=== PATIENT | male | born 1950 | race Caucasian/White ===

== ENCOUNTER → 2017-09-01 12:08 | Outpatient (CLI) | payer MEDICARE, SELFPAY ==
--- NOTE | 2017-09-01 12:11 | RAD_ITS ---
STUDY: X-RAY CHEST REASON FOR EXAM: Male, 66 years old. Pneumonia TECHNIQUE: PA and lateral views of the chest. COMPARISON: 05/23/2017. CT chest 07/01/2017 FINDINGS: There is a stable right subclavian approach multilead permanent pacemaker. Stable hyperinflation. There is no demonstrated pleural abnormality. Normal size heart. Normal mediastinum and paige. Normal visualized pulmonary arteries. There is atherosclerotic calcification of the aortic arch with tortuosity. There are diffuse degenerative changes of the visualized thoracic spine. Normal visualized ribs, clavicles, and shoulders. There is no demonstrated abnormality of the visualized soft tissue structures of the upper abdomen. RAD/Chest PA and Lateral IMPRESSION: No acute cardiopulmonary disease. No significant interval change. Electronically Signed: Janet Martins MD at 3:00 EST , Service support ,
== END ==
PROVIDERS: Family Provider Family Medicine; PCP Family Medicine; Visit Provider Family Medicine
DX: J18.9 Pneumonia, unspecified organism (principal)
CPT/HCPCS: 71046

== ENCOUNTER 2017-09-10 10:25 | Emergency (ER) | payer MEDICARE, SELFPAY ==
[2017-09-10 10:27] VITALS: BP 105/60; PULSE 77; RESP 16; TEMP 37.4; O2SAT 97; BMI 26.4
--- NOTE | 2017-09-10 10:47 | ED.DCSUM_ITS ---
- ER Visit Summary Date of Service: 09/10/17 Chief Complaint: Cough History of Present Illness: The patient is a 66 M who has had a cough for about a month. He states it is a mildly, occasionally productive cough. He has been seen by his PCP and urgent care for this. He has been on multiple medications. He has been on Tessalon, doxycycline, Levaquin, prednisone and promethazine. His cough still persists. He had a chest x-ray 1 week ago that was read as unremarkable. He denies a fever. He does have a history of COPD. He takes budesonide at home. He has had albuterol previously but he states it does not help. Physical Examination: Vital signs reviewed. HEENT exam unremarkable. Heart is regular rate and rhythm without murmurs. Lungs are clear to auscultation. Abdomen is soft and nontender. Extremities reveal no edema. Skin exam normal. Neurologic exam normal. Test Results: I reviewed the patient's chest x-ray from September 01 and it was unremarkable. Emergency Department Course and Treatment: Patient's lung sounds still are unremarkable. I do not feel he requires another chest x-ray. He has not had a fever. Treatment Plan: At this point I do not feel he requires any more antibiotics. I reviewed pulmonary function testing from 1 year ago. Showed very mild asthma. I will give him Mucinex D as well as a cough syrup. He can continue the Tessalon at home. He will call us on a neurologist today for follow-up. Disposition: Discharge Impression: Cough This note was generated with [employer] dictation software. It may contain incorrect words, spelling, and punctuation that were not noted in review of the chart prior to signing ED Disposition - Plan for ED Patient: Chief Complaint: Cough Referrals: Paresh Carranza MD [Primary Care Provider] -
--- NOTE | 2017-09-10 10:48 | ED.DEP ---
ED Disposition - Plan for ED Patient: Disposition: Home or Assisted Living Chief Complaint: Cough Instructions: ED Upper Resp Infec No Abx Tx Prescriptions: Guaifenesin/Pseudoephedrne HCl [Mucinex D ER 1,200-120 mg Tab] 1 ea PO BID #14 tab.er.12h Dextromethorphan HBr [Tussin Cough] 30 mg PO TID #1 syrup Referrals: Paresh Carranza MD [Primary Care Provider] -
[2017-09-10 11:10] VITALS: PULSE 78; RESP 16; O2SAT 97
== END 2017-09-10 11:10 | disposition home or self-care (01) ==
LOC: ED 10:53
PROVIDERS: Emergency Provider Emergency Medicine; Family Provider Family Medicine; PCP Family Medicine
DX: R05 Cough (principal); J44.9 Chronic obstructive pulmonary disease, unspecified; I25.10 Atherosclerotic heart disease of native coronary artery without angina pectoris; Z95.0 Presence of cardiac pacemaker
CPT/HCPCS: 99282

== ENCOUNTER → 2017-09-15 09:21 | Outpatient (CLI) | payer MEDICARE, SELFPAY ==
[2017-09-15 12:20] LABS: Absolute Lymphocyte Count 1.11 X10^3/ul (0.83-4.51); Absolute Neutrophil Count 2.2 X10^3/uL (2.0-7.7); Basophil# 0.01 X10^3/uL; Basophil% 0.3 % (0-1); Eosinophil# 0.01 X10^3/uL; Eosinophils% 0.3 % (0-5); Hematocrit 45.9 % (40-54); Lymphocyte # 1.11 X10^3/ul (4.0); Lymphocyte % 29.7 % (19-41); Mean Corp Hgb Conc 34.9 g/gl (32-36); Mean Corpuscular Hgb 32.7 pg (27.0-32.0); Mean Corpuscular Volume 93.7 fL (80-94); Mean Platelet Vol. 9.8 fl (6.2-12.0); Monocyte# 0.38 X10^3/uL; Monocyte% 10.2 % (0-10); Neutrophil # 2.22 X10^3/uL (2.7-7.7); Neutrophil % 59.2 % (47-70); Platelet Count 199 K/mm3 (150-450); RBC Distribution Width CV 14.2 % (11.6-14.6); RBC Distribution Width SD 47.1 fl (35.1-43.9); White Blood Count 3.7 K/mm3 (4.4-11.0)
[2017-09-15 12:23] LABS: POSITIVE COUNT NO; POSITIVE DIFFERENTIAL NO; POSITIVE MORPHOLOGY NO
[2017-09-15 12:28] LABS: ALB/GLOB Ratio 1.1 RATIO (0.9-2.4); AST(SGOT) 23 U/L (15-37); Alanine Aminotransfer ALT/SGPT 34 U/L (16-61); Albumin, Serum 3.7 g/dL (3.2-5.0); Alkaline Phosphatase 80 U/L (45-117); Anion Gap 7 (5-15); BUN 23 mg/dL (7-18); BUN/Creat Ratio 18.7 RATIO (10-20); Bilirubin, Direct 0.13 mg/dL (0.00-0.30); Calcium,Total 8.8 mg/dL (8.5-10.1); Chloride 102 mmol/L (98-107); Cholesterol 119 mg/dL (200); Creatinine, Serum 1.23 mg/dL (0.70-1.30); EST Glomerular Filtration Rate 62 mL/min (>60); Est Glom Filt Rate - Afr Amer 76 mL/min (>60); Globulin 3.4 g/dL (2.2-4.2); Glucose 86 mg/dL (74-106); High Density Lipoprotein 40 mg/dL; Potassium 3.8 mmol/L (3.5-5.1); Protein, Total 7.1 g/dL (6.4-8.2); Sodium Level 138 mmol/L (136-145); Triglycerides 90 mg/dL; Very Low Density Lipoprotein 18 mg/dL (5-40)
== END ==
PROVIDERS: Family Provider Family Medicine; PCP Family Medicine; Visit Provider Nurse Practitioner Family
DX: E78.5 Hyperlipidemia, unspecified (principal); Z79.899 Other long term (current) drug therapy
CPT/HCPCS: 80053; 80061; 82248; 85025

== ENCOUNTER → 2017-12-20 09:09 | Outpatient (CLI) | payer MEDICARE, SELFPAY ==
[2017-12-20 10:06] LABS: Absolute Lymphocyte Count 0.93 X10^3/ul (0.83-4.51); Absolute Neutrophil Count 3.1 X10^3/uL (2.0-7.7); Basophil# 0.02 X10^3/uL; Basophil% 0.4 % (0-1); Hematocrit 41.2 % (40-54); Hemoglobin 13.9 g/dl (13.0-16.5); Lymphocyte # 0.93 X10^3/ul (4.0); Lymphocyte % 18.9 % (19-41); Mean Corp Hgb Conc 33.7 g/gl (32-36); Mean Corpuscular Hgb 32.3 pg (27.0-32.0); Mean Corpuscular Volume 95.6 fL (80-94); Monocyte# 0.75 X10^3/uL; Monocyte% 15.2 % (0-10); Neutrophil # 3.12 X10^3/uL (2.7-7.7); Neutrophil % 63.5 % (47-70); POSITIVE COUNT NO; POSITIVE DIFFERENTIAL NO; POSITIVE MORPHOLOGY NO; Platelet Count 176 K/mm3 (150-450); RBC Distribution Width CV 15.1 % (11.6-14.6); RBC Distribution Width SD 52.1 fl (35.1-43.9); Red Blood Count 4.31 M/mm3 (4.6-6.2); White Blood Count 4.9 K/mm3 (4.4-11.0)
[2017-12-20 10:35] LABS: ALB/GLOB Ratio 1.4 RATIO (0.9-2.4); AST(SGOT) 24 U/L (15-37); Alanine Aminotransfer ALT/SGPT 25 U/L (16-61); Albumin, Serum 3.7 g/dL (3.2-5.0); Alkaline Phosphatase 72 U/L (45-117); Anion Gap 5 (5-15); BUN 16 mg/dL (7-18); BUN/Creat Ratio 14.3 RATIO (10-20); Calcium,Total 8.8 mg/dL (8.5-10.1); Chloride 106 mmol/L (98-107); Creatinine, Serum 1.12 mg/dL (0.70-1.30); EST Glomerular Filtration Rate 70 mL/min (>60); Est Glom Filt Rate - Afr Amer 84 mL/min (>60); Globulin 2.7 g/dL (2.2-4.2); Glucose 89 mg/dL (74-106); Potassium 4.3 mmol/L (3.5-5.1); Protein, Total 6.4 g/dL (6.4-8.2); Sodium Level 141 mmol/L (136-145)
== END ==
PROVIDERS: Family Provider Family Medicine; PCP Family Medicine; Visit Provider Internal Medicine Rheumatology
DX: M06.4 Inflammatory polyarthropathy (principal); M21.40 Flat foot [pes planus] (acquired), unspecified foot; M47.892 Other spondylosis, cervical region; M47.894 Other spondylosis, thoracic region; M47.897 Other spondylosis, lumbosacral region; I10 Essential (primary) hypertension; I25.10 Atherosclerotic heart disease of native coronary artery without angina pectoris; E87.5 Hyperkalemia; I48.91 Unspecified atrial fibrillation; G47.33 Obstructive sleep apnea (adult) (pediatric)
CPT/HCPCS: 36415; 80053; 85025

== ENCOUNTER → 2018-03-17 07:03 | Outpatient (CLI) | payer MEDICARE, SELFPAY ==
[2018-03-17 10:40] LABS: Absolute Lymphocyte Count 1.26 X10^3/ul (0.83-4.51); Absolute Neutrophil Count 2.5 X10^3/uL (2.0-7.7); Basophil# 0.02 X10^3/uL; Basophil% 0.5 % (0-1); Eosinophil# 0.07 X10^3/uL; Eosinophils% 1.6 % (0-5); Hematocrit 41.7 % (40-54); Hemoglobin 13.8 g/dl (13.0-16.5); Lymphocyte # 1.26 X10^3/ul (4.0); Lymphocyte % 29.2 % (19-41); Mean Corp Hgb Conc 33.1 g/gl (32-36); Mean Corpuscular Hgb 32.4 pg (27.0-32.0); Mean Corpuscular Volume 97.9 fL (80-94); Mean Platelet Vol. 9.7 fl (6.2-12.0); Monocyte# 0.42 X10^3/uL; Monocyte% 9.7 % (0-10); Neutrophil # 2.54 X10^3/uL (2.7-7.7); Platelet Count 193 K/mm3 (150-450); RBC Distribution Width CV 14.2 % (11.6-14.6); RBC Distribution Width SD 50.7 fl (35.1-43.9); Red Blood Count 4.26 M/mm3 (4.6-6.2); White Blood Count 4.3 K/mm3 (4.4-11.0)
[2018-03-17 10:47] LABS: POSITIVE COUNT NO; POSITIVE DIFFERENTIAL NO; POSITIVE MORPHOLOGY NO
[2018-03-17 10:48] LABS: ALB/GLOB Ratio 1.4 RATIO (0.9-2.4); AST(SGOT) 21 U/L (15-37); Alanine Aminotransfer ALT/SGPT 27 U/L (16-61); Albumin, Serum 3.8 g/dL (3.2-5.0); Alkaline Phosphatase 66 U/L (45-117); Anion Gap 5 (5-15); BUN 20 mg/dL (7-18); BUN/Creat Ratio 17.9 RATIO (10-20); Bilirubin, Direct 0.19 mg/dL (0.00-0.30); Calcium,Total 9.1 mg/dL (8.5-10.1); Chloride 106 mmol/L (98-107); Cholesterol 95 mg/dL (200); Creatinine, Serum 1.12 mg/dL (0.70-1.30); EST Glomerular Filtration Rate 69 mL/min (>60); Est Glom Filt Rate - Afr Amer 84 mL/min (>60); Globulin 2.7 g/dL (2.2-4.2); Glucose 85 mg/dL (74-106); High Density Lipoprotein 51 mg/dL; Potassium 4.4 mmol/L (3.5-5.1); Protein, Total 6.5 g/dL (6.4-8.2); Sodium Level 142 mmol/L (136-145); Triglycerides 51 mg/dL; Very Low Density Lipoprotein 10 mg/dL (5-40)
== END ==
PROVIDERS: Nurse Practitioner Family; Family Provider Family Medicine; PCP Family Medicine; Visit Provider Internal Medicine Rheumatology
DX: M06.4 Inflammatory polyarthropathy (principal); M21.40 Flat foot [pes planus] (acquired), unspecified foot; M47.892 Other spondylosis, cervical region; M47.894 Other spondylosis, thoracic region; M47.897 Other spondylosis, lumbosacral region; I10 Essential (primary) hypertension; I25.10 Atherosclerotic heart disease of native coronary artery without angina pectoris; E78.5 Hyperlipidemia, unspecified; I48.91 Unspecified atrial fibrillation; G47.33 Obstructive sleep apnea (adult) (pediatric)
CPT/HCPCS: 36415; 80053; 80061; 82248; 85025

== ENCOUNTER → 2018-05-07 12:42 | Outpatient (CLI) | payer MEDICARE, SELFPAY ==
--- NOTE | 2018-05-07 13:02 | EKG12_ITS ---
Test Reason : PRE OP Blood Pressure : / mmHG Vent. Rate : 060 BPM Atrial Rate : 060 BPM P-R Int : 192 ms QRS Dur : 098 ms QT Int : 386 ms P-R-T Axes : 000 046 062 degrees QTc Int : 386 ms Electronic atrial pacemaker Confirmed by ALAN AMBROSIO, HOME ([id number]), material expeditor SEJAL NULL ([id number] on 05/11/2018 2:09:11 PM Referred By: POLINA LARA Confirmed By:HOME PHILLIPS MD
[2018-05-07 13:21] LABS: Hematocrit 40.3 % (40-54)
== END ==
PROVIDERS: Family Provider Family Medicine; PCP Family Medicine
DX: I10 Essential (primary) hypertension (principal); M06.9 Rheumatoid arthritis, unspecified; Z95.0 Presence of cardiac pacemaker; J45.909 Unspecified asthma, uncomplicated
CPT/HCPCS: 36415; 85014; 85018; 93005

== ENCOUNTER → 2018-06-15 09:09 | Outpatient (CLI) | payer MEDICARE, SELFPAY ==
[2018-06-15 10:32] LABS: Absolute Lymphocyte Count 1.32 X10^3/ul (0.83-4.51); Absolute Neutrophil Count 5.4 X10^3/uL (2.0-7.7); Basophil# 0.03 X10^3/uL; Basophil% 0.4 % (0-1); Eosinophil# 0.06 X10^3/uL; Eosinophils% 0.8 % (0-5); Hematocrit 44.1 % (40-54); Hemoglobin 14.8 g/dl (13.0-16.5); Lymphocyte # 1.32 X10^3/ul (4.0); Mean Corp Hgb Conc 33.6 g/gl (32-36); Mean Corpuscular Volume 98.2 fL (80-94); Mean Platelet Vol. 9.5 fl (6.2-12.0); Monocyte# 0.98 X10^3/uL; Monocyte% 12.6 % (0-10); Neutrophil # 5.35 X10^3/uL (2.7-7.7); Neutrophil % 69.1 % (47-70); Platelet Count 214 K/mm3 (150-450); RBC Distribution Width CV 14.9 % (11.6-14.6); RBC Distribution Width SD 52.1 fl (35.1-43.9); Red Blood Count 4.49 M/mm3 (4.6-6.2); White Blood Count 7.8 K/mm3 (4.4-11.0)
[2018-06-15 10:40] LABS: POSITIVE COUNT NO; POSITIVE DIFFERENTIAL NO; POSITIVE MORPHOLOGY NO
[2018-06-15 10:56] LABS: ALB/GLOB Ratio 1.3 RATIO (0.9-2.4); AST(SGOT) 17 U/L (15-37); Alanine Aminotransfer ALT/SGPT 26 U/L (16-61); Albumin, Serum 3.7 g/dL (3.2-5.0); Alkaline Phosphatase 72 U/L (45-117); Anion Gap 8 (5-15); BUN 26 mg/dL (7-18); BUN/Creat Ratio 22.6 RATIO (10-20); Calcium,Total 9.2 mg/dL (8.5-10.1); Chloride 103 mmol/L (98-107); Creatinine, Serum 1.15 mg/dL (0.70-1.30); EST Glomerular Filtration Rate 67 mL/min (>60); Est Glom Filt Rate - Afr Amer 81 mL/min (>60); Globulin 2.9 g/dL (2.2-4.2); Glucose 88 mg/dL (74-106); Potassium 4.3 mmol/L (3.5-5.1); Protein, Total 6.6 g/dL (6.4-8.2); Sodium Level 141 mmol/L (136-145)
== END ==
PROVIDERS: Family Provider Family Medicine; PCP Family Medicine; Referring Provider Internal Medicine Rheumatology; Visit Provider Internal Medicine Rheumatology
DX: M06.4 Inflammatory polyarthropathy (principal); M21.40 Flat foot [pes planus] (acquired), unspecified foot; M47.892 Other spondylosis, cervical region; M47.894 Other spondylosis, thoracic region; M47.897 Other spondylosis, lumbosacral region; I10 Essential (primary) hypertension; I25.10 Atherosclerotic heart disease of native coronary artery without angina pectoris; E78.5 Hyperlipidemia, unspecified; I48.91 Unspecified atrial fibrillation; G47.33 Obstructive sleep apnea (adult) (pediatric)
CPT/HCPCS: 36415; 80053; 85025

== ENCOUNTER → 2018-09-17 10:56 | Outpatient (CLI) | payer MEDICARE, SELFPAY ==
[2018-08-20 14:24] VITALS: BMI 24.7
[2018-09-17 12:25] LABS: Absolute Lymphocyte Count 1.17 X10^3/ul (0.83-4.51); Absolute Neutrophil Count 2.8 X10^3/uL (2.0-7.7); Basophil# 0.01 X10^3/uL; Basophil% 0.2 % (0-1); Eosinophil# 0.02 X10^3/uL; Eosinophils% 0.4 % (0-5); Hematocrit 45.7 % (40-54); Hemoglobin 15.2 g/dl (13.0-16.5); Lymphocyte # 1.17 X10^3/ul (4.0); Lymphocyte % 25.5 % (19-41); Mean Corp Hgb Conc 33.3 g/gl (32-36); Mean Corpuscular Hgb 32.5 pg (27.0-32.0); Mean Corpuscular Volume 97.9 fL (80-94); Mean Platelet Vol. 9.6 fl (6.2-12.0); Monocyte# 0.61 X10^3/uL; Monocyte% 13.3 % (0-10); Neutrophil # 2.76 X10^3/uL (2.7-7.7); Neutrophil % 60.4 % (47-70); POSITIVE COUNT NO; POSITIVE DIFFERENTIAL NO; POSITIVE MORPHOLOGY NO; Platelet Count 199 K/mm3 (150-450); RBC Distribution Width CV 14.1 % (11.6-14.6); RBC Distribution Width SD 49.3 fl (35.1-43.9); Red Blood Count 4.67 M/mm3 (4.6-6.2); White Blood Count 4.6 K/mm3 (4.4-11.0)
[2018-09-17 12:50] LABS: ALB/GLOB Ratio 1.2 RATIO (0.9-2.4); AST(SGOT) 20 U/L (15-37); Alanine Aminotransfer ALT/SGPT 24 U/L (16-61); Albumin, Serum 3.6 g/dL (3.2-5.0); Alkaline Phosphatase 82 U/L (45-117); BUN 21 mg/dL (7-18); BUN/Creat Ratio 18.1 RATIO (10-20); Cholesterol 106 mg/dL (200); Creatinine, Serum 1.16 mg/dL (0.70-1.30); EST Glomerular Filtration Rate 67 mL/min (>60); Est Glom Filt Rate - Afr Amer 81 mL/min (>60); Globulin 3.1 g/dL (2.2-4.2); Glucose 84 mg/dL (74-106); Protein, Total 6.7 g/dL (6.4-8.2); Sodium Level 142 mmol/L (136-145); Triglycerides 75 mg/dL
[2018-09-17 12:51] LABS: Anion Gap 8 (5-15); Chloride 106 mmol/L (98-107); High Density Lipoprotein 43 mg/dL; Potassium 4.2 mmol/L (3.5-5.1); Very Low Density Lipoprotein 15 mg/dL (5-40)
== END ==
PROVIDERS: Nurse Practitioner Family; Family Provider Family Medicine; PCP Family Medicine; Referring Provider Internal Medicine Rheumatology; Visit Provider Internal Medicine Rheumatology
DX: M06.4 Inflammatory polyarthropathy (principal); M21.40 Flat foot [pes planus] (acquired), unspecified foot; M47.892 Other spondylosis, cervical region; M47.894 Other spondylosis, thoracic region; M47.897 Other spondylosis, lumbosacral region; I10 Essential (primary) hypertension; I25.10 Atherosclerotic heart disease of native coronary artery without angina pectoris; E78.5 Hyperlipidemia, unspecified; I48.91 Unspecified atrial fibrillation; G47.33 Obstructive sleep apnea (adult) (pediatric)
CPT/HCPCS: 80053; 80061; 82248; 85025

== ENCOUNTER 2018-09-26 13:40 | Emergency (ER) | payer MEDICARE, SELFPAY ==
[2018-08-20 14:24] VITALS: BMI 24.7
[2018-09-26 13:41] VITALS: BP 137/82; PULSE 60; RESP 16; TEMP 36.8; O2SAT 97; BMI 25.6
--- NOTE | 2018-09-26 13:58 | CT_ITS ---
STUDY: CT BRAIN WITHOUT CONTRAST REASON FOR EXAM: Male, 68 years old. Fell yesterday hitting head, patient takes Xarelto, positive loss of consciousness, bruising around both eyes RADIATION DOSAGE (If Supplied By Facility): CTDIvol = ( 44.99 ) mGy, DLP = ( 748.30 ) mGycm TECHNIQUE: Transaxial CT imaging of the brain was performed without administration of intravenous contrast material. Individualized dose optimization techniques were used for this CT. COMPARISON: 09/12/2015 FINDINGS: Right more than left periorbital soft tissue swelling extends into the frontal scalp. Normal calvarium. Normal size ventricles and extra-axial spaces for the patient's age. Normal white matter tracts of the cerebral hemispheres. Normal basal ganglia and thalami. Normal brainstem. Normal cerebellum. There is no intracranial hemorrhage. There are no findings of an acute ischemic infarction. Mild amount of mucosal thickening of the right maxillary sinus. No air-fluid levels. Atherosclerosis of the bilateral carotid siphons noted. CT/Brain/Head without Contrast IMPRESSION: 1. No acute intracranial hemorrhage or mass effect. 2. Frontal scalp and periorbital (right more than left) soft tissue swelling. No underlying fracture seen. Electronically Signed: Mick Watkins MD at 14:21 EST , Service support ,
--- NOTE | 2018-09-26 14:40 | ED.DCSUM_ITS ---
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 Patient was in his normal state of health. He does have history of atrial fibrillation and is status post pacemaker placement. He is fully anticoagulated on Xarelto. He states yesterday morning, he got up to let his dogs out. He states that he was going back through his garage and the dog ran after skunk. He lost his balance and fell forward. He struck his right forehead against the cement ground. He is unsure if he lost consciousness. He states that he had a large hematoma on his forehead, and overnight it has moved to around his eyes. He denies visual change. He denies any nausea or vomiting. He denies any weakness, numbness, tingling. Physical Examination: Vital signs reviewed General: Well-nourished, well-developed Head: Normocephalic, ecchymosis over the right forehead Eyes: Pupils equal and reactive, extraocular muscles intact, periorbital ecchymosis without evidence of entrapment. No hyphema. Neck, supple, no lymphadenopathy Heart: Regular rate and rhythm Respiratory: No distress, clear bilaterally Abdomen: Soft, nontender, nondistended, no peritoneal signs Back: Nontender Extremities: Nontender, no edema, no cords Skin: Normal color no rash Neuro: Alert and oriented, no focal or lateralizing deficits Test Results: [] Emergency Department Course and Treatment: The patient presents to the emergency department greater than 24 hours after mechanical fall. He does have periorbital ecchymosis, but no evidence of midface trauma, nasal septal hematoma, or hemotympanum. Patient underwent CT of his head. There is the periorbital ecchymosis, but no acute intracranial abnormalities. The patient did fall greater than 24 hours ago now has a normal head CT. I do feel he is safe for outpatient therapy. He will continue Tylenol and ice. He was counseled on concerning symptoms and reasons to return. He will be discharged home. Treatment Plan: [] Disposition: Discharge Impression: 1. Facial contusion status post fall This note was generated with [employer] software. It may contain incorrect words, spelling, and punctuation that were not noted in review of the chart prior to signing ED Disposition - Plan for ED Patient: Instructions: ED Contusion Face Referrals: Paresh Carranza MD [Primary Care Provider] -
[2018-09-26 14:47] VITALS: BP 137/76; PULSE 60; RESP 15; O2SAT 99
== END 2018-09-26 14:47 | disposition home or self-care (01) ==
LOC: ED 14:43
PROVIDERS: Emergency Provider Emergency Medicine; Family Provider Family Medicine; PCP Family Medicine
DX: S00.83XA Contusion of other part of head, initial encounter (principal); W01.0XXA Fall on same level from slipping, tripping and stumbling without subsequent striking against object, initial encounter; Y93.89 Activity, other specified; Y92.59 Other trade areas as the place of occurrence of the external cause; Y99.9 Unspecified external cause status; I48.91 Unspecified atrial fibrillation; Z95.0 Presence of cardiac pacemaker; Z79.01 Long term (current) use of anticoagulants; I25.10 Atherosclerotic heart disease of native coronary artery without angina pectoris; Z86.73 Personal history of transient ischemic attack (TIA), and cerebral infarction without residual deficits
CPT/HCPCS: 70450; 99282

== ENCOUNTER → 2018-12-08 09:45 | Outpatient (CLI) | payer MEDICARE, SELFPAY ==
[2018-06-24 08:31] VITALS: BMI 24.5
[2018-11-16 14:12] VITALS: BMI 25.2
--- NOTE | 2018-12-09 10:59 | PFT ---
INTRODUCTION: The patient is a 68-year-old male that presents for pulmonary function studies secondary to a diagnosis of shortness of breath. Respiratory therapy reports good patient effort. Bronchodilators were used during testing. INTERPRETATION: Forced expiration spirometry demonstrates no evidence of a large airways obstructive ventilatory defect. There was no significant response to aerosolized bronchodilators. Spirograms are of good quality and do not plateau indicating slow emptying of the lungs. Body plethysmography was performed and reveals lung volumes to be within normal limits. Diffusing capacity by single breath CO is also within normal limits. IMPRESSION: Essentially normal pulmonary function studies.
== END ==
PROVIDERS: Family Provider Family Medicine; PCP Family Medicine; Referring Provider Nurse Practitioner Acute Care; Visit Provider Nurse Practitioner Acute Care
DX: J45.909 Unspecified asthma, uncomplicated (principal)
CPT/HCPCS: 94060; 94726; 94729

== ENCOUNTER → 2018-12-15 09:02 | Outpatient (CLI) | payer MEDICARE, SELFPAY ==
[2018-11-16 14:12] VITALS: BMI 25.2
[2018-12-15 10:14] LABS: Absolute Lymphocyte Count 1.21 X10^3/ul (0.83-4.51); Absolute Neutrophil Count 3.4 X10^3/uL (2.0-7.7); Basophil# 0.03 X10^3/uL; Basophil% 0.6 % (0-1); Eosinophil# 0.04 X10^3/uL; Eosinophils% 0.8 % (0-5); Hematocrit 43.4 % (40-54); Hemoglobin 14.6 g/dl (13.0-16.5); Lymphocyte # 1.21 X10^3/ul (4.0); Lymphocyte % 23.8 % (19-41); Mean Corp Hgb Conc 33.6 g/gl (32-36); Mean Corpuscular Hgb 32.1 pg (27.0-32.0); Mean Corpuscular Volume 95.4 fL (80-94); Mean Platelet Vol. 9.4 fl (6.2-12.0); Monocyte# 0.42 X10^3/uL; Monocyte% 8.3 % (0-10); Neutrophil # 3.38 X10^3/uL (2.7-7.7); Neutrophil % 66.3 % (47-70); Platelet Count 212 K/mm3 (150-450); RBC Distribution Width CV 14.4 % (11.6-14.6); RBC Distribution Width SD 48.7 fl (35.1-43.9); Red Blood Count 4.55 M/mm3 (4.6-6.2); White Blood Count 5.1 K/mm3 (4.4-11.0)
[2018-12-15 10:24] LABS: POSITIVE COUNT NO; POSITIVE DIFFERENTIAL NO; POSITIVE MORPHOLOGY NO
[2018-12-15 10:40] LABS: ALB/GLOB Ratio 1.5 RATIO (0.9-2.4); AST(SGOT) 22 U/L (15-37); Alanine Aminotransfer ALT/SGPT 25 U/L (16-61); Albumin, Serum 3.7 g/dL (3.2-5.0); Alkaline Phosphatase 68 U/L (45-117); Anion Gap 3 (5-15); BUN 16 mg/dL (7-18); BUN/Creat Ratio 13.4 RATIO (10-20); Calcium,Total 8.8 mg/dL (8.5-10.1); Chloride 105 mmol/L (98-107); Creatinine, Serum 1.19 mg/dL (0.70-1.30); EST Glomerular Filtration Rate 65 mL/min (>60); Est Glom Filt Rate - Afr Amer 78 mL/min (>60); Globulin 2.5 g/dL (2.2-4.2); Glucose 96 mg/dL (74-106); Potassium 4.5 mmol/L (3.5-5.1); Protein, Total 6.2 g/dL (6.4-8.2); Sodium Level 139 mmol/L (136-145)
== END ==
PROVIDERS: Family Provider Family Medicine; PCP Family Medicine; Referring Provider Internal Medicine Rheumatology; Visit Provider Internal Medicine Rheumatology
DX: M06.4 Inflammatory polyarthropathy (principal); M21.40 Flat foot [pes planus] (acquired), unspecified foot; M47.892 Other spondylosis, cervical region; M47.894 Other spondylosis, thoracic region; M47.897 Other spondylosis, lumbosacral region; I10 Essential (primary) hypertension; I25.10 Atherosclerotic heart disease of native coronary artery without angina pectoris; E78.5 Hyperlipidemia, unspecified; I48.91 Unspecified atrial fibrillation; G47.33 Obstructive sleep apnea (adult) (pediatric)
CPT/HCPCS: 36415; 80053; 85025

== ENCOUNTER → 2018-12-24 07:47 | Outpatient (CLI) | payer MEDICARE, SELFPAY ==
[2018-11-16 14:12] VITALS: BMI 25.2
[2018-12-15 09:50] VITALS: BMI 25.7
--- NOTE | 2018-12-24 07:48 | ECHOD_ITS ---
Reason For Study: CAD/ASHD Procedure This was a 2D Doppler, Color Flow transthoracic echocardiogram. 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 Exam performed in department. Left Ventricle Normal size and thickness. The estimated ejection fraction is 75 %. Stage 1 diastolic dysfunction. No regional wall motion abnormalities noted. Right Ventricle Normal size and thickness. ICD or pacer leads identified within the right ventricle. Normal systolic function. Atria Normal left atrium. Normal right atrium. Normal atrial septum. Mitral Valve The mitral valve is structurally normal. No prolapse or stenosis seen. Tricuspid Valve Normal tricuspid valve. Trivial tricuspid valve insufficiency. Right ventricular systolic pressure estimated to be 25 mmHg. Aortic Valve Trisinus/trileaflet aortic valve. Mild diffuse aortic valve thickening. There is no aortic stenosis. Pulmonic Valve Normal pulmonic valve. Great Vessels Normal aortic root. Normal arch. Normal inferior vena cava. Inferior vena cava collapse with sniff. Pericardium/Pleural No pericardial effusion. MMode/2D Measurements & Calculations LVIDd: 4.2 cm IVSd: 1.1 cm Ao root diam: 3.7 cm LVIDs: 2.3 cm LVPWd: 1.0 cm RVDd: 3.8 cm FS: 45.5 % LAV(MOD-bp): 45.8 ml LA A4 area: 18.1 cm2 RA A4 area: 13.8 cm2 LAV(MOD-bp) Indexed: 24.0 ml/m2 LAV(MOD-sp2): 42.4 ml LAV(MOD-sp4): 49.9 ml Time Measurements MV dec time: 0.22 sec Doppler Measurements & Calculations MV E max luis: 71.7 cm/sec Lat Peak E' Luis: 10.1 cm/sec Med Peak E' Luis: 9.8 cm/sec MV A max luis: 85.7 cm/sec E/E' lat: 7.1 E/E' med: 7.3 MV E/A: 0.84 MV V2 max: 106.9 cm/sec MV P1/2t max luis: 86.7 cm/sec Ao V2 max: 113.9 cm/sec MV max P.6 mmHg MV P1/2t: 98.6 msec Ao max P.2 mmHg MV V2 mean: 53.2 cm/sec MV dec slope: 257.3 cm/sec2 Ao V2 mean: 72.9 cm/sec MV mean P.4 mmHg MVA(P1/2t): 2.2 cm2 Ao mean P.4 mmHg MV V2 VTI: 34.4 cm Ao V2 VTI: 24.1 cm LV V1 max: 102.6 cm/sec PA V2 max: 98.2 cm/sec TR max luis: 220.6 cm/sec LV V1 max P.2 mmHg TR max P.5 mmHg LV V1 mean P.7 mmHg LV V1 mean: 57.9 cm/sec LV V1 VTI: 23.3 cm Interpretation Summary The estimated ejection fraction is 75 %. Stage 1 diastolic dysfunction. Trivial tricuspid valve insufficiency. Right ventricular systolic pressure estimated to be 25 mmHg. Compared to echo report dated 07/15/2013, no appreciable changes noted. Ordering Physician: Syd Hollingsworth Referring Physician: Syd Hollingsworth Performed By: José Miguel Boggs RCS
== END ==
PROVIDERS: Family Provider Family Medicine; PCP Family Medicine; Referring Provider Internal Medicine Cardiovascular Disease; Visit Provider Internal Medicine Cardiovascular Disease
DX: I25.10 Atherosclerotic heart disease of native coronary artery without angina pectoris (principal); I25.2 Old myocardial infarction; Z95.5 Presence of coronary angioplasty implant and graft; I48.0 Paroxysmal atrial fibrillation; I49.5 Sick sinus syndrome
CPT/HCPCS: 93306

== ENCOUNTER → 2018-12-29 09:50 | Outpatient (CLI) | payer MEDICARE, SELFPAY ==
[2018-11-16 14:12] VITALS: BMI 25.2
[2018-12-15 09:50] VITALS: BMI 25.7
--- NOTE | 2018-12-29 09:52 | STE_ITS ---
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 Stress Echo Wall motion Data Resting WM Intermediate WM Stress WM Resting Wall Motion Wall Motion Stress No regional wall motion No regional wall motion abnormalities noted. abnormalities noted. EKG Data The baseline ECG displays normal sinus rhythm. The patient exercised according to the regular John protocol for a total duration of 9:45. The maximum heart rate attained was 136 beats per minute. This was 89% of maximum predicted heart rate. The patient exercised into stage 4 of the John protocol. During stress, there were no ST or T wave changes noted to suggest ischemia. No clinical angina was noted. No arrhythmias noted. Interpretation Summary The estimated ejection fraction is 65 %. Normal, adequate, treadmill echocardiogram. Negative for ischemia by EKG and echocardiographic criteria. No anginal symptoms noted. No arrhythmias noted. Appropriate blood pressure response to exercise. Average exercise capacity for age. Test terminated due to target heart rate achieved and leg discomfort. No complications. Final LVEF is 75%. Ordering Physician: Syd Hollingsworth MD Referring Physician: Syd Hollingsworth Performed By: Adrienne Anderson RDCS
== END ==
PROVIDERS: Family Provider Family Medicine; PCP Family Medicine; Referring Provider Internal Medicine Cardiovascular Disease; Visit Provider Internal Medicine Cardiovascular Disease
DX: I25.10 Atherosclerotic heart disease of native coronary artery without angina pectoris (principal); I49.5 Sick sinus syndrome; I48.0 Paroxysmal atrial fibrillation; Z95.0 Presence of cardiac pacemaker; I25.2 Old myocardial infarction; Z95.5 Presence of coronary angioplasty implant and graft
CPT/HCPCS: 93017; 93350; 98960; G0463

== ENCOUNTER → 2019-03-20 09:03 | Outpatient (CLI) | payer MEDICARE, OTHER, SELFPAY ==
[2018-12-15 09:50] VITALS: BMI 25.7
[2019-03-20 10:20] LABS: Absolute Lymphocyte Count 1.23 X10^3/uL (0.83-4.51); Absolute Neutrophil Count 4.7 X10^3/uL (2.0-7.7); Basophil# 0.03 X10^3/uL; Basophil% 0.4 % (0-1); Eosinophil# 0.06 X10^3/uL; Eosinophils% 0.9 % (0-5); Hematocrit 45.1 % (40-54); Lymphocyte # 1.23 X10^3/ul (4.0); Lymphocyte % 17.8 % (19-41); Mean Corp Hgb Conc 33.3 g/dL (32-36); Mean Corpuscular Hgb 32.5 pg (27.0-32.0); Mean Corpuscular Volume 97.6 fL (80-94); Mean Platelet Vol. 9.3 fl (6.2-12.0); Monocyte# 0.87 X10^3/uL; Monocyte% 12.6 % (0-10); NRBC Flagged by Analyzer 0 % (0-5); Platelet Count 211 K/mm3 (150-450); RBC Distribution Width CV 14.6 % (11.6-14.6); RBC Distribution Width SD 51.9 fl (35.1-43.9); Red Blood Count 4.62 M/mm3 (4.6-6.2); White Blood Count 6.9 K/mm3 (4.4-11.0)
[2019-03-20 10:43] LABS: ALB/GLOB Ratio 1.3 RATIO (0.9-2.4); AST(SGOT) 22 U/L (15-37); Alanine Aminotransfer ALT/SGPT 23 U/L (16-61); Albumin, Serum 3.8 g/dL (3.2-5.0); Alkaline Phosphatase 77 U/L (45-117); Anion Gap 5 (5-15); BUN 22 mg/dL (7-18); BUN/Creat Ratio 18.2 RATIO (10-20); Bilirubin, Direct 0.23 mg/dL (0.00-0.30); Chloride 106 mmol/L (98-107); Cholesterol 117 mg/dL (200); Creatinine, Serum 1.21 mg/dL (0.70-1.30); EST Glomerular Filtration Rate 63 mL/min (>60); Est Glom Filt Rate - Afr Amer 77 mL/min (>60); Glucose 81 mg/dL (74-106); High Density Lipoprotein 58 mg/dL; Potassium 4.5 mmol/L (3.5-5.1); Protein, Total 6.8 g/dL (6.4-8.2); Sodium Level 142 mmol/L (136-145); Triglycerides 46 mg/dL; Very Low Density Lipoprotein 9 mg/dL (5-40)
== END ==
PROVIDERS: Nurse Practitioner Family; Family Provider Family Medicine; PCP Family Medicine; Referring Provider Internal Medicine Rheumatology; Visit Provider Internal Medicine Rheumatology
DX: I10 Essential (primary) hypertension (principal); I25.10 Atherosclerotic heart disease of native coronary artery without angina pectoris; Z95.5 Presence of coronary angioplasty implant and graft
CPT/HCPCS: 36415; 80053; 80061; 82248; 85025

== ENCOUNTER → 2019-06-15 09:43 | Outpatient (CLI) | payer MEDICARE, OTHER, SELFPAY ==
[2019-06-15 08:02] VITALS: BMI 26.6
[2019-06-15 10:17] LABS: Absolute Lymphocyte Count 1.39 X10^3/uL (0.83-4.51); Absolute Neutrophil Count 5.8 X10^3/uL (2.0-7.7); Basophil# 0.04 X10^3/uL; Basophil% 0.5 % (0-1); Eosinophil# 0.02 X10^3/uL; Eosinophils% 0.3 % (0-5); Hematocrit 46.5 % (40-54); Hemoglobin 15.4 g/dL (13.0-16.5); Lymphocyte # 1.39 X10^3/ul (4.0); Lymphocyte % 17.9 % (19-41); Mean Corp Hgb Conc 33.1 g/dL (32-36); Mean Corpuscular Hgb 32.8 pg (27.0-32.0); Mean Corpuscular Volume 99.1 fL (80-94); Mean Platelet Vol. 9.6 fl (6.2-12.0); Monocyte# 0.49 X10^3/uL; Monocyte% 6.3 % (0-10); NRBC Flagged by Analyzer 0 % (0-5); Neutrophil # 5.81 X10^3/uL (2.7-7.7); Neutrophil % 74.7 % (47-70); Platelet Count 233 K/mm3 (150-450); RBC Distribution Width CV 15.3 % (11.6-14.6); RBC Distribution Width SD 56.4 fl (35.1-43.9); Red Blood Count 4.69 M/mm3 (4.6-6.2); White Blood Count 7.8 K/mm3 (4.4-11.0)
[2019-06-15 10:43] LABS: ALB/GLOB Ratio 1.2 RATIO (0.9-2.4); AST(SGOT) 21 U/L (15-37); Alanine Aminotransfer ALT/SGPT 28 U/L (16-61); Albumin, Serum 3.9 g/dL (3.2-5.0); Alkaline Phosphatase 72 U/L (45-117); Anion Gap 6 (5-15); BUN 21 mg/dL (7-18); BUN/Creat Ratio 16.5 RATIO (10-20); Calcium,Total 9.2 mg/dL (8.5-10.1); Chloride 104 mmol/L (98-107); Creatinine, Serum 1.27 mg/dL (0.70-1.30); EST Glomerular Filtration Rate 60 mL/min (>60); Est Glom Filt Rate - Afr Amer 72 mL/min (>60); Globulin 3.2 g/dL (2.2-4.2); Glucose 95 mg/dL (74-106); Potassium 4.2 mmol/L (3.5-5.1); Protein, Total 7.1 g/dL (6.4-8.2); Sodium Level 140 mmol/L (136-145)
== END ==
PROVIDERS: Family Provider Family Medicine; PCP Family Medicine; Referring Provider Internal Medicine Rheumatology; Visit Provider Internal Medicine Rheumatology
DX: M06.4 Inflammatory polyarthropathy (principal); M21.40 Flat foot [pes planus] (acquired), unspecified foot; M47.892 Other spondylosis, cervical region; M47.894 Other spondylosis, thoracic region; M47.897 Other spondylosis, lumbosacral region; I10 Essential (primary) hypertension; I25.10 Atherosclerotic heart disease of native coronary artery without angina pectoris; E78.5 Hyperlipidemia, unspecified; I48.91 Unspecified atrial fibrillation; G47.33 Obstructive sleep apnea (adult) (pediatric)
CPT/HCPCS: 36415; 80053; 85025

== ENCOUNTER → 2019-06-30 10:31 | Outpatient (CLI) | payer MEDICARE, OTHER, SELFPAY ==
[2019-06-29 09:25] VITALS: BMI 26.6
--- NOTE | 2019-06-30 10:37 | RAD_ITS ---
STUDY: X-RAY - THORACIC SPINE REASON FOR EXAM: Male, 68 years old. TECHNIQUE: view(s) of the thoracic spine were obtained. COMPARISON: None. FINDINGS: Normal kyphosis of the thoracic spine. There is no substantial scoliosis. Normal thoracic vertebrae and endplates. Normal disc space heights. Moderate hypertrophic changes seen anterior aspect of the mid dorsal vertebral bodies. The soft tissue structures are unremarkable. RAD/Thoracic Spine 3 Views IMPRESSION: Normal x-ray examination of the thoracic spine. Electronically Signed: Dwight Ambrose, at 14:57 EST Tel , Service support ,
--- NOTE | 2019-06-30 10:40 | RAD_ITS ---
STUDY: X-RAY - CERVICAL SPINE REASON FOR EXAM: Male, 68 years old. TECHNIQUE: 4 view(s) of the cervical spine were obtained. COMPARISON: None FINDINGS: The vertebral bodies are of normal height. There is narrowing of the intervertebral discs between C3-4, C5-6 and C6-7, the disc is maintained at the level of C4-5. The facet joints and spinous processes are intact except of mild arthropathy of the facet joint at C2-3. The prevertebral space and air column are unremarkable. Calcification of ligamentum of Nuchii is present. Impression Mild narrowing of the disc space with the C3-4, C5-6 and C6-7 Electronically Signed: Dwight Ambrose, at 13:18 EST Tel , Service support , RAD/Cerv Spine 2 or 3 Views
--- NOTE | 2019-06-30 10:40 | RAD_ITS ---
STUDY: X-RAY - LUMBAR SPINE REASON FOR EXAM: Male, 68 years old. TECHNIQUE: 3 view(s) of the lumbar spine were obtained. COMPARISON: None FINDINGS: Normal lumbar lordosis. There is no substantial scoliosis. There is a normal alignment of the vertebrae. Normal vertebral bodies and endplates. Normal disc space heights. There is evidence of fluid spinal fusion with interpedicular screws between L4-L5 with disc spacer in between. There is a right. Minutes bone grafting seen. Laminectomy is present at the level of L4. The soft tissue structures are unremarkable. RAD/Lumbar Spine 2 or 3 Views IMPRESSION: Normal x-ray examination of the lumbar spine except for hardware transfixing the spine between L4-5 with interpedicular screws and disc spacer associated with laminectomy at L4.. Electronically Signed: Dwight Ambrose, at 14:55 EST Tel , Service support ,
== END ==
PROVIDERS: Family Provider Family Medicine; PCP Family Medicine; Referring Provider Anesthesiology Pain Medicine; Visit Provider Anesthesiology Pain Medicine
DX: M54.2 Cervicalgia (principal); M54.9 Dorsalgia, unspecified
CPT/HCPCS: 72040; 72072; 72100

== ENCOUNTER 2019-07-29 14:04 | Inpatient (IN) | payer MEDICARE, OTHER, SELFPAY ==
[2019-06-29 09:25] VITALS: BMI 26.6
[2019-07-29] VITALS (7 sets, daily range): BP systolic 112–152; BP diastolic 68–87; PULSE 83–91; RESP 16–20; TEMP 37.1–37.6; O2SAT 95–99; BMI 26.4; BMI 25.5; BMI 25.6
--- NOTE | 2019-07-29 14:55 | RAD_ITS ---
STUDY: X-RAY CHEST REASON FOR EXAM: Male, 68 years old. Chest pain/pressure with nausea and vomiting. TECHNIQUE: Single frontal view of the chest. COMPARISON: September 01, 2017 FINDINGS: Stable mild hyperexpansion. There is no demonstrated pleural abnormality. Mild cardiomegaly with dual lead cardiac pacer unchanged. Normal mediastinum and paige. Normal visualized pulmonary arteries. Normal visualized aortic arch and descending thoracic aorta. Normal visualized thoracic spine. Normal visualized ribs, clavicles, and shoulders. There is no demonstrated abnormality of the visualized soft tissue structures of the upper abdomen. RAD/Chest 1 View (Portable) IMPRESSION: Stable chest with no acute superimposed finding. Electronically Signed: Polo Manzanares MD at 15:25 EST , Service support ,
--- NOTE | 2019-07-29 14:55 | EKG12_ITS ---
Test Reason : CP Blood Pressure : / mmHG Vent. Rate : 081 BPM Atrial Rate : 081 BPM P-R Int : 184 ms QRS Dur : 100 ms QT Int : 350 ms P-R-T Axes : 055 -05 055 degrees QTc Int : 406 ms Normal sinus rhythm Incomplete right bundle branch block Borderline ECG Confirmed by POLINA HERNANDEZ ([id number]), purchasing expeditor SEJAL NULL ([id number]) on 08/03/2019 3:03:37 PM Referred By: Jefferson Adair Confirmed By:POLINA HERNANDEZ
[2019-07-29] MEDS: Aspirin 81 MG TAB.CHEW 324 MG PO (15:09)
--- NOTE | 2019-07-29 15:09 | ED.DCSUM_ITS ---
History of Present Illness Chief Complaint: Chest Pain Informant: Patient Onset: Weeks - 1 week Context: Gradual Onset Timing: Waxes and wanes Current Severity: Mild Maximum Severity: Moderate Narrative: Patient presents with a one-week history of chest pressure. He states he has taken nitroglycerin 3 separate days in the past week. 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 Patient states that he feels like he has intermittent episodes of heart racing. He has a history of paroxysmal A. fib and is currently on Cardizem. He states his dose of Cardizem was increased about a month ago secondary to these frequent palpitations, but he is continued to have symptoms. He also complains of having some abdominal pressure with nausea and vomiting today. He states his abdomen feels bloated and he believes he is gained about 10 pounds in the last 2 months. He does report dyspnea with exertion. He believes his last stress test was in January of this year. He does have one prior cardiac stent that was placed in 2012. - Past Medical History (1) Asthma Status: Chronic (2) Atherosclerosis of coronary artery of [place] heart without angina pectoris Status: Chronic Comment: PCI-MELL-LAD (3) History of coronary artery stent placement Status: Chronic Comment: PCI-MELL-LAD (4) Hypertension Status: Chronic (5) BRANDON (obstructive sleep apnea) Status: Chronic Comment: CPAP 10 cm of water (6) Old myocardial infarction Status: Chronic (7) Paroxysmal atrial fibrillation Status: Chronic (8) Presence of cardiac pacemaker Status: Chronic (9) Rheumatoid arthritis Status: Chronic (10) Sick sinus syndrome Status: Chronic Past Medical History - Allergies and Home Meds Allergies/Adverse Reactions: Allergies Sulfa (Sulfonamide Antibiotics) Allergy (Mild, Verified 07/29/19 14:07) Rash clopidogrel [From Plavix] Adverse Reaction (Severe, Verified 07/29/19 14:07) Other - genetic nonresponder, needs brillinta metoprolol [From Lopressor] Adverse Reaction (Mild, Verified 07/29/19 14:07) - bronchospasm nystatin Adverse Reaction (Unknown, Verified 07/29/19 14:07) Unknown MEDICAL TAPE Adverse Reaction (Uncoded 07/29/19 14:07) Itching Primary Care Physician: Paresh Carranza MD [Primary Care Provider] - Doctors: Dr. Hollingsworth Prior records reviewed: Yes Surgical History: herniorrhaphy Lives: Spouse/ Significant Other Smoking Status: Never smoker Review of Systems General: Reports: Sweats. Denies: Chills Eyes: Denies: Visual changes - bilaterally ENT: Denies: Bilateral ear pain Cardiovascular: Reports: Chest pain, Palpitations Respiratory: Reports: Dyspnea. Denies: Cough Gastrointestinal: Reports: Abdominal pain, Nausea, Vomiting. Denies: Diarrhea Genitourinary: Denies: Dysuria Musculoskeletal: Denies: Back pain, Extremity Pain Skin: Denies: Rash Neurological: Denies: Headache Hematologic: Denies: Easy bruising, Easy bleeding Allergy: Denies: Uticaria Physical Exam Vital Signs/Narrative: Vital Signs Temp Pulse Resp BP Pulse Ox 07/29/19 14:05 98.8 F 83 16 136/81 H 97 Inital Vital Signs reviewed: Yes General: Well nourished, Well developed Head: Normocephalic ENT: Moist mucous membranes Neck: Supple Cardiovascular: Regular rate, Regular rhythm Respiratory: No distress, CTA bilaterally Abdomen: Soft, Nontender Extremities: Nontender Skin: Normal color, No rash Neurological: Alert, Oriented x3 Psychological: Normal affect Diagnostic/Tx/Re-eval Impressions Chest X-Ray 07/29/19 14:55 IMPRESSION: Stable chest with no acute superimposed finding. Electronically Signed: Polo Manzanares MD at 15:25 EST , Service support , 07/29/19 14:55 Chest 1 View (Portable) [RAD] Stat Laboratory Results 07/29/19 07/29/19 14:05 14:05 WBC 10.1 RBC 4.87 Hgb 16.2 Hct 47.7 MCV 97.9 H MCH 33.3 H MCHC 34.0 RDW Std Deviation 51.4 H RDW Coeff of Jessica 14.4 Plt Count 241 MPV 9.2 Immature Gran % (Auto) 0.400 Neut % (Auto) 88.3 H Lymph % (Auto) 4.2 L [place] % (Auto) 6.1 Eos % (Auto) 0.7 Baso % (Auto) 0.3 Absolute Neuts (auto) 8.9 H Absolute Lymphs (auto) 0.42 L Nucleated RBC % 0 Platelet Estimate ADEQUATE RBC Morphology NORM C+C Sodium 141 Potassium 4.2 Chloride 106 Carbon Dioxide 30.0 Anion Gap 5 BUN 30 H Creatinine 1.23 Estim Creat Clear Calc 57.48 Est GFR (MDRD) Af Amer 75 Est GFR (MDRD) Non-Af 62 BUN/Creatinine Ratio 24.4 H Glucose 133 H Calcium 9.3 Troponin I < 0.015 - EKG Initial EKG Interpretation: Sinus Rhythm - Sinus 81 with incomplete right bundle branch block. No acute ischemia. - Medical Decision Making Aspirin per chest pain protocol. On repeat evaluation he is resting comfortably. He was advised that I work and chest x-ray at this time is unremarkable. 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 Abdomen exam remains rather benign with no focal area of tenderness. Repeated abdominal exams will be needed. I will speak with hospitalist. ED Disposition - Plan for ED Patient: Disposition: Acute Care Hospital [facility] Diagnosis: Chest pain Referrals: Paresh Carranza MD [Primary Care Provider] -
[2019-07-29 15:16] LABS: Absolute Lymphocyte Count 0.42 X10^3/uL (0.83-4.51); Absolute Neutrophil Count 8.9 X10^3/uL (2.0-7.7); Basophil# 0.03 X10^3/uL; Basophil% 0.3 % (0-1); Differential Indicated SCAN CRITERIA MET; Eosinophil# 0.07 X10^3/uL; Eosinophils% 0.7 % (0-5); Hematocrit 47.7 % (40-54); Hemoglobin 16.2 g/dL (13.0-16.5); Lymphocyte # 0.42 X10^3/ul (4.0); Lymphocyte % 4.2 % (19-41); Mean Corpuscular Hgb 33.3 pg (27.0-32.0); Mean Corpuscular Volume 97.9 fL (80-94); Mean Platelet Vol. 9.2 fl (6.2-12.0); Monocyte# 0.61 X10^3/uL; Monocyte% 6.1 % (0-10); NRBC Flagged by Analyzer 0 % (0-5); Neutrophil # 8.89 X10^3/uL (2.7-7.7); Neutrophil % 88.3 % (47-70); POSITIVE DIFFERENTIAL YES; Platelet Count 241 K/mm3 (150-450); RBC Distribution Width CV 14.4 % (11.6-14.6); RBC Distribution Width SD 51.4 fl (35.1-43.9); Red Blood Count 4.87 M/mm3 (4.6-6.2); White Blood Count 10.1 K/mm3 (4.4-11.0)
[2019-07-29 15:19] LABS: BUN 30 mg/dL (7-18); Creatinine, Serum 1.23 mg/dL (0.70-1.30); EST Glomerular Filtration Rate 62 mL/min (>60); Estimated Creatinine Clearance 57.48 ml/min; Glucose 133 mg/dL (74-106)
[2019-07-29 15:20] LABS: Anion Gap 5 (5-15); BUN/Creat Ratio 24.4 RATIO (10-20); Calcium,Total 9.3 mg/dL (8.5-10.1); Chloride 106 mmol/L (98-107); Est Glom Filt Rate - Afr Amer 75 mL/min (>60); Potassium 4.2 mmol/L (3.5-5.1); Sodium Level 141 mmol/L (136-145)
[2019-07-29 15:47] LABS: Platelet Estimate ADEQUATE (ADEQ); Red Cell Morphology NORM C+C NORMAL (NORM C&C)
--- NOTE | 2019-07-29 17:48 | PCM.HP.STD ---
History of Present Illness Date of Admission: 07/29/19 Chief Complaint: Chest pain with pressure The patient is a 68 year old M with a PMH as below who presents with 1 week of worsening chest pain. He states that it started about 2 months ago and it is fairly constant in nature though does change in intensity. He has had to take nitroglycerin on 3 separate days this past week, and he says it did help with the pain a little bit. 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 Also associated with this, for about the last 2 months he is also been having abdominal pain with bloating that is intermittent as well as a 10 pound weight gain. He had some nausea and vomiting today though he has not noticed any changes in his bowel habits. He also has noticed some dyspnea on exertion and does not think that he would be able to do an exercise stress test like he was able to in January. He also reports nighttime urinary incontinence with 2 episodes in the last 2 months, he denies any dysuria or frequency. And he also has night sweats which started over the last couple of weeks. In the ER lab work was unremarkable with a normal troponin and normal white count, vital signs are stable with no fever, chest x-ray was unremarkable. 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) Medical History: Medical History (Last Reviewed 07/22/19 @ 09:42 by Tashia Cedeno) Sick sinus syndrome (Chronic) I49.5 Paroxysmal atrial fibrillation (Chronic) I48.0 Old myocardial infarction (Chronic) I25.2 Atherosclerosis of coronary artery of [place] heart without angina pectoris (Chronic) I25.10 PCI-MELL-LAD Hypertension (Chronic) I10 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) M50.221 Arthritis M19.90 Asthma J45.909 Axillary mass R22.30 BPH (benign prostatic hyperplasia) N40.0 CVA (cerebral vascular accident) I63.9 Carotid artery stenosis I65.29 DDD (degenerative disc disease) HLD (hyperlipidemia) E78.5 Obstructive sleep apnea G47.33 Shortness of breath R06.02 Sinus bradycardia R00.1 TIA (transient ischemic attack) G45.9 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 Allergies Sulfa (Sulfonamide Antibiotics) Allergy (Mild, Verified 07/29/19 14:07) Rash clopidogrel [From Plavix] Adverse Reaction (Severe, Verified 07/29/19 14:07) Other - genetic nonresponder, needs brillinta metoprolol [From Lopressor] Adverse Reaction (Mild, Verified 07/29/19 14:07) - bronchospasm nystatin Adverse Reaction (Unknown, Verified 07/29/19 14:07) Unknown MEDICAL TAPE Adverse Reaction (Uncoded 07/29/19 14:07) Itching Home Medications: Ambulatory Orders Medication Instructions Recorded duloxetine 20 mg capsule,delayed 20 mg PO DAILY cap 06/24/18 release nitroglycerin 0.4 mg sublingual 0.4 mg SUBLINGUAL Q5M PRN #25 tab 02/11/19 tablet diltiazem HCl 180 mg 180 mg PO DAILY #90 cap 06/10/19 capsule,extended release 24 hr methotrexate sodium 2.5 mg tablet 15 mg PO SA tab 06/10/19 rosuvastatin 20 mg tablet 20 mg PO DAILY #90 tab 06/10/19 ramipril 5 mg capsule 5 mg PO DAILY #90 cap 07/09/19 rivaroxaban 20 mg tablet 20 mg PO DAILY #30 tab 07/26/19 Aspirin E.C. [Ecotrin] 81 mg PO DAILY@1800 07/29/19 Folic Acid 2 mg PO DAILY 07/29/19 Surgical History: Surgical History (Last Reviewed 07/22/19 @ 09:42 by Tashia Cedeno) Presence of cardiac pacemaker (Chronic) Onset Date: ~12/08/12 Z95.0 History of coronary artery stent placement (Chronic) Onset Date: ~07/23/13 Z95.5 PCI-MELL-LAD H/O eye surgery Z98.890 for droopy eyelid 05/2018 History of herniorrhaphy Z98.890, Z87.19 History of left heart catheterization Onset Date: ~08/22/16 Z98.890 History of spinal surgery Z98.890 2014 Surgical History: herniorrhaphy Lives: Spouse/ Significant Other Smoking Status: Never smoker Alcohol: None Drugs: None - *Family History Maternal Family History: Family History (Last Reviewed 07/22/19 @ 09:42 by Tashia Cedeno) Brother CVA (cerebral vascular accident) Carotid artery stenosis Father CVA (cerebral vascular accident) Carotid artery stenosis Mother Stomach cancer Review of Systems Constitutional: Reports: Night Sweats, Weight Change - 10 pound weight gain. Denies: Chills, Fever HEENT: Denies: Head Aches, Sinus Congestion, Sinus Drainage Cardiovascular: Reports: Chest Pain, Chest Pressure. Denies: Palpitations Respiratory: Reports: Shortness of breath upon exertion. Denies: Cough, Shortness of breath at rest, Sputum production Gastrointestinal: Denies: Abdominal Pain, Nausea, Vomiting Genitourinary: Reports: Nocturia. Denies: Dysuria, Frequency Musculoskeletal: Denies: Joint Pain, Joint Tenderness Skin: Denies: Rash, Wounds Neurological: Denies: Numbness, Tingling, Focal weakness Psychiatric: Denies: Anxiety, Depression Hematologic/ Lymphatic: Denies: Easy Bruising, Easy Bleeding VTE Information - Inpt Only VTE Present on Admission: No Patient Problems: Active and Suspected Problems (Last Reviewed 07/22/19 @ 09:42 by Tashia Cedeno) Chest pain (Acute) - Physical Exam Vitals/I&O's: Vital Signs Temp Pulse Resp BP Pulse Ox 99.3 F H 88 16 152/87 H 97 07/29/19 17:11 07/29/19 17:11 07/29/19 17:11 07/29/19 17:11 07/29/19 17:11 Oxygen Delivery Method Room Air Weight: 173 lb 1.006 oz Body Mass Index (BMI) 25.5 General: Alert, Oriented x3, Cooperative, No apparent distress HEENT: Atraumatic, PERRLA, EOMI, Normocephalic Oral: Moist Mucosa Neck: Supple, No JVD Lungs: Clear to auscultation, Normal air movement, No rhonchi, No wheeze, No rales Cardiovascular: Regular rate, Regular Rhythm, Normal S1, Normal S2, No murmurs Abdomen: Soft, Non-Distended, No Hepato-splenomegaly, Tender - Dull achy tenderness in bilateral lower abdomen Extremities: No edema, Capillary Refill Less than 3 Seconds Skin: No rashes, No breakdown Neurological: Neuro grossly intact, Sensory exam intact to light touch and pain Psych/Mental Status: Normal Affect, Appropriate Laboratory Results 07/29/19 14:05: WBC 10.1, RBC 4.87, Hgb 16.2, Hct 47.7, MCV 97.9 H, MCH 33.3 H, MCHC 34.0, RDW Std Deviation 51.4 H, RDW Coeff of Jessica 14.4, Plt Count 241, MPV 9.2, Immature Gran % (Auto) 0.400, Neut % (Auto) 88.3 H, Lymph % (Auto) 4.2 L, [place] % (Auto) 6.1, Eos % (Auto) 0.7, Baso % (Auto) 0.3, Absolute Neuts (auto) 8.9 H, Absolute Lymphs (auto) 0.42 L, Nucleated RBC % 0, Platelet Estimate ADEQUATE, RBC Morphology NORM C+C 07/29/19 14:05: Sodium 141, Potassium 4.2, Chloride 106, Carbon Dioxide 30.0, Anion Gap 5, BUN 30 H, Creatinine 1.23, Estim Creat Clear Calc 57.48, Est GFR (MDRD) Af Amer 75, Est GFR (MDRD) Non-Af 62, BUN/Creatinine Ratio 24.4 H, Glucose 133 H, Calcium 9.3, Troponin I < 0.015 Current Medications Aspirin (Ecotrin) 81 mg PO DAILY@1800 [facility] Diltiazem HCl (Cardizem Cd) 180 mg PO DAILY [facility] Duloxetine HCl (Cymbalta) 20 mg PO DAILY [facility] Folic Acid (Folic Acid) 2 mg PO DAILY [facility] Methotrexate (Methotrexate) 15 mg PO SA [facility] Nitroglycerin (Nitrostat) 0.4 mg SUBLINGUAL Q5M PRN PRN Reason: CARDIAC/CHEST PAIN Non-Formulary Medication (Rosuvastatin Calcium) 20 mg PO DAILY [facility] Ramipril (Altace) 5 mg PO DAILY [facility] Rivaroxaban (Xarelto) 20 mg PO DAILY [facility] Sodium Chloride () 10 - 40 ml IV UD PRN PRN Reason: SALINE FLUSH Assessment/Plan All Active Problems (Last Reviewed 07/22/19 @ 09:42 by Tashia Cedeno) Chest pain (Acute) Candidiasis of mouth (Acute) Segmental and somatic dysfunction of cervical region (Acute) Segmental and somatic dysfunction of thoracic region (Acute) Segmental and somatic dysfunction of lumbar region (Acute) 1. Chest pain/CAD status post stent/WPW syndrome/sick sinus syndrome/HTN/HLD/A. fib -Has a pacemaker in place and is on Xarelto -We will consult cardiology, continue with aspirin -Will obtain serial troponin, stress echo in December was unremarkable -2D echo in December with an EF of 75% and stage I diastolic dysfunction -We will continue with ramipril, Crestor, and Cardizem 2. Depression -Stable -Continue with Cymbalta 3. Night sweats/nocturia/abdominal bloating -Unsure at the moment as to these constellation of symptoms -We will start with a KUB to evaluate his abdomen and his eyes his cardiac evaluation is negative may need to further investigate these with a CT scan of his abdomen and pelvis DVT: Xarelto Code Visit OBSV E&M: 80043 Initial observation care L3
--- NOTE | 2019-07-29 18:00 | RAD_ITS ---
STUDY: X-RAY - ABDOMEN/PELVIS REASON FOR EXAM: Male, 68 years old. Abdominal bloating. Chest pain. TECHNIQUE: AP supine and upright views of the abdomen and pelvis. COMPARISON: None. FINDINGS: Normal visualized lung bases. Pacer leads are seen in the heart. There are air-fluid levels within the colon without marked distention. No small bowel dilatation is noted. There is no demonstrated free abdominal air. The visualized liver, spleen and kidneys are grossly normal in size and morphology. Normal soft tissue structures. There is posterior fusion of L4-5. RAD/Abd Inc Decub and/or Erect IMPRESSION: Nonspecific bowel gas pattern without obvious obstruction. Electronically Signed: Filippo Johns DO at 20:44 EST Tel [phone], Service support ,
[2019-07-29] MEDS: DULoxetine Hcl 20 MG Capsule PO (18:37)
[2019-07-29] MEDS: Rivaroxaban 20 MG Tablet PO (18:37)
[2019-07-29] MEDS: Acetaminophen 325 MG Tablet 650 MG PO (21:36)
[2019-07-29] MEDS: Atorvastatin Calcium 40 MG Tablet PO (21:36)
[2019-07-30] VITALS (9 sets, daily range): BP systolic 104–138; BP diastolic 64–83; PULSE 60–89; RESP 15–16; TEMP 36.4–37.1; O2SAT 95–98
--- NOTE | 2019-07-30 05:46 | EKG12_ITS ---
Test Reason : CP ADMISSION Blood Pressure : / mmHG Vent. Rate : 087 BPM Atrial Rate : 087 BPM P-R Int : 186 ms QRS Dur : 104 ms QT Int : 324 ms P-R-T Axes : 043 002 042 degrees QTc Int : 389 ms Normal sinus rhythm Normal ECG When compared with ECG of 29-JUL-2019 14:07, MANUAL COMPARISON REQUIRED, DATA IS UNCONFIRMED Confirmed by POLINA HERNANDEZ ([id number]), photograph editor SEJAL NULL ([id number]) on 08/03/2019 3:12:14 PM Referred By: Jefferson Adair Confirmed By:POLINA HERNANDEZ
[2019-07-30 06:05] LABS: Absolute Lymphocyte Count 0.44 X10^3/uL (0.83-4.51); Absolute Neutrophil Count 6.1 X10^3/uL (2.0-7.7); Basophil# 0.02 X10^3/uL; Basophil% 0.3 % (0-1); Eosinophil# 0.03 X10^3/uL; Eosinophils% 0.4 % (0-5); Hematocrit 45.7 % (40-54); Hemoglobin 15.5 g/dL (13.0-16.5); Lymphocyte # 0.44 X10^3/ul (4.0); Mean Corp Hgb Conc 33.9 g/dL (32-36); Mean Corpuscular Hgb 32.6 pg (27.0-32.0); Monocyte# 0.75 X10^3/uL; Monocyte% 10.1 % (0-10); NRBC Flagged by Analyzer 0 % (0-5); Neutrophil # 6.13 X10^3/uL (2.7-7.7); Neutrophil % 82.9 % (47-70); POSITIVE DIFFERENTIAL YES; Platelet Count 199 K/mm3 (150-450); RBC Distribution Width CV 14.6 % (11.6-14.6); RBC Distribution Width SD 50.9 fl (35.1-43.9); Red Blood Count 4.76 M/mm3 (4.6-6.2); White Blood Count 7.4 K/mm3 (4.4-11.0)
[2019-07-30 06:37] LABS: Anion Gap 5 (5-15); BUN 28 mg/dL (7-18); BUN/Creat Ratio 25.2 RATIO (10-20); Calcium,Total 8.6 mg/dL (8.5-10.1); Chloride 104 mmol/L (98-107); Creatinine, Serum 1.11 mg/dL (0.70-1.30); EST Glomerular Filtration Rate 70 mL/min (>60); Est Glom Filt Rate - Afr Amer 85 mL/min (>60); Estimated Creatinine Clearance 63.69 ml/min; Glucose 109 mg/dL (74-106); Magnesium 1.8 mg/dL (1.6-2.6); Phosphorus 3.7 mg/dL (2.5-4.9); Potassium 3.9 mmol/L (3.5-5.1); Sodium Level 137 mmol/L (136-145); Thyroid Stim Hormone (TSH) 1.39 uIU/mL (0.358-3.74)
[2019-07-30 07:08] LABS: Differential Indicated SCAN CRITERIA MET
[2019-07-30] MEDS: Folic Acid 1 MG Tablet 2 MG PO (09:51)
[2019-07-30] MEDS: DULoxetine Hcl 20 MG Capsule PO (09:51)
[2019-07-30] MEDS: Ramipril 5 MG Capsule PO (09:51)
[2019-07-30] MEDS: dilTIAZem CD 180 MG Capsule PO (09:51)
--- NOTE | 2019-07-30 12:41 | CON.PCM_ITS ---
<Amisha Thompson M - Last Filed: 07/30/19 12:41> Problem List (1) Chest pain Status: Acute (2) Presence of cardiac pacemaker Status: Chronic (3) Paroxysmal atrial fibrillation Status: Chronic (4) Atherosclerosis of coronary artery of [place] heart without angina pectoris Status: Chronic Comment: PCI-MELL-LAD Reason for Consult Date of Consultation: 07/30/19 History of Present Illness: This is a 68-year-old gentleman that presented to the emergency room on July 29, 2019 with worsening chest discomfort and palpitations. Patient states that over the last 10 days he has noted that he has been more short of breath and has had more chest discomfort. He also has noted an increase in palpitations. He states that on Friday he did need to take 3 nitroglycerin pills to help with his chest discomfort. This was while he was a passenger in a car. He also states that during this time he noted his heart rate being irregular where he noted his heart rate is approximately 1 40-1 50. He is also concerned with some bloating that he has had. He states that his weight has gone up at home. It is difficult to get a timeframe on this. He does not have any lightheadedness or dizziness. He does not have any swelling in his ankles. He does not have any orthopnea. He does have a history of coronary artery disease with stenting to his LAD at [facility] in 2013. He also has a history of hypertension, hyperlipidemia, paroxysmal atrial fibrillation, Igvii-Xgjuowtgk-Fcsby, sick sinus syndrome requiring a pacemaker placement. Patient had previously been on flecainide for his atrial fibrillation however this was discontinued after he had a genomic evaluation from a outside physician and this medication was noted to be one that he did not tolerate. He was last seen in our office in June 2019. He had a stress echocardiogram in December 2018 which demonstrated an ejection fraction of 65%. Normal adequate treadmill echocardiogram. Negative for ischemia by EKG and echocardiographic criteria. Echocardiogram in December 2018 demonstrated an ejection fraction of 75% with stage I diastolic dysfunction. Past Medical History Allergies/Adverse Reactions: Allergies Sulfa (Sulfonamide Antibiotics) Allergy (Mild, Verified 07/29/19 14:07) Rash clopidogrel [From Plavix] Adverse Reaction (Severe, Verified 07/29/19 14:07) Other - genetic nonresponder, needs brillinta metoprolol [From Lopressor] Adverse Reaction (Mild, Verified 07/29/19 14:07) - bronchospasm nystatin Adverse Reaction (Unknown, Verified 07/29/19 14:07) Unknown MEDICAL TAPE Adverse Reaction (Uncoded 07/29/19 14:07) Itching Home Medications: Ambulatory Orders Medication Instructions Recorded duloxetine 20 mg capsule,delayed 20 mg PO DAILY cap 06/24/18 release nitroglycerin 0.4 mg sublingual 0.4 mg SUBLINGUAL Q5M PRN #25 tab 02/11/19 tablet diltiazem HCl 180 mg 180 mg PO DAILY #90 cap 06/10/19 capsule,extended release 24 hr methotrexate sodium 2.5 mg tablet 15 mg PO SA tab 06/10/19 rosuvastatin 20 mg tablet 20 mg PO DAILY #90 tab 06/10/19 ramipril 5 mg capsule 5 mg PO DAILY #90 cap 07/09/19 rivaroxaban 20 mg tablet 20 mg PO DAILY #30 tab 07/26/19 Aspirin E.C. [Ecotrin] 81 mg PO DAILY@1800 07/29/19 Folic Acid 2 mg PO DAILY 07/29/19 Past Medical History (Chronic Problems): Chronic Problems (Last Reviewed 07/22/19 @ 09:42 by Tashia Cedeno) Rheumatoid arthritis (Chronic) BRANDON (obstructive sleep apnea) (Chronic) CPAP 10 cm of water Asthma (Chronic) Presence of cardiac pacemaker (Chronic ~12/08/12) Sick sinus syndrome (Chronic) Paroxysmal atrial fibrillation (Chronic) Old myocardial infarction (Chronic) History of coronary artery stent placement (Chronic ~07/23/13) PCI-MELL-LAD Atherosclerosis of coronary artery of [place] heart without angina pectoris (Chronic) PCI-MELL-LAD Hypertension (Chronic) 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 Denies: Fever, Fatigue HEENT: Denies: Vision Change, Blurred Vision Cardiovascular: Reports: Chest Discomfort, Chest Discomfort at Rest, Shortness of Breath, Palpitations. Denies: Shortness of Breath at Rest, Shortness of Breath with Exertion, Orthopnea, Peripheral Edema Respiratory: Denies: Cough Gastrointestinal: Reports: Nausea, - - bloating. Denies: Indigestion Genitourinary: Denies: Dysuria, Hematuria Muscoloskeletal: Denies: Myalgias Skin: Denies: Rash Neurological: Denies: Dizziness, Vertigo Objective: Vital Signs Temp Pulse Resp BP Pulse Ox 97.6 F L 82 16 138/83 H 95 07/30/19 09:47 07/30/19 09:47 07/30/19 09:47 07/30/19 09:47 07/30/19 09:47 Oxygen Delivery Method Room Air Weight: 173 lb 1.006 oz Body Mass Index (BMI) 25.5 Intake and Output for Last 24 Hours 07/28/19 07/29/19 07/30/19 23:59 23:59 23:59 Intake Total 240 / 240 360 / 360 Balance 240 / 240 360 / 360 General: Healthy Appearing, Awake, Alert, Oriented x 3, Cooperative HEENT: Atraumatic, Normocephalic, PERRL, EOMI Oral: Moist Mucosa Neck: Supple, Good ROM, No Lymph Node Enlargement Lungs: Clear to auscultation Cardiovascular: Regular Rhythm, Normal S1, Normal S2, No Murmurs, No Rubs, No Gallops Vascular: No Carotid Bruits, Normal Posterior Tibial Pulses Abdomen: Bowel Sounds Present, Soft, Non Tender, No Organomegaly Extremities: No Cyanosis, No Clubbing, No edema Neurological: No Focal Motor or Sensory Deficit, CN II-XII Intact Psych/Mental Status: Appropriate, Normal Affect 07/29/19 14:05: WBC 10.1, RBC 4.87, Hgb 16.2, Hct 47.7, MCV 97.9 H, MCH 33.3 H, MCHC 34.0, Plt Count 241, MPV 9.2, Immature Gran % (Auto) 0.400, Neut % (Auto) 88.3 H, Lymph % (Auto) 4.2 L, [place] % (Auto) 6.1, Eos % (Auto) 0.7, Baso % (Auto) 0.3, Absolute Neuts (auto) 8.9 H, Nucleated RBC % 0 07/29/19 14:05: Sodium 141, Potassium 4.2, Chloride 106, Carbon Dioxide 30.0, Anion Gap 5, BUN 30 H, Creatinine 1.23, Est GFR (MDRD) Af Amer 75, Est GFR (MDRD) Non-Af 62, BUN/Creatinine Ratio 24.4 H, Glucose 133 H, Calcium 9.3, Troponin I < 0.015 07/29/19 18:19: Troponin I < 0.015 07/29/19 21:03: Troponin I < 0.015 07/30/19 05:48: WBC 7.4, RBC 4.76, Hgb 15.5, Hct 45.7, MCV 96.0 H, MCH 32.6 H, MCHC 33.9, Plt Count 199, MPV 9.0, Immature Gran % (Auto) 0.300, Neut % (Auto) 82.9 H, Lymph % (Auto) 6.0 L, [place] % (Auto) 10.1 H, Eos % (Auto) 0.4, Baso % (Auto) 0.3, Absolute Neuts (auto) 6.1, Nucleated RBC % 0 07/30/19 05:48: Sodium 137, Potassium 3.9, Chloride 104, Carbon Dioxide 28.0, Anion Gap 5, BUN 28 H, Creatinine 1.11, Est GFR (MDRD) Af Amer 85, Est GFR (MDRD) Non-Af 70, BUN/Creatinine Ratio 25.2 H, Glucose 109 H, Calcium 8.6, Phosphorus 3.7, Magnesium 1.8 Rhythm: EKG: ECHO: Stress Test: Cardiac Cath: PCI: CT Surgery: Holter monitor: EPS: PPM: CXR: Stable chest with no acute superimposed finding. Chest CT Scan: Assessment/Plan 1. Chest discomfort with known coronary artery disease: Patient's troponins were negative x3, however he does have known coronary artery disease and had a recent stress echocardiogram in December 2018 which was negative for ischemia. With his chest discomfort would like to proceed with a diagnostic heart catheterization. In order to do this during his hospital stay as he is on Xarelto will need to hold his Xarelto for a few days and proceed with a heart catheterization likely on Friday. He will continue with his aspirin, and statin. 2. Paroxysmal atrial fibrillation: Patient's pacemaker was interrogated today. He did have episodes of atrial fibrillation that does correlate with the dates of his symptoms. Would like to start him on amiodarone. Hopefully this will help with his paroxysms of atrial fibrillation. As we are proceeding with a diagnostic heart catheterization his Xarelto will need to be placed on hold. Patient will continue with his current dose of Cardizem. Will adjust if need be. 3. Hypertension: Patient's blood pressure is controlled. He will continue with his PHU inhibitor and calcium channel elza. 4. Hyperlipidemia: Patient will continue with his current statin. This is managed on an outpatient basis. His case was discussed with Dr. Hollingsworth, he agrees with plan of care. <Syd Hollingsworth - Last Filed: 07/30/19 14:05> Problem List (1) Chest pain Status: Acute (2) BRANDON (obstructive sleep apnea) Status: Chronic Comment: CPAP 10 cm of water (3) Sick sinus syndrome Status: Chronic (4) Paroxysmal atrial fibrillation Status: Chronic (5) Old myocardial infarction Status: Chronic (6) History of coronary artery stent placement Status: Chronic Comment: PCI-MELL-LAD (7) Atherosclerosis of coronary artery of [place] heart without angina pectoris Status: Chronic Comment: PCI-MELL-LAD Reason for Consult History of Present Illness: The patient is a 68 year old M, patient of [employer], seen and examined in consultation in collaboration with Amisha Thompson. Patient apparently is had several episodes of severe substernal chest pressure, similar to his previous anginal symptoms prior to his angioplasty, which coincide apparently with rapid atrial fibrillation as discovered by interrogation of his pacemaker. Nonetheless his last catheterization was in 2017. Thankfully his troponins have been negative. He remains in normal sinus rhythm at this time. [] Past Medical History - *Family History Maternal Family History: Family History (Last Reviewed 07/22/19 @ 09:42 by Tashia Cedeno) Brother CVA (cerebral vascular accident) Carotid artery stenosis Father CVA (cerebral vascular accident) Carotid artery stenosis Mother Stomach cancer Subjectve: Patient sitting in bed, no acute distress. Objective: Vital Signs Temp Pulse Resp BP Pulse Ox 97.6 F L 82 16 138/83 H 95 07/30/19 09:47 07/30/19 09:47 07/30/19 09:47 07/30/19 09:47 07/30/19 09:47 Oxygen Delivery Method Room Air Weight: 173 lb 1.006 oz Body Mass Index (BMI) 25.5 Intake and Output for Last 24 Hours 07/28/19 07/29/19 07/30/19 23:59 23:59 23:59 Intake Total 240 / 240 360 / 360 Balance 240 / 240 360 / 360 07/29/19 14:05: WBC 10.1, RBC 4.87, Hgb 16.2, Hct 47.7, MCV 97.9 H, MCH 33.3 H, MCHC 34.0, Plt Count 241, MPV 9.2, Immature Gran % (Auto) 0.400, Neut % (Auto) 88.3 H, Lymph % (Auto) 4.2 L, [place] % (Auto) 6.1, Eos % (Auto) 0.7, Baso % (Auto) 0.3, Absolute Neuts (auto) 8.9 H, Nucleated RBC % 0 07/29/19 14:05: Sodium 141, Potassium 4.2, Chloride 106, Carbon Dioxide 30.0, Anion Gap 5, BUN 30 H, Creatinine 1.23, Est GFR (MDRD) Af Amer 75, Est GFR (MDRD) Non-Af 62, BUN/Creatinine Ratio 24.4 H, Glucose 133 H, Calcium 9.3, Troponin I < 0.015 07/29/19 18:19: Troponin I < 0.015 07/29/19 21:03: Troponin I < 0.015 07/30/19 05:48: WBC 7.4, RBC 4.76, Hgb 15.5, Hct 45.7, MCV 96.0 H, MCH 32.6 H, MCHC 33.9, Plt Count 199, MPV 9.0, Immature Gran % (Auto) 0.300, Neut % (Auto) 82.9 H, Lymph % (Auto) 6.0 L, [place] % (Auto) 10.1 H, Eos % (Auto) 0.4, Baso % (Auto) 0.3, Absolute Neuts (auto) 6.1, Nucleated RBC % 0 07/30/19 05:48: Sodium 137, Potassium 3.9, Chloride 104, Carbon Dioxide 28.0, Anion Gap 5, BUN 28 H, Creatinine 1.11, Est GFR (MDRD) Af Amer 85, Est GFR (MDRD) Non-Af 70, BUN/Creatinine Ratio 25.2 H, Glucose 109 H, Calcium 8.6, Phosphorus 3.7, Magnesium 1.8 Rhythm: EKG: ECHO: Stress Test: Cardiac Cath: PCI: CT Surgery: Holter monitor: EPS: PPM: CXR: Chest CT Scan: Assessment/Plan Patient seen and examined in conjunction with Amisha Thompson. Interrogation of his pacemaker discovered that his symptoms coincided with rapid atrial fibri llation which self terminated. 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 He will be loaded with Brilinta 180 mg p.o. x1 now followed by 90 mg p.o. twice daily as he is unable to take Plavix therapy. If he has no significant coronary [place] disease that require intervention we will discontinue his Brilinta, and switch him back to Xarelto. In addition I recommended we start him on amiodarone 400 mg p.o. twice daily for 3 days, followed by 2 mg daily, in conjunction with his Cardizem. Unfortunately is unable to take beta-blockers due to his history of bronchospasm . We will restart his Xarelto after his catheterization in his groin is stable. I talked to the patient in the past about possible atrial fibrillation ablation therapy, but he wishes to hold off on this for this time. Should the patient have breakthrough atrial fibrillation despite amiodarone treatment, he may require atrial fibrillation ablation consultation. Thank you very much for the opportunity to participate in the cardiac care of your patient. Consultation time took place between 12 PM and 12:30 PM. Code Visit Inpatient E&M: 98835 In Hosp L2
[2019-07-30] MEDS: TICAGRELOR 90 MG TABLET 180 MG PO (13:41)
--- NOTE | 2019-07-30 16:09 | PN_ITS ---
Patient Problems: Active and Suspected Problems (Last Reviewed 07/22/19 @ 09:42 by Tashia Cedeno) Chest pain (Acute) Subjective: Seen and examined today, I talked with cardiology about his care, cardiology interrogated his pacemaker and found the patient was going in and out of atrial fibrillation. Cardiology recommended the patient be placed on amiodarone and undergo heart catheterization on 08/02/2019. Patient's cardiac enzymes have remained normal. Patient has no complaints of any chest pain or shortness of breath at this time. - Physical Exam Vitals/I&O's: Vital Signs Temp Pulse Resp BP Pulse Ox 98.1 F 60 16 115/69 95 07/30/19 15:45 07/30/19 15:45 07/30/19 15:45 07/30/19 15:45 07/30/19 15:45 Oxygen Delivery Method Room Air Weight: 78.5 kg Body Mass Index (BMI) 25.5 Intake and Output for Last 24 Hours 07/28/19 07/29/19 07/30/19 23:59 23:59 23:59 Intake Total 240 / 240 360 / 360 Balance 240 / 240 360 / 360 General: Alert, Oriented x3, Cooperative, No apparent distress, Well developed, Well nourished HEENT: Atraumatic, PERRLA, EOMI, Normocephalic Oral: Moist Mucosa Neck: Supple, Trachea Midline, Thyroid Normal Size and Texture Lungs: Clear to auscultation, Normal air movement, No rhonchi, No wheeze, No rales Cardiovascular: Regular rate, Regular Rhythm, Normal S1, Normal S2, No murmurs, PMI Normal, No rub noted Abdomen: Bowel Sounds Present, Soft, Non Tender, Non-Distended Extremities: No clubbing, No cyanosis, No edema, Capillary Refill Less than 3 Seconds Skin: No rashes, No breakdown Musculoskeletal: No Tenderness to Palpation of Joints or Extremities, No Muscle Wasting Neurological: Cranial nerves II-XII grossly intact, Neuro grossly intact, Sensory exam intact to light touch and pain, Coordination normal Psych/Mental Status: Normal Affect, Appropriate, Alert and oriented to time, place, person, mood and affect Laboratory Results 07/29/19 18:19: Troponin I < 0.015 07/29/19 21:03: Troponin I < 0.015 07/30/19 05:48: WBC 7.4, RBC 4.76, Hgb 15.5, Hct 45.7, MCV 96.0 H, MCH 32.6 H, MCHC 33.9, RDW Std Deviation 50.9 H, RDW Coeff of Jessica 14.6, Plt Count 199, MPV 9.0, Immature Gran % (Auto) 0.300, Neut % (Auto) 82.9 H, Lymph % (Auto) 6.0 L, Ogle % (Auto) 10.1 H, Eos % (Auto) 0.4, Baso % (Auto) 0.3, Absolute Neuts (auto) 6.1, Absolute Lymphs (auto) 0.44 L, Nucleated RBC % 0 07/30/19 05:48: Sodium 137, Potassium 3.9, Chloride 104, Carbon Dioxide 28.0, Anion Gap 5, BUN 28 H, Creatinine 1.11, Estim Creat Clear Calc 63.69, Est GFR (MDRD) Af Amer 85, Est GFR (MDRD) Non-Af 70, BUN/Creatinine Ratio 25.2 H, Glucose 109 H, Calcium 8.6, Phosphorus 3.7, Magnesium 1.8, TSH 1.39 Current Medications Acetaminophen (Tylenol) 650 mg PO Q6H PRN PRN PRN Reason: Pain Score 1-10/10 Last Admin: 07/29/19 21:36 Dose: 650 mg Documented by: Amiodarone HCl (Cordarone) 400 mg PO BID [facility] Stop: 08/02/19 10:00 Aspirin (Ecotrin) 81 mg PO DAILY@1800 [facility] Last Admin: 07/29/19 18:26 Dose: Not Given Documented by: Atorvastatin Calcium (Lipitor) 40 mg PO QHS [facility] Last Admin: 07/29/19 21:36 Dose: 40 mg Documented by: Diltiazem HCl (Cardizem Cd) 180 mg PO DAILY [facility] Last Admin: 07/30/19 09:51 Dose: 180 mg Documented by: Duloxetine HCl (Cymbalta) 20 mg PO DAILY [facility] Last Admin: 07/30/19 09:51 Dose: 20 mg Documented by: [facility] ([facility]) [facility] Last Admin: 07/30/19 09:51 Dose: 2 mg Documented by: Methotrexate (Methotrexate) 15 mg PO [facility] Nitroglycerin (Nitrostat) 0.4 mg SUBLINGUAL Q5M PRN PRN Reason: CARDIAC/CHEST PAIN Nutritional Formula (Lactose Free) (Ensure Enlive) 120 ml PO 4X/DAY [facility] Last Admin: 07/30/19 13:41 Dose: 120 ml Documented by: Ramipril (Altace) 5 mg PO DAILY [facility] Last Admin: 07/30/19 09:51 Dose: 5 mg Documented by: Sodium Chloride () 10 - 40 ml IV UD PRN PRN Reason: SALINE FLUSH Ticagrelor (Brilinta) 90 mg PO BID [facility] Medical Necessity - Tobacco Use Smoking Status: Never smoker Assessment/Plan All Active Problems (Last Reviewed 07/22/19 @ 09:42 by Tashia Cedeno) Chest pain (Acute) Candidiasis of mouth (Acute) Segmental and somatic dysfunction of cervical region (Acute) Segmental and somatic dysfunction of thoracic region (Acute) Segmental and somatic dysfunction of lumbar region (Acute) #1 chest pain-etiology unclear, could be secondary to episodes of atrial fibrillation-cardiology is participating in the patient's care at this time, the plan is for the patient have a cardiac catheterization on 08/02/2019. #2 paroxysmal atrial fibrillation-patient was placed on amiodarone, he will be monitored #3 coronary artery disease #4 essential hypertension #5 rheumatoid arthritis #6 obstructive sleep apnea #7 abdominal discomfort with nausea and vomiting-this has resolved at this time, we will continue to monitor this Code Visit Inpatient E&M: 58335 Init Hosp L3
[2019-07-30] MEDS: Aspirin E.C. 81 MG Tablet PO (17:34)
[2019-07-30] MEDS: Atorvastatin Calcium 40 MG Tablet PO (23:26)
[2019-07-30] MEDS: Amiodarone 200 MG Tablet 400 MG PO (23:27)
[2019-07-31] VITALS (13 sets, daily range): BP systolic 112–136; BP diastolic 59–77; PULSE 60–67; RESP 14–18; TEMP 36.8–37.1; O2SAT 95–97
[2019-07-31] MEDS: TICAGRELOR 90 MG TABLET PO ×3 (05:55→21:36)
[2019-07-31] MEDS: dilTIAZem CD 180 MG Capsule PO (09:57)
[2019-07-31] MEDS: DULoxetine Hcl 20 MG Capsule PO (09:58)
[2019-07-31] MEDS: Ramipril 5 MG Capsule PO (09:58)
[2019-07-31] MEDS: Amiodarone 200 MG Tablet 400 MG PO ×2 (09:58→21:35)
[2019-07-31] MEDS: Folic Acid 1 MG Tablet 2 MG PO (09:58)
--- NOTE | 2019-07-31 10:42 | PCM.PN.CARD ---
Subjectve: No interim change, telemetry showed normal sinus rhythm with episodes of atrial fibrillation with rapid ventricular response. Objective: Vital Signs Temp Pulse Resp BP Pulse Ox 98.6 F 67 14 120/72 95 07/31/19 09:52 07/31/19 09:52 07/31/19 09:52 07/31/19 09:52 07/31/19 09:52 Oxygen Delivery Method Room Air Weight: 173 lb 1.006 oz Body Mass Index (BMI) 25.5 Intake and Output for Last 24 Hours 07/29/19 07/30/19 07/31/19 23:59 23:59 23:59 Intake Total 240 / 240 600 / 800 300 / 300 Balance 240 / 240 600 / 800 300 / 300 General: Awake, Alert, Oriented x 3 HEENT: PERRL, EOMI, Sclera Non Icteric Neck: Supple, Good ROM, No Lymph Node Enlargement Lungs: Clear to auscultation Cardiovascular: Regular Rhythm, Normal S1, Normal S2, No Murmurs, No Rubs, No Gallops Vascular: No Carotid Bruits, Normal Femoral Pulses, Normal Radial Pulses, Normal Dorsalis Pedal Pulse, Normal Posterior Tibial Pulses Abdomen: Bowel Sounds Present, Soft, Non Tender, No HSM, No Organomegaly Extremities: No Cyanosis, No Clubbing, No edema Neurological: No Focal Motor or Sensory Deficit Rhythm: EKG: ECHO: Stress Test: Cardiac Cath: PCI: CT Surgery: Holter monitor: EPS: PPM: CXR: Chest CT Scan: Medical Necessity - Tobacco Use Smoking Status: Never smoker Assessment/Plan 1. Atrial fibrillation: Interrogation of his pacemaker The day of admissiondiscovered that his symptoms coincided with rapid atrial fibrillation which self terminated. 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 Given the patient's normal stress test in December 2018, substernal chest pressure now despite max medical therapy, and the potential need for jail amiodarone therapy, I recommended the patient undergo a left heart catheterization once his Xarelto has worn off over the next 3 days. He will be loaded with Brilinta 180 mg p.o. x1 now followed by 90 mg p.o. twice daily as he is unable to take Plavix therapy.Plan for heart catheterization this upcoming Friday.Patient did have some breakthrough atrial fibrillation last evening. If he has no significant coronary Occlusive disease that require intervention we will discontinue his Brilinta, and switch him back to Xarelto. In addition I recommended we start him on amiodarone 400 mg p.o. twice daily for 3 days, followed by 200 mg daily, in conjunction with his Cardizem. Unfortunately is unable to take beta-blockers due to his history of bronchospasm. We will restart his Xarelto after his catheterization in his groin is stable. I talked to the patient in the past about possible atrial fibrillation ablation therapy, but he wishes to hold off on this for this time. Should the patient have breakthrough atrial fibrillation despite amiodarone treatment, he may require atrial fibrillation ablation consultation. Thank you very much for the opportunity to participate in the cardiac care of your patient. Cardiac catheterization planned for Friday. Code Visit Inpatient E&M: 92266 Subs Hosp L2
--- NOTE | 2019-07-31 15:28 | CM.UR ---
Heart Cath Planned for Friday. Spoke with patient explaining that he has traditional medicare primary and should transfer be necessary he could go to any Medicare accepting hospital. States he would prefer [facility]. Satish Salas RN, CCM.
--- NOTE | 2019-07-31 15:29 | CM.UR ---
RN CM Assessment Introduced role of RN CM to patient. Patient is alert and able to participate in RN CM Assessment. Care providers, pharmacy, and demographics verified. No family at bedside. Presentation: chest pain x 1 week. Took nitro on 3 separate occasions over the week. hx of cad. Admit Dx: Chest pain Re-Admit: no Barriers/Issues: None PCP: Tere Specialists: Dr. Hollingsworth Preferred Pharmacy: [facility] Insurance: [facility]/MMO supplement. Rx Benefit: Yes LNOK: , [place] LW/HPOA: Not done. Has the forms at home just never got around to doing them. Instructed on options to do while here or contact social work after dc to complete. Verb understanding. Living Arrangements: With in 1 story home. ADL?s: independent. Transportation: self DME: CPAP, grab bars, w/c DME co: [employer] HHC: None SNF: None Goal: Home, denies needs. DC PLAN: Home, no needs anticipated. Satish Salas RN, CCM.
--- NOTE | 2019-07-31 16:37 | PCM.PROGNOTE ---
Patient Problems: Active and Suspected Problems (Last Reviewed 07/22/19 @ 09:42 by Tashia Cedeno) Chest pain (Acute) Subjective: Patient was seen and examined today, he has no complaints of any chest pain or shortness of breath, patient remains in normal sinus rhythm. The plan is for the patient to undergo heart catheterization on 08/02/2019. - Physical Exam Vitals/I&O's: Vital Signs Temp Pulse Resp BP Pulse Ox 98.3 F 60 16 112/59 L 96 07/31/19 15:50 07/31/19 15:50 07/31/19 15:50 07/31/19 15:50 07/31/19 15:50 Oxygen Delivery Method Room Air Weight: 78.5 kg Body Mass Index (BMI) 25.5 Intake and Output for Last 24 Hours 07/29/19 07/30/19 07/31/19 23:59 23:59 23:59 Intake Total 240 / 240 600 / 800 300 / 300 Balance 240 / 240 600 / 800 300 / 300 General: Alert, Oriented x3, Cooperative, No apparent distress, Well developed HEENT: Atraumatic, PERRLA, EOMI, Normocephalic Oral: Moist Mucosa Neck: Supple, Trachea Midline, Thyroid Normal Size and Texture Lungs: Clear to auscultation, Normal air movement, No rhonchi, No wheeze, No rales Cardiovascular: Regular rate, Regular Rhythm, Normal S1, Normal S2, No murmurs, PMI Normal, No rub noted Abdomen: Bowel Sounds Present, Soft, Non Tender, Non-Distended Extremities: No clubbing, No cyanosis, Capillary Refill Less than 3 Seconds Skin: No rashes, No breakdown Musculoskeletal: No Tenderness to Palpation of Joints or Extremities Neurological: Cranial nerves II-XII grossly intact, Neuro grossly intact, Sensory exam intact to light touch and pain Psych/Mental Status: Normal Affect, Appropriate, Alert and oriented to time, place, person, mood and affect Current Medications Acetaminophen (Tylenol) 650 mg PO Q6H PRN PRN PRN Reason: Pain Score 1-1010 Last Admin: 07/29/19 21:36 Dose: 650 mg Documented by: Amiodarone HCl (Cordarone) 400 mg PO BID [facility] Stop: 08/02/19 10:00 Last Admin: 07/31/19 09:58 Dose: 400 mg Documented by: Aspirin (Ecotrin) 81 mg PO DAILY@1800 [facility] Last Admin: 07/30/19 17:34 Dose: 81 mg Documented by: Atorvastatin Calcium (Lipitor) 40 mg PO QHS [facility] Last Admin: 07/30/19 23:26 Dose: 40 mg Documented by: Diltiazem HCl (Cardizem Cd) 180 mg PO DAILY [facility] Last Admin: 07/31/19 09:57 Dose: 180 mg Documented by: Duloxetine HCl (Cymbalta) 20 mg PO DAILY [facility] Last Admin: 07/31/19 09:58 Dose: 20 mg Documented by: Folic Acid (Folic Acid) 2 mg PO DAILYCM [facility] Last Admin: 07/31/19 09:58 Dose: 2 mg Documented by: Methotrexate (Methotrexate) 15 mg PO SA [facility] Last Admin: 07/31/19 09:56 Dose: Not Given Documented by: Nitroglycerin (Nitrostat) 0.4 mg SUBLINGUAL Q5M PRN PRN Reason: CARDIAC/CHEST PAIN Nutritional Formula (Lactose Free) (Ensure Enlive) 120 ml PO 4X/DAY [facility] Last Admin: 07/31/19 15:00 Dose: 120 ml Documented by: Ramipril (Altace) 5 mg PO DAILY [facility] Last Admin: 07/31/19 09:58 Dose: 5 mg Documented by: Sodium Chloride () 10 - 40 ml IV UD PRN PRN Reason: SALINE FLUSH Ticagrelor (Brilinta) 90 mg PO BID [facility] Last Admin: 07/31/19 09:58 Dose: 90 mg Documented by: Medical Necessity - Tobacco Use Smoking Status: Never smoker Assessment/Plan All Active Problems (Last Reviewed 07/22/19 @ 09:42 by Tashia Cedeno) Chest pain (Acute) Candidiasis of mouth (Acute) Segmental and somatic dysfunction of cervical region (Acute) Segmental and somatic dysfunction of thoracic region (Acute) Segmental and somatic dysfunction of lumbar region (Acute) #1 chest pain-etiology unclear, could be secondary to episodes of atrial fibrillation-cardiology is participating in the patient's care at this time, the plan is for the patient have a cardiac catheterization on 08/02/2019. Patient continues to be chest pain-free. #2 paroxysmal atrial fibrillation-patient was placed on amiodarone orally, he will be monitored #3 coronary artery disease #4 essential hypertension #5 rheumatoid arthritis #6 obstructive sleep apnea #7 abdominal discomfort with nausea and vomiting-this has resolved at this time, we will continue to monitor this Code Visit Inpatient E&M: 26160 Subs Hosp L2
[2019-07-31] MEDS: Aspirin E.C. 81 MG Tablet PO (17:44)
[2019-07-31] MEDS: Atorvastatin Calcium 40 MG Tablet PO (21:35)
[2019-08-01] VITALS (14 sets, daily range): BP systolic 89–131; BP diastolic 45–77; PULSE 60–75; RESP 14–18; TEMP 36.7–37.1; O2SAT 95–98
[2019-08-01] MEDS: Folic Acid 1 MG Tablet 2 MG PO (08:08)
[2019-08-01] MEDS: TICAGRELOR 90 MG TABLET PO ×2 (08:09→21:29)
[2019-08-01] MEDS: DULoxetine Hcl 20 MG Capsule PO (08:09)
[2019-08-01] MEDS: Amiodarone 200 MG Tablet 400 MG PO ×2 (08:09→21:29)
[2019-08-01] MEDS: Ramipril 5 MG Capsule PO (08:09)
[2019-08-01] MEDS: dilTIAZem CD 180 MG Capsule PO (08:09)
--- NOTE | 2019-08-01 08:58 | EKG12_ITS ---
Test Reason : AM EKG Blood Pressure : / mmHG Vent. Rate : 083 BPM Atrial Rate : 083 BPM P-R Int : 192 ms QRS Dur : 094 ms QT Int : 362 ms P-R-T Axes : 055 015 053 degrees QTc Int : 425 ms Normal sinus rhythm Normal ECG When compared with ECG of 29-JUL-2019 18:55, MANUAL COMPARISON REQUIRED, DATA IS UNCONFIRMED Confirmed by POLINA HERNANDEZ ([id number]), graphic editor SEJAL NULL ([id number] on 08/03/2019 3:12:58 PM Referred By: Jefferson Adair Confirmed By:POLINA HERNANDEZ
--- NOTE | 2019-08-01 09:07 | EKG12_ITS ---
Test Reason : ROUTINE Blood Pressure : / mmHG Vent. Rate : 073 BPM Atrial Rate : 073 BPM P-R Int : 190 ms QRS Dur : 100 ms QT Int : 376 ms P-R-T Axes : 056 -01 040 degrees QTc Int : 414 ms Normal sinus rhythm Normal ECG Confirmed by BLAINE AMBROSIO, AURORA ([id number]), social media editor SEJAL NULL ([id number] on 08/06/2019 3:36:27 PM Referred By: Jefferson Adair Confirmed By:AURORA VALLADARES MD
--- NOTE | 2019-08-01 10:44 | PCM.PN.CARD ---
Subjectve: Patient seen and examined this morning. Telemetry showed normal sinus rhythm with occasional sinus arrhythmia. EKG this morning shows normal sinus rhythm with QT corrected around 401 ms. No further atrial fibrillation noted. Objective: Vital Signs Temp Pulse Resp BP Pulse Ox 98.8 F 67 14 114/73 95 08/01/19 08:00 08/01/19 08:00 08/01/19 08:00 08/01/19 08:00 08/01/19 08:00 Oxygen Delivery Method Room Air Weight: 173 lb 1.006 oz Body Mass Index (BMI) 25.5 Intake and Output for Last 24 Hours 07/30/19 07/31/19 08/01/19 23:59 23:59 23:59 Intake Total 600 / 800 300 / 300 480 / 480 Balance 600 / 800 300 / 300 480 / 480 General: Awake, Alert, Oriented x 3 HEENT: PERRL, EOMI, Sclera Non Icteric Neck: Supple, Good ROM, No Lymph Node Enlargement Lungs: Clear to auscultation Cardiovascular: Regular Rhythm, Normal S1, Normal S2, No Murmurs, No Rubs, No Gallops Vascular: No Carotid Bruits, Normal Femoral Pulses, Normal Radial Pulses, Normal Dorsalis Pedal Pulse, Normal Posterior Tibial Pulses Abdomen: Bowel Sounds Present, Soft, Non Tender, No HSM, No Organomegaly Extremities: No Cyanosis, No Clubbing, No edema Neurological: No Focal Motor or Sensory Deficit Rhythm: EKG: ECHO: Stress Test: Cardiac Cath: PCI: CT Surgery: Holter monitor: EPS: PPM: CXR: Chest CT Scan: Medical Necessity - Tobacco Use Smoking Status: Never smoker Assessment/Plan 1. Atrial fibrillation: Interrogation of his pacemaker on the day of admission discovered that his symptoms coincided with rapid atrial fibrillation which self terminated. 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 Given the patient's normal stress test in December 2018, substernal chest pressure now despite max medical therapy, and the potential need for buttermaker continuous churn amiodarone therapy, I recommended the patient undergo a left heart catheterization once his Xarelto has worn off over the next 3 days. He will be loaded with Brilinta 180 mg p.o. x1 now followed by 90 mg p.o. twice daily as he is unable to take Plavix therapy. Plan for heart catheterization this upcoming Friday.patient's had no additional atrial fibrillation in the last 24 hours as he has been taking amiodarone. QT corrected interval is acceptable at this time to continue amiodarone loading. If he has no significant coronary occlusive disease that require intervention we will discontinue his Brilinta, and switch him back to Xarelto. In addition I recommended we start him on amiodarone 400 mg p.o. twice daily for 3 days, followed by 200 mg daily, in conjunction with his Cardizem. Unfortunately is unable to take beta-blockers due to his history of bronchospasm. For this I am concerned about sotalol as well. We will restart his Xarelto after his catheterization in his groin is stable. I talked to the patient in the past about possible atrial fibrillation ablation therapy, but he wishes to hold off on this for this time. Should the patient have breakthrough atrial fibrillation despite amiodarone treatment, he may require atrial fibrillation ablation consultation. Thank you very much for the opportunity to participate in the cardiac care of your patient. Cardiac catheterization planned for Friday morning. Code Visit Inpatient E&M: 63014 Subs Hosp L2
--- NOTE | 2019-08-01 16:16 | PN_ITS ---
Patient Problems: Active and Suspected Problems (Last Reviewed 07/22/19 @ 09:42 by Tashia Cedeno) Chest pain (Acute) Subjective: Patient was seen and examined today, he has no complaints of any shortness of breath or chest pain. There have been no more episodes of atrial fibrillation. - Physical Exam Vitals/I&O's: Vital Signs Temp Pulse Resp BP Pulse Ox 98.8 F 66 14 112/45 L 98 08/01/19 14:00 08/01/19 14:00 08/01/19 14:00 08/01/19 14:00 08/01/19 14:00 Oxygen Delivery Method Room Air Weight: 78.5 kg Body Mass Index (BMI) 25.5 Intake and Output for Last 24 Hours 07/30/19 07/31/19 08/01/19 23:59 23:59 23:59 Intake Total 600 / 800 300 / 300 480 / 480 Balance 600 / 800 300 / 300 480 / 480 General: Alert, Oriented x3, Cooperative, No apparent distress, Well developed HEENT: Atraumatic, PERRLA, EOMI, Normocephalic Oral: Moist Mucosa Neck: Supple, Trachea Midline, Thyroid Normal Size and Texture Lungs: Clear to auscultation, Normal air movement, No rhonchi, No wheeze, No rales Cardiovascular: Regular rate, Regular Rhythm, Normal S1, Normal S2, No murmurs, PMI Normal, No rub noted, No Gallop Abdomen: Bowel Sounds Present, Soft, Non Tender, Non-Distended, No hernias noted Extremities: No clubbing, No cyanosis, No edema, Capillary Refill Less than 3 Seconds Skin: No rashes, No breakdown Musculoskeletal: No Tenderness to Palpation of Joints or Extremities Neurological: Cranial nerves II-XII grossly intact, Neuro grossly intact, Sensory exam intact to light touch and pain Psych/Mental Status: Normal Affect, Appropriate, Alert and oriented to time, place, person, mood and affect Current Medications Acetaminophen (Tylenol) 650 mg PO Q6H PRN PRN PRN Reason: Pain Score 1-10/10 Last Admin: 07/29/19 21:36 Dose: 650 mg Documented by: Amiodarone HCl (Cordarone) 400 mg PO BID [facility] Stop: 08/02/19 10:00 Last Admin: 08/01/19 08:09 Dose: 400 mg Documented by: Aspirin (Ecotrin) 81 mg PO DAILY@1800 [facility] Last Admin: 07/31/19 17:44 Dose: 81 mg Documented by: Atorvastatin Calcium (Lipitor) 40 mg PO QHS [facility] Last Admin: 07/31/19 21:35 Dose: 40 mg Documented by: Diltiazem HCl (Cardizem Cd) 180 mg PO DAILY [facility] Last Admin: 08/01/19 08:09 Dose: 180 mg Documented by: Diphenhydramine HCl (Benadryl) 50 mg PO X1 [facility] Stop: 08/02/19 05:01 Duloxetine HCl (Cymbalta) 20 mg PO DAILY [facility] Last Admin: 08/01/19 08:09 Dose: 20 mg Documented by: Folic Acid (Folic Acid) 2 mg PO DAILYCM [facility] Last Admin: 08/01/19 08:08 Dose: 2 mg Documented by: Sodium Chloride () 1,000 mls @ 0 mls/hr IV .Q0M [facility] Methotrexate (Methotrexate) 15 mg PO SA [facility] Last Admin: 07/31/19 09:56 Dose: Not Given Documented by: Nitroglycerin (Nitrostat) 0.4 mg SUBLINGUAL Q5M PRN PRN Reason: CARDIAC/CHEST PAIN Nutritional Formula (Lactose Free) (Ensure Enlive) 120 ml PO 4X/DAY [facility] Last Admin: 08/01/19 14:08 Dose: Not Given Documented by: Ramipril (Altace) 5 mg PO DAILY [facility] Last Admin: 08/01/19 08:09 Dose: 5 mg Documented by: Sodium Chloride () 10 - 40 ml IV UD PRN PRN Reason: SALINE FLUSH Ticagrelor (Brilinta) 90 mg PO BID [facility] Last Admin: 08/01/19 08:09 Dose: 90 mg Documented by: Medical Necessity - Tobacco Use Smoking Status: Never smoker Assessment/Plan All Active Problems (Last Reviewed 07/22/19 @ 09:42 by Tashia Cedeno) Chest pain (Acute) Candidiasis of mouth (Acute) Segmental and somatic dysfunction of cervical region (Acute) Segmental and somatic dysfunction of thoracic region (Acute) Segmental and somatic dysfunction of lumbar region (Acute) #1 chest pain-etiology unclear, could be secondary to episodes of atrial fibrillation-cardiology is participating in the patient's care at this time, the plan is for the patient have a cardiac catheterization on 08/02/2019. Patient continues to be chest pain-free. #2 paroxysmal atrial fibrillation-patient is on amiodarone, there have not been any recent episodes of atrial fibrillation #3 coronary artery disease #4 essential hypertension #5 rheumatoid arthritis #6 obstructive sleep apnea #7 abdominal discomfort with nausea and vomiting-this has resolved at this time, etiology unclear Code Visit Inpatient E&M: 04532 Subs Hosp L2
[2019-08-01] MEDS: Aspirin E.C. 81 MG Tablet PO (17:46)
[2019-08-01] MEDS: Atorvastatin Calcium 40 MG Tablet PO (21:29)
--- NOTE | 2019-08-01 22:08 | EKG12_ITS ---
Test Reason : CP Blood Pressure : / mmHG Vent. Rate : 075 BPM Atrial Rate : 075 BPM P-R Int : 184 ms QRS Dur : 098 ms QT Int : 400 ms P-R-T Axes : 049 011 051 degrees QTc Int : 446 ms Sinus rhythm with Premature supraventricular complexes Otherwise normal ECG Confirmed by BLAINE AMBROSIO, AURORA ([id number]), science editor CORBY MCNAIR ([id number]) on 08/05/2019 11:46:17 AM Referred By: Jefferson Adair Confirmed By:AURORA VALLADARES MD
[2019-08-01] MEDS: Nitroglycerin (INPATIENT USE) 0.4 MG TAB.SUBL SUBLINGUAL (22:10)
[2019-08-01] MEDS: Acetaminophen 325 MG Tablet 650 MG PO (22:26)
[2019-08-02] VITALS (14 sets, daily range): BP systolic 108–128; BP diastolic 64–72; PULSE 60–66; RESP 14–18; TEMP 36.8–37.3; O2SAT 94–98
--- NOTE | 2019-08-02 05:55 | EKG12_ITS ---
Test Reason : AM EKG Blood Pressure : / mmHG Vent. Rate : 065 BPM Atrial Rate : 065 BPM P-R Int : 224 ms QRS Dur : 096 ms QT Int : 392 ms P-R-T Axes : 030 015 042 degrees QTc Int : 407 ms Atrial-paced rhythm with prolonged AV conduction Abnormal ECG Confirmed by BLAINE AMBROSIO, AURORA ([id number]), script editor CORBY MCNAIR ([id number]) on 08/05/2019 11:27:27 AM Referred By: Jefferson Adair Confirmed By:AURORA VALLADARES MD
[2019-08-02] MEDS: Amiodarone 200 MG Tablet 400 MG PO (06:04)
[2019-08-02] MEDS: dilTIAZem CD 180 MG Capsule PO (06:04)
[2019-08-02] MEDS: TICAGRELOR 90 MG TABLET PO (06:04)
[2019-08-02] MEDS: Aspirin E.C. 81 MG Tablet PO (06:04)
[2019-08-02] MEDS: Ramipril 5 MG Capsule PO (06:04)
[2019-08-02] MEDS: DiphenhydrAMINE 25 MG Capsule 50 MG PO (06:55)
[2019-08-02] MEDS: 0.9% Normal Saline 1,000 ML 15 ML IV (06:55)
--- NOTE | 2019-08-02 08:11 | CL.D_ITS ---
Patient Name: BRIGETTE HOLGUIN Study Date: 08/02/2019 Performing: Syd Hollingsworth MD Ht: 68.89 inches 175 cm : 1950 Wt: 174.17 lbs 79 kg Age: 68 Gender: male BSA: 1.95 PROCEDURE(S) PERFORMED OR19-HNI/COR/LV CLINICAL PROFILE AND INDICATIONS Indications: ACS > 24 hrs, New Onset Angina <= 2 months, Stable Known CAD, Cardiac Arrythmia Heart Failure: None Stress/Imaging Date: 12/29/2018Stress Echocardiogram: Negative Angina Classification Anginal Classification w/in 2 Weeks: CCS IV CAD Presentations: Unstable angina. Comorbidities/Risk Factors: Hypertension Dyslipidemia Prior PCI CONCLUSIONS Perserved Left Ventricular systolic function with normal EDP LVEF: by LV gram 65 % Non obstructive coronary arteries RECOMMENDATIONS Management as per referring Pump House Engineer d/c brilinta, continue amiodarone 200mg po daily, EKG in 1 week. Restart xeralto in 3 days. F/u with Dr Hollingsworth DESCRIPTION OF PROCEDURE The patient arrived to the procedure lab. The risks and benefits of the procedure as well as a full d escription of our services here and current unavailability of surgical backup were fully explained to the patient and/or their significant other prior to the catheterization. The Timeout was completed, verifying the correct patient and procedure. The patient's procedural site was prepped and draped in the usual fashion. Local anesthetic was given subcutaneously to right groin region with Lidocaine 2%. Using a modified Seldinger technique, arterial access was obtained via the right femoral artery, a 4 Fr sheath was inserted Left Coronary Artery selective angiography was performed in multiple views us ing a 4 Fr. JL5 catheter. Right Coronary Artery selective angiography was then performed in multiple views using a 4 Fr. 3DRC catheter. Left Ventriculography was performed in GOLDBERG projection using a 4 Fr . Pigtail catheter. LV to AO pullback pressures were then recorded.The arterial sheath was pulled and manual compression applied until hemostasis is achieved. CORONARY ANGIOGRAPHY DOMINANCE: Right Dominant LEFT HEART ASSESSMENT Left Ventricular Ejection Fraction: by LV Gram 65 % Normal LV wall motion Normal Left Ventricular systolic function LEFT MAIN: Angiographically normal LEFT ANTERIOR DESCENDING ARTERY: PROX LAD: Mild luminal irregularities less than 30% MID LAD: Previously placed stent is patent CIRCUMFLEX ARTERY: PROX CIRC: Mild luminal irregularities less than 30% RIGHT CORONARY ARTERY: Non-obstructive RT PLV: Mild luminal irregularities less than 30% RT PDA: Proximal - Non-obstructive COMPLICATIONS No Complications PROCEDURE MEDICATIONS Oxygen: 2 L/min via nasal cannula SUMMARY OF HEMODYNAMIC DATA Time AIR REST ECG 07:19:39 AO 124/67 (89) SA 07:48:26 LV 129/-26, 6 07:54:58 LV 130/-27, 6 07:55:05 LVp 131/-29, 5 07:55:11 AOp 137/59 (88) 07:55:16 Signed By Syd Hollingsworth MD On 08/02/2019 8:10:24 AM Syd Hollingsworth MD
[2019-08-02] MEDS: Folic Acid 1 MG Tablet 2 MG PO (09:31)
[2019-08-02] MEDS: DULoxetine Hcl 20 MG Capsule PO (09:31)
--- NOTE | 2019-08-02 11:08 | DCINST_ITS ---
- Discharge Diagnoses Current Active Problems: Current Active and Chronic Problems (Last Reviewed 07/22/19 @ 09:42 by Tashia Cedeno) Chest pain (Acute) You will use the following diet at home:: No restrictions Discharge Activity: Return to Normal Activity Allergies/Adverse Reactions: Allergies Sulfa (Sulfonamide Antibiotics) Allergy (Mild, Verified 07/29/19 14:07) Rash clopidogrel [From Plavix] Adverse Reaction (Severe, Verified 07/29/19 14:07) Other - genetic nonresponder, needs brillinta metoprolol [From Lopressor] Adverse Reaction (Mild, Verified 07/29/19 14:07) - bronchospasm nystatin Adverse Reaction (Unknown, Verified 07/29/19 14:07) Unknown MEDICAL TAPE Adverse Reaction (Uncoded 07/29/19 14:07) Itching Medications to take at Discharge duloxetine 20 mg capsule,delayed release 20 mg PO DAILY cap 06/24/18 nitroglycerin 0.4 mg sublingual tablet 0.4 mg SUBLINGUAL Q5M PRN #25 tab 02/11/19 diltiazem HCl 180 mg capsule,extended release 24 hr 180 mg PO DAILY #90 cap 06/10/19 methotrexate sodium 2.5 mg tablet 15 mg PO SA tab 06/10/19 rosuvastatin 20 mg tablet 20 mg PO DAILY #90 tab 06/10/19 ramipril 5 mg capsule 5 mg PO DAILY #90 cap 07/09/19 rivaroxaban 20 mg tablet 20 mg PO DAILY #30 tab 07/26/19 Aspirin E.C. [Ecotrin] 81 mg PO DAILY@1800 07/29/19 Folic Acid 2 mg PO DAILY 07/29/19 Amiodarone HCl [Cordarone] 200 mg PO DAILY #90 tab 08/02/19 The following prescriptions were given: Amiodarone HCl [Cordarone] 200 mg PO DAILY #90 tab Prescription Printed Primary Care Physician: Paresh Carranza MD [Primary Care Provider] - Please follow up with your Primary Care Physician in: in 5-7 dayas Test Results: Test results from this visit will be discussed in further detail at your follow- up appointment, if applicable. Please Follow Up With: Syd Hollingsworth MD When: in 2-3 weeks Proposed Discharge Date: 08/02/19
--- NOTE | 2019-08-02 11:11 | PCM.DC.SUM ---
Discharge Date and Diagnosis - Problem List Patient Problems: Active and Suspected Problems (Last Reviewed 07/22/19 @ 09:42 by Tashia Cedeno) Chest pain (Acute) Date of Admission: 07/29/19 Date of Discharge: 08/02/19 - Primary Discharge Diagnosis Active and Suspected Problems (Last Reviewed 07/22/19 @ 09:42 by Tashia Cedeno) Chest pain (Acute) - Secondary Discharge Diagnosis Chronic Problems (Last Reviewed 07/22/19 @ 09:42 by Tashia Cedeno) Rheumatoid arthritis (Chronic) BRANDON (obstructive sleep apnea) (Chronic) CPAP 10 cm of water Asthma (Chronic) Carotid artery stenosis (Chronic) HLD (hyperlipidemia) (Chronic) Sinus bradycardia (Chronic) Shortness of breath (Chronic) Ywlpr-Klfplruoa-Tkbfd (WPW) syndrome (Chronic) Presence of cardiac pacemaker (Chronic 12/08/12) Sick sinus syndrome (Chronic) Paroxysmal atrial fibrillation (Chronic) Old myocardial infarction (Chronic) History of left heart catheterization (Chronic 08/02/19) 08/22/2016; 08/02/2019 per JOSSELIN @ [facility] Asthma (Chronic) Obstructive sleep apnea (Chronic) CVA (cerebral vascular accident) (Chronic) TIA (transient ischemic attack) (Chronic) History of coronary artery stent placement (Chronic 07/23/13) PCI-MELL-LAD Atherosclerosis of coronary artery of [place] heart without angina pectoris (Chronic) PCI-MELL-LAD Hypertension (Chronic) 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 Electronically Signed: Polo Manzanares MD at 15:25 EST , Service support , Abdomen X-Ray 07/29/19 18:00 IMPRESSION: Nonspecific bowel gas pattern without obvious obstruction. Electronically Signed: Filippo Johns DO at 20:44 EST Tel [phone], Service support , Summary of Care Provided: The patient is a 68 year old M admitted with chest pressure. Patient was also found to have runs of paroxysmal A. fib with rapid ventricular rate 1. Chest pain admitted to monitored bed did rule out TX with serial cardiac enzymes cardiology consulted patient underwent left heart catheterization on 08/02/2019. Patient left heart cath did demonstrate a widely patent LAD stent and nonobstructive disease with normal LV function. 2. Paroxysmal A. fib; interrogation of patient pacemaker revealed episodes of rapid A. fib which apparently self terminated. Seen in consultation again by cardiology recommendation was to start patient on amiodarone prescription written as recommended by cardiology. Patient is also in Xarelto patient to resume Xarelto on 08/05/2019 3. Coronary artery disease with previous LAD stent left heart cath report as stated above 4. Hypertension ~ blood pressure controlled, home medications continued with dose adjustment as needed 5. Rheumatoid arthritis 6. Obstructive sleep apnea Patient Problems: Active and Suspected Problems (Last Reviewed 07/22/19 @ 09:42 by Tashia Cedeno) Chest pain (Acute) - Physical Exam Vitals/I&O's: Vital Signs Temp Pulse Resp BP Pulse Ox 98.3 F 61 14 109/66 95 08/02/19 09:20 08/02/19 11:02 08/02/19 10:20 08/02/19 10:20 08/02/19 10:20 Oxygen Flow Rate (L/min) 2 Oxygen Delivery Method Room Air Weight: 78.5 kg Body Mass Index (BMI) 25.5 Intake and Output for Last 24 Hours 07/31/19 08/01/19 08/02/19 23:59 23:59 23:59 Intake Total 300 / 300 720 / 720 50 / 50 Balance 300 / 300 720 / 720 50 / 50 General: Alert HEENT: Atraumatic Neck: Supple Cardiovascular: Regular rate Neurological: Neuro grossly intact Psych/Mental Status: Normal Affect Current Medications Acetaminophen (Tylenol) 650 mg PO Q6H PRN PRN PRN Reason: Pain Score 1-10/10 Last Admin: 08/01/19 22:26 Dose: 650 mg Documented by: Aspirin (Ecotrin) 81 mg PO DAILY@1800 [facility] Last Admin: 08/02/19 06:04 Dose: 81 mg Documented by: Atorvastatin Calcium (Lipitor) 40 mg PO QHS [facility] Last Admin: 08/01/19 21:29 Dose: 40 mg Documented by: Diltiazem HCl (Cardizem Cd) 180 mg PO DAILY [facility] Last Admin: 08/02/19 06:04 Dose: 180 mg Documented by: Duloxetine HCl (Cymbalta) 20 mg PO DAILY [facility] Last Admin: 08/02/19 09:31 Dose: 20 mg Documented by: [facility] Admin: 08/02/19 09:31 Dose: 2 mg Documented by: Heparin Sodium (Beef Lung) (Heparin 500 Unit/5 Ml (100/Ml)) 500 unit IV UD PRN PRN Reason: HEPARIN FLUSH Sodium Chloride () 1,000 mls @ 0 mls/hr IV .Q0M [facility] Last Admin: 08/02/19 06:55 Dose: 15 mls/hr Documented by: Methotrexate (Methotrexate) 15 [address] [facility] Last Admin: 07/31/19 09:56 Dose: Not Given Documented by: Nitroglycerin (Nitrostat) 0.4 mg SUBLINGUAL Q5M PRN PRN Reason: CARDIAC/CHEST PAIN Last Admin: 08/01/19 22:10 Dose: 1 tab Documented by: Nutritional Formula (Lactose Free) (Ensure Enlive) 120 ml PO 4X/DAY [facility] Last Admin: 08/02/19 09:31 Dose: Not Given Documented by: Ramipril (Altace) 5 mg PO DAILY [facility] Last Admin: 08/02/19 06:04 Dose: 5 mg Documented by: Sodium Chloride () 10 - 40 ml IV UD PRN PRN Reason: SALINE FLUSH Discharge Diet: No Restrictions Discharge Activity: Return to Normal Activity Home Medications: Medications to take at Discharge duloxetine 20 mg capsule,delayed release 20 mg PO DAILY cap 06/24/18 nitroglycerin 0.4 mg sublingual tablet 0.4 mg SUBLINGUAL Q5M PRN #25 tab 02/11/19 diltiazem HCl 180 mg capsule,extended release 24 hr 180 mg PO DAILY #90 cap 06/10/19 methotrexate sodium 2.5 mg tablet 15 mg PO SA tab 06/10/19 rosuvastatin 20 mg tablet 20 mg PO DAILY #90 tab 06/10/19 ramipril 5 mg capsule 5 mg PO DAILY #90 cap 07/09/19 rivaroxaban 20 mg tablet 20 mg PO DAILY #30 tab 07/26/19 Aspirin E.C. [Ecotrin] 81 mg PO DAILY@1800 07/29/19 Folic Acid 2 mg PO DAILY 07/29/19 Amiodarone HCl [Cordarone] 200 mg PO DAILY #90 tab 08/02/19 Following Prescrptions Were Given to Patient: Amiodarone HCl [Cordarone] 200 mg PO DAILY #90 tab Prescription Printed Primary Care Physician: Paresh Carranza MD [Primary Care Provider] - Please follow up with your Primary Care Physician in: in 5-7 dayas Please Follow Up With: Syd Hollingsworth MD When: in 2-3 weeks Disposition: Home Minutes spent on discharge:: 35 Medical Necessity - Tobacco Use Smoking Status: Never smoker Meaningful Use Info Meaningful Use Diagnoses (Choose all that apply): None applicable Code Visit Inpatient E&M: 79600 Disch Hosp
--- NOTE | 2019-08-02 11:55 | PHA.DC.MC ---
Pharmacy Service has performed discharge medication reconciliation and counseling for this patient. 1. AMIODARONE 400MG PO BID X 3 DAYS, THEN 200MG PO DAILY THEREAFTER The patient's discharge medication list was reviewed for discrepancies and discrepancies were resolved. Home Medications duloxetine 20 mg capsule,delayed release 20 mg PO DAILY cap 06/24/18 nitroglycerin 0.4 mg sublingual tablet 0.4 mg SUBLINGUAL Q5M PRN #25 tab 02/11/19 diltiazem HCl 180 mg capsule,extended release 24 hr 180 mg PO DAILY #90 cap 06/10/19 methotrexate sodium 2.5 mg tablet 15 mg PO SA tab 06/10/19 rosuvastatin 20 mg tablet 20 mg PO DAILY #90 tab 06/10/19 ramipril 5 mg capsule 5 mg PO DAILY #90 cap 07/09/19 rivaroxaban 20 mg tablet 20 mg PO DAILY #30 tab 07/26/19 Aspirin E.C. [Ecotrin] 81 mg PO DAILY@1800 07/29/19 Folic Acid 2 mg PO DAILY 07/29/19 Amiodarone HCl [Cordarone] 200 mg PO DAILY #90 tab 08/02/19 The patient was counseled on the following discharge medications and changes in medications for homegoing were reviewed. The Reason for Use, instructions for use, and potential side effects were reviewed for all new medications. The patient's questions regarding all of their medications were answered. The patient was able to verbally demonstrate an understanding of their discharge medications.
--- NOTE | 2019-08-06 16:22 | CASEMGMT ---
RODRIGUEZ TAVAREZ Discharge Follow-Up Phone Call. Cherise: Michel Strata: 3 Discharge Date: 08/02/19 Adm Dx: CP Call to pt to inquire about how he has been doing since being discharged from the hospital. Pt stated he is doing well and has been resting. He states he was able to picker / packer the Amiodarone and denies having any questions about it or his other medications. He is aware of the upcoming appts with Dr Carranza and Dr Hollingsworth. He denies having any concerns/needs. RODRIGUEZ TAVAREZ thanked pt for choosing [facility]. Jorden KENT RN, CM
== END 2019-08-02 13:14 | disposition home or self-care (01) | DRG 287 ==
LOC: ED 16:12 → PCU 19:40
PROVIDERS: Emergency Medicine; Admitting Provider Family Medicine; Emergency Provider Emergency Medicine; Family Provider Family Medicine; PCP Family Medicine; Referring Provider Family Medicine; Visit Provider Internal Medicine
DX: R07.9 Chest pain, unspecified (principal); I48.0 Paroxysmal atrial fibrillation; E78.5 Hyperlipidemia, unspecified; I49.5 Sick sinus syndrome; I25.10 Atherosclerotic heart disease of native coronary artery without angina pectoris; I10 Essential (primary) hypertension; M06.9 Rheumatoid arthritis, unspecified; Z95.0 Presence of cardiac pacemaker; Z95.5 Presence of coronary angioplasty implant and graft; G47.33 Obstructive sleep apnea (adult) (pediatric); J45.909 Unspecified asthma, uncomplicated; I25.2 Old myocardial infarction; Z79.01 Long term (current) use of anticoagulants; I45.6 Pre-excitation syndrome; I65.29 Occlusion and stenosis of unspecified carotid artery
CPT/HCPCS: 36415; 71045; 74019; 80048; 83735; 84100; 84443; 84484; 85025; 93005; 93458; 97802; 99285; J7030; C1769; C1894; Q9967

== ENCOUNTER → 2019-09-01 09:24 | Outpatient (CLI) | payer MEDICARE, OTHER, SELFPAY ==
[2019-08-26 10:33] VITALS: BMI 25.7
[2019-09-01 10:22] LABS: Absolute Lymphocyte Count 1.76 X10^3/uL (0.83-4.51); Absolute Neutrophil Count 5.8 X10^3/uL (2.0-7.7); Basophil# 0.02 X10^3/uL; Basophil% 0.2 % (0-1); Eosinophil# 0.04 X10^3/uL; Eosinophils% 0.5 % (0-5); Hematocrit 43.6 % (40-54); Hemoglobin 14.3 g/dL (13.0-16.5); Lymphocyte # 1.76 X10^3/ul (4.0); Lymphocyte % 21.4 % (19-41); Mean Corp Hgb Conc 32.8 g/dL (32-36); Mean Corpuscular Volume 97.5 fL (80-94); Mean Platelet Vol. 9.2 fl (6.2-12.0); Monocyte# 0.57 X10^3/uL; Monocyte% 6.9 % (0-10); NRBC Flagged by Analyzer 0 % (0-5); Neutrophil # 5.79 X10^3/uL (2.7-7.7); Neutrophil % 70.6 % (47-70); Platelet Count 218 K/mm3 (150-450); RBC Distribution Width CV 14.6 % (11.6-14.6); RBC Distribution Width SD 51.2 fl (35.1-43.9); Red Blood Count 4.47 M/mm3 (4.6-6.2); White Blood Count 8.2 K/mm3 (4.4-11.0)
[2019-09-01 10:59] LABS: ALB/GLOB Ratio 1.3 RATIO (0.9-2.4); AST(SGOT) 18 U/L (15-37); Alanine Aminotransfer ALT/SGPT 34 U/L (16-61); Albumin, Serum 3.6 g/dL (3.2-5.0); Alkaline Phosphatase 60 U/L (45-117); Anion Gap 3 (5-15); BUN 24 mg/dL (7-18); BUN/Creat Ratio 17.5 RATIO (10-20); Bilirubin, Direct 0.25 mg/dL (0.00-0.30); Calcium,Total 9.4 mg/dL (8.5-10.1); Chloride 105 mmol/L (98-107); Cholesterol 113 mg/dL (200); Creatinine, Serum 1.37 mg/dL (0.70-1.30); EST Glomerular Filtration Rate 55 mL/min (>60); Est Glom Filt Rate - Afr Amer 66 mL/min (>60); Globulin 2.8 g/dL (2.2-4.2); Glucose 95 mg/dL (74-106); High Density Lipoprotein 61 mg/dL; Protein, Total 6.4 g/dL (6.4-8.2); Sodium Level 139 mmol/L (136-145); Triglycerides 50 mg/dL; Very Low Density Lipoprotein 10 mg/dL (5-40)
== END ==
LOC: LAB 09:27
PROVIDERS: Internal Medicine Cardiovascular Disease; PCP Family Medicine; Referring Provider Internal Medicine Rheumatology; Visit Provider Internal Medicine Rheumatology
DX: M06.4 Inflammatory polyarthropathy (principal); M21.40 Flat foot [pes planus] (acquired), unspecified foot; M47.892 Other spondylosis, cervical region; M47.894 Other spondylosis, thoracic region; M47.897 Other spondylosis, lumbosacral region; I10 Essential (primary) hypertension; I25.10 Atherosclerotic heart disease of native coronary artery without angina pectoris; E78.5 Hyperlipidemia, unspecified; I48.91 Unspecified atrial fibrillation; G47.33 Obstructive sleep apnea (adult) (pediatric); Z95.5 Presence of coronary angioplasty implant and graft; E78.00 Pure hypercholesterolemia, unspecified
CPT/HCPCS: 36415; 80053; 80061; 82248; 85025

== ENCOUNTER → 2019-12-03 09:36 | Outpatient (CLI) | payer MEDICARE, OTHER, SELFPAY ==
[2019-10-11 10:00] VITALS: BMI 25.7
[2019-12-03 10:40] LABS: Absolute Lymphocyte Count 1.24 X10^3/uL (0.83-4.51); Absolute Neutrophil Count 3.7 X10^3/uL (2.0-7.7); Basophil# 0.04 X10^3/uL; Basophil% 0.7 % (0-1); Eosinophil# 0.04 X10^3/uL; Eosinophils% 0.7 % (0-5); Hematocrit 42.4 % (40-54); Hemoglobin 13.8 g/dL (13.0-16.5); Lymphocyte # 1.24 X10^3/ul (4.0); Lymphocyte % 22.1 % (19-41); Mean Corp Hgb Conc 32.5 g/dL (32-36); Mean Corpuscular Hgb 32.2 pg (27.0-32.0); Mean Corpuscular Volume 99.1 fL (80-94); Mean Platelet Vol. 9.3 fl (6.2-12.0); Monocyte# 0.56 X10^3/uL; NRBC Flagged by Analyzer 0 % (0-5); Neutrophil # 3.71 X10^3/uL (2.7-7.7); Neutrophil % 66.1 % (47-70); Platelet Count 277 K/mm3 (150-450); RBC Distribution Width CV 14.5 % (11.6-14.6); Red Blood Count 4.28 M/mm3 (4.6-6.2); White Blood Count 5.6 K/mm3 (4.4-11.0)
[2019-12-03 11:10] LABS: ALB/GLOB Ratio 1.3 RATIO (0.9-2.4); AST(SGOT) 23 U/L (15-37); Alanine Aminotransfer ALT/SGPT 34 U/L (16-61); Albumin, Serum 3.8 g/dL (3.2-5.0); Alkaline Phosphatase 68 U/L (45-117); Anion Gap 4 (5-15); BUN 17 mg/dL (7-18); BUN/Creat Ratio 12.9 RATIO (10-20); Calcium,Total 9.3 mg/dL (8.5-10.1); Chloride 106 mmol/L (98-107); Creatinine, Serum 1.32 mg/dL (0.70-1.30); EST Glomerular Filtration Rate 57 mL/min (>60); Est Glom Filt Rate - Afr Amer 69 mL/min (>60); Globulin 2.9 g/dL (2.2-4.2); Glucose 92 mg/dL (74-106); Potassium 3.8 mmol/L (3.5-5.1); Protein, Total 6.7 g/dL (6.4-8.2); Sodium Level 140 mmol/L (136-145)
== END ==
PROVIDERS: PCP Family Medicine; Referring Provider Internal Medicine Rheumatology; Visit Provider Internal Medicine Rheumatology
DX: M06.4 Inflammatory polyarthropathy (principal); M21.40 Flat foot [pes planus] (acquired), unspecified foot; M47.892 Other spondylosis, cervical region; M47.894 Other spondylosis, thoracic region; M47.897 Other spondylosis, lumbosacral region; I10 Essential (primary) hypertension; I25.10 Atherosclerotic heart disease of native coronary artery without angina pectoris; E78.5 Hyperlipidemia, unspecified; I48.91 Unspecified atrial fibrillation; G47.33 Obstructive sleep apnea (adult) (pediatric)
CPT/HCPCS: 36415; 80053; 85025

== ENCOUNTER 2019-12-11 11:42 | Emergency (ER) | payer OTHER, SELFPAY ==
[2019-10-11 10:00] VITALS: BMI 25.7
[2019-12-11 11:43] VITALS: BP 163/76; PULSE 61; RESP 16; TEMP 36.6; O2SAT 98; BMI 24.3
--- NOTE | 2019-12-11 11:54 | CT_ITS ---
STUDY: CT CERVICAL SPINE WITHOUT CONTRAST REASON FOR EXAM: Male, 69 years old. FALL AND ON BLOOD THINNERS RADIATION DOSAGE (If Supplied By Facility): CTDIvol = ( 22.16 ) mGy, DLP = ( 471.74 ) mGycm TECHNIQUE: High resolution transaxial imaging was performed without contrast material. Sagittal and coronal images were reconstructed. Individualized dose optimization techniques were used for this CT. COMPARISON: February 14, 2016 FINDINGS: Normal craniovertebral junction. Normal anterior atlantoaxial articulation. Normal odontoid process. Normal cervical lordosis. Normal vertebral bodies and posterior osseous elements. C2-3: Spurring at the endplates. Narrowed disc height. Normal central canal and intervertebral neuroforamina. C3-4: Spurring at the endplates. Narrowed disc height. Normal central canal. Uncovertebral spurring slightly narrowing the intervertebral neuroforamina. C4-5: Mild spurring at the endplates. Normal disc height with slight posterior annular bulge. Normal central canal. Uncovertebral spurring slightly protruding into the intervertebral neuroforamina. C5-6: Mild spurring at the endplates. Narrowed disc height. Normal central canal. Uncovertebral spurring slightly narrowing the intervertebral neuroforamina. C6-7: Mild spurring at the endplates. Narrowed disc height. Normal central canal. Uncovertebral spurring narrowing the intervertebral neuroforamina. C7-T1: Normal endplates. Normal disc height and morphology. Normal central canal and intervertebral neuroforamina. Normal visualized soft tissue structures. CT/Spine Cervical without Contras IMPRESSION: Degenerative changes. No acute bony injury of the cervical spine. Electronically Signed: Jeremiah Chapman DO at 12:52 EDT Tel [phone], Service support ,
--- NOTE | 2019-12-11 11:54 | CT_ITS ---
STUDY: CT BRAIN WITHOUT CONTRAST REASON FOR EXAM: Male, 69 years old. FALL AND ON BLOOD THINNERS RADIATION DOSAGE (If Supplied By Facility): CTDIvol = ( 44.99 ) mGy, DLP = ( 796.11 ) mGycm TECHNIQUE: Transaxial CT imaging of the brain was performed without administration of intravenous contrast material. Individualized dose optimization techniques were used for this CT. COMPARISON: September 26, 2018 FINDINGS: Normal soft tissue structures. Normal calvarium. Normal size ventricles and extra-axial spaces for the patient''s age. Normal white matter tracts of the cerebral hemispheres. Normal basal ganglia and thalami. Normal brainstem. Normal cerebellum. There is no intracranial hemorrhage. There are no findings of an acute ischemic infarction. Normal visualized paranasal sinuses. CT/Brain/Head without Contrast IMPRESSION: Normal unenhanced CT scan of the brain. Electronically Signed: Jeremiah Chapman DO at 12:41 EDT Tel [phone], Service support ,
--- NOTE | 2019-12-11 12:00 | RAD_ITS ---
STUDY: X-RAY - PELVIS REASON FOR EXAM: Male, 69 years old. SLIPPED AND FELL PAIN ENTIRE PELVIS AND BACK TECHNIQUE: One view of the pelvis was obtained. COMPARISON: None. FINDINGS: There is a non-specific bowel gas pattern. Normal visualized soft tissue structures. Lower lumbar postsurgical changes with surgical fusion. Normal bilateral iliac wings, sacroiliac joints and visualized sacrum. Normal visualized bilateral superior and inferior pubic rami. Normal pubic symphysis. Normal ischial tuberosities. Normal visualized right femoral head. Normal right acetabulum. Normal right hip joint. Normal visualized left femoral head. Normal left acetabulum. Normal left hip joint. RAD/Pelvis 1 or 2 Views IMPRESSION: No acute bony injury of the pelvis. Electronically Signed: Jeremiah Chapman DO at 13:00 EDT Tel [phone], Service support ,
--- NOTE | 2019-12-11 12:00 | RAD_ITS ---
STUDY: X-RAY CHEST REASON FOR EXAM: Male, 69 years old. SLIPPED AND FELL ;PAIN ENTIRE PELVIS AND BACK TECHNIQUE: Frontal view COMPARISON: July 29, 2019 FINDINGS: Stable right-sided pacemaker. The lungs are clear and expanded. There is no demonstrated pleural abnormality. Normal size heart. Normal mediastinum and paige. Normal visualized pulmonary arteries. Normal visualized aortic arch and descending thoracic aorta. Mild degenerative changes of the thoracic spine. Normal visualized ribs, clavicles, and shoulders. There is no demonstrated abnormality of the visualized soft tissue structures of the upper abdomen. RAD/Chest 1 View (Portable) IMPRESSION: Normal x-ray examination of the chest. Electronically Signed: Jeremiah Chapman DO at 12:57 EDT Tel [phone], Service support ,
--- NOTE | 2019-12-11 12:09 | ED.VIS.GEN ---
History of Present Illness Chief Complaint: Fall Narrative: 69-year-old male who is on oral anticoagulants for atrial fibrillation presents with a head injury. He was standing on a three-foot platform by a grain brain when he slipped on ice and fell backwards striking his head and thoracic spine. He did not lose consciousness. He recalls all details the event. Able to get back up on his own. No extremity pain. Abrasion to left elbow but no pain. Onset sudden. Severity mild. Capacity - Capacity Assessment Tool Can the patient make a choice & communicate that choice?: Yes Past Medical History - Allergies and Home Meds Allergies/Adverse Reactions: Allergies Sulfa (Sulfonamide Antibiotics) Allergy (Mild, Verified 12/11/19 11:44) Rash clopidogrel [From Plavix] Adverse Reaction (Severe, Verified 12/11/19 11:44) Other - genetic nonresponder, needs brillinta metoprolol [From Lopressor] Adverse Reaction (Mild, Verified 12/11/19 11:44) - bronchospasm nystatin Adverse Reaction (Unknown, Verified 12/11/19 11:44) Unknown MEDICAL TAPE Adverse Reaction (Uncoded 12/11/19 11:44) Itching Primary Care Physician: Paresh Carranza MD [Primary Care Provider] - Surgical History: herniorrhaphy Smoking Status: Never smoker Review of Systems General: Denies: Chills, Fever, Sweats Eyes: Denies: Visual changes - bilaterally, Diplopia ENT: Denies: Rhinorrhea, Sore throat Cardiovascular: Denies: Chest pain, Palpitations Respiratory: Denies: Dyspnea, Cough, Dyspnea on exertion Gastrointestinal: Denies: Abdominal pain, Nausea, Vomiting, Diarrhea, Melena, Hematochezia Genitourinary: Denies: Dysuria, Hematuria, Frequency Musculoskeletal: Reports: Neck pain, Back pain. Denies: Extremity Pain Skin: Reports: Abrasions, Wounds. Denies: Rash Neurological: Reports: Headache. Denies: Weakness, Numbness Psych: Denies: Depression Hematologic: Denies: Easy bleeding Physical Exam Vital Signs/Narrative: Vital Signs Temp Pulse Resp BP Pulse Ox 12/11/19 11:43 97.9 F 61 16 163/76 H 98 General: Well nourished, Well developed, Acute Distress Head: Normocephalic, Trauma - left posterior parietal scalp, not full thickness. no active bleeding. Eyes: Perrl, EOMI ENT: Moist mucous membranes, No rhinorrhea Neck: Supple, Nontender Cardiovascular: Regular rate, Regular rhythm, No murmurs Respiratory: No distress, CTA bilaterally, Chest nontender Abdomen: Soft, Nontender, Nondistended, Normal bowel sounds Back: Nontender, Normal Inspection Extremities: Nontender, No edema Skin: Normal color, - - abrasions left elbow, no active bleeding. Neurological: Alert, Oriented x3, Cranial nerves II-XII grossly intact, Normal Strength, Normal Sensation Psychological: Normal affect, Normal Mood Diagnostic/Tx/Re-eval - Medical Decision Making The fall was mechanical. Neurologic exam is normal. GCS is 15. CT brain and cervical spine both negative. He has a wedge compression deformity of a thoracic vertebra but it does not appear acute. He has no midline tenderness there. Chest and pelvis x-ray both negative. He does have a superficial scalp laceration but it is fairly small. We discussed sutures however it is not actively bleeding and is fairly small and superficial in size. I feel it is safe to let this heal by secondary intention. He has normal neurologic exam. Family will be with him at home. Concussion precautions explained. Return precautions explained at length. He will return if he develops headache, any abnormal neurologic symptoms, or confusion. ED Disposition - Plan for ED Patient: Disposition: Home or Assisted Living Diagnosis: Concussion without loss of consciousness, initial encounter, Contusion of back wall of thorax, Cervical sprain, Abrasions of multiple sites Instructions: ED Sprain Strain Neck, ED Concussion Referrals: Paresh Carranza MD [Primary Care Provider] -
--- NOTE | 2019-12-11 12:14 | CT_ITS ---
STUDY: CT THORACIC SPINE WITHOUT CONTRAST REASON FOR EXAM: Male, 69 years old. FALL RADIATION DOSAGE (If Supplied By Facility): CTDIvol = ( 26.72 ) mGy, DLP = ( 1070.26 ) mGycm TECHNIQUE: The patient was scanned in a multi detector CT scanner. High resolution imaging was performed. Images were obtained from C7 to L1. Sagittal and coronal images were reconstructed. Individualized dose optimization techniques were used for this CT. COMPARISON: None. FINDINGS: Normal visualized cervical spine. Normal kyphosis of the thoracic spine. There is no substantial scoliosis. Minimal nonacute wedge compression of T8. Mild degenerative spurring at the mid thoracic endplates. Normal disc spaces heights. The soft tissue structures are unremarkable. CT/Spine Thoracic without Contras IMPRESSION: Mild degenerative changes of the thoracic spine. Minimal wedge compression of T8. Electronically Signed: Jeremiah Chapman DO at 13:30 EDT Tel [phone], Service support ,
[2019-12-11] MEDS: Diphth,Pertuss(Acell),Tet Vac 0.5 ML Vial IM (12:17)
[2019-12-11 13:34] VITALS: BP 204/85; PULSE 60; RESP 16; O2SAT 100
[2019-12-11 14:04] VITALS: BP 203/89; PULSE 60; RESP 18; O2SAT 99
--- OUTSIDE RECORDS SUMMARY | 2020-05-16 08:00 | XMS RPT_ITS | CCD ---
:1950 External Reference #:[id number] [facility] Care Team Providers Name Role Phone Shelton GRAD[employer] 7 AND 8 VISITING TEACHER, S Unavailable Dossi DC, B Unavailable DeFinis, Y Unavailable Unavailable Roof DRAPERY CUTTER, H Unavailable Mary RN, A Unavailable Unavailable RODRIGUEZ Mcgee, M Unavailable Unavailable Champion PEST CONTROL SUPERVISOR, Sierra Unavailable Unavailable Champion PEST CONTROL SUPERVISOR, Sierra Unavailable Unavailable Nadja Lee Unavailable Unavailable Judie AMBROSIO, D Unavailable Nadja Dupont Unavailable Unavailable Nadja Dupont Unavailable Unavailable Dossi DC, B Unavailable MD Darrick, J Unavailable Daniel Unavailable Unavailable Bobby Unavailable Unavailable Unknown, Referring Provider Unavailable Unavailable Iceman Unavailable Unavailable CYNDI ROSENBAUM, L Attending Unavailable SELF Referring Unavailable HANNA BURCHETANE, L Attending Unavailable SELF Referring Unavailable HANNA BURCHETANE, L Attending Unavailable SHARP Referring Unavailable Allergies Reported Allergen Reaction(s) Severity Date of Location Onset clopidogrel Genetic Critical, 09-09-2016 - [facility] non-responder, Critical Chiropractic needs brilinta (55707) metoprolol brochospasm Severe, Severe 09-09-2016 - [facility] [place] (446 91) metoprolol brochospasm Critical, 09-09-2016 - [facility] [place] (446 91) sulfaSALAzine rash Moderate, 08-25-2012 - [facility] Moderate [facility] [place] (446 91) Sulfonamides Critical, 08-25-2012 - [facility] (Antibiotic) [facility] [place] (446 91) Medications Medication Name Sig Date Prescriber Location albuterol ALBUTEROL SULFATE 06-03-2017 Yaahalina Champion [facility] (2.5 MG/3ML) 0.083% PEST CONTROL SUPERVISOR [facility] [place] (12688) NEBU 1 ampule inhaled every 4 hours PRN shortness of breath asthma J45.909 ALBUTEROL SULFATE [id number] Kathie Shelton CNP aspirin ASPIRIN 81 MG TABS 09-02-2012 [facility] tablet by mouth Chiropra [facility]tic (58506) daily ASPIRIN [id number] Paresh Braswell MD ASPIRIN 81 MG TABS One tablet by mouth 09-02-2012 [facility]rop[facility] (65026) daily ASPIRIN [id number] Paresh Braswell MD ASPIRIN EC 81 MG TBEC One tablet by 09-02-2012 [facility] Chiropract[facility] (63724) mouth daily ASPIRIN [id number] Sarah Mixon RN atorvastatin LIPITOR 20 MG TABS 1/2 tablet 07-08-2013 [facility] by mouth daily (4 4691) ATORVASTATIN CALCIUM [id number] Paresh Braswell MD LIPITOR 20 MG TABS One tablet by mouth 09-02-2012 [facility] (71538) daily ATORVASTATIN CALCIUM [id number] Paresh Braswell MD Budesonide BUDESONIDE 0.5 MG/2ML 06-03-2017 Yaa Champion [facility] SUSP 1 INH twice daily PEST CONTROL SUPERVISOR (4469 1) asthma J45.909 BUDESONIDE [id number] Kathie Shelton CNP PULMICORT FLEXHALER 180 12-31-2016 - 06-03-2017 [facility] MCG/ACT AEPB INH 2 puffs (76135) twice daily BUDESONIDE [id number] Anu Dupont PULMICORT FLEXHALER 180 12-31-2016 Yaa Champion [facility] [facility] MCG/ACT AEPB INH 2 puffs PEST CONTROL SUPERVISOR (86992) twice daily BUDESONIDE [id number] Kathie Shelton CNP PULMICORT FLEXHALER 180 12-31-2016 Yaa Champion [facility] MCG/ACT AEPB INH 2 puffs PEST CONTROL SUPERVISOR (55681) twice daily BUDESONIDE [id number] Kathie Shelton [facility] PULMICORT FLEXHALER 180 12-31-2016 Yaa Champion [facility] MCG/ACT AEPB INH 2 puffs PEST CONTROL SUPERVISOR (14933) twice daily BUDESONIDE [id number] Kathie Shelton [facility] PULMICORT FLEXHALER 180 12-31-2016 Yaadontrell Champion [facility] MCG/ACT AEPB INH 2 puffs PEST CONTROL SUPERVISOR (76326) twice daily BUDESONIDE [id number] Kathie Shelton [facility] PULMICORT FLEXHALER 180 12-31-2016 Yaadontrell Araizaach [facility] MCG/ACT AEPB INH 2 puffs PEST CONTROL SUPERVISOR (11916) twice daily BUDESONIDE [id number] Kathie Shelton [facility] PULMICORT FLEXHALER 180 12-31-2016 Yaadontrell Araizaach [facility] MCG/ACT AEPB INH 2 puffs PEST CONTROL SUPERVISOR (66893) twice daily BUDESONIDE [id number] Kathie Shelton [facility] PULMICORT FLEXHALER 180 12-31-2016 Yaadontrell Champion [facility] MCG/ACT AEPB INH 2 puffs PEST CONTROL SUPERVISOR (36423) twice daily BUDESONIDE [id number] Kathie Shelton [facility] PULMICORT FLEXHALER 180 12-31-2016 Yaadontrell Champion [facility] MCG/ACT AEPB INH 2 puffs PEST CONTROL SUPERVISOR (78424) twice daily BUDESONIDE [id number] Kathie Shelton [facility] PULMICORT FLEXHALER 180 12-31-2016 Yaadontrell Araizaach [facility] MCG/ACT AEPB INH 2 puffs PEST CONTROL SUPERVISOR (07003) twice daily BUDESONIDE [id number] Kathie Shelton [facility] PULMICORT FLEXHALER 180 12-31-2016 Yaadontrell Araizaach [facility] MCG/ACT AEPB INH 2 puffs PEST CONTROL SUPERVISOR (80960) twice daily BUDESONIDE [id number] Kathie Shelton [facility] PULMICORT FLEXHALER 180 12-31-2016 Yaa Champion [facility] MCG/ACT AEPB INH 2 puffs PEST CONTROL SUPERVISOR (51118) twice daily BUDESONIDE [id number] Kathie Garvin Shelton GRADES 7 AND 8 VISITING TEACHER PULMICORT FLEXHALER 180 12-31-2016 Yaa Champion [facility] MCG/ACT AEPB INH 2 puffs PEST CONTROL SUPERVISOR (35590) twice daily BUDESONIDE [id number] Kathie S Nikita GRADES 7 AND 8 VISITING TEACHER PULMICORT FLEXHALER 180 2016 - 12-03-2016 [facility] MCG/ACT AEPB 2 puffs INH (68790) BID BUDESONIDE [id number] Bladimir Wilson DO PULMICORT FLEXHALER 180 2016 - 12-03-2016 [facility] MCG/ACT AEPB 2 puffs INH (15369) BID BUDESONIDE [id number] Bladimirnona Wilson DO PULMICORT FLEXHALER 180 2016 Bladimirnona Wilson DO [facility] MCG/ACT AEPB 2 puffs INH (11275) BID BUDESONIDE [id number] Bladimirnona Wilson DO PULMICORT FLEXHALER 180 2016 - 12-03-2016 [facility] MCG/ACT AEPB 2 puffs INH (89201) BID BUDESONIDE [id number] Bladimirnona Wilson DO PULMICORT FLEXHALER 180 2016 Bladimirnona Wilson DO [facility] MCG/ACT AEPB 2 puffs INH (64706) BID BUDESONIDE [id number] Bladimirnona Wilson DO PULMICORT FLEXHALER 180 2016 - 12-03-2016 [facility] MCG/ACT AEPB 2 puffs INH (11809) BID BUDESONIDE [id number] Bladimirnona Wilson DO PULMICORT FLEXHALER 180 2016 Bladimirnona Wilson DO [facility] MCG/ACT AEPB 2 puffs INH (98537) BID BUDESONIDE [id number] Baldimirnona Wilson DO PULMICORT FLEXHALER 180 2016 Bladimirnona Wilson DO [facility] MCG/ACT AEPB 2 puffs INH (83418) BID BUDESONIDE [id number] Bladimirnona Wilson DO PULMICORT FLEXHALER 180 2016 - 12-03-2016 [facility] MCG/ACT AEPB 2 puffs INH (06997) BID BUDESONIDE [id number] Bladimirnona Wilson DO PULMICORT FLEXHALER 180 2016 Bladimirnona Wilson DO [facility] MCG/ACT AEPB 2 puffs INH (12190) BID BUDESONIDE [id number] Bladimirnona Wilson DO PULMICORT FLEXHALER 180 2016 - 12-03-2016 [facility] MCG/ACT AEPB 2 puffs INH (96790) BID BUDESONIDE [id number] Bladimrinona Wilson DO PULMICORT FLEXHALER 180 2016 Bladimirnona Wilson DO [facility] MCG/ACT AEPB 2 puffs INH (53937) BID BUDESONIDE [id number] Bladimirnona Wilson DO PULMICORT FLEXHALER 180 2016 - 12-03-2016 [facility] MCG/ACT AEPB 2 puffs INH (58946) BID BUDESONIDE [id number] Bladimirnona Wilson DO PULMICORT FLEXHALER 180 2016 Bladimirnona Wilson DO [facility] MCG/ACT AEPB 2 puffs INH (07836) BID BUDESONIDE [id number] Bladimirnona Wilson DO PULMICORT FLEXHALER 180 2016 - 12-03-2016 [facility] MCG/ACT AEPB 2 puffs INH (60206) BID BUDESONIDE [id number] Bladimirnona Wilson DO PULMICORT FLEXHALER 180 2016 - 12-03-2016 [facility] MCG/ACT AEPB 2 puffs INH (33926) BID BUDESONIDE [id number] Bladimirnona Wilson DO PULMICORT FLEXHALER 180 2016 Bladimirnona Wilson DO [facility] MCG/ACT AEPB 2 puffs INH (94426) BID BUDESONIDE [id number] Bladimirnona Wilson DO PULMICORT FLEXHALER 180 2016 Bladimirnona Wilson DO [facility] MCG/ACT AEPB 2 puffs INH (78034) BID BUDESONIDE [id number] Bladimirnona Wilson DO PULMICORT FLEXHALER 180 2016 - 12-03-2016 [facility] MCG/ACT AEPB 2 puffs INH (45360) BID BUDESONIDE [id number] Bladimirnona Wilson DO PULMICORT FLEXHALER 180 2016 Bladimirnona Wilson DO [facility] [place] MCG/ACT AEPB 2 puffs INH (33534) BID BUDESONIDE [id number] Bladimirnona Wilson DO PULMICORT FLEXHALER 180 2016 - 12-03-2016 [facility] [place] MCG/ACT AEPB 2 puffs INH (37579) BID BUDESONIDE [id number] Bladimirnona Wilson DO PULMICORT FLEXHALER 180 2016 Bladimirnona Wilson DO [facility] MCG/ACT AEPB 2 puffs INH (66168) BID BUDESONIDE [id number] Bladimirnona Wilson DO PULMICORT FLEXHALER 180 2016 - 12-03-2016 [facility] [place] MCG/ACT AEPB 2 puffs INH (15448) BID BUDESONIDE [id number] Bladimirnona Wilson DO PULMICORT FLEXHALER 180 2016 - 12-03-2016 [facility] [place] MCG/ACT AEPB 2 puffs INH (01988) BID BUDESONIDE [id number] Bladimirnona Wilson DO PULMICORT FLEXHALER 180 2016 Bladimirnona Wilson DO [facility] MCG/ACT AEPB 2 puffs INH (12445) BID BUDESONIDE [id number] Bladimirnona Wilson DO PULMICORT FLEXHALER 180 2016 - 12-03-2016 [facility] MCG/ACT AEPB 2 puffs INH (33797) BID BUDESONIDE [id number] Bladimirnona Wilson DO PULMICORT FLEXHALER 180 2016 Bladimirnona Wilson DO [facility] MCG/ACT AEPB 2 puffs INH (98375) BID BUDESONIDE [id number] Bladimirnona Wilson DO PULMICORT FLEXHALER 180 2016 - 12-03-2016 [facility] MCG/ACT AEPB 2 puffs INH (09573) BID BUDESONIDE [id number] Bladimirnona Wilson DO PULMICORT FLEXHALER 180 2016 Bladimirnona Wilson DO [facility] MCG/ACT AEPB 2 puffs INH (95163) BID BUDESONIDE [id number] Bladimirnona Wilson DO PULMICORT FLEXHALER 180 2016 - 12-03-2016 [facility] MCG/ACT AEPB 2 puffs INH (06041) BID BUDESONIDE [id number] Bladimirnona Wilson DO PULMICORT FLEXHALER 180 2016 Bladimirnona Wilson DO [facility] MCG/ACT AEPB 2 puffs INH (46248) BID BUDESONIDE [id number] Bladimirnona Wilson DO PULMICORT FLEXHALER 180 2016 - 12-03-2016 [facility] MCG/ACT AEPB 2 puffs INH (10167) BID BUDESONIDE [id number] Bladimirnona Wilson DO PULMICORT FLEXHALER 180 2016 Bladimirnona Wilson DO [facility] MCG/ACT AEPB 2 puffs INH (56059) BID BUDESONIDE [id number] Bladimir Wilson DO PULMICORT FLEXHALER 180 2016 - 12-03-2016 [facility] MCG/ACT AEPB 2 puffs INH (84518) BID BUDESONIDE [id number] Bladimir Wilson DO PULMICORT FLEXHALER 180 2016 Bladimir Wilson DO [facility] MCG/ACT AEPB 2 puffs INH (33154) BID BUDESONIDE [id number] Bladimir Wilson DO cephalexin KEFLEX 500 MG CAPS One 12-23-2012 - 12-30-2012 [facility] tablet by mouth three (10105 ) times daily CEPHALEXIN [id number] Olga Price MD KEFLEX 500 MG CAPS One tablet 12-23-2012 - 12-30-2012 [facility] by mouth three times daily (4469 1) CEPHALEXIN [id number] Olga Price MD clopidogrel PLAVIX 75 MG TABS 07-30-2013 - [facility] One tablet by mouth 07-24-2016 (77967) daily x 30 days CLOPIDOGREL BISULFATE [id number] Paresh Braswell MD coenzyme q10 COQ-10 100 MG CAPS 08-25-2012 - [facility] tablet by mouth 05-10-2013 Chiropra ctic daily (41875) COENZYME Q10 [id number] Mirna Valles RN dilTIAZem CARDIZEM CD 120 MG 09-10-2016 Amisha Zavaleta [facility] [id number]-JBU One [place] [facility] [place] (44 691) tablet by mouth daily DILTIAZEM HCL COATED BEADS [id number] MD SHABANA FarrellZEM CD 120 MG 09-10-2016 Amisha Rand RN Pulmona ry Medicine of [id number] One tablet by [place] (90022) mouth daily DILTIAZEM HCL COATED BEADS 52516727791 MD SHABANA FarrellZEM CD 120 MG 09-10-2016 Amisha Rand RN Pulmon[facility] Medicine of [id number]-[id number] One tablet by [place] (92919) mouth daily DILTIAZEM HCL COATED BEADS 02894813828 MD ADRIENNE Farrell CD 120 MG 09-10-2016 Amisha Rand RN Pulmon[facility] of [id number]-GZS One tablet by [place] (27789) mouth daily DILTIAZEM HCL COATED BEADS 15749862485 MD ADRIENNE Farrell CD 120 MG 09-10-2016 Amisha Rand RN [facility] of EL80B-MFT One tablet by [place] (26901) mouth daily DILTIAZEM HCL COATED BEADS 84518309094 MD ADRIENNE Farrell CD 120 MG 09-10-2016 Amisha Rand RN Pul[facility] of RL73X-ZIY One tablet by [place] (96713) mouth daily DILTIAZEM HCL COATED BEADS 82311861381 MD ADRIENNE Farrell CD 120 MG 09-10-2016 Amisha Rand RN [facility] of EC96D-ASZ One tablet by [place] (46076) mouth daily DILTIAZEM HCL COATED BEADS 85784261542 MD ADRIENNE Farrell CD 120 MG 09-10-2016 Amisha Rand RN [facility] of HO12O-HKN One tablet by [place] (08085) mouth daily DILTIAZEM HCL COATED BEADS [id number] MD ADRIENNE Farrell CD 120 MG 09-10-2016 Amisha Rand RN [facility] of [id number]-VTM One tablet by [place] (04855) mouth daily DILTIAZEM HCL COATED BEADS 32454561815 MD KODY FarrellM CD 120 MG 09-10-2016 Amisha Rand RN [facility] of II46L-VMW One tablet by [place] (39553) mouth daily DILTIAZEM HCL COATED BEADS 12832265863 MD ADRIENNE Farrell CD 120 MG 09-10-2016 Amisha Rand RN [facility] of [id number]-ZKK One tablet by [place] (03223) mouth daily DILTIAZEM HCL COATED BEADS 36691154369 MD SHABANA FarrellZEM CD 120 MG 09-10-2016 Amisha Rand RN Pul[facility] of LM74I-FXJ One tablet by [place] (94107) mouth daily DILTIAZEM HCL [place]ATED BE[place] 57409954917 MD SHABANA FarrellZEM CD 120 MG 09-10-2016 Amisha Rand RN Pul[facility] of [id number]-VTB One tablet by [place] (48896) mouth daily DILTIAZEM HCL [place]ATED [place] 71563423569 MD SHABANA FarrellZEM CD 120 MG 09-10-2016 Amisha Rand RN [facility] of [id number]-[id number] One tablet by [place] (71962) mouth daily DILTIAZEM HCL COATED BEADS 47526658962 MD KODY FarrellM CD 120 MG 09-10-2016 Amisha Rand RN Pulmona [facility] Medicine of GA99N-EVW One tablet by [place] (93704) mouth daily DILTIAZEM HCL COATED BEADS 65311481273 MD SHABANA FarrellZEM CD 120 MG 09-10-2016 Amisha Rand RN Pulmona ry Medicine of YE19M-CNB One tablet by [place] (56179) mouth daily DILTIAZEM HCL COATED BEADS 60710161480 MD SHABANA FarrellZEM CD 120 MG 09-10-2016 Amisha Rand RN Pulmona ry Medicine of [id number]-TSY One tablet by [place] (75436) mouth daily DILTIAZEM HCL [place]ATED BEADS 21859924595 MD SHABANA FarrellZEM CD 120 MG 09-10-2016 Amisha Rand RN Pulmona ry Medicine of [id number]-YDA One tablet by [place] (74091) mouth daily DILTIAZEM HCL COATED BEADS 28169853386 Syd Hollingsworth MD fluticasone FLOVENT HFA 220 MCG/ACT 01-30-201209-25-2016 [facility] AERO INH 2 puffs twice (4469 1) daily FLUTICASONE PROPIONATE HFA [id number] Bladimir Wilson DO [place] HFA 220 MCG/ACT AERO 09-02-2012 [facility] as directed (76293) FLUTICASONE PROPIONATE HFA [id number] Sarah Mixon RN FLOVENT HFA 220 MCG/ACT AERO 09-02-2012 [facility] as directed (44923) FLUTICASONE PROPIONATE HFA [id number] Sarah Mixon RN [place] HFA 220 MCG/ACT AERO 09-02-2012 [facility] INH 2 puffs twice daily (32534) FLUTICASONE PROPIONATE HFA [id number] Yaa Champion LPN [place] [facility]FA 220 MCG/ACT AERO 09-02-09-25-2016 [facility] Chiropractic INH 2 puffs twice daily (91503) FLUTICASONE PROPIONATE HFA [id number] Bladimir Wilson DO [place] HFA 220 MCG/ACT AERO 09-02-2012 [facility] directed (64630) FLUTICASONE PROPIONATE HFA [id number] Sarah Mixon RN [place] [facility]FA 220 MCG/ACT AERO 09-02-2012 [facility] INH 2 puffs twice daily (31363) FLUTICASONE PROPIONATE HFA [id number] Yaa Champion LPN [place] [facility] 220 MCG/ACT AERO 09-02-201209-25-2016 [facility] INH 2 puffs twice daily (71361) FLUTICASONE PROPIONATE HFA [id number] Bladimir Wilson DO [place] [facility]FA 220 MCG/ACT AERO 09-02-2012 [facility] as directed (51021) FLUTICASONE PROPIONATE HFA [id number] Sarah Mixon RN [place] [facility]FA 220 MCG/ACT AERO 09-02-2012 [facility] INH 2 puffs twice daily (50865) FLUTICASONE PROPIONATE HFA [id number] Yaa Champion LPN [place] [facility] 220 MCG/ACT AERO 09-02-201209-25-2016 [facility] INH 2 puffs twice daily (31997) FLUTICASONE PROPIONATE HFA [id number] Bladimir Wilson DO [place] [facility]FA 220 MCG/ACT AERO 09-02-2012 [facility] as directed (68819) FLUTICASONE PROPIONATE HFA [id number] Sarah Mixon RN [place] [facility]FA 220 MCG/ACT AERO 09-02-2012 [facility] INH 2 puffs twice daily (80630) FLUTICASONE PROPIONATE HFA [id number] Yaa Champion LPN [place] [facility]FA 220 MCG/ACT AERO 09-02-201209-25-2016 [facility] INH 2 puffs twice daily (95078) FLUTICASONE PROPIONATE HFA [id number] Bladimir Wilson DO [facility]FA 220 MCG/ACT AERO 09-02-2012 [facility] as directed (02449) FLUTICASONE PROPIONATE HFA [id number] Sarah Mixon RN [place]FA 220 MCG/ACT AERO 09-02-09-25-2016 [facility] INH 2 puffs twice daily (43455) FLUTICASONE PROPIONATE HFA [id number] Bladimir Wilson DO [place] [facility]FA 220 MCG/ACT AERO 09-02-2012 [facility] INH 2 puffs twice daily (80962) FLUTICASONE PROPIONATE HFA [id number] Yaa Mauroin Champion PEST CONTROL SUPERVISOR [facility] 220 MCG/ACT AERO 09-02-2012 [facility] as directed (55964) FLUTICASONE PROPIONATE HFA [id number] Sarah Mixon RN [place] [facility]FA 220 MCG/ACT AERO 09-02-2012 - 2016 [facility] INH 2 puffs twice daily (16830) FLUTICASONE PROPIONATE HFA [id number] Bladimir M Steve DO [place] [facility] 220 MCG/ACT AERO 09-02-2012 [facility] INH 2 puffs twice daily (65145) FLUTICASONE PROPIONATE HFA [id number] Yaa Esquivel Champion PEST CONTROL SUPERVISOR [place] [facility] 220 MCG/ACT AERO 09-02-2012 [facility] as directed (33142) FLUTICASONE PROPIONATE HFA [id number] Sarah Mixon RN [place] [facility]FA 220 MCG/ACT AERO 09-02-2012 - 2016 [facility] INH 2 puffs twice daily (69570) FLUTICASONE PROPIONATE HFA [id number] Bladimir M Steve DO [place] [facility] 220 MCG/ACT AERO 09-02-2012 [facility] INH 2 puffs twice daily (37794) FLUTICASONE PROPIONATE HFA [id number] Yaa Esquivel Champion PEST CONTROL SUPERVISOR [facility] [facility] 220 MCG/ACT AERO 09-02-2012 [facility] as directed (68576) FLUTICASONE PROPIONATE HFA [id number] Sarah Mixon RN [place] [facility]FA 220 MCG/ACT AERO 09-02-2012 [facility] INH 2 puffs twice daily (88623) FLUTICASONE PROPIONATE HFA [id number] Yaa Mauroin Champion PEST CONTROL SUPERVISOR [facility] [facility] 220 MCG/ACT AERO 09-02-2012 - 2016 [facility] INH 2 puffs twice daily (76452) FLUTICASONE PROPIONATE HFA [id number] Bladimir Wilson DO [place] [facility]FA 220 MCG/ACT AERO 09-02-09-25-2016 [facility] INH 2 puffs twice daily (51559) FLUTICASONE PROPIONATE HFA [id number] Bladimir Wilson DO [place] [facility]FA 220 MCG/ACT AERO 09-02-2012 [facility] INH 2 puffs twice daily (52030) FLUTICASONE PROPIONATE HFA [id number] Yaa Champion PEST CONTROL SUPERVISOR [place] [facility] 220 MCG/ACT AERO 09-02-2012 [facility] as directed (94690) FLUTICASONE PROPIONATE HFA [id number] Sarah Mixon RN [place] HFA 220 MCG/ACT AERO 09-02-2012 [facility] as directed (98516) FLUTICASONE PROPIONATE HFA [id number] Sarah Mixon RN [place] [facility]FA 220 MCG/ACT AERO 09-02-2012 [facility] INH 2 puffs twice daily (90150) FLUTICASONE PROPIONATE HFA [id number] Yaa Champion PEST CONTROL SUPERVISOR [place] [facility] 220 MCG/ACT AERO 09-02-201209-25-2016 [facility] INH 2 puffs twice daily (96371) FLUTICASONE PROPIONATE HFA [id number] Bladimir M Steve DO [place] HFA 220 MCG/ACT AERO 09-02-2012 [facility] as directed (41463) FLUTICASONE PROPIONATE HFA [id number] Sarah Mixon RN [place] [facility]FA 220 MCG/ACT AERO 09-02-2012 [facility] INH 2 puffs twice daily (66962) FLUTICASONE PROPIONATE HFA [id number] Yaa Champion LPN [place] [facility]FA 220 MCG/ACT AERO 09-02-2012 - 2016 [facility] INH 2 puffs twice daily (49855) FLUTICASONE PROPIONATE HFA [id number] Bladimir Wilson DO [place] HFA 220 MCG/ACT AERO 09-02-2012 - 2016 [facility] INH 2 puffs twice daily (31603) FLUTICASONE PROPIONATE HFA [id number] Bladimir Wilson DO [place]OV[place] HFA 220 MCG/ACT AERO 09-02-2012 [facility]uffs twice daily (91685) FLUTICASONE PROPIONATE HFA [id number] Yaa Champion LPN [place] HFA 220 MCG/ACT AERO 09-02-2012 [facility] directed (16749) FLUTICASONE PROPIONATE HFA [id number] Sarah Mixon RN [place] HFA 220 MCG/ACT AERO 09-02-2012 [facility] puffs twice daily (33992) FLUTICASONE PROPIONATE HFA [id number] Yaa Champion LPN [place] [facility]FA 220 MCG/ACT AERO 09-02-2012 - 2016 [facility] INH 2 puffs twice daily (52923) FLUTICASONE PROPIONATE HFA [id number] Bladimir Wilson DO [place] HFA 220 MCG/ACT AERO 09-02-2012 [facility] as directed (00444) FLUTICASONE PROPIONATE HFA [id number] Sarah Mixon RN [place] HFA 220 MCG/ACT AERO 09-02-2012 [facility] as directed (77738) FLUTICASONE PROPIONATE HFA [id number] Sarah Mixon RN [place]OV[place] HFA 220 MCG/ACT AERO 09-02-2012 [facility] INH 2 puffs twice daily (03888) FLUTICASONE PROPIONATE HFA [id number] Yaa Champion LPN [place] HFA 220 MCG/ACT AERO 09-02-2012 - 2016 [facility] INH 2 puffs twice daily (38701) FLUTICASONE PROPIONATE HFA [id number] Bladimir Wilson DO [place]OV[place] HFA 220 MCG/ACT AERO 09-02-2012 - 2016 [facility] INH 2 puffs twice daily (29227) FLUTICASONE PROPIONATE HFA [id number] Bladimir Wilson DO [place] HFA 220 MCG/ACT AERO 09-02-2012 [facility] INH 2 puffs twice daily (30044) FLUTICASONE PROPIONATE HFA [id number] Yaa Champion LPN [place] HFA 220 MCG/ACT AERO 09-02-2012 [facility] as directed (16387) FLUTICASONE PROPIONATE HFA [id number] Sarah Mixon RN [place] HFA 220 MCG/ACT AERO 09-02-2012 [facility] INH 2 puffs twice daily (57448) FLUTICASONE PROPIONATE HFA [id number] Yaa Champion LPN [place] HFA 220 MCG/ACT AERO 09-02-2012 [facility] as directed (32945) FLUTICASONE PROPIONATE HFA [id number] Sarah Mixon RN [place] HFA 220 MCG/ACT AERO 09-02-201209-25-2016 [facility] INH 2 puffs twice daily (07811) FLUTICASONE PROPIONATE HFA [id number] Bladimir Wilson DO FLOVENT HFA 220 MCG/ACT AERO 09-02-2012 [facility] INH 2 puffs twice daily (93618) FLUTICASONE PROPIONATE HFA [id number] Yaa Sierra Chamipon [employer]PER[employer] FLOVENT HFA 220 MCG/ACT AERO 09-02-2012 - --2016 [facility] INH 2 puffs twice daily (79290) FLUTICASONE PROPIONATE HFA [id number] Bladimir Wilson DO FLOVENT HFA 220 MCG/ACT AERO 09-02-2012 [facility] as directed (83300) FLUTICASONE PROPIONATE HFA [id number] Sarah Mixon, RN hydroxychloroquine PLAQUENIL 200 MG TABS 12-03-2016 [facility] tablet by mouth [facility] twice daily [place] HYDROXYCHLOROQUINE (94181) SULFATE [id number] Yaa Esquivel Champion [employer] SUPERVISOR levoFLOXacin LEVAQUIN 750 MG TABS 12-28-2012 - Olga Naylor Signs Pulmo nary one by mouth daily 01-04-2013 [facility] [place] [facility] LEVOFLOXACIN (30197) [id number] Olga Naylor Signs methotrexate METHOTREXATE 2.5 MG 06-03-2017 Pulmonar y TABS 5 tablets once a [facility] ne of week [place] METHOTREXATE SODIUM (19291) [id number] Anu Dupont Metoprolol METOPROLOL TARTRATE 25 07-30-2012 - Paresh Villagran [place] [facility] TABS One tablet by 07-24-2016 [facility] (62571) mouth twice daily METOPROLOL TARTRATE [id number] Paresh Braswell MD METOPROLOL TARTRATE 25 MG TABS 09-02-2012 - 10-26-2012 [facility] (31702) 1/2 tablet by mouth daily METOPROLOL TARTRATE [id number] Paresh Braswell MD MULTIPLE VITAMIN MULTIVITAMINS TABS One 08-25-2012 [facility] tablet by mouth daily (72788 ) MULTIPLE VITAMIN 31895951071 Mirna Valles RN MULTIVITAMINS TABS One tablet 08-25-201205-10-2013 [facility] by mouth daily (37244 ) MULTIPLE VITAMIN 11448763050 Paresh Braswell MD MULTIVITAMINS TABS One tablet 08-25-201205-10-2013 [facility] by mouth daily (46761 ) MULTIPLE VITAMIN 39067220179 Paresh Braswell MD MULTIVITAMINS TABS One tablet 08-25-2012 [facility] by mouth daily (89929 ) MULTIPLE VITAMIN 63377410660 Mirna Valles RN MULTIVITAMINS TABS One tablet 08-25-201205-10-2013 [facility] by mouth daily (01475 ) MULTIPLE VITAMIN 16878209798 Paresh Braswell MD MULTIVITAMINS TABS One tablet 08-25-2012 [facility] by mouth daily (56773 ) MULTIPLE VITAMIN 46827824702 Mirna Valles RN MULTIVITAMINS TABS One tablet 08-25-201205-10-2013 [facility] by mouth daily (81327 ) MULTIPLE VITAMIN 95380319077 Paresh Braswell MD MULTIVITAMINS TABS One tablet 08-25-2012 [facility] by mouth daily (66958 ) MULTIPLE VITAMIN 56659629505 Mirna Valles RN MULTIVITAMINS TABS One tablet 08-25-2012 [facility] by mouth daily (33830 ) MULTIPLE VITAMIN 88432395902 Mirna Valles RN MULTIVITAMINS TABS One tablet 08-25-201205-10-2013 [facility] by mouth daily (71117 ) MULTIPLE VITAMIN 15658655337 Paresh Braswell MD MULTIVITAMINS TABS One tablet 08-25-2012 [facility] by mouth daily (57226 ) MULTIPLE VITAMIN 29210420819 Mirna Valles RN MULTIVITAMINS TABS One tablet 08-25-2012 - 05-10-2013 [facility] by mouth daily (20324 ) MULTIPLE VITAMIN 06282071727 Paresh Braswell MD MULTIVITAMINS TABS One tablet 08-25-2012 [facility] by mouth daily (52486 ) MULTIPLE VITAMIN 28416436604 Mrina Valles RN MULTIVITAMINS TABS One tablet 08-25-201205-10-2013 [facility] by mouth daily (27705 ) MULTIPLE VITAMIN 35715233107 Paresh Braswell MD MULTIVITAMINS TABS One tablet 08-25-2012 [facility] by mouth daily (95723 ) MULTIPLE VITAMIN 40967403913 Mirna Valles RN MULTIVITAMINS TABS One tablet 08-25-201205-10-2013 [facility] by mouth daily (70115 ) MULTIPLE VITAMIN 70389733229 aPresh Braswell MD MULTIVITAMINS TABS One tablet 08-25-201205-10-2013 [facility] by mouth daily (02897 ) MULTIPLE VITAMIN 72561885752 Paresh Braswell MD MULTIVITAMINS TABS One tablet 08-25-2012 [facility] by mouth daily (50707 ) MULTIPLE VITAMIN 73067494889 Mirna Valles RN MULTIVITAMINS TABS One tablet 08-25-201205-10-2013 [facility] by mouth daily (62687 ) MULTIPLE VITAMIN 13993555282 Paresh Braswell MD MULTIVITAMINS TABS One tablet 08-25-2012 [facility] by mouth daily (36361 ) MULTIPLE VITAMIN 53209328362 Mirna Valles RN MULTIVITAMINS TABS One tablet 08-25-201205-10-2013 [facility] by mouth daily (20366 ) MULTIPLE VITAMIN 80436311189 Paresh Braswell MD MULTIVITAMINS TABS One tablet 08-25-2012 [facility] by mouth daily (57868 ) MULTIPLE VITAMIN 43187558567 Mirna Valles RN MULTIVITAMINS TABS One tablet 08-25-201205-10-2013 [facility] by mouth daily (94400 ) MULTIPLE VITAMIN 65222479898 Paresh Braswell MD MULTIVITAMINS TABS One tablet 08-25-2012 [facility] by mouth daily (76812 ) MULTIPLE VITAMIN 30528642402 Mirna Valles RN MULTIVITAMINS TABS One tablet 08-25-2012 [facility] by mouth daily (21866 ) MULTIPLE VITAMIN 40148699928 Mirna Valles RN MULTIVITAMINS TABS One tablet 08-25-201205-10-2013 [facility] by mouth daily (80915 ) MULTIPLE VITAMIN 26095304223 Paresh Braswell MD MULTIVITAMINS TABS One tablet 08-25-201205-10-2013 [facility] by mouth daily (81424 ) MULTIPLE VITAMIN 89095954568 Paresh Braswell MD MULTIVITAMINS TABS One tablet 08-25-2012 [facility] by mouth daily (62463 ) MULTIPLE VITAMIN 35996869722 Mirna Valles RN MULTIVITAMINS TABS One tablet 08-25-201205-10-2013 [facility] by mouth daily (31487 ) MULTIPLE VITAMIN 80771666823 Paresh Braswell MD MULTIVITAMINS TABS One tablet 08-25-2012 [facility] by mouth daily (48711 ) MULTIPLE VITAMIN 92888675318 Mirna Valles RN MULTIVITAMINS TABS One tablet 08-25-2012 - 05-10-2013 [facility] by mouth daily (85696 ) MULTIPLE VITAMIN 42567624006 Paresh Braswell MD MULTIVITAMINS TABS One tablet 08-25-2012 [facility] by mouth daily (17261 ) MULTIPLE VITAMIN 52999735755 Mirna Valles RN MULTIVITAMINS TABS One tablet 08-25-2012 - 05-10-2013 [facility] by mouth daily (53400 ) MULTIPLE VITAMIN 70815570431 Paresh Braswell MD MULTIVITAMINS TABS One tablet 08-25-2012 [facility] by mouth daily (33777 ) MULTIPLE VITAMIN 34458491369 Mirna Valles RN MULTIVITAMINS TABS One tablet 08-25-2012 [facility] by mouth daily (09155 ) MULTIPLE VITAMIN 73345399044 Mirna Valles RN MULTIVITAMINS TABS One tablet 08-25-2012 - 05-10-2013 [facility] by mouth daily (06571 ) MULTIPLE VITAMIN 59188151524 Paresh Braswell MD MULTIVITAMINS TABS One tablet 08-25-2012 [facility] by mouth daily (40492 ) MULTIPLE VITAMIN 86455282259 Mirna Valles RN MULTIVITAMINS TABS One tablet 08-25-201205-10-2013 [facility] by mouth daily (27327 ) MULTIPLE VITAMIN 90641733978 Paresh Braswell MD MULTIVITAMINS TABS One tablet 08-25-201205-10-2013 [facility] by mouth daily (03900 ) MULTIPLE VITAMIN 43497043769 Paresh Braswell MD MULTIVITAMINS TABS One tablet 08-25-2012 [facility] by mouth daily (52435 ) MULTIPLE VITAMIN 48456261979 Mirna Valles RN MULTIVITAMINS TABS One tablet 08-25-2012 [facility] by mouth daily (00542 ) MULTIPLE VITAMIN 77887633681 Mirna Valles RN MULTIVITAMINS TABS One tablet 08-25-2012 - 05-10-2013 [facility] by mouth daily (85983 ) MULTIPLE VITAMIN 47279633181 Paresh Braswell MD MULTIVITAMINS TABS One tablet 08-25-2012 [facility] by mouth daily (60077 ) MULTIPLE VITAMIN 57453796764 Mirna Valles RN MULTIVITAMINS TABS One tablet 08-25-2012 - 05-10-2013 [facility] by mouth daily (52049 ) MULTIPLE VITAMIN 04337087368 Paresh Braswell MD MULTIPLE VITAMIN MULTIVITAMINS TABS One 08-25-2012 - [facility] tablet by mouth daily 05-10-2013 [facility] (87212) MULTIPLE VITAMIN 60630618011 Paresh Braswell MD MULTIVITAMINS TABS One tablet 08-25-2012 [facility] by mouth daily (82583 ) MULTIPLE VITAMIN 27581933815 Mirna Valles RN MULTIVITAMINS TABS One tablet 08-25-2012 - 05-10-2013 [facility] by mouth daily (50007 ) MULTIPLE VITAMIN 01493678087 Paresh Braswell MD MULTIVITAMINS TABS One tablet 08-25-2012 [facility] by mouth daily (28860 ) MULTIPLE VITAMIN 95510623494 Mirna Valles RN MULTIVITAMINS TABS One tablet 08-25-2012 [facility] by mouth daily (63638 ) MULTIPLE VITAMIN 25584702850 Mirna Valles RN MULTIVITAMINS TABS One tablet 08-25-2012 - 05-10-2013 [facility] by mouth daily (53831 ) MULTIPLE VITAMIN 02372608114 Paresh Braswell MD MULTIVITAMINS TABS One tablet 08-25-2012 [facility] by mouth daily (72701 ) MULTIPLE VITAMIN 72198058235 Mirna Valles RN MULTIVITAMINS TABS One tablet 08-25-201205-10-2013 [facility] by mouth daily (90021 ) MULTIPLE VITAMIN 97932264654 Paresh Braswell MD MULTIVITAMINS TABS One tablet 08-25-2012 [facility] by mouth daily (89484 ) MULTIPLE VITAMIN 84145360246 Mirna Valles RN MULTIVITAMINS TABS One tablet 08-25-201205-10-2013 [facility] by mouth daily (52994 ) MULTIPLE VITAMIN 04743721019 Paresh Braswell MD MULTIVITAMINS TABS One tablet 08-25-201205-10-2013 [facility] by mouth daily (12658 ) MULTIPLE VITAMIN 04572438576 Paresh Braswell MD MULTIVITAMINS TABS One tablet 08-25-2012 [facility] by mouth daily (96274 ) MULTIPLE VITAMIN 08482860313 Mirna Valles RN MULTIVITAMINS TABS One tablet 08-25-201205-10-2013 [facility] by mouth daily (05977 ) MULTIPLE VITAMIN 22987750595 Paresh Braswell MD MULTIVITAMINS TABS One tablet 08-25-2012 [facility] by mouth daily (16943 ) MULTIPLE VITAMIN 64832202716 Mirna Valles RN MULTIVITAMINS TABS One tablet 08-25-2012 [facility] by mouth daily (56748 ) MULTIPLE VITAMIN 43552613833 Mirna Valles RN MULTIVITAMINS TABS One tablet 08-25-201205-10-2013 [facility] by mouth daily (23889 ) MULTIPLE VITAMIN 29182221578 Paresh Braswell MD MULTIVITAMINS TABS One tablet 08-25-2012 [facility] by mouth daily (68706 ) MULTIPLE VITAMIN 41822275013 Mirna Valles RN MULTIVITAMINS TABS One tablet 08-25-2012 - 05-10-2013 [facility] by mouth daily (96970 ) MULTIPLE VITAMIN 99232680847 Paresh Braswell MD MULTIVITAMINS TABS One tablet 08-25-2012 [facility] by mouth daily (12380 ) MULTIPLE VITAMIN 83520862022 Mirna Valles RN MULTIVITAMINS TABS One tablet 08-25-2012 - 05-10-2013 [facility] by mouth daily (28404 ) MULTIPLE VITAMIN 01845385941 Paresh Braswell MD MULTIVITAMINS TABS One tablet 08-25-2012 [facility] by mouth daily (23673 ) MULTIPLE VITAMIN 82074190376 Mirna Valles RN MULTIVITAMINS TABS One tablet 08-25-201205-10-2013 [facility] by mouth daily (36615 ) MULTIPLE VITAMIN 63533826695 Paresh Braswell MD MULTIVITAMINS TABS One tablet 08-25-201205-10-2013 [facility] by mouth daily (92426 ) MULTIPLE VITAMIN 15885397173 Paresh Braswell MD MULTIVITAMINS TABS One tablet 08-25-2012 [facility] by mouth daily (20191 ) MULTIPLE VITAMIN 74859974416 Mirna Valles RN MULTIVITAMINS TABS One tablet 08-25-2012 [facility] by mouth daily (40722 ) MULTIPLE VITAMIN 64054766517 Mirna Valles RN MULTIVITAMINS TABS One tablet 08-25-201205-10-2013 [facility] by mouth daily (34795 ) MULTIPLE VITAMIN 85980711960 Paresh Braswell MD MULTIVITAMINS TABS One tablet 08-25-2012 [facility] by mouth daily (15107 ) MULTIPLE VITAMIN 97357527261 Mirna Valles RN MULTIVITAMINS TABS One tablet 08-25-2012 - 05-10-2013 [facility] by mouth daily (64344 ) MULTIPLE VITAMIN 51049206424 Paresh Braswell MD MULTIVITAMINS TABS One tablet 08-25-2012 [facility] by mouth daily (31570 ) MULTIPLE VITAMIN 83471909190 Mirna Valles RN MULTIVITAMINS TABS One tablet 08-25-2012 - 05-10-2013 [facility] by mouth daily (35971 ) MULTIPLE VITAMIN 62960761480 Paresh Braswell MD MULTIVITAMINS TABS One tablet 08-25-2012 [facility] by mouth daily (13282 ) MULTIPLE VITAMIN 06473894975 Mirna Valles RN MULTIVITAMINS TABS One tablet 08-25-2012 - 05-10-2013 [facility] by mouth daily (59094 ) MULTIPLE VITAMIN 62128661989 Paresh Braswell MD MULTIVITAMINS TABS One tablet 08-25-2012 [facility] by mouth daily (44031 ) MULTIPLE VITAMIN 80202946135 Mirna Valles RN MULTIVITAMINS TABS One tablet 08-25-2012 - 05-10-2013 [facility] by mouth daily (68038 ) MULTIPLE VITAMIN 77244529448 Paresh Braswell MD nitroglycerin NITROGLYCERIN 0.4 MG 09-09-2016 [facility] SUBL one tablet under RN of Sy ryder (24967) tongue every 5 minutes X 3 as needed chest pain NITROGLYCERIN [id number] Syd Hollingsworth MD ramipril ALTACE 5 MG CAPS One 09-02-2012 Ania Hart [facility] tablet by mouth daily RN of Sy ry[place] (69013) RAMIPRIL 05027173540 Jamari Mclean CAN FEEDER-C ALTACE 5 MG CAPS One tablet 09-02-2012 Ania Merlos N [facility] of by mouth daily [place] (25095) RAMIPRIL 63419904012 Jamari Mclaen CAN FEEDER-C rivaroxaban XARELTO 20 MG TABS 11-24-2012 [place] [facility] One tablet by mouth (33437) daily with supper - on hold RIVAROXABAN 14271170157 Paresh Braswell MD rosuvastatin CRESTOR 20 MG TABS 10-14-2013 [facility] One tablet by mouth RODRIGUEZ [place] (23399) daily ROSUVASTATIN CALCIUM 32370987980 Jamari Mclean CAN FEEDER-C simvastatin SIMVASTATIN 20 MG 08-25-2012 [facility] TABS One tablet by of [place] (81029) mouth daily SIMVASTATIN 79619104163 Mirna Valles RN ticagrelor BRILINTA 90 MG TABS 05-03-2014 - [facility] One tablet by mouth 07-24-2016 [facility] twice daily (75931) TICAGRELOR 07427328769 Ania Aguillon RN traMADol TRAMADOL HCL 50 MG 03-24-2017 [place] [facility] TABS One tablet by (25957) mouth daily TRAMADOL HCL 65890152091 Syd Hollingsworth MD Problems Active Problems Category Problem Name Status Date Location Acute cerebrovascular Cerebrovascular Active 08-25-2012 - [facility] disease accident of [place] (684 53) Asthma Asthma Active 2016 - [facility] [place] (446 91) Cardiac dysrhythmias Sinus bradycardia [facility] (4 3221) Conduction disorders Cardiac pacemaker in Active 12-11-2012 - [facility] (8 9852) 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-25-2012 - [place] [facility] atherosclerosis and infarction (47321) other heart disease Delirium dementia and Postconcussion syndrome Active Rehab amnestic and other Services- [facility] cognitive disorders Eduin t (28263) Disorders of lipid Hyperlipidemia Active 08-25-2012 - [facility] metabolism of [place] (448 91) Essential hypertension Hypertensive disorder Active 3 - [facility] [place] (449 91) Intracranial injury [facility]2800 [facility] Joint disorders and Dislocations, sprains Active Rehab dislocations; and strains involving [facility] trauma-related head with neck [place] ( 85927) Occlusion or stenosis Carotid artery stenosis Active 08-25-19 13 - [facility] of precerebral arteries of [place] (64281) Residual codes; Obstructive sleep apnea Active 2016 - [facility] unclassified syndrome [facility] (4 0962) Superficial injury; Superficial foreign Active 12-25-2012 - P [facility] contusion body (splinter) of of [place] (51478) trunk, without major open wound and without mention of infection Unclassified Drug therapy finding Active 09-09-2016 - [facility] of [place] (226 91) Unclassified Placement of stent in Active 09-09-2016 - [facility] coronary artery of [place] ( 67572) Unclassified Other cervical disc Active 07-15-2016 - Pulmonar y Medicine displacement at C4-C5 of [place] (91775) level Unclassified Long-term drug therapy Active 07-08-2013 - [facility] (4 3931) Unclassified Body mass index (BMI) Active 05-10-2013 - [facility] 27.0-27.9, adult [facility] (42060) Past or Other Problems Category Problem Name Status Date Location Complication of device; Infection and Completed 12-15-2012 - [facility] implant or graft inflammatory of [place] (43646) reaction due to cardiac device, implant, and graft Nonspecific chest pain Chest pain Completed 09-02-2012 - [facility] - 09-09-2016 [facility] (4 9048) - Other aftercare Long-term (current) Completed 07-08-2013 - Pulmo nary Medicine use of other of [place] (537 91) medications Other bone disease and Segmental and Completed 07-15-2016 - [facility] musculoskeletal somatic dysfunction [facility] (62260) deformities Other lower respiratory Dyspnea Completed 10-26-2012 - [facility] disease of [place] (446 91) Other nutritional; Body mass index Completed 05-10-2013 - [facility] endocrine; and (BMI) 26.0-26.9, of [place] (70797) metabolic disorders adult Other skin disorders Mass of axilla Completed 06-18-2017 - [facility] (718 58) NEGATED: Highlighted Disease Completed Reha b row has not [facility] occurred!Residual Mat (26518) codes; unclassified Results Result Name Value Range Unit Interpretation Flag Date Location hip, unilateral w/pelvis when performed 2-3 views on 2019-12-16 HIP, UNILATERAL Normal 12-16-2019 [facility] W/PELVIS WHEN Patient Name: BRIGETTE HOLGUIN [facility] ([id number]) PERFORMED 2-3 VIEWS STUDY: LeftHIP, UNILATERAL W/PELVIS WHEN PERFORMED 2-3 VIEWS; 2019 1:28 pm INDICATION: PAIN IN LEFT HIP. COMPARISON: None. ACCESSION NUMBER(S): [id number] ORDERING CLINICIAN: TONY SHARP FINDINGS: Bony structures: An exostosis projects laterally from the ce ntral aspect of the left iliac bone. Status post lower lumbar lami nectomies with hardware fusion. Otherwise the bony structures are inta ct. Joint spaces: The hip joint spaces maintained. There is mini mal osteophytic lipping at the hip inferiorly. Similar mild osteoarthritis is noted at the right hip. The sacroiliac joints and pubic symphysis are maintained Soft tissues: Unremarkable without significant edema or radi odense foreign body Other: None significant IMPRESSION: Minimal osteoarthritis. Electronically signed by: PARESH FLETCHER MD No panel information on 2019-12-16 Interpreted by: PARESH OLIVEROS Normal 0 12-16-2019 Rehab QFADGD25/14/20 13:32MRN: [facility] [id number] [place]: [place] ([id number]) BRIGETTE STUDY:LeftHIP, UNILATERAL W/PELVIS WHEN PERFORMED 2-3 VIEWS; 12/16/2019 1:28pm INDICATION:PAIN IN LEFT HIP. COMPARISON:None. ORDERING CLINICIAN:TONY SHARP FINDINGS:Bony structures: An exostosis projects laterally from the centralaspect of the left iliac bone. Status post lower lumbar laminectomieswith hardware fusion. Otherwise the bony structures are intact. Joint spaces: The hip joint spaces maintained. There is minimalosteophytic lipping at the hip inferiorly.Similar mild osteoarthritis is noted at the right hip.The sacroiliac joints and pubic symphysis are maintained Soft tissues: Unremarkable without significant edema or radiodenseforeign body Other: None significant IMPRESSION:Minimal osteoarthritis.Electronically signed by: PARESH FLETCHER 12/16/19 13:32 Comment: Ordering Provider: TONY PHILLIPS [id number] progress on 2018-10 Protein mass conc HNO ID: [id number] Normal [facility] Author: Kathrin Mohan [place] ([id number]) Service: ? Author Type: Spiral Tube Winder Helper Type: Progress Notes Filed: 10/29/2018 1:01 PM Note Text: [facility] RABBET OPERATOR QUICKNOTE Provider Action/FYI Brigette left a message on my voice mail stating his PCP is Dr. Carranza. Patient identified by name and . yes Kathrin Mohan MA progress on 2018-10 Protein mass conc HNO ID: [id number] Normal [facility] Author: Kathrin [place] ([id number]) Service: ? Author Type: Spiral Tube Winder Helper Type: Progress Notes Filed: 10/26/2018 9:36 AM Note Text: [facility] RABBET OPERATOR CULLENNOTE Provider Action/FYI: Certified letter has been mailed to the patient. Patient identified by name and . yes Kathrin Mohan MA Protein mass conc HNO ID: [id number] Normal [facility] Author: Kathrin William ([id number]) Service: ? Author Type: Spiral Tube Winder Helper Type: Progress Notes Filed: 10/26/2018 9:36 AM Note Text: [facility] RABBET OPERATOR CULLENNOTE Provider Action/FYI: Sending a certified letter to the patient to verify his PCP. Patient identified by name and . yes Kathrin Mohan MA Protein mass conc HNO ID: [id number] Normal [facility] Author: Kathrin William ([id number]) Service: ? Author Type: Spiral Tube Winder Helper Type: Progress Notes Filed: 10/26/2018 9:36 AM Note Text: [facility] RABBET OPERATOR QUICKNOTE Provider Action/FYI: unable to contact patient by phone. Is phone is out service. Patient identified by name and . yes Kathrin Mohan MA progress on 2018-10 Protein mass conc HNO ID: [id number] Normal [facility] Author: Kathrin Mohan [place] ([id number]) Service: ? Author Type: Spiral Tube Winder Helper Type: Progress Notes Filed: 10/26/2018 9:36 AM Note Text: [facility] ASSISTANT QUICKNOTE Provider Action/FYI: need to verify PCP Patient identified by name and . yes Kathrin Mohan MA cnptoutreach on 201 04-06-22 CNPTOUTREACH Patient Outreach (FAMPWS) Normal 0 10-23-2018 [place] [facility] BRIGETTE HOLGUIN ([id number]) [facility] Date Time Provider Department ([id number]) 10/23/18 KATHRIN MOHAN) FAMPWS During your visit today, we recorded the following informati on about you: Kathrin Mohan MA 10/26/2018 9:36 AM Signed [facility] ASSISTANT JESSE Provider Action/FYI: need to verify PCP Patient identified by name and . yes JOHN Pena MA 10/26/2018 9:[address] [facility] RABBET OPERATOR JESSE Provider Action/FYI: unable to contact patient by phone. Is phone is out service. Patient identified by name and . yes JOHN Pena MA 10/26/2018 9:[address] [facility] RABBET OPERATOR CULLENNOTE Provider Action/FYI: Sending a certified letter to the patient to verify his PCP. Patient identified by name and . yes JOHN Pena MA 10/26/2018 9:[address] [facility] RABBET OPERATOR MARCIA Provider Action/MELISSA: Certified letter has been mailed to the patient. Patient identified by name and . yes JOHN Pena MA 10/29/2018 1:[address] [facility] RABBET OPERATOR MARCIA Provider Clark/MELISSA Brigette left a message on my voice mail stating his PCP is Dr. Carranza. Patient identified by name and . yes Kathrin Mohan MA Allergies As of Date: 10/23/2018 Noted Allergy Reaction SULFA (SULFONAMIDE ANTIBIOTICS) 06/19/2007 4 - Hives 12 - Shortness of Breath TAPE (ADHESIVE TAPE (ROSINS)) 09/06/2013 2 - Rash Comments: Patient has rash when using surgery tape and EKG e lectrodes Date Reviewed: 08/25/2017 Reviewed by: Kathrin ([facility]) KIRK Denson.GRADES 7 AND 8 VISITING TEACHER - Fully Ass essed Reason for Visit: PHMA/Care Gap Outreach [[id number]] Prescriptions as of 10/23/2018 Sig: METHOTREXATE ORAL Take by mouth. PLAQUENIL ORAL Take by mouth. BUDESONIDE ORAL Take by mouth. CPAP Use as directed. DILTIAZEM SR 120 MG 24 HR CAP Take 1 capsule by mouth once * HYDROXYCHLOROQUINE 200 MG TAB* Take 1 tablet by mouth twice * ROSUVASTATIN 20 MG TABLET Take 1 tablet by mouth daily * COMPOUNDED PRESCRIPTION CPAP RIVAROXABAN 20 MG TABLET Take 1 tablet by mouth daily * RAMIPRIL 5 MG CAPSULE Take 1 capsule by mouth once * ASPIRIN 81 MG TABLET Take 1 tablet by mouth once d* Problem List As Of Date 10/23/2018 Noted Resolved ASHD (arteriosclerotic heart disease) [I25.10] INVALID FOR* ABNORMAL LIVER FUNCTION STUDY [R94.5] INVALID FOR* Inflamed seborrheic keratosis [L82.0] INVALID FOR*03/01/2015 SKIN TAG PAPILLOMAS///SKIN HYPERTRO/ATROPH NOS *INVALID FOR* 03/01/2015 Other seborrheic keratosis [L82.1] INVALID FOR*03/01/2015 SOLAR LENTIGENES///DYSCHROMIA OTHER [L81.9] INVALID FOR*02/02 Other chronic dermatitis due to solar radiation*INVALID FOR* 03/01/2015 Benign neoplasm of skin of trunk, except scrotu*INVALID FOR* 03/01/2015 POSTINFLAMMATORY HYPER/HYPOPIG///DYSCHROMIA UNS*INVALID FOR* 03/01/2015 UNCERTAIN BEHAV NEOPL SKIN//IRRITATED NEVUS LYNN*INVALID FOR* 03/01/2015 Open wound(s) (multiple) of unspecified site(s)*INVALID FOR* 03/01/2015 Abdominal Pain, Generalized [R10.84] 07/06/2009 More... 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 Author: Renita Castelan LPN [place] ([id number]) Service: (none) Author Type: (none) Type: Progress Notes Filed: 01/09/2018 8:59 AM Note Text: Attempted to contact pt. Got recording stating that phone nu mber has been disconnected or is no longer in service. Letter mailed to pt asking pt to contact office to schedule routine f/u appt and to complete fasting labs prior to appt. Renita Castelan LPN progress on 2018-01 Protein mass conc HNO ID: [id number] Normal [facility] Author: Kerry Arthur) Rigo William ([id number]) Service: (none) Author Type: Nurse Practitioner Type: Progress Notes Filed: 01/09/2018 8:59 AM Note Text: Please facilitate apt. Kerry Sierra, MSN INHALATION THERAPY AIDES TEACHER.GRADES 7 AND 8 VISITING TEACHER progress on 2017-12 Protein mass conc HNO ID: [id number] Normal [facility] Author: Kathrin Fox) Kimberlee [place] ([id number]) Service: (none) Author Type: Spiral Tube Winder Helper Type: Progress Notes Filed: 01/09/2018 8:59 AM Note Text: PHMA TEAMLET DOCUMENTATION Provider Action/FYI: Patient needs appointment, labs need ordered CMP lipids CBC PSR Action/FYI: please schedule apointment Thnaks Teamlet has identified patient by name and date of . Team:Dr. Laurent Dimas III, MD, ANASTACIO Rhodes, Kathrin maguire MA, Hannah Montalvo LPN, Jemima Mac CMA, Sona Bender PSR , ? Last Office Visit:Visit date not found ? Next Office Visit: Visit date not found ? Last BP/Labs: Blood Pressure: Last 3 Encounter BP Readings: Date: BP: 08/25/2017 106/68 11/04/2016 130/82 10/31/2016 104/66 Lipids: Cholesterol, Total (mg/dL) Date Value 09/27/2015 166 09/14/2012 120 HDL Cholesterol (mg/dL) Date Value 09/27/2015 47 07/24/2013 41 LDL Cholesterol (mg/dL) Date Value 09/27/2015 108 09/14/2012 46 LDL Calculated (mg/dL) Date Value 07/24/2013 34 07/23/2013 47 Triglyceride (mg/dL) Date Value 09/27/2015 57 07/24/2013 60 HGB A1C: Lab Results Component Value Date HBA1C 5.7 12/25/2011 TSH: TSH (uU/mL) Date Value 09/06/2013 2.380 12/25/2011 1.310 ) Care Gap: Asthma - Plan: ? Confirm PCP / Status ? Type of appointment needed: Follow-up Provider Judie ? Consultation Appointments: No patient outreach needed at t his time ? Labs, HM and Immunization: Labs: CBC (Diff or PLT) CMP Lipids Kathrin Mohan MA cnptoutreach on 201 03-08-29 CNPTOUTREACH Patient Outreach (FAMPWS) Normal 0 12-30-2017 [place] [facility] BRIGETTE HOLGUIN ([id number]) 1950 [facility] Time Provider Department ([id number]) 12/30/17 KATHRIN MOHAN) FAMPWS During your visit today, we recorded the following informati on about you: Kathrin Mohan MA 01/09/2018 8:59 AM Signed PHMA TEAMLET DOCUMENTATION Provider Action/FYI: Patient needs appointment, labs need ordered CMP lipids CBC PSR Action/FYI: please schedule apointment Thherminia Teamlet has identified patient by name and date of . Team:Dr. Laurent Dimas III, MD, ANASTACIO Rhodes, Kathrin maguire MA, Hannah Montalvo LPN, Jemima Mac CMA, Sona Bender PSR , ? Last Office Visit:Visit date not found ? Next Office Visit: Visit date not found ? Last BP/Labs: Blood Pressure: Last 3 Encounter BP Readings: Date: BP: 08/25/2017 106/68 11/04/2016 130/82 10/31/2016 104/66 Lipids: Cholesterol, Total (mg/dL) Date Value 09/27/2015 166 09/14/2012 120 HDL Cholesterol (mg/dL) Date Value 09/27/2015 47 07/24/2013 41 LDL Cholesterol (mg/dL) Date Value 09/27/2015 108 09/14/2012 46 LDL Calculated (mg/dL) Date Value 07/24/2013 34 07/23/2013 47 Triglyceride (mg/dL) Date Value 09/27/2015 57 07/24/2013 60 HGB A1C: Lab Results Component Value Date HBA1C 5.7 12/25/2011 TSH: TSH (uU/mL) Date Value 09/06/2013 2.380 12/25/2011 1.310 ) Care Gap: Asthma - Plan: ? Confirm PCP / Status ? Type of appointment needed: Follow-up Provider Cebul ? Consultation Appointments: No patient outreach needed at t his time ? Labs, HM and Immunization: Labs: CBC (Diff or PLT) CMP Lipids JOHN Pena, MSN INHALATION THERAPY AIDES TEACHER.GRADES 7 AND 8 VISITING TEACHER 01/09/2018 8:59 AM Signed Please facilitate apt. Kerry Sierra, MSN INHALATION THERAPY AIDES TEACHER.FABIAN Castelan LPN 01/09/2018 8:59 AM Signed Attempted to contact pt. Got recording stating that phone nu mber has been disconnected or is no longer in service. Letter mailed to pt asking pt to contact office to schedule routine f/u a ppt and to complete fasting labs prior to appt. Renita Csatelan LPN Allergies As of Date: 12/30/2017 Noted Allergy Reaction SULFA (SULFONAMIDE ANTIBIOTICS) 06/19/2007 4 - Hives 12 - Shortness of Breath TAPE (ADHESIVE TAPE (ROSINS)) 09/06/2013 2 - Rash Comments: Patient has rash when using surgery tape and EKG e lectrodes Date Reviewed: 08/25/2017 Reviewed by: Kathrin (Fabina) CHELSIE DensonN.GRADES 7 AND 8 VISITING TEACHER - Fully Ass essed Reason for Visit: PHMA/Care Gap Outreach [[id number]] Primary Visit Diagnosis:Asthma with chronic obstructive pulm onary disease (COPD) ([facility]) [J44.9] Other Visit Diagnoses:Hyperlipidemia LDL goal <100 [E78.5] Benign hypertension [I10] Order(s):COMP METABOLIC PANEL [SQCMP] Order #: [id number] MADELYN LIPID PANEL BASIC [SQLIPB] Order #: [id number] FUTURE CBC + DIFF [SQCBCDIF] Order #: [id number] FUTURE Prescriptions as of 12/30/2017 Sig: METHOTREXATE ORAL Take by mouth. PLAQUENIL ORAL Take by mouth. BUDESONIDE ORAL Take by mouth. CPAP Use as directed. DILTIAZEM SR 120 MG 24 HR CAP Take 1 capsule by mouth once * HYDROXYCHLOROQUINE 200 MG TAB* Take 1 tablet by mouth twice * ROSUVASTATIN 20 MG TABLET Take 1 tablet by mouth daily * COMPOUNDED PRESCRIPTION CPAP RIVAROXABAN 20 MG TABLET Take 1 tablet by mouth daily * RAMIPRIL 5 MG CAPSULE Take 1 capsule by mouth once * ASPIRIN 81 MG TABLET Take 1 tablet by mouth once d* Problem List As Of Date 12/30/2017 Noted Resolved ASHD (arteriosclerotic heart disease) [I25.10] INVALID FOR* ABNORMAL LIVER FUNCTION STUDY [R94.5] INVALID FOR* Inflamed seborrheic keratosis [L82.0] INVALID FOR*03/01/2015 SKIN TAG PAPILLOMAS///SKIN HYPERTRO/ATROPH NOS *INVALID FOR* 03/01/2015 Other seborrheic keratosis [L82.1] INVALID FOR*03/01/2015 SOLAR LENTIGENES///DYSCHROMIA OTHER [L81.9] INVALID FOR*02/02 Other chronic dermatitis due to solar radiation*INVALID FOR* 03/01/2015 Benign neoplasm of skin of trunk, except scrotu*INVALID FOR* 03/01/2015 POSTINFLAMMATORY HYPER/HYPOPIG///DYSCHROMIA UNS*INVALID FOR* 03/01/2015 UNCERTAIN BEHAV NEOPL SKIN//IRRITATED NEVUS LYNN*INVALID FOR* 03/01/2015 Open wound(s) (multiple) of unspecified site(s)*INVALID FOR* 03/01/2015 Abdominal Pain, Generalized [R10.84] 07/06/2009 More... BPH (benign prostatic hyperplasia) [N40.0] INVALID FOR* Epididymitis [N45.1] INVALID FOR*03/01/2015 Testalgia [N50.819] INVALID FOR*03/01/2015 Epididymal cyst [N50.3] INVALID FOR*03/01/2015 Hemiplegia, nondominant side S/P CVA (cerebrova*INVALID FOR* 03/01/2015 Cervical spondylosis [M47.812] INVALID FOR* Chronic anticoagulation [Z79.01] INVALID FOR* Asthma with chronic obstructive pulmonary disea*INVALID FOR* Spinal stenosis of lumbar region without neurog*INVALID FOR* 2015 Presence of cardiac pacemaker [Z95.0] INVALID FOR* Unspecified sleep apnea [G47.30] INVALID FOR* Paroxysmal atrial fibrillation (HCC) [I48.0] INVALID FOR* Hyperlipidemia LDL goal <100 [E78.5] INVALID FOR* Benign hypertension [I10] INVALID FOR* Letter Text [facility] [address] [place], [place] [address] Brigette Holguin [address] [facility] [address] Clinic #: [id number] 01/09/2018 Dear Brigette, Our attempts to contact you by phone have been unsuccessful. After reviewing your chart I have determined that you are due for a routine follow up appointment to discuss medications. You are also d ue to have fasting lab work completed. The lab work has been ordered an d you can complete this prior to your appointment. Please contact us a t [phone] to schedule your appointment and to update your contact info rmation. Sincerely, Dr Efrain Dimas III Encounter Status:Closed by RENITA CASTELAN LPN on 01/09/18 office visit: spine visit- neck & low ba ck pain on 2017-07-02 Documentation of Done Invalid 07-02-2017 - [facility] current medications Interpretation Code 07-02-2017 Chiropractic (procedure) ([id number]) office visit: left axilla mass on 2017-06-18 Alcoholism no Invalid 06-18-2017 - [facility] Hernandez rgical counseling Interpretation Code 7 Associates (procedure) (08502) Documentation of Done Invalid 06-18-2017 [facility] Surgical current medications Interpretation Code 06-18-2017 Associates (procedure) (05539) Fall risk No Invalid 06-18-2017 [facility] Dominique gical assessment Interpretation Code 7 [facility] ([id number]) Tobacco smoking Never smoker Invalid 06-18-2017 [facility] Surgical status NHIS Interpretation Code 06-18-20 17 [facility] ([id number]) Tobacco smoking Never Invalid 06-18-2017 - [facility] status VAIS Interpretation Code 06-18-20 17 [facility] ([id number]) Tobacco use CPHS Never smoker Invalid 06-18-2017 - [facility] Surgical Interpretation Code 06-18-2017 [facility] ([id number]) lab report: serum creatinine and gfr on 2017-06-18 Creatinine 1.13 0.70-1.30 mg/dL Invalid 06-18-2017 - [facility] Hernandez rgical Interpretation Code 06-18-2017 [facility] ([id number]) eGFR 69 >60 mL/min Invalid 06-18-2017 - [facility] Dominique gical (non-black) Interpretation Code 06-18-20 17 [facility] (60990) eGFR 83 >60 mL/min Invalid 06-18-2017 - [facility] Dominique gical (non-black) Interpretation Code 06-18-20 17 [facility] ([id number]) office visit: janell & asthma on 2017-06-03 Alcoholism no Invalid 06-03-2017 - [facility] Interpretation Code 7 [facility] of (procedure) [place] (72314) Documentation of Done Invalid 06-03-2017 - Pulmonary current medications Interpretation Code 06-03-2017 [facility] of (procedure) [place] ([id number]) Tobacco smoking Never Invalid 06-03-2017 - P ulmonary status VAIS Interpretation Code 06-03-20 17 [facility] [place] ([id number]) Tobacco use [facility] Never smoker Invalid 06-03-2017 - Pulmonary Interpretation Code 06-03-2017 [facility] [place] ([id number]) office visit: spine visit- neck & low ba ck pain on 2017-05-21 Documentation of Done Invalid 05-21-2017 - [facility] current medications Interpretation Code 05-21-2017 Chiropractic (procedure) (34814) Protein mass conc Done Invalid 05-21-2017 - [facility] Interpretation Code 05-21-2017 Chiropractic (66758) office visit: spine visit- neck & low ba ck pain on 2017-05-12 Documentation of Done Invalid 05-12-2017 - [facility] current medications Interpretation Code 05-12-2017 [facility]ractic (procedure) (25612) Protein mass conc Done Invalid 05-12-2017 - [facility] Interpretation Code 05-12-2017 [facility] (20629) office visit: spine visit- neck & low ba ck pain on 2017-05-07 Documentation of Done Invalid 05-07-2017 - [facility] current medications Interpretation Code 05-07-2017 Chiropractic (procedure) (05291) office visit: spine visit- upper & mid b ack pain on 2017-04-23 Documentation of Done Invalid 04-23-2017 - [facility] current medications Interpretation Code 04-23-2017 Chiropractic (procedure) (01353) Protein mass conc Done 04-23-2017 - [facility] 04-23-2017 [facility] (32810) office visit: spine visit- mid & low lynn k pain on 2017-04-15 Protein mass conc Done 04-15-2016 - 04-15-2017 [facility] (89274) office visit: spine visit- mid & low lynn k pain on 2017-04-08 Documentation of Done Invalid 04-08-2017 - [facility] current medications Interpretation Code 04-08-2017 Chiropractic (procedure) (22119) Protein mass conc Done 04-08-2017 - [facility] 04-08-2017 [facility] (31275) lab report: liver profile on 2017-03-26 Alanine 28 12-78 U/L Invalid 03-26-2017 - [facility] aminotransferase Interpretation 03-26-20 17 Group ([id number]) (ALT) Code Albumin 4.1 3.4-5.0 g/dL Invalid 03-26-2017 - [place] [facility] Interpretation 03-26-2017 Grou [facility] (23676) Code Alkaline phosphatase 70 45-117 U/L Invalid 7 - [facility] (ALP) Interpretation 03-26-2017 Grou p (16220) Code ALP enzyme act/vol 70 45-117 U/L Invalid 03-26-2017 - [facility] (Bld) Interpretation 03-26-2017 Chir opractic Code (26225) Aspartate 17 15-37 U/L Invalid 03-26-2017 - [facility] aminotransferase Interpretation 03-26-20 17 Group ([id number]) (AST) Code Bilirubin (direct) 0.25 0.00-0.30 mg/dL Invalid 03-26-2017 - [facility] Interpretation 03-26-2017 Grou p (15543) Code Bilirubin (total) 1.10 0.20-1.00 mg/dL High 03-26-2017 - [facility] 03-26-2017 Group (44 [id number]) Globulin 3.0 2.3-3.5 g/dL Invalid 03-26-2017 - [facility] Interpretation 03-26-2017 Grou p (03278) Code Globulin mass conc 3.0 2.3-3.5 g/dL 03-26-2017 - [facility] (S) 03-26-2017 [facility] (42556) Protein 7.1 6.4-8.2 g/dL Invalid 03-26-2017 - [place] [facility] Interpretation 03-26-2017 Grou p (44625) Code lab report: lipid profile on 2017-03-26 Cholesterol 107 200 mg/dL Invalid 03-26-2017 - [place] [facility] Interpretation Code 03-26-2017 Group ([id number]) HDL Cholesterol 56 mg/dL Invalid 03-26-2017 - [place] [facility] Interpretation Code 03-26-2017 Group ([id number]) LDL Cholesterol 40 0-130 mg/dL Invalid 03-26-2017 - [place] Interpretation Code 03-26-2017 Group (06304) Lipoprotein.pre-be 11 5-40 mg/dL Invalid 03-26-2017 - [facility] ta mass conc Interpretation Code 017 Chi[facility]ractic (28008) Triglyceride 54 mg/dL Invalid 03-26-2017 - [facility] Interpretation Code 03-26-2017 Group ([id number]) very low density 11 5-40 mg/dL Invalid 03-26-2017 - [place] [facility] lipoproteins Interpretation Code 017 Group ([id number]) office visit on 02-08-21 Documentation of Done Invalid Interpretation 03-24-2017 - [place] [facility] current medications Code 03-24-2017 Group ([id number]) (procedure) Fall risk assessment No Invalid Interpretat ion 03-24-2017 - [facility] Code 03-24-2017 Group (44 [id number]) Protein mass conc Done 03-24-2017 - [place] [facility] 03-24-2017 Group (44 841) chart maintenance o n 2017-03-24 Left ventricular 65 % Invalid Interpretation 03-24-2017 - [place] [facility] Ejection fraction Code 03-24-2017 G [facility] ([id number]) office visit: spine visit- mid & low lynn k pain on 2017-01-14 Documentation of Done Invalid 01-14-2017 - [facility] current medications Interpretation Code 01-14-2017 [facility]ic (procedure) (02661) Protein mass conc Done 01-14-2017 - [facility] 01-14-2017 [facility] (12297) office visit: spine visit- mid & low lynn k pain on 2017-01-08 Documentation of Done Invalid 01-08-2017 - [facility] current medications Interpretation Code 01-08-2017 Chiropractic (procedure) (26970) office visit: spine visit- mid & low lynn k pain on 2017-01-01 Documentation of Done Invalid 01-01-2017 - [facility] current medications Interpretation Code 01-01-2017 Chiropractic (procedure) (96383) office visit: spine visit- low back pain on 2016-12-25 Documentation of Done Invalid 12-25-2016 - [facility] current medications Interpretation Code 12-25-2016 Chiropractic (procedure) (24739) office visit: spine visit- low back pain on 2016-12-19 Documentation of Done Invalid 12-19-2016 - [facility] current medications Interpretation Code 12-19-2016 Chiropractic (procedure) (13339) office visit: janell & asthma on 2016-12-03 Alcoholism no Invalid 12-03-2016 - [facility] Interpretation Code 7 [facility] of (procedure) [place] (06653) Documentation of Done Invalid 12-03-2016 - [facility] current medications Interpretation Code 12-03-2016 [facility] of (procedure) [place] (57848) Protein mass conc no Invalid 12-03-2016 - [facility] Interpretation Code 12-03-2016 [facility] (82599) Tobacco smoking Never Invalid 12-03-2016 - [facility] status VAIS smoker Interpretation Code 12-04-19 17 Chi[facility]ic (54559) Tobacco smoking Never Invalid 12-03-2016 - P ulmonary status NHIS Interpretation Code 12-04-19 17 [facility] [place] (4 4691) Tobacco use CPHS Never Invalid 12-03-2016 - [facility]monary smoker Interpretation Code 12-03-2016 [facility] [place] (4 [id number]) replaced document: midmark ecg observati ons on 2016-09-24 EKG QRS axis 8 deg Invalid 09-24-2016 - [facility] Interpretation 09-24-2016 Chir opractic Code (32347) electrocardiogram Sinus Invalid 09-24-2016 - Pulmonary interpretation Rhythm Interpretation 09-24-2016 Medicine of -First Code [place] (4 [id number]) degree A-V block Yari = 244BORDERL INE RHYTHM GE use only - for 374 ms Invalid 09-24-2016 - Pulmonary LinkLogic import when Interpretation Medicine of terms are not Code [place] (97193) otherwise specified Interpretation Sinus Invalid 09-24-2016 - [facility] Rhythm Interpretation 09-24-2016 Chir opractic -First Code (58086) degree A-V block Yari = 244BORDERL INE RHYTHM P [place] 50 deg Invalid 09-24-2016 - [facility] Interpretation 09-24-2016 Chir opractic Code (84928) P wave axis, 50 deg Invalid 09-24-2016 - Pulm onary electrocardiogram Interpretation 017 Medicine of Code [place] (4 [id number]) [place] Interval 244 ms Invalid 09-24-2016 - [facility] Interpretation 09-24-2016 Chir opractic Code (52806) [place] interval, 244 ms Invalid 09-24-2016 - Pulm onary electrocardiogram Interpretation 017 Medicine of Code [place] (4 4691) Pulse (Heart Rate) 60 BPM /min Invalid 09-24-2016 - Pulmonary Interpretation 09-24-2016 Medi cine of Code [place] (4 [id number]) QRS axis, 8 deg Invalid 09-24-2016 - Pulmona ry electrocardiogram Interpretation 017 Medicine of Code [place] (4 [id number]) QRS Duration 96 ms Invalid 09-24-2016 - [facility] Interpretation 09-24-2016 Chir opractic Code (18709) QRS duration, 96 ms Invalid 09-24-2016 - Pul monary electrocardiogram Interpretation 017 Medicine of Code [place] (4 [id number]) QT Interval new path Invalid 09-24-2016 - [facility] ms Interpretation 09-24-2016 Chir opractic Code (36571) QT interval, new path Invalid 09-24-2016 - Pulm onary electrocardiogram ms Interpretation 017 Medicine of Code [place] (4 [id number]) QTc Anand 374 ms Invalid 09-24-2016 - [facility] Interpretation 09-24-2016 Chir opractic Code (44163) T [place] 31 deg Invalid 09-24-2016 - [facility] Interpretation 09-24-2016 Chir opractic Code (56259) T wave axis, 31 deg Invalid 09-24-2016 - Pulm onary electrocardiogram Interpretation 017 Medicine of Code [place] (4 [id number]) clinical lists update: preload on 2016-09-09 Left ventricular 65 % Invalid Interpretation 09-09-2016 - Pulmonary Ejection fraction Code 09-09-2016 M edicine of [place] (4 [id number]) clinical lists update: preload on 2014-11-08 Cholesterol 106 mg/dL Invalid Interpretation 11-08 - Pulmonary Code 11-08-2014 [facility] [place] (4 [id number]) HDL Cholesterol 54 mg/dL Invalid Interpretation 0 11-08-2014 - Pulmonary Code 11-08-2014 [facility] [place] (4 [id number]) LDL Cholesterol 36 mg/dL Invalid Interpretation 0 11-08-2014 - Pulmonary Code 11-08-2014 [facility] [place] (4 [id number]) Triglyceride 79 mg/dL Invalid Interpretation 040 - Pulmonary Code 11-08-2014 [facility] [place] (4 [id number]) replaced document: midmark ecg observati ons on 2013-07-30 Pulse (Heart 379 ms Invalid Interpretation 07-05 - Pulmonary Medicine Rate) Code 07-30-2013 of [place] (71076) lab report: pt on 2 INR Coag RelTime 1.5 {INR} Normal 07-05-2013 - [facility] (PPP) 07-05-2013 [facility] (68489) INR in blood by 1.5 {INR} Normal 07-05-2013 - P ulmonary Medicine coagulation 07-05-[address] (01370) prothrombin time, 17.0 SECONDS 11.9-14 High 3 - Pulmonary Medicine actual/normal, .4 07-05-2013 of [place] (29237) ratio PTP 17.0 SECONDS 11.9-14 High 07-05-2013 - [facility] .4 07-05-2013 [facility] (25611) lab report: liver o n 2013-07-05 Alanine 31 12-78 U/L Normal 07-05-2013 - Pulmona ry Medicine aminotransferase (ALT) 013 of [place] (72049) Albumin 3.8 3.4-5.0 g/dL Normal 07-05-2013 - Pulmona ry Medicine 07-05-2013 of [place] (34923) Alkaline phosphatase 76 50-136 U/L Normal 3 - Pulmonary Medicine (ALP) 07-05-2013 of [place] (52502) ALP enzyme act/vol 76 50-136 U/L Normal 07-05-2013 - [facility] (Bld) 07-05-2013 [facility] (22303) Aspartate 23 15-37 U/L Normal 07-05-2013 - Pulmona ry Medicine aminotransferase (AST) 013 of [place] (07391) Bilirubin (direct) 0.20 0.00-0.30 mg/dL Normal 07-05-2013 - Pulmonary Medicine 07-05-2013 of [place] (83047) Bilirubin (total) 0.70 0.00-1.00 mg/dL Normal 07-05-2013 - Pulmonary Medicine 07-05-2013 of [place] (37786) lab report: lipid o n 2013-07-05 Lipoprotein.pre-beta mass 11 5-40 mg/dL Normal - [facility] conc 07-05-2013 [facility] (43812) very low density 11 5-40 mg/dL Normal 07-05-2013 - Pulmonary Medicine lipoproteins 07-05-2013 of [place] (96360) lab report: cbc on 2013-07-05 Erythrocytes (RBC) 4.96 4.6-6.2 10*6/uL Normal 07-05-2013 - Pulmonary Medicine 07-05-2013 of [place] (91851) Hematocrit (HCT) 43.4 40-54 % Normal 07-05-2013 - Pulmonary Medicine 07-05-2013 of [place] (81119) Hematocrit Volume 43.4 40-54 % Normal 07-05-2013 - [facility] Fraction (Bld) 07-05-2013 Chir opractic (16710) Hemoglobin (HGB) 15.0 13.0-16.5 g/dL Normal 07-05-2013 - Pulmonary Medicine 07-05-2013 of [place] (44158) Platelets 230 150-450 10*3/mm3 Normal 07-05-2013 - Pulmona ry Medicine 07-05-2013 of [place] (86886) Platelets #/vol 230 150-450 10*3/mm3 Normal 07-05-2013 - [facility] (Bld) 07-05-2013 [facility] (97386) RBC #/vol (Bld) 4.96 4.6-6.2 10*6/uL Normal 07-05-2013 - [facility] 07-05-2013 [facility] (05234) WBC #/vol (Bld) 4.6 4.4-11.0 10*9/L Normal 07-05-2013 - [facility] 07-05-2013 [facility] (92515) WBC (Leukocytes) 4.6 4.4-11.0 10*9/L Normal 07-05-2013 - Pulmonary Medicine 07-05-2013 of [place] (53450) lab report: bmp on 2013-07-05 Calcium 8.6 8.5-10.1 mg/dL Normal 07-05-2013 - Pulmona ry Medicine of 07-05-2013 [place] ( 21021) Chloride 109 98-107 mmol/L High 07-05-2013 - Pulmona ry Medicine of 07-05-2013 [place] ( 47985) Creatinine 1.1 0.8-1.3 mg/dL Normal 07-05-2013 - [facility] Medicine of 07-05-2013 [place] ( 70085) Glucose 91 70-110 mg/dL Normal 07-05-2013 - Pulmona ry Medicine of 07-05-2013 [place] ( 56171) Glucose mass conc 91 70-110 mg/dL Normal 07-05-2013 - [facility] 07-05-2013 [facility] (93097) Potassium 4.1 3.5-5.1 mmol/L Normal 07-05-2013 - Pulmona ry Medicine of 07-05-2013 [place] ( 30295) Sodium 144 136-145 mmol/L Normal 07-05-2013 - Pulmona ry Medicine of 07-05-2013 [place] ( 95782) Urea nitrogen 18 7-18 mg/dL Normal 07-05-2013 - Pul monary Medicine of 07-05-2013 [place] ( 28202) clinical lists update: preload on 2013-01-11 MCH 31.6 pg Invalid Interpretation 013 - Pulmonary Medicine Code 01-11-2013 of [place] (08304) MCH Entitic 31.6 pg 01-11-2013 - [facility] mass (RBC) 01-11-2013 Chiropra [facility]tic (42185) MCHC 35.0 g/dL Invalid Interpretation 013 - Pulmonary Medicine Code 01-11-2013 of [place] (50650) MCHC mass conc 35.0 g/dL 01-11-2013 - [facility] (RBC) 01-11-2013 [facility] (46057) MCV 90.4 fL Invalid Interpretation 013 - Pulmonary Medicine Code 01-11-2013 of [place] (95369) MCV Entitic 90.4 fL 01-11-2013 - [facility] volume (RBC) 01-11-2013 Chirop ractic (06844) lab report: cub on 2012-12-21 Bacteria No growth in Invalid 12-21-2012 - Pulm onary culture 5 days. Interpretation Code 12-21-2012 [facility] [place] (4 [id number]) lab report: crp on 2012-12-15 C reactive protein < 2.90 0.0-3.0 mg/L Normal 12-15-2012 - Pulmonary Medicine (CRP) 12-15-2012 of [place] (26394) clinical lists update: preload on 2012-08-07 Anion gap 10 mmol/L Invalid Interpretation 013 - Pulmonary Medicine Code 08-07-2012 of [place] (28383) Anion gap 4 10 Invalid Interpretation 08-07 - [facility] molar conc Code 08-07-2012 Chiropra ctic (64228) Anion gap 10 mmol/L 08-07-2012 - [facility] molar conc 08-07-2012 Chiropra ctic ([id number]) BUN/Creatinin 16.9 mg/mg Invalid Interpretation - Pulmonary Medicine e Ratio Code 08-07-2012 [facility] [place] ([id number]) CO2 26.0 mmol/L Invalid Interpretation 013 - [facility] Code 08-07-2012 [facility] [place] ([id number]) CO2 ppres 26.0 mmol/L Invalid Interpretation 013 - [facility] (BldV) Code 08-07-2012 Chiroprac tic ([id number]) office visit: left axilla mass on 2007-05-04 Colonoscopy Normal Invalid 05-04-2007 - [facility] S urgical (procedure) Interpretation Code 05-04-20 07 Associates ([id number]) Vital Signs Vital Sign Description Value / Unit Date Location The following section is limited to 5 en tries per type and includes entries from the following time range: [id number] - [id number] 5. BMI (Body Mass Index) 23.63 kg/m2 06-18-2017 - 06-18-2017 [facility] ([id number]) BMI (Body Mass Index) 23.48 kg/m2 06-03-2017 - 06-03-2017 [facility] [place] ([id number]) BMI (Body Mass Index) 24.22 kg/m2 03-24-2017 - 03-24-2017 [facility] ([id number]) BMI (Body Mass Index) 25.54 kg/m2 12-03-2016 - 12-03-2016 [facility] [place] ([id number]) Body Temperature 97.9 [degF] 06-18-2017 - 06-18-2017 [facility] ([id number]) Body Temperature 97.5 [degF] 06-03-2017 - 06-03-2017 [facility] [place] ([id number]) Body Temperature 97.6 [degF] 12-03-2016 - 12-03-2016 [facility] [place] ([id number]) Body Temperature 96.8 [degF] 2016 - 2016 [facility] [place] ([id number]) BP Diastolic 72 mm[Hg] 06-18-2017 - 06-18-2017 [facility] ([id number]) BP Diastolic 62 mm[Hg] 06-03-2017 - 06-03-2017 [facility] [place] ([id number]) BP Diastolic 60 mm[Hg] 03-24-2017 - 03-24-2017 [facility] ([id number]) BP Diastolic 62 mm[Hg] 12-03-2016 - 12-03-2016 [facility] [place] ([id number]) BP Systolic 111 mm[Hg] 06-18-2017 - 06-18-2017 [facility] ([id number]) BP Systolic 97 mm[Hg] 06-03-2017 - 06-03-2017 [facility] [place] ([id number]) BP Systolic 100 mm[Hg] 03-24-2017 - 03-24-2017 [facility] ([id number]) BP Systolic 100 mm[Hg] 12-03-2016 - 12-03-2016 [facility] [place] ([id number]) BSA (Body Surface Area) 1.94 m2 2016 - 2016 [facility] [place] ([id number]) Heart rate 60 /min 09-24-2016 - 09-24-2016 [facility] ([id number]) Heart rate 379 ms 07-30-2013 - 07-30-2013 [facility] int Chiropractic ([id number]) Height 175.26 cm 06-18-2017 - 06-18-2017 [facility] ([id number]) Height 175.26 cm 06-03-2017 - 06-03-2017 [facility] [place] ([id number]) Height 175.26 cm 03-24-2017 - 03-24-2017 [facility] ([id number]) Height 175.26 cm 12-03-2016 - 12-03-2016 [facility] [place] ([id number]) Height 175.26 cm 2016 - 2016 [facility] [place] ([id number]) Pulse (Heart Rate) 59 /min 06-18-2017 - 06-18-2017 [facility] S [facility] ([id number]) Pulse (Heart Rate) 67 /min 06-03-2017 - 06-03-2017 [facility] [place] ([id number]) Pulse (Heart Rate) 60 /min 03-24-2017 - 03-24-2017 [facility] ([id number]) Pulse Oximetry 97 % 12-03-2016 - 12-03-2016 [facility] [place] ([id number]) Pulse Oximetry 97 % 09-10-2016 - 09-10-2016 [facility] [place] ([id number]) Respiratory Rate 18 /min 06-18-2017 - 06-18-2017 [facility] ([id number]) Respiratory Rate 18 /min 06-03-2017 - 06-03-2017 [facility] [place] ([id number]) Respiratory Rate 18 /min 03-24-2017 - 03-24-2017 [facility] ([id number]) Respiratory Rate 18 /min 12-03-2016 - 12-03-2016 [facility] [place] ([id number]) Weight 72.58 kg 06-18-2017 - 06-18-2017 [facility] ([id number]) Weight 72.57 kg 06-18-2017 - 06-18-2017 [facility] ([id number]) Weight 72.12 kg 06-03-2017 - 06-03-2017 [facility] [place] ([id number]) Weight 74.39 kg 03-24-2017 - 03-24-2017 [facility] ([id number]) Weight 78.47 kg 12-03-2016 - 12-03-2016 [facility] [place] ([id number]) Encounters Date Type Reason Provider Location 04-03-2020 Patient encounter HARINDER [facility]agran [facility]ility[facility] 03-01-2020 Patient encounter HARINDER Villagran acility:[facility] procedure [facility] 02-02-2020 Patient encounter HARINDER Villagran acility:[facility] procedure [facility] 01-25-2020 Patient encounter [facility] procedure Services-Samari warner [place] ([id number]) 01-20-2020 Patient encounter [facility] Re[facility] procedure Services-Samari warner [place] ([id number]) 01-17-2020 Patient encounter [facility] procedure Services-Samari warner [place] ([id number]) 01-14-2020 Patient encounter [facility] procedure Services-Samari warner [place] ([id number]) 01-12-2020 Patient encounter [facility] Re[facility] procedure Services-Samari warner [place] ([id number]) 01-10-2020 Patient encounter [facility] procedure Services-Samari warner [place] ([id number]) 01-07-2020 Patient encounter [facility] procedure Services-Samari warner [place] ([id number] 5) 01-06-2020 Patient encounter [facility] procedure Services-Samari warner [place] ([id number] 5) 01-03-2020 [facility] encounter [facility] ([id number]) 12-31-2019 Patient encounter [facility]-Hod[facility] ([id number]) 12-30-2019 Patient encounter [facility] ([id number]) Procedures Procedure Name Date Provider Location Chiropractic manipulative 07-02-2017 - [facility] 07-03-2017 Chiropract ic ([id number]) Chiropractic manipulative 05-21-2017 - [facility] tx [facility] 3-4 regions 05-22-2017 Chiropract ic ([id number]) Chiropractic manipulative 05-12-2017 - [facility] tx spinal 3-4 regions 05-12-2017 Chiropract ic ([id number]) Chiropractic manipulative 05-07-2017 - [facility] B [facility] tx spinal 3-4 regions 05-07-2017 Chiropract ic ([id number]) Chiropractic manipulative 04-23-2017 - [facility] tx spinal 3-4 regions 04-23-2017 Chiropract ic ([id number]) Chiropractic manipulation 04-23-2017 - [facility] 04-23-2017 [facility] ([id number]) Chiropractic manipulative 04-15-2017 - [facility] tx spinal 3-4 regions 04-15-2017 Chiropract ic ([id number]) Chiropractic manipulation 04-15-2017 - [facility] 04-15-2017 [facility] ([id number]) Chiropractic manipulative 04-08-2017 - Marian B [facility]oss[facility] tx spinal 3-4 regions 04-08-2017 Chiropract ic ([id number]) Chiropractic manipulation 04-08-2017 - [facility] 04-08-2017 [facility] ([id number]) *Hepatic Function Panel 03-24-2017 - [facility] 03-27-2017 [facility] ([id number]) DJN 03-24-2017 - Syd Hollingsworth MD [facility] 03-24-2017 [facility] ([id number]) Follow Up Appt 6 months 03-24-2017 - [facility] 03-24-2017 [facility] ([id number]) Lipid 1996 panel - Serum or 03-24-2017 - Syd Hollingsworth MD [facility] Plasma 03-27-2017 [facility]ic ([id number]) *Hepatic Function Panel 03-24-2017 - Syd Hollingsworth [facility] 03-27-2017 ([id number]) DJN 03-24-2017 - Syd Hollingsworth MD [place] [facility] 03-24-2017 ([id number]) Follow Up Appt 6 months 03-24-2017 - Syd Hollingsworth [facility] 03-24-2017 ([id number]) Lipid panel [AGGREGATE] 03-24-2017 - Syd Hollingsworth [facility] 03-27-2017 ([id number]) Follow Up Appt 6 months 03-17-2017 - [facility] ([id number]) Pacer Clinic 03-17-2017 - Paresh Braswell MD [facility] 03-18-2017 [facility] ([id number]) Program eval implantable in 03-17-2017 - Paresh Braswell MD [facility] persn dual ld pacer 03-17-2017 [facility]ractic ([id number]) Follow Up Appt 6 months 03-17-2017 - Paresh Braswell [facility] 03-18-2017 ([id number]) Pacer Clinic 03-17-2017 - Pa[facility] Braswell [facility] [place] [facility] 03-18-2017 ([id number]) Pm device progr eval, dual 03-17-2017 - [facility] 03-17-2017 ([id number]) Chiropractic manipulative 01-14-2017 - Marian Bob [facility] tx spinal 3-4 regions 01-14-2017 Chiropract ic ([id number]) Chiropractic manipulation 01-14-2017 - [facility] 01-14-2017 [facility] ([id number]) Chiropractic manipulative 01-08-2017 - Marian B [facility]ossi [facility] tx spinal 3-4 regions 01-08-2017 Chiropract ic ([id number]) Chiropractic manipulation 01-08-2017 - [facility] 01-08-2017 [facility] ([id number]) Chiropractic manipulative 01-01-2017 - Marian B [facility]ossi [facility] tx spinal 3-4 regions 01-02-2017 Chiropract ic ([id number]) Chiropractic manipulation 01-01-2017 - [facility] 01-02-2017 [facility] ([id number]) Chiropractic manipulative 12-25-2016 - Marian B [facility]ossi [facility] tx spinal 3-4 regions 12-25-2016 Chiropract ic ([id number]) Chiropractic manipulation 12-25-2016 - [facility] 12-25-2016 [facility] ([id number]) Chiropractic manipulative 12-19-2016 - Marian B [facility]ossi [facility] tx spinal 3-4 regions 12-19-2016 Chiropract ic ([id number]) Chiropractic manipulation 12-19-2016 - [facility] 12-19-2016 [facility] ([id number]) Chiropractic manipulative 11-21-2016 - Marian B [facility]ossi [facility] tx spinal 3-4 regions 11-21-2016 Chiropract ic ([id number]) Chiropractic manipulation 11-21-2016 - Marian B Dossi DC [facility]mo [facility] 11-21-2016 [place] ([id number]) Chiropractic manipulative 11-05-2016 - Marian B [facility]ossi [facility] tx spinal 3-4 regions 11-05-2016 Chiropract ic ([id number]) Chiropractic manipulation 11-05-2016 - Marian B Dossi DC [facility] 11-05-2016 [place] ([id number]) Chiropractic manipulative 10-23-2016 - Marian B [facility]ossi [facility] tx spinal 3-4 regions 10-23-2016 Chiropract ic ([id number]) Chiropractic manipulation 10-23-2016 - Marian B Dossi DC Pulmo [facility] of 10-23-2016 [place] ([id number]) Follow Up Appt 3 months 10-16-2016 - [facility] 03-18-2017 BETSY Thompson [facility] ([id number]) Pacer Clinic 10-16-2016 - Amisha Saez [facility] 03-18-2017 BETSY Thompson [facility] ([id number]) Program eval implantable in 10-16-2016 - Amisha Saez [facility] persn dual ld pacer 10-17-2016 BETSY Thompson [facility] ([id number]) Follow Up Appt 3 months 10-16-2016 - [facility] 03-18-2017 [facility] ([id number]) Pacer Clinic 10-16-2016 - [facility] 03-18-2017 BETSY Thompson ([id number]) Pm device progr eval, dual 10-16-2016 - Amisha Saez [facility] of 10-17-2016 BETSY Thompson [place] ([id number]) Chiropractic manipulative 10-14-2016 - Marian Gray [facility] tx spinal 3-4 regions 10-14-2016 Chiropract ic ([id number]) Chiropractic manipulation 10-14-2016 - Marian Gray Dossi DC Pulmo [facility] of 10-14-2016 [place] ([id number]) Chiropractic manipulative 10-08-2016 - Marian B [facility]ossi [facility] tx spinal 3-4 regions 10-08-2016 Chiropract ic ([id number]) Chiropractic manipulation 10-08-2016 - Marian B Dossi DC Pulmo [facility] of 10-08-2016 [place] ([id number]) Chiropractic manipulative 2016 - Marian B [facility]oss[facility] tx spinal 3-4 regions 2016 Chiropract ic ([id number]) Pulmonary Function Test - 2016 - Bladimir Wilson [facility] complete 11-28-2016 [facility] ([id number] 691) Pulmonary stress 2016 - Bladimir Wilson DO [facility] test/simple 11-28-2016 [facility] ([id number] 691) Chiropractic manipulation 2016 - Marian B Dossi DC Pulmo nary Medicine of 2016 [place] ([id number]) Pulmonary Function Test - 2016 - Bladimir Wilson DO Pulmo nary Medicine of complete 11-28-2016 [place] ([id number]) Pulmonary stress 2016 - Bladimir Wilson DO Pulmonary Medi cine of test/simple 11-28-2016 [place] ([id number]) Ecg routine ecg w/least 12 09-24-2016 - Syd [facility]worth [facility] lds w/i&r 03-18-2017 Chi[facility]ractic ([id number]) Electrocardiogram, complete 09-24-2016 - Syd Hollingsworth MD [facility] 03-18-2017 ([id number]) Chiropractic manipulative 09-18-2016 - Marian B [facility]oss[facility] tx spinal 3-4 regions 09-18-2016 Chiropract ic ([id number]) Chiropractic manipulation 09-18-2016 - Marian B Dossi DC Pulmo nary Medicine of 09-18-2016 [place] ([id number]) Chiropractic manipulative 09-11-2016 - [facility] B [facility] tx spinal 3-4 regions 09-11-2016 Chiropract ic ([id number]) Chiropractic manipulation 09-11-2016 - Marian B Dossi DC Pulmo nary [facility] of 09-11-2016 [place] ([id number]) DJN 09-10-2016 - Syd Hollingsworth MD [facility] 09-10-2016 [facility] ([id number]) Follow Up Appt 6 months 09-10-2016 - [facility]worth [facility] 09-10-2016 [facility] ([id number]) Follow Up BP Check 09-10-2016 - Syd Hollingsworth [facility] 09-10-2016 [facility] (44 [id number]) DJN 09-10-2016 - Syd Hollingsworth MD Pulmonary Me dicine of 09-10-2016 [place] ([id number]) Follow Up Appt 6 months 09-10-2016 - Syd Hollingsworth MD [facility] of 09-10-2016 [place] ([id number]) Follow Up BP Check 09-10-2016 - Syd Hollingsworth MD Pulmonary [facility] of 09-10-2016 [place] ([id number]) Placement of stent in 09-09-2016 [facility] coronary artery [facility] (44 691) Placement of stent in 09-09-2016 [facility] coronary artery [facility] (44 691) Chiropractic manipulative 09-05-2016 - [facility] B [facility] tx spinal 3-4 regions 09-05-2016 Chiropract ic ([id number]) Chiropractic manipulation 09-05-2016 - Marian B Dossi DC Pulmo nary Medicine of 09-05-2016 [place] ([id number]) Chiropractic manipulative 08-14-2016 - Marian B [facility]oss[facility] tx spinal 3-4 regions 08-14-2016 Chiropract ic ([id number]) Chiropractic manipulation 08-14-2016 - Marian B Dossi DC Pulmo nary Medicine of 08-14-2016 [place] ([id number]) Chiropractic manipulative 08-07-2016 - Marian B [facility]oss[facility] tx spinal 3-4 regions 08-07-2016 Chiropract ic ([id number]) Chiropractic manipulation 08-07-2016 - Marian B Dossi DC Pulmo nary Medicine of 08-07-2016 [place] ([id number]) Chiropractic manipulative 07-23-2016 - Marian B [facility]ossi [facility] tx spinal 3-4 regions 07-23-2016 Chiropract ic ([id number]) Chiropractic manipulation 07-23-2016 - Marian B Dossi DC Pulmo nary Medicine of 07-23-2016 [place] ([id number]) Chiropractic manipulative 07-18-2016 - Marian B [facility]ossi [facility] tx spinal 3-4 regions 07-18-2016 Chiropract ic ([id number]) Chiropractic manipulation 07-18-2016 - Marian B Dossi DC Pulmo nary Medicine of 07-18-2016 [place] ([id number]) Chiropractic manipulative 07-15-2016 - Marian Gray [facility]i [facility] tx spinal 3-4 regions 07-16-2016 Chiropract ic ([id number]) Chiropractic manipulation 07-15-2016 - Marian Gray Dossi DC Pulmo nary Medicine of 07-16-2016 [place] ([id number]) *Hepatic Function Panel 01-02-2014 - Paresh Braswell [facility] 09-10-2016 [facility] ([id number]) Lipid 1996 panel - Serum or 01-02-2014 - Paresh Braswell MD [facility] Plasma 09-10-2016 [facility]ic ([id number]) *Hepatic Function Panel 01-02-2014 - Paresh Braswell MD Pul onary Medicine of 09-10-2016 [place] ([id number]) Lipid panel [AGGREGATE] 01-02-2014 - Paresh Braswell MD Pul onary Medicine of 09-10-2016 [place] ([id number]) Follow Up Appt 3 months 12-15-2013 - Amisha Saez [facility] 09-10-2016 BETSY Thompson [facility] (44 691) Pacer Clinic 12-15-2013 - Amisha Saez [facility] 09-10-2016 BETSY Thompson [facility] ([id number]) Program eval implantable in 12-15-2013 - Amisha Saez [facility] persn dual ld pacer 12-15-2013 [facility] ([id number]) Follow Up Appt 3 months 12-15-2013 - Amisha Saez Pulmonar y Medicine of 09-10-2016 BETSY Thompson [place] ([id number]) Pacer Clinic 12-15-2013 - Amisha Saez Pulmonary Medici ne of 09-10-2016 [facility] ([id number]) Pm device progr eval, dual 12-15-2013 - Amisha Saez [facility] of 12-15-2013 BETSY Thompson [place] ([id number]) Device Interrogation 10-14-2013 - Paresh Braswell [facility] 10-14-2013 [facility] ([id number]) Follow Up Appt 3 months 10-14-2013 - Paresh Braswell [facility] 01-12-2014 [facility] ([id number]) Follow Up Appt 6 months 10-14-2013 - Paresh Braswell [facility] 10-14-2013 [facility] (44 [id number]) Pacer Clinic 10-14-2013 - Paresh Braswell MD [facility] 01-12-2014 [facility] (44 [id number]) PFM 10-14-2013 - Paresh Braswell MD [facility] 10-14-2013 [facility] (44 691) Program eval implantable in 10-14-2013 - Paresh Braswell MD [facility] persn dual ld pacer 10-14-2013 [facility] ([id number]) Device Interrogation 10-14-2013 - Paresh Braswell MD Pulmona Medicine of 10-14-2013 [place] ([id number]) Follow Up Appt 3 months 10-14-2013 - Paresh Braswell MD Pulm onary Medicine of 01-12-2014 [place] ([id number]) Follow Up Appt 6 months 10-14-2013 - Paresh Braswell MD Pulm onary Medicine of 10-14-2013 [place] ([id number]) Pacer Clinic 10-14-2013 - Paresh Braswell MD Pulmonary Me dicine of 01-12-2014 [place] ([id number]) PFM 10-14-2013 - Paresh Braswell MD Pulmonary Me dicine of 10-14-2013 [place] ([id number]) Pm device progr eval, dual 10-14-2013 - Paresh Braswell MD P ulmonary Medicine of 10-14-2013 [place] ([id number]) Cardiac Rehab 07-30-2013 - Paresh Braswell MD [facility] 01-12-2014 [facility] ([id number]) Cardiovascular stress test 07-30-2013 - Paresh Braswell [facility] using treadmill 10-14-2013 [facility] (44 691) Ecg routine ecg w/least 12 07-30-2013 - Paresh Braswell [facility] lds w/i&r 07-30-2013 [facility] ([id number]) Follow Up Appt 3 months 07-30-2013 - Paresh Braswell [facility] 07-30-2013 [facility] (44 [id number]) PFM 07-30-2013 - Paresh Braswell MD [facility] 07-30-2013 [facility] ([id number]) Cardiac Rehab 07-30-2013 - Paresh Braswell MD Pulmonary Me dicine of 01-12-2014 [place] ([id number]) Cardiovascular stress test 07-30-2013 - Paresh Braswell MD P ulmonary Medicine of using treadmill 10-14-2013 [place] ([id number]) Electrocardiogram, complete 07-30-2013 - Paresh Braswell MD Pulmonary Medicine of 07-30-2013 [place] ([id number]) Follow Up Appt 3 months 07-30-2013 - Paresh Braswell MD Pulm onary Medicine of 07-30-2013 [place] ([id number]) PFM 07-30-2013 - Paresh Braswell MD Pulmonary Me dicine of 07-30-2013 [place] ([id number]) Ecg routine ecg w/least 12 07-08-2013 - Paresh Braswell [facility] lds w/i&r 07-08-2013 [facility] ([id number]) Echocardiography 07-08-2013 - Paresh Braswell MD [facility] 01-12-2014 [facility] (44 691) Left Heart Cath 07-08-2013 - Paresh Braswell MD [facility] 01-12-2014 [facility] ([id number]) Echocardiography 07-08-2013 - Paresh Braswell MD Pulmonary M edicine of 01-12-2014 [place] ([id number]) Electrocardiogram, complete 07-08-2013 - Paresh Braswell MD Pulmonary Medicine of 07-08-2013 [place] ([id number]) Left Heart Cath 07-08-2013 - Paresh Braswell MD Pulmonary Me dicine of 01-12-2014 [place] ([id number]) Lipid 1996 panel - Serum or 06-29-2013 - Paresh Braswell MD [facility] Plasma 07-07-2013 [facility] ([id number] 691) Lipid panel [AGGREGATE] 06-29-2013 - Paresh Braswell MD Pulm onary Medicine of 07-07-2013 [place] ([id number]) *BMP 06-28-2013 - Paresh Braswell MD [facility] 07-07-2013 [facility] ([id number]) *Hepatic Function Panel 06-28-2013 - [facility] ([id number] 691) CBC W Auto Differential 06-28-2013 - Paresh Braswell MD [facility] panel - Blood 07-07-2013 [facility] (44 [id number]) Chest x-ray 06-28-2013 - Paresh Braswell MD [facility] 01-12-2014 [facility] (44 691) Ecg routine ecg w/least 12 06-28-2013 - Paresh Braswell MD [facility] lds w/i&r 01-12-2014 [facility] (44 691) INR in Platelet poor plasma 06-28-2013 - Paresh Braswell MD [facility] by Coagulation assay 07-07-2013 Chiropracti c ([id number]) Left & Right Heart Cath 06-28-2013 - Paresh Braswell MD [facility] 01-12-2014 [facility]ract[facility] ([id number]) *BMP 06-28-2013 - Paresh Braswell MD Pulmonary Me dicine of 07-07-2013 [place] ([id number]) *Hepatic Function Panel 06-28-2013 - Paresh Braswell MD Pulm onary Medicine of 07-07-2013 [place] ([id number]) CBC W Auto Differential 06-28-2013 - Paresh Braswell MD Pulm onary Medicine of panel - Blood 07-07-2013 [place] ([id number]) Chest x-ray 06-28-2013 - Paresh Braswell MD Pulmonary Me dicine of 01-12-2014 [place] ([id number]) Coagulation factor 06-28-2013 - Paresh Braswell MD Pulmonary Medicine of induced.INR assay in 07-07-2013 [place] ([id number]) platelet poor plasma Electrocardiogram, complete 06-28-2013 - Paresh Braswell MD Pulmonary Medicine of 01-12-2014 [place] ([id number]) Left & Right Heart Cath 06-28-2013 - Paresh Braswell MD Pulm onary Medicine of 01-12-2014 [place] ([id number]) Follow Up Appt 3 months 06-17-2013 - Paresh Braswell [facility] 06-28-2013 [facility] ([id number]) Interrogation eval remote 06-17-2013 - Paresh Braswell MD [facility] </90 d 1/2/cutter brake lining lead pm 06-17-2013 [facility]iro[facility]ac tic ([id number]) Pacer Clinic 06-17-2013 - Paresh Braswell MD [facility] 06-28-2013 [facility] ([id number]) Follow Up Appt 3 months 06-17-2013 - Paresh Braswell MD Pulm onary Medicine of 06-28-2013 [place] ([id number]) Pacer Clinic 06-17-2013 - Paresh Braswell MD Pulmonary Me dicine of 06-28-2013 [place] ([id number]) Pm device interrogate 06-17-2013 - Paresh Braswell MD [facility]mon [facility] of remote 06-17-2013 [place] ([id number]) Follow Up Appt 3 months 05-10-2013 - Paresh Braswell MD [facility] 01-12-2014 [facility] (44 691) PFM 05-10-2013 - Paresh Braswell MD [facility] 06-28-2013 [facility] (44 [id number]) Pulmonary Fuction Test - 05-10-2013 - Paresh Braswell MD [facility] complete 06-11-2013 [facility] ([id number]) Follow Up Appt 3 months 05-10-2013 - Paresh Braswell MD Pulm onary Medicine of 01-12-2014 [place] ([id number]) PFM 05-10-2013 - Paresh Braswell MD Pulmonary Me dicine of 06-28-2013 [place] ([id number]) Pulmonary Fuction Test - 05-10-2013 - [facility] 06-11-2013 [place] ([id number]) Follow Up Appt 3 months 03-12-2013 - [facility] 06-[facility] ([id number]) Pacer Clinic 03-12-2013 - Paresh Braswell MD [facility] 06-28-2013 [facility] (44 [id number]) Program eval implantable in 03-12-2013 - Paresh Braswell MD [facility] persn dual ld pacer 03-12-2013 [facility] ([id number]) Follow Up Appt 3 months 03-12-2013 - Paresh Braswell MD [facility] 06-28-2013 [place] ([id number]) Pacer Clinic 03-12-2013 - Paresh Braswell MD Pulmonary Me dicine of 06-28-2013 [place] ([id number]) Pm device progr eval, dual 03-12-2013 - Paresh Braswell MD P [facility] Medicine of 03-12-2013 [place] ([id number]) Follow Up Appt 3 months 02-03-2013 - Paresh Braswell MD [facility] 02-03-2013 [facility] (44 [id number]) PFM 02-03-2013 - Paresh Braswell MD [facility] 02-03-2013 [facility] ([id number]) Follow Up Appt 3 months 02-03-2013 - Paresh Braswell MD [facility] of 02-03-2013 [place] ([id number]) PFM 02-03-2013 - Paresh Braswell MD Pulmonary Me dicine of 02-03-2013 [place] ([id number]) Bacteria identified in 12-25-2012 - Olga Priec MD [facility] oi Urine by Culture 06-28-2013 [facility]ract[facility] ([id number]) Urine culture, bacteria 12-25-2012 - Olga Price MD [facility] Medicine of 06-28-2013 [place] ([id number]) Follow Up Appt 6 weeks 12-23-2012 - Paresh Braswell [facility] 12-23-2012 [facility] ([id number] [id number]) Follow Up Appt Other 12-23-2012 - Paresh Braswell MD [facility] 12-23-2012 [facility] (44 691) MMM 12-23-2012 - Paresh Braswell MD [facility] 12-23-2012 [facility] (44 691) PFM 12-23-2012 - Paresh Braswell MD [facility] 12-23-2012 [facility] ([id number]) Follow Up Appt 6 weeks 12-23-2012 - Paresh Braswell MD Pulmo nary Medicine of 12-23-2012 [place] ([id number]) Follow Up Appt Other 12-23-2012 - Paresh Braswell MD Pulmona ry Medicine of 12-23-2012 [place] ([id number]) MMM 12-23-2012 - Paresh Braswell MD Pulmonary Me dicine of 12-23-2012 [place] ([id number]) PFM 12-23-2012 - Paresh Braswell MD Pulmonary Me dicine of 12-23-2012 [place] ([id number]) *BMP 12-15-2012 - Amisha Saez [facility] 12-15-2012 BET[facility] Thompson [facility] ([id number] 691) *CBC with Differential 12-15-2012 - Paresh Braswell [facility] 12-15-2012 Amisha Saez [facility] ([id number] 691) [facility] Bacteria identified in 12-15-2012 - Amisha Saez [facility] Blood by Culture 06-28-2013 [facility] ([id number]) Blood Culture 12-15-2012 - Amisha Saez [facility] 06-28-2013 [facility] ([phone]) C reactive protein 12-15-2012 - Amisha Saez [facility] [Mass/volume] in Serum or 12-15-2012 [facility] ([id number]) Plasma by High sensitivity method *BMP 12-15-2012 - Amisha Saez [facility] 12-15-2012 [facility] [place] ([id number]) *CBC with Differential 12-15-2012 - [facility] 12-15-2012 [facility] ([phone]) BETSY [facility] MD, PA-C Bacteria culture 12-15-2012 - Amisha Saez [facility] of 06-28-2013 [facility] Thompson [place] ([id number]) Blood Culture 12-15-2012 - Amisha Saez [facility] 06-28-2013 [facility] [place] ([id number]) C reactive protein (hsCRP) 12-15-2012 - Amisha Saez [facility] 12-15-2012 [facility] [place] ([id number]) Follow Up Appt 3 months 12-11-2012 - [facility] 06-28-2013 [facility] ([phone]) Pacer Clinic 12-11-2012 - Paresh Braswell [facility] 06-28-2013 [facility] ([phone]) Program eval implantable in 12-11-2012 - Paresh Braswell [facility] persn dual ld pacer 12-11-2012 [facility] ([id number]) Follow Up Appt 3 months 12-11-2012 - Paresh Braswell MD [facility] 06-28-2013 [place] ([id number]) Pacer Clinic 12-11-2012 - Paresh Braswell MD [facility] of 06-28-2013 [place] ([id number]) Pm device progr eval, dual 12-11-2012 - [facility] 12-11-2012 [place] ([id number]) *BMP 11-24-2012 - Paresh Braswell MD [facility] 12-15-2012 [facility] ([phone]) *BMP 11-24-2012 - Paresh Braswell MD [facility] of 12-15-2012 [place] ([id number]) Follow Up Appt 2 months 10-26-2012 - [facility] ([phone]) Nuclear stress test 10-26-2012 - Paresh Braswell [facility] int -adenosine 06-28-2013 [facility] ([phone]) PFM 10-26-2012 - Paresh Braswell MD [facility] 10-26-2012 [facility] ([phone]) Xtrnl mobile cv telemetry 10-26-2012 - Pa[facility] w/i&report 30 days 06-28-2013 [facility] ([id number]) Follow Up Appt 2 months 10-26-2012 - Paresh Braswell MD [facility] 06-28-2013 [place] ([id number]) Nuclear stress test 10-26-2012 - Paresh Braswell MD Pulmonar y Medicine of -adenosine 06-28-2013 [place] ([id number]) PFM 10-26-2012 - Paresh Braswell MD [facility] 10-26-2012 [place] ([id number]) Remote 30 day ecg 10-26-2012 - Paresh Braswell MD [facility] of rev/report 06-28-2013 [place] ([id number]) Ecg routine ecg w/least 12 10-08-2012 - [facility] lds w/i&r 10-08-2012 [facility] ([phone]) Electrocardiogram, complete 10-08-2012 - Paresh Braswell MD [facility]monary [facility] of 10-08-2012 [place] ([id number]) 24 hour holter monitor 09-17-2012 - [facility] 06-28-2013 [facility] ([phone]) 24 hour holter monitor 09-17-2012 - [facility] 06-28-2013 [place] ([id number]) Ecg routine ecg w/least 12 09-02-2012 - [facility] lds w/i&r 09-02-2012 [facility] ([phone]) Follow Up Appt 6 weeks 09-02-2012 - [facility] 09-02-2012 [facility] ([phone]) PF 09-02-2012 - Paresh Braswell MD [facility] 09-17-2012 [facility] ([phone]) Electrocardiogram, complete 09-02-2012 - Paresh Braswell MD [facility]monary [facility] of 09-02-2012 [place] ([id number]) Follow Up Appt 6 weeks 09-02-2012 - [facility] 09-02-2012 [place] ([id number]) PFM 09-02-2012 - Paresh Braswell MD [facility] of 09-17-2012 [place] ([id number]) Plan of Treatment Plan Description Date Location Appointment Appointment 12-02-2017 - [facility] 12-02-2017 [place] ([id number]) *Hepatic Function Panel *Hepatic Function Panel 09-29-2017 - [facility] 04-04-2017 [facility] ([phone]) *Lipid Profile CC PCP *Lipid Profile CC PCP 09-29-2017 - [facility] 04-04-2017 [facility] ([phone]) *Hepatic Function Panel *Hepatic Function Panel 09-29-2017 - [place] [facility] 04-04-2017 ([id number]) *Lipid Profile CC PCP *Lipid Profile CC PCP 09-29-2017 - [facility] 04-04-2017 ([id number]) Appointment no information 09-23-2017 - [place] [facility] 09-23-2017 ([id number]) Appointment Appointment 09-15-2017 - [place] [facility] 09-15-2017 ([id number]) Appointment Appointment 06-18-2017 - [facility] 06-18-2017 [facility] ([phone]) CT Chest with Contrast CT Chest with Contrast 06-18-2017 - [facility] Surgical 06-18-2017 [facility] ([phone]) DMB DMB 06-03-2017 - [facility] 06-03-2017 [place] ([id number]) Follow Up Appt 6 months Follow Up Appt 6 months 06-03-2017 - [facility] of 06-03-2017 [place] ([id number]) Appointment Appointment 06-03-2017 - [facility] 06-03-2017 [place] ([id number]) Appointment Appointment 06-03-2017 - [facility] 06-03-2017 [facility] ([phone]) Appointment Appointment 05-21-2017 - [facility] 05-21-2017 [facility] ([phone]) Appointment Appointment 05-12-2017 - [facility] 05-12-2017 [facility] ([phone]) Appointment Appointment 05-07-2017 - [facility] 05-07-2017 [facility] ([phone]) Appointment Appointment 04-23-2017 - [facility] 04-23-2017 [facility] ([phone]) Appointment Appointment 04-15-2017 - [facility] 04-15-2017 [facility] ([phone]) Appointment Appointment 04-08-2017 - [place] [facility] 04-08-2017 ([id number]) *Hepatic Function Panel *Hepatic Function Panel 03-24-2017 - [facility] 03-27-2017 [facility] ([phone]) DJN JOSSELIN 03-24-2017 - [facility] 03-24-2017 [facility] ([phone]) Follow Up Appt 6 months Follow Up Appt 6 months 03-24-2017 - [facility] 03-24-2017 [facility] ([phone]) *Lipid Profile CC PCP *Lipid Profile CC PCP 03-24-2017 - [facility] 03-27-2017 [facility] ([phone]) Appointment Appointment 03-24-2017 - [place] [facility] 03-24-2017 ([id number]) *Hepatic Function Panel *Hepatic Function Panel 03-24-2017 - [place] [facility] 03-27-2017 ([id number]) DJN CHRISTIANON 03-24-2017 - [place] [facility] 03-24-2017 ([id number]) Follow Up Appt 6 months Follow Up Appt 6 months 03-24-2017 - [place] [facility] 03-24-2017 ([id number]) *Lipid Profile CC PCP *Lipid Profile CC PCP 03-24-2017 - [facility] 03-27-2017 ([id number]) Follow Up Appt 6 months Follow Up Appt 6 months 03-17-2017 - [facility] 03-18-2017 [facility] ([phone]) Pacer Clinic Pacer Clinic 03-17-2017 - [facility] 03-18-2017 [facility] ([phone]) Appointment Appointment 03-17-2017 - [facility] 03-17-2017 [place] ([id number]) Appointment Appointment 03-17-2017 - [facility] 03-17-2017 [facility] ([phone]) Follow Up Appt 6 months Follow Up Appt 6 months 03-17-2017 - [place] [facility] 03-18-2017 ([id number]) Pacer Clinic Pacer Clinic 03-17-2017 - [place] [facility] 03-18-2017 ([id number]) Appointment Appointment 01-14-2017 - [facility] 01-14-2017 [facility] ([phone]) Appointment Appointment 01-08-2017 - [facility] 01-08-2017 [facility] ([phone]) Appointment Appointment 01-08-2017 - [facility] 01-08-2017 [facility] ([phone]) Appointment Appointment 01-01-2017 - [facility] 01-01-2017 [facility] ([phone]) Appointment Appointment 12-25-2016 - [facility] 12-25-2016 [facility] ([phone]) Appointment Appointment 12-19-2016 - [facility] 12-19-2016 [facility] ([phone]) DMIsaac GILLESPIE 12-03-2016 - [facility] 12-03-2016 [facility] ([phone]) Follow Up Appt 6 months Follow Up Appt 6 months 12-03-2016 - [facility] 12-03-2016 [facility] ([phone]) Appointment Appointment 12-03-2016 - [facility] 12-03-2016 [place] ([id number]) DMIsaac GILLESPIE 12-03-2016 - [facility] 12-03-2016 [place] ([id number]) Follow Up Appt 6 months Follow Up Appt 6 months 12-03-2016 - [facility] of 12-03-2016 [place] ([id number]) Follow Up Appt 3 months Follow Up Appt 3 months 10-16-2016 - [facility] 03-18-2017 [facility] ([phone]) Pacer Clinic Pacer Clinic 10-16-2016 - [facility] 03-18-2017 [facility] ([phone]) Follow Up Appt 3 months Follow Up Appt 3 months 10-16-2016 - [facility] of 03-18-2017 [place] ([id number]) Pacer Clinic Pacer Clinic 10-16-2016 - [facility] 03-18-2017 [place] ([id number]) Follow up Appt 1x/week Follow up Appt 1x/week 10-08-2016 - [facility] 10-08-2016 [facility] ([phone]) Follow up Appt 1x/week Follow up Appt 1x/week 10-08-2016 - [facility] of 10-08-2016 [place] ([id number]) VERNA GILLESPIE 2016 - [facility] 2016 [facility] ([phone]) Follow up Appt 1x/week Follow up Appt 1x/week 2016 - [facility] ([phone]) Follow Up Appt 2 months Follow Up Appt 2 months 2016 - [facility] 2016 [facility] ([phone]) Pulmonary Function Test - Pulmonary Function Test 2016 - [facility] complete - complete 11-28-2016 [facility] ([phone]) Pulmonary stress testing; Pulmonary stress 2016 - [facility] simple (eg, 6-minute testing; simple (eg, 11-28-2016 [facility] ([id number]) walk) 6-minute walk) DMB DMB 2016 - [facility] of 2016 [place] ([id number]) Follow up Appt 1x/week Follow up Appt 1x/week 2016 - [facility] of 2016 [place] ([id number]) Follow Up Appt 2 months Follow Up Appt 2 months 2016 - [facility] of 2016 [place] ([id number]) Pulmonary Function Test - Pulmonary Function Test 2016 - [facility]monary [facility] of complete - complete 11-28-2016 [place] ([id number]) Pulmonary stress testing; Pulmonary stress 2016 - Pulmo nary Medicine of simple (eg, 6-minute testing; simple (eg, 11-28-2016 [place] ([id number]) walk) 6-minute walk) EKG (In office) EKG (In office) 09-24-2016 - [facility] 03-18-2017 [facility] ([phone]) EKG (In office) EKG (In office) 09-24-2016 - [facility] of 03-18-2017 [place] ([id number]) Follow up Appt 1x/week Follow up Appt 1x/week 09-18-2016 - [facility] 09-18-2016 [facility] ([phone]) Follow up Appt 1x/week Follow up Appt 1x/week 09-18-2016 - [facility] 09-18-2016 [place] ([id number]) Follow up Appt 2x/week Follow up Appt 2x/week 09-11-2016 - [facility] 09-11-2016 [facility] ([phone]) Follow up Appt 2x/week Follow up Appt 2x/week 09-11-2016 - [facility] 09-11-2016 [place] ([id number]) JOSSELIN SCHWAB 09-10-2016 - [facility] 09-10-2016 [facility] ([phone]) Follow Up Appt 6 months Follow Up Appt 6 months 09-10-2016 - [facility] 09-10-2016 [facility] ([phone]) Follow Up BP Check Follow Up BP Check 09-10-2016 - [facility] 09-10-[facility] ([phone]) DJN DJN 09-10-2016 - [facility] 09-10-2016 [place] ([id number]) Follow Up Appt 6 months Follow Up Appt 6 months 09-10-2016 - [facility] of 09-10-2016 [place] ([id number]) Follow Up BP Check Follow Up BP Check 09-10-2016 - [facility] of 09-10-2016 [place] ([id number]) Follow up Appt 2x/week Follow up Appt 2x/week 09-05-2016 - [facility] 09-05-2016 [facility] ([phone]) Follow up Appt 2x/week Follow up Appt 2x/week 09-05-2016 - [facility] 09-05-2016 [place] ([id number]) Follow up Appt 2x/week Follow up Appt 2x/week 08-14-2016 - [facility] 08-14-2016 [facility] ([phone]) Follow up Appt 2x/week Follow up Appt 2x/week 08-14-2016 - [facility] of 08-14-2016 [place] ([id number]) Follow up Appt 2x/week Follow up Appt 2x/week 08-07-2016 - [facility] 08-07-2016 [facility] ([phone]) Follow up Appt 2x/week Follow up Appt 2x/week 08-07-2016 - [facility] of 08-07-2016 [place] ([id number]) Follow up Appt 2x/week Follow up Appt 2x/week 07-23-2016 - [facility] 07-23-2016 [facility] ([phone]) Follow up Appt 2x/week Follow up Appt 2x/week 07-23-2016 - [facility] of 07-23-2016 [place] ([id number]) Follow up Appt 2x/week Follow up Appt 2x/week 07-18-2016 - [facility] 07-18-2016 [facility] ([phone]) Follow up Appt 2x/week Follow up Appt 2x/week 07-18-2016 - [facility] of 07-18-2016 [place] ([id number]) Follow up Appt 2x/week Follow up Appt 2x/week 07-15-2016 - [facility] 07-16-2016 [facility] ([phone]) Follow up Appt 2x/week Follow up Appt 2x/week 07-15-2016 - [facility] 07-16-2016 [place] ([id number]) *Hepatic Function Panel *Hepatic Function Panel 01-02-2014 - [facility] 09-10-2016 [facility] ([phone]) *Lipid Profile CC PCP *Lipid Profile CC PCP 01-02-2014 - [facility] 09-10-2016 [facility] ([phone]) *Hepatic Function Panel *Hepatic Function Panel 01-02-2014 - [facility]monary [facility] of 09-10-2016 [place] ([id number]) *Lipid Profile CC PCP *Lipid Profile CC PCP 01-02-2014 - [facility]m onary [facility] of 09-10-2016 [place] ([id number]) Follow Up Appt 3 months Follow Up Appt 3 months 12-15-2013 - [facility] 09-10-2016 [facility] ([phone]) Pacer Clinic Pacer Clinic 12-15-2013 - [facility] 09-10-2016 [facility] ([phone]) Follow Up Appt 3 months Follow Up Appt 3 months 12-15-2013 - [facility] of 09-10-2016 [place] ([id number]) Pacer Clinic Pacer Clinic 12-15-2013 - [facility] 09-10-2016 [place] ([id number]) Device Interrogation Device Interrogation 10-14-2013 - [facility] 10-14-2013 [facility] ([phone]) Follow Up Appt 3 months Follow Up Appt 3 months 10-14-2013 - [facility] 01-12-2014 [facility] ([phone]) Follow Up Appt 6 months Follow Up Appt 6 months 10-14-2013 - [facility] 10-14-2013 [facility] ([phone]) Pacer Clinic Pacer Clinic 10-14-2013 - [facility] 01-12-2014 [facility] ([phone]) PFM PFM 10-14-2013 - [facility] 10-14-2013 [facility] ([phone]) Device Interrogation Device Interrogation 10-14-2013 - [facility] 10-14-2013 [place] ([id number]) Follow Up Appt 3 months Follow Up Appt 3 months 10-14-2013 - Pulmonary [facility] of 01-12-2014 [place] ([id number]) Follow Up Appt 6 months Follow Up Appt 6 months 10-14-2013 - [facility] of 10-14-2013 [place] ([id number]) Pacer Clinic Pacer Clinic 10-14-2013 - [facility] of 01-12-2014 [place] ([id number]) PFM PFM 10-14-2013 - [facility] 10-14-2013 [place] ([id number]) Cardiac Rehab Cardiac Rehab 07-30-2013 - [facility] 01-12-2014 [facility] ([phone]) Treadmill stress test (no Treadmill stress test 07-30-2013 - [facility] imaging) (no imaging) 07-30-2013 [facility] ([phone]) EKG (In office) EKG (In office) 07-30-2013 - [facility] 07-30-2013 [facility] ([phone]) Follow Up Appt 3 months Follow Up Appt 3 months 07-30-2013 - [facility] 07-30-2013 [facility] ([phone]) PFM PFM 07-30-2013 - [facility] 07-30-2013 [facility] ([phone]) Cardiac Rehab Cardiac Rehab 07-30-2013 - [facility] of 01-12-2014 [place] ([id number]) Treadmill stress test (no Treadmill stress test 07-30-2013 - Pulmonary Medicine of imaging) (no imaging) 07-30-2013 [place] ([id number]) EKG (In office) EKG (In office) 07-30-2013 - [facility] of 07-30-2013 [place] ([id number]) Follow Up Appt 3 months Follow Up Appt 3 months 07-30-2013 - Pulmonary Medicine of 07-30-2013 [place] ([id number]) PFM PFM 07-30-2013 - [facility] of 07-30-2013 [place] ([id number]) EKG (In office) EKG (In office) 07-08-2013 - [facility] 07-08-2013 [facility] ([phone]) Echocardiogram (complete) Echocardiogram 07-08-2013 - [facility] (complete) 07-08-2013 [facility] ([phone]) Left Heart Cath Left Heart Cath 07-08-2013 - [facility] 07-08-2013 [facility] ([phone]) Echocardiogram (complete) Echocardiogram 07-08-2013 - [facility] (complete) 07-08-2013 [place] ([id number]) EKG (In office) EKG (In office) 07-08-2013 - [facility] of 07-08-2013 [place] ([id number]) Left Heart Cath Left Heart Cath 07-08-2013 - [facility] of 07-08-2013 [place] ([id number]) *Lipid Profile CC PCP *Lipid Profile CC PCP 06-29-2013 - [facility] 07-07-2013 [facility] ([phone]) *Lipid Profile CC PCP *Lipid Profile CC PCP 06-29-2013 - [facility]m [facility] of 07-07-2013 [place] ([id number]) *BMP *BMP 06-28-2013 - [facility] 07-07-2013 [facility] ([phone]) *Hepatic Function Panel *Hepatic Function Panel 06-28-2013 - [facility] 07-07-2013 [facility] ([phone]) *CBC without Diff *CBC without Diff 06-28-2013 - [facility] 07-07-2013 [facility] ([phone]) X-Ray, Chest, PA & X-Ray, Chest, PA & 06-28-2013 - [facility] L[facility] Lateral 01-12-2014 [facility] ([phone]) EKG (In office) EKG (In office) 06-28-2013 - [facility] 01-12-2014 [facility] ([phone]) *PT/INR *PT/INR 06-28-2013 - [facility] 07-07-2013 [facility] ([phone]) Left & Right Heart Cath Left & Right Heart Cath 06-28-2013 - [facility] 06-28-2013 [facility] ([phone]) *BMP *BMP 06-28-2013 - [facility] 07-07-2013 [place] ([id number]) *Hepatic Function Panel *Hepatic Function Panel 06-28-2013 - [facility] of 07-07-2013 [place] ([id number]) *CBC without Diff *CBC without Diff 06-28-2013 - Pulmonary Me [facility]icine of 07-07-2013 [place] ([id number]) X-Ray, Chest, PA & X-Ray, Chest, PA & 06-28-2013 - Pulmonary Medicine of Lateral Lateral 01-12-2014 [place] ([id number]) *PT/INR *PT/INR 06-28-2013 - [facility] of 07-07-2013 [place] ([id number]) EKG (In office) EKG (In office) 06-28-2013 - [facility] of 01-12-2014 [place] ([id number]) Left & Right Heart Cath Left & Right Heart Cath 06-28-2013 - [facility]monary [facility] of 06-28-2013 [place] ([id number]) Follow Up Appt 3 months Follow Up Appt 3 months 06-17-2013 - [facility] 06-28-2013 [facility] ([phone]) Pacer Clinic Pacer Clinic 06-17-2013 - [facility] 06-28-2013 [facility] ([phone]) Follow Up Appt 3 months Follow Up Appt 3 months 06-17-2013 - [facility]monary [facility] of 06-28-2013 [place] ([id number]) Pacer Clinic Pacer Clinic 06-17-2013 - [facility] of 06-28-2013 [place] ([id number]) Follow Up Appt 3 months Follow Up Appt 3 months 05-10-2013 - [facility] 01-12-2014 [facility] ([phone]) PFM PFM 05-10-2013 - [facility] 06-28-2013 [facility] ([phone]) Pulmonary Fuction Test - Pulmonary Fuction Test - 05-10-2013 - [facility] complete complete 06-11-2013 [facility] ([phone]) Follow Up Appt 3 months Follow Up Appt 3 months 05-10-2013 - Pulmonary Medicine of 01-12-2014 [place] ([id number]) PFM PFM 05-10-2013 - [facility] of 06-28-2013 [place] ([id number]) Pulmonary Fuction Test - Pulmonary Fuction Test - 05-10-2013 - Pulmonary Medicine of complete complete 06-11-2013 [place] ([id number]) Follow Up Appt 3 months Follow Up Appt 3 months 03-12-2013 - [facility] 06-28-2013 [facility] ([phone]) [facility] 03-12-2013 - [facility] 06-28-2013 [facility] ([phone]) Follow Up Appt 3 months Follow Up Appt 3 months 03-12-2013 - Pulmonary Medicine of 06-28-2013 [place] ([id number]) [facility] 03-12-2013 - Pulmonary Medici ne of 06-28-2013 [place] ([id number]) Follow Up Appt 3 months Follow Up Appt 3 months 02-03-2013 - [facility] 02-03-2013 [facility] ([phone]) PFM PFM 02-03-2013 - [facility] 02-03-2013 [facility] ([phone]) Follow Up Appt 3 months Follow Up Appt 3 months 02-03-2013 - Pulmonary [facility] of 02-03-2013 [place] ([id number]) PFM PFM 02-03-2013 - [facility] of 02-03-2013 [place] ([id number]) *C&S, Routine Bacteria *C&S, Routine Bacteria 12-25-2012 - [facility] 06-28-2013 [facility] ([phone]) *C&S, Routine Bacteria *C&S, Routine Bacteria 12-25-2012 - [facility] 06-28-2013 [place] ([id number]) Follow Up Appt 6 weeks Follow Up Appt 6 weeks 12-23-2012 - [facility] 12-23-2012 [facility] ([phone]) Follow Up Appt Other Follow Up Appt Other 12-23-2012 - [facility] 12-23-2012 [facility] ([phone]) MMM MMM 12-23-2012 - [facility] 12-23-2012 [facility] ([phone]) PFM PFM 12-23-2012 - [facility] 12-23-2012 [facility] ([phone]) Follow Up Appt 6 weeks Follow Up Appt 6 weeks 12-23-2012 - [facility] 12-23-2012 [place] ([id number]) Follow Up Appt Other Follow Up Appt Other 12-23-2012 - [facility] 12-23-2012 [place] ([id number]) MMM MMM 12-23-2012 - [facility] of 12-23-2012 [place] ([id number]) PFM PFM 12-23-2012 - [facility] of 12-23-2012 [place] ([id number]) *BMP *BMP 12-15-2012 - [facility] 12-15-2012 [facility] ([phone]) *CBC with Differential *CBC with Differential 12-15-2012 - [facility] 12-15-2012 [facility] ([phone]) *CUB - Culture, Blood *CUB - Culture, Blood 12-15-2012 - [facility] 12-21-2012 [facility] ([phone]) Blood Culture Blood Culture 12-15-2012 - [facility] 06-28-2013 [facility] ([phone]) *CRP - C-Reative Protein *CRP - C-Reative Protein 12-15-2012 - [facility] 12-15-2012 [facility] ([phone]) *BMP *BMP 12-15-2012 - [facility] of 12-15-2012 [place] ([id number]) *CBC with Differential *CBC with Differential 12-15-2012 - [facility] 12-15-2012 [facility] ([phone]) *CUB - Culture, Blood *CUB - Culture, Blood 12-15-2012 - Pulm on[facility] of 12-21-2012 [place] ([id number]) Blood Culture Blood Culture 12-15-2012 - [facility] of 06-28-2013 [place] ([id number]) *CRP - C-Reative Protein *CRP - C-Reative Protein 12-15-2012 - [facility] of 12-15-2012 [place] ([id number]) Follow Up Appt 3 months Follow Up Appt 3 months 12-11-2012 - [facility] 06-28-2013 [facility] ([phone]) Pacer Clinic Pacer Clinic 12-11-2012 - [facility] 06-28-2013 [facility] ([phone]) Follow Up Appt 3 months Follow Up Appt 3 months 12-11-2012 - [facility]monary [facility] of 06-28-2013 [place] ([id number]) Pacer Clinic Pacer Clinic 12-11-2012 - [facility] of 06-28-2013 [place] ([id number]) *BMP *BMP 11-24-2012 - [facility] 12-15-2012 [facility] ([phone]) *BMP *BMP 11-24-2012 - [facility] of 12-15-2012 [place] ([id number]) Follow Up Appt 2 months Follow Up Appt 2 months 10-26-2012 - [facility] 06-28-2013 [facility] ([phone]) Nuclear stress test Nuclear stress test 10-26-2012 - [facility] int -adenosine -adenosine 10-26-2012 [facility] ([phone]) PFM PFM 10-26-2012 - [facility] 10-26-2012 [facility] ([phone]) 30 Day Holter Monitor 30 Day Holter Monitor 10-26-2012 - [facility] 10-26-2012 [facility] ([phone]) Follow Up Appt 2 months Follow Up Appt 2 months 10-26-2012 - Pulmonary Medicine of 06-28-2013 [place] ([id number]) Nuclear stress test Nuclear stress test 10-26-2012 - Pulmonar y Medicine of -adenosine -adenosine 10-26-2012 [place] ([id number]) PFM PFM 10-26-2012 - [facility] of 10-26-2012 [place] ([id number]) 30 Day Holter Monitor 30 Day Holter Monitor 10-26-2012 - Pulm onary Medicine of 10-26-2012 [place] ([id number]) EKG (In office) EKG (In office) 10-08-2012 - [facility] 10-08-2012 [facility] ([phone]) EKG (In office) EKG (In office) 10-08-2012 - [facility] of 10-08-2012 [place] ([id number]) 24 hour holter monitor 24 hour holter monitor 09-17-2012 - [facility] 06-28-2013 [facility] ([phone]) 24 hour holter monitor 24 hour holter monitor 09-17-2012 - [facility] of 06-28-2013 [place] ([id number]) EKG (In office) EKG (In office) 09-02-2012 - [facility] 09-02-2012 [facility] ([phone]) Follow Up Appt 6 weeks Follow Up Appt 6 weeks 09-02-2012 - [facility] 09-02-2012 [facility] ([phone]) PFM PFM 09-02-2012 - [facility] 09-17-2012 [facility] ([phone]) EKG (In office) EKG (In office) 09-02-2012 - [facility] of 09-02-2012 [place] ([id number]) Follow Up Appt 6 weeks Follow Up Appt 6 weeks 09-02-2012 - [facility] of 09-02-2012 [place] ([id number]) PFM PFM 09-02-2012 - [facility] of 09-17-2012 [place] ([id number]) Patient education HEART%20HEALTHY%20DIET [facility] ([id number]) NEGATED: Highlighted row Planned Goals not [facility] Re hab has been ruled out! documented Services-Sharath Rivero ([id number] ) The following information is from the original human readable content Name Dates Details Planned Observations Planned Goals not documented Payers Payer Name Policy Number Location [facility] [employer] [id number] [facility] ([id number]) [id number] [facility] ([id number]) [id number] [facility] ([id number]) [id number] [facility] ([id number]) The following information is from the original human readable contentNo Payer Records FoundNo Payer Records FoundNo Payer Records Found Social History Type Social History Description Date Locat ion Assertion Tobacco smoking consumption unknown [facility] ([facility] ([id number] ) The following information is from the original human readable contentNo Social History Records FoundNo Social History Records FoundNo Social History Records FoundNo Social History Records FoundNo Social History Records Found Functional Status Status Assessment Result Location NEGATED: Highlighted Functional status health Rehab rowFunctional performance issues are not documented Services -Fransisca Rivero ([id number]) Mental Status Status Assessment Result Location NEGATED: Highlighted Cognitive status health Rehab Servic es-[facility] rowCognitive function issues are not documented Mat ([id number] [phone]) [Interpretation] Summary Purpose Family History No Family History Records FoundNo Family History Records FoundNo Family History Records Found Advance Directives No Advanced Directives Records FoundNo Advanced Directives Records FoundNo Advanced Directives Records Found Additional Source Comments FOR RECORDS PERTAINING TO PATIENTS WHO ARE OR HAVE BEEN ENROLLED IN A CHEMICAL DEPENDENCY/SUBSTANCE ABUSE PROGRAM, SOME INFORMATION MAY BE OMITTED. This clinical summary was aggregated from multiple sources. Caution should be exercised in using it in the provision of clinical care. This summary normalizes information from multiple sources, and as a consequence, information in this document may materially changethe coding, format and clinical context of patient data. In addition, data may be omittedin some cases. CLINICAL DECISIONS SHOULD BE BASED ON THE PRIMARY CLINICAL RECORDS. [facility] provides no warranty or guarantee of the accuracy or completeness of information in this document. UNRECOGNIZED CONTENT PROVIDED BELOW FOR UNRECOGNIZED SECTION No Status Records FoundNo Status Records FoundNo Status Records Found UNRECOGNIZED CONTENT PROVIDED BELOW FOR UNRECOGNIZED SECTION INFORMATION SOURCE DATE CREATED AUTHOR AUTHOR'S ORGANIZATIO N 11/02/2018 [facility] DATE CREATED AUTHOR AUTHOR'S ORGANIZATIO N 04/27/2020 [facility] DATE CREATED AUTHOR AUTHOR'S ORGANIZATIO N 05/15/2020 [facility]
--- OUTSIDE RECORDS SUMMARY | 2020-05-16 08:02 | XMS RPT_ITS | CCD ---
:1950 External Reference #:[id number] Author Organization [facility] Care Team Providers Name Role Phone Shelton DECORATIVE ENGRAVER APPRENTICE, S Unavailable Dossi DC, B Unavailable DeFinis, Y Unavailable Unavailable Roof SILK TOP HAT BODY MAKER, H Unavailable Mary RN, A Unavailable Unavailable RODRIGUEZ Mcgee, M Unavailable Unavailable Champion AUTOMATED CUTTING MACHINE OPERATOR, Sierra Unavailable Unavailable Champion AUTOMATED CUTTING MACHINE OPERATOR, Sierra Unavailable Unavailable Nadja Lee Unavailable Unavailable [...] - [facility] non-responder, Critical Chiropractic needs brilinta (37712) metoprolol brochospasm Severe, Severe 09-09-2016 - [facility] [place] (446 91) metoprolol brochospasm Critical, 09-09-2016 - [facility] Critical [facility] [place] (446 91) sulfaSALAzine rash Moderate, 08-25-2012 - Pulmonary Medi cine Moderate of [place] (446 91) Sulfonamides Critical, 08-25-2012 - [facility] (Antibiotic) [facility] [place] (446 91) Medications Medication Name Sig Date Prescriber Location albuterol ALBUTEROL SULFATE 06-03-2017 Yaahalina Champion [facility] (2.5 MG/3ML) 0.083% AUTOMATED CUTTING MACHINE OPERATOR of [place] (87525) NEBU 1 ampule inhaled every 4 hours PRN shortness of breath asthma J45.909 ALBUTEROL SULFATE [id number] Kathie Shelton CNP aspirin ASPIRIN 81 MG TABS 09-02-2012 [facility] tablet by mouth Chiropra ctic (70890) daily ASPIRIN [id number] Paresh Braswell MD ASPIRIN 81 MG TABS One tablet by mouth 09-02-2012 [facility] Chiropractic (77450) daily ASPIRIN [id number] Paresh Braswell MD ASPIRIN EC 81 MG TBEC One tablet by 09-02-2012 [facility] Chiropractic (53072) mouth daily ASPIRIN [id number] Sarah Mixon RN atorvastatin LIPITOR 20 MG TABS 1/2 tablet 07-08-2013 [facility] by mouth daily (4 4691) ATORVASTATIN CALCIUM [id number] Paresh Braswell MD LIPITOR 20 MG TABS One tablet by mouth 09-02-2012 [facility]rop[facility]ic (99434) daily ATORVASTATIN CALCIUM [id number] Paresh Braswell MD Budesonide BUDESONIDE 0.5 MG/2ML 06-03-2017 Yaa Champion [facility] SUSP 1 INH twice daily AUTOMATED CUTTING MACHINE OPERATOR (4469 1) asthma J45.909 BUDESONIDE [id number] Kathie Shelton CNP PULMICORT FLEXHALER 180 12-31-2016 - 06-03-2017 [facility] MCG/ACT AEPB INH 2 puffs (17849) twice daily BUDESONIDE [id number] Anu Dupont PULMICORT FLEXHALER 180 12-31-2016 Yaa Champion [facility] MCG/ACT AEPB INH 2 puffs AUTOMATED CUTTING MACHINE OPERATOR (03022) twice daily BUDESONIDE [id number] Kathie Shelton CNP PULMICORT FLEXHALER 180 12-31-2016 Yaa Champion [facility] MCG/ACT AEPB INH 2 puffs AUTOMATED CUTTING MACHINE OPERATOR (40963) twice daily BUDESONIDE [id number] Kathie Shelton [facility] PULMICORT FLEXHALER 180 12-31-2016 Yaa Champion [facility] MCG/ACT AEPB INH 2 puffs AUTOMATED CUTTING MACHINE OPERATOR (71938) twice daily BUDESONIDE [id number] Kathie Shelton [facility] PULMICORT FLEXHALER 180 12-31-2016 Yaadontrell Champion [facility] MCG/ACT AEPB INH 2 puffs AUTOMATED CUTTING MACHINE OPERATOR (63301) twice daily BUDESONIDE [id number] Kathie Shelton [facility] PULMICORT FLEXHALER 180 12-31-2016 Yaadontrell Araizaach [facility] MCG/ACT AEPB INH 2 puffs AUTOMATED CUTTING MACHINE OPERATOR (80852) twice daily BUDESONIDE [id number] Kathie Shelton [facility] PULMICORT FLEXHALER 180 12-31-2016 Yaadontrell Araizaach [facility] MCG/ACT AEPB INH 2 puffs AUTOMATED CUTTING MACHINE OPERATOR (63857) twice daily BUDESONIDE [id number] Kathie Shelton [facility] PULMICORT FLEXHALER 180 12-31-2016 Yaadontrell Champion [facility] MCG/ACT AEPB INH 2 puffs AUTOMATED CUTTING MACHINE OPERATOR (79760) twice daily BUDESONIDE [id number] Kathie Shelton [facility] PULMICORT FLEXHALER 180 12-31-2016 Yaadontrell Champion [facility] MCG/ACT AEPB INH 2 puffs AUTOMATED CUTTING MACHINE OPERATOR (11713) twice daily BUDESONIDE [id number] Kathie Shelton [facility] PULMICORT FLEXHALER 180 12-31-2016 Yaadontrell Araizaach [facility] MCG/ACT AEPB INH 2 puffs AUTOMATED CUTTING MACHINE OPERATOR (03324) twice daily BUDESONIDE [id number] Kathie Shelton [facility] PULMICORT FLEXHALER 180 12-31-2016 Yaadontrell Araizaach [facility] MCG/ACT AEPB INH 2 puffs AUTOMATED CUTTING MACHINE OPERATOR (14060) twice daily BUDESONIDE [id number] Kathie Shelton [facility] PULMICORT FLEXHALER 180 12-31-2016 Yaa Champion [facility] [facility] MCG/ACT AEPB INH 2 puffs AUTOMATED CUTTING MACHINE OPERATOR (06544) twice daily BUDESONIDE [id number] Kathie Garvin Shelton DECORATIVE ENGRAVER APPRENTICE PULMICORT FLEXHALER 180 12-31-2016 Yaa Champion [facility] [facility] MCG/ACT AEPB INH 2 puffs AUTOMATED CUTTING MACHINE OPERATOR (26367) twice daily BUDESONIDE [id number] Kathie S Nikita DECORATIVE ENGRAVER APPRENTICE PULMICORT FLEXHALER 180 2016 - 12-03-2016 [facility] MCG/ACT AEPB 2 puffs INH (84005) BID BUDESONIDE [id number] Bladimir Wilson DO PULMICORT FLEXHALER 180 2016 - 12-03-2016 [facility] MCG/ACT AEPB 2 puffs INH (92164) BID BUDESONIDE [id number] Bladimirnona Wilson DO PULMICORT FLEXHALER 180 2016 Bladimirnona Wilson DO [facility] MCG/ACT AEPB 2 puffs INH (12227) BID BUDESONIDE [id number] Bladimirnona Wilson DO PULMICORT FLEXHALER 180 2016 - 12-03-2016 [facility] MCG/ACT AEPB 2 puffs INH (28232) BID BUDESONIDE [id number] Bladimirnona Wilson DO PULMICORT FLEXHALER 180 2016 Bladimirnona Wilson DO [facility] MCG/ACT AEPB 2 puffs INH (52370) BID BUDESONIDE [id number] Bladimirnona Wilson DO PULMICORT FLEXHALER 180 2016 - 12-03-2016 [facility] MCG/ACT AEPB 2 puffs INH (34785) BID BUDESONIDE [id number] Bladimirnona Wilson DO PULMICORT FLEXHALER 180 2016 Bladimirnona Wilson DO [facility] MCG/ACT AEPB 2 puffs INH (71179) BID BUDESONIDE [id number] Bladimirnona Wilson DO PULMICORT FLEXHALER 180 2016 Bladimirnona Wilson DO [facility] MCG/ACT AEPB 2 puffs INH (43305) BID BUDESONIDE [id number] Bladimirnona Wilson DO PULMICORT FLEXHALER 180 2016 - 12-03-2016 [facility] MCG/ACT AEPB 2 puffs INH (19456) BID BUDESONIDE [id number] Bladimirnona Wilson DO PULMICORT FLEXHALER 180 2016 Bladimirnona Wilson DO [facility] MCG/ACT AEPB 2 puffs INH (25539) BID BUDESONIDE [id number] Bladimirnona Wilson DO PULMICORT FLEXHALER 180 2016 - 12-03-2016 [facility] MCG/ACT AEPB 2 puffs INH (42570) BID BUDESONIDE [id number] Bladimirnona Wilson DO PULMICORT FLEXHALER 180 2016 Bladimirnona Wilson DO [facility] MCG/ACT AEPB 2 puffs INH (06404) BID BUDESONIDE [id number] Bladimirnona Wilson DO PULMICORT FLEXHALER 180 2016 - 12-03-2016 [facility] MCG/ACT AEPB 2 puffs INH (76393) BID BUDESONIDE [id number] Bladimirnona Wilson DO PULMICORT FLEXHALER 180 2016 Bladimirnona Wilson DO [facility] MCG/ACT AEPB 2 puffs INH (46166) BID BUDESONIDE [id number] Bladimirnona Wilson DO PULMICORT FLEXHALER 180 2016 - 12-03-2016 [facility] MCG/ACT AEPB 2 puffs INH (11479) BID BUDESONIDE [id number] Bladimirnona Wilson DO PULMICORT FLEXHALER 180 2016 - 12-03-2016 [facility] MCG/ACT AEPB 2 puffs INH (21684) BID BUDESONIDE [id number] Bladimirnona Wilson DO PULMICORT FLEXHALER 180 2016 Bladimirnona Wilson DO [facility] MCG/ACT AEPB 2 puffs INH (41213) BID BUDESONIDE [id number] Bladimirnona Wilson DO PULMICORT FLEXHALER 180 2016 Bladimirnona Wilson DO [facility] MCG/ACT AEPB 2 puffs INH (92989) BID BUDESONIDE [id number] Bladimirnona Wilson DO PULMICORT FLEXHALER 180 2016 - 12-03-2016 [place] [facility] MCG/ACT AEPB 2 puffs INH (73828) BID BUDESONIDE [id number] Bladimirnona Wilson DO PULMICORT FLEXHALER 180 2016 Bladimirnona Wilson DO [facility] MCG/ACT AEPB 2 puffs INH (06045) BID BUDESONIDE [id number] Bladimirnona Wilson DO PULMICORT FLEXHALER 180 2016 - 12-03-2016 [facility] MCG/ACT AEPB 2 puffs INH (53167) BID BUDESONIDE [id number] Bladimirnona Wilson DO PULMICORT FLEXHALER 180 2016 Bladimirnona Wilson DO [facility] MCG/ACT AEPB 2 puffs INH (89325) BID BUDESONIDE [id number] Bladimirnona Wilson DO PULMICORT FLEXHALER 180 2016 - 12-03-2016 [facility] MCG/ACT AEPB 2 puffs INH (26816) BID BUDESONIDE [id number] Bladimirnona Wilson DO PULMICORT FLEXHALER 180 2016 - 12-03-2016 [facility] MCG/ACT AEPB 2 puffs INH (14897) BID BUDESONIDE [id number] Bladimirnona Wilson DO PULMICORT FLEXHALER 180 2016 Bladimirnona Wilson DO [facility] MCG/ACT AEPB 2 puffs INH (87331) BID BUDESONIDE [id number] Bladimirnona Wilson DO PULMICORT FLEXHALER 180 2016 - 12-03-2016 [facility] MCG/ACT AEPB 2 puffs INH (37230) BID BUDESONIDE [id number] Bladimirnona Wilson DO PULMICORT FLEXHALER 180 2016 Bladimirnona Wilson DO [facility] MCG/ACT AEPB 2 puffs INH (59023) BID BUDESONIDE [id number] Bladimirnona Wilson DO PULMICORT FLEXHALER 180 2016 - 12-03-2016 [facility] MCG/ACT AEPB 2 puffs INH (87084) BID BUDESONIDE [id number] Bladimirnona Wilson DO PULMICORT FLEXHALER 180 2016 Bladimirnona Wilson DO [facility] MCG/ACT AEPB 2 puffs INH (37975) BID BUDESONIDE [id number] Bladimirnona Wilson DO PULMICORT FLEXHALER 180 2016 - 12-03-2016 [facility] MCG/ACT AEPB 2 puffs INH (37235) BID BUDESONIDE [id number] Bladimirnona Wilson DO PULMICORT FLEXHALER 180 2016 Bladimirnona Wilson DO [facility] MCG/ACT AEPB 2 puffs INH (35725) BID BUDESONIDE [id number] Bladimirnona Wilson DO PULMICORT FLEXHALER 180 2016 - 12-03-2016 [facility] MCG/ACT AEPB 2 puffs INH (34672) BID BUDESONIDE [id number] Bladimirnona Wilson DO PULMICORT FLEXHALER 180 2016 Bladimirnona Wilson DO [facility] MCG/ACT AEPB 2 puffs INH (68599) BID BUDESONIDE [id number] Bladimir Wilson DO PULMICORT FLEXHALER 180 2016 - 12-03-2016 [facility] MCG/ACT AEPB 2 puffs INH (04411) BID BUDESONIDE [id number] Bladimir Wilson DO PULMICORT FLEXHALER 180 2016 Bladimir Wilson DO [facility] MCG/ACT AEPB 2 puffs INH (60533) BID BUDESONIDE [id number] Bladimir Wilson DO cephalexin KEFLEX 500 MG CAPS One 12-23-2012 - 12-30-2012 [facility] tablet by mouth three (21876 ) times daily CEPHALEXIN [id number] Olga Price MD KEFLEX 500 MG CAPS One tablet 12-23-2012 - 12-30-2012 [facility] by mouth three times daily (4469 1) CEPHALEXIN [id number] Olga Price MD clopidogrel PLAVIX 75 MG TABS 07-30-2013 - [facility] One tablet by mouth 07-24-2016 (59848) daily x 30 days CLOPIDOGREL BISULFATE [id number] Paresh Braswell MD coenzyme q10 COQ-10 100 MG CAPS 08-25-2012 - [facility] tablet by mouth 05-10-2013 Chiropra ctic daily (05174) COENZYME Q10 [id number] Mirna Valles RN dilTIAZem CARDIZEM CD 120 MG 09-10-2016 Amisha Zavaleta Pulmonary Medicine [id number] One [place] FRIAS [facility] [place] (44 691) tablet by mouth daily DILTIAZEM HCL COATED BEADS [id number] MD SHABANA FarrellZEM CD 120 MG 09-10-2016 Amisha Rand RN Pulmona ry Medicine of [id number]-GUE One tablet by [place] (49227) mouth daily DILTIAZEM HCL COATED BEADS [id number] MD SHABANA FarrellZEM CD 120 MG 09-10-2016 Amisha Rand RN Pulmona ry Medicine of PT87T-MNV One tablet by [place] (51862) mouth daily DILTIAZEM HCL COATED BEADS [id number] MD ADRIENNE Farrell CD 120 MG 09-10-2016 Amisha Rand RN Pulmona ry Medicine of RC64T-ZVL One tablet by [place] (34280) mouth daily DILTIAZEM HCL COATED BEADS [id number] MD ADRIENNE Farrell CD 120 MG 09-10-2016 Amisha Rand RN Pulmona ry Medicine of HK19P-FFC One tablet by [place] (28692) mouth daily DILTIAZEM HCL COATED BEADS 98307254687 MD ADRIENNE Farrell CD 120 MG 09-10-2016 Amisha Rand RN Pulmona ry Medicine of LH70I-PBF One tablet by [place] (57252) mouth daily DILTIAZEM HCL COATED BEADS 54889546170 MD ADRIENNE Farrell CD 120 MG 09-10-2016 Amisha Rand RN Pulmona ry Medicine of [id number]-RDZ One tablet by [place] (37704) mouth daily DILTIAZEM HCL COATED BEADS [id number] MD ADRIENNE Farrell CD 120 MG 09-10-2016 Amisha Rand RN Pulmona ry Medicine of [id number]-QEZ One tablet by [place] (39086) mouth daily DILTIAZEM HCL [place]ATED BEADS [id number] MD ADRIENNE Farrell CD 120 MG 09-10-2016 Amisha Rand RN Pulmona ry Medicine of UQ40J-WZO One tablet by [place] (06771) mouth daily DILTIAZEM HCL [place]ATED BE[place] [id number] MD KODY FarrellM CD 120 MG 09-10-2016 Amisha Rand RN Pulmona ry Medicine of [id number]-PHL One tablet by [place] (79452) mouth daily DILTIAZEM HCL [place]ATED BE[place] [id number] MD ADRIENNE Farrell CD 120 MG 09-10-2016 Amisha Rand RN Pulmona ry Medicine of QC62G-SLJ One tablet by [place] (75148) mouth daily DILTIAZEM HCL [place]ATED BE[place] [id number] MD SHABANA FarrellZEM CD 120 MG 09-10-2016 Amisha Rand RN Pulmona ry Medicine of EE39P-EBM One tablet by [place] (10092) mouth daily DILTIAZEM HCL [place]ATED [place] [id number] MD SHABANA FarrellZEM CD 120 MG 09-10-2016 Amisha Rand RN Pulmona ry Medicine of YO07J-SJR One tablet by [place] (24487) mouth daily DILTIAZEM HCL [place]ATED [place] 77605109937 MD SHABANA FarrellZEM CD 120 MG 09-10-2016 Amisha Rand RN Pulmona ry Medicine of SS47R-FIE One tablet by [place] (97292) mouth daily DILTIAZEM HCL [place]ATED [place] [id number] MD KODY FarrellM CD 120 MG 09-10-2016 Amisha Rand RN Pulmona ry Medicine of GF93A-OBD One tablet by [place] (01570) mouth daily DILTIAZEM HCL [place]ATED [place] [id number] MD SHABANA FarrellZEM CD 120 MG 09-10-2016 Amisha Rand RN Pulmona ry Medicine of EV08Q-QKS One tablet by [place] (94713) mouth daily DILTIAZEM HCL [place]ATED [place] 42598878520 MD SHABANA FarrellZEM CD 120 MG 09-10-2016 Amisha Rand RN Pulmona ry Medicine of UP25I-JSM One tablet by [place] (10555) mouth daily DILTIAZEM HCL [place]ATED [place] 57340445137 MD SHABANA FarrellZEM CD 120 MG 09-10-2016 Amisha Rand RN Pulmona ry Medicine of LH18I-ZTG One tablet by [place] (79707) mouth daily DILTIAZEM HCL [place]ATED [place] [id number] Syd Hollingsworth MD fluticasone [place] [facility] 220 MCG/ACT 01-30-201209-25-2016 [facility] AERO INH 2 puffs twice (4469 1) daily FLUTICASONE PROPIONATE HFA [id number] Bladimir Wilson DO [place] [facility] 220 MCG/ACT AERO 09-02-2012 [facility] as directed (34288) FLUTICASONE PROPIONATE HFA [id number] Sarah Mixon RN [place] [facility] 220 MCG/ACT AERO 09-02-2012 [facility] as directed (59172) FLUTICASONE PROPIONATE HFA [id number] Sarah Mixon RN [place] [facility] 220 MCG/ACT AERO 09-02-2012 [facility] INH 2 puffs twice daily (95826) FLUTICASONE PROPIONATE HFA [id number] Yaa Champion LPN [place] [facility] 220 MCG/ACT AERO 09-02-09-25-2016 [facility]ropractic INH 2 puffs twice daily (89256) FLUTICASONE PROPIONATE HFA [id number] Bladimir Wilson DO [place] [facility] 220 MCG/ACT AERO 09-02-2012 [facility] as directed (36159) FLUTICASONE PROPIONATE HFA [id number] Sarah Mixon RN [place] [facility] 220 MCG/ACT AERO 09-02-2012 [facility] INH 2 puffs twice daily (55239) FLUTICASONE PROPIONATE HFA [id number] Yaa Champion LPN [place] [facility] 220 MCG/ACT AERO 09-02-201209-25-2016 [facility] INH 2 puffs twice daily (15613) FLUTICASONE PROPIONATE HFA [id number] Bladimir Wilson DO [place] [facility] 220 MCG/ACT AERO 09-02-2012 [facility] as directed (93505) FLUTICASONE PROPIONATE HFA [id number] Saarh Mixon RN [place] [facility] 220 MCG/ACT AERO 09-02-2012 [facility] INH 2 puffs twice daily (93632) FLUTICASONE PROPIONATE HFA [id number] Yaa Champion LPN [place] [facility] 220 MCG/ACT AERO 09-02-201209-25-2016 [facility] INH 2 puffs twice daily (18913) FLUTICASONE PROPIONATE HFA [id number] Bladimir Wilson DO [place] [facility] 220 MCG/ACT AERO 09-02-2012 [facility] as directed (93966) FLUTICASONE PROPIONATE HFA [id number] Sarah Mixon RN [place] [facility] 220 MCG/ACT AERO 09-02-2012 [facility] INH 2 puffs twice daily (07910) FLUTICASONE PROPIONATE HFA [id number] Yaa Champion LPN [place] [facility] 220 MCG/ACT AERO 09-02-201209-25-2016 [facility] INH 2 puffs twice daily (32475) FLUTICASONE PROPIONATE HFA [id number] Bladimir Wilson DO [place] [facility] 220 MCG/ACT AERO 09-02-2012 [facility] as directed (27298) FLUTICASONE PROPIONATE HFA [id number] Sarah Mixon RN [place] [facility] 220 MCG/ACT AERO 09-02-09-25-2016 [facility] INH 2 puffs twice daily (20381) FLUTICASONE PROPIONATE HFA [id number] Bladimir Wilson DO [place] [facility] 220 MCG/ACT AERO 09-02-2012 [facility] INH 2 puffs twice daily (57040) FLUTICASONE PROPIONATE HFA [id number] Yaa Mauroin Champion AUTOMATED CUTTING MACHINE OPERATOR [place] [facility] 220 MCG/ACT AERO 09-02-2012 [facility] as directed (85529) FLUTICASONE PROPIONATE HFA [id number] Sarah Mixon RN [place] [facility] 220 MCG/ACT AERO 09-02-2012 - 2016 [facility] INH 2 puffs twice daily (44152) FLUTICASONE PROPIONATE HFA [id number] Bladimir M Steve DO [place] [facility] 220 MCG/ACT AERO 09-02-2012 [facility] INH 2 puffs twice daily (75679) FLUTICASONE PROPIONATE HFA [id number] Yaa Esquivel Champion AUTOMATED CUTTING MACHINE OPERATOR [place] [facility] 220 MCG/ACT AERO 09-02-2012 [facility] as directed (50019) FLUTICASONE PROPIONATE HFA [id number] Sarah Mixon RN [place] [facility] 220 MCG/ACT AERO 09-02-2012 - 2016 [facility] INH 2 puffs twice daily (63468) FLUTICASONE PROPIONATE HFA [id number] Bladimir M Steve DO [place] [facility] 220 MCG/ACT AERO 09-02-2012 [facility] INH 2 puffs twice daily (77995) FLUTICASONE PROPIONATE HFA [id number] Yaa Esquivel Champion AUTOMATED CUTTING MACHINE OPERATOR [place] [facility] 220 MCG/ACT AERO 09-02-2012 [facility] as directed (99071) FLUTICASONE PROPIONATE HFA [id number] Sarah Mixon RN [place] [facility] 220 MCG/ACT AERO 09-02-2012 [facility] INH 2 puffs twice daily (94215) FLUTICASONE PROPIONATE HFA [id number] Yaa Mauroin Champion AUTOMATED CUTTING MACHINE OPERATOR [place] [facility] 220 MCG/ACT AERO 09-02-2012 - 2016 [facility] INH 2 puffs twice daily (47546) FLUTICASONE PROPIONATE HFA [id number] Bladimir Wilson DO [place] [facility] 220 MCG/ACT AERO 09-02-09-25-2016 [facility] INH 2 puffs twice daily (77299) FLUTICASONE PROPIONATE HFA [id number] Bladimir Wilson DO [place] [facility] 220 MCG/ACT AERO 09-02-2012 [facility] INH 2 puffs twice daily (19874) FLUTICASONE PROPIONATE HFA [id number] Yaa Champion AUTOMATED CUTTING MACHINE OPERATOR [place] [facility] 220 MCG/ACT AERO 09-02-2012 [facility] as directed (06514) FLUTICASONE PROPIONATE HFA [id number] Sarah Mixon RN [place] [facility] 220 MCG/ACT AERO 09-02-2012 [facility] as directed (31191) FLUTICASONE PROPIONATE HFA [id number] Sarah Mixon RN [place] [facility] 220 MCG/ACT AERO 09-02-2012 [facility] INH 2 puffs twice daily (30930) FLUTICASONE PROPIONATE HFA [id number] Yaa Champion AUTOMATED CUTTING MACHINE OPERATOR [place] [facility] 220 MCG/ACT AERO 09-02-201209-25-2016 [facility] INH 2 puffs twice daily (03293) FLUTICASONE PROPIONATE HFA [id number] Bladimir M Steve DO [place] [facility] 220 MCG/ACT AERO 09-02-2012 [facility] as directed (17056) FLUTICASONE PROPIONATE HFA [id number] Sarah Mixon RN [place] [facility] 220 MCG/ACT AERO 09-02-2012 [facility] INH 2 puffs twice daily (36065) FLUTICASONE PROPIONATE HFA [id number] Yaa Champion LPN [place] [facility] 220 MCG/ACT AERO 09-02-2012 - 2016 [facility] INH 2 puffs twice daily (78596) FLUTICASONE PROPIONATE HFA [id number] Bladimir Wilson DO [place] [facility] 220 MCG/ACT AERO 09-02-2012 - 2016 [facility] INH 2 puffs twice daily (21650) FLUTICASONE PROPIONATE HFA [id number] Bladimir Wilson DO [place] [facility] 220 MCG/ACT AERO 09-02-2012 [facility] twice daily (31296) FLUTICASONE PROPIONATE HFA [id number] Yaa Champion LPN [place] [facility] 220 MCG/ACT AERO 09-02-2012 [facility] directed (41492) FLUTICASONE PROPIONATE HFA [id number] Sarah Mixon RN [place] [facility] 220 MCG/ACT AERO 09-02-2012 [facility] 2 puffs twice daily (71797) FLUTICASONE PROPIONATE HFA [id number] Yaa Champion LPN [place] [facility] 220 MCG/ACT AERO 09-02-2012 - 2016 [facility] INH 2 puffs twice daily (20472) FLUTICASONE PROPIONATE HFA [id number] Bladimir Wilson DO [place] [facility] 220 MCG/ACT AERO 09-02-2012 [facility] as directed (82042) FLUTICASONE PROPIONATE HFA [id number] Sarah Mixon RN [place] [facility] 220 MCG/ACT AERO 09-02-2012 [facility] as directed (34111) FLUTICASONE PROPIONATE HFA [id number] Sarah Mixon RN [place] [facility] 220 MCG/ACT AERO 09-02-2012 [facility] INH 2 puffs twice daily (87775) FLUTICASONE PROPIONATE HFA [id number] Yaa Champion LPN [place] [facility] 220 MCG/ACT AERO 09-02-2012 - 2016 [facility] INH 2 puffs twice daily (19462) FLUTICASONE PROPIONATE HFA [id number] Bladimir Wilson DO [place] [facility] 220 MCG/ACT AERO 09-02-2012 - 2016 [facility] INH 2 puffs twice daily (76072) FLUTICASONE PROPIONATE HFA [id number] Bladimir Wilson DO [place] [facility] 220 MCG/ACT AERO 09-02-2012 [facility] INH 2 puffs twice daily (69747) FLUTICASONE PROPIONATE HFA [id number] Yaa Champion LPN [place] [facility] 220 MCG/ACT AERO 09-02-2012 [facility] as directed (45314) FLUTICASONE PROPIONATE HFA [id number] Sarah Mixon RN [place] [facility] 220 MCG/ACT AERO 09-02-2012 [facility] INH 2 puffs twice daily (56051) FLUTICASONE PROPIONATE HFA [id number] Yaa Champion LPN [place] [facility] 220 MCG/ACT AERO 09-02-2012 [facility] as directed (13228) FLUTICASONE PROPIONATE HFA [id number] Sarah Mixon RN [place] [facility]FA 220 MCG/ACT AERO 09-02-201209-25-2016 [facility] INH 2 puffs twice daily (98104) FLUTICASONE PROPIONATE HFA [id number] Bladimir Wilson DO [place] [facility]FA 220 MCG/ACT AERO 09-02-2012 [facility] INH 2 puffs twice daily (22386) FLUTICASONE PROPIONATE HFA [id number] Yaa Sierra Champion AUTOMATED CUTTING MACHINE OPERATOR [place] [facility] 220 MCG/ACT AERO 09-02-2012 - --2016 [facility] INH 2 puffs twice daily (91910) FLUTICASONE PROPIONATE HFA [id number] Bladimir Wilson DO [place] [facility] 220 MCG/ACT AERO 09-02-2012 [facility] as directed (33461) FLUTICASONE PROPIONATE HFA [id number] Sarah Mixon, RN hydroxychloroquine PLAQUENIL 200 MG TABS 12-03-2016 [facility] tablet by mouth Medicine of twice daily [place] HYDROXYCHLOROQUINE (90908) SULFATE [id number] Yaa Esquivel Champion [employer]PERATOR levoFLOXacin LEVAQUIN 750 MG TABS 12-28-2012 - Olga Naylor Signs Pulmo nary one by mouth daily 01-04-2013 [facility] [place] LEVOFLOXACIN ([id number]) [id number] Olga Naylor Signs methotrexate METHOTREXATE 2.5 MG 06-03-2017 Pulmonar y TABS 5 tablets once a [facility] ne of week [place] METHOTREXATE SODIUM (56347) [id number] Anu Dupont Metoprolol METOPROLOL TARTRATE 25 07-30-2012 - Paresh Villagran [place] [facility] TABS One tablet by 07-24-2016 [facility] ([id number]) mouth twice daily METOPROLOL TARTRATE [id number] Paresh Braswell MD METOPROLOL TARTRATE 25 MG TABS 09-02-2012 - 10-26-2012 [facility] ([id number]) 1/2 tablet by mouth daily METOPROLOL TARTRATE [id number] Paresh Braswell MD MULTIPLE VITAMIN MULTIVITAMINS TABS One 08-25-2012 [facility] tablet by mouth daily (86793 ) MULTIPLE VITAMIN [id number] Mirna Valles RN MULTIVITAMINS TABS One tablet 08-25-201205-10-2013 [facility] by mouth daily (23764 ) MULTIPLE VITAMIN 92654573275 Paresh Braswell MD MULTIVITAMINS TABS One tablet 08-25-201205-10-2013 [facility] by mouth daily (04570 ) MULTIPLE VITAMIN 57799235145 Paresh Braswell MD MULTIVITAMINS TABS One tablet 08-25-2012 [facility] by mouth daily (00317 ) MULTIPLE VITAMIN 93799094871 Mirna Valles RN MULTIVITAMINS TABS One tablet 08-25-201205-10-2013 [facility] by mouth daily (35046 ) MULTIPLE VITAMIN 68024258980 Paresh Braswell MD MULTIVITAMINS TABS One tablet 08-25-2012 [facility] by mouth daily (88043 ) MULTIPLE VITAMIN 03547924758 Mirna Valles RN MULTIVITAMINS TABS One tablet 08-25-201205-10-2013 [facility] by mouth daily (06973 ) MULTIPLE VITAMIN 28766254256 Paresh Braswell MD MULTIVITAMINS TABS One tablet 08-25-2012 [facility] by mouth daily (10433 ) MULTIPLE VITAMIN 90996712746 Mirna Valles RN MULTIVITAMINS TABS One tablet 08-25-2012 [facility] by mouth daily (83690 ) MULTIPLE VITAMIN 53264393844 Mirna Valles RN MULTIVITAMINS TABS One tablet 08-25-201205-10-2013 [facility] by mouth daily (18422 ) MULTIPLE VITAMIN 36816063963 Paresh Braswell MD MULTIVITAMINS TABS One tablet 08-25-2012 [facility] by mouth daily (41381 ) MULTIPLE VITAMIN 15657743388 Mirna Valles RN MULTIVITAMINS TABS One tablet 08-25-2012 - 05-10-2013 [facility] by mouth daily (04789 ) MULTIPLE VITAMIN 16153553572 Paresh Braswell MD MULTIVITAMINS TABS One tablet 08-25-2012 [facility] by mouth daily (70086 ) MULTIPLE VITAMIN 45652300173 Mirna Valles RN MULTIVITAMINS TABS One tablet 08-25-201205-10-2013 [facility] by mouth daily (92789 ) MULTIPLE VITAMIN 25734044822 Paresh Braswell MD MULTIVITAMINS TABS One tablet 08-25-2012 [facility] by mouth daily (52113 ) MULTIPLE VITAMIN 43397003863 Mirna Valles RN MULTIVITAMINS TABS One tablet 08-25-201205-10-2013 [facility] by mouth daily (45754 ) MULTIPLE VITAMIN 89161983214 Paresh Braswell MD MULTIVITAMINS TABS One tablet 08-25-201205-10-2013 [facility] by mouth daily (36882 ) MULTIPLE VITAMIN 16728785675 Paresh Braswell MD MULTIVITAMINS TABS One tablet 08-25-2012 [facility] by mouth daily (77208 ) MULTIPLE VITAMIN 36527219492 Mirna Valles RN MULTIVITAMINS TABS One tablet 08-25-201205-10-2013 [facility] by mouth daily (01434 ) MULTIPLE VITAMIN 71803516270 Paresh Braswell MD MULTIVITAMINS TABS One tablet 08-25-2012 [facility] by mouth daily (30742 ) MULTIPLE VITAMIN 46506330085 Mirna Valles RN MULTIVITAMINS TABS One tablet 08-25-201205-10-2013 [facility] by mouth daily (43536 ) MULTIPLE VITAMIN 75597898359 Paresh Braswell MD MULTIVITAMINS TABS One tablet 08-25-2012 [facility] by mouth daily (39380 ) MULTIPLE VITAMIN 93321351017 Mirna Valles RN MULTIVITAMINS TABS One tablet 08-25-201205-10-2013 [facility] by mouth daily (16746 ) MULTIPLE VITAMIN 13536217319 Paresh Braswell MD MULTIVITAMINS TABS One tablet 08-25-2012 [facility] by mouth daily (16045 ) MULTIPLE VITAMIN 82266937176 Mirna Valles RN MULTIVITAMINS TABS One tablet 08-25-2012 [facility] by mouth daily (44089 ) MULTIPLE VITAMIN 88417143252 Mirna Valles RN MULTIVITAMINS TABS One tablet 08-25-201205-10-2013 [facility] by mouth daily (11982 ) MULTIPLE VITAMIN 54502720287 Paresh Braswell MD MULTIVITAMINS TABS One tablet 08-25-201205-10-2013 [facility] by mouth daily (75400 ) MULTIPLE VITAMIN 79633784314 Paresh Braswell MD MULTIVITAMINS TABS One tablet 08-25-2012 [facility] by mouth daily (83859 ) MULTIPLE VITAMIN 41662351778 Mirna Valles RN MULTIVITAMINS TABS One tablet 08-25-201205-10-2013 [facility] by mouth daily (94895 ) MULTIPLE VITAMIN 67966590819 Paresh Braswell MD MULTIVITAMINS TABS One tablet 08-25-2012 [facility] mouth daily (79632 ) MULTIPLE VITAMIN 69119274935 Mirna Valles RN MULTIVITAMINS TABS One tablet 08-25-2012 - 05-10-2013 [facility] by mouth daily (60588 ) MULTIPLE VITAMIN 55099140971 Paresh Braswell MD MULTIVITAMINS TABS One tablet 08-25-2012 [facility] mouth daily (19305 ) MULTIPLE VITAMIN 70960400821 Mirna Valles RN MULTIVITAMINS TABS One tablet 08-25-2012 - 05-10-2013 [facility] by mouth daily (04617 ) MULTIPLE VITAMIN 57397905996 Paresh Braswell MD MULTIVITAMINS TABS One tablet 08-25-2012 [facility] by mouth daily (52674 ) MULTIPLE VITAMIN 18473872387 Mirna Valles RN MULTIVITAMINS TABS One tablet 08-25-2012 [facility] by mouth daily (37534 ) MULTIPLE VITAMIN 69912911857 Mirna Valles RN MULTIVITAMINS TABS One tablet 08-25-2012 - 05-10-2013 [facility] by mouth daily (44924 ) MULTIPLE VITAMIN 19030922707 Paresh Braswell MD MULTIVITAMINS TABS One tablet 08-25-2012 [facility] mouth daily (33681 ) MULTIPLE VITAMIN 34458150407 Mirna Valles RN MULTIVITAMINS TABS One tablet 08-25-201205-10-2013 [facility] by mouth daily (25248 ) MULTIPLE VITAMIN 29754289790 Paresh Braswell MD MULTIVITAMINS TABS One tablet 08-25-201205-10-2013 [facility] by mouth daily (03016 ) MULTIPLE VITAMIN 29216214883 Paresh Braswell MD MULTIVITAMINS TABS One tablet 08-25-2012 [facility] by mouth daily (15505 ) MULTIPLE VITAMIN 60548341270 Mirna Valles RN MULTIVITAMINS TABS One tablet 08-25-2012 [facility] by mouth daily (68626 ) MULTIPLE VITAMIN 38965281255 Mirna Valles RN MULTIVITAMINS TABS One tablet 08-25-2012 - 05-10-2013 [facility] by mouth daily (26998 ) MULTIPLE VITAMIN 94467666458 Paresh Braswell MD MULTIVITAMINS TABS One tablet 08-25-2012 [facility] by mouth daily (06257 ) MULTIPLE VITAMIN 98526163664 Mirna Valles RN MULTIVITAMINS TABS One tablet 08-25-2012 - 05-10-2013 [facility] by mouth daily (13071 ) MULTIPLE VITAMIN 19141854413 Paresh Braswell MD MULTIPLE VITAMIN MULTIVITAMINS TABS One 08-25-2012 - [facility] by mouth daily 05-10-2013 [facility] (73529) MULTIPLE VITAMIN 01377729531 Paresh Braswell MD MULTIVITAMINS TABS One tablet 08-25-2012 [facility] by mouth daily (69343 ) MULTIPLE VITAMIN 00819497016 Mirna Valles RN MULTIVITAMINS TABS One tablet 08-25-2012 - 05-10-2013 [facility] by mouth daily (26792 ) MULTIPLE VITAMIN 45624520958 Paresh Braswell MD MULTIVITAMINS TABS One tablet 08-25-2012 [facility] by mouth daily (02133 ) MULTIPLE VITAMIN 19229950877 Mirna Valles RN MULTIVITAMINS TABS One tablet 08-25-2012 [facility] by mouth daily (95796 ) MULTIPLE VITAMIN 30188084863 Mirna Valles RN MULTIVITAMINS TABS One tablet 08-25-2012 - 05-10-2013 [facility] by mouth daily (89704 ) MULTIPLE VITAMIN 60155386216 Paresh Braswell MD MULTIVITAMINS TABS One tablet 08-25-2012 [facility] by mouth daily (63231 ) MULTIPLE VITAMIN 07726480871 Mirna Valles RN MULTIVITAMINS TABS One tablet 08-25-201205-10-2013 [facility] by mouth daily (41754 ) MULTIPLE VITAMIN 18655053929 Paresh Braswell MD MULTIVITAMINS TABS One tablet 08-25-2012 [facility] by mouth daily (18048 ) MULTIPLE VITAMIN 18407264152 Mirna Valles RN MULTIVITAMINS TABS One tablet 08-25-201205-10-2013 [facility] by mouth daily (88518 ) MULTIPLE VITAMIN 44090888731 Paresh Braswell MD MULTIVITAMINS TABS One tablet 08-25-201205-10-2013 [facility] by mouth daily (40375 ) MULTIPLE VITAMIN 74701693595 Paresh Braswell MD MULTIVITAMINS TABS One tablet 08-25-2012 [facility] by mouth daily (43341 ) MULTIPLE VITAMIN 30094178672 Mirna Valles RN MULTIVITAMINS TABS One tablet 08-25-201205-10-2013 [facility] by mouth daily (26923 ) MULTIPLE VITAMIN 21101823095 Paresh Braswell MD MULTIVITAMINS TABS One tablet 08-25-2012 [facility] by mouth daily (52307 ) MULTIPLE VITAMIN 53710392411 Mirna Valles RN MULTIVITAMINS TABS One tablet 08-25-2012 [facility] by mouth daily (14369 ) MULTIPLE VITAMIN 42487035156 Mirna Valles RN MULTIVITAMINS TABS One tablet 08-25-201205-10-2013 [facility] by mouth daily (70505 ) MULTIPLE VITAMIN 27479756930 Paresh Braswell MD MULTIVITAMINS TABS One tablet 08-25-2012 [facility] by mouth daily (65315 ) MULTIPLE VITAMIN 39658085027 Mirna Valles RN MULTIVITAMINS TABS One tablet 08-25-2012 - 05-10-2013 [facility] by mouth daily (56812 ) MULTIPLE VITAMIN 31708358341 Paresh Braswell MD MULTIVITAMINS TABS One tablet 08-25-2012 [facility] by mouth daily (38922 ) MULTIPLE VITAMIN 21556970328 Mirna Valles RN MULTIVITAMINS TABS One tablet 08-25-2012 - 05-10-2013 [facility] by mouth daily (04590 ) MULTIPLE VITAMIN 54566909007 Paresh Braswell MD MULTIVITAMINS TABS One tablet 08-25-2012 [facility] by mouth daily (25065 ) MULTIPLE VITAMIN 80995679395 Mirna Valles RN MULTIVITAMINS TABS One tablet 08-25-201205-10-2013 [facility] by mouth daily (98874 ) MULTIPLE VITAMIN 60755930529 Paresh Braswell MD MULTIVITAMINS TABS One tablet 08-25-201205-10-2013 [facility] by mouth daily (57341 ) MULTIPLE VITAMIN 37686048509 Paresh Braswell MD MULTIVITAMINS TABS One tablet 08-25-2012 [facility] by mouth daily (08469 ) MULTIPLE VITAMIN 93720491416 Mirna Valles RN MULTIVITAMINS TABS One tablet 08-25-2012 [facility] by mouth daily (97603 ) MULTIPLE VITAMIN 88602716953 Mirna Valles RN MULTIVITAMINS TABS One tablet 08-25-201205-10-2013 [facility] by mouth daily (70263 ) MULTIPLE VITAMIN 39901704711 Paresh Braswell MD MULTIVITAMINS TABS One tablet 08-25-2012 [facility] by mouth daily (28862 ) MULTIPLE VITAMIN 70651894049 Mirna Valles RN MULTIVITAMINS TABS One tablet 08-25-2012 - 05-10-2013 [facility] by mouth daily (62218 ) MULTIPLE VITAMIN 55228655276 Paresh Braswell MD MULTIVITAMINS TABS One tablet 08-25-2012 [facility] by mouth daily (92847 ) MULTIPLE VITAMIN 57718496157 Mirna Valles RN MULTIVITAMINS TABS One tablet 08-25-2012 - 05-10-2013 [facility] by mouth daily (22638 ) MULTIPLE VITAMIN 55885038451 Paresh Braswell MD MULTIVITAMINS TABS One tablet 08-25-2012 [facility] by mouth daily (26335 ) MULTIPLE VITAMIN 19419498546 Mirna Valles RN MULTIVITAMINS TABS One tablet 08-25-2012 - 05-10-2013 [facility] by mouth daily (61245 ) MULTIPLE VITAMIN 25280304529 Paresh Braswell MD MULTIVITAMINS TABS One tablet 08-25-2012 [facility] by mouth daily (03357 ) MULTIPLE VITAMIN 29837975290 Mirna Valles RN MULTIVITAMINS TABS One tablet 08-25-2012 - 05-10-2013 [facility] by mouth daily (62492 ) MULTIPLE VITAMIN 72924571844 Paresh Braswell MD nitroglycerin NITROGLYCERIN 0.4 MG 09-09-2016 [facility] SUBL one tablet under RN of Sy ryder (87423) tongue every 5 minutes X 3 as needed chest pain NITROGLYCERIN [id number] Syd Hollingsworth MD ramipril ALTACE 5 MG CAPS One 09-02-2012 Ania Hart ulmonary Medicine tablet by mouth daily RN of Sy ryder (15358) RAMIPRIL [id number] Jamari Mclean [employer] ALTACE 5 MG CAPS One tablet 09-02-2012 Ania Merlos N [facility]monary [facility] of by mouth daily [place] (67171) RAMIPRIL 27772507566 Jamari Mclean [employer] rivaroxaban XARELTO 20 MG TABS 11-24-2012 [facility] One tablet by mouth (46834) daily with supper - on hold RIVAROXABAN 74058956122 Paresh Braswell MD rosuvastatin CRESTOR 20 MG TABS 10-14-2013 Sarah Sae[facility] One tablet by mouth RODRIGUEZ [place] of [place] (37242) daily ROSUVASTATIN CALCIUM 44875029617 Jamari Mclean [employer] simvastatin SIMVASTATIN 20 MG 08-25-2012 [facility] TABS One tablet by of [place] (11847) mouth daily SIMVASTATIN 72409039594 Mirna Valles RN ticagrelor BRILINTA 90 MG TABS 05-03-2014 - [facility] One tablet by mouth 07-24-2016 [facility] twice daily (61597) TICAGRELOR 28825352782 Ania Aguillon RN traMADol TRAMADOL HCL 50 MG 03-24-2017 [facility] TABS One tablet by (68610) mouth daily TRAMADOL HCL 05498606996 Syd Hollingsworth MD Problems Active Problems Category Problem Name Status Date Location Acute cerebrovascular Cerebrovascular Active 08-25-2012 - [facility] disease accident of [place] (145 34) Asthma Asthma Active 2016 - [facility]e [facility] [place] (446 91) Cardiac dysrhythmias Sinus brady[facility] (4 2836) Conduction disorders Cardiac pacemaker in Active 12-11-2012 - [facility] (5 4849) 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-25-2012 - [place] [facility] atherosclerosis and infarction (97421) other heart disease Delirium dementia and Postconcussion syndrome Active Rehab amnestic and other Services- Jew cognitive disorders Eduin t (71216) Disorders of lipid Hyperlipidemia Active 08-25-2012 - Pulmona ry Medicine metabolism of [place] (449 91) Essential hypertension Hypertensive disorder Active 3 - [facility] [place] (447 91) Intracranial injury [facility]80 [facility] Joint disorders and Dislocations, sprains Active Rehab dislocations; and strains involving [facility] trauma-related head with neck [place] ( 74615) Occlusion or stenosis Carotid artery stenosis Active 08-25-19 13 - Pulmonary Medicine of precerebral arteries of [place] (56172) Residual codes; Obstructive sleep apnea Active 2016 - [facility] unclassified syndrome [facility] (4 1372) Superficial injury; Superficial foreign Active 12-25-2012 - P ulmonary Medicine contusion body (splinter) of of [place] (83267) trunk, without major open wound and without mention of infection Unclassified Drug therapy finding Active 09-09-2016 - [facility] [place] (959 91) Unclassified Placement of stent in Active 09-09-2016 - [facility] coronary artery of [place] ( 23421) Unclassified Other cervical disc Active 07-15-2016 - Pulmonar y Medicine displacement at C4-C5 of [place] (78032) level Unclassified Long-term drug therapy Active 07-08-2013 - [facility] (4 8050) Unclassified Body mass index (BMI) Active 05-10-2013 - [facility] 27.0-27.9, adult [facility]ropracti c (71551) Past or Other Problems Category Problem Name Status Date Location Complication of device; Infection and Completed 12-15-2012 - Pul [facility] implant or graft inflammatory of [place] (85815) reaction due to cardiac device, implant, and graft Nonspecific chest pain Chest pain Completed 09-02-2012 - [facility] - 09-09-2016 [facility] (4 2055) - Other aftercare Long-term (current) Completed 07-08-2013 - Pulmo nary Medicine use of other of [place] (083 91) medications Other bone disease and Segmental and Completed 07-15-2016 - [facility] musculoskeletal somatic dysfunction [facility] (35159) deformities Other lower respiratory Dyspnea Completed 10-26-2012 - Pulm onary Medicine disease of [place] (446 91) Other nutritional; Body mass index Completed 05-10-2013 - [facility] endocrine; and (BMI) 26.0-26.9, of [place] (72720) metabolic disorders adult Other skin disorders Mass of axilla Completed 06-18-2017 - [facility] (178 28) NEGATED: Highlighted Disease Completed Reha b row has not [facility] occurred!Residual Mat (08927) codes; unclassified Results Result Name Value Range Unit Interpretation Flag Date Location hip, unilateral w/pelvis when performed 2-3 views on 2019-12-16 HIP, UNILATERAL Normal 12-16-2019 [facility] W/PELVIS WHEN Patient Name: BRIGETTE HOLGUIN [facility] ([id number]) PERFORMED 2-3 VIEWS STUDY: LeftHIP, UNILATERAL W/PELVIS WHEN PERFORMED 2-3 VIEWS; 2019 1:28 pm INDICATION: PAIN IN LEFT HIP. COMPARISON: None. ACCESSION NUMBER(S): [id number] ORDERING CLINICIAN: TONY SHARP FINDINGS: Bony structures: [...] by: PARESH OLIVEROS Normal 0 12-16-2019 Rehab NEPSIZ65/14/20 13:32MRN: Services-Jew [id number] Name: [place] ([id number]) BRIGETTE STUDY:LeftHIP, UNILATERAL W/PELVIS WHEN PERFORMED 2-3 [...] 12/16/19 13:32 Comment: Ordering Provider: TONY PHILLIPS [id number] progress on 2018-10 Protein mass conc HNO ID: [id number] Normal [facility] Author: Kathrin Mohan [place] ([id number]) Service: ? Author Type: Engine Pilot Type: Progress Notes Filed: 10/29/2018 1:01 PM Note Text: [facility] AUTOMATION TENDER QUICKNOTE Provider Action/FYI Brigette left a message on my voice mail stating his PCP is Dr. Carranza. Patient identified by name and . yes Kathrin Mohan MA progress on 2018-10 Protein mass conc HNO ID: [id number] Normal [facility] Author: Kathrin William ([id number]) Service: ? Author Type: Engine Pilot Type: Progress Notes Filed: 10/26/2018 9:36 AM Note Text: [facility] AUTOMATION TENDER CULLENNOTE Provider Action/FYI: Certified letter has been mailed to the patient. Patient identified by name and . yes Kathrin Mohan MA Protein mass conc HNO ID: [id number] Normal [facility] Author: Kathrin William ([id number]) Service: ? Author Type: Engine Pilot Type: Progress Notes Filed: 10/26/2018 9:36 AM Note Text: [facility] AUTOMATION TENDER CULLENNOTE Provider Action/FYI: Sending a certified letter to the patient to verify his PCP. Patient identified by name and . yes Kathrin Mohan MA Protein mass conc HNO ID: [id number] Normal [facility] Author: Kathrin William ([id number]) Service: ? Author Type: Engine Pilot Type: Progress Notes Filed: 10/26/2018 9:36 AM Note Text: [facility] AUTOMATION TENDER QUICKNOTE Provider Action/FYI: unable to contact patient by phone. Is phone is out service. Patient identified by name and . yes Kathrin Mohan MA progress on 2018-10 Protein mass conc HNO ID: [id number] Normal [facility] Author: Kathrin Mohan [place] ([id number]) Service: ? Author Type: Engine Pilot Type: Progress Notes Filed: 10/26/2018 9:36 AM Note Text: [facility] ASSISTANT QUICKNOTE Provider Action/FYI: need to verify PCP Patient identified by name and . yes Kathrin Mohan MA cnptoutreach on 201 04-06-22 CNPTOUTREACH Patient Outreach (FAMPWS) Normal 0 10-23-2018 [place] [facility] BRIGETTE HOLGUIN ([id number]) 1950 [facility] Date Time Provider Department (63310) 10/23/18 KATHRIN MOHAN) FAMPWS During your visit today, we recorded the following informati on about you: Kathrin Mohan MA 10/26/2018 9:[address] [facility] ASSISTANT JESSE Provider Action/FYI: need to verify PCP Patient identified by name and . yes JOHN Pena MA 10/26/2018 9:36 AM Signed [facility] AUTOMATION TENDER JESSE Provider Action/FYI: unable to contact patient by phone. Is phone is out service. Patient identified by name and . yes JOHN Pena MA 10/26/2018 9:36 AM Signed [facility] AUTOMATION TENDER CULLENNOTE Provider Action/FYI: Sending a certified letter to the patient to verify his PCP. Patient identified by name and . yes JOHN Pena MA 10/26/2018 9:36 AM Signed [facility] AUTOMATION TENDER MARCIA Provider Action/MELISSA: Certified letter has been mailed to the patient. Patient identified by name and . yes JOHN Pena MA 10/29/2018 1:01 PM Signed [facility] AUTOMATION TENDER MARCIA Provider Clark/MELISSA Brigette left a message [...] lectrodes Date Reviewed: 08/25/2017 Reviewed by: Kathrin ([facility]) KIRK Denson.DECORATIVE ENGRAVER APPRENTICE - Fully Ass essed Reason for Visit: PHMA/Care Gap Outreach [[id number]] Prescriptions as of 10/23/2018 Sig: METHOTREXATE ORAL [...] on 2018-01 Protein mass conc HNO ID: [id number] Normal [facility] Author: Renita Castelan LPN [place] ([id number]) Service: (none) Author Type: (none) Type: Progress [...] on 2018-01 Protein mass conc HNO ID: [id number] Normal [facility] Author: Kerry Arthur) Rigo William ([id number]) Service: (none) Author Type: Nurse Practitioner Type: Progress Notes Filed: 01/09/2018 8:59 AM Note Text: Please facilitate apt. Kerry Sierra, MSN GRISTMILL OPERATOR.DECORATIVE ENGRAVER APPRENTICE progress on 2017-12 Protein mass conc HNO ID: [id number] Normal [facility] Author: Kathrin Fox) Kimberlee [place] ([id number]) Service: (none) Author Type: Engine Pilot Type: Progress Notes Filed: 01/09/2018 8:59 AM [...] CNPTOUTREACH Patient Outreach (FAMPWS) Normal 0 12-30-2017 [place] [facility] BRIGETTE HOLGUIN ([id number]) 1950 [facility] Time Provider Department (20543) 12/30/17 KATHRIN MOHAN) FAMPWS During your visit [...] or PLT) CMP Lipids JOHN Pena, MSN GRISTMILL OPERATOR.DECORATIVE ENGRAVER APPRENTICE 01/09/2018 8:59 AM Signed Please facilitate apt. Kerry Sierra, MSN GRISTMILL OPERATOR.FABIAN Castelan LPN 01/09/2018 8:59 AM Signed Attempted to contact pt. Got recording stating that phone nu mber has been disconnected or is no longer in service. Letter mailed to pt asking pt to contact office to schedule routine f/u a ppt and to complete fasting labs prior to appt. Renita Castelan LPN Allergies As of Date: 12/30/2017 Noted Allergy Reaction SULFA (SULFONAMIDE ANTIBIOTICS) 06/19/2007 4 - Hives 12 - Shortness of Breath TAPE (ADHESIVE TAPE (ROSINS)) 09/06/2013 2 - Rash Comments: Patient has rash when using surgery tape and EKG e lectrodes Date Reviewed: 08/25/2017 Reviewed by: Kathrin (Fabian) CHELSIE DensonN.DECORATIVE ENGRAVER APPRENTICE - Fully Ass essed Reason for Visit: PHMA/Care Gap Outreach [3605] Primary Visit Diagnosis:Asthma with chronic obstructive pulm onary disease (COPD) ([facility]) [J44.9] Other Visit Diagnoses:Hyperlipidemia LDL goal <100 [E78.5] Benign hypertension [I10] Order(s):COMP METABOLIC PANEL [SQCMP] Order #: [id number] MADELYN LIPID PANEL BASIC [SQLIPB] Order #: [id number] FUTURE CBC + DIFF [SQCBCDIF] Order #: [id number] FUTURE Prescriptions as of 12/30/2017 Sig: METHOTREXATE [...] Benign hypertension [I10] INVALID FOR* Letter Text [facility] [address] [place], [place] [address] Brigette Holguin [address] [facility] [address] Clinic #: [id number] 01/09/2018 Dear Brigette, Our attempts to contact [...] your appointment. Please contact us a t [phone] to schedule your appointment and to update your contact info rmation. Sincerely, Dr Efrain Dimas III Encounter Status:Closed by RENITA CASTELAN LPN on 01/09/18 office visit: spine visit- neck & low ba ck pain on 2017-07-02 Documentation of Done Invalid 07-02-2017 - [facility] current medications Interpretation Code 07-02-2017 Chiropractic (procedure) (16409) office visit: left axilla mass on 2017-06-18 Alcoholism no Invalid 06-18-2017 - [facility] Hernandez rgical counseling Interpretation Code 7 [facility] (procedure) (21193) Documentation of Done Invalid 06-18-2017 [facility] Surgical current medications Interpretation Code 06-18-2017 Associates (procedure) (54531) Fall risk No Invalid 06-18-2017 [facility] Dominique gical assessment Interpretation Code 7 [facility] (39382) Tobacco smoking Never smoker Invalid 06-18-2017 [facility] Surgical status NHIS Interpretation Code 06-18-20 17 [facility] (81436) Tobacco smoking Never Invalid 06-18-2017 - [facility] status WVIS Interpretation Code 06-18-20 17 [facility] (48744) Tobacco use CPHS Never smoker Invalid 06-18-2017 - [facility] Surgical Interpretation Code 06-18-2017 Associates ([id number]) lab report: serum creatinine and gfr on 2017-06-18 Creatinine 1.13 0.70-1.30 mg/dL Invalid 06-18-2017 - [facility] Hernandez rgical Interpretation Code 06-18-2017 [facility] ([id number]) eGFR 69 >60 mL/min Invalid 06-18-2017 - [facility] Dominique gical (non-black) Interpretation Code 06-18-20 17 [facility] ([id number]) eGFR 83 >60 mL/min Invalid 06-18-2017 - [facility] Dominique gical (non-black) Interpretation Code 06-18-20 17 [facility] ([id number]) office visit: janell & asthma on 2017-06-03 Alcoholism no Invalid 06-03-2017 - [facility] Interpretation Code 7 Medicine of (procedure) [place] ([id number]) Documentation of Done Invalid 06-03-2017 - Pulmonary current medications Interpretation Code 06-03-2017 Medicine of (procedure) [place] ([id number]) Tobacco smoking Never Invalid 06-03-2017 - P ulmonary status WVIS Interpretation Code 06-03-20 17 [facility] [place] ([id number]) Tobacco use [facility] Never smoker Invalid 06-03-2017 - Pulmonary Interpretation Code 06-03-2017 [facility] [place] ([id number]) office visit: spine visit- neck & low ba ck pain on 2017-05-21 Documentation of Done Invalid 05-21-2017 - [facility] current medications Interpretation Code 05-21-2017 Chiropractic (procedure) ([id number]) Protein mass conc Done Invalid 05-21-2017 - [facility] Interpretation Code 05-21-2017 Chiropractic ([id number]) office visit: spine visit- neck & low ba ck pain on 2017-05-12 Documentation of Done Invalid 05-12-2017 - [facility] current medications Interpretation Code 05-12-2017 Chiropractic (procedure) ([id number]) Protein mass conc Done Invalid 05-12-2017 - [facility] Interpretation Code 05-12-2017 Chiropractic ([id number]) office visit: spine visit- neck & low ba ck pain on 2017-05-07 Documentation of Done Invalid 05-07-2017 - [facility] current medications Interpretation Code 05-07-2017 Chiropractic (procedure) ([id number]) office visit: spine visit- upper & mid b ack pain on 2017-04-23 Documentation of Done Invalid 04-23-2017 - [facility] current medications Interpretation Code 04-23-2017 Chiropractic (procedure) ([id number]) Protein mass conc Done 04-23-2017 - [facility] 04-23-2017 [facility] ([id number]) office visit: spine visit- mid & low lynn k pain on 2017-04-15 Protein mass conc Done 04-15-2016 - 04-15-2017 [facility] (40570) office visit: spine visit- mid & low lynn k pain on 2017-04-08 Documentation of Done Invalid 04-08-2017 - [facility] current medications Interpretation Code 04-08-2017 Chiropractic (procedure) ([id number]) Protein mass conc Done 04-08-2017 - [facility] 04-08-2017 [facility] ([id number]) lab report: liver profile on 2017-03-26 Alanine 28 12-78 U/L Invalid 03-26-2017 - [facility] aminotransferase Interpretation 03-26-20 17 Group ([id number]) (ALT) Code Albumin 4.1 3.4-5.0 g/dL Invalid 03-26-2017 - [facility] Interpretation 03-26-2017 Grou p ([id number]) Code Alkaline phosphatase 70 45-117 U/L Invalid 7 - [facility] (ALP) Interpretation 03-26-2017 Grou p ([id number]) Code ALP enzyme act/vol 70 45-117 U/L Invalid 03-26-2017 - [facility] (Bld) Interpretation 03-26-2017 Chir opractic Code ([id number]) Aspartate 17 15-37 U/L Invalid 03-26-2017 - [facility] aminotransferase Interpretation 03-26-20 17 Group ([id number]) (AST) Code Bilirubin (direct) 0.25 0.00-0.30 mg/dL Invalid 03-26-2017 - [facility] Interpretation 03-26-2017 Grou p ([id number]) Code Bilirubin (total) 1.10 0.20-1.00 mg/dL High 03-26-2017 - [facility] 03-26-2017 Group ([id number] 691) Globulin 3.0 2.3-3.5 g/dL Invalid 03-26-2017 - [facility] Interpretation 03-26-2017 Grou p ([id number]) Code Globulin mass conc 3.0 2.3-3.5 g/dL 03-26-2017 - [facility] (S) 03-26-2017 [facility] ([id number]) Protein 7.1 6.4-8.2 g/dL Invalid 03-26-2017 - [facility] Interpretation 03-26-2017 Grou p ([id number]) Code lab report: lipid profile on 2017-03-26 Cholesterol 107 200 mg/dL Invalid 03-26-2017 - [facility] Interpretation Code 03-26-2017 Group ([id number]) HDL Cholesterol 56 mg/dL Invalid 03-26-2017 - [facility] Interpretation Code 03-26-2017 Group ([id number]) LDL Cholesterol 40 0-130 mg/dL Invalid 03-26-2017 - [facility] Interpretation Code 03-26-2017 Group ([id number]) Lipoprotein.pre-be 11 5-40 mg/dL Invalid 03-26-2017 - [facility] ta mass conc Interpretation Code 017 Chiropractic (56724) Triglyceride 54 mg/dL Invalid 03-26-2017 - [facility] Interpretation Code 03-26-2017 Group ([id number]) very low density 11 5-40 mg/dL Invalid 03-26-2017 - [facility] lipoproteins Interpretation Code 017 Group ([id number]) office visit on 02-08-21 Documentation of Done Invalid Interpretation 03-24-2017 - [facility] current medications Code 03-24-2017 Group ([id number]) (procedure) Fall risk assessment No Invalid Interpretat ion 03-24-2017 - [facility] Code 03-24-2017 Group (44 491) Protein mass conc Done 03-24-2017 - [facility] 03-24-2017 Group (44 991) chart maintenance o n 2017-03-24 Left ventricular 65 % Invalid Interpretation 03-24-2017 - [facility] Ejection fraction Code 03-24-2017 G routanner ([id number]) office visit: spine visit- mid & low lynn k pain on 2017-01-14 Documentation of Done Invalid 01-14-2017 - [facility] current medications Interpretation Code 01-14-2017 [facility]ractic (procedure) ([id number]) Protein mass conc Done 01-14-2017 - [facility] 01-14-2017 [facility] ([id number]) office visit: spine visit- mid & low lynn k pain on 2017-01-08 Documentation of Done Invalid 01-08-2017 - [facility] current medications Interpretation Code 01-08-2017 Chiropractic (procedure) ([id number]) office visit: spine visit- mid & low lynn k pain on 2017-01-01 Documentation of Done Invalid 01-01-2017 - [facility] current medications Interpretation Code 01-01-2017 Chiropractic (procedure) ([id number]) office visit: spine visit- low back pain on 2016-12-25 Documentation of Done Invalid 12-25-2016 - [facility] current medications Interpretation Code 12-25-2016 Chiropractic (procedure) (40533) office visit: spine visit- low back pain on 2016-12-19 Documentation of Done Invalid 12-19-2016 - [facility] current medications Interpretation Code 12-19-2016 Chiropractic (procedure) (88502) office visit: janell & asthma on 2016-12-03 Alcoholism no Invalid 12-03-2016 - [facility] Interpretation Code 7 Medicine of (procedure) [facility] ([id number]) Documentation of Done Invalid 12-03-2016 - Pulmonary current medications Interpretation Code 12-03-2016 Medicine of (procedure) [place] ([id number]) Protein mass conc no Invalid 12-03-2016 - [facility] Interpretation Code 12-03-2016 [facility]ic (69681) Tobacco smoking Never Invalid 12-03-2016 - [facility] status WVIS smoker Interpretation Code 12-04-19 17 [facility]ic (27657) Tobacco smoking Never Invalid 12-03-2016 - P ulmonary status NHIS Interpretation Code 12-04-19 17 [facility] [place] (4 [id number]) Tobacco use CPHS Never Invalid 12-03-2016 - Pulmonary smoker Interpretation Code 12-03-2016 [facility] [place] (4 [id number]) replaced document: midmark ecg observati ons on 2016-09-24 EKG QRS axis 8 deg Invalid 09-24-2016 - [facility] Interpretation 09-24-2016 Chir opractic Code (59275) electrocardiogram Sinus Invalid 09-24-2016 - Pulmonary interpretation Rhythm Interpretation 09-24-2016 Medicine of -First Code [facility] (4 [id number]) degree A-V block Yari = 244BORDERL INE RHYTHM GE use only - for 374 ms Invalid 09-24-2016 - Pulmonary LinkLogic import when Interpretation Medicine of terms are not Code [place] (76119) otherwise specified Interpretation Sinus Invalid 09-24-2016 - [facility] Rhythm Interpretation 09-24-2016 Chir opractic -First Code (94942) degree A-V block Yari = 244BORDERL INE RHYTHM P Fields 50 deg Invalid 09-24-2016 - [facility] Interpretation 09-24-2016 Chir opractic Code (48360) P wave axis, 50 deg Invalid 09-24-2016 - Pulm onary electrocardiogram Interpretation 017 Medicine of Code [place] (4 4691) OR Interval 244 ms Invalid 09-24-2016 - [facility] Interpretation 09-24-2016 Chir opractic Code ([id number]) OR interval, 244 ms Invalid 09-24-2016 - Pulm [...] [facility] Interpretation 09-24-2016 Chir opractic Code (63411) QRS duration, 96 ms Invalid 09-24-2016 - Pul monary electrocardiogram Interpretation 017 Medicine of Code [place] (4 [id number]) QT Interval new path Invalid 09-24-2016 - [facility] ms Interpretation 09-24-2016 Chir opractic Code ([id number]) QT interval, new path Invalid 09-24-2016 - Pulm onary electrocardiogram ms Interpretation 017 Medicine of Code [place] (4 [id number]) QTc Anand 374 ms Invalid 09-24-2016 - [facility] Interpretation 09-24-2016 Chir opractic Code (88496) T Fields 31 deg Invalid 09-24-2016 - [facility] Interpretation 09-24-2016 Chir opractic Code ([id number]) T wave axis, 31 deg Invalid 09-24-2016 - Pulm onary electrocardiogram Interpretation 017 Medicine of Code [place] (4 [id number]) clinical lists update: preload on 2016-09-09 Left ventricular 65 % Invalid Interpretation 09-09-2016 - Pulmonary Ejection fraction Code 09-09-2016 M edicine of [place] (4 [id number]) clinical lists update: preload on 2014-11-08 Cholesterol 106 mg/dL Invalid Interpretation 11-08 - Pulmonary Code 11-08-2014 [facility] [place] (4 4691) HDL Cholesterol 54 mg/dL Invalid Interpretation 0 11-08-2014 - Pulmonary Code 11-08-2014 [facility] (4 4691) LDL Cholesterol 36 mg/dL Invalid Interpretation 0 11-08-2014 - Pulmonary Code 11-08-2014 [facility] [place] (4 4691) Triglyceride 79 mg/dL Invalid Interpretation 040 - Pulmonary Code 11-08-2014 [facility] [place] (4 [id number]) replaced document: midmark ecg observati ons on 2013-07-30 Pulse (Heart 379 ms Invalid Interpretation 07-05 - Pulmonary Medicine Rate) Code 07-30-2013 of [place] [facility] ([id number]) lab report: pt on 2 INR Coag RelTime 1.5 {INR} Normal 07-05-2013 - [facility] (PPP) 07-05-2013 [facility] (72814) INR in blood by 1.5 {INR} Normal 07-05-2013 - P ulmonary Medicine coagulation 07-05-[address] (37108) prothrombin time, 17.0 SECONDS 11.9-14 High 3 - Pulmonary Medicine actual/normal, .4 07-05-2013 of [place] (42244) ratio PTP 17.0 SECONDS 11.9-14 High 07-05-2013 - [facility] .4 07-05-2013 [facility] (04315) lab report: liver o n 2013-07-05 Alanine 31 12-78 U/L Normal 07-05-2013 - Pulmona ry Medicine aminotransferase (ALT) 013 of [place] (17819) Albumin 3.8 3.4-5.0 g/dL Normal 07-05-2013 - Pulmona ry Medicine 07-05-2013 of [place] (97262) Alkaline phosphatase 76 50-136 U/L Normal 3 - Pulmonary Medicine (ALP) 07-05-2013 of [place] ([id number]) ALP enzyme act/vol 76 50-136 U/L Normal 07-05-2013 - [facility] (Bld) 07-05-2013 [facility] (01828) Aspartate 23 15-37 U/L Normal 07-05-2013 - Pulmona ry Medicine aminotransferase (AST) 013 of [place] (33546) Bilirubin (direct) 0.20 0.00-0.30 mg/dL Normal 07-05-2013 - Pulmonary Medicine 07-05-2013 of [place] (56470) Bilirubin (total) 0.70 0.00-1.00 mg/dL Normal 07-05-2013 - Pulmonary Medicine 07-05-2013 of [place] ([id number]) lab report: lipid o n 2013-07-05 Lipoprotein.pre-beta mass 11 5-40 mg/dL Normal - [facility] conc 07-05-2013 [facility] (46564) very low density 11 5-40 mg/dL Normal 07-05-2013 - Pulmonary Medicine lipoproteins 07-05-2013 of [place] (45075) lab report: cbc on 2013-07-05 Erythrocytes (RBC) 4.96 4.6-6.2 10*6/uL Normal 07-05-2013 - Pulmonary Medicine 07-05-2013 of [place] (51756) Hematocrit (HCT) 43.4 40-54 % Normal 07-05-2013 - Pulmonary Medicine 07-05-2013 of [place] (74392) Hematocrit Volume 43.4 40-54 % Normal 07-05-2013 - [facility] Fraction (Bld) 07-05-2013 Chir opractic (75498) Hemoglobin (HGB) 15.0 13.0-16.5 g/dL Normal 07-05-2013 - Pulmonary Medicine 07-05-2013 of [place] (85550) Platelets 230 150-450 10*3/mm3 Normal 07-05-2013 - Pulmona ry Medicine 07-05-2013 of [place] ([id number]) Platelets #/vol 230 150-450 10*3/mm3 Normal 07-05-2013 - [facility] (Bld) 07-05-2013 [facility] ([id number]) RBC #/vol (Bld) 4.96 4.6-6.2 10*6/uL Normal 07-05-2013 - [facility] 07-05-2013 [facility] (30826) WBC #/vol (Bld) 4.6 4.4-11.0 10*9/L Normal 07-05-2013 - [facility] 07-05-2013 [facility] (47760) WBC (Leukocytes) 4.6 4.4-11.0 10*9/L Normal 07-05-2013 - Pulmonary Medicine 07-05-2013 of [place] [facility] ([id number]) lab report: bmp on 2013-07-05 Calcium 8.6 8.5-10.1 mg/dL Normal 07-05-2013 - Pulmona ry Medicine of 07-05-2013 [facility] ( 42099) Chloride 109 98-107 mmol/L High 07-05-2013 - Pulmona ry Medicine of 07-05-2013 [place] ( 06572) Creatinine 1.1 0.8-1.3 mg/dL Normal 07-05-2013 - [facility] Medicine of 07-05-2013 [place] ( 55496) Glucose 91 70-110 mg/dL Normal 07-05-2013 - Pulmona ry Medicine of 07-05-2013 [place] ( 03080) Glucose mass conc 91 70-110 mg/dL Normal 07-05-2013 - [facility] 07-05-2013 [facility] (56411) Potassium 4.1 3.5-5.1 mmol/L Normal 07-05-2013 - Pulmona ry Medicine of 07-05-2013 [place] ( 98168) Sodium 144 136-145 mmol/L Normal 07-05-2013 - Pulmona ry Medicine of 07-05-2013 [place] ( 94606) Urea nitrogen 18 7-18 mg/dL Normal 07-05-2013 - Pul monary Medicine of 07-05-2013 [facility] ( 95526) clinical lists update: preload on 2013-01-11 MCH 31.6 pg Invalid Interpretation 013 - Pulmonary Medicine Code 01-11-2013 of [place] ([id number]) MCH Entitic 31.6 pg 01-11-2013 - [facility] mass (RBC) 01-11-2013 Chiropra ctic (34662) MCHC 35.0 g/dL Invalid Interpretation 013 - Pulmonary Medicine Code 01-11-2013 of [place] (30474) MCHC mass conc 35.0 g/dL 01-11-2013 - [facility] (RBC) 01-11-2013 [facility]ac [facility] (26803) MCV 90.4 fL Invalid Interpretation 013 - Pulmonary Medicine Code 01-11-2013 of [place] (91291) MCV Entitic 90.4 fL 01-11-2013 - [facility] volume (RBC) 01-11-2013 Chirop ractic (92531) lab report: cub on 2012-12-21 Bacteria No growth in Invalid 12-21-2012 - Pulm onary culture 5 days. Interpretation Code 12-21-2012 [facility] [place] (4 4691) lab report: crp on 2012-12-15 C reactive protein < 2.90 0.0-3.0 mg/L Normal 12-15-2012 - Pulmonary Medicine (CRP) 12-15-2012 of [place] ([id number]) clinical lists update: preload on 2012-08-07 Anion gap 10 mmol/L Invalid Interpretation 013 - Pulmonary Medicine Code 08-07-2012 of [place] (77700) Anion gap 4 10 Invalid Interpretation 08-07 - [facility] molar conc Code 08-07-2012 Chiropra ctic (85618) Anion gap 10 mmol/L 08-07-2012 - [facility] molar conc 08-07-2012 Chiropra ctic (66312) BUN/Creatinin 16.9 mg/mg Invalid Interpretation - Pulmonary Medicine e Ratio Code 08-07-2012 of [place] ([id number]) CO2 26.0 mmol/L Invalid Interpretation 013 - Pulmonary Medicine Code 08-07-2012 of [place] ([id number]) CO2 ppres 26.0 mmol/L Invalid Interpretation 013 - [facility] (BldV) Code 08-07-2012 [facility] ([id number]) office visit: left axilla mass on 2007-05-04 Colonoscopy Normal Invalid 05-04-2007 - [facility] S urgical (procedure) Interpretation Code 05-04-20 07 [facility] ([id number]) Vital Signs Vital Sign Description Value / Unit Date Location The following section is limited to 5 en tries per type and includes entries from the following time range: [id number] - [id number] 5. BMI (Body Mass Index) 23.63 kg/m2 06-18-2017 - 06-18-2017 [facility] ([id number]) BMI (Body Mass Index) 23.48 kg/m2 06-03-2017 - 06-03-2017 [facility] (70863) BMI (Body Mass Index) 24.22 kg/m2 03-24-2017 - 03-24-2017 [facility] ([id number]) BMI (Body Mass Index) 25.54 kg/m2 12-03-2016 - 12-03-2016 Pu lmonary [facility] [place] (69622) Body Temperature 97.9 [degF] 06-18-2017 - 06-18-2017 [facility] Dominique gical [facility] ([id number]) Body Temperature 97.5 [degF] 06-03-2017 - 06-03-2017 Pulmona ry [facility] [place] (53317) Body Temperature 97.6 [degF] 12-03-2016 - 12-03-2016 Pulmona ry [facility] [place] (10595) Body Temperature 96.8 [degF] 2016 - 2016 Pulmona ry [facility] [place] (68048) BP Diastolic 72 mm[Hg] 06-18-2017 - 06-18-2017 [facility] Surg ical [facility] (33338) BP Diastolic 62 mm[Hg] 06-03-2017 - 06-03-2017 Pulmonar y [facility] [place] (18501) BP Diastolic 60 mm[Hg] 03-24-2017 - 03-24-2017 [facility] ([id number]) BP Diastolic 62 mm[Hg] 12-03-2016 - 12-03-2016 Pulmonar y [facility] [place] (56112) BP Systolic 111 mm[Hg] 06-18-2017 - 06-18-2017 [facility] Surg ical [facility] ([id number]) BP Systolic 97 mm[Hg] 06-03-2017 - 06-03-2017 Pulmonar y [facility] [place] ([id number]) BP Systolic 100 mm[Hg] 03-24-2017 - 03-24-2017 [facility] ([id number]) BP Systolic 100 mm[Hg] 12-03-2016 - 12-03-2016 Pulmonar y [facility] [place] (90324) BSA (Body Surface Area) 1.94 m2 2016 - 2016 [facility]monary [facility] [place] (15673) Heart rate 60 /min 09-24-2016 - 09-24-2016 [facility] (44426) Heart rate 379 ms 07-30-2013 - 07-30-2013 [facility] int Chiropractic (43142) Height 175.26 cm 06-18-2017 - 06-18-2017 [facility] Surg ical [facility] ([id number]) Height 175.26 cm 06-03-2017 - 06-03-2017 Pulmonar y [facility] [place] (64429) Height 175.26 cm 03-24-2017 - 03-24-2017 [facility] (17287) Height 175.26 cm 12-03-2016 - 12-03-2016 Pulmonar y [facility] [place] ([id number]) Height 175.26 cm 2016 - 2016 Pulmonar y [facility] [place] (93045) Pulse (Heart Rate) 59 /min 06-18-2017 - 06-18-2017 [facility] S urgical [facility] (49354) Pulse (Heart Rate) 67 /min 06-03-2017 - 06-03-2017 Pulmo nary [facility] [place] (02323) Pulse (Heart Rate) 60 /min 03-24-2017 - 03-24-2017 [facility] (16831) Pulse Oximetry 97 % 12-03-2016 - 12-03-2016 Pulmonar y [facility] [place] (45881) Pulse Oximetry 97 % 09-10-2016 - 09-10-2016 Pulmonar y [facility] [place] (62678) Respiratory Rate 18 /min 06-18-2017 - 06-18-2017 [facility] Dominique gical [facility] (35881) Respiratory Rate 18 /min 06-03-2017 - 06-03-2017 Pulmona ry [facility] [place] (91127) Respiratory Rate 18 /min 03-24-2017 - 03-24-2017 [facility] (51745) Respiratory Rate 18 /min 12-03-2016 - 12-03-2016 Pulmona ry [facility] [place] ([id number]) Weight 72.58 kg 06-18-2017 - 06-18-2017 [facility] Surg ical [facility] (02389) Weight 72.57 kg 06-18-2017 - 06-18-2017 [facility] Surg ical [facility] (45141) Weight 72.12 kg 06-03-2017 - 06-03-2017 Pulmonar y [facility] [place] (46866) Weight 74.39 kg 03-24-2017 - 03-24-2017 [facility] ([id number]) Weight 78.47 kg 12-03-2016 - 12-03-2016 Pulmonar y [facility] [place] (25319) Encounters Date Type Reason Provider Location 04-03-2020 Patient encounter HARINDER Villagran [facility]ility[facility] 03-01-2020 Patient encounter HARINDER Villagran acility[facility] 02-02-2020 Patient encounter HARINDER Villagran acility:[facility] procedure [facility] 01-25-2020 Patient encounter [facility] procedure [facility]-Samari warner [facility] ([id number]) 01-20-2020 Patient encounter [facility] procedure Services-Samari warner [facility] ([id number] 5) 01-17-2020 Patient encounter [facility] procedure Services-Samari warner [facility] ([id number] 5) 01-14-2020 Patient encounter [facility] procedure Services-Samari warner [facility] ([id number] 5) 01-12-2020 Patient encounter [facility] procedure Services-Samari warner [facility] ([id number] 5) 01-10-2020 Patient encounter [facility] procedure [facility]-Samari warner [facility] ([id number] 5) 01-07-2020 Patient encounter [facility]-Samari warner [facility] ([id number] 5) 01-06-2020 Patient encounter [facility]-Samari warner [facility] ([id number] 5) 01-03-2020 Patient encounter [facility] ([phone] 5) 12-31-2019 Patient encounter [facility] ([phone] 5) 12-30-2019 Patient encounter [facility] ([phone] 5) Procedures Procedure Name Date Provider Location Chiropractic manipulative 07-02-2017 - [facility] B [facility]oss[facility]-4 [facility] 07-03-2017 Chiropract ic ([id number]) Chiropractic manipulative 05-21-2017 - Marian B Dossi [facility] tx spinal 3-4 regions 05-22-2017 Chiropract ic ([id number]) Chiropractic manipulative 05-12-2017 - Marian B [facility]ossi [facility] tx spinal 3-4 regions 05-12-2017 Chiropract ic ([id number]) Chiropractic manipulative 05-07-2017 - Marian B [facility]ossi [facility] tx spinal 3-4 regions 05-07-2017 Chiropract ic ([id number]) Chiropractic manipulative 04-23-2017 - Marian B [facility]ossi [facility] tx spinal 3-4 regions 04-23-2017 Chiropract ic ([id number]) Chiropractic manipulation 04-23-2017 - [facility] B [facility]ossi [facility] 04-23-2017 Chi[facility]ractic (44 691) Chiropractic manipulative 04-15-2017 - Marian B [facility]ossi [facility] tx spinal 3-4 regions 04-15-2017 Chiropract ic ([id number]) Chiropractic manipulation 04-15-2017 - [facility] B [facility]ossi [facility] 04-15-2017 Chi[facility]ractic (44 691) Chiropractic manipulative 04-08-2017 - Marian B [facility]ossi [facility] tx spinal 3-4 regions 04-08-2017 Chiropract ic (47875) Chiropractic manipulation 04-08-2017 - Marian B Dossi [...] Hollingsworth MD [facility] 03-27-2017 ([id number]) DJN 03-24-2017 - Syd Hollingsworth MD [facility] 03-24-2017 ([id number]) Follow Up Appt 6 months 03-24-2017 - Syd Hollingsworth [facility] 03-24-2017 ([id number]) Lipid panel [AGGREGATE] 03-24-2017 - Syd Hollingsworth [facility] 03-27-2017 ([id number]) Follow Up Appt 6 months 03-17-2017 - [facility] (44 691) Pacer Clinic 03-17-2017 - Paresh Braswell MD [facility] 03-18-2017 Chiropractic (44 691) Program eval implantable in 03-17-2017 - Paresh Braswell MD [facility] persn dual ld pacer 03-17-2017 Chiropractic ([id number]) Follow Up Appt 6 months 03-17-2017 - Paresh Braswell [facility] 03-18-2017 ([id number]) Pacer Clinic 03-17-2017 - Paresh Braswell MD [facility] 03-18-2017 ([id number]) Pm device progr eval, dual 03-17-2017 - [facility] 03-17-2017 ([id number]) Chiropractic manipulative 01-14-2017 - Marian Bob [facility] tx spinal 3-4 regions 01-14-2017 Chiropract ic ([id number]) Chiropractic manipulation 01-14-2017 - Marian B [facility]ossi [facility] 01-14-2017 Chi[facility]ractic (44 691) Chiropractic manipulative 01-08-2017 - Marian B [facility]ossi [facility] tx spinal 3-4 regions 01-08-2017 Chiropract ic ([id number]) Chiropractic manipulation 01-08-2017 - [facility] B [facility]ossi [facility] 01-08-2017 Chi[facility]ractic (44 691) Chiropractic manipulative 01-01-2017 - Marian B [facility]ossi [facility] tx spinal 3-4 regions 01-02-2017 Chiropract ic ([id number]) Chiropractic manipulation 01-01-2017 - [facility] B [facility]ossi [facility] 01-02-2017 [facility]ractic (44 691) Chiropractic manipulative 12-25-2016 - Marian B [facility]ossi [facility] tx spinal 3-4 regions 12-25-2016 Chiropract ic ([id number]) Chiropractic manipulation 12-25-2016 - [facility] B [facility]ossi [facility] 12-25-2016 [facility]ractic (44 691) Chiropractic manipulative 12-19-2016 - Marian B [facility]ossi [facility] tx spinal 3-4 regions 12-19-2016 Chiropract ic ([id number]) Chiropractic manipulation 12-19-2016 - Marian B [facility]ossi [facility] 12-19-2016 Chi[facility]ractic (44 691) Chiropractic manipulative 11-21-2016 - Marian B [facility]ossi [facility] tx spinal 3-4 regions 11-21-2016 Chiropract ic ([id number]) Chiropractic manipulation 11-21-2016 - Marian B Dossi DC Pulmo nary Medicine of 11-21-2016 [facility] ([id number]) Chiropractic manipulative 11-05-2016 - Marian B [facility]ossi [facility] tx spinal 3-4 regions 11-05-2016 Chiropract ic ([id number]) Chiropractic manipulation 11-05-2016 - Marian B Dossi DC Pulmo [facility] Medicine of 11-05-2016 [facility] ([id number]) Chiropractic manipulative 10-23-2016 - Marian B [facility]ossi [facility] tx spinal 3-4 regions 10-23-2016 Chiropract ic ([id number]) Chiropractic manipulation 10-23-2016 - Marian B Dossi DC Pulmo [facility] of 10-23-2016 [facility] ([id number]) Follow Up Appt 3 months 10-16-2016 [facility] BETSY Thompson Chiropractic (44 691) Pacer Clinic 10-16-2016 - Amisha Saez [facility] 03-18-2017 BETSY Thompson [facility]ractic (44 461) Program eval implantable in 10-16-2016 - Amisha Saez [facility] persn dual ld pacer 10-17-2016 BETSY Thompson Chiropractic ([id number]) Follow Up Appt 3 months 10-16-2016 - [facility] 03-18-2017 BETSY Thompson ([id number]) Pacer Clinic 10-16-2016 - [facility] 03-18-2017 BETSY Thompson ([id number]) Pm device progr eval, dual 10-16-2016 - [facility] 10[facility]SY Thompson [place] ([id number]) Chiropractic manipulative 10-14-2016 - Marian Gray [facility] tx spinal 3-4 regions 10-14-2016 [facility] ([id number]) Chiropractic manipulation 10-14-2016 - Mairan Gray Dossi DC Pulmo [facility] of 10-14-2016 [place] ([id number]) Chiropractic manipulative 10-08-2016 - Marian B [facility]ossi [facility] tx spinal 3-4 regions 10-08-2016 [facility]ract ic ([id number]) Chiropractic manipulation 10-08-2016 - Marian B Dossi DC Pulmo [facility] of 10-08-2016 [place] ([id number]) Chiropractic manipulative 2016 - Marian B Dossi [facility] tx spinal 3-4 regions 2016 [facility]ract ic ([id number]) Pulmonary Function Test - 2016 - Bladimir Wilson DO [facility] complete 11-28-2016 [facility] ([id number]) Pulmonary stress 2016 - Bladimir Wilson DO [facility] test/simple 11-28-2016 [facility] ([id number]) Chiropractic manipulation 2016 - Marian B Dossi DC Pulmo nary Medicine of 2016 [place] ([id number]) Pulmonary Function Test - 2016 - Bladimir Wilson DO Pulmo nary Medicine of complete 11-28-2016 [place] ([id number]) Pulmonary stress 2016 - Bladimir Wilson DO Pulmonary Medi cine of test/simple 11-28-2016 [place] ([id number]) Ecg routine ecg w/least 12 09-24-2016 - Syd Hollingsworth [facility] lds w/i&r 03-18-2017 [facility]ractic ([id number] [phone]) Electrocardiogram, complete 09-24-2016 - Syd Hollingsworth MD [facility] 03-18-2017 ([id number]) Chiropractic manipulative 09-18-2016 - Marian B Dossi DC [facility] tx spinal 3-4 regions 09-18-2016 Chiropract ic ([id number]) Chiropractic manipulation 09-18-2016 - Marian B Dossi DC Pulmo nary Medicine of 09-18-2016 [place] ([id number]) Chiropractic manipulative 09-11-2016 - Marian B Dossi [facility] tx spinal 3-4 regions 09-11-2016 Chi[facility]ract ic ([id number]) Chiropractic manipulation 09-11-2016 - Marian B Dossi DC Pulmo nary Medicine of 09-11-2016 [place] ([id number]) DJN 09-10-2016 - Syd Hollingsworth MD [facility] 09-10-2016 [facility] ([id number] [phone]) Follow Up Appt 6 months 09-10-2016 - Syd Hollingsworth [facility] 09-10-2016 [facility] ([id number] [phone]) Follow Up BP Check 09-10-2016 - Syd Hollingsworth [facility] 09-10-2016 [facility] ([id number] [phone]) DJN 09-10-2016 - Syd Hollingsworth MD Pulmonary Me dicine of 09-10-2016 [place] ([id number]) Follow Up Appt 6 months 09-10-2016 - [facility] 09-10-2016 [place] ([id number]) Follow Up BP Check 09-10-2016 - Syd Hollingsworth MD Pulmonary Medicine of 09-10-2016 [place] ([id number]) Placement of stent in 09-09-2016 [facility] coronary artery [facility] ([id number] [phone]) Placement of stent in 09-09-2016 [facility] coronary artery [facility] ([id number] [phone]) Chiropractic manipulative 09-05-2016 - Marian B Dossi DC [facility] tx spinal 3-4 regions 09-05-2016 Chiropract ic ([id number]) Chiropractic manipulation 09-05-2016 - Marian B Dossi DC Pulmo nary Medicine of 09-05-2016 [place] ([id number]) Chiropractic manipulative 08-14-2016 - Marian B [facility]ossi [facility] tx spinal 3-4 regions 08-14-2016 Chiropract ic ([id number]) Chiropractic manipulation 08-14-2016 - Marian B Dossi DC Pulmo nary Medicine of 08-14-2016 [place] ([id number]) Chiropractic manipulative 08-07-2016 - Marian B Dossi [facility] tx spinal 3-4 regions 08-07-2016 Chiropract ic ([id number]) Chiropractic manipulation 08-07-2016 - Marian B Dossi DC Pulmo nary Medicine of 08-07-2016 [place] ([id number]) Chiropractic manipulative 07-23-2016 - Marian B Dossi DC [facility] tx spinal 3-4 regions 07-23-2016 Chiropract ic ([id number]) Chiropractic manipulation 07-23-2016 - Marian B Dossi DC Pulmo nary Medicine of 07-23-2016 [place] ([id number]) Chiropractic manipulative 07-18-2016 - Marian B Dossi DC [facility] tx spinal 3-4 regions 07-18-2016 Chiropract ic ([id number]) Chiropractic manipulation 07-18-2016 - Marian B Dossi DC Pulmo nary Medicine of 07-18-2016 [place] ([id number]) Chiropractic manipulative 07-15-2016 - Marian Gray Dossi DC [facility] tx spinal 3-4 regions 07-16-2016 Chiropract ic ([id number]) Chiropractic manipulation 07-15-2016 - Marian Gray Dossi DC Pulmo nary Medicine of 07-16-2016 [place] ([id number]) *Hepatic Function Panel 01-02-2014 - Paresh Braswell MD [facility] 09-10-2016 [facility] ([id number]) Lipid 1996 panel - Serum or 01-02-2014 - Paresh Braswell MD [facility] Plasma 09-10-2016 [facility] ([id number]) *Hepatic Function Panel 01-02-2014 - Paresh Braswell MD Pul onary Medicine of 09-10-2016 [place] ([id number]) Lipid panel [AGGREGATE] 01-02-2014 - Paresh Braswell MD Pul onary Medicine of 09-10-2016 [place] ([id number]) Follow Up Appt 3 months 12-15-2013 - Amisha Saez [facility] 09-10-2016 BETSY Thompson [facility] ([id number] [phone]) Pacer Clinic 12-15-2013 - Amisha Saez [facility] 09-10-2016 BETSY Thompson [facility] ([id number] [phone]) Program eval implantable in 12-15-2013 - [facility]isha Sae[facility] persn dual ld pacer 12-15-2013 BETSY Thompson [facility] ([id number]) Follow Up Appt 3 months 12-15-2013 - Amisha Saez Pulmonar y Medicine of 09-10-2016 BETSY Thompson [place] ([id number]) Pacer Clinic 12-15-2013 - Amisha Saez Pulmonary Medici ne of 09-10-2016 BETSY Thompson ([id number]) Pm device progr eval, dual 12-15-2013 - Amisha Saez Pulmo [facility] Medicine of 12-15-2013 BETSY Thompson [place] ([id number]) Device Interrogation 10-14-2013 - Paresh Braswell MD [...] implantable in 10-14-2013 - [facility] persn dual ld pacer 10-14-2013 [facility] ([id number]) Device Interrogation 10-14-2013 - Paresh Braswell MD Pulmona Medicine of 10-14-2013 [place] ([id number]) Follow Up Appt 3 months 10-14-2013 - Paresh Braswell MD Pulm onary Medicine of 01-12-2014 [place] ([id number]) Follow Up Appt 6 months 10-14-2013 - Paresh Braswell MD Pulm onary Medicine of 10-14-2013 [place] ([id number]) Pacer Clinic 10-14-2013 - Paresh Braswell MD Pulmonary Me dicine of 01-12-2014 [place] ([id number]) PFM 10-14-2013 - Paresh Braswell MD Pulmonary Me dicine of 10-14-2013 [place] ([id number]) Pm device progr eval, dual 10-14-2013 - Paresh Braswell MD P ulmonary Medicine of 10-14-2013 [place] ([id number]) Cardiac Rehab 07-30-2013 - Paresh Braswell MD [...] MD Pulmonary Me dicine of 01-12-2014 [place] ([id number]) Cardiovascular stress test 07-30-2013 - Paresh Braswell MD P ulmonary Medicine of using treadmill 10-14-2013 [place] ([id number]) Electrocardiogram, complete 07-30-2013 - Paresh Braswell MD Pulmonary Medicine of 07-30-2013 [place] ([id number]) Follow Up Appt 3 months 07-30-2013 - Paresh Braswell MD Pulm onary Medicine of 07-30-2013 [place] ([id number]) PFM 07-30-2013 - Paresh Braswell MD Pulmonary Me dicine of 07-30-2013 [place] ([id number]) Ecg routine ecg w/least 12 07-08-2013 - Paresh Braswell [facility] lds w/i&r 07-08-2013 [facility] ([id number] [phone]) Echocardiography 07-08-2013 - Paresh Braswell MD [facility] 01-12-2014 [facility] ([id number]) Left Heart Cath 07-08-2013 - Paresh Braswell MD [facility] 01-12-2014 [facility] ([id number]) Echocardiography 07-08-2013 - Paresh Braswell MD Pulmonary M edicine of 01-12-2014 [place] ([id number]) Electrocardiogram, complete 07-08-2013 - Paresh Braswell MD Pulmonary Medicine of 07-08-2013 [place] ([id number]) Left Heart Cath 07-08-2013 - Paresh Braswell MD Pulmonary Me dicine of 01-12-2014 [place] ([id number]) Lipid 1996 panel - Serum or 06-29-2013 - Paresh Braswell MD [facility] Plasma 07-07-2013 [facility] ([id number]) Lipid panel [AGGREGATE] 06-29-2013 - Paresh Braswell MD Pulm onary Medicine of 07-07-2013 [place] ([id number]) *BMP 06-28-2013 - Paresh Braswell MD [facility] 07-07-2013 [facility] ([id number] [phone]) *Hepatic Function Panel 06-28-2013 - [facility] 07-[facility] ([id number] [phone]) CBC W Auto Differential 06-28-2013 - Paresh Braswell MD [facility] panel - Blood 07-07-2013 [facility] ([phone]) Chest x-ray 06-28-2013 - Paresh Braswell MD [facility] 01-12-2014 [facility] ([id number] [phone]) Ecg routine ecg w/least 12 06-28-2013 - Paresh Braswell MD [facility] lds w/i&r 01-12-2014 [facility] ([id number]) INR in Platelet poor plasma 06-28-2013 - Paresh Braswell MD [facility] by Coagulation assay 07-07-2013 Chiropracti c ([id number]) Left & Right Heart Cath 06-28-2013 - Paresh Braswell MD [facility] 01-12-2014 [facility] ([id number]) *BMP 06-28-2013 - Paresh Braswell MD Pulmonary Me dicine of 07-07-2013 [place] ([id number]) *Hepatic Function Panel 06-28-2013 - Paresh Braswell MD Pulm onary Medicine of 07-07-2013 [place] ([id number]) CBC W Auto Differential 06-28-2013 - Paresh Braswell MD Pulm onary Medicine of panel - Blood 07-07-2013 [place] ([id number]) Chest x-ray 06-28-2013 - Paresh Braswell MD Pulmonary Me dicine of 01-12-2014 [place] ([id number]) Coagulation factor 06-28-2013 - Paresh Braswell MD Pulmonary Medicine of induced.INR assay in 07-07-2013 [place] ([id number]) platelet poor plasma Electrocardiogram, complete 06-28-2013 - Paresh Braswell MD Pulmonary Medicine of 01-12-2014 [place] ([id number]) Left & Right Heart Cath 06-28-2013 - Paresh Braswell MD Pulm onary Medicine of 01-12-2014 [place] ([id number]) Follow Up Appt 3 months 06-17-2013 - Paresh Braswell MD [facility] 06-28-2013 [facility] ([id number]) Interrogation eval remote 06-17-2013 - Paresh Braswell MD [facility] </90 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 06-17-2013 [facility]prac tic ([id number]) Pacer Clinic 06-17-2013 - Paresh Braswell MD [facility] 06-28-2013 [facility] ([id number] [phone]) Follow Up Appt 3 months 06-17-2013 - Paresh Braswell MD Pulm onary Medicine of 06-28-2013 [place] ([id number]) Pacer Clinic 06-17-2013 - Paresh Braswell MD Pulmonary Me dicine of 06-28-2013 [place] ([id number]) Pm device interrogate 06-17-2013 - Paresh Braswell MD [facility] remote 06-17-2013 [place] ([id number]) Follow Up Appt 3 months 05-10-2013 - Paresh Braswell MD [facility] 01-12-2014 [facility] ([phone]) PFM 05-10-2013 - Paresh Braswell MD [facility] 06-28-2013 [facility] ([phone]) Pulmonary Fuction Test - 05-10-2013 - Paresh Braswell MD [facility] complete 06-11-2013 [facility] ([id number] [phone]) Follow Up Appt 3 months 05-10-2013 - Paresh Braswell MD Pulm onary Medicine of 01-12-2014 [place] ([id number]) PFM 05-10-2013 - Paresh Braswell MD Pulmonary Me dicine of 06-28-2013 [place] ([id number]) Pulmonary Fuction Test - 05-10-2013 - [facility] 06-11-2013 [place] ([id number]) Follow Up Appt 3 months 03-12-2013 - [facility] 06-28-2013 [facility] ([id number] [phone]) Pacer Clinic 03-12-2013 - Paresh Braswell MD [facility] 06-28-2013 [facility] ([id number] [phone]) Program eval implantable in 03-12-2013 - Paresh Braswell MD [facility] persn dual ld pacer 03-12-2013 [facility] ([id number]) Follow Up Appt 3 months 03-12-2013 - Pa[facility]well [facility] 06-28-2013 [place] ([id number]) Pacer Clinic 03-12-2013 - Paresh Braswell MD Pulmonary Me dicine of 06-28-2013 [place] ([id number]) Pm device progr eval, dual 03-12-2013 - Paresh Braswell MD P [facility] Medicine of 03-12-2013 [place] ([id number]) Follow Up Appt 3 months 02-03-2013 - Paresh Braswell MD [facility] 02-03-2013 [facility] ([id number] [phone]) PFM 02-03-2013 - Paresh Braswell MD [facility] 02-03-2013 [facility] ([id number] [phone]) Follow Up Appt 3 months 02-03-2013 - [facility] 02-03-2013 [place] ([id number]) PFM 02-03-2013 - Paresh Braswell MD Pulmonary Me dicine of 02-03-2013 [place] ([id number]) Bacteria identified in 12-25-2012 - Olga Price MD [facility] oi Urine by Culture 06-28-2013 [facility]ic ([id number]) Urine culture, bacteria 12-25-2012 - Olga Price MD [facility] Medicine of 06-28-2013 [place] ([id number]) Follow Up Appt 6 weeks 12-23-2012 - [...] Braswell MD Pulmo nary Medicine of 12-23-2012 [place] ([id number]) Follow Up Appt Other 12-23-2012 - Paresh Braswell MD Pulmona ry Medicine of 12-23-2012 [place] ([id number]) MMM 12-23-2012 - Paresh Braswell MD Pulmonary Me dicine of 12-23-2012 [place] ([id number]) PFM 12-23-2012 - Paresh Braswell MD Pulmonary Me dicine of 12-23-2012 [place] ([id number]) *BMP 12-15-2012 - Amisha Saez [facility] 12-15-2012 BETSY Thompson [facility] ([id number]) *CBC with Differential 12-15-2012 - Paresh Braswell [facility] 12-15-2012 [facility] ([id number] [phone]) BETSY Thompson Bacteria identified in 12-15-2012 - Amisha Saez [facility] Blood by Culture 06-28-2013 BETSY Thompson [facility] ([id number]) Blood Culture 12-15-2012 - Amisha Saez [facility] 06-28-2013 BETSY Thompson [facility] ([id number]) C reactive protein 12-15-2012 - Amisha Saez [facility] [Mass/volume] in Serum or 12-15-2012 BETSY Thompson [facility]rop ract[facility] ([id number]) Plasma by High sensitivity method *BMP 12-15-2012 - Amisha Saez Pulmonary Medici ne of 12-15-2012 BETSY Thompson [place] ([id number]) *CBC with Differential 12-15-2012 - Paresh Braswell MD [facility] 12-15-2012 [facility] ([id number] [phone]) BETSY Thompson MD, PA-C Bacteria culture 12-15-2012 - Amisha Saez Pulmonary Medic ine of 06-28-2013 BETSY Thompson [place] ([id number]) Blood Culture 12-15-2012 - Amisha Saez Pulmonary Medici ne of 06-28-2013 BETSY Thompson [place] ([id number]) C reactive protein (hsCRP) 12-15-2012 - [facility] 12-15-2012 BETSY Thompson [place] ([id number]) Follow Up Appt 3 months 12-11-2012 - Paresh Braswell MD [facility] 06-28-2013 [facility] ([id number] [phone]) Pacer Clinic 12-11-2012 - Paresh Braswell MD [facility] 06-28-2013 [facility] ([id number] [phone]) Program eval implantable in 12-11-2012 - Paresh Braswell MD [facility] persn dual ld pacer 12-11-2012 [facility] ([id number]) Follow Up Appt 3 months 12-11-2012 - Pa[facility] 06-28-2013 [place] ([id number]) Pacer Clinic 12-11-2012 - Paresh Braswell MD Pulmonary Me dicine of 06-28-2013 [place] ([id number]) Pm device progr eval, dual 12-11-2012 - [facility] 12-11-2012 [place] ([id number]) *BMP 11-24-2012 - Paresh Braswell MD [facility] 12-15-2012 [facility] ([id number] [phone]) *BMP 11-24-2012 - Paresh Braswell MD Pulmonary Me dicine of 12-15-2012 [place] ([id number]) Follow Up Appt 2 months 10-26-2012 - Paresh Braswell [facility] 06-28-2013 [facility] ([id number] [phone]) Nuclear stress test 10-26-2012 - Paresh Braswell MD [facility] int -adenosine 06-28-2013 [facility] ([id number] [phone]) PFM 10-26-2012 - Paresh Braswell MD [facility] 10-26-2012 [facility] ([id number]) Xtrnl mobile cv telemetry 10-26-2012 - Paresh Braswell MD [facility] w/i&report 30 days 06-28-2013 [facility] ([id number]) Follow Up Appt 2 months 10-26-2012 - [facility] 06-28-2013 [place] ([id number]) Nuclear stress test 10-26-2012 - Paresh Braswell MD Pulmonar y Medicine of -adenosine 06-28-2013 [place] ([id number]) PFM 10-26-2012 - Paresh Braswell MD Pulmonary Me dicine of 10-26-2012 [place] ([id number]) Remote 30 day ecg 10-26-2012 - Paresh Braswell MD Pulmonary Medicine of rev/report 06-28-2013 [place] ([id number]) Ecg routine ecg w/least 12 10-08-2012 - Paresh Braswell MD [facility] lds w/i&r 10-08-2012 [facility] ([phone]) Electrocardiogram, complete 10-08-2012 - Paresh Braswell MD Pulmonary Medicine of 10-08-2012 [place] ([id number]) 24 hour holter monitor 09-17-2012 - Paresh Braswell MD [facility] 06-28-2013 [facility] ([id number]) 24 hour holter monitor 09-17-2012 - [facility] 06-28-2013 [place] ([id number]) Ecg routine ecg w/least 12 09-02-2012 - Paresh Braswell MD [facility] lds w/i&r 09-02-2012 [facility] ([id number] [phone]) Follow Up Appt 6 weeks 09-02-2012 - Paresh Braswell MD [facility] 09-02-2012 [facility] (44 [phone]) PF 09-02-2012 - Paresh Braswell MD [facility] 09-17-2012 [facility] (44 [phone]) Electrocardiogram, complete 09-02-2012 - Paresh Braswell MD Pulmonary Medicine of 09-02-2012 [place] ([id number]) Follow Up Appt 6 weeks 09-02-2012 - [facility] 09-02-2012 [place] ([id number]) PFM 09-02-2012 - Paresh Braswell MD Pulmonary Me dicine of 09-17-2012 [place] ([id number]) Plan of Treatment Plan Description Date Location Appointment Appointment 12-02-2017 - Pulmonary Medici ne of 12-02-2017 [place] ([id number]) *Hepatic Function Panel *Hepatic Function Panel 09-29-2017 - [facility] 04-04-2017 [facility] ([id number] [phone]) *Lipid Profile CC PCP *Lipid Profile CC PCP 09-29-2017 - [facility] 04-04-2017 [facility] ([id number] [phone]) *Hepatic Function Panel *Hepatic Function Panel 09-29-2017 - [facility] 04-04-2017 ([id number]) *Lipid Profile CC PCP *Lipid Profile CC PCP 09-29-2017 - [facility] 04-04-2017 ([id number]) Appointment no information 09-23-2017 - [place] [facility] 09-23-2017 ([id number]) Appointment Appointment 09-15-2017 - [place] [facility] 09-15-2017 ([id number]) Appointment Appointment 06-18-2017 - [facility] 06-18-2017 [facility] ([id number]) CT Chest with Contrast CT Chest with Contrast 06-18-2017 - [facility] Surgical 06-18-2017 [facility] ([id number]) DMB DMB 06-03-2017 - Pulmonary Medici ne of 06-03-2017 [place] ([id number]) Follow Up Appt 6 months Follow Up Appt 6 months 06-03-2017 - Pulmonary Medicine of 06-03-2017 [place] ([id number]) Appointment Appointment 06-03-2017 - Pulmonary Medici ne of 06-03-2017 [place] ([id number]) Appointment Appointment 06-03-2017 - [facility] 06-03-2017 [facility] ([id number] [phone]) Appointment Appointment 05-21-2017 - [facility] 05-21-2017 [facility] ([id number] [phone]) Appointment Appointment 05-12-2017 - [facility] 05-12-2017 [facility] ([id number] [phone]) Appointment Appointment 05-07-2017 - [facility] 05-07-2017 [facility] ([id number] [phone]) Appointment Appointment 04-23-2017 - [facility] 04-23-2017 [facility] ([id number] [phone]) Appointment Appointment 04-15-2017 - [facility] 04-15-2017 [facility] ([phone]) Appointment Appointment 04-08-2017 - [facility] 04-08-2017 ([id number]) *Hepatic Function Panel *Hepatic Function Panel 03-24-2017 [...] 03-24-2017 - [place] [facility] 03-24-2017 ([id number]) *Hepatic Function Panel *Hepatic Function Panel 03-24-2017 - [facility] 03-27-2017 ([id number]) DJN CHRISTIANON 03-24-2017 - [place] [facility] 03-24-2017 ([id number]) Follow Up Appt 6 months Follow Up Appt 6 months 03-24-2017 - [place] [facility] 03-24-2017 ([id number]) *Lipid Profile CC PCP *Lipid Profile CC PCP 03-24-2017 - [facility] 03-27-2017 ([id number]) Follow Up Appt 6 months Follow Up Appt 6 months 03-17-2017 - [facility] 03-18-2017 [facility] ([phone]) Pacer Clinic Pacer Clinic 03-17-2017 - [facility] 03-18-2017 [facility] ([phone]) Appointment Appointment 03-17-2017 - Pulmonary Medici ne of 03-17-2017 [place] ([id number]) Appointment Appointment 03-17-2017 - [facility] 03-17-2017 [facility] ([phone]) Follow Up Appt 6 months Follow Up Appt 6 months 03-17-2017 - [facility] 03-18-2017 ([id number]) Pacer Clinic Pacer Clinic 03-17-2017 - [place] [facility] 03-18-2017 ([id number]) Appointment Appointment 01-14-2017 - [facility] 01-14-2017 [facility] [...] 12-03-2016 - Pulmonary Medici ne of 12-03-2016 [place] ([id number]) DMIsaac GILLESPIE 12-03-2016 - Pulmonary Medici ne of 12-03-2016 [place] ([id number]) Follow Up Appt 6 months Follow Up Appt 6 months 12-03-2016 - Pulmonary Medicine of 12-03-2016 [place] ([id number]) Follow Up Appt 3 months Follow Up Appt 3 months 10-16-2016 - [facility] 03-18-2017 [facility] ([phone]) Pacer Clinic Pacer Clinic 10-16-2016 - [facility] 03-18-2017 [facility] ([phone]) Follow Up Appt 3 months Follow Up Appt 3 months 10-16-2016 - Pulmonary Medicine of 03-18-2017 [place] ([id number]) Pacer Clinic Pacer Clinic 10-16-2016 - Pulmonary Medici ne of 03-18-2017 [place] ([id number]) Follow up Appt 1x/week Follow up Appt 1x/week 10-08-2016 - [facility] 10-08-2016 [facility] ([phone]) Follow up Appt 1x/week Follow up Appt 1x/week 10-08-2016 - Pu lmonary Medicine of 10-08-2016 [place] ([id number]) VERNA GILLESPIE 2016 - [facility] 2016 [facility]ic [...] 6-minute testing; simple (eg, 11-28-2016 Chirop ractic ([id number]) walk) 6-minute walk) DMB DMB 2016 - Pulmonary Medici ne of 2016 [place] ([id number]) Follow up Appt 1x/week Follow up Appt 1x/week 2016 - Pu lmonary Medicine of 2016 [place] ([id number]) Follow Up Appt 2 months Follow Up Appt 2 months 2016 - Pulmonary Medicine of 2016 [place] ([id number]) Pulmonary Function Test - Pulmonary Function Test 2016 - Pulmonary Medicine of complete - complete 11-28-2016 [place] ([id number]) Pulmonary stress testing; Pulmonary stress 2016 - Pulmo nary Medicine of simple (eg, 6-minute testing; simple (eg, 11-28-2016 [place] (16275) walk) 6-minute walk) EKG (In office) EKG (In office) 09-24-2016 - [facility] 03-18-2017 [facility] ([id number] [phone]) EKG (In office) EKG (In office) 09-24-2016 - Pulmonary Medici ne of 03-18-2017 [place] ([id number]) Follow up Appt 1x/week Follow up Appt 1x/week 09-18-2016 - [facility] 09-18-2016 [facility] ([id number] [phone]) Follow up Appt 1x/week Follow up Appt 1x/week 09-18-2016 - Pu lmonary Medicine of 09-18-2016 [place] ([id number]) Follow up Appt 2x/week Follow up Appt 2x/week 09-11-2016 - [facility] 09-11-2016 [facility] ([phone]) Follow up Appt 2x/week Follow up Appt 2x/week 09-11-2016 - Pu lmonary Medicine of 09-11-2016 [place] ([id number]) JOSSELIN SCHWAB 09-10-2016 - [facility] 09-10-2016 [facility] ([phone]) Follow Up Appt 6 months Follow Up Appt 6 months 09-10-2016 - [facility] 09-10-2016 [facility] ([phone]) Follow Up BP Check Follow Up BP Check 09-10-2016 - [facility] 09-10-2016 [facility] (44 [phone]) DJN DJN 09-10-2016 - Pulmonary Medici ne of 09-10-2016 [place] ([id number]) Follow Up Appt 6 months Follow Up Appt 6 months 09-10-2016 - Pulmonary Medicine of 09-10-2016 [place] ([id number]) Follow Up BP Check Follow Up BP Check 09-10-2016 - Pulmonary Medicine of 09-10-2016 [place] ([id number]) Follow up Appt 2x/week Follow up Appt 2x/week 09-05-2016 - [facility] 09-05-2016 [facility] ([phone]) Follow up Appt 2x/week Follow up Appt 2x/week 09-05-2016 - Pu lmonary Medicine of 09-05-2016 [place] ([id number]) Follow up Appt 2x/week Follow up Appt 2x/week 08-14-2016 - [facility] 08-14-2016 [facility] ([phone]) Follow up Appt 2x/week Follow up Appt 2x/week 08-14-2016 - Pu lmonary Medicine of 08-14-2016 [place] ([id number]) Follow up Appt 2x/week Follow up Appt 2x/week 08-07-2016 - [facility] 08-07-2016 [facility] ([phone]) Follow up Appt 2x/week Follow up Appt 2x/week 08-07-2016 - Pu lmonary Medicine of 08-07-2016 [place] ([id number]) Follow up Appt 2x/week Follow up Appt 2x/week 07-23-2016 - [facility] 07-23-2016 [facility] ([phone]) Follow up Appt 2x/week Follow up Appt 2x/week 07-23-2016 - Pu lmonary Medicine of 07-23-2016 [place] ([id number]) Follow up Appt 2x/week Follow up Appt 2x/week 07-18-2016 - [facility] 07-18-2016 [facility] ([phone]) Follow up Appt 2x/week Follow up Appt 2x/week 07-18-2016 - Pu lmonary Medicine of 07-18-2016 [place] ([id number]) Follow up Appt 2x/week Follow up Appt 2x/week 07-15-2016 - [facility] 07-16-2016 [facility] ([phone]) Follow up Appt 2x/week Follow up Appt 2x/week 07-15-2016 - Pu lmonary Medicine of 07-16-2016 [place] ([id number]) *Hepatic Function Panel *Hepatic Function Panel 01-02-2014 - [facility] 09-10-2016 [facility] ([phone]) *Lipid Profile CC PCP *Lipid Profile CC PCP 01-02-2014 - [facility] 09-10-2016 [facility] ([phone]) *Hepatic Function Panel *Hepatic Function Panel 01-02-2014 - Pulmonary Medicine of 09-10-2016 [place] ([id number]) *Lipid Profile CC PCP *Lipid Profile CC PCP 01-02-2014 - Pulm onary Medicine of 09-10-2016 [place] ([id number]) Follow Up Appt 3 months Follow Up Appt 3 months 12-15-2013 - [facility] 09-10-2016 [facility] ([phone]) Pacer Clinic Pacer Clinic 12-15-2013 - [facility] 09-10-2016 [facility] ([phone]) Follow Up Appt 3 months Follow Up Appt 3 months 12-15-2013 - Pulmonary Medicine of 09-10-2016 [place] ([id number]) Pacer Clinic Pacer Clinic 12-15-2013 - Pulmonary Medici ne of 09-10-2016 [place] ([id number]) Device Interrogation Device Interrogation 10-14-2013 - Health [...] 10-14-2013 - [facility] 10-14-2013 [place] ([id number]) Follow Up Appt 3 months Follow Up Appt 3 months 10-14-2013 - [facility] 01-12-2014 [facility] ([id number]) Follow Up Appt 6 months Follow Up Appt 6 months 10-14-2013 - [facility] 10-14-2013 [facility] ([id number]) Pacer Clinic Pacer Clinic 10-14-2013 - [facility] 01-12-2014 [place] ([id number]) PFM PFM 10-14-2013 - [facility] 10-14-2013 [facility] ([id number]) Cardiac Rehab Cardiac Rehab 07-30-2013 - [facility] [...] - [facility] 01-12-2014 [place] ([id number]) Treadmill stress test (no Treadmill stress test 07-30-2013 - [facility] of imaging) (no imaging) 07-30-2013 [facility] ([id number]) EKG (In office) EKG (In office) 07-30-2013 - [facility] 07-30-2013 [place] ([id number]) Follow Up Appt 3 months Follow Up Appt 3 months 07-30-2013 - [facility] 07-30-2013 [place] ([id number]) PFM PFM 07-30-2013 - [facility] 07-30-2013 [facility] ([id number]) EKG (In office) EKG (In office) 07-08-2013 - [facility] 07-08-2013 [facility] ([id number] [phone]) Echocardiogram (complete) Echocardiogram 07-08-2013 - [facility] (complete) 07-08-2013 [facility] ([phone]) Left Heart Cath Left Heart Cath 07-08-2013 - [facility] 07-08-2013 [facility] ([phone]) Echocardiogram (complete) Echocardiogram 07-08-2013 - [facility] (complete) 07-08-2013 [facility] ([id number]) EKG (In office) EKG (In office) 07-08-2013 - [facility] 07-08-2013 [place] ([id number]) Left Heart Cath Left Heart Cath 07-08-2013 - [facility] 07-08-2013 [facility] ([id number]) *Lipid Profile CC PCP *Lipid Profile CC PCP 06-29-2013 - [facility] 07-07-[facility] ([phone]) *Lipid Profile CC PCP *Lipid Profile CC PCP 06-29-2013 - [facility]m [facility] of 07-07-2013 [facility] ([id number]) *BMP *BMP 06-28-2013 - [facility] 07-07-2013 [facility] [...] 06-28-2013 - [facility] 07-07-2013 [facility] ([id number]) *Hepatic Function Panel *Hepatic Function Panel 06-28-2013 - [facility] 07-07-2013 [place] ([id number]) *CBC without Diff *CBC without Diff 06-28-2013 - [facility] Me d[facility] of 07-07-2013 [place] ([id number]) X-Ray, Chest, PA & X-Ray, Chest, PA & 06-28-2013 - [facility] Lateral Lateral 01-12-2014 [facility] ([id number]) *PT/INR *PT/INR 06-28-2013 - [facility] 07-07-2013 [place] ([id number]) EKG (In office) EKG (In office) 06-28-2013 - [facility] 01-12-2014 [facility] ([id number]) Left & Right Heart Cath Left & Right Heart Cath 06-28-2013 - [facility] 06-28-2013 [facility] ([id number]) Follow Up Appt 3 months Follow Up Appt 3 months 06-17-2013 - [facility] 06-28-2013 [facility] ([phone]) Pacer Clinic Pacer Clinic 06-17-2013 - [facility] 06-28-2013 [facility] ([phone]) Follow Up Appt 3 months Follow Up Appt 3 months 06-17-2013 - [facility] 06-28-2013 [facility] ([id number]) Pacer Clinic Pacer Clinic 06-17-2013 - [facility] 06-28-2013 [place] ([id number]) Follow Up Appt 3 months Follow Up Appt 3 months 05-10-2013 - [facility] 01-12-2014 [facility] ([phone]) PFM PFM 05-10-2013 - [facility] 06-28-2013 [facility] ([phone]) Pulmonary Fuction Test - Pulmonary Fuction Test - 05-10-2013 - [facility] complete complete 06-11-2013 [facility] ([phone]) Follow Up Appt 3 months Follow Up Appt 3 months 05-10-2013 - [facility] 01-12-2014 [facility] ([id number]) PFM PFM 05-10-2013 - [facility] 06-28-2013 [place] ([id number]) Pulmonary Fuction Test - Pulmonary Fuction Test - 05-10-2013 - [facility] complete complete 06-11-2013 [place] ([id number]) Follow Up Appt 3 months Follow Up Appt 3 months 03-12-2013 - [facility] 06-28-2013 [facility] ([phone]) [facility] 03-12-2013 - [facility] 06-28-2013 [facility] ([phone]) Follow Up Appt 3 months Follow Up Appt 3 months 03-12-2013 - [facility] 06-28-2013 [place] ([id number]) [facility] 03-12-2013 - [facility] 06-28-2013 [place] ([id number]) Follow Up Appt 3 months Follow Up Appt 3 months 02-03-2013 - [facility] 02-03-2013 [facility] ([phone]) PFM PFM 02-03-2013 - [facility] 02-03-2013 [facility] ([phone]) Follow Up Appt 3 months Follow Up Appt 3 months 02-03-2013 - [facility] 02-03-2013 [facility] ([id number]) PFM PFM 02-03-2013 - [facility] of 02-03-2013 [facility] ([id number]) *C&S, Routine Bacteria *C&S, Routine Bacteria 12-25-2012 - [facility] 06-28-2013 [facility] ([phone]) *C&S, Routine Bacteria *C&S, Routine Bacteria 12-25-2012 - [facility] 06-28-2013 [facility] ([id number]) Follow Up Appt 6 weeks Follow Up [...] - Pu l[facility] of 12-23-2012 [place] ([id number]) Follow Up Appt Other Follow Up Appt Other 12-23-2012 - [facility] 12-23-2012 [facility] ([id number]) MMM MMM 12-23-2012 - [facility] of 12-23-2012 [place] ([id number]) PFM PFM 12-23-2012 - [facility] of 12-23-2012 [facility] ([id number]) *BMP *BMP 12-15-2012 - [facility] 12-15-2012 [facility] [...] 12-15-2012 - [facility] 12-15-2012 [facility] ([id number]) *CBC with Differential *CBC with Differential 12-15-2012 - [facility] 12-15-2012 [facility] ([phone]) *CUB - Culture, Blood *CUB - Culture, Blood 12-15-2012 - [facility] of 12-21-2012 [place] ([id number]) Blood Culture Blood Culture 12-15-2012 - [facility] of 06-28-2013 [facility] ([id number]) *CRP - C-Reative Protein *CRP - C-Reative Protein 12-15-2012 - [facility] 12-15-2012 [facility] ([id number]) Follow Up Appt 3 months Follow Up Appt 3 months 12-11-2012 - [facility] 06-28-2013 [facility] ([phone]) Pacer Clinic Pacer Clinic 12-11-2012 - [facility] 06-28-2013 [facility] ([phone]) Follow Up Appt 3 months Follow Up Appt 3 months 12-11-2012 - [facility] 06-28-2013 [place] ([id number]) Pacer Clinic Pacer Clinic 12-11-2012 - [facility] of 06-28-2013 [facility] ([id number]) *BMP *BMP 11-24-2012 - [facility] 12-15-2012 [facility] ([phone]) *BMP *BMP 11-24-2012 - [facility] 12-15-2012 [facility] ([id number]) Follow Up Appt 2 months Follow Up [...] months 10-26-2012 - [facility] 06-28-2013 [facility] ([id number]) Nuclear stress test Nuclear stress test 10-26-2012 - Pulmonar y Medicine of -adenosine -adenosine 10-26-2012 [place] ([id number]) PFM PFM 10-26-2012 - [facility] of 10-26-2012 [facility] ([id number]) 30 Day Holter Monitor 30 Day Holter Monitor 10-26-2012 - [facility] of 10-26-2012 [place] ([id number]) EKG (In office) EKG (In office) 10-08-2012 - [facility] 10-08-2012 [facility] ([phone]) EKG (In office) EKG (In office) 10-08-2012 - [facility] 10-08-2012 [place] ([id number]) 24 hour holter monitor 24 hour holter monitor 09-17-2012 - [facility] 06-28-2013 [facility] ([phone]) 24 hour holter monitor 24 hour holter monitor 09-17-2012 - [facility] of 06-28-2013 [place] ([id number]) EKG (In office) EKG (In office) 09-02-2012 - [facility] 09-02-2012 [facility] ([phone]) Follow Up Appt 6 weeks Follow Up Appt 6 weeks 09-02-2012 - [facility] 09-02-2012 [facility] ([phone]) PFM PFM 09-02-2012 - [facility] 09-17-2012 [facility] ([id number] [phone]) EKG (In office) EKG (In office) 09-02-2012 - [facility] of 09-02-2012 [place] ([id number]) Follow Up Appt 6 weeks Follow Up Appt 6 weeks 09-02-2012 - [facility] of 09-02-2012 [place] ([id number]) PFM PFM 09-02-2012 - [facility] of 09-17-2012 [place] ([id number]) Patient education HEART%20HEALTHY%20DIET [facility] ([id number]) NEGATED: Highlighted row Planned Goals not [facility] Re hab has been ruled out! documented Services-Sharath [facility] ([id number] ) The following information is from the original human readable content Name Dates Details Planned Observations Planned Goals not documented Payers Payer Name Policy Number Location [facility] [employer] [id number] [facility] ([id number]) [id number] [facility] ([id number]) [id number] [facility] ([id number]) [id number] [facility] ([id number]) The following information is from the original human readable contentNo Payer Records FoundNo Payer Records FoundNo Payer Records Found Social History Type Social History Description Date Locat ion Assertion Tobacco smoking consumption unknown [facility] (veronica) [facility] ([id number] ) The following information is from the original human readable contentNo Social History Records FoundNo Social History Records FoundNo Social History Records FoundNo Social History Records FoundNo Social History Records Found Functional Status Status Assessment Result Location NEGATED: Highlighted Functional status health Rehab rowFunctional performance issues are not documented Services -Fransisca [facility] ([id number]) Mental Status Status Assessment Result Location NEGATED: Highlighted Cognitive status health Rehab Servic es-[facility] rowCognitive function issues are not documented [facility] ([phone]) [Interpretation] Summary Purpose Family History No Family [...] BE BASED ON THE PRIMARY CLINICAL RECORDS. [facility] provides no warranty or guarantee of the accuracy or completeness of information in this document. UNRECOGNIZED CONTENT PROVIDED BELOW FOR UNRECOGNIZED SECTION No Status Records FoundNo Status Records FoundNo Status Records Found UNRECOGNIZED CONTENT PROVIDED BELOW FOR UNRECOGNIZED SECTION INFORMATION SOURCE DATE CREATED AUTHOR AUTHOR'S ORGANIZATIO N 11/02/2018 [facility] DATE CREATED AUTHOR AUTHOR'S ORGANIZATIO N 04/27/2020 [facility] DATE CREATED AUTHOR AUTHOR'S ORGANIZATIO N 05/15/2020 [facility] froilan
== END 2019-12-11 14:05 | disposition home or self-care (01) ==
PROVIDERS: Emergency Provider Emergency Medicine; PCP Family Medicine
DX: S06.0X0A Concussion without loss of consciousness, initial encounter (principal); S13.4XXA Sprain of ligaments of cervical spine, initial encounter; S20.229A Contusion of unspecified back wall of thorax, initial encounter; S50.312A Abrasion of left elbow, initial encounter; W00.0XXA Fall on same level due to ice and snow, initial encounter; I48.91 Unspecified atrial fibrillation; Z79.01 Long term (current) use of anticoagulants; Z88.1 Allergy status to other antibiotic agents; Z88.2 Allergy status to sulfonamides; Z88.8 Allergy status to other drugs, medicaments and biological substances
CPT/HCPCS: 70450; 71045; 72125; 72128; 72170; 90715; 99284

== ENCOUNTER → 2020-02-18 08:50 | Outpatient (CLI) | payer MEDICARE, OTHER, SELFPAY ==
[2020-01-06 11:36] VITALS: BMI 24.3
[2020-02-18 09:44] LABS: Absolute Lymphocyte Count 1.37 X10^3/uL (0.83-4.51); Absolute Neutrophil Count 3.6 X10^3/uL (2.0-7.7); Basophil# 0.04 X10^3/uL; Basophil% 0.7 % (0-1); Eosinophil# 0.03 X10^3/uL; Eosinophils% 0.5 % (0-5); Hematocrit 44.2 % (40-54); Hemoglobin 14.6 g/dL (13.0-16.5); Lymphocyte # 1.37 X10^3/ul (4.0); Lymphocyte % 24.7 % (19-41); Mean Corpuscular Hgb 32.2 pg (27.0-32.0); Mean Corpuscular Volume 97.4 fL (80-94); Mean Platelet Vol. 9.4 fl (6.2-12.0); Monocyte# 0.55 X10^3/uL; Monocyte% 9.9 % (0-10); NRBC Flagged by Analyzer 0 % (0-5); Neutrophil # 3.55 X10^3/uL (2.7-7.7); Platelet Count 226 K/mm3 (150-450); RBC Distribution Width CV 14.6 % (11.6-14.6); RBC Distribution Width SD 51.9 fl (35.1-43.9); Red Blood Count 4.54 M/mm3 (4.6-6.2); White Blood Count 5.6 K/mm3 (4.4-11.0)
[2020-02-18 10:18] LABS: ALB/GLOB Ratio 1.3 RATIO (0.9-2.4); AST(SGOT) 24 U/L (15-37); Alanine Aminotransfer ALT/SGPT 31 U/L (16-61); Alkaline Phosphatase 77 U/L (45-117); Anion Gap 6 (5-15); BUN 25 mg/dL (7-18); BUN/Creat Ratio 16.1 RATIO (10-20); Calcium,Total 9.2 mg/dL (8.5-10.1); Chloride 107 mmol/L (98-107); Creatinine, Serum 1.55 mg/dL (0.70-1.30); EST Glomerular Filtration Rate 47 mL/min (>60); Est Glom Filt Rate - Afr Amer 57 mL/min (>60); Glucose 102 mg/dL (74-106); Potassium 3.9 mmol/L (3.5-5.1); Sodium Level 140 mmol/L (136-145)
[2020-02-18 10:20] LABS: AST(SGOT) 25 U/L (15-37); Alanine Aminotransfer ALT/SGPT 32 U/L (16-61); Alkaline Phosphatase 75 U/L (45-117); Bilirubin, Direct 0.21 mg/dL (0.00-0.30); Cholesterol 118 mg/dL (200); High Density Lipoprotein 64 mg/dL; Triglycerides 74 mg/dL; Very Low Density Lipoprotein 15 mg/dL (5-40)
== END ==
PROVIDERS: Internal Medicine Cardiovascular Disease; PCP Family Medicine; Visit Provider Internal Medicine Rheumatology
DX: M06.4 Inflammatory polyarthropathy (principal); M21.40 Flat foot [pes planus] (acquired), unspecified foot; M47.892 Other spondylosis, cervical region; M47.894 Other spondylosis, thoracic region; M47.897 Other spondylosis, lumbosacral region; I10 Essential (primary) hypertension; I25.10 Atherosclerotic heart disease of native coronary artery without angina pectoris; E78.5 Hyperlipidemia, unspecified; I48.91 Unspecified atrial fibrillation; G47.33 Obstructive sleep apnea (adult) (pediatric)
CPT/HCPCS: 36415; 80053; 80061; 80076; 85025

== ENCOUNTER → 2020-03-29 10:47 | Outpatient (CLI) | payer MEDICARE, OTHER, SELFPAY ==
[2020-02-21 10:04] VITALS: BMI 25.7
[2020-03-29 12:30] LABS: Absolute Lymphocyte Count 1.03 X10^3/uL (0.83-4.51); Basophil# 0.04 X10^3/uL; Basophil% 0.7 % (0-1); Eosinophil# 0.04 X10^3/uL; Eosinophils% 0.7 % (0-5); Hematocrit 45.5 % (40-54); Hemoglobin 14.7 g/dL (13.0-16.5); Lymphocyte # 1.03 X10^3/ul (4.0); Lymphocyte % 17.8 % (19-41); Mean Corp Hgb Conc 32.3 g/dL (32-36); Mean Corpuscular Hgb 31.4 pg (27.0-32.0); Mean Corpuscular Volume 97.2 fL (80-94); Mean Platelet Vol. 9.5 fl (6.2-12.0); Monocyte# 0.64 X10^3/uL; NRBC Flagged by Analyzer 0 % (0-5); Neutrophil # 4.04 X10^3/uL (2.7-7.7); Neutrophil % 69.6 % (47-70); Platelet Count 265 K/mm3 (150-450); RBC Distribution Width CV 14.6 % (11.6-14.6); RBC Distribution Width SD 51.8 fl (35.1-43.9); Red Blood Count 4.68 M/mm3 (4.6-6.2); White Blood Count 5.8 K/mm3 (4.4-11.0)
[2020-03-29 12:45] LABS: ALB/GLOB Ratio 1.2 RATIO (0.9-2.4); AST(SGOT) 25 U/L (15-37); Alanine Aminotransfer ALT/SGPT 33 U/L (16-61); Albumin, Serum 3.8 g/dL (3.2-5.0); Alkaline Phosphatase 70 U/L (45-117); Anion Gap 4 (5-15); BUN 25 mg/dL (7-18); BUN/Creat Ratio 17.6 RATIO (10-20); Chloride 107 mmol/L (98-107); Creatinine, Serum 1.42 mg/dL (0.70-1.30); EST Glomerular Filtration Rate 53 mL/min (>60); Est Glom Filt Rate - Afr Amer 64 mL/min (>60); Globulin 3.2 g/dL (2.2-4.2); Glucose 86 mg/dL (74-106); Potassium 4.3 mmol/L (3.5-5.1); Sodium Level 139 mmol/L (136-145)
== END ==
PROVIDERS: PCP Family Medicine; Referring Provider Family Medicine; Visit Provider Internal Medicine Rheumatology
DX: M06.4 Inflammatory polyarthropathy (principal); Z79.899 Other long term (current) drug therapy; M21.40 Flat foot [pes planus] (acquired), unspecified foot; I10 Essential (primary) hypertension; E78.5 Hyperlipidemia, unspecified; I48.91 Unspecified atrial fibrillation; G47.33 Obstructive sleep apnea (adult) (pediatric)
CPT/HCPCS: 36415; 80053; 85025

== ENCOUNTER → 2020-06-15 08:37 | Outpatient (CLI) | payer MEDICARE, OTHER, SELFPAY ==
[2020-02-21 10:04] VITALS: BMI 25.7
[2020-06-15 10:14] LABS: Absolute Lymphocyte Count 1.25 X10^3/uL (0.83-4.51); Basophil# 0.05 X10^3/uL; Eosinophil# 0.03 X10^3/uL; Eosinophils% 0.6 % (0-5); Hematocrit 44.4 % (40-54); Hemoglobin 14.3 g/dL (13.0-16.5); Lymphocyte # 1.25 X10^3/ul (4.0); Lymphocyte % 24.8 % (19-41); Mean Corp Hgb Conc 32.2 g/dL (32-36); Mean Corpuscular Hgb 31.3 pg (27.0-32.0); Mean Corpuscular Volume 97.2 fL (80-94); Mean Platelet Vol. 9.2 fl (6.2-12.0); Monocyte# 0.65 X10^3/uL; Monocyte% 12.9 % (0-10); NRBC Flagged by Analyzer 0 % (0-5); Neutrophil # 3.04 X10^3/uL (2.7-7.7); Neutrophil % 60.3 % (47-70); Platelet Count 247 K/mm3 (150-450); RBC Distribution Width CV 14.4 % (11.6-14.6); RBC Distribution Width SD 51.6 fl (35.1-43.9); Red Blood Count 4.57 M/mm3 (4.6-6.2)
[2020-06-15 11:05] LABS: AST(SGOT) 18 U/L (15-37); Alanine Aminotransfer ALT/SGPT 30 U/L (16-61); Albumin, Serum 3.6 g/dL (3.2-5.0); Alkaline Phosphatase 74 U/L (45-117); Bilirubin, Direct 0.16 mg/dL (0.00-0.30); Cholesterol 121 mg/dL (200); Globulin 2.9 g/dL (2.2-4.2); High Density Lipoprotein 61 mg/dL; Protein, Total 6.5 g/dL (6.4-8.2); Triglycerides 51 mg/dL; Very Low Density Lipoprotein 10 mg/dL (5-40)
== END ==
PROVIDERS: Internal Medicine Cardiovascular Disease; PCP Family Medicine; Referring Provider Internal Medicine Rheumatology; Visit Provider Internal Medicine Rheumatology
DX: M06.4 Inflammatory polyarthropathy (principal); Z79.899 Other long term (current) drug therapy; M21.40 Flat foot [pes planus] (acquired), unspecified foot; M47.892 Other spondylosis, cervical region; M47.894 Other spondylosis, thoracic region; M47.897 Other spondylosis, lumbosacral region; I10 Essential (primary) hypertension; I25.10 Atherosclerotic heart disease of native coronary artery without angina pectoris; E78.5 Hyperlipidemia, unspecified; I48.91 Unspecified atrial fibrillation; G47.33 Obstructive sleep apnea (adult) (pediatric)
CPT/HCPCS: 36415; 80061; 80076; 85025

== ENCOUNTER → 2020-08-01 19:49 | Outpatient (CLI) | payer MEDICARE, OTHER, SELFPAY ==
[2020-07-19 11:12] VITALS: BMI 25.1
== END ==
PROVIDERS: PCP Family Medicine; Referring Provider Internal Medicine Critical Care Medicine; Visit Provider Internal Medicine Critical Care Medicine
DX: G47.33 Obstructive sleep apnea (adult) (pediatric) (principal)
CPT/HCPCS: 95811

== ENCOUNTER → 2020-08-12 10:04 | Outpatient (CLI) | payer MEDICARE, OTHER, SELFPAY ==
[2020-08-09 08:44] VITALS: BMI 26.2
[2020-08-12 11:10] LABS: Absolute Lymphocyte Count 0.97 X10^3/uL (0.83-4.51); Absolute Neutrophil Count 3.2 X10^3/uL (2.0-7.7); Basophil# 0.03 X10^3/uL; Basophil% 0.6 % (0-1); Eosinophil# 0.02 X10^3/uL; Eosinophils% 0.4 % (0-5); Hematocrit 42.8 % (40-54); Hemoglobin 14.2 g/dL (13.0-16.5); Lymphocyte # 0.97 X10^3/ul (4.0); Mean Corp Hgb Conc 33.2 g/dL (32-36); Mean Corpuscular Hgb 32.1 pg (27.0-32.0); Mean Corpuscular Volume 96.6 fL (80-94); Mean Platelet Vol. 9.4 fl (6.2-12.0); Monocyte# 0.59 X10^3/uL; Monocyte% 12.2 % (0-10); NRBC Flagged by Analyzer 0 % (0-5); Neutrophil # 3.22 X10^3/uL (2.7-7.7); Neutrophil % 66.6 % (47-70); Platelet Count 237 K/mm3 (150-450); RBC Distribution Width CV 13.9 % (11.6-14.6); RBC Distribution Width SD 49.1 fl (35.1-43.9); Red Blood Count 4.43 M/mm3 (4.6-6.2); White Blood Count 4.8 K/mm3 (4.4-11.0)
[2020-08-12 11:33] LABS: ALB/GLOB Ratio 1.4 RATIO (0.9-2.4); AST(SGOT) 26 U/L (15-37); Alanine Aminotransfer ALT/SGPT 39 U/L (16-61); Albumin, Serum 3.8 g/dL (3.2-5.0); Alkaline Phosphatase 80 U/L (45-117); Anion Gap 3 (5-15); BUN 22 mg/dL (7-18); BUN/Creat Ratio 14.3 RATIO (10-20); Calcium,Total 9.1 mg/dL (8.5-10.1); Chloride 108 mmol/L (98-107); Creatinine, Serum 1.54 mg/dL (0.70-1.30); EST Glomerular Filtration Rate 48 mL/min (>60); Est Glom Filt Rate - Afr Amer 58 mL/min (>60); Globulin 2.8 g/dL (2.2-4.2); Glucose 86 mg/dL (74-106); Potassium 4.4 mmol/L (3.5-5.1); Protein, Total 6.6 g/dL (6.4-8.2); Sodium Level 141 mmol/L (136-145)
== END ==
PROVIDERS: PCP Internal Medicine; Referring Provider Internal Medicine Rheumatology; Visit Provider Internal Medicine Rheumatology
DX: M06.4 Inflammatory polyarthropathy (principal); Z79.899 Other long term (current) drug therapy; M21.40 Flat foot [pes planus] (acquired), unspecified foot; M47.892 Other spondylosis, cervical region; M47.894 Other spondylosis, thoracic region; M47.897 Other spondylosis, lumbosacral region; I10 Essential (primary) hypertension; I25.10 Atherosclerotic heart disease of native coronary artery without angina pectoris; E78.5 Hyperlipidemia, unspecified; I48.91 Unspecified atrial fibrillation; G47.33 Obstructive sleep apnea (adult) (pediatric)
CPT/HCPCS: 36415; 80053; 85025

== ENCOUNTER → 2020-10-31 09:33 | Outpatient (CLI) | payer MEDICARE, OTHER, SELFPAY ==
[2020-10-12 11:07] VITALS: BMI 26.7
[2020-10-31 10:37] LABS: Absolute Lymphocyte Count 0.95 X10^3/uL (0.83-4.51); Absolute Neutrophil Count 4.5 X10^3/uL (2.0-7.7); Basophil# 0.04 X10^3/uL; Basophil% 0.6 % (0-1); Eosinophil# 0.02 X10^3/uL; Eosinophils% 0.3 % (0-5); Hematocrit 43.3 % (40-54); Lymphocyte # 0.95 X10^3/ul (4.0); Lymphocyte % 15.2 % (19-41); Mean Corp Hgb Conc 32.3 g/dL (32-36); Mean Corpuscular Hgb 31.3 pg (27.0-32.0); Mean Corpuscular Volume 96.7 fL (80-94); Mean Platelet Vol. 9.1 fl (6.2-12.0); Monocyte# 0.73 X10^3/uL; Monocyte% 11.7 % (0-10); NRBC Flagged by Analyzer 0 % (0-5); Platelet Count 241 K/mm3 (150-450); RBC Distribution Width CV 13.5 % (11.6-14.6); RBC Distribution Width SD 48.4 fl (35.1-43.9); Red Blood Count 4.48 M/mm3 (4.6-6.2); White Blood Count 6.3 K/mm3 (4.4-11.0)
[2020-10-31 11:08] LABS: ALB/GLOB Ratio 1.3 RATIO (0.9-2.4); AST(SGOT) 26 U/L (15-37); Alanine Aminotransfer ALT/SGPT 34 U/L (16-61); Albumin, Serum 3.6 g/dL (3.2-5.0); Alkaline Phosphatase 81 U/L (45-117); Anion Gap 3 (5-15); BUN 16 mg/dL (7-18); BUN/Creat Ratio 10.9 RATIO (10-20); Calcium,Total 8.8 mg/dL (8.5-10.1); Chloride 104 mmol/L (98-107); Creatinine, Serum 1.47 mg/dL (0.70-1.30); EST Glomerular Filtration Rate 50 mL/min (>60); Est Glom Filt Rate - Afr Amer 61 mL/min (>60); Globulin 2.8 g/dL (2.2-4.2); Glucose 90 mg/dL (74-106); Potassium 4.3 mmol/L (3.5-5.1); Protein, Total 6.4 g/dL (6.4-8.2); Sodium Level 140 mmol/L (136-145)
--- NOTE | 2020-10-31 14:05 | PFTCOMP ---
COMPLETE PULMONARY FUNCTION TEST INTERPRETATION Brief HPI: Patient is a 70 year old male, currently under the care of Dr. Wilson, who presents to [facility] for complete pulmonary function tests secondary to diagnosis of dyspnea. Respiratory therapist reports good effort and reproducible results. Interpretation: Forced expiration spirometry shows mild large airways obstructive ventilatory defect with an FEV1 of 105% predicted. There is a significant bronchodilator response in FVC and FEV1 by strict ATS criteria. Spirograms are of good quality and plateau slowly, indicating slowly emptying areas of the lungs. The respiratory flow volume loop shows decreased expiratory flow rates at all lung volumes consistent with airway obstruction. Lung volumes by body plethysmography show a normal total lung capacity at 7.28 L, 116% predicted. All other lung volumes are within normal limits. Diffusion capacity by carbon monoxide is normal at 97% predicted. The airway resistance is normal. Compared to previous pulmonary function tests from 12/08/2018, is been a significant reduction in FVC and FEV1 by 27% and 26% respectively. Impression: Fully reversible mild large airways obstructive ventilatory defect with some worsening compared to 2019.
== END ==
PROVIDERS: Internal Medicine Rheumatology; PCP Internal Medicine; Referring Provider Nurse Practitioner Acute Care; Visit Provider Nurse Practitioner Acute Care
DX: M06.4 Inflammatory polyarthropathy (principal); Z79.899 Other long term (current) drug therapy; M21.40 Flat foot [pes planus] (acquired), unspecified foot; M47.892 Other spondylosis, cervical region; M47.894 Other spondylosis, thoracic region; M47.897 Other spondylosis, lumbosacral region; I10 Essential (primary) hypertension; I25.10 Atherosclerotic heart disease of native coronary artery without angina pectoris; E78.5 Hyperlipidemia, unspecified; I48.91 Unspecified atrial fibrillation; G47.33 Obstructive sleep apnea (adult) (pediatric)
CPT/HCPCS: 36415; 80053; 85025; 94060; 94726; 94729

== ENCOUNTER → 2020-11-14 12:24 | Outpatient (CLI) | payer MEDICARE, OTHER, SELFPAY ==
[2020-10-12 11:07] VITALS: BMI 26.7
[2020-11-14 12:48] VITALS: PULSE 60; PULSE 66; PULSE 79; PULSE 80; PULSE 81; PULSE 82; O2SAT 94; O2SAT 95; O2SAT 96; O2SAT 98
--- NOTE | 2020-11-14 14:30 | PCM.PSN.6M ---
PSN 6 Minute Walk Test - 6 Minute Walk Test 6 Minute Walk Test: 6 Minute Walk Test PSN:6-Minute Walk Test Start: 11/14/20 12:47 Freq: Status: Active Protocol: RESP.6MINW Document 11/14/20 12:48 JENNY (Rec: 11/14/20 12:51 JENNY [id number]) 6 Minute Walk Test Date Performed 11/14/20 Time Performed 12:30 Height 5 ft 9 in Weight: 79.379 kg Weight in Pounds 175.[address]: Kathie Shelton INSURANCE CLAIMS REPRESENTATIVE Assistive device used: None Pre-test Oxygen Delivery Method Room Air Pulse Ox (%) 96 Pulse Rate (60-100 beats/min) 60 Dyspnea Koko Scale (0-10) 0 Exertion Koko Scale (6-20) 6 1st minute Oxygen Delivery Method Room Air Pulse Ox (%) 95 Pulse Rate (60-100 beats/min) 80 2nd minute Oxygen Delivery Method Room Air Pulse Ox (%) 94 Pulse Rate (60-100 beats/min) 82 3rd minute Oxygen Delivery Method Room Air Pulse Ox (%) 94 Pulse Rate (60-100 beats/min) 81 4th minute Oxygen Delivery Method Room Air Pulse Ox (%) 95 Pulse Rate (60-100 beats/min) 79 5th minute Oxygen Delivery Method Room Air Pulse Ox (%) 94 Pulse Rate (60-100 beats/min) 82 6th minute Oxygen Delivery Method Room Air Pulse Ox (%) 94 Pulse Rate (60-100 beats/min) 80 Dyspnea Koko Scale (0-10) 0 Exertion Koko Scale (6-20) 12 Post-test Oxygen Delivery Method Room Air Pulse Ox (%) 98 Pulse Rate (60-100 beats/min) 66 Full Laps Walked 19 Partial Lap, Number of Tiles Walked 30 Total Distance Walked (ft) 1151 - Interpretation Interpretation: The patient was able to ambulate 1151 feet over the course of 6 minutes on room air with no assistive devices or breaks. The patient experienced no significant desaturation or tachycardia. These findings are consistent with a normal walking oximetry. - Recommendations Recommendations: No supplemental oxygen is indicated at this time.
== END ==
PROVIDERS: PCP Internal Medicine; Visit Provider Nurse Practitioner Acute Care
DX: R06.02 Shortness of breath (principal)
CPT/HCPCS: 94618

== ENCOUNTER 2020-11-21 17:16 | Emergency (ER) | payer MEDICARE, OTHER, SELFPAY ==
[2020-10-12 11:07] VITALS: BMI 26.7
[2020-11-21 17:17] VITALS: BP 153/84; PULSE 60; RESP 16; TEMP 35.5; O2SAT 96; BMI 25.8
--- NOTE | 2020-11-21 17:39 | ED.DCSUM_ITS ---
- ER Visit Summary Date of Service: 11/21/20 Chief Complaint: Acute right shoulder pain History of Present Illness: The patient is a 70 M history of stroke, CAD, COPD, pacemaker, cardiac stent, A. fib on Xarelto. Patient said he was taking out trash 1-3 on a dumpster and had a sudden pop in his right shoulder. This occurred around 4 PM. He has had pain since that time. Decreased range of motion to his shoulder. No fall or other injury. No prior shoulder problems. No prior shoulder surgery. He is right-hand dominant. Physical Examination: Male no acute distress vital signs stable afebrile. HEENT exam unremarkable. Lungs clear to auscultation. Heart regular rhythm no m urmur. Chest wall nontender. Abdomen soft nontender. Extremities moves all 4. Calves nontender without edema or cords. Mild pain of palpation to his right shoulder. No gross bony deformity. No dislocation. He has limited AB and adduction. He has trouble lifting his arm over his head but if I do it passively can hold it over his head I do not think he has a complete tear of his rotator cuff he may have a partial tear versus a shoulder strain versus other etiology. His right elbow and wrist are nontender neurovascular intact with normal range of motion. He has a strong radial pulse. 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 And normal sensation his right hand. Back nontender. Neurologic exam unremarkable. Test Results: Shoulder x-ray views read by myself and the radiologist shows no acute abnormality. No fracture. No dislocation. I did go over the films with the patient. Yossi exam no change. Again the patient is unable to lift his arm over his head but if I passively lift his arm over his head he can hold it up. I did explain to him that I have a concern that he may have partially torn something in his shoulder like a partial rotator cuff tear versus a shoulder strain or other etiology.. Emergency Department Course and Treatment: Patient did not waiting for pain. I am obtain an x-ray of his right shoulder. I suspect a soft tissue injury. Treatment Plan: Tylenol for pain. Ice. Patient cannot really do anti- inflammatories due to being on blood thinners. Sling. Do range of motion. Follow-up with local orthopedic physician. Disposition: Discharge Impression: Acute right shoulder strain Rule out rotator cuff injury versus other soft tissue injuries. This note was generated with [employer] dictation software. It may contain incorrect words, spelling, and punctuation that were not noted in review of the chart prior to signing ED Disposition - Plan for ED Patient: Referrals: Reshma Arreola MD [Primary Care Provider] -
--- NOTE | 2020-11-21 17:58 | RAD_ITS ---
STUDY: X-RAY - RIGHT SHOULDER REASON FOR EXAM: Male, 70 years old. sudden pain -- r TECHNIQUE: 4 view(s) of the shoulder. COMPARISON: None. FINDINGS: Normal glenohumeral articulation. There is degenerative arthrosis of the acromioclavicular joint without inferior osseous spur formation. Normal acromion. Normal humeral head and visualized proximal humerus. The soft tissue structures are unremarkable. There is no demonstrated fracture. Normal visualized pulmonary apex. RAD/Shoulder min 2 Views IMPRESSION: No definite acute or significant abnormality seen. Electronically Signed: Zohaib Giraldo MD at 18:08 EDT , Service support ,
--- NOTE | 2020-11-21 18:29 | DCINST.ED_ITS ---
ED Disposition - Plan for ED Patient: Disposition: Home or Assisted Living Instructions: ED Shoulder Sprain Referrals: Reshma Arreola MD [Primary Care Provider] - As Needed Justin Philip MD [STAFF PHYSICIAN] - As soon as possible Additional Instructions: Your x-ray of your shoulder was normal. There is no obvious broken bone or dislocation. You either have a shoulder strain which should be a muscle injury versus a partial tear of a tendon, ligament or cartilage. Those do not show up on your x-ray. Tylenol for pain. Ice to the shoulder. Sling except when sleeping or bathing. Try to do range of motion 5-6 times a day to prevent stiffness. Call and follow-up with Dr. Justin Philip of [facility] for further evaluation of your shoulder.
[2020-11-21 18:53] VITALS: BP 192/82; PULSE 66; RESP 16; TEMP 36.7; O2SAT 98
--- NOTE | 2020-11-21 18:58 | ED.RN ---
Dr Mendez aware of BP elevation and agreeable for patient to go home and take his meds and recheck it. Naomi states he usually takes it in the evening and has not taken it yet
== END 2020-11-21 19:01 | disposition home or self-care (01) ==
PROVIDERS: Emergency Provider Emergency Medicine; PCP Internal Medicine
DX: S46.911A Strain of unspecified muscle, fascia and tendon at shoulder and upper arm level, right arm, initial encounter (principal); X50.9XXA Other and unspecified overexertion or strenuous movements or postures, initial encounter; Y93.9 Activity, unspecified; Y92.89 Other specified places as the place of occurrence of the external cause; Y99.9 Unspecified external cause status; I25.10 Atherosclerotic heart disease of native coronary artery without angina pectoris; J44.9 Chronic obstructive pulmonary disease, unspecified; I48.91 Unspecified atrial fibrillation; Z79.01 Long term (current) use of anticoagulants; Z95.0 Presence of cardiac pacemaker; Z95.5 Presence of coronary angioplasty implant and graft
CPT/HCPCS: 73030; 99283

== ENCOUNTER → 2020-12-08 10:36 | Outpatient (CLI) | payer MEDICARE, OTHER, SELFPAY ==
[2020-12-07 15:22] VITALS: BMI 25.8
[2020-12-08 11:45] LABS: Creatinine, Serum 1.51 mg/dL (0.70-1.30); EST Glomerular Filtration Rate 49 mL/min (>60); Est Glom Filt Rate - Afr Amer 59 mL/min (>60)
== END ==
PROVIDERS: PCP Internal Medicine; Referring Provider Specialist; Visit Provider Specialist
DX: S46.011A Strain of muscle(s) and tendon(s) of the rotator cuff of right shoulder, initial encounter (principal)
CPT/HCPCS: 36415; 82565

== ENCOUNTER → 2020-12-14 07:59 | Outpatient (CLI) | payer MEDICARE, OTHER, SELFPAY ==
[2020-12-13 06:04] VITALS: BMI 25.8
[2020-12-14 09:22] LABS: AST(SGOT) 27 U/L (15-37); Alanine Aminotransfer ALT/SGPT 36 U/L (16-61); Albumin, Serum 3.7 g/dL (3.2-5.0); Alkaline Phosphatase 90 U/L (45-117); Bilirubin, Direct 0.19 mg/dL (0.00-0.30); Cholesterol 119 mg/dL (200); Globulin 3.2 g/dL (2.2-4.2); High Density Lipoprotein 77 mg/dL; Protein, Total 6.9 g/dL (6.4-8.2); Triglycerides 40 mg/dL; Very Low Density Lipoprotein 8 mg/dL (5-40)
== END ==
PROVIDERS: PCP Internal Medicine; Referring Provider Internal Medicine Cardiovascular Disease; Visit Provider Internal Medicine Cardiovascular Disease
DX: I25.10 Atherosclerotic heart disease of native coronary artery without angina pectoris (principal); E78.5 Hyperlipidemia, unspecified
CPT/HCPCS: 36415; 80061; 80076

== ENCOUNTER → 2020-12-19 12:10 | Outpatient (CLI) | payer MEDICARE, OTHER, SELFPAY ==
[2020-12-19 11:02] VITALS: BMI 25.8
[2020-12-19 15:46] LABS: PSA,Total- Diagnostic 5.12 ng/mL (0.0-4.0)
== END ==
PROVIDERS: PCP Internal Medicine; Referring Provider Internal Medicine; Visit Provider Internal Medicine
DX: R33.9 Retention of urine, unspecified (principal)
CPT/HCPCS: 36415; 84153

== ENCOUNTER → 2020-12-20 10:19 | Outpatient (CLI) | payer MEDICARE, OTHER, SELFPAY ==
[2020-12-07 15:22] VITALS: BMI 25.8
[2020-12-19 11:02] VITALS: BMI 25.8
--- NOTE | 2020-12-20 10:23 | RAD_ITS ---
STUDY: RIGHT GLENOHUMERAL JOINT INJECTION REASON FOR EXAM: Male, 70 years old. Injection of contrast for CT to follow RADIATION DOSAGE (If Supplied By Facility): CTDIvol = ( ) mGy, DLP = ( ) mGycm. Individualized dose optimization techniques were used for this CT.? FLUOROSCOPY TIME (if supplied): ( 38 ) seconds, 1 overhead film obtained TECHNIQUE: Fluoroscopically guided COMPARISON: None. FINDINGS: After informed consent was obtained, patient was placed on the fluoroscopic table in the supine position, and an appropriate site for injection of the right glenohumeral joint was determined using fluoroscopy. The area was prepped and draped in a sterile manner, and 2% LIDOCAINE was used as local anesthetic. Using sterile technique including and washing and wearing of gloves, a 22-gauge spinal needle was advanced into the right glenoid humeral joint. ISOVUE 370 contrast confirms placement within the joint. 10 ml of ISOVUE 370 contrast was then instilled into the glenohumeral joint. Patient tolerated the procedure well and no immediate complications and was sent to CT for additional imaging RAD/Arthrogram Shoulder IMPRESSION: Right glenohumeral joint injection Electronically Signed: Veto Murguia MD at 13:03 EDT , Service support ,
--- NOTE | 2020-12-20 10:27 | CT_ITS ---
STUDY: RIGHT UPPER EXTREMITY CT SCAN WITH CONTRAST (ARTHROGRAM) REASON FOR EXAM: Male, 70 years old. STRAIN OF MUSCLE RADIATION DOSAGE (If Supplied By Facility): CTDIvol = ( 24.58 ) mGy, DLP = ( 557.48 ) mGycm. Individualized dose optimization techniques were used for this CT.? TECHNIQUE: Axial multidetector CT scan of the right upper cavity. Coronal and sagittal reformatted images. Arthrogram technique with intra-articular contrast ministration of 10 cc dilute ISOVUE-300. Please see dedicated arthrographic technique. COMPARISON: Shoulder x-ray dated 11/21/2020. FINDINGS: Adequate intra-articular contrast administration with capsular distention. Full-thickness retracted supraspinatus/infraspinatus tendon tear (coronal image 44 series 601). Tendons retracted to the level of the glenoid. Region of tear measures approximately 4.5 cm x 5 cm. Subscapularis tendon intact. Teres minor tendon intact. No significant muscle atrophy. Biceps labral anchor intact. Fraying of the glenoid labrum with anterior labral tear (axial image 27 series 3). Capsular ligaments intact. Normal rotator cuff interval. Intracapsular long biceps intact. Intra-articular contrast injection extending through the rotator cuff tear into the subacromial subdeltoid bursa. Mild glenohumeral joint arthrosis. Superior humeral head migration secondary to rotator cuff tear. Mild/moderate acromioclavicular joint arthrosis. No acute fracture, dislocation or cortical destruction. Degenerative changes at the cervical and thoracic spine. Right lung clear. Cardiomegaly. Cardiac stenting. Cardiac device. Ribs intact. CT/Extremity Upper WITH Contrast IMPRESSION: Full-thickness retracted supraspinatus/infraspinatus tendon tear Labral degeneration/Efrain with anterior labral tear Mild glenohumeral and AC joint arthrosis with anterior impingement/superior humeral head migration Additional degenerative changes, as above Electronically Signed: Kwaku Thurman DO at 12:23 EDT Tel , Service support ,
--- NOTE | 2020-12-20 12:14 | US_ITS ---
INDICATION: Urinary retention -- Please do a post void residual with study EXAMINATION: US Kidney(s) complete (eg, kidneys and bladder) TECHNIQUE: Taylor scale and color doppler images were obtained of the kidneys. COMPARISON: None. FINDINGS: RIGHT KIDNEY: Normal location of the right kidney, which is normal in size. The right kidney measures 9.6 cm. There is a normal cortex of the right kidney. The renal cortex measures 1.6 cm. There is no right renal mass or cyst. There are no right renal calculi. There is no right hydronephrosis. LEFT KIDNEY: Normal location of the left kidney, which is normal in size. The left kidney measures 10.1 cm. There is a normal cortex of the left kidney. The renal cortex measures 1.5 cm. There is no left renal mass or cyst. There are no left renal calculi. There is no left hydronephrosis. URINARY BLADDER: No acute abnormality. The post void residual is 30 cc. PROSTATE: The prostate gland is enlarged measuring 30.2 cc in volume. US/Kidney and Bladder IMPRESSION: Mild prostatomegaly with 30 cc of postvoid residual volume. Findings are most consistent with bladder outlet obstruction. Electronically Signed: Washington Barron MD at 17:28 EDT Tel , Service support ,
== END ==
PROVIDERS: PCP Internal Medicine; Referring Provider Specialist; Visit Provider Specialist
DX: S46.011A Strain of muscle(s) and tendon(s) of the rotator cuff of right shoulder, initial encounter (principal); R33.9 Retention of urine, unspecified
CPT/HCPCS: 23350; 73040; 73201; 76770; A9575; Q9967

== ENCOUNTER 2020-12-22 21:00 | Inpatient (IN) | payer MEDICARE, OTHER, SELFPAY ==
[2020-12-19 11:02] VITALS: BMI 25.8
[2020-12-22 21:01] VITALS: BP 160/67; PULSE 60; RESP 16; TEMP 36.3; O2SAT 99; BMI 25.8
[2020-12-22 21:04] VITALS: BMI 25.8
[2020-12-22 21:05] VITALS: BP 160/67; PULSE 60; RESP 18; O2SAT 100
--- NOTE | 2020-12-22 21:05 | ED.RN ---
CALLED FOR EKG PER RN REQUEST, PULLED OLD EKGS FOR
--- NOTE | 2020-12-22 21:22 | EKG12_ITS ---
Test Reason : DYSRHYTHMIA Blood Pressure : / mmHG Vent. Rate : 060 BPM Atrial Rate : 060 BPM P-R Int : 262 ms QRS Dur : 122 ms QT Int : 448 ms P-R-T Axes : 101 009 039 degrees QTc Int : 448 ms Atrial-paced rhythm with prolonged AV conduction Non-specific intra-ventricular conduction delay Abnormal ECG Confirmed by NANCY AMBROSIO, ISIDORO ([id number]), editorial project manager SARA SCHUSTER ([id number]) on 12/26/2020 10:18:04 A M Referred By: AVA Confirmed By:MARTHA CRUZ MD
--- NOTE | 2020-12-22 21:22 | CT_ITS ---
We are attempting to reach an attending provider to discuss findings. An addendum with communication details will be sent when the communication is complete. STUDY: CT BRAIN WITHOUT CONTRAST REASON FOR EXAM: Male, 70 years old. Neuro deficit, acute, stroke suspected RADIATION DOSAGE (If Supplied By Facility): CTDIvol = ( ) mGy, DLP = ( ) mGycm TECHNIQUE: Transaxial CT imaging of the brain was performed without administration of intravenous contrast material. Individualized dose optimization techniques were used for this CT. COMPARISON: No relevant priors. FINDINGS: Normal soft tissue structures. Normal calvarium. There is mild cerebral atrophy with widening of the extra-axial spaces and ventricular dilatation. Normal white matter tracts of the cerebral hemispheres. Normal basal ganglia and thalami. Normal brainstem. Normal cerebellum. There is no intracranial hemorrhage. There are no findings of an acute ischemic infarction. Atherosclerotic calcification of the cavernous carotid arteries. Normal visualized paranasal sinuses. CT/STROKE Brain/Head without Cont IMPRESSION: 1. No acute findings. 2. Chronic involutional changes of the brain. Electronically Signed: Nikki Rosas MD at 21:46 EDT Tel , Service support ,
--- NOTE | 2020-12-22 21:24 | ED.VIS.STROK ---
HPI History of Present Illness Chief Complaint: Neuro S/Sx Onset/Context/Timing Onset: Today Context: Sudden Onset Timing: Intermittent (several episodes) and Lasts (10-30 min) Quality and Location: Positive for Left Face Parasthesia, Left Arm Parasthesia and Slurred Speech Current Severity: Gone Maximum Severity: Moderate Worsened by: nothing Relieved by: nothing in particular Associated Symptoms Associated Symptoms: Positive for Nausea; Negative for Headache, Vomiting and Chest Pain Narrative Narrative: Patient with a history of a stroke from which he eventually fully recovered having intermittent symptoms of left lower facial and left arm tingling/numbness today along with slurred speech that resolved along with the numbness. Symptoms are gone now. He has felt nauseated with it but denies any headache, palpitations or near syncope, or chest discomfort. He is on Xarelto and aspirin for history of heart disease and atrial fibrillation which he is compliant with. Denies any bleeding from anywhere recently. [facility] Medical History Arthritis Asthma Atherosclerosis of coronary artery of 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 Paroxysmal atrial fibrillation Shortness of breath Sick sinus syndrome Sinus bradycardia TIA (transient ischemic attack) Urinary retention Fdsdw-Qkbuejouz-Uwsga (WPW) syndrome Home Medications nitroglycerin 0.4 mg sublingual tablet 0.4 mg SUBLINGUAL Q5M PRN #25 tab 02/11/19 [Rx Last Taken 07/27/19] aspirin 81 mg PO DAILY@1800 07/29/19 [History Last Taken 07/28/19] diltiazem HCl 180 mg capsule,extended release 24 hr 180 mg PO DAILY #90 cap 06/19/20 [Rx Last Taken Unknown] rosuvastatin 20 mg tablet 20 mg PO DAILY #90 tab 08/14/20 [Rx Last Taken Unknown] losartan 25 mg tablet See Rx Instructions .ROUTE .COMPLEX #90 tab 08/30/20 [Rx Last Taken Unknown] ropinirole 1 mg tablet 1 mg PO QHS #90 tab 09/04/20 [Rx Last Taken Unknown] rivaroxaban 20 mg tablet 20 mg PO DAILY #30 tab 09/05/20 [Rx Last Taken Unknown] amiodarone 200 mg tablet 200 mg PO DAILY #90 tab 09/19/20 [Rx Last Taken Unknown] duloxetine 60 mg capsule,delayed release 60 mg PO DAILY cap 10/05/20 [History Last Taken Unknown] hydroxychloroquine 200 mg tablet 200 mg PO BID tab 10/05/20 [History Last Taken Unknown] lidocaine HCl 4 % (40 mg/mL) mucosal solution 1 ml MUCOUS MEMBRANE ONCE PRN ml 10/05/20 [History Last Taken Unknown] fluticasone furoate 200 mcg-vilanterol 25 mcg/dose inhalation powder 1 inh INHALATION QDAY #60 ea 10/12/20 [Rx Last Taken Unknown] tamsulosin 0.4 mg capsule 0.4 mg PO QHS #30 cap 12/19/20 [Rx Last Taken Unknown] Allergy/AdvReac Type Severity Reaction Status Date / Time Sulfa (Sulfonamide Allergy Mild Rash Verified 12/22/20 21:12 Antibiotics) clopidogrel [From Plavix] AdvReac Severe Other - Verified 12/22/20 21:12 genetic nonresponder, needs brillinta oxybutynin AdvReac Severe short of Verified 12/22/20 21:12 breath, very dry mouth metoprolol [From Lopressor] AdvReac Mild - Verified 12/22/20 21:12 bronchospasm nystatin AdvReac Unknown Unknown Verified 12/22/20 21:12 MEDICAL TAPE AdvReac Itching Uncoded 12/22/20 21:12 Family History Brother CVA (cerebral vascular accident) Carotid artery stenosis Father CVA (cerebral vascular accident) Carotid artery stenosis Mother Stomach cancer Surgical History H/O eye surgery History of coronary artery stent placement (07/23/13) History of herniorrhaphy History of left heart catheterization (08/02/19) History of spinal surgery Presence of cardiac pacemaker (12/08/12) Social History Smoking Status: Never smoker alcohol intake: never substance use type: does not use what type of physical activity do you participate in: walking ROS ROS ED Constitutional Constitutional ED: Denies chills or fever(s) Eyes Eyes: Denies change in vision or diplopia ENT ENT ED: Denies rhinorrhea or sore throat Cardiovascular Cardiovascular: Denies chest pain or palpitations Respiratory/Chest Respiratory/Chest: Denies cough or dyspnea Gastrointestinal Gastrointestinal: Denies abdominal pain, diarrhea, nausea or vomiting Genitourinary Genitourinary ED: Denies dysuria or hematuria Musculoskeletal Musculoskeletal: Denies back pain or neck pain Integumentary Denies abscess or rash Neurologic Neurologic: Reports as per HPI, abnormal speech and paresthesias; Denies headache(s) or weakness Psychiatric Psychiatric: Denies anxiety or suicidal thoughts EXAM Physical Exam Const Vital Signs: 12/22/20 21:01 12/22/20 21:05 12/22/20 21:25 Temperature 97.3 F L Temperature Source Temporal Pulse Rate 60 60 Respiratory Rate 16 18 Blood Pressure 160/67 H 160/67 H Blood Pressure Mean 98 98 Pulse Ox 99 100 Oxygen Delivery Method Room Air Room Air Room Air 12/22/20 21:47 12/22/20 22:26 Temperature Temperature Source Pulse Rate 61 60 Respiratory Rate 18 14 Blood Pressure 155/75 H 136/75 H Blood Pressure Mean 101 95 Pulse Ox 98 99 Oxygen Delivery Method Room Air Room Air Positive well nourished and well developed General Appearance ED: well developed and NAD HEENT Reports moist mucous membranes normocephalic and atraumatic Eyes PERRL and EOMs intact bilaterally Neck full ROM and supple Resp normal respiratory effort and clear to auscultation bilaterally Cardio regular rate, regular rhythm and no murmurs GI non-tender and non-distended Auscultation: normoactive bowel sounds Palpation: soft Back/Spine no CVA tenderness General Back: other FROM Extremity normal to inspection General Extremety ED: Negative for edema, pulses abnormal or tenderness General Extremity: Negative for edema or pulses abnormal Neuro oriented x3, CN's II-XII intact bilaterally and no sensory deficits noted Sensorium / Orientation: awake and alert Motor Exam: strength 5/5 throughout Skin no rashes or lesions noted and no wounds STROKE Vital Signs/Narrative: Vital Signs Temp Pulse Resp BP Pulse Ox 12/22/20 22:26 60 14 136/75 H 99 12/22/20 21:47 61 18 155/75 H 98 12/22/20 21:05 60 18 160/67 H 100 12/22/20 21:01 97.3 F L 60 16 160/67 H 99 Inital Vital Signs reviewed: Yes NIHSS Initial: 1a Level of Consciousness: 0 1b LOC Questions (Score 2 if aphasic/stupor): 0 1c LOC Commands (Only score 1st attempt): 0 2 Best Gaze (If aphasic, use reflexive mvmts.): 0 3 Visual: 0 4 Facial Palsy: 0 5 Motor Arm Right (UN = amputation/fusion): 0 5 Motor Arm Left: 0 6 Motor Leg Right: 0 6 Motor Leg Left: 0 7 Limb ataxia (Only + if out of proportion): 0 8 Sensory (Aphasia/stupor=0 or 1, coma=2): 0 9 Best Language: 0 10 Dysarthria (mute, coma=2, intubated=UN): 0 11 Extinction and Inattention (only scored if +): 0 Total Score: 0 MDM MDM MDM Narrative Medical decision making narrative: As below, stroke work-up is negative. Patient is on Xarelto, explaining his elevated coag studies. I do not think CT angiography is needed since patient is asymptomatic currently and having symptoms of TIA. Admission warranted, discussed with hospitalist for PCU admission for further monitoring and evaluation/testing. Lab Data Attestation: I reviewed the patient's lab results. Labs: Laboratory Results - last 24 hr 12/22/20 12/22/20 12/22/20 21:05 21:05 21:05 WBC 6.5 RBC 4.27 L Hgb 13.5 Hct 41.5 MCV 97.2 H MCH 31.6 MCHC 32.5 RDW Std Deviation 51.2 H RDW Coeff of Jessica 14.3 Plt Count 223 MPV 9.0 Immature Gran % (Auto) 0.300 Neut % (Auto) 73.1 H Lymph % (Auto) 14.6 L [place] % (Auto) 11.3 H Eos % (Auto) 0.2 Baso % (Auto) 0.5 Absolute Neuts (auto) 4.7 Absolute Lymphs (auto) 0.94 Nucleated RBC % 0 PT 23.4 H INR 2.2 APTT 37.6 H Sodium 141 Potassium 4.4 Chloride 106 Carbon Dioxide 32.0 Anion Gap 3 L BUN 24 H Creatinine 1.72 H Estim Creat Clear Calc 39.96 Est GFR (MDRD) Af Amer 51 L Est GFR (MDRD) Non-Af 42 L BUN/Creatinine Ratio 14.0 Glucose 123 H Calcium 9.1 Troponin I < 0.015 Radiography Diagnostic Testing: Radiology Impression Brain CT 12/22/20 21:22 IMPRESSION: 1. No acute findings. 2. Chronic involutional changes of the brain. Electronically Signed: Nikki Rosas MD at 21:46 EDT Tel , Service support , ADDENDUM: 12/22/202157 IMPRESSION: 1. No acute findings. 2. Chronic involutional changes of the brain. N.B. : The above information has been verbally conveyed by Nikki Rosas MD to Dr Lindsey MD, on 12/22/2020 21:51:23 (ET). Electronically Signed: Nikki Rosas MD at 21:46 EDT Tel , Service support , Chest X-Ray 12/22/20 21:30 IMPRESSION: Normal x-ray examination of the chest. Electronically Signed: Nikki Rosas MD at 21:48 EDT Tel , Service support , EKG Initial EKG: Attestation: I personally reviewed and interpreted this EKG as follows: Interpretation: No Acute Injury Pattern and Paced Prior EKG tracings: available for review Prior: Unchanged Stroke Documentation Questions Stroke Team Activated: No (NIH is 0, asymptomatic, so large vessel occlusion unlikely) IV Alteplase (t-PA) Administered: No (Taking Xarelto, and timing) Discharge Plan Triage Chief Complaint: Neuro S/Sx ED Provider: Mehran Portillo Dx/Rx/DC Orders Clinical Impression: TIA (transient ischemic attack) Prescriptions: No Action duloxetine 60 mg capsule,delayed release(DR/EC) 60 mg PO DAILY RF: 0 hydroxychloroquine 200 mg tablet 200 mg PO BID RF: 0 lidocaine HCl 4 % (40 mg/mL) solution 1 ml mucous membrane ONCE PRN (Reason: pain) RF: 0 Breo Ellipta 200-25 mcg/dose blister with device 1 inh INHALATION QDAY Qty: 60 RF: 6 tamsulosin 0.4 mg capsule 0.4 mg PO QHS Qty: 30 RF: 1 aspirin 81 MG tablet 81 mg PO DAILY@1800 RF: 0 nitroglycerin 0.4 mg tablet, sublingual 0.4 mg SUBLINGUAL Q5M PRN (Reason: Chest Pain) Qty: 25 RF: 3 diltiazem HCl 180 mg capsule,extended release 24hr 180 mg PO DAILY Qty: 90 RF: 3 rosuvastatin 20 mg tablet 20 mg PO DAILY Qty: 90 RF: 3 losartan 25 mg tablet See Rx Instructions .ROUTE .COMPLEX Qty: 90 RF: 3 ropinirole 1 mg tablet 1 mg PO QHS Qty: 90 RF: 3 rivaroxaban 20 mg tablet 20 mg PO DAILY Qty: 30 RF: 11 amiodarone 200 mg tablet 200 mg PO DAILY Qty: 90 RF: 3 Primary Care Provider: Reshma Arreola Referrals: Reshma Arreola MD [Primary Care Provider] - Disposition Disposition: Acute Care Hospital [facility]
--- NOTE | 2020-12-22 21:30 | RAD_ITS ---
STUDY: X-RAY CHEST REASON FOR EXAM: Male, 70 years old. Neuro deficit, acute, stroke suspected TECHNIQUE: Single frontal view of the chest. COMPARISON: 12/11/2019. FINDINGS: The lungs are clear and expanded. There is no demonstrated pleural abnormality. Normal size heart. Pacemaker on the right. Wires are intact. Normal mediastinum and paige. Normal visualized pulmonary arteries. Normal visualized aortic arch and descending thoracic aorta. Normal visualized thoracic spine. Normal visualized ribs, clavicles, and shoulders. There is no demonstrated abnormality of the visualized soft tissue structures of the upper abdomen. RAD/Chest 1 View IMPRESSION: Normal x-ray examination of the chest. Electronically Signed: Nikki Rosas MD at 21:48 EDT Tel , Service support ,
[2020-12-22 21:38] LABS: Absolute Lymphocyte Count 0.94 X10^3/uL (0.83-4.51); Absolute Neutrophil Count 4.7 X10^3/uL (2.0-7.7); Basophil# 0.03 X10^3/uL; Basophil% 0.5 % (0-1); Eosinophil# 0.01 X10^3/uL; Eosinophils% 0.2 % (0-5); Hematocrit 41.5 % (40-54); Hemoglobin 13.5 g/dL (13.0-16.5); Lymphocyte # 0.94 X10^3/ul (0.83-4.51); Lymphocyte % 14.6 % (19-41); Mean Corp Hgb Conc 32.5 g/dL (32-36); Mean Corpuscular Hgb 31.6 pg (27.0-32.0); Mean Corpuscular Volume 97.2 fL (80-94); Monocyte# 0.73 X10^3/uL; Monocyte% 11.3 % (0-10); NRBC Flagged by Analyzer 0 % (0-5); Neutrophil # 4.72 X10^3/uL (2.7-7.7); Neutrophil % 73.1 % (47-70); Platelet Count 223 K/mm3 (150-450); RBC Distribution Width CV 14.3 % (11.6-14.6); RBC Distribution Width SD 51.2 fl (35.1-43.9); Red Blood Count 4.27 M/mm3 (4.6-6.2); White Blood Count 6.5 K/mm3 (4.4-11.0)
[2020-12-22 21:43] LABS: International Normalized Ratio 2.2; Prothrombin Time (Protime)PT. 23.4 SECONDS (11.7-14.9)
[2020-12-22 21:44] LABS: Partial Thromboplast Time 37.6 Seconds (24.1-36.2)
[2020-12-22 21:47] VITALS: BP 155/75; PULSE 61; RESP 18; O2SAT 98
[2020-12-22 21:52] LABS: Anion Gap 3 (5-15); BUN 24 mg/dL (7-18); Calcium,Total 9.1 mg/dL (8.5-10.1); Chloride 106 mmol/L (98-107); Creatinine, Serum 1.72 mg/dL (0.70-1.30); EST Glomerular Filtration Rate 42 mL/min (>60); Est Glom Filt Rate - Afr Amer 51 mL/min (>60); Estimated Creatinine Clearance 39.96 ml/min; Glucose 123 mg/dL (74-106); Potassium 4.4 mmol/L (3.5-5.1); Sodium Level 141 mmol/L (136-145)
[2020-12-22 22:26] VITALS: BP 136/75; PULSE 60; RESP 14; O2SAT 99
--- NOTE | 2020-12-22 23:05 | HP.PCM.HOS_ITS ---
HPI - General General Date of Admission: 12/22/20 Chief Complaint: L sided paresthesias, altered speech HPI Narrative The patient is a 70 y/o M w/ PMHx: RA, Anxiety and Depression, Asthma, PAF on Xarelto, HTN, HLD, BRANDON, CAD noted to be a plavix non-responder, Hx CVA w/ carotid stenosis, Hx sick sinus syndrome s/p pacemaker placement, BPH who presents to the [facility] ED on 12/22/20 with history of 2-3 days of initial sparing events however on day of presentation, more recurrent episodes of left facial paresthesias as well as left upper extremity paresthesias and altered speech with associated nausea without emesis, each lasting ~ 10 to 30 minutes with sudden resolution with total ~4 on day of presentation with first starting at ~ 8 am and last prior to ED presentation. In the ED NH stroke scale 0. Patient in the emergency room upon evaluation notes he feels as though he is returned to his baseline. Patient currently believes that his pacer is not MRI compatible. Work-up in the ED included T 97.3, heart rate 60, BP 160/67, respiratory rate 16, 99% on room air, CBC with WBC 6.5, hemoglobin 13.5, platelet 223 without marked shift, PT 23.4, INR 2.2, PTT 37.6, BMP BUN/creatinine 24/1.72, troponin less than 0.015, chest x-ray with no acute cardiopulmonary findings, EKG paced, CT of the brain with no acute intracranial findings with chronic involutional changes. 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COMPLEX #90 tab 08/30/20 [Rx Last Taken Unknown] ropinirole 1 mg tablet 1 mg PO QHS #90 tab 09/04/20 [Rx Last Taken Unknown] rivaroxaban 20 mg tablet 20 mg PO DAILY #30 tab 09/05/20 [Rx Last Taken Unknown] amiodarone 200 mg tablet 200 mg PO DAILY #90 tab 09/19/20 [Rx Last Taken Unknown] duloxetine 60 mg capsule,delayed release 60 mg PO DAILY cap 10/05/20 [History Last Taken Unknown] hydroxychloroquine 200 mg tablet 200 mg PO BID tab 10/05/20 [History Last Taken Unknown] lidocaine HCl 4 % (40 mg/mL) mucosal solution 1 ml MUCOUS MEMBRANE ONCE PRN ml 10/05/20 [History Last Taken Unknown] fluticasone furoate 200 mcg-vilanterol 25 mcg/dose inhalation powder 1 inh INHALATION QDAY #60 ea 10/12/20 [Rx Last Taken Unknown] tamsulosin 0.4 mg capsule 0.4 mg PO QHS #30 cap 12/19/20 [Rx Last Taken Unknown] Allergy/AdvReac Type Severity Reaction Status Date / Time Sulfa (Sulfonamide Allergy Mild Rash Verified 12/22/20 21:12 Antibiotics) clopidogrel [From Plavix] AdvReac Severe Other - Verified 12/22/20 21:12 genetic nonresponder, needs brillinta oxybutynin AdvReac Severe short of Verified 12/22/20 21:12 breath, very dry mouth metoprolol [From Lopressor] AdvReac Mild - Verified 12/22/20 21:12 bronchospasm nystatin AdvReac Unknown Unknown Verified 12/22/20 21:12 MEDICAL TAPE AdvReac Itching Uncoded 12/22/20 21:12 Family History Brother CVA (cerebral vascular accident) Carotid artery stenosis Father CVA (cerebral vascular accident) Carotid artery stenosis Mother Stomach cancer Surgical History H/O eye surgery History of coronary artery stent placement (07/23/13) History of herniorrhaphy History of left heart catheterization (08/02/19) History of spinal surgery Presence of cardiac pacemaker (12/08/12) Social History (Updated 12/22/20 @ 23:[address] Ashlie Crouch MD) household members: spouse Smoking Status: Never smoker alcohol intake: never substance use type: does not use what type of physical activity do you participate in: walking ROS ROS Narrative Admission Review of Systems: CONSTITUTIONAL: No weight loss, fever, chills, weakness or fatigue. HEENT: Eyes: No visual loss, blurred vision, double vision or yellow sclerae. Ears, Nose, Throat: No hearing loss, sneezing, congestion, runny nose or sore throat. SKIN: No rash or itching, lesions, wounds. CARDIOVASCULAR: No chest pain, chest pressure or chest discomfort, palpitations, edema, orthopnea, syncopal events. RESPIRATORY: No shortness of breath, cough or sputum, wheezing, hemoptysis. GASTROINTESTINAL: No anorexia, nausea, vomiting or diarrhea, abdominal pain, melena, BRBPR. GENITOURINARY: No dysuria, frequency, urgency or retention. NEUROLOGICAL: + Paresthesias, altered speech. No headache, dizziness, syncope, paralysis, ataxia, focal weakness, change in bowel or bladder control, seizure. MUSCULOSKELETAL: + muscle, back pain, joint pain or stiffness. HEMATOLOGIC: + anemia, bleeding or bruising. LYMPHATICS: No enlarged nodes. No history of splenectomy. PSYCHIATRIC: + history of depression or anxiety. ENDOCRINOLOGIC: No reports of sweating, cold or heat intolerance. No polyuria or polydipsia. ALLERGIES: + history of asthma, hives, eczema or rhinitis. Vital Signs Vital Signs Vital Signs: 12/22/20 21:01 12/22/20 21:05 12/22/20 21:25 Temperature 97.3 F L Temperature Source Temporal Pulse Rate 60 60 Respiratory Rate 16 18 Blood Pressure 160/67 H 160/67 H Blood Pressure Mean 98 98 Pulse Ox 99 100 Oxygen Delivery Method Room Air Room Air Room Air 12/22/20 21:47 12/22/20 22:26 Temperature Temperature Source Pulse Rate 61 60 Respiratory Rate 18 14 Blood Pressure 155/75 H 136/75 H Blood Pressure Mean 101 95 Pulse Ox 98 99 Oxygen Delivery Method Room Air Room Air Physical Exam Narrative Physical Examination: General: awake, alert, oriented x 3 and cooperative, seated upright in the ED bed in no apparent distress. Skin: normal color, normal turgor, no icterus, no cyanosis except notable various staged ecchymoses to the extremities. HEENT: AT/NC, EOMI, PERRLA, MMM, no obvious carotid bruits or JVD noted. Lungs: CTA bilaterally, moderate effort, mild decrease BL bases, no rales, ronchi or wheezing. Heart: Regular rate and rhythm/paced; no gallop, rub audible. Abdomen: soft, NTTP, ND, normal BS, no HSM. Extremities: no cyanosis, clubbing, or edema. Neurological: patient awake, alert, oriented as noted, cognitive function intact; pupils equally reactive to light and accommodation, cranial nerves II- XII grossly normal, moving all 4 extremities, no focal deficits, strength preserved, sensation equal bilaterally, speech appropriate, fin joanie-nose/grbn-tu-jjqk appropriate, negative Babinski. Psychiatric: affect appears normal, no acute evidence of depressive or anxiety feelings. Lab / Micro Data Result Diagrams: 12/22/20 21:05 12/22/20 21:05 Labs: Laboratory Results - last 24 hr 12/22/20 12/22/20 12/22/20 21:05 21:05 21:05 WBC 6.5 RBC 4.27 L Hgb 13.5 Hct 41.5 MCV 97.2 H MCH 31.6 MCHC 32.5 RDW Std Deviation 51.2 H RDW Coeff of Jessica 14.3 Plt Count 223 MPV 9.0 Immature Gran % (Auto) 0.300 Neut % (Auto) 73.1 H Lymph % (Auto) 14.6 L [place] % (Auto) 11.3 H Eos % (Auto) 0.2 Baso % (Auto) 0.5 Absolute Neuts (auto) 4.7 Absolute Lymphs (auto) 0.94 Nucleated RBC % 0 PT 23.4 H INR 2.2 APTT 37.6 H Sodium 141 Potassium 4.4 Chloride 106 Carbon Dioxide 32.0 Anion Gap 3 L BUN 24 H Creatinine 1.72 H Estim Creat Clear Calc 39.96 Est GFR (MDRD) Af Amer 51 L Est GFR (MDRD) Non-Af 42 L BUN/Creatinine Ratio 14.0 Glucose 123 H Calcium 9.1 Troponin I < 0.[address] 12/22/20 21:22 IMPRESSION: 1. No acute findings. 2. Chronic involutional changes of the brain. Electronically Signed: Nikki Rosas MD at 21:46 EDT Tel , Service support , ADDENDUM: 12/22/202157 IMPRESSION: 1. No acute findings. 2. Chronic involutional changes of the brain. N.B. : The above information has been verbally conveyed by Nikki Rosas MD to Dr Lindsey MD, on 12/22/2020 21:51:23 (ET). Electronically Signed: Nikki Rosas MD at 21:46 EDT Tel , Service support , Chest X-Ray 12/22/20 21:30 IMPRESSION: Normal x-ray examination of the chest. Electronically Signed: Nikki Rosas MD at 21:48 EDT Tel , Service support , Assessment & Plan Assessment/Plan (1) TIA (transient ischemic attack): PLAN: The patient is a 70 y/o M w/ PMHx: RA, Anxiety and Depression, Asthma, PAF on Xarelto, HTN, HLD, BRANDON, CAD noted to be a plavix non-responder, Hx CVA w/ carotid stenosis, Hx sick sinus syndrome s/p pacemaker placement, BPH who presents to the [facility] ED on 12/22/20 with history of 2-3 days of initial sparing events however on day of presentation, more recurrent episodes of left facial paresthesias as well as left upper extremity paresthesias and altered sp eech with associated nausea without emesis, each lasting ~ 10 to 30 minutes with sudden resolution. 1. Left facial, left upper extremity paresthesias with altered speech, status post resolution concerning for TIA/CVA w/ Hx prior CVA w/ carotid disease: Will admit to PCU, patient s/p pacemaker status and he does believe that it is not MRI compatible but may further investigate however at this time likely will need to consider plan for repeat CT head in potentially 24 hours pending further evaluation, obtain carotid US, ECHO, PT/OT/Speech/Nutrition evaluation per protocol. Will consult Neurology for evaluation once further work-up obtained. Will allow permissive HTN, maintain on asa/xarelto, statin w/ AM FLP, fall precautions. Mag, TSH, HgbA1c, FLP pending. 2. Hyperglycemia: Admission glucose 123, mildly elevated, given #1 planning hemoglobin A1c. 3. Hypertension: We will maintain permissive hypertension pending further evaluation as noted #1, will have as needed agents per stroke protocol. 4. Hyperlipidemia: Continue home statin regimen. AM FLP. 5. CAD: Will continue asa, xarelto, not a plavix responder, statin, holding ARB, diltizem given #1, add back once appropriate. 6. PAF: We will continue patient's amiodarone, temporarily hold diltiazem although if necessary may consider resumption but status post pacemaker status additionally, continue home Xarelto. 12/24/2018 echocardiogram with EF 75%, stage I diastolic dysfunction, trivial TVI, RVSP 25 mmHg. 7. Chronic Kidney Disease Stage III: Admission BUN/Cr 24/1.72, baseline renal function 1.3-1.5, repeat BMP in AM. 8. Chronic asthma: Hold home inhaler, ATC duoneb in interim, PRN albuterol, HOB, IS. 9. History of Sick Sinus Syndrome: s/p pacemaker placement. 10. BPH w/ bladder outlet obstruction: We will continue patient home Flomax regimen. Noted 12/20/2020 bladder ultrasound with evidence of mild prostamegaly with findings consistent with bladder outlet obstruction, monitor for urinary retention. 11. Anxiety and depression: We will continue patient home duloxetine regimen. 12. Restless leg syndrome: We will continue patient home Requip regimen. 13. Rheumatoid arthritis: We will continue patient on Plaquenil regimen. 14. BRANDON: CPAP q HS if amenable. 15. DVT prophylaxis: SCDs, continue home xarelto regimen. 16. CODE status: Patient HCPOA and living will both are not set up. Discussed importance especially with his advanced age consideration of setting these items up with his spouse. Recommended if he is interested to discuss this with case management/social work for information. Discussed CODE status at length including difference between FULL code, DNR-CCA and DNR-CC status. Following discussions about the differences in these status, requested Full Code. Advanced Care Planning Face to Face Time: 16 minutes. Visit Charges OBSV E&M: 34447 Initial observation care L3 Procedures Hospitalists Procedures: 81161 Advncd Care Plan 30 Min
[2020-12-22 23:30] VITALS: BP 165/90; PULSE 60; RESP 14; TEMP 36.3; O2SAT 99
[2020-12-22 23:49] LABS: Magnesium 2.2 mg/dL (1.6-2.6)
[2020-12-23] VITALS (19 sets, daily range): BP systolic 141–183; BP diastolic 70–86; PULSE 58–74; RESP 16–18; TEMP 36.3–37; O2SAT 95–99; BMI 24.7
--- NOTE | 2020-12-23 00:30 | ECHOD_ITS ---
Reason For Study: TIA/CVA Procedure This was a 2D Doppler, Color Flow transthoracic echocardiogram. Exam performed portable in patient room. Left Ventricle Normal LV size. The estimated ejection fraction is 70 %. No evidence for diastolic dysfunction. No regional wall motion abnormalities noted. Right Ventricle Normal RV size. There is a pacemaker lead in the right ventricle. Normal systolic function. Atria Normal left atrium. Normal right atrium. No doppler evidence for ASD. Mitral Valve There is no mitral valve stenosis. No mitral valve insufficiency. Tricuspid Valve There is no tricuspid stenosis. Unable to estimate RV systolic pressure due to inadequate jet, pulmonary artery pressure probably normal. Aortic Valve Aortic sclerosis, no stenosis. There is no aortic stenosis. No aortic valve insufficiency. Pulmonic Valve There is no pulmonic valvular stenosis. Trivial pulmonic valve insufficiency. Great Vessels Normal aortic root. Pericardium/Pleural No pericardial effusion. Medication Negative bubble on previous echo. MMode/2D Measurements & Calculations LVIDd: 3.9 cm IVSd: 1.3 cm Ao root diam: 3.7 cm LVIDs: 2.0 cm LVPWd: 1.2 cm RVDd: 3.5 cm FS: 50.4 % LAV(MOD-bp): 45.0 ml LA A4 area: 16.5 cm2 LA dimension(2D): 3.2 cm LAV(MOD-bp) Indexed: 24.3 ml/m2 LAV(MOD-sp2): 50.0 ml LAV(MOD-sp4): 40.1 ml RA A4 area: 16.8 cm2 Doppler Measurements & Calculations MV E max luis: 82.9 cm/sec Lat Peak E' Luis: 12.5 cm/sec Med Peak E' Luis: 7.8 cm/sec MV A max luis: 96.7 cm/sec E/E' lat: 6.6 E/E' med: 10.7 MV E/A: 0.86 Ao V2 max: 171.5 cm/sec LV V1 max: 126.7 cm/sec PA V2 max: 112.5 cm/sec Ao max P.8 mmHg LV V1 max P.4 mmHg ECHO/Echo Complete Interpretation Summary The estimated ejection fraction is 70 %. No evidence for diastolic dysfunction. Ordering Physician: Ashlie Crouch Referring Physician: Reshma Arreola Performed By: Unique Butt RDCS
[2020-12-23] MEDS: 0.9% Normal Saline 1,000 ML 100 ML IV (01:08)
[2020-12-23 06:40] LABS: Absolute Lymphocyte Count 1.21 X10^3/uL (0.83-4.51); Absolute Neutrophil Count 5.7 X10^3/uL (2.0-7.7); Basophil# 0.04 X10^3/uL; Basophil% 0.5 % (0-1); Eosinophil# 0.02 X10^3/uL; Eosinophils% 0.3 % (0-5); Hemoglobin 13.3 g/dL (13.0-16.5); Lymphocyte # 1.21 X10^3/ul (0.83-4.51); Lymphocyte % 15.5 % (19-41); Mean Corp Hgb Conc 32.4 g/dL (32-36); Mean Corpuscular Hgb 31.1 pg (27.0-32.0); Mean Platelet Vol. 9.5 fl (6.2-12.0); Monocyte# 0.78 X10^3/uL; NRBC Flagged by Analyzer 0 % (0-5); Neutrophil # 5.73 X10^3/uL (2.7-7.7); Neutrophil % 73.4 % (47-70); Platelet Count 212 K/mm3 (150-450); RBC Distribution Width CV 14.1 % (11.6-14.6); RBC Distribution Width SD 50.2 fl (35.1-43.9); Red Blood Count 4.27 M/mm3 (4.6-6.2); White Blood Count 7.8 K/mm3 (4.4-11.0)
[2020-12-23] MEDS: Ipratropium/Albuterol Sulfate 3 ML AMPUL.NEB INHALATION ×3 (06:56→18:53)
[2020-12-23 07:20] LABS: ALB/GLOB Ratio 1.3 RATIO (0.9-2.4); AST(SGOT) 29 U/L (15-37); Alanine Aminotransfer ALT/SGPT 41 U/L (16-61); Albumin, Serum 3.4 g/dL (3.2-5.0); Alkaline Phosphatase 79 U/L (45-117); Anion Gap 8 (5-15); BUN 19 mg/dL (7-18); BUN/Creat Ratio 14.3 RATIO (10-20); Calcium,Total 8.5 mg/dL (8.5-10.1); Chloride 108 mmol/L (98-107); Cholesterol 110 mg/dL (200); Creatinine, Serum 1.33 mg/dL (0.70-1.30); EST Glomerular Filtration Rate 57 mL/min (>60); Est Glom Filt Rate - Afr Amer 68 mL/min (>60); Estimated Creatinine Clearance 51.68 ml/min; Globulin 2.7 g/dL (2.2-4.2); Glucose 91 mg/dL (74-106); High Density Lipoprotein 72 mg/dL; Potassium 4.1 mmol/L (3.5-5.1); Protein, Total 6.1 g/dL (6.4-8.2); Sodium Level 141 mmol/L (136-145); Thyroid Stim Hormone (TSH) 2.89 uIU/mL (0.358-3.74); Triglycerides 54 mg/dL; Very Low Density Lipoprotein 11 mg/dL (5-40)
[2020-12-23 08:24] LABS: Hemoglobin A1c 5.5 % (3.8-5.6)
[2020-12-23] MEDS: DULoxetine Hcl 60 MG Capsule PO (09:23)
[2020-12-23] MEDS: Hydroxychloroquine 200 MG Tablet PO ×2 (09:23→21:40)
[2020-12-23] MEDS: Rivaroxaban 20 MG Tablet PO (09:24)
[2020-12-23] MEDS: Amiodarone 200 MG Tablet PO (09:24)
[2020-12-23] MEDS: Aspirin E.C. 81 MG Tablet PO (09:28)
--- NOTE | 2020-12-23 13:19 | TELEMED_ITS ---
[facility] Telemed has confirmed receipt of a request for visit. This document confirms receipt of the order initiating the consult. To find the results of the consultation, please view the patient's reports for the scanned Telemed Consult.
--- NOTE | 2020-12-23 13:47 | PN.HOSP_ITS ---
Documented by User: Yaa Ramirez NP, [employer] BASIS CONSULTANT-C 12/23/20 14:00 Subjective Subjective Patient seen and examined. Paresthesias have resolved. Denies neuro symptoms, focal deficits. Awaiting neurology consult. Objective Data Objective Data Vital Signs: Vital Signs Temp Pulse Resp BP Pulse Ox 97.9 F 66 16 141/77 H 96 12/23/20 12:00 12/23/20 13:00 12/23/20 12:50 12/23/20 12:00 12/23/20 12:00 Oxygen Delivery Method Room Air Weight: 167 lb 8.821 oz Body Mass Index (BMI) 24.7 Intake & Output: Intake and Output for Last 24 Hours 12/21/20 12/22/20 12/23/20 23:59 23:59 23:59 Intake Total 500 / 500 1360 / 1360 Balance 500 / 500 1360 / 1360 Lab / Micro Data Result Diagrams: 12/23/20 05:34 12/23/20 05:34 Labs: Laboratory Results - last 24 hr 12/22/20 12/22/20 12/22/20 21:05 21:05 21:05 WBC 6.5 RBC 4.27 L Hgb 13.5 Hct 41.5 MCV 97.2 H MCH 31.6 MCHC 32.5 RDW Std Deviation 51.2 H RDW Coeff of Jessica 14.3 Plt Count 223 MPV 9.0 Immature Gran % (Auto) 0.300 Neut % (Auto) 73.1 H Lymph % (Auto) 14.6 L [place] % (Auto) 11.3 H Eos % (Auto) 0.2 Baso % (Auto) 0.5 Absolute Neuts (auto) 4.7 Absolute Lymphs (auto) 0.94 Nucleated RBC % 0 PT 23.4 H INR 2.2 APTT 37.6 H Sodium 141 Potassium 4.4 Chloride 106 Carbon Dioxide 32.0 Anion Gap 3 L BUN 24 H Creatinine 1.72 H Estim Creat Clear Calc 39.96 Est GFR (MDRD) Af Amer 51 L Est GFR (MDRD) Non-Af 42 L BUN/Creatinine Ratio 14.0 Glucose 123 H Hemoglobin A1c Calcium 9.1 Magnesium Total Bilirubin AST ALT Alkaline Phosphatase Troponin I < 0.015 Total Protein Albumin Globulin Albumin/Globulin Ratio Triglycerides Cholesterol LDL Cholesterol VLDL Cholesterol HDL Cholesterol TSH 12/22/20 12/23/20 12/23/20 21:05 05:34 05:34 WBC 7.8 RBC 4.27 L Hgb 13.3 Hct 41.0 MCV 96.0 H MCH 31.1 MCHC 32.4 RDW Std Deviation 50.2 H RDW Coeff of Jessica 14.1 Plt Count 212 MPV 9.5 Immature Gran % (Auto) 0.300 Neut % (Auto) 73.4 H Lymph % (Auto) 15.5 L [place] % (Auto) 10.0 Eos % (Auto) 0.3 Baso % (Auto) 0.5 Absolute Neuts (auto) 5.7 Absolute Lymphs (auto) 1.21 Nucleated RBC % 0 PT INR APTT Sodium 141 Potassium 4.1 Chloride 108 H Carbon Dioxide 25.0 Anion Gap 8 BUN 19 H Creatinine 1.33 H Estim Creat Clear Calc 51.68 Est GFR (MDRD) Af Amer 68 Est GFR (MDRD) Non-Af 57 L BUN/Creatinine Ratio 14.3 Glucose 91 Hemoglobin A1c Calcium 8.5 Magnesium 2.2 Total Bilirubin 0.50 AST 29 ALT 41 Alkaline Phosphatase 79 Troponin I Total Protein 6.1 L Albumin 3.4 Globulin 2.7 Albumin/Globulin Ratio 1.3 Triglycerides 54 Cholesterol 110 LDL Cholesterol 27 VLDL Cholesterol 11 HDL Cholesterol 72 TSH 2.89 12/23/20 05:34 WBC RBC Hgb Hct MCV MCH MCHC RDW Std Deviation RDW Coeff of Jessica Plt Count MPV Immature Gran % (Auto) Neut % (Auto) Lymph % (Auto) [place] % (Auto) Eos % (Auto) Baso % (Auto) Absolute Neuts (auto) Absolute Lymphs (auto) Nucleated RBC % PT INR APTT Sodium Potassium Chloride Carbon Dioxide Anion Gap BUN Creatinine Estim Creat Clear Calc Est GFR (MDRD) Af Amer Est GFR (MDRD) Non-Af BUN/Creatinine Ratio Glucose Hemoglobin A1c 5.5 Calcium Magnesium Total Bilirubin AST ALT Alkaline Phosphatase Troponin I Total Protein Albumin Globulin Albumin/Globulin Ratio Triglycerides Cholesterol LDL Cholesterol VLDL Cholesterol HDL Cholesterol TSH Radiography Diagnostic Testing: Radiology Impression Brain CT 12/22/20 21:22 IMPRESSION: 1. No acute findings. 2. Chronic involutional changes of the brain. Electronically Signed: Nikki Rosas MD at 21:46 EDT Tel , Service support , ADDENDUM: 12/22/208 IMPRESSION: 1. No acute findings. 2. Chronic involutional changes of the brain. N.B. : The above information has been verbally conveyed by Nikki Rosas MD to Dr Lindsey MD, on 12/22/2020 21:51:23 (ET). Electronically Signed: Nikki Rosas MD at 21:46 EDT Tel , Service support , Chest X-Ray 12/22/20 21:30 IMPRESSION: Normal x-ray examination of the chest. Electronically Signed: Nikki Rosas MD at 21:48 EDT Tel , Service support , Echocardiogram 12/23/20 00:30 Interpretation Summary The estimated ejection fraction is 70 %. No evidence for diastolic dysfunction. __ Ordering Physician: Ashlie Crouch Referring Physician: Reshma Arreola Performed By: Unique Butt RDCS Physical Exam Const alert, oriented x3 and no apparent distress Orientation / Consciousness: awake, oriented to person, oriented to place and oriented to time HEENT normocephalic and moist oral mucous membranes Eyes PERRL, EOMs intact bilaterally and conjunctivae normal Neck no lymphadenopathy Resp normal respiratory effort and clear to auscultation bilaterally Cardio regular rate, regular rhythm and no murmurs Peripheral Pulses: pulses 2+ throughout GI normal to inspection, nondistended, normoactive bowel sounds, non-tender and non-distended Extremity normal to inspection Skin no rashes or lesions noted Lesions: no lesions Rashes: no rashes Trauma: no lacerations or abrasions Neuro CN's II-XII intact bilaterally, no focal motor deficits, no sensory deficits noted and deep tendon reflexes 2+ bilaterally Psych mental status grossly normal and affect normal Assessment & Plan Assessment/Plan (1) TIA (transient ischemic attack): PLAN: 1. TIA, history of CVA-initial brain CT without acute findings. On aspirin, statin, Xarelto at baseline. Echocardiogram demonstrates an EF of 70%. Symptoms have resolved. SOC neurology consult placed. 2. Paroxysmal atrial fibrillation-on amiodarone, Cardizem, Xarelto. 3. Hypertension-stable, continue home medication regimen 4. Hyperlipidemia-continue statin 5. CAD-on aspirin, statin, Xarelto. 6. Chronic kidney disease stage IIIa-at baseline. 7. Chronic asthma-no exacerbation. 8. History of sick sinus syndrome status post pacemaker placement 9. BPH with history of bladder outlet obstruction-on Flomax. 10. Anxiety/depression-duloxetine. 11. Restless leg syndrome-on Requip. 12. Rheumatoid arthritis-on Plaquenil. 13. BRANDON-continue home Pap regimen. DVT prophylaxis-Xarelto This patient was seen by ANABEL Sterling under the supervision of Dr. Hawkins. Documented by User: Dr. Rajat Hawkins MD 12/23/20 15:17 Subjective Subjective Patient had left upper extremity numbness which is resolved. No focal weakness. He further said he had a stroke about 7 years ago and left upper extremity weakness which resolved after 3 years. History of A. fib on triple anticoagulants. Patient has pacemaker. Objective Data Lab / Micro Data Result Diagrams: 12/23/20 05:34 12/23/20 05:34 Physical Exam Narrative General: Alert, Oriented x3, Cooperative HEENT: Atraumatic, PERRLA, EOMI, Normocephalic Oral: No Gingival or Mucosal Lesions/ Ulcerations Neck: Supple, No JVD, Negative Carotid Bruits Lungs: Air entry diminished in bilateral lung bases. No crepitation/rhonchi Cardiovascular: Paced rhythm on registered nurse cardiac telemetry. Normal S1, Normal S2, No murmurs Abdomen: Bowel Sounds Present, Soft, Non Tender, Non-Distended : No renal angle tenderness. No suprapubic tenderness. Extremities: No edema, Capillary Refill Less than 3 Seconds Skin: No rashes, No breakdown Musculoskeletal: No Tenderness to Palpation of Joints or Extremities Neurological: NIH stroke scale 0. Cranial nerves II-XII grossly intact, Deep Tendon Reflexes 2+/4 and Symmetrical, Neuro grossly intact Psych/Mental Status: Normal Affect, Appropriate. Assessment & Plan Assessment/Plan (1) TIA (transient ischemic attack): PLAN: This patient was seen in conjunction with Yaa MEDINA. I have independently interviewed and examined the patient and reviewed pertinent history, examination findings, laboratory and plan of management. I have reviewed the note and agree with the documented findings with the few additional points. In brief, patient is admitted for upper extremity numbness that has resolved. History consistent with TIA. Patient has chronic A. fib and sick sinus syndrome status post pacemaker. Not candidate for MRI. Echo EF 70%. No Doppler evidence of ASD. Patient already on baby aspirin, Xarelto and high intensity statin, atorvastatin. SOC consult ordered. Patient has multiple other comorbidities as listed above. I have discussed my assessment with Yaa MEDINA and orders have been reviewed. Visit Charges OBSV E&M: 40636 Initial observation care L2
--- NOTE | 2020-12-23 15:26 | CT_ITS ---
STUDY: CTA HEAD AND NECK WITH CONTRAST REASON FOR EXAM: Male, 70 years old. TIA RADIATION DOSAGE (If Supplied By Facility): CTDIvol = ( 30.86 ) mGy, DLP = ( 1522.45 ) mGycm TECHNIQUE: CT angiography was performed with a multi-detector CT scanner. Data acquisition was obtained from the skull base through the vertex following intravenous administration of IV 100mL Isovue-370. MIP images were reconstructed from the axial data set. Post-processing of the angiographic images was performed, with multiplanar reformation and 3D reconstruction. Individualized dose optimization techniques were used for this CT. COMPARISON: MRA neck 08/08/2012. FINDINGS: Normal bilateral petrous carotid arteries. Mild atherosclerotic calcification of the cavernous carotid arteries without stenosis. Normal anterior cerebral arteries. There is non-visualization of the anterior communicating artery (ACOM). Normal M1 and M2 segments of the middle cerebral arteries, with normal M1 bifurcations. There is non-visualization of the right posterior communicating artery (PCOM). There is non-visualization of the left posterior communicating artery (PCOM). Normal bilateral vertebral arteries. Normal basilar artery with a normal basilar bifurcation. The visualized bilateral superior cerebellar (SCA) arteries are normal. Normal bilateral P1, P2 and visualized P3 segments of the posterior cerebral arteries. There is no demonstrated aneurysm of the [place]. AORTIC ARCH: Normal visualized aortic arch. Normal origins of the brachiocephalic, left common carotid, and left subclavian arteries. RIGHT CAROTID ARTERIES: Normal right common carotid artery (CCA). Atherosclerotic calcification of the carotid bulb without stenosis. Atherosclerotic calcification of the right internal carotid (ICA) artery without stenosis. Normal visualized cervical portion of the right internal carotid artery. Normal origin of the right external carotid artery (ECA). LEFT CAROTID ARTERIES: Normal left common carotid artery (CCA). Atherosclerotic calcification of the carotid bulb without stenosis. Atherosclerotic calcification of the left internal carotid (ICA) artery with mild stenosis of approximately 50%. This is new compared to 2013. Normal visualized cervical portion of the left internal carotid artery. Normal origin of the left external carotid artery (ECA). VERTEBRAL ARTERIES: Atherosclerotic calcification at the origin of the right vertebral artery. Vertebral arteries are otherwise unremarkable. CT/CTA Head AND Neck W/ Contrast IMPRESSION: Normal CTA Head with contrast. Mild stenosis of the proximal left ICA. Atherosclerotic calcification as noted above. Electronically Signed: Nikki Rosas MD at 17:45 EDT Tel , Service support ,
--- NOTE | 2020-12-23 17:25 | CASEMGMT ---
Addendum entered by Enrique Lynn 12/23/20 17:28: Below conversation was @ [id number]. Original Note: RN CORBY NOTE: Per Yaa Ramirez NP, pt to be transferred to tertiary facility and inquiring what hospital pt/ would prefer. Pt has MCR and can transfer to tertiary hosp of their choice. RN CM to room. Pt is out of room for testing. in room. Introduced self and role of RODRIGUEZ TAVAREZ. states she and her were discussing transfer to [facility] prior to him going for testing and states okay to look into pt going to [facility]. CAROL Mon, made aware. Jorden FRAGOSON RODRIGUEZ CM
[2020-12-23] MEDS: Atorvastatin Calcium 40 MG Tablet PO (21:40)
[2020-12-23] MEDS: Tamsulosin HCl 0.4 MG Capsule PO (21:40)
[2020-12-23] MEDS: Pramipexole Di-HCl 0.5 MG Tablet PO (21:40)
[2020-12-24] VITALS (12 sets, daily range): BP systolic 119–161; BP diastolic 55–82; PULSE 67–74; RESP 16–18; TEMP 36.5–36.9; O2SAT 97–100
[2020-12-24] MEDS: Ipratropium/Albuterol Sulfate 3 ML AMPUL.NEB INHALATION ×3 (06:52→19:11)
[2020-12-24] MEDS: DULoxetine Hcl 60 MG Capsule PO (08:31)
[2020-12-24] MEDS: Amiodarone 200 MG Tablet PO (08:31)
[2020-12-24] MEDS: Hydroxychloroquine 200 MG Tablet PO ×2 (08:32→21:35)
[2020-12-24] MEDS: Rivaroxaban 20 MG Tablet PO (08:32)
--- NOTE | 2020-12-24 11:50 | PN.HOSP_ITS ---
Documented by User: Yaa Ramirez NP, [employer] L[employer] GRINDER-C 12/24/20 11:59 Subjective Subjective Patient seen and examined. No acute events overnight. Denies further left- sided paresthesias, speech changes. Awaiting bed at [facility] for continuous EEG monitoring. Objective Data Objective Data Vital Signs: Vital Signs Temp Pulse Resp BP Pulse Ox 98.0 F 72 16 161/82 H 97 12/24/20 08:00 12/24/20 08:00 12/24/20 08:00 12/24/20 08:00 12/24/20 08:00 Oxygen Delivery Method Room Air Weight: 172 lb 6.424 oz Body Mass Index (BMI) 24.7 Intake & Output: Intake and Output for Last 24 Hours 12/22/20 12/23/20 12/24/20 23:59 23:59 23:59 Intake Total 500 / 500 2079 / 2079 222 / 222 Balance 500 / 500 2079 / 2079 222 / 222 Lab / Micro Data Result Diagrams: 12/23/20 05:34 12/23/20 05:34 Radiography Diagnostic Testing: Radiology Impression Echocardiogram 12/23/20 00:30 Interpretation Summary The estimated ejection fraction is 70 %. No evidence for diastolic dysfunction. Ordering Physician: Ashlie Crouch Referring Physician: Reshma Arreola Performed By: Unique Butt, RDYULIA Head/Neck CTA 12/23/20 15:26 IMPRESSION: Normal CTA Head with contrast. Mild stenosis of the proximal left ICA. Atherosclerotic calcification as noted above. Electronically Signed: Nikki Rosas MD at 17:45 EDT Tel , Service support , Physical Exam Const alert, oriented x3 and no apparent distress Orientation / Consciousness: awake, oriented to person, oriented to place and oriented to time HEENT normocephalic and moist oral mucous membranes Eyes PERRL, EOMs intact bilaterally and conjunctivae normal Neck no lymphadenopathy Resp normal respiratory effort and clear to auscultation bilaterally Cardio regular rate, regular rhythm and no murmurs Peripheral Pulses: pulses 2+ throughout GI normal to inspection, nondistended, normoactive bowel sounds, non-tender and non-distended Extremity normal to inspection Skin no rashes or lesions noted Lesions: no lesions Rashes: no rashes Trauma: no lacerations or abrasions Neuro CN's II-XII intact bilaterally, no focal motor deficits, no sensory deficits noted and deep tendon reflexes 2+ bilaterally Psych mental status grossly normal and affect normal Assessment & Plan Assessment/Plan (1) Complex partial seizure: (2) TIA (transient ischemic attack): PLAN: 1. TIA versus complex seizures-[facility] [place] neurology recommending transfer to tertiary facility for 24-hour continuous EEG monitoring. Awaiting bed at [facility], patient to transfer on 12/25/2020 when EEG lab opens. 2. History of CVA-initial brain CT without acute findings. On aspirin, statin, Xarelto at baseline. Echocardiogram demonstrates an EF of 70%. Symptoms have resolved. Acute CVA ruled out. CTA of head and neck with mild stenosis of the proximal left ICA, no significant stenosis. 3. Paroxysmal atrial fibrillation-on amiodarone, Cardizem, Xarelto. 4. Hypertension-stable, continue home medication regimen 5. Hyperlipidemia-continue statin 6. CAD-on aspirin, statin, Xarelto. 7. Chronic kidney disease stage IIIa-at baseline. 8. Chronic asthma-no exacerbation. 9. History of sick sinus syndrome status post pacemaker placement 10. BPH with history of bladder outlet obstruction-on Flomax. 11. Anxiety/depression-duloxetine. 12. Restless leg syndrome-on Requip. 13. Rheumatoid arthritis-on Plaquenil. 14. BRANDON-continue home Pap regimen. DVT prophylaxis-Xarelto Discharge planning: Awaiting bed at [facility] for continuous EEG monitoring/neuro eval. This patient was seen by ANABEL Sterling under the supervision of Dr. Hawkins. Documented by User: Dr. Rajat Hawkins MD 12/24/20 12:16 Subjective Subjective Seen and examined. SOC neurologist recommended CT angiogram of head and neck and 24-hour EEG monitoring which patient is aware of. No new symptoms. Left upper extremity paresthesia resolved. Objective Data Lab / Micro Data Result Diagrams: 12/23/20 05:34 12/23/20 05:34 Physical Exam Narrative General: Alert, Oriented x3, Cooperative HEENT: Atraumatic, PERRLA, EOMI, Normocephalic Oral: No Gingival or Mucosal Lesions/ Ulcerations Neck: Supple, No JVD, Negative Carotid Bruits Lungs: Air entry diminished in bilateral lung bases. No crepitation/rhonchi Cardiovascular: Paced rhythm on hatchery laborer. Normal S1, Normal S2, No murmurs Abdomen: Bowel Sounds Present, Soft, Non Tender, Non-Distended : No renal angle tenderness. No suprapubic tenderness. Extremities: No edema, Capillary Refill Less than 3 Seconds Skin: No rashes, No breakdown Musculoskeletal: No Tenderness to Palpation of Joints or Extremities Neurological: NIH stroke scale 0. Cranial nerves II-XII grossly intact, Deep Tendon Reflexes 2+/4 and Symmetrical, Neuro grossly intact Psych/Mental Status: Normal Affect, Appropriate. Assessment & Plan Assessment/Plan (1) Complex partial seizure: (2) TIA (transient ischemic attack): PLAN: ? This patient was seen in conjunction with EYEGLASS LENS GRINDERYaa.? I have independently interviewed and examined the patient and reviewed pertinent history, examination findings, laboratory and plan of management.? I have? reviewed the note and agree with the documented findings with the few? additiona l points. In brief, patient is admitted for upper extremity numbness that has resolved.? History consistent with TIA.? Patient has chronic A. fib and sick sinus syndrome status post pacemaker.? Not candidate for MRI.? Echo EF 70%.? No Doppler evidence of ASD.? Patient already on baby aspirin, Xarelto and high intensity statin, atorvastatin.? Patient had CT angiogram of head and neck which did not show hemodynamically significant stenosis or aneurysm. SOC neurologist recommended 24-hour video EEG monitoring. Currently, echocardiogram was not apparent. Patient does not have symptoms. He denies prior history of epilepsy, tumor but he had fall on the back and had big hematoma with laceration on the back of head but no skull fracture as per patient. Patient has multiple other comorbidities as listed above. I have discussed my assessment with EYEGLASS LENS GRINDERYaa and orders have been reviewed. Visit Charges Inpatient E&M: 36798 Subs Hosp L2
[2020-12-24] MEDS: Aspirin E.C. 81 MG Tablet PO (17:03)
[2020-12-24] MEDS: Pramipexole Di-HCl 0.5 MG Tablet PO (21:34)
[2020-12-24] MEDS: Atorvastatin Calcium 40 MG Tablet PO (21:35)
[2020-12-24] MEDS: Tamsulosin HCl 0.4 MG Capsule PO (21:35)
[2020-12-25 02:40] VITALS: BP 138/62; PULSE 63; RESP 15; TEMP 36.4; O2SAT 97
[2020-12-25 02:59] VITALS: PULSE 63
[2020-12-25 07:00] VITALS: PULSE 64
[2020-12-25] MEDS: Ipratropium/Albuterol Sulfate 3 ML AMPUL.NEB INHALATION (07:17)
[2020-12-25 07:20] VITALS: PULSE 80; RESP 18; O2SAT 98
[2020-12-25] MEDS: DULoxetine Hcl 60 MG Capsule PO (08:38)
[2020-12-25] MEDS: Amiodarone 200 MG Tablet PO (08:38)
[2020-12-25] MEDS: Rivaroxaban 20 MG Tablet PO (08:38)
[2020-12-25] MEDS: Hydroxychloroquine 200 MG Tablet PO (08:38)
[2020-12-25 08:40] VITALS: BP 128/69; PULSE 65; RESP 15; TEMP 36.6; O2SAT 97
--- NOTE | 2020-12-25 09:07 | NURSING ---
this RN called report to EMU, spoke with RODRIGUEZ Deluna. Transport to be here within the half hour. Patient has updated that he is leaving soon.
[2020-12-25] MEDS: Acetaminophen 325 MG Tablet 650 MG PO (09:13)
--- NOTE | 2020-12-25 09:58 | DS.PCM_ITS ---
Documented by User: Yaa Ramirez NP, MANUFACTURING TECHNOLOGY ANALYST-C 12/25/20 10:01 Providers Date of Admission: 12/23/20 Date of Discharge: 12/25/20 Primary Care Physician: Dr. Reshma Arreola MD Reason For Visit: TIA/CVA Diagnosis Discharge Diagnosis (1) Complex partial seizure: Status: Acute Code(s): G40.209 - Localization-related (focal) (partial) symptomatic epilepsy and epileptic syndromes with complex partial seizures, not intractable, without status epilepticus (2) TIA (transient ischemic attack): Status: Acute Code(s): G45.9 - Transient cerebral ischemic attack, unspecified Medications at Discharge Home Medications nitroglycerin 0.4 mg sublingual tablet 0.4 mg SUBLINGUAL Q5M PRN #25 tab 02/11/19 aspirin 81 mg PO DAILY@1800 07/29/19 diltiazem HCl 180 mg capsule,extended release 24 hr 180 mg PO DAILY #90 cap 06/19/20 rosuvastatin 20 mg tablet 20 mg PO DAILY #90 tab 08/14/20 losartan 25 mg tablet See Rx Instructions .ROUTE .COMPLEX #90 tab 08/30/20 ropinirole 1 mg tablet 1 mg PO QHS #90 tab 09/04/20 rivaroxaban 20 mg tablet 20 mg PO DAILY #30 tab 09/05/20 amiodarone 200 mg tablet 200 mg PO DAILY #90 tab 09/19/20 duloxetine 60 mg capsule,delayed release 60 mg PO DAILY cap 10/05/20 hydroxychloroquine 200 mg tablet 200 mg PO BID tab 10/05/20 lidocaine HCl 4 % (40 mg/mL) mucosal solution 1 ml MUCOUS MEMBRANE ONCE PRN ml 10/05/20 fluticasone furoate 200 mcg-vilanterol 25 mcg/dose inhalation powder 1 inh INHALATION QDAY #60 ea 10/12/20 tamsulosin 0.4 mg capsule 0.4 mg PO QHS #30 cap 12/19/20 Hospital Course Operations None Procedures 2-D Echocardiogram Summary of Care Provided Minutes Spent on Discharge: 35 Hospital Course: Patient is a 70-year-old male admitted 12/22/2020 due to left- sided paresthesias and altered speech. 1. TIA versus complex seizures-[facility] [place] [facility] neurology recommending transfer to tertiary facility for 24-hour continuous EEG monitoring. [facility] at discharge for continuous EEG monitoring. 2. History of CVA-initial brain CT without acute findings. On aspirin, statin, Xarelto at baseline. Echocardiogram demonstrates an EF of 70%. Symptoms have resolved. Acute CVA ruled out. CTA of head and neck with mild stenosis of the proximal left ICA, no significant stenosis. 3. Paroxysmal atrial fibrillation-on amiodarone, Cardizem, Xarelto. 4. Hypertension-stable, continue home medication regimen 5. Hyperlipidemia-continue statin 6. CAD-on aspirin, statin, Xarelto. 7. Chronic kidney disease stage IIIa-at baseline. 8. Chronic asthma-no exacerbation. 9. History of sick sinus syndrome status post pacemaker placement 10. BPH with history of bladder outlet obstruction-on Flomax. 11. Anxiety/depression-duloxetine. 12. Restless leg syndrome-on Requip. 13. Rheumatoid arthritis-on Plaquenil. 14. BRANDON-continue home Pap regimen. Physical Exam Const alert, oriented x3 and no apparent distress Orientation / Consciousness: awake, oriented to person, oriented to place and oriented to time HEENT normocephalic and moist oral mucous membranes Eyes PERRL, EOMs intact bilaterally and conjunctivae normal Neck no lymphadenopathy Resp normal respiratory effort and clear to auscultation bilaterally Cardio regular rate, regular rhythm and no murmurs Peripheral Pulses: pulses 2+ throughout GI normal to inspection, nondistended, normoactive bowel sounds, non-tender and non-distended Extremity normal to inspection Skin no rashes or lesions noted Lesions: no lesions Rashes: no rashes Trauma: no lacerations or abrasions Neuro CN's II-XII intact bilaterally, no focal motor deficits, no sensory deficits noted and deep tendon reflexes 2+ bilaterally Psych mental status grossly normal and affect normal Patient seen and examined prior to discharge. Physical assessment as noted above. Patient is stable for discharge with follow up recommendations as noted above. This patient was seen by ANABEL Sterling under the supervision of Dr. Bernadine newell. ABG / Lab / Microbiology Data Result Diagrams: 12/23/20 05:34 12/23/20 05:34 Meaningful Use Info Meaningful Use Diagnoses (Choose all that apply): None applicable Discharge Plan Admission Admit Date/Time: 12/23/20 16:55 Attending Provider: Rajat Hawkins Primary Care Provider: Reshma Arreola Instructions Additional Instructions / Restrictions: Patient Problems: Altered Health Status related to Hospitalization Patient Goals: *Optimal Level of Health *Keep Appointments *Medication Compliance *Remain Safe Discharge Orders/Prescriptions Prescriptions: No Action duloxetine 60 mg capsule,delayed release(DR/EC) 60 mg PO DAILY RF: 0 hydroxychloroquine 200 mg tablet 200 mg PO BID RF: 0 lidocaine HCl 4 % (40 mg/mL) solution 1 ml mucous membrane ONCE PRN (Reason: pain) RF: 0 Breo Ellipta 200-25 mcg/dose blister with device 1 inh INHALATION QDAY Qty: 60 RF: 6 tamsulosin 0.4 mg capsule 0.4 mg PO QHS Qty: 30 RF: 1 aspirin 81 MG tablet 81 mg PO DAILY@1800 RF: 0 nitroglycerin 0.4 mg tablet, sublingual 0.4 mg SUBLINGUAL Q5M PRN (Reason: Chest Pain) Qty: 25 RF: 3 diltiazem HCl 180 mg capsule,extended release 24hr 180 mg PO DAILY Qty: 90 RF: 3 rosuvastatin 20 mg tablet 20 mg PO DAILY Qty: 90 RF: 3 losartan 25 mg tablet See Rx Instructions .ROUTE .COMPLEX Qty: 90 RF: 3 ropinirole 1 mg tablet 1 mg PO QHS Qty: 90 RF: 3 rivaroxaban 20 mg tablet 20 mg PO DAILY Qty: 30 RF: 11 amiodarone 200 mg tablet 200 mg PO DAILY Qty: 90 RF: 3 Referrals / Follow Up: Reshma Arreola MD [Primary Care Provider] - Disposition Discharge Orders: Discharge Patient (Routine); Ordered 12/25/20 Ordered By: Yaa Ramirez MANUFACTURING TECHNOLOGY ANALYST Documented by User: Dr. Rajat Hawkins MD 12/25/20 14:36 Providers Date of Admission: 12/23/20 Reason For Visit: TIA/CVA Medications at Discharge Home Medications nitroglycerin 0.4 mg sublingual tablet 0.4 mg SUBLINGUAL Q5M PRN #25 tab 02/11/19 aspirin 81 mg PO DAILY@1800 07/29/19 diltiazem HCl 180 mg capsule,extended release 24 hr 180 mg PO DAILY #90 cap 06/19/20 rosuvastatin 20 mg tablet 20 mg PO DAILY #90 tab 08/14/20 losartan 25 mg tablet See Rx Instructions .ROUTE .COMPLEX #90 tab 08/30/20 ropinirole 1 mg tablet 1 mg PO QHS #90 tab 09/04/20 rivaroxaban 20 mg tablet 20 mg PO DAILY #30 tab 09/05/20 amiodarone 200 mg tablet 200 mg PO DAILY #90 tab 09/19/20 duloxetine 60 mg capsule,delayed release 60 mg PO DAILY cap 10/05/20 hydroxychloroquine 200 mg tablet 200 mg PO BID tab 10/05/20 lidocaine HCl 4 % (40 mg/mL) mucosal solution 1 ml MUCOUS MEMBRANE ONCE PRN ml 10/05/20 fluticasone furoate 200 mcg-vilanterol 25 mcg/dose inhalation powder 1 inh INHALATION QDAY #60 ea 10/12/20 tamsulosin 0.4 mg capsule 0.4 mg PO QHS #30 cap 12/19/20 Hospital Course Summary of Care Provided Hospital Course: ?? This patient was seen in conjunction with Yaa MEDINA.? I have independently interviewed and examined the patient and reviewed pertinent history, examination findings, laboratory and plan of management.? I have? reviewed the note and agree with the documented findings with the few? additional points. In brief, patient is admitted for upper extremity numbness that has resolved.? History consistent with TIA.? Patient has chronic A. fib and sick sinus syndrome status post pacemaker.? Not candidate for MRI.? Echo EF 70%.? No Doppler evidence of ASD.? Patient already on baby aspirin, Xarelto and high intensity statin, atorvastatin.? Patient had CT angiogram of head and neck which did not show hemodynamically significant stenosis or aneurysm.? [facility] neurologist recommended 24-hour video EEG monitoring.? 2D echo shows EF 70% with no Doppler evidence of ASD. Patient does not have symptoms.? He denies prior history of epilepsy, tumor but he had fall on the back and had big hematoma with laceration on the back of head but no skull fracture as per patient. Patient has multiple other comorbidities as listed above. I have discussed my assessment with Yaa MEDINA and orders have been reviewed. Physical Exam Narrative Seen and examined. Patient is in the process of being transferred to [facility]. General: Alert, Oriented x3, Cooperative HEENT: Atraumatic, PERRLA, EOMI, Normocephalic Oral: No Gingival or Mucosal Lesions/ Ulcerations Neck: Supple, No JVD, Negative Carotid Bruits Lungs: Air entry diminished in bilateral lung bases. No crepitation/rhonchi Cardiovascular: Paced rhythm on night monitor. Normal S1, Normal S2, No murmurs Abdomen: Bowel Sounds Present, Soft, Non Tender, Non-Distended : No renal angle tenderness. No suprapubic tenderness. Extremities: No edema, Capillary Refill Less than 3 Seconds Skin: No rashes, No breakdown Musculoskeletal: No Tenderness to Palpation of Joints or Extremities Neurological: NIH stroke scale 0. Cranial nerves II-XII grossly intact, Deep Tendon Reflexes 2+/4 and Symmetrical, Neuro grossly intact Psych/Mental Status: Normal Affect, Appropriate. ABG / Lab / Microbiology Data Result Diagrams: 12/23/20 05:34 12/23/20 05:34 Discharge Plan Admission Admit Date/Time: 12/23/20 16:55 Attending Provider: Rajat Hawkins Primary Care Provider: Reshma Arreola Instructions Additional Instructions / Restrictions: Patient Problems: Altered Health Status related to Hospitalization Patient Goals: *Optimal Level of Health *Keep Appointments *Medication Compliance *Remain Safe Discharge Orders/Prescriptions Prescriptions: No Action duloxetine 60 mg capsule,delayed release(DR/EC) 60 mg PO DAILY RF: 0 hydroxychloroquine 200 mg tablet 200 mg PO BID RF: 0 lidocaine HCl 4 % (40 mg/mL) solution 1 ml mucous membrane ONCE PRN (Reason: pain) RF: 0 Breo Ellipta 200-25 mcg/dose blister with device 1 inh INHALATION QDAY Qty: 60 RF: 6 tamsulosin 0.4 mg capsule 0.4 mg PO QHS Qty: 30 RF: 1 aspirin 81 MG tablet 81 mg PO DAILY@1800 RF: 0 nitroglycerin 0.4 mg tablet, sublingual 0.4 mg SUBLINGUAL Q5M PRN (Reason: Chest Pain) Qty: 25 RF: 3 diltiazem HCl 180 mg capsule,extended release 24hr 180 mg PO DAILY Qty: 90 RF: 3 rosuvastatin 20 mg tablet 20 mg PO DAILY Qty: 90 RF: 3 losartan 25 mg tablet See Rx Instructions .ROUTE .COMPLEX Qty: 90 RF: 3 ropinirole 1 mg tablet 1 mg PO QHS Qty: 90 RF: 3 rivaroxaban 20 mg tablet 20 mg PO DAILY Qty: 30 RF: 11 amiodarone 200 mg tablet 200 mg PO DAILY Qty: 90 RF: 3 Referrals / Follow Up: Reshma Arreola MD [Primary Care Provider] - Disposition Discharge Orders: Discharge Patient (Routine); Ordered 12/25/20 Ordered By: Yaa Ramirez NP Visit Charges Inpatient E&M: 93397 Disch Hosp
--- NOTE | 2020-12-25 11:00 | CASEMGMT ---
SW did not complete PHQ 9 as per chart they are thinking it is a complicated Seizure. Patient is being transferred to a tertiary care facility for a 24 hour EEG. Nikki ELLER
== END 2020-12-25 09:29 | disposition short-term general hospital (02) | DRG 69 ==
LOC: ED 23:16 → PCU 12-23 00:07
PROVIDERS: Admitting Provider Family Medicine; Emergency Provider Emergency Medicine; PCP Internal Medicine; Visit Provider Internal Medicine
DX: G45.9 Transient cerebral ischemic attack, unspecified (principal); G40.209 Localization-related (focal) (partial) symptomatic epilepsy and epileptic syndromes with complex partial seizures, not intractable, without status epilepticus; R47.81 Slurred speech; M19.90 Unspecified osteoarthritis, unspecified site; N40.1 Benign prostatic hyperplasia with lower urinary tract symptoms; R33.8 Other retention of urine; E78.5 Hyperlipidemia, unspecified; Z86.73 Personal history of transient ischemic attack (TIA), and cerebral infarction without residual deficits; I25.10 Atherosclerotic heart disease of native coronary artery without angina pectoris; I49.5 Sick sinus syndrome; I48.0 Paroxysmal atrial fibrillation; I12.9 Hypertensive chronic kidney disease with stage 1 through stage 4 chronic kidney disease, or unspecified chronic kidney disease; N18.31 Chronic kidney disease, stage 3a; J45.909 Unspecified asthma, uncomplicated; F32.9 Major depressive disorder, single episode, unspecified; F41.9 Anxiety disorder, unspecified; G47.33 Obstructive sleep apnea (adult) (pediatric); G25.81 Restless legs syndrome; M06.9 Rheumatoid arthritis, unspecified; Z95.0 Presence of cardiac pacemaker; I25.2 Old myocardial infarction; Z79.01 Long term (current) use of anticoagulants; Z79.899 Other long term (current) drug therapy; Z80.0 Family history of malignant neoplasm of digestive organs; Z82.3 Family history of stroke; Z88.2 Allergy status to sulfonamides; Z95.5 Presence of coronary angioplasty implant and graft
CPT/HCPCS: 23350; 36415; 70450; 70496; 70498; 71045; 73040; 73201; 76770; 80048; 80053; 80061; 83036; 83735; 84443; 84484; 85025; 85610; 85730; 92610; 93005; 93306; 94640; 97802; 99251; 99284; J7030; J7040; Q9967; A4216; G0463

== ENCOUNTER → 2021-01-26 15:45 | Outpatient (CLI) | payer MEDICARE, OTHER, SELFPAY ==
[2021-01-15 10:20] VITALS: BMI 25.5
[2021-01-26 17:30] LABS: Albumin, Serum 3.7 g/dL (3.2-5.0)
[2021-01-26 17:38] LABS: Vitamin B12 344 pg/mL (211-911)
== END ==
PROVIDERS: PCP Internal Medicine; Visit Provider Specialist
DX: Z01.812 Encounter for preprocedural laboratory examination (principal); E53.8 Deficiency of other specified B group vitamins
CPT/HCPCS: 36415; 82040; 82607

== ENCOUNTER 2021-02-03 10:56 | Emergency (ER) | payer MEDICARE, OTHER, SELFPAY ==
[2021-01-15 10:20] VITALS: BMI 25.5
[2021-02-03 10:57] VITALS: BP 115/61; PULSE 60; RESP 16; TEMP 35.7; O2SAT 99; BMI 25.1
--- NOTE | 2021-02-03 11:23 | EDS_ITS ---
HPI History of Present Illness Chief Complaint: Upper Extremity Injury Detail of Chief Complaint: Bruising status post recent right shoulder prosthesis on . Informant: patient and spouse/S.O. Onset/Context/Timing Onset: Yesterday Current Severity: Mild Maximum Severity: Mild Narrative Narrative: 7-year-old male history of A. fib, OR, cardiac stent, CVA and hypertension on Xarelto. On had a right shoulder replacement by Dr. Curtis Israel at [facility]. He has developed bruising on his right bicep and upper arm and chest since his surgery. He denies any falls or trauma. He denies any other symptoms. Prior similar symptoms: No Recent Illness/Hospitalization: No PFSH [facility] Medical History Arthritis Asthma Atherosclerosis of coronary artery of [place] heart without angina pectoris Axillary mass B12 deficiency BPH (benign prostatic hyperplasia) Candidiasis of mouth Carotid artery stenosis Chronic kidney disease (CKD) COPD (chronic obstructive pulmonary disease) CPAP (continuous positive airway pressure) dependence CVA (cerebral vascular accident) DDD (degenerative disc disease) Essential (primary) hypertension HLD (hyperlipidemia) Non-smoker Old myocardial infarction BRANDON (obstructive sleep apnea) 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 Rheumatoid arthritis Segmental and somatic dysfunction of cervical region Segmental and somatic dysfunction of lumbar region Segmental and somatic dysfunction of pelvic region Segmental and somatic dysfunction of thoracic region Sick sinus syndrome Sinus bradycardia Stroke/cerebrovascular accident TIA (transient ischemic attack) Urinary retention Gfrwy-Nqcgljaxn-Qyflq (WPW) syndrome Home Medications nitroglycerin 0.4 mg sublingual tablet 0.4 mg SUBLINGUAL Q5M PRN #25 tab 02/11/19 [Rx Last Taken 07/27/19] aspirin 81 mg PO DAILY@1800 07/29/19 [History Last Taken 12/22/20 19:30] diltiazem HCl 180 mg capsule,extended release 24 hr 180 mg PO DAILY #90 cap 06/19/20 [Rx Last Taken 12/22/20 08:00] rosuvastatin 20 mg tablet 20 mg PO DAILY #90 tab 08/14/20 [Rx Last Taken 12/22/20 08:00] losartan 25 mg tablet See Rx Instructions .ROUTE .COMPLEX #90 tab 08/30/20 [Rx Last Taken 12/22/20 08:00] ropinirole 1 mg tablet 1 mg PO QHS #90 tab 09/04/20 [Rx Last Taken 12/22/20 19:30] rivaroxaban 20 mg tablet 20 mg PO DAILY #30 tab 09/05/20 [Rx Last Taken 12/22/20 19:30] amiodarone 200 mg tablet 200 mg PO DAILY #90 tab 09/19/20 [Rx Last Taken 12/22/20 08:00] duloxetine 60 mg capsule,delayed release 60 mg PO DAILY cap 10/05/20 [History Last Taken 12/22/20 08:00] hydroxychloroquine 200 mg tablet 200 mg PO BID tab 10/05/20 [History Last Taken 12/22/20 19:30] lidocaine HCl 4 % (40 mg/mL) mucosal solution 1 ml MUCOUS MEMBRANE ONCE PRN ml 10/05/20 [History Last Taken Unknown] fluticasone furoate 200 mcg-vilanterol 25 mcg/dose inhalation powder 1 inh INHALATION QDAY #60 ea 10/12/20 [Rx Last Taken 12/22/20 08:00] cyanocobalamin (vitamin B-12) 1,000 mcg tablet ea PO 01/02/21 [History Last Taken Unknown] Allergy/AdvReac Type Severity Reaction Status Date / Time Sulfa (Sulfonamide Allergy Mild Rash Verified 02/03/21 10:57 Antibiotics) clopidogrel [From Plavix] AdvReac Severe Other - Verified 02/03/21 10:57 genetic nonresponder, needs brillinta oxybutynin AdvReac Severe short of Verified 02/03/21 10:57 breath, very dry mouth metoprolol [From Lopressor] AdvReac Mild - Verified 02/03/21 10:57 bronchospasm nystatin AdvReac Unknown Unknown Verified 02/03/21 10:57 MEDICAL TAPE AdvReac Itching Uncoded 02/03/21 10:57 Family History Brother CVA (cerebral vascular accident) Carotid artery stenosis Father CVA (cerebral vascular accident) Carotid artery stenosis Mother Stomach cancer Surgical History H/O eye surgery History of coronary artery stent placement (07/23/13) History of herniorrhaphy History of left heart catheterization (08/02/19) History of spinal surgery Presence of cardiac pacemaker (12/08/12) Social History household members: spouse Smoking Status: Never smoker alcohol intake: never substance use type: does not use what type of physical activity do you participate in: walking ROS ROS ED ROS Narrative Patient denies recent illness. Review of Systems ROS Unobtainable: Denies due to encephalopathy Constitutional Constitutional ED: Denies frequent falls Eyes Eyes: Denies change in vision ENT ENT ED: Denies ear pain Cardiovascular Cardiovascular: Denies chest pain Respiratory/Chest Respiratory/Chest: Denies dyspnea Gastrointestinal Gastrointestinal: Denies abdominal pain Genitourinary Genitourinary ED: Denies dysuria Musculoskeletal Musculoskeletal: Denies myalgias Integumentary Denies rash Neurologic Neurologic: Denies headache(s) Psychiatric Psychiatric: Denies depression Endocrine Endocrinology: Denies polyuria Hematologic/Lymphatic Hematologic/Lymphatic: Denies easy bruising Allergic/Immunologic Allergic/Immunologic ED: Denies urticaria EXAM Physical Exam Narrative Exam Narrative: Well-appearing older male vital signs stable afebrile. No distress. Bruising and hematoma along the medial aspect of his right bicep and tricep done of his elbow. Recent surgery in the right shoulder bandage. No signs of infection. Limited range of motion as expected. Also bruising along his right chest wall with mild swelling. Lungs are clear. Heart regular rhythm. Abdomen soft. Const Vital Signs: 02/03/21 10:57 Temperature 96.2 F L Temperature Source Temporal Pulse Rate 60 Respiratory Rate 16 Blood Pressure 115/61 Blood Pressure Mean 79 Pulse Ox 99 Oxygen Delivery Method Room Air Positive well nourished and well developed General Appearance ED: well developed HEENT Reports moist mucous membranes normocephalic; Negative for atraumatic, trauma or tenderness Eyes PERRL and EOMs intact bilaterally Neck full ROM and supple Chest Wall Chest Narrative: Right chest wall bruising mild swelling. Resp normal respiratory effort and clear to auscultation bilaterally Cardio regular rate and no murmurs GI non-tender, non-distended and no masses GI Narrative: Mild bruising epigastric region. Auscultation: normoactive bowel sounds Palpation: soft Back/Spine no CVA tenderness Extremity normal to inspection Extremity Narrative: Status post right shoulder surgery. There is bruising on the shoulder medial bicep tricep region down to the elbow. Right hand is neurovascular intact with strong radial pulse. Spout Worker strength and sensation. He has limited but range of motion to the right shoulder. He also has bruising along the right chest wall and epigastric region. Psych mental status grossly normal Skin Skin Narrative: Bruising and hematoma. Lesions: no lesions Rashes: no rashes MDM MDM MDM Narrative Medical decision making narrative: Status post right shoulder prosthesis. On Xarelto. Has bruising hematoma along the right upper arm chest wall and epigastric region. More than I expect for this surgery if he was not on blood thinners given that he is on Xarelto this is probably normal. I will check a CBC. Lab Data Attestation: I reviewed the patient's lab results. Labs: I reviewed the patient's lab results. His BMP was unremarkable CBC showed hemoglobin 10.3 and previously was 13.3 several months ago. I do think that the drop from the bleeding in the soft tissue of his right upper arm chest and upper abdomen. PT/INR was unremarkable 1 I did not expect that to be significantly changed because him he is on Xarelto not Coumadin. I spoke to Dr. Rajeev Israel the patient's orthopedic physician. They will follow him up next week. On repeat exam the patient's bruising is no worse from his initial presentation. Radiography Chest X-Ray - ED: 1 View, Read by ED Physician, Normal, Lungs, Mediastinum, Bony Structures and No Acute Disease Discharge Plan Triage Chief Complaint: Upper Extremity Injury ED Provider: Anthony Mendez Dx/Rx/DC Orders Clinical Impression: Hematoma Instructions: ED Hematoma Prescriptions: No Action duloxetine 60 mg capsule,delayed release(DR/EC) 60 mg PO DAILY RF: 0 hydroxychloroquine 200 mg tablet 200 mg PO BID RF: 0 lidocaine HCl 4 % (40 mg/mL) solution 1 ml mucous membrane ONCE PRN (Reason: pain) RF: 0 Breo Ellipta 200-25 mcg/dose blister with device 1 inh INHALATION QDAY Qty: 60 RF: 6 cyanocobalamin (vitamin B-12) 1,000 mcg tablet PO RF: 0 aspirin 81 MG tablet 81 mg PO DAILY@1800 RF: 0 nitroglycerin 0.4 mg tablet, sublingual 0.4 mg SUBLINGUAL Q5M PRN (Reason: Chest Pain) Qty: 25 RF: 3 diltiazem HCl 180 mg capsule,extended release 24hr 180 mg PO DAILY Qty: 90 RF: 3 rosuvastatin 20 mg tablet 20 mg PO DAILY Qty: 90 RF: 3 losartan 25 mg tablet See Rx Instructions .ROUTE .COMPLEX Qty: 90 RF: 3 ropinirole 1 mg tablet 1 mg PO QHS Qty: 90 RF: 3 rivaroxaban 20 mg tablet 20 mg PO DAILY Qty: 30 RF: 11 amiodarone 200 mg tablet 200 mg PO DAILY Qty: 90 RF: 3 Primary Care Provider: Reshma Arreola Referrals: Reshma Arreola MD [Primary Care Provider] - Curtis Israel MD [STAFF PHYSICIAN] - As soon as possible Activity Restrictions/Additional Instructions: Call and follow-up with your orthopedic surgeon Dr. Shantanu Israel as soon as possible I spoke to him today and he thought the earliest he could see in the office to be Friday. Rest and relax this . Ice to your arm in your chest wall to help decrease the bleeding. Hold your aspirin the next 2 days. You can continue your Xarelto at this time. Return to the emergency department if bruising is a lot worse. It will take weeks to resolve. Disposition Disposition: Home, Self Care
[2021-02-03 11:36] LABS: Hematocrit 32.2 % (40-54); Hemoglobin 10.3 g/dL (13.0-16.5); Mean Corpuscular Hgb 30.9 pg (27.0-32.0); Mean Corpuscular Volume 96.7 fL (80-94); Mean Platelet Vol. 9.6 fl (6.2-12.0); Platelet Count 190 K/mm3 (150-450); RBC Distribution Width CV 14.6 % (11.6-14.6); RBC Distribution Width SD 51.9 fl (35.1-43.9); Red Blood Count 3.33 M/mm3 (4.6-6.2); White Blood Count 5.4 K/mm3 (4.4-11.0)
[2021-02-03 11:44] LABS: International Normalized Ratio 1.5; Prothrombin Time (Protime)PT. 17.3 SECONDS (11.7-14.9)
[2021-02-03 12:07] LABS: Anion Gap 4 (5-15); BUN 22 mg/dL (7-18); BUN/Creat Ratio 18.2 RATIO (10-20); Calcium,Total 8.4 mg/dL (8.5-10.1); Chloride 105 mmol/L (98-107); Creatinine, Serum 1.21 mg/dL (0.70-1.30); EST Glomerular Filtration Rate 63 mL/min (>60); Est Glom Filt Rate - Afr Amer 76 mL/min (>60); Estimated Creatinine Clearance 56.81 ml/min; Glucose 89 mg/dL (74-106); Potassium 4.3 mmol/L (3.5-5.1); Sodium Level 140 mmol/L (136-145)
[2021-02-03 13:13] VITALS: BP 139/76; PULSE 60; RESP 15
== END 2021-02-03 13:14 | disposition home or self-care (01) ==
PROVIDERS: Emergency Provider Emergency Medicine; PCP Internal Medicine
DX: S40.012A Contusion of left shoulder, initial encounter (principal); S20.211A Contusion of right front wall of thorax, initial encounter; Y83.8 Other surgical procedures as the cause of abnormal reaction of the patient, or of later complication, without mention of misadventure at the time of the procedure; I25.10 Atherosclerotic heart disease of native coronary artery without angina pectoris; J44.9 Chronic obstructive pulmonary disease, unspecified; N18.9 Chronic kidney disease, unspecified; I12.9 Hypertensive chronic kidney disease with stage 1 through stage 4 chronic kidney disease, or unspecified chronic kidney disease; E78.5 Hyperlipidemia, unspecified; G47.33 Obstructive sleep apnea (adult) (pediatric); M06.9 Rheumatoid arthritis, unspecified; I25.2 Old myocardial infarction; Z86.73 Personal history of transient ischemic attack (TIA), and cerebral infarction without residual deficits; I48.91 Unspecified atrial fibrillation; N40.1 Benign prostatic hyperplasia with lower urinary tract symptoms; R33.8 Other retention of urine; Z79.01 Long term (current) use of anticoagulants; Z79.82 Long term (current) use of aspirin; Z95.5 Presence of coronary angioplasty implant and graft; Z79.899 Other long term (current) drug therapy; Z96.611 Presence of right artificial shoulder joint
CPT/HCPCS: 36415; 80048; 85027; 85610; 99282

== ENCOUNTER → 2021-03-21 07:02 | Outpatient (CLI) | payer MEDICARE, OTHER, SELFPAY ==
[2021-03-21 07:31] LABS: Absolute Lymphocyte Count 0.98 X10^3/uL (0.83-4.51); Absolute Neutrophil Count 3.2 X10^3/uL (2.0-7.7); Basophil# 0.03 X10^3/uL; Basophil% 0.6 % (0-1); Eosinophil# 0.03 X10^3/uL; Eosinophils% 0.6 % (0-5); Hemoglobin 12.3 g/dL (13.0-16.5); Lymphocyte # 0.98 X10^3/ul (0.83-4.51); Lymphocyte % 20.1 % (19-41); Mean Corp Hgb Conc 32.4 g/dL (32-36); Mean Corpuscular Hgb 30.5 pg (27.0-32.0); Mean Corpuscular Volume 94.3 fL (80-94); Mean Platelet Vol. 9.2 fl (6.2-12.0); Monocyte# 0.61 X10^3/uL; Monocyte% 12.5 % (0-10); NRBC Flagged by Analyzer 0 % (0-5); Neutrophil # 3.21 X10^3/uL (2.7-7.7); Neutrophil % 65.8 % (47-70); Platelet Count 236 K/mm3 (150-450); RBC Distribution Width CV 14.1 % (11.6-14.6); RBC Distribution Width SD 49.2 fl (35.1-43.9); Red Blood Count 4.03 M/mm3 (4.6-6.2); White Blood Count 4.9 K/mm3 (4.4-11.0)
[2021-03-21 08:37] LABS: ALB/GLOB Ratio 1.3 RATIO (0.9-2.4); AST(SGOT) 22 U/L (15-37); Alanine Aminotransfer ALT/SGPT 32 U/L (16-61); Albumin, Serum 3.6 g/dL (3.2-5.0); Alkaline Phosphatase 90 U/L (45-117); Anion Gap 5 (5-15); BUN 20 mg/dL (7-18); Calcium,Total 9.1 mg/dL (8.5-10.1); Chloride 107 mmol/L (98-107); Creatinine, Serum 1.33 mg/dL (0.70-1.30); EST Glomerular Filtration Rate 56 mL/min (>60); Est Glom Filt Rate - Afr Amer 68 mL/min (>60); Globulin 2.8 g/dL (2.2-4.2); Glucose 97 mg/dL (74-106); Potassium 3.9 mmol/L (3.5-5.1); Protein, Total 6.4 g/dL (6.4-8.2); Sodium Level 141 mmol/L (136-145)
== END ==
PROVIDERS: PCP Internal Medicine; Referring Provider Internal Medicine Rheumatology; Visit Provider Internal Medicine Rheumatology
DX: M06.4 Inflammatory polyarthropathy (principal); Z79.899 Other long term (current) drug therapy; M21.40 Flat foot [pes planus] (acquired), unspecified foot; M47.892 Other spondylosis, cervical region; M47.894 Other spondylosis, thoracic region; M47.897 Other spondylosis, lumbosacral region; I10 Essential (primary) hypertension; I25.10 Atherosclerotic heart disease of native coronary artery without angina pectoris; E78.5 Hyperlipidemia, unspecified; I48.91 Unspecified atrial fibrillation; G47.33 Obstructive sleep apnea (adult) (pediatric)
CPT/HCPCS: 36415; 80053; 85025

== ENCOUNTER → 2021-05-23 07:32 | Outpatient (CLI) | payer MEDICARE, OTHER, SELFPAY ==
[2021-05-23 08:10] LABS: AST(SGOT) 15 U/L (15-37); Alanine Aminotransfer ALT/SGPT 27 U/L (16-61); Albumin, Serum 3.1 g/dL (3.2-5.0); Alkaline Phosphatase 93 U/L (45-117); Bilirubin, Direct 0.19 mg/dL (0.00-0.30); Cholesterol 113 mg/dL (200); Globulin 3.4 g/dL (2.2-4.2); High Density Lipoprotein 76 mg/dL; Protein, Total 6.5 g/dL (6.4-8.2); Triglycerides 44 mg/dL; Very Low Density Lipoprotein 9 mg/dL (5-40)
== END ==
PROVIDERS: PCP Internal Medicine; Referring Provider Internal Medicine Cardiovascular Disease; Visit Provider Internal Medicine Cardiovascular Disease
DX: E78.00 Pure hypercholesterolemia, unspecified (principal)
CPT/HCPCS: 36415; 80061; 80076

== ENCOUNTER → 2021-06-29 15:19 | Outpatient (CLI) | payer MEDICARE, OTHER, SELFPAY ==
[2021-06-29 15:50] LABS: Absolute Lymphocyte Count 0.99 X10^3/uL (0.83-4.51); Absolute Neutrophil Count 6.2 X10^3/uL (2.0-7.7); Basophil# 0.06 X10^3/uL; Basophil% 0.7 % (0-1); Eosinophil# 0.02 X10^3/uL; Eosinophils% 0.2 % (0-5); Hematocrit 34.4 % (40-54); Lymphocyte # 0.99 X10^3/ul (0.83-4.51); Lymphocyte % 12.3 % (19-41); Mean Corpuscular Hgb 27.8 pg (27.0-32.0); Mean Corpuscular Volume 86.9 fL (80-94); Mean Platelet Vol. 9.6 fl (6.2-12.0); Monocyte# 0.72 X10^3/uL; NRBC Flagged by Analyzer 0 % (0-5); Neutrophil # 6.22 X10^3/uL (2.7-7.7); Neutrophil % 77.6 % (47-70); Platelet Count 231 K/mm3 (150-450); RBC Distribution Width CV 15.9 % (11.6-14.6); RBC Distribution Width SD 50.1 fl (35.1-43.9); Red Blood Count 3.96 M/mm3 (4.6-6.2)
[2021-06-29 16:19] LABS: ALB/GLOB Ratio 1.1 RATIO (0.9-2.4); AST(SGOT) 23 U/L (15-37); Alanine Aminotransfer ALT/SGPT 34 U/L (16-61); Albumin, Serum 3.4 g/dL (3.2-5.0); Alkaline Phosphatase 101 U/L (45-117); Anion Gap 4 (5-15); BUN 30 mg/dL (7-18); BUN/Creat Ratio 16.2 RATIO (10-20); Chloride 108 mmol/L (98-107); Creatinine, Serum 1.85 mg/dL (0.70-1.30); EST Glomerular Filtration Rate 39 mL/min (>60); Est Glom Filt Rate - Afr Amer 47 mL/min (>60); Glucose 105 mg/dL (74-106); Potassium 4.4 mmol/L (3.5-5.1); Protein, Total 6.4 g/dL (6.4-8.2); Sodium Level 140 mmol/L (136-145)
[2021-06-29 17:21] LABS: Vitamin B12 294 pg/mL (211-911)
== END ==
PROVIDERS: PCP Internal Medicine; Visit Provider Internal Medicine
DX: E53.8 Deficiency of other specified B group vitamins (principal); I25.10 Atherosclerotic heart disease of native coronary artery without angina pectoris; G47.33 Obstructive sleep apnea (adult) (pediatric); N18.9 Chronic kidney disease, unspecified; I48.0 Paroxysmal atrial fibrillation
CPT/HCPCS: 36415; 80053; 82607; 85025

== ENCOUNTER → 2021-07-11 08:03 | Outpatient (CLI) | payer MEDICARE, OTHER, SELFPAY ==
[2021-07-11 13:02] LABS: Anion Gap 7 (5-15); BUN 18 mg/dL (7-18); BUN/Creat Ratio 13.1 RATIO (10-20); Calcium,Total 9.3 mg/dL (8.5-10.1); Chloride 107 mmol/L (98-107); Creatinine, Serum 1.37 mg/dL (0.70-1.30); EST Glomerular Filtration Rate 55 mL/min (>60); Est Glom Filt Rate - Afr Amer 66 mL/min (>60); Glucose 78 mg/dL (74-106); Potassium 3.9 mmol/L (3.5-5.1); Sodium Level 143 mmol/L (136-145)
== END ==
PROVIDERS: PCP Internal Medicine; Visit Provider Internal Medicine
DX: N18.9 Chronic kidney disease, unspecified (principal)
CPT/HCPCS: 36415; 80048

== ENCOUNTER 2021-08-15 15:25 | Outpatient (CLI) | payer MEDICARE, SELFPAY ==
--- NOTE | 2021-08-15 15:56 | VDLE_ITS ---
Reason For Study: Swelling RIGHT LEFT CFV is compressible, spontaneous, phasic, GSV is normal. competent and demonstrates normal CFV is compressible, spontaneous, phasic, augmentation. competent, and demonstrates normal Procedure augmentation. This is a venous duplex using B-mode, color FV is compressible, spontaneous, phasic, flow and spectral Doppler. competent and demonstrates normal Exam performed in department. augmentation. A preliminary report was called and/or faxed POP V is compressible, spontaneous, phasic, to [place]. competent and demonstrates normal augmentation. T/P Trunk is compressible. PTV is compressible. LT PerV is compressible. VL/Venous Duplex US, Unilateral Interpretation Summary There is no evidence of left lower extremity deep vein thrombosis. Left great s aphenous vein appears patent and compressible segmentally. Normal flow patterns right common femoral vein Ordering Physician: Reshma Arreola Referring Physician: Reshma Arreola Performed By: Juli Gale RVT
== END 2021-08-15 23:59 | disposition short-term general hospital (02) ==
LOC: CVS 15:26
PROVIDERS: PCP Internal Medicine; Referring Provider Internal Medicine; Visit Provider Internal Medicine
DX: M79.89 Other specified soft tissue disorders (principal)
CPT/HCPCS: 93971

== ENCOUNTER 2021-10-11 14:56 | Outpatient (CLI) | payer MEDICARE, SELFPAY ==
--- NOTE | 2021-10-11 15:05 | RAD_ITS ---
STUDY: X-RAY CHEST REASON FOR EXAM: Male, 71 years old. snf current use of amiodarone. SOB for about a month. occasional sharp pain. has a pacemaker Amiodarone and dyspnea TECHNIQUE: XR Chest 2 Views COMPARISON: 12.22.20 FINDINGS: There is a right -sided pacemaker battery pack. Total right shoulder arthroplasty. Normal size heart. Normal mediastinum and paige. Normal visualized pulmonary arteries. There is atherosclerotic calcification of the aortic arch with tortuosity. There are diffuse degenerative changes of the visualized thoracic spine. There is degenerative osteoarthritis of the bilateral shoulders. There is no demonstrated abnormality of the visualized soft tissue structures of the upper abdomen. RAD/Chest PA and Lateral IMPRESSION: There are no acute findings. Electronically Signed: Diogenes De Jesus MD at 16:00 EST ,
[2021-10-11 15:53] LABS: Absolute Lymphocyte Count 1.21 X10^3/uL (0.83-4.51); Absolute Neutrophil Count 6.8 X10^3/uL (2.0-7.7); Basophil# 0.06 X10^3/uL; Basophil% 0.7 % (0-1); Eosinophil# 0.04 X10^3/uL; Eosinophils% 0.4 % (0-5); Hematocrit 38.2 % (40-54); Hemoglobin 12.4 g/dL (13.0-16.5); Lymphocyte # 1.21 X10^3/ul (0.83-4.51); Lymphocyte % 13.4 % (19-41); Mean Corp Hgb Conc 32.5 g/dL (32-36); Mean Corpuscular Hgb 28.3 pg (27.0-32.0); Mean Corpuscular Volume 87.2 fL (80-94); Mean Platelet Vol. 9.4 fl (6.2-12.0); Monocyte# 0.93 X10^3/uL; Monocyte% 10.3 % (0-10); NRBC Flagged by Analyzer 0 % (0-5); Neutrophil # 6.77 X10^3/uL (2.7-7.7); Neutrophil % 74.6 % (47-70); Platelet Count 310 K/mm3 (150-450); RBC Distribution Width CV 16.9 % (11.6-14.6); RBC Distribution Width SD 53.8 fl (35.1-43.9); Red Blood Count 4.38 M/mm3 (4.6-6.2); White Blood Count 9.1 K/mm3 (4.4-11.0)
[2021-10-11 16:42] LABS: BNP,B-Type NATRIURETIC PEPTIDE 17.9 pg/mL (0-100)
[2021-10-11 16:53] LABS: Anion Gap 3 (5-15); BUN 27 mg/dL (7-18); BUN/Creat Ratio 18.2 RATIO (10-20); Calcium,Total 9.1 mg/dL (8.5-10.1); Chloride 106 mmol/L (98-107); Creatinine, Serum 1.48 mg/dL (0.70-1.30); EST Glomerular Filtration Rate 50 mL/min (>60); Est Glom Filt Rate - Afr Amer 60 mL/min (>60); Glucose 103 mg/dL (74-106); Potassium 4.4 mmol/L (3.5-5.1); Sodium Level 139 mmol/L (136-145); Thyroid Stim Hormone (TSH) 4.35 uIU/mL (0.358-3.74)
== END 2021-10-11 23:59 | disposition home or self-care (01) ==
PROVIDERS: PCP Internal Medicine; Referring Provider Nurse Practitioner Gerontology; Visit Provider Nurse Practitioner Gerontology
DX: R06.00 Dyspnea, unspecified (principal); Z79.899 Other long term (current) drug therapy
CPT/HCPCS: 36415; 71046; 80048; 83880; 84439; 84443; 85025

== ENCOUNTER 2021-10-29 06:53 | Outpatient (CLI) | payer MEDICARE, SELFPAY ==
--- NOTE | 2021-10-30 10:56 | STRESSREP_ITS ---
Stress Test Report Pharmacologic myocardial perfusion stress test. 79-year-old male with a history of chest pain and dyspnea. Stress protocol: Resting EKG demonstrates sinus rhythm with a rate of 62 bpm premature atrial complexes are noted. Resting blood pressure is 142/78 mmHg. 0.4 mg of regadenoson was infused per usual protocol followed by rapid intravenous saline flush injection continuous EKG monitoring was performed. The maximum heart rate attained was 71 bpm which was 47% of max impact at heart rate the maximum workload was 1 metabolic equivalent. At rest there were no ST or T wave changes noted to suggest abnormal flow reserve and at peak infusion nonspecific ST changes were noted with did not meet the criteria for ischemia. No clinical a ngina was noted. The peak blood pressure was 142/78 mmHg. Myocardial perfusion protocol. 10.9 mCi of technetium 99m sestamibi was injected at rest. 0.4 mg of regadenoson was infused per usual protocol. At peak infusion 33.6 mCi of technetium 99m sestamibi was injected stress images were obtained stress and rest images were reconstructed and compared in the short axis vertical long horizontal long axis. Gated images were also obtained for Perfusion SPECT analysis: Review of the stress images demonstrate normal uptake of tracer noted in all areas of the myocardium. The resting images similarly demonstrate normal uptake of tracer noted in all areas of the myocardium. No previous infarct is noted. Gated SPECT analysis: The gated ejection fraction is 67%. Conclusion: Normal pharmacologic myocardial perfusion stress test. Preserved ejection fraction.
== END 2021-10-29 23:59 | disposition home or self-care (01) ==
LOC: CVS 06:55
PROVIDERS: PCP Internal Medicine; Referring Provider Nurse Practitioner Gerontology; Visit Provider Nurse Practitioner Gerontology
DX: R07.9 Chest pain, unspecified (principal)
CPT/HCPCS: 78452; 93017; A9500; A4216; J2785

== ENCOUNTER 2021-11-08 10:40 | Outpatient (CLI) | payer MEDICARE, SELFPAY ==
--- NOTE | 2021-11-08 10:42 | ECHOD_ITS ---
Reason For Study: DYSPNEA Procedure This was a 2D Doppler, Color Flow transthoracic echocardiogram. Exam performed in department. Left Ventricle Normal LV size. Mild concentric left ventricular hypertrophy. Left ventricular systolic function is normal. The estimated ejection fraction is 55 %. Stage 1 diastolic dysfunction. No regional wall motion abnormalities noted. Right Ventricle Normal RV size. ICD or pacer leads identified within the right ventricle. Normal systolic function. Pulmonic Valve Normal pulmonic valve. Great Vessels Mild to moderately dilated aortic root. The pulmonary artery is normal size. Normal inferior vena cava. Pericardium/Pleural No pericardial effusion. MMode/2D Measurements & Calculations LVIDd: 4.1 cm IVSd: 1.3 cm Ao root diam: 3.9 cm LVIDs: 2.3 cm LVPWd: 1.3 cm RVDd: 4.1 cm FS: 44.4 % LAV(MOD-bp): 40.1 ml LVAd ap4: 34.5 cm2 LVAd ap2: 36.1 cm2 LAV(MOD-bp) Indexed: 20.8 ml/m2 LVLd ap4: 9.0 cm LVLd ap2: 9.4 cm LAV(MOD-sp2): 41.1 ml EDV(MOD-sp4): 108.4 ml EDV(MOD-sp2): 117.0 ml LAV(MOD-sp4): 37.7 ml EDV(sp4-el): 112.4 ml EDV(sp2-el): 118.2 ml LVAs ap4: 19.3 cm2 LVAs ap2: 19.0 cm2 LVLs ap4: 7.7 cm LVLs ap2: 7.5 cm ESV(MOD-sp4): 43.2 ml ESV(MOD-sp2): 43.0 ml ESV(sp4-el): 41.5 ml ESV(sp2-el): 40.9 ml EF(MOD-sp4): 60.2 % EF(MOD-sp2): 63.2 % EF(sp4-el): 63.1 % SV(MOD-sp4): 65.2 ml SV(MOD-sp2): 74.0 ml SV(sp4-el): 71.0 ml LA A4 area: 15.8 cm2 LA dimension(2D): 3.3 cm RA A4 area: 21.0 cm2 Doppler Measurements & Calculations MV E max luis: 65.8 cm/sec Lat Peak E' Luis: 8.0 cm/sec Med Peak E' Luis: 10.0 cm/sec MV A max luis: 81.6 cm/sec E/E' lat: 8.3 E/E' med: 6.6 MV E/A: 0.81 Ao V2 max: 137.5 cm/sec LV V1 max: 91.9 cm/sec Ao max P.6 mmHg LV V1 max P.4 mmHg ECHO/Echo Complete Interpretation Summary Normal LV size. Left ventricular systolic function is normal. The estimated ejection fraction is 55 %. Mild to moderately dilated aortic root. Mild concentric left ventricular hypertrophy. Stage 1 diastolic dysfunction. Ordering Physician: Kerry Hilliard Referring Physician: Reshma Arreola M.D. Performed By: Yuliana Parekh RCS
== END 2021-11-08 23:59 | disposition home or self-care (01) ==
LOC: CVS 10:42
PROVIDERS: PCP Internal Medicine; Referring Provider Nurse Practitioner Gerontology; Visit Provider Nurse Practitioner Gerontology
DX: R07.9 Chest pain, unspecified (principal)
CPT/HCPCS: 93306

== ENCOUNTER → 2021-11-22 | Outpatient (CLI) | payer MEDICARE, SELFPAY ==
[2021-11-22 10:26] LABS: AST(SGOT) 22 U/L (15-37); Alanine Aminotransfer ALT/SGPT 29 U/L (16-61); Albumin, Serum 3.6 g/dL (3.2-5.0); Alkaline Phosphatase 87 U/L (45-117); Bilirubin, Direct 0.18 mg/dL (0.00-0.30); Cholesterol 117 mg/dL (200); Globulin 3.2 g/dL (2.2-4.2); High Density Lipoprotein 59 mg/dL; Protein, Total 6.8 g/dL (6.4-8.2); Triglycerides 53 mg/dL; Very Low Density Lipoprotein 11 mg/dL (5-40)
[2021-11-22 10:32] LABS: T4 Free Direct 1.19 ng/dL (0.76-1.46); Thyroid Stim Hormone (TSH) 3.69 uIU/mL (0.358-3.74)
== END | disposition home or self-care (01) ==
LOC: LAB 08:40
PROVIDERS: Nurse Practitioner Gerontology; PCP Internal Medicine; Referring Provider Internal Medicine Cardiovascular Disease; Visit Provider Internal Medicine Cardiovascular Disease
DX: E78.00 Pure hypercholesterolemia, unspecified (principal); E78.5 Hyperlipidemia, unspecified; R06.00 Dyspnea, unspecified; Z79.899 Other long term (current) drug therapy
CPT/HCPCS: 36415; 80061; 80076; 84439; 84443

== ENCOUNTER 2021-11-27 20:22 | Emergency (ER) | payer MEDICARE, SELFPAY ==
[2021-11-27 20:23] VITALS: BP 166/89; PULSE 63; RESP 15; TEMP 35.7; O2SAT 95; BMI 24.3
--- NOTE | 2021-11-27 20:50 | EDS_ITS ---
HPI History of Present Illness Chief Complaint: Edema Informant: patient Onset/Context/Timing Onset: Days Context: Gradual Onset Timing: Continuous Current Severity: Mild Maximum Severity: Mild Narrative Narrative: 1-year-old male history of A. fib and cardiac disease on Xarelto. States that he was doing a lot of clean up around pine trees over the weekend. Last 48 hours he developed swelling to his forehead. Also slightly on the back of his neck. No prior history. He denies any trauma. No headache. No trouble breathing or swallowing. Prior similar symptoms: No Recent Illness/Hospitalization: No PFSH PFSH Medical History Arthritis Asthma Atherosclerosis of coronary artery of [place] heart without angina pectoris Axillary mass B12 deficiency BPH (benign prostatic hyperplasia) Candidiasis of mouth Carotid artery stenosis Chronic kidney disease (CKD) Complex partial seizure COPD (chronic obstructive pulmonary disease) CPAP (continuous positive airway pressure) dependence DDD (degenerative disc disease) Essential (primary) hypertension History of CVA (cerebrovascular accident) (08/2012) HLD (hyperlipidemia) Knee pain with internal derangement determined by x-ray Non-smoker Old myocardial infarction BRANDON (obstructive sleep apnea) 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 Rheumatoid arthritis Segmental and somatic dysfunction of cervical region Segmental and somatic dysfunction of lumbar region Segmental and somatic dysfunction of pelvic region Segmental and somatic dysfunction of thoracic region Sick sinus syndrome Sinus bradycardia Stroke/cerebrovascular accident TIA (transient ischemic attack) Urinary retention Hbwlg-Isawywueh-Wcrrb (WPW) syndrome Home Medications nitroglycerin 0.4 mg sublingual tablet 0.4 mg SUBLINGUAL Q5M PRN #25 tab 02/11/19 [Rx Last Taken 07/27/19] aspirin 81 mg PO DAILY@1800 07/29/19 [History Last Taken 12/22/20 19:30] diltiazem HCl 180 mg capsule,extended release 24 hr 180 mg PO DAILY #90 cap 05/30/21 [Rx Last Taken Unknown] fluticasone furoate 200 mcg-vilanterol 25 mcg/dose inhalation powder 1 inh INHALATION QDAY #60 ea 07/04/21 [Rx Last Taken Unknown] ropinirole 1 mg tablet 1 mg PO QHS #90 tab 08/17/21 [Rx Last Taken Unknown] rosuvastatin 20 mg tablet 20 mg PO DAILY #90 tab 08/17/21 [Rx Last Taken Unknown] losartan 25 mg tablet 25 mg PO DAILY tab 10/11/21 [History Last Taken Unknown] rivaroxaban 20 mg tablet 20 mg PO DAILY tab 10/11/21 [History Last Taken Unknown] amiodarone 200 mg tablet 100 mg PO DAILY #90 tab 10/12/21 [Rx Last Taken Unknown] prednisone 40 mg PO DAILY 5 Days #10 tab 11/27/21 [Rx Last Taken Unknown] Allergy/AdvReac Type Severity Reaction Status Date / Time Sulfa (Sulfonamide Allergy Mild Rash Verified 11/27/21 20:26 Antibiotics) clopidogrel [From Plavix] AdvReac Severe Other - Verified 11/27/21 20:26 genetic nonresponder, needs brillinta oxybutynin AdvReac Severe short of Verified 11/27/21 20:26 breath, very dry mouth metoprolol [From Lopressor] AdvReac Mild - Verified 11/27/21 20:26 bronchospasm nystatin AdvReac Unknown Unknown Verified 11/27/21 20:26 MEDICAL TAPE AdvReac Itching Uncoded 09/19/21 09:47 Family History Brother CVA (cerebral vascular accident) Carotid artery stenosis Father CVA (cerebral vascular accident) Carotid artery stenosis Mother Stomach cancer Surgical History H/O eye surgery History of coronary artery stent placement (07/23/13) History of herniorrhaphy History of left heart catheterization (08/02/19) History of permanent cardiac pacemaker placement (12/08/12) History of shoulder surgery (01/2021) History of spinal surgery Social History household members: spouse Smoking Status: Never smoker alcohol intake: never substance use type: does not use what type of physical activity do you participate in: walking ROS ROS ED ROS Narrative Forehead swelling. Rash on the back of his neck. Review of Systems ROS Unobtainable: Denies due to encephalopathy Constitutional Constitutional ED: Denies chills or fever(s) Eyes Eyes: Denies change in vision ENT ENT ED: Denies ear pain, rhinorrhea or sore throat Cardiovascular Cardiovascular: Denies chest pain or palpitations Respiratory/Chest Respiratory/Chest: Denies cough or dyspnea Gastrointestinal Gastrointestinal: Denies abdominal pain, diarrhea, nausea or vomiting Genitourinary Genitourinary ED: Denies dysuria Musculoskeletal Musculoskeletal: Denies myalgias Integumentary Reports rash; Denies abscess or Abrasions Neurologic Neurologic: Denies headache(s) Psychiatric Psychiatric: Denies depression Endocrine Endocrinology: Denies polyuria Allergic/Immunologic Allergic/Immunologic ED: Denies urticaria EXAM Physical Exam Narrative Exam Narrative: 71-year-old male no acute distress vital signs stable afebrile. H EENT exam he has swelling to his forehead and around his eyes consistent with a contact dermatitis. There is no trauma no bruising. Is nontender. There is no cellulitis. There are reactive light extremities are intact. There is no discharge or drainage. He also has a rash and sunburn on the posterior neck. Lungs are clear. Heart irregularly irregular history of A. fib. Rate about 60. Abdomen soft nontender. Moving all 4 extremities. Neurologically is awake alert with no focal motor deficits Const Vital Signs: 11/27/21 20:23 Temperature 96.3 F L Temperature Source Temporal Pulse Rate 63 Respiratory Rate 15 Blood Pressure 166/89 H Blood Pressure Mean 114 Pulse Ox 95 Oxygen Delivery Method Room Air Positive well nourished and well developed; Negative for obese, cachectic, contractures or unkempt General Appearance ED: well developed and NAD; Negative for unkempt, cachectic, contractures, cyanotic, diaphoretic or pallor Nutritional Appearance: Negative for cachectic or obese HEENT Reports moist mucous membranes HEENT Narrative: Forehead swelling. Rash on posterior neck and first-degree sunburn. Negative for trauma or tenderness Eyes PERRL and EOMs intact bilaterally General Eye ED: Negative for pale conjunctiva or scleral icterus Neck no lymphadenopathy, supple and no JVD General: Negative for tenderness Chest Wall inspection of chest normal and palpation of chest normal Resp normal respiratory effort and clear to auscultation bilaterally Auscultation: Negative for rales, rhonchi or wheezes Cardio regular rate, regular rhythm, S1 normal heart sound, S2 normal heart sound and no murmurs GI normal to inspection, nondistended, normoactive bowel sounds, non-tender, non- distended and no masses Inspection: Negative for abdominal distention Auscultation: normoactive bowel sounds Palpation: soft; Negative for tender, guarding or rebound tenderness present Back/Spine no CVA tenderness General Back: Negative for CVA tenderness Cervical Spine: Negative for cervical spine tenderness Thoracic Spine / Upper Back: Negative for thoracic spinal tenderness Extremity normal to inspection General Extremety ED: Negative for edema or tenderness General Extremity: Negative for edema Neuro oriented x3 Sensorium / Orientation: alert Motor Exam: strength 5/5 throughout Psych mental status grossly normal Appearance: Negative for unkempt Mood & Affect: Negative for depressed Skin No no rashes or lesions noted and no wounds Skin Narrative: Rash in the posterior neck. Consistent with a contact dermatitis. General Skin Exam: Negative for jaundice or pallor Rashes: rashes noted MDM MDM MDM Narrative Medical decision making narrative: Patient has forehead swelling and a rash in his posterior neck consistent with a local allergic reaction most likely a contact dermatitis. Started on prednisone here. Placed on prednisone 40 mg a day for the next 5 days. Follow-up with his doctor if not improving. He is on Xarelto but has had no head trauma. No headache. There is no bruising. I do not think it is related. Discharge Plan Triage Chief Complaint: Edema ED Provider: Anthony Mendez Dx/Rx/DC Orders Clinical Impression: Contact dermatitis, Chronic anticoagulation, History of atrial fibrillation Instructions: ED Contact Dermatitis Prescriptions: New prednisone 20 mg tablet 40 mg PO DAILY 5 Days Qty: 10 RF: 0 No Action diltiazem HCl 180 mg capsule,extended release 24hr 180 mg PO DAILY Qty: 90 RF: 3 losartan 25 mg tablet 25 mg PO DAILY RF: 0 Xarelto 20 mg tablet 20 mg PO DAILY RF: 0 amiodarone 200 mg tablet 100 mg PO DAILY Qty: 90 RF: 3 aspirin 81 MG tablet 81 mg PO DAILY@1800 RF: 0 nitroglycerin 0.4 mg tablet, sublingual 0.4 mg SUBLINGUAL Q5M PRN (Reason: Chest Pain) Qty: 25 RF: 3 Breo Ellipta 200-25 mcg/dose blister with device 1 inh INHALATION QDAY Qty: 60 RF: 6 rosuvastatin 20 mg tablet 20 mg PO DAILY Qty: 90 RF: 3 ropinirole 1 mg tablet 1 mg PO QHS Qty: 90 RF: 3 Primary Care Provider: Reshma Arreola Referrals: Reshma Arreola MD [Primary Care Provider] - 1 Week Activity Restrictions/Additional Instructions: The rash and forehead swelling is most likely secondary to a local allergic reaction to something you came in contact with possibly the pine. Ice to your forehead do not be surprised if that swelling comes down by your eyes and cheeks more. Prednisone daily start tomorrow for the next 5 days. Follow-up with your doctor if not improving or return if worse. Disposition Disposition: Home, Self Care
[2021-11-27] MEDS: predniSONE 20 MG Tablet 60 MG PO (21:01)
[2021-11-27 21:02] VITALS: PULSE 78; RESP 17; O2SAT 99
--- NOTE | 2021-11-30 15:37 | CASEMGMT ---
RODRIGUEZ TAVAREZ ED visit f/u call: ED visit: 11/27/21 Complaint: edema Call to pt. He states the swelling is improving. He has been taking the Prednisone as prescribed and feels it is working. He is also using cool compresses as needed. He states does not feel f/u w/PCP will be necessary, stating, I think it's on it's way to heal. He is aware to make an appt if it does not continue to improve or if it worsens. He denies having any questions or needs. Jorden FRIAS CM
== END 2021-11-27 21:04 | disposition home or self-care (01) ==
PROVIDERS: Emergency Provider Emergency Medicine; PCP Internal Medicine; Visit Provider Emergency Medicine
DX: L25.9 Unspecified contact dermatitis, unspecified cause (principal); J44.9 Chronic obstructive pulmonary disease, unspecified; I48.91 Unspecified atrial fibrillation; I12.9 Hypertensive chronic kidney disease with stage 1 through stage 4 chronic kidney disease, or unspecified chronic kidney disease; N18.9 Chronic kidney disease, unspecified; E78.5 Hyperlipidemia, unspecified; I25.10 Atherosclerotic heart disease of native coronary artery without angina pectoris; Z79.01 Long term (current) use of anticoagulants; R60.9 Edema, unspecified; Z95.5 Presence of coronary angioplasty implant and graft; Z86.73 Personal history of transient ischemic attack (TIA), and cerebral infarction without residual deficits
CPT/HCPCS: 99283

== ENCOUNTER → 2022-01-02 | Outpatient (CLI) | payer MEDICARE, SELFPAY ==
[2022-01-02 12:50] LABS: Vitamin B12 > 2000 pg/mL (211-911)
== END | disposition home or self-care (01) ==
LOC: BIMLAB 11:10
PROVIDERS: PCP Internal Medicine; Visit Provider Internal Medicine
DX: E53.8 Deficiency of other specified B group vitamins (principal)
CPT/HCPCS: 36415; 82607

== ENCOUNTER → 2022-01-09 | Outpatient (CLI) | payer MEDICARE, SELFPAY | END | disposition home or self-care (01) | PROVIDERS: PCP Internal Medicine; Referring Provider Internal Medicine; Visit Provider Internal Medicine | DX: U07.1 COVID-19 (principal); J06.9 Acute upper respiratory infection, unspecified; R06.00 Dyspnea, unspecified | CPT/HCPCS: 87635; U0003; U0005 ==

== ENCOUNTER → 2022-01-31 | Outpatient (CLI) | payer MEDICARE, SELFPAY ==
[2022-01-31 13:10] LABS: Anion Gap 4 (5-15); BUN 19 mg/dL (7-18); BUN/Creat Ratio 14.3 RATIO (10-20); Calcium,Total 9.8 mg/dL (8.5-10.1); Chloride 106 mmol/L (98-107); Creatinine, Serum 1.33 mg/dL (0.70-1.30); EST Glomerular Filtration Rate 56 mL/min (>60); Est Glom Filt Rate - Afr Amer 68 mL/min (>60); Glucose 86 mg/dL (74-106); Potassium 4.8 mmol/L (3.5-5.1); Sodium Level 138 mmol/L (136-145)
== END | disposition home or self-care (01) ==
LOC: MFPLAB 10:35
PROVIDERS: PCP Internal Medicine; Visit Provider Family Medicine
DX: N19 Unspecified kidney failure (principal)
CPT/HCPCS: 36415; 80048

== ENCOUNTER → 2022-05-20 | Outpatient (CLI) | payer MEDICARE, SELFPAY ==
[2022-05-20 18:36] LABS: Vitamin B12 191 pg/mL (211-911)
== END | disposition home or self-care (01) ==
LOC: MFPLAB 16:10
PROVIDERS: PCP Family Medicine; Referring Provider Family Medicine; Visit Provider Family Medicine
DX: E53.8 Deficiency of other specified B group vitamins (principal)
CPT/HCPCS: 36415; 82607

== ENCOUNTER → 2022-09-09 | Outpatient (CLI) | payer MEDICARE, OTHER, SELFPAY ==
[2022-09-09 18:46] LABS: AST(SGOT) 23 U/L (15-37); Alanine Aminotransfer ALT/SGPT 21 U/L (16-61); Alkaline Phosphatase 76 U/L (45-117); Anion Gap 5 (5-15); BUN 28 mg/dL (7-18); BUN/Creat Ratio 20.4 RATIO (10-20); Bilirubin, Direct 0.11 mg/dL (0.00-0.30); Calcium,Total 9.2 mg/dL (8.5-10.1); Chloride 111 mmol/L (98-107); Creatinine, Serum 1.37 mg/dL (0.70-1.30); EST Glomerular Filtration Rate 54 mL/min (>60); Est Glom Filt Rate - Afr Amer 66 mL/min (>60); Globulin 2.9 g/dL (2.2-4.2); Glucose 88 mg/dL (74-106); Magnesium 2.3 mg/dL (1.6-2.6); Protein, Total 6.9 g/dL (6.4-8.2); Sodium Level 144 mmol/L (136-145); T4 Free Direct 1.07 ng/dL (0.76-1.46); Thyroid Stim Hormone (TSH) 6.62 uIU/mL (0.358-3.74)
== END | disposition home or self-care (01) ==
PROVIDERS: PCP Family Medicine; Referring Provider Nurse Practitioner Family; Visit Provider Nurse Practitioner Family
DX: Z79.899 Other long term (current) drug therapy (principal); I49.5 Sick sinus syndrome; Z95.5 Presence of coronary angioplasty implant and graft; Z95.0 Presence of cardiac pacemaker; I10 Essential (primary) hypertension
CPT/HCPCS: 36415; 80048; 80076; 83735; 84439; 84443

== ENCOUNTER → 2022-10-03 | Outpatient (CLI) | payer MEDICARE, OTHER, SELFPAY ==
[2022-10-03 18:13] LABS: Thyroid Stim Hormone (TSH) 3.13 uIU/mL (0.358-3.74)
== END | disposition home or self-care (01) ==
LOC: MFPLAB 14:28
PROVIDERS: PCP Family Medicine; Referring Provider Family Medicine; Visit Provider Nurse Practitioner Family
DX: E03.9 Hypothyroidism, unspecified (principal); Z79.899 Other long term (current) drug therapy
CPT/HCPCS: 36415; 84443

== ENCOUNTER → 2022-11-18 | Outpatient (CLI) | payer MEDICARE, OTHER, SELFPAY ==
[2022-11-18 18:20] LABS: Anion Gap 3 (5-15); BUN 24 mg/dL (7-18); Chloride 107 mmol/L (98-107); EST Glomerular Filtration Rate 49 mL/min (>60); Est Glom Filt Rate - Afr Amer 59 mL/min (>60); Free T3 1.9 pg/mL (2.18-3.98); Glucose 101 mg/dL (74-106); Potassium 5.2 mmol/L (3.5-5.1); Sodium Level 137 mmol/L (136-145); T4 Free Direct 0.97 ng/dL (0.76-1.46); Thyroid Stim Hormone (TSH) 8.31 uIU/mL (0.358-3.74)
== END | disposition home or self-care (01) ==
LOC: MFPLAB 16:08
PROVIDERS: PCP Family Medicine; Visit Provider Family Medicine
DX: E03.9 Hypothyroidism, unspecified (principal); N28.9 Disorder of kidney and ureter, unspecified
CPT/HCPCS: 36415; 80048; 84439; 84443; 84481

== ENCOUNTER → 2022-12-26 | Outpatient (CLI) | payer MEDICARE, OTHER, SELFPAY ==
--- NOTE | 2022-12-26 13:35 | RAD_ITS ---
EXAM: XR LUMBOSACRAL SPINE, 2 OR 3 VIEWS CLINICAL INDICATION: Spondylosis without myelopathy or radiculopathy, lumbar region TECHNIQUE: Frontal and lateral views of the lumbar spine and sacrum. COMPARISON: June 30, 2019. FINDINGS: VERTEBRAE: The usual lordotic curvature is mildly straightened. There is no significant spondylolisthesis. Minimal disc space narrowing at adjacent levels. Preserved vertebral body height. No fracture. No significant facet arthropathy. DISC SPACES: Postoperative change with stabilization hardware posteriorly at L4-L5. Surgical small clips over the disc space, the disc space is mildly hyperdense and suspected to be at least partially fused. VASCULATURE: Mild peripheral calcification of the aorta, no aneurysm. GASTROINTESTINAL TRACT: Unremarkable as visualized. Included bowel gas pattern is non-obstructive. RAD/Lumbar Spine 2 or 3 Views IMPRESSION: 1. Degenerative and postoperative spine changes. 2. Increased sclerotic density and presumably at least partial fusion at the L4-5 disc space compared to 2019. 3. Otherwise stable exam. Electronically Signed: Radha Pedraza MD at 9:26 EDT ,
== END | disposition home or self-care (01) ==
LOC: RAD 13:31
PROVIDERS: PCP Family Medicine; Referring Provider Anesthesiology Pain Medicine; Visit Provider Anesthesiology Pain Medicine
DX: M47.816 Spondylosis without myelopathy or radiculopathy, lumbar region (principal)
CPT/HCPCS: 72100

== ENCOUNTER → 2023-03-05 | Outpatient (CLI) | payer MEDICARE, OTHER, SELFPAY ==
--- NOTE | 2023-03-05 08:22 | CT_ITS ---
STUDY: CT RIGHT SHOULDER REASON FOR EXAM: Male, 72 years old. Right shoulder arthroplasty. Evaluate for soft tissue calcification or bone spurs. RADIATION DOSAGE (If Supplied By Facility): CTDIvol = ( 24.58 ) mGy, DLP = ( 649.67 ) mGycm TECHNIQUE: The patient was scanned in a multi detector CT scanner. High resolution transaxial imaging was performed without the administration of intravenous contrast material. Sagittal and coronal images were reconstructed. Individualized dose optimization techniques were used for this CT. COMPARISON: Right shoulder x-rays dated November 2020. FINDINGS: Osteopenia. Right total shoulder arthroplasty in anatomic alignment. No complications are identified. Mild arthrosis of the AC joint. Normal coracoid process. Normal visualized lateral clavicle. Normal acromioclavicular articulation. There is a Type II morphology (curved), with a neutral orientation. Normal visualized muscles and soft tissue structures. Incidentally noted is pacemaker. CT/Extremity Upper without Contra IMPRESSION: Uncomplicated right total shoulder arthroplasty with no complications. No soft tissue calcifications or acute abnormality. Electronically Signed: Polo Manzanares MD at 12:50 EDT ,
== END | disposition home or self-care (01) ==
LOC: CT 08:20
PROVIDERS: PCP Family Medicine; Referring Provider Specialist; Visit Provider Specialist
DX: M25.511 Pain in right shoulder (principal); Z96.611 Presence of right artificial shoulder joint
CPT/HCPCS: 73200

== ENCOUNTER → 2023-03-12 | Outpatient (CLI) | payer MEDICARE, OTHER, SELFPAY ==
[2023-03-12 18:04] LABS: Absolute Lymphocyte Count 1.57 X10^3/uL (0.83-4.51); Absolute Neutrophil Count 3.4 X10^3/uL (2.0-7.7); Basophil# 0.05 X10^3/uL; Basophil% 0.9 % (0-1); Eosinophil# 0.07 X10^3/uL; Eosinophils% 1.2 % (0-5); Hematocrit 42.6 % (40-54); Hemoglobin 14.1 g/dL (13.0-16.5); Lymphocyte # 1.57 X10^3/ul (0.83-4.51); Lymphocyte % 27.7 % (19-41); Mean Corp Hgb Conc 33.1 g/dL (32-36); Mean Corpuscular Hgb 30.9 pg (27.0-32.0); Mean Corpuscular Volume 93.4 fL (80-94); Mean Platelet Vol. 9.9 fl (6.2-12.0); Monocyte# 0.57 X10^3/uL; Monocyte% 10.1 % (0-10); NRBC Flagged by Analyzer 0 % (0-5); Neutrophil % 59.9 % (47-70); Platelet Count 215 K/mm3 (150-450); RBC Distribution Width SD 51.8 fl (35.1-43.9); Red Blood Count 4.56 M/mm3 (4.6-6.2); White Blood Count 5.7 K/mm3 (4.4-11.0)
[2023-03-12 18:38] LABS: Erythrocyte Sedimentation Rate 5 mm/hr (0-20)
[2023-03-12 18:43] LABS: CRP < 2.90 mg/L (0.0-3.0)
== END | disposition home or self-care (01) ==
LOC: MFPLAB 16:05
PROVIDERS: PCP Family Medicine; Visit Provider Specialist
DX: Z96.611 Presence of right artificial shoulder joint (principal)
CPT/HCPCS: 36415; 85025; 85652; 86140

== ENCOUNTER → 2023-03-31 | Outpatient (CLI) | payer MEDICARE, OTHER, SELFPAY ==
--- NOTE | 2023-03-31 16:40 | RAD_ITS ---
INDICATION: Evaluate PPM leads EXAMINATION/TECHNIQUE: X-RAY - XR Chest 2 Views COMPARISON: 10/11/2021. FINDINGS: LINES/DEVICES: A right-sided pacemaker is seen in place. LUNGS: No consolidation, edema or effusion. No pneumothorax. MEDIASTINUM AND CARDIOVASCULAR STRUCTURES: Cardiac silhouette not enlarged. Central airways and mediastinal contour are unremarkable. BONES AND SOFT TISSUES: Right-sided shoulder prosthesis with degenerative disease of the spine. RAD/Chest PA and Lateral IMPRESSION: No radiographic evidence of acute cardiopulmonary disease. Electronically Signed: Akilah Lovett, at 17:41 EDT ,
== END | disposition home or self-care (01) ==
LOC: RAD 16:36
PROVIDERS: PCP Family Medicine; Referring Provider Nurse Practitioner Family; Visit Provider Nurse Practitioner Family
DX: I49.5 Sick sinus syndrome (principal); Z95.0 Presence of cardiac pacemaker
CPT/HCPCS: 71046

== ENCOUNTER → 2023-05-19 | Outpatient (CLI) | payer MEDICARE, OTHER, SELFPAY ==
[2023-05-19 18:12] LABS: Free T3 2.4 pg/mL (2.18-3.98); T4 Free Direct 0.98 ng/dL (0.76-1.46)
== END | disposition home or self-care (01) ==
LOC: MFPLAB 16:28
PROVIDERS: PCP Family Medicine; Visit Provider Family Medicine
DX: E03.9 Hypothyroidism, unspecified (principal)
CPT/HCPCS: 36415; 84439; 84443; 84481

== ENCOUNTER 2023-06-23 13:18 | Day surgery (SDC) | payer MEDICARE, OTHER, SELFPAY ==
--- NOTE | 2023-06-12 09:40 | EKG12_ITS ---
Test Reason : PRE OP Blood Pressure : / mmHG Vent. Rate : 060 BPM Atrial Rate : 060 BPM P-R Int : 226 ms QRS Dur : 088 ms QT Int : 392 ms P-R-T Axes : 059 055 064 degrees QTc Int : 392 ms Atrial-paced rhythm with prolonged AV conduction Abnormal ECG Confirmed by NANCY AMBROSIO, ISIDORO ([id number]), tape editor SARA SCHUSTER ([id number]) on 06/16/2023 10:41:05 AM Referred By: Thierry Pepe Confirmed By:MARTHA CRUZ MD
[2023-06-12 10:47] LABS: Hematocrit 44.5 % (40-54); Hemoglobin 14.7 g/dL (13.0-16.5); Mean Corpuscular Hgb 31.7 pg (27.0-32.0); Mean Corpuscular Volume 95.9 fL (80-94); Mean Platelet Vol. 9.5 fl (6.2-12.0); Platelet Count 216 K/mm3 (150-450); RBC Distribution Width CV 13.5 % (11.6-14.6); RBC Distribution Width SD 47.9 fl (35.1-43.9); Red Blood Count 4.64 M/mm3 (4.6-6.2); White Blood Count 5.8 K/mm3 (4.4-11.0)
[2023-06-12 11:12] LABS: Anion Gap 4 (5-15); BUN 20 mg/dL (7-18); BUN/Creat Ratio 15.9 RATIO (10-20); Calcium,Total 9.2 mg/dL (8.5-10.1); Chloride 107 mmol/L (98-107); Creatinine, Serum 1.26 mg/dL (0.70-1.30); EST Glomerular Filtration Rate 60 mL/min (>60); Est Glom Filt Rate - Afr Amer 72 mL/min (>60); Glucose 96 mg/dL (74-106); Sodium Level 141 mmol/L (136-145)
[2023-06-23 13:31] VITALS: BP 143/82; PULSE 77; RESP 17; TEMP 36.3; O2SAT 100; BMI 22.8
[2023-06-23] MEDS: Lactated Ringers 1,000 ML 15 ML IV (13:37)
--- NOTE | 2023-06-23 15:08 | PCM.DC.SUM ---
Providers Primary Care Physician: Dr. Paresh Carranza MD Reason For Visit: Septoplasty,Resect/inferior turbina Medications at Discharge Home Medications nitroglycerin 0.4 mg sublingual tablet 0.4 mg sublingual Q5M PRN Chest Pain #25 tabs 02/11/19 meloxicam 15 mg tablet 15 mg PO DAILY 09/09/22 losartan 25 mg tablet 25 mg PO DAILY #90 tabs 05/05/23 Weight / BMI Weight Weight: 70 kg Body Mass Index (BMI) 22.8 ABG / Lab / Microbiology Data 06/12/23 09:50 06/12/23 09:50 D/C Instructions Discharge Diet: No restrictions Discharge Activity: Return to Normal Activity Additional Activity Instructions: No noseblowing Additional Dressing/Incision Instructions: Start saline nasal spray tomorrow....3 sprays each nostril three times per day Please Follow Up With: Thierry Pepe MD When: 8 days Meaningful Use Info Meaningful Use Diagnoses (Choose all that apply): None applicable Discharge Plan Admission Attending Provider: Thierry Pepe Primary Care Provider: Paresh Carranza Discharge Orders/Prescriptions Prescriptions: No Action meloxicam 15 mg tablet 15 mg PO DAILY nitroglycerin 0.4 mg tablet, sublingual 0.4 mg SUBLINGUAL Q5M PRN (Reason: Chest Pain) Qty: 25 3RF Patient Comments: CHEST PAIN losartan 25 mg tablet 25 mg PO DAILY Qty: 90 3RF Referrals / Follow Up: Paresh Carranza MD [Primary Care Provider] - Disposition Disposition (needs filled in before D/C Order can be placed): Home, Self Care
--- NOTE | 2023-06-23 15:10 | PCM.OPRPT ---
Report of Operation Date of Procedure: 06/23/23 Pre-Operative Diagnosis: nasal airway obstruction deviated nasal septum inferior turbinate hypertrophy bilaterally Post-Operative Diagnosis: same Surgery/Procedure Performed:: Septoplasty bilateral submucous resection inferior turbinates Surgeon: Thierry Pepe Type of Anesthesia: General Anesthesiologist: Kwaku Locke Estimated Blood Loss (mL): minimal Description of Procedure: The patient was taken to the operating room on 06/23/23. He was placed in supine position on the operating table. He was given sufficient general endotracheal anesthesia. The table was elevated 30 degrees. The nose was draped sterilely. 1% lidocaine with epinephrine was injected into the septum nasal floor anterior aspect of the inferior turbinates bilaterally. Nasal hair was trimmed with the scissors and removed. A right hemitransfixion incision was made with a 15 blade. The mucoperichondrium was elevated off of the left-hand side of the septum with a [place] elevator. An anterior and posterior tunnel were created in this fashion. The bony cartilaginous junction was with a [place] elevator. A posterior tunnel was created on the right side by elevating the mucoperichondrium with a [place]. The deviated portions of bony septum were removed using open Hilario-Kiran forceps. Next I established a plane on the right-hand side of the quadrangular cartilage as it was completely deviated into the right nasal cavity. The cartilage was from the maxillary crest. The maxillary crest was removed with a hammer and chisel. With the crest removed the quadrangular cartilage was able to be placed in the midline position without difficulty. There was bleeding from the posterior septum that was cauterized with suction cautery. The remaining quadrangular cartilage was scored with a 15 blade. Afrin was used for hemostasis as well as Cristian powder. Next, an incision was placed at the anterior aspect of the right inferior turbinate at the mucocutaneous junction. A submucous plane established with a caudal elevator. Submucous resection was carried out using a microdebrider where bone and tissue were removed. Afrin pledgets were used for hemostasis. The incision was then closed with 4-0 chromic. Then, an incision was placed at the anterior aspect of the left inferior turbinate at the mucocutaneous junction. A submucous plane established using a caudal elevator. Submucous resection was carried out using a microdebrider where bone and tissue were removed. The incision was then closed with 4-0 chromic. Afrin and Cristian were used for hemostasis. The hemitransfixion incision was closed with 4-0 chromic. Ware nasal splints were applied to each side of the septum and sewn through and through with 3-0 silk. The patient was then awoken and brought to the recovery room in stable condition. Blood loss minimal, replacement none. Sponge, needle count, sponge count, were correct at the end of this procedure.
--- NOTE | 2023-06-23 15:15 | ETH_PTH ---
PATIENT: BRIGETTE HOLGUIN LOC: [facility] [place] U#:[id number] AGE/SX: 72/M ROOM: RE06/23/[address]: Dr. Thierry Pepe MD : [id number] BED: DIS: 06/23/2023 SPEC #: [id number] RECD: 06/24/23 08:29 STATUS: EMELY BUCK #: [id number] LEYDI: 06/23/23 15:[address]: Thierry Pepe DEPT: SURGICAL PATHOLOGY RECD BY: Cristina Ortega ENTERED: 06/24/23 08:31 SP TYPE: ETH TISS OTHR DR: Dr. Paresh Carranza MD Tissues: Ethmoid sinus, NOS Procedures: Decalcification bone/plaque Surgery Specimen Level III HEADER OPERATION: Septoplasty, submucosa resection/inferior turbinates PRE-OP DIAGNOSIS: Nasal congestion, deviated nasal septum, hypertrophy of nasal turbinates TISSUE SUBMITTED: Septal cartilage and turbinates MICROSCOPIC DIAGNOSIS Nasal septum bone and cartilage, septoplasty: Focal reparative and reactive change (clinically deviated septum). AM:herb 07/02/2023 MICROSCOPIC DESCRIPTION Slides are reviewed. GROSS DESCRIPTION Received in fixative is one container labeled with the patient's name and designated Septal cartilage and turbinates. The specimen consists of multiple irregular fragments of bone and cartilage that in aggregate measure 3.0 x 3.0 x 0.2 cm. Taping Foreman portions are submitted in one cassette after decalcification. / AM:herb 06/24/2023 TC:5 CPT: 28625, 81459
[2023-06-23] MEDS: Oxymetazoline 0.05% 1 SPRAY SPRAY.BTL 15 SPRAY (15:40)
[2023-06-23] MEDS: Lidocaine 1% /Epi 1:100 (20ml) 20 ML Vial (16:14)
[2023-06-23] MEDS: Mupirocin Ointment 22gm Tube 1 APPLIC (16:15)
[2023-06-23 16:41] VITALS: BP 143/72; BP 143/82; PULSE 77; RESP 14; TEMP 36.1; O2SAT 97
[2023-06-23 16:45] VITALS: BP 141/76; BP 143/82; PULSE 78; RESP 16; O2SAT 95
[2023-06-23 17:00] VITALS: BP 143/82; BP 156/78; PULSE 75; RESP 16; O2SAT 98
[2023-06-23 17:17] VITALS: BP 143/82; BP 159/77; PULSE 75; RESP 16; TEMP 36.3; O2SAT 97
[2023-06-23 17:56] VITALS: BP 143/82
== END 2023-06-23 18:07 | disposition home or self-care (01) ==
LOC: SDC 13:18 → AC 13:20
PROVIDERS: Anesthesiology; PCP Family Medicine; Referring Provider Otolaryngology; Visit Provider Otolaryngology
PROC: (CPT 30520; principal; 2023-06-23 15:00)
DX: J34.2 Deviated nasal septum (principal); J34.89 Other specified disorders of nose and nasal sinuses; J34.3 Hypertrophy of nasal turbinates; R09.81 Nasal congestion; I10 Essential (primary) hypertension; I25.10 Atherosclerotic heart disease of native coronary artery without angina pectoris; G47.33 Obstructive sleep apnea (adult) (pediatric); Z79.899 Other long term (current) drug therapy; Z95.0 Presence of cardiac pacemaker; Z86.73 Personal history of transient ischemic attack (TIA), and cerebral infarction without residual deficits
CPT/HCPCS: 30520; 30140; 00160; 36415; 80048; 84443; 85027; 88304; 88305; 88311; 93005; J7120; J2405

== ENCOUNTER → 2023-09-15 | Outpatient (CLI) | payer MEDICARE, OTHER, SELFPAY ==
--- NOTE | 2023-09-15 10:52 | RAD_ITS ---
EXAM: XR CHEST, 2 VIEWS CLINICAL INDICATION: Dyspnea on exertion, cough TECHNIQUE: Frontal and lateral views of the chest. COMPARISON: 03/31/2023 FINDINGS: LUNGS AND PLEURAL SPACES: No significant abnormality. No consolidation or edema. No pneumothorax. No effusion. HEART: No significant abnormality. Cardiac silhouette not enlarged. MEDIASTINUM: Central airways and mediastinal contour are unremarkable. BONES/JOINTS: Right shoulder arthroplasty. No acute fracture. SOFT TISSUES: No significant abnormality. TUBES, LINES AND DEVICES: Right side cardiac pacer. RAD/Chest PA and Lateral IMPRESSION: No acute findings in the chest. Postoperative changes. Electronically Signed: Gilberto Rodriguez DO at 17:10 EST ,
[2023-09-15 11:08] LABS: Absolute Lymphocyte Count 1.48 X10^3/uL (0.83-4.51); Absolute Neutrophil Count 3.5 X10^3/uL (2.0-7.7); Basophil# 0.05 X10^3/uL; Basophil% 0.9 % (0-1); Eosinophil# 0.06 X10^3/uL; Hematocrit 41.5 % (40-54); Hemoglobin 13.5 g/dL (13.0-16.5); Lymphocyte # 1.48 X10^3/ul (0.83-4.51); Lymphocyte % 25.4 % (19-41); Mean Corp Hgb Conc 32.5 g/dL (32-36); Mean Corpuscular Hgb 29.8 pg (27.0-32.0); Mean Corpuscular Volume 91.6 fL (80-94); Mean Platelet Vol. 9.8 fl (6.2-12.0); Monocyte# 0.69 X10^3/uL; Monocyte% 11.9 % (0-10); NRBC Flagged by Analyzer 0 % (0-5); Neutrophil # 3.53 X10^3/uL (2.7-7.7); Neutrophil % 60.6 % (47-70); Platelet Count 245 K/mm3 (150-450); RBC Distribution Width CV 13.5 % (11.6-14.6); RBC Distribution Width SD 45.5 fl (35.1-43.9); Red Blood Count 4.53 M/mm3 (4.6-6.2); White Blood Count 5.8 K/mm3 (4.4-11.0)
[2023-09-15 11:40] LABS: BNP,B-Type NATRIURETIC PEPTIDE 27.3 pg/mL (0-100)
[2023-09-15 12:40] LABS: ALB/GLOB Ratio 1.3 RATIO (0.9-2.4); AST(SGOT) 15 U/L (15-37); Alanine Aminotransfer ALT/SGPT 23 U/L (16-61); Albumin, Serum 3.7 g/dL (3.2-5.0); Alkaline Phosphatase 84 U/L (45-117); Anion Gap 4 (5-15); BUN 35 mg/dL (7-18); BUN/Creat Ratio 26.7 RATIO (10-20); Calcium,Total 9.1 mg/dL (8.5-10.1); Chloride 112 mmol/L (98-107); Creatinine, Serum 1.31 mg/dL (0.70-1.30); EST Glomerular Filtration Rate 57 mL/min (>60); Est Glom Filt Rate - Afr Amer 69 mL/min (>60); Globulin 2.9 g/dL (2.2-4.2); Glucose 91 mg/dL (74-106); Potassium 4.3 mmol/L (3.5-5.1); Protein, Total 6.6 g/dL (6.4-8.2); Sodium Level 144 mmol/L (136-145)
== END | disposition home or self-care (01) ==
LOC: LAB 10:40
PROVIDERS: PCP Family Medicine; Referring Provider Nurse Practitioner Gerontology; Visit Provider Nurse Practitioner Gerontology
DX: I25.10 Atherosclerotic heart disease of native coronary artery without angina pectoris (principal); I48.0 Paroxysmal atrial fibrillation; R63.5 Abnormal weight gain; R05.8 Other specified cough; N18.9 Chronic kidney disease, unspecified; Z79.899 Other long term (current) drug therapy; Z79.01 Long term (current) use of anticoagulants; R06.09 Other forms of dyspnea
CPT/HCPCS: 36415; 71046; 80053; 83880; 85025

== ENCOUNTER → 2023-11-20 | Outpatient (CLI) | payer MEDICARE, OTHER, SELFPAY ==
[2023-11-20 10:00] LABS: ALB/GLOB Ratio 1.3 RATIO (0.9-2.4); AST(SGOT) 18 U/L (15-37); Alanine Aminotransfer ALT/SGPT 17 U/L (16-61); Albumin, Serum 3.7 g/dL (3.2-5.0); Alkaline Phosphatase 84 U/L (45-117); Anion Gap 3 (5-15); BUN 28 mg/dL (7-18); BUN/Creat Ratio 21.9 RATIO (10-20); Calcium,Total 9.1 mg/dL (8.5-10.1); Chloride 110 mmol/L (98-107); Cholesterol 180 mg/dL (200); Creatinine, Serum 1.28 mg/dL (0.70-1.30); EST Glomerular Filtration Rate 59 mL/min (>60); Est Glom Filt Rate - Afr Amer 71 mL/min (>60); Free T3 2.5 pg/mL (2.18-3.98); Globulin 2.8 g/dL (2.2-4.2); Glucose 95 mg/dL (74-106); High Density Lipoprotein 53 mg/dL; Potassium 4.4 mmol/L (3.5-5.1); Protein, Total 6.5 g/dL (6.4-8.2); Sodium Level 140 mmol/L (136-145); T4 Free Direct 1.07 ng/dL (0.76-1.46); Thyroid Stim Hormone (TSH) 4.42 uIU/mL (0.358-3.74); Triglycerides 84 mg/dL; Very Low Density Lipoprotein 17 mg/dL (5-40)
== END | disposition home or self-care (01) ==
LOC: LAB 07:48
PROVIDERS: PCP Family Medicine; Referring Provider Family Medicine; Visit Provider Family Medicine
DX: E03.9 Hypothyroidism, unspecified (principal); E78.5 Hyperlipidemia, unspecified
CPT/HCPCS: 36415; 80053; 80061; 84439; 84443; 84481

== ENCOUNTER → 2024-03-23 | Outpatient (CLI) | payer MEDICARE, OTHER, SELFPAY ==
--- NOTE | 2024-03-23 10:40 | RAD_ITS ---
INDICATION: Radiculopathy, cervical region EXAMINATION/TECHNIQUE: X-RAY - XR Spine Cervical 2 or 3 Views COMPARISON: 06/30/2019. FINDINGS: VERTEBRAE: Preserved vertebral body height. No fracture. No spondylolisthesis. Preservation of the normal cervical lordosis. Moderate multilevel facet appendectomy. DISCS: Moderate multilevel degenerative disc disease and spondylosis. NECK SOFT TISSUES: No prevertebral soft tissue widening. LUNG APICES: Clear. RAD/Cerv Spine 2 or 3 Views IMPRESSION: No evidence of acute fracture or spondylolisthesis. Moderate multilevel degenerative disc disease and spondylosis. Electronically Signed: Washington Barron MD at 23:53 EDT ,
== END | disposition home or self-care (01) ==
LOC: RAD 10:39
PROVIDERS: PCP Family Medicine; Referring Provider Anesthesiology Pain Medicine; Visit Provider Anesthesiology Pain Medicine
DX: M54.12 Radiculopathy, cervical region (principal)
CPT/HCPCS: 72040

== ENCOUNTER → 2024-04-09 | Outpatient (CLI) | payer MEDICARE, OTHER, SELFPAY ==
--- NOTE | 2024-04-09 16:38 | CT_ITS ---
EXAM: CT CERVICAL SPINE WITHOUT INTRAVENOUS CONTRAST CLINICAL INDICATION: Cervical spondylosis with myelopathy. TECHNIQUE: Helically acquired images were obtained of the cervical spine without intravenous contrast. 2D reformatted images were reviewed. This CT exam was performed using one or more of the following dose reduction techniques: automated exposure control, adjustment of the mA and/or kV according to patient size, and/or use of iterative reconstruction technique. RADIATION DOSE: CTDIvol = 15.27 mGy, DLP = 326.66 mGy-cm COMPARISON: CT cervical spine without contrast 12/21/2019. FINDINGS: VERTEBRAE: Minimal degenerative anterolisthesis of C7 on T1 is unchanged. Moderate left T1-T2 degenerative facet arthropathy is a new finding. Moderate left C2-C3 degenerative facet arthropathy is unchanged. No significant facet arthropathy of the remaining facet joints. No recent or remote fractures. No discrete lytic or blastic abnormality. DISCS/SPINAL CANAL/NEURAL FORAMINA: Diffuse degenerative disc space height narrowing at C2-C3, C3-C4, C4-C5, C5-C6 and C6-C7 disc space levels. Normal C7-T1 and T1-T2 disc space heights. Normal central canal and intervertebral neuroforamina throughout the cervical spine. SOFT TISSUES: Unremarkable. No prevertebral soft tissue swelling. LYMPH NODES: Unremarkable. No cervical adenopathy. LUNG APICES: Unremarkable as visualized. Clear. CT/Spine Cervical without Contras IMPRESSION: 1. No acute fracture of the cervical spine, craniocervical junction and cervicothoracic junction. 2. Minimal degenerative anterolisthesis of C7 on T1 is unchanged. 3. Moderate left C2-C3 degenerative facet arthropathy is unchanged. 4. Moderate left T1-T2 degenerative facet arthropathy is a new finding. 5. No suspicious cervical extruded disc fragment although limited by the absence of intrathecal contrast. 6. No CT evidence of suspicious cervical spinal stenosis. Electronically Signed: Mariano Fragoso MD at 14:51 EDT ,
== END | disposition home or self-care (01) ==
LOC: CT 16:37
PROVIDERS: PCP Family Medicine; Referring Provider Anesthesiology Pain Medicine; Visit Provider Anesthesiology Pain Medicine
DX: M47.12 Other spondylosis with myelopathy, cervical region (principal)
CPT/HCPCS: 72125

== ENCOUNTER → 2024-04-16 | Outpatient (CLI) | payer MEDICARE, OTHER, SELFPAY ==
[2024-04-16 13:16] LABS: Free T3 1.9 pg/mL (2.18-3.98); T4 Free Direct 1.08 ng/dL (0.76-1.46)
== END | disposition home or self-care (01) ==
LOC: MFPLAB 09:56
PROVIDERS: PCP Family Medicine; Visit Provider Family Medicine
DX: E03.9 Hypothyroidism, unspecified (principal)
CPT/HCPCS: 36415; 84439; 84443; 84481

== ENCOUNTER → 2024-05-03 | Outpatient (CLI) | payer MEDICARE, OTHER, SELFPAY ==
[2024-05-03 13:01] LABS: PSA,Total - Annual Screen 2.69 ng/mL (0.00-4.00)
== END | disposition home or self-care (01) ==
LOC: MFPLAB 10:38
PROVIDERS: PCP Family Medicine; Visit Provider Registered Nurse
DX: Z12.5 Encounter for screening for malignant neoplasm of prostate (principal)
CPT/HCPCS: 36415; 84153; G0103

== ENCOUNTER → 2024-10-21 | Outpatient (CLI) | payer MEDICARE, OTHER, SELFPAY ==
--- NOTE | 2024-10-21 09:30 | BD_ITS ---
PROCEDURE: DEXA BONE DENSITY STUDY 10/21/2024 REASON FOR EXAM: M, age 74 y/o . Postmenopausal. TECHNIQUE: DXA scan of the lumbar spine both hips. REFERENCE LINKS: ISCD Adult Positions COMPARISON: None FINDINGS: Lumbar Spine (L1-L4): g/cm2 (0.921)/T-score (-1.5)/Z-score (-0.5) findings are suggestive of osteopenia with a low fracture risk. Left Femur Total: g/cm2 (0.896)/T-score (-0.9)/Z-score (-0.1) Left Femoral Neck: g/cm2 (0.657)/T-score (-2.0)/Z-score (-0.7) Right Femur Total: g/cm2 (0.857)/T-score (-1.2)/Z-score (-0.4) Right Femoral Neck: g/cm2 (0.653)/T-score (-2.0)/Z-score (-0.7) BD/Dexa Bone Density Study IMPRESSION: The patient is considered osteopenic as outlined below according to World Bert Organization (WHO) criteria with a moderate fracture risk. Reading Location: [place] [id number]
== END | disposition home or self-care (01) ==
LOC: OPBD 09:20
PROVIDERS: PCP Family Medicine; Referring Provider Family Medicine; Visit Provider Family Medicine
DX: Z78.0 Asymptomatic menopausal state (principal); I10 Essential (primary) hypertension
CPT/HCPCS: 77080

== ENCOUNTER → 2024-11-08 | Outpatient (CLI) | payer MEDICARE, OTHER, SELFPAY ==
[2024-11-08 12:43] LABS: Absolute Lymphocyte Count 1.69 X10^3/uL (0.83-4.51); Absolute Neutrophil Count 4.3 X10^3/uL (2.0-7.7); Basophil# 0.04 X10^3/uL; Basophil% 0.6 % (0-1); Eosinophil# 0.02 X10^3/uL; Eosinophils% 0.3 % (0-5); Hematocrit 39.5 % (40-54); Hemoglobin 13.3 g/dL (13.0-16.5); Lymphocyte # 1.69 X10^3/ul (0.83-4.51); Lymphocyte % 25.1 % (19-41); Mean Corp Hgb Conc 33.7 g/dL (32-36); Mean Corpuscular Hgb 31.1 pg (27.0-32.0); Mean Corpuscular Volume 92.5 fL (80-94); Mean Platelet Vol. 9.8 fl (6.2-12.0); Monocyte# 0.65 X10^3/uL; Monocyte% 9.6 % (0-10); NRBC Flagged by Analyzer 0 % (0-5); Neutrophil # 4.32 X10^3/uL (2.7-7.7); Neutrophil % 64.1 % (47-70); Platelet Count 229 K/mm3 (150-450); RBC Distribution Width SD 47.5 fl (35.1-43.9); Red Blood Count 4.27 M/mm3 (4.6-6.2); White Blood Count 6.7 K/mm3 (4.4-11.0)
[2024-11-08 13:21] LABS: ALB/GLOB Ratio 1.7 RATIO (0.9-2.4); AST(SGOT) 21 U/L (<=37); Alanine Aminotransfer ALT/SGPT 16 U/L (<=46); Albumin, Serum 4.2 g/dL (3.4-4.8); Alkaline Phosphatase 78 U/L (40-129); Anion Gap 12 (5-15); BUN 24 mg/dL (4-19); BUN/Creat Ratio 16.9 RATIO (10-20); Calcium,Total 9.9 mg/dL (7.6-11.0); Carbon Dioxide 23.9 mmol/L (21.0-32.0); Chloride 107 mmol/L (98-108); Creatinine, Serum 1.42 mg/dL (0.70-1.20); EST Glomerular Filtration Rate 52 (>60); Globulin 2.4 g/dL (2.2-4.2); Glucose 95 mg/dL (70-99); Potassium 4.4 mmol/L (3.3-5.1); Pro- Brain NATRIURETIC PEPTIDE 487 pg/mL (<=900); Protein, Total 6.6 g/dL (5.9-8.4); Sodium Level 143 mmol/L (133-145); Total Bilirubin 0.62 mg/dL (0.00-1.30)
== END | disposition home or self-care (01) ==
LOC: LAB 11:25
PROVIDERS: PCP Family Medicine; Referring Provider Nurse Practitioner Family; Visit Provider Nurse Practitioner Family
DX: R06.02 Shortness of breath (principal); I48.0 Paroxysmal atrial fibrillation; R06.09 Other forms of dyspnea; Z95.5 Presence of coronary angioplasty implant and graft; Z95.0 Presence of cardiac pacemaker; I10 Essential (primary) hypertension; E78.2 Mixed hyperlipidemia
CPT/HCPCS: 36415; 80053; 83880; 84439; 84443; 85025

== ENCOUNTER → 2024-11-16 | Outpatient (CLI) | payer MEDICARE, OTHER, SELFPAY ==
--- NOTE | 2024-11-16 06:02 | ECHOD_ITS ---
Reason For Study Reason For Study: SOB Procedure This was a 2D Doppler, Color Flow transthoracic echocardiogram. Exam performed in department. Left Ventricle Normal LV size. The left ventricular ejection fraction is 65 %. Stage 1 diastolic dysfunction. No regional wall motion abnormalities noted. Right Ventricle Normal RV size. ICD or pacer leads identified within the right ventricle. Normal systolic function. Atria Normal left atrium. Normal right atrium. ICD or pacer leads identified within the right atrium. Mitral Valve Normal mitral valve. Tricuspid Valve Normal tricuspid valve. Mild (1+) tricuspid valve insufficiency. Pulmonary artery systolic pressure is 25 mmHg. Aortic Valve Trisinus/trileaflet aortic valve. Mild focal aortic valve thickening. Pulmonic Valve Normal pulmonic valve. Great Vessels Normal aortic root. The pulmonary artery is normal size. Inferior vena cava collapse with respiration. Pericardium/Pleural No pericardial effusion. MMode/2D Measurements & Calculations LVIDd: 4.3 cm IVSd: 0.85 cm Ao root diam: 3.8 cm LVIDs: 2.1 cm LVPWd: 1.1 cm RVDd: 3.3 cm FS: 50.5 % LAV(MOD-bp): 39.1 ml LVAd ap4: 25.2 cm2 LVAd ap2: 25.6 cm2 LAV(MOD-bp) Indexed: 20.0 ml/m2 LVLd ap4: 8.4 cm LVLd ap2: 8.3 cm LAV(MOD-sp2): 32.2 ml EDV(MOD-sp4): 62.3 ml EDV(MOD-sp2): 65.7 ml LAV(MOD-sp4): 46.6 ml EDV(sp4-el): 64.5 ml EDV(sp2-el): 66.8 ml LVAs ap4: 13.4 cm2 LVAs ap2: 13.6 cm2 LVLs ap4: 7.3 cm LVLs ap2: 7.2 cm ESV(MOD-sp4): 21.5 ml ESV(MOD-sp2): 22.0 ml ESV(sp4-el): 20.9 ml ESV(sp2-el): 21.8 ml EF(MOD-sp4): 65.4 % EF(MOD-sp2): 66.5 % EF(sp4-el): 67.6 % SV(MOD-sp4): 40.7 ml SV(MOD-sp2): 43.7 ml SV(sp4-el): 43.6 ml SI(MOD-sp4): 20.8 ml/m2 SI(MOD-sp2): 22.3 ml/m2 LA A4 area: 17.6 cm2 LA dimension(2D): 3.5 cm RA A4 area: 14.2 cm2 TAPSE: 1.9 cm Time Measurements MV dec time: 0.21 sec Doppler Measurements & Calculations MV E max luis: 74.8 cm/sec Lat Peak E' Luis: 9.3 cm/sec Med Peak E' Luis: 9.7 cm/sec MV A max luis: 82.9 cm/sec E/E' lat: 8.0 E/E' med: 7.7 MV E/A: 0.90 Ao V2 max: 130.9 cm/sec LV V1 max: 94.6 cm/sec MV dec slope: 358.0 cm/sec2 Ao max P.9 mmHg LV V1 max P.6 mmHg Ao V2 mean: 90.0 cm/sec LV V1 mean P.8 mmHg Ao mean P.7 mmHg LV V1 mean: 62.3 cm/sec Ao V2 VTI: 33.4 cm LV V1 VTI: 23.3 cm AV (velocity ratio): 0.70 PA V2 max: 98.7 cm/sec TR max luis: 234.3 cm/sec TR max P.0 mmHg ECHO/Echo Complete Interpretation Summary Normal LV size. The left ventricular ejection fraction is 65 %. Stage 1 diastolic dysfunction. Mild (1+) tricuspid valve insufficiency. Ordering Physician: Magnus Grande Referring Physician: Paresh Carranza Performed By: Unique Butt RDCS
--- NOTE | 2024-11-16 12:25 | STRESSREP ---
Stress Test Report Pharmacologic myocardial perfusion stress test. 74-year-old man with a history of coronary artery disease status post pacemaker implantation and chest pain Resting EKG demonstrates atrial fibrillation with ventricular paced rhythm with a rate of 73 bpm. Resting blood pressure is 130/82 mmHg. 0.4 mg of regadenoson was infused per usual protocol followed by rapid intravenous saline flush injection. Continuous EKG monitoring was performed. The maximum heart rate was 84 bpm which was 57% of max impacted heart rate the maximum workload was 1 metabolic equivalent. At rest there were no ST or T wave changes noted to suggest ischemia and at peak infusion nonspecific ST changes were noted which did not meet the criteria for ischemia. No clinical angina is noted. The final blood pressure was 118/78 mmHg. Myocardial perfusion protocol. 11.8 mCi of technetium 99m sestamibi was injected at rest. 0.4 mg of regadenoson was infused per usual protocol. At peak infusion 34.6 mCi of technetium 99m sestamibi was injected stress images were obtained stress and rest images were reconstructed and compared in the short axis vertical long and horizontal long axis. Gated images were also obtained. Perfusion SPECT analysis: Review of the stress images demonstrate normal uptake of tracer noted in all areas of the myocardium. The resting images similar demonstrated normal uptake of tracer noted in all areas of the myocardium. No areas of reversibility are noted to suggest ischemia and no previous infarct is noted. Gated SPECT analysis: The gated ejection fraction is 76%. Conclusion: Normal pharmacologic myocardial perfusion stress test. Preserved ejection fraction.
== END | disposition home or self-care (01) ==
PROVIDERS: PCP Family Medicine; Referring Provider Nurse Practitioner Family; Visit Provider Nurse Practitioner Family
DX: R06.09 Other forms of dyspnea (principal); I48.0 Paroxysmal atrial fibrillation; R06.02 Shortness of breath; Z95.5 Presence of coronary angioplasty implant and graft; Z95.0 Presence of cardiac pacemaker; I10 Essential (primary) hypertension; E78.2 Mixed hyperlipidemia
CPT/HCPCS: 78452; 93017; 93306; A9500; A4216; J2785

== ENCOUNTER 2025-02-02 10:00 | Outpatient (RCR) | payer MEDICARE, OTHER, SELFPAY ==
--- NOTE | 2025-02-01 12:19 | HP.PTEVAL_ITS ---
Patient's Visit Information Visit Information Visit Information: BRIGETTE HOLGUIN is a 74 year old M referred to Physical Therapy by Dr. Deangelo Rojas DO with a diagnosis of IT band syndrome, grt troch bursitis, L radic. Date of Evaluation: 02/01/25 Physical Therapist: RAHEL Torres Visit Plan Frequency: 2x /Week Duration: 2 Months Plan: 2X/ week for 8 weeks for rolling of R QUAD and stretching of R Quad and R hip flexor, R hip strength, Core stability, gait training with HEP HEP: Polo melo stretch (just getting into position with leg off side of table, QS) Subjective Subjective: They thought it was his hip and went to Dr Israel and they put an intra articular injection in his groin and then they found out it was not his hi p but it was his back. So basically after the injection he could not walk. They said it would take time and a month later he was still not walking. Dr Mcleod did an injection in the side of the leg because his IT band was tightening up. The tightening is better. He still has pain from the groin to the knee on the R leg. He has been using Ultram topical and that helps some. He has pain with sitting, walking and the bed is worse. He has L4/L5 fusion and L3 narrowing. He has had no falls. He uses a walker at home. He has steps at home and goes up one step at a time with a railing to get up the steps. He does not sleep through the night due to pain and urination. Pain R hip pain: Pain Intensity (Out of 10): 5 back pain: Pain Intensity (Out of 10): 5 R thigh pain: Pain Intensity (Out of 10): 9 Objective Objective: Gait: walks with decrease stance time on the R LE using a rolling walker and decrease stride length. LE MMT: R hip flex 14.2 and L 16.6 R knee ext 9.2 and L 19.2 R knee flex 7.4 and L 10.4 Pt is able to heel and toe raise holding on but very weak Pt is able to do standing hip flexion but increase pain on the R when standing on the L Pt has increase pain with stretching of his Quad and hip flexor on the R. He was unable to get his R leg even with the table on the side of the table with the polo stretch. Worked into the polo stretch position for several minutes and was able to get into the position with very little knee bend. Foam rolled manual to R Quad and that helped a lot too. Balance/Special Test Scores Lower Extremity Functional Score: 26 Goals Goal 1:: I HEP Goal Time Frame: 6-8 Weeks Goal 2:: Be able to stretch his R quad without pin Goal Time Frame: 6-8 Weeks Goal 3:: Increase R hip and core strength (at the time of the eval: LE MMT: R hip flex 14.2 and L 16.6 R knee ext 9.2 and L 19.2 R knee flex 7.4 and L 10.4) Goal Time Frame: 6-8 Weeks Goal 4:: Be able to walk with least restrictive device with normal gait pattern with CGA Goal Time Frame: 6-8 Weeks Rehabilitation Potential Rehabilitation Potential: Good Anticipated Interventions Patient/Client Instruction: Educate patient on: Condition and Plan of Care For the Purpose of:: To decrease pain, To increase ROM, To improve nutrient delivery to tissue, To improve muscle performance and motor function, To improve ability to perform ADL's, To increase tolerance to activity/condition/position, To improve performance and independence with ADL's, To decrease level of supervision to perform tasks, To improve ability of physical actions for home/community/work/leisure, To improve gait and locomotor functions, To improve health of tissue, To decrease soft tissue restriction, To increase flexibility/ROM, To improve endurance, To improve balance and To improve safety with gait Therapeutic Exercise to Include: Strength training, Endurance training, Balance training, Body mechanics, Postural training, Flexibilty training, Gait and locomotor training, Neuromotor development, Passive ROM, Active ROM and Dynamic Lumbar Stabilization For the Purpose of:: To decrease pain, To decrease swelling/inflammation, To increase ROM, To improve nutrient delivery to tissue, To improve muscle performance and motor function, To improve ability to perform ADL's, To increase tolerance to activity/condition/position, To improve performance and independence with ADL's, To decrease level of supervision to perform tasks, To improve ability of physical actions for home/community/work/leisure, To improve gait and locomotor functions, To improve health of tissue, To decrease soft tissue restriction, To increase flexibility/ROM, To improve endurance, To improve balance and To improve safety with gait Functional Training to Include: Gait training For the Purpose of:: To improve gait and locomotor functions and To improve safety with gait Manual Therapy Techniques to Include: Passive ROM, Soft tissue mobilization and Other Comment: foam rolling For the Purpose of:: To decrease pain, To increase ROM, To improve nutrient delivery to tissue, To improve muscle performance and motor function, To improve ability to perform ADL's, To increase tolerance to activity/condition/position, To improve performance and independence with ADL's, To decrease level of supervision to perform tasks, To improve ability of physical actions for home/community/work/leisure, To improve gait and locomotor functions, To improve health of tissue, To decrease soft tissue restriction, To increase flexibility/ROM and To improve safety with gait Text: Thank you for the opportunity to evaluate your patient. For Medicare and Medicare HMO plans, please review the plan of care and approve it. It will need to be FAXED BACK to us at [phone] for Medicare purposes. For Medicare only, by signing this I certify the plan of care. Please let me know if there are questions or concerns regarding this plan of care. Physician Signature: Date:
--- NOTE | 2025-02-07 15:44 | HP.PT.NRP ---
Patient Information Patient Information: BRIGETTE HOLGUIN was seen in my office for initial evaluation on 02/01/25. The following Plan of Care was established for this patient: POC Established Initial Frequency: 2x /Week Initial Duration: 2 Months Anticipated Interventions Patient/Client Instruction: Educate patient on: Condition and Plan of Care For the Purpose of:: To decrease pain, To increase ROM, To improve nutrient delivery to tissue, To improve muscle performance and motor function, To improve ability to perform ADL's, To increase tolerance to activity/condition/position, To improve performance and independence with ADL's, To decrease level of supervision to perform tasks, To improve ability of physical actions for home/community/work/leisure, To improve gait and locomotor functions, To improve health of tissue, To decrease soft tissue restriction, To increase flexibility/ROM, To improve endurance, To improve balance and To improve safety with gait Therapeutic Exercise to Include: Strength training, Endurance training, Balance training, Body mechanics, Postural training, Flexibilty training, Gait and locomotor training, Neuromotor development, Passive ROM, Active ROM and Dynamic Lumbar Stabilization For the Purpose of:: To decrease pain, To decrease swelling/inflammation, To increase ROM, To improve nutrient delivery to tissue, To improve muscle performance and motor function, To improve ability to perform ADL's, To increase tolerance to activity/condition/position, To improve performance and independence with ADL's, To decrease level of supervision to perform tasks, To improve ability of physical actions for home/community/work/leisure, To improve gait and locomotor functions, To improve health of tissue, To decrease soft tissue restriction, To increase flexibility/ROM, To improve endurance, To improve balance and To improve safety with gait Functional Training to Include: Gait training For the Purpose of:: To improve gait and locomotor functions and To improve safety with gait Manual Therapy Techniques to Include: Passive ROM, Soft tissue mobilization and Other Comment: foam rolling For the Purpose of:: To decrease pain, To increase ROM, To improve nutrient delivery to tissue, To improve muscle performance and motor function, To improve ability to perform ADL's, To increase tolerance to activity/condition/position, To improve performance and independence with ADL's, To decrease level of supervision to perform tasks, To improve ability of physical actions for home/community/work/leisure, To improve gait and locomotor functions, To improve health of tissue, To decrease soft tissue restriction, To increase flexibility/ROM and To improve safety with gait Last Seen Last Seen: This patient was last seen in our office 02/02/25. Pertinent comments regarding their Physical therapy will appear below: Pt cx remaining appts with no reason given At this point I will be discontinuing this patient from physical therapy. I would be happy to see this patient again in the future if found appropriate by the physician. Thank you! Rosa Maria Davies, RAHEL Balance/Gait/Functional tests Balance/Special Test Scores Lower Extremity Functional Score: 26
== END 2025-02-02 19:00 | disposition home or self-care (01) ==
LOC: PT 10:00
PROVIDERS: PCP Family Medicine; Referring Provider Orthopaedic Surgery; Visit Provider Orthopaedic Surgery
DX: M76.30 Iliotibial band syndrome, unspecified leg (principal); M70.61 Trochanteric bursitis, right hip; M54.16 Radiculopathy, lumbar region
CPT/HCPCS: 97110; 97162

== ENCOUNTER → 2025-04-15 | Outpatient (CLI) | payer MEDICARE, OTHER, SELFPAY ==
--- NOTE | 2025-04-15 14:11 | MRI_ITS ---
PROCEDURE: LOWER EXT JOINT ONLY (ROUTINE) 04/15/2025 REASON FOR EXAM: PAIN TECHNIQUE: Procedure Code: MRILEJ Modality: MR Procedure: LOWER EXT JOINT ONLY (ROUTINE) T1, T2, PD, multiplanar and multisequence images were obtained of the right hip without IV contrast administration. COMPARISON: COMPARISON : December 31, 2024 x-ray FINDINGS: Bone marrow and osseous structures: There is a 1.7 by 1.2 cm subcortical focus of marrow edema in the superior right femoral head consistent with a developing osteochondral defect, with adjacent marrow edema, with no visible free fragment. Hardware is noted in the lumbar spine. Articular cartilage: There is severe joint space narrowing. 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 Labrum: There is degeneration throughout the labrum with a 0.8 x 0.6 cm paralabral cyst at the anterior superior labrum, axial PD image 04/02. Hip joint: There is no intra-articular body. The ligamentum teres is unremarkable. There is a large joint effusion. Hip abductors: The gluteus medius and minimus tendons are intact without tendinosis or tear. Iliopsoas tendon: There is moderate distal iliopsoas tendinopathy with increased T2 signal and attenuation. No iliopsoas bursitis. The hamstring origins appear intact. MRI/Lower Ext Joint Only (Routine) IMPRESSION: There is a 1.7 by 1.2 cm subcortical focus of marrow edema in the superior righ t femoral head consistent with a developing osteochondral defect, with adjacent marrow edema, with no visible free fragment . There is severe joint space narrowing. 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 There is degeneration throughout the labrum with a 0.8 x 0.6 cm paralabral cyst at the anterior superior labrum, axial PD image 04/02. There is a large joint effusion. There is moderate distal iliopsoas tendinopathy with increased T2 signal and at tenuation. Reading [facility]
[2025-04-15 14:40] VITALS: BP 104/72; PULSE 115; RESP 16; O2SAT 98
[2025-04-15 14:50] VITALS: BP 100/65; PULSE 115; RESP 16; O2SAT 97
[2025-04-15 15:00] VITALS: BP 118/74; PULSE 115; RESP 16; O2SAT 97
[2025-04-15 15:10] VITALS: BP 113/70; PULSE 115; RESP 16; O2SAT 97
== END | disposition home or self-care (01) ==
LOC: MRI 14:06
PROVIDERS: PCP Family Medicine; Referring Provider Orthopaedic Surgery; Visit Provider Orthopaedic Surgery
DX: M16.11 Unilateral primary osteoarthritis, right hip (principal)
CPT/HCPCS: 73721

== ENCOUNTER → 2025-05-10 | Outpatient (CLI) | payer MEDICARE, OTHER, SELFPAY ==
[2025-05-10 10:29] LABS: Hematocrit 39.9 % (40-54); Hemoglobin 13.5 g/dL (13.0-16.5); Immature Granulocytes Count 0.030 X10^3/uL (0.0-0.0); Mean Corp Hgb Conc 33.8 g/dL (32-36); Mean Corpuscular Volume 95.0 fL (80-94); Mean Platelet Vol. 9.1 fl (6.2-12.0); NRBC Flagged by Analyzer 0 % (0-5); Platelet Count 268 K/mm3 (150-450); RBC Distribution Width CV 13.8 % (11.6-14.6); RBC Distribution Width SD 48.4 fl (35.1-43.9); Red Blood Count 4.20 M/mm3 (4.6-6.2); White Blood Count 7.1 K/mm3 (4.4-11.0)
[2025-05-10 11:58] LABS: AST(SGOT) 23 U/L (<=37); Alanine Aminotransfer ALT/SGPT 17 U/L (<=46); Albumin, Serum 4.2 g/dL (3.4-4.8); Alkaline Phosphatase 70 U/L (40-129); Anion Gap 12 (5-15); BUN 19 mg/dL (4-19); BUN/Creat Ratio 14.8 RATIO (10-20); Bilirubin, Direct 0.24 mg/dL (0.00-0.30); Calcium,Total 10.1 mg/dL (7.6-11.0); Carbon Dioxide 23.4 mmol/L (21.0-32.0); Chloride 106 mmol/L (98-108); Cholesterol 179 mg/dL (<=200); Globulin 2.4 g/dL (2.2-4.2); Glucose 99 mg/dL (70-99); Low Density Lipoprotein Calc. 105 mg/dL; Potassium 4.5 mmol/L (3.3-5.1); Triglycerides 86 mg/dL; Very Low Density Lipoprotein 17 mg/dL (5-40); cholesterol:hdl ratio screen 3.15
== END | disposition home or self-care (01) ==
LOC: LAB 09:56
PROVIDERS: PCP Family Medicine; Referring Provider Nurse Practitioner Family; Visit Provider Nurse Practitioner Family
DX: I25.10 Atherosclerotic heart disease of native coronary artery without angina pectoris (principal); I49.5 Sick sinus syndrome; Z95.5 Presence of coronary angioplasty implant and graft; Z95.0 Presence of cardiac pacemaker; E03.9 Hypothyroidism, unspecified
CPT/HCPCS: 36415; 80048; 80061; 80076; 84443; 85025

== ENCOUNTER → 2025-05-19 | Outpatient (CLI) | payer MEDICARE, OTHER, SELFPAY ==
[2025-05-19 17:59] LABS: Hematocrit 37.4 % (40-54); Hemoglobin 12.5 g/dL (13.0-16.5); Immature Granulocytes Count 0.020 X10^3/uL (0.0-0.0); Mean Corp Hgb Conc 33.4 g/dL (32-36); Mean Corpuscular Volume 94.7 fL (80-94); Mean Platelet Vol. 9.6 fl (6.2-12.0); NRBC Flagged by Analyzer 0 % (0-5); Platelet Count 269 K/mm3 (150-450); RBC Distribution Width CV 13.3 % (11.6-14.6); RBC Distribution Width SD 47.2 fl (35.1-43.9); Red Blood Count 3.95 M/mm3 (4.6-6.2); White Blood Count 6.7 K/mm3 (4.4-11.0)
== END | disposition home or self-care (01) ==
LOC: MTLAB 15:50
PROVIDERS: PCP Family Medicine; Referring Provider Internal Medicine Pulmonary Disease; Visit Provider Internal Medicine Pulmonary Disease
DX: J45.40 Moderate persistent asthma, uncomplicated (principal)
CPT/HCPCS: 36415; 85025

== ENCOUNTER → 2025-05-24 | Outpatient (CLI) | payer MEDICARE, OTHER, SELFPAY ==
--- NOTE | 2025-05-24 15:58 | CT_ITS ---
PROCEDURE: EXTREMITY LOWER WITHOUT CONTRA 05/24/2025 REASON FOR EXAM: TEMPLATING FOR RIGHT GERMAN TECHNIQUE: Procedure Code: CTELWO Modality: CT Procedure: EXTREMITY LOWER WITHOUT CONTRA Coronal and Sagittal reconstruction series were provided. CONTRAST: None One or more dose reduction techniques were used (e.g., Automated exposure control, adjustment of the mA and/or kV according to patient size, use of iterative reconstruction technique). RADIATION DOSE SUMMARY: DLP: 919 mGycm COMPARISON: None FINDINGS: There is moderate osteoarthritis of the right hip with joint space narrowing, cortical irregularity with subcortical cyst formation, and marginal osteophytes. No acute fracture or dislocation is seen. Hardware is noted in the lumbar spine. The pelvic bones appear intact. Adjacent soft tissues are unremarkable. There is no visible soft tissue mass or adenopathy. Vascular calcifications are noted. Mineralization is normal. CT/Extremity Lower without Contra IMPRESSION: There is moderate osteoarthritis of the right hip with joint space narrowing, c ortical irregularity with subcortical cyst formation, and marginal osteophytes. Reading Location: [place]
--- OUTSIDE RECORDS SUMMARY | 2025-05-24 16:18 | XMS RPT_ITS | CCD ---
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 Name Role Phone Yaa Rosales Unavailable Unavailable Unknown, Referring Provider Unavailable Unav ailable Fartun Mendoza Unavailable Unavailable Philomena, Gladys Unavailable Unavailable Taylor, Odalys Unavailable Unavailable HANNA BURPEE, HARINDER Zavaleta Attending Unavailab le SHARP, ARGENIS Referring Unavailable HANNA BURPEE, HARINDER Zavaleta Attending Unavailab le SELF, SELF Referring Unavailable HANNA BURPEE, HARINDER Zavaleta Attending Unavailab le SELF, SELF Referring Unavailable HANNA BURPEE, HARINDER Zavaleta Attending Unavailab le UNKNOWN, DOC Referring Unavailable HANNA BURPEE, HARINDER Zavaleta Attending Unavailab le UNKNOWN, DOC Referring Unavailable HANNA BURPEE, HARINDER Zavaleta Attending Unavailab le SELF, SELF Referring Unavailable HANNA BURPEE, HARINDER Zavaleta Referring Unavailab le JOHN JENNINGS Attending Unavailable Dr. Reshma Arreola Primary Care Provider Dr. Reshma Arreola Attending Provider Dr. Reshma Arreola Referring Provider Dr. Jairon Dimas Attending Provider [phone] Dr. Chevy Rooney Attending Provider Nikita SHOE STAINER, SHOE STAINER-C Kathie Attending Provider Nikita SHOE STAINER, SHOE STAINER-C Kathie Referring Provider Babak MEDINA, SHOE STAINER-C Kerry Attending Provider Babak MEDINA, SHOE STAINER-C Kerry Referring Provider Babak MEDINA, SHOE STAINER-C Kerry Other Provider Argenis Mcgee Attending Provider Unavailable Dr. Reshma Arreola Primary Care Provider Dr. Rehsma Arreola Attending Provider [phone] Dr. Reshma Arreola Referring Provider [phone] Nevin, Dr. Reece Attending Provider 1(330) Nevin, Dr. Reece Referring Provider [phone] Dr. Reshma Arreola Primary Care Provider Dr. Reshma Arreola Attending Provider [phone] Dr. Reshma Arreola Referring Provider [phone]) Elba, Dr. Justice Primary Care Provider Elba, Dr. Justice Referring Provider 1(330) Dr. Reshma Arreola Attending Provider [phone] Dr. Paresh Carranza Primary Care Provider Nevin, Dr. Reece Attending Provider [phone] Nevin, Dr. Reece Referring Provider [phone]) Dr. Reshma Arreola Referring Provider [phone] Roof SHOE STAINER, SHOE STAINER-C Jairo Serrato Attending Provider Dr. Paresh Carranza Referring Provider Argenis Mcgee Attending Provider Unavailable Dr. Paresh Carranza Primary Care Provider Roof SHOE STAINER, SHOE STAINER-C Jairo Serrato Attending Provider Dr. Paresh Carranza Primary Care Provider Dr. Paresh Carranza Referring Provider Argenis Mcgee Attending Provider Unavailable Roof SHOE STAINER, SHOE STAINER-C Jairo Serrato Attending Provider Dr. Paresh Carranza Primary Care Provider Dr. Chevy Rooney Attending Provider [phone] Chevy Rooney Referring Provider [phone] Paresh Carranza Referring Provider Roof SHOE STAINER, SHOE STAINER-C Jairo Serrato Attending Provider Paresh Carranza MD Primary Care Provider Dr. Paresh Carranza Primary Care Provider Dr. Paresh Carranza Primary Care Provider Dr. Paresh Carranza Referring Provider Roof SHOE STAINER, SHOE STAINER-C Jairo H Attending Provider Dr. Joao Dominguez Attending Provider Dr. Thierry Pepe Referring Provider PARESH CARRANZA Primary Care Unavailable VITVIKTORIYA COTE Attending Unavailable VITVIKTORIYA COTE Admitting Unavailable VIKTORIYA MARCIAL Attending Unavailable PARESH ACRRANZA Primary Care Unavailable PARESH CARRANZA Primary Care Unavailable LONNIE MERCER Attending Unavailable Dr. Paresh Carranza Primary Care Provider Dr. Chevy Rooney Attending Provider Dr. Chevy Rooney Referring Provider Dr. Paresh Carranza Referring Provider Argenis Mcgee Attending Provider Unavailable Unavailable Primary Care Provider Unavailabl GLADYS Montgomery Referring Unavailabl e PROVIDER, UNKNOWN Attending Unavailable PROVIDER, UNKNOWN Admitting Unavailable Dr. Paresh Carranza Primary Care Provider Dr. Chevy Rooney Attending Provider Dr. Paresh Carranza Referring Provider Argenis Mcgee Attending Provider Unavailable Dr. Paresh Carranza MD Primary Care Provider Dr. Paresh Carranza MD Attending Provider Dr. Paresh Carranza MD Referring Provider Argenis Mcgee Attending Provider Unavailable Roof SHOE STAINER-C, Jairo H Attending Provider Roof SHOE STAINER-C, Jairo H Referring Provider Dr. Chevy Rooney MD Attending Provider Dr. Sj Rooney MDril Referring Provider Bob VALENCIA, Dr. Bright Attending Provider Bob VALENCIA, Dr. Bright Referring Provider Tere AMBROSIO, Dr. Yoder Primary Care Provider Tere AMBROSIO, Dr. Yoder Referring Provider Nevin AMBROSIO, Dr. Reece Attending Provider Roof SHOE STAINER-C, Jairo Serrato Attending Provider Tere AMBROSIO, Dr. Yoder Primary Care Physician Bob VALENCIA, Dr. Bright Attending Physician Nevin AMBROSIO, Dr. Reece Attending Physician Roof SHOE STAINER-C, Jairo Serrato Attending Physician Tere AMBROSIO, Dr. Yoder Primary Care Physician Tere AMBROSIO, Dr. Yoder Referring Provider Bob VALENCIA, Dr. Bright Attending Physician Tere AMBROSIO, Dr. Yoder Primary Care Physician Tere AMBROSIO, Dr. Yoder Referring Provider Roof SHOE STAINER-C, Jairo Serrato Attending Physician Roof SHOE STAINER-C, Jairo Serrato Referring Provider Paresh Carranza Attending Unavailable Tere, Paresh Primary Care Unavailable Paresh Carranza Referring Unavailable Roof SHOE STAINER, Jairo Serrato Attending Unavailable CarranzaParesh Primary Care Unavailable CarranzaParesh Referring Unavailable CarranzaParesh Primary Care Unavailable NevinChevy Referring Unavailable NevinChevy quiroz Attending Unavailable Roof SHOE STAINER, Jairo Serrato Attending Unavailable Roof SHOE STAINER, Jairo Serrato Referring Unavailable CarranzaParesh Primary Care Unavailable Roof SHOE STAINER, Jairo Serrato Referring Unavailable Roof SHOE STAINER, Jairo Serrato Attending Unavailable CarranzaParesh fritz Primary Care Unavailable Paresh Carranza Primary Care Unavailable Deangelo Rojas Admitting Unavailable Deangelo Rojas Attending Unavailable Roof SHOE STAINER, Jairo Serrato Referring Unavailable Roof SHOE STAINER, Jairo Serrato Attending Unavailable Carranza, Paresh Primary Care Unavailable Paresh Carranza Primary Care Unavailable BorDeangelo landry Referring Unavailable BorDeangelo landry Attending Unavailable Roof SHOE STAINER, Jairo Serrato Attending Unavailable Carranza, Paresh Referring Unavailable Carranza, Paresh Primary Care Unavailable Carranza, Paresh Primary Care Unavailable Borruso, Deangelo Referring Unavailable Borruso, Deangelo Attending Unavailable Carranza, Paresh Primary Care Unavailable Sibilia, Jairon V Referring Unavailable Sibilia, Jairon V Attending Unavailable Carranza, Paresh Primary Care Unavailable Carranza, Paresh Referring Unavailable Borruso, Deangelo Attending Unavailable Carranza, Paresh Primary Care Unavailable Carranza, Paresh Referring Unavailable Borruso, Deangelo Attending Unavailable Carranza, Paresh Primary Care Unavailable Nevin, Chevy Attending Unavailable Carranza, Paresh Primary Care Unavailable Nevin, [place] Attending Unavailable Carranza, Paresh Primary Care Unavailable Nevin, Chevy Attending Unavailable Carranza, Paresh Primary Care Unavailable Carranza, Paresh Referring Unavailable Borruso, Deangelo Attending Unavailable Nevin, [place] Attending Unavailable Carranza, Paresh Primary Care Unavailable Roof SHOE STAINER, Jairo Serrato Attending Unavailable Carranza, Paresh Primary Care Unavailable Carranza, Paresh Referring Unavailable EverardoArgenis mukherjee Attending Unavailable Carranza, Paresh Primary Care Unavailable Carranza, Paresh Referring Unavailable Carranza, Paresh Primary Care Unavailable Borruso, Deangelo Referring Unavailable Borruso, Deangelo Attending Unavailable Carranza, Paresh Primary Care Unavailable Borruso, Deangelo Referring Unavailable Borruso, Deangelo Attending Unavailable Allergies Allergy Classification Reported Allergen(s) Allergy Type Date of Onset Reaction(s) Facility (20 sources) clopidogrel; Translations: [CLOPIDOGREL] Drug Allergy 1 [facility] (20 sources) Metoprolol; Translations: [METOPROLOL] Drug Allergy 1 [facility] (20 sources) Nystatin; Translations: [NYSTATIN] Drug Allergy 9 Other: See Comments [facility] (20 sources) oxybutynin; Translations: [OXYBUTYNIN] Drug Allergy 1 Shortness of Breath [facility] (20 sources) Sulfonamides (Antibiotic); Translations: [SULFA (SULFONAMIDE ANTIBIOTICS)] Allergy to substance 7 Hives, Shortness of Breath [facility] (6 sources) MEDICAL TAPE Propensity to adverse reactions 2 Itching [facility] Work Phone: (20 sources) Adhesive Tape; Translations: [adhesive tape] Propensity to adverse reactions 2 [facility] Comment on above: MEDICAL TAPE (3 sources) Adhesive Tape; Translations: [ADHESIVE TAPE (ROSINS)] Propensity to adverse reactions to substance 4 [facility] (3 sources) sulfaSALAzine; Translations: [SULFASALAZINE] Drug Allergy 3 [facility] (1 source) clopidogrel Drug Allergy 5 [facility] Repository (1 source) Metoprolol Drug Allergy 5 [facility] Rep[facility] (1 source) Nystatin Drug Allergy 5 [facility] Rep[facility] (1 source) oxybutynin Drug Allergy 5 [facility] Repository Medications Current Medications Medication Drug Class(es) Dates Sig (Normalized) Sig (Original) [id number] 200 actuat albuterol 0.09 mg/actuat metered dose inhaler (20 sources) beta2-Adrenergic Agonist Start: 02-19-2024 Start: 07-19-2020 End: 12-19-2020 Albuterol Sulfate 90 mcg/act uation HFA aerosol inhaler Discontinued 2 NMA INHALATION Q4H as needed for shortness of breath or wheezing 8.5 6 July 19, 2020 1:00am December 19, 2020 11:10am administer with spacer Start: 07-19-2020 End: 12-19-2020 take 1 puff(s) by inhalation every four hours Albuterol Sulfate Discontinued 2 PUFF INHALATION Q4H 8.5 July 19, 2020 1:00am December 19, 2020 11:10am administer with spacer Start: 11-28-2017 End: 06-24-2018 take 2.5 mg by inhalation every four hours as needed Albuterol Sulfate 2.5 mg /3 mL (0.083 %) solution for nebulization Discontinued 2.5 mg INHALATION Q4H as needed for asthma J45.909 November 28, 2017 12:00am June 24, 2018 9:18am Lqekubzvdq-Yjovsdxs-Xyuxstzx ol (20 sources) Corticosteroid, beta2-Adrenergic Agonist Start: 01-05-2025 Start: 01-05-2025 Budesonide-Gly copyr-Formoterol 160-9-4.8 mcg/actuation HFA aerosol inhaler Active NMA INHALATION January 05, 2025 12:00am lunges Complies with drug therapy Start: 01-05-2025 Budesonide-Gly copyr-Formoterol 160-9-4.8 mcg/actuation HFA aerosol inhaler Active NMA INHALATION January 05, 2025 12:00am lunges Start: 01-05-2025 Budesonide-Gly copyr-Formoterol 160-9-4.8 mcg/actuation HFA aerosol inhaler Active NMA INHALATION January 05, 2025 12:00am Start: 04-06-2024 End: 05-05-2024 Xeoipyopmu-Wtxnjydi-Ifdafiqb ol (Breztri Aerosphere) 160-9-4.8 mcg/actuation HFA aerosol inhaler Discontinued NMA INHALATION April 06, 2024 12:00am May 05, 2024 2:11pm COPD Start: 04-06-2024 End: 05-05-2024 Duatvykkgd-Mqegdvgs-Crlfhucm ol (Breztri Aerosphere) 160-9-4.8 mcg/actuation HFA aerosol inhaler Discontinued NMA INHALATION April 06, 2024 12:00am May 05, 2024 2:11pm 24 hr dilTIAZem hydrochloride 240 mg extended release oral capsule (20 sources) Calcium Channel Elza Start: 01-07-2025 take 1 capsule by mouth once daily, then take 1 capsule by mouth every twenty-four hours Start: 01-06-2025 End: 01-07-2025 take 1 tablet by mouth once daily in the morning Diltiazem Hcl 180 mg tablet extended release 24 hr Discontinued 180 mg PO EVERY MORNING January 06, 2025 10:08am January 07, 2025 9:25am Start: 01-05-2025 End: 01-06-2025 take 1 tablet by mouth once daily in the morning Diltiazem Hcl 240 mg tablet extended release 24 hr Discontinued 240 mg PO EVERY MORNING 30 January 05, 2025 12:00am January 06, 2025 10:09am Start: 11-08-2024 End: 01-05-2025 take 1 capsule by mouth once daily in the morning Diltiazem Hcl 180 mg capsule,extended release 24 hr Discontinued 180 mg PO EVERY MORNING 90 December 07, 2024 10:19am January 05, 2025 9:58am Start: 05-05-2024 End: 11-08-2024 take 1 capsule by mouth once daily Diltiazem Hcl 120 mg capsule,extended release 24hr Discontinued 120 mg PO DAILY 90 July 07, 2024 4:28pm November 08, 2024 11:03am Start: 10-28-2023 End: 11-13-2023 take 1 capsule by mouth once daily Diltiazem Hcl 120 mg capsule,extended release 24hr Discontinued 120 mg PO DAILY 60 October 28, 2023 12:00am November 13, 2023 11:38am Start: 05-23-2017 End: 06-10-2019 take 1 capsule by mouth once daily Diltiazem Hcl 120 mg capsule,extended release 24hr Discontinued 120 mg PO DAILY 90 September 22, 2018 2:55pm June 10, 2019 11:02am Start: 10-31-2016 End: 01-02-2022 take 1 capsule by mouth once daily Diltiazem Hcl 180 mg capsule,extended release 24hr Discontinued 180 mg PO DAILY 90 June 19, 2020 4:59pm May 30, 2021 6:29pm Comment on above: Take 180 mg by mouth once daily. Dr. Hollingsworth levothyroxine sodium 0.025 mg oral tablet (20 sources) l-Thyroxine Start: 05-05-2024 End: 07-07-2024 take 1 tablet by mouth once daily Start: 09-12-2022 take 75 ug by mouth once daily Levothyroxine Active 75 MCG PO DAILY September 12, 2022 1:00am take 1 capsule by mo [facility] once daily before breakfast levothyroxine 75 mcg cap Take 75 mcg by mouth daily before breakfast. 0 Active Comment on above: Take 75 mcg by mouth daily before breakfast. rivaroxaban 20 mg oral tablet (20 sources) Factor Xa Inhibitor Start: 05-05-2024 take 1 tablet by mouth once daily at dinner Start: 07-22-2013 End: 02-07-2023 take 1 tablet by mouth once daily at dinner Rivaroxaban (Xarelto) 20 mg tablet Discontinued 20 mg PO DAILY 90 September 10, 2022 5:04pm February 07, 2023 10:16am must administer with evening meal Comment on above: Take 1 tablet by meenu th daily with dinner. 60 actuat tiotropium 0.0025 mg/actuat inhalation spray (8 sources) Anticholinergic Start: 01-05-2025 Completed/Discontinued Medications Medication Drug Class(es) Dates Sig (Normalized) Sig (Original) 24 hr alfuzosin hydrochloride 10 mg extended release oral tablet (20 sources) alpha-Adrenergic Elza Start: 05-29-2021 End: 09-03-2021 take 1 tablet by mouth once daily Alfuzosin 10 mg tablet extended release 24 hr Discontinued 10 mg PO DAILY May 29, 2021 12:00am September 03, 2021 10:02am amiodarone hydrochloride 200 mg oral tablet (20 sources) Antiarrhythmic Start: 11-13-2023 End: 05-05-2024 Amiodarone 200 mg tablet Discontinued 100 mg PO DAILY 45 January 14, 2024 12:00am May 05, 2024 3:00pm Start: 11-13-2023 End: 11-13-2023 take 100 mg by mouth once daily Amiodarone Active 100 MG PO DAILY 45 November 13, 2023 1:10pm Start: 10-12-2021 End: 03-31-2023 Amiodarone 200 mg tablet Discontinued 100 mg PO DAILY 90 August 19, 2022 12:24pm March 31, 2023 3:58pm Start: 10-12-2021 End: 03-31-2023 take 100 mg by mouth once daily Amiodarone Discontinue d 100 MG PO DAILY August 19, 2022 12:24pm March 31, 2023 3:58pm Start: 10-08-2019 End: 10-12-2021 take 1 tablet by mouth once daily Amiodarone 200 mg tablet Discontinued 200 mg PO DAILY 90 August 17, 2021 2:32pm October 12, 2021 5:55pm Start: 08-02-2019 End: 10-08-2019 take 2 tablets by mouth twice daily, then take 1 tablet by mouth once daily Amiodarone 200 MG tablet Discontinued 200 mg PO DAILY 90 August 02, 2019 1:00am October 08, 2019 12:31pm 400 milligrams p.o. twice daily for 3 days then 200 mg daily Start: 08-02-2019 End: 10-08-2019 take 400 mg by mouth twice daily, then take 200 mg by mouth once daily Amiodarone Discontinued 200 MG PO DAILY August 02, 2019 1:00am October 08, 2019 12:31pm 400 milligrams p.o. twice daily for 3 days then 200 mg daily take 2 tablets by mo uth once daily amiodarone (PACERONE) 100 mg tablet Take 200 mg by mouth once daily. 0 Active Comment on above: Take 200 mg by mouth once daily. aspirin 81 mg delayed release oral tablet (20 sources) Platelet Aggregation Inhibitor, Nonsteroidal Anti-inflammatory Drug Start: 07-29-2019 End: 03-31-2023 take 1 tablet by mouth once daily Aspirin 81 MG tablet Discontinued 81 mg PO DAILY@1800 July 29, 2019 1:00am March 31, 2023 3:59pm Start: 08-24-2012 take 1 tablet by meenu th once daily at mealtime Aspirin 81 mg Tab Take 1 tablet by mouth once daily. Take with food. 30 tablet 08/24/2012 Active Comment on above: Take 1 tablet by meenu th once daily. Take with food. azithromycin 250 mg oral tablet (20 sources) Macrolide Antimicrobial Start: 01-10-20 End: 06-03-20 Azithromycin (Zithromax) 250 mg tablet Discontinued 0 PO .COMPLEX 6 0 January 09, 2022 12:00am June 03, 2022 3:55pm For 250 mg dose pack: take 500 mg today (day 1), then 250 mg for 4 days (days 2-5) PO budesonide 3 mg delayed release oral capsule (20 sources) Corticosteroid Start: 12-20-19 End: 12-20-19 take 1 mg by mouth once daily Budesonide 3 mg capsule,delayed,exte nd.release Discontinued 1 mg PO DAILY December 19, 2020 12:00am December 19, 2020 11:10am Start: 12-19-2020 End: 12-19-2020 take 1 mg by mouth once daily Budesonide Discontinued 1 MG PO DAILY December 19, 2020 12:00am December 19, 2020 11:10am Start: 07-19-2020 End: 10-12-2020 take 0.5 mg by inhalation twice daily Budesonide 0.5 mg/2 mL suspension for nebulization Discontinued 0.5 mg INHALATION TWICE A DAY 60 6 July 31, 2020 1:28pm October 12, 2020 12:38pm Start: 10-12-2019 End: 07-19-2020 take 1 mg by inhalation once daily Budesonide 1 mg/2 mL suspension for nebulization Discontinued 1 mg INHALATION DAILY 60 June 21, 2020 2:24pm July 19, 2020 12:31pm Chronic obstructive pulmonary disease, unspecified Start: 10-12-2019 End: 06-21-2020 take 1 mL by inhalation once daily Budesonide 1 mg/2 mL suspension for nebulization Discontinued 2 mL INHALATION DAILY 60 October 12, 2019 12:00am June 21, 2020 2:24pm Chronic obstructive pulmonary disease, unspecified Start: 05-07-2019 End: 05-17-2019 take 180 ug by inhalation twice daily Budesonide (Pulmicort Flexhaler) 180 mcg/actuation aerosol powdr breath activated Discontinued 2 INH INHALATION TWICE A DAY May 07, 2019 9:36am May 17, 2019 1:42pm Start: 05-07-2019 End: 05-17-2019 take 180 ug by inhalation twice daily Budesonide (Pulmicort Flexhaler) 180 mcg/actuation aerosol powdr breath activated Discontinued 2 NMA INHALATION TWICE A DAY 1 May 07, 2019 12:00am May 17, 2019 1:42pm Start: 05-07-2019 End: 05-17-2019 take 180 ug by inhalation twice daily Budesonide (Pulmicort Flexhaler) 180 mcg/actuation aerosol powdr breath activated Discontinued 2 NMA INHALATION TWICE A DAY May 07, 2019 12:00am May 17, 2019 1:42pm Start: 05-07-2019 End: 05-17-2019 take 180 ug by inhalation twice daily Budesonide (Pulmicort Flexhaler) 180 mcg/actuation aerosol powdr breath activated Discontinued 2 INH INHALATION TWICE A DAY May 06, 2019 11:00pm May 17, 2019 12:42pm Start: 05-07-2019 End: 05-17-2019 take 180 ug by inhalation twice daily Budesonide (Pulmicort Flexhaler) 180 mcg/actuation aerosol powdr breath activated Discontinued 2 INH INHALATION TWICE A DAY May 07, 2019 12:00am May 17, 2019 1:42pm Start: 11-28-2017 End: 05-07-2019 take 0.5 mg by inhalation every twelve hours Budesonide 0.5 mg/2 mL suspension for nebulization Discontinued 0.5 mg INHALATION Q12H 60 6 May 05, 2019 11:41am May 07, 2019 9:36am asthma J45.909 Start: 05-23-2017 End: 11-28-2017 take 1 puff(s) by inhalation once daily Budesonide Discontinued 2 PUFF INHALATION DAILY May 23, 2017 10:27am November 28, 2017 7:33am Start: 05-23-2017 End: 11-28-2017 Budesonide 1 PUFF inhaler Discontinued 2 NMA INHALATION DAILY May 23, 2017 12:00am November 28, 2017 7:33am Start: 05-23-2017 End: 11-28-2017 take 1 puff(s) by inhalation once daily Budesonide Discontinued 2 PUFF INHALATION DAILY May 22, 2017 11:00pm November 28, 2017 6:33am Start: 05-23-2017 End: 11-28-2017 take 1 puff(s) by inhalation once daily Budesonide Discontinued 2 PUFF INHALATION DAILY May 23, 2017 12:00am November 28, 2017 7:33am BUDESONIDE ORAL Take by mouth. 0 Active Comment on above: Take by mouth. cholecalciferol 0.025 mg oral capsule (12 sources) Vitamin D Start: 2024 End: 2024 take 1 capsule by mouth once daily Cholecalciferol (Vitamin D3) 25 mcg (1,000 unit) capsule Discontinued 25 ug PO daily November 08, 2024 12:00am January 05, 2025 9:36am clindamycin 300 mg oral capsule (20 sources) Lincosamide Antibacterial Start: 2016 End: 2017 take 1 capsule by mouth every six hours Clindamycin Hcl 300 MG capsule Discontinued 300 mg PO EVERY 6 HOURS 40 0 May 23, 2017 12:00am September 23, 2017 2:59pm COMPOUNDED PRESCRIPTION (1 source) Start: 2015 COMPOUNDED PRESCRIPTION CPAP 0 2015 Active Comment on above: CPAP CPAP (1 source) Start: 2017 CPAP Use as directed. 1 Device 0 08/25/2017 Active Comment on above: Use as directed. dextromethorphan hydrobromide 3 mg/ml oral solution (20 sources) Uncompetitive X-zppaer-B-aspartate Receptor Antagonist, Sigma-1 Agonist Start: 2017 End: 2017 take 30 mg by mouth three times daily Dextromethorphan Hbr 15 MG/5 ML syrup Discontinued 30 mg PO THREE TIMES A DAY 1 September 10, 2017 1:00am September 23, 2017 2:59pm doxycycline hyclate 100 mg oral tablet (20 sources) Tetracycline-class Drug Start: 2021 End: 2021 Doxycycline Hyclate 100 mg tablet Discontinued 100 mg PO TWICE A DAY August 15, 2021 1:00am September 03, 2021 10:02am Starting with an empty stomach, take 2 or 3 crackers, take the medication with small glass of water. Do not eat or drink for 20 minutes afterwards. DULoxetine 60 mg delayed release oral capsule (20 sources) Serotonin and Norepinephrine Reuptake Inhibitor Start: 2020 End: 2021 take 1 capsule by mouth once daily Duloxetine 60 mg capsule,delayed release(DR/EC) Discontinued 60 mg PO DAILY October 05, 2020 1:00am August 15, 2021 3:37pm Start: 08-26-2019 End: 10-05-2020 take 1 capsule by mouth once daily Duloxetine (Cymbalta) 30 mg capsule,delayed release(DR/EC) Discontinued 30 mg PO DAILY August 26, 2019 1:00am October 05, 2020 3:11pm Start: 06-24-2018 End: 08-26-2019 take 1 capsule by mouth once daily Duloxetine (Cymbalta) 20 mg capsule,delayed release(DR/EC) Discontinued 20 mg PO DAILY June 24, 2018 1:00am August 26, 2019 11:41am Comment on above: Take 60 mg by mouth once daily. fluconazole 100 mg oral tablet (20 sources) Azole Antifungal Start: 04-06-20 End: 06-10-20 take 1 tablet by mouth once daily Fluconazole (Diflucan) 100 mg tablet Discontinued 100 mg PO DAILY 02 07April 06, 2019 12:00am June 10, 2019 11:00am 30 actuat fluticasone furoate 0.1 mg/actuat dry powder inhaler (20 sources) Corticosteroid Start: 08-09-19 End: 10-12-19 take 100 ug by inhalation once daily Fluticasone Furoate (Arnuity Ellipta) 100 mcg/actuation blister with device Discontinued 1 NMA INHALATION DAILY 90 August 30, 2019 11:27am October 12, 2019 9:54am Start: 05-17-2019 End: 06-15-2019 take 200 ug by inhalation once daily Fluticasone Furoate (Arnuity Ellipta) 200 mcg/actuation blister with device Discontinued 1 INH INHALATION daily May 17, 2019 1:42pm June 15, 2019 9:12am administer at approximately the same time(s) each day Start: 05-17-2019 End: 06-15-2019 take 200 ug by inhalation once daily Fluticasone Furoate (Arnuity Ellipta) 200 mcg/actuation blister with device Discontinued 1 NMA INHALATION daily 30 May 17, 2019 12:00am June 15, 2019 9:12am administer at approximately the same time(s) each day Start: 05-17-2019 End: 06-15-2019 take 200 ug by inhalation once daily Fluticasone Furoate (Arnuity Ellipta) 200 mcg/actuation blister with device Discontinued 1 NMA INHALATION daily May 17, 2019 12:00am June 15, 2019 9:12am administer at approximately the same time(s) each day Start: 05-17-2019 End: 06-15-2019 take 200 ug by inhalation once daily Fluticasone Furoate (Arnuity Ellipta) 200 mcg/actuation blister with device Discontinued 1 INH INHALATION daily May 16, 2019 11:00pm June 15, 2019 8:12am administer at approximately the same time(s) each day Start: 05-17-2019 End: 06-15-2019 take 200 ug by inhalation once daily Fluticasone Furoate (Arnuity Ellipta) 200 mcg/actuation blister with device Discontinued 1 INH INHALATION daily May 17, 2019 12:00am June 15, 2019 9:12am administer at approximately the same time(s) each day Fluticasone Furoate-Vilanterol (20 sources) Corticosteroid, beta2-Adrenergic Agonist Start: 07-04-2021 End: 06-03-2022 Fluticasone Furoate-Vilanterol (Breo Ellipta) 200-25 mcg/dose blister with device Discontinued 1 NMA INHALATION daily 60 6 July 04, 2021 1:58pm June 03, 2022 3:55pm after inhalation, rinse mouth with water and spit out; do not swallow Start: 07-04-2021 End: 06-03-2022 Fluticasone Furoate-Vilanter ol (Breo Ellipta) 200-25 mcg/dose blister with device Discontinued 1 NMA INHALATION daily 60 July 04, 2021 1:58pm June 03, 2022 3:55pm after inhalation, rinse mouth with water and spit out; do not swallow Start: 07-04-2021 End: 06-03-2022 Fluticasone Furoate-Vilanter ol (Breo Ellipta) 200-25 mcg/dose blister with device Discontinued 1 INH INHALATION daily July 04, 2021 1:58pm June 03, 2022 3:55pm after inhalation, rinse mouth with water and spit out; do not swallow Start: 07-04-2021 End: 06-03-2022 Fluticasone Furoate-Vilanter ol (Breo Ellipta) 200-25 mcg/dose blister with device Discontinued 1 INH INHALATION daily July 04, 2021 12:58pm June 03, 2022 2:55pm after inhalation, rinse mouth with water and spit out; do not swallow Start: 07-04-2021 Fluticasone Fu roate-Vilanterol (Breo Ellipta) 200-25 mcg/dose blister with device Active 1 INH INHALATION daily July 04, 2021 1:58pm after inhalation, rinse mouth with water and spit out; do not swallow Start: 06-27-2021 End: 07-04-2021 Fluticasone Furoate-Vilanter ol (Breo Ellipta) 200-25 mcg/dose blister with device Discontinued 1 NMA INHALATION daily 60 June 27, 2021 1:07pm July 04, 2021 1:58pm after inhalation, rinse mouth with water and spit out; do not swallow Start: 06-27-2021 End: 07-04-2021 Fluticasone Furoate-Vilanter ol (Breo Ellipta) 200-25 mcg/dose blister with device Discontinued 1 NMA INHALATION daily June 27, 2021 1:07pm July 04, 2021 1:58pm after inhalation, rinse mouth with water and spit out; do not swallow Start: 06-27-2021 End: 07-04-2021 Fluticasone Furoate-Vilanter ol (Breo Ellipta) 200-25 mcg/dose blister with device Discontinued 1 INH INHALATION daily 60 June 27, 2021 12:07pm July 04, 2021 12:58pm after inhalation, rinse mouth with water and spit out; do not swallow Start: 06-27-2021 End: 07-04-2021 Fluticasone Furoate-Vilanter ol (Breo Ellipta) 200-25 mcg/dose blister with device Discontinued 1 INH INHALATION daily 60 June 27, 2021 1:07pm July 04, 2021 1:58pm after inhalation, rinse mouth with water and spit out; do not swallow Start: 10-12-2020 End: 06-27-2021 Fluticasone Furoate-Vilanter ol (Breo Ellipta) 200-25 mcg/dose blister with device Discontinued 1 INH INHALATION daily October 12, 2020 12:40pm June 27, 2021 1:07pm after inhalation, rinse mouth with water and spit out; do not swallow Start: 10-12-2020 End: 06-27-2021 Fluticasone Furoate-Vilanter ol (Breo Ellipta) 200-25 mcg/dose blister with device Discontinued 1 NMA INHALATION daily 60 October 12, 2020 1:00am June 27, 2021 1:07pm after inhalation, rinse mouth with water and spit out; do not swallow Start: 10-12-2020 End: 06-27-2021 Fluticasone Furoate-Vilanter ol (Breo Ellipta) 200-25 mcg/dose blister with device Discontinued 1 NMA INHALATION daily 60 October 12, 2020 1:00am June 27, 2021 1:07pm after inhalation, rinse mouth with water and spit out; do not swallow Start: 10-12-2020 End: 06-27-2021 Fluticasone Furoate-Vilanter ol (Breo Ellipta) 200-25 mcg/dose blister with device Discontinued 1 INH INHALATION daily 60 October 12, 2020 12:00am June 27, 2021 12:07pm after inhalation, rinse mouth with water and spit out; do not swallow Start: 10-12-2020 End: 06-27-2021 Fluticasone Furoate-Vilanter ol (Breo Ellipta) 200-25 mcg/dose blister with device Discontinued 1 INH INHALATION daily 60 October 12, 2020 1:00am June 27, 2021 1:07pm after inhalation, rinse mouth with water and spit out; do not swallow fluticasone-remigio nterol (BREO ELLIPTA) 200-25 mcg/dose inhaler Inhale 1 Inhalation as instructed once daily. 0 Active Comment on above: Inhale 1 Inhalation as instructed once daily. folic acid 1 mg oral tablet (20 sources) Start: 07-29-2019 End: 10-05-2020 take 2 tablets by mouth once daily Folic Acid 1 MG tablet Discontinued 2 mg PO DAILY July 29, 2019 1:00am October 05, 2020 3:11pm supplement Start: 07-29-2019 End: 10-05-2020 take 2 mg by mouth once daily Folic Acid Discontinued 2 MG PO DAILY July 29, 2019 1:00am October 05, 2020 3:11pm furosemide 40 mg oral tablet (20 sources) Loop Diuretic Start: 02-13-2021 End: 02-18-2021 take 1 tablet by mouth once daily Furosemide (Lasix) 40 mg tablet Discontinued 40 mg PO DAILY 5 5 0 February 13, 2021 12:00am February 17, 2021 12:00am February 18, 2021 12:01am guaiFENesin 20 mg/ml oral solution (20 sources) Start: 01-09-2022 End: 06-03-2022 take 200 mg by mouth every four hours as needed for cough Guaifenesin 100 mg/5 mL liquid Discontinued 200 mg PO Q4H as needed for cough 200 1 January 09, 2022 12:00am June 03, 2022 3:55pm 12 hr guaiFENesin 1200 mg / pseudoephedrine hydrochloride 120 mg extended release oral tablet (20 sources) alpha-Adrenergi c Agonist Start: 09-10-2017 End: 04-24-2018 Pseudoephedrine-Gu aifenesin 1 EACH tablet extended release 12 hr Discontinued 1 NMA PO TWICE A DAY 14 0 September 10, 2017 1:00am April 24, 2018 2:06pm Start: 09-10-2017 End: 04-24-2018 Pseudoephedrine-Guaifenesin Discontinued 1 EACH PO TWICE A DAY September 10, 2017 1:00am April 24, 2018 2:06pm hydroCHLOROthiazide 12.5 mg / losartan potassium 50 mg oral tablet (20 sources) Thiazide Diuretic, Angiotensin 2 Receptor Elza Start: 08-26-2019 End: 08-30-2019 Losartan-Hydrochlorothiazide 50-12.5 mg tablet Discontinued 1 {tbl} PO DAILY 03 07August 26, 2019 1:00am August 30, 2019 5:14pm Start: 08-26-2019 End: 08-30-2019 take 1 tablet by mouth once daily Losartan-Hydrochlorothiazide Discontinue d 1 TABLET PO DAILY August 26, 2019 1:00am August 30, 2019 5:14pm hydroxychloroquine sulfate 200 mg oral tablet (20 sources) Antimalarial, Antirheumatic Agent Start: 10-05-2020 End: 08-15-2021 take 1 tablet by mouth twice daily Hydroxychloroquine 200 mg tablet Discontinued 200 mg PO TWICE A DAY October 05, 2020 1:00am August 15, 2021 3:37pm Start: 04-20-2018 End: 04-24-2018 take 1 tablet by mouth twice daily Hydroxychloroquine (Plaquenil) 200 mg tablet Discontinued 200 mg PO TWICE A DAY April 20, 2018 12:00am April 24, 2018 2:07pm Start: 10-31-2016 End: 09-23-2017 take 1 tablet by mouth twice daily at mealtime Hydroxychloroquine 200 MG tablet Discontinued 200 mg PO TWICE DAILY WITH MEALS May 23, 2017 12:00am September 23, 2017 3:00pm Comment on above: Take 1 tablet by [facility] twice daily. Dr. Steen lidocaine hydrochloride 40 mg/ml mucous membrane topical solution (20 sources) Antiarrhythmic, Amide Local Anesthetic Start: 10-05-2020 End: 09-03-2021 Lidocaine Hcl 4 % (40 mg/mL) solution Discontinued 1 mL MUCOUS MEM ONCE as needed for pain October 05, 2020 1:00am September 03, 2021 10:02am Start: 10-05-2020 End: 09-03-2021 Lidocaine Hcl Discontinued 1 ML MUCOUS MEM ONCE October 05, 2020 1:00am September 03, 2021 10:02am lisinopril 10 mg oral tablet (20 sources) Angiotensin Converting Enzyme Inhibitor Start: 08-30-2019 End: 08-30-2019 take 1 tablet by mouth once daily Lisinopril 10 mg tablet Discontinued 10 mg PO DAILY 30 August 30, 2019 1:00am August 30, 2019 5:16pm losartan potassium 25 mg oral tablet (20 sources) Angiotensin 2 Receptor Elza Start: 06-17-2022 End: 07-07-2024 take 1 tablet by mouth once daily Losartan 25 mg tablet Discontinued 25 mg PO DAILY 90 3 April 21, 2024 3:16pm July 07, 2024 4:29pm Start: 08-30-2019 End: 06-03-2022 Losartan 25 mg tablet Discon tinued 0 .ROUTE .COMPLEX 90 3 August 17, 2021 2:32pm October 11, 2021 3:24pm TAKE 1 TABLET DAILY Comment on above: Take 25 mg by mouth once daily. magnesium gluconate 250 mg oral tablet (4 sources) Start: 11-08-2024 End: 01-05-2025 take 1 tablet by mouth once Magnesium Gluconate 12.5 mg magne- sium (250 mg) tablet Discontinued 1000 mg PO ONCE November 08, 2024 12:00am January 05, 2025 9:36am Magnesium Gluconate 12.5 mg magne- sium (250 mg) tablet (8 sources) Start: 11-08-2024 End: 01-05-2025 take 1 tablet by mouth once Magnesium Gluconate 12.5 mg magne- sium (250 mg) tablet Discontinued 1000 mg PO ONCE November 08, 2024 12:00am January 05, 2025 9:36am Start: 11-08-2024 take 1 tablet by mouth once Ma gnesium Gluconate 12.5 mg magne- sium (250 mg) tablet Active 1000 mg PO ONCE November 08, 2024 12:00am meloxicam 15 mg oral tablet (20 sources) Nonsteroidal Anti-inflammatory Drug Start: 09-09-2022 End: 11-08-2024 take 1 tablet by mouth once daily Meloxicam 15 mg tablet Discontinued 15 mg PO DAILY September 09, 2022 1:00am November 08, 2024 10:39am Comment on above: Take 15 mg by mouth once daily. methotrexate 2.5 mg oral tablet (20 sources) Folate Analog Metabolic Inhibitor Start: 06-10-2019 End: 02-21-2020 Methotrexate Sodium 2.5 mg tablet Discontinued 15 mg PO June 10, 2019 11:01am February 21, 2020 2:23pm Start: 06-10-2019 End: 02-21-2020 Methotrexate Sodium Disconti nued 15 MG PO June 10, 2019 11:01am February 21, 2020 2:23pm Start: 05-23-2017 End: 06-10-2019 Methotrexate Sodium 2.5 MG t ablet Discontinued 12.5 mg PO May 23, 2017 12:00am June 10, 2019 11:02am Start: 05-23-2017 End: 06-10-2019 Methotrexate Sodium Disconti nued 12.5 MG PO May 23, 2017 12:00am June 10, 2019 11:02am METHOTREXATE ORA L Take by mouth. 0 Active Comment on above: Take by mouth. methylPREDNISolone 4 mg oral tablet (20 sources) Corticosteroid Start: End: take 1 tablet by mouth once Methylprednisolone (Medrol (Tony)) 4 mg tablets,dose pack Discontinued 0 PO per package directions 21 September 03, 2021 1:00am September 19, 2021 10:46am PO PER PKG DIR Nebulizer (20 sources) Start: End: Nebulizer Discontinued 1 U INHALATION NEEDED as needed for Sob &/Or Wheezing December 11, 2019 11:45am October 05, 2020 3:10pm As directed Start: 12-11-2019 End: 10-05-2020 Nebulizer Discontinued 1 UNI T INHALATION NEEDED December 11, 2019 10:45am October 05, 2020 2:10pm As directed Start: 12-11-2019 End: 10-05-2020 Nebulizer Discontinued 1 UNI T INHALATION NEEDED December 11, 2019 11:45am October 05, 2020 3:10pm As directed Start: 10-12-2019 End: 12-11-2019 Nebulizer Discontinued 1 Mar ch 2019 9:54am December 11, 2019 11:45am As directed Start: 10-12-2019 End: 12-11-2019 Nebulizer Discontinued 1 0 M arch 2019 12:00am December 11, 2019 11:45am As directed Start: 10-12-2019 End: 12-11-2019 Nebulizer Discontinued 1 Mar ch 2019 11:00pm December 11, 2019 10:45am As directed Start: 10-12-2019 End: 12-11-2019 Nebulizer Discontinued Oct 2019 12:00am December 11, 2019 11:45am As directed nitroglycerin 0.4 mg sublingual tablet (20 sources) Nitrate Vasodilator Start: 08-22-2016 End: 10-27-2024 Nitroglycerin 0.4 mg tablet, sublingual Discontinued 0.4 mg SL Q5M as needed for Chest Pain 26 10February 11, 2019 10:00am October 27, 2024 4:20pm Start: 08-22-2016 End: 02-11-2019 Nitroglycerin Active 0.4 MG SL Q5M February 11, 2019 10:00am nystatin [id number] unt/ml oral suspension (20 sources) Polyene Antifungal Start: 03-26-2019 End: 06-10-2019 Nystatin 100,000 unit/mL suspension Discontinued 5 mL MUCOUS MEM THREE TIMES A DAY 250 1 March 26, 2019 12:00am June 10, 2019 11:01am swish and swallow 5 cc three times per day for 10 days Start: 03-26-2019 End: 06-10-2019 Nystatin Discontinued 5 ML M UCOUS MEM THREE TIMES A DAY March 26, 2019 12:00am June 10, 2019 11:01am swish and swallow 5 cc three times per day for 10 days predniSONE 20 mg oral tablet (20 sources) Start: 11-27-2021 End: 01-02-2022 take 2 tablets by mouth once daily Prednisone 20 mg tablet Discontinued 40 mg PO DAILY 10 November 27, 2021 12:00am January 02, 2022 10:03am Start: 11-27-2021 End: 01-02-2022 take 40 mg by mouth once daily Prednisone Discontinued 40 MG PO DAILY 10 November 27, 2021 12:00am January 02, 2022 10:03am Start: 05-29-2021 End: 08-15-2021 take 1 tablet by mouth once daily as needed Prednisone 10 mg tablet Discontinued 10 mg PO DAILY as needed May 29, 2021 12:00am August 15, 2021 3:38pm Start: 05-23-2017 End: 11-28-2017 take 3 tablets by mouth once daily at mealtime Prednisone 20 MG tablet Discontinued 60 mg PO DAILY May 23, 2017 12:00am November 28, 2017 7:33am With food Start: 05-23-2017 End: 11-28-2017 take 60 mg by mouth once daily at mealtime Prednisone Discontinued 60 MG PO DAILY May 23, 2017 12:00am November 28, 2017 7:33am With food ramipril 5 mg oral capsule (20 sources) Angiotensin Converting Enzyme Inhibitor Start: 07-22-2013 End: 08-26-2019 take 1 capsule by mouth once daily Ramipril 5 mg capsule Discontinued 5 mg PO DAILY 90 July 09, 2019 12:27pm August 26, 2019 11:52am rOPINIRole 1 mg oral tablet (20 sources) Nonergot Dopamine Agonist Start: 09-04-2020 End: 06-03-2022 take 1 tablet by mouth at bedtime Ropinirole 1 mg tablet Discontinued 1 mg PO AT BEDTIME 90 August 17, 2021 4:22pm June 03, 2022 3:55pm administer 1-3 hours before bedtime Start: 08-09-2020 End: 09-04-2020 Ropinirole 0.5 mg tablet Dis continued 0.5 mg PO DAILY 60 August 09, 2020 1:00am September 04, 2020 4:55pm 1 tab 1-2 hours before bed, on 4th night december increase to 2 tabs Comment on above: Take 1 mg by mouth d aily at bedtime. rosuvastatin calcium 5 mg oral tablet (20 sources) HMG-CoA Reductase Inhibitor Start: 5 End: 5 take 1 tablet by mouth once daily Rosuvastatin (Crestor) 5 mg tablet Discontinued 5 mg PO daily November 08, 2024 12:00am December 31, 2024 9:34am Start: 02-14-2016 End: 06-03-2022 take 1 tablet by mouth once daily Rosuvastatin 20 mg tablet Discontinued 20 mg PO DAILY 90 August 17, 2021 2:32pm June 03, 2022 3:55pm Comment on above: Take 1 tablet by meenu th daily at bedtime. tamsulosin hydrochloride 0.4 mg oral capsule (20 sources) alpha-Adrenergic Elza Start: End: take 1 capsule by mouth at bedtime Tamsulosin 0.4 mg capsule Discontinued 0.4 mg PO AT BEDTIME 30 December 19, 2020 12:00am January 15, 2021 9:57am Comment on above: Take 0.4 mg by mouth once daily. traMADol hydrochloride 50 mg oral tablet (20 sources) Opioid Agonist Start: 8 End: 8 take 1 tablet by mouth once daily Tramadol 50 mg tablet Discontinued 50 mg PO .q day April 20, 2018 12:00am April 24, 2018 2:06pm Start: 09-22-2017 End: 09-23-2017 take 1 tablet by mouth once daily Tramadol 50 mg tablet Discontinued 50 mg PO .QD September 22, 2017 1:00am September 23, 2017 3:00pm vitamin b12 1 mg/ml injectable solution (20 sources) Vitamin B12 Start: 12-07-2021 End: 12-07-2021 inject 100 ug by intramuscular injection once cyanocobalamin (vitamin B-12) 1,000 mcg/mL injection solution Discontinued 100 MCG IM ONCE December 07, 2021 10:14am December 07, 2021 10:32am Start: 11-08-2021 End: 11-08-2021 inject 100 ug by intramuscular injection once cyanocobalamin (vitamin B-12) 1,000 mcg/mL injection solution Discontinued 100 MCG IM ONCE November 08, 2021 10:12am November 08, 2021 10:25am Start: 10-08-2021 End: 10-08-2021 inject 100 ug by intramuscular injection once cyanocobalamin (vitamin B-12) 1,000 mcg/mL injection solution Discontinued 100 MCG IM ONCE October 08, 2021 11:06am October 08, 2021 11:19am Start: 09-10-2021 End: 09-10-2021 inject 100 ug by intramuscular injection once cyanocobalamin (vitamin B-12) 1,000 mcg/mL injection solution Discontinued 100 MCG IM ONCE September 10, 2021 11:03am September 10, 2021 11:21am Start: 08-10-2021 End: 08-10-2021 inject 100 ug by intramuscular injection once cyanocobalamin (vitamin B-12) 1,000 mcg/mL injection solution Discontinued 100 MCG IM ONCE August 10, 2021 11:00am August 10, 2021 11:55am Start: 07-05-2021 End: 07-05-2021 inject 100 ug by intramuscular injection every month cyanocobalamin (vitamin B-12) 1,000 mcg/mL injection solution Discontinued 100 MCG IM EVERY MONTH 0.1 July 05, 2021 10:58am July 05, 2021 12:39pm Start: 01-02-2021 End: 07-05-2021 Cyanocobalamin (Vitamin B-12 ) 1,000 mcg tablet Discontinued NMA PO January 02, 2021 12:00am July 05, 2021 12:07pm Start: 12-27-2020 End: 07-05-2021 Cyanocobalamin (Vitamin B-12 ) Discontinued EACH PO January 02, 2021 12:00am July 05, 2021 12:07pm Start: 12-27-2020 End: 01-02-2022 inject 1 mL by intramuscular injection every month cyanocobalamin 1,000 mcg/mL Inject 1 mL intramuscularly once every month. 1 mL 11 12/27/2020 Active Comment on above: Take 1 tablet by meenu once daily. Inject 1 mL intramus cularly once every month. vitamin k2 0.1 mg oral capsule (12 sources) Start: 11-08-2024 End: 01-05-2025 Vitamin K2 100 mcg capsule Discontinued 100 ug PO daily November 08, 2024 12:00am January 05, 2025 9:36am Problems Active Problems Problem Classification Problem Date Documented Da te Episodic/Chronic Administrative/social admission (2 sources) Patient encounter status; Translations: [Encounter for pre-employment examination] 05-10-2025 Episodic Allergic reactions (20 sources) Contact dermatitis; Translations: [Unspecified contact dermatitis, unspecified cause] 12-05-2021 Episodic Asthma (20 sources) Asthma; Translations: [Unspecified asthma, uncomplicated] Onset: 03-01-2015 Chronic Cardiac dysrhythmias (20 sources) Sick sinus syndrome; Translations: [Sick sinus syndrome] Onset: 2015 Chronic Chronic kidney disease (20 sources) Chronic kidney disease; Translations: [Chronic kidney disease, unspecified] Chronic Chronic obstructive pulmonary disease and bronchiectasis (1 source) Asthma-chronic obstructive pulmonary disease overlap syndrome; Translations: [Chronic obstructive pulmonary disease, unspecified] Onset: 03-01-2015 03-01-2015 Chronic Complication of device; implant or graft (3 sources) Disorder of cardiac pacemaker electrode; Translations: [Breakdown (mechanical) of cardiac electrode, initial encounter] Onset: 06-19-2023 04-23-2023 Episodic Conduction disorders (20 sources) Msfrq-[id number]-[id number] e pattern; 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 Chronic Comment on above: 06/2023 Coronary atherosclerosis and other heart disease (20 sources) Old myocardial infarction; Translations: [Old myocardial infarction] Onset: 06-09-2007 01-08-2021 Chronic Coronary atherosclerosis and other heart disease (15 sources) Presence of coronary angioplasty implant and graft; Translations: [Percutaneous transluminal coronary angioplasty status] Onset: 07-23-2013 Episodic Delirium dementia and amnestic and other cognitive disorders (4 sources) Postconcussion syndrome; Translations: [Postconcussion syndrome] Chronic Disorders of lipid metabolism (20 sources) Hyperlipidemia; Translations: [Hyperlipidemia, unspecified] Onset: 2015 Chronic Epilepsy; convulsions (20 sources) Complex partial epileptic seizure; Translations: [Localization-relate d (focal) (partial) symptomatic epilepsy and epileptic syndromes with complex partial seizures, not intractable, without status epilepticus] 05-28-2021 Chronic Essential hypertension (20 sources) Essential hypertension; Translations: [Essential (primary) hypertension] Onset: 2015 Chronic Genitourinary symptoms and ill-defined conditions (20 sources) Retention of urine; Translations: [Retention of urine, unspecified] 12-19-2020 Episodic Hyperplasia of prostate (2 sources) Benign prostatic hyperplasia; Translations: [Benign prostatic hyperplasia without lower urinary tract symptoms] Onset: 10-02-2011 10-02-2011 Chronic Intracranial injury (20 sources) Concussion injury of brain; Translations: [Concussion with less than 1 hour loss of consciousness] 12-12-2019 Episodic Joint disorders and dislocations; trauma-related (4 sources) Dislocations, sprains and strains involving head with neck; Translations: [Sprain of joints and ligaments of unspecified parts of neck, subsequent encounter] Episodic Mycoses (20 sources) Candidiasis of mouth; Translations: [Candidal stomatitis] 01-08-2021 Episodic Nonspecific chest pain (20 sources) Chest pain; Translations: [Chest pain, unspecified] Episodic Nutritional deficiencies (20 sources) Cobalamin deficiency; Translations: [Deficiency of other specified B group vitamins] Episodic Occlusion or stenosis of precerebral arteries (20 sources) Carotid artery stenosis; Translations: [Occlusion and stenosis of unspecified carotid artery] 05-28-2021 Chronic Comment on above: Mild stenosis of the proximal left ICA. 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] Onset: 08-23-2013 08-15-2021 Episodic Other aftercare (20 sources) Drug therapy finding; Translations: [Other longterm (current) drug therapy] 06-03-2022 Episodic Other aftercare (13 sources) Other longterm (current) drug therapy; Translations: [Long-term (current) use of other medications] Episodic Other aftercare (10 sources) Long-term current use of amiodarone; Translations: [Other longterm (current) drug therapy] 06-03-2022 Episodic Other bone disease and musculoskeletal deformities (20 sources) Segmental and somatic dysfunction; Translations: [Segmental and somatic dysfunction of cervical region] 01-08-2021 Episodic Other circulatory disease (20 sources) H/O: atrial fibrillation; Translations: [Personal history of other diseases of the circulatory system] 12-05-2021 Episodic Other connective tissue disease (20 sources) Pain in lower limb; Translations: [Pain in leg, unspecified] 08-15-2021 Episodic Other connective tissue disease (20 sources) Swelling of lower limb; Translations: [Other specified soft tissue disorders] 08-15-2021 Episodic Other connective tissue disease (6 sources) Pain in leg, unspecified; Translations: [Pain in limb] Episodic Other connective tissue disease (6 sources) Other specified soft tissue disorders; Translations: [Swelling of limb] Episodic Other connective tissue disease (20 sources) Trochanteric bursitis; Translations: [Trochanteric bursitis, right hip] 12-31-2024 Episodic Other connective tissue disease (16 sources) Iliotibial band friction syndrome; Translations: [Iliotibial band syndrome, unspecified leg] 12-31-2024 Episodic Other hereditary and degenerative nervous system conditions (20 sources) Restless legs; Translations: [Restless legs syndrome] 10-12-2020 Chronic Other injuries and conditions due to external causes (20 sources) Hematoma; Translations: [Other injury of unspecified body region, initial encounter] 05-28-2021 Episodic Other injuries and conditions due to external causes (20 sources) Abrasion and/or friction burn of multiple sites; Translations: [Unspecified multiple injuries, initial encounter] 12-12-2019 Episodic Other lower respiratory disease (20 sources) Dyspnea on exertion; Translations: [Dyspnea, unspecified] 10-11-2021 Episodic Other lower respiratory disease (20 sources) Dyspnea; Translations: [Shortness of breath] 01-08-2021 Episodic Other lower respiratory disease (6 sources) Dyspnea, unspecified; Translations: [Other respiratory abnormalities] Onset: 11-25-2023 Episodic Other lower respiratory disease (15 sources) Productive cough ; Translations: [Productive cough] 09-12-2023 Episodic Other non-traumatic joint disorders (20 sources) Anterior knee pain; Translations: [Pain in left knee] 09-03-2021 Episodic Other non-traumatic joint disorders (3 sources) Pain in left knee; Translations: [Pain in joint, lower leg] Episodic Other nutritional; endocrine; and metabolic disorders (2 sources) Weight gain; Translations: [Abnormal weight gain] 09-12-2023 Episodic Other nutritional; endocrine; and metabolic disorders (13 sources) Weight increased; Translations: [Abnormal weight gain] 09-12-2023 Episodic Other screening for suspected conditions (not mental disorders or infectious disease) (20 sources) Thallium stress test abnormal; Translations: [Abnormal result of other cardiovascular function study] Onset: 06-10-2007 07-29-2019 Episodic Other upper respiratory infections (20 sources) Acute upper respiratory infection; Translations: [Acute upper respiratory infection, unspecified] Episodic Residual codes; unclassified (20 sources) Obstructive sleep apnea syndrome; Translations: [Obstructive sleep apnea (adult) (pediatric)] 01-08-2021 Chronic Comment on above: Noncompliant since F ebruary 2021 Residual codes; unclassified (2 sources) Sleep apnea; Translations: [Sleep apnea, unspecified] Onset: 03-01-2015 03-01-2015 Chronic Rheumatoid arthritis and related disease (20 sources) Rheumatoid arthritis; Translations: [Rheumatoid arthritis, unspecified] 01-08-2021 Chronic Spondylosis; intervertebral disc disorders; other back problems (20 sources) Displacement of cervical intervertebral disc; Translations: [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] Onset: 08-23-2013 01-08-2021 Chronic Sprains and strains (20 sources) Neck sprain; Translations: [Sprain of joints and ligaments of unspecified parts of neck, initial encounter] 12-12-2019 Episodic Superficial injury; contusion (20 sources) Contusion of hip; Translations: [Contusion of chest] 12-12-2019 Episodic Thyroid disorders (20 sources) Hypothyroidism; Translations: [Hypothyroidism, unspecified] Onset: 05-10-2025 09-12-2022 Chronic Transient cerebral ischemia (20 sources) Transient cerebral ischemia; Translations: [Transient cerebral ischemic attack, unspecified] 01-08-2021 Chronic Unclassified (6 sources) M76.30 - Iliotibial band syndrome, unspecified leg,M70.61 - Trochanteric bursitis, right hip,M54.16 - Radiculopathy, lumbar region Unclassified (2 sources) Iliotibial band syndrome Unclassified (2 sources) Greater trochanteric bursitis of right hip Past or Other Problems Problem Classification Problem Date Documented Date Episodic/Chronic Cardiac dysrhythmias (20 sources) Sinus bradycardia; Translations: [Bradycardia, unspecified] Onset: 06-19-2023 Episodic Other aftercare (10 sources) 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; Translations: [Long-term (current) use of anticoagulants] Onset: 08-23-2013 Episodic Other circulatory disease (20 sources) History of cerebrovascular accident; Translations: [Personal history of transient ischemic attack (TIA), and cerebral infarction without residual deficits] Onset: 08-04-2012 05-28-2021 Episodic Other connective tissue disease (1 source) Arthrodesis status; Translations: [Arthrodesis status] Onset: 12-31-2024 Episodic Other connective tissue disease (1 source) Iliotibial band syndrome, unspecified leg; Translations: [Iliotibial band syndrome, unspecified leg] Onset: 12-31-2024 Episodic Other connective tissue disease (1 source) Trochanteric bursitis, right hip; Translations: [Trochanteric bursitis, right hip] Onset: 12-31-2024 Episodic Other lower respiratory disease (2 sources) Other forms of dyspnea; Translations: [Other respiratory abnormalities] Onset: 11-19-2024 Episodic Other lower respiratory disease (1 source) Shortness of breath; Translations: [Shortness of breath] Onset: 11-12-2024 Episodic Other nervous system disorders (2 sources) Slurred speech; Translations: [Slurred speech] Onset: 12-25-2020 12-25-2020 Episodic Other non-traumatic joint disorders (1 source) Pain in right hip; Translations: [Pain in right hip] Onset: 12-31-2024 Episodic Residual codes; unclassified (20 sources) History of cardiac catheterization; Translations: [Other specified postprocedural states] Onset: 08-02-2019 01-08-2021 Episodic Comment on above: 08/22/2016; 08/02/20 19 Residual codes; unclassified (1 source) Asymptomatic menopausal state; Translations: [Asymptomatic menopausal state] Onset: 10-29-2024 Episodic Spondylosis; intervertebral disc disorders; other back problems (20 sources) Chronic back pain ; Translations: [Dorsalgia, unspecified] Onset: 12-31-2024 Episodic NEGATED: Highlighted row has not occurred!Residual codes; unclassified (20 sources) Disease Episodic Results Test Name Value Interpretation Reference Range Facility CBC W/Diff, Automatedon 10-1 Absolute Lymph 1.69 X10 3/uL Normal 0.83-4.51 [facility] Comment on above: Performed By: #### L 500.4050, L100.0100, L501.9520, L506.0400, L503.7505 #### [facility] [address] [place], [address] Absolute Neut 4.3 X10 3/uL Normal 2.0-7.7 [facility] Comment on above: Performed By: #### L 500.4050, L100.0100, L501.9520, L506.0400, L503.7505 #### [facility] [address] [place], [address] Basophils/100 WBC (Bld) 0.6 % Normal 0-1 [facility] Comment on above: Performed By: #### L 500.4050, L100.0100, L501.9520, L506.0400, L503.7505 #### [facility] [address] [place], [address] Eosinophils/100 WBC (Bld) 0.1 % Normal 0-5 [facility] Comment on above: Performed By: #### L 500.4050, L100.0100, L501.9520, L506.0400, L503.7505 #### [facility] [address] [place], [address] Erythrocyte distribution width (RBC) [Ratio] 13.3 % Normal 11.6-14.6 [facility] Comment on above: Performed By: #### L 500.4050, L100.0100, L501.9520, L506.0400, L503.7505 #### [facility] [address] [place], [address] Hematocrit (Bld) [Volume fraction] 37.4 % Low 40-54 [facility] Comment on above: Performed By: #### L 500.4050, L100.0100, L501.9520, L506.0400, L503.7505 #### [facility] [address] [place], [address] Hemoglobin (Bld) [Mass/Vol] 12.5 g/dL Low 13.0-16.5 [facility] Comment on above: Performed By: #### L 500.4050, L100.0100, L501.9520, L506.0400, L503.7505 #### [facility] [address] [place], [address] IG% 0.300 Normal 0.0-0.9 [facility] Comment on above: Result Comment: IG% - Immature Granulocytes (promyelocytes, myelocytes and metamyelocytes) > 1% indicates that a LEFT SHIFT is Present. Performed By: #### L 500.4050, L100.0100, L501.9520, L506.0400, L503.7505 #### [facility] [address] [place], [address] Lymphocytes/100 WBC (Bld) 25.2 % Normal 19-41 [facility] Comment on above: Performed By: #### L 500.4050, L100.0100, L501.9520, L506.0400, L503.7505 #### [facility] [address] [place], [address] MCH (RBC) [Entitic mass] 31.6 pg Normal 27.0-32.0 [facility] Comment on above: Performed By: #### L 500.4050, L100.0100, L501.9520, L506.0400, L503.7505 #### [facility] [address] [place], [address] MCHC (RBC) [Mass/Vol] 33.4 g/dL Normal 32-36 [facility] Comment on above: Performed By: #### L 500.4050, L100.0100, L501.9520, L506.0400, L503.7505 #### [facility] [address] [place], [address] MCV (RBC) [Entitic vol] 94.7 fL High 80-94 [facility] Comment on above: Performed By: #### L 500.4050, L100.0100, L501.9520, L506.0400, L503.7505 #### [facility] [address] [place], [address] Monocytes/100 WBC (Bld) 10.1 % High 0-10 [facility] Comment on above: Performed By: #### L 500.4050, L100.0100, L501.9520, L506.0400, L503.7505 #### [facility] [address] [place], [address] Neutrophils/100 WBC (Bld) 63.7 % Normal 47-70 [facility] Comment on above: Performed By: #### L 500.4050, L100.0100, L501.9520, L506.0400, L503.7505 #### [facility] [address] [place], [address] Nucleated RBC (Bld) [#/Vol] 0 10*3/uL Normal 0-5 [facility] Comment on above: Performed By: #### L 500.4050, L100.0100, L501.9520, L506.0400, L503.7505 #### [facility] [address] [place], [address] Platelet mean volume (Bld) [Entitic vol] 9.6 fL Normal 6.2-12.0 [facility] Comment on above: Performed By: #### L 500.4050, L100.0100, L501.9520, L506.0400, L503.7505 #### [facility] [address] [place], [address] Platelets (Bld) [#/Vol] 269 10*3/uL Normal 150-450 [facility] Comment on above: Performed By: #### L 500.4050, L100.0100, L501.9520, L506.0400, L503.7505 #### [facility] [address] [place], [address] RBC (Bld) [#/Vol] 3.95 10*6/uL Low 4.6-6.2 [facility] Comment on above: Performed By: #### L 500.4050, L100.0100, L501.9520, L506.0400, L503.7505 #### [facility] [address] [place], [address] RDW SD 47.2 fl High 35.1-43.9 [facility] Comment on above: Performed By: #### L 500.4050, L100.0100, L501.9520, L506.0400, L503.7505 #### [facility] [address] [place], [address] WBC (Bld) [#/Vol] 6.7 10*3/uL Normal 4.4-11.0 [facility] Comment on above: Performed By: #### L 500.4050, L100.0100, L501.9520, L506.0400, L503.7505 #### [facility] [address] [place], [place], [id number] Absolute lymphocyte countOrd ered By: Jairo Grande on 05-10-2025 Lymphocytes Auto (Unsp spec) [#/Vol] 1.49 10*3/uL 0.83-4.51 [facility] Absolute neutrophil countOrd ered By: Jairo Grande on 05-10-2025 Neutrophils (Bld) [#/Vol] 4.8 10*3/uL 2.0-7.7 [facility] Anion gap in Serum or Plasma Ordered By: Jairo Grande on 05-10-2025 Anion gap [Moles/Vol] 12 mmol/L 5-15 [facility] Automated lymphocyte count a s percentage of total leukocytesOrdered By: Jairo Grande on 05-10-2025 Lymphocytes/100 WBC Auto (Unsp spec) 20.9 % - [facility] BUN/creatinine ratioOrdered By: Jairo Grande on 05-10-2025 Urea nitrogen/Creatinine [Mass ratio] 14.8 mg/mg - [facility] Basic Metabolic Profile (BMP )on 05-10-2025 BUN/CRE 14.8 RATIO Normal 05-23 [facility] Comment on above: Performed By: #### L 100.0100, L500.2500, L500.4100, L500.3400, L501.9520 #### [facility] [address] [place], [address] Calcium [Mass/Vol] 10.1 mg/dL Normal 7.6-11.0 [facility] Comment on above: Performed By: #### L 100.0100, L500.2500, L500.4100, L500.3400, L501.9520 #### [facility] [address] [place], [address] Chloride [Moles/Vol] 106 mmol/L Normal 98-108 [facility] Comment on above: Performed By: #### L 100.0100, L500.2500, L500.4100, L500.3400, L501.9520 #### [facility] [address] [place], [address] CO2 [Moles/Vol] 23.4 mmol/L Normal 21.0-32.0 [facility] Comment on above: Performed By: #### L 100.0100, L500.2500, L500.4100, L500.3400, L501.9520 #### [facility] [address] [place], [address] Creatinine [Mass/Vol] 1.28 mg/dL High 0.70-1.20 [facility] Comment on above: Performed By: #### L 100.0100, L500.2500, L500.4100, L500.3400, L501.9520 #### [facility] [address] [place], [address] GAP 12 Normal 5-15 [facility] Comment on above: Performed By: #### L 100.0100, L500.2500, L500.4100, L500.3400, L501.9520 #### [facility] [address] [place], [address] GFR/1.73 sq M.predicted among non-blacks MDRD (S/P/Bld) [Vol rate/Area] 59 mL/min/{1.73_m2} Low >60 [facility] Comment on above: Result Comment: mL/m in/1.73m2 CKD-EPI Creatinine Equation (2020) Performed By: #### L 100.0100, L500.2500, L500.4100, L500.3400, L501.9520 #### [facility] [address] [place], [address] Glucose [Mass/Vol] 99 mg/dL Normal 70-99 [facility] Comment on above: Performed By: #### L 100.0100, L500.2500, L500.4100, L500.3400, L501.9520 #### [facility] [address] [place], [address] Potassium [Moles/Vol] 4.5 mmol/L Normal 3.3-5.1 [facility] Comment on above: Performed By: #### L 100.0100, L500.2500, L500.4100, L500.3400, L501.9520 #### [facility] [address] [place], [address] Sodium [Moles/Vol] 142 mmol/L Normal 133-145 [facility] Comment on above: Performed By: #### L 100.0100, L500.2500, L500.4100, L500.3400, L501.9520 #### [facility] [address] [place], [address] Urea nitrogen [Mass/Vol] 19 mg/dL Normal 4-19 [facility] Comment on above: Performed By: #### L 100.0100, L500.2500, L500.4100, L500.3400, L501.9520 #### [facility] [address] [place], [address] Basophil percentageOrdered B y: Jairo Christiane on 05-10-2025 Basophils/100 WBC (Bld) 0.6 % 0-1 [facility] Bilirubin directOrdered By: Jairo Christiane on 05-10-2025 Bilirubin.direct [Mass/Vol] 0.24 mg/dL 0.00-0.30 [facility] Bilirubin, totalOrdered By: Jairo Christiane on 05-10-2025 Bilirubin [Mass/Vol] 0.56 mg/dL 0.00-1.30 [facility] CBC W/Diff, Automatedon Absolute Lymph 1.49 X10 3/uL Normal 0.83-4.51 [facility] Comment on above: Performed By: #### L 100.0100, L500.2500, L500.4100, L500.3400, L501.9520 #### [facility] [address] [place], [address] Absolute Neut 4.8 X10 3/uL Normal 2.0-7.7 [facility] Comment on above: Performed By: #### L 100.0100, L500.2500, L500.4100, L500.3400, L501.9520 #### [facility] [address] [place], [address] Basophils/100 WBC (Bld) 0.6 % Normal 0-1 [facility] Comment on above: Performed By: #### L 100.0100, L500.2500, L500.4100, L500.3400, L501.9520 #### [facility] [address] [place], [address] Eosinophils/100 WBC (Bld) 0.1 % Normal 0-5 [facility] Comment on above: Performed By: #### L 100.0100, L500.2500, L500.4100, L500.3400, L501.9520 #### [facility] [address] [place], [address] Erythrocyte distribution width (RBC) [Ratio] 13.8 % Normal 11.6-14.6 [facility] Comment on above: Performed By: #### L 100.0100, L500.2500, L500.4100, L500.3400, L501.9520 #### [facility] [address] [place], [address] Hematocrit (Bld) [Volume fraction] 39.9 % Low 40-54 [facility] Comment on above: Performed By: #### L 100.0100, L500.2500, L500.4100, L500.3400, L501.9520 #### [facility] [address] [place], [address] Hemoglobin (Bld) [Mass/Vol] 13.5 g/dL Normal 13.0-16.5 [facility] Comment on above: Performed By: #### L 100.0100, L500.2500, L500.4100, L500.3400, L501.9520 #### [facility] [address] [place], [address] IG% 0.400 Normal 0.0-0.9 [facility] Comment on above: Result Comment: IG% - Immature Granulocytes (promyelocytes, myelocytes and metamyelocytes) > 1% indicates that a LEFT SHIFT is Present. Performed By: #### L 100.0100, L500.2500, L500.4100, L500.3400, L501.9520 #### [facility] [address] [place], [address] Lymphocytes/100 WBC (Bld) 20.9 % Normal 19-41 [facility] Comment on above: Performed By: #### L 100.0100, L500.2500, L500.4100, L500.3400, L501.9520 #### [facility] [address] [place], [address] MCH (RBC) [Entitic mass] 32.1 pg High 27.0-32.0 [facility] Comment on above: Performed By: #### L 100.0100, L500.2500, L500.4100, L500.3400, L501.9520 #### [facility] [address] [place], [address] MCHC (RBC) [Mass/Vol] 33.8 g/dL Normal 32-36 [facility] Comment on above: Performed By: #### L 100.0100, L500.2500, L500.4100, L500.3400, L501.9520 #### [facility] [address] [place], [address] MCV (RBC) [Entitic vol] 95.0 fL High 80-94 [facility] Comment on above: Performed By: #### L 100.0100, L500.2500, L500.4100, L500.3400, L501.9520 #### [facility] [address] [place], [address] Monocytes/100 WBC (Bld) 10.6 % High 0-10 [facility] Comment on above: Performed By: #### L 100.0100, L500.2500, L500.4100, L500.3400, L501.9520 #### [facility] [address] [place], [address] Neutrophils/100 WBC (Bld) 67.4 % Normal 47-70 [facility] Comment on above: Performed By: #### L 100.0100, L500.2500, L500.4100, L500.3400, L501.9520 #### [facility] [address] [place], [address] Nucleated RBC (Bld) [#/Vol] 0 10*3/uL Normal 0-5 [facility] Comment on above: Performed By: #### L 100.0100, L500.2500, L500.4100, L500.3400, L501.9520 #### [facility] [address] [place], [address] Platelet mean volume (Bld) [Entitic vol] 9.1 fL Normal 6.2-12.0 [facility] Comment on above: Performed By: #### L 100.0100, L500.2500, L500.4100, L500.3400, L501.9520 #### [facility] [address] [place], [address] Platelets (Bld) [#/Vol] 268 10*3/uL Normal 150-450 [facility] Comment on above: Performed By: #### L 100.0100, L500.2500, L500.4100, L500.3400, L501.9520 #### [facility] [address] [place], [address] RBC (Bld) [#/Vol] 4.20 10*6/uL Low 4.6-6.2 [facility] Comment on above: Performed By: #### L 100.0100, L500.2500, L500.4100, L500.3400, L501.9520 #### [facility] [address] [place], [address] RDW SD 48.4 fl High 35.1-43.9 [facility] Comment on above: Performed By: #### L 100.0100, L500.2500, L500.4100, L500.3400, L501.9520 #### [facility] [address] [place], [address] WBC (Bld) [#/Vol] 7.1 10*3/uL Normal 4.4-11.0 [facility] Comment on above: Performed By: #### L 100.0100, L500.2500, L500.4100, L500.3400, L501.9520 #### [facility] [address] [place], [address] Calculated very low density lipoprotein (VLDL) cholesterol measurementOrdered By: Jairo Grande on 05-10-2025 Calculated very low density lipoprotein (VLDL) cholesterol measurement 17 mg/dL 5-40 [facility] Carbon dioxide, total [Moles /volume] in Central venous bloodOrdered By: Jairo Grande on 05-10-2025 CO2 [Moles/Vol] 23.4 mmol/L 21.0-32.0 [facility] Cardiology Visit Reporton Cardiology Visit Report [facility] [address] [place] [address] OFFICE VISIT Date of Service: 05/10/25 MR#: [id number] Acct: [id number] Name: BRIGETTE HOLGUIN Rep #: [id number] : 1950 Provider: ANABEL palmer Age/Sex: 74/M Location: [facility] Status: Signed HPI HPI History of Present Illness Details: Mr. Holguin is a 74-year-old white male, who presents today for outpatient cardiovascular followup. As you know, he has a history of hypertension, hypercholesterolemia, paroxysmal atrial fibrillation, coronary artery disease status post angioplasty and drug-eluting stenting to the LAD at [facility] on 07/23/13. At that time he received a 3.0X 20 Promus element stent. The patient had a known tiny 1.5-2 mm in diameter diagonal #1 branch was is diffusely diseased since catheterization in 2006. He has never had a balloon angioplasty of that vessel. He returned on 08/21/16 with recurrent chest pain and then underwent a stress test which suggested possible anterior ischemia. We repeated his catheterization which demonstrated nonobstructive disease of his RCA and left circumflex, widely patent stent of his LAD but loss of that tiny little diagonal branch. No intervention was attempted. Patient was subsequently sent home on medical management. He had been placed on a beta-elza. 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 He does knowledge improvement in symptoms since last office visit. He is following with the [place] for underlying pulmonary evaluation. He denies chest, arm, jaw, or neck discomfort. He denies palpitations. He denies bilateral lower extremity edema. He denies claudication. He states shortness of breath with activity and at rest that he attributes to asthma/emphysema. He denies orthopnea or PND. He denies chronic cough. He denies significant, sudden weight gain. He denies lightheadedness, dizziness, near-syncope, or syncope. He denies blood in urine, blood in stool, or epistaxis. He denies fever or chills. He denies myalgia. He states fatigue. His exercise level has remained stable via work which requires walking. Intake Vital Signs 01/05/25 09:23 05/10/25 07:43 05/10/25 08:33 Height 5 ft 9 in 5 ft 9 in 5 ft 9 in Weight: 164 lb BMI 24.2 BP 123/83 H Blood Pressure Location Lt brachial Position Sitting Respiration 18 Pulse 75 Pulse Source Monitor Pulse Oximetry (%) 98 Intake Visit Reasons: 4 M MEENU/JAZLYN @ 8:30 Barrel Cutter Required: No Is patient in pain?: No Allergies Sulfa (Sulfonamide Antibiotics) Allergy (Mild, Verified 04/20/25 15:36) Rash clopidogrel (From Plavix) Adverse Reaction (Severe, Verified 04/20/25 15:36) Other - genetic nonresponder, needs brillinta oxybutynin Adverse Reaction (Severe, Verified 04/20/25 15:36) short of breath, very dry mouth metoprolol (From Lopressor) Adverse Reaction (Mild, Verified 04/20/25 15:36) - bronchospasm nystatin Adverse Reaction (Unknown, Verified 04/20/25 15:36) Unknown adhesive tape Adverse Reaction (Verified 04/20/25 15:36) Itching Medications ???Medication ???Instructions ???Recorded ???Confirmed ???Type albuterol sulfate 90 mcg/actuation 2 puff inhalation Q4H PRN 05/10/25 Rx aerosol inhaler (Ventolin HFA) shortness of breath or wheezing #18 grams rivaroxaban 20 mg tablet (Xarelto) 20 mg PO DAILY #90 tabs 05/05/24 05/10/25 Rx levothyroxine 25 mcg tablet 25 mcg PO QDAY Filling as 07/07/24 05/10/25 Rx courtesy, pt needs to get from Primary #90 tabs losartan 25 mg tablet 25 mg PO DAILY #90 tabs 07/07/24 1 Rx nitroglycerin 0.4 mg sublingual 0.4 mg sublingual Q5M PRN Chest 05/10/25 Rx tablet Pain #25 tabs budesonide 160 mcg-glycopyr 9 inh inhalation lunges 01/05/2502/25 History mcg-formot 4.8 mcg/actuation HFA inhaler tiotropium bromide 2.5 inhalation Breathing problems 11/2605/10/25 History mcg/actuation mist for inhalation (Spiriva Respimat) diltiazem HCl 240 mg 240 mg PO QDAY #90 caps 01/07/25 1 Rx capsule,extended release 24 hr (Cartia XT) Ejection fraction %: 65 Have you fallen in the past year?: No PFSH Medical History Wears glasses Thyroid disease Blood disorder History of echocardiogram History of stress test Hypertension Cardiology follow-up encounter Knee pain with internal derangement determined by x-ray History of CVA (cerebrovascular accident) (08/2012) Chronic kidney disease (CKD) Essential (primary) hypertension B12 deficiency Complex partial seizure Non-smoker TIA (transient isch (more content not included)... Normal [facility] Chloride assayOrdered By: Charlotte Grande on 05-10-2025 Chloride [Moles/Vol] 106 mmol/L 98-108 [facility] Eosinophil percentageOrdered By: Jairo Grande on 05-10-2025 Eosinophils/100 WBC (Bld) 0.1 % 0-5 [facility] Erythrocyte distribution wid th ratioOrdered By: Jairo Grande on 05-10-2025 Erythrocyte distribution width (RBC) [Ratio] 13.8 % 11.6-14.6 [facility] Erythrocyte distribution wid th standard deviationOrdered By: Jairo Grande on 05-10-2025 Erythrocyte distribution width (RBC) [Ratio] 48.4 fl High 35.1-43.9 [facility] Glomerular filtration rate ( GFR) estimation/1.73 sq m using serum, plasma, or whole bOrdered By: Jairo Grande on 05-10-2025 GFR/1.73 sq M.predicted among non-blacks MDRD (S/P/Bld) [Vol rate/Area] 59 mL/min/{1.73_m2} Low >60 [facility] Comment on above: mL/min/1.73m2 CKD-EP I Creatinine Equation (2020) Hematocrit Auto (Bld) [Volum e fraction]Ordered By: Jairo Grande on 05-10-2025 Hematocrit (Bld) [Volume fraction] 39.9 % Low 40-54 [facility] Hemoglobin measurementOrdere d By: Jairo Grande on 05-10-2025 Hemoglobin (Bld) [Mass/Vol] 13.5 g/dL 13.0-16.5 [facility] Immature granulocytes/100 WB C Auto (Bld)Ordered By: Jairo Grande on 05-10-2025 Immature granulocytes/100 WBC (Bld) 0.400 % 0.0-0.9 [facility] Comment on above: IG% - Immature Granu locytes (promyelocytes, myelocytes and metamyelocytes) > 1% indicates that a LEFT SHIFT is Present. LDL calc ser/plasOrdered By: Jairo Grande on 05-10-2025 Cholesterol in LDL [Mass/Vol] 105 mg/dL [facility] Comment on above: Xxcawfaqes=312-426 m g/dL & Higher Join=719 mg/dL or greaterFriedwald Equation for LDL-C Laboratory - Chemistry and C hemistry - challengeOrdered By: Jairo Grande on 05-10-2025 AST [Catalytic activity/Vol] 23 U/L <38 [facility] Lipid Profileon 05-10-2025 CHOL:HDL 3.15 Normal [facility] Comment on above: Performed By: #### L 100.0100, L500.2500, L500.4100, L500.3400, L501.9520 #### [facility] [address] [place], [place], [id number] Cholesterol [Mass/Vol] 179 mg/dL Normal <=200 [facility] Comment on above: Result Comment: Chol esterol level, Desirable <200 mg/dL Borderline high cholesterol 200-239 mg/dL High cholesterol >=240 mg/dL Recommendations of the NCEP Adult Treatment Panel for the following risk-cutoff thresholds for the [place] population. Performed By: #### L 100.0100, L500.2500, L500.4100, L500.3400, L501.9520 #### [facility] [address] [place], [address] Cholesterol in HDL [Mass/Vol] 57 mg/dL Normal [facility] Comment on above: Result Comment: Ivy onal Cholesterol Education Program (NCEP) guidelines: <40 mg/dL: Low HDL-cholesterol (major risk factor for CHD) >= 60 mg/dL: High HDL-cholesterol (negative risk factor for CHD) HDL-cholesterol is affected by a number of factors, e.g. smoking, exercise, hormones, sex and age. Performed By: #### L 100.0100, L500.2500, L500.4100, L500.3400, L501.9520 #### [facility] [address] [place], [address] Cholesterol in LDL [Mass/Vol] 105 mg/dL Normal [facility] Comment on above: Result Comment: Bord sptrvp=930-137 mg/dL Higher Cvvv=516 mg/dL or greater Friedwald Equation for LDL-C Performed By: #### L 100.0100, L500.2500, L500.4100, L500.3400, L501.9520 #### [facility] [address] [place], [address] Cholesterol in VLDL [Mass/Vol] 17 mg/dL Normal 5-40 [facility] Comment on above: Performed By: #### L 100.0100, L500.2500, L500.4100, L500.3400, L501.9520 #### [facility] [address] [place], [address] Triglyceride [Mass/Vol] 86 mg/dL Normal [facility] Comment on above: Result Comment: The drugs N-Acetylcysteine and Metamizole may falsely depress this assay. Normal range: <150 mg/dL Borderline High: 150-199 mg/dL High: 200-499 mg/dL Very High: >500 mg/dL Performed By: #### L 100.0100, L500.2500, L500.4100, L500.3400, L501.9520 #### [facility] [address] [place], [address] Liver Profileon 05-10-2025 Albumin [Mass/Vol] 4.2 g/dL Normal 3.4-4.8 [facility] Comment on above: Performed By: #### L 100.0100, L500.2500, L500.4100, L500.3400, L501.9520 #### [facility] [address] [place], [address] ALK PHOS 70 U/L Normal 40-129 [facility] Comment on above: Performed By: #### L 100.0100, L500.2500, L500.4100, L500.3400, L501.9520 #### [facility] [address] [place], [address] ALT [Catalytic activity/Vol] 17 U/L Normal <=46 [facility] Comment on above: Performed By: #### L 100.0100, L500.2500, L500.4100, L500.3400, L501.9520 #### [facility] [address] [place], [address] AST [Catalytic activity/Vol] 23 U/L Normal <=37 [facility] Comment on above: Performed By: #### L 100.0100, L500.2500, L500.4100, L500.3400, L501.9520 #### [facility] [address] [place], [address] Bilirubin [Mass/Vol] 0.56 mg/dL Normal 0.00-1.30 [facility] Comment on above: Performed By: #### L 100.0100, L500.2500, L500.4100, L500.3400, L501.9520 #### [facility] [address] [place], [address] Bilirubin.direct [Mass/Vol] 0.24 mg/dL Normal 0.00-0.30 [facility] Comment on above: Performed By: #### L 100.0100, L500.2500, L500.4100, L500.3400, L501.9520 #### [facility] [address] [place], [address] Globulin (S) [Mass/Vol] 2.4 g/dL Normal 2.2-4.2 [facility] Comment on above: Performed By: #### L 100.0100, L500.2500, L500.4100, L500.3400, L501.9520 #### [facility] [address] [place], [address] T PROT 6.5 g/dL Normal 5.9-8.4 [facility] Comment on above: Performed By: #### L 100.0100, L500.2500, L500.4100, L500.3400, L501.9520 #### [facility] [address] [place], [address] MCV (mean corpuscular volume ) determinationOrdered By: Jairo Grande on 05-10-2025 MCV (RBC) [Entitic vol] 95.0 fL High 80-94 [facility] Mean corpuscular hemoglobin (MCH) determinationOrdered By: Jairo Grande on 05-10-2025 MCH (RBC) [Entitic mass] 32.1 pg High 27.0-32.0 [facility] Mean corpuscular hemoglobin concentration (MCHC) determinationOrdered By: Jairo Grande on 05-10-2025 MCHC (RBC) [Mass/Vol] 33.8 g/dL 32-36 [facility] Mean platelet volume determi nationOrdered By: Jairo Grande on 05-10-2025 Platelet mean volume (Bld) [Entitic vol] 9.1 fL 6.2-12.0 [facility] Monocyte percentageOrdered B y: Jairo Christiane on 05-10-2025 Monocytes/100 WBC (Bld) 10.6 % High 0-10 [facility] Neutrophil percentageOrdered By: Jairo Grande on 05-10-2025 Neutrophils/100 WBC (Bld) 67.4 % 47-70 [facility] Nucleated red blood cell per centageOrdered By: Jairo Grande on 05-10-2025 Nucleated RBC/100 WBC (Bld) [Ratio] 0 % 0-5 [facility] Pacemaker Checkon 05-10-2025 Pacemaker Check [facility] [address] [place] [address]. [address] [place] [address] Pacemaker Check Date of Service: 05/10/25 160 MR#: [id number] Acct: [id number] Name: BRIGETTE HOLGUIN Rep #: [id number] : 1950 From: Argenis Mcgee Age/Sex: 74/M [place] [facility] [place] Status: Signed Billing Codes PM Device Codes: 70821 PM Dev Prog Eval, Dual Assessment and Plan Assessment and Plan (1) History of permanent cardiac pacemaker placement: Status: Acute Comment: 06/2023 (2) Sick sinus syndrome: Status: Chronic (3) Lfono-Detpvxkdi-Zvfwq (WPW) syndrome: Status: Chronic Plan Details Goals Barriers: Goals Decrease pain Decrease inflammation Improve ROM Barriers cervical disc herniation previous lumbar surgery 05/10/25 1608 Date Argenis Pulido Signature: Date (if applicable) CC: Normal [facility] Platelet countOrdered By: Charlotte Grande on 05-10-2025 Platelets (Bld) [#/Vol] 268 10*3/uL 150-450 [facility] Potassium measurement (mass/ volume)Ordered By: Jairo Grande on 05-10-2025 Potassium (Unsp spec) [Mass/Vol] 4.5 mmol/L 3.3-5.1 [facility] RBC Auto (Bld) [#/Vol]Ordere d By: Jairo Grande on 05-10-2025 RBC (Bld) [#/Vol] 4.20 10*6/uL Low 4.6-6.2 [facility] Screening total cholesterol/ high density lipoprotein (HDL) cholesterol ratioOrdered By: Jairo Grande on 05-10-2025 Cholesterol.total/Chol esterol in HDL [Mass ratio] 3.15 {ratio} [facility] Serum creatinine measurement (mass/volume)Ordered By: Jairo Grande on 05-10-2025 Creatinine [Mass/Vol] 1.28 mg/dL High 0.70-1.20 [facility] Serum globulin measurementOr dered By: Jairo Grande on 05-10-2025 Globulin (S) [Mass/Vol] 2.4 g/dL 2.2-4.2 [facility] Serum glucose measurement (m ass/volume)Ordered By: Jairo Grande on 05-10-2025 Glucose [Mass/Vol] 99 mg/dL 70-99 [facility] Serum or plasma alanine chavez otransferase (ALT) measurementOrdered By: Jairo Grande on 05-10-2025 ALT [Catalytic activity/Vol] 17 U/L <47 [facility] Serum or plasma albumin gm urement (mass/volume)Ordered By: Jairo Grande on 05-10-2025 Albumin [Mass/Vol] 4.2 g/dL 3.4-4.8 [facility] Serum or plasma alkaline lynn sphatase measurementOrdered By: Jairo Grande on 05-10-2025 ALP [Catalytic activity/Vol] 70 U/L 40-129 [facility] Serum or plasma calcium gm urement (mass/volume)Ordered By: Jairo Grande on 05-10-2025 Calcium [Mass/Vol] 10.1 mg/dL 7.6-11.0 [facility] Serum or plasma cholesterol in HDL measurement (mass/volume)Ordered By: Jairo Grande on 05-10-2025 Cholesterol in HDL [Mass/Vol] 57 mg/dL >40 [facility] Comment on above: National Cholesterol Education Program (NCEP) guidelines:<40 mg/dL: Low HDL-cholesterol (major risk factor for CHD)>= 60 mg/dL: High HDL-cholesterol (negative risk factor for CHD)HDL-cholesterol is affected by a number of factors, e.g. smoking, exercise, hormones, sex and age. Serum or plasma cholesterol measurement (mass/volume)Ordered By: Jairo Grande on 05-10-2025 Cholesterol [Mass/Vol] 179 mg/dL <201 [facility] Comment on above: Cholesterol level, D esirable <200 mg/dLBorderline high cholesterol 200-239 mg/dLHigh cholesterol >=240 mg/dLRecommendations of the NCEP Adult Treatment Panel for the following risk-cutoff thresholds for the [place] population. Serum or plasma urea nitroge n measurement (mass/volume)Ordered By: Jairo Grande on 05-10-2025 Urea nitrogen [Mass/Vol] 19 mg/dL 4-19 [facility] Sodium levelOrdered By: Jairo Grande on 05-10-2025 Sodium [Moles/Vol] 142 mmol/L 133-145 [facility] TSH DL <= 0.005 mIU/L QnOrde red By: Jairo Grande on 05-10-2025 TSH Qn 1.760 uIU/mL 0.300-4.200 [facility] Thyroid Stim Hormone (TSH)on 05-10-2025 TSH 1.760 uIU/mL Normal 0.300-4.200 [facility] Comment on above: Performed By: #### L 100.0100, L500.2500, L500.4100, L500.3400, L501.9520 #### [facility] [address] [place], [address] Total proteinOrdered By: Suman Grande on 05-10-2025 Protein [Mass/Vol] 6.5 g/dL 5.9-8.4 [facility] Triglycerides measurementOrd ered By: Jairo Grande on 05-10-2025 Triglyceride [Mass/Vol] 86 mg/dL <199 [facility] Comment on above: The drugs N-Acetylcy steine and Metamizole may falsely depress this assay. Normal range: <150 mg/dLBorderline High: 150-199 mg/dLHigh: 200-499 mg/dLVery High: >500 mg/dL White blood cell (WBC) count Ordered By: Jairo Grande on 05-10-2025 WBC (Bld) [#/Vol] 7.1 10*3/uL 4.4-11.0 [facility] Orthopedic Visit Reporton Orthopedic Visit Report [facility] [address] [place] [address] [address] [place] [address] OFFICE VISIT Date of Service: 04/20/25 MR#: [id number] Acct: [id number] Name: BRIGETTE HOLGUIN Rep #: [id number] : 1950 Provider: Dr. Deangelo gifford, DO Age/Sex: 74/M Location: [facility] [place] Status: Signed Intake Vital Signs 01/05/25 09:23 Height 5 ft 9 in Intake Visit Reasons: right hip Allergies Sulfa (Sulfonamide Antibiotics) Allergy (Mild, Verified 04/20/25 15:36) Rash clopidogrel (From Plavix) Adverse Reaction (Severe, Verified 04/20/25 15:36) Other - genetic nonresponder, needs brillinta oxybutynin Adverse Reaction (Severe, Verified 04/20/25 15:36) short of breath, very dry mouth metoprolol (From Lopressor) Adverse Reaction (Mild, Verified 04/20/25 15:36) - bronchospasm nystatin Adverse Reaction (Unknown, Verified 04/20/25 15:36) Unknown adhesive tape Adverse Reaction (Verified 04/20/25 15:36) Itching Medications ???Medication ???Instructions ???Recorded ???Confirmed ???Type albuterol sulfate 90 mcg/actuation 2 puff inhalation Q4H PRN 04/20/25 Rx aerosol inhaler (Ventolin HFA) shortness of breath or wheezing #18 grams rivaroxaban 20 mg tablet (Xarelto) 20 mg PO DAILY #90 tabs 05/05/24 04/20/25 Rx levothyroxine 25 mcg tablet 25 mcg PO QDAY Filling as 07/07/24 04/20/25 Rx courtesy, pt needs to get from Primary #90 tabs losartan 25 mg tablet 25 mg PO DAILY #90 tabs 07/07/24 0 04/20/25 Rx nitroglycerin 0.4 mg sublingual 0.4 mg sublingual Q5M PRN Chest 04/20/25 Rx tablet Pain #25 tabs budesonide 160 mcg-glycopyr 9 inh inhalation lunges 01/05/25 History mcg-formot 4.8 mcg/actuation HFA inhaler tiotropium bromide 2.5 inhalation Breathing problems 11/2604/20/25 History mcg/actuation mist for inhalation (Spiriva Respimat) diltiazem HCl 240 mg 240 mg PO QDAY #90 caps 01/07/25 0 04/20/25 Rx capsule,extended release 24 hr (Cartia XT) Have you fallen in the past year?: No PFSH Medical History Wears glasses Thyroid disease Blood disorder History of echocardiogram History of stress test Hypertension Cardiology follow-up encounter Knee pain with internal derangement determined by x-ray History of CVA (cerebrovascular accident) (08/2012) Chronic kidney disease (CKD) Essential (primary) hypertension B12 deficiency Complex partial seizure Non-smoker TIA (transient ischemic attack) Urinary retention Segmental and somatic dysfunction of pelvic region Candidiasis of mouth Rheumatoid arthritis BRANDON (obstructive sleep apnea) Carotid artery stenosis HLD (hyperlipidemia) Sinus bradycardia Pzrst-Asgqxpvqj-Mmjju (WPW) syndrome Sick sinus syndrome Old myocardial infarction BPH (benign prostatic hyperplasia) Atherosclerosis of coronary artery of upper [place] heart without angina pectoris Segmental and somatic dysfunction of cervical region Segmental and somatic dysfunction of thoracic region Segmental and somatic dysfunction of lumbar region 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 Surgical History History of shoulder surgery (01/2021) History of permanent cardiac pacemaker placement (12/08/12) History of spinal surgery History of herniorrhaphy History of left heart catheterization (08/02/19) History of coronary artery stent placement (07/23/13) Family History Brother CVA (cerebral vascular accident) Carotid artery stenosis Father CVA (cerebral vascular accident) Carotid artery stenosis Mother Stomach cancer Social History household members: spouse Smoking Status: Never smoker alcohol intake: never substance use type: does not use what type of physical activity do you participate in: walking HPI right hip Details: This documentation accurately reflects the service provided and the decisions made by me, Dr. Deangelo Rojas, DO 04/20/25 1153. Part of today???s visit was documented by Meche HAMLIN, acting as scribe. BRIGETTE HOLGUIN is a 74 year old M here today for MRI review of the right hip. Patient denies any changes to his symptoms. 04/11/2025 visit:74 year old M here today for follow-up on right hip pain. His states that Dr. Landeros states that he thinks the hip is getting worse and needs re-evaluated. His last injection for the hip was 03/30/2025. he does still get relief from the injections but only gets about 3 weeks of relief. He does use a cane to ambulate. Dr. Landeros did prescribe him [place] but he doesn't like to take it unless he is having severe pain. He does use Voltaren gel for the hip. He has done PT and does exercises (more content not included)... Normal [facility] Magnetic resonance imaging r eportOrdered By: Washington Holley on 04-18-2025 Study report [facility] [address] [place] [address] Lower Ext Joint Only (Routine) MR#: [id number] Acct: [id number] Name: BRIGETTE HOLGUIN Rep #: [id number] : 1950 M 74 From: Anna Marie Holley MD PCP: Dr. Paresh Carranza MD Status: MISAEL STEPHENSON Study:Lower Ext Joint Only (Routine) Date of Exam: 04/15/25 Exam# [id number] Ordering Dr: Deangelo Rojas DO PROCEDURE: LOWER EXT JOINT ONLY (ROUTINE) 04/15/2025 REASON FOR EXAM: PAIN TECHNIQUE: Procedure Code: MRILEJ Modality: MR Procedure: LOWER EXT JOINT ONLY (ROUTINE) T1, T2, PD, multiplanar and multisequence images were obtained of the right hip without IV contrast administration. COMPARISON: COMPARISON : December 31, 2024 x-ray FINDINGS: Bone marrow and osseous structures: There is a 1.7 by 1.2 cm subcortical focus of marrow edema in the superior right femoral head consistent with a developing osteochondral defect, with adjacent marrow edema, with no visible free fragment. Hardware is noted in the lumbar spine. Articular cartilage: There is severe joint space narrowing. 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 Labrum: There is degeneration throughout the labrum with a 0.8 x 0.6 cm paralabral cyst at the anterior superior labrum, axial PD image 8/30. Hip joint: There is no intra-articular body. The ligamentum teres is unremarkable. There is a large joint effusion. Hip abductors: The gluteus medius and minimus tendons are intact without tendinosis or tear. Iliopsoas tendon: There is moderate distal iliopsoas tendinopathy with increasedT2 signal and attenuation. No iliopsoas bursitis. The hamstring origins appear intact. MRI/Lower Ext Joint Only (Routine) IMPRESSION: There is a 1.7 by 1.2 cm subcortical focus of marrow edema in the superior rightfemoral head consistent with a developing osteochondral defect, with adjacent marrow edema, with no visible free fragment. There is severe joint space narrowing. 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 There is degeneration throughout the labrum with a 0.8 x 0.6 cm paralabral cyst at the anterior superior labrum, axial PD image 8/30. There is a large joint effusion. There is moderate distal iliopsoas tendinopathy with increased T2 signal and attenuation. Reading Location: [facility] CC: Dr. Deangelo Rojas DO; Dr. Paresh Carranza MD ~ Project Assistant: Signed [facility] Lower Ext Joint Only (Routin e)on 04-15-2025 Lower Ext Joint Only (Routine) [facility] [address] [place] [address] [id number] Lower Ext Joint Only (Routine) MR#: [id number] Acct: [id number] Name: BRIGETTE HOLGUIN Rep #: [id number] : 1950 M 74 From: Washington Holley MD PCP: Dr. Paresh Carranza MD Status: REG CLI Study: Lower Ext Joint Only (Routine) Date of Exam: 0 04/15/25 Exam# [id number] Ordering Dr: Deangelo Rojas DO PROCEDURE: LOWER EXT JOINT ONLY (ROUTINE) 04/15/2025 REASON FOR EXAM: PAIN TECHNIQUE: Procedure Code: MRILEJ Modality: MR Procedure: LOWER EXT JOINT ONLY (ROUTINE) T1, T2, PD, multiplanar and multisequence images were obtained of the right hip without IV contrast administration. COMPARISON: COMPARISON : December 31, 2024 x-ray FINDINGS: Bone marrow and osseous structures: There is a 1.7 by 1.2 cm subcortical focus of marrow edema in the superior right femoral head consistent with a developing osteochondral defect, with adjacent marrow edema, with no visible free fragment. Hardware is noted in the lumbar spine. Articular cartilage: There is severe joint space narrowing. 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 Labrum: There is degeneration throughout the labrum with a 0.8 x 0.6 cm paralabral cyst at the anterior superior labrum, axial PD image 8/30. Hip joint: There is no intra-articular body. The ligamentum teres is unremarkable. There is a large joint effusion. Hip abductors: The gluteus medius and minimus tendons are intact without tendinosis or tear. Iliopsoas tendon: There is moderate distal iliopsoas tendinopathy with increased T2 signal and attenuation. No iliopsoas bursitis. The hamstring origins appear intact. MRI/Lower Ext Joint Only (Routine) IMPRESSION: There is a 1.7 by 1.2 cm subcortical focus of marrow edema in the superior right femoral head consistent with a developing osteochondral defect, with adjacent marrow edema, with no visible free fragment. There is severe joint space narrowing. 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 There is degeneration throughout the labrum with a 0.8 x 0.6 cm paralabral cyst at the anterior superior labrum, axial PD image 8/30. There is a large joint effusion. There is moderate distal iliopsoas tendinopathy with increased T2 signal and attenuation. Reading Location: [facility] CC: Dr. Deangelo Rojas DO; Dr. Paresh Carranza MD Project Assistant: Signed Normal [facility] Orthopedic Visit Reporton Orthopedic Visit Report [facility] [address] [place] [address] OFFICE VISIT Date of Service: 04/11/25 MR#: [id number] Acct: [id number] Name: BRIGETTE HOLGUIN Rep #: [id number] : 1950 Provider: Dr. Deangelo gifford DO Age/Sex: 74/M Location: [facility] [place] Status: Signed Intake Vital Signs 01/05/25 09:23 Height 5 ft 9 in Weight: 171 lb BMI 25.2 BP 152/71 H Blood Pressure Location Lt brachial Position Sitting Respiration 14 Pulse 59 L Pulse Source NIBP Intake Visit Reasons: RIGHT HIP Allergies Sulfa (Sulfonamide Antibiotics) Allergy (Mild, Verified 04/11/25 15:56) Rash clopidogrel (From Plavix) Adverse Reaction (Severe, Verified 04/11/25 15:56) Other - genetic nonresponder, needs brillinta oxybutynin Adverse Reaction (Severe, Verified 04/11/25 15:56) short of breath, very dry mouth metoprolol (From Lopressor) Adverse Reaction (Mild, Verified 04/11/25 15:56) - bronchospasm nystatin Adverse Reaction (Unknown, Verified 04/11/25 15:56) Unknown adhesive tape Adverse Reaction (Verified 04/11/25 15:56) Itching Medications ???Medication ???Instructions ???Recorded ???Confirmed ???Type albuterol sulfate 90 mcg/actuation 2 puff inhalation Q4H PRN 04/11/25 Rx aerosol inhaler (Ventolin HFA) shortness of breath or wheezing #18 grams rivaroxaban 20 mg tablet (Xarelto) 20 mg PO DAILY #90 tabs 05/05/24 04/11/25 Rx levothyroxine 25 mcg tablet 25 mcg PO QDAY Filling as 07/07/24 04/11/25 Rx courtesy, pt needs to get from Primary #90 tabs losartan 25 mg tablet 25 mg PO DAILY #90 tabs 07/07/24 0 04/11/25 Rx nitroglycerin 0.4 mg sublingual 0.4 mg sublingual Q5M PRN Chest 04/11/25 Rx tablet Pain #25 tabs budesonide 160 mcg-glycopyr 9 inh inhalation lunges 01/05/2503/28 History mcg-formot 4.8 mcg/actuation HFA inhaler tiotropium bromide 2.5 inhalation Breathing problems 11/2604/11/25 History mcg/actuation mist for inhalation (Spiriva Respimat) diltiazem HCl 240 mg 240 mg PO QDAY #90 caps 01/07/25 0 04/11/25 Rx capsule,extended release 24 hr (Cartia XT) Have you fallen in the past year?: No PFSH Medical History Wears glasses Thyroid disease Blood disorder History of echocardiogram History of stress test Hypertension Cardiology follow-up encounter Knee pain with internal derangement determined by x-ray History of CVA (cerebrovascular accident) (08/2012) Chronic kidney disease (CKD) Essential (primary) hypertension B12 deficiency Complex partial seizure Non-smoker TIA (transient ischemic attack) Urinary retention Segmental and somatic dysfunction of pelvic region Candidiasis of mouth Rheumatoid arthritis BRANDON (obstructive sleep apnea) Carotid artery stenosis HLD (hyperlipidemia) Sinus bradycardia Fzsjp-Chusqilhi-Atoef (WPW) syndrome Sick sinus syndrome Old myocardial infarction BPH (benign prostatic hyperplasia) Atherosclerosis of coronary artery of upper [place] heart without angina pectoris Segmental and somatic dysfunction of cervical region Segmental and somatic dysfunction of thoracic region Segmental and somatic dysfunction of lumbar region 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 Surgical History History of shoulder surgery (01/2021) History of permanent cardiac pacemaker placement (12/08/12) History of spinal surgery History of herniorrhaphy History of left heart catheterization (08/02/19) History of coronary artery stent placement (07/23/13) Family History Brother CVA (cerebral vascular accident) Carotid artery stenosis Father CVA (cerebral vascular accident) Carotid artery stenosis Mother Stomach cancer Social History household members: spouse Smoking Status: Never smoker alcohol intake: never substance use type: does not use what type of physical activity do you participate in: walking HPI RIGHT HIP Details: This documentation accurately reflects the service provided and the decisions made by me, Dr. Deangelo Rojas, DO 04/11/25 0940. Part of today???s visit was documented by Meche HAMLIN, acting as scribe. BRIGETTE HOLGUIN is a 74 year old M here today for follow-up on right hip pain. His states that Dr. Landeros states that he thinks the hip is getting worse and needs re-evaluated. His last injection for the hip was about a month ago. he does still get relief from the injections but only gets about 3 weeks of relief. He does use a cane to ambulate. Dr. Landeros did prescribe him [place] but he doesn't like to take it unless he is having severe pain. He does use (more content not included)... Normal [facility] Inital Evaluation (1) - PTon 02-01-2025 Inital Evaluation (1) - PT [facility] Physical Therapy [facility] [address] [place] [address]. [address] [place] [address] / REHABILITATION SERVICES INITIAL EVALUATION MR#: [id number] Acct: [id number] Name: BRIGETTE HOLGUIN Rep #: [id number] : 1950 74 From: Rosa Maria MCGINNIS Referring Dr.: Dr. Deangelo Rojas DO Status: R EG RCR Insurance: MEDICARE PART A B [facility] Patient's Visit Information Visit Information Visit Information: BRIGETTE HOLGUIN is a 74 year old M referred to Physical Therapy by Dr. Deangelo Rojas DO with a diagnosis of IT band syndrome, grt troch bursitis, L radic. Date of Evaluation: 02/01/25 Physical Therapist: RAHEL Torres Visit Plan Frequency: 2x /Week Duration: 2 Months Plan: 2X/ week for 8 weeks for rolling of R QUAD and stretching of R Quad and R hip flexor, R hip strength, Core stability, gait training with HEP HEP: Brittney meol stretch (just getting into position with leg off side of table, QS) Subjective Subjective: They thought it was his hip and went to Dr Israel and they put an intra articular injection in his groin and then they found out it was not his hip but it was his back. So basically after the injection he could not walk. They said it would take time and a month later he was still not walking. Dr Mcleod did an injection in the side of the leg because his IT band was tightening up. The tightening is better. He still has pain from the groin to the knee on the R leg. He has been using Ultram topical and that helps some. He has pain with sitting, walking and the bed is worse. He has L4/L5 fusion and L3 narrowing. He has had no falls. He uses a walker at home. He has steps at home and goes up one step at a time with a railing to get up the steps. He does not sleep through the night due to pain and urination. Pain R hip pain: Pain Intensity (Out of 10): 5 back pain: Pain Intensity (Out of 10): 5 R thigh pain: Pain Intensity (Out of 10): 9 Objective Objective: Gait: walks with decrease stance time on the R LE using a rolling walker and decrease stride length. LE MMT: R hip flex 14.2 and L 16.6 R knee ext 9.2 and L 19.2 R knee flex 7.4 and L 10.4 Pt is able to heel and toe raise holding on but very weak Pt is able to do standing hip flexion but increase pain on the R when standing on the L Pt has increase pain with stretching of his Quad and hip flexor on the R. He was unable to get his R leg even with the table on the side of the table with the brittney stretch. Worked into the brittney stretch position for several minutes and was able to get into the position with very little knee bend. Foam rolled manual to R Quad and that helped a lot too. Balance/Special Test Scores Lower Extremity Functional Score: 26 Goals Goal 1:: I HEP Goal Time Frame: 6-8 Weeks Goal 2:: Be able to stretch his R quad without pin Goal Time Frame: 6-8 Weeks Goal 3:: Increase R hip and core strength (at the time of the eval: LE MMT: R hip flex 14.2 and L 16.6 R knee ext 9.2 and L 19.2 R knee flex 7.4 and L 10.4) Goal Time Frame: 6-8 Weeks Goal 4:: Be able to walk with least restrictive device with normal gait pattern with CGA Goal Time Frame: 6-8 Weeks Rehabilitation Potential Rehabilitation Potential: Good Anticipated Interventions Patient/Client Instruction: Educate patient on: Condition and Plan of Care For the Purpose of:: To decrease pain, To increase ROM, To improve nutrient delivery to tissue, To improve muscle performance and motor function, To improve ability to perform ADL's, To increase tolerance to activity/condition/positi on, To improve performance and independence with ADL's, To decrease level of supervision to perform tasks, To improve ability of physical actions for home/community/work/leisu re, To improve gait and locomotor functions, To improve health of tissue, To decrease soft tissue restriction, To increase flexibility/ROM, To improve endurance, To improve balance and To improve safety with gait Therapeutic Exercise to Include: Strength training, Endurance training, Balance training, Body mechanics, Postural training, Flexibilty training, Gait and locomotor training, Neuromotor development, Passive ROM, Active ROM and Dynamic Lumbar Stabilization For the Purpose of:: To decrease pain, To decrease swelling/inflammation, To increase ROM, To improve nutrient delivery to tissue, To improve muscle performance and motor function, To improve ability to perform ADL's, To increase tolerance to activity/condition/positi on, To improve performance and independence with ADL's, To decrease level of supervision to perform tasks, To improve ability of physical actions for home/community/work/leisu re, To improve gait and locomotor functions, To improve health of tissue, To decrease soft tissue restriction, To increase flexibility/ROM, To improve (more content not included)... Normal [facility] Cardiology Visit Reporton Cardiology Visit Report [facility] [address] [place], [place] [address] OFFICE VISIT Date of Service: 01/05/25 MR#: [id number] Acct: [id number] Name: BRIGETTE HOLGUIN Rep #: [id number] : 1950 Provider: ANABEL palmer Age/Sex: 74/M Location: [facility] Status: Signed HPI HPI History of Present Illness Details: Mr. Holguin is a 74-year-old white male, who presents today for outpatient cardiovascular followup. As you know, he has a history of hypertension, hypercholesterolemia, paroxysmal atrial fibrillation, coronary artery disease status post angioplasty and drug-eluting stenting to the LAD at [facility] on 07/23/13. At that time he received a 3.0X 20 Promus element stent. The patient had a known tiny 1.5-2 mm in diameter diagonal #1 branch was is diffusely diseased since catheterization in 2006. He has never had a balloon angioplasty of that vessel. He returned on 08/21/16 with recurrent chest pain and then underwent a stress test which suggested possible anterior ischemia. We repeated his catheterization which demonstrated nonobstructive disease of his RCA and left circumflex, widely patent stent of his LAD but loss of that tiny little diagonal branch. No intervention was attempted. Patient was subsequently sent home on medical management. He had been placed on a beta-elza. 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 He does knowledge improvement in symptoms since last office visit. [facility]. He denies chest, arm, jaw, or neck discomfort. He denies palpitations. He denies bilateral lower extremity edema. He denies claudication. He states shortness of breath with activity and at rest that he attributes to asthma/emphysema. He denies orthopnea or PND. He denies chronic cough. He denies significant, sudden weight gain. He denies lightheadedness, dizziness, near-syncope, or syncope. He denies blood in urine, blood in stool, or epistaxis. He denies fever or chills. He denies myalgia. He states fatigue. His exercise level has remained stable via work which requires walking. 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 Required: No Accompanied by: Is patient in pain?: No Allergies Sulfa (Sulfonamide Antibiotics) Allergy (Mild, Verified 01/05/25 09:35) Rash clopidogrel (From Plavix) Adverse Reaction (Severe, Verified 01/05/25 09:35) Other - genetic nonresponder, needs brillinta oxybutynin Adverse Reaction (Severe, Verified 01/05/25 09:35) short of breath, very dry mouth metoprolol (From Lopressor) Adverse Reaction (Mild, Verified 01/05/25 09:35) - bronchospasm nystatin Adverse Reaction (Unknown, Verified 01/05/25 09:35) Unknown adhesive tape Adverse Reaction (Verified 01/05/25 09:35) Itching Medications ???Medication ???Instructions ???Recorded ???Confirmed ???Type albuterol sulfate 90 mcg/actuation 2 puff inhalation Q4H PRN 01/05/25 Rx aerosol inhaler (Ventolin HFA) shortness of breath or wheezing #18 grams rivaroxaban 20 mg tablet (Xarelto) 20 mg PO DAILY #90 tabs 05/05/24 01/05/25 Rx levothyroxine 25 mcg tablet 25 mcg PO QDAY Filling as 07/07/24 01/05/25 Rx courtesy, pt needs to get from Primary #90 tabs losartan 25 mg tablet 25 mg PO DAILY #90 tabs 07/07/24 0 01/05/25 Rx nitroglycerin 0.4 mg sublingual 0.4 mg sublingual Q5M PRN Chest 01/05/25 Rx tablet Pain #25 tabs budesonide 160 mcg-glycopyr 9 inh inhalation lunges 01/05/2511/26 History mcg-formot 4.8 mcg/actuation HFA inhaler diltiazem HCl 240 mg 240 mg PO QAM #30 tabs 01/05/25 Rx tablet,extended release 24 hr tiotropium bromide 2.5 inhalation Breathing problems 11/2601/05/25 History mcg/actuation mist for inhalation (Spiriva Respimat) Ejection fraction %: 65 Have you fallen in the past year?: No PFSH Medical History Wears glasses Thyroid disease Blood disorder History of echocardiogram History of stress test Hypertension Cardiology follow-up encounter Knee pain with internal derangement determined by x-ray History of CVA (cerebrovascular accident) (08/2012) Chronic kidney disease (CKD) Essential (primary) hypertension B12 deficiency Complex partial seizure Non-smoker TIA (transient ischemic attack) Urinary retention Segment (more content not included)... Normal [facility] HIP, UNI W/ Pelvis 2-3 Views on 12-31-2024 HIP, UNI W/ Pelvis 2-3 Views [facility] [address] [place], [place] [id number] HIP, UNI W/ Pelvis 2-3 Views MR#: [id number] Acct: [id number] Name: BRIGETTE HOLGUIN Rep #: [id number] : 1950 M 74 From: Jairon Salinas MD PCP: Dr. Paresh Carranza MD Status: DEP AMB Study: HIP, UNI W/ Pelvis 2-3 Views Date of Exam: Exam# [id number] Ordering Dr: Deangelo Rojas DO PROCEDURE: HIP, UNI W/ PELVIS 2-3 VIEWS 12/31/2024 REASON FOR EXAM: CHRONIC PAIN, TECHNIQUE: AP pelvis and two views right hip, 3 total images COMPARISON: None available FINDINGS: Tlrd-np-cphhntje lateral joint space narrowing right hip with some acetabular sclerotic change. No significant osteophyte formation identified. No fracture or dislocation. Symmetric appearing SI joints and pubic symphysis appear within limits. Lower lumbar hardware and degenerative changes. Possible exostosis left ilium. RAD/HIP, UNI W/ Pelvis 2-3 Views IMPRESSION: Zbhf-wo-wimijqyo appearing osteoarthrosis right hip. Reading Location: [id number] CC: Dr. Deangelo Rojas DO; Dr. Paresh Carranza MD Project Assistant: Signed Normal [facility] Lumbar Spine 2 or 3 Viewson 12-31-2024 Lumbar Spine 2 or 3 Views [facility] [address] [place], [place] [id number] Lumbar Spine 2 or 3 Views MR#: [id number] Acct: [id number] Name: BRIGETTE HOLGUIN Rep #: [id number] : 1950 M 74 From: Jairon Salinas MD PCP: Dr. Paresh Carranza MD Status: DEP AMB Study: Lumbar Spine 2 or 3 Views Date of Exam: Exam# [id number] Ordering Dr: Deangelo Rojas DO PROCEDURE: LUMBAR SPINE 2 OR 3 VIEWS 12/31/2024 REASON FOR EXAM: HX OF LUMBAR FUSION, RIGHT HIP PAIN TECHNIQUE: 2 view(s) of the lumbar spine COMPARISON: 12/26/2022 FINDINGS: Status post L4-5 intervertebral disc spacer with bilateral posterior fusion and laminectomy appears intact and unchanged. No fracture or change in alignment identified. Areas of spondylosis/discogenic change again noted not significantly changed. Aortoiliac atherosclerotic calcification. Mild rightward curvature. RAD/Lumbar Spine 2 or 3 Views IMPRESSION: No significant appearing interval change as above. Reading Location: [id number] CC: Dr. Deangelo Rojas DO; Dr. Paresh Carranza MD Project Assistant: Signed Normal [facility] Orthopedic Visit Reporton Orthopedic Visit Report [facility] [address] [place] [address] OFFICE VISIT Date of Service: 12/31/24 MR#: [id number] Acct: [id number] Name: BRIGETTE HOLGUIN Rep #: [id number] : 1950 Provider: Dr. Deangelo gifford DO Age/Sex: 74/M Location: [facility] Status: Signed Intake Vital Signs 11/08/24 10:42 12/31/24 09:32 Height 5 ft 9 in 5 ft 9 in Weight: 174 lb 6 oz BMI 25.7 Intake Visit Reasons: RIGHT HIP Accompanied by: Self Is patient in pain?: Yes Pain scale (1-10): 5 Allergies Sulfa (Sulfonamide Antibiotics) Allergy (Mild, Verified 12/31/24 09:33) Rash clopidogrel (From Plavix) Adverse Reaction (Severe, Verified 12/31/24 09:33) Other - genetic nonresponder, needs brillinta oxybutynin Adverse Reaction (Severe, Verified 12/31/24 09:33) short of breath, very dry mouth metoprolol (From Lopressor) Adverse Reaction (Mild, Verified 12/31/24 09:33) - bronchospasm nystatin Adverse Reaction (Unknown, Verified 12/31/24 09:33) Unknown adhesive tape Adverse Reaction (Verified 12/31/24 09:33) Itching Medications ???Medication ???Instructions ???Recorded ???Confirmed ???Type albuterol sulfate 90 mcg/actuation 2 puff inhalation Q4H PRN 12/31/24 Rx aerosol inhaler (Ventolin HFA) shortness of breath or wheezing #18 grams rivaroxaban 20 mg tablet (Xarelto) 20 mg PO DAILY #90 tabs 05/05/24 12/31/24 Rx levothyroxine 25 mcg tablet 25 mcg PO QDAY Filling as 07/07/24 12/31/24 Rx courtesy, pt needs to get from Primary #90 tabs losartan 25 mg tablet 25 mg PO DAILY #90 tabs 07/07/24 0 12/31/24 Rx nitroglycerin 0.4 mg sublingual 0.4 mg sublingual Q5M PRN Chest 12/31/24 Rx tablet Pain #25 tabs cholecalciferol (vitamin D3) 25 25 mcg PO QDAY 11/08/24 12/31/24 H istory mcg (1,000 unit) capsule magnesium gluconate 12.5 mg 1,000 mg PO ONCE 11/08/24 12/31/24 History magnesium (250 mg) tablet vitamin K2 100 mcg capsule 100 mcg PO QDAY 11/08/24 12/31/24 History diltiazem HCl 180 mg capsule,24 180 mg PO QAM #90 caps 12/07/24 Rx hr,extended release Have you fallen in the past year?: No PFSH Medical History Wears glasses Thyroid disease Blood disorder History of echocardiogram History of stress test Hypertension Cardiology follow-up encounter Knee pain with internal derangement determined by x-ray History of CVA (cerebrovascular accident) (08/2012) Chronic kidney disease (CKD) Essential (primary) hypertension B12 deficiency Complex partial seizure Non-smoker TIA (transient ischemic attack) Urinary retention Segmental and somatic dysfunction of pelvic region Candidiasis of mouth Rheumatoid arthritis BRANDON (obstructive sleep apnea) Carotid artery stenosis HLD (hyperlipidemia) Sinus bradycardia Afppr-Nlkwqxaua-Ptlbg (WPW) syndrome Sick sinus syndrome Old myocardial infarction BPH (benign prostatic hyperplasia) Atherosclerosis of coronary artery of upper [place] heart without angina pectoris Segmental and somatic dysfunction of cervical region Segmental and somatic dysfunction of thoracic region Segmental and somatic dysfunction of lumbar region 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 Surgical History History of shoulder surgery (01/2021) History of permanent cardiac pacemaker placement (12/08/12) History of spinal surgery History of herniorrhaphy History of left heart catheterization (08/02/19) History of coronary artery stent placement (07/23/13) Family History Brother CVA (cerebral vascular accident) Carotid artery stenosis Father CVA (cerebral vascular accident) Carotid artery stenosis Mother Stomach cancer Social History household members: spouse Smoking Status: Never smoker alcohol intake: never substance use type: does not use what type of physical activity do you participate in: walking HPI RIGHT HIP Details: This documentation accurately reflects the service provided and the decisions made by me, Dr. Deangelo Rojas, DO 12/31/24 0744. Part of today???s visit was documented by Meche HAMLIN, acting as scribe. 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 He states that he has pain on the lateral side, posterior, and grin. His pain does radiated down the leg but stops (more content not included)... Normal [facility] Cardiovascular stress test r eportOrdered By: Chevy Rooney on 11-16-2024 Study report [facility] Cardiovascular [address] [address] MR#: [id number] Acct: [id number] Name: BRIGETTE HOLGUIN Rep #: [id number] : 1950 74 From: Chevy Rooney MD Primary Care: Dr. Paresh Carranza MD Status : REG CLI Referring Dr: Jairo Grande NP Sex: M C Stress Test Report Pharmacologic myocardial perfusion stress test. 74-year-old man with a history of coronary artery disease status post pacemaker implantation and chest pain Resting EKG demonstrates atrial fibrillation with ventricular paced rhythm with a rate of 73 bpm. Resting blood pressure is 130/82 mmHg. 0.4 mg of regadenosonwas infused per usual protocol followed by rapid intravenous saline flush injection. Continuous EKG monitoring was performed. The maximum heart rate was84 bpm which was 57% of max impacted heart rate the maximum workload was 1 metabolic equivalent. At rest there were no ST or T wave changes noted to suggest ischemia and at peak infusion nonspecific ST changes were noted which did not meet the criteria for ischemia. No clinical angina is noted. The final blood pressure was 118/78 mmHg. Myocardial perfusion protocol. 11.8 mCi of technetium 99m sestamibi was injected at rest. 0.4 mg of regadenoson was infused per usual protocol. At peak infusion 34.6 mCi of technetium 99m sestamibi was injected stress images were obtained stress and rest images were reconstructed and compared in the short axis vertical long and horizontal long axis. Gated images were also obtained. Perfusion SPECT analysis: Review of the stress images demonstrate normal uptake of tracer noted in all areas of the myocardium. The resting images similar demonstrated normal uptake of tracer noted in all areas of the myocardium. No areas of reversibility are noted to suggest ischemia and no previous infarct is noted. Gated SPECT analysis: The gated ejection fraction is 76%. Conclusion: Normal pharmacologic myocardial perfusion stress test. Preserved ejection fraction. 11/16/24 1226 Date _ Chevy Rooney MD CC: SHOE STAINERJose D Grande; Dr. Paresh Carranza MD ~ Date Dictated: 04/1224 Date Transcribed: 11/16/241224 Project Assistant: CO Signed [facility] Work Phone: Echo Completeon 11-16-2024 Echo Complete [facility] [place] [address] Echo Complete 11/16/24 0741 MR#: [id number] Acct: [id number] Name: BRIGETTE HOLGUIN Rep #: [id number] : 1950 74 From: Chevy Rooney MD Attending Dr: Jairo Grande, SHOE STAINER-C Status: REG CLI Ordering Dr: Jairo Grande SHOE STAINER SHOE STAINER-C Date: 11/16/24 Location: [facility] Sex: M C Admitted: Reason For Study Reason For Study: SOB Procedure This was a 2D Doppler, Color Flow transthoracic echocardiogram. Exam performed in department. Left Ventricle Normal LV size. The left ventricular ejection fraction is 65 %. Stage 1 diastolic dysfunction. No regional wall motion abnormalities noted. Right Ventricle Normal RV size. ICD or pacer leads identified within the right ventricle. Normal systolic function. Atria Normal left atrium. Normal right atrium. ICD or pacer leads identified within the right atrium. Mitral Valve Normal mitral valve. Tricuspid Valve Normal tricuspid valve. Mild (1+) tricuspid valve insufficiency. Pulmonary artery systolic pressure is 25 mmHg. Aortic Valve Trisinus/trileaflet aortic valve. Mild focal aortic valve thickening. Pulmonic Valve Normal pulmonic valve. Great Vessels Normal aortic root. The pulmonary artery is normal size. Inferior vena cava collapse with respiration. Pericardium/Pleural No pericardial effusion. MMode/2D Measurements Calculations LVIDd: 4.3 cm IVSd: 0.85 cm Ao root diam: 3.8 cm LVIDs: 2.1 cm LVPWd: 1.1 cm RVDd: 3.3 cm FS: 50.5 % LAV(MOD-bp): 39.1 ml LVAd ap4: 25.2 cm2 LVAd ap2: 25.6 cm2 LAV(MOD-bp) Indexed: 20.0 ml/m2 LVLd ap4: 8.4 cm LVLd ap2: 8.3 cm LAV(MOD-sp2): 32.2 ml EDV(MOD-sp4): 62.3 ml EDV(MOD-sp2): 65.7 ml LAV(MOD-sp4): 46.6 ml EDV(sp4-el): 64.5 ml EDV(sp2-el): 66.8 ml LVAs ap4: 13.4 cm2 LVAs ap2: 13.6 cm2 LVLs ap4: 7.3 cm LVLs ap2: 7.2 cm ESV(MOD-sp4): 21.5 ml ESV(MOD-sp2): 22.0 ml ESV(sp4-el): 20.9 ml ESV(sp2-el): 21.8 ml EF(MOD-sp4): 65.4 % EF(MOD-sp2): 66.5 % EF(sp4-el): 67.6 % SV(MOD-sp4): 40.7 ml SV(MOD-sp2): 43.7 ml SV(sp4-el): 43.6 ml SI(MOD-sp4): 20.8 ml/m2 SI(MOD-sp2): 22.3 ml/m2 LA A4 area: 17.6 cm2 LA dimension(2D): 3.5 cm RA A4 area: 14.2 cm2 TAPSE: 1.9 cm Time Measurements MV dec time: 0.21 sec Doppler Measurements Calculations MV E max elizabeth: 74.8 cm/sec Lat Peak E' Elizabeth: 9.3 cm/sec Med Peak E' Elizabeth: 9.7 cm/sec MV A max elizabeth: 82.9 cm/sec E/E' lat: 8.0 E/E' med: 7.7 MV E/A: 0.90 Ao V2 max: 130.9 cm/sec LV V1 max: 94.6 cm/sec MV dec slope: 358.0 cm/sec2 Ao max P.9 mmHg LV V1 max P.6 mmHg Ao V2 mean: 90.0 cm/sec LV V1 mean P.8 mmHg Ao mean P.7 mmHg LV V1 mean: 62.3 cm/sec Ao V2 VTI: 33.4 cm LV V1 VTI: 23.3 cm AV (velocity ratio): 0.70 PA V2 max: 98.7 cm/sec TR max elizabeth: 234.3 cm/sec TR max P.0 mmHg ECHO/Echo Complete Interpretation Summary Normal LV size. The left ventricular ejection fraction is 65 %. Stage 1 diastolic dysfunction. Mild (1+) tricuspid valve insufficiency. ___ Ordering Physician: Jairo Grande Referring Physician: Paresh Carranza Performed By: Unique Butt, LUIS A 11/16/24921 Date Chevy Rooney MD CC: CAROL-C Jairo Grande; Dr. Paresh Carranza MD Date Dictated: 11/16/24740 Date Transcribed: 11/16/24921 Project Assistant: Signed Normal [facility] Echocardiogram study reportO rdered By: Chevy Rooney on 11-16-2024 Study report [facility] [address] [place] [address] Echo Complete 11/16/24740 MR#: [id number] Acct: [id number] Name: BRIGETTE HOLGUIN Rep #:[id number] : 1950 74 From: Chevy Dunn Attending Dr: ANABEL Murray tus: REG CLI Ordering Dr: Jairo Grande NP Date: 11/16/24 Location: [facility] Sex: M C Admitted: Reason For Study Reason For Study: SOB Procedure This was a 2D Doppler, Color Flow transthoracic echocardiogram. Exam performed in department. Left Ventricle Normal LV size. The left ventricular ejection fraction is 65 %. Stage 1 diastolic dysfunction. No regional wall motion abnormalities noted. Right Ventricle Normal RV size. ICD or pacer leads identified within the right ventricle. Normalsystolic function. Atria Normal left atrium. Normal right atrium. ICD or pacer leads identified within the right atrium. Mitral Valve Normal mitral valve. Tricuspid Valve Normal tricuspid valve. Mild (1+) tricuspid valve insufficiency. Pulmonary artery systolic pressure is 25 mmHg. Aortic Valve Trisinus/trileaflet aortic valve. Mild focal aortic valve thickening. Pulmonic Valve Normal pulmonic valve. Great Vessels Normal aortic root. The pulmonary artery is normal size. Inferior vena cava collapse with respiration. Pericardium/Pleural No pericardial effusion. MMode/2D Measurements & Calculations LVIDd: 4.3 cm IVSd: 0.85 cm Ao root diam: 3.8 cm LVIDs: 2.1 cm LVPWd: 1.1 cm RVDd: 3.3 cm FS: 50.5 % LAV(MOD-bp): 39.1 ml LVAd ap4: 25.2 cm2 LVAd ap2: 25.6 cm2 LAV(MOD-bp) Indexed: 20.0 ml/m2 LVLd ap4: 8.4 cm LVLd ap2: 8.3 cm LAV(MOD-sp2): 32.2 ml EDV(MOD-sp4): 62.3 ml EDV(MOD-sp2): 65.7 ml LAV(MOD-sp4): 46.6 ml EDV(sp4-el): 64.5 ml EDV(sp2-el): 66.8 ml LVAs ap4: 13.4 cm2 LVAs ap2: 13.6 cm2 LVLs ap4: 7.3 cm LVLs ap2: 7.2 cm ESV(MOD-sp4): 21.5 ml ESV(MOD-sp2): 22.0 ml ESV(sp4-el): 20.9 ml ESV(sp2-el): 21.8 ml EF(MOD-sp4): 65.4 % EF(MOD-sp2): 66.5 % EF(sp4-el): 67.6 % SV(MOD-sp4): 40.7 ml SV(MOD-sp2): 43.7 ml SV(sp4-el): 43.6 ml SI(MOD-sp4): 20.8 ml/m2 SI(MOD-sp2): 22.3 ml/m2 LA A4 area: 17.6 cm2 LA dimension(2D): 3.5 cm RA A4 area: 14.2 cm2 TAPSE: 1.9 cm Time Measurements MV dec time: 0.21 sec Doppler Measurements & Calculations MV E max elizabeth: 74.8 cm/sec Lat Peak E' Elizabeth: 9.3 cm/sec Med Peak E' Elizabeth: 9.7 cm/sec MV A max elizabeth: 82.9 cm/sec E/E' lat: 8.0 E/E' med: 7.7 MV E/A: 0.90 Ao V2 max: 130.9 cm/sec LV V1 max: 94.6 cm/sec MV dec slope: 358.0 cm/sec2 Ao max P.9 mmHg LV V1 max P.6 mmHg Ao V2 mean: 90.0 cm/sec LV V1 mean P.8 mmHg Ao mean P.7 mmHg LV V1 mean: 62.3 cm/sec Ao V2 VTI: 33.4 cm LV V1 VTI: 23.3 cm AV (velocity ratio): 0.70 PA V2 max: 98.7 cm/sec TR max elizabeth: 234.3 cm/sec TR max P.0 mmHg ECHO/Echo Complete Interpretation Summary Normal LV size. The left ventricular ejection fraction is 65 %. Stage 1 diastolic dysfunction. Mild (1+) tricuspid valve insufficiency. ___ Ordering Physician: Jairo Grande Referring Physician: Paresh Carranza Performed By: Unique Butt, RDYULIA 11/16/24921 Date _ Chevy Rooney MD CC: SHOE STAINER-C Jairo Grande; Dr. Paresh Carranza MD ~ Date Dictated: 11/16/24740 Date Transcribed: 11/16/24921 Project Assistant: Signed [facility] Work Phone: Stress Reporton 11-16-2024 Stress Report [facility] [place] [address] MR#: [id number] Acct: [id number] Name: BRIGETTE HOLGUIN Rep #: [id number] : 1950 74 From: Chevy Rooney MD Primary Care: Dr. Paresh Carranza MD Status: REG CLI Referring Dr: Jairo Grande NP Sex: M C Stress Test Report Pharmacologic myocardial perfusion stress test. 74-year-old man with a history of coronary artery disease status post pacemaker implantation and chest pain Resting EKG demonstrates atrial fibrillation with ventricular paced rhythm with a rate of 73 bpm. Resting blood pressure is 130/82 mmHg. 0.4 mg of regadenoson was infused per usual protocol followed by rapid intravenous saline flush injection. Continuous EKG monitoring was performed. The maximum heart rate was 84 bpm which was 57% of max impacted heart rate the maximum workload was 1 metabolic equivalent. At rest there were no ST or T wave changes noted to suggest ischemia and at peak infusion nonspecific ST changes were noted which did not meet the criteria for ischemia. No clinical angina is noted. The final blood pressure was 118/78 mmHg. Myocardial perfusion protocol. 11.8 mCi of technetium 99m sestamibi was injected at rest. 0.4 mg of regadenoson was infused per usual protocol. At peak infusion 34.6 mCi of technetium 99m sestamibi was injected stress images were obtained stress and rest images were reconstructed and compared in the short axis vertical long and horizontal long axis. Gated images were also obtained. Perfusion SPECT analysis: Review of the stress images demonstrate normal uptake of tracer noted in all areas of the myocardium. The resting images similar demonstrated normal uptake of tracer noted in all areas of the myocardium. No areas of reversibility are noted to suggest ischemia and no previous infarct is noted. Gated SPECT analysis: The gated ejection fraction is 76%. Conclusion: Normal pharmacologic myocardial perfusion stress test. Preserved ejection fraction. 11/16/246 Date Chevy Rooney MD CC: ANABEL Grande; Dr. Paresh Carranza MD Date Dictated: 11/16/241224 Date Transcribed: 11/16/241224 Project Assistant: CO Signed Normal [facility] Absolute lymphocyte countOrd ered By: Jairo Grande on 11-08-2024 Lymphocytes Auto (Unsp spec) [#/Vol] 1.69 10*3/uL 0.83-4.51 [facility] Absolute neutrophil countOrd ered By: Jairo Grande on 11-08-2024 Neutrophils (Bld) [#/Vol] 4.3 10*3/uL 2.0-7.7 [facility] Anion gap in Serum or Plasma Ordered By: Jairo Grande on 11-08-2024 Anion gap [Moles/Vol] 12 mmol/L 5-15 [facility] Automated lymphocyte count a s percentage of total leukocytesOrdered By: Jairo Grande on 11-08-2024 Lymphocytes/100 WBC Auto (Unsp spec) 25.1 % 19-41 [facility] BUN/creatinine ratioOrdered By: Jairo Grande on 11-08-2024 Urea nitrogen/Creatinine [Mass ratio] 16.9 mg/mg 10-20 [facility] Basophil percentageOrdered B y: Jairo Grande on 11-08-2024 Basophils/100 WBC (Bld) 0.6 % 0-1 [facility] Bilirubin, totalOrdered By: Jairo Grande on 11-08-2024 Bilirubin [Mass/Vol] 0.62 mg/dL 0.00-1.30 [facility] CBC W/Diff, Automatedon Absolute Lymph 1.69 X10 3/uL Normal 0.83-4.51 [facility] Comment on above: Performed By: #### L 500.4050, L100.0100, L501.9520, L506.0400, L503.7505 #### [facility] [address] [place], [address] Absolute Neut 4.3 X10 3/uL Normal 2.0-7.7 [facility] Comment on above: Performed By: #### L 500.4050, L100.0100, L501.9520, L506.0400, L503.7505 #### [facility] [address] [place], [address] Basophils/100 WBC (Bld) 0.6 % Normal 0-1 [facility] Comment on above: Performed By: #### L 500.4050, L100.0100, L501.9520, L506.0400, L503.7505 #### [facility] [address] [place], [address] Eosinophils/100 WBC (Bld) 0.3 % Normal 0-5 [facility] Comment on above: Performed By: #### L 500.4050, L100.0100, L501.9520, L506.0400, L503.7505 #### [facility] [address] [place], [address] Erythrocyte distribution width (RBC) [Ratio] 14.0 % Normal 11.6-14.6 [facility] Comment on above: Performed By: #### L 500.4050, L100.0100, L501.9520, L506.0400, L503.7505 #### [facility] [address] [place], [address] Hematocrit (Bld) [Volume fraction] 39.5 % Low 40-54 [facility] Comment on above: Performed By: #### L 500.4050, L100.0100, L501.9520, L506.0400, L503.7505 #### [facility] [address] [place], [address] Hemoglobin (Bld) [Mass/Vol] 13.3 g/dL Normal 13.0-16.5 [facility] Comment on above: Performed By: #### L 500.4050, L100.0100, L501.9520, L506.0400, L503.7505 #### [facility] [address] [place], [address] IG% 0.300 Normal 0.0-0.9 [facility] Comment on above: Result Comment: IG% - Immature Granulocytes (promyelocytes, myelocytes and metamyelocytes) > 1% indicates that a LEFT SHIFT is Present. Performed By: #### L 500.4050, L100.0100, L501.9520, L506.0400, L503.7505 #### [facility] [address] [place], [address] Lymphocytes/100 WBC (Bld) 25.1 % Normal 19-41 [facility] Comment on above: Performed By: #### L 500.4050, L100.0100, L501.9520, L506.0400, L503.7505 #### [facility] [address] [place], [address] MCH (RBC) [Entitic mass] 31.1 pg Normal 27.0-32.0 [facility] Comment on above: Performed By: #### L 500.4050, L100.0100, L501.9520, L506.0400, L503.7505 #### [facility] [address] [place], [address] MCHC (RBC) [Mass/Vol] 33.7 g/dL Normal 32-36 [facility] Comment on above: Performed By: #### L 500.4050, L100.0100, L501.9520, L506.0400, L503.7505 #### [facility] [address] [place], [address] MCV (RBC) [Entitic vol] 92.5 fL Normal 80-94 [facility] Comment on above: Performed By: #### L 500.4050, L100.0100, L501.9520, L506.0400, L503.7505 #### [facility] [address] [place], [address] Monocytes/100 WBC (Bld) 9.6 % Normal 0-10 [facility] Comment on above: Performed By: #### L 500.4050, L100.0100, L501.9520, L506.0400, L503.7505 #### [facility] [address] [place], [address] Neutrophils/100 WBC (Bld) 64.1 % Normal 47-70 [facility] Comment on above: Performed By: #### L 500.4050, L100.0100, L501.9520, L506.0400, L503.7505 #### [facility] [address] [place], [address] Nucleated RBC (Bld) [#/Vol] 0 10*3/uL Normal 0-5 [facility] Comment on above: Performed By: #### L 500.4050, L100.0100, L501.9520, L506.0400, L503.7505 #### [facility] [address] [place], [address] Platelet mean volume (Bld) [Entitic vol] 9.8 fL Normal 6.2-12.0 [facility] Comment on above: Performed By: #### L 500.4050, L100.0100, L501.9520, L506.0400, L503.7505 #### [facility] [address] [place], [address] Platelets (Bld) [#/Vol] 229 10*3/uL Normal 150-450 [facility] Comment on above: Performed By: #### L 500.4050, L100.0100, L501.9520, L506.0400, L503.7505 #### [facility] [address] [place], [address] RBC (Bld) [#/Vol] 4.27 10*6/uL Low 4.6-6.2 [facility] Comment on above: Performed By: #### L 500.4050, L100.0100, L501.9520, L506.0400, L503.7505 #### [facility] [address] [place], [address] RDW SD 47.5 fl High 35.1-43.9 [facility] Comment on above: Performed By: #### L 500.4050, L100.0100, L501.9520, L506.0400, L503.7505 #### [facility] [address] [place], [address] WBC (Bld) [#/Vol] 6.7 10*3/uL Normal 4.4-11.0 [facility] Comment on above: Performed By: #### L 500.4050, L100.0100, L501.9520, L506.0400, L503.7505 #### [facility] [address] [place], [address] Carbon dioxide, total [Moles /volume] in Central venous bloodOrdered By: Jairo Grande on 11-08-2024 CO2 [Moles/Vol] 23.9 mmol/L 21.0-32.0 [facility] Cardiology Visit Reporton Cardiology Visit Report [facility] [address] [place] [address] OFFICE VISIT Date of Service: 11/08/24 MR#: [id number] Acct: [id number] Name: BRIGETTE HOLGUIN Rep #: [id number] : 1950 Provider: ANABEL palmer Age/Sex: 74/M Location: [facility] Status: Signed HPI HPI History of Present Illness Details: Mr. Holguin is a 73-year-old white male, who presents today for outpatient cardiovascular followup. As you know, he has a history of hypertension, hypercholesterolemia, paroxysmal atrial fibrillation, coronary artery disease status post angioplasty and drug-eluting stenting to the LAD at [facility] on 07/23/13. At that time he received a 3.0X 20 Promus element stent. The patient had a known tiny 1.5-2 mm in diameter diagonal #1 branch was is diffusely diseased since catheterization in 2006. He has never had a balloon angioplasty of that vessel. He returned on 08/21/16 with recurrent chest pain and then underwent a stress test which suggested possible anterior ischemia. We repeated his catheterization which demonstrated nonobstructive disease of his RCA and left circumflex, widely patent stent of his LAD but loss of that tiny little diagonal branch. No intervention was attempted. Patient was subsequently sent home on medical management. He had been placed on a beta-elza. 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 He denies chest, arm, jaw, or neck discomfort. He denies palpitations. He denies bilateral lower extremity edema. He denies claudication. He states shortness of breath with activity and at rest that he attributes to asthma/emphysema. He denies orthopnea or PND. He denies chronic cough. He denies significant, sudden weight gain. He denies lightheadedness, dizziness, near-syncope, or syncope. He denies blood in urine, blood in stool, or epistaxis. He denies fever or chills. He denies myalgia. He states fatigue. His exercise level has remained stable via work which requires walking. Intake Vital Signs 05/05/24 14:04 11/08/24 10:40 11/08/24 10:42 Height 5 ft 9 in 5 ft 9 in 5 ft 9 in Weight: 171 lb 176 lb BMI 25.2 25.9 BP 166/81 H 125/82 H Blood Pressure Location Lt brachial Lt brachial Position Sitting Sitting Respiration 16 18 Pulse 60 70 Pulse Source NIBP Monitor Pulse Oximetry (%) 99 Intake Visit Reasons: 6 M FU/ See Jazlyn @ 11 Barrel Cutter Required: No Is patient in pain?: No Allergies Sulfa (Sulfonamide Antibiotics) Allergy (Mild, Verified 04/06/24 12:37) Rash clopidogrel (From Plavix) Adverse Reaction (Severe, Verified 04/06/24 12:37) Other - genetic nonresponder, needs brillinta oxybutynin Adverse Reaction (Severe, Verified 04/06/24 12:37) short of breath, very dry mouth metoprolol (From Lopressor) Adverse Reaction (Mild, Verified 04/06/24 12:37) - bronchospasm nystatin Adverse Reaction (Unknown, Verified 04/06/24 12:37) Unknown adhesive tape Adverse Reaction (Verified 04/06/24 12:37) Itching Medications ???Medication ???Instructions ???Recorded ???Confirmed ???Type albuterol sulfate 90 mcg/actuation 2 puff inhalation Q4H PRN 11/08/24 Rx aerosol inhaler (Ventolin HFA) shortness of breath or wheezing #18 grams rivaroxaban 20 mg tablet (Xarelto) 20 mg PO DAILY #90 tabs 05/05/24 11/08/24 Rx levothyroxine 25 mcg tablet 25 mcg PO QDAY Filling as 07/07/24 11/08/24 Rx courtesy, pt needs to get from Primary #90 tabs losartan 25 mg tablet 25 mg PO DAILY #90 tabs 07/07/24 0 11/08/24 Rx nitroglycerin 0.4 mg sublingual 0.4 mg sublingual Q5M PRN Chest 11/08/24 Rx tablet Pain #25 tabs cholecalciferol (vitamin D3) 25 25 mcg PO QDAY 11/08/24 11/08/24 H istory mcg (1,000 unit) capsule diltiazem HCl 180 mg capsule,24 180 mg PO QAM #30 caps 11/08/24 Rx hr,extended release magnesium gluconate 12.5 mg 1,000 mg PO ONCE 11/08/24 11/08/24 History magnesium (250 mg) tablet rosuvastatin 5 mg tablet (Crestor) 5 mg PO QDAY 11/08/24 11/08/24 H istory vitamin K2 100 mcg capsule 100 mcg PO QDAY 11/08/24 11/08/24 History Have you fallen in the past year?: No Nurse's Note: patient does not know dosages of vit k2 and vit d3 [facility] Medical History Wears glasses Thyroid disease Blood disorder History of echocardiogram History of stress test Hypertension Cardiology follow-up encounter Knee pain with internal derangement determined by x-ray History of CVA (cerebrovascular accident) (08/2012) Chronic kidney disease (CKD) Essential (primary) hypertension B12 deficiency Complex partial seizure Non-s (more content not included)... Normal [facility] Chloride assayOrdered By: Charlotte Grande on 11-08-2024 Chloride [Moles/Vol] 107 mmol/L 98-108 [facility] Comprehensive Metabolic Prof ilon 11-08-2024 Albumin [Mass/Vol] 4.2 g/dL Normal 3.4-4.8 [facility] Comment on above: Performed By: #### L 500.4050, L100.0100, L501.9520, L506.0400, L503.7505 #### [facility] [address] [place], [address] Albumin/Globulin [Mass ratio] 1.7 {ratio} Normal 0.9-2.4 [facility] Comment on above: Performed By: #### L 500.4050, L100.0100, L501.9520, L506.0400, L503.7505 #### [facility] [address] [place], [address] ALK PHOS 78 U/L Normal 40-129 [facility] Comment on above: Performed By: #### L 500.4050, L100.0100, L501.9520, L506.0400, L503.7505 #### [facility] [address] [place], [address] ALT [Catalytic activity/Vol] 16 U/L Normal <=46 [facility] Comment on above: Performed By: #### L 500.4050, L100.0100, L501.9520, L506.0400, L503.7505 #### [facility] [address] [place], [address] AST [Catalytic activity/Vol] 21 U/L Normal <=37 [facility] Comment on above: Performed By: #### L 500.4050, L100.0100, L501.9520, L506.0400, L503.7505 #### [facility] [address] [place], [address] Bilirubin [Mass/Vol] 0.62 mg/dL Normal 0.00-1.30 [facility] Comment on above: Performed By: #### L 500.4050, L100.0100, L501.9520, L506.0400, L503.7505 #### [facility] [address] [place], [address] BUN/CRE 16.9 RATIO Normal 10-20 [facility] Comment on above: Performed By: #### L 500.4050, L100.0100, L501.9520, L506.0400, L503.7505 #### [facility] [address] [place], [address] Calcium [Mass/Vol] 9.9 mg/dL Normal 7.6-11.0 [facility] Comment on above: Performed By: #### L 500.4050, L100.0100, L501.9520, L506.0400, L503.7505 #### [facility] [address] [place], [address] Chloride [Moles/Vol] 107 mmol/L Normal 98-108 [facility] Comment on above: Performed By: #### L 500.4050, L100.0100, L501.9520, L506.0400, L503.7505 #### [facility] [address] [place], [address] CO2 [Moles/Vol] 23.9 mmol/L Normal 21.0-32.0 [facility] Comment on above: Performed By: #### L 500.4050, L100.0100, L501.9520, L506.0400, L503.7505 #### [facility] [address] [place], [address] Creatinine [Mass/Vol] 1.42 mg/dL High 0.70-1.20 [facility] Comment on above: Performed By: #### L 500.4050, L100.0100, L501.9520, L506.0400, L503.7505 #### [facility] [address] [place], [address] GAP 12 Normal 5-15 [facility] Comment on above: Performed By: #### L 500.4050, L100.0100, L501.9520, L506.0400, L503.7505 #### [facility] [address] [place], [address] GFR/1.73 sq M.predicted among non-blacks MDRD (S/P/Bld) [Vol rate/Area] 52 mL/min/{1.73_m2} Low >60 [facility] Comment on above: Result Comment: mL/m in/1.73m2 CKD-EPI Creatinine Equation (2020) Performed By: #### L 500.4050, L100.0100, L501.9520, L506.0400, L503.7505 #### [facility] [address] [place], [address] Globulin (S) [Mass/Vol] 2.4 g/dL Normal 2.2-4.2 [facility] Comment on above: Performed By: #### L 500.4050, L100.0100, L501.9520, L506.0400, L503.7505 #### [facility] [address] [place], [address] Glucose [Mass/Vol] 95 mg/dL Normal 70-99 [facility] Comment on above: Performed By: #### L 500.4050, L100.0100, L501.9520, L506.0400, L503.7505 #### [facility] [address] [place], [address] Potassium [Moles/Vol] 4.4 mmol/L Normal 3.3-5.1 [facility] Comment on above: Performed By: #### L 500.4050, L100.0100, L501.9520, L506.0400, L503.7505 #### [facility] [address] [place], [address] Sodium [Moles/Vol] 143 mmol/L Normal 133-145 [facility] Comment on above: Performed By: #### L 500.4050, L100.0100, L501.9520, L506.0400, L503.7505 #### [facility] [address] [place], [address] T PROT 6.6 g/dL Normal 5.9-8.4 [facility] Comment on above: Performed By: #### L 500.4050, L100.0100, L501.9520, L506.0400, L503.7505 #### [facility] [address] [place], [address] Urea nitrogen [Mass/Vol] 24 mg/dL High 4-19 [facility] Comment on above: Performed By: #### L 500.4050, L100.0100, L501.9520, L506.0400, L503.7505 #### [facility] [address] [place], [place], [id number] Eosinophil percentageOrdered By: Jairo Grande on 11-08-2024 Eosinophils/100 WBC (Bld) 0.3 % 0-5 [facility] Erythrocyte distribution wid th (RBC) [Ratio]Ordered By: Jairo Grande on 11-08-2024 Erythrocyte distribution width (RBC) [Entitic vol] 47.5 fL High 35.1-43.9 [facility] Erythrocyte distribution wid th ratioOrdered By: Jairo Grande on 11-08-2024 Erythrocyte distribution width (RBC) [Ratio] 14.0 % 11.6-14.6 [facility] Erythrocyte distribution wid th standard deviationOrdered By: Jairo Grande on 11-08-2024 Erythrocyte distribution width (RBC) [Ratio] 47.5 fl High 35.1-43.9 [facility] GFR/1.73 sq M.predicted brigitte g non-blacks MDRD (S/P/Bld) [Vol rate/Area]Ordered By: Jairo Grande on 11-08-2024 Estimated GFR (MDRD) Non-Af Amer 52 Low >60 [facility] Comment on above: mL/min/1.73m2 CKD-EP I Creatinine Equation (2020) Glomerular filtration rate ( GFR) estimation/1.73 sq m using serum, plasma, or whole bOrdered By: Jairo Grande on 11-08-2024 GFR/1.73 sq M.predicted among non-blacks MDRD (S/P/Bld) [Vol rate/Area] 52 mL/min/{1.73_m2} Low >60 [facility] Comment on above: mL/min/1.73m2 CKD-EP I Creatinine Equation (2020) Hematocrit Auto (Bld) [Volum e fraction]Ordered By: Jairo Grande on 11-08-2024 Hematocrit (Bld) [Volume fraction] 39.5 % Low 40-54 [facility] Hemoglobin measurementOrdere d By: Jairo Grande on 11-08-2024 Hemoglobin (Bld) [Mass/Vol] 13.3 g/dL 13.0-16.5 [facility] Immature granulocytes/100 WB C Auto (Bld)Ordered By: Jairo Grande on 11-08-2024 Immature granulocytes/100 WBC (Bld) 0.300 % 0.0-0.9 [facility] Comment on above: IG% - Immature Granu locytes (promyelocytes, myelocytes and metamyelocytes) > 1% indicates that a LEFT SHIFT is Present. L503.7505on 11-08-2024 Natriuretic peptide B (Bld) [Mass/Vol] 487 pg/mL Normal <=900 [facility] Comment on above: Result Comment: Hear t Failure Unlikely: < 300 pg/mL Heart Failure Likely < 50 Years: > 450 pg/mL 50-75 Years: > 900 pg/mL >75 Years: > 1800 pg/mL Performed By: #### L 500.4050, L100.0100, L501.9520, L506.0400, L503.7505 #### [facility] [address], [place], [address] Laboratory - Chemistry and C hemistry - challengeOrdered By: Jairo Grande on 11-08-2024 AST [Catalytic activity/Vol] 21 U/L <38 [facility] Lymphocytes Auto (Unsp spec) [#/Vol]Ordered By: Jairo Grande on 11-08-2024 Lymphocytes (Bld) [#/Vol] 1.69 10*3/uL 0.83-4.51 [facility] Lymphocytes/100 WBC Auto (Un sp spec)Ordered By: Jairo Grande on 11-08-2024 Lymphocytes/100 WBC (Bld) 25.1 % 19-41 [facility] MCV (mean corpuscular volume ) determinationOrdered By: Jairo Grande on 11-08-2024 MCV (RBC) [Entitic vol] 92.5 fL 80-94 [facility] Mean corpuscular hemoglobin (MCH) determinationOrdered By: Jairo Grande on 11-08-2024 MCH (RBC) [Entitic mass] 31.1 pg 27.0-32.0 [facility] Mean corpuscular hemoglobin concentration (MCHC) determinationOrdered By: Jairo Grande on 11-08-2024 MCHC (RBC) [Mass/Vol] 33.7 g/dL 32-36 [facility] Mean platelet volume determi nationOrdered By: aJiro Grande on 11-08-2024 Platelet mean volume (Bld) [Entitic vol] 9.8 fL 6.2-12.0 [facility] Monocyte percentageOrdered B y: Jairo Grande on 11-08-2024 Monocytes/100 WBC (Bld) 9.6 % 0-10 [facility] Natriuretic peptide.B prohor man N-Terminal [Mass/Vol]Ordered By: Jairo Grande on 11-08-2024 Natriuretic peptide B (Bld) [Mass/Vol] 487 pg/mL <900 [facility] Comment on above: Heart Failure Unlike ly: < 300 pg/mLHeart Failure Likely< 50 Years: > 450 pg/mL50-75 Years: > 900 pg/mL>75 Years: > 1800 pg/mL Natriuretic peptide.B prohor man N-Terminal [Mass/volume] in Serum or PlasmaOrdered By: Jairo Grande on 11-08-2024 Natriuretic peptide.B prohormone N-Terminal [Mass/Vol] 487 pg/mL <900 [facility] Comment on above: Heart Failure Unlike ly: < 300 pg/mLHeart Failure Likely< 50 Years: > 450 pg/mL50-75 Years: > 900 pg/mL>75 Years: > 1800 pg/mL Neutrophil percentageOrdered By: Jairo Grande on 11-08-2024 Neutrophils/100 WBC (Bld) 64.1 % 47-70 [facility] Nucleated red blood cell per centageOrdered By: Jairo Grande on 11-08-2024 Nucleated RBC/100 WBC (Bld) [Ratio] 0 % 0-5 [facility] Pacemaker Checkon 11-08-2024 Pacemaker Check [facility] [address] [place] [address] Pacemaker Check Date of Service: 11/08/24 1538 MR#: [id number] Acct: [id number] Name: BRIGETTE HOLGUIN Rep #: [id number] : 1950 From: Argenis Mcgee Age/Sex: 74/M Location: [facility] Status: Signed Billing Codes PM Device Codes: 38288 PM Dev Prog Eval, Dual Assessment and Plan Assessment and Plan (1) Sick sinus syndrome: Status: Chronic (2) Skrco-Jpculceqa-Jbiur (WPW) syndrome: Status: Chronic (3) Sinus bradycardia: Status: Chronic (4) History of permanent cardiac pacemaker placement: Status: Acute Comment: 06/2023 Plan Details Goals Barriers: Goals Decrease pain Decrease inflammation Improve ROM Barriers cervical disc herniation previous lumbar surgery 11/08/24 1539 Date Argenis Pulido Signature: Date (if applicable) CC: Normal [facility] Platelet countOrdered By: Charlotte Grande on 11-08-2024 Platelets (Bld) [#/Vol] 229 10*3/uL 150-450 [facility] Potassium (Unsp spec) [Mass/ Vol]Ordered By: Jairo Grande on 11-08-2024 Potassium [Moles/Vol] 4.4 mmol/L 3.3-5.1 [facility] Potassium measurement (mass/ volume)Ordered By: Jairo Grande on 11-08-2024 Potassium (Unsp spec) [Mass/Vol] 4.4 mmol/L 3.3-5.1 [facility] RBC Auto (Bld) [#/Vol]Ordere d By: Jairo Grande on 11-08-2024 RBC (Bld) [#/Vol] 4.27 10*6/uL Low 4.6-6.2 [facility] Serum creatinine measurement (mass/volume)Ordered By: Jairo Grande on 11-08-2024 Creatinine [Mass/Vol] 1.42 mg/dL High 0.70-1.20 [facility] Serum globulin measurementOr dered By: Jairo Grande on 11-08-2024 Globulin (S) [Mass/Vol] 2.4 g/dL 2.2-4.2 [facility] Serum glucose measurement (m ass/volume)Ordered By: Jairo Grande on 11-08-2024 Glucose [Mass/Vol] 95 mg/dL 70-99 [facility] Serum or plasma alanine chavez otransferase (ALT) measurementOrdered By: Jairo Grande on 11-08-2024 ALT [Catalytic activity/Vol] 16 U/L <47 [facility] Serum or plasma albumin mg urement (mass/volume)Ordered By: Jairo Grande on 11-08-2024 Albumin [Mass/Vol] 4.2 g/dL 3.4-4.8 [facility] Serum or plasma albumin/glob ulin mass ratioOrdered By: Jairo Grande on 11-08-2024 Albumin/Globulin [Mass ratio] 1.7 {ratio} 0.9-2.4 [facility] Serum or plasma alkaline lynn sphatase measurementOrdered By: Jairo Grande on 11-08-2024 ALP [Catalytic activity/Vol] 78 U/L 40-129 [facility] Serum or plasma calcium gm urement (mass/volume)Ordered By: Jairo Grande on 11-08-2024 Calcium [Mass/Vol] 9.9 mg/dL 7.6-11.0 [facility] Serum or plasma urea nitroge n measurement (mass/volume)Ordered By: Jairo Grande on 11-08-2024 Urea nitrogen [Mass/Vol] 24 mg/dL High 4-19 [facility] Sodium levelOrdered By: Jairo Grande on 11-08-2024 Sodium [Moles/Vol] 143 mmol/L 133-145 [facility] T4 Free Directon 11-08-2024 T4 FREE DIRECT 1.50 ng/dL High 0.76-1.46 [facility] Comment on above: Performed By: #### L 500.4050, L100.0100, L501.9520, L506.0400, L503.7505 #### [facility] [address] [place], [address] T4 freeOrdered By: Jairo Grande on 11-08-2024 Free T4 [Mass/Vol] 1.50 ng/dL High 0.76-1.46 [facility] TSH DL <= 0.005 mIU/L QnOrde red By: Jairo Grande on 11-08-2024 Thyroid Stimulating Hormone (TSH) 2.540 uIU/mL 0.300-4.200 [facility] TSH Qn 2.540 uIU/mL 0.300-4.200 [facility] Thyroid Stim Hormone (TSH)on 11-08-2024 TSH 2.540 uIU/mL Normal 0.300-4.200 [facility] Comment on above: Performed By: #### L 500.4050, L100.0100, L501.9520, L506.0400, L503.7505 #### [facility] [address] [place], [address] Total proteinOrdered By: Suman Grande on 11-08-2024 Protein [Mass/Vol] 6.6 g/dL 5.9-8.4 [facility] White blood cell (WBC) count Ordered By: Jairo Grande on 11-08-2024 WBC (Bld) [#/Vol] 6.7 10*3/uL 4.4-11.0 [facility] Bone density reportOrdered B y: José Mcfadden on 10-21-2024 Study report Skeletal system DXA [facility] [address] [place], [place] [address] Dexa Bone Density Study MR#: [id number] Acct: [id number] Name: BRIGETTE HOLGUIN Rep #: [id number] : 1950 M 74 From: Cheo Mcfadden MD PCP: Dr. Paresh Carranza MD Status: REG C Study:Dexa Bone Density Study Date of Exam: 10/21/24 Exam# [id number] Ordering Dr: Paresh Carranza MD PROCEDURE: DEXA BONE DENSITY STUDY 10/21/2024 REASON FOR EXAM: M, age 74 y/o . Postmenopausal. TECHNIQUE: DXA scan of the lumbar spine both hips. REFERENCE LINKS: ISCD Adult Positions COMPARISON: None FINDINGS: Lumbar Spine (L1-L4): g/cm2 (0.921)/T-score (-1.5)/Z-score (-0.5) findings are suggestive of osteopenia with a low fracture risk. Left Femur Total: g/cm2 (0.896)/T-score (-0.9)/Z-score (-0.1) Left Femoral Neck: g/cm2 (0.657)/T-score (-2.0)/Z-score (-0.7) Right Femur Total: g/cm2 (0.857)/T-score (-1.2)/Z-score (-0.4) Right Femoral Neck: g/cm2 (0.653)/T-score (-2.0)/Z-score (-0.7) BD/Dexa Bone Density Study IMPRESSION: The patient is considered osteopenic as outlined below according to World Bert Organization (WHO) criteria with a moderate fracture risk. Reading Location: [place] [address] CC: Dr. Paresh Carranza MD ~ Project Assistant: Signed [facility] Dexa Bone Density Studyon Dexa Bone Density Study [facility] [address] [place] [address] [id number] Dexa Bone Density Study MR#: [id number] Acct: [id number] Name: BRIGETTE HOLGUIN Rep #: [id number] : 1950 M 74 From: José benites MD PCP: Dr. Paresh Carranza MD Status: [facility] Study: Dexa Bone Density Study Date of Exam: 10/21/24 Exam# [id number] Ordering Dr: Paresh Carranza MD PROCEDURE: DEXA BONE DENSITY STUDY 10/21/2024 REASON FOR EXAM: M, age 74 y/o . Postmenopausal. TECHNIQUE: DXA scan of the lumbar spine both hips. REFERENCE LINKS: ISCD Adult Positions COMPARISON: None FINDINGS: Lumbar Spine (L1-L4): g/cm2 (0.921)/T-score (-1.5)/Z-score (-0.5) findings are suggestive of osteopenia with a low fracture risk. Left Femur Total: g/cm2 (0.896)/T-score (-0.9)/Z-score (-0.1) Left Femoral Neck: g/cm2 (0.657)/T-score (-2.0)/Z-score (-0.7) Right Femur Total: g/cm2 (0.857)/T-score (-1.2)/Z-score (-0.4) Right Femoral Neck: g/cm2 (0.653)/T-score (-2.0)/Z-score (-0.7) BD/Dexa Bone Density Study IMPRESSION: The patient is considered osteopenic as outlined below according to World Bert Organization (WHO) criteria with a moderate fracture risk. Reading Location: [facility] CC: Dr. Paresh Carranza MD Project Assistant: Signed Normal [facility] XR CHEST PA+LAT 2 VIEWSon XR CHEST PA+LAT 2 VIEWS EXAMINATION: XR CHEST PA+LAT 2 VIEWSPRO/11/25/2023 11:29 AM CLINICAL HISTORY: Dyspnea ASSOCIATED DIAGNOSIS: Dyspnea, unspecified type ORDERING PROVIDER: [employer] NOTE: COMPARISON: None FINDINGS: Cardiac device: Right chest implanted dual-chamber permanent cardiac pacemaker with its leads terminating overlying the regions of the right atrial appendage and right ventricle. Cardiomediastinal silhouette: Normal heart size and coronary artery endovascular stent. Trachea: Midline. Lungs and pleura: No pulmonary consolidation, pleural effusion or pneumothorax. Osseous structures: Partial visualization of a reverse right shoulder arthroplasty and osteophytic endplate spurring and bridging of multiple thoracic vertebra. IMPRESSION: 1. No acute cardiopulmonary findings. 2. Dual-chamber permanent cardiac pacemaker. 3. Coronary artery endovascular stent. MACRO: None Normal [employer] XR Chest PA and Lateralon EXAMINATION: XR CHES T PA+LAT 2 VIEWSPRO/FY 11/25/2023 11:29 AM CLINICAL HISTORY: Dyspnea ASSOCIATED DIAGNOSIS: Dyspnea, unspecified type ORDERING PROVIDER: GLADYS HAN TECHNNAYE NOTE: COMPARISON: None FINDINGS: Cardiac device: Right chest implanted dual-chamber permanent cardiac pacemaker with its leads terminating overlying the regions of the right atrial appendage and right ventricle. Cardiomediastinal silhouette: Normal heart size and coronary artery endovascular stent. Trachea: Midline. Lungs and pleura: No pulmonary consolidation, pleural effusion or pneumothorax. Osseous structures: Partial visualization of a reverse right shoulder arthroplasty and osteophytic endplate spurring and bridging of multiple thoracic vertebra. IMPRESSION: 1. No acute cardiopulmonary findings. 2. Dual-chamber permanent cardiac pacemaker. 3. Coronary artery endovascular stent. MACRO: None RADIOLOGY Rashad Alvarez, DO - 11/25/2023 EXAMINATION: XR CHEST PA+LAT 2 VIEWS/11/25/2023 11:29 AM CLINICAL HISTORY: Dyspnea ASSOCIATED DIAGNOSIS: Dyspnea, unspecified type ORDERING PROVIDER: [employer] NOTE: COMPARISON: None FINDINGS: Cardiac device: Right chest implanted dual-chamber permanent cardiac pacemaker with its leads terminating overlying the regions of the right atrial appendage and right ventricle. Cardiomediastinal silhouette: Normal heart size and coronary artery endovascular stent. Trachea: Midline. Lungs and pleura: No pulmonary consolidation, pleural effusion or pneumothorax. Osseous structures: Partial visualization of a reverse right shoulder arthroplasty and osteophytic endplate spurring and bridging of multiple thoracic vertebra. IMPRESSION: 1. No acute cardiopulmonary findings. 2. Dual-chamber permanent cardiac pacemaker. 3. Coronary artery endovascular stent. MACRO: None [facility] Radiology Study observation (narrative) [facility] XR Chest PA and LateralOrder ed By: Rashad Alvarez on 11-25-2023 [facility] Work Phone: Basophil percentageOrdered B y: Paresh Carranza on 11-20-2023 Bilirubin [Mass/Vol] 0.90 mg/dL 0.20-1.00 [facility] Comment on above: For patients on eltr ombopag therapy, use of Dimension [place] TBIL is not recommended. Chloride [Moles/Vol] 110 mmol/L 98-107 [facility] Cholesterol [Mass/Vol] 180 mg/dL <200 [facility] Comment on above: <200 mg/dL Desirable 200-240 mg/dL Borderline >240 mg/dL High Risk Glucose [Mass/Vol] 95 mg/dL 74-106 [facility] Potassium [Moles/Vol] 4.4 mmol/L 3.5-5.1 [facility] Protein [Mass/Vol] 6.5 g/dL 6.4-8.2 [facility] Sodium [Moles/Vol] 140 mmol/L 136-145 [facility] Triglyceride [Mass/Vol] 84 mg/dL <199 [facility] Comment on above: The drugs N-Acetylcy steine and Metamizole may falsely depress this assay.Serum Triglycerides Reference Interval Normal <150 mg/dL Borderline high 150 - 199 mg/dL High 200 - 499 mg/dL Very High > or = 500 mg/dL Laboratory - Chemistry and C hemistry - challengeOrdered By: Paresh Carranza on 11-20-2023 Albumin/Globulin [Mass ratio] 1.3 {ratio} 0.9-2.4 [facility] ALP [Catalytic activity/Vol] 84 U/L 45-117 [facility] ALT [Catalytic activity/Vol] 17 U/L 16-61 [facility] Cholesterol in HDL [Mass/Vol] 53 mg/dL >40 [facility] Comment on above: The drugs N-Acetylcy steine and Metamizole may falsely depress this assay. Reference Range HDL <40 mg/dL Low HDL Cholesterol HDL >or= 60 mg/dL High HDL Cholesterol Cholesterol in LDL [Mass/Vol] 110 mg/dL 0-130 [facility] CO2 [Moles/Vol] 27.0 mmol/L 21.0-32.0 [facility] Globulin (S) [Mass/Vol] 2.8 g/dL 2.2-4.2 [facility] Urea nitrogen/Creatinine [Mass ratio] 21.9 mg/mg 10-20 [facility] No Panel InformationOrdered By: Paresh Carranza on 11-20-2023 Estimated GFR (MDRD) Amer 71 mL/min >60 [facility] Comment on above: GFR Calc Estimated GFR (MDRD) Non-Af Amer 59 mL/min >60 [facility] Comment on above: Non- GFR Calc Free Triiodothyronine (T3) pg/dL 2.5 pg/mL 2.18-3.98 [facility] VLDL Cholesterol 17 mg/dL 5-40 [facility] Serum or plasma calcium gm urement (mass/volume)Ordered By: Paresh Carranza on 11-20-2023 Calcium [Mass/Vol] 9.1 mg/dL 8.5-10.1 [facility] Serum or plasma creatinine m easurement (mass/volume)Ordered By: Paresh Carranza on 11-20-2023 Creatinine [Mass/Vol] 1.28 mg/dL 0.70-1.30 [facility] Comment on above: The validity of the calculated GFR & GFRAA in patients over 70 years has not been determined. Clinical correlation is essential. Serum or plasma thyroid stim ulating hormone (TSH) measurement (units/volume)Ordered By: Paresh Carranza on 11-20-2023 TSH Qn 4.42 uIU/mL 0.358-3.74 [facility] Serum or plasma urea nitroge n measurement (mass/volume)Ordered By: Paresh Carranza on 11-20-2023 Urea nitrogen [Mass/Vol] 28 mg/dL 7-18 [facility] Thin prep Papanicolaou smear with manual screeningOrdered By: Paresh Carranza on 11-20-2023 Thin prep Papanicolaou smear with manual screening 3.7 g/dL 3.2-5.0 [facility] Thin prep Papanicolaou smear with manual screening 18 U/L 15-37 [facility] Thin prep Papanicolaou smear with manual screening 3 5-15 [facility] Thin prep Papanicolaou smear with manual screening 1.07 ng/dL 0.76-1.46 [facility] Absolute lymphocyte countOrd ered By: Kerry Hilliard on 09-15-2023 Lymphocytes Auto (Unsp spec) [#/Vol] 1.48 10*3/uL 0.83-4.51 [facility] Automated lymphocyte count a s percentage of total leukocytesOrdered By: Kerry Hilliard on 09-15-2023 Lymphocytes/100 WBC Auto (Unsp spec) 25.4 % 19-41 [facility] Basophil percentageOrdered B y: Kerry Hilliard on 09-15-2023 Basophils/100 WBC (Bld) 0.9 % 0-1 [facility] Bilirubin [Mass/Vol] 0.60 mg/dL 0.20-1.00 [facility] Comment on above: For patients on eltr ombopag therapy, use of Dimension [place] TBIL is not recommended. Chloride [Moles/Vol] 112 mmol/L 98-107 [facility] Eosinophils/100 WBC (Bld) 1.0 % 0-5 [facility] Glucose [Mass/Vol] 91 mg/dL 74-106 [facility] Hemoglobin (Bld) [Mass/Vol] 13.5 g/dL 13.0-16.5 [facility] Monocytes/100 WBC (Bld) 11.9 % 0-10 [facility] Neutrophils (Bld) [#/Vol] 3.5 10*3/uL 2.0-7.7 [facility] Neutrophils/100 WBC (Bld) 60.6 % 47-70 [facility] Potassium [Moles/Vol] 4.3 mmol/L 3.5-5.1 [facility] Protein [Mass/Vol] 6.6 g/dL 6.4-8.2 [facility] Sodium [Moles/Vol] 144 mmol/L 136-145 [facility] WBC (Bld) [#/Vol] 5.8 10*3/uL 4.4-11.0 [facility] Determination of erythrocyte mean corpuscular volume (MCV)Ordered By: Kerry Hilliard on 09-15-2023 MCV (RBC) [Entitic vol] 91.6 fL 80-94 [facility] Erythrocyte distribution wid th ratioOrdered By: Kerry Hilliard on 09-15-2023 Erythrocyte distribution width (RBC) [Ratio] 13.5 % 11.6-14.6 [facility] Erythrocyte distribution wid th standard deviationOrdered By: Kerry Hilliard on 09-15-2023 Erythrocyte distribution width (RBC) [Entitic vol] 45.5 fL 35.1-43.9 [facility] Hematocrit Auto (Bld) [Volum e fraction]Ordered By: Kerry Hilliard on 09-15-2023 Hematocrit (Bld) [Volume fraction] 41.5 % 40-54 [facility] Immature granulocytes/100 WB C Auto (Bld)Ordered By: Kerry Hilliard on 09-15-2023 Immature granulocytes/100 WBC (Bld) 0.200 % 0.0-0.9 [facility] Comment on above: IG% - Immature Granu locytes (promyelocytes, myelocytes and metamyelocytes) > 1% indicates that a LEFT SHIFT is Present. Laboratory - Chemistry and C hemistry - challengeOrdered By: Kerry Hilliard on 09-15-2023 Albumin/Globulin [Mass ratio] 1.3 {ratio} 0.9-2.4 [facility] ALP [Catalytic activity/Vol] 84 U/L 45-117 [facility] ALT [Catalytic activity/Vol] 23 U/L 16-61 [facility] CO2 [Moles/Vol] 28.0 mmol/L 21.0-32.0 [facility] Globulin (S) [Mass/Vol] 2.9 g/dL 2.2-4.2 [facility] Natriuretic peptide B (Bld) [Mass/Vol] 27.3 pg/mL 0-100 [facility] Urea nitrogen/Creatinine [Mass ratio] 26.7 mg/mg 10-20 [facility] Laboratory - Hematology and Cell countsOrdered By: Kerry Hilliard on 09-15-2023 MCH (RBC) [Entitic mass] 29.8 pg 27.0-32.0 [facility] MCHC (RBC) [Mass/Vol] 32.5 g/dL 32-36 [facility] Nucleated RBC/100 WBC (Bld) [Ratio] 0 % 0-5 [facility] Platelet mean volume (Bld) [Entitic vol] 9.8 fL 6.2-12.0 [facility] Platelets (Bld) [#/Vol] 245 10*3/uL 150-450 [facility] No Panel InformationOrdered By: Kerry Hilliard on 09-15-2023 Estimated GFR (MDRD) Amer 69 mL/min >60 [facility] Comment on above: GFR Calc Estimated GFR (MDRD) Non-Af Amer 57 mL/min >60 [facility] Comment on above: Non- GFR Calc RBC Auto (Bld) [#/Vol]Ordere d By: Kerry Hilliard on 09-15-2023 RBC (Bld) [#/Vol] 4.53 10*6/uL 4.6-6.2 [facility] Serum or plasma calcium gm urement (mass/volume)Ordered By: Kerry Hilliard on 09-15-2023 Calcium [Mass/Vol] 9.1 mg/dL 8.5-10.1 [facility] Serum or plasma creatinine m easurement (mass/volume)Ordered By: Kerry Hilliard on 09-15-2023 Creatinine [Mass/Vol] 1.31 mg/dL 0.70-1.30 [facility] Comment on above: The validity of the calculated GFR & GFRAA in patients over 70 years has not been determined. Clinical correlation is essential. Serum or plasma urea nitroge n measurement (mass/volume)Ordered By: Kerry Hilliard on 09-15-2023 Urea nitrogen [Mass/Vol] 35 mg/dL 7-18 [facility] Thin prep Papanicolaou smear with manual screeningOrdered By: Kerry Hilliard on 09-15-2023 Thin prep Papanicolaou smear with manual screening 3.7 g/dL 3.2-5.0 [facility] Thin prep Papanicolaou smear with manual screening 15 U/L 15-37 [facility] Thin prep Papanicolaou smear with manual screening 4 5-15 [facility] ANES POSTPROC EVALon 023 ANES POSTPROC EVAL HNO ID: [id number] Author: Alan Patel MD Service: Anesthesiology Author Type: Anesthesiologist Type: Anesthesia Postprocedure Evaluation Filed: 06/20/2023 10:18 AM Note Text: POST ANESTHESIA EVALUATION NOTE : 1950 Procedure Summary Date: 06/19/23 Room / Location: [facility] 01 / [place] [facility] Anesthesia Start: 0836 Anesthesia Stop: 1341 Procedure: REMOVAL ELECTRODE(S) IMPLANTABLE DEFIBRILLATOR TRANSVENOUS EXTRACTION (Right) Diagnosis: Pacemaker lead malfunction, initial encounter (Pacemaker lead malfunction, initial encounter [T82.110A]) Surgeons: Viktoriya Marcial MD Responsible Provider: Alan Patel MD Anesthesia Type: general ASA Status: 3 Anesthesia Type: general Airway Type: ETT Last Vitals Vitals Value Taken Time BP 111/60 06/20/23 1000 Temp 36.9 ?C (98.4 ?F) 06/20/23 0400 Pulse 60 06/20/23 1015 Resp 14 06/20/23 1014 SpO2 97 % 06/20/23 1015 Vitals shown include unvalidated device data. Post Anesthesia Patient Status Patient Evaluation: bedside. Anticipated Disposition: ICU planned admission. Neurological Status: sleepy but arousable. Pulmonary Status: breathing comfortably on supplemental oxygen Airway Control: returned to baseline unsupported. Cardiovascular Status: stable. Pain Management: clinically adequate - multimodal analgesia pain management approach Postoperative Hydration: acceptable. Intraoperative Events: no significant anesthesia events Post Operative Nausea/Vomiting Status: no significant post operative nausea or vomiting Recommendation: continue current plan of care. Anesthesia Observations No Documentation SIGNATURE: Alan Patel MD PATIENT NAME: Brigette Holguin DATE: June 20, 2023 TIME: 10:16 AM CSN: [id number] Normal [facility] Basic metabolic 2000 panelon 06-20-2023 Anion gap [Moles/Vol] 8 mmol/L Low 9-18 [facility] Comment on above: Order Comment: Speci men Type: BLOOD SPECIMEN Ordering Facility: [facility] Address: [address] [place] [address] Performed By: #### 2 4321-2 #### [facility] CLIA [id number] [address] [place] Calcium [Mass/Vol] 9.1 mg/dL Normal 8.5-10.2 [facility] Comment on above: Order Comment: Speci men Type: BLOOD SPECIMEN Ordering Facility: [facility] Address: [address] [place] [address] Performed By: #### 2 4321-2 #### [facility] CLIA [id number] 1 [place] [address] [place] Chloride [Moles/Vol] 103 mmol/L Normal 97-105 [facility] Comment on above: Order Comment: Speci men Type: BLOOD SPECIMEN Ordering Facility: [facility] Address: [address] [place] [address] Performed By: #### 2 4321-2 #### [facility] CLIA [id number] 1 [place] [address] [place] CO2 [Moles/Vol] 27 mmol/L Normal 22-30 [facility] Comment on above: Order Comment: Speci men Type: BLOOD SPECIMEN Ordering Facility: [facility] Address: [address] [place] [address] Performed By: #### 2 4321-2 #### [facility] CLIA [id number] [address] [place] [address] [place] Creatinine [Mass/Vol] 1.43 mg/dL High 0.73-1.22 [facility] Comment on above: Order Comment: Carie lowe Type: BLOOD SPECIMEN Ordering Facility: [facility] Address: [place] [address] Performed By: #### 2 4321-2 #### [facility] CLIA [id number] [address] OF [facility] Creatinine and Glomerular filtration rate.predicted panel (S/P/Bld) 52 mL/min/1.73m??? Low >=60 [facility] Comment on above: Order Comment: Carie lowe Type: BLOOD SPECIMEN Ordering Facility: [facility] Address: [address] [place] [address] Result Comment: Danay mated Glomerular Filtration Rate (eGFR) is calculated using the 2020 CKD-EPI creatinine equation. This equation utilizes serum creatinine, sex, and age as parameters. The creatinine assay has traceable calibration to isotope dilution-mass spectrometry. Refer to KDIGO guidelines for clinical interpretation. In patients with unstable renal function, e.g. those with acute kidney injury, the eGFR may not accurately reflect actual GFR. Performed By: #### 2 4321-2 #### [facility] CLIA [id number] [address] [place] [address] [place] Glucose [Mass/Vol] 102 mg/dL High 74-99 [facility] Comment on above: Order Comment: Carie chrissy Type: BLOOD SPECIMEN Ordering Facility: [facility] Address: [address] [place] [address] Result Comment: The [place] [employer] (ADA) provides guidance for cutoff values for fasting glucose and random glucose. The ADA defines fasting as no caloric intake for at least 8 hours. Fasting plasma glucose results between 100 to 125 mg/dL indicate increased risk for diabetes (prediabetes). Fasting plasma glucose results greater than or equal to 126 mg/dL meet the criteria for diagnosis of diabetes. In the absence of unequivocal hyperglycemia, results should be confirmed by repeat testing. In a patient with classic symptoms of hyperglycemia or hyperglycemic crisis, random plasma glucose results greater than or equal to 200 mg/dL meet the criteria for diagnosis of diabetes. Reference: Standards of Medical Care in Diabetes 2016, [place] [employer]. Diabetes Care. 2016.39(Suppl 1). Performed By: #### 2 4321-2 #### [facility] CLIA [id number] [address] [place] Potassium [Moles/Vol] 4.3 mmol/L Normal 3.7-5.1 [facility] Comment on above: Order Comment: Speci men Type: BLOOD SPECIMEN Ordering Facility: [facility] Address: [address] [place] [address] Performed By: #### 2 4321-2 #### [facility] CLIA [id number] [address] [place] Sodium [Moles/Vol] 138 mmol/L Normal 136-144 [facility] Comment on above: Order Comment: Speci men Type: BLOOD SPECIMEN Ordering Facility: [facility] Address: [address] [place] [address] Performed By: #### 2 4321-2 #### [facility] CLIA [id number] [address] STATES OF [facility] Urea nitrogen [Mass/Vol] 23 mg/dL Normal 9-24 [facility] Comment on above: Order Comment: Speci men Type: BLOOD SPECIMEN Ordering Facility: [facility] Address: [address] [place] [address] Performed By: #### 2 4321-2 #### [facility] CLIA [id number] [address] OF [facility] CBC panel Auto (Bld)on 06-20 Erythrocyte distribution width (RBC) [Ratio] 13.3 % Normal 11.5-15.0 [facility] Comment on above: Order Comment: Speci men Type: BLOOD SPECIMEN Ordering Facility: [facility] Address: [address] [place] [address] Performed By: #### 5 8410-2 #### [facility] CLIA [id number] [address] [place] Hematocrit (Bld) [Volume fraction] 38.7 % Low 39.0-51.0 [facility] Comment on above: Order Comment: Speci men Type: BLOOD SPECIMEN Ordering Facility: [facility] Address: [address] [place] [address] Performed By: #### 5 8410-2 #### [facility] CLIA [id number] [address] Hemoglobin (Bld) [Mass/Vol] 12.8 g/dL Low 13.0-17.0 [facility] Comment on above: Order Comment: Speci men Type: BLOOD SPECIMEN Ordering Facility: [facility] Address: [address] [place] [address] Performed By: #### 5 8410-2 #### [facility] CLIA [id number] [address] MCH (RBC) [Entitic mass] 30.7 pg Normal 26.0-34.0 [facility] Comment on above: Order Comment: Speci men Type: BLOOD SPECIMEN Ordering Facility: [facility] Address: [address] [place] [address] Performed By: #### 5 8410-2 #### [facility] CLIA [id number] [address] MCHC (RBC) [Mass/Vol] 33.1 g/dL Normal 30.5-36.0 [facility] Comment on above: Order Comment: Speci men Type: BLOOD SPECIMEN Ordering Facility: [facility] Address: [address] [place] [address] Performed By: #### 5 8410-2 #### [facility] CLIA [id number] [address] STATES [facility] MCV (RBC) [Entitic vol] 92.8 fL Normal 80.0-100.0 [facility] Comment on above: Order Comment: Speci men Type: BLOOD SPECIMEN Ordering Facility: [facility] Address: [address] [place] [address] Performed By: #### 5 8410-2 #### [facility] CLIA [id number] [address] Nucleated RBC (Bld) [#/Vol] 10*3/uL Normal <0.01 [facility] Comment on above: Order Comment: Speci men Type: BLOOD SPECIMEN Ordering Facility: [facility] Address: [address] [place] [address] Performed By: #### 5 8410-2 #### [facility] CLIA [id number] [address] [place] [address] [place] Platelet mean volume (Bld) [Entitic vol] 9.5 fL Normal 9.0-12.7 [facility] Comment on above: Order Comment: Speci men Type: BLOOD SPECIMEN Ordering Facility: [facility] Address: [address] [place] [address] Performed By: #### 5 8410-2 #### [facility] CLIA [id number] [address] [place] Platelets (Bld) [#/Vol] 161 10*3/uL Normal 150-400 [facility] Comment on above: Order Comment: Speci men Type: BLOOD SPECIMEN Ordering Facility: [facility] Address: [address] [place] [address] Performed By: #### 5 8410-2 #### [facility] CLIA [id number] [address] [place] [address] [place] RBC (Bld) [#/Vol] 4.17 10*6/uL Low 4.20-6.00 [facility] Comment on above: Order Comment: Speci men Type: BLOOD SPECIMEN Ordering Facility: [facility] Address: [address] [place] [address] Performed By: #### 5 8410-2 #### [facility] CLIA [id number] 1 [place] [address] [place] WBC (Bld) [#/Vol] 14.01 10*3/uL High 3.70-11.00 [facility] Comment on above: Order Comment: Speci men Type: BLOOD SPECIMEN Ordering Facility: [facility] Address: [address] [place] [address] Performed By: #### 5 8410-2 #### [id number] [address] OF [facility] CNDSon 06-20-2023 CNDS HNO ID: [id number] Author: Jazmine Zepeda APRN.CNP Service: Electrophysiology Author Type: Nurse Practitioner Type: Discharge Summary Filed: 06/20/2023 10:44 AM Note Text: ----- Attestation signed by Viktoriya Marcial MD at 06/20/2023 1:23 PM ----- DISCHARGE SUMMARY PATIENT NAME: Brigette Holguin Code Status: Prior Highest Readmission Risk Score: 10 The 30 day readmissions risk score is derived from an internally validated risk model which evaluates patient level characteristics, utilization history, medication orders and lab results up until the day of discharge. Patients with a score of 40 or above are considered highest risk for readmission. Specific patient level drivers will be listed at the bottom of the summary. Admission Information Admission Information ADMIT DATE: 06/19/2023 DISCHARGE DATE: 06/20/2023 MY DOCTORS AND MEDICAL TEAM: My Main Hospital Doctor: Viktoriya Marcial Primary Care Provider: Paresh Carranza MD My Medical Team Members: Treatment Team: Attending Provider: Viktoriya Marcial MD MY CONDITION AT DISCHARGE: Stable REASON I WAS IN THE HOSPITAL: Extraction of right ventricular lead with reimplantation, with [employer] generator replacement of dual-chamber pacemaker, continued use of chronic right atrial lead, procedure performed by Dr. Marcial 06/19/2023. SUMMARY OF WHAT HAPPENED WHILE I WAS IN THE HOSPITAL: The patient underwent extraction of right ventricular lead with reimplantation, with [employer] generator replacement of dual-chamber pacemaker, continued use of chronic right atrial lead, procedure performed by Dr. Marcial 06/19/2023. There were no intraprocedural complications. The patient recovered in the cardiovascular intensive care unit where he was monitored overnight and discharged home. OTHER PROBLEMS/DIAGNOSIS: Principal Problem: Pacemaker lead malfunction - The patient underwent extraction of right ventricular lead with reimplantation, with [employer] generator replacement of dual-chamber pacemaker, continued use of chronic right atrial lead, procedure performed by Dr. Marcial 06/19/2023. There were no intraprocedural complications. The patient did well overnight, offers no complaints. Telemetry demonstrates sinus rhythm with intermittent atrial paced rhythm, rates 60s-90s. Device check today shows normal function of pacemaker. Chest x-ray demonstrates pacemaker leads and device in appropriate position, no evidence of pneumothorax. He will need a wound check in 1 week, he follows in [place] with Dr. Rooney, and will need a device check in about 6 weeks. Future follow-ups to be made with Dr. Rooney. We reviewed postprocedure instructions, medications and follow-up, patient verbalizes understanding. He is okay to be discharged home, as discussed with Dr. Marcial. Active Problems: Presence of cardiac pacemaker Bradycardia Resolved Problems: * No resolved hospital problems. * OPERATIONS PERFORMED WHILE IN THE HOSPITAL: Extraction of right ventricular lead with reimplantation, with [employer] generator replacement of dual-chamber pacemaker, continued use of chronic right atrial lead, procedure performed by Dr. Marcial 06/19/2023. IMPORTANT TEST/PROCEDURES: Chest x-ray -shows pacemaker leads and device in appropriate position, no evidence of pneumothorax. Device check -shows normal function of pacemaker. Discharge Disposition Discharge Disposition: Home With Self Care Activity When You Leave the Hospital Lifting is restricted to:no more than 8 lbs for 6 [address] arm May drive At least 24 hours after discharge from hospital No baths or showers for one week Do not get right upper chest pacemaker site wet for 1 week, avoid submerging groins, no tub baths for 1 week. No exercise for: six weeks, no lifting over head Right arm No lifting greater than 5-10 pounds for 5-7 days With left arm due to groin access site Diet Instructions Resume your pre-hospital diet For Pain When You Leave the Hospital Apply a covered cold pack to the area every two hours for two days 20 minutes at a time Use acetaminophen (Tylenol) as recommended on the bottle Wound/Surgical Site Care Any bruising and bumps should disappear within 3-4 days Avoid lotions or powders Check your wound every day Right upper chest pacemaker site, right and left groins If the bruising expands or the bump enlarges please call your doctor Some bruising, soreness or a small bump under the skin at the inserion site is normal Call Your Doctor If There is an unusual odor from the wound area There is severe pain at the operative site You have lightheadedness, fainting, or confusion You have persistent or heavy bl (more content not included)... Normal [facility] No Panel Informationon 06-20 BLANK _ [facility] Implant Date 06/19/2023 [facility] PACEMAKER CLINIC CHECKon AMS Fallback Rate (bpm) 70 {beats}/min [facility] AV Delay Adaptive Paced Minimum (ms) 200 ms [facility] AV Delay Adaptive Rate Maximum (bpm) 130 {beats}/min [facility] AV Delay Adaptive Rate Minimum (bpm) 90 {beats}/min [facility] AV Delay Adaptive Sensed Minimum (ms) 180 ms [facility] AV Delay Adaptive Status DISABLED [facility] Battery Voltage (volts) 3.02 V [facility] Leon RA Pacing Amplitude (volts) 2.0 V [facility] Leon RA Pacing Polarity BI [facility] Leon RA Pacing Pulse Width (ms) 0.5 ms [facility] Leon RA Sensing Blanking Period (ms) 150 ms [facility] Leon RA Sensing Polarity BI [facility] Leon RA Sensing Refractory Period (ms) 190 ms [facility] Leon RV Pacing Amplitude (volts) 3.25 V [facility] Leon RV Pacing Polarity BI [facility] Leon RV Pacing Pulse Width (ms) 0.5 ms [facility] Leon RV Sensing Amplitude (mvolts) 2.0 mV [facility] Leon RV Sensing Blanking Period (ms) 44 ms [facility] Leon RV Sensing Polarity BI [facility] Leon RV Sensing Refractory Period (ms) 250 ms [facility] Hysteresis Rate (bpm) Off [facility] Implant Date 01/04/2013 [facility] Lead1 Mfg SJM [facility] Lead2 Mfg SJM [facility] Location RV [facility] Location RA [facility] Lower Rate (bpm) 60 {beats}/min [facility] Max Sensor Rate (bmp) 130 {beats}/min [facility] Model 2272 Assurity MRI [facility] Model 8TC/52 [facility] Model 2087TC Tendril STS O ptim IS [facility] Pacing Mode DDDR [facility] PM-Device Mfg STJ [facility] PM-Percent Pacing (A) 6.1 % [facility] PM-Percent Pacing (V) 0.01 % [facility] PM-PMT Intervention Atrial Pace [facility] PM-PVC Intervention Atrial Pace [facility] PM-Rate Modulation Acceleration Reaction Fast [facility] PM-Rate Modulation Deceleration Medium [facility] PM-Rate Modulation [place] Auto (+0) [facility] PM-Rate Modulation Threshold Auto (+0.0) [facility] Rhythm NSR at 62 BPM. [facility] Serial Number [id number] [facility] Serial Number [id number] [facility] Serial Number [id number] [facility] Thresh RA Capture Amplitude (volts) 0.5 V [facility] Thresh RA Capture Duration (ms) 0.5 ms [facility] Thresh RA Sensing Amplitude (mvolts) 3.4 mV [facility] Thresh RV Capture Amplitude (volts) 0.5 V [facility] Thresh RV Capture Duration (ms) 0.5 ms [facility] Thresh RV Sensing Amplitude (mvolts) 12.0 mV [facility] Tracking Rate (bpm) 130 {beats}/min [facility] XR CHEST 2V FRONTAL/LATon XR CHEST 2V FRONTAL/LAT * * *Final Report* * * DATE OF EXAM: Jun 20 2023 9:20AM AKX [id number] - XR CHEST 2V FRONTAL/LAT / PROCEDURE REASON: Other * * * * Physician Interpretation * * * * EXAMINATION: CHEST RADIOGRAPH (2 VIEW FRONTAL and LATERAL) CLINICAL HISTORY: Other, Rhythm device implantation MQ: [id number]_6 EXAM DATE/TIME: 06/20/2023 9:20 AM COMPARISON: RESULT: Lines, tubes, and devices: Right-sided cardiac pacing device with leads in stable position. Lungs and pleura: No pneumothorax. Trace bilateral pleural effusions. Cardiomediastinal silhouette: Normal cardiomediastinal silhouette. Bones and soft tissues: Right-sided shoulder prosthesis. IMPRESSION: Trace bilateral pleural effusions. No pneumothorax. Project Assistant: YOVANA Transcribe Date/Time: Jun 20 2023 10:02A Dictated by : BRITTNEY WALDEN MD This examination was interpreted and the report reviewed and electronically signed by: BRITTNEY WALDEN MD on Jun 20 2023 10:03AM EST [id number] [facility] ALLIED HEALTHon 06-19-2023 ALLIED HEALTH HNO ID: [id number] Author: Lucrecia Viramontes RT(R) Service: Radiology Author Type: Technologist Type: Allied Health Filed: 06/19/2023 2:41 PM Note Text: Radiology Service Progress Note PATIENT NAME: Brigette Holguin DATE OF SERVICE: June 19, 2023 TIME: 2:40 PM PATIENT IDENTITY VERIFICATION COMPLETED USING TWO (2) IDENTIFIERS: Name and Date of confirmed by patient verbally and Name and Date of confirmed by identification band. FALL SCREENING: Has the patient had 2 falls in the last year or 1 fall with injury or currently using an Ambulatory Assistive Device (Walker, Cane, Wheelchair, Crutches, etc.)? Inpatient: Screened on floor PATIENT GENDER DATA: Male PATIENT RELEVANT IMPLANT DATA REVIEWED: Not Applicable RADIOLOGY DEPARTMENT: General X-ray: Exam(s) Completed: Chest X-Ray PERIPHERAL IV DATA: Not applicable SIGNED BY: RT Stewart(R) June 19, 2023 2:40 PM [facility] ANES PRE-OPon 06-19-2023 ANES PRE-OP HNO ID: [id number] Author: Nic Chu MD Service: Anesthesiology Author Type: Physician Type: Anesthesia Preprocedure Evaluation Filed: 06/19/2023 8:41 AM Note Text: ANESTHESIOLOGY DAY OF SURGERY NOTE : 1950 Procedure Information Anesthesia Start Date/Time: 06/19/23 0836 Procedure: REMOVAL ELECTRODE(S) IMPLANTABLE DEFIBRILLATOR TRANSVENOUS EXTRACTION (Right) - SJM, right sided, RV extraction/replacement, PPG replacement. Lois caldwell hANDp on 06/16 by Lonnie BRADLEY PACU/CVICU Location: [place] [address] / [facility] Surgeons: Viktoriya Marcial MD Estimated body mass index is 23.18 kg/m? as calculated from the following: Height as of 06/16/23: 175.3 cm (5' 9"). Weight as of 06/16/23: 71.2 kg (157 lb). Most recent hematocrit and potassium results: Hematocrit 41.4 06/19/2023 Potassium 4.3 06/19/2023 Relevant Problems ANESTHESIA (+) Unspecified sleep apnea CARDIO (+) ASHD (arteriosclerotic heart disease) (+) Benign hypertension (+) Paroxysmal atrial fibrillation (HCC) (+) Presence of cardiac pacemaker PULMONARY (+) Asthma with chronic obstructive pulmonary disease (COPD) (+) Unspecified sleep apnea I - PHYSICAL EVALUATION AIRWAY Patient intubated: No. Tracheostomy tube not present Mallampati: II. TM distance: >3 FB. Neck ROM: full ROM without neurological symptoms. Mouth opening: adequate. Short neck: no. Thick neck: no DENTAL Dental findings: teeth intact. II - ANESTHESIA PLAN ASA Score: 3 Anesthetic Plan: general Airway type: ETT NPO Status: adequate Beta Elza Monitoring Plan Monitoring plan: standard ASA and invasive hemodynamic monitoring. Monitoring method: arterial Line Post Procedure Analgesic Plan Postoperative analgesic plan: multimodal analgesia. Informed Consent Anesthetic risks, benefits, alternatives, personnel and consent discussed: yes. Patient / Responsible Democrat agrees to proceed: yes Patient / Surrogate agrees to blood products: Yes Significant changes in the patient condition since the History and Physical, not otherwise documented in primary service progress note: no. Potential Anesthesia issues that may suggest increased risk of complications or contraindication to planned procedure: none. Vitals Value Taken Time BP 133/76 06/19/23720 Pulse 60 06/19/23720 Resp 17 06/19/23720 Temp 36.8 ?C (98.2 ?F) 06/19/23720 SpO2 99 % 06/19/23720 No current facility-administered medications on file as of 06/19/2023. No current outpatient medications on file as of 06/19/2023. I have interviewed and examined the patient. I have reviewed the medical record and/or the pre-anesthesia evaluation, pertinent labs, and test results. This contains updated information obtained within 48 hours of Surgery/Procedure. SIGNATURE: Nic Chu MD PATIENT NAME: Brigette Holguin DATE: June 19, 2023 TIME: 8:41 AM CSN: [id number] Normal [facility] Basic metabolic 2000 panelon 06-19-2023 Anion gap [Moles/Vol] 9 mmol/L Normal 9-18 [facility] Comment on above: Order Comment: Speci men Type: BLOOD SPECIMEN Ordering Facility: [facility] Address: [address] [place] [address] Performed By: #### 2 4321-2 #### [facility] CLIA [id number] 1 [place] [address] [place] Calcium [Mass/Vol] 9.0 mg/dL Normal 8.5-10.2 [facility] Comment on above: Order Comment: Speci men Type: BLOOD SPECIMEN Ordering Facility: [facility] Address: [address] [place] [address] Performed By: #### 2 4321-2 #### [facility] CLIA [id number] 1 [place] [address] [place] Chloride [Moles/Vol] 105 mmol/L Normal 97-105 [facility] Comment on above: Order Comment: Speci men Type: BLOOD SPECIMEN Ordering Facility: [facility] Address: [address] [place] [address] Performed By: #### 2 4321-2 #### [facility] CLIA [id number] 1 [place] [address] [place] CO2 [Moles/Vol] 27 mmol/L Normal 22-30 [facility] Comment on above: Order Comment: Speci men Type: BLOOD SPECIMEN Ordering Facility: [facility] Address: [address] [place] [address] Performed By: #### 2 4321-2 #### [facility] CLIA [id number] 1 [place] [address] [place] Creatinine [Mass/Vol] 1.24 mg/dL High 0.73-1.22 [facility] Comment on above: Order Comment: Carie lowe Type: BLOOD SPECIMEN Ordering Facility: [facility] Address: [place] [address] Performed By: #### 2 4321-2 #### [facility] CLIA [id number] [address] OF [facility] Creatinine and Glomerular filtration rate.predicted panel (S/P/Bld) 62 mL/min/1.73m??? Normal >=60 [facility] Comment on above: Order Comment: Carie lowe Type: BLOOD SPECIMEN Ordering Facility: [facility] Address: [address] [place] [address] Result Comment: Danay mated Glomerular Filtration Rate (eGFR) is calculated using the 2020 CKD-EPI creatinine equation. This equation utilizes serum creatinine, sex, and age as parameters. The creatinine assay has traceable calibration to isotope dilution-mass spectrometry. Refer to KDIGO guidelines for clinical interpretation. In patients with unstable renal function, e.g. those with acute kidney injury, the eGFR may not accurately reflect actual GFR. Performed By: #### 2 4321-2 #### [facility] CLIA [id number] [address] [place] [address] [place] Glucose [Mass/Vol] 94 mg/dL Normal 74-99 [facility] Comment on above: Order Comment: Carie lowe Type: BLOOD SPECIMEN Ordering Facility: [facility] Address: [address] [place] [address] Result Comment: The [place] Diabetes Association (ADA) provides guidance for cutoff values for fasting glucose and random glucose. The ADA defines fasting as no caloric intake for at least 8 hours. Fasting plasma glucose results between 100 to 125 mg/dL indicate increased risk for diabetes (prediabetes). Fasting plasma glucose results greater than or equal to 126 mg/dL meet the criteria for diagnosis of diabetes. In the absence of unequivocal hyperglycemia, results should be confirmed by repeat testing. In a patient with classic symptoms of hyperglycemia or hyperglycemic crisis, random plasma glucose results greater than or equal to 200 mg/dL meet the criteria for diagnosis of diabetes. Reference: Standards of Medical Care in Diabetes 2016, [place] [employer]. Diabetes Care. 2016.39(Suppl 1). Performed By: #### 2 4321-2 #### [facility] CLIA [id number] [address] [place] Potassium [Moles/Vol] 4.3 mmol/L Normal 3.7-5.1 [facility] Comment on above: Order Comment: Speci men Type: BLOOD SPECIMEN Ordering Facility: [facility] Address: [address] [place] [address] Performed By: #### 2 4321-2 #### [facility] CLIA [id number] [address] [place] Sodium [Moles/Vol] 141 mmol/L Normal 136-144 [facility] Comment on above: Order Comment: Speci men Type: BLOOD SPECIMEN Ordering Facility: [facility] Address: [address] [place] [address] Performed By: #### 2 4321-2 #### [facility] CLIA [id number] [address] [place] Urea nitrogen [Mass/Vol] 22 mg/dL Normal 9-24 [facility] Comment on above: Order Comment: Speci men Type: BLOOD SPECIMEN Ordering Facility: [facility] Address: [address] [place] [address] Performed By: #### 2 4321-2 #### [facility] CLIA [id number] [address] [place] CBC panel Auto (Bld)on 06-19 Erythrocyte distribution width (RBC) [Ratio] 13.2 % Normal 11.5-15.0 [facility] Comment on above: Order Comment: Speci men Type: BLOOD SPECIMEN Ordering Facility: [facility] Address: [address] [place] [address] Performed By: #### 5 8410-2 #### [facility] CLIA [id number] [address] [place] Hematocrit (Bld) [Volume fraction] 41.4 % Normal 39.0-51.0 [facility] Comment on above: Order Comment: Speci men Type: BLOOD SPECIMEN Ordering Facility: [facility] Address: [address] [place] [address] Performed By: #### 5 8410-2 #### [facility] CLIA [id number] [address] OF [facility] Hemoglobin (Bld) [Mass/Vol] 14.0 g/dL Normal 13.0-17.0 [facility] Comment on above: Order Comment: Speci men Type: BLOOD SPECIMEN Ordering Facility: [facility] Address: [address] [place] [address] Performed By: #### 5 8410-2 #### [facility] [facility] CLIA [id number] [address] MCH (RBC) [Entitic mass] 31.7 pg Normal 26.0-34.0 [facility] Comment on above: Order Comment: Speci men Type: BLOOD SPECIMEN Ordering Facility: [facility] Address: [address] [place] [address] Performed By: #### 5 8410-2 #### [facility] CLIA [id number] [address] MCHC (RBC) [Mass/Vol] 33.8 g/dL Normal 30.5-36.0 [facility] Comment on above: Order Comment: Speci men Type: BLOOD SPECIMEN Ordering Facility: [facility] Address: [address] [place] [address] Performed By: #### 5 8410-2 #### [facility] CLIA [id number] [address] [facility] MCV (RBC) [Entitic vol] 93.9 fL Normal 80.0-100.0 [facility] Comment on above: Order Comment: Speci men Type: BLOOD SPECIMEN Ordering Facility: [facility] Address: [address] [place] [address] Performed By: #### 5 8410-2 #### [facility] CLIA [id number] [address] [place] [address] [place] Nucleated RBC (Bld) [#/Vol] 10*3/uL Normal <0.01 [facility] Comment on above: Order Comment: Speci men Type: BLOOD SPECIMEN Ordering Facility: [facility] Address: [address] [place] [address] Performed By: #### 5 8410-2 #### [facility] CLIA [id number] 1 [place] [address] [place] Platelet mean volume (Bld) [Entitic vol] 9.4 fL Normal 9.0-12.7 [facility] Comment on above: Order Comment: Speci men Type: BLOOD SPECIMEN Ordering Facility: [facility] Address: [address] [place] [address] Performed By: #### 5 8410-2 #### [facility] CLIA [id number] [address] [place] Platelets (Bld) [#/Vol] 200 10*3/uL Normal 150-400 [facility] Comment on above: Order Comment: Speci men Type: BLOOD SPECIMEN Ordering Facility: [facility] Address: [address] [place] [address] Performed By: #### 5 8410-2 #### [facility] CLIA [id number] [address] [place] RBC (Bld) [#/Vol] 4.41 10*6/uL Normal 4.20-6.00 [facility] Comment on above: Order Comment: Speci men Type: BLOOD SPECIMEN Ordering Facility: [facility] Address: [address] [place] [address] Performed By: #### 5 8410-2 #### [facility] CLIA [id number] 1 [place] [address] [place] WBC (Bld) [#/Vol] 5.17 10*3/uL Normal 3.70-11.00 [facility] Comment on above: Order Comment: Speci men Type: BLOOD SPECIMEN Ordering Facility: [facility] Address: [address] [place] [address] Performed By: #### 5 8410-2 #### [facility] CLIA [id number] [address] [place] BLOOD TYPEon 023 ABO A Normal [facility] Comment on above: Order Comment: Speci men Type: BLOOD SPECIMEN Ordering Facility: [facility] Address: [address] [place] [address] Performed By: #### C ONABO #### [facility] CLIA [id number] [address] Rh Nom (Bld) Negative Normal [facility] Comment on above: Order Comment: Speci men Type: BLOOD SPECIMEN Ordering Facility: [facility] Address: [address] [place] [address] Performed By: #### C ONABO #### [facility] CLIA [id number] [address] HISTORY PHYSICALon HISTORY PHYSICAL HNO ID: [id number] Author: Viktoriya Marcial MD Service: Electrophysiology Author Type: Physician Type: HANDP Filed: 06/19/2023 8:30 AM Note Text: UPDATED HISTORY AND PHYSICAL EXAMINATION SERVICE DATE: 06/19/2023 SERVICE TIME: 8:30 AM PHYSICAL EXAM MUST BE COMPLETED ON ADMISSION The History and Physical (completed in the past 30 days) has been reviewed and the patient has been examined. The contents accurately reflect the patient's condition with the following additions or revisions since the HANDP was completed. Examination indicates no changes. No acute distress, alert and oriented x3, comfortable, easy work of breathing, face symmetric, moving all extremities, skin warm and dry. Provisional Diagnosis/Treatment Plan: Procedure(s) (LRB): REMOVAL ELECTRODE(S) IMPLANTABLE DEFIBRILLATOR TRANSVENOUS EXTRACTION (Right) This HANDP can be found in the Electronic Medical Record. SIGNATURE: Viktoriya Marcial MD PATIENT NAME: Brigette Holguin DATE: June 19, 2023 TIME: 8:30 AM Normal [facility] TYPE + SCREENon 06-19-2023 ABO A Normal [facility] Comment on above: Order Comment: Speci men Type: BLOOD SPECIMENOrdering Facility: [facility] Address: [address] [place] [address] Performed By: #### T SCR ####[facility] [id number] [place] [address] [facility] HISTORICAL AB SCR STATUS Negative Normal [facility] Comment on above: Order Comment: Speci men Type: BLOOD SPECIMENOrdering Facility: [facility] Address: [address] [place] [address] Performed By: #### T SCR ####[facility] [id number] [place] [id number] [facility] Rh Nom (Bld) Negative Normal [facility] Comment on above: Order Comment: Speci men Type: BLOOD SPECIMENOrdering Facility: [facility] Address: [address] [place] [address] Performed By: #### T SCR ####[facility] [id number] [address] TYPE AND SCREEN EXPIRATION 06/22/2023 23:59 Normal [facility] Comment on above: Order Comment: Speci men Type: BLOOD SPECIMENOrdering Facility: [facility] Address: [address] [place] [address] Performed By: #### T SCR ####[facility] [id number] [place] [id number] [facility] XR CHEST 1V FRONTALon 2022 XR CHEST 1V FRONTAL * * *Final Report* * * DATE OF EXAM: Jun 19 2023 2:42PM AKX [id number] - XR CHEST 1V FRONTAL / PROCEDURE REASON: Pneumothorax * * * * Physician Interpretation * * * * EXAMINATION: CHEST RADIOGRAPH (SINGLE VIEW AP OR PA) CLINICAL HISTORY: Pneumothorax, Pneumothorax MQ: XC1_5 Comparison: 03/23/2014 RESULT: Lines, tubes, and devices: Right-sided cardiac pacing device with one lead in right atrium and one lead in right ventricle stable position Overlying window shade ring coverer leads. Right shoulder replacement. Lungs and pleura: Clear. No infiltrates or effusions. Cardiomediastinal silhouette: Normal cardiomediastinal silhouette. Other: No significant additional findings. IMPRESSION: No acute radiographic abnormality. Project Assistant: PSCB Transcribe Date/Time: Jun 19 2023 2:59P Dictated by : BRITTNEY WALDEN MD This examination was interpreted and the report reviewed and electronically signed by: BRITTNEY WALDEN MD on Jun 19 2023 3:01PM EST [id number] Normal [facility] CNOVon 06-16-2023 CNOV Office Visit (AGCARD POB) ----- BRIGETTE HOLGUIN ([id number]) 1950 M Date Time Provider Department 06/16/23 11:00 AM LONNIE MERCERARDPOB During your visit today, we recorded the following information about you: Temperature Blood pressure Weight Height 67 degrees 148/74 71.2 kg 1.753 m Shahida Lugo MA 06/16/2023 10:43 AM Signed No cardiac complaints today. JOHN Escobar Drew, KIRK.HUMAN SERVICES ASSISTANT 06/16/2023 12:20 PM Signed [facility] Cardiology Electrophysiology PRIMARY CARE PHYSICIAN: Paresh Carranza [address] [place] [address] CHIEF COMPLAINT: History and physical update prior to PPM RV lead extraction with replacement on 06/19/[address] Marcial. HISTORY OF PRESENT ILLNESS (copied from Dr. Marcial's office note on 04/23/2023): 72-year-old male with history of essential hypertension, coronary disease, status post remote PCI, paroxysmal atrial fibrillation, on rate control strategy, not anticoagulated due to severe bruising, sinus node dysfunction, status post dual-chamber pacemaker implantation at [facility] in 2012. Device now is approaching MADDY. In addition, I right ventricular lead impedance has been trending up and now exceeds 1400 ohms, and capture threshold has been rising. The most recent interrogation showed RV threshold of 7 V at 1.5 ms. Intermittent electrical noise was noted as well. The patient is paced in the atrium 75% of the time and in the ventricle 45% time. The patient was referred for consideration of lead extraction/replacement and PPG replacement. Mr. Holguin presents for nurse visit accompanied by his spouse. He reports feeling well, denies palpitation, chest discomfort, dizziness, or syncope. His device is located in the right side of the chest (apparently after initial implant in 2012 he developed pocket infection that required device relocation to the right). Echocardiogram in 2021 showed preserved systolic function. Coronary angiography 2018 demonstrated nonobstructive CAD. Not on anticoagulation. Interval History: Brigette is a pleasant 72-year-old gentleman who presents today accompanied by his for history and physical update prior to permanent pacemaker RV lead extraction with replacement with Dr. Marcial on 06/19/2023. Overall patient reports he has been feeling well. He denies any angina, shortness of breath, worsening activity tolerance, or constitutional symptoms. Patient originally had permanent pacemaker system implanted in 2012. He developed a pocket infection requiring explantation and relocation to the right upper chest. Right ventricular lead impedances have been increasing exceeding 1400 ohms. Lengthy discussion was had regarding what to expect pre-/intra-/post procedure. Topics included procedure overview, general anesthesia, CTS backup, overnight stay in [facility], risk/benefits, and follow-up. Benefit being replacement of right ventricular lead. Low potential risk of bleeding, stroke, or . Patient was instructed to eat and drink well day before procedure with nothing after midnight except for medications with small sips of water. Medications, allergies, and medical history reviewed with patient. Patient and spouse verbalized that I had answered all their questions and they have nothing further at this time. Brigette verbalized a desire to move forward with procedure. PAST MEDICAL HISTORY Diagnosis Date ASHD (arteriosclerotic heart disease) 06/09/2007 Asthma with chronic obstructive pulmonary disease (COPD) 03/01/2015 Atrial fibrillation (HCC) 09/22/2012 Benign hypertension 2015 CAD (coronary artery disease) Diverticulosis of colon (without mention of hemorrhage) Hemiplegia, nondominant side S/P CVA (cerebrovascular accident) 08/07/2012 HTN (hypertension) Hypercholesterolemia Hyperlipidemia LDL goal <100 2015 Presence of cardiac pacemaker 03/01/2015 Spinal stenosis of lumbar region without neurogenic claudication 03/01/2015 Stroke (HCC) 08/07/2012 right posterior frontal lobe, left hand weakness Unspecified sleep apnea 03/01/2015 PAST SURGICAL HISTORY Procedure Laterality Date COLONOSCOPY FLX DX W/COLLJ SPEC WHEN PFRMD 09/15/2009 Colonoscopy PACEMAKER IMPLANT 12/03/2012 [facility] PACEMAKER IMPLANT 01/04/2013 re-implanted due to infection PAST SURGICAL HISTORY OF hernia PAST SURGICAL HISTORY OF 2006 Heart catherization Social History Tobacco Use Smoking status: Former Smokeless tobacco: Never Tobacco comments: 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 Normal [facility] Basophil percentageOrdered B y: Thierry Pepe on 06-12-2023 Chloride [Moles/Vol] 107 mmol/L 98-107 [facility] Glucose [Mass/Vol] 96 mg/dL 74-106 [facility] Potassium [Moles/Vol] 4.0 mmol/L 3.5-5.1 [facility] Sodium [Moles/Vol] 141 mmol/L 136-145 [facility] WBC (Bld) [#/Vol] 5.8 10*3/uL 4.4-11.0 [facility] Blood erythrocytes count (nu mber/volume)Ordered By: Thierry Pepe on 06-12-2023 RBC (Bld) [#/Vol] 4.64 10*6/uL 4.6-6.2 [facility] Blood hemoglobin measurement (mass/volume)Ordered By: Thierry Pepe on 06-12-2023 Hemoglobin (Bld) [Mass/Vol] 14.7 g/dL 13.0-16.5 [facility] Blood platelet mean volumeOr dered By: Thierry Pepe on 06-12-2023 Platelet mean volume (Bld) [Entitic vol] 9.5 fL 6.2-12.0 [facility] Determination of erythrocyte mean corpuscular volume (MCV)Ordered By: Thierry Pepe on 06-12-2023 MCV (RBC) [Entitic vol] 95.9 fL 80-94 [facility] Hematocrit Auto (Bld) [Volum e fraction]Ordered By: Thierry Pepe on 06-12-2023 Hematocrit (Bld) [Volume fraction] 44.5 % 40-54 [facility] Laboratory - Chemistry and C hemistry - challengeOrdered By: Thierry Pepe on 06-12-2023 CO2 [Moles/Vol] 30.0 mmol/L 21.0-32.0 [facility] Urea nitrogen/Creatinine [Mass ratio] 15.9 mg/mg 10-20 [facility] Laboratory - Hematology and Cell countsOrdered By: Thierry Pepe on 06-12-2023 Erythrocyte distribution width (RBC) [Entitic vol] 47.9 fL 35.1-43.9 [facility] Erythrocyte distribution width (RBC) [Ratio] 13.5 % 11.6-14.6 [facility] MCH (RBC) [Entitic mass] 31.7 pg 27.0-32.0 [facility] MCHC Auto (RBC) [Mass/Vol]Or dered By: Thierry Pepe on 06-12-2023 MCHC (RBC) [Mass/Vol] 33.0 g/dL 32-36 [facility] No Panel InformationOrdered By: Thierry Pepe on 06-12-2023 Estimated GFR (MDRD) Amer 72 mL/min >60 [facility] Comment on above: GFR Calc Estimated GFR (MDRD) Non-Af Amer 60 mL/min >60 [facility] Comment on above: Non- GFR Calc No Panel InformationOrdered By: Kamaljit Ingram on 06-12-2023 Thyroid Stimulating Hormone (TSH) 3.00 uIU/mL 0.358-3.74 [facility] Platelets bldOrdered By: Jose Roberto Pepe on 06-12-2023 Platelets (Bld) [#/Vol] 216 10*3/uL 150-450 [facility] Serum or plasma calcium gm urement (mass/volume)Ordered By: Thierry Pepe on 06-12-2023 Calcium [Mass/Vol] 9.2 mg/dL 8.5-10.1 [facility] Serum or plasma creatinine m easurement (mass/volume)Ordered By: Thierry Pepe on 06-12-2023 Creatinine [Mass/Vol] 1.26 mg/dL 0.70-1.30 [facility] Comment on above: The validity of the calculated GFR & GFRAA in patients over 70 years has not been determined. Clinical correlation is essential. Serum or plasma urea nitroge n measurement (mass/volume)Ordered By: Thierry Pepe on 06-12-2023 Urea nitrogen [Mass/Vol] 20 mg/dL 7-18 [facility] Thin prep Papanicolaou smear with manual screeningOrdered By: Thierry Pepe on 06-12-2023 Thin prep Papanicolaou smear with manual screening 4 5-15 [facility] Laboratory - Chemistry and C hemistry - challengeOrdered By: Paresh Carranza on 05-19-2023 Free T4 [Mass/Vol] 0.98 ng/dL 0.76-1.46 [facility] No Panel InformationOrdered By: Paresh Carranza on 05-19-2023 Free Triiodothyronine (T3) pg/dL 2.4 pg/mL 2.18-3.98 [facility] Thyroid Stimulating Hormone (TSH) 3.00 uIU/mL 0.358-3.74 [facility] BRIGETTE HOLGUIN ([id number]) 1950 M Date Time Provider Department 05/05/23 VIKTORIYA MARCIALGCARDVALERIE During your visit today, we recorded the following information about you: Jr Smith 05/05/2023 10:44 AM Signed Patient is scheduled for an RV extraction/replacement on 06/[address] Marcial. The hospital will call the day before between 2-5pm with your arrival time. You should not eat or drink after midnight the day before the procedure. 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 You should continue to take medications as prescribed the morning of the procedure with just a sip of water unless otherwise instructed. HANDP update on 06/16 at 11am with Lonnie Kenny [address] [place] [address] Spoke with Brigette Holguin on May 05, 2023. Informed of instructions as stated above. Patient verbalized understanding. Basia Molina RN 05/05/2023 11:31 AM Signed Pt's name has been added to [facility] procedure board. Basia Ochoa RN Allergies As of Date: 05/05/2023 Noted Allergy Reaction OXYBUTYNIN 10/05/2020 12 - Shortness of Breath SULFASALAZINE 08/25/2012 2 - Rash METOPROLOL 12/25/2020 2 - Rash NYSTATIN 04/12/2019 14 - Other: See Comments PLAVIX (CLOPIDOGREL) 12/25/2020 2 - Rash SULFA (SULFONAMIDE ANTIBIOTICS) 06/19/2007 4 - Hives 12 - Shortness of Breath TAPE (ADHESIVE TAPE (ROSINS)) 09/06/2013 2 - Rash Comments: Patient has rash when using surgery tape and EKG electrodes Date Reviewed: 04/23/2023 Reviewed by: Adriane Cuellar LPN - Fully Assessed Reason for Visit: Preparations For Procedures [899] Prescriptions as of 05/05/2023 - losartan (COZAAR) 25 mg tablet Take 25 mg by mouth once daily. - meloxicam (MOBIC) 15 mg tablet Take 15 mg by mouth once daily. - levothyroxine 75 mcg cap Take 75 mcg by mouth daily before breakfast. - cyanocobalamin (VITAMIN B-12) 1,000 mcg tab Take 1 tablet by mouth once daily. - cyanocobalamin 1,000 mcg/mL Inject 1 mL intramuscularly once every month. - amiodarone (PACERONE) 100 mg tablet Take 200 mg by mouth once daily. - DULoxetine (CYMBALTA) 60 mg capsule Take 60 mg by mouth once daily. - rOPINIRole (REQUIP) 1 mg tablet Take 1 mg by mouth daily at bedtime. - tamsulosin (FLOMAX) 0.4 mg Take 0.4 mg by mouth once daily. - fluticasone-vilanterol (BREO ELLIPTA) 200-25 mcg/dose inhaler Inhale 1 Inhalation as instructed once daily. - METHOTREXATE ORAL Take by mouth. - BUDESONIDE ORAL Take by mouth. - CPAP Use as directed. - dilTIAZem CD (CARDIZEM CD) 180 mg 24 hr capsule Take 180 mg by mouth once daily. Dr. Hollingsworth - hydroxychloroquine (PLAQUENIL) 200 mg tablet Take 1 tablet by mouth twice daily. Dr. Steen - rosuvastatin (CRESTOR) 20 mg tablet Take 1 tablet by mouth daily at bedtime. - COMPOUNDED PRESCRIPTION CPAP - rivaroxaban (XARELTO) 20 mg tablet Take 1 tablet by mouth daily with dinner. - Aspirin 81 mg Tab Take 1 tablet by mouth once daily. Take with food. Meds Comments as of 09/06/2013: Problem List As Of Date 05/05/2023 Noted Resolved ASHD (arteriosclerotic heart disease) [I25.10] 06/09/2007 ABNORMAL LIVER FUNCTION STUDY [R94.5] 06/10/2007 Inflamed seborrheic keratosis [L82.0] 01/02/2009 03/01/2015 SKIN TAG PAPILLOMAS///SKIN HYPERTRO/ATROPH NOS *01/02/2009 03/01/2015 Other seborrheic keratosis [L82.1] 01/02/2009 03/01/2015 SOLAR LENTIGENES///DYSCHROMIA OTHER [L81.9] 01/02/2009 03/01/2015 Other chronic dermatitis due to solar radiation*01/02/2009 03/01/2015 Benign neoplasm of skin of trunk, except scrotu*01/02/2009 03/01/2015 POSTINFLAMMATORY HYPER/HYPOPIG///DYSCHROMI A UNS*02/03/2009 03/01/2015 UNCERTAIN BEHAV NEOPL SKIN//IRRITATED NEVUS MATTHEW*02/03/2009 03/01/2015 Open wound(s) (multiple) of unspecified site(s)*02/03/2009 03/01/2015 Abdominal Pain, Generalized [R10.84] 07/06/2009 BPH (benign prostatic hyperplasia) [N40.0] 10/02/2011 Epididymitis [N45.1] 10/02/2011 03/01/2015 Testalgia [N50.819] 11/19/2011 03/01/2015 Epididymal cyst [N50.3] 11/19/2011 03/01/2015 Hemiplegia, nondominant side S/P CVA (cerebrova*09/22/2012 03/01/2015 Cervical spondylosis [M47.812] 08/23/2013 Chronic anticoagulation [Z79.01] 08/23/2013 Asthma with chronic obstructive pulmonary disea*03/01/2015 Spinal stenosis of lumbar region without neurog*03/01/2015 2015 Presence of cardiac pacemaker [Z95.0] 03/01/2015 Unspecified sleep apnea [G47.30] 03/01/2015 Paroxysmal atrial fibrillation (HCC) [I48.0] 2015 Hyperlipidemia LDL goal <100 [E78.5] 2015 Benign hypertension [I10] 2015 Slurred speech [R47.81] 12/25/2020 Encounter Status:Closed by JR SMITH [facility]05/23 [facility] Office Visit (BREONNA PADILLA) ----- BRIGETTE HOLGUIN ([id number]) 1950 [place] Date Time Provider Department 04/23/23 11:00 AM VIKTORIYA MARCIALHAGCARDPOB During your visit today, we recorded the following information about you: Pulse Blood pressure Weight Height 60/minute 124/70 70.3 kg 1.753 m Adriane Cuellar LPN 04/23/2023 10:54 AM Signed Patient denies any cardiac complaints or symptoms. LINDA Arevalo Sergey Aleksandrovich, MD 04/23/2023 11:57 AM Signed [facility] SECTION OF CARDIAC PACING and ELECTROPHYSIOLOGY OUTPATIENT VISIT DATE April 23, 2023 OUTPATIENT VISIT TYPE NEW PRIMARY CARE PHYSICIAN: Paresh Carranza [address] [facility] [address] [place] [address] HISTORY OF PRESENT ILLNESS: 72-year-old male with history of essential hypertension, coronary disease, status post remote PCI, paroxysmal atrial fibrillation, on rate control strategy, not anticoagulated due to severe bruising, sinus node dysfunction, status post dual-chamber pacemaker implantation at [facility] in 2012. Device now is approaching MADDY. In addition, I right ventricular lead impedance has been trending up and now exceeds 1400 ohms, and capture threshold has been rising. The most recent interrogation showed RV threshold of 7 V at 1.5 ms. Intermittent electrical noise was noted as well. The patient is paced in the atrium 75% of the time and in the ventricle 45% time. The patient was referred for consideration of lead extraction/replacement and PPG replacement. Mr. Holguin presents for nurse visit accompanied by his spouse. He reports feeling well, denies palpitation, chest discomfort, dizziness, or syncope. His device is located in the right side of the chest (apparently after initial implant in 2012 he developed pocket infection that required device relocation to the right). Echocardiogram in 2021 showed preserved systolic function. Coronary angiography 2019 demonstrated nonobstructive CAD. Not on anticoagulation. PAST MEDICAL HISTORY Diagnosis Date ASHD (arteriosclerotic heart disease) 06/09/2007 Asthma with chronic obstructive pulmonary disease (COPD) ([facility]) 03/01/2015 Atrial fibrillation ([facility]) 09/22/2012 Benign hypertension 2015 CAD (coronary artery disease) Diverticulosis of colon (without mention of hemorrhage) Hemiplegia, nondominant side S/P CVA (cerebrovascular accident) 08/07/2012 HTN (hypertension) Hypercholesterolemia Hyperlipidemia LDL goal <100 2015 Presence of cardiac pacemaker 03/01/2015 Spinal stenosis of lumbar region without neurogenic claudication 03/01/2015 Stroke ([facility]) 08/07/2012 right posterior frontal lobe, left hand weakness Unspecified sleep apnea 03/01/2015 MEDICATIONS: losartan (COZAAR) 25 mg tablet Take 25 mg by mouth once daily. meloxicam (MOBIC) 15 mg tablet Take 15 mg by mouth once daily. levothyroxine 75 mcg cap Take 75 mcg by mouth daily before breakfast. cyanocobalamin (VITAMIN B-12) 1,000 mcg tab Take 1 tablet by mouth once daily. cyanocobalamin 1,000 mcg/mL Inject 1 mL intramuscularly once every month. amiodarone (PACERONE) 100 mg tablet Take 200 mg by mouth once daily. DULoxetine (CYMBALTA) 60 mg capsule Take 60 mg by mouth once daily. rOPINIRole (REQUIP) 1 mg tablet Take 1 mg by mouth daily at bedtime. tamsulosin (FLOMAX) 0.4 mg Take 0.4 mg by mouth once daily. fluticasone-vilanterol (BREO ELLIPTA) 200-25 mcg/dose inhaler Inhale 1 Inhalation as instructed once daily. METHOTREXATE ORAL Take by mouth. BUDESONIDE ORAL Take by mouth. CPAP Use as directed. dilTIAZem CD (CARDIZEM CD) 180 mg 24 hr capsule Take 180 mg by mouth once daily. Dr. Hollingsworth hydroxychloroquine (PLAQUENIL) 200 mg tablet Take 1 tablet by mouth twice daily. Dr. Steen rosuvastatin (CRESTOR) 20 mg tablet Take 1 tablet by mouth daily at bedtime. COMPOUNDED PRESCRIPTION CPAP rivaroxaban (XARELTO) 20 mg tablet Take 1 tablet by mouth daily with dinner. Aspirin 81 mg Tab Take 1 tablet by mouth once daily. Take with food. REVIEW OF SYSTEMS: Review of Systems Constitutional: Negative for fatigue and fever. HENT: Negative for hearing loss. Eyes: Negative for pain. Respiratory: Negative for cough and shortness of breath. Cardiovascular: Negative for chest pain, palpitations and leg swelling. Gastrointestinal: Negative for abdominal pain and blood in stool. Endocrine: Negative for cold intolerance. Genitourinary: Negative for hematuria. Musculoskeletal: Negative for back pain. Skin: Negative for pallor. Neurological: Negative for dizziness and syncope. Psychiatric/Behavioral: The patient is not nervous/anxious. PHYSICAL EXAMINATION: BP 124/70 (BP Site: Left Arm, BP Position: Sitting, BP Cuff Size: Regular Adult) Pulse 60 Ht 5' 9" (1.753 m) Wt 155 lb (70.3 k (more content not included)... Normal [facility] Absolute lymphocyte countOrd ered By: Uma Israel on 03-12-2023 Lymphocytes Auto (Unsp spec) [#/Vol] 1.57 10*3/uL 0.83-4.51 [facility] Basophil percentageOrdered B y: Uma Israel on 03-12-2023 Basophils/100 WBC (Bld) 0.9 % 0-1 [facility] Eosinophils/100 WBC (Bld) 1.2 % 0-5 [facility] Neutrophils (Bld) [#/Vol] 3.4 10*3/uL 2.0-7.7 [facility] Neutrophils/100 WBC (Bld) 59.9 % 47-70 [facility] WBC (Bld) [#/Vol] 5.7 10*3/uL 4.4-11.0 [facility] Blood erythrocytes count (nu mber/volume)Ordered By: Uma Israel on 03-12-2023 RBC (Bld) [#/Vol] 4.56 10*6/uL 4.6-6.2 [facility] Blood hemoglobin measurement (mass/volume)Ordered By: Uma Israel on 03-12-2023 Hemoglobin (Bld) [Mass/Vol] 14.1 g/dL 13.0-16.5 [facility] Blood lymphocytes/100 leukoc ytesOrdered By: Uma Israel on 03-12-2023 Lymphocytes/100 WBC (Bld) 27.7 % 19-41 [facility] Blood monocytes/100 leukocyt esOrdered By: Uma Israel on 03-12-2023 Monocytes/100 WBC (Bld) 10.1 % 0-10 [facility] Blood platelet mean volumeOr dered By: Uma Israel on 03-12-2023 Platelet mean volume (Bld) [Entitic vol] 9.9 fL 6.2-12.0 [facility] Determination of erythrocyte mean corpuscular volume (MCV)Ordered By: Uma Israel on 03-12-2023 MCV (RBC) [Entitic vol] 93.4 fL 80-94 [facility] Erythrocyte sedimentation ra teOrdered By: Uma Israel on 03-12-2023 ESR (Bld) [Velocity] 5 mm/h 0-20 [facility] Hematocrit Auto (Bld) [Volum e fraction]Ordered By: Uma Israel on 03-12-2023 Hematocrit (Bld) [Volume fraction] 42.6 % 40-54 [facility] Laboratory - Hematology and Cell countsOrdered By: Uma Israel on 03-12-2023 Erythrocyte distribution width (RBC) [Entitic vol] 51.8 fL 35.1-43.9 [facility] Erythrocyte distribution width (RBC) [Ratio] 15.0 % 11.6-14.6 [facility] Immature granulocytes/100 WBC (Bld) 0.200 % 0.0-0.9 [facility] Comment on above: IG% - Immature Granu locytes (promyelocytes, myelocytes and metamyelocytes) > 1% indicates that a LEFT SHIFT is Present. MCH (RBC) [Entitic mass] 30.9 pg 27.0-32.0 [facility] Nucleated RBC/100 WBC (Bld) [Ratio] 0 % 0-5 [facility] MCHC Auto (RBC) [Mass/Vol]Or dered By: Uma Israel on 03-12-2023 MCHC (RBC) [Mass/Vol] 33.1 g/dL 32-36 [facility] Platelets bldOrdered By: Alfonso Israel on 03-12-2023 Platelets (Bld) [#/Vol] 215 10*3/uL 150-450 [facility] Serum or plasma C reactive p rotein measurement (mass/volume)Ordered By: Uma Israel on 03-12-2023 CRP [Mass/Vol] mg/L 0.0-3.0 [facility] Comment on above: C-Reactive Protein ( CRP) provides useful information for thediagnosis, therapy and monitoring of inflammatory processesand associated diseases. For the evaluation of Relative Riskfor Cardiovascular Disease, a High Sensitivity CRP (HSCRP)should be ordered. Basophil percentageOrdered B y: Dr. Carranza on 11-18-2022 Chloride [Moles/Vol] 107 mmol/L 98-107 [facility] Glucose [Mass/Vol] 101 mg/dL 74-106 [facility] Comment on above: Fasting Glucose resu lt from 100 to 125 mg/dL suggests IMPAIRED HOMEOSTASIS per A.D.A. criteria. Potassium [Moles/Vol] 5.2 mmol/L 3.5-5.1 [facility] Sodium [Moles/Vol] 137 mmol/L 136-145 [facility] Laboratory - Chemistry and C hemistry - challengeOrdered By: Dr. Carranza on 11-18-2022 CO2 [Moles/Vol] 27.0 mmol/L 21.0-32.0 [facility] Free T4 [Mass/Vol] 0.97 ng/dL 0.76-1.46 [facility] Urea nitrogen/Creatinine [Mass ratio] 16.0 mg/mg 10-20 [facility] No Panel InformationOrdered By: Dr. Carranza on 11-18-2022 Estimated GFR (MDRD) Amer 59 mL/min >60 [facility] Comment on above: GFR Calc Estimated GFR (MDRD) Non-Af Amer 49 mL/min >60 [facility] Comment on above: Non- GFR Calc Free Triiodothyronine (T3) pg/dL 1.9 pg/mL 2.18-3.98 [facility] Thyroid Stimulating Hormone (TSH) 8.31 uIU/mL 0.358-3.74 [facility] Serum or plasma calcium gm urement (mass/volume)Ordered By: Dr. Carranza on 11-18-2022 Calcium [Mass/Vol] 9.0 mg/dL 8.5-10.1 [facility] Serum or plasma creatinine m easurement (mass/volume)Ordered By: Dr. Carranza on 11-18-2022 Creatinine [Mass/Vol] 1.50 mg/dL 0.70-1.30 [facility] Comment on above: The validity of the calculated GFR & GFRAA in patients over 70 years has not been determined. Clinical correlation is essential. Serum or plasma urea nitroge n measurement (mass/volume)Ordered By: Dr. Carranza on 11-18-2022 Urea nitrogen [Mass/Vol] 24 mg/dL 7-18 [facility] Thin prep Papanicolaou smear with manual screeningOrdered By: Dr. Carranza on 11-18-2022 Thin prep Papanicolaou smear with manual screening 3 5-15 [facility] No Panel InformationOrdered By: Jairo Grande on 10-03-2022 Thyroid Stimulating Hormone (TSH) 3.13 uIU/mL 0.358-3.74 [facility] Basophil percentageOrdered B y: Jairo Grande on 09-09-2022 Bilirubin [Mass/Vol] 0.40 mg/dL 0.20-1.00 [facility] Comment on above: For patients on eltr ombopag therapy, use of Dimension [place] TBIL is not recommended. Chloride [Moles/Vol] 111 mmol/L 98-107 [facility] Glucose [Mass/Vol] 88 mg/dL 74-106 [facility] Potassium [Moles/Vol] 5.0 mmol/L 3.5-5.1 [facility] Protein [Mass/Vol] 6.9 g/dL 6.4-8.2 [facility] Sodium [Moles/Vol] 144 mmol/L 136-145 [facility] Direct bilirubinOrdered By: Jairo Grande on 09-09-2022 Bilirubin.direct [Mass/Vol] 0.11 mg/dL 0.00-0.30 [facility] Laboratory - Chemistry and C hemistry - challengeOrdered By: Jairo Grande on 09-09-2022 ALP [Catalytic activity/Vol] 76 U/L 45-117 [facility] ALT [Catalytic activity/Vol] 21 U/L 16-61 [facility] CO2 [Moles/Vol] 28.0 mmol/L 21.0-32.0 [facility] Free T4 [Mass/Vol] 1.07 ng/dL 0.76-1.46 [facility] Globulin (S) [Mass/Vol] 2.9 g/dL 2.2-4.2 [facility] Magnesium [Mass/Vol] 2.3 mg/dL 1.6-2.6 [facility] Urea nitrogen/Creatinine [Mass ratio] 20.4 mg/mg 10-20 [facility] No Panel InformationOrdered By: Jairo Grande on 09-09-2022 Estimated GFR (MDRD) Amer 66 mL/min >60 [facility] Comment on above: GFR Calc Estimated GFR (MDRD) Non-Af Amer 54 mL/min >60 [facility] Comment on above: Non- GFR Calc Thyroid Stimulating Hormone (TSH) 6.62 uIU/mL 0.358-3.74 [facility] Serum or plasma albumin gm urement (mass/volume)Ordered By: Jairo Grande on 09-09-2022 Albumin [Mass/Vol] 4.0 g/dL 3.2-5.0 [facility] Serum or plasma calcium gm urement (mass/volume)Ordered By: Jairo Grande on 09-09-2022 Calcium [Mass/Vol] 9.2 mg/dL 8.5-10.1 [facility] Serum or plasma creatinine m easurement (mass/volume)Ordered By: Jairo Grande on 09-09-2022 Creatinine [Mass/Vol] 1.37 mg/dL 0.70-1.30 [facility] Comment on above: The validity of the calculated GFR & GFRAA in patients over 70 years has not been determined. Clinical correlation is essential. Serum or plasma urea nitroge n measurement (mass/volume)Ordered By: Jairo Grande on 09-09-2022 Urea nitrogen [Mass/Vol] 28 mg/dL 7-18 [facility] Thin prep Papanicolaou smear with manual screeningOrdered By: Jairo Grande on 09-09-2022 Thin prep Papanicolaou smear with manual screening 23 U/L 15-37 [facility] Thin prep Papanicolaou smear with manual screening 5 5-15 [facility] Laboratory - Chemistry and C hemistry - challengeon 05-20-2022 Cobalamin (Vitamin B12) [Mass/Vol] 191 pg/mL 211-911 [facility] Work Phone: Basophil percentageon 2021 Chloride [Moles/Vol] 106 mmol/L 98-107 [facility] Work Phone: Glucose [Mass/Vol] 86 mg/dL 74-106 [facility] Work Phone: Potassium [Moles/Vol] 4.8 mmol/L 3.5-5.1 [facility] Work Phone: Sodium [Moles/Vol] 138 mmol/L 136-145 [facility] Work Phone: Laboratory - Chemistry and C hemistry - challengeon 01-31-2022 CO2 [Moles/Vol] 28.0 mmol/L 21.0-32.0 [facility] Work Phone: Urea nitrogen/Creatinine [Mass ratio] 14.3 mg/mg 10-20 [facility] Work Phone: No Panel Informationon 01-31 Estimated GFR (MDRD) Amer 68 mL/min >60 [facility] Work Phone: Comment on above: GFR Calc Estimated GFR (MDRD) Non-Af Amer 56 mL/min >60 [facility] Work Phone: Comment on above: Non- GFR Calc Serum or plasma calcium gm urement (mass/volume)on 01-31-2022 Calcium [Mass/Vol] 9.8 mg/dL 8.5-10.1 [facility] Work Phone: Serum or plasma creatinine m easurement (mass/volume)on 01-31-2022 Creatinine [Mass/Vol] 1.33 mg/dL 0.70-1.30 [facility] Work Phone: Comment on above: The validity of the calculated GFR & GFRAA in patients over 70 years has not been determined. Clinical correlation is essential. Serum or plasma urea nitroge n measurement (mass/volume)on 01-31-2022 Urea nitrogen [Mass/Vol] 19 mg/dL 7-18 [facility] Work Phone: Thin prep Papanicolaou smear with manual screeningon 01-31-2022 Thin prep Papanicolaou smear with manual screening 4 5-15 [facility] Work Phone: Laboratory - Microbiology an d Antimicrobial susceptibilityon 01-09-2022 SARS-CoV-2 (COVID-19) RNA ALESHA+probe Ql (Unsp spec) Detected Not Detect [facility] Work Phone: Comment on above: Normal Reference Ran ge: Not DetectedMethod:(RT-PCR) real-time reverse transcriptase PCRLuminex JEROD Instrument*The Food and Drug Administration (FDA) has issued an Emergency Use Authorization (EAU) for the JEROD SARS-CoV-2 Assay for the rapid detection of the virus that causes COVID-19. This test has been validated, but the FDAs independent review of this validation is pending.*Negative results do not preclude infection and should not be used as the sole basis for treatment or patient management. Optimum specimen types and timing for peak viral levels during infections caused by SARS-CoV-2 have not been determined. Collection of multiple specimens from the same patient may be necessary to detect the virus. The possibility of a false negative result should be considered if the patient has clinical presentation or has had recent exposure. No Panel Informationon 01-02 Vitamin B12 Level > 2000 pg/mL 211-911 [facility] Work Phone: Basophil percentageon 2021 Bilirubin [Mass/Vol] 0.60 mg/dL 0.20-1.00 [facility] Work Phone: [phone] Comment on above: For patients on eltr ombopag therapy, use of Dimension [place] TBIL is not recommended. Cholesterol [Mass/Vol] 117 mg/dL <200 [facility] Work Phone: Comment on above: <200 mg/dL Desirable 200-240 mg/dL Borderline >240 mg/dL High Risk Protein [Mass/Vol] 6.8 g/dL 6.4-8.2 [facility] Work Phone: [phone] Triglyceride [Mass/Vol] 53 mg/dL <199 [facility] Work Phone: [phone] Comment on above: The drugs N-Acetylcy steine and Metamizole may falsely depress this assay.Serum Triglycerides Reference Interval Normal <150 mg/dL Borderline high 150 - 199 mg/dL High 200 - 499 mg/dL Very High > or = 500 mg/dL Direct bilirubinon 2 Bilirubin.direct [Mass/Vol] 0.18 mg/dL 0.00-0.30 [facility] Work Phone: [phone] Laboratory - Chemistry and C hemistry - challengeon 11-22-2021 Free T4 [Mass/Vol] 1.19 ng/dL 0.76-1.46 [facility] Work Phone: [phone] ALP [Catalytic activity/Vol] 87 U/L 45-117 [facility] Work Phone: ALT [Catalytic activity/Vol] 29 U/L 16-61 [facility] Work Phone: [phone] Globulin (S) [Mass/Vol] 3.2 g/dL 2.2-4.2 [facility] Work Phone: No Panel Informationon 11-22 Thyroid Stimulating Hormone (TSH) 3.69 uIU/mL 0.358-3.74 [facility] Work Phone: [phone] Serum or plasma albumin gm urement (mass/volume)on 11-22-2021 Albumin [Mass/Vol] 3.6 g/dL 3.2-5.0 [facility] Work Phone: Serum or plasma cholesterol in HDL measurement (mass/volume)on 11-22-2021 Cholesterol in HDL [Mass/Vol] 59 mg/dL >40 [facility] Work Phone: Comment on above: The drugs N-Acetylcy steine and Metamizole may falsely depress this assay. Reference Range HDL <40 mg/dL Low HDL Cholesterol HDL >or= 60 mg/dL High HDL Cholesterol Serum or plasma cholesterol in VLDL measurement (mass/volume)on 11-22-2021 Cholesterol in VLDL [Mass/Vol] 11 mg/dL 5-40 [facility] Work Phone: Serum or plasma low density lipoprotein (LDL) cholesterol measurement (mass/volume)on 11-22-2021 Cholesterol in LDL [Mass/Vol] 47 mg/dL 0-130 [facility] Work Phone: Thin prep Papanicolaou smear with manual screeningon 11-22-2021 Thin prep Papanicolaou smear with manual screening 22 U/L 15-37 [facility] Work Phone: Absolute lymphocyte counton 10-11-2021 Lymphocytes Auto (Unsp spec) [#/Vol] 1.21 10*3/uL 0.83-4.51 [facility] Work Phone: Basophil percentageon 2021 Basophils/100 WBC (Bld) 0.7 % 0-1 [facility] Work Phone: Chloride [Moles/Vol] 106 mmol/L 98-107 [facility] Work [facility]: Eosinophils/100 WBC (Bld) 0.4 % 0-5 [facility] Work Phone: Glucose [Mass/Vol] 103 mg/dL 74-106 [facility] Work Phone: Comment on above: Fasting Glucose resu lt from 100 to 125 mg/dL suggests IMPAIRED HOMEOSTASIS per A.D.A. criteria. Neutrophils (Bld) [#/Vol] 6.8 10*3/uL 2.0-7.7 [facility] Work Phone: Neutrophils/100 WBC (Bld) 74.6 % 47-70 [facility] Work Phone: Potassium [Moles/Vol] 4.4 mmol/L 3.5-5.1 [facility] Work Phone: Sodium [Moles/Vol] 139 mmol/L 136-145 [facility] Work Phone: WBC (Bld) [#/Vol] 9.1 10*3/uL 4.4-11.0 [facility] Work Phone: Blood erythrocytes count (nu mber/volume)on 10-11-2021 RBC (Bld) [#/Vol] 4.38 10*6/uL 4.6-6.2 [facility] Work Phone: Blood hemoglobin measurement (mass/volume)on 10-11-2021 Hemoglobin (Bld) [Mass/Vol] 12.4 g/dL 13.0-16.5 [facility] Work Phone: Blood lymphocytes/100 leukoc yteson 10-11-2021 Lymphocytes/100 WBC (Bld) 13.4 % 19-41 [facility] Work Phone: Blood monocytes/100 leukocyt eson 10-11-2021 Monocytes/100 WBC (Bld) 10.3 % 0-10 [facility] Work Phone: Blood platelet mean volumeon 10-11-2021 Platelet mean volume (Bld) [Entitic vol] 9.4 fL 6.2-12.0 [facility] Work Phone: [phone] Determination of erythrocyte mean corpuscular volume (MCV)on 10-11-2021 MCV (RBC) [Entitic vol] 87.2 fL 80-94 [facility] Work Phone: [phone] Hematocrit Auto (Bld) [Volum e fraction]on 10-11-2021 Hematocrit (Bld) [Volume fraction] 38.2 % 40-54 [facility] Work Phone: [phone] Laboratory - Chemistry and C hemistry - challengeon 10-11-2021 CO2 [Moles/Vol] 30.0 mmol/L 21.0-32.0 [facility] Work Phone: [phone] Free T4 [Mass/Vol] 1.20 ng/dL 0.76-1.46 [facility] Work Phone: [phone] Natriuretic peptide B (Bld) [Mass/Vol] 17.9 pg/mL 0-100 [facility] Work Phone: [phone] Urea nitrogen/Creatinine [Mass ratio] 18.2 mg/mg 10-20 [facility] Work Phone: [phone] Laboratory - Hematology and Cell countson 10-11-2021 Erythrocyte distribution width (RBC) [Entitic vol] 53.8 fL 35.1-43.9 [facility] Work Phone: [phone] Erythrocyte distribution width (RBC) [Ratio] 16.9 % 11.6-14.6 [facility] Work Phone: [phone] Immature granulocytes/100 WBC (Bld) 0.600 % 0.0-0.9 [facility] Work Phone: [phone] Comment on above: IG% - Immature Granu locytes (promyelocytes, myelocytes and metamyelocytes) > 1% indicates that a LEFT SHIFT is Present. MCH (RBC) [Entitic mass] 28.3 pg 27.0-32.0 [facility] Work Phone: Nucleated RBC/100 WBC (Bld) [Ratio] 0 % 0-5 [facility] Work Phone: MCHC Auto (RBC) [Mass/Vol]on 10-11-2021 MCHC (RBC) [Mass/Vol] 32.5 g/dL 32-36 [facility] Work Phone: No Panel Informationon 10-11 Estimated GFR (MDRD) Amer 60 mL/min >60 [facility] Work Phone: Comment on above: GFR Calc Estimated GFR (MDRD) Non-Af Amer 50 mL/min >60 [facility] Work Phone: Comment on above: Non- GFR Calc Thyroid Stimulating Hormone (TSH) 4.35 uIU/mL 0.358-3.74 [facility] Work Phone: Platelets bldon 10-11-2021 Platelets (Bld) [#/Vol] 310 10*3/uL 150-450 [facility] Work Phone: Serum or plasma calcium gm urement (mass/volume)on 10-11-2021 Calcium [Mass/Vol] 9.1 mg/dL 8.5-10.1 [facility] Work Phone: Serum or plasma creatinine m easurement (mass/volume)on 10-11-2021 Creatinine [Mass/Vol] 1.48 mg/dL 0.70-1.30 [facility] Work Phone: Comment on above: The validity of the calculated GFR & GFRAA in patients over 70 years has not been determined. Clinical correlation is essential. Serum or plasma urea nitroge n measurement (mass/volume)on 10-11-2021 Urea nitrogen [Mass/Vol] 27 mg/dL 7-18 [facility] Work Phone: Thin prep Papanicolaou smear with manual screeningon 10-11-2021 Thin prep Papanicolaou smear with manual screening 3 5-15 [facility] Work Phone: .Auto Diffon 03-30-2021 Basophil, Absolute 0.10 10 3/mcL Normal 0.00-0.19 [facility] ([place]) Comment on above: Performed By: #### C BC, ADIFF, ANEU, BMP #### [address] [address] #### GFR #### [address] [address] Basophils/100 WBC (Bld) 0.6 % Normal 0.0-2.5 [facility] ([place]) Comment on above: Performed By: #### C BC, ADIFF, ANEU, BMP #### [address] [address] #### GFR #### [address] [address] Eosinophil, Absolute 0.00 10 3/mcL Normal 0.00-0.40 [facility] ([place]) Comment on above: Performed By: #### C BC, ADIFF, ANEU, BMP #### [place] [address] #### GFR #### [address] [address] Eosinophils/100 WBC (Bld) 0.0 % Normal 0.0-7.0 [facility] ([place]) Comment on above: Performed By: #### C BC, ADIFF, ANEU, BMP #### [address] [address] #### GFR #### [address] [address] Lymphocyte, Absolute 0.20 10 3/mcL Low 0.77-3.85 A [facility] ([place]) Comment on above: Performed By: #### C BC, ADIFF, ANEU, BMP #### [address] [address] #### GFR #### [address] [address] Lymphocytes/100 WBC (Bld) 1.9 % Low 10.0-50.0 [facility] ([place]) Comment on above: Performed By: #### C BC, ADIFF, ANEU, BMP #### [address] [address] #### GFR #### [address] [address] Monocyte, Absolute 0.60 10 3/mcL Normal 0.15-1.00 [facility] ([place]) Comment on above: Performed By: #### C BC, ADIFF, ANEU, BMP #### [address] [address] #### GFR #### [address] [address] Monocytes/100 WBC (Bld) 4.8 % Normal 1.7-13.0 [facility] ([place]) Comment on above: Performed By: #### C BC, ADIFF, ANEU, BMP #### [place] [address] #### GFR #### [address] [address] Neutrophils/100 WBC (Bld) 92.7 % High 37.0-80.0 [facility] ([place]) Comment on above: Performed By: #### C BC, ADIFF, ANEU, BMP #### [place] [address] #### GFR #### [address] [address] .GFRon 03-30-2021 GFR 60 ml/min/1.73sqm Normal [facility] ([place]) Comment on above: Result Comment: GFR Population mean for , Non- Americans Ages 20-29 = 116 mL/min/1.73 sq.m. Ages 30-39 = 107 mL/min/1.73 sq.m. Ages 40-49 = 99 mL/min/1.73 sq.m. Ages 50-59 = 93 mL/min/1.73 sq.m. Ages 60-69 = 85 mL/min/1.73 sq.m. Ages 70+ = 75 mL/min/1.73 sq.m. Chronic Kidney Disease: Less than 60 mL/min/1.73 square meters End Stage Renal Disease: Less than 15 mL/min/1.73 square meters Performed By: #### C BC, ADIFF, ANEU, BMP #### [address] [address] #### GFR #### [address] [address] GFR Non- 49 ml/min/1.73sqm Normal [facility] ([place]) Comment on above: Result Comment: GFR Population mean for , Non- Americans Ages 20-29 = 116 mL/min/1.73 sq.m. Ages 30-39 = 107 mL/min/1.73 sq.m. Ages 40-49 = 99 mL/min/1.73 sq.m. Ages 50-59 = 93 mL/min/1.73 sq.m. Ages 60-69 = 85 mL/min/1.73 sq.m. Ages 70+ = 75 mL/min/1.73 sq.m. Chronic Kidney Disease: Less than 60 mL/min/1.73 square meters End Stage Renal Disease: Less than 15 mL/min/1.73 square meters Performed By: #### C MICHELLE CHRISTIAN ANEU, BMP #### [place] [address] #### GFR #### [address] [address] .NEUABSon 03-30-2021 Neutrophil, Absolute 11.50 10 3/mcL High 2.85-6.16 [facility] ([place]) Comment on above: Performed By: #### C MICHELLE CHRISTIAN ANEU BMP #### [address] [address] #### GFR #### [address] [address] BMPon 03-30-2021 BUN/Creatinine Ratio 12 ratio Normal 02-27 [facility] ([place]) Comment on above: Performed By: #### C MICHELLE CHRISTIAN ANEU, BMP #### [address] [address] #### GFR #### [address] [address] Calcium [Mass/Vol] 8.7 mg/dL Normal 8.4-10.2 [facility] ([place]) Comment on above: Performed By: #### C BC, ADIFF, ANEU, BMP #### [address] [address] #### GFR #### [address] [address] Chloride [Moles/Vol] 101 mmol/L Normal 98-107 [facility] ([place]) Comment on above: Performed By: #### C BC, ADIFF, ANEU, BMP #### [address] [address] #### GFR #### [address] [address] CO2 [Moles/Vol] 31 mmol/L Normal 23-31 [facility] ([place]) Comment on above: Performed By: #### C BC, ADIFF, ANEU, BMP #### [place] [address] #### GFR #### [place] [address] Creatinine [Mass/Vol] 1.42 mg/dL High 0.70-1.30 [facility] ([place]) Comment on above: Performed By: #### C BC, ADIFF, ANEU, BMP #### [address] [address] #### GFR #### [address] [address] Electrolyte Balance 7.0 mEq/L Normal [facility] ([place]) Comment on above: Performed By: #### C BC, ADIFF, ANEU, BMP #### [address] [address] #### GFR #### [place] [id number] Glucose [Mass/Vol] 126 mg/dL High 83-110 [facility] ([place]) Comment on above: Performed By: #### C BC, ADIFF, ANEU, BMP #### [place] [address] #### GFR #### [address] [address] Potassium [Moles/Vol] 4.6 mmol/L Normal 3.5-5.1 [facility] ([place]) Comment on above: Performed By: #### C BC, ADJARRELL, ANEU, BMP #### [address] [address] #### GFR #### [address] [address] Sodium [Moles/Vol] 139 mmol/L Normal 136-145 [facility] ([place]) Comment on above: Performed By: #### C ANAHI, MICHELLE, ANEU, BMP #### [address] [address] #### GFR #### [address] [address] Urea nitrogen [Mass/Vol] 17 mg/dL Normal 7-18 [facility] ([place]) Comment on above: Performed By: #### C BC, MICHELLE, ANEU, BMP #### [address] [address] #### GFR #### [address] [address] CBCon 03-30-2021 Erythrocyte distribution width (RBC) [Ratio] 14.7 % High 11.5-14.5 [facility] [facility] ([place] Comment on above: Performed By: #### C BCMICHELLE, ANEU, BMP ####[place] [address]#### GFR ####[address] [address] Hematocrit (Bld) [Volume fraction] 34.8 % Low 42.0-52.0 [facility] ([place]) Comment on above: Performed By: #### C BC, ADIFF, ANEU, BMP ####[address] [address]#### GFR ####[address] [address] Hgb 11.6 G/dL Low 14.0-18.0 [facility] ([place]) Comment on above: Performed By: #### C BC, ADIFF, ANEU, BMP ####[facility] [place] [address]#### GFR ####[address] [address] MCH (RBC) [Entitic mass] 31.1 pg Normal 27.0-31.2 [facility] ([place]) Comment on above: Performed By: #### C BC, ADIFF, ANEU, BMP ####[facility] [place] [address]#### GFR ####[place] [address] MCHC 33.3 G/dL Normal 31.8-35.4 [facility] ([place]) Comment on above: Performed By: #### C BC, ADIFF, ANEU, BMP ####[place] [address]#### GFR ####[address] [address] MCV (RBC) [Entitic vol] 93.3 fL Normal 80.0-94.0 [facility] ([place] Comment on above: Performed By: #### C BC, ADIFF, ANEU, BMP ####[place] [address]#### GFR ####[place] [address] Platelet 259 10 3/mcL Normal 130-400 [facility] ([place]) Comment on above: Performed By: #### C BC, ADIFF, ANEU, BMP ####[facility] [place] [address]#### GFR ####[address] [address] Platelet mean volume (Bld) [Entitic vol] 7.8 fL Normal 7.4-10.4 [facility] ([place] Comment on above: Performed By: #### C BC, ADIFF, ANEU, BMP ####[place] [address]#### GFR ####[place] [address] RBC 3.72 10 6/mcL Low 4.04-6.13 [facility] ([place]) Comment on above: Performed By: #### C BC, ADIFF, ANEU, BMP ####[place] [address]#### GFR ####[place] [address] WBC 12.50 10 3/mcL High 4.60-10.80 [facility] ([place]) Comment on above: Performed By: #### C BC, ADIFF, ANEU, BMP ####[place] [address]#### GFR ####[place] [address] .Auto Diffon 03-29-2021 Basophil, Absolute 0.00 10 3/mcL Normal 0.00-0.19 [facility] ([place]) Comment on above: Performed By: #### C BC, ADIFF, ANEU ####[place] [address]#### BMP, GFR ####[place] [address] Basophils/100 WBC (Bld) 0.3 % Normal 0.0-2.5 [facility] ([place]) Comment on above: Performed By: #### C BC, ADIFF, ANEU ####[place] [address]#### BMP, GFR ####[place] [address] Eosinophil, Absolute 0.00 10 3/mcL Normal 0.00-0.40 [facility] ([place]) Comment on above: Performed By: #### C BC, ADIFF, ANEU ####[place] [address]#### BMP, GFR ####[place] [address] [place] [address] Eosinophils/100 WBC (Bld) 0.2 % Normal 0.0-7.0 [facility] ([place]) Comment on above: Performed By: #### C BC, ADIFF, ANEU ####[place] Mzblofnr655 [place] [address]#### BMP, GFR ####[address] [address] Lymphocyte, Absolute 1.00 10 3/mcL Normal 0.77-3.85 [facility] ([place]) Comment on above: Performed By: #### C BC, ADIFF, ANEU ####[place] [address] [place] [address]#### BMP, GFR ####[address] [address] Lymphocytes/100 WBC (Bld) 9.4 % Low 10.0-50.0 [facility] ([place]) Comment on above: Performed By: #### C ANAHI ADIFF, ANEU ####[place] Dgxolqcp708[place] [address]#### BMP, GFR ####[address] [address] Monocyte, Absolute 1.20 10 3/mcL High 0.15-1.00 [facility] ([place] Comment on above: Performed By: #### C ANAHI ADIFF, ANEU ####[place] Rvamypgk143 [place] [address]#### BMP, GFR ####[address] [address] Monocytes/100 WBC (Bld) 12.0 % Normal 1.7-13.0 [facility] ([place]) Comment on above: Performed By: #### C BC, ADIFF, ANEU ####[place] Ddpknuso705 [place] [address]#### BMP, GFR ####[address] [address] Neutrophils/100 WBC (Bld) 78.1 % Normal 37.0-80.0 [facility] ([place]) Comment on above: Performed By: #### C BC, ADIFF, ANEU ####[place] [address] [place], [place] [address]#### BMP, GFR ####[place] [address] [place] [address] .GFRon 03-29-2021 GFR 58 ml/min/1.73sqm Normal [facility] ([place]) Comment on above: Result Comment: GFR Population mean for , Non- Americans Ages 20-29 = 116 mL/min/1.73 sq.m. Ages 30-39 = 107 mL/min/1.73 sq.m. Ages 40-49 = 99 mL/min/1.73 sq.m. Ages 50-59 = 93 mL/min/1.73 sq.m. Ages 60-69 = 85 mL/min/1.73 sq.m. Ages 70+ = 75 mL/min/1.73 sq.m. Chronic Kidney Disease: Less than 60 mL/min/1.73 square meters End Stage Renal Disease: Less than 15 mL/min/1.73 square meters Performed By: #### C BC, ADIFF, ANEU ####[place] [place], [place] [address]#### BMP, GFR ####[address] [address] GFR Non- 48 ml/min/1.73sqm Normal [facility] ([place]) Comment on above: Result Comment: GFR Population mean for , Non- Americans Ages 20-29 = 116 mL/min/1.73 sq.m. Ages 30-39 = 107 mL/min/1.73 sq.m. Ages 40-49 = 99 mL/min/1.73 sq.m. Ages 50-59 = 93 mL/min/1.73 sq.m. Ages 60-69 = 85 mL/min/1.73 sq.m. Ages 70+ = 75 mL/min/1.73 sq.m. Chronic Kidney Disease: Less than 60 mL/min/1.73 square meters End Stage Renal Disease: Less than 15 mL/min/1.73 square meters Performed By: #### C BC, ADIFF, ANEU ####[place] [place] [id number]#### BMP, GFR ####[facility] [place] [address] .NEUABSon 03-29-2021 Neutrophil, Absolute 8.10 10 3/mcL High 2.85-6.16 A [facility] ([place]) Comment on above: Performed By: #### C MICHELLE CHRISTIAN, ANEU ####[place] [place] [address]#### BMP, GFR ####[address] [address] BMPon 03-29-2021 BUN/Creatinine Ratio 14 ratio Normal 7-27 [facility] ([place] Comment on above: Performed By: #### C MICHELLE CHRISTIAN, ANEU ####[place] [address]#### BMP, GFR ####[place] [address] Calcium [Mass/Vol] 8.9 mg/dL Normal 8.4-10.2 [facility] ([place]) Comment on above: Performed By: #### C MICHELLE CHRISTIAN, ANEU ####[place] [address]#### BMP, GFR ####[address] [address] Chloride [Moles/Vol] 104 mmol/L Normal 98-107 [facility] ([place] Comment on above: Performed By: #### C MICHELLE CHRISTIAN, ANEU ####[place] [place] [address]#### BMP, GFR ####[address] [address] CO2 [Moles/Vol] 30 mmol/L Normal 23-31 [facility] ([place]) Comment on above: Performed By: #### C VADIM CHRISTIANIFF, ANEU ####[place] Wxexqncg712 [place] [id number]#### BMP, GFR ####[address] [address] Creatinine [Mass/Vol] 1.45 mg/dL High 0.70-1.30 [facility] ([place]) Comment on above: Performed By: #### C BC, ADIFF, ANEU ####[place] Iaxdhire840 [place] [id number]#### BMP, GFR ####[address] [address] Electrolyte Balance 6.0 mEq/L Normal [facility] ([place]) Comment on above: Performed By: #### C BC, ADIFF, ANEU ####[place] [address]#### BMP, GFR ####[place] [address] Glucose [Mass/Vol] 98 mg/dL Normal 83-110 [facility] ([place] Comment on above: Performed By: #### C BC, ADIFF, ANEU ####[place] [address]#### BMP, GFR ####[address] [address] Potassium [Moles/Vol] 4.3 mmol/L Normal 3.5-5.1 [facility] ([place] Comment on above: Performed By: #### C BC, ADIFF, ANEU ####[place] [address]#### BMP, GFR ####[place] [address] Sodium [Moles/Vol] 140 mmol/L Normal 136-145 [facility] ([place] Comment on above: Performed By: #### C BC, ADIFF, ANEU ####[place] Grltqcvx479 [place] [address]#### BMP, GFR ####[address] [address] Urea nitrogen [Mass/Vol] 20 mg/dL High 7-18 [facility] ([place]) Comment on above: Performed By: #### C BC, ADIFF, ANEU ####[place] [place] [address]#### BMP, GFR ####[place] [address] CBCon 03-29-2021 Erythrocyte distribution width (RBC) [Ratio] 14.7 % High 11.5-14.5 [facility] ([place] Comment on above: Performed By: #### C BC, ADIFF, ANEU ####[place] [address]#### BMP, GFR ####[place] [address] Hematocrit (Bld) [Volume fraction] 35.7 % Low 42.0-52.0 [facility] ([place] Comment on above: Performed By: #### C BC, ADIFF, ANEU ####[place] [address]#### BMP, GFR ####[place] [address] Hgb 12.1 G/dL Low 14.0-18.0 [facility] ([place]) Comment on above: Performed By: #### C BC, ADIFF, ANEU ####[place] [address]#### BMP, GFR ####[place] [address] MCH (RBC) [Entitic mass] 31.3 pg High 27.0-31.2 [facility] ([place]) Comment on above: Performed By: #### C BC, ADIFF, ANEU ####[place] [address]#### BMP, GFR ####[place] [address] MCHC 33.7 G/dL Normal 31.8-35.4 [facility] ([place] Comment on above: Performed By: #### C BC, ADIFF, ANEU ####[place] [address]#### BMP, GFR ####[place] [address] MCV (RBC) [Entitic vol] 92.7 fL Normal 80.0-94.0 [facility] ([place] Comment on above: Performed By: #### MICHELLE TATE, ANEU ####[place] Vpmeroqf148[place] [address]#### BMP, GFR ####[place] [address] Platelet 248 10 3/mcL Normal 130-400 [facility] ([place]) Comment on above: Performed By: #### C MICHELLE CHRISTIAN, ANEU ####[place] Mrneoygi140[place] [address]#### BMP, GFR ####[place] [address] Platelet mean volume (Bld) [Entitic vol] 7.4 fL Normal 7.4-10.4 [facility] ([place] Comment on above: Performed By: #### MICHELLE TATE, ANEU ####[place] [address]#### BMP, GFR ####[place] [address] RBC 3.85 10 6/mcL Low 4.04-6.13 [facility] ([place]) Comment on above: Performed By: #### MICHELLE TATE, ANEU ####[place] [address]#### BMP, GFR ####[place] [address] WBC 10.30 10 3/mcL Normal 4.60-10.80 [facility] ([place]) Comment on above: Performed By: #### C MICHELLE CHRISTIAN, ANEU ####[place] Noizuzgl560[place] [address]#### BMP, GFR ####[place] [address] XR SHOULDER MINIMUM 2 VIEWS RIGHTon 03-29-2021 XR SHOULDER MINIMUM 2 VIEWS RIGHT ORIGINAL EXAMINATION: TWO XRAY VIEWS OF THE RIGHT SHOULDER 03/29/2021 5:59 pm COMPARISON: 01/30/2021. HISTORY: ORDERING SYSTEM PROVIDED HISTORY: Reason for Exam: TSA FINDINGS: Arthroplasty hardware is in place and appears unchanged in relation to the prior exam. There is 2 cm of acromioclavicular separation which is new. Distal clavicle is not well evaluated however appears irregular on the scapular Y-view which could represent fracture. IMPRESSION: Arthroplasty hardware is in place, however no definite interval change is identified. Acromioclavicular separation measuring 2 cm is new. Distal clavicle appears mildly irregular, possibly representing fracture, however this is partially obscured from view on this exam. Correlation with patient history is suggested as it is unclear based on these images and patient's given history. Interpreted by: Rudolph Delarosa Preliminary Report By: Rudolph Delarosa Electronically signed By Rudolph Delarosa Dictated Date: 03/29/2021 6:04:14 PM Prelim Date: 03/29/2021 6:10:54 PM Sign Date: 03/29/2021 6:10:54 PM Ordering Provider: UMA Kang [facility] ([place]) .Auto Diffon 01-31-2021 Basophil, Absolute 0.00 10 3/mcL Normal 0.00-0.19 [facility] ([place]) Comment on above: Performed By: #### C BC ADIFF ANEU, BMP #### [place] [address] #### GFR #### [address] [address] Basophils/100 WBC (Bld) 0.1 % Normal 0.0-2.5 [facility] ([place]) Comment on above: Performed By: #### C BC, ADIFF, ANEU, BMP #### [address] [address] #### GFR #### [address] [address] Eosinophil, Absolute 0.00 10 3/mcL Normal 0.00-0.40 [facility] ([place]) Comment on above: Performed By: #### C BC, ADIFF, ANEU, BMP #### [place] [address] #### GFR #### [address] [address] Eosinophils/100 WBC (Bld) 0.0 % Normal 0.0-7.0 [facility] ([place]) Comment on above: Performed By: #### C BC, ADIFF, ANEU, BMP #### [address] [address] #### GFR #### [address] [address] Lymphocyte, Absolute 0.20 10 3/mcL Low 0.77-3.85 A [facility] ([place]) Comment on above: Performed By: #### C BC, ADIFF, ANEU, BMP #### [place] [address] #### GFR #### [address] [address] Lymphocytes/100 WBC (Bld) 1.4 % Low 10.0-50.0 [facility] ([place]) Comment on above: Performed By: #### C BC, ADIFF, ANEU, BMP #### [place] [address] #### GFR #### [address] [address] Monocyte, Absolute 0.90 10 3/mcL Normal 0.15-1.00 [facility] ([place] Comment on above: Performed By: #### C BC, ADIFF, ANEU, BMP #### [place] [address] #### GFR #### [address] [address] Monocytes/100 WBC (Bld) 6.5 % Normal 1.7-13.0 [facility] ([place]) Comment on above: Performed By: #### C BC, ADIFF, ANEU, BMP #### [place] [address] #### GFR #### [address] [address] Neutrophils/100 WBC (Bld) 92.0 % High 37.0-80.0 [facility] ([place]) Comment on above: Performed By: #### C MICHELLE CHRISTIAN, ANEU, BMP #### [place] [address] [place], [place] [address] #### GFR #### [facility] [address] [place] [address] .GFRon 01-31-2021 GFR 59 ml/min/1.73sqm Normal [facility] ([place]) Comment on above: Result Comment: GFR Population mean for , Non- Americans Ages 20-29 = 116 mL/min/1.73 sq.m. Ages 30-39 = 107 mL/min/1.73 sq.m. Ages 40-49 = 99 mL/min/1.73 sq.m. Ages 50-59 = 93 mL/min/1.73 sq.m. Ages 60-69 = 85 mL/min/1.73 sq.m. Ages 70+ = 75 mL/min/1.73 sq.m. Chronic Kidney Disease: Less than 60 mL/min/1.73 square meters End Stage Renal Disease: Less than 15 mL/min/1.73 square meters Performed By: #### C MICHELLE CHRISTIAN, ANEU, BMP ####[place] [address] [place], [place] [address]#### GFR ####[facility] [place] [address] GFR Non- 49 ml/min/1.73sqm Normal [facility] ([place]) Comment on above: Result Comment: GFR Population mean for , Non- Americans Ages 20-29 = 116 mL/min/1.73 sq.m. Ages 30-39 = 107 mL/min/1.73 sq.m. Ages 40-49 = 99 mL/min/1.73 sq.m. Ages 50-59 = 93 mL/min/1.73 sq.m. Ages 60-69 = 85 mL/min/1.73 sq.m. Ages 70+ = 75 mL/min/1.73 sq.m. Chronic Kidney Disease: Less than 60 mL/min/1.73 square meters End Stage Renal Disease: Less than 15 mL/min/1.73 square meters Performed By: #### C BC, ADIFF, ANEU, BMP ####[place] [address] [place] [address]#### GFR ####[address] [address] .NEUABSon 01-31-2021 Neutrophil, Absolute 12.90 10 3/mcL High 2.85-6.16 [facility] ([place] Comment on above: Performed By: #### C BC, ADIFF, ANEU, BMP ####[place] [place] [address]#### GFR ####[place] [address] BMPon 01-31-2021 BUN/Creatinine Ratio 15 ratio Normal 7-27 [facility] ([place] Comment on above: Performed By: #### C BC, ADIFF, ANEU, BMP ####[place] [address] [place] [address]#### GFR ####[place] [address] Calcium [Mass/Vol] 8.5 mg/dL Normal 8.4-10.2 [facility] ([place] Comment on above: Performed By: #### C BC, ADIFF, ANEU, BMP ####[place] [place] [address]#### GFR ####[place] [address] Chloride [Moles/Vol] 106 mmol/L Normal 98-107 [facility] ([place] Comment on above: Performed By: #### C BC, ADIFF, ANEU, BMP ####[place] [address]jepb[address] [place] [address]#### GFR ####[address] [address] CO2 [Moles/Vol] 26 mmol/L Normal 23-31 [facility] ([place] Comment on above: Performed By: #### C BC, ADIFF, ANEU, BMP ####[place] Itjcxrwn937 [place] [address]#### GFR ####[address] [address] Creatinine [Mass/Vol] 1.43 mg/dL High 0.70-1.30 [facility] ([place] Comment on above: Performed By: #### C BCMICHELLE, ANEU, BMP ####[place] Hvfjvxpc[address] [place] [address]#### GFR ####[address] [address] Electrolyte Balance 9.0 mEq/L Normal [facility] ([place] Comment on above: Performed By: #### C BCMICHELLE, ANEU, BMP ####[place] Cfspgflq733 [place] [address]#### GFR ####[address] [address] Glucose [Mass/Vol] 125 mg/dL High 83-110 [facility] ([place] Comment on above: Performed By: #### C BCMICHELLE, ANEU, BMP ####[place] Blgbaloy[address] [place] [address]#### GFR ####[address] [address] Potassium [Moles/Vol] 4.7 mmol/L Normal 3.5-5.1 [facility] ([place] Comment on above: Performed By: #### C MICHELLE CHRISTIAN ANEU, BMP ####[place] Jsirefwv[address] [place] [address]#### GFR ####[address] [address] Sodium [Moles/Vol] 141 mmol/L Normal 136-145 [facility] ([place] Comment on above: Performed By: #### C BC ADJARRELL, ANEU, BMP ####[place] Kdhtkrgw[address] [place] [address]#### GFR ####[address] [address] Urea nitrogen [Mass/Vol] 21 mg/dL High 7-18 [facility] ([place]) Comment on above: Performed By: #### C BC, ADIFF, ANEU, BMP ####[address] [address]#### GFR ####[address] [address] CBCon 01-31-2021 Erythrocyte distribution width (RBC) [Ratio] 15.2 % High 11.5-14.5 [facility] ([place] Comment on above: Performed By: #### C BC, ADIFF, ANEU, BMP #### [place] [address] #### GFR #### [place] [address] Hematocrit (Bld) [Volume fraction] 34.8 % Low 42.0-52.0 [facility] ([place] Comment on above: Performed By: #### C BC, ADIFF, ANEU, BMP #### [place] [address] #### GFR #### [place] [address] Hgb 11.8 G/dL Low 14.0-18.0 [facility] ([place] Comment on above: Performed By: #### C BC, ADIFF, ANEU, BMP #### [place] [address] #### GFR #### [place] [address] MCH (RBC) [Entitic mass] 32.0 pg High 27.0-31.2 [facility] ([place] Comment on above: Performed By: #### C BC, ADIFF, ANEU, BMP #### [place] [address] #### GFR #### [place] [address] MCHC 34.0 G/dL Normal 31.8-35.4 [facility] ([place]) Comment on above: Performed By: #### C BC, ADIFF, ANEU, BMP #### [place] [address] #### GFR #### [place] [address] MCV (RBC) [Entitic vol] 94.0 fL Normal 80.0-94.0 [facility] ([place]) Comment on above: Performed By: #### C BCMICHELLE ANEU, BMP #### [place] [address] #### GFR #### [place] [address] Platelet 228 10 3/mcL Normal 130-400 [facility] ([place]) Comment on above: Performed By: #### C MICHELLE CHRISTIAN ANEU, BMP #### [place] [address] #### GFR #### [place] [address] Platelet mean volume (Bld) [Entitic vol] 8.0 fL Normal 7.4-10.4 [facility] ([place]) Comment on above: Performed By: #### C MICHELLE CHRISTIAN ANEU, BMP #### [place] [address] #### GFR #### [place] [address] RBC 3.70 10 6/mcL Low 4.04-6.13 [facility] ([place] Comment on above: Performed By: #### C MICHELLE CHRISTIAN ANEU, BMP #### [place] [address] #### GFR #### [place] [address] WBC 14.00 10 3/mcL High 4.60-10.80 [facility] ([place]) Comment on above: Performed By: #### C BC ADJARRELL, ANEU, BMP #### [place] [address] #### GFR #### [place] [address] XR SHOULDER MINIMUM 2 VIEWS RIGHTon 01-30-2021 XR SHOULDER MINIMUM 2 VIEWS RIGHT ORIGINAL XR SHOULDER MINIMUM 2 VIEWS RIGHT CLINICAL STATEMENT: Status Post Arthroplasty. COMPARISON: None FINDINGS: The patient is status post RIGHT shoulder replacement with anatomic alignment demonstrated. Postoperative soft tissue edema is noted. Moderate narrowing the chronic joint seen. 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 IMPRESSION: RIGHT shoulder replacement with anatomic alignment. Interpreted By: Jairon Lei MD Preliminary Report By: Jairon Lei MD Electronically Signed By: Jairon Lei MD Dictated Date: 01/30/2021 12:31:00 PM Prelim Date: 01/30/2021 12:31:00 PM Sign Date: 01/30/2021 12:32:31 PM Ordering Provider:Uma Kang [facility] ([place]) .Auto Diffon 01-15-2021 Basophil, Absolute 0.00 10 3/mcL Normal 0.00-0.19 [facility] ([place] Comment on above: Performed By: #### C BC, ADIFF, ANEU, BMP #### [place] [address] #### GFR #### [address] [address] Basophils/100 WBC (Bld) 0.5 % Normal 0.0-2.5 [facility] ([place] Comment on above: Performed By: #### C BC, ADIFF, ANEU, BMP #### [address] [address] #### GFR #### [address] [address] Eosinophil, Absolute 0.00 10 3/mcL Normal 0.00-0.40 [facility] ([place] Comment on above: Performed By: #### C BC, ADIFF, ANEU, BMP #### [place] [address] #### GFR #### [address] [address] Eosinophils/100 WBC (Bld) 0.0 % Normal 0.0-7.0 [facility] ([place]) Comment on above: Performed By: #### C BC, ADIFF, ANEU, BMP #### [address] [address] #### GFR #### [address] [address] Lymphocyte, Absolute 0.70 10 3/mcL Low 0.77-3.85 A [facility] ([place] Comment on above: Performed By: #### C BC, ADIFF, ANEU, BMP #### [address] [address] #### GFR #### [address] [address] Lymphocytes/100 WBC (Bld) 10.4 % Normal 10.0-50.0 [facility] ([place]) Comment on above: Performed By: #### C BC, ADIFF, ANEU, BMP #### [address] [address] #### GFR #### [address] [address] Monocyte, Absolute 0.60 10 3/mcL Normal 0.15-1.00 [facility] ([place]) Comment on above: Performed By: #### C BC, ADIFF, ANEU, BMP #### [address] [address] #### GFR #### [address] [address] Monocytes/100 WBC (Bld) 9.3 % Normal 1.7-13.0 [facility] ([place]) Comment on above: Performed By: #### C BC, ADIFF, ANEU, BMP #### [address] [address] #### GFR #### [address] [address] Neutrophils/100 WBC (Bld) 79.8 % Normal 37.0-80.0 [facility] ([place]) Comment on above: Performed By: #### C BC, ADIFF, ANEU, BMP #### [address] [address] #### GFR #### [address] [address] .GFRon 01-15-2021 GFR Non- 47 ml/min/1.73sqm Normal [facility] ([place]) Comment on above: Result Comment: GFR Population mean for , Non- Americans Ages 20-29 = 116 mL/min/1.73 sq.m. Ages 30-39 = 107 mL/min/1.73 sq.m. Ages 40-49 = 99 mL/min/1.73 sq.m. Ages 50-59 = 93 mL/min/1.73 sq.m. Ages 60-69 = 85 mL/min/1.73 sq.m. Ages 70+ = 75 mL/min/1.73 sq.m. Chronic Kidney Disease: Less than 60 mL/min/1.73 square meters End Stage Renal Disease: Less than 15 mL/min/1.73 square meters Performed By: #### C BC, ADIFF, ANEU, BMP #### [address] [address] #### GFR #### [address] [address] GFR 57 ml/min/1.73sqm Normal [facility] ([place] Comment on above: Result Comment: GFR Population mean for , Non- Americans Ages 20-29 = 116 mL/min/1.73 sq.m. Ages 30-39 = 107 mL/min/1.73 sq.m. Ages 40-49 = 99 mL/min/1.73 sq.m. Ages 50-59 = 93 mL/min/1.73 sq.m. Ages 60-69 = 85 mL/min/1.73 sq.m. Ages 70+ = 75 mL/min/1.73 sq.m. Chronic Kidney Disease: Less than 60 mL/min/1.73 square meters End Stage Renal Disease: Less than 15 mL/min/1.73 square meters Performed By: #### C BC, ADIFF, ANEU, BMP #### [address] [address] #### GFR #### [address] [address] .NEUABSon 01-15-2021 Neutrophil, Absolute 5.10 10 3/mcL Normal 2.85-6.16 A [facility] ([place] Comment on above: Performed By: #### C BC, ADIFF, ANEU, BMP #### [address] [address] #### GFR #### [address] [address] BMPon 01-15-2021 BUN/Creatinine Ratio 20 ratio Normal 7-27 [facility] ([place] Comment on above: Performed By: #### C BC, ADIFF, ANEU, BMP #### [address] [address] #### GFR #### [address] [address] Calcium [Mass/Vol] 9.0 mg/dL Normal 8.4-10.2 [facility] ([place] Comment on above: Performed By: #### C BC, ADIFF, ANEU, BMP #### [place] [address] #### GFR #### [address] [address] Chloride [Moles/Vol] 105 mmol/L Normal 98-107 [facility] ([place] Comment on above: Performed By: #### C BC, ADIFF, ANEU, BMP #### [address] [address] #### GFR #### [address] [address] CO2 [Moles/Vol] 29 mmol/L Normal 23-31 [facility] ([place] Comment on above: Performed By: #### C BC, ADIFF, ANEU, BMP #### [place] [address] #### GFR #### [address] [address] Creatinine [Mass/Vol] 1.48 mg/dL High 0.70-1.30 [facility] ([place] Comment on above: Performed By: #### C BC, ADIFF, ANEU, BMP #### [address] [address] #### GFR #### [address] [address] Electrolyte Balance 8.0 mEq/L Normal [facility] ([place] Comment on above: Performed By: #### C MICHELLE CHRISTIAN ANEU, BMP #### [address] [address] #### GFR #### [address] [address] Glucose [Mass/Vol] 81 mg/dL Low 83-110 [facility] ([place] Comment on above: Performed By: #### C MICHELLE CHRISTIAN ANEU, BMP #### [address] [address] #### GFR #### [address] [address] Potassium [Moles/Vol] 4.3 mmol/L Normal 3.5-5.1 [facility] ([place]) Comment on above: Performed By: #### C MICHELLE CHRISTIAN ANEU, BMP #### [address] [address] #### GFR #### [address] [address] Sodium [Moles/Vol] 142 mmol/L Normal 136-145 [facility] ([place]) Comment on above: Performed By: #### C MICHELLE CHRISTIAN ANEU, BMP #### [address] [address] #### GFR #### [address] [address] Urea nitrogen [Mass/Vol] 29 mg/dL High 7-18 [facility] ([place]) Comment on above: Performed By: #### C MICHELLE CHRISTIAN ANEU, BMP #### [address] [address] #### GFR #### [address] [address] CBCon 01-15-2021 Erythrocyte distribution width (RBC) [Ratio] 15.3 % High 11.5-14.5 [facility] ([place]) Comment on above: Order Comment: Pre-A dmission Testing Performed By: #### C BC, ADIFF, ANEU, BMP #### [address] [address] #### GFR #### [address] [address] Hematocrit (Bld) [Volume fraction] 38.0 % Low 42.0-52.0 [facility] ([place]) Comment on above: Order Comment: Pre-A dmission Testing Performed By: #### C BC, ADIFF, ANEU, BMP #### [place] [address] #### GFR #### [place] [address] Hgb 13.0 G/dL Low 14.0-18.0 [facility] ([place]) Comment on above: Order Comment: Pre-A dmission Testing Performed By: #### C BC, ADIFF, ANEU, BMP #### [place] [address] #### GFR #### [address] [address] MCH (RBC) [Entitic mass] 32.7 pg High 27.0-31.2 [facility] ([place]) Comment on above: Order Comment: Pre-A dmission Testing Performed By: #### C BC, ADIFF, ANEU, BMP #### [place] [address] #### GFR #### [place] [address] MCHC 34.3 G/dL Normal 31.8-35.4 [facility] ([place]) Comment on above: Order Comment: Pre-A dmission Testing Performed By: #### C BC, ADIFF, ANEU, BMP #### [place] [address] #### GFR #### [facility] [address] [place], [place] [address] MCV (RBC) [Entitic vol] 95.3 fL High 80.0-94.0 [facility] ([place]) Comment on above: Order Comment: Pre-A dmission Testing Performed By: #### C BC, ADIFF, ANEU, BMP #### [place] [address] #### GFR #### [place] [address] Platelet 229 10 3/mcL Normal 130-400 [facility] ([place]) Comment on above: Order Comment: Pre-A dmission Testing Performed By: #### C BC, ADIFF, ANEU, BMP #### [place] [address] #### GFR #### [place] [address] Platelet mean volume (Bld) [Entitic vol] 7.9 fL Normal 7.4-10.4 [facility] ([place] Comment on above: Order Comment: Pre-A dmission Testing Performed By: #### C BC, ADIFF, ANEU, BMP #### [place] [address] #### GFR #### [place] [address] RBC 3.98 10 6/mcL Low 4.04-6.13 [facility] ([place] Comment on above: Order Comment: Pre-A dmission Testing Performed By: #### C BC, ADIFF, ANEU, BMP #### [place] [address] #### GFR #### [place] [address] WBC 6.40 10 3/mcL Normal 4.60-10.80 [facility] ([place]) Comment on above: Order Comment: Pre-A dmission Testing Performed By: #### C BC, ADIFF, ANEU, BMP #### [place] [address] #### GFR #### [place] [address] XR CHEST 2 VIEWSon XR CHEST 2 VIEWS ORIGINAL XR CHEST 2 VIEWS CLINICAL STATEMENT: Pre-admission testing. COMPARISON: None FINDINGS: The heart is not enlarged. RIGHT chest pacemaker has 2 leads, overlying the RIGHT atrium and RIGHT ventricle. Coronary artery stent is visible. Lungs are mildly hyperinflated. There is no vascular congestion or focal infiltrate. IMPRESSION: No acute process. Interpreted By: Katerine Barroso MD Preliminary Report By: Katerine Barroso MD Electronically Signed By: Katerine Barroso MD Dictated Date: 01/15/2021 12:59:40 PM Prelim Date: 01/15/2021 12:59:40 PM Sign Date: 01/15/2021 1:00:26 PM Ordering Provider:Uma Israel Normal [facility] ([place]) CT-CTA Head AND Neck W/ Cont rast IMPORTon 12-23-2020 CT-CTA Head AND Neck W/ Contrast IMPORT Images were obtained outside of [facility] [id number] Normal [facility] OT-Chest 1 View IMPORTon OT-Chest 1 View IMPORT Images were obtai lay outside of [facility] [id number] Normal [facility] SR-STROKE Brain/Head without Cont IMPORTon 12-22-2020 SR-STROKE Brain/Head without Cont IMPORT Images were obtained outside of [facility] [id number] Normal [facility] US-Kidney and Bladder IMPORT on 12-20-2020 US-Kidney and Bladder IMPORT Images were obtained outside of [facility] [id number] Normal [facility] US EXTREMITY NON-VASCULAR RI [facility] 11-27-2020 US EXTREMITY NON-VASCULAR RIGHT ORIGINAL US EXTREMITY NON-VASCULAR RIGHT , attention RIGHT shoulder/rotator cuff CLINICAL STATEMENT: UNSPECIFIED SPRAN RIGHT SHOULDER JOINT , shoulder injury with severely limited range of motion COMPARISON: None FINDINGS: The long biceps tendon is moderately thickened with mildly heterogeneous and increased intrasubstance echogenicity. This is consistent with tendinopathy but no partial or full-thickness tear is seen. There is a small amount of fluid surrounding the tendon. The tendon is medially subluxed from the bicipital groove and is perched on the lesser tuberosity. There is poor visualization of the subscapularis tendon which suggests a high-grade full-thickness tear with retraction. There is moderate fluid in the expected location of the tendon. There is a complete tear of the distal supraspinatus tendon which is retracted by at least 4 cm from the greater tuberosity. No high-grade tear of the infraspinatus tendon is seen. There is [id number] fluid in the subacromial and subdeltoid bursa. Moderate AC joint arthrosis. IMPRESSION: There is a complete retracted tear of the supraspinatus tendon. Suspect high-grade/full-thickness tear of the subscapularis tendon with retraction also. Long biceps tendinopathy with medial subluxation of the tendon as described. Interpreted By: Alexis Mercer MD Preliminary Report By: Alexis Mercer MD Electronically Signed By: Alexis Mercer MD Dictated Date: 11/27/2020 11:51:27 AM Prelim Date: 11/27/2020 11:51:27 AM Sign Date: 11/27/2020 11:54:04 AM Ordering Provider:Justin Kang [facility] ([place]) Therapy Communicationon 03-1 Erythrocyte distribution width (RBC) [Ratio] Message BRIGETTE DOLLNCHARD was (D/C)- last seen: 06/01/20. Patient was placed on hold from PT until he finished his vision therapy-no return to therapy and therefore discharged d/t greater than 30 day lapse in PT services. Signatures Electronically signed by : Fartun Mendoza, PT; Oct 17 2020 10:06AM EST (Author) Normal [facility] HIP, UNILATERAL W/PELVIS WHE N PERFORMED 2-3 VIEWSon 12-16-2019 HIP, UNILATERAL W/PELVIS WHEN PERFORMED 2-3 VIEWS Patient Name: CHELSIE BRIGETTE STUDY: LeftHIP, UNILATERAL W/PELVIS WHEN PERFORMED 2-3 VIEWS; 12/16/2019 1:28 pm INDICATION: PAIN IN LEFT HIP. COMPARISON: None. ACCESSION NUMBER(S): [id number] ORDERING CLINICIAN: ARGENIS SHARP FINDINGS: Bony structures: An exostosis projects laterally from the central aspect of the left iliac bone. Status post lower lumbar laminectomies with hardware fusion. Otherwise the bony structures are intact. Joint spaces: The hip joint spaces maintained. There is minimal osteophytic lipping at the hip inferiorly. Similar mild osteoarthritis is noted at the right hip. The sacroiliac joints and pubic symphysis are maintained Soft tissues: Unremarkable without significant edema or radiodense foreign body Other: None significant IMPRESSION: Minimal osteoarthritis. Electronically signed by: PARESH FLETCHER MD Normal [facility] Other 12-16-2019 Interpreted by: PARESH FLETCHER12/16/19 13:32MRN: [id number] Name: BRIGETTE HOLGUIN STUDY:LeftHIP, UNILATERAL W/PELVIS WHEN PERFORMED 2-3 VIEWS; 12/16/2019 1:28pm INDICATION:PAIN IN LEFT HIP. COMPARISON:None. ORDERING CLINICIAN:ARGENIS SHARP FINDINGS:Bony structures: An exostosis projects laterally [...] or radiodenseforeign body Other: None significant IMPRESSION:Minimal osteoarthritis.Electronic ally signed by: PARESH FLETCHER 12/16/19 13:32 [facility] Work Phone: Comment on above: Ordering Provider: Virgie SHARP [id number] ECG B/O W INTERP (MED OFFICE ) [facility] Vital Signs Date Time Vital Sign Value Performing Clinician Faci lity 05-10-2025 08:33-0400 Body height 175.[address] Paresh Carranza MD Work Phone: [facility] 05-10-2025 08:33-0400 Body mass index (BMI) [Ratio] 24.2 kg/m2 Dr. Paresh Carranza MD Work Phone: [facility] 05-10-2025 08:33-0400 Body weight 74.[address] Paresh Carranza MD Work Phone: [facility] 05-10-2025 08:33-0400 Diastolic blood pressure 83 mm[Hg] Dr. Paresh Carranza MD Work Phone: 1(114)164-411570 [place] [address] 05-10-2025 08:33-0400 Heart rate 75 /min Dr. Paresh Carranza MD Work Phone: 0(936)991-769040 [place] [address] 05-10-2025 08:33-0400 Respiratory rate 18 /min Dr. Paresh Carranza MD Work Phone: 8(575)156-069940 [place] [address] 05-10-2025 08:33-0400 SaO2% (BldA) [Mass fraction] 98 % Dr. Paresh Carranza MD Work Phone: 8(660)833-350040 [place] [address] 05-10-2025 08:33-0400 Systolic blood pressure 123 mm[Hg] Dr. Paresh Carranza MD Work Phone: 4(759)256-719540 [place] [address] 04-15-2025 15:10-0400 Diastolic blood pressure 70 mm[Hg] Dr. Paresh Carranza MD Work Phone: 5(666)235-303840 [place] [address] 04-15-2025 15:10-0400 Heart rate 115 /min Dr. Paresh Carranza MD Work Phone: 6(981)716-950640 [place] [address] 04-15-2025 15:10-0400 Respiratory rate 16 /min Dr. Paresh Carranza MD Work Phone: 8(678)449-713440 [place] [address] 04-15-2025 15:10-0400 SaO2% (BldA) [Mass fraction] 97 % Dr. Paresh Carranza MD Work Phone: 5(435)072-602640 [place] [address] 04-15-2025 15:10-0400 Systolic blood pressure 113 mm[Hg] Dr. Paresh Carranza MD Work Phone: 7(522)366-667440 [place] [address] 01-05-2025 09:23-0400 Body height 175.[address] Paresh Carranza MD Work Phone: 7(941)002-299940 [place] [address] 01-05-2025 09:23-0400 Body mass index (BMI) [Ratio] 25.2 kg/m2 Dr. Paresh Carranza MD Work Phone: 4(391)809-940440 [place] [address] 01-05-2025 09:23-0400 Body weight 77.[address] Paresh Carranza MD Work Phone: [facility] 01-05-2025 09:23-0400 Diastolic blood pressure 71 mm[Hg] Dr. Paresh Carranza MD Work Phone: 6(531)663-096640 [place] [address] 01-05-2025 09:23-0400 Heart rate 59 /min Dr. Paresh Carranza MD Work Phone: 6(345)315-617140 [place] [address] 01-05-2025 09:23-0400 Respiratory rate 14 /min Dr. Paresh Carranza MD Work Phone: 4(115)048-785640 [place] [address] 01-05-2025 09:23-0400 Systolic blood pressure 152 mm[Hg] Dr. Paresh Carranza MD Work Phone: 0(432)451-823440 [place] [address] 12-31-2024 09:32-0400 Body height 175.[address] Paresh Carranza MD Work Phone: 6(585)655-613240 [place] [address] 12-31-2024 09:32-0400 Body mass index (BMI) [Ratio] 25.7 kg/m2 Dr. Paresh Carranza MD Work Phone: 6(202)746-412240 [place] [address] 12-31-2024 09:32-0400 Body weight 79.[address] Paresh Carranza MD Work Phone: 7(759)508-073940 [place] [address] 11-08-2024 10:42-0400 Body height 175.[address] Paresh Carranza MD Work Phone: 4(127)124-080340 [place] [address] 11-08-2024 10:40-0400 Body mass index (BMI) [Ratio] 25.9 kg/m2 Dr. Paresh Carranza MD Work Phone: 6(800)755-528770 [place] [address] 11-08-2024 10:40-0400 Body weight 79.[address] Paresh Carranza MD Work Phone: 5(791)170-525740 [place] [address] 11-08-2024 10:40-0400 Diastolic blood pressure 82 mm[Hg] Dr. Paresh Carranza MD Work Phone: 7(683)923-771440 [place] [address] 11-08-2024 10:40-0400 Heart rate 70 /min Dr. Paresh Carranza MD Work Phone: [facility] 11-08-2024 10:40-0400 Respiratory rate 18 /min Dr. Paresh Carranza MD Work Phone: [facility] 11-08-2024 10:40-0400 SaO2% (BldA) [Mass fraction] 99 % Dr. Paresh Carranza MD Work Phone: [facility] 11-08-2024 10:40-0400 Systolic blood pressure 125 mm[Hg] Dr. Paresh Carranza MD Work Phone: [facility] 10-28-2023 15:47-0400 Body height 175.[address] Paresh Carranza Work Phone: 4(193)197-297770 [place] [address] 10-28-2023 15:47-0400 Body mass index (BMI) [Ratio] 25.5 kg/m2 Dr. Paresh Carranza Work Phone: [facility] 10-28-2023 15:47-0400 Body weight 78.[address] Paresh Carranza Work Phone: [facility] 10-28-2023 15:47-0400 Diastolic blood pressure 83 mm[Hg] Dr. Paresh Carranza Work Phone: [facility] 10-28-2023 15:47-0400 Heart rate 60 /min Dr. Paresh Carranza Work Phone: [facility] 10-28-2023 15:47-0400 Respiratory rate 16 /min Dr. Paresh Carranza Work Phone: [facility] 10-28-2023 15:47-0400 Systolic blood pressure 153 mm[Hg] Dr. Paresh Carranza Work Phone: [facility] 06-23-2023 17:17-0500 Body temperature 97.3 [degF] Dr. Paresh Carranza Work Phone: [facility] 06-23-2023 17:17-0500 Diastolic blood pressure 77 mm[Hg] Dr. Paresh Carranza Work Phone: [facility] 06-23-2023 17:17-0500 Heart rate 75 /min Dr. Paresh Carranza Work Phone: [facility] 06-23-2023 17:17-0500 Respiratory rate 16 /min Dr. Paresh Carranza Work Phone: [facility] 06-23-2023 17:17-0500 SaO2% (BldA) [Mass fraction] 97 % Dr. Paresh Carranza Work Phone: [facility] 06-23-2023 17:17-0500 Systolic blood pressure 159 mm[Hg] Dr. Paresh Carranza Work Phone: [facility] 06-23-2023 13:31-0500 Body height 175.[address] Paresh Carranza Work Phone: [facility] 06-23-2023 13:31-0500 Body mass index (BMI) [Ratio] 22.8 kg/m2 Dr. Paresh Carranza Work Phone: [facility] 06-23-2023 13:31-0500 Body weight [address] Paresh Carranza Work Phone: [facility] 04-23-2023 10:51-0400 Body height 175.3 cm Viktoriya Marcial MD Work Phone: [facility] 04-23-2023 10:51-0400 Body weight 70.31 kg Viktoriya Marcial MD Work Phone: [facility] 04-23-2023 10:51-0400 Diastolic blood pressure 70 mm[Hg] Viktoriya Marcial MD Work Phone: [facility] 04-23-2023 10:51-0400 Heart rate 60 /min Viktoriya Marcial MD Work Phone: [facility] 04-23-2023 10:51-0400 SaO2% (BldA) [Mass fraction] 96 % Viktoriya Marcial MD Work Phone: [facility] 04-23-2023 10:51-0400 Systolic blood pressure 124 mm[Hg] Viktoryia Marcial MD Work Phone: [facility] 03-31-2023 15:59-0400 Body weight 70.[address] Paresh Carranza Work Phone: [facility] 03-31-2023 15:59-0400 Diastolic blood pressure 83 mm[Hg] Dr. Paresh Carranza Work Phone: [facility] 03-31-2023 15:59-0400 Heart rate 59 /min Dr. Paresh Carranza Work Phone: [facility] 03-31-2023 15:59-0400 Respiratory rate 16 /min Dr. Paresh Carranza Work Phone: [facility] 03-31-2023 15:59-0400 Systolic blood pressure 142 mm[Hg] Dr. Paresh Carranza Work Phone: [facility] 03-31-2023 15:57-0400 Body height 175.[address] Paresh Carranza Work Phone: [facility] 09-09-2022 16:04-0500 Body height 175.[address] Paresh Carranza Work Phone: [facility] 09-09-2022 15:44-0500 Body mass index (BMI) [Ratio] 24.3 kg/m2 Dr. Paresh Carranza Work Phone: [facility] 09-09-2022 15:44-0500 Body weight 74.[address] Paresh Carranza Work Phone: [facility] 09-09-2022 15:44-0500 Diastolic blood pressure 85 mm[Hg] Dr. Paresh Carranza Work Phone: [facility] 09-09-2022 15:44-0500 Heart rate 60 /min Dr. Paresh Carranza Work Phone: [facility] 09-09-2022 15:44-0500 Respiratory rate 18 /min Dr. Paresh Carranza Work Phone: [facility] 09-09-2022 15:44-0500 SaO2% (BldA) [Mass fraction] 99 % Dr. Paresh Carranza Work Phone: [facility] 09-09-2022 15:44-0500 Systolic blood pressure 154 mm[Hg] Dr. Paresh Carranza Work Phone: [facility] 06-03-2022 15:41-0400 Body mass index (BMI) [Ratio] 23.6 kg/m2 Dr. Paresh Carranza Work Phone: [facility] 06-03-2022 15:41-0400 Body weight 72.[address] Paresh Carranza Work Phone: [facility] 06-03-2022 15:41-0400 Diastolic blood pressure 78 mm[Hg] Dr. Paresh Carranza Work Phone: [facility] 06-03-2022 15:41-0400 Heart rate 60 /min Dr. Paresh Carranza Work Phone: [facility] 06-03-2022 15:41-0400 Respiratory rate 14 /min Dr. Paresh Carranza Work Phone: [facility] 06-03-2022 15:41-0400 Systolic blood pressure 159 mm[Hg] Dr. Paresh Carranza Work Phone: [facility] 01-09-2022 08:34-0400 Body height 175.[address] Reshma Arreola Work Phone: [facility] Work Phone: 01-09-2022 08:34-0400 Body mass index (BMI) [Ratio] 23.7 kg/m2 Dr. Reshma Arreola Work Phone: [facility] Work Phone: 01-09-2022 08:34-0400 Body temperature 98.7 [degF] Dr. Reshma Arreola Work Phone: [facility] Work Phone: 01-09-2022 08:34-0400 Body weight 72.[address] Reshma Arreola Work Phone: [facility] Work Phone: 01-09-2022 08:34-0400 Diastolic blood pressure 80 mm[Hg] Dr. Reshma Arreola Work Phone: [facility] Work Phone: 01-09-2022 08:34-0400 Heart rate 60 /min Dr. Reshma Arreola Work Phone: [facility] Work Phone: 01-09-2022 08:34-0400 Respiratory rate 16 /min Dr. Reshma Arreola Work Phone: [facility] Work Phone: 01-09-2022 08:34-0400 SaO2% (BldA) [Mass fraction] 99 % Dr. Reshma Arreola Work Phone: [facility] Work Phone: 01-09-2022 08:34-0400 Systolic blood pressure 138 mm[Hg] Dr. Reshma Arreola Work Phone: [facility] Work Phone: 01-02-2022 10:05-0400 Body mass index (BMI) [Ratio] 24.7 kg/m2 Dr. Reshma Arreola Work Phone: [facility] Work Phone: 01-02-2022 10:05-0400 Body temperature 97.8 [degF] Dr. Reshma Arreola Work Phone: [facility] Work Phone: 01-02-2022 10:05-0400 Body weight 76.[address] Reshma Arreola Work Phone: [facility] Work Phone: 01-02-2022 10:05-0400 Diastolic blood pressure 82 mm[Hg] Dr. Reshma Arreola Work Phone: [facility] Work Phone: 01-02-2022 10:05-0400 Heart rate 61 /min Dr. Reshma Arreola Work Phone: [facility] Work Phone: 01-02-2022 10:05-0400 Respiratory rate 14 /min Dr. Reshma Arreola Work Phone: [facility] Work Phone: 01-02-2022 10:05-0400 SaO2% (BldA) [Mass fraction] 99 % Dr. Reshma Arreola Work Phone: [facility] Work Phone: 01-02-2022 10:05-0400 Systolic blood pressure 138 mm[Hg] Dr. Reshma Arreola Work Phone: [facility] Work Phone: 01-02-2022 10:05-0400 Body height 175.[address] Reshma Arreola Work Phone: [facility] Work Phone: 01-02-2022 10:05-0400 Body mass index (BMI) [Ratio] 24.7 kg/m2 Dr. Reshma Arreola Work Phone: [facility] Work Phone: 01-02-2022 10:05-0400 Body temperature 97.8 [degF] Dr. Reshma Arreola Work Phone: [facility] Work Phone: 01-02-2022 10:05-0400 Body weight 76.[address] Reshma Arreola Work Phone: [facility] Work Phone: 01-02-2022 10:05-0400 Diastolic blood pressure 82 mm[Hg] Dr. Reshma Arreola Work Phone: [facility] Work Phone: 01-02-2022 10:05-0400 Heart rate 61 /min Dr. Reshma Arreola Work Phone: [facility] Work Phone: 01-02-2022 10:05-0400 Respiratory rate 14 /min Dr. Reshma Arreola Work Phone: [facility] Work Phone: 01-02-2022 10:05-0400 SaO2% (BldA) [Mass fraction] 99 % Dr. Reshma Arreola Work Phone: [facility] Work Phone: 01-02-2022 10:05-0400 Systolic blood pressure 138 mm[Hg] Dr. Reshma Arreola Work Phone: [facility] Work Phone: 11-27-2021 21:02-0400 Heart rate 78 /min Dr. Reshma Arreola Work Phone: [facility] Work Phone: 11-27-2021 21:02-0400 Respiratory rate 17 /min Dr. Reshma Arreola Work Phone: [facility] Work Phone: 11-27-2021 21:02-0400 SaO2% (BldA) [Mass fraction] 99 % Dr. Reshma Arreola Work Phone: [facility] Work Phone: 11-27-2021 20:23-0400 Body height 175.[address] Reshma Arreola Work Phone: [facility] Work Phone: 11-27-2021 20:23-0400 Body mass index (BMI) [Ratio] 24.3 kg/m2 Dr. Reshma Arreola Work Phone: [facility] Work Phone: 11-27-2021 20:23-0400 Body temperature 96.3 [degF] Dr. Reshma Arreola Work Phone: [facility] Work Phone: 11-27-2021 20:23-0400 Body weight 74.[address] Reshma Arreola Work Phone: [facility] Work Phone: 11-27-2021 20:23-0400 Diastolic blood pressure 89 mm[Hg] Dr. Reshma Arreola Work Phone: [facility] Work Phone: 11-27-2021 20:23-0400 Systolic blood pressure 166 mm[Hg] Dr. Reshma Arreola Work Phone: [facility] Work Phone: 10-11-2021 13:57-0500 Body mass index (BMI) [Ratio] 25.2 kg/m2 Dr. Reshma Arreola Work Phone: [facility] Work Phone: 10-11-2021 13:57-0500 Body weight 77.[address] Reshma Arreola Work Phone: [facility] Work Phone: 10-11-2021 13:57-0500 Diastolic blood pressure 76 mm[Hg] Dr. Reshma Arreola Work Phone: [facility] Work Phone: 10-11-2021 13:57-0500 Heart rate 80 /min Dr. Reshma Arreola Work Phone: [facility] Work Phone: 10-11-2021 13:57-0500 Respiratory rate 18 /min Dr. Reshma Arreola Work Phone: [facility] Work Phone: 10-11-2021 13:57-0500 SaO2% (BldA) [Mass fraction] 100 % Dr. Rsehma Arreoal Work Phone: [facility] Work Phone: 10-11-2021 13:57-0500 Systolic blood pressure 138 mm[Hg] Dr. Reshma Arreola Work Phone: [facility] Work Phone: 10-11-2021 12:57-0500 Body height 175.[address] Reshma Arreola Work Phone: [facility] Work Phone: 10-11-2021 12:57-0500 Body mass index (BMI) [Ratio] 25.2 kg/m2 Dr. Reshma Arreola Work Phone: [facility] Work Phone: 10-11-2021 12:57-0500 Body weight 77.[address] Reshma Arreola Work Phone: [facility] Work Phone: 10-11-2021 12:57-0500 Diastolic blood pressure 76 mm[Hg] Dr. Reshma Arreola Work Phone: [facility] Work Phone: 10-11-2021 12:57-0500 Heart rate 80 /min Dr. Reshma Arreola Work Phone: [facility] Work Phone: 10-11-2021 12:57-0500 Respiratory rate 18 /min Dr. Reshma Arreola Work Phone: [facility] Work Phone: 10-11-2021 12:57-0500 SaO2% (BldA) [Mass fraction] 100 % Dr. Reshma Arreola Work Phone: [facility] Work Phone: 10-11-2021 12:57-0500 Systolic blood pressure 138 mm[Hg] Dr. Reshma Arreola Work Phone: [facility] Work Phone: 09-19-2021 08:42-0500 Body mass index (BMI) [Ratio] 25.1 kg/m2 Dr. Reshma Arreola Work Phone: [facility] Work Phone: 09-19-2021 08:42-0500 Body temperature 98.6 [degF] Dr. Reshma Arreola Work Phone: [facility] Work Phone: 09-19-2021 08:42-0500 Body weight 77.[address] Reshma Arreola Work Phone: [facility] Work Phone: 09-19-2021 08:42-0500 Diastolic blood pressure 73 mm[Hg] Dr. Reshma Arreola Work Phone: [facility] Work Phone: 09-19-2021 08:42-0500 Heart rate 61 /min Dr. Reshma Arreola Work Phone: [facility] Work Phone: 09-19-2021 08:42-0500 Respiratory rate 16 /min Dr. Reshma Arreola Work Phone: [facility] Work Phone: 09-19-2021 08:42-0500 SaO2% (BldA) [Mass fraction] 99 % Dr. Reshma Arreola Work Phone: [facility] Work Phone: 09-19-2021 08:42-0500 Systolic blood pressure 124 mm[Hg] Dr. Reshma Arreola Work Phone: [facility] Work Phone: 09-03-2021 07:58-0500 Body mass index (BMI) [Ratio] 25.4 kg/m2 Dr. Reshma Arreola Work Phone: [facility] Work Phone: 09-03-2021 07:58-0500 Body temperature 97.4 [degF] Dr. Reshma Arreola Work Phone: [facility] Work Phone: 09-03-2021 07:58-0500 Body weight 78.[address] Reshma Arreola Work Phone: [facility] Work Phone: 09-03-2021 07:58-0500 Diastolic blood pressure 70 mm[Hg] Dr. Reshma Arreola Work Phone: [facility] Work Phone: 09-03-2021 07:58-0500 Heart rate 71 /min Dr. Reshma Arreola Work Phone: [facility] Work Phone: 09-03-2021 07:58-0500 Respiratory rate 16 /min Dr. Reshma Arreola Work Phone: [facility] Work Phone: 09-03-2021 07:58-0500 SaO2% (BldA) [Mass fraction] 99 % Dr. Reshma Arreola Work Phone: [facility] Work Phone: 09-03-2021 07:58-0500 Systolic blood pressure 124 mm[Hg] Dr. Reshma Arreola Work Phone: [facility] Work Phone: 08-15-2021 13:39-0500 Body temperature 96.7 [degF] Dr. Reshma Arreola Work Phone: [facility] Work Phone: 08-15-2021 13:39-0500 Body weight 81.[address] Reshma Arreola Work Phone: [facility] Work Phone: 08-15-2021 13:39-0500 Diastolic blood pressure 78 mm[Hg] Dr. Reshma Arreola Work Phone: [facility] Work Phone: 08-15-2021 13:39-0500 Heart rate 69 /min Dr. Reshma rAreola Work Phone: [facility] Work Phone: 08-15-2021 13:39-0500 Respiratory rate 16 /min Dr. Reshma Arreola Work Phone: [facility] Work Phone: 08-15-2021 13:39-0500 SaO2% (BldA) [Mass fraction] 99 % Dr. Reshma Arreola Work Phone: [facility] Work Phone: 08-15-2021 13:39-0500 Systolic blood pressure 150 mm[Hg] Dr. Reshma Arreola Work Phone: [facility] Work Phone: Encounters Encounter Date Encounter Type Care Provider Facility Start: 07-08-2025 ambulatory [facility] Facility:[facility] Start: 07-05-2025 ambulatory [facility] Facility:[facility] Start: 05-24-2025 ambulatory [facility] Facility:[facility] Start: 05-19-2025 ambulatory [facility] Facility:[facility] Start: 05-10-[address] Paresh Carranza MD Work Phone: [facility] Start: 05-10-2025 Patient encounter procedure Jairo Grande SHOE STAINER-C -Laboratory Work Phone: Start: 05-10-2025 ambulatory Jairo Grande SHOE STAINER Facility :[facility] Start: 05-10-2025 End: 05-10-2025 Patient encounter procedure Jairo Grande SHOE STAINER-C -[facility] Work Phone: Start: 05-10-2025 End: 05-10-2025 Patient encounter status Jairo Grande SHOE STAINER-C [facility] Start: 05-10-2025 End: 05-10-[address] Paresh Carranza MD Work Phone: -[facility] Start: 04-20-2025 End: 04-20-[address] Deangelo Rojas DO -[facility] Work Phone: Start: 04-20-2025 End: 04-20-[address] Paresh Carranza MD Work Phone: [facility] Start: 04-15-2025 End: 04-15-[address] Paresh Carranza MD Work Phone: -[facility] Start: 04-15-2025 End: 04-15-[address] Deangelo Rojas DO [facility] Work Phone: Start: 04-15-2025 End: 04-15-2025 ambulatory Paresh Carranza Facility:[facility] Start: 04-11-2025 End: 04-11-[address] Deangelo Rojas DO [facility] Work Phone: Start: 04-11-2025 End: 04-11-[address] Paresh Carranza MD Work Phone: [facility] Start: 02-02-2025 End: 02-02-[address] Paresh Carranza MD Work Phone: -Physical Therapy Start: 02-02-2025 End: 02-02-[address] Deangelo Rojas DO -Physical Therapy Work Phone: Start: 01-05-2025 End: 01-05-2025 Patient encounter procedure Jairo Grande NP-[facility] Work Phone: Start: 01-05-2025 End: 01-05-[address] Paresh Carranza MD Work Phone: [facility] Work Phone: Start: 12-31-2024 End: 12-31-[address] Chevy Rooney MD -[facility] Start: 12-31-2024 End: 12-31-[address] Paresh Carranza MD Work Phone: [facility] Work Phone: Start: 11-16-2024 ambulatory Paresh Carranza Facility:[facility] Start: 11-16-2024 Non-patient / Non-visit Dr. Chevy Rooney MD -[facility] Start: 11-16-2024 End: 11-16-[address] Paresh Carranza MD Work Phone: [facility] Work Phone: Start: 11-16-2024 End: 11-16-2024 Patient encounter procedure Jairo Grande SHOE STAINER-C -Cardiovascular Services Work Phone: Start: 11-16-2024 End: 11-16-2024 ambulatory Jairo Grande SHOE STAINER Facility:[facility] Start: 11-08-2024 End: 11-08-2024 Patient encounter procedure Jairo Grande SHOE STAINER-C -Laboratory Work Phone: Start: 11-08-2024 End: 11-08-2024 ambulatory Paresh Carranza Facility:[facility] Start: 11-08-2024 End: 11-08-[address] Paresh Carranza MD Work Phone: [facility] Work Phone: Start: 11-08-2024 End: 11-08-2024 Patient encounter procedure Argenis Mcgee [facility] Work Phone: Start: 11-08-2024 End: 11-08-2024 ambulatory Jairo Grande SHOE STAINER Facility:[facility] Start: 10-21-2024 End: 10-21-[address] Paresh Carranza MD Work Phone: [facility] Work Phone: Start: 10-21-2024 End: 10-21-[address] Paresh Carranza MD -[facility]patient [facility] Work Phone: Start: 10-21-2024 End: 10-21-2024 ambulatory Paresh Carranza Facility:[facility] Start: 11-25-2023 End: 11-25-2023 Transcribe Orders Gladys Han Work Phone: [facility] Comment on above: Dyspnea, unspecified type Start: 11-20-2023 End: 11-20-[address] Paresh Carranza Work Phone: [facility] Work Phone: Start: 11-20-2023 End: 11-20-[address] [facility] Start: 10-28-2023 End: 10-28-[address] Paresh Carranza Work Phone: [facility] Work Phone: Start: 09-15-2023 End: 09-15-[address] Paresh Carranza Work Phone: [facility] Work Phone: Start: 09-15-2023 End: 09-15-[address] [facility] Start: 08-07-2023 End: 08-07-[address] Paresh Carranza Work Phone: [facility] Work Phone: Start: 07-09-2023 End: 07-09-[address] Paresh Carranza Work Phone: [facility] Work Phone: Start: 06-23-2023 End: 06-23-2023 Admission to same day surgery center Dr. Paresh Carranza Work Phone: [facility]-Surgical Day Care Start: 06-23-2023 End: 06-23-[address] Paresh Carranza Work Phone: [facility] Work Phone: Start: 06-20-2023 Follow-up encounter Viktoriya Marcial MD Work Phone: [facility] Start: 06-20-2023 Patient encounter procedure Viktoriya Marcial MD Work Phone: [place] [facility] Start: 06-19-2023 End: 06-20-2023 Evaluation and management of inpatient PARESH CARRANZA Facility:[facility] Start: 06-16-2023 End: 06-16-2023 ambulatory PARESH CARRANZA Facility:[facility] Start: 06-12-2023 End: 06-12-2023 Non-patient / Non-visit Dr. Paresh Carranza Work Phone: [facility] Work Phone: Start: 05-19-2023 End: 05-19-[address] Paresh Carranza Work Phone: [facility] Work Phone: Start: 05-19-2023 End: 05-19-[address] Paresh Carranza Work Phone: [facility] Start: 04-23-2023 End: 04-23-2023 ambulatory VIKTORIYA MARCIAL Facility:[facility] Start: 04-23-2023 End: 04-23-2023 Patient encounter procedure Viktoriya Marcial MD Work Phone: [facility] [place] Comment on above: Pacemaker lead malfu nction, initial encounter (Primary Dx); Presence of cardiac pacemaker; Sinus node dysfunction (HCC); Paroxysmal atrial fibrillation (HCC) Start: 03-31-2023 End: 03-31-[address] Paresh Carranza Work Phone: [facility] Work Phone: Start: 03-31-2023 End: 03-31-[address] Paresh Carranza Work Phone: [facility]-Radiology, [facility] Work Phone: Start: 03-31-2023 End: 03-31-[address] Paresh Carranza Work Phone: [facility] Work Phone: Start: 03-12-2023 End: 03-12-[address] Paresh Carranza Work Phone: [facility] Work Phone: Start: 03-12-2023 End: 03-12-[address] Paresh Carranza Work Phone: [facility] Start: 03-05-2023 End: 03-05-[address] Paresh Carranza Work Phone: [facility] Work Phone: Start: 03-05-2023 End: 03-05-[address] Paresh Carranza Work Phone: [facility]-Cat Scan, [facility] Work Phone: Start: 12-26-2022 End: 12-26-[address] Paresh Carranza Work Phone: [facility] Work Phone: Start: 12-26-2022 End: 12-26-[address] Paresh Carranza Work Phone: [facility]-Radiology, [facility] Work Phone: Start: 12-16-2022 End: 12-16-[address] Paresh Carranza Work Phone: [facility] Work Phone: Start: 11-18-2022 End: 11-18-[address] Paresh Carranza Work Phone: [facility] Work Phone: Start: 11-18-2022 End: 11-18-[address] Paresh Carranza Work Phone: [facility] Start: 10-03-2022 End: 10-03-[address] Paresh Carranza Work Phone: [facility] Work Phone: Start: 10-03-2022 End: 10-03-[address] Paresh Carranza Work Phone: [facility] Start: 09-09-2022 End: 09-09-[address] Paresh Carranza Work Phone: [facility] Work Phone: Start: 09-09-2022 End: 09-09-[address] Paresh Carranza Work Phone: [facility] Start: 09-09-2022 End: 09-09-[address] Paresh Carranza Work Phone: [facility] Start: 06-03-2022 End: 06-03-[address] Paresh Carranza Work Phone: [facility] Start: 05-20-2022 End: 05-20-2022 ambulatory [facility] Work Phone: Start: 05-20-2022 End: 05-20-2022 Patient encounter procedure [facility] Start: 01-31-2022 End: 01-31-[address] Reshma Arreola Work Phone: [facility] Start: 01-09-2022 End: 01-09-[address] Reshma Arreola Work Phone: [facility], Specimen Start: 01-09-2022 End: 01-09-[address] Reshma Arreola Work Phone: [facility] Internal Medicine Start: 01-02-2022 End: 01-02-[address] Reshma Arreola Work Phone: [facility], [place] Start: 01-02-2022 End: 01-02-[address] Reshma Arreola Work Phone: [facility] Internal Medicine Start: 12-07-2021 End: 12-07-[address] Reshma Arreola Work Phone: [facility] Internal Medicine Start: 11-27-2021 End: 11-27-2021 Emergency department patient visit Dr. Reshma Arreola Work Phone: [facility]-Emergency Department Start: 11-22-2021 End: 11-22-[address] Reshma Arreola Work Phone: [facility] Start: 11-22-2021 End: 11-22-[address] [facility] Start: 11-08-2021 Non-patient / Non-visit Dr. Reshma Arreola Work Phone: [facility] Start: 11-08-2021 End: 11-08-[address] Reshma Arreola Work Phone: [facility]-Cardiovascul ar Services Start: 10-30-2021 Non-patient / Non-visit Dr. Reshma Arreola Work Phone: [facility] Start: 10-29-2021 End: 10-29-[address] Reshma Arreola Work Phone: [facility]-Cardiovascul ar Services Start: 10-11-2021 End: 10-11-[address] Reshma Arreola Work Phone: [facility], [facility] Start: 10-11-2021 End: 10-11-[address] Reshma Arreola Work Phone: [facility] Start: 10-08-2021 End: 10-08-[address] Reshma Arreola Work Phone: [facility] Internal Medicine Start: 09-19-2021 End: 09-19-[address] Reshma [facility]ola [facility] Start: 09-10-2021 End: 09-10-[address] Resham Arreola Work Phone: [facility] Internal Medicine Start: 09-03-2021 End: 09-03-[address] Reshma Arreola Work Phone: [facility] Radiology Start: 09-03-2021 End: 09-03-[address] Reshma Arreola Work Phone: [facility] Internal Medicine Start: 08-15-2021 Non-patient / Non-visit Dr. Reshma Arreola Work Phone: [facility] Start: 08-15-2021 End: 08-15-[address] Reshma Arreola Work Phone: [facility]-Cardiovascul ar Services Start: 08-10-2021 End: 08-10-[address] Reshma Arreola Work Phone: [facility] Internal Medicine Start: 08-31-2020 Patient encounter procedure HARINDER ROSENBAUM Facility:[facility] Start: 08-16-2020 Patient encounter procedure HARINDER ROSENBAUM Facility:[facility] Start: 06-16-2020 Patient encounter procedure HARINDER ROSENBAUM Facility:[facility] Start: 05-22-2020 Patient encounter procedure [facility] Work Phone: Start: 05-19-2020 Patient encounter procedure [facility] Work Phone: Start: 05-17-2020 Patient encounter procedure Gladys [facility] Work Phone: Start: 05-16-2020 Patient encounter procedure HARINDER Zavaleta HANNA ILSA Facility:[facility] Start: 05-15-2020 Patient encounter procedure [facility]ys [facility] Work Phone: Start: 05-12-2020 Patient encounter procedure Gladys [facility] Work Phone: Start: 05-10-2020 Patient encounter procedure Gladys [facility] Work Phone: Start: 05-08-2020 Patient encounter procedure Gladys [facility] Work Phone: Start: 05-04-2020 Patient encounter procedure Gladys [facility] Work Phone: Start: 04-03-2020 Patient encounter procedure HARINDER Zavaleta HANNAALICE CHOWDHURYREBECCA Facility:[facility] Start: 03-01-2020 Patient encounter procedure HARINDER Zavaleta HANNAALICE CHOWDHURYREBECCA Facility:[facility] Start: 02-29-2020 Patient encounter procedure [facility]ys [facility] Work Phone: Start: 02-25-2020 Patient encounter procedure Gladys [facility] Work Phone: Start: 02-23-2020 Patient encounter procedure Gladys [facility] Work Phone: Start: 02-17-2020 Patient encounter procedure Gladys [facility] Work Phone: Start: 02-15-2020 Patient encounter procedure Gladys [facility] Work Phone: Start: 02-10-2020 Patient encounter procedure Gladys [facility] Work Phone: Start: 02-08-2020 Patient encounter procedure Gladys [facility] Work Phone: Start: 02-03-2020 Patient encounter procedure Gladys [facility] Work Phone: Start: 02-02-2020 Patient encounter procedure HARINDER ROSENBAUM Facility:[facility] Start: 02-01-2020 Patient encounter procedure Gladys [facility] Work Phone: Start: 01-25-2020 Patient encounter procedure Fartun [facility] Work Phone: Start: 01-20-2020 Patient encounter procedure Fartun [facility] Work Phone: Start: 01-17-2020 Patient encounter procedure F[facility]un [facility] Work Phone: Start: 01-14-2020 Patient encounter procedure [facility]un [facility] Work Phone: Start: 01-12-2020 Patient encounter procedure F[facility]un [facility] Work Phone: Start: 01-10-2020 Patient encounter procedure F[facility]un [facility] Work Phone: Start: 01-07-2020 Patient encounter procedure F[facility]un [facility] Work Phone: Start: 01-06-2020 Patient encounter procedure [facility]un [facility] Work Phone: Start: 01-03-2020 Patient encounter procedure F[facility]un [facility] Work Phone: Start: 12-31-2019 Patient encounter procedure [facility]aa [facility] Work Phone: Start: 12-30-2019 Patient encounter procedure [facility] Work Phone: Procedures Date Procedure Procedure Detail Performing Clinician Start: 04-15-2025 MRI of joint of lowe r extremity Dr. Paresh Carranza MD Work Phone: Start: 12-31-2024 Plain x-ray of pelvi s and lower extremity Dr. Paresh Carranza MD Work Phone: Start: 12-31-2024 X-ray of lumbar spin e, two or three views Dr. Paresh Carranza MD Work Phone: Start: 11-16-2024 Cardiovascular stres s test using pharmacologic stress agent Dr. Paresh Carranza MD Work Phone: Start: 10-21-2024 Dual energy X-ray absorptiometry Dr. Paresh Carranza MD Work Phone: Start: 11-25-2023 Radiologic exam ches t 2 views Gladys Nabilkriss Han Work Phone: Start: 09-15-2023 Plain chest X-ray Dr. Tanner Carranza Work Phone: Start: 06-23-[address] Tanner Carranza Work Phone: Start: 06-20-2023 PACEMAKER CLINIC CHECK Viktoriya Marcial MD Work Phone: Start: 06-19-2023 Antibody screen PARESH FRITZ Comment on above: Order Comment: Speci men Type: BLOOD SPECIMENOrdering Facility: [facility] Address: [address] [place] [address] Performed By: #### T SCR ####[facility] BLOOD BANKCLIA [id number] [place] [address] [place] Start: 04-23-2023 Ecg routine ecg w/le ast 12 lds w/i&r Viktoriya Marcial MD Work Phone: Start: 03-31-2023 Plain chest X-ray Dr. Tanner Carranza Work Phone: Start: 03-05-2023 CT of upper limb wit hout contrast Dr. Paresh Carranza Work Phone: Start: 12-26-2022 X-ray of lumbar spin e, two or three views Dr. Paresh Carranza Work Phone: Start: 10-29-2021 Cardiovascular stres s test using pharmacologic stress agent Dr. Reshma Arreola Work Phone: Start: 10-11-2021 Plain chest X-ray Dr. Waqar Arreola Work Phone: Start: 09-03-2021 Radiologic examinati on of knee Dr. Reshma Arreola Work Phone: Start: 12-26-2020 Lipid 1996 panel - S boris or Plasma Viktoriya Marcial MD Work Phone: Start: 07-23-2013 History of placement of stent for coronary artery disease History of coronary artery stent placement Argenis Mcgee Comment on above: PCI-MELL-LAD w/ 3.0X 20 Promus element stent 07/23/13 Start: 09-15-2009 Colonoscopy Viktoriya cote MD Work Phone: Plan of Treatment Date Care Activity Detail Author Start: 12-10-2029 Tetanus vaccination Tetanus (T d or Tdap) [facility] Start: 12-10-2029 Urine microalbumin profile DTaP,Tdap,Td Vaccine (2 - Td or Tdap) [facility] Start: 06-20-2026 Diabetes Screening Diabetes Screenin g [facility] Start: 12-26-2025 Lipid 1996 panel - Serum or Plasma Lipid Screening [facility] Start: 12-26-2025 Lipid panel Cholesterol [facility] Start: 05-10-2025 Hepatic function panel [facility] Start: 05-10-2025 Thyroid stimulating hormone measurement [facility] Start: 12-31-2024 Patient referral [facility] Work Phone: Start: 12-31-2024 Plain x-ray of pelvi s and lower extremity HIP, UNI W/ Pelvis 2-3 Views [facility] Start: 12-31-2024 X-ray of lumbar spin e, two or three views Lumbar Spine 2 or 3 Views [facility] Start: 12-31-2024 XR Lumbar spine 2 or 3 Views [facility] Start: 12-31-2024 XR Pelvis and Hip Views [facility] Start: 04-23-2024 BP Controlled (<130/80) BP Controlled (<130/80) [facility] Start: 12-27-2023 Diabetes Screening Diabetes Screenin g [facility] Start: 06-23-2023 Patient discharge [facility] Start: 06-23-2023 Ambulation without limitation [facility] Start: 06-23-2023 Elevation of head of bed [facility] Start: 06-23-2023 Medical regimen orde rs management [facility] Start: 06-23-2023 Procedure discontinued [facility] Start: 06-23-2023 Taking patient vital signs [facility] Start: 06-23-2023 Vital signs measurements [facility] Start: 06-23-2023 Anesthesia nose & accessory sinuses nos ANESTH NOSE/SINUS SURGERY [facility] Start: 06-23-2023 Septoplasty/submucou s resecj w/wo cartilage grf REPAIR OF NASAL SEPTUM [facility] Start: 06-23-2023 Submucous rescj inferior turbinate prtl/compl RESECT INFERIOR TURBINATE [facility] Start: 06-23-2023 Medication education [facility] Start: 04-04-2023 Influenza vaccination Influenza Vacc ine (#1) [facility] Start: 04-01-2023 Patient referral [facility] Work Phone: Start: 08-04-2022 Advance Directive Discussion Advance Directive Discussion [facility] Start: 08-04-2022 Depression Assessment Depression Ass essment [facility] Start: 12-26-2021 Hepatitis B surface antibody level LDL Cholesterol [facility] Start: 09-15-2019 Colonoscopy Colonoscopy [facility] Start: 09-15-2019 Colorectal Cancer Screening Colorectal Cancer Screening [facility] Start: 2016 Pneumococcal vaccination Pneumococcal Vaccine(s) (65+ yrs) (2 of 2 - PPSV23 or PCV20) [facility] Start: 11-20-2015 Pneumococcal Vaccine : 65+ (2 - PPSV23 or PCV20) Pneumococcal Vaccine: 65+ (2 - PPSV23 or PCV20) [facility] Start: 2015 Pneumococcal vaccination Pneumococcal Vaccine(s) (65+ yrs) (1 of 1 - PCV) [facility] Start: 2010 Hepatitis B (HBV) Vaccine (optional start 60+ years) Hepatitis B (HBV) Vaccine (optional start 60+ years) [facility] Start: 2010 RSV Vaccine (1 - 1-dose 60+ series) RSV Vaccine (1 - 1-dose 60+ series) [facility] Start: 2010 RSV vaccine (optiona l 60+ years) RSV vaccine (optional 60+ years) [facility] Start: 2000 Shingles (RZV) Vacci ne (1 of 2) Shingles (RZV) Vaccine (1 of 2) [facility] Start: 2000 Shingrix Vaccine (1 of 2) Shingrix Vaccine (1 of 2) [facility] Start: 1995 Cologuard (FIT-DNA) Cologuard (FIT-D NA) [facility] Start: [address] COLONOGRAPHY [facility] Start: 1995 Fecal Occult Blood Fecal Occult Bloo d [facility] Start: 1995 Screening for malignant neoplasm of colon [facility] Start: 1995 SIGMOIDOSCOPY SIGMOIDOSCOPY [facility] Start: 1985 Lipid panel [facility]olesterol [facility] Start: 1980 Zoledronic acid therapy Alpha-1 Antitrypsin Deficiency Screening [facility] Start: 1969 Hepatitis A (HAV) Vaccine (optional start 19+ years) Hepatitis A (HAV) Vaccine (optional start 19+ years) [facility] Start: 1969 Shingrix Vaccine (1 of 2) Shingrix Vaccine (1 of 2) [facility] Start: 1969 Tetanus vaccination Tetanus (T d or Tdap) Booster [facility] Start: 1969 Urine microalbumin profile DTaP,Tdap,Td Vaccine (1 - Tdap) [facility] Start: 1968 Annual PCP Team Chronic Disease Visit Annual PCP Team Chronic Disease Visit [facility] Start: 1968 BP Controlled (<130/80) BP Controlled (<130/80) [facility] Start: 1968 Hepatitis C screening Hepatitis C An tibody [facility] Start: 1968 Spirometry Spirometry [facility] Start: 1968 Tetanus + diphtheria + acellular pertussis vaccine (product) Tdap Booster [facility] Start: 1955 Covid-19 Vaccine (#1) Covid-19 Vacci ne (#1) [facility] Start: 03-25-1951 Covid-19 Vaccine (#1) Covid-19 Vacci ne (#1) [facility] Start: 1950 Abdominal Aortic Aneurysm Screening Abdominal Aortic Aneurysm Screening [facility] Start: 1950 Screening for malignant neoplasm of colon Colonoscopy [facility] Basic metabolic 2008 panel with ionized calcium - Serum or Plasma [facility] CBC W Auto Differential panel - Blood [facility] Work Phone: CBC W Auto Differential panel - Blood [facility] Lipid 1996 panel - Serum or Plasma [facility] MR Lower Extremity Joint [facility] NM Heart Views W stress and W radionuclide IV [facility] Patient Education ED Contact Dermatitis [facility] Work Phone: Patient referral [facility] Work Phone: Thyroid stimulating hormone measurement [facility] Work Phone: [facility] Vitamin D, 25-hydrox y measurement [facility] Work Phone: [facility] Work Phone: [place] EP LAB NEGATED: Highlighted row has been ruled out! Planned Goals not documented [facility] Work Phone: Immunizations Immunization Date Immunization Notes Care Provider Sherron jewell 12-11-2019 tetanus toxoid, redu oliver diphtheria toxoid, and acellular pertussis vaccine, adsorbed Dr. Reshma Arreola Work Phone: [facility] 08-30-2016 influenza virus vaccine, unspecified formulation Viktoriya Marcial MD Work Phone: [facility] 2015 pneumococcal conjuga te vaccine, 13 valent Viktoriya Marcial MD Work Phone: [facility] Payers Date Payer Category Payer Self-pay [id number] 2020 Unknown [id number] 2020 Unknown MMO MMO MEDICARE SUPPLEMENT [id number] 2020-Present [phone] [address] [place] [address] Indemnity [id number] 2020 Unknown [id number] 2016 Unknown [id number] 2015 Medicare [id number] 2015 Medicare MEDICARE MEDICAR E A AND B [id number] 2015-Present [phone] [address] [address] [place] [address] Medicare [id number] 1950 Unknown [id number] 2.16.840.1.076736.3.579.2.594 1950 Unknown [id number] 2.16.840.1.207195.3.579.2.594 1950 Unknown [id number] 2.16.840.1.873402.3.579.2.594 1950 Unknown [id number] 2.16.840.1.031858.3.579.2.594 1950 Unknown [id number] 2.16.840.1.234559.3.579.2.594 1950 Unknown [id number] 2.16.840.1.088114.3.579.2.594 1950 Unknown [id number] 2.16.840.1.999247.3.579.2.594 Unknown [id number] Unknown [id number] 2.16.840.1.416061.3.579.2.462 Unknown [id number] 2.16.840.1.785811.3.579.2.462 Unknown [id number] 2..840.1.357510.3.579.2.462 Unknown [id number] 2.840.1.749633.3.579.2.462 Unknown [id number] 2.840.1.308235.3.579.2.462 Unknown [id number] 2.840.1.226970.3.579.2.462 Unknown [id number] 2.16.840.1.389870.3.579.2.462 Unknown [id number] 2.16.840.1.996339.3.579.2.462 Unknown [id number] 2.16.840.1.542093.3.579.2.462 Unknown [id number] 2.840.1.656632.3.579.2.462 Unknown [id number] 2.16.840.1.839211.3.579.2.462 Unknown [id number] 2.16.840.1.783175.3.579.2.462 Unknown [id number] 2.16.840.1.244981.3.579.2.462 Unknown [id number] 2.16.840.1.288961.3.579.2.462 Unknown [id number] 2.840.1.339344.3.579.2.462 Unknown [id number] 2.16.840.1.391832.3.579.2.462 Unknown [id number] 2.16.840.1.147688.3.579.2.462 Unknown [id number] 2.16.840.1.678130.3.579.2.462 Unknown [id number] 2.16.840.1.656142.3.579.2.462 Unknown [id number] 2.16.840.1.917380.3.579.2.462 Unknown [id number] 2.16.840.1.600585.3.579.2.462 Unknown [id number] 2.16.840.1.278319.3.579.2.462 Unknown [id number] 2.16.840.1.437557.3.579.2.462 Social History Date Type Detail Facility Assertion Tobacco smoking consumption unknown (finding) [facility] Work Phone: Start: 11-08-2021 End: 10-28-2023 Tobacco smoking status [facility] Unknown if ever smoked [facility] Start: 12-12-2020 None [facility] Start: 07-29-2019 Spouse/ Signif icant Other [facility] Start: 12-24-2020 Non-smoker [facility] Start: 1950 Sex Assigned At Male [facility] Start: 05-01-2011 End: 06-16-2023 Tobacco smoking status NHIS Ex-smoker [facility] History of tobacco use Current smoker [facility] Start: 05-01-2011 End: 06-16-2023 Tobacco use and exposure Smokeless tobacco non-user [facility] Start: 04-23-2023 End: 06-20-2023 Alcohol intake Current drinker of alcohol (finding) [facility] Start: 04-23-2023 End: 06-20-2023 History of Social function [facility] Start: 04-23-2023 End: 06-20-2023 Tobacco use panel [facility] National Score (1-100), lower number is lower risk 69 [facility] Start: 09-13-2008 End: 06-16-2023 Tobacco Comment 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, quit early 1969 [facility] Start: 1950 Sex Assigned At Not on file C [facility] Start: 10-28-2023 Tobacco smoking stat us PRIS Never smoked tobacco (finding) [facility] Start: 10-29-2024 End: 11-19-2024 Sex Male (finding) [facility] Medical Equipment Procedure Code Equipment Code Equipment Origin al Text Equipment Identifier Dates Septoplasty, nose Plant polysacc haride haemostatic agent, bioabsorbable ([id number] FDA Start: 06-23-2023 Goals Date Patient Goal Desired Activity /State Functional Status Date Assessment Result Facility NEGATED: Highlighted row Functional performance Functional status health issues are not documented Disease [facility] Work Phone: Mental Status Date Assessment Result Facility 06-23-2023 Cognitive function Voice/Name [facility] Work Phone: 06-23-2023 Cognitive function Patient Orien tation Person;Place;Time [facility] Work Phone: 11-27-2021 Cognitive function Level Of Cons ciousness Awake;Alert;Appropriate ;Follows Commands [facility] Work Phone: NEGATED: Highlighted row Cognitive function [Interpretation] Cognitive status health issues are not documented Disease [facility] Work Phone: Clinical Notes 12-08-2012 to 04-20-2025 Note Date & Type Note Facility 04-20-2025 Progress note [facility] 04-20-2025 Progress note Note Date/Time April 20, 2025 3:55pm [facility] [address] [place] [id number] OFFICE VISIT Date of Service: 04/20/25 MR#: [id number] Acct: [id number] Name: BRIGETTE HOLGUIN Rep #: [id number] : 1950 Provider: Dr. Grzegorz Rojas, DO Age/Sex: 74/M Location: [facility] Status: Signed Intake Vital Signs 01/05/25 09:23 Height 5 ft 9 in Intake Visit Reasons: right hip Allergies Sulfa (Sulfonamide Antibiotics) Allergy (Mild, Verified 04/20/25 15:36) Rash clopidogrel (From Plavix) Adverse Reaction (Severe, Verified 04/20/25 15:36) Other - genetic nonresponder, needs brillinta oxybutynin Adverse Reaction (Severe, Verified 04/20/25 15:36) short of breath, very dry mouth metoprolol (From Lopressor) Adverse Reaction (Mild, Verified 04/20/25 15:36) - bronchospasm nystatin Adverse Reaction (Unknown, Verified 04/20/25 15:36) Unknown adhesive tape Adverse Reaction (Verified 04/20/25 15:36) Itching Medications ?Medication ?Instructions ?Recorded ?Confirmed ?Type albuterol sulfate 90 mcg/actuation 2 puff inhalation Q 4H PRN 02/19/24 04/20/25 Rx aerosol inhaler (Ventolin HFA) shortness of breath or wheezing #18 grams rivaroxaban 20 mg tablet (Xarelto) 20 mg PO DAILY #90 tabs 05/05/24 04/20/25 Rx levothyroxine 25 mcg tablet 25 mcg PO QDAY Filling as 07/07/24 04/20/25 Rx courtesy, pt needs to get from Primary #90 tabs losartan 25 mg tablet 25 mg PO DAILY #90 tabs 12/0 11/2504/20/25 Rx nitroglycerin 0.4 mg sublingual 0.4 mg sublingual Q5M PRN Chest 10/27/24 04/20/25 Rx tablet Pain #25 tabs budesonide 160 mcg-glycopyr 9 inh inhalation lunges 04/20/25 History mcg-formot 4.8 mcg/actuation HFA inhaler tiotropium bromide 2.5 inhalation Breathing problem s 01/05/25 04/20/25 History mcg/actuation mist for inhalation (Spiriva Respimat) diltiazem HCl 240 mg 240 mg PO QDAY #90 caps 01/2604/20/25 Rx capsule,extended release 24 hr (Cartia XT) Have you fallen in the past year?: No PFSH Medical History Wears glasses Thyroid disease Blood disorder History of echocardiogram History of stress test Hypertension Cardiology follow-up encounter Knee pain with internal derangement determined by x-ray History of CVA (cerebrovascular accident) (08/2012) Chronic kidney disease (CKD) Essential (primary) hypertension B12 deficiency Complex partial seizure Non-smoker TIA (transient ischemic attack) Urinary retention Segmental and somatic dysfunction of pelvic region Candidiasis of mouth Rheumatoid arthritis BRANDON (obstructive sleep apnea) Carotid artery stenosis HLD (hyperlipidemia) Sinus bradycardia Esjck-Wqdfjwrps-Yeqpz (WPW) syndrome Sick sinus syndrome Old myocardial infarction BPH (benign prostatic hyperplasia) Atherosclerosis of coronary artery of upper [place] heart without angina pectoris Segmental and somatic dysfunction of cervical region Segmental and somatic dysfunction of thoracic region Segmental and somatic dysfunction of lumbar region 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 Surgical History History of shoulder surgery (01/2021) History of permanent cardiac pacemaker placement (12/08/12) History of spinal surgery History of herniorrhaphy History of left heart catheterization (08/02/19) History of coronary artery stent placement (07/23/13) Family History Brother CVA (cerebral vascular accident) Carotid artery stenosis Father CVA (cerebral vascular accident) Carotid artery stenosis Mother Stomach cancer Social History household members: spouse Smoking Status: Never smoker alcohol intake: never substance use type: does not use what type of physical activity do you participate in: walking HPI right hip Details: This documentation accurately reflects the service provided and the decisions made by me, Dr. Deangelo Rojas, DO 04/20/25 1153. Part of today?s visit was documented by Meche HAMLIN, acting as scribe. BRIGETTE HOLGUIN is a 74 year old M here today for MRI review of the right hip. Patient denies any changes to his symptoms. 04/11/2025 visit:74 year old M here today for follow-up on right hip pain. His states that Dr. Landeros states that he thinks the hip is getting worse and needs re-evaluated. His last injection for the hip was 03/30/2025. he does stillget relief from the injections but only gets about 3 weeks of relief. He does use a cane to ambulate. Dr. Landeros did prescribe him [place] but he doesn't like to take it unless he is having severe pain. He does use Voltaren gel for the hip. He has done PT and does exercises at home for the hip. The worst of his pain is in the groin that extends down the medial thigh and stops at the knee. Plan:Patient is here today for continued right hip pain. I spoke with patient that his recent xrays did not seem significant enough to warrant the amount of pain that he is having. However clinically his pain does seem to be originatingfrom the hip. I would like to get an MRI of the hip to rule out AVN or something else we might be missing. Patient does have a pacemaker so we will have to chevk with the housing project manager and the MRI department to see if his is MRI compatible or not. If it is not compatible we can get a CT of the hip however would get MAKOplasty protocol at the same time with anticipation of possible future replacement, as he did get significant relief from intra-articular steroid injection although short-lived does favor positive prognosis for hip replacement. Follow up after MRI 12/31/2024 visit:74 year old M with a medical history significant for but not limited to chronic low back pain, hypothyroidism, atrial fibrillation on anticoagulation Xarelto 20 mg daily, history of CVA, history of cardiac stenting, history of cardiac pacemaker placement, chronic kidney disease, obstructive sleep apnea, WPW here today for right hip pain that he has been having for 3 months. He states that he has pain on the lateral side, posterior, and groin. His pain does radiated down the leg but stops at the knee. He does have low backpain and had a fusion of L4-[address] Philip at [facility] who is now retiredover 10 years ago. He did have an intra-articular injection in the right hip by anterior approach by Dr. Israel at [facility] 11/25/24 which helped with his hip/groin pain but not radiating pain and numbness. Since the injection he has intermittent groin pain but it is much better. If he applies pressure to his greater sciatic notch it helps relieve the pain. he does have numbness/tingling in the right leg which also stops at the knee. He denies previous injury or surgery to the hip. He denies physical therapy. He does take Tylenol for the pain as he is unable to take NSAIDs secondary to his Xarelto. Plan:Patient is here today for right "hip" pain. I obtained and reviewed xrays today of his right hip and lumbar spine. I spoke with patient that his hip xraysdo show some mild joint space narrowing of the hip as well as degenerative changes below his previous lumbar fusion . Clinically he has right trochantericbursitis which can be recurrent secondary to stiffness of the lumbar spine. In addition he has lumbar radiculitis on the right side . I spoke with patient thatthe pain in the anterior thigh is likely coming from his lumbar spine. His groin pain is doing better after his injection with Dr. Israel . I discussed trochanteric bursal injection as well as physical therapy for the ITband, trochanteric bursitis, and lumbar radiculitis. Patient wishes to proceed with the injection and referral to physical therapy today. Physical therapy referral has been placed and injection was given today without complication. Ortho Exam General General: Yes no acute distress and Yes well groomed Neurologic: Yes alert and Yes oriented x3 Psychologic: Yes reasonable and appropriate Right Hip Skin: No Ecchymosis, No soft tissue swelling and No Erythema internal rotation @90 degree flexion: 5 degrees external rotation @90 degree extension: 70 degrees HIP: IR with immediate groin pain ER w/o groin pain pain with resisted hip flexion There is no bulges in his groin area there is no erythema there is no indurationor signs of infection or DVT Supplemental Info 04/15/2025 MRI right hip:There is a 1.7 by 1.2 cm subcortical focus of marrow edema in the superior right femoral head consistent with a developing osteochondral defect, with adjacent marrow edema, with no visible free fragment. There is severe joint space narrowing. 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 There isdegeneration throughout the labrum with a 0.8 x 0.6 cm paralabral cyst at the anterior superior labrum, axial PD image 04/02. There is a large joint effusion. There is moderate distal iliopsoas tendinopathy with increased T2 signal and attenuation. 12/31/2024 x-ray right hip: There is mild joint space narrowing 12/31/2024 x-ray lumbar spine: There is pedicle screw within the L4-L5 vertebral bodies there is facet arthrosis L5-S1 Coding Level of Care Code Off vis,est,level 4 Diagnoses Primary osteoarthritis of right hip M16.11 Osteoarthritis type: primary Assessment and Plan Assessment and Plan (1) Degenerative joint disease of right hip: Status: Acute Qualifiers: Osteoarthritis type: primary Qualified Code(s): M16.11 - Unilateral primary osteoarthritis, right hip Plan Patient is here today for MRI review of the right hip. I spoke with patient thathis MRI does show severe arthritis of the right hip. I spoke with patient that his treatment would be a total hip arthroplasty. Risks, benefits and alternatives of surgery reviewed including but not limited to bleeding, infection, nerve, foot drop, artery and/or tissue damage, fracture, VTE, leg length discrepancy, dislocation, need for hip precautions, continued pain and expected post-operative course. I do recommend doing PT after surgery. He shouldalso avoid bending over the hip or bending to excelsior picker anything heavy. I would need medical clearance from his PCP and clearance to stop his Xarelto 4 days prior to surgery secondary to his chronic kidney disease and inability to use a tourniquet during hip surgery. I would also like to get a cardiac clearance. I would recommend him being an admit secondary to his advanced age blood thinner usage and cardiac comorbidities. He does have 2 steps to get into his house. I advised patient that we do have to wait 3 months from his last hip injection which was 03/30/25 but he can continue to get injections for his lumbar spine. Patient does wish to proceed with surgery tentative surgery date July 05, 2025 admission. Follow up at 2 weeks post-op or sooner if pain, swelling, numbness or associatedsymptoms, or concerns develop. All questions answered. Patient in agreement of plan. Plan Details Goals & Barriers: Goals Decrease pain Decrease inflammation Improve ROM Barriers cervical disc herniation previous lumbar surgery Clinical Quality Measures Falls Risk Screening/Assistive Devices Have you fallen in the past year?: No 04/20/25 1555 <Electronically signed by Deangelo singh DO> Date _ Deangelo Morgan Signature: Date (if applicable) CC: Dr. Paresh Carranza MD ~ [facility] Work Phone: 1(806) 190-539109-08-2025 Evaluation note* Diagnosis Onset Date Resolution Status Admit Date Degenerative joint disease of right hip acute April 11, 2 025 3:46pm Greater trochanteric bursitis of right hip acute April 11, 2025 3:46pm Lumbar radiculopathy acute Apr 3:46pm Right lumbar radiculitis acute April 11, 2025 3:46pm Degenerative joint disease of right hip acute April 20, 2025 3:32pm History of permanent cardiac pacemaker 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, 2012 acute [facility] 2024 8:20am Pre-employment health screening examination acute May 8:20am Atherosclerosis of coronary artery of upper [place] heart without angina pectoris chronic May 10, 2025 8:20am History of coronary artery stent placement July 23, 2013 chronic May 10, 2025 8:20am Sick sinus syndrome chronic Octob er 2024 8:20am [facility] Work Phone: 1(351) 591-949709-08-2025 Evaluation note* Diagnosis Onset Date Resolution Status Admit Date Degenerative joint disease of right hip acute April 11, 2 025 3:46pm Greater trochanteric bursitis of right hip acute April 11, 2025 3:46pm Lumbar radiculopathy acute Apr 3:46pm Right lumbar radiculitis acute April 11, 2025 3:46pm Degenerative joint disease of right hip acute April 20, 2025 3:32pm History of permanent cardiac pacemaker 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, 2012 acute May 10 8:20am Sick sinus syndrome chronic Octob er 2024 8:20am Nrpdy-Lmwnelvsx-Meikb (WPW) syndrome chronic May 10 8:20am History of permanent cardiac pacemaker 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, 2012 acute May 10 8:20am Preoperative cardiovascular examination acute Octob er 2024 8:20am Essential (primary) hypertension chronic May 10 8:20am History of coronary artery stent placement July 23, 2013 chronic May 10, 2025 8:20am HLD (hyperlipidemia) chronic [facility] steffen 2024 8:20am Paroxysmal atrial fibrillation chronic May 10 8:20am Sick sinus syndrome chronic Octob er 2024 8:20am [facility] Work Phone: 1(277) 351-901707-07-2025 Discharge summary Author Rosa Maria Davies [facility] Note Date/Time February 07, 2025 3:44p m [facility] Physical Therapy [facility] [address] [place] [address] / REHABILITATION SERVICES DISCHARGE SUMMARY MR#: [id number] Acct: [id number] Name: BRIGETTE HOLGUIN Rep #: [id number] : 1950 74 From: Rosa Maria Guevara Referring Dr.: Dr. Deangelo Rojas, DO Status: REG RCR Insurance: MEDICARE PART A B [facility] Patient Information Patient Information: BRIGETTE HOLGUIN was seen in my office for initial evaluation on 02/01/25. The following Plan of Care was established for this patient: POC Established Initial Frequency: 2x /Week Initial Duration: 2 Months Anticipated Interventions Patient/Client Instruction: Educate patient on: Condition and Plan of Care For the Purpose of:: To decrease pain, To increase ROM, To improve nutrient delivery to tissue, To improve muscle performance and motor function, To improveability to perform ADL's, To increase tolerance to activity/condition/position, To improve performance and independence with ADL's, To decrease level of supervision to perform tasks, To improve ability of physical actions for home/community/work/leisure, To improve gait and locomotor functions, To improvehealth of tissue, To decrease soft tissue restriction, To increase flexibility/ROM, To improve endurance, To improve balance and To improve safety with gait Therapeutic Exercise to Include: Strength training, Endurance training, Balance training, Body mechanics, Postural training, Flexibilty training, Gait and locomotor training, Neuromotor development, Passive ROM, Active ROM and Dynamic Lumbar Stabilization For the Purpose of:: To decrease pain, To decrease swelling/inflammation, To increase ROM, To improve nutrient delivery to tissue, To improve muscle performance and motor function, To improve ability to perform ADL's, To increasetolerance to activity/condition/position, To improve performance and independence with ADL's, To decrease level of supervision to perform tasks, To improve ability of physical actions for home/community/work/leisure, To improve gait and locomotor functions, To improve health of tissue, To decrease soft tissue restriction, To increase flexibility/ROM, To improve endurance, To improve balance and To improve safety with gait Functional Training to Include: Gait training For the Purpose of:: To improve gait and locomotor functions and To improve safety with gait Manual Therapy Techniques to Include: Passive ROM, Soft tissue mobilization and Other Comment: foam rolling For the Purpose of:: To decrease pain, To increase ROM, To improve nutrient delivery to tissue, To improve muscle performance and motor function, To improveability to perform ADL's, To increase tolerance to activity/condition/position, To improve performance and independence with ADL's, To decrease level of supervision to perform tasks, To improve ability of physical actions for home/community/work/leisure, To improve gait and locomotor functions, To improvehealth of tissue, To decrease soft tissue restriction, To increase flexibility/ROM and To improve safety with gait Last Seen Last Seen: This patient was last seen in our office 02/02/25. Pertinent comments regardingtheir Physical therapy will appear below: Pt cx remaining appts with no reason given At this point I will be discontinuing this patient from physical therapy. I would be happy to see this patient again in the future if found appropriate by the physician. Thank you! RAHEL Torres Balance/Gait/Functional tests Balance/Special Test Scores Lower Extremity Functional Score: 26 <Electronically signed by Rosa Maria Davies MPT> 02/07/25 1544 CC: Dr. Deangelo Rojas DO; Dr. Paresh Carranza MD ~ Signed [facility] Work Phone: 1(679) 311-694207-07-2025 Discharge summary [facility] Physical Therapy [facility] [address] [place] [address]. [address] [place] [address] / REHABILITATION SERVICES DISCHARGE SUMMARY MR#: [id number] Acct: [id number] Name: BRIGETTE HOLGUIN Rep #: [id number] : 1950 74 From: Rosa Maria Guevara Referring Dr.: Dr. Deangelo Rojas, DO Status: REG RCR Insurance: MEDICARE PART A B [facility] Patient Information Patient Information: BRIGETTE HOLGUIN was seen in my office for initial evaluation on 02/01/25. The following Plan of Care was established for this patient: POC Established Initial Frequency: 2x /Week Initial Duration: 2 Months Anticipated Interventions Patient/Client Instruction: Educate patient on: Condition and Plan of Care For the Purpose of:: To decrease pain, To increase ROM, To improve nutrient delivery to tissue, To improve muscle performance and motor function, To improveability to perform ADL's, To increase tolerance to activity/condition/position, To improve performance and independence with ADL's, To decreaselevel of supervision to perform tasks, To improve ability of physical actions for home/community/work/leisure, To improve gait and locomotor functions, To improvehealth of tissue, To decrease soft tissue restriction, To increase flexibility/ROM, To improve endurance, To improve balance and To improv e safety with gait Therapeutic Exercise to Include: Strength training, Endurance training, Balance training, Body mechanics, Postural training, Flexibilty training, Gait and locomotor training, Neuromotor development, Passive ROM, Active ROM and Dynamic Lumbar Stabilization For the Purpose of:: To decrease pain, To decrease swelling/inflammation, To increase ROM, To improve nutrient delivery to tissue, To improve muscle performance and motor function, To improve abilityto perform ADL's, To increasetolerance to activity/condition/position, To improve performance and in dependence with ADL's, To decrease level of supervision to perform tasks, To improve ability of physical actions for home/community/work/leisure, To improve gait and locomotor functions, To improve health of tissue, To decrease soft tissue restriction, To increase flexibility/ROM, To improve endurance, To improve balance and To improve safety with gait Functional Training to Include: Gait training For the Purpose of:: To improve gait and locomotor functions and To improve safety with gait Manual Therapy Techniques to Include: Passive ROM, Soft tissue mobilization and Other Comment: foam rolling For the Purpose of:: To decrease pain, To increase ROM, To improve nutrient delivery to tissue, To improve muscle performance and motor function, To improveability to perform ADL's, To increase tolerance to activity/condition/position, To improve performance and independence with ADL's, To decreaselevel of supervision to perform tasks, To improve ability of physical actions for home/community/work/leisure, To improve gait and locomotor functions, To improvehealth of tissue, To decrease soft tissue restriction, To increase flexibility/ROM and To improve safety with gait Last Seen Last Seen: This patient was last seen in our office 02/02/25. Pertinent comments regardingtheir Physical therapy will appear below: Pt cx remaining appts with no reason given At this point I will be discontinuing this patient from physical therapy. I would be happy to see this patient again in the future if found appropriate by the physician. Thank you! Rosa Maria Davies, RAHEL Balance/Gait/Functional tests Balance/Special Test Scores Lower Extremity Functional Score: 26 02/07/25 1544 CC: Dr. Deangelo Rojas, DO; Dr. Paresh Carranza MD ~ Signed [facility]06-04-2025 [facility] [address] [place] [address] OFFICE VISIT Date of Service: 01/05/25 MR#: [id number] Acct: [id number] Name: BRIGETTE HOLGUIN Rep #: [id number] : 1950 Provider: ANABEL Grande Age/Sex: 74/M Location: [facility] Status: Signed HPI HPI History of Present Illness Details: Mr. Holguin is a 74-year-old white male, who presents today for outpatient cardiovascular followup. As you know, he has a history of hypertension, hypercholesterolemia, paroxysmal atrial fibrillation, coronary artery disease status post angioplasty and drug-eluting stenting to the LAD at [facility] on 07/23/13. At that time he received a 3.0X 20 Promus element stent. The patient had a known tiny 1.5-2 mm in diameter diagonal #1 branch wasis diffusely diseased since catheterization in 2006. He has never had a balloonangioplasty of that vessel. He returned on 08/21/16 with recurrent chest pain and then underwent a stress test which suggested possible anterior ischemia. Werepeated his catheterization which demonstrated nonobstructive disease of his RCA and left circumflex,widely patent stent of his LAD but loss of that tiny little diagonal branch. No intervention was attempted. Patient was subsequently sent home on medical management. He had been placed on a beta-block er. 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 He did develop an infection of the pacemaker and ithad to be explanted and placed on the right side. He does knowledge improvement in symptoms since last office visit. [facility]. He denies chest, arm, jaw, or neck discomfort. He denies palpitations. He denies bilateral lower extremity edema. He denies claudication. He states shortness of breathwith activity and at rest that he attributes to asthma/emphysema. He denies orthopnea or PND. He denies chronic cough. He denies significant, sudden weight gain. He denies lightheadedness, dizziness,near-syncope, or syncope. He denies blood in urine, blood in stool, or epistaxis. He denies fever or chills. He denies myalgia. He states fatigue. His exercise level has remainedstable via work which requires walking. 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 Required: No Accompanied by: Is patient in pain?: No Allergies Sulfa (Sulfonamide Antibiotics) Allergy (Mild, Verified 01/05/25 09:35) Rash clopidogrel (From Plavix) Adverse Reaction (Severe, Verified 01/05/25 09:35) Other - genetic nonresponder, needs brillinta oxybutynin Adverse Reaction (Severe, Verified 01/05/25 09:35) short of breath, very dry mouth metoprolol (From Lopressor) Adverse Reaction (Mild, Verified 01/05/25 09:35) - bronchospasm nystatin Adverse Reaction (Unknown, Verified 01/05/25 09:35) Unknown adhesive tape Adverse Reaction (Verified 01/05/25 09:35) Itching Medications ?Medication ?Instructions ?Recorded ?Confirmed ?Type albuterol sulfate 90 mcg/actuation 2 puff inhalation Q 4H PRN 02/19/24 01/05/25 Rx aerosol inhaler (Ventolin HFA) shortness of breath or wheezing #18 grams rivaroxaban 20 mg tablet (Xarelto) 20 mg PO DAILY #90 tabs 05/05/24 01/05/25 Rx levothyroxine 25 mcg tablet 25 mcg PO QDAY Filling as 07/07/24 01/05/25 Rx courtesy, pt needs to get from Primary #90 tabs losartan 25 mg tablet 25 mg PO DAILY #90 tabs 12/0 11/2501/05/25 Rx nitroglycerin 0.4 mg sublingual 0.4 mg sublingual Q5M PRN Chest 10/27/24 01/05/25 Rx tablet Pain #25 tabs budesonide 160 mcg-glycopyr 9 inh inhalation lunges 01/05/25 History mcg-formot 4.8 mcg/actuation HFA inhaler diltiazem HCl 240 mg 240 mg PO QAM #30 tabs 01/0501/05/25 Rx tablet,extended release 24 hr tiotropium bromide 2.5 inhalation Breathing problem s 01/05/25 01/05/25 History mcg/actuation mist for inhalation (Spiriva Respimat) Ejection fraction %: 65 Have you fallen in the past year?: No PFSH Medical History Wears glasses Thyroid disease Blood disorder History of echocardiogram History of stress test Hypertension Cardiology follow-up encounter Knee pain with internal derangement determined by x-ray History of CVA (cerebrovascular accident) (08/2012) Chronic kidney disease (CKD) Essential (primary) hypertension B12 deficiency Complex partial seizure Non-smoker TIA (transient ischemic attack) Urinary retention Segmental and somatic dysfunction of pelvic region Candidiasis of mouth Rheumatoid arthritis BRANDON (obstructive sleep apnea) Carotid artery stenosis HLD (hyperlipidemia) Sinus bradycardia Tzzjf-Fvwqcuffg-Ekbnu (WPW) syndrome Sick sinus syndrome Old myocardial infarction BPH (benign prostatic hyperplasia) Atherosclerosis of coronary artery of upper [place] heart without angina pectoris Segmental and somatic dysfunction of cervical region Segmental and somatic dysfunction of thoracic region Segmental and somatic dysfunction of lumbar region 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 Surgical History History of shoulder surgery (01/2021) History of permanent cardiac pacemaker placement (12/08/12) History of spinal surgery History of herniorrhaphy History of left heart catheterization (08/02/19) History of coronary artery stent placement (07/23/13) Family History Brother CVA (cerebral vascular accident) Carotid artery stenosis Father CVA (cerebral vascular accident) Carotid artery stenosis Mother Stomach cancer Social History household members: spouse Smoking Status: Never smoker alcohol intake: never substance use type: does not use what type of physical activity do you participate in: walking ROS Const Const: Negative for fatigue or weakness Eyes Eyes: Negative for change in vision ENT ENT: Negative for dizziness or balance problems Cardio Chest Pain: No Palpitations: No Edema: None Resp Respiratory: Positive for SOB with activity (Occasionally); Negative for SOB at rest or SOB orthopneaundefinedSOB lying down GI GI: Negative nausea or heartburn Musc Musc: Negative for balance problems Neuro Neuro: Negative for dizziness, lightheadedness, near syncope, syncope or weakness Endo Endo: Negative for fatigue Cardiology Exam Const Appearance: cooperative, healthy appearing, comfortable and no acute distress Nutritional Appearance: well nourished and overweight Orientation: alert, awake and oriented x3 Head Head: normal to inspection Ears: hearing grossly normal bilaterally Nose: external nose normal Face and Sinus: face symmetric Mouth: moist mucous membranes Eyes General: appearance normal, both eyes and all related structures Eyelids: eyelids normal EOM: EOM intact bilaterally Neck Neck: normal visual inspection and no JVD Carotids: normal carotid upstroke Chest Chest inspection: normal inspection of the chest, symmetric chest movement, Pacemaker/ICD Yes rightpectoral incision and normal respiratory effort; Negative cough Auscultation: Bilateral: Clear to Auscultation Cardio Rate: regular rate Rhythm: regular rhythm Heart sounds: S1 normal and S2 normal; Negative rub, gallop or murmur GI GI: normal to inspection Neuro General: patient alert, patient awake, patient oriented x3 and CN's II-XI intactbilaterally Skin Skin: no rashes or lesions noted Extremities Pulses: Normal: Right Posterior Tibial Pulse, Left Posterior Tibial Pulse, RightRadial Pulse and Left Radial Pulse Lower Extremity Edema: None: Bilateral Psych Psychological: normal affect Supplemental Info Supplemental Information Echocardiogram from 11/16/2024: Interpretation Summary Normal LV size. The left ventricular ejection fraction is 65 %. Stage 1 diastolic dysfunction. Mild (1+) tricuspid valve insufficiency. Echocardiogram 11/08/21 Interpretation Summary Normal LV size. Left ventricular systolic function is normal. The estimated ejection fraction is 55 %. Mild to moderately dilated aortic root. Mild concentric left ventricular hypertrophy. Stage 1 diastolic dysfunction. Stress test from 11/16/2024: Conclusion: Normal pharmacologic myocardial perfusion stress test. Preserved ejection fraction. Cardiac catheterization 08/02/2019: CONCLUSIONS Preserved Left Ventricular systolic function with normal EDP LVEF: by LV gram 65 % Non obstructive coronary arteries CORONARY ANGIOGRAPHY DOMINANCE: Right Dominant LEFT HEART ASSESSMENT Left Ventricular Ejection Fraction: by LV Gram 65 % Normal LV wall motion Normal Left Ventricular systolic function LEFT MAIN: Angiographically normal LEFT ANTERIOR DESCENDING ARTERY: PROX LAD: Mild luminal irregularities less than 30% MID LAD: Previously placed stent is patent CIRCUMFLEX ARTERY: PROX CIRC: Mild luminal irregularities less than 30% RIGHT CORONARY ARTERY: Non-obstructive RT PLV: Mild luminal irregularities less than 30% RT PDA: Proximal - Non-obstructive Assessment and Plan Assessment and Plan (1) History of coronary artery stent placement: Status: Chronic Comment: PCI-MELL-LAD w/ 3.0X 20 Promus element stent 07/23/13 Plan: Echocardiogram in November 2024 showed LV function of 65%. Stress test in November 2024 was a normal pharmacologic myocardial perfusion stress test. Patient's device appears to be functioning appropriately. We will continue to monitor this with routine/scheduled follow-ups. (2) History of permanent cardiac pacemaker placement: Status: Acute Comment: 06/2023 Plan: Device evaluation from 11/08/2024 showed atrial paced 62%, ventricular paced 4.5%,battery life 7.3 to8.2 years, 11% atrial burden, and 24 ventricular high rate episodes. There is noted to be atrial flutter with longest episode 21 hours and13 minutes, MVT at 181 bpm for 13 beats, atrial flutter with RVR at 181 bpm and 184 bpm. Patient's device appears to be functioning appropriately. We will continue to monitor this with routine/scheduled follow-ups. (3) Paroxysmal atrial fibrillation: Status: Chronic Plan: His [id number] score is 6/7. He was asked to continue with Xarelto for CVA protection. Will increase diltiazem to assist with heart rate control and bloodpressure control. His amiodarone has been discontinued previously on account ofthyroid related issues. He since has started thyroid medication.Future options may include returning to amiodarone, bearing in mind previous thyroid intolerance. (4) Essential (primary) hypertension: Status: Chronic Plan: This is elevated today in office. Will increase diltiazem for better blood pressure control. This will also assist with tachycardia. (5) HLD (hyperlipidemia): Status: Chronic Qualifiers: Hyperlipidemia type: mixed hyperlipidemia Qualified Code(s): E78.2 - Mixed hyperlipidemia Plan: He will continue risk factor and lifestyle modification. Medications: New diltiazem HCl ER 240 mg PO QAM 30 tabs 11RF Discontinued diltiazem HCl ER Discontinued Reason: Order Changed 180 mg PO QAM 90 caps 3RF Plan Details Additional Comments: Thank you for allowing us to participate in the patients plan of care, if you have any questions please do not hesitate to call. Plan was reviewed with patient/family member along with red flag symptoms. Understanding was acknowledged. Questions were answered to apparent satisfaction. This note was generated using a voice recognition system and there may be incorrect words, spellingor punctuation that were not noted when reviewing the office note prior to saving. Portions of this documentation were copied and pasted from previous office visitnotes to provide a cohesive continuity of the history. The note has been reviewed, edited, and updated, as necessary. 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) Coding Level of Care Code Off vis,est,level 4 Diagnoses History of coronary artery stent placement Z95.5 History of permanent cardiac pacemaker placement Z95.0 Paroxysmal atrial fibrillation I48.0 Essential (primary) hypertension I10 Mixed hyperlipidemia E78.2 Hyperlipidemia type: mixed hyperlipidemia Coding Level of Care Code Off vis,est,level 4 Diagnoses History of coronary artery stent placement Z95.5 History of permanent cardiac pacemaker placement Z95.0 Paroxysmal atrial fibrillation I48.0 Essential (primary) hypertension I10 Mixed hyperlipidemia E78.2 Hyperlipidemia type: mixed hyperlipidemia Clinical Quality Measures Falls Risk Screening/Assistive Devices Have you fallen in the past year?: No Cardiac Ejection fraction %: 65 01/05/25 1003 P SHOE STAINER-C> Date _ Jairo H Roof SHOE STAINER SHOE STAINER-C Cosigner Signature: Date (if applicable) CC: Dr. Paresh Carranza MD ~ [facility]05-30-2025 Evaluation note* Diagnosis Onset Date Resolution Status Admit Date Degenerative joint disease of right hip acute December 31, 2024 9:24am Greater trochanteric bursitis of right hip acute December 31, 2024 9:24am IT band syndrome acute December 9:24am Right lumbar radiculitis acute December 31, 2024 9:24am History of permanent cardiac pacemaker 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, 2012 acute January 05, 2025 9:18am Essential (primary) hypertension chronic January 05, 2025 9:18am History of coronary artery stent placement July 23, 2013 chronic January 05 9:18am HLD (hyperlipidemia) chronic January 05, 2025 9:18am Paroxysmal atrial fibrillation chronic January 05, 2025 9:18am [facility] Work Phone: [phone]) [phone] Evaluation note* Diagnosis Onset Date Resolution Status Admit Date Degenerative joint disease of right hip acute December 31, 025 9:24am Greater trochanteric bursitis of right hip acute December 31, 2024 9:24am IT band syndrome acute December 9:24am Right lumbar radiculitis acute December 31, 2024 9:24am History of permanent cardiac pacemaker 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, 2012 acute January 05, 2025 9 :18am Essential (primary) hypertension chronic January 05, 2025 9 :18am History of coronary artery stent placement July 23, 2013 chronic January 05, 2025 9:18am HLD (hyperlipidemia) chronic January 05, 2025 9:18am Paroxysmal atrial fibrillation chronic January 05, 2025 9 :18am Degenerative joint disease of right hip acute April 112024 3:46pm Greater trochanteric bursitis of right hip acute April 11, 2025 3:46pm Lumbar radiculopathy acute Apr 3:46pm Right lumbar radiculitis acute April 11, 2025 3:46pm Degenerative joint disease of right hip acute April 042024 3:32pm [facility] [employer] Work Phone: 1(534) 365-826211-20-2023 Discharge summary Author Thierry Pepe [facility] June 23, 2023 3:09pm Note Date/Time June 23, 2023 3:09pm [facility] Medical Records Department [address] [place] [address] Discharge Summary 06/23/23 1508 MR#: [id number] Acct: [id number] Name: BRIGETTE HOLGUIN Rep #:[id number] : 1950 72 From: Thierry Pepe MD PCP: Dr. Paresh Carranza MD Status:REG S [place] Location: [place] [address] Providers Primary Care Physician: Dr. Paresh Carranza MD Reason For Visit: Septoplasty,Resect/inferior turbina Medications at Discharge Home Medications nitroglycerin 0.4 mg sublingual tablet 0.4 mg sublingual Q5M PRN Chest Pain #25 tabs 02/11/19 meloxicam 15 mg tablet 15 mg PO DAILY 09/09/22 losartan 25 mg tablet 25 mg PO DAILY #90 tabs 05/05/23 Weight / BMI Weight Weight: 70 kg Body Mass Index (BMI) 22.8 ABG / Lab / Microbiology Data 06/12/23 09:50 06/12/23 09:50 D/C Instructions Discharge Diet: No restrictions Discharge Activity: Return to Normal Activity Additional Activity Instructions: No noseblowing Additional Dressing/Incision Instructions: Start saline nasal spray tomorrow....3 sprays each nostril three times per day Please Follow Up With: Thierry Pepe MD When: 8 days Meaningful Use Info Meaningful Use Diagnoses (Choose all that apply): None applicable Discharge Plan Admission Attending Provider: Thierry Pepe Primary Care Provider: Paresh Carranza Discharge Orders/Prescriptions Prescriptions: No Action meloxicam 15 mg tablet 15 mg PO DAILY nitroglycerin 0.4 mg tablet, sublingual 0.4 mg SUBLINGUAL Q5M PRN (Reason: Chest Pain) Qty: 25 3RF Patient Comments: CHEST PAIN losartan 25 mg tablet 25 mg PO DAILY Qty: 90 3RF Referrals / Follow Up: Paresh Carranza MD [Primary Care Provider] - Disposition Disposition (needs filled in before D/C Order can be placed): Home, Self Care 06/23/23 1509 <Electronically signed by Thierry Pepe MD> Cosigner Signature (if applicable): CC: Dr. Thierry Pepe MD; Dr. Paresh Carranza MD~ Signed [facility] Work Phone: 1(207) 265-161111-20-2023 Procedure [facility] 06-20-2023 NoteHNO ID: [id number] Author: Maribel Pretty RN Service: Care Management Author Type: Registered Nurse Type: Care Mgt Progress Note Filed: 06/20/2023 5:25 PM Note Text: CARE MANAGEMENT UTILIZATION REVIEW COMMITTEE PROVIDER LIABLE (Admission Status Discrepancy Review) Admission Date: 06/19/2023 Patient's Initial Order is: Inpatient Date Received: June 20, 2023 Date Reviewed: June 20, 2023 Under the authority of the Utilization Management Plan, the Physician Advisor, Dr. Godfrey Morton, has reviewed the medical record of the above patient. The following recommendation has been made by the Physician Advisor, based upon the current available medical information as of the date of this determination. The patient is appropriate for: Observation Rationale for this decision: Lack of medical necessity for inpatient admission and less than 2 midnight stay SIGNATURE: Maribel Pretty RN PATIENT NAME: Brigette Holguin DATE: June 20, 2023 TIME: 5:25 PM Disclaimer: The information in this determination is to be used for utilization management purposes only. The information and recommendation is made pursuant to Medicare Hospital Conditions of Participation (442 CFR Part 482) and is neither a judgment nor an assessment with regard to the appropriateness or quality of the clinical care. Nothing in this document may be used to limit clinical services provided to the above named patient. This form should be used as one part of the process utilized to ensure compliance with [facility] policy regarding Inpatient Admission and Observation Services. The definitions of Inpatient and Observation used in making the determination above are those provided in Medicare Benefit Policy Manual Chapter 1, Section 1 and 10, Chapter 6, Section 20, and the Medicare Claims Processing Manual Chapter 1, Section 50.3 and Chapter 4, Section 290. This recommendation should be considered as only one factor in determining the patient's final level of service along with other pertinent documentation such as the treating physician's order as documented evidence of concurrence.[facility]11-17-2023 Note HNO ID: [id number] Author: Iva Perez, RODRIGUEZ Service: Electrophysiology Author Type: Registered Nurse Type: Progress Notes Filed: 06/20/2023 2:57 PM Note Text: Stable PM function. Teaching completed. To have follow up in [place] device clinic. Jaswant Lallie [facility]11-16-2023 NoteHNO ID: [id number] Author: Emilio ([employer])Mariza Service: Pharmacy Author Type: Ramp Boss Type: Plan of Care Filed: 06/19/2023 3:20 PM Note Text: PHARMACY MEDICATION REVIEW Patient Name: Brigette Holguin : 1950 The following medications were updated within the PERSONNEL PSYCHOLOGIST medication list: Medications ADDED to PERSONNEL PSYCHOLOGIST medication list Medications CHANGED on PERSONNEL PSYCHOLOGIST medication list Medications REMOVED from PERSONNEL PSYCHOLOGIST medication list meloxicam (MOBIC) 15 mg tablet Course of therapy completed Additional comments: Verified medication information with e-scripts/dispense report and chart review. Confirmed medications with patient. Patient stated no longer taking Mobic - removed from med list. Patient stated getting cyanocobalamin injection month - left on med list. Patient stated no longer on levothyroxine, never started doxycycline hyclate or Percet - did not add to med list. Required follow up actions for nursing: None The below information represents the best possible medication history: Yes Medication history completed by: Ramp Boss: Mariza Jhaveri ([employer]) Source of history: Patient: Reliability of source: Appears reliable, clearly identified: Medication name, Medication dose, Medication route, and Medication frequency, Pharmacy records: e-scripts/dispense report, and [facility] records Medication nonadherence identified: No barriers noted Reconciliation completed: No, pharmacist not yet reviewed Patient interested in Bedside Delivery Services or using CC OP Pharmacy at discharge? Unable to assess Preferred outpatient pharmacy: [facility] [address] [place] [id number] [address] [facility] - [phone] Allergies: Oxybutynin Shortness of Breath Sulfasalazine Rash Metoprolol Rash Nystatin Other: See Comments Plavix [Clopidogrel] Rash Sulfa (Sulfonamide * Hives, Shortness of Breath Tape [Adhesive Tape* Rash Comment:Patient has rash when using surgery tape and EKG electrodes Prior to Admission Medications Prescriptions Last Dose Informant Patient Reported? Taking? cyanocobalamin 1,000 mcg/mL No Yes Sig: Inject 1 mL intramuscularly once every month. losartan (COZAAR) 25 mg tablet 06/18/2023 Yes Yes Sig: Take 25 mg by mouth once daily. Facility-Administered Medications: None Mariza Jhvaeri (Housekeeping/Laundry Supervisor)[id number] 06/19/2023[facility]11-16-2023 NoteHNO ID: [id number] Author: Nic Chu MD Service: Anesthesiology Author Type: Physician Type: Anesthesia Procedure Notes Filed: 07/14/2023 8:07 AM Note Text: ANESTHESIOLOGY PROCEDURE NOTE A-Line General Information Procedure Start Time/Medication Administration: 06/19/2023 8:55 AM Indications: continuous blood pressure monitoring and blood sampling needed Staffing Anesthesiologist: Nic Chu MD Performed by: anesthesiologist Preparation Sterility Preparation: hand hygiene performed prior to procedure Site Prep: chlorhexidine Procedure Details Catheter Type: arterial line Catheter Size: 20 G Catheter Length: 1.88 in Micropuncture Kit Used: No Guidewire Used: No Laterality: left Site: radial artery Ultrasound Guided: No Line Secured: Tegaderm and tape Events Events: patient tolerated procedure well with no complications SIGNATURE: Ange Crouch APRN.GROCERY STORE ASSOCIATE PATIENT NAME: Brgiette Holguin DATE: June 19, 2023 TIME: 9:16 AM CSN: [id number] NoteHNO ID: [id number] Author: Ange Crouch APRN.CRNA Service: Anesthesiology Author Type: Nurse Agent Licensing Clerk Type: Anesthesia Procedure Notes Filed: 06/19/2023 9:16 AM Note Text: ANESTHESIOLOGY PROCEDURE NOTE Airway General Information Procedure Start Time/Medication Administration: 06/19/2023 8:54 AM Staffing GROCERY STORE ASSOCIATE: Ange Crouch APRN.GROCERY STORE ASSOCIATE Performed by: GROCERY STORE ASSOCIATE Indications and Patient Condition Indications for airway management: anesthesia Preoxygenated: yes anesthesia circuit Patient position: sniffing Method: asleep Final Airway Details Final airway type: endotracheal airway Final Endotracheal Airway: ETT Cuffed: yes Successful intubation technique: direct laryngoscopy Devices used: intubating stylet Endotracheal tube insertion site: oral Blade: Rolando Blade size: #4 ETT size (mm): 7.5 Measured from: lips Measurement (cm): 21 Placement verified by: capnometry Cormack-Lehane Classification: grade IIa - partial view of glottis Number of attempts at approach: 1 Airway not difficult SIGNATURE: Ange Crouch APRN.CRNA PATIENT NAME: Brigette Holguin DATE: June 19, 2023 TIME: 9:15 AM CSN: [id number]23 NoteHNO ID: [id number] Author: Lonnie Mercer APRN.HUMAN SERVICES ASSISTANT Service: ? Author Type: Nurse Practitioner Type: Progress Notes Filed: 06/16/2023 12:20 PM Note Text: [facility] Cardiology Electrophysiology PRIMARY CARE PHYSICIAN: Paresh Carranza [address] [place] [address] CHIEF COMPLAINT: History and physical update prior to PPM RV lead extraction with replacement on 06/19/[address] Marcial. HISTORY OF PRESENT ILLNESS (copied from Dr. Marcial's office note on 04/23/2023): 72-year-old male with history of essential hypertension, coronary disease, status post remote PCI, paroxysmal atrial fibrillation, on rate control strategy, not anticoagulated due to severe bruising, sinus node dysfunction, status post dual-chamber pacemaker implantation at [facility] in 2012. Device now is approaching MADDY. In addition, I right ventricular lead impedance has been trending up and now exceeds 1400 ohms, and capture threshold has been rising. The most recent interrogation showed RV threshold of 7 V at 1.5 ms. Intermittent electrical noise was noted as well. The patient is paced in the atrium 75% of the time and in the ventricle 45% time. The patient was referred for consideration of lead extraction/replacement and PPG replacement. Mr. Holguin presents for nurse visit accompanied by his spouse. He reports feeling well, denies palpitation, chest discomfort, dizziness, or syncope. His device is located in the right side of the chest (apparently after initial implant in 2012 he developed pocket infection that required device relocation to the right). Echocardiogram in 2021 showed preserved systolic function. Coronary angiography 2019 demonstrated nonobstructive CAD. Not on anticoagulation. Interval History: Brigette is a pleasant 72-year-old gentleman who presents today accompanied by his for history and physical update prior to permanent pacemaker RV lead extraction with replacement with Dr. Marcial on 06/19/2023. Overall patient reports he has been feeling well. He denies any angina, shortness of breath, worsening activity tolerance, or constitutional symptoms. Patient originally had permanent pacemaker system implanted in 2012. He developed a pocket infection requiring explantation and relocation to the right upper chest. Right ventricular lead impedances have been increasing exceeding 1400 ohms. Lengthy discussion was had regarding what to expect pre-/intra-/post procedure. Topics included procedure overview, general anesthesia, CTS backup, overnight stay in [place], risk/benefits, and follow-up. Benefit being replacement of right ventricular lead. Low potential risk of bleeding, stroke, or . Patient was instructed to eat and drink well day before procedure with nothing after midnight except for medications with small sips of water. Medications, allergies, and medical history reviewed with patient. Patient and spouse verbalized that I had answered all their questions and they have nothing further at this time. Brigette verbalized a desire to move forward with procedure. PAST MEDICAL HISTORY Diagnosis Date ASHD (arteriosclerotic heart disease) 06/09/2007 Asthma with chronic obstructive pulmonary disease (COPD) 03/01/2015 Atrial fibrillation (HCC) 09/22/2012 Benign hypertension 2015 CAD (coronary artery disease) Diverticulosis of colon (without mention of hemorrhage) Hemiplegia, nondominant side S/P CVA (cerebrovascular accident) 08/07/2012 HTN (hypertension) Hypercholesterolemia Hyperlipidemia LDL goal <100 2015 Presence of cardiac pacemaker 03/01/2015 Spinal stenosis of lumbar region without neurogenic claudication 03/01/2015 Stroke (HCC) 08/07/2012 right posterior frontal lobe, left hand weakness Unspecified sleep apnea 03/01/2015 PAST SURGICAL HISTORY Procedure Laterality Date COLONOSCOPY FLX DX W/COLLJ SPEC WHEN PFRMD 09/15/2009 Colonoscopy PACEMAKER IMPLANT 12/03/2012 [facility] PACEMAKER IMPLANT 01/04/2013 re-implanted due to infection PAST SURGICAL HISTORY OF hernia PAST SURGICAL HISTORY OF 2006 Heart catherization Social History Tobacco Use Smoking status: Former Smokeless tobacco: Never Tobacco comments: 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, quit early 1969 Substance Use Topics Alcohol use: Yes Comment: occasional Drug use: No Family History Problem Relation Age of Onset Cancer Mother stomach Hypertension Father Hypertension Sister Heart Father coroted arteries Heart Brother coroted arteries ALLERGIES Allergen Reactions Oxybutynin Shortness of Breath Sulfasalazine Rash Metoprolol Rash Nystatin Other: See Comments Plavix [Clopidogrel] Rash Sulfa (Sulfonamide * Hives, Shortness of Breath Tape [Adhesive Tape* Rash Patient has rash when using surgery tape and EKG electrodes MEDICATIONS: losartan ( (more content not included)...[facility]09-20-2023 NoteHNO ID: [id number] Author: Viktoriya Marcial MD Service: ? Author Type: Physician Type: Progress Notes Filed: 04/23/2023 11:57 AM Note Text: [facility] [place] SECTION OF CARDIAC PACING and ELECTROPHYSIOLOGY OUTPATIENT VISIT DATE April 23, 2023 OUTPATIENT VISIT TYPE NEW PRIMARY CARE PHYSICIAN: Paresh Carranza [address] [id number] HISTORY OF PRESENT ILLNESS: 72-year-old male with history of essential hypertension, coronary disease, status post remote PCI, paroxysmal atrial fibrillation, on rate control strategy, not anticoagulated due to severe bruising, sinus node dysfunction, status post dual-chamber pacemaker implantation at [facility] in 2012. Device now is approaching MADDY. In addition, I right ventricular lead impedance has been trending up and now exceeds 1400 ohms, and capture threshold has been rising. The most recent interrogation showed RV threshold of 7 V at 1.5 ms. Intermittent electrical noise was noted as well. The patient is paced in the atrium 75% of the time and in the ventricle 45% time. The patient was referred for consideration of lead extraction/replacement and PPG replacement. Mr. Holguin presents for nurse visit accompanied by his spouse. He reports feeling well, denies palpitation, chest discomfort, dizziness, or syncope. His device is located in the right side of the chest (apparently after initial implant in 2012 he developed pocket infection that required device relocation to the right). Echocardiogram in 2021 showed preserved systolic function. Coronary angiography 2019 demonstrated nonobstructive CAD. Not on anticoagulation. PAST MEDICAL HISTORY Diagnosis Date ASHD (arteriosclerotic heart disease) 06/09/2007 Asthma with chronic obstructive pulmonary disease (COPD) ([facility]) 03/01/2015 Atrial fibrillation ([facility]) 09/22/2012 Benign hypertension 2015 CAD (coronary artery disease) Diverticulosis of colon (without mention of hemorrhage) Hemiplegia, nondominant side S/P CVA (cerebrovascular accident) 08/07/2012 HTN (hypertension) Hypercholesterolemia Hyperlipidemia LDL goal <100 2015 Presence of cardiac pacemaker 03/01/2015 Spinal stenosis of lumbar region without neurogenic claudication 03/01/2015 Stroke ([facility]) 08/07/2012 right posterior frontal lobe, left hand weakness Unspecified sleep apnea 03/01/2015 MEDICATIONS: losartan (COZAAR) 25 mg tablet Take 25 mg by mouth once daily. meloxicam (MOBIC) 15 mg tablet Take 15 mg by mouth once daily. levothyroxine 75 mcg cap Take 75 mcg by mouth daily before breakfast. cyanocobalamin (VITAMIN B-12) 1,000 mcg tab Take 1 tablet by mouth once daily. cyanocobalamin 1,000 mcg/mL Inject 1 mL intramuscularly once every month. amiodarone (PACERONE) 100 mg tablet Take 200 mg by mouth once daily. DULoxetine (CYMBALTA) 60 mg capsule Take 60 mg by mouth once daily. rOPINIRole (REQUIP) 1 mg tablet Take 1 mg by mouth daily at bedtime. tamsulosin (FLOMAX) 0.4 mg Take 0.4 mg by mouth once daily. fluticasone-vilanterol (BREO ELLIPTA) 200-25 mcg/dose inhaler Inhale 1 Inhalation as instructed once daily. METHOTREXATE ORAL Take by mouth. BUDESONIDE ORAL Take by mouth. CPAP Use as directed. dilTIAZem CD (CARDIZEM CD) 180 mg 24 hr capsule Take 180 mg by mouth once daily. Dr. Hollingsworth hydroxychloroquine (PLAQUENIL) 200 mg tablet Take 1 tablet by mouth twice daily. Dr. Steen rosuvastatin (CRESTOR) 20 mg tablet Take 1 tablet by mouth daily at bedtime. COMPOUNDED PRESCRIPTION CPAP rivaroxaban (XARELTO) 20 mg tablet Take 1 tablet by mouth daily with dinner. Aspirin 81 mg Tab Take 1 tablet by mouth once daily. Take with food. REVIEW OF SYSTEMS: Review of Systems Constitutional: Negative for fatigue and fever. HENT: Negative for hearing loss. Eyes: Negative for pain. Respiratory: Negative for cough and shortness of breath. Cardiovascular: Negative for chest pain, palpitations and leg swelling. Gastrointestinal: Negative for abdominal pain and blood in stool. Endocrine: Negative for cold intolerance. Genitourinary: Negative for hematuria. Musculoskeletal: Negative for back pain. Skin: Negative for pallor. Neurological: Negative for dizziness and syncope. Psychiatric/Behavioral: The patient is not nervous/anxious. PHYSICAL EXAMINATION: BP 124/70 (BP Site: Left Arm, BP Position: Sitting, BP Cuff Size: Regular Adult) Pulse 60 Ht 5' 9" (1.753 m) Wt 155 lb (70.3 kg) SpO2 96% BMI 22.89 kg/m? BP w/Orthostatic Vitals Date and Time Orthostatic BP Orthostatic Pulse BP Pulse BP Position BP Site BP Cuff Size 04/23/23 1051 -- -- 124/70 60 Sitting Left Arm Regular Adult Physical Exam Constitutional: General: He is not in acute distress. Appearance: He is well-developed. HENT: Head: Normocephalic and atraumatic. Eyes: General: No scleral icte (more content not included)...[facility]09-20-[facility]23 History of Present illness Narrative* Viktoriya Marcial MD - 04/23/2023 11:50 AM EDT Images from the original note were not included. Heart [facility] V[facility] [place] SECTION OF CARDIAC PACING and ELECTROPHYSIOLOGY OUTPATIENT VISIT DATE April 23, 2023 OUTPATIENT VISIT TYPE NEW PRIMARY CARE PHYSICIAN: Paresh Carranza [address] [facility] [address] [place] [address] HISTORY OF PRESENT ILLNESS: 72-year-old male with history of essential hypertension, coronary disease, status post remote PCI, paroxysmal atrial fibrillation, on rate control strategy, not anticoagulated due to severe bruising,sinus node dysfunction, status post dual-chamber pacemaker implantation at [facility] in 2012. Device now is approaching MADDY. In addition, I right ventricular lead impedance has been trending up and now exceeds 1400 ohms, and capture threshold has been rising. The most recent interrogation showed RV threshold of 7 V at 1.5 ms. Intermittent electrical noise was noted as well. The patient is paced in the atrium 75% of the time and in the ventricle 45% time. The patient was referred for consideration of lead extraction/replacement and PPG replacement. Mr. Holguin presents for nurse visit accompanied by his spouse. He reports feeling well, denies palpitation, chest discomfort, dizziness, or syncope. His device is located in the right side of the chest (apparently after initial implant in 2012 he developed pocket infection that required device relocation to the right). Echocardiogram in 2021 showed preserved systolic function. Coronary angiography 2018 demonstrated nonobstructive CAD. Not on anticoagulation. PAST MEDICAL HISTORY Diagnosis Date ASHD (arteriosclerotic heart disease) 06/09/2007 Asthma with chronic obstructive pulmonary disease (COPD) ([facility]) 03/01/2015 Atrial fibrillation ([facility]) 09/22/2012 Benign hypertension 2015 CAD (coronary artery disease) Diverticulosis of colon (without mention of hemorrhage) Hemiplegia, nondominant side S/P CVA (cerebrovascular accident) 08/07/2012 HTN (hypertension) Hypercholesterolemia Hyperlipidemia LDL goal <100 2015 Presence of cardiac pacemaker 03/01/2015 Spinal stenosis of lumbar region without neurogenic claudication 03/01/2015 Stroke ([facility]) 08/07/2012 right posterior frontal lobe, left hand weakness Unspecified sleep apnea 03/01/2015 MEDICATIONS: losartan (COZAAR) 25 mg tablet Take 25 mg by mouth once daily. meloxicam (MOBIC) 15 mg tablet Take 15 mg by mouth once daily. levothyroxine 75 mcg cap Take 75 mcg by mouth daily before breakfast. cyanocobalamin (VITAMIN B-12) 1,000 mcg tab Take 1 tablet by mouth once daily. cyanocobalamin 1,000 mcg/mL Inject 1 mL intramuscularly once every month. amiodarone (PACERONE) 100 mg tablet Take 200 mg by mouth once daily. DULoxetine (CYMBALTA) 60 mg capsule Take 60 mg by mouth once daily. rOPINIRole (REQUIP) 1 mg tablet Take 1 mg by mouth daily at bedtime. tamsulosin (FLOMAX) 0.4 mg Take 0.4 mg by mouth once daily. fluticasone-vilanterol (BREO ELLIPTA) 200-25 mcg/dose inhaler Inhale 1 Inhalation as instructed once daily. METHOTREXATE ORAL Take by mouth. BUDESONIDE ORAL Take by mouth. CPAP Use as directed. dilTIAZem CD (CARDIZEM CD) 180 mg 24 hr capsule Take 180 mg by mouth once daily. Dr. Hollingsworth hydroxychloroquine (PLAQUENIL) 200 mg tablet Take 1 tablet by mouth twice daily. Dr. Steen rosuvastatin (CRESTOR) 20 mg tablet Take 1 tablet by mouth daily at bedtime. COMPOUNDED PRESCRIPTION CPAP rivaroxaban (XARELTO) 20 mg tablet Take 1 tablet by mouth daily with dinner. Aspirin 81 mg Tab Take 1 tablet by mouth once daily. Take with food. REVIEW OF SYSTEMS: Review of Systems Constitutional: Negative for fatigue and fever. HENT: Negative for hearing loss. Eyes: Negative for pain. Respiratory: Negative for cough and shortness of breath. Cardiovascular: Negative for chest pain, palpitations and leg swelling. Gastrointestinal: Negative for abdominal pain and blood in stool. Endocrine: Negative for cold intolerance. Genitourinary: Negative for hematuria. Musculoskeletal: Negative for back pain. Skin: Negative for pallor. Neurological: Negative for dizziness and syncope. Psychiatric/Behavioral: The patient is not nervous/anxious. PHYSICAL EXAMINATION: BP 124/70 (BP Site: Left Arm, BP Position: Sitting, BP Cuff Size: Regular Adult) Pulse 60 Ht 5'9" (1.753 m) Wt 155 lb (70.3 kg) SpO2 96% BMI 22.89 kg/m BP w/Orthostatic Vitals Date and Time Orthostatic BP Orthostatic Pulse BP Pulse BP Position BP Site BP Cuff Size 04/23/23 1051 -- -- 124/70 60 Sitting Left Arm Regular Adult Physical Exam Constitutional: General: He is not in acute distress. Appearance: He is well-developed. HENT: Head: Normocephalic and atraumatic. Eyes: General: No scleral icterus. Conjunctiva/sclera: Conjunctivae normal. Pupils: Pupils are equal, round, and reactive to light. Cardiovascular: Rate and Rhythm: Normal rate and regular rhythm. Comments: Right chest device site without erythema or tenderness. Pulmonary: Effort: No respiratory distress. Breath sounds: No stridor. No wheezing or rales. Abdominal: Tenderness: There is no abdominal tenderness. Skin: General: Skin is warm and dry. Findings: No rash. Neurological: Mental Status: He is alert and oriented to person, place, and time. I have personally reviewed the Electrocardiogram Assessment PLAN AND RECOMMENDATIONS: 72-year-old male with coronary disease, hypertension, sinus node dysfunction, paroxysmal atrial fibrillation, dual-chamber pacemaker with evidence of right ventricular lead fracture. We discussed lead management options, namely lead extraction and replacement versus capping the existing lead and implanting a new lead. We discussed risks, benefits, alternatives, and taken expected over the lead extraction procedure in detail. The patient expressed understanding and indicated that he had all his questions answered. We will contact him shortly for scheduling. ASSESSMENT/PLAN: 1. Pacemaker lead malfunction, initial encounter - ICD9: 996.01, ICD10: T82.110A (primary diagnosis) Plan for lead extraction and replacement as above - SURGICAL REQUEST - ELECTIVE (03/2020) 2. Presence of cardiac pacemaker - ICD9: V45.01, ICD10: Z95.0 Approaching MRI, plan for PV replacement - ECG B/O W INTERP (MED OFFICE) 3. Sinus node dysfunction (HCC) - ICD9: 427.81, ICD10: I49.5 Addressed with a dual-chamber pacemaker implantation 4. Paroxysmal atrial fibrillation (HCC) - ICD9: 427.31, ICD10: I48.0 Asymptomatic, on rate control strategy. The patient is not anticoagulated due to frequent bruising.Watchman device implantation can be considered - can be discussed in the future Viktoriya Marcial MD CONTACT INFORMATION: Viktoriya Marcial MD documented in this encounter[facility] Nurse Note* Adriane Cuellar LPN - 04/23/2023 10:49 AM EDT Patient denies any cardiac complaints or symptoms. Adriane Cuellar LPN documented in this encounterMer[facility]08-30-2021 NotePatient Outreach (NETNAV) BRIGETTE HOLGUIN Wil ([id number]) 1950 M Date Time Provider Department 04/02/21 ALENA ARORA During your visit today, we recorded the following information about you: Alena Arora Population Health Navigator 04/02/2021 11:14 AM Sign when Signing Visit POPULATION HEALTH NAVIGATION OUTREACH Action/ I spoke with patient and he still sees Dr Arreola in [place] No care everywhere Contact made with patient or family member? YES Pt identified by name and : YES Outreach Outcome/Action Spoke to patient or caregiver: PCP confirmed / updated Reason for Outreach Attribution: Provider Off-boarding Payer: Payor: MEDICARE / Plan: MEDICARE A AND B / Product Type: Medicare / Care Gap Reviewed:: Reminder: Reminder note to check Health Maintenance for items below Health Maintenance items due: ABDOMINAL AORTIC ANEURYSM SCREENING Never done COVID-19 VACCINE(1) Never done SPIROMETRY Never done BP CONTROLLED (<130/80) Never done DTAP,TDAP,TD(1 - Tdap) Never done SHINGRIX VACCINE(1 of 2) Never done ADVANCE DIRECTIVE DISCUSSION Never done PNEUMOVAX AGE 65 AND OVER WITH 5YR LOOKBACK(1) Never done DEPRESSION SCREENING due on 08/30/2017 ANNUAL PCP TEAM CHRONIC DISEASE VISIT due on 10/31/2017 COLORECTAL CANCER SCREENING due on 09/15/2019 Advanced Directives Completed: Have you ever planned for future healthcare decisions with a power of personal injury attorney, living will, or advance directives? No. Please bring a copy to your next appointment or email to Referrals: N/A Message Sent to Practice: NO Navigation Signature: Alena Arora Population Health Navigator April 02, 2021 11:13 AM Allergies As of Date: 04/02/2021 Noted Allergy Reaction METOPROLOL 12/25/2020 2 - Rash PLAVIX (CLOPIDOGREL) 12/25/2020 2 - Rash SULFA (SULFONAMIDE ANTIBIOTICS) 06/19/2007 4 - Hives 12 - Shortness of Breath TAPE (ADHESIVE TAPE (ROSINS)) 09/06/2013 2 - Rash Comments: Patient has rash when using surgery tape and EKG electrodes Date Reviewed: 12/25/2020 Reviewed by: Bianka Howell RN - Fully Assessed Reason for Visit: Population Health Navigation Outreach [[id number]] Cmt: Offboarding Prescriptions as of 04/02/2021 - cyanocobalamin (VITAMIN B-12) 1,000 mcg tab Take 1 tablet by mouth once daily. - cyanocobalamin 1,000 mcg/mL Inject 1 mL intramuscularly once every month. - amiodarone (PACERONE) 100 mg tablet Take 200 mg by mouth once daily. - DULoxetine (CYMBALTA) 60 mg capsule Take 60 mg by mouth once daily. - rOPINIRole (REQUIP) 1 mg tablet Take 1 mg by mouth daily at bedtime. - tamsulosin (FLOMAX) 0.4 mg Take 0.4 mg by mouth once daily. - fluticasone-vilanterol (BREO ELLIPTA) 200-25 mcg/dose inhaler Inhale 1 Inhalation as instructed once daily. - METHOTREXATE ORAL Take by mouth. - BUDESONIDE ORAL Take by mouth. - CPAP Use as directed. - dilTIAZem CD (CARDIZEM CD) 180 mg 24 hr capsule Take 180 mg by mouth once daily. Dr. Hollingsworth - hydroxychloroquine (PLAQUENIL) 200 mg tablet Take 1 tablet by mouth twice daily. Dr. Steen - rosuvastatin (CRESTOR) 20 mg tablet Take 1 tablet by mouth daily at bedtime. - COMPOUNDED PRESCRIPTION CPAP - rivaroxaban (XARELTO) 20 mg tablet Take 1 tablet by mouth daily with dinner. - Aspirin 81 mg Tab Take 1 tablet by mouth once daily. Take with food. Meds Comments as of 09/06/2013: Problem List As Of Date 04/02/2021 Noted Resolved ASHD (arteriosclerotic heart disease) [I25.10] 06/09/2007 ABNORMAL LIVER FUNCTION STUDY [R94.5] 06/10/2007 Inflamed seborrheic keratosis [L82.0] 01/02/2009 03/01/2015 SKIN TAG PAPILLOMAS///SKIN HYPERTRO/ATROPH NOS *01/02/2009 03/01/2015 Other seborrheic keratosis [L82.1] 01/02/2009 03/01/2015 SOLAR LENTIGENES///DYSCHROMIA OTHER [L81.9] 01/02/2009 03/01/2015 Other chronic dermatitis due to solar radiation*01/02/2009 03/01/2015 Benign neoplasm of skin of trunk, except scrotu*01/02/2009 03/01/2015 POSTINFLAMMATORY HYPER/HYPOPIG///DYSCHROMIA UNS*02/03/2009 03/01/2015 UNCERTAIN BEHAV NEOPL SKIN//IRRITATED NEVUS MATTHEW*02/03/2009 03/01/2015 Open wound(s) (multiple) of unspecified site(s)*02/03/2009 03/01/2015 Abdominal Pain, Generalized [R10.84] 07/06/2009 BPH (benign prostatic hyperplasia) [N40.0] 10/02/2011 Epididymitis [N45.1] 10/02/2011 03/01/2015 Testalgia [N50.819] 11/19/2011 03/01/2015 Epididymal cyst [N50.3] 11/19/2011 03/01/2015 Hemiplegia, nondominant side S/P CVA (cerebrova*09/22/2012 03/01/2015 Cervical spondylosis [M47.812] 08/23/2013 Chronic anticoagulation [Z79.01] 08/23/2013 Asthma with chronic obstructive pulmonary disea*03/01/2015 Spinal stenosis of lumbar region without neurog*03/01/2015 2015 Presence of cardiac pacemaker [Z95.0] 03/01/2015 Unspecified sleep apnea [G47.30] 03/01/2015 Paroxysmal atrial fibrillation (HCC) [ (more content not included)...[facility]08-30-2021 NoteHNO ID: [id number] Author: Alena Arora Population Health Navigator Service: ? Author Type: ? Type: Progress Notes Filed: 04/02/2021 2:59 PM Note Text: POPULATION HEALTH NAVIGATION OUTREACH Action/FYI I spoke with patient and he still sees Dr Arreola in [place] No care everywhere Contact made with patient or family member? YES Pt identified by name and : YES Outreach Outcome/Action Spoke to patient or caregiver: PCP confirmed / updated Reason for Outreach Attribution: Provider Off-boarding Payer: Payor: MEDICARE / Plan: MEDICARE A AND B / Product Type: Medicare / Care Gap Reviewed:: Reminder: Reminder note to check Health Maintenance for items below Health Maintenance items due: ABDOMINAL AORTIC ANEURYSM SCREENING Never done COVID-19 VACCINE(1) Never done SPIROMETRY Never done BP CONTROLLED (<130/80) Never done DTAP,TDAP,TD(1 - Tdap) Never done SHINGRIX VACCINE(1 of 2) Never done ADVANCE DIRECTIVE DISCUSSION Never done PNEUMOVAX AGE 65 AND OVER WITH 5YR LOOKBACK(1) Never done DEPRESSION SCREENING due on 08/30/2017 ANNUAL PCP TEAM CHRONIC DISEASE VISIT due on 10/31/2017 COLORECTAL CANCER SCREENING due on 09/15/2019 Advanced Directives Completed: Have you ever planned for future healthcare decisions with a power of personal injury attorney, living will, or advance directives? No. Please bring a copy to your next appointment or email to Referrals: N/A Message Sent to Practice: NO Navigation Signature: Alena Arora Population Health Navigator April 02, 2021 11:13 [facility]07-29-2015 History of Past illness Narrative* Problem Noted Date Diagnosed Date Resolved Date Spinal stenosis of lumbar re gion without neurogenic claudication 03/01/2015 2015 Hemiplegia, nondominant side S/P CVA (cerebrovascular accident) 09/22/2012 03/01/2015 Testalgia 11/19/2011 03/01/2015 Epididymal cyst 11/19/2011 03/01/2015 Epididymitis 10/02/2011 03/01/2015 POSTINFLAMMATORY HYPER/HYPOP IG///DYSCHROMIA UNSPEC 02/03/2009 03/01/2015 UNCERTAIN BEHAV NEOPL SKIN// IRRITATED NEVUS BACK 02/03/2009 03/01/2015 Open wound(s) (multiple) of unspecified site(s), without mention of complication 02/03/2009 03/01/2015 Inflamed seborrheic keratosis 01/02/2009 03/01/2015 SKIN TAG PAPILLOMAS///SKIN H YPERTRO/ATROPH NOS 01/02/2009 03/01/2015 Other seborrheic keratosis 01/02/2009 0 03/01/2015 SOLAR LENTIGENES///DYSCHROMIA OTHER 01/02/2009 03/01/2015 Other chronic dermatitis due to solar radiation 01/02/2009 03/01/2015 Benign neoplasm of skin of t runk, except scrotum 01/02/2009 03/01/2015 Abdominal pain, generalized 07/06/2009 Overview: left side documented as of this encounter (statuses as of 04/23/2023) [facility]07-29-2015 History of Past illness Narrative* Problem Noted Date Diagnosed Date Resolved Date Spinal stenosis of lumbar re gion without neurogenic claudication 03/01/2015 2015 Hemiplegia, nondominant side S/P CVA (cerebrovascular accident) 09/22/2012 03/01/2015 Testalgia 11/19/2011 03/01/2015 Epididymal cyst 11/19/2011 03/01/2015 Epididymitis 10/02/2011 03/01/2015 POSTINFLAMMATORY HYPER/HYPOP IG///DYSCHROMIA UNSPEC 02/03/2009 03/01/2015 UNCERTAIN BEHAV NEOPL SKIN// IRRITATED NEVUS BACK 02/03/2009 03/01/2015 Open wound(s) (multiple) of unspecified site(s), without mention of complication 02/03/2009 03/01/2015 Inflamed seborrheic keratosis 01/02/2009 03/01/2015 SKIN TAG PAPILLOMAS///SKIN H YPERTRO/ATROPH NOS 01/02/2009 03/01/2015 Other seborrheic keratosis 01/02/2009 0 03/01/2015 SOLAR LENTIGENES///DYSCHROMIA OTHER 01/02/2009 03/01/2015 Other chronic dermatitis due to solar radiation 01/02/2009 03/01/2015 Benign neoplasm of skin of t runk, except scrotum 01/02/2009 03/01/2015 Abdominal pain, generalized 07/06/2009 Overview: left side documented as of this encounter (statuses as of 06/20/2023) [facility]05-07-2013 Evaluation note* Diagnosis Onset Date Resolution Status B12 deficiency acute Asthma chronic Chest pain acute DOMÍNGUEZ (dyspnea on exertion) [place] History of permanent cardiac pacemaker 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, 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 Essential (primary) hypertension chronic History of coronary artery stent placement July 232012 chronic HLD (hyperlipidemia) chronic Paroxysmal atrial fibrillation chronic Sick sinus syndrome chronic History of permanent cardiac pacemaker 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, 2012 acute Paroxysmal atrial fibrillation chronic Sick sinus syndrome chronic Sinus bradycardia chronic Gcibr-Hbxafbtzc-Xfltm (WPW) syndrome chronic B12 deficiency acute B12 deficiency acute 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 alf current use of amiodarone acute Asthma chronic Chronic kidney disease (CKD) chronic Essential (primary) hypertension chronic HLD (hyperlipidemia) chronic Paroxysmal atrial fibrillation [facility] Work Phone: 1(762) 796-518705-07-2013 Evaluation note* Diagnosis Onset Date Resolution Status Asthma chronic Chest pain acute DOMÍNGUEZ (dyspnea on exertion) [place] History of permanent cardiac pacemaker 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, 2012 acute alf current use of amiodarone acute Essential (primary) hypertension chronic History of coronary artery stent placement July 232012 chronic HLD (hyperlipidemia) chronic Paroxysmal atrial fibrillation chronic Sick sinus syndrome chronic History of permanent cardiac pacemaker 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, 2012 acute Paroxysmal atrial fibrillation chronic Sick sinus syndrome chronic Sinus bradycardia chronic Nwoel-Dtbeekrtx-Vprpu (WPW) syndrome chronic B12 deficiency acute B12 deficiency acute Current use of longterm anticoagulation acute alf current use of amiodarone acute Asthma chronic Chronic kidney disease (CKD) chronic Essential (primary) hypertension chronic HLD (hyperlipidemia) chronic Paroxysmal atrial fibrillation chronic Acute URI acute [facility] Work Phone: 1(385) 389-964305-07-2013 Evaluation note* Diagnosis Onset Date Resolution Status Chest pain acute DOMÍNGUEZ (dyspnea on exertion) [place] History of permanent cardiac pacemaker 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, 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 Essential (primary) hypertension chronic History of coronary artery stent placement July 232012 chronic HLD (hyperlipidemia) chronic Paroxysmal atrial fibrillation chronic Sick sinus syndrome chronic History of permanent cardiac pacemaker 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, 2012 acute Paroxysmal atrial fibrillation chronic Sick sinus syndrome chronic Sinus bradycardia chronic Dzcvt-Xkmlpipvd-Xddbe (WPW) syndrome chronic B12 deficiency acute B12 deficiency acute 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 Asthma chronic Chronic kidney disease (CKD) chronic Essential (primary) hypertension chronic HLD (hyperlipidemia) chronic Paroxysmal atrial fibrillation chronic Acute URI acute [facility] Work Phone: 1([phone]) 854-755905-07-2013 Evaluation note* Diagnosis Onset Date Resolution Status History of permanent cardiac pacemaker 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, 2012 acute Paroxysmal atrial fibrillation chronic Sick sinus syndrome chronic Jrsrb-Cimuuhsja-Ypdvz (WPW) syndrome chronic History of permanent cardiac pacemaker 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, 2012 acute Essential (primary) hypertension chronic History of coronary artery stent placement July 232012 chronic HLD (hyperlipidemia) chronic alf current use of amiodarone chronic Paroxysmal atrial fibrillation chronic Sick sinus syndrome chronic History of permanent cardiac pacemaker 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, 2012 acute Paroxysmal atrial fibrillation chronic Sick sinus syndrome chronic Pyjth-Ykcbuqbut-Dmlmw (WPW) syndrome chronic History of permanent cardiac pacemaker 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, 2012 acute Essential (primary) hypertension chronic History of coronary artery stent placement July 232012 chronic HLD (hyperlipidemia) chronic alf current use of amiodarone chronic Paroxysmal atrial fibrillation chronic Sick sinus syndrome [facility] Work Phone: 1([phone] 460-462505-07-2013 Evaluation note* Diagnosis Onset Date Resolution Status History of permanent cardiac pacemaker 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, 2012 acute Paroxysmal atrial fibrillation chronic Sick sinus syndrome chronic Ragbm-Bfgnnonzt-Uizwh (WPW) syndrome chronic History of permanent cardiac pacemaker 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, 2012 acute Essential (primary) hypertension chronic History of coronary artery stent placement July 232012 chronic HLD (hyperlipidemia) chronic alf current use of amiodarone chronic Paroxysmal atrial fibrillation chronic Sick sinus syndrome [facility] Work Phone: 1(383) 286-928505-07-2013 Evaluation note* Diagnosis Onset Date Resolution Status History of permanent cardiac pacemaker 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2012 acute Paroxysmal atrial fibrillation chronic Sick sinus syndrome chronic Vhogf-Ztanpclja-Nmazw (WPW) syndrome [facility] Work Phone: [phone] Evaluation note* Diagnosis Onset Date Resolution Status History of permanent cardiac pacemaker 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, 2012 acute Paroxysmal atrial fibrillation chronic Sick sinus syndrome chronic Feawm-Ndhqjvdgn-Gdeyj (WPW) syndrome chronic History of permanent cardiac pacemaker 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, 2012 acute Paroxysmal atrial fibrillation chronic Sick sinus syndrome chronic Vfkis-Mzktgniht-Xktme (WPW) syndrome chronic History of permanent cardiac pacemaker 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, 2012 acute Essential (primary) hypertension chronic History of coronary artery stent placement July 232012 chronic HLD (hyperlipidemia) chronic Paroxysmal atrial fibrillation chronic Sick sinus syndrome [facility] Work Phone: [phone]) [phone] Evaluation note* Diagnosis Onset Date Resolution Status History of permanent cardiac pacemaker 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, 2012 acute Paroxysmal atrial fibrillation chronic Sick sinus syndrome chronic Htoxe-Hutdigbyt-Cqjzg (WPW) syndrome chronic History of permanent cardiac pacemaker 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, 2012 acute Essential (primary) hypertension chronic History of coronary artery stent placement July 232012 chronic HLD (hyperlipidemia) chronic Paroxysmal atrial fibrillation chronic Sick sinus syndrome [facility] Work Phone: 1([phone]) 574-656105-07-2013 Evaluation note* Diagnosis Onset Date Resolution Status History of permanent cardiac pacemaker 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2012 acute Paroxysmal atrial fibrillation chronic Sick sinus syndrome chronic Sinus bradycardia chronic Rpvkr-Ulhnrqmmn-Gpabf (WPW) syndrome chronic History of permanent cardiac pacemaker 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2012 acute Sick sinus syndrome chronic Sinus bradycardia chronic Hjxcv-Jltgltohw-Fqesb (WPW) syndrome [facility] Work Phone: 1([phone]) [phone] Evaluation note* Diagnosis Onset Date Resolution Status History of permanent cardiac pacemaker 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, 2012 acute Sick sinus syndrome chronic Sinus bradycardia chronic Agnck-Jiehqonse-Hqiwx (WPW) syndrome chronic History of permanent cardiac pacemaker 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, 2012 acute Essential (primary) hypertension chronic History of coronary artery stent placement July 232012 chronic HLD (hyperlipidemia) chronic Paroxysmal atrial fibrillation [facility] Work Phone: 1(405) 994-529205-07-2013 Evaluation note* Diagnosis Onset Date Resolution Status Admit Date History of permanent cardiac pacemaker 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, 2012 acute Apri l 2024 10:15am Essential (primary) hypertension chronic November 08, 2024 10:15am History of coronary artery stent placement July 23, 2013 chronic November 08, 10:15am HLD (hyperlipidemia) chronic Apri l 2024 10:15am Paroxysmal atrial fibrillation chronic November 08, 2024 10:15am History of permanent cardiac pacemaker 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, 2012 acute Apri l 2024 10:15am Sick sinus syndrome chronic November 08, 2024 10:15am Sinus bradycardia chronic November 082024 10:15am Wtlno-Laqhkwwvd-Kcpgm (WPW) syndrome chronic November 08, 2024 10:15am [facility] Work Phone: 1([phone] 160-697005-07-2013 Evaluation note* Diagnosis Onset Date Resolution Status Admit Date History of permanent cardiac pacemaker 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, 2012 acute Apri 2024 10:15am Essential (primary) hypertension chronic November 08, 2024 10:15am History of coronary artery stent placement July 23, 2013 chronic November 08 025 10:15am HLD (hyperlipidemia) chronic 2024 10:15am Paroxysmal atrial fibrillation chronic November 08, 2024 10:15am History of permanent cardiac pacemaker 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, 2012 acute 2024 10:15am Sick sinus syndrome chronic November 08, 2024 10:15am Sinus bradycardia chronic November 082024 10:15am Isxut-Prpqxbwsn-Mvvvk (WPW) syndrome chronic November 08, 2024 10:15am Greater trochanteric bursitis of right hip acute December 31, 2024 9:24am IT band syndrome acute December 9:24am Lumbar radiculopathy acute December 31, 2024 9:24am [facility] Work Phone: [phone] Evaluation note* Diagnosis Onset Date Resolution Status Admit Date History of permanent cardiac pacemaker 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, 2012 acute 2024 10:15am Essential (primary) hypertension chronic November 08, 2024 10:15am History of coronary artery stent placement July 23, 2013 chronic November 08 025 10:15am HLD (hyperlipidemia) chronic 2024 10:15am Paroxysmal atrial fibrillation chronic November 08, 2024 10:15am History of permanent cardiac pacemaker 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, 2012 acute Novi 2024 10:15am Sick sinus syndrome chronic November 08, 2024 10:15am Sinus bradycardia chronic November 082024 10:15am Qldtq-Rsuhfohga-Iwicd (WPW) syndrome chronic November 08, 2024 10:15am Degenerative joint disease of right hip acute December 31, 2024 9:24am Greater trochanteric bursitis of right hip acute December 31, 2024 9:24am IT band syndrome acute December 9:24am Right lumbar radiculitis acute December 31, 2024 9:24am History of permanent cardiac pacemaker 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, 2012 acute January 05, 2025 9:18am Essential (primary) hypertension chronic January 05, 2025 9:18am History of coronary artery stent placement July 23, 2013 chronic January 05 9:18am HLD (hyperlipidemia) chronic January 05, 2025 9:18am Paroxysmal atrial fibrillation chronic January 05, 2025 9:18am [facility] Work Phone: [phone] Evaluation note* Diagnosis Onset Date Resolution Status Admit Date History of permanent cardiac pacemaker 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, 2012 acute January 05, 2025 9 :18am Essential (primary) hypertension chronic January 05, 2025 9 :18am History of coronary artery stent placement July 23, 2013 chronic January 05, 2025 9:18am HLD (hyperlipidemia) chronic January 05, 2025 9:18am Paroxysmal atrial fibrillation chronic January 05, 2025 9 :18am Degenerative joint disease of right hip acute April 112024 3:46pm Greater trochanteric bursitis of right hip acute April 11, 2025 3:46pm Lumbar radiculopathy acute Apr 3:46pm Right lumbar radiculitis acute April 11, 2025 3:46pm Degenerative joint disease of right hip acute April 042024 3:32pm [facility] Work Phone: Evaluation note* Diagnosis Onset Date Resolution Status Current use of longterm anticoagulation acute Leg pain acute Leg swelling acute Essential (primary) hypertension chronic Paroxysmal atrial fibrillation chronic 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 Left anterior knee pain acut e Leg pain acute Leg swelling acute Chronic back pain chronic Essential (primary) hypertension chronic Paroxysmal atrial fibrillation chronic B12 deficiency acute Asthma chronic Chest pain acute DOMÍNGUEZ (dyspnea on exertion) [place] History of permanent cardiac pacemaker 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, 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 Essential (primary) hypertension chronic History of coronary artery stent placement July 232012 chronic HLD (hyperlipidemia) chronic Paroxysmal atrial fibrillation chronic Sick sinus syndrome chronic [facility] Work Phone: Evaluation note* Diagnosis Onset Date Resolution Status 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 Leg pain acute Leg swelling acute Essential (primary) hypertension chronic Paroxysmal atrial fibrillation chronic Current use of longterm anticoagulation acute Left anterior knee pain acut e Leg pain acute Leg swelling acute Chronic back pain chronic Essential (primary) hypertension chronic Paroxysmal atrial fibrillation chronic B12 deficiency acute Asthma chronic Chest pain acute DOMÍNGUEZ (dyspnea on exertion) [place] History of permanent cardiac pacemaker 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, 2012 acute alf current use of amiodarone acute Essential (primary) hypertension chronic History of coronary artery stent placement July 232012 chronic HLD (hyperlipidemia) chronic Paroxysmal atrial fibrillation chronic Sick sinus syndrome chronic History of permanent cardiac pacemaker 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, 2012 acute Paroxysmal atrial fibrillation chronic Sick sinus syndrome chronic Sinus bradycardia chronic Rqicc-Qjtpvunub-Ajfmo (WPW) syndrome chronic [facility] Work Phone: Evaluation noteNo assessment information available [facility] Work Phone: Evaluation note* Diagnosis Pacemaker lead malfunction, initial encounter- Primary Presence of cardiac pacemaker Cardiac pacemaker in situ Sinus node dysfunction (HCC) Sinoatrial node dysfunction Paroxysmal atrial fibrillation (HCC) Atrial fibrillation [facility] Dyspnea, unspecified type- Primary Dyspnea, unspecified [facility], unspecified type [facility] Additional Instructions [facility] Used?: [facility] Work Phone: Progress note Author Jairo Grande [place] [facility] Note Date/Time January 05, 2025 10:03 am [facility] [address] [place] [address] OFFICE VISIT Date of Service: 01/05/25 MR#: [id number] Acct: [id number] Name: BRIGETTE HOLGUIN Rep #: [id number] : 1950 Provider: ANABEL Grande Age/Sex: 74/M [place] [facility] [place]: Signed HPI HPI History of Present Illness Details: Mr. Holguin is a 74-year-old white male, who presents today for outpatient cardiovascular followup. As you know, he has a history of hypertension, hypercholesterolemia, paroxysmal atrial fibrillation, coronary artery disease status post angioplasty and drug-eluting stenting to the LAD at [facility] on 07/23/13. At that time he received a 3.0X 20 Promus element stent. The patient had a known tiny 1.5-2 mm in diameter diagonal #1 branch wasis diffusely diseased since catheterization in 2006. He has never had a balloonangioplasty of that vessel. He returned on 08/21/16 with recurrent chest pain and then underwent a stress test which suggested possible anterior ischemia. Werepeated his catheterization which demonstrated nonobstructive disease of his RCA and left circumflex, widely patent stent of his LAD but loss of that tiny little diagonal branch. No intervention was attempted. Patient was subsequently sent home on medical management. He had been placed on a beta-elza. 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 He did develop an infection of the pacemaker and ithad to be explanted and placed on the right side. He does knowledge improvement in symptoms since last office visit. [facility]. He denies chest, arm, jaw, or neck discomfort. He denies palpitations. He denies bilateral lower extremity edema. He denies claudication. He states shortness of breath with activity and at rest that he attributes to asthma/emphysema. He denies orthopnea or PND. He denies chronic cough. He denies significant, sudden weight gain. He denies lightheadedness, dizziness, near-syncope, or syncope. He denies blood in urine, blood in stool, or epistaxis. He denies fever or chills. He denies myalgia. He states fatigue. His exercise level has remainedstable via work which requires walking. 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 Required: No Accompanied by: Is patient in pain?: No Allergies Sulfa (Sulfonamide Antibiotics) Allergy (Mild, Verified 01/05/25 09:35) Rash clopidogrel (From Plavix) Adverse Reaction (Severe, Verified 01/05/25 09:35) Other - genetic nonresponder, needs brillinta oxybutynin Adverse Reaction (Severe, Verified 01/05/25 09:35) short of breath, very dry mouth metoprolol (From Lopressor) Adverse Reaction (Mild, Verified 01/05/25 09:35) - bronchospasm nystatin Adverse Reaction (Unknown, Verified 01/05/25 09:35) Unknown adhesive tape Adverse Reaction (Verified 01/05/25 09:35) Itching Medications ?Medication ?Instructions ?Recorded ?Confirmed ?Type albuterol sulfate 90 mcg/actuation 2 puff inhalation Q 4H PRN 02/19/24 01/05/25 Rx aerosol inhaler (Ventolin HFA) shortness of breath or wheezing #18 grams rivaroxaban 20 mg tablet (Xarelto) 20 mg PO DAILY #90 tabs 05/05/24 01/05/25 Rx levothyroxine 25 mcg tablet 25 mcg PO QDAY Filling as 07/07/24 01/05/25 Rx courtesy, pt needs to get from Primary #90 tabs losartan 25 mg tablet 25 mg PO DAILY #90 tabs 12/0 11/2501/05/25 Rx nitroglycerin 0.4 mg sublingual 0.4 mg sublingual Q5M PRN Chest 10/27/24 01/05/25 Rx tablet Pain #25 tabs budesonide 160 mcg-glycopyr 9 inh inhalation lunges 01/05/25 History mcg-formot 4.8 mcg/actuation HFA inhaler diltiazem HCl 240 mg 240 mg PO QAM #30 tabs 01/0501/05/25 Rx tablet,extended release 24 hr tiotropium bromide 2.5 inhalation Breathing problem s 01/05/25 01/05/25 History mcg/actuation mist for inhalation (Spiriva Respimat) Ejection fraction %: 65 Have you fallen in the past year?: No PFSH Medical History Wears glasses Thyroid disease Blood disorder History of echocardiogram History of stress test Hypertension Cardiology follow-up encounter Knee pain with internal derangement determined by x-ray History of CVA (cerebrovascular accident) (08/2012) Chronic kidney disease (CKD) Essential (primary) hypertension B12 deficiency Complex partial seizure Non-smoker TIA (transient ischemic attack) Urinary retention Segmental and somatic dysfunction of pelvic region Candidiasis of mouth Rheumatoid arthritis BRANDON (obstructive sleep apnea) Carotid artery stenosis HLD (hyperlipidemia) Sinus bradycardia Sdbge-Mrhweabil-Qhcxz (WPW) syndrome Sick sinus syndrome Old myocardial infarction BPH (benign prostatic hyperplasia) Atherosclerosis of coronary artery of upper [place] heart without angina pectoris Segmental and somatic dysfunction of cervical region Segmental and somatic dysfunction of thoracic region Segmental and somatic dysfunction of lumbar region 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 Surgical History History of shoulder surgery (01/2021) History of permanent cardiac pacemaker placement (12/08/12) History of spinal surgery History of herniorrhaphy History of left heart catheterization (08/02/19) History of coronary artery stent placement (07/23/13) Family History Brother CVA (cerebral vascular accident) Carotid artery stenosis Father CVA (cerebral vascular accident) Carotid artery stenosis Mother Stomach cancer Social History household members: spouse Smoking Status: Never smoker alcohol intake: never substance use type: does not use what type of physical activity do you participate in: walking ROS Const Const: Negative for fatigue or weakness Eyes Eyes: Negative for change in vision ENT ENT: Negative for dizziness or balance problems Cardio Chest Pain: No Palpitations: No Edema: None Resp Respiratory: Positive for SOB with activity (Occasionally); Negative for SOB at rest or SOB orthopneaundefinedSOB lying down GI GI: Negative nausea or heartburn Musc Musc: Negative for balance problems Neuro Neuro: Negative for dizziness, lightheadedness, near syncope, syncope or weakness Endo Endo: Negative for fatigue Cardiology Exam Const Appearance: cooperative, healthy appearing, comfortable and no acute distress Nutritional Appearance: well nourished and overweight Orientation: alert, awake and oriented x3 Head Head: normal to inspection Ears: hearing grossly normal bilaterally Nose: external nose normal Face and Sinus: face symmetric Mouth: moist mucous membranes Eyes General: appearance normal, both eyes and all related structures Eyelids: eyelids normal EOM: EOM intact bilaterally Neck Neck: normal visual inspection and no JVD Carotids: normal carotid upstroke Chest Chest inspection: normal inspection of the chest, symmetric chest movement, Pacemaker/ICD Yes right pectoral incision and normal respiratory effort; Negative cough Auscultation: Bilateral: Clear to Auscultation Cardio Rate: regular rate Rhythm: regular rhythm Heart sounds: S1 normal and S2 normal; Negative rub, gallop or murmur GI GI: normal to inspection Neuro General: patient alert, patient awake, patient oriented x3 and CN's II-XI intactbilaterally Skin Skin: no rashes or lesions noted Extremities Pulses: Normal: Right Posterior Tibial Pulse, Left Posterior Tibial Pulse, RightRadial Pulse and Left Radial Pulse Lower Extremity Edema: None: Bilateral Psych Psychological: normal affect Supplemental Info Supplemental Information Echocardiogram from 11/16/2024: Interpretation Summary Normal LV size. The left ventricular ejection fraction is 65 %. Stage 1 diastolic dysfunction. Mild (1+) tricuspid valve insufficiency. Echocardiogram 11/08/21 Interpretation Summary Normal LV size. Left ventricular systolic function is normal. The estimated ejection fraction is 55 %. Mild to moderately dilated aortic root. Mild concentric left ventricular hypertrophy. Stage 1 diastolic dysfunction. Stress test from 11/16/2024: Conclusion: Normal pharmacologic myocardial perfusion stress test. Preserved ejection fraction. Cardiac catheterization 08/02/2019: CONCLUSIONS Preserved Left Ventricular systolic function with normal EDP LVEF: by LV gram 65 % Non obstructive coronary arteries CORONARY ANGIOGRAPHY DOMINANCE: Right Dominant LEFT HEART ASSESSMENT Left Ventricular Ejection Fraction: by LV Gram 65 % Normal LV wall motion Normal Left Ventricular systolic function LEFT MAIN: Angiographically normal LEFT ANTERIOR DESCENDING ARTERY: PROX LAD: Mild luminal irregularities less than 30% MID LAD: Previously placed stent is patent CIRCUMFLEX ARTERY: PROX CIRC: Mild luminal irregularities less than 30% RIGHT CORONARY ARTERY: Non-obstructive RT PLV: Mild luminal irregularities less than 30% RT PDA: Proximal - Non-obstructive Assessment and Plan Assessment and Plan (1) History of coronary artery stent placement: Status: Chronic Comment: PCI-MELL-LAD w/ 3.0X 20 Promus element stent 07/23/13 Plan: Echocardiogram in November 2024 showed LV function of 65%. Stress test in November 2024 was a normal pharmacologic myocardial perfusion stress test. Patient's device appears to be functioning appropriately. We will continue to monitor this with routine/scheduled follow-ups. (2) History of permanent cardiac pacemaker placement: Status: Acute Comment: 06/2023 Plan: Device evaluation from 11/08/2024 showed atrial paced 62%, ventricular paced 4.5%,battery life 7.3 to 8.2 years, 11% atrial burden, and 24 ventricular high rate episodes. There is noted to be atrial flutter with longest episode 21 hours and13 minutes, MVT at 181 bpm for 13 beats, atrial flutter with RVR at 181 bpm and 184 bpm. Patient's device appears to be functioning appropriately. We will continue to monitor this with routine/scheduled follow-ups. (3) Paroxysmal atrial fibrillation: Status: Chronic Plan: His [id number] score is 6/7. He was asked to continue with Xarelto for CVA protection. Will increase diltiazem to assist with heart rate control and bloodpressure control. His amiodarone has been discontinued previously on account ofthyroid related issues. He since has started thyroid medication. Future options may include returning to amiodarone, bearing in mind previous thyroid intolerance. (4) Essential (primary) hypertension: Status: Chronic Plan: This is elevated today in office. Will increase diltiazem for better blood pressure control. This will also assist with tachycardia. (5) HLD (hyperlipidemia): Status: Chronic Qualifiers: Hyperlipidemia type: mixed hyperlipidemia Qualified Code(s): E78.2 - Mixed hyperlipidemia Plan: He will continue risk factor and lifestyle modification. Medications: New diltiazem HCl ER 240 mg PO QAM 30 tabs 11RF Discontinued diltiazem HCl ER Discontinued Reason: Order Changed 180 mg PO QAM 90 caps 3RF Plan Details Additional Comments: Thank you for allowing us to participate in the patients plan of care, if you have any questions please do not hesitate to call. Plan was reviewed with patient/family member along with red flag symptoms. Understanding was acknowledged. Questions were answered to apparent satisfaction. This note was generated using a voice recognition system and there may be incorrect words, spelling or punctuation that were not noted when reviewing the office note prior to saving. Portions of this documentation were copied and pasted from previous office visitnotes to provide a cohesive continuity of the history. The note has been reviewed, edited, and updated, as necessary. 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) Coding Level of Care Code Off vis,est,level 4 Diagnoses History of coronary artery stent placement Z95.5 History of permanent cardiac pacemaker placement Z95.0 Paroxysmal atrial fibrillation I48.0 Essential (primary) hypertension I10 Mixed hyperlipidemia E78.2 Hyperlipidemia type: mixed hyperlipidemia Coding Level of Care Code Off vis,est,level 4 Diagnoses History of coronary artery stent placement Z95.5 History of permanent cardiac pacemaker placement Z95.0 Paroxysmal atrial fibrillation I48.0 Essential (primary) hypertension I10 Mixed hyperlipidemia E78.2 Hyperlipidemia type: mixed hyperlipidemia Clinical Quality Measures Falls Risk Screening/Assistive Devices Have you fallen in the past year?: No Cardiac Ejection fraction %: 65 01/05/25 1003 <Electronically signed by Jairo Hart NP-C> Date _ Jairo Grande NP SHOE STAINER-C Cosigner Signature: Date (if applicable) CC: Dr. Paresh Carranza MD ~ [facility] [employer] Work Phone: Reason for referral (narrative)No reason for referral information available[facility]Ke[facility] Work Phone: Summary Purpose Family History No Family History Records Found Relationship Condition Age at Onset Recorded Date/T ricky brother Cerebrovascular accident (CVA) Unknown Stenosis of carotid artery Unknown father Cerebrovascular accident (CVA) Unknown mother Malignant neoplasm of stomach Unknown Advance Directives No Advanced Directives Records Found Advance Directive Response Recorded Date/ Time Advance Directives No December 12 9:18am Living Will Yes February 03, 2021 1 1:10am Power of Mold Filler Yes February 03, 2021 11:10am Advance Directive Response Recorded Date/ Time Advance Directives No December 12 9:18am Living Will No November 27, 2021 9:03pm Power of Mold Filler No November 27 9:03pm Advance Directive Response Recorded Date/ Time Advance Directives No January 09 8:34am Living Will No January 09, 2022 8 :34am Power of Mold Filler No Allegra 8th, 2022 8:34am Advance Directive Response Recorded Date/ Time Advance Directives No January 09 7:34am Living Will No January 09, 2022 7 :34am Power of Mold Filler No January 09, 2022 7:34am Latest Code Status on File Code Status Date Activated Date Inactivated Comments Full Code 12/25/2020 11:50 PM 12/27/2020 6:00 PM Question Answer Comments Full Code Order Discussed With: Patient Advance Directive Response Recorded Date/ Time Advance Directives No January 09 7:34am Living Will No June 11 10:15am Power of Mold Filler No June 11, 2023 10:15am Advance Directive Response Recorded Date/ Time Advance Directives No January 09 8:34am Living Will No June 11 11:15am Power of Mold Filler No June 11, 2023 11:15am Advance Directive Response Recorded Date/ Time Advance Directives No January 09 8:34am Advance Directive Response Recorded Date/ Time Living Will No June 11 11:15am Do you have a Healthcare Power of Mold Filler? No June 11, 2023 11:15am Advance Directives No January 09 8:34am Chief Complaint and Reason for Visit Chief Complaint B12 INJ L LEG RED AND SWOLLEN RIGHT LEG SWELLING LEFT LEG xray B12 INJ discuss inhalers B12 INJ PER MSG FROM NURSE & PMW EORDERS CP *NEVIN* CP *NEVIN* B12 INJ CP, DYSPNEA *NEVIN* Reason for Visit 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 Leg pain Leg swelling Essential (primary) hypertension Paroxysmal atrial fibrillation Current use of longterm anticoagulation Left anterior knee pain Leg pain Leg swelling Chronic back pain Essential (primary) hypertension Paroxysmal atrial fibrillation B12 deficiency Asthma Chest pain DOMÍNGUEZ (dyspnea on exertion) 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 Essential (primary) hypertension History of coronary artery stent placement HLD (hyperlipidemia) Paroxysmal atrial fibrillation Sick sinus syndrome Chief Complaint B12 INJ L LEG RED AND SWOLLEN RIGHT LEG SWELLING LEFT LEG xray B12 INJ discuss inhalers B12 INJ PER MSG FROM NURSE & PMW EORDERS CP *NEVIN* CP *NEVIN* B12 INJ CP, DYSPNEA *NEVIN* INT LABS/ TWO ORDERING MARIBELL 6 mos PPM f/u FACIAL EDEMA Reason for Visit Current use of longterm anticoagulation Leg pain Leg swelling Essential (primary) hypertension Paroxysmal atrial fibrillation 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 Left anterior knee pain Leg pain Leg swelling Chronic back pain Essential (primary) hypertension Paroxysmal atrial fibrillation B12 deficiency Asthma Chest pain DOMÍNGUEZ (dyspnea on exertion) History of permanent cardiac pacemaker placement alf current use of amiodarone Essential (primary) hypertension History of coronary artery stent placement HLD (hyperlipidemia) Paroxysmal atrial fibrillation Sick sinus syndrome History of permanent cardiac pacemaker placement Paroxysmal atrial fibrillation Sick sinus syndrome Sinus bradycardia Dcjjh-Drarwfkzt-Ajcqo (WPW) syndrome Chief Complaint B12 INJ discuss inhalers B12 INJ PER MSG FROM NURSE & PMW EORDERS CP *NEVIN* CP *NEVIN* B12 INJ CP, DYSPNEA *NEVIN* INT LABS/ TWO ORDERING 'Virgie 6 mos PPM f/u FACIAL EDEMA B12 INJ 6 M FU & B12 INJ Reason for Visit B12 deficiency Asthma Chest pain DOMÍNGUEZ (dyspnea on exertion) History of permanent cardiac pacemaker placement alf current use of amiodarone Essential (primary) hypertension History of coronary artery stent placement HLD (hyperlipidemia) Paroxysmal atrial fibrillation Sick sinus syndrome History of permanent cardiac pacemaker placement Paroxysmal atrial fibrillation Sick sinus syndrome Sinus bradycardia Osske-Hpfklwmav-Yuerd (WPW) syndrome B12 deficiency B12 deficiency 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 Asthma Chronic kidney disease (CKD) Essential (primary) hypertension HLD (hyperlipidemia) Paroxysmal atrial fibrillation Chief Complaint discuss inhalers B12 INJ PER MSG FROM NURSE & PMW EORDERS CP *NEVIN* CP *NEVIN* B12 INJ CP, DYSPNEA *NEVIN* INT LABS/ TWO ORDERING 'Virgie 6 mos PPM f/u FACIAL EDEMA B12 INJ 6 M FU & B12 INJ CHEST COLD Reason for Visit Asthma Chest pain DOMÍNGUEZ (dyspnea on exertion) 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 Essential (primary) hypertension History of coronary artery stent placement HLD (hyperlipidemia) Paroxysmal atrial fibrillation Sick sinus syndrome History of permanent cardiac pacemaker placement Paroxysmal atrial fibrillation Sick sinus syndrome Sinus bradycardia Yqsei-Djdgtoryk-Sojoc (WPW) syndrome B12 deficiency B12 deficiency 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 use of longterm anticoagulation 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 Asthma Chronic kidney disease (CKD) Essential (primary) hypertension HLD (hyperlipidemia) Paroxysmal atrial fibrillation Acute URI Chief Complaint PER MSG FROM NURSE & PMW EORDERS CP *NEVIN* CP *NEVIN* B12 INJ CP, DYSPNEA *NEVIN* INT LABS/ TWO ORDERING DR'S 6 mos PPM f/u FACIAL EDEMA B12 INJ 6 M FU & B12 INJ CHEST COLD Reason for Visit Chest pain DOMÍNGUEZ (dyspnea on exertion) History of permanent cardiac pacemaker placement alf current use of amiodarone Essential (primary) hypertension History of coronary artery stent placement HLD (hyperlipidemia) Paroxysmal atrial fibrillation Sick sinus syndrome History of permanent cardiac pacemaker placement Paroxysmal atrial fibrillation Sick sinus syndrome Sinus bradycardia Dlwzd-Xoicegwzg-Tqsnb (WPW) syndrome B12 deficiency B12 deficiency 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 Asthma Chronic kidney disease (CKD) Essential (primary) hypertension HLD (hyperlipidemia) Paroxysmal atrial fibrillation Acute URI Chief Complaint 6 mos PPM f/u / JHR 3:30 F/U / JAZLYN 3:00 approaching MADDY/JOHN4:00 6 m fu (per pt request)[id number] EORDER Reason for Visit History of permanent cardiac pacemaker placement Paroxysmal atrial fibrillation Sick sinus syndrome Jxatm-Tfsdiizes-Rnrvi (WPW) syndrome History of permanent cardiac pacemaker placement Essential (primary) hypertension History of coronary artery stent placement HLD (hyperlipidemia) alf current use of amiodarone Paroxysmal atrial fibrillation Sick sinus syndrome History of permanent cardiac pacemaker placement Paroxysmal atrial fibrillation Sick sinus syndrome Oqpqc-Kgjsbqtcs-Zooum (WPW) syndrome History of permanent cardiac pacemaker placement Essential (primary) hypertension History of coronary artery stent placement HLD (hyperlipidemia) alf current use of amiodarone Paroxysmal atrial fibrillation Sick sinus syndrome Chief Complaint approaching MADDY/JAIRO 4:00 6 m fu (per pt request)[id number] EORDER Reason for Visit History of permanent cardiac pacemaker placement Paroxysmal atrial fibrillation Sick sinus syndrome Fhwgy-Uhaosswbw-Bxavp (WPW) syndrome History of permanent cardiac pacemaker placement Essential (primary) hypertension History of coronary artery stent placement HLD (hyperlipidemia) alf current use of amiodarone Paroxysmal atrial fibrillation Sick sinus syndrome Chief Complaint 3 M FU Spondylosis without myelopathy or radiculopathy, l Reason for Visit History of permanent cardiac pacemaker placement Paroxysmal atrial fibrillation Sick sinus syndrome Ynbez-Lqoambzjy-Ruvxe (WPW) syndrome Chief Complaint 3 M FU Spondylosis without myelopathy or radiculopathy, l PRESENCE OF RIGHT ARTIFICIAL SHOULDER JOINT Reason for Visit History of permanent cardiac pacemaker placement Paroxysmal atrial fibrillation Sick sinus syndrome Pmjot-Ryvpnyjey-Kvhdx (WPW) syndrome Chief Complaint 3 M FU Spondylosis without myelopathy or radiculopathy, l PRESENCE OF RIGHT ARTIFICIAL SHOULDER JOINT 6 MO F/U / JAZLYN 3:30 EORDER Reason for Visit History of permanent cardiac pacemaker placement Paroxysmal atrial fibrillation Sick sinus syndrome Sgnab-Wdbezoxbv-Mewkt (WPW) syndrome History of permanent cardiac pacemaker placement Paroxysmal atrial fibrillation Sick sinus syndrome Idtym-Rlsghehxi-Ngbqz (WPW) syndrome History of permanent cardiac pacemaker placement Essential (primary) hypertension History of coronary artery stent placement HLD (hyperlipidemia) Paroxysmal atrial fibrillation Sick sinus syndrome Chief Complaint PRESENCE OF RIGHT AR TIFICIAL SHOULDER JOINT 6 MO F/U / JAZLYN 3:30 EORDER Reason for Visit History of permanent cardiac pacemaker placement Paroxysmal atrial fibrillation Sick sinus syndrome Ajumx-Pyjfyjsip-Hcbuj (WPW) syndrome History of permanent cardiac pacemaker placement Essential (primary) hypertension History of coronary artery stent placement HLD (hyperlipidemia) Paroxysmal atrial fibrillation Sick sinus syndrome Chief Complaint PRESENCE OF RIGHT AR TIFICIAL SHOULDER JOINT 6 MO F/U / JAZLYN 3:30 EORDER PREOP Septoplasty,Resect/inferior turbina Reason for Visit History of permanent cardiac pacemaker placement Paroxysmal atrial fibrillation Sick sinus syndrome Mplrt-Kbbvnssvv-Fsefq (WPW) syndrome History of permanent cardiac pacemaker placement Essential (primary) hypertension History of coronary artery stent placement HLD (hyperlipidemia) Paroxysmal atrial fibrillation Sick sinus syndrome Chief Complaint PREOP Septoplasty,Resect/inferior turbina wound check/PPM f/u s/p lead revision [facility] Pacer Check Remote Pacer Check Remote 6 wk post RV lead revision E ORDERS Reason for Visit History of permanent cardiac pacemaker placement Paroxysmal atrial fibrillation Sick sinus syndrome Sinus bradycardia Cifcm-Vdpqzwtcz-Cqndq (WPW) syndrome History of permanent cardiac pacemaker placement Sick sinus syndrome Sinus bradycardia Wznfr-Dnzcztixr-Ltgni (WPW) syndrome Chief Complaint Pacer Check Remote 6 wk post RV lead revision E ORDERS 1 YR / NEEDS 4PM Reason for Visit History of permanent cardiac pacemaker placement Sick sinus syndrome Sinus bradycardia Lsbev-Wfcytxuly-Xtmof (WPW) syndrome History of permanent cardiac pacemaker placement Essential (primary) hypertension History of coronary artery stent placement HLD (hyperlipidemia) Paroxysmal atrial fibrillation Chief Complaint Admit Date SCREENING October 21, 2024 9:0 9am Chief Complaint Admit Date SCREENING October 21, 2024 9:0 9am 6 mos PPM f/u. Sees JHR @ 10:30am November 08, 2024 10:15am Reason for Visit Admit Date History of permanent cardiac pacemaker p lacement November 08, 2024 10:15am Essential (primary) hypertension November 082024 10:15am History of coronary artery stent placeme nt November 08, 2024 10:15am HLD (hyperlipidemia) November 08, 2024 10: 15am Paroxysmal atrial fibrillation November 10:15am Sick sinus syndrome November 08, 2024 10:1 5am Sinus bradycardia November 08, 2024 10:1 5am Ctwbc-Hdwzishqu-Ubvpf (WPW) syndrome Nov 10:15am Chief Complaint Admit Date SCREENING October 21, 2024 9:0 9am Pacer Check Remote November 08, 2024 9:00 am 6 mos PPM f/u. Sees JHR @ 10:30am November 08, 2024 10:15am DYSPNEA November 16, 2024 5:5 6am Chief Complaint Admit Date SCREENING October 21, 2024 9:0 9am Pacer Check Remote November 08, 2024 9:00 am 6 mos PPM f/u. Sees JHR @ 10:30am November 08, 2024 10:15am DYSPNEA November 16, 2024 5:5 6am RIGHT HIP December 31, 2024 9:24a m RM 2 December 31, 2024 9:42a m Reason for Visit Admit Date History of permanent cardiac pacemaker p lacement November 08, 2024 10:15am Essential (primary) hypertension November 082024 10:15am History of coronary artery stent placeme nt November 08, 2024 10:15am HLD (hyperlipidemia) November 08, 2024 10: 15am Paroxysmal atrial fibrillation November 10:15am Sick sinus syndrome November 08, 2024 10:1 5am Sinus bradycardia November 08, 2024 10:1 5am Kxqzk-Pwopbrspi-Xhqmi (WPW) syndrome Nov 10:15am Greater trochanteric bursitis of right h ip December 31, 2024 9:24am IT band syndrome December 31, 2024 9:24a m Lumbar radiculopathy December 31, 2024 9:24 am Chief Complaint Admit Date SCREENING October 21, 2024 9:0 9am Pacer Check Remote November 08, 2024 9:00 am 6 mos PPM f/u. Sees JHR @ 10:30am November 08, 2024 10:15am DYSPNEA November 16, 2024 5:5 6am RIGHT HIP December 31, 2024 9:24a m RM 2 December 31, 2024 9:42a m 2-3 M FU January 05, 2025 9:18a m Reason for Visit Admit Date History of permanent cardiac pacemaker p lacement November 08, 2024 10:15am Essential (primary) hypertension November 082024 10:15am History of coronary artery stent placeme nt November 08, 2024 10:15am HLD (hyperlipidemia) November 08, 2024 10: 15am Paroxysmal atrial fibrillation November 10:15am Sick sinus syndrome November 08, 2024 10:1 5am Sinus bradycardia November 08, 2024 10:1 5am Yjrgk-Wfmmzkjiz-Mbyln (WPW) syndrome Nov 10:15am Degenerative joint disease of right hip December 31, 2024 9:24am Greater trochanteric bursitis of right h ip December 31, 2024 9:24am IT band syndrome December 31, 2024 9:24a m Right lumbar radiculitis December 31, 2024 9:24am History of permanent cardiac pacemaker p lacement January 05, 2025 9:18am Essential (primary) hypertension January 9:18am History of coronary artery stent placeme nt January 05, 2025 9:18am HLD (hyperlipidemia) January 05, 2025 9:18 am Paroxysmal atrial fibrillation January 05, 2025 9:18am Chief Complaint Admit Date SCREENING October 21, 2024 9:0 9am Pacer Check Remote November 08, 2024 9:00 am 6 mos PPM f/u. Sees JHR @ 10:30am November 08, 2024 10:15am DYSPNEA November 16, 2024 5:5 6am RIGHT HIP December 31, 2024 9:24a m RM 2 December 31, 2024 9:42a m 2-3 M FU January 05, 2025 9:18a m RT HIP BURSITIS/RADIC LUMBAR REGIO/RX HE RE February 02, 2025 10:00am Chief Complaint Admit Date RIGHT HIP December 31, 2024 9:24a m RM 2 December 31, 2024 9:42a m 2-3 M FU January 05, 2025 9:18a m RT HIP BURSITIS/RADIC LUMBAR REGIO/RX HE RE February 02, 2025 10:00am RIGHT HIP April 11, 2025 3:46pm Reason for Visit Admit Date Degenerative joint disease of right hip December 31, 2024 9:24am Greater trochanteric bursitis of right h ip December 31, 2024 9:24am IT band syndrome December 31, 2024 9:24a m Right lumbar radiculitis December 31, 2024 9:24am History of permanent cardiac pacemaker p lacement January 05, 2025 9:18am Essential (primary) hypertension January 9:18am History of coronary artery stent placeme nt January 05, 2025 9:18am HLD (hyperlipidemia) January 05, 2025 9:18 am Paroxysmal atrial fibrillation January 05, 2025 9:18am Chief Complaint Admit Date RIGHT HIP December 31, 2024 9:24a m RM 2 December 31, 2024 9:42a m 2-3 M FU January 05, 2025 9:18a m RT HIP BURSITIS/RADIC LUMBAR REGIO/RX HE RE February 02, 2025 10:00am RIGHT HIP April 11, 2025 3:46pm RT HIP DJD, PAIN, OA April 15 2:06pm right hip April 20, 2025 3:32pm Reason for Visit Admit Date Degenerative joint disease of right hip December 31, 2024 9:24am Greater trochanteric bursitis of right h ip December 31, 2024 9:24am IT band syndrome December 31, 2024 9:24a m Right lumbar radiculitis December 31, 2024 9:24am History of permanent cardiac pacemaker p lacement January 05, 2025 9:18am Essential (primary) hypertension January 9:18am History of coronary artery stent placeme nt January 05, 2025 9:18am HLD (hyperlipidemia) January 05, 2025 9:18 am Paroxysmal atrial fibrillation January 05, 2025 9:18am Degenerative joint disease of right hip April 11, 2025 3:46pm Greater trochanteric bursitis of right h ip April 11, 2025 3:46pm Lumbar radiculopathy April 11, 2025 3:46pm Right lumbar radiculitis April 11, 2025 3:46pm Degenerative joint disease of right hip April 20, 2025 3:32pm Chief Complaint Admit Date 2-3 M FU January 05, 2025 9:18a m RT HIP BURSITIS/RADIC LUMBAR REGIO/RX HE RE February 02, 2025 10:00am RIGHT HIP April 11, 2025 3:46pm RT HIP DJD, PAIN, OA April 15 2:06pm right hip April 20, 2025 3:32pm Reason for Visit Admit Date History of permanent cardiac pacemaker p lacement January 05, 2025 9:18am Essential (primary) hypertension January 9:18am History of coronary artery stent placeme nt January 05, 2025 9:18am HLD (hyperlipidemia) January 05, 2025 9:18 am Paroxysmal atrial fibrillation January 05, 2025 9:18am Degenerative joint disease of right hip April 11, 2025 3:46pm Greater trochanteric bursitis of right h ip April 11, 2025 3:46pm Lumbar radiculopathy April 11, 2025 3:46pm Right lumbar radiculitis April 11, 2025 3:46pm Degenerative joint disease of right hip April 20, 2025 3:32pm Chief Complaint Admit Date RT HIP BURSITIS/RADIC LUMBAR REGIO/RX HE RE February 02, 2025 10:00am RIGHT HIP April 11, 2025 3:46pm RT HIP DJD, PAIN, OA April 15 2:06pm right hip April 20, 2025 3:32pm 4 M FU/JAZLYN @ 8:30 May 10, 2025 8: 20am Reason for Visit Admit Date Degenerative joint disease of right hip April 11, 2025 3:46pm Greater trochanteric bursitis of right h ip April 11, 2025 3:46pm Lumbar radiculopathy April 11, 2025 3:46pm Right lumbar radiculitis April 11, 2025 3:46pm Degenerative joint disease of right hip April 20, 2025 3:32pm History of permanent cardiac pacemaker p lacement May 10, 2025 8:20am Pre-employment health screening examinat ion May 10, 2025 8:20am Atherosclerosis of coronary artery of upper [place] heart without angina pectoris May 10, 2025 8:20am History of coronary artery stent placeme nt May 10, 2025 8:20am Sick sinus syndrome May 10, 2025 8: 20am Chief Complaint Admit Date RT HIP BURSITIS/RADIC LUMBAR REGIO/RX HE RE February 02, 2025 10:00am RIGHT HIP April 11, 2025 3:46pm RT HIP DJD, PAIN, OA April 15 2:06pm right hip April 20, 2025 3:32pm 4 M FU/JAZLYN @ 8:30 May 10, 2025 8: 20am EORDERS May 10, 2025 9: 55am Reason for Visit Admit Date Degenerative joint disease of right hip April 11, 2025 3:46pm Greater trochanteric bursitis of right h ip April 11, 2025 3:46pm Lumbar radiculopathy April 11, 2025 3:46pm Right lumbar radiculitis April 11, 2025 3:46pm Degenerative joint disease of right hip April 20, 2025 3:32pm History of permanent cardiac pacemaker p lacement May 10, 2025 8:20am Sick sinus syndrome May 10, 2025 8: 20am Udnzt-Qlhefbfiz-Cmtkc (WPW) syndrome Oct bill2024 8:20am Preoperative cardiovascular examination May 10, 2025 8:20am Essential (primary) hypertension May 10, 2025 8:20am History of coronary artery stent placeme nt May 10, 2025 8:20am HLD (hyperlipidemia) May 10, 2025 8 :20am Paroxysmal atrial fibrillation May 102024 8:20am Reason for Referral Specialty Diagnoses / Procedures Referred By Contac t Referred To Contact Radiology Diagnoses Dyspnea, unspecified type Procedures XR CHEST PA+LAT 2 VIEWS Gladys Han [address] [place] [address] [facility] DIAGNOSTIC RADIOLOGY [address] [place] [address] [place] [address] Referral ID Status Reason Start Date Expiration Date V isits Requested Visits Authorized [id number] Pending Review 11/25/2023 11/24/2024 1 1 Additional Source Comments (unrecognized sect ion and content) No Status Records FoundNo Status Records FoundNo Status Records FoundNo Status Records FoundNo Status Records FoundNo Status Records FoundNo Status Records FoundNo Status Records Found INFORMATION SOURCE (unrecogn ized section and content) DATE CREATED AUTHOR 06/03/2020 [facility] DATE CREATED AUTHOR AUTHOR'S ORGANIZ ATION 09/01/2020 [facility] DATE CREATED AUTHOR AUTHOR'S ORGANIZ ATION 10/18/2020 [employer] DATE CREATED AUTHOR AUTHOR'S ORGANIZ ATION 04/01/2021 [facility] ([place]) DATE CREATED AUTHOR AUTHOR'S ORGANIZ ATION 2021 [facility] DATE CREATED AUTHOR AUTHOR'S ORGANIZ ATION 07/15/2023 [facility] DATE CREATED AUTHOR AUTHOR'S ORGANIZ ATION 11/26/2023 [facility] DATE CREATED AUTHOR AUTHOR'S ORGANIZ ATION 05/20/2025 [facility] Care Teams (unrecognized sec tion and content) Team Status: Active Member Role Status Dates Dr. Paresh Carranza MD Family Provider Active Dr. Paresh Carranza MD Primary Care Provider Active Team Status: Inactive Member Role Status Dates Argenis Mcgee Active Dr. Paresh Carranza MD Primary Care Provider Active Dr. Chevy Rooney MD Attending Provider, Referring Pro vider Active Team Status: Inactive Member Role Status Dates Dr. Reshma Arreola MD Referring Provider Active Jairo Grande NP, SHOE STAINER-C Attending Provider Active Dr. Paresh Carranza MD Primary Care Provider Active Team Status: Inactive Member Role Status Dates Dr. Paresh Carranza MD Primary Care Provider, Referring Provider Active Argenis Mcgee Attending Provider Active Team Status: Inactive Member Role Status Dates Dr. Paresh Carranza MD Primary Care Provider, Referring Provider Active Jairo Grande SHOE STAINER, SHOE STAINER-C Attending Provider Active Team Status: Inactive Member Role Status Dates Dr. Paresh Carranza MD Primary Care Provider Active Jairo Grande SHOE STAINER, SHOE STAINER-C Attending Provider, Referring Pro vider Active Team Status: Inactive Member Role Status Dates Dr. Paresh Carranza MD Primary Care Provider, Attending Provider Active Team Status: Inactive Member Role Status Dates Dr. Paresh Carranza MD Primary Care Provider Active Argenis Mcgee Active Dr. Chevy Rooney MD Attending Provider, Referring Pro vider Active Team Status: Inactive Member Role Status Dates Dr. Paresh Carranza MD Primary Care Provider Active Dr. Daljit Landeros MD Attending Provider, Referring Pr ovider Active Team Status: Inactive Member Role Status Dates Dr. Paresh Carranza MD Primary Care Provider Active Dr. Uma Israel MD Attending Provider, Referring P rovider Active Team Status: Inactive Member Role Status Dates Dr. Paresh Carranza MD Primary Care Provider Active Dr. 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 Paresh Carranza MD Primary Care Provider Active Dr. Joao Dominguez MD Attending Provider Activ e Dr. Thierry Pepe MD Referring Provider Active Team Status: Inactive Member Role Status Dates Dr. Paresh Carranza MD Primary Care Provider Active Dr. Thierry Pepe MD Attending Provider, Referring Pr ovider Active Team Status: Inactive Member Role Status Dates Dr. Paresh Carranza MD Primary Care Provider Active Dr. Chevy Rooney MD Attending Provider Active Team Status: Inactive Member Role Status Dates Dr. Paresh Carranza MD Primary Care Provider Active Kerry Hilliard SHOE STAINER, SHOE STAINER-C Attending Provider, Referring P rovider Active Team Status: Inactive Member Role Status Dates Dr. Paresh Carranza MD Primary Care Provider, Referring Provider Active Dr. Chevy Rooney MD Attending Provider Active Team Status: Inactive Member Role Status Dates Dr. Paresh Carranza MD Primary Care Provi trey, Attending Provider, Referring Provider Active Team Status: Active Member Role Status Dates Dr. Paresh Carranza MD Primary Care Provider Active Team Status: Inactive Member Role Status Dates Dr. Paresh Carranza MD Primary Care Provider Active Start: October 21, 2024 End: October 21, 2024 Dr. Paresh Carranza MD Attending Provider Active Start: October 21, 2024 End: October 21, 2024 Dr. Paresh Carranza MD Referring Provider Active Start: October 21, 2024 End: October 21, 2024 Team Status: Inactive Member Role Status Dates Dr. Paresh Carranza MD Primary Care Provider Active Start: November 08, 2024 End: November 08, 2024 Dr. Paresh Carranza MD Referring Provider Active Start: November 08, 2024 End: November 08, 2024 Argenis Mcgee Attending Provider Active Start: A 2024 End: November 08, 2024 Team Status: Inactive Member Role Status Dates Dr. Paresh Carranza MD Primary Care Provider Active Start: November 08, 2024 End: November 08, 2024 Jairo Grande SHOE STAINER, SHOE STAINER-C Attending Provider Active S tart: November 08, 2024 End: November 08, 2024 Jairo Grande SHOE STAINER, SHOE STAINER-C Referring Provider Active S tart: November 08, 2024 End: November 08, 2024 Team Status: Inactive Member Role Status Dates Dr. Paresh Carranza MD Primary Care Provider Active Start: November 08, 2024 End: November 08, 2024 Dr. Chevy Rooney MD Attending Provider Active S tart: November 08, 2024 End: November 08, 2024 Team Status: Inactive Member Role Status Dates Dr. Paresh Carranza MD Primary Care Provider Active Start: November 16, 2024 End: November 16, 2024 Jairo Grande SHOE STAINER, SHOE STAINER-C Attending Provider Active S tart: November 16, 2024 End: November 16, 2024 Jairo Grande SHOE STAINER, SHOE STAINER-C Referring Provider Active S tart: November 16, 2024 End: November 16, 2024 Team Status: Active Member Role Status Dates Dr. Paresh Carranza MD Primary Care Provider Active Start: November 16, 2024 Dr. Chevy Rooney MD Attending Provider Active S tart: November 16, 2024 Team Status: Inactive Member Role Status Dates Dr. Paresh Carranza MD Primary Care Provider Active Start: November 08, 2024 End: November 08, 2024 Dr. Chevy Rooney MD Attending Provider Active S tart: November 08, 2024 End: November 08, 2024 Dr. Chevy Rooney MD Referring Provider Active S tart: November 08, 2024 End: November 08, 2024 Team Status: Active Member Role Status Dates Dr. Paresh Carranza MD Primary Care Provider Active Start: December 31, 2024 Dr. Paresh Carranza MD Referring Provider Active Start: December 31, 2024 Dr. Deangelo Rojas DO Attending Provider Active Start: December 31, 2024 Team Status: Inactive Member Role Status Dates Dr. Paresh Carranza MD Primary Care Provider Active Start: December 31, 2024 End: December 31, 2024 Dr. Chevy Rooney MD Attending Provider Active S tart: December 31, 2024 End: December 31, 2024 Team Status: Inactive Member Role Status Dates Dr. Paresh Carranza MD Primary Care Provider Active Start: December 31, 2024 End: December 31, 2024 Dr. Paresh Carranza MD Referring Provider Active Start: December 31, 2024 End: December 31, 2024 Dr. Deangelo Rojas DO Attending Provider Active Start: December 31, 2024 End: December 31, 2024 Team Status: Inactive Member Role Status Dates Dr. Paresh Carranza MD Primary Care Provider Active Start: January 05, 2025 End: January 05, 2025 Dr. Paresh Carranza MD Referring Provider Active Start: January 05, 2025 End: January 05, 2025 Jairo Grande SHOE STAINER, SHOE STAINER-C Attending Provider Active S tart: January 05, 2025 End: January 05, 2025 Team Status: Active Member Role/Relationship Status Dates Dr. Paresh Carranza MD Primary Care Provider Active Team Status: Inactive Member Role/Relationship Status Dates Dr. Paresh Carranza MD Primary Care Provider Active Start: October 21, 2024 End: October 21, 2024 Dr. Paresh Carranza MD Attending Provider Active Start: October 21, 2024 End: October 21, 2024 Dr. Paresh Carranza MD Referring Provider Active Start: October 21, 2024 End: October 21, 2024 Team Status: Inactive Member Role/Relationship Status Dates Dr. Paresh Carranza MD Primary Care Provider Active Start: November 08, 2024 End: November 08, 2024 Dr. Chevy Rooney MD Attending Provider Active S tart: November 08, 2024 End: November 08, 2024 Team Status: Inactive Member Role/Relationship Status Dates Dr. Paresh Carranza MD Primary Care Provider Active Start: November 08, 2024 End: November 08, 2024 Dr. Chevy Rooney MD Attending Provider Active S tart: November 08, 2024 End: November 08, 2024 Dr. Chevy Rooney MD Referring Provider Active S tart: November 08, 2024 End: November 08, 2024 Team Status: Inactive Member Role/Relationship Status Dates Dr. Paresh Carranza MD Primary Care Provider Active Start: November 08, 2024 End: November 08, 2024 Jairo Grande SHOE STAINER, SHOE STAINER-C Attending Provider Active S tart: November 08, 2024 End: November 08, 2024 Jairo Grande SHOE STAINER, SHOE STAINER-C Referring Provider Active S tart: November 08, 2024 End: November 08, 2024 Team Status: Inactive Member Role/Relationship Status Dates Dr. Paresh Carranza MD Primary Care Provider Active Start: November 16, 2024 End: November 16, 2024 Jairo Grande SHOE STAINER, SHOE STAINER-C Attending Provider Active S tart: November 16, 2024 End: November 16, 2024 Jairo Grande SHOE STAINER, SHOE STAINER-C Referring Provider Active S tart: November 16, 2024 End: November 16, 2024 Team Status: Active Member Role/Relationship Status Dates Dr. Paresh Carranza MD Primary Care Provider Active Start: November 16, 2024 Dr. Chevy Rooney MD Attending Provider Active S tart: November 16, 2024 Team Status: Inactive Member Role/Relationship Status Dates Dr. Paresh Carranza MD Primary Care Provider Active Start: December 31, 2024 End: December 31, 2024 Dr. Paresh Carranza MD Referring Provider Active Start: December 31, 2024 End: December 31, 2024 Dr. Deangelo Rojas DO Attending Provider Active Start: December 31, 2024 End: December 31, 2024 Team Status: Inactive Member Role/Relationship Status Dates Dr. Paresh Carranza MD Primary Care Provider Active Start: December 31, 2024 End: December 31, 2024 Dr. Chevy Rooney MD Attending Provider Active S tart: December 31, 2024 End: December 31, 2024 Team Status: Inactive Member Role/Relationship Status Dates Dr. Paresh Carranza MD Primary Care Provider Active Start: January 05, 2025 End: January 05, 2025 Dr. Paresh Carranza MD Referring Provider Active Start: January 05, 2025 End: January 05, 2025 Jairo Grande SHOE STAINER, SHOE STAINER-C Attending Provider Active S tart: January 05, 2025 End: January 05, 2025 Team Status: Inactive Member Role/Relationship Status Dates Dr. Paresh Carranza MD Primary Care Provider Active Start: February 02, 2025 End: February 02, 2025 Dr. Deangelo Rojas DO Attending Provider Active Start: February 02, 2025 End: February 02, 2025 Dr. Deangelo Rojas DO Referring Provider Active Start: February 02, 2025 End: February 02, 2025 Team Status: Inactive Member Role/Relationship Status Dates Dr. Paresh Carranza MD Primary Care Provider Active Start: December 31, 2024 End: December 31, 2024 Dr. Paresh Carranza MD Referring Provider Active Start: December 31, 2024 End: December 31, 2024 Dr. Deangelo Rojas DO Attending Provider Active Start: December 31, 2024 End: December 31, 2024 Team Status: Inactive Member Role/Relationship Status Dates Dr. Paresh Carranza MD Primary Care Provider Active Start: December 31, 2024 End: December 31, 2024 Dr. Chevy Rooney MD Attending Provider Active S tart: December 31, 2024 End: December 31, 2024 Team Status: Inactive Member Role/Relationship Status Dates Dr. Paresh Carranza MD Primary Care Provider Active Start: January 05, 2025 End: January 05, 2025 Dr. Paresh Carranza MD Referring Provider Active Start: January 05, 2025 End: January 05, 2025 Jairo Grande SHOE STAINER, SHOE STAINER-C Attending Provider Active S tart: January 05, 2025 End: January 05, 2025 Team Status: Inactive Member Role/Relationship Status Dates Dr. Paresh Carranza MD Primary Care Provider Active Start: February 02, 2025 End: February 02, 2025 Dr. Deangelo Rojas DO Attending Provider Active Start: February 02, 2025 End: February 02, 2025 Dr. Deangelo Rojas DO Referring Provider Active Start: February 02, 2025 End: February 02, 2025 Team Status: Inactive Member Role/Relationship Status Dates Dr. Paresh Carranza MD Primary Care Provider Active Start: April 11, 2025 End: April 11, 2025 Dr. Paresh Carranza MD Referring Provider Active Start: April 11, 2025 End: April 11, 2025 Dr. Deangelo Rojas DO Attending Provider Active Start: April 11, 2025 End: April 11, 2025 Team Status: Active Member Role/Relationship Status Dates Dr. Paresh Carranza MD Primary care physician Active Team Status: Inactive Member Role/Relationship Status Dates Dr. Paresh Carranza MD Primary care physician Active Start: December 31, 2024 End: December 31, 2024 Dr. Paresh Carranza MD Referring Provider Active Start: December 31, 2024 End: December 31, 2024 Dr. Deangelo Rojas DO Attending physician Active Start: December 31, 2024 End: December 31, 2024 Team Status: Inactive Member Role/Relationship Status Dates Dr. Paresh Carranza MD Primary care physician Active Start: December 31, 2024 End: December 31, 2024 Dr. Chevy Rooney MD Attending physician Active Start: December 31, 2024 End: December 31, 2024 Team Status: Inactive Member Role/Relationship Status Dates Dr. Paresh Carranza MD Primary care physician Active Start: January 05, 2025 End: January 05, 2025 Dr. Paresh Carranza MD Referring Provider Active Start: January 05, 2025 End: January 05, 2025 Jairo Grande NP, SHOE STAINER-C Attending physician Active Start: January 05, 2025 End: January 05, 2025 Team Status: Inactive Member Role/Relationship Status Dates Dr. Paresh Carranza MD Primary care physician Active Start: February 02, 2025 End: February 02, 2025 Dr. Deangelo Rojas DO Attending physician Active Start: February 02, 2025 End: February 02, 2025 Dr. Deangelo Rojas DO Referring Provider Active Start: February 02, 2025 End: February 02, 2025 Team Status: Inactive Member Role/Relationship Status Dates Dr. Paresh Carranza MD Primary care physician Active Start: April 11, 2025 End: April 11, 2025 Dr. Paresh Carranza MD Referring Provider Active Start: April 11, 2025 End: April 11, 2025 Dr. Deangelo Rojas DO Attending physician Active Start: April 11, 2025 End: April 11, 2025 Team Status: Active Member Role/Relationship Status Dates Dr. Paresh Carranza MD Primary care physician Active Start: April 15, 2025 Dr. Deangelo Rojas DO Attending physician Active Start: April 15, 2025 Dr. Deangelo Rojas DO Referring Provider Active Start: April 15, 2025 Team Status: Inactive Member Role/Relationship Status Dates Dr. Paresh Carranza MD Primary care physician Active Start: April 20, 2025 End: April 20, 2025 Dr. Paresh Carranza MD Referring Provider Active Start: April 20, 2025 End: April 20, 2025 Dr. Deangelo Rojas DO Attending physician Active Start: April 20, 2025 End: April 20, 2025 Team Status: Inactive Member Role/Relationship Status Dates Dr. Paresh Carranza MD Primary care physician Active Start: January 05, 2025 End: January 05, 2025 Dr. Paresh Carranza MD Referring Provider Active Start: January 05, 2025 End: January 05, 2025 Jairo Grande NP, SHOE STAINER-C Attending physician Active Start: January 05, 2025 End: January 05, 2025 Team Status: Inactive Member Role/Relationship Status Dates Dr. Paresh Carranza MD Primary care physician Active Start: February 02, 2025 End: February 02, 2025 Dr. Deangelo Rojas DO Attending physician Active Start: February 02, 2025 End: February 02, 2025 Dr. Deangelo Rojas DO Referring Provider Active Start: February 02, 2025 End: February 02, 2025 Team Status: Inactive Member Role/Relationship Status Dates Dr. Paresh Carranza MD Primary care physician Active Start: April 11, 2025 End: April 11, 2025 Dr. Paresh Carranza MD Referring Provider Active Start: April 11, 2025 End: April 11, 2025 Dr. Deangelo Rojas DO Attending physician Active Start: April 11, 2025 End: April 11, 2025 Team Status: Inactive Member Role/Relationship Status Dates Dr. Paresh Carranza MD Primary care physician Active Start: April 15, 2025 End: April 15, 2025 Dr. Deangelo Rojas DO Attending physician Active Start: April 15, 2025 End: April 15, 2025 Dr. Deangelo Rojas DO Referring Provider Active Start: April 15, 2025 End: April 15, 2025 Team Status: Inactive Member Role/Relationship Status Dates Dr. Paresh Carranza MD Primary care physician Active Start: April 20, 2025 End: April 20, 2025 Dr. Paresh Carranza MD Referring Provider Active Start: April 20, 2025 End: April 20, 2025 Dr. Deangelo Rojas DO Attending physician Active Start: April 20, 2025 End: April 20, 2025 Team Status: Inactive Member Role/Relationship Status Dates Dr. Paresh Carranza MD Primary care physician Active Start: February 02, 2025 End: February 02, 2025 Dr. Deangelo Rojas DO Attending physician Active Start: February 02, 2025 End: February 02, 2025 Dr. Deangelo Rojas DO Referring Provider Active Start: February 02, 2025 End: February 02, 2025 Team Status: Inactive Member Role/Relationship Status Dates Dr. Paresh Carranza MD Primary care physician Active Start: April 11, 2025 End: April 11, 2025 Dr. Paresh Carranza MD Referring Provider Active Start: April 11, 2025 End: April 11, 2025 Dr. Deangelo Rojas DO Attending physician Active Start: April 11, 2025 End: April 11, 2025 Team Status: Inactive Member Role/Relationship Status Dates Dr. Paresh Carranza MD Primary care physician Active Start: April 15, 2025 End: April 15, 2025 Dr. Deangelo Rojas DO Attending physician Active Start: April 15, 2025 End: April 15, 2025 Dr. Deangelo Rjoas DO Referring Provider Active Start: April 15, 2025 End: April 15, 2025 Team Status: Inactive Member Role/Relationship Status Dates Dr. Paresh Carranza MD Primary care physician Active Start: April 20, 2025 End: April 20, 2025 Dr. Paresh Carranza MD Referring Provider Active Start: April 20, 2025 End: April 20, 2025 Dr. Deangelo Rojas DO Attending physician Active Start: April 20, 2025 End: April 20, 2025 Team Status: Inactive Member Role/Relationship Status Dates Dr. Paresh Carranza MD Primary care physician Active Start: May 10, 2025 End: May 10, 2025 Dr. Paresh Carranza MD Referring Provider Active Start: May 10, 2025 End: May 10, 2025 Jairo Grande SHOE STAINER, SHOE STAINER-C Attending physician Active Start: May 10, 2025 End: May 10, 2025 Team Status: Active Member Role/Relationship Status Dates Dr. Paresh Carranza MD Primary care physician Active Start: May 10, 2025 Jairo Grande SHOE STAINER, SHOE STAINER-C Attending physician Active Start: May 10, 2025 Jairo Grande SHOE STAINER, SHOE STAINER-C Referring Provider Active S tart: May 10, 2025 Source Comments (unrecognize d section and content) In the event this informatio n is protected by the Federal Confidentiality of Alcohol and Drug Abuse Patient Records regulations: The Federal rules restrict any use of the information to criminally investigate or prosecute any alcohol or drug abuse patient.[facility] the event this information is protected by the Federal Confidentiality of Alcohol and Drug Abuse Patient Records regulations: The Federal rules restrict any use of the information to criminally investigate or prosecute any alcohol or drug abuse patient.[facility] Reason for Visit (unrecogniz ed section and content) Reason Comments Cardiology Follow Up Possible broken RV lead, gen change Specialty Diagnoses / Procedures Referred By Contac t Referred To Contact Radiology Diagnoses Dyspnea, unspecified type Procedures XR CHEST PA+LAT 2 VIEWS Gladys Han [address] [place] [address] [facility] DIAGNOSTIC RADIOLOGY [address] [place] [address] [place] [address] Referral ID Status Reason Start Date Expiration Date V isits Requested Visits Authorized [id number] Pending Review 11/25/2023 11/24/2024 1 1 FOR RECORDS PERTAINING TO PATIENTS WHO ARE OR HAVE BEEN ENROLLED IN A CHEMICAL DEPENDENCY/SUBSTANCEABUSE PROGRAM, SOME INFORMATION MAY BE OMITTED. This clinical summary was aggregated from multiple sources. Caution should be exercised in using it in the provision of clinical care. This summary normalizes information from multiple sources, and as a consequence, information in this document may materially change the coding, format and clinical context of patient data. In addition, data may be omitted in some cases. CLINICAL DECISIONS SHOULD BE BASED ON THE PRIMARY CLINICAL RECORDS. [facility]. provides no warranty or guarantee of the accuracy or completeness of information in this document.
== END | disposition home or self-care (01) ==
LOC: CT 15:57
PROVIDERS: PCP Family Medicine; Referring Provider Orthopaedic Surgery; Visit Provider Orthopaedic Surgery
DX: M16.11 Unilateral primary osteoarthritis, right hip (principal)
CPT/HCPCS: 73700

== ENCOUNTER → 2025-06-13 | Outpatient (CLI) | payer MEDICARE, OTHER, SELFPAY ==
[2025-06-13 12:02] LABS: Hematocrit 41.3 % (40-54); Hemoglobin 13.8 g/dL (13.0-16.5); Immature Granulocytes Count 0.010 X10^3/uL (0.0-0.0); Mean Corp Hgb Conc 33.4 g/dL (32-36); Mean Corpuscular Volume 94.5 fL (80-94); Mean Platelet Vol. 9.2 fl (6.2-12.0); NRBC Flagged by Analyzer 0 % (0-5); Platelet Count 297 K/mm3 (150-450); RBC Distribution Width CV 13.2 % (11.6-14.6); RBC Distribution Width SD 46.0 fl (35.1-43.9); Red Blood Count 4.37 M/mm3 (4.6-6.2); White Blood Count 5.5 K/mm3 (4.4-11.0)
[2025-06-13 12:32] LABS: AST(SGOT) 20 U/L (<=37); Alanine Aminotransfer ALT/SGPT 14 U/L (<=46); Albumin, Serum 3.7 g/dL (3.4-4.8); Alkaline Phosphatase 73 U/L (40-129); Anion Gap 15 (5-15); BUN 21 mg/dL (4-19); BUN/Creat Ratio 15.3 RATIO (10-20); Calcium,Total 9.7 mg/dL (7.6-11.0); Carbon Dioxide 21.6 mmol/L (21.0-32.0); Chloride 105 mmol/L (98-108); Globulin 2.1 g/dL (2.2-4.2); Glucose 86 mg/dL (70-99); Potassium 4.0 mmol/L (3.3-5.1)
== END | disposition home or self-care (01) ==
LOC: MTLAB 09:46
PROVIDERS: PCP Family Medicine; Referring Provider Family Medicine; Visit Provider Family Medicine
DX: Z01.818 Encounter for other preprocedural examination (principal)
CPT/HCPCS: 36415; 80053; 85025

== ENCOUNTER 2025-07-05 05:31 | Inpatient (IN) | payer MEDICARE, OTHER, SELFPAY ==
--- NOTE | 2025-06-22 08:47 | EKG12_ITS ---
Test Reason : PREOP Blood Pressure : */* mmHG Vent. Rate : 94 BPM Atrial Rate : 93 BPM P-R Int : * ms QRS Dur : 74 ms QT Int : 332 ms P-R-T Axes : * 4 19 degrees QTcB Int : 415 ms Atrial fibrillation Nonspecific ST abnormality , probably digitalis effect Abnormal ECG Confirmed by ALAN AMBROSIO, HOME ([id number]), loan expeditor ZAIRE GARCIA ([id number]) on 06/23/2025 6:28:58 AM Referred By: MODESTA Confirmed By: HOME PHILLIPS MD
[2025-06-22 10:02] LABS: Prothrombin Time (Protime)PT. 20.8 SECONDS (11.7-14.9)
[2025-06-22 10:03] LABS: Partial Thromboplast Time 41.8 Seconds (24.1-36.2)
[2025-06-22 10:21] LABS: Magnesium 2.6 mg/dL (1.5-2.2)
--- NOTE | 2025-06-22 17:08 | PAT.ANESEVAL ---
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 When Was Last Pacemaker Check QUESTION #4 FULL TEXT: You/Your Family Experience fever (hyperthermia) with Anesthesia Last Oral Intake Last Oral intake: Last Oral Intake NPO since Meds taken in AM with sips of water? Meds patient instructed to take am of surgery PONV PONV - capacity planning engineer: PONV - capacity planning engineer Female No 06/20/25 09:20 HX of Motion Sickness No 06/20/25 09:20 HX of N/V After Surgery No 06/20/25 09:20 Non-Smoker Yes 06/20/25 09:20 Duration of Surgery greater Yes 06/20/25 09:20 than 60 minutes Number of Risk Factors 2 06/20/25 09:20 PONV Score Moderate Risk 06/20/25 09:20 Height & Weight Height & Weight: Anesthesia: Height & Weight Height 5 ft 9 in 01/05/25 09:23 Respiratory Assessment Respiratory Assessment - capacity planning engineer: Respiratory Tract Infection Hx - capacity planning engineer Hx Respiratory Tract Infection No 06/20/25 09:20 STOP Sleep Apnea STOP Sleep Apnea - capacity planning engineer: STOP Sleep Apnea - capacity planning engineer Hx Hypertension Yes: CONTROLLED WITH MED 06/20/25 09:20 Hx Sleep Apnea Yes 06/20/25 09:20 CPAP Yes 06/20/25 09:20 BIPAP No 06/20/25 09:20 Do you snore loudly (louder than talking or can be heard Do you often feel tired/ fatigued/ sleepy during daytime? Has anyone observed you stop breathing during sleep? STOP Results Positive 06/20/25 09:20 QUESTION #5 FULL TEXT : Do you snore loudly (louder than talking or can be heard through closed doors)? 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 Specify any problems Hx of Preganancy in last 3 N/A 06/20/25 09:20 Months Nurse Filling Out Transfusion DSCHRIBER 06/20/25 09:20 & Questions: Date: 06/20/25 06/20/25 09:20 Time: :06/20/25 09:20 Patient unable to answer at this time (ie. confused, unrespo /Reproduction History /Reproductive History - capacity planning engineer: /Reproductive Hx- capacity planning engineer Hx Now No 06/20/25 09:20 Gestational Age (in weeks): EDC: Hx Hx Para Hx Section SAB No 06/20/25 09:20 Does the father of the baby or his family experience fever w Father of the baby Malignant Hypertension history comment ON LICENSE OF [facility] Medical History (Updated 06/20/25 @ 09:33 by Radha Chong) Wears hearing aid Thyroid disease Ambulates with cane Arthritis History of renal disease Restless legs Back pain CPAP (continuous positive airway pressure) dependence COPD (chronic obstructive pulmonary disease) History of pain when walking History of atrial fibrillation Wears glasses History of echocardiogram History of stress test Hypertension Cardiology follow-up encounter History of CVA (cerebrovascular accident) (08/2012) Non-smoker Rheumatoid arthritis Carotid artery stenosis Mxzec-Btnjumiak-Rjdbz (WPW) syndrome Sick sinus syndrome Atherosclerosis of coronary artery of [place] heart without angina pectoris Segmental and somatic dysfunction of cervical region Segmental and somatic dysfunction of thoracic region Segmental and somatic dysfunction of lumbar region 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 Home Medications ?Medication ?Instructions ?Recorded ?Last Taken ?Type albuterol sulfate 90 mcg/actuation 2 puff inhalation Q4H PRN 02/19/24 Unknown Rx aerosol inhaler (Ventolin HFA) shortness of breath or wheezing #18 grams levothyroxine 25 mcg tablet 25 mcg PO QDAY Filling as 07/07/24 Unknown Rx courtesy, pt needs to get from Primary #90 tabs nitroglycerin 0.4 mg sublingual 0.4 mg sublingual Q5M PRN Chest 10/27/24 Unknown Rx tablet Pain #25 tabs budesonide 160 mcg-glycopyr 9 2 inh inhalation BID ASTHMA 01/05/25 Unknown History mcg-formot 4.8 mcg/actuation HFA inhaler tiotropium bromide 2.5 2 inh inhalation DAILY Breathing 01/05/25 Unknown History mcg/actuation mist for inhalation problems (Spiriva Respimat) diltiazem HCl 240 mg 240 mg PO QDAY BP #90 caps 01/07/25 Unknown Rx capsule,extended release 24 hr (Cartia XT) tramadol 50 mg tablet 50 mg PO Q8H PRN pain #21 tabs 05/27/25 Unknown Rx guaifenesin 600 mg tablet,extended 600 mg PO BID COPD 06/20/25 Unknown History release losartan 25 mg tablet 25 mg PO QHS BP 06/20/25 Unknown History rivaroxaban 20 mg tablet (Xarelto) 20 mg PO QHS BLOOD THINNER 06/20/25 Unknown History Allergy/AdvReac Type Severity Reaction Status Date / Time Sulfa (Sulfonamide Allergy Mild Rash Verified 06/20/25 09:12 Antibiotics) clopidogrel (From Plavix) AdvReac Severe Other - Verified 06/20/25 09:12 genetic nonresponder, needs brillinta oxybutynin AdvReac Severe short of Verified 06/20/25 09:12 breath, very dry mouth metoprolol (From Lopressor) AdvReac Mild - Verified 06/20/25 09:12 bronchospasm nystatin AdvReac Unknown Unknown Verified 06/20/25 09:12 adhesive tape AdvReac Itching Verified 06/20/25 09:12 Family History (Reviewed 05/10/25 @ 09:31 by Magnus [place] LEASING MACHINE TENDER, LEASING MACHINE TENDER-C) Brother CVA (cerebral vascular accident) Carotid artery stenosis Father CVA (cerebral vascular accident) Carotid artery stenosis Mother Stomach cancer Surgical History (Updated 06/20/25 @ 09:33 by Radha Chong) History of cardiac catheterization History of nasal septoplasty History of shoulder surgery (01/2021) History of permanent cardiac pacemaker placement (12/08/12) History of spinal surgery History of herniorrhaphy History of left heart catheterization (08/02/19) History of coronary artery stent placement (07/23/13) Social History household members: spouse Smoking Status: Never smoker alcohol intake: never substance use type: does not use what type of physical activity do you participate in: walking Audit: Pertinent Findings Pertinent Findings EKG Perinent findings: 10/28/2023. Atrial pacer rhythm. Stress test pertinent findings: 11/16/2024. EF of 76%. No areas of reversibility are noted to suggest ischemia. No previous infarct. Echo (EF%) pertinent findings: 11/16/2024. EF of 65%. PASP is 25 mmHg. No aortic stenosis noted. Consult pertinent findings: 05/10/2025. Christiane LEASING MACHINE TENDER-C. 1. History of coronary artery stent placement-PCI/MELL to the LAD on 07/23/2013. Stress test on 11/16/2024 was negative for ischemia. Echo on 11/16/2024 showed EF of 65%. Patient appears stable. Continue to monitor. No medication changes at this time. 2. Sick sinus syndrome-status post permanent pacemaker. 3. Permanent cardiac pacemaker-last device report on 05/10/2025 shows normal function. Battery life of 5 to 8 years. 4. Paroxysmal atrial dxpwphmqiice-[id number] score of 5. On Xarelto for anticoagulation. Diltiazem for rate control. 5. Nprjzoqwbvgn-dcvh-jgtdpckdch. 6. Preop cardiovascular exam-patient may proceed with upcoming hip surgery. Continue diltiazem perioperatively. He may hold Xarelto 2 days prior and resume as soon as possible afterwards. Recommendation Anesthesia Recommendation Anesthesia recommendation: OPTIMIZED for anesthesia
[2025-07-05] VITALS (21 sets, daily range): BP systolic 86–148; BP diastolic 53–95; PULSE 70–107; RESP 13–18; TEMP 36.1–36.7; O2SAT 92–100; BMI 24.0
--- OUTSIDE RECORDS SUMMARY | 2025-07-05 05:34 | XMS RPT_ITS | CCD ---
Author Organization [facility] ion [facility] Care Team Providers Care Big Data Software Engineer Name Role Phone Yaa Rosales Unavailable Unavailable Unknown, Referring Provider Unavailable Unav ailable Fartun Mendoza Unavailable Unavailable Philomena, Gladys Unavailable Unavailable Taylor, Odalys Unavailable Unavailable HANNA BURPEE, HARINDER aZvaleta Attending Unavailab le SHARP, ARGENIS Referring Unavailable [...] Attending Provider Dr. Reshma Arreola Referring Provider [phone] Dr. Jairon Dimas Attending Provider Dr. Chevy Rooney Attending Provider Nikita IT APPLICATIONS ANALYST, IT APPLICATIONS ANALYST-C Kathie Attending Provider Nikita IT APPLICATIONS ANALYST, IT APPLICATIONS ANALYST-C Kathie Referring Provider Babak MEDINA, IT APPLICATIONS ANALYST-C Kerry Attending Provider Babak MEDINA, IT APPLICATIONS ANALYST-C Kerry Referring Provider Babak MEDINA, IT APPLICATIONS ANALYST-C Kerry Other Provider Argenis Mcgee Attending Provider [...] Dr. Reshma Arreola Referring Provider [phone] Roof IT APPLICATIONS ANALYST, IT APPLICATIONS ANALYST-C Jairo Serrato Attending Provider Dr. Paresh Carranza Referring Provider Argenis Mcgee Attending Provider Unavailable Dr. Paresh Carranza Primary Care Provider Roof IT APPLICATIONS ANALYST, IT APPLICATIONS ANALYST-C Jairo Serrato Attending Provider Dr. Paresh Carranza Primary Care Provider Dr. Paresh Carranza Referring Provider Argenis Mcgee Attending Provider Unavailable Roof IT APPLICATIONS ANALYST, IT APPLICATIONS ANALYST-C Jairo Serrato Attending Provider Dr. Paresh Carranza Primary Care Provider Dr. Chevy Rooney Attending Provider [phone] Che[address] Rooney Referring Provider [phone] Paresh Carranza Referring Provider Roof IT APPLICATIONS ANALYST, IT APPLICATIONS ANALYST-C Jairo Serrato Attending Provider Paresh Carranza MD Primary Care Provider Dr. Paresh Carranza Primary Care Provider Dr. Paresh Carranza Primary Care Provider Dr. Paresh Carranza Referring Provider Roof IT APPLICATIONS ANALYST, IT APPLICATIONS ANALYST-C Jairo H Attending Provider Dr. Joao Dominguez Attending Provider Dr. Thierry Pepe Referring Provider PARESH CARRANZA Primary Care Unavailable VITVIKTORIYA COTE Attending Unavailable VITVIKTORIYA COTE Admitting Unavailable VIKTORIYA MARCIAL Attending Unavailable PARESH CARRANZA Primary Care Unavailable PARESH CARRANZA Primary Care [...] Provider Argenis Mcgee Attending Provider Unavailable Roof IT APPLICATIONS ANALYST-C, Jairo H Attending Provider Roof IT APPLICATIONS ANALYST-C, Jairo H Referring Provider Dr. Chevy Rooney MD Attending Provider Dr. Sj Rooney MDril Referring Provider Bob VALENCIA, Dr. Bright Attending Provider Bob VALENCIA, Dr. Bright Referring Provider Tere AMBROSIO, Dr. Yoder Primary Care Provider Tere AMBROSIO, Dr. Yoder Referring Provider Nevin AMBROSIO, Dr. Reece Attending Provider Roof IT APPLICATIONS ANALYST-C, Jairo Serrato Attending Provider Tere AMBROSIO, Dr. Yoder Primary Care Physician Bob VALENCIA, Dr. Bright Attending Physician Nevin AMBROSIO, Dr. Reece Attending Physician Roof IT APPLICATIONS ANALYST-C, Jairo Serrato Attending Physician Tere AMBROSIO, Dr. Yoder Primary Care Physician Tere AMBROSIO, Dr. Yoder Referring Provider Bob VALENCIA, Dr. Bright Attending Physician Tere AMBROSIO, Dr. Yoder Primary Care Physician Tere AMBROSIO, Dr. Yoder Referring Provider Roof IT APPLICATIONS ANALYST-C, Jairo Serrato Attending Physician Roof IT APPLICATIONS ANALYST-C, Jairo Serrato Referring Provider Nevin AMBROSIO, Dr. Reece Attending Physician Marco A AMBROSIO, Dr. Jairon Bernard Attending Physician Dr. Jairon Strickland MD, V Referring Provider PARESH CARRANZA Primary Care Unavailable Chevy Rooney Attending Unavailable Carranza, Paresh Primary Care Unavailable NevinChevy quiroz Referring Unavailable NevinChevy quiroz Attending Unavailable Tere, Paresh Primary Care Unavailable RoofJairo Attending Unavailable Carranza, Paresh Referring Unavailable Carranza, Paresh Primary Care Unavailable Tere, Paresh Primary Care Unavailable BorruDeangelo gifford Attending Unavailable Carrazna, Paresh Referring Unavailable Carranza, Paresh Primary Care Unavailable BorrusoDeangelo Referring Unavailable Borruso, Deangelo Attending Unavailable Carranza, Paresh Primary Care Unavailable BorrusoDeangelo Referring Unavailable Borruso, Deangelo Attending Unavailable Carranza, Paresh Attending Unavailable Carranza, Paresh Primary Care Unavailable Carranza, Paresh Referring Unavailable Carranza, Paresh Primary Care Unavailable Borruso, Deangelo Referring Unavailable Borruso, Deangelo Attending Unavailable Carranza, Paresh Primary Care Unavailable Borruso, Deangelo Referring Unavailable Borruso, Deangelo Attending Unavailable Nevin, Chevy Attending Unavailable Carranza, Paresh Primary Care Unavailable Carranza, Paresh Primary Care Unavailable Borruso, Deangelo Attending Unavailable Carranza, Paresh Referring Unavailable Nevin, Chevy Attending Unavailable Carranza, Paresh Primary Care Unavailable Carranza, Paresh Primary Care Unavailable Nevin, Chevy Attending Unavailable Roof, Jairo Serrato Attending Unavailable Carranza, Paresh Primary Care Unavailable Carranza, Paresh Referring Unavailable Carranza, Paresh Primary Care Unavailable Nevin, Chevy Referring Unavailable Nevin, Chevy Attending Unavailable Carranza, Paresh Referring Unavailable Carranza, Paresh Primary Care Unavailable Borruso, Deangelo Attending Unavailable Carranza, Paresh Attending Unavailable Carranza, Paresh Primary Care Unavailable Carranza, Paresh Referring Unavailable Roof, Jairo H Referring Unavailable Roof, Jairo Serrato Attending Unavailable Carranza, Paresh Primary Care Unavailable Roof, Jairo H Referring Unavailable Roof, Jairo Serrato Attending Unavailable Carranza, Paresh Primary Care Unavailable Sibilia, Jairon V Referring Unavailable Sibilia, Jairon V Attending Unavailable Carranza, Paresh Primary Care Unavailable Roof, Jairo Serrato Attending Unavailable Roof, Jairo H Referring Unavailable Carranza, Paresh Primary Care Unavailable Carranza, Paresh Primary Care Unavailable Borruso, Deangelo Admitting Unavailable Borruso, Deangelo Attending Unavailable Roof, Jairo Serrato Attending Unavailable Carranza, Paresh Primary Care Unavailable Carranza, Paresh Referring Unavailable Allergies Allergy Classification Reported Allergen(s) Allergy Type Date of Onset Reaction(s) Facility (20 sources) clopidogrel; Translations: [CLOPIDOGREL] Drug Allergy 1 [facility] (20 sources) Metoprolol; Translations: [METOPROLOL] Drug Allergy 1 [facility] (20 sources) Nystatin; Translations: [NYSTATIN] Drug Allergy 9 Other: See Comments [facility] (20 sources) oxybutynin; Translations: [OXYBUTYNIN] Drug Allergy 1 Shortness of Breath [facility] (20 sources) Sulfonamides (Antibiotic); Translations: [SULFA (SULFONAMIDE ANTIBIOTICS)] Allergy to substance 7 Hives, Shortness of Breath [facility] (6 sources) MEDICAL TAPE Propensity to adverse reactions 2 Itching [facility] Work Phone: (20 sources) Adhesive Tape; Translations: [adhesive tape] Propensity to adverse reactions 2 Itching [facility] Comment on above: MEDICAL TAPE (4 sources) Adhesive Tape; Translations: [ADHESIVE TAPE (ROSINS)] Propensity to adverse reactions to substance 4 [facility] (4 sources) sulfaSALAzine; Translations: [SULFASALAZINE] Drug Allergy 3 [facility] (1 source) clopidogrel Drug Allergy 5 [facility] Repository (1 source) Metoprolol Drug Allergy 5 [facility] Repository (1 source) Nystatin Drug Allergy 5 [facility] Repository (1 source) oxybutynin Drug Allergy 5 [facility] Repository Medications Current Medications Medication Drug Class(es) Dates Sig (Normalized) Sig (Original) [id number] actuat albuterol 0.09 mg/actuat metered dose [...] 28, 2017 12:00am June 24, 2018 9:18am Wtwgjtlbdg-Dvgrbsjr-Mjcifarp ol (20 sources) Corticosteroid, beta2-Adrenergic Agonist Start: [...] 05, 2025 12:00am Start: 04-06-2024 End: 05-05-2024 Delmejibzy-Txklmaej-Vvjbmxbb ol (Breztri Aerosphere) 160-9-4.8 mcg/actuation HFA aerosol inhaler Discontinued NMA INHALATION April 06, 2024 12:00am May 05, 2024 2:11pm COPD Start: 04-06-2024 End: 05-05-2024 Dwqxxpyzpp-Sxrantwe-Efwajvta ol (Breztri Aerosphere) 160-9-4.8 mcg/actuation HFA aerosol [...] Discontinued 180 mg PO EVERY MORNING 90 3 January 06, 2025 10:08am January 07, 2025 9:25am Start: 01-05-2025 End: 01-06-2025 take 1 tablet by mouth once daily in the morning Diltiazem Hcl 240 mg tablet extended release 24 hr Discontinued 240 mg PO EVERY MORNING 30 11 January 05, 2025 12:00am January 06, 2025 [...] 12, 2022 1:00am take 1 capsule by [facility] once daily before breakfast levothyroxine 75 mcg [...] tablet Discontinued 20 mg PO DAILY 90 3 September 10, 2022 5:04pm February 07, 2023 10:16am must administer with evening meal Comment on above: Take 1 tablet by meenu th daily with dinner. 60 actuat tiotropium 0.0025 mg/actuat inhalation spray (9 sources) Anticholinergic Start: 01-05-2025 traMADol hydrochloride 50 mg oral tablet (20 sources) Opioid Agonist Start: 05-27-2025 take 1 tablet by mouth every eight hours as needed for pain Start: 04-20-2018 End: 04-24-2018 take 1 tablet by mouth once daily Tramadol 50 mg tablet Discontinued 50 mg PO .q day April 20, 2018 12:00am April 24, 2018 2:06pm Start: 09-22-2017 End: 09-23-2017 take 1 tablet by mouth once daily Tramadol 50 mg tablet Discontinued 50 mg PO .QD September 22, 2017 1:00am September 23, 2017 3:00pm Completed/Discontinued Medications Medication Drug Class(es) Dates Sig [...] tablet Discontinued 100 mg PO DAILY 90 3 August 19, 2022 12:24pm March 31, 2023 [...] tablet Discontinued 200 mg PO DAILY 90 0 August 02, 2019 1:00am October 08, 2019 [...] 0.5 mg INHALATION TWICE A DAY 60 July 31, 2020 1:28pm October 12, 2020 [...] by mouth. cholecalciferol 0.025 mg oral capsule (13 sources) Vitamin D Start: 2024 End: 2024 [...] 3 mg/ml oral solution (20 sources) Uncompetitive C-pzokco-T-aspartate Receptor Antagonist, Sigma-1 Agonist Start: 2017 End: 2017 take 30 mg by mouth three times daily Dextromethorphan Hbr 15 MG/5 ML syrup Discontinued 30 mg PO THREE TIMES A DAY 1 0 September 10, 2017 1:00am September 23, 2017 2:59pm doxycycline hyclate 100 mg oral tablet (20 sources) Tetracycline-class Drug Start: 2021 End: 2021 Doxycycline Hyclate 100 mg tablet Discontinued 100 mg PO TWICE A DAY 20 0 August 15, 2021 1:00am September 03, 2021 [...] tablet (20 sources) Azole Antifungal Start: 04-06-20 19 End: 06-10-20 19 take 1 tablet by mouth once daily Fluconazole (Diflucan) 100 mg tablet Discontinued 100 mg PO DAILY 02 07April 06, 2019 12:00am June 10, 2019 11:00am 30 actuat fluticasone furoate 0.1 mg/actuat dry powder inhaler (20 sources) Corticosteroid Start: 08-09-19 End: 10-12-19 take 100 ug by inhalation once daily Fluticasone Furoate (Arnuity Ellipta) 100 mcg/actuation blister with device Discontinued 1 NMA INHALATION DAILY August 30, 2019 11:27am October 12, 2019 [...] with device Discontinued 1 NMA INHALATION daily 31 01May 17, 2019 12:00am June 15, 2019 9:12am [...] with device Discontinued 1 NMA INHALATION daily July 04, 2021 1:58pm June [...] with device Active 1 INH INHALATION daily 60 July 04, 2021 1:58pm after inhalation, rinse [...] with device Discontinued 1 INH INHALATION daily June 27, 2021 12:07pm July 04, 2021 12:58pm after inhalation, rinse mouth with water and spit out; do not swallow Start: 06-27-2021 End: 07-04-2021 Fluticasone Furoate-Vilanter ol (Breo Ellipta) 200-25 mcg/dose blister with device Discontinued 1 INH INHALATION daily June 27, 2021 1:07pm July [...] Discontinued 1 EACH PO TWICE A DAY 14 September 10, 2017 1:00am April 24, 2018 [...] above: Take 1 tablet by meenu th twice daily. Dr. Steen lidocaine hydrochloride 40 [...] daily. magnesium gluconate 250 mg oral tablet (5 sources) Start: 11-08-2024 End: 01-05-2025 take 1 [...] pack Discontinued 0 PO per package directions September 03, 2021 1:00am September 19, 2021 [...] 12-11-2019 Nebulizer Discontinued 1 Mar ch 2019 12:00am December 11, 2019 11:45am As directed nitroglycerin 0.4 mg sublingual tablet (20 sources) Nitrate Vasodilator Start: 08-22-2016 End: 10-27-2024 Nitroglycerin 0.4 mg tablet, sublingual Discontinued 0.4 mg SL Q5M as needed for Chest Pain 26 10February 11, 2019 10:00am October 27, 2024 4:20pm Start: 08-22-2016 End: 02-11-2019 Nitroglycerin Active 0.4 MG SL Q5M February 11, 2019 10:00am nystatin [id number] unt/ml oral suspension (20 sources) Polyene Antifungal Start: 03-26-2019 End: 06-10-2019 Nystatin 100,000 unit/mL suspension Discontinued 5 mL MUCOUS MEM THREE TIMES A DAY 250 1 March 26, 2019 12:00am June 10, 2019 11:01am swish and swallow 5 cc three times per day for 10 days Start: 03-26-2019 End: 06-10-2019 Nystatin Discontinued 5 ML M UCOUS MEM THREE TIMES A DAY 250 March 26, 2019 12:00am June 10, 2019 11:01am swish and swallow 5 cc three times per day for 10 days predniSONE 20 mg oral tablet (20 sources) Start: 11-27-2021 End: 01-02-2022 take 2 tablets by mouth once daily Prednisone 20 mg tablet Discontinued 40 mg PO DAILY 10 5 0 November 27, 2021 12:00am January 02, 2022 [...] Discontinued 1 mg PO AT BEDTIME 90 3 August 17, 2021 4:22pm June 03, 2022 3:55pm administer 1-3 hours before bedtime Start: 08-09-2020 End: 09-04-2020 Ropinirole 0.5 mg tablet Dis continued 0.5 mg PO DAILY 60 1 August 09, 2020 1:00am September 04, 2020 4:55pm 1 tab 1-2 hours before bed, on 4th night may increase to 2 tabs Comment on above: Take 1 mg by mouth d aily at bedtime. rosuvastatin calcium 5 mg oral tablet (20 sources) HMG-CoA Reductase Inhibitor Start: End: take 1 tablet by mouth once daily Rosuvastatin (Crestor) 5 mg tablet Discontinued 5 mg PO daily November 08, 2024 12:00am December 31, 2024 9:34am Start: 02-14-2016 End: 06-03-2022 take 1 tablet by mouth once daily Rosuvastatin 20 mg tablet Discontinued 20 mg PO DAILY August 17, 2021 2:32pm June 03, 2022 [...] Take 0.4 mg by mouth once daily. vitamin b12 1 mg/ml injectable solution (20 sources) Vitamin B12 Start: End: inject 100 ug by intramuscular injection once [...] 1 tablet by meenu th once daily. Inject 1 mL intramus cularly once every month. vitamin k2 0.1 mg oral capsule (13 sources) Start: 11-08-2024 End: 01-05-2025 Vitamin K2 [...] 06-19-2023 04-23-2023 Episodic Conduction disorders (20 sources) Gdeab-Wlfsbhady-Exws e pattern; 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 [...] Translations: [Unilateral primary osteoarthritis, right hip] Onset: 05-31-2025 12-31-2024 Chronic Other aftercare (20 sources) Long-term current use of anticoagulant; Translations: [senior care (current) use of anticoagulants] Onset: 08-23-2013 08-15-2021 Episodic Other aftercare (20 sources) Drug therapy finding; Translations: [Other supervisor intermediates (current) drug therapy] 06-03-2022 Episodic Other aftercare (13 sources) Other supervisor intermediates (current) drug therapy; Translations: [Long-term (current) use of other medications] Episodic Other aftercare (11 sources) Long-term current use of amiodarone; Translations: [Other supervisor intermediates (current) drug therapy] 06-03-2022 Episodic Other bone [...] hip] 12-31-2024 Episodic Other connective tissue disease (17 sources) Iliotibial band friction syndrome; Translations: [Iliotibial [...] Onset: 11-25-2023 Episodic Other lower respiratory disease (16 sources) Productive cough ; Translations: [Productive cough] [...] Episodic Other nutritional; endocrine; and metabolic disorders (14 sources) Weight increased; Translations: [Abnormal weight gain] [...] Onset: 06-19-2023 Episodic Other aftercare (10 sources) senior care (current) use of anticoagulants; Translations: [Long-term (current) [...] Interpretation Reference Range Facility CBC W/Diff, Automatedon 06-04 Absolute Lymph 1.61 X10 3/uL Normal 0.83-4.51 [facility] Comment on above: Performed By: #### L 100.0100, L500.4050 ####[facility] [address] [place], [address] Absolute Neut 3.3 X10 3/uL Normal 2.0-7.7 [facility] Comment on above: Performed By: #### L 100.0100, L500.4050 ####[facility] [address] [place], [address] Basophils/100 WBC (Bld) 0.9 % Normal 0-1 [facility] Comment on above: Performed By: #### L 100.0100, L500.4050 ####[facility] [address] [place], [address] Eosinophils/100 WBC (Bld) 0.4 % Normal 0-5 [facility] Comment on above: Performed By: #### L 100.0100, L500.4050 ####[facility] [address] [place], [address] Erythrocyte distribution width (RBC) [Ratio] 13.2 % Normal 11.6-14.6 [facility] Comment on above: Performed By: #### L 100.0100, L500.4050 ####[facility] [address] [place], [address] Hematocrit (Bld) [Volume fraction] 41.3 % Normal 40-54 [facility] Comment on above: Performed By: #### L 100.0100, L500.4050 ####[facility] [address] [place], [address] Hemoglobin (Bld) [Mass/Vol] 13.8 g/dL Normal 13.0-16.5 [facility] Comment on above: Performed By: #### L 100.0100, L500.4050 ####[facility] [address] [place], [address] IG% 0.200 Normal 0.0-0.9 [facility] Comment on above: Result Comment: IG% - Immature Granulocytes (promyelocytes, myelocytes and metamyelocytes) > 1% indicates that a LEFT SHIFT is Present. Performed By: #### L 100.0100, L500.4050 ####[facility] [address] [place], [address] Lymphocytes/100 WBC (Bld) 29.2 % Normal 19-41 [facility] Comment on above: Performed By: #### L 100.0100, L500.4050 ####[facility] [address] [place], [address] MCH (RBC) [Entitic mass] 31.6 pg Normal 27.0-32.0 [facility] Comment on above: Performed By: #### L 100.0100, L500.4050 ####[facility] [address] [place], [address] MCHC (RBC) [Mass/Vol] 33.4 g/dL Normal 32-36 [facility] Comment on above: Performed By: #### L 100.0100, L500.4050 ####[facility] [address] [place], [address] MCV (RBC) [Entitic vol] 94.5 fL High 80-94 [facility] Comment on above: Performed By: #### L 100.0100, L500.4050 ####[facility] [address] [place], [address] Monocytes/100 WBC (Bld) 10.3 % High 0-10 [facility] Comment on above: Performed By: #### L 100.0100, L500.4050 ####[facility] [address] [place], [address] Neutrophils/100 WBC (Bld) 59.0 % Normal 47-70 [facility] Comment on above: Performed By: #### L 100.0100, L500.4050 ####[facility] [address] [place], [address] Nucleated RBC (Bld) [#/Vol] 0 10*3/uL Normal 0-5 [facility] Comment on above: Performed By: #### L 100.0100, L500.4050 ####[facility] [address] [place], [address] Platelet mean volume (Bld) [Entitic vol] 9.2 fL Normal 6.2-12.0 [facility] Comment on above: Performed By: #### L 100.0100, L500.4050 ####[facility] [address] [place], [address] Platelets (Bld) [#/Vol] 297 10*3/uL Normal 150-450 [facility] Comment on above: Performed By: #### L 100.0100, L500.4050 ####[facility] [address] [place], [address] RBC (Bld) [#/Vol] 4.37 10*6/uL Low 4.6-6.2 [facility] Comment on above: Performed By: #### L 100.0100, L500.4050 ####[facility] [address] [place], [address] RDW SD 46.0 fl High 35.1-43.9 [facility] Comment on above: Performed By: #### L 100.0100, L500.4050 ####[facility] [address] [place], [address] WBC (Bld) [#/Vol] 5.5 10*3/uL Normal 4.4-11.0 [facility] Comment on above: Performed By: #### L 100.0100, L500.4050 ####[facility] [address] [place], [address] Comprehensive Metabolic Prof ilon 06-13-2025 Albumin [Mass/Vol] 3.7 g/dL Normal 3.4-4.8 [facility] Comment on above: Performed By: #### L 100.0100, L500.4050 ####[facility] [address] [place], [address] Albumin/Globulin [Mass ratio] 1.8 {ratio} Normal 0.9-2.4 [facility] Comment on above: Performed By: #### L 100.0100, L500.4050 ####[facility] [address] [place], [address] ALK PHOS 73 U/L Normal 40-129 [facility] Comment on above: Performed By: #### L 100.0100, L500.4050 ####[facility] [address] [place], [address] ALT [Catalytic activity/Vol] 14 U/L Normal <=46 [facility] Comment on above: Performed By: #### L 100.0100, L500.4050 ####[facility] [address] [place], [address] AST [Catalytic activity/Vol] 20 U/L Normal <=37 [facility] Comment on above: Performed By: #### L 100.0100, L500.4050 ####[facility] [address] [place], [address] Bilirubin [Mass/Vol] 0.56 mg/dL Normal 0.00-1.30 [facility] Comment on above: Performed By: #### L 100.0100, L500.4050 ####[facility] [address] [place], [address] BUN/CRE 15.3 RATIO Normal 10-20 [facility] Comment on above: Performed By: #### L 100.0100, L500.4050 ####[facility] [address] [place], [address] Calcium [Mass/Vol] 9.7 mg/dL Normal 7.6-11.0 [facility] Comment on above: Performed By: #### L 100.0100, L500.4050 ####[facility] [address] [place], [address] Chloride [Moles/Vol] 105 mmol/L Normal 98-108 [facility] Comment on above: Performed By: #### L 100.0100, L500.4050 ####[facility] [address] [place], [address] CO2 [Moles/Vol] 21.6 mmol/L Normal 21.0-32.0 [facility] Comment on above: Performed By: #### L 100.0100, L500.4050 ####[facility] [address] [place], [address] Creatinine [Mass/Vol] 1.39 mg/dL High 0.70-1.20 [facility] Comment on above: Performed By: #### L 100.0100, L500.4050 ####[facility] [address] [place], [address] GAP 15 Normal 5-15 [facility] Comment on above: Performed By: #### L 100.0100, L500.4050 ####[facility] [address] [place], [address] GFR/1.73 sq M.predicted among non-blacks MDRD (S/P/Bld) [Vol rate/Area] 53 mL/min/{1.73_m2} Low >60 [facility] Comment on above: Result Comment: mL/m in/1.73m2 CKD-EPI Creatinine Equation (2020) Performed By: #### L 100.0100, L500.4050 ####[facility] [address] [place], [address] Globulin (S) [Mass/Vol] 2.1 g/dL Low 2.2-4.2 [facility] Comment on above: Performed By: #### L 100.0100, L500.4050 ####[facility] [address] [place], [address] Glucose [Mass/Vol] 86 mg/dL Normal 70-99 [facility] Comment on above: Performed By: #### L 100.0100, L500.4050 ####[facility] [address] [place], [address] Potassium [Moles/Vol] 4.0 mmol/L Normal 3.3-5.1 [facility] [facility] Comment on above: Performed By: #### L 100.0100, L500.4050 ####[facility] [address] [place], [address] Sodium [Moles/Vol] 142 mmol/L Normal 133-145 [facility] Comment on above: Performed By: #### L 100.0100, L500.4050 ####[facility] [address] [place], [address] T PROT 5.9 g/dL Normal 5.9-8.4 [facility] Comment on above: Performed By: #### L 100.0100, L500.4050 ####[facility] [address] [place], [address] Urea nitrogen [Mass/Vol] 21 mg/dL High 4-19 [facility] Comment on above: Performed By: #### L 100.0100, L500.4050 ####[facility] [address] [place], [address] CT CHEST WO IVCONon 06-01-20 CT CHEST WO IVCON * * *Final Report* * * DATE OF EXAM: Jun 01 2025 3:44PM [facility] 0541 - CT CHEST WO IVCON / PROCEDURE REASON: CHEST WO * * * * Physician Interpretation * * * * EXAMINATION: CHEST CT WITHOUT CONTRAST CLINICAL HISTORY: Lung nodules Technique: Spiral CT acquisition of the chest from the thoracic inlet to the upper abdomen without contrast. MQ: CTCWO_6 CT Radiation dose: Integrated Dose-length product (DLP) for this visit = 208 mGy*cm CT Dose Reduction Employed: Automated exposure control(AEC) and iterative recon Comparison: None RESULT: Limitations: None. Lines, tubes, and devices: There is a 2-lead cardiac ICD device with the tips located in the right atrial appendage and right ventricle. Lung parenchyma and airways: The trachea and central airways appear patent with minimal mucosal debris. There is minimal curvilinear opacities in the anterior lingula and right middle lobe suggestive of scarring and/or atelectasis. Mild bronchiectasis and scattered mucoid impaction in the right middle lobe (6:142, 156). Lungs are clear of focal consolidation. There are a few micronodules present, for example: 2 mm right middle lobe nodule (6:124) 2 mm right upper lobe nodule (6:95) Pleural space: No pleural effusion. No pleural thickening. Lower neck, lymph nodes, and mediastinum: The imaged thyroid gland is normal. No lymphadenopathy in the supraclavicular, axillary, mediastinal, or hilar regions. The esophagus is nondilated. Heart, pericardium, and thoracic vessels: There is atherosclerotic changes of the aorta. There is ectasia of the mid ascending thoracic aorta measuring 4.2 cm. The main pulmonary artery is normal in caliber. The cardiac chambers are normal in size. Triple-vessel coronary artery atherosclerotic calcifications are noted with LAD stent present, although the study is not optimized for coronary assessment. No pericardial effusion or thickening Bones and soft tissues: Degenerative end plate changes are present throughout the thoracic spine with anterior bridging osteophytes. No destructive bone lesion. Right shoulder arthroplasty. Chest wall is unremarkable. Upper abdomen: Hypodensity in the hepatic dome is too small to characterize but is likely benign reflecting a cyst or hemangioma. Localizer images: Lumbar spinal fusion hardware. No additional findings. IMPRESSION: A few micronodules, likely benign. No thoracic lymphadenopathy. Incidental Finding: Follow-up Acuity: Incidental Finding: Solid: <6 mm (solitary or multiple) Routing Code: N/A Recommendation: No imaging follow-up is recommended Time Frame: N/A Comments: If there are risk factors for lung malignancy, a follow-up chest CT exam could be obtained in 12 months --END OF FINDING-- Stock Car Driver: YOVANA Transcribe Date/Time: Jun 06 2025 9:13A Dictated by : DAMI PEREZ MD This examination was interpreted and the report reviewed and electronically signed by: CARLOS MANUEL ZELAYA MD on Jun 06 2025 11:52AM EST [id number] ACTIONABLE Invalid Interpretation Code [facility] Extremity Lower without Cont raon 05-24-2025 Extremity Lower without Contra [facility] Imaging Services [address] [place] [address] Extremity Lower without Contra MR#: [id number] Acct: [id number] Name: BRIGETTE HOLGUIN Rep #: [id number] : 1950 M 74 From: [place] Holley MD PCP: Dr. Paresh Carranza MD Status: REG CLI Study: Extremity Lower without Contra Date of Exam: Exam# [id number] Ordering Dr: Deangelo Rojas DO PROCEDURE: EXTREMITY LOWER WITHOUT CONTRA 05/24/2025 REASON FOR EXAM: TEMPLATING FOR RIGHT GERMAN TECHNIQUE: Procedure Code: CTELWO Modality: CT Procedure: EXTREMITY LOWER WITHOUT CONTRA Coronal and Sagittal reconstruction series were provided. CONTRAST: None One or more dose reduction techniques were used (e.g., Automated exposure control, adjustment of the mA and/or kV according to patient size, use of iterative reconstruction technique). RADIATION DOSE SUMMARY: DLP: 919 mGycm COMPARISON: None FINDINGS: There is moderate osteoarthritis of the right hip with joint space narrowing, cortical irregularity with subcortical cyst formation, and marginal osteophytes. No acute fracture or dislocation is seen. Hardware is noted in the lumbar spine. The pelvic bones appear intact. Adjacent soft tissues are unremarkable. There is no visible soft tissue mass or adenopathy. Vascular calcifications are noted. Mineralization is normal. CT/Extremity Lower without Contra IMPRESSION: There is moderate osteoarthritis of the right hip with joint space narrowing, cortical irregularity with subcortical cyst formation, and marginal osteophytes. Reading Location: [facility] CC: Dr. Deangelo Rojas DO; Dr. Paresh Carranza MD Stock Car Driver: Signed Normal [facility] Absolute lymphocyte countOrd ered By: Jairon Strickland on 05-19-2025 Lymphocytes Auto (Unsp spec) [#/Vol] 1.69 10*3/uL 0.83-4.51 [facility] Absolute neutrophil countOrd ered By: Jairon Strickland on 05-19-2025 Neutrophils (Bld) [#/Vol] 4.3 10*3/uL 2.0-7.7 [facility] Automated lymphocyte count a s percentage of total leukocytesOrdered By: Jairon Strickland on 05-19-2025 Lymphocytes/100 WBC Auto (Unsp spec) 25.2 % 19-41 [facility] Basophil percentageOrdered B y: Jairon Strickland on 05-19-2025 Basophils/100 WBC (Bld) 0.6 % 0-1 [facility] CBC W/Diff, Automatedon 05-04 Absolute Lymph 1.69 X10 3/uL Normal 0.83-4.51 [facility] Comment on above: Performed By: #### L 100.0100 ####[facility] [address] [place], [address] Absolute Neut 4.3 X10 3/uL Normal 2.0-7.7 [facility] Comment on above: Performed By: #### L 100.0100 ####[facility] [address] [place], [address] Basophils/100 WBC (Bld) 0.6 % Normal 0-1 [facility] Comment on above: Performed By: #### L 100.0100 ####[facility] [address] [place], [address] Eosinophils/100 WBC (Bld) 0.1 % Normal 0-5 [facility] Comment on above: Performed By: #### L 100.0100 ####[facility] [address] [place], [address] Erythrocyte distribution width (RBC) [Ratio] 13.3 % Normal 11.6-14.6 [facility] Comment on above: Performed By: #### L 100.0100 ####[facility] [address] [place], [address] Hematocrit (Bld) [Volume fraction] 37.4 % Low 40-54 [facility] Comment on above: Performed By: #### L 100.0100 ####[facility] [address] [place], [address] Hemoglobin (Bld) [Mass/Vol] 12.5 g/dL Low 13.0-16.5 [facility] Comment on above: Performed By: #### L 100.0100 ####[facility] [address] [place], [address] IG% 0.300 Normal 0.0-0.9 [facility] Comment on above: Result Comment: IG% - Immature Granulocytes (promyelocytes, myelocytes and metamyelocytes) > 1% indicates that a LEFT SHIFT is Present. Performed By: #### L 100.0100 ####[facility] [address] [place], [address] Lymphocytes/100 WBC (Bld) 25.2 % Normal 19-41 [facility] Comment on above: Performed By: #### L 100.0100 ####[facility] [address] [place], [address] MCH (RBC) [Entitic mass] 31.6 pg Normal 27.0-32.0 [facility] Comment on above: Performed By: #### L 100.0100 ####[facility] [address] [place], [address] MCHC (RBC) [Mass/Vol] 33.4 g/dL Normal 32-36 [facility] Comment on above: Performed By: #### L 100.0100 ####[facility] [address] [place], [address] MCV (RBC) [Entitic vol] 94.7 fL High 80-94 [facility] Comment on above: Performed By: #### L 100.0100 ####[facility] [address] [place], [address] Monocytes/100 WBC (Bld) 10.1 % High 0-10 [facility] Comment on above: Performed By: #### L 100.0100 ####[facility] [address] [place], [address] Neutrophils/100 WBC (Bld) 63.7 % Normal 47-70 [facility] Comment on above: Performed By: #### L 100.0100 ####[facility] [address] [place], [address] Nucleated RBC (Bld) [#/Vol] 0 10*3/uL Normal 0-5 [facility] Comment on above: Performed By: #### L 100.0100 ####[facility] [address] [place], [address] Platelet mean volume (Bld) [Entitic vol] 9.6 fL Normal 6.2-12.0 [facility] Comment on above: Performed By: #### L 100.0100 ####[facility] [address] [place], [address] Platelets (Bld) [#/Vol] 269 10*3/uL Normal 150-450 [facility] Comment on above: Performed By: #### L 100.0100 ####[facility] [address] [place], [address] RBC (Bld) [#/Vol] 3.95 10*6/uL Low 4.6-6.2 [facility] Comment on above: Performed By: #### L 100.0100 ####[facility] [address] [place], [address] RDW SD 47.2 fl High 35.1-43.9 [facility] Comment on above: Performed By: #### L 100.0100 ####[facility] [address] [place], [address] WBC (Bld) [#/Vol] 6.7 10*3/uL Normal 4.4-11.0 [facility] Comment on above: Performed By: #### L 100.0100 ####[facility] [address] [place], [address] Eosinophil percentageOrdered By: Jairon Strickland on 05-19-2025 Eosinophils/100 WBC (Bld) 0.1 % 0-5 [facility] Erythrocyte distribution wid th ratioOrdered By: Jairon Strickland on 05-19-2025 Erythrocyte distribution width (RBC) [Ratio] 13.3 % 11.6-14.6 [facility] Erythrocyte distribution wid th standard deviationOrdered By: Jairon Strickland on 05-19-2025 Erythrocyte distribution width (RBC) [Ratio] 47.2 fl High 35.1-43.9 [facility] Hematocrit Auto (Bld) [Volum e fraction]Ordered By: Jairon Strickland on 05-19-2025 Hematocrit (Bld) [Volume fraction] 37.4 % Low 40-54 [facility] Hemoglobin measurementOrdere d By: Jairon Strickland on 05-19-2025 Hemoglobin (Bld) [Mass/Vol] 12.5 g/dL Low 13.0-16.5 [facility] Immature granulocytes/100 WB C Auto (Bld)Ordered By: Jairon Strickland on 05-19-2025 Immature granulocytes/100 WBC (Bld) 0.300 % 0.0-0.9 [facility] Comment on above: IG% - Immature Granu locytes (promyelocytes, myelocytes and metamyelocytes) > 1% indicates that a LEFT SHIFT is Present. MCV (mean corpuscular volume ) determinationOrdered By: Jairon Strickland on 05-19-2025 MCV (RBC) [Entitic vol] 94.7 fL High 80-94 [facility] Mean corpuscular hemoglobin (MCH) determinationOrdered By: Jairon Strickland on 05-19-2025 MCH (RBC) [Entitic mass] 31.6 pg 27.0-32.0 [facility] Mean corpuscular hemoglobin concentration (MCHC) determinationOrdered By: Jairon Strickland on 05-19-2025 MCHC (RBC) [Mass/Vol] 33.4 g/dL 32-36 [facility] Mean platelet volume determi nationOrdered By: Jairon Strickland on 05-19-2025 Platelet mean volume (Bld) [Entitic vol] 9.6 fL 6.2-12.0 [facility] Monocyte percentageOrdered B y: Jairon Strickland on 05-19-2025 Monocytes/100 WBC (Bld) 10.1 % High 0-10 [facility] Neutrophil percentageOrdered By: Jairon Strickland on 05-19-2025 Neutrophils/100 WBC (Bld) 63.7 % 47-70 [facility] Nucleated red blood cell per centageOrdered By: Jairon Strickland on 05-19-2025 Nucleated RBC/100 WBC (Bld) [Ratio] 0 % 0-5 [facility] Platelet countOrdered By: Amee Strickland on 05-19-2025 Platelets (Bld) [#/Vol] 269 10*3/uL 150-450 [facility] RBC Auto (Bld) [#/Vol]Ordere d By: Jairon Strickland on 05-19-2025 RBC (Bld) [#/Vol] 3.95 10*6/uL Low 4.6-6.2 [facility] White blood cell (WBC) count Ordered By: Jairon Strickland on 05-19-2025 WBC (Bld) [#/Vol] 6.7 10*3/uL 4.4-11.0 [facility] Absolute lymphocyte countOrd ered By: Jairo Grande on 05-10-2025 Lymphocytes Auto (Unsp spec) [#/Vol] 1.49 10*3/uL 0.83-4.51 [facility] Absolute neutrophil countOrd ered By: Jairo Grande on 05-10-2025 Neutrophils (Bld) [#/Vol] 4.8 10*3/uL 2.0-7.7 [facility] Anion gap in Serum or Plasma Ordered By: Jairo Grande on 05-10-2025 Anion gap [Moles/Vol] 12 mmol/L 5- [facility] Automated lymphocyte count a s percentage of total leukocytesOrdered By: Jairo Grande on 05-10-2025 Lymphocytes/100 WBC Auto (Unsp spec) 20.9 % [facility] BUN/creatinine ratioOrdered By: Jairo Grande on 05-10-2025 Urea nitrogen/Creatinine [Mass ratio] 14.8 mg/mg 05-23 [facility] Basic Metabolic Profile (BMP )on 05-10-2025 BUN/CRE 14.8 RATIO Normal 05-23 [facility] Comment on above: Performed By: #### L 501.9520, L100.0100, L500.2500, L500.4100, L500.3400 ####[facility] [address] [place], [address] Calcium [Mass/Vol] 10.1 mg/dL Normal 7.6-11.0 [facility] Comment on above: Performed By: #### L 501.9520, L100.0100, L500.2500, L500.4100, L500.3400 ####[facility] [address] [place], [address] Chloride [Moles/Vol] 106 mmol/L Normal 98-108 [facility] Comment on above: Performed By: #### L 501.9520, L100.0100, L500.2500, L500.4100, L500.3400 ####[facility] [address] [place], [address] CO2 [Moles/Vol] 23.4 mmol/L Normal 21.0-32.0 [facility] Comment on above: Performed By: #### L 501.9520, L100.0100, L500.2500, L500.4100, L500.3400 ####[facility] [address] [place], [address] Creatinine [Mass/Vol] 1.28 mg/dL High 0.70-1.20 [facility] Comment on above: Performed By: #### L 501.9520, L100.0100, L500.2500, L500.4100, L500.3400 ####[facility] [address] [place], [address] GAP 12 Normal 5-15 [facility] Comment on above: Performed By: #### L 501.9520, L100.0100, L500.2500, L500.4100, L500.3400 ####[facility] [address] [place], [address] GFR/1.73 sq M.predicted among non-blacks MDRD (S/P/Bld) [Vol rate/Area] 59 mL/min/{1.73_m2} Low >60 [facility] Comment on above: Result Comment: mL/m in/1.73m2 CKD-EPI Creatinine Equation (2020) Performed By: #### L 501.9520, L100.0100, L500.2500, L500.4100, L500.3400 ####[facility] [address] [place], [address] Glucose [Mass/Vol] 99 mg/dL Normal 70-99 [facility] Comment on above: Performed By: #### L 501.9520, L100.0100, L500.2500, L500.4100, L500.3400 ####[facility] [address] [place], [address] Potassium [Moles/Vol] 4.5 mmol/L Normal 3.3-5.1 [facility] Comment on above: Performed By: #### L 501.9520, L100.0100, L500.2500, L500.4100, L500.3400 ####[facility] [address] [place], [address] Sodium [Moles/Vol] 142 mmol/L Normal 133-145 [facility] Comment on above: Performed By: #### L 501.9520, L100.0100, L500.2500, L500.4100, L500.3400 ####[facility] [address] [place], [address] Urea nitrogen [Mass/Vol] 19 mg/dL Normal 4-19 [facility] Comment on above: Performed By: #### L 501.9520, L100.0100, L500.2500, L500.4100, L500.3400 ####[facility] [address] [place], [address] Basophil percentageOrdered B y: Jairo Grande on 05-10-2025 Basophils/100 WBC (Bld) 0.6 % 0-1 [facility] Bilirubin directOrdered By: Jairo Grande on 05-10-2025 Bilirubin.direct [Mass/Vol] 0.24 mg/dL 0.00-0.30 [facility] Bilirubin, totalOrdered By: Jairo Grande on 05-10-2025 Bilirubin [Mass/Vol] 0.56 mg/dL 0.00-1.30 [facility] CBC W/Diff, Automatedon Absolute Lymph 1.49 X10 3/uL Normal 0.83-4.51 [facility] Comment on above: Performed By: #### L 501.9520, L100.0100, L500.2500, L500.4100, L500.3400 ####[facility] [address] [place], [address] Absolute Neut 4.8 X10 3/uL Normal 2.0-7.7 [facility] Comment on above: Performed By: #### L 501.9520, L100.0100, L500.2500, L500.4100, L500.3400 ####[facility] [address] [place], [address] Basophils/100 WBC (Bld) 0.6 % Normal 0-1 [facility] Comment on above: Performed By: #### L 501.9520, L100.0100, L500.2500, L500.4100, L500.3400 ####[facility] [address] [place], [address] Eosinophils/100 WBC (Bld) 0.1 % Normal 0-5 [facility] Comment on above: Performed By: #### L 501.9520, L100.0100, L500.2500, L500.4100, L500.3400 ####[facility] [address] [place], [address] Erythrocyte distribution width (RBC) [Ratio] 13.8 % Normal 11.6-14.6 [facility] Comment on above: Performed By: #### L 501.9520, L100.0100, L500.2500, L500.4100, L500.3400 ####[facility] [address] [place], [address] Hematocrit (Bld) [Volume fraction] 39.9 % Low 40-54 [facility] Comment on above: Performed By: #### L 501.9520, L100.0100, L500.2500, L500.4100, L500.3400 ####[facility] [address] [place], [address] Hemoglobin (Bld) [Mass/Vol] 13.5 g/dL Normal 13.0-16.5 [facility] Comment on above: Performed By: #### L 501.9520, L100.0100, L500.2500, L500.4100, L500.3400 ####[facility] [address] [place], [address] IG% 0.400 Normal 0.0-0.9 [facility] Comment on above: Result Comment: IG% - Immature Granulocytes (promyelocytes, myelocytes and metamyelocytes) > 1% indicates that a LEFT SHIFT is Present. Performed By: #### L 501.9520, L100.0100, L500.2500, L500.4100, L500.3400 ####[facility] [address] [place], [address] Lymphocytes/100 WBC (Bld) 20.9 % Normal 19-41 [facility] Comment on above: Performed By: #### L 501.9520, L100.0100, L500.2500, L500.4100, L500.3400 ####[facility] [address] [place], [address] MCH (RBC) [Entitic mass] 32.1 pg High 27.0-32.0 [facility] Comment on above: Performed By: #### L 501.9520, L100.0100, L500.2500, L500.4100, L500.3400 ####[facility] [address] [place], [address] MCHC (RBC) [Mass/Vol] 33.8 g/dL Normal 32-36 [facility] Comment on above: Performed By: #### L 501.9520, L100.0100, L500.2500, L500.4100, L500.3400 ####[facility] [address] [place], [address] MCV (RBC) [Entitic vol] 95.0 fL High 80-94 [facility] Comment on above: Performed By: #### L 501.9520, L100.0100, L500.2500, L500.4100, L500.3400 ####[facility] [address] [place], [address] Monocytes/100 WBC (Bld) 10.6 % High 0-10 [facility] Comment on above: Performed By: #### L 501.9520, L100.0100, L500.2500, L500.4100, L500.3400 ####[facility] [address] [place], [address] Neutrophils/100 WBC (Bld) 67.4 % Normal 47-70 [facility] Comment on above: Performed By: #### L 501.9520, L100.0100, L500.2500, L500.4100, L500.3400 ####[facility] [address] [place], [address] Nucleated RBC (Bld) [#/Vol] 0 10*3/uL Normal 0-5 [facility] Comment on above: Performed By: #### L 501.9520, L100.0100, L500.2500, L500.4100, L500.3400 ####[facility] [address] [place], [address] Platelet mean volume (Bld) [Entitic vol] 9.1 fL Normal 6.2-12.0 [facility] Comment on above: Performed By: #### L 501.9520, L100.0100, L500.2500, L500.4100, L500.3400 ####[facility] [address] [place], [address] Platelets (Bld) [#/Vol] 268 10*3/uL Normal 150-450 [facility] Comment on above: Performed By: #### L 501.9520, L100.0100, L500.2500, L500.4100, L500.3400 ####[facility] [address] [place], [address] RBC (Bld) [#/Vol] 4.20 10*6/uL Low 4.6-6.2 [facility] Comment on above: Performed By: #### L 501.9520, L100.0100, L500.2500, L500.4100, L500.3400 ####[facility] [address] [place], [address] RDW SD 48.4 fl High 35.1-43.9 [facility] Comment on above: Performed By: #### L 501.9520, L100.0100, L500.2500, L500.4100, L500.3400 ####[facility] [address] [place], [address] WBC (Bld) [#/Vol] 7.1 10*3/uL Normal 4.4-11.0 [facility] Comment on above: Performed By: #### L 501.9520, L100.0100, L500.2500, L500.4100, L500.3400 ####[facility] [address] [place], [address] Calculated very low density lipoprotein (VLDL) cholesterol measurementOrdered By: Jairo Grande on 05-10-2025 Calculated very low density lipoprotein (VLDL) cholesterol measurement 17 mg/dL 5-40 [facility] Carbon dioxide, total [Moles /volume] in Central venous bloodOrdered By: Jairo Grande on 05-10-2025 CO2 [Moles/Vol] 23.4 mmol/L 21.0-32.0 [facility] Cardiology Visit Reporton Cardiology Visit Report [facility] [address] [place], [place] [address] OFFICE VISIT Date of Service: 05/10/25 MR#: [id number] Acct: [id number] Name: BRIGETTE HOLGUIN Rep #: [id number] : 1950 Provider: ANABEL palmer Age/Sex: 74/M Location: [facility] [place] Status: Signed HPI HPI History of Present Illness Details: Mr. Holguin is a 74-year-old white male, who presents today for outpatient cardiovascular followup. As you know, he has a history of hypertension, hypercholesterolemia, paroxysmal atrial fibrillation, coronary artery disease status post angioplasty and drug-eluting stenting to the LAD at [facility] on 07/23/13. At that time he received [...] Visit Reasons: 4 M MEENU/JAZLYN @ 8:30 [employer] Licensee Required: No Is patient in pain?: No [...] the past year?: No PFSH Medical History (Reviewed 05/10/25 @ 09:31 by Jairo Grande IT APPLICATIONS ANALYST, IT APPLICATIONS ANALYST-C) Wears glasses Thyroid disease Blood disorder History of echocardiogram History of stress test Hypertension Cardiology follow-up encounter Knee pain with internal derangement determined by x-ray History of CVA (cerebrovascular accident) (08/2012) Chronic kidney disease (CKD) Essential (primary) hypertension B12 deficiency Complex partial seizure Non-smoker TIA (transient isch (more content not included)... Normal [facility] Chloride assayOrdered By: Charlotte Grande on 05-10-2025 Chloride [Moles/Vol] 106 mmol/L 98-108 [facility] Eosinophil percentageOrdered By: Jairo Grande on 05-10-2025 Eosinophils/100 WBC (Bld) 0.1 % 0-5 [facility] Erythrocyte distribution wid th ratioOrdered By: Jairo Grande on 05-10-2025 Erythrocyte distribution width (RBC) [Ratio] 13.8 % 11.6-14.6 [facility] Erythrocyte distribution wid th standard deviationOrdered By: Jairo Grande on 05-10-2025 Erythrocyte distribution width (RBC) [Ratio] 48.4 fl High 35.1-43.9 [facility] Glomerular filtration rate ( GFR) estimation/1.73 sq m using serum, plasma, or whole bOrdered By: Jairo Grande on 05-10-2025 GFR/1.73 sq M.predicted among non-blacks MDRD (S/P/Bld) [Vol rate/Area] 59 mL/min/{1.73_m2} Low >60 [facility] Comment on above: mL/min/1.73m2 CKD-EP I Creatinine Equation (2020) Hematocrit Auto (Bld) [Volum e fraction]Ordered By: Jairo Grande on 05-10-2025 Hematocrit (Bld) [Volume fraction] 39.9 % Low 40-54 [facility] Hemoglobin measurementOrdere d By: Jairo Grande on 05-10-2025 Hemoglobin (Bld) [Mass/Vol] 13.5 g/dL 13.0-16.5 [facility] Immature granulocytes/100 WB C Auto (Bld)Ordered By: Jairo Grande on 05-10-2025 Immature granulocytes/100 WBC (Bld) 0.400 % 0.0-0.9 [facility] Comment on above: IG% - Immature Granu locytes (promyelocytes, myelocytes and metamyelocytes) > 1% indicates that a LEFT SHIFT is Present. LDL calc ser/plasOrdered By: Jairo Grande on 05-10-2025 Cholesterol in LDL [Mass/Vol] 105 mg/dL [facility] Comment on above: Mbdncdewmn=419-855 m g/dL & Higher Gwmn=828 mg/dL or greaterFriedwald Equation for LDL-C Laboratory - Chemistry and C hemistry - challengeOrdered By: Jairo Grande on 05-10-2025 AST [Catalytic activity/Vol] 23 U/L <38 [facility] Lipid Profileon 05-10-2025 CHOL:HDL 3.15 Normal [facility] Comment on above: Performed By: #### L 501.9520, L100.0100, L500.2500, L500.4100, L500.3400 ####[facility] [address] [place], [address] Cholesterol [Mass/Vol] 179 mg/dL Normal <=200 [facility] Comment on above: Result Comment: Chol esterol level, Desirable <200 mg/dL Borderline high cholesterol 200-239 mg/dL High cholesterol >=240 mg/dL Recommendations of the NCEP Adult Treatment Panel for the following risk-cutoff thresholds for the [place] population. Performed By: #### L 501.9520, L100.0100, L500.2500, L500.4100, L500.3400 ####[facility] [address] [place], [address] Cholesterol in HDL [Mass/Vol] 57 mg/dL Normal [facility] Comment on above: Result Comment: Ivy onal Cholesterol Education Program (NCEP) guidelines: <40 mg/dL: Low HDL-cholesterol (major risk factor for CHD) >= 60 mg/dL: High HDL-cholesterol (negative risk factor for CHD) HDL-cholesterol is affected by a number of factors, e.g. smoking, exercise, hormones, sex and age. Performed By: #### L 501.9520, L100.0100, L500.2500, L500.4100, L500.3400 ####[facility] [address] [place], [address] Cholesterol in LDL [Mass/Vol] 105 mg/dL Normal [facility] Comment on above: Result Comment: Bord fwzigz=338-285 mg/dL Higher Jwpo=228 mg/dL or greater Friedwald Equation for LDL-C Performed By: #### L 501.9520, L100.0100, L500.2500, L500.4100, L500.3400 ####[facility] [address] [place], [address] Cholesterol in VLDL [Mass/Vol] 17 mg/dL Normal 5-40 [facility] Comment on above: Performed By: #### L 501.9520, L100.0100, L500.2500, L500.4100, L500.3400 ####[facility] [address] [place], [address] Triglyceride [Mass/Vol] 86 mg/dL Normal [facility] Comment on above: Result Comment: The drugs N-Acetylcysteine and Metamizole may falsely depress this assay. Normal range: <150 mg/dL Borderline High: 150-199 mg/dL High: 200-499 mg/dL Very High: >500 mg/dL Performed By: #### L 501.9520, L100.0100, L500.2500, L500.4100, L500.3400 ####[facility] [address] [place], [address] Liver Profileon 05-10-2025 Albumin [Mass/Vol] 4.2 g/dL Normal 3.4-4.8 [facility] Comment on above: Performed By: #### L 501.9520, L100.0100, L500.2500, L500.4100, L500.3400 ####[facility] [address] [place], [address] ALK PHOS 70 U/L Normal 40-129 [facility] Comment on above: Performed By: #### L 501.9520, L100.0100, L500.2500, L500.4100, L500.3400 ####[facility] [address] [place], [address] ALT [Catalytic activity/Vol] 17 U/L Normal <=46 [facility] Comment on above: Performed By: #### L 501.9520, L100.0100, L500.2500, L500.4100, L500.3400 ####[facility] [address] [place], [address] AST [Catalytic activity/Vol] 23 U/L Normal <=37 [facility] Comment on above: Performed By: #### L 501.9520, L100.0100, L500.2500, L500.4100, L500.3400 ####[facility] [address] [place], [address] Bilirubin [Mass/Vol] 0.56 mg/dL Normal 0.00-1.30 [facility] Comment on above: Performed By: #### L 501.9520, L100.0100, L500.2500, L500.4100, L500.3400 ####[facility] [address] [place], [address] Bilirubin.direct [Mass/Vol] 0.24 mg/dL Normal 0.00-0.30 [facility] Comment on above: Performed By: #### L 501.9520, L100.0100, L500.2500, L500.4100, L500.3400 ####[facility] [address] [place], [address] Globulin (S) [Mass/Vol] 2.4 g/dL Normal 2.2-4.2 [facility] Comment on above: Performed By: #### L 501.9520, L100.0100, L500.2500, L500.4100, L500.3400 ####[facility] [address] [place], [address] T PROT 6.5 g/dL Normal 5.9-8.4 [facility] Comment on above: Performed By: #### L 501.9520, L100.0100, L500.2500, L500.4100, L500.3400 ####[facility] [address] [place], [address] MCV (mean corpuscular volume ) determinationOrdered By: Jairo Grande on 05-10-2025 MCV (RBC) [Entitic vol] 95.0 fL High 80-94 [facility] Mean corpuscular hemoglobin (MCH) determinationOrdered By: Jairo Grande on 05-10-2025 MCH (RBC) [Entitic mass] 32.1 pg High 27.0-32.0 [facility] Mean corpuscular hemoglobin concentration (MCHC) determinationOrdered By: Jairo Grande on 05-10-2025 MCHC (RBC) [Mass/Vol] 33.8 g/dL 32-36 [facility] Mean platelet volume determi nationOrdered By: Jairo Grande on 05-10-2025 Platelet mean volume (Bld) [Entitic vol] 9.1 fL 6.2-12.0 [facility] Monocyte percentageOrdered B y: Jairo Grande on 05-10-2025 Monocytes/100 WBC (Bld) 10.6 % High 0-10 [facility] Neutrophil percentageOrdered By: Jairo Grande on 05-10-2025 Neutrophils/100 WBC (Bld) 67.4 % 47-70 [facility] Nucleated red blood cell per centageOrdered By: Jairo Grande on 05-10-2025 Nucleated RBC/100 WBC (Bld) [Ratio] 0 % 0-5 [facility] Pacemaker Checkon 05-10-2025 Pacemaker Check [facility] [address] [place], [place] [address] Pacemaker Check Date of Service: 05/10/25 1607 MR#: [id number] Acct: [id number] Name: BRIGETTE HOLGUIN Rep #: [id number] : 1950 From: Argenis Mcgee Age/Sex: 74/M Location: [facility] [place] Status: Signed Billing Codes PM Device Codes: 44107 PM Dev Prog Eval, Dual Assessment and Plan Assessment and Plan (1) History of permanent cardiac pacemaker placement: Status: Acute Comment: 06/2023 (2) Sick sinus syndrome: Status: Chronic (3) Dwwfc-Zjsxmgprc-Vthkm (WPW) syndrome: Status: Chronic Plan Details Goals Barriers: Goals Decrease pain Decrease inflammation Improve ROM Barriers cervical disc herniation previous lumbar surgery 05/10/25 1608 Date Argenis Pulido Signature: Date (if applicable) CC: Normal [facility] Platelet countOrdered By: Charlotte Grande on 05-10-2025 Platelets (Bld) [#/Vol] 268 10*3/uL 150-450 [facility] Potassium measurement (mass/ volume)Ordered By: Jairo Grande on 05-10-2025 Potassium (Unsp spec) [Mass/Vol] 4.5 mmol/L 3.3-5.1 [facility] RBC Auto (Bld) [#/Vol]Ordere d By: Jairo Grande on 05-10-2025 RBC (Bld) [#/Vol] 4.20 10*6/uL Low 4.6-6.2 [facility] Screening total cholesterol/ high density lipoprotein (HDL) cholesterol ratioOrdered By: Jairo Grande on 05-10-2025 Cholesterol.total/Chol esterol in HDL [Mass ratio] 3.15 {ratio} [facility] Serum creatinine measurement (mass/volume)Ordered By: Jairo Grande on 05-10-2025 Creatinine [Mass/Vol] 1.28 mg/dL High 0.70-1.20 [facility] Serum globulin measurementOr dered By: Jairo Grande on 05-10-2025 Globulin (S) [Mass/Vol] 2.4 g/dL 2.2-4.2 [facility] Serum glucose measurement (m ass/volume)Ordered By: Jairo Grande on 05-10-2025 Glucose [Mass/Vol] 99 mg/dL 70-99 [facility] Serum or plasma alanine chavez otransferase (ALT) measurementOrdered By: Jairo Grande on 10-07-2025 ALT [Catalytic activity/Vol] 17 U/L <47 [facility] Serum or plasma albumin gm urement (mass/volume)Ordered By: Jairo Grande on 05-10-2025 Albumin [Mass/Vol] 4.2 g/dL 3.4-4.8 [facility] Serum or plasma alkaline lynn sphatase measurementOrdered By: Jairo Grande on 05-10-2025 ALP [Catalytic activity/Vol] 70 U/L 40-129 [facility] Serum or plasma calcium gm urement (mass/volume)Ordered By: Jairo Grande on 05-10-2025 Calcium [Mass/Vol] 10.1 mg/dL 7.6-11.0 [facility] Serum or plasma cholesterol in HDL measurement (mass/volume)Ordered By: Jairo Grande on 05-10-2025 Cholesterol in HDL [Mass/Vol] 57 mg/dL >40 [facility] Comment on above: National Cholesterol Education Program (NCEP) guidelines:<40 mg/dL: Low HDL-cholesterol (major risk factor for CHD)>= 60 mg/dL: High HDL-cholesterol (negative risk factor for CHD)HDL-cholesterol is affected by a number of factors, e.g. smoking, exercise, hormones, sex and age. Serum or plasma cholesterol measurement (mass/volume)Ordered By: Jairo Grande on 05-10-2025 Cholesterol [Mass/Vol] 179 mg/dL <201 [facility] Comment on above: Cholesterol level, D esirable <200 mg/dLBorderline high cholesterol 200-239 mg/dLHigh cholesterol >=240 mg/dLRecommendations of the NCEP Adult Treatment Panel for the following risk-cutoff thresholds for the [place] population. Serum or plasma urea nitroge n measurement (mass/volume)Ordered By: Jairo Grande on 05-10-2025 Urea nitrogen [Mass/Vol] 19 mg/dL 4-19 [facility] Sodium levelOrdered By: Jairo Grande on 05-10-2025 Sodium [Moles/Vol] 142 mmol/L 133-145 [facility] TSH DL <= 0.005 mIU/L QnOrde red By: Jairo Grande on 05-10-2025 TSH Qn 1.760 uIU/mL 0.300-4.20 0 [facility] Thyroid Stim Hormone (TSH)on 05-10-2025 TSH 1.760 uIU/mL Normal 0.300-4.20 0 [facility] Comment on above: Performed By: #### L 501.9520, L100.0100, L500.2500, L500.4100, L500.3400 ####[facility] [address] [place], [address] Total proteinOrdered By: Suman Grande on 05-10-2025 Protein [Mass/Vol] 6.5 g/dL 5.9-8.4 [facility] Triglycerides measurementOrd ered By: Jairo Grande on 05-10-2025 Triglyceride [Mass/Vol] 86 mg/dL <199 [facility] Comment on above: The drugs N-Acetylcy steine and Metamizole may falsely depress this assay. Normal range: <150 mg/dLBorderline High: 150-199 mg/dLHigh: 200-499 mg/dLVery High: >500 mg/dL White blood cell (WBC) count Ordered By: Jairo Grande on 05-10-2025 WBC (Bld) [#/Vol] 7.1 10*3/uL 4.4-11.0 [facility] Orthopedic Visit Reporton Orthopedic Visit Report [facility] [address] [place] [address] 5 [place] [address] OFFICE VISIT Date of Service: 04/20/25 MR#: [id number] Acct: [id number] Name: BRIGETTE HOLGUIN Rep #: [id number] : 1950 Provider: Dr. Deangelo Virgen so, DO Age/Sex: 74/M Location: [facility] [place] Status: Signed Intake Vital Signs 01/05/25 09:23 [...] Carotid artery stenosis HLD (hyperlipidemia) Sinus bradycardia Ithlu-Jrtomzcoq-Iabqb (WPW) syndrome Sick sinus syndrome Old myocardial infarction BPH (benign prostatic hyperplasia) Atherosclerosis of coronary artery of [place] heart without angina pectoris Segmental and somatic [...] to ambulate. Dr. Landeros did prescribe him [place] but he doesn't like to take it unless he is having severe pain. He does use Voltaren gel for the hip. He has done PT and does exercises (more content not included)... Normal [facility] Magnetic resonance imaging r eportOrdered By: Washington Holley on 04-18-2025 Study report [facility] Imaging Services [address] [place] [address] Lower Ext Joint Only (Routine) MR#: [id number] Acct: [id number] Name: BRIGETTE HOLGUIN Rep #: [id number] : 1950 M 74 From: Anna Marie Holley MD PCP: Dr. Paresh Carranza MD Status: REG C LI Study:Lower Ext Joint Only (Routine) Date of Exam: 04/15/25 Exam# [id number] Ordering Dr: Deangelo Rojas DO PROCEDURE: LOWER [...] anterior superior labrum, axial PD image 04/02. Hip joint: There is no intra-articular body. [...] Rojas DO; Dr. Paresh Carranza MD ~ Stock Car Driver: Signed [facility] Lower Ext Joint Only (Routin e)on 04-15-2025 Lower Ext Joint Only (Routine) [facility] Imaging Services [address] [place], [place] [id number] Lower Ext Joint Only (Routine) MR#: [id number] Acct: [id number] Name: BRIGETTE HOLGUIN Rep #: [id number] : 1950 M 74 From: Washington Holley MD PCP: Dr. Paresh Carranza MD Status: REG CLI Study: Lower Ext Joint Only (Routine) Date of Exam: 0 04/15/25 Exam# [id number] Ordering Dr: Deangelo Rojas DO PROCEDURE: LOWER [...] anterior superior labrum, axial PD image 04/02. Hip joint: There is no intra-articular body. [...] Deangelo Rojas DO; Dr. Paresh Carranza MD Stock Car Driver: Signed Normal [facility] Orthopedic Visit Reporton Orthopedic Visit Report [facility] [address] [place] [address] 5 [place] [address] OFFICE VISIT Date of Service: 04/11/25 MR#: [id number] Acct: [id number] Name: BRIGETTE HOLGUIN Rep #: [id number] : 1950 Provider: Dr. Deangelo gifford DO Age/Sex: 74/M Location: [facility] [place] Status: Signed Intake Vital Signs 01/05/25 09:23 [...] Carotid artery stenosis HLD (hyperlipidemia) Sinus bradycardia Fihqx-Ujphnrnff-Kpgxv (WPW) syndrome Sick sinus syndrome Old myocardial infarction BPH (benign prostatic hyperplasia) Atherosclerosis of coronary artery of [place] heart without angina pectoris Segmental and somatic [...] to ambulate. Dr. Landeros did prescribe him [place] but he doesn't like to take it unless he is having severe pain. He does use (more content not included)... Normal [facility] Inital Evaluation (1) - PTon 02-01-2025 Inital Evaluation (1) - PT [facility] Physical Therapy [facility] [address] [place] [address]. [address] [place] [address] / REHABILITATION SERVICES INITIAL EVALUATION MR#: [id number] Acct: [id number] Name: BRIGETTE HOLGUIN Rep #: [id number] : 1950 74 From: Rosa Maria MCGINNIS Referring Dr.: Dr. Deangelo Rojas DO Status: R EG RCR Insurance: MEDICARE PART A B [facility] Patient's Visit Information Visit Information Visit [...] stability, gait training with HEP HEP: Brittney melo stretch (just getting into position with leg [...] To improve (more content not included)... Normal [facility] Cardiology Visit Reporton Cardiology Visit Report [facility] [address] [place] [address] OFFICE VISIT Date of Service: 01/05/25 MR#: [id number] Acct: [id number] Name: BRIGETTE HOLGUIN Rep #: [id number] : 1950 Provider: ANABEL palmer Age/Sex: 74/M Location: [facility] Status: Signed HPI HPI History of Present Illness Details: Mr. Holguin is a 74-year-old white male, who presents today for outpatient cardiovascular followup. As you know, he has a history of hypertension, hypercholesterolemia, paroxysmal atrial fibrillation, coronary artery disease status post angioplasty and drug-eluting stenting to the LAD at [facility] on 07/23/13. At that time he received [...] NIBP Intake Visit Reasons: 2-3 M FU [employer] Licensee Required: No Accompanied by: Is patient in [...] you fallen in the past year?: No ON LICENSE OF [facility] Medical History Wears glasses Thyroid disease Blood disorder History of echocardiogram History of stress test Hypertension Cardiology follow-up encounter Knee pain with internal derangement determined by x-ray History of CVA (cerebrovascular accident) (08/2012) Chronic kidney disease (CKD) Essential (primary) hypertension B12 deficiency Complex partial seizure Non-smoker TIA (transient ischemic attack) Urinary retention Segment (more content not included)... Normal [facility] HIP, UNI W/ Pelvis 2-3 Views on 12-31-2024 HIP, UNI W/ Pelvis 2-3 Views [facility] Imaging Services [address] [place] [address] HIP, UNI W/ Pelvis 2-3 Views MR#: [id number] Acct: [id number] Name: BRIGETTE HOLGUIN Rep #: [id number] : 1950 M 74 From: Jairon Salinas MD PCP: Dr. Paresh Carranza MD Status: DEP AMB Study: HIP, UNI W/ Pelvis 2-3 Views Date of Exam: Exam# [id number] Ordering Dr: Deangelo Rojas DO PROCEDURE: HIP, UNI W/ PELVIS 2-3 VIEWS 12/31/2024 REASON FOR EXAM: CHRONIC PAIN, TECHNIQUE: AP pelvis and two views right hip, 3 total images COMPARISON: None available FINDINGS: Ysvh-xw-okppdenb lateral joint space narrowing right hip with some acetabular sclerotic change. No significant osteophyte formation identified. No fracture or dislocation. Symmetric appearing SI joints and pubic symphysis appear within limits. Lower lumbar hardware and degenerative changes. Possible exostosis left ilium. RAD/HIP, UNI W/ Pelvis 2-3 Views IMPRESSION: Xrxe-di-rfusfejv appearing osteoarthrosis right hip. Reading Location: [facility] CC: Dr. Deangelo Rojas DO; Dr. Paresh Carranza MD Stock Car Driver: Signed Normal [facility] Lumbar Spine 2 or 3 Viewson 12-31-2024 Lumbar Spine 2 or 3 Views [facility] Imaging Services [address] [place] [address] Lumbar Spine 2 or 3 Views MR#: [id number] Acct: [id number] Name: BRIGETTE HOLGUIN Rep #: [id number] : 1950 M 74 From: Jairon Salinas MD PCP: Dr. Paresh Carranza MD Status: DEP AMB Study: Lumbar Spine 2 or 3 Views Date of Exam: Exam# [id number] Ordering Dr: Deangelo Rojas DO PROCEDURE: LUMBAR [...] appearing interval change as above. Reading Location: [facility] CC: Dr. Deangelo Rojas DO; Dr. Paresh Carranza MD Stock Car Driver: Signed Normal [facility] Orthopedic Visit Reporton Orthopedic Visit Report [facility] [address] [place] [address] [address] [place], [place] [id number] OFFICE VISIT Date of Service: 12/31/24 MR#: [id number] Acct: [id number] Name: BRIGETTE HOLGUIN Rep #: [id number] : 1950 Provider: Dr. Deangelo Virgen so, DO Age/Sex: 74/M Location: [facility] [place] Status: Signed Intake Vital Signs 11/08/24 10:42 [...] Carotid artery stenosis HLD (hyperlipidemia) Sinus bradycardia Hgckd-Lrygexxye-Kpyhh (WPW) syndrome Sick sinus syndrome Old myocardial infarction BPH (benign prostatic hyperplasia) Atherosclerosis of coronary artery of [place] heart without angina pectoris Segmental and somatic [...] but stops (more content not included)... Normal [facility] Cardiovascular stress test r eportOrdered By: Chevy Rooney on 11-16-2024 Study report [facility] [address] [place] [address] MR#: [id number] Acct: [id number] Name: BRIGETTE HOLGUIN Rep #: [id number] : 1950 74 From: Chevy Rooney MD Primary Care: Dr. Paresh Carranza MD Status : REG CLI Referring Dr: Jairo Grande NP IT APPLICATIONS ANALYST-C Sex: M C Stress Test Report Pharmacologic [...] 1226 Date _ Chevy Rooney MD CC: IT APPLICATIONS ANALYST-C Jairo Grande; Dr. Paresh Carranza MD ~ Date Dictated: 11/16/241224 Date Transcribed: 11/16/241224 Stock Car Driver: [place] Signed [facility] Work Phone: Echo Completeon 11-16-2024 Echo Complete [facility] [address] [facility] [place] [address] Echo Complete 11/16/24 0741 MR#: [id number] Acct: [id number] Name: BRIGETTE HOLGUIN Rep #: [id number] : 1950 74 From: Chevy Rooney MD Attending Dr: ANABEL Murray Status: REG CLI Ordering Dr: Jairo Grande NP, NP-C Date: 11/16/24 Location: [facility] Sex: M C Admitted: Reason For [...] Referring Physician: Paresh Carranza Performed By: Unique Butt RDCS 11/16/24921 Date Chevy Rooney MD CC: IT APPLICATIONS ANALYST-C Jairo Grande; Dr. Paresh Carranza MD Date Dictated: 11/16/24740 Date Transcribed: 11/16/24921 Stock Car Driver: Signed Normal [facility] Echocardiogram study reportO rdered By: Chevy Rooney on 11-16-2024 Study report [facility] [place] [address] Echo Complete 11/16/24 0741 MR#: [id number] Acct: [id number] Name: BRIGETTE HOLGUIN Rep #:[id number] : 1950 74 From: Chevy Dunn Attending Dr: Jairo Grande, IT APPLICATIONS ANALYST-C Sta tus: REG CLI Ordering Dr: Jairo Grande NP IT APPLICATIONS ANALYST-C Date: 11/16/24 Location: [facility] Sex: M C Admitted: Reason For [...] Referring Physician: Paresh Carranza Performed By: Unique Butt RDCS 11/16/24921 Date _ Chevy Rooney MD CC: IT APPLICATIONS ANALYST-C Jairo Grande; Dr. Paresh Carranza MD ~ Date Dictated: 11/16/24740 Date Transcribed: 11/16/24921 Stock Car Driver: Signed [facility] Work Phone: Stress Reporton 11-16-2024 Stress Report [facility] [address] [place] [address] MR#: [id number] Acct: [id number] Name: BRIGETTE OHLGUIN Rep #: [id number] : 1950 74 From: Chevy Rooney MD Primary Care: Dr. Paresh Carranza MD Status: REG CLI Referring Dr: Jairo Grande NP IT APPLICATIONS ANALYST-C Sex: M C Stress Test Report Pharmacologic [...] MD Date Dictated: 11/16/241224 Date Transcribed: 11/16/241224 Stock Car Driver: [place] Signed Normal [facility] Absolute lymphocyte countOrd ered By: Jairo Grande on 11-08-2024 Lymphocytes Auto (Unsp spec) [#/Vol] 1.69 10*3/uL 0.83-4.51 [facility] Absolute neutrophil countOrd ered By: Jairo Grande on 11-08-2024 Neutrophils (Bld) [#/Vol] 4.3 10*3/uL 2.0-7.7 [facility] Anion gap in Serum or Plasma Ordered By: Jairo Grande on 11-08-2024 Anion gap [Moles/Vol] 12 mmol/L - [facility] Automated lymphocyte count a s percentage of total leukocytesOrdered By: Jairo Grande on 11-08-2024 Lymphocytes/100 WBC Auto (Unsp spec) 25.1 % 19- [facility] BUN/creatinine ratioOrdered By: Jairo Grande on 11-08-2024 Urea nitrogen/Creatinine [Mass ratio] 16.9 mg/mg 10-20 [facility] Basophil percentageOrdered B y: Jairo Grande on 11-08-2024 Basophils/100 WBC (Bld) 0.6 % 0-1 [facility] Bilirubin, totalOrdered By: Jairo Grande on 11-08-2024 Bilirubin [Mass/Vol] 0.62 mg/dL 0.00-1.30 [facility] CBC W/Diff, Automatedon Absolute Lymph 1.69 X10 3/uL Normal 0.83-4.51 [facility] Comment on above: Performed By: #### L 503.7505, L500.4050, L100.0100, L501.9520, L506.0400 #### [facility] [address] [place], [address] Absolute Neut 4.3 X10 3/uL Normal 2.0-7.7 [facility] Comment on above: Performed By: #### L 503.7505, L500.4050, L100.0100, L501.9520, L506.0400 #### [facility] [address] [place], [address] Basophils/100 WBC (Bld) 0.6 % Normal 0-1 [facility] Comment on above: Performed By: #### L 503.7505, L500.4050, L100.0100, L501.9520, L506.0400 #### [facility] [address] [place], [address] Eosinophils/100 WBC (Bld) 0.3 % Normal 0-5 [facility] Comment on above: Performed By: #### L 503.7505, L500.4050, L100.0100, L501.9520, L506.0400 #### [facility] [address] [place], [address] Erythrocyte distribution width (RBC) [Ratio] 14.0 % Normal 11.6-14.6 [facility] Comment on above: Performed By: #### L 503.7505, L500.4050, L100.0100, L501.9520, L506.0400 #### [facility] [address] [place], [address] Hematocrit (Bld) [Volume fraction] 39.5 % Low 40-54 [facility] Comment on above: Performed By: #### L 503.7505, L500.4050, L100.0100, L501.9520, L506.0400 #### [facility] [address] [place], [address] Hemoglobin (Bld) [Mass/Vol] 13.3 g/dL Normal 13.0-16.5 [facility] Comment on above: Performed By: #### L 503.7505, L500.4050, L100.0100, L501.9520, L506.0400 #### [facility] [address] [place], [address] IG% 0.300 Normal 0.0-0.9 [facility] Comment on above: Result Comment: IG% - Immature Granulocytes (promyelocytes, myelocytes and metamyelocytes) > 1% indicates that a LEFT SHIFT is Present. Performed By: #### L 503.7505, L500.4050, L100.0100, L501.9520, L506.0400 #### [facility] [address] [place], [address] Lymphocytes/100 WBC (Bld) 25.1 % Normal 19-41 [facility] Comment on above: Performed By: #### L 503.7505, L500.4050, L100.0100, L501.9520, L506.0400 #### [facility] [address] [place], [address] MCH (RBC) [Entitic mass] 31.1 pg Normal 27.0-32.0 [facility] Comment on above: Performed By: #### L 503.7505, L500.4050, L100.0100, L501.9520, L506.0400 #### [facility] [address] [place], [address] MCHC (RBC) [Mass/Vol] 33.7 g/dL Normal 32-36 [facility] Comment on above: Performed By: #### L 503.7505, L500.4050, L100.0100, L501.9520, L506.0400 #### [facility] [address] [place], [address] MCV (RBC) [Entitic vol] 92.5 fL Normal 80-94 [facility] Comment on above: Performed By: #### L 503.7505, L500.4050, L100.0100, L501.9520, L506.0400 #### [facility] [address] [place], [address] Monocytes/100 WBC (Bld) 9.6 % Normal 0-10 [facility] Comment on above: Performed By: #### L 503.7505, L500.4050, L100.0100, L501.9520, L506.0400 #### [facility] [address] [place], [address] Neutrophils/100 WBC (Bld) 64.1 % Normal 47-70 [facility] Comment on above: Performed By: #### L 503.7505, L500.4050, L100.0100, L501.9520, L506.0400 #### [facility] [address] [place], [address] Nucleated RBC (Bld) [#/Vol] 0 10*3/uL Normal 0-5 [facility] Comment on above: Performed By: #### L 503.7505, L500.4050, L100.0100, L501.9520, L506.0400 #### [facility] [address] [place], [address] Platelet mean volume (Bld) [Entitic vol] 9.8 fL Normal 6.2-12.0 [facility] Comment on above: Performed By: #### L 503.7505, L500.4050, L100.0100, L501.9520, L506.0400 #### [facility] [address] [place], [address] Platelets (Bld) [#/Vol] 229 10*3/uL Normal 150-450 [facility] Comment on above: Performed By: #### L 503.7505, L500.4050, L100.0100, L501.9520, L506.0400 #### [facility] [address] [place], [address] RBC (Bld) [#/Vol] 4.27 10*6/uL Low 4.6-6.2 [facility] Comment on above: Performed By: #### L 503.7505, L500.4050, L100.0100, L501.9520, L506.0400 #### [facility] [address] [place], [address] RDW SD 47.5 fl High 35.1-43.9 [facility] Comment on above: Performed By: #### L 503.7505, L500.4050, L100.0100, L501.9520, L506.0400 #### [facility] [address] [place], [address] WBC (Bld) [#/Vol] 6.7 10*3/uL Normal 4.4-11.0 [facility] Comment on above: Performed By: #### L 503.6675, L500.4050, L100.0100, L501.9520, L506.0400 #### [facility] [address] [place], [address] Carbon dioxide, total [Moles /volume] in Central venous bloodOrdered By: Jairo Grande on 11-08-2024 CO2 [Moles/Vol] 23.9 mmol/L 21.0-32.0 [facility] Cardiology Visit Reporton Cardiology Visit Report [facility] [address] [place] [address] OFFICE VISIT Date of Service: 11/08/24 MR#: [id number] Acct: [id number] Name: BRIGETTE HOLGUIN Rep #: [id number] : 1950 Provider: ANABEL palmer Age/Sex: 74/M Location: [facility] Status: Signed HPI HPI History of Present Illness Details: Mr. Holguin is a 73-year-old white male, who presents today for outpatient cardiovascular followup. As you know, he has a history of hypertension, hypercholesterolemia, paroxysmal atrial fibrillation, coronary artery disease status post angioplasty and drug-eluting stenting to the LAD at [facility] on 07/23/13. At that time he received [...] Reasons: 6 M FU/ See Jazlyn @ [employer] Licensee Required: No Is patient in pain?: No [...] dosages of vit k2 and vit d3 ON LICENSE OF [facility] Medical History Wears glasses Thyroid disease Blood disorder History of echocardiogram History of stress test Hypertension Cardiology follow-up encounter Knee pain with internal derangement determined by x-ray History of CVA (cerebrovascular accident) (08/2012) Chronic kidney disease (CKD) Essential (primary) hypertension B12 deficiency Complex partial seizure Non-s (more content not included)... Normal [facility] Chloride assayOrdered By: Charlotte Grande on 11-08-2024 Chloride [Moles/Vol] 107 mmol/L 98-108 [facility] Comprehensive Metabolic Prof ilon 11-08-2024 Albumin [Mass/Vol] 4.2 g/dL Normal 3.4-4.8 [facility] Comment on above: Performed By: #### L 503.7505, L500.4050, L100.0100, L501.9520, L506.0400 #### [facility] [address] [place], [address] Albumin/Globulin [Mass ratio] 1.7 {ratio} Normal 0.9-2.4 [facility] Comment on above: Performed By: #### L 503.7505, L500.4050, L100.0100, L501.9520, L506.0400 #### [facility] [address] [place], [address] ALK PHOS 78 U/L Normal 40-129 [facility] Comment on above: Performed By: #### L 503.7505, L500.4050, L100.0100, L501.9520, L506.0400 #### [facility] [address] [place], [address] ALT [Catalytic activity/Vol] 16 U/L Normal <=46 [facility] Comment on above: Performed By: #### L 503.7505, L500.4050, L100.0100, L501.9520, L506.0400 #### [facility] [address] [place], [address] AST [Catalytic activity/Vol] 21 U/L Normal <=37 [facility] Comment on above: Performed By: #### L 503.7505, L500.4050, L100.0100, L501.9520, L506.0400 #### [facility] [address] [place], [address] Bilirubin [Mass/Vol] 0.62 mg/dL Normal 0.00-1.30 [facility] Comment on above: Performed By: #### L 503.7505, L500.4050, L100.0100, L501.9520, L506.0400 #### [facility] [address] [place], [address] BUN/CRE 16.9 RATIO Normal 10-20 [facility] Comment on above: Performed By: #### L 503.7505, L500.4050, L100.0100, L501.9520, L506.0400 #### [facility] [address] [place], [address] Calcium [Mass/Vol] 9.9 mg/dL Normal 7.6-11.0 [facility] Comment on above: Performed By: #### L 503.7505, L500.4050, L100.0100, L501.9520, L506.0400 #### [facility] [address] [place], [address] Chloride [Moles/Vol] 107 mmol/L Normal 98-108 [facility] Comment on above: Performed By: #### L 503.7505, L500.4050, L100.0100, L501.9520, L506.0400 #### [facility] [address] [place], [address] CO2 [Moles/Vol] 23.9 mmol/L Normal 21.0-32.0 [facility] Comment on above: Performed By: #### L 503.7505, L500.4050, L100.0100, L501.9520, L506.0400 #### [facility] [address] [place], [address] Creatinine [Mass/Vol] 1.42 mg/dL High 0.70-1.20 [facility] Comment on above: Performed By: #### L 503.7505, L500.4050, L100.0100, L501.9520, L506.0400 #### [facility] [address] [place], [address] GAP 12 Normal 5-15 [facility] Comment on above: Performed By: #### L 503.7505, L500.4050, L100.0100, L501.9520, L506.0400 #### [facility] [address] [place], [address] GFR/1.73 sq M.predicted among non-blacks MDRD (S/P/Bld) [Vol rate/Area] 52 mL/min/{1.73_m2} Low >60 [facility] Comment on above: Result Comment: mL/m in/1.73m2 CKD-EPI Creatinine Equation (2020) Performed By: #### L 503.7505, L500.4050, L100.0100, L501.9520, L506.0400 #### [facility] [address] [place], [address] Globulin (S) [Mass/Vol] 2.4 g/dL Normal 2.2-4.2 [facility] Comment on above: Performed By: #### L 503.7505, L500.4050, L100.0100, L501.9520, L506.0400 #### [facility] [address] [place], [address] Glucose [Mass/Vol] 95 mg/dL Normal 70-99 [facility] Comment on above: Performed By: #### L 503.7505, L500.4050, L100.0100, L501.9520, L506.0400 #### [facility] [address] [place], [address] Potassium [Moles/Vol] 4.4 mmol/L Normal 3.3-5.1 [facility] Comment on above: Performed By: #### L 503.7505, L500.4050, L100.0100, L501.9520, L506.0400 #### [facility] [address] [place], [address] Sodium [Moles/Vol] 143 mmol/L Normal 133-145 [facility] Comment on above: Performed By: #### L 503.7505, L500.4050, L100.0100, L501.9520, L506.0400 #### [facility] [address] [place], [address] T PROT 6.6 g/dL Normal 5.9-8.4 [facility] Comment on above: Performed By: #### L 503.7505, L500.4050, L100.0100, L501.9520, L506.0400 #### [facility] [address] [place], [address] Urea nitrogen [Mass/Vol] 24 mg/dL High 4-19 [facility] Comment on above: Performed By: #### L 503.7505, L500.4050, L100.0100, L501.9520, L506.0400 #### [facility] [address] [place], [address] Eosinophil percentageOrdered By: Jairo Grande on 11-08-2024 Eosinophils/100 WBC (Bld) 0.3 % 0-5 [facility] Erythrocyte distribution wid th (RBC) [Ratio]Ordered By: Jairo Grande on 11-08-2024 Erythrocyte distribution width (RBC) [Entitic vol] 47.5 fL High 35.1-43.9 [facility] Erythrocyte distribution wid th ratioOrdered By: Jairo Grande on 11-08-2024 Erythrocyte distribution width (RBC) [Ratio] 14.0 % 11.6-14.6 [facility] Erythrocyte distribution wid th standard deviationOrdered By: Jairo Grande on 11-08-2024 Erythrocyte distribution width (RBC) [Ratio] 47.5 fl High 35.1-43.9 [facility] GFR/1.73 sq M.predicted brigitte g non-blacks MDRD (S/P/Bld) [Vol rate/Area]Ordered By: Jairo Grande on 11-08-2024 Estimated GFR (MDRD) Non-Af Amer 52 Low >60 [facility] Comment on above: mL/min/1.73m2 CKD-EP I Creatinine Equation (2020) Glomerular filtration rate ( GFR) estimation/1.73 sq m using serum, plasma, or whole bOrdered By: Jairo Grande on 11-08-2024 GFR/1.73 sq M.predicted among non-blacks MDRD (S/P/Bld) [Vol rate/Area] 52 mL/min/{1.73_m2} Low >60 [facility] Comment on above: mL/min/1.73m2 CKD-EP I Creatinine Equation (2020) Hematocrit Auto (Bld) [Volum e fraction]Ordered By: Jairo Grande on 11-08-2024 Hematocrit (Bld) [Volume fraction] 39.5 % Low 40-54 [facility] Hemoglobin measurementOrdere d By: Jairo Grande on 11-08-2024 Hemoglobin (Bld) [Mass/Vol] 13.3 g/dL 13.0-16.5 [facility] Immature granulocytes/100 WB C Auto (Bld)Ordered By: Jairo Grande on 11-08-2024 Immature granulocytes/100 WBC (Bld) 0.300 % 0.0-0.9 [facility] Comment on above: IG% - Immature Granu locytes (promyelocytes, myelocytes and metamyelocytes) > 1% indicates that a LEFT SHIFT is Present. L503.7505on 11-08-2024 Natriuretic peptide B (Bld) [Mass/Vol] 487 pg/mL Normal <=900 [facility] Comment on above: Result Comment: Hear t Failure Unlikely: < 300 pg/mL Heart Failure Likely < 50 Years: > 450 pg/mL 50-75 Years: > 900 pg/mL >75 Years: > 1800 pg/mL Performed By: #### L 503.7505, L500.4050, L100.0100, L501.9520, L506.0400 ####[facility] [id number] [place], [place], [id number] Laboratory - Chemistry and C hemistry - challengeOrdered By: Jairo Grande on 11-08-2024 AST [Catalytic activity/Vol] 21 U/L <38 [facility] Lymphocytes Auto (Unsp spec) [#/Vol]Ordered By: Jairo Grande on 11-08-2024 Lymphocytes (Bld) [#/Vol] 1.69 10*3/uL 0.83-4.51 [facility] Lymphocytes/100 WBC Auto (Un sp spec)Ordered By: Jairo Grande on 11-08-2024 Lymphocytes/100 WBC (Bld) 25.1 % 19-41 [facility] MCV (mean corpuscular volume ) determinationOrdered By: Jairo Grande on 11-08-2024 MCV (RBC) [Entitic vol] 92.5 fL 80-94 [facility] Mean corpuscular hemoglobin (MCH) determinationOrdered By: Jairo Grande on 11-08-2024 MCH (RBC) [Entitic mass] 31.1 pg 27.0-32.0 [facility] Mean corpuscular hemoglobin concentration (MCHC) determinationOrdered By: Jairo Grande on 11-08-2024 MCHC (RBC) [Mass/Vol] 33.7 g/dL 32-36 [facility] Mean platelet volume determi nationOrdered By: Jairo Grande on 11-08-2024 Platelet mean volume (Bld) [Entitic vol] 9.8 fL 6.2-12.0 [facility] Monocyte percentageOrdered B y: Jairo Grande on 11-08-2024 Monocytes/100 WBC (Bld) 9.6 % 0-10 [facility] Natriuretic peptide.B prohor man N-Terminal [Mass/Vol]Ordered By: Jairo Grande on 11-08-2024 Natriuretic peptide B (Bld) [Mass/Vol] 487 pg/mL <900 [facility] Comment on above: Heart Failure Unlike ly: < 300 pg/mLHeart Failure Likely< 50 Years: > 450 pg/mL50-75 Years: > 900 pg/mL>75 Years: > 1800 pg/mL Natriuretic peptide.B prohor man N-Terminal [Mass/volume] in Serum or PlasmaOrdered By: Jairo Grande on 11-08-2024 Natriuretic peptide.B prohormone N-Terminal [Mass/Vol] 487 pg/mL <900 [facility] Comment on above: Heart Failure Unlike ly: < 300 pg/mLHeart Failure Likely< 50 Years: > 450 pg/mL50-75 Years: > 900 pg/mL>75 Years: > 1800 pg/mL Neutrophil percentageOrdered By: Jairo Grande on 11-08-2024 Neutrophils/100 WBC (Bld) 64.1 % 47-70 [facility] Nucleated red blood cell per centageOrdered By: Jairo Grande on 11-08-2024 Nucleated RBC/100 WBC (Bld) [Ratio] 0 % 0-5 [facility] Pacemaker Checkon 11-08-2024 Pacemaker Check [facility] [address] [place] [address] Pacemaker Check Date of Service: 11/08/24 1538 MR#: [id number] Acct: [id number] Name: BRIGETTE HOLGUIN Rep #: [id number] : 1950 From: Argenis Mcgee Age/Sex: 74/M Location: [facility] [place] Status: Signed Billing Codes PM Device Codes: 04629 PM Dev Prog Eval, Dual Assessment and Plan Assessment and Plan (1) Sick sinus syndrome: Status: Chronic (2) Jistg-Xwcfkdxrc-Xxsym (WPW) syndrome: Status: Chronic (3) Sinus bradycardia: Status: Chronic (4) History of permanent cardiac pacemaker placement: Status: Acute Comment: 06/2023 Plan Details Goals Barriers: Goals Decrease pain Decrease inflammation Improve ROM Barriers cervical disc herniation previous lumbar surgery 11/08/24 1539 Date Argenis Davidsonignlonny Signature: Date (if applicable) CC: Normal [facility] Platelet countOrdered By: Charlotte Grande on 11-08-2024 Platelets (Bld) [#/Vol] 229 10*3/uL 150-450 [facility] Potassium (Unsp spec) [Mass/ Vol]Ordered By: Jairo Grande on 11-08-2024 Potassium [Moles/Vol] 4.4 mmol/L 3.3-5.1 [facility] Potassium measurement (mass/ volume)Ordered By: Jairo Grande on 11-08-2024 Potassium (Unsp spec) [Mass/Vol] 4.4 mmol/L 3.3-5.1 [facility] RBC Auto (Bld) [#/Vol]Ordere d By: Jairo Grande on 11-08-2024 RBC (Bld) [#/Vol] 4.27 10*6/uL Low 4.6-6.2 [facility] Serum creatinine measurement (mass/volume)Ordered By: Jairo Grande on 11-08-2024 Creatinine [Mass/Vol] 1.42 mg/dL High 0.70-1.20 [facility] Serum globulin measurementOr dered By: Jairo Grande on 11-08-2024 Globulin (S) [Mass/Vol] 2.4 g/dL 2.2-4.2 [facility] Serum glucose measurement (m ass/volume)Ordered By: Jairo Grande on 11-08-2024 Glucose [Mass/Vol] 95 mg/dL 70-99 [facility] Serum or plasma alanine chavez otransferase (ALT) measurementOrdered By: Jairo Grande on 11-08-2024 ALT [Catalytic activity/Vol] 16 U/L <47 [facility] Serum or plasma albumin gm urement (mass/volume)Ordered By: Jairo Grande on 11-08-2024 Albumin [Mass/Vol] 4.2 g/dL 3.4-4.8 [facility] Serum or plasma albumin/glob ulin mass ratioOrdered By: Jairo Grande on 11-08-2024 Albumin/Globulin [Mass ratio] 1.7 {ratio} 0.9-2.4 [facility] Serum or plasma alkaline lynn sphatase measurementOrdered By: Jairo Grande on 11-08-2024 ALP [Catalytic activity/Vol] 78 U/L 40-129 [facility] Serum or plasma calcium gm urement (mass/volume)Ordered By: Jairo Grande on 11-08-2024 Calcium [Mass/Vol] 9.9 mg/dL 7.6-11.0 [facility] Serum or plasma urea nitroge n measurement (mass/volume)Ordered By: Jairo Grande on 11-08-2024 Urea nitrogen [Mass/Vol] 24 mg/dL High 4-19 [facility] Sodium levelOrdered By: Jairo Grande on 11-08-2024 Sodium [Moles/Vol] 143 mmol/L 133-145 [facility] T4 Free Directon 04-07-2025 T4 FREE DIRECT 1.50 ng/dL High 0.76-1.46 [facility] Comment on above: Performed By: #### L 503.7505, L500.4050, L100.0100, L501.9520, L506.0400 ####[facility] [id number] [place], [address] T4 freeOrdered By: Jairo Grande on 11-08-2024 Free T4 [Mass/Vol] 1.50 ng/dL High 0.76-1.46 [facility] TSH DL <= 0.005 mIU/L QnOrde red By: Jairo Grande on 11-08-2024 Thyroid Stimulating Hormone (TSH) 2.540 uIU/mL 0.300-4.20 0 [facility] TSH Qn 2.540 uIU/mL 0.300-4.20 0 [facility] Thyroid Stim Hormone (TSH)on 11-08-2024 TSH 2.540 uIU/mL Normal 0.300-4.20 0 [facility] Comment on above: Performed By: #### L 503.7505, L500.4050, L100.0100, L501.9520, L506.0400 ####[facility] [id number] [place], [address] Total proteinOrdered By: Suman Grande on 11-08-2024 Protein [Mass/Vol] 6.6 g/dL 5.9-8.4 [facility] White blood cell (WBC) count Ordered By: Jairo Grande on 11-08-2024 WBC (Bld) [#/Vol] 6.7 10*3/uL 4.4-11.0 [facility] Bone density reportOrdered B y: José Mcfadden on 10-21-2024 Study report Skeletal system DXA [facility] Imaging Services [address] [place], [place] [id number] Dexa Bone Density Study MR#: [id number] Acct: [id number] Name: BRIGETTE HOLGUIN Rep #: [id number] : 1950 M 74 From: Cheo Mcfadden MD PCP: Dr. Paresh Carranza MD Status: MISAEL STEPHENSON Study:Dexa Bone Density Study Date of Exam: 10/21/24 Exam# [id number] Ordering Dr: Paresh Carranza MD PROCEDURE: DEXA [...] with a moderate fracture risk. Reading Location: [facility]1 CC: Dr. 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 Paresh Carranza MD Status: [facility] CLI Study: Dexa Bone Density Study Date of Exam: 10/21/24 Exam# [id number] Ordering Dr: Paresh Carranza MD PROCEDURE: DEXA [...] with a moderate fracture risk. Reading Location: [place] [address] CC: Dr. 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 MACRO: None Normal [facility] XR Chest PA and Lateralon EXAMINATION: XR CHES T PA+LAT 2 VIEWSPRO/11/25/2023 11:29 AM CLINICAL HISTORY: [...] - 11/25/2023 EXAMINATION: XR CHEST PA+LAT 2 VIEWSPRO/11/25/2023 11:29 [...] 3. Coronary artery endovascular stent. MACRO: None [facility] Radiology Study observation (narrative) [facility] XR Chest PA and LateralOrder ed By: Rashad Alvarez on 11-25-2023 [facility] Work Phone: Basophil percentageOrdered B y: Paresh Carranza on 11-20-2023 Bilirubin [Mass/Vol] 0.90 mg/dL 0.20-1.00 [facility] Comment on above: For patients on eltr ombopag therapy, use of Dimension [place] TBIL is not recommended. Chloride [Moles/Vol] 110 mmol/L 98-107 [facility] Cholesterol [Mass/Vol] 180 mg/dL <200 [facility] Comment on above: <200 mg/dL Desirable 200-240 mg/dL Borderline >240 mg/dL High Risk Glucose [Mass/Vol] 95 mg/dL 74-106 [facility] Potassium [Moles/Vol] 4.4 mmol/L 3.5-5.1 [facility] [facility] Protein [Mass/Vol] 6.5 g/dL 6.4-8.2 [facility] Sodium [Moles/Vol] 140 mmol/L 136-145 [facility] Triglyceride [Mass/Vol] 84 mg/dL <199 [facility] Comment on above: The drugs N-Acetylcy steine and Metamizole may falsely depress this assay.Serum Triglycerides Reference Interval Normal <150 mg/dL Borderline high 150 - 199 mg/dL High 200 - 499 mg/dL Very High > or = 500 mg/dL Laboratory - Chemistry and C hemistry - challengeOrdered By: Paresh Carranza on 11-20-2023 Albumin/Globulin [Mass ratio] 1.3 {ratio} 0.9-2.4 [facility] ALP [Catalytic activity/Vol] 84 U/L 45-117 [facility] ALT [Catalytic activity/Vol] 17 U/L 16-61 [facility] Cholesterol in HDL [Mass/Vol] 53 mg/dL >40 [facility] Comment on above: The drugs N-Acetylcy steine and Metamizole may falsely depress this assay. Reference Range HDL <40 mg/dL Low HDL Cholesterol HDL >or= 60 mg/dL High HDL Cholesterol Cholesterol in LDL [Mass/Vol] 110 mg/dL 0-130 [facility] CO2 [Moles/Vol] 27.0 mmol/L 21.0-32.0 [facility] Globulin (S) [Mass/Vol] 2.8 g/dL 2.2-4.2 [facility] Urea nitrogen/Creatinine [Mass ratio] 21.9 mg/mg 10-20 [facility] No Panel InformationOrdered By: Paresh Carranza on 11-20-2023 Estimated GFR (MDRD) Amer 71 mL/min >60 [facility] Comment on above: GFR Calc Estimated GFR (MDRD) Non-Af Amer 59 mL/min >60 [facility] Comment on above: Non- GFR Calc Free Triiodothyronine (T3) pg/dL 2.5 pg/mL 2.18-3.98 [facility] VLDL Cholesterol 17 mg/dL 5-40 [facility] Serum or plasma calcium mg urement (mass/volume)Ordered By: Paresh Carranza on 11-20-2023 Calcium [Mass/Vol] 9.1 mg/dL 8.5-10.1 [facility] Serum or plasma creatinine m easurement (mass/volume)Ordered By: Paresh Carranza on 11-20-2023 Creatinine [Mass/Vol] 1.28 mg/dL 0.70-1.30 [facility] Comment on above: The validity of the calculated GFR & GFRAA in patients over 70 years has not been determined. Clinical correlation is essential. Serum or plasma thyroid stim ulating hormone (TSH) measurement (units/volume)Ordered By: Paresh Carranza on 11-20-2023 TSH Qn 4.42 uIU/mL 0.358-3.74 [facility] Serum or plasma urea nitroge n measurement (mass/volume)Ordered By: Paresh Carranza on 11-20-2023 Urea nitrogen [Mass/Vol] 28 mg/dL 7-18 [facility] Thin prep Papanicolaou smear with manual screeningOrdered By: Paresh Carranza on 11-20-2023 Thin prep Papanicolaou smear with manual screening 3.7 g/dL 3.2-5.0 [facility] Thin prep Papanicolaou smear with manual screening 18 U/L 15-37 [facility] Thin prep Papanicolaou smear with manual screening 3 5-15 [facility] Thin prep Papanicolaou smear with manual screening 1.07 ng/dL 0.76-1.46 [facility] Absolute lymphocyte countOrd ered By: Kerry Hilliard on 09-15-2023 Lymphocytes Auto (Unsp spec) [#/Vol] 1.48 10*3/uL 0.83-4.51 [facility] Automated lymphocyte count a s percentage of total leukocytesOrdered By: Kerry Hilliard on 09-15-2023 Lymphocytes/100 WBC Auto (Unsp spec) 25.4 % 19-41 [facility] Basophil percentageOrdered B y: Kerry Hilliard on 09-15-2023 Basophils/100 WBC (Bld) 0.9 % 0-1 [facility] Bilirubin [Mass/Vol] 0.60 mg/dL 0.20-1.00 [facility] Comment on above: For patients on eltr ombopag therapy, use of Dimension [place] TBIL is not recommended. Chloride [Moles/Vol] 112 mmol/L 98-107 [facility] Eosinophils/100 WBC (Bld) 1.0 % 0-5 [facility] Glucose [Mass/Vol] 91 mg/dL 74-106 [facility] Hemoglobin (Bld) [Mass/Vol] 13.5 g/dL 13.0-16.5 [facility] Monocytes/100 WBC (Bld) 11.9 % 0-10 [facility] Neutrophils (Bld) [#/Vol] 3.5 10*3/uL 2.0-7.7 [facility] Neutrophils/100 WBC (Bld) 60.6 % 47-70 [facility] Potassium [Moles/Vol] 4.3 mmol/L 3.5-5.1 [facility] Protein [Mass/Vol] 6.6 g/dL 6.4-8.2 [facility] Sodium [Moles/Vol] 144 mmol/L 136-145 [facility] WBC (Bld) [#/Vol] 5.8 10*3/uL 4.4-11.0 [facility] Determination of erythrocyte mean corpuscular volume (MCV)Ordered By: Kerry Hilliard on 09-15-2023 MCV (RBC) [Entitic vol] 91.6 fL 80-94 [facility] Erythrocyte distribution wid th ratioOrdered By: Kerry Hilliard on 09-15-2023 Erythrocyte distribution width (RBC) [Ratio] 13.5 % 11.6-14.6 [facility] Erythrocyte distribution wid th standard deviationOrdered By: Kerry Hilliard on 09-15-2023 Erythrocyte distribution width (RBC) [Entitic vol] 45.5 fL 35.1-43.9 [facility] Hematocrit Auto (Bld) [Volum e fraction]Ordered By: Kerry Hilliard on 09-15-2023 Hematocrit (Bld) [Volume fraction] 41.5 % 40-54 [facility] Immature granulocytes/100 WB C Auto (Bld)Ordered By: Kerry Hilliard on 09-15-2023 Immature granulocytes/100 WBC (Bld) 0.200 % 0.0-0.9 [facility] Comment on above: IG% - Immature Granu locytes (promyelocytes, myelocytes and metamyelocytes) > 1% indicates that a LEFT SHIFT is Present. Laboratory - Chemistry and C hemistry - challengeOrdered By: Kerry Hilliard on 09-15-2023 Albumin/Globulin [Mass ratio] 1.3 {ratio} 0.9-2.4 [facility] ALP [Catalytic activity/Vol] 84 U/L 45-117 [facility] ALT [Catalytic activity/Vol] 23 U/L 16-61 [facility] CO2 [Moles/Vol] 28.0 mmol/L 21.0-32.0 [facility] Globulin (S) [Mass/Vol] 2.9 g/dL 2.2-4.2 [facility] Natriuretic peptide B (Bld) [Mass/Vol] 27.3 pg/mL 0-100 [facility] Urea nitrogen/Creatinine [Mass ratio] 26.7 mg/mg 10-20 [facility] Laboratory - Hematology and Cell countsOrdered By: Kerry Hilliard on 09-15-2023 MCH (RBC) [Entitic mass] 29.8 pg 27.0-32.0 [facility] MCHC (RBC) [Mass/Vol] 32.5 g/dL 32-36 [facility] Nucleated RBC/100 WBC (Bld) [Ratio] 0 % 0-5 [facility] Platelet mean volume (Bld) [Entitic vol] 9.8 fL 6.2-12.0 [facility] Platelets (Bld) [#/Vol] 245 10*3/uL 150-450 [facility] No Panel InformationOrdered By: Kerry Hilliard on 09-15-2023 Estimated GFR (MDRD) Amer 69 mL/min >60 [facility] Comment on above: GFR Calc Estimated GFR (MDRD) Non-Af Amer 57 mL/min >60 [facility] Comment on above: Non- GFR Calc RBC Auto (Bld) [#/Vol]Ordere d By: Kerry Hilliard on 09-15-2023 RBC (Bld) [#/Vol] 4.53 10*6/uL 4.6-6.2 [facility] Serum or plasma calcium gm urement (mass/volume)Ordered By: Kerry Hilliard on 09-15-2023 Calcium [Mass/Vol] 9.1 mg/dL 8.5-10.1 [facility] Serum or plasma creatinine m easurement (mass/volume)Ordered By: Kerry Hilliard on 09-15-2023 Creatinine [Mass/Vol] 1.31 mg/dL 0.70-1.30 [facility] Comment on above: The validity of the calculated GFR & GFRAA in patients over 70 years has not been determined. Clinical correlation is essential. Serum or plasma urea nitroge n measurement (mass/volume)Ordered By: Kerry Hilliard on 09-15-2023 Urea nitrogen [Mass/Vol] 35 mg/dL 7-18 [facility] Thin prep Papanicolaou smear with manual screeningOrdered By: Kerry Hilliard on 09-15-2023 Thin prep Papanicolaou smear with manual screening 3.7 g/dL 3.2-5.0 [facility] Thin prep Papanicolaou smear with manual screening 15 U/L 15-37 [facility] Thin prep Papanicolaou smear with manual screening 4 5-15 [facility] ANES POSTPROC EVALon 023 ANES POSTPROC EVAL HNO ID: [id number] Author: Alan Patel MD Service: Anesthesiology Author Type: Anesthesiologist Type: Anesthesia Postprocedure Evaluation Filed: 06/20/2023 10:18 AM Note Text: POST ANESTHESIA EVALUATION NOTE : 1950 Procedure Summary Date: 06/19/23 Room / Location: [place] [address] / [place] [facility] Anesthesia Start: 0836 Anesthesia Stop: [...] June 20, 2023 TIME: 10:16 AM CSN: [id number] Normal [facility] Basic metabolic 2000 panelon 06-20-2023 Anion gap [Moles/Vol] 8 mmol/L Low 9-18 [facility] Comment on above: Order Comment: Spectoshia lowe Type: BLOOD SPECIMEN Ordering Facility: [facility] Address: [address] [place] [address] Performed By: #### 2 4321-2 #### [facility] CLIA [id number] [address] [place] [address] [place] Calcium [Mass/Vol] 9.1 mg/dL Normal 8.5-10.2 [facility] Comment on above: Order Comment: Carie lowe Type: BLOOD SPECIMEN Ordering Facility: [facility] Address: [address] [place] [address] Performed By: #### 2 4321-2 #### [facility] CLIA [id number] [address] [place] [address] [place] Chloride [Moles/Vol] 103 mmol/L Normal 97-105 [facility] Comment on above: Order Comment: Speci men Type: BLOOD SPECIMEN Ordering Facility: [facility] Address: [address] [place] [address] Performed By: #### 2 4321-2 #### [facility] CLIA [id number] [address] [place] CO2 [Moles/Vol] 27 mmol/L Normal 22-30 [facility] Comment on above: Order Comment: Speci men Type: BLOOD SPECIMEN Ordering Facility: [facility] Address: [address] [place] [address] Performed By: #### 2 4321-2 #### [facility] CLIA [id number] [address] [place] Creatinine [Mass/Vol] 1.43 mg/dL High 0.73-1.22 [facility] Comment on above: Order Comment: Speci men Type: BLOOD SPECIMEN Ordering Facility: [facility] Address: [address] [place] [address] Performed By: #### 2 4321-2 #### [facility] CLIA [id number] [address] Creatinine and Glomerular filtration rate.predicted panel (S/P/Bld) 52 mL/min/1.73m??? Low >=60 [facility] Comment on above: Order Comment: Speci men Type: BLOOD SPECIMEN Ordering Facility: [facility] Address: [address] [place] [address] Result Comment: Danay mated Glomerular Filtration Rate [...] GFR. Performed By: #### 2 4321-2 #### [facility] CLIA [id number] [address] [place] Glucose [Mass/Vol] 102 mg/dL High 74-99 [facility] Comment on above: Order Comment: Amnai men Type: BLOOD SPECIMEN Ordering Facility: [facility] Address: [address] [place] [address] Result Comment: The [place] [employer] (ADA) provides guidance for cutoff [...] Standards of Medical Care in Diabetes 2016, [place] [employer]. Diabetes Care. 2016.39(Suppl 1). Performed By: #### 2 4321-2 #### [facility] CLIA [id number] [address] [place] [address] [place] Potassium [Moles/Vol] 4.3 mmol/L Normal 3.7-5.1 [facility] Comment on above: Order Comment: Carie men Type: BLOOD SPECIMEN Ordering Facility: [facility] Address: [address] [place] [address] Performed By: #### 2 4321-2 #### [facility] CLIA [id number] [address] [place] Sodium [Moles/Vol] 138 mmol/L Normal 136-144 [facility] Comment on above: Order Comment: Speci men Type: BLOOD SPECIMEN Ordering Facility: [facility] Address: [address] [place] [address] Performed By: #### 2 4321-2 #### [facility] CLIA [id number] [address] [place] [address] [place] Urea nitrogen [Mass/Vol] 23 mg/dL Normal 9-24 [facility] Comment on above: Order Comment: Amnai men Type: BLOOD SPECIMEN Ordering Facility: [facility] Address: [address] [place] [address] Performed By: #### 2 4321-2 #### [facility] CLIA [id number] [address] CBC panel Auto (Bld)on 06-20 Erythrocyte distribution width (RBC) [Ratio] 13.3 % Normal 11.5-15.0 [facility] Comment on above: Order Comment: Speci men Type: BLOOD SPECIMEN Ordering Facility: [facility] Address: [address] [place] [address] Performed By: #### 5 8410-2 #### [facility] CLIA [id number] [address] Hematocrit (Bld) [Volume fraction] 38.7 % Low 39.0-51.0 [facility] Comment on above: Order Comment: Speci men Type: BLOOD SPECIMEN Ordering Facility: [facility] Address: [address] [place] [address] Performed By: #### 5 8410-2 #### [facility] CLIA [id number] [address] Hemoglobin (Bld) [Mass/Vol] 12.8 g/dL Low 13.0-17.0 [facility] Comment on above: Order Comment: Speci men Type: BLOOD SPECIMEN Ordering Facility: [facility] Address: [address] [place] [address] Performed By: #### 5 8410-2 #### [facility] CLIA [id number] [address] MCH (RBC) [Entitic mass] 30.7 pg Normal 26.0-34.0 [facility] Comment on above: Order Comment: Speci men Type: BLOOD SPECIMEN Ordering Facility: [facility] Address: [address] [place] [address] Performed By: #### 5 8410-2 #### [facility] CLIA [id number] [address] [place] MCHC (RBC) [Mass/Vol] 33.1 g/dL Normal 30.5-36.0 [facility] Comment on above: Order Comment: Speci men Type: BLOOD SPECIMEN Ordering Facility: [facility] Address: [address] [place] [address] Performed By: #### 5 8410-2 #### [facility] CLIA [id number] [address] MCV (RBC) [Entitic vol] 92.8 fL Normal 80.0-100.0 [facility] Comment on above: Order Comment: Speci men Type: BLOOD SPECIMEN Ordering Facility: [facility] Address: [address] [place] [address] Performed By: #### 5 8410-2 #### [facility] CLIA [id number] [address] Nucleated RBC (Bld) [#/Vol] 10*3/uL Normal <0.01 [facility] Comment on above: Order Comment: Speci men Type: BLOOD SPECIMEN Ordering Facility: [facility] Address: [address] [place] [address] Performed By: #### 5 8410-2 #### [facility] CLIA [id number] [address] [place] Platelet mean volume (Bld) [Entitic vol] 9.5 fL Normal 9.0-12.7 [facility] Comment on above: Order Comment: Speci men Type: BLOOD SPECIMEN Ordering Facility: [facility] Address: [address] [place] [address] Performed By: #### 5 8410-2 #### [facility] CLIA [id number] [address] [place] Platelets (Bld) [#/Vol] 161 10*3/uL Normal 150-400 [facility] Comment on above: Order Comment: Speci men Type: BLOOD SPECIMEN Ordering Facility: [facility] Address: [address] [place] [address] Performed By: #### 5 8410-2 #### [facility] CLIA [id number] [address] [place] RBC (Bld) [#/Vol] 4.17 10*6/uL Low 4.20-6.00 [facility] Comment on above: Order Comment: Carie lowe Type: BLOOD SPECIMEN Ordering Facility: [facility] Address: [address] [place] [address] Performed By: #### 5 8410-2 #### [facility] CLIA [id number] [address] [facility] WBC (Bld) [#/Vol] 14.01 10*3/uL High 3.70-11.00 [facility] Comment on above: Order Comment: Carie lowe Type: BLOOD SPECIMEN Ordering Facility: [facility] Address: [address] [place] [address] Performed By: #### 5 8410-2 #### [facility] CLIA [id number] [address] CNDSon 06-20-2023 [facility] HNO ID: [id number] Author: Jazmine Zepeda APRN.HOIST WORKER Service: Electrophysiology Author Type: Nurse Practitioner Type: Discharge Summary Filed: 06/20/2023 10:44 AM Note Text: ----- Attestation signed by Viktoriya Marcial MD at 06/20/2023 1:23 PM ----- DISCHARGE SUMMARY PATIENT NAME: Brigette Rojasnchard Code Status: Prior Highest Readmission Risk Score: [...] check in 1 week, he follows in [place] with Dr. Rooney, and will need a [...] heavy bl (more content not included)... Normal [facility] No Panel Informationon 06-20 BLANK _ [facility] Implant Date 06/19/2023 [facility] CHECKon AMS Fallback Rate (bpm) 70 {beats}/min [facility] AV Delay Adaptive Paced Minimum (ms) 200 ms [facility] AV Delay Adaptive Rate Maximum (bpm) 130 {beats}/min [facility] AV Delay Adaptive Rate Minimum (bpm) 90 {beats}/min [facility] AV Delay Adaptive Sensed Minimum (ms) 180 ms [facility] AV Delay Adaptive Status DISABLED [facility] Battery Voltage (volts) 3.02 V [facility] Leon RA Pacing Amplitude (volts) 2.0 V [facility] Leon RA Pacing Polarity BI [facility] Leon RA Pacing Pulse Width (ms) 0.5 ms [facility] Leon RA Sensing Blanking Period (ms) 150 ms [facility] Leon RA Sensing Polarity BI [facility] Leon RA Sensing Refractory Period (ms) 190 ms [facility] Leon RV Pacing Amplitude (volts) 3.25 V [facility] Leon RV Pacing Polarity BI [facility] Leon RV Pacing Pulse Width (ms) 0.5 ms [facility] Leon RV Sensing Amplitude (mvolts) 2.0 mV [facility] Leon RV Sensing Blanking Period (ms) 44 ms [facility] Leon RV Sensing Polarity BI [facility] Leon RV Sensing Refractory Period (ms) 250 ms [facility] Hysteresis Rate (bpm) Off [facility] Implant Date 01/04/2013 [facility] Lead1 Mfg SJM [facility] Lead2 Mfg SJM [facility] Location RV [facility] Location RA [facility] Lower Rate (bpm) 60 {beats}/min [facility] Max Sensor Rate (bmp) 130 {beats}/min [facility] Model 2272 Assurity MRI [facility] Model 2088TC/52 [facility] Model 2088TC Tendril STS O ptim IS [facility] Pacing Mode DDDR [facility] PM-Device Mfg STJ [facility] PM-Percent Pacing (A) 6.1 % [facility] PM-Percent Pacing (V) 0.01 % [facility] PM-PMT Intervention Atrial Pace [facility] PM-PVC Intervention Atrial Pace [facility] PM-Rate Modulation Acceleration Reaction Fast [facility] PM-Rate Modulation Deceleration Medium [facility] PM-Rate Modulation [place] Auto (+0) [facility] PM-Rate Modulation Threshold Auto (+0.0) [facility] Rhythm NSR at 62 BPM. [facility] Serial Number [id number] [facility] Serial Number [id number] [facility] Serial Number [id number] [facility] Thresh RA Capture Amplitude (volts) 0.5 V [facility] Thresh RA Capture Duration (ms) 0.5 ms [facility] Thresh RA Sensing Amplitude (mvolts) 3.4 mV [facility] Thresh RV Capture Amplitude (volts) 0.5 V [facility] Thresh RV Capture Duration (ms) 0.5 ms [facility] Thresh RV Sensing Amplitude (mvolts) 12.0 mV [facility] Tracking Rate (bpm) 130 {beats}/min [facility] XR CHEST 2V FRONTAL/LATon XR CHEST [...] IMPRESSION: Trace bilateral pleural effusions. No pneumothorax. Stock Car Driver: PSCB Transcribe Date/Time: Jun 20 2023 10:02A Dictated by : BRITTNEY WALDEN MD This examination was interpreted and the report reviewed and electronically signed by: BRITTNEY WALDEN MD on Jun 20 2023 10:03AM EST [id number] Normal [facility] ALLIED HEALTHon 06-19-2023 ALLIED HEALTH HNO ID: [id number] Author: Lucrecia Viramontes RT(R) Service: Radiology Author [...] PERIPHERAL IV DATA: Not applicable SIGNED BY: Lucrecia Viramontes, (R) June 19, 2023 2:40 PM Normal [facility] ANES PRE-OPon 06-19-2023 ANES PRE-OP HNO ID: [id number] Author: Nic Chu MD Service: Anesthesiology Author Type: Physician Type: Anesthesia Preprocedure Evaluation Filed: 06/19/2023 8:41 AM Note Text: ANESTHESIOLOGY DAY OF SURGERY NOTE : 1950 Procedure Information Anesthesia Start Date/Time: 06/19/23835 Procedure: REMOVAL ELECTRODE(S) IMPLANTABLE DEFIBRILLATOR TRANSVENOUS EXTRACTION (Right) - SJM, right sided, RV extraction/replacement, PPG replacement. [place] covering hANDp on 06/16 by Lonnie BRADLEY PACU/CV[place] [facility] Surgeons: Viktoriya Marcial MD Estimated body mass index is 23.18 kg/m? as calculated from the following: Height as of 06/16/23: 175.3 cm (5' 9). Weight as of 06/16/23: 71.2 kg (157 [...] June 19, 2023 TIME: 8:41 AM CSN: [id number] Normal [facility] Basic metabolic 2000 panelon 06-19-2023 Anion gap [Moles/Vol] 9 mmol/L Normal 9-18 [facility] Comment on above: Order Comment: Carie lowe Type: BLOOD SPECIMEN Ordering Facility: [facility] Address: [address] [place] [address] Performed By: #### 2 4321-2 #### [facility] CLIA [id number] [address] [place] [address] [place] Calcium [Mass/Vol] 9.0 mg/dL Normal 8.5-10.2 [facility] Comment on above: Order Comment: Carie lowe Type: BLOOD SPECIMEN Ordering Facility: [facility] Address: [address] [place] [address] Performed By: #### 2 4321-2 #### [facility] CLIA [id number] [address] [place] [address] [place] Chloride [Moles/Vol] 105 mmol/L Normal 97-105 [facility] Comment on above: Order Comment: Speci men Type: BLOOD SPECIMEN Ordering Facility: [facility] Address: [address] [place] [address] Performed By: #### 2 4321-2 #### [facility] CLIA [id number] [address] [place] CO2 [Moles/Vol] 27 mmol/L Normal 22-30 [facility] Comment on above: Order Comment: Speci men Type: BLOOD SPECIMEN Ordering Facility: [facility] Address: [address] [place] [address] Performed By: #### 2 4321-2 #### [facility] CLIA [id number] [address] [place] Creatinine [Mass/Vol] 1.24 mg/dL High 0.73-1.22 [facility] Comment on above: Order Comment: Speci men Type: BLOOD SPECIMEN Ordering Facility: [facility] Address: [address] [place] [address] Performed By: #### 2 4321-2 #### [facility] CLIA [id number] [address] Creatinine and Glomerular filtration rate.predicted panel (S/P/Bld) 62 mL/min/1.73m??? Normal >=60 [facility] Comment on above: Order Comment: Speci men Type: BLOOD SPECIMEN Ordering Facility: [facility] Address: [address] [place] [address] Result Comment: Danay mated Glomerular Filtration Rate [...] GFR. Performed By: #### 2 4321-2 #### [facility] CLIA [id number] [address] [place] Glucose [Mass/Vol] 94 mg/dL Normal 74-99 [facility] Comment on above: Order Comment: Carie men Type: BLOOD SPECIMEN Ordering Facility: [facility] Address: [address] [place] [address] Result Comment: The [place] [employer] Association (ADA) provides guidance for cutoff [...] Standards of Medical Care in Diabetes 2016, [place] [employer]. Diabetes Care. 2016.39(Suppl 1). Performed By: #### 2 4321-2 #### [facility] CLIA [id number] 1 [place] [address] [place] Potassium [Moles/Vol] 4.3 mmol/L Normal 3.7-5.1 [facility] Comment on above: Order Comment: Carie lowe Type: BLOOD SPECIMEN Ordering Facility: [facility] Address: [address] [place] [address] Performed By: #### 2 4321-2 #### [facility] CLIA [id number] 1 [place] [address] [place] Sodium [Moles/Vol] 141 mmol/L Normal 136-144 [facility] Comment on above: Order Comment: Amnai men Type: BLOOD SPECIMEN Ordering Facility: [facility] Address: [address] [place] [address] Performed By: #### 2 4321-2 #### [facility] CLIA [id number] 1 [place] [address] [place] Urea nitrogen [Mass/Vol] 22 mg/dL Normal 9-24 [facility] Comment on above: Order Comment: Amnai men Type: BLOOD SPECIMEN Ordering Facility: [facility] Address: [address] [place] [address] Performed By: #### 2 4321-2 #### [facility] CLIA [id number] [address] CBC panel Auto (Bld)on 06-19 Erythrocyte distribution width (RBC) [Ratio] 13.2 % Normal 11.5-15.0 [facility] Comment on above: Order Comment: Speci men Type: BLOOD SPECIMEN Ordering Facility: [facility] Address: [address] [place] [address] Performed By: #### 5 8410-2 #### [facility] CLIA [id number] [address] Hematocrit (Bld) [Volume fraction] 41.4 % Normal 39.0-51.0 [facility] Comment on above: Order Comment: Speci men Type: BLOOD SPECIMEN Ordering Facility: [facility] Address: [address] [place] [address] Performed By: #### 5 8410-2 #### [facility] CLIA [id number] [address] Hemoglobin (Bld) [Mass/Vol] 14.0 g/dL Normal 13.0-17.0 [facility] Comment on above: Order Comment: Speci men Type: BLOOD SPECIMEN Ordering Facility: [facility] Address: [address] [place] [address] Performed By: #### 5 8410-2 #### [facility] CLIA [id number] [address] MCH (RBC) [Entitic mass] 31.7 pg Normal 26.0-34.0 [facility] Comment on above: Order Comment: Speci men Type: BLOOD SPECIMEN Ordering Facility: [facility] Address: [address] [place] [address] Performed By: #### 5 8410-2 #### [facility] CLIA [id number] [address] [place] MCHC (RBC) [Mass/Vol] 33.8 g/dL Normal 30.5-36.0 [facility] Comment on above: Order Comment: Speci men Type: BLOOD SPECIMEN Ordering Facility: [facility] Address: [address] [place] [address] Performed By: #### 5 8410-2 #### [facility] CLIA [id number] [address] [place] MCV (RBC) [Entitic vol] 93.9 fL Normal 80.0-100.0 [facility] Comment on above: Order Comment: Speci men Type: BLOOD SPECIMEN Ordering Facility: [facility] Address: [address] [place] [address] Performed By: #### 5 8410-2 #### [facility] CLIA [id number] [address] [place] Nucleated RBC (Bld) [#/Vol] 10*3/uL Normal <0.01 [facility] Comment on above: Order Comment: Speci men Type: BLOOD SPECIMEN Ordering Facility: [facility] Address: [address] [place] [address] Performed By: #### 5 8410-2 #### [facility] CLIA [id number] [address] [place] Platelet mean volume (Bld) [Entitic vol] 9.4 fL Normal 9.0-12.7 [facility] Comment on above: Order Comment: Speci men Type: BLOOD SPECIMEN Ordering Facility: [facility] Address: [address] [place] [address] Performed By: #### 5 8410-2 #### [facility] CLIA [id number] [address] [place] Platelets (Bld) [#/Vol] 200 10*3/uL Normal 150-400 [facility] Comment on above: Order Comment: Speci men Type: BLOOD SPECIMEN Ordering Facility: [facility] Address: [address] [place] [address] Performed By: #### 5 8410-2 #### [facility] CLIA [id number] [address] [place] RBC (Bld) [#/Vol] 4.41 10*6/uL Normal 4.20-6.00 [facility] Comment on above: Order Comment: Speci men Type: BLOOD SPECIMEN Ordering Facility: [facility] Address: [address] [place] [address] Performed By: #### 5 8410-2 #### [facility] CLIA [id number] [address] WBC (Bld) [#/Vol] 5.17 10*3/uL Normal 3.70-11.00 [facility] Comment on above: Order Comment: Speci men Type: BLOOD SPECIMEN Ordering Facility: [facility] Address: [address] [place] [address] Performed By: #### 5 8410-2 #### [facility] CLIA [id number] [address] [place] BLOOD TYPEon 023 ABO A Normal [facility] Comment on above: Order Comment: Speci men Type: BLOOD SPECIMEN Ordering Facility: [facility] Address: [address] [place] [address] Performed By: #### C ONABO #### [facility] CLIA [id number] [address] Rh Nom (Bld) Negative Normal [facility] Comment on above: Order Comment: Speci men Type: BLOOD SPECIMEN Ordering Facility: [facility] Address: [address] [place] [address] Performed By: #### C ONABO #### [facility] CLIA [id number] [address] HISTORY PHYSICALon HISTORY PHYSICAL HNO ID: [id number] Author: Viktoriya Marcial MD Service: Electrophysiology Author [...] June 19, 2023 TIME: 8:30 AM Normal [facility] TYPE + SCREENon 06-19-2023 ABO A Normal [facility] Comment on above: Order Comment: Speci men Type: BLOOD SPECIMENOrdering Facility: [facility] Address: [address] [place] [address] Performed By: #### T SCR ####[facility] [id number] [address] HISTORICAL AB SCR STATUS Negative [facility] Comment on above: Order Comment: Speci men Type: BLOOD SPECIMENOrdering Facility: [facility] Address: [address] [place] [address] Performed By: #### T SCR ####[facility]CL[facility] [id number] [address] Rh Nom (Bld) Negative [facility] Comment on above: Order Comment: Speci men Type: BLOOD SPECIMENOrdering Facility: [facility] Address: [address] [place] [address] Performed By: #### T SCR ####[facility]CL[facility] [id number] [address] TYPE AND SCREEN EXPIRATION 06/22/2023 23:59 Normal [facility] Comment on above: Order Comment: Speci men Type: BLOOD SPECIMENOrdering Facility: [facility] Address: [address] [place] [address] Performed By: #### T SCR ####[facility]ANKIA [id number] [place] [address] [place] XR CHEST 1V FRONTALon 2022 XR CHEST [...] lead in right ventricle stable position 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 Right shoulder replacement. Lungs and pleura: Clear. No infiltrates or effusions. Cardiomediastinal silhouette: Normal cardiomediastinal silhouette. Other: No significant additional findings. IMPRESSION: No acute radiographic abnormality. Stock Car Driver: YOVANA Transcribe Date/Time: Jun 19 2023 2:59P Dictated by : BRITTNEY WALDEN MD This examination was interpreted and the report reviewed and electronically signed by: BRITTNEY WALDEN MD on Jun 19 2023 3:01PM EST [id number] Normal [facility] CNOVon 06-16-2023 CNOV Office Visit (BREONNA PADILLA) ----- BRIGETTE HOLGUIN ([id number]) 1950 M Date Time Provider Department 06/16/23 11:00 AM LONNIE MERCER During your visit today, we recorded the following information about you: Temperature Blood pressure Weight Height 67 degrees 148/74 71.2 kg 1.753 m Shahida Lugo MA 06/16/2023 10:43 AM Signed No cardiac complaints today. JOHN Escobar Drew, APRN.HOIST WORKER 06/16/2023 12:20 PM Signed [facility] Electrophysiology PRIMARY CARE PHYSICIAN: Paresh Carranza [address] [facility] [address] [place] [address] CHIEF COMPLAINT: History and physical update prior [...] dysfunction, status post dual-chamber pacemaker implantation at [facility] in 2012. Device now is approaching MADDY. [...] general anesthesia, CTS backup, overnight stay in [facility], risk/benefits, and follow-up. Benefit being replacement of [...] WHEN PFRMD 09/15/2009 Colonoscopy PACEMAKER IMPLANT 12/03/2012 [facility] PACEMAKER IMPLANT 01/04/2013 re-implanted due to infection [...] coroted art (more content not included)... Normal [facility] Basophil percentageOrdered B y: Thierry Pepe on 06-12-2023 Chloride [Moles/Vol] 107 mmol/L 98-107 [facility] Glucose [Mass/Vol] 96 mg/dL 74-106 [facility] Potassium [Moles/Vol] 4.0 mmol/L 3.5-5.1 [facility] Sodium [Moles/Vol] 141 mmol/L 136-145 [facility] WBC (Bld) [#/Vol] 5.8 10*3/uL 4.4-11.0 [facility] Blood erythrocytes count (nu mber/volume)Ordered By: Thierry Pepe on 06-12-2023 RBC (Bld) [#/Vol] 4.64 10*6/uL 4.6-6.2 [facility] Blood hemoglobin measurement (mass/volume)Ordered By: Thierry Pepe on 06-12-2023 Hemoglobin (Bld) [Mass/Vol] 14.7 g/dL 13.0-16.5 [facility] Blood platelet mean volumeOr dered By: Thierry Pepe on 06-12-2023 Platelet mean volume (Bld) [Entitic vol] 9.5 fL 6.2-12.0 [facility] Determination of erythrocyte mean corpuscular volume (MCV)Ordered By: Thierry Pepe on 06-12-2023 MCV (RBC) [Entitic vol] 95.9 fL 80-94 [facility] Hematocrit Auto (Bld) [Volum e fraction]Ordered By: Thierry Pepe on 06-12-2023 Hematocrit (Bld) [Volume fraction] 44.5 % 40-54 [facility] Laboratory - Chemistry and C hemistry - challengeOrdered By: Thierry Pepe on 06-12-2023 CO2 [Moles/Vol] 30.0 mmol/L 21.0-32.0 [facility] Urea nitrogen/Creatinine [Mass ratio] 15.9 mg/mg 10-20 [facility] - Hematology and Cell countsOrdered By: Thierry Pepe on 06-12-2023 Erythrocyte distribution width (RBC) [Entitic vol] 47.9 fL 35.1-43.9 [facility] Erythrocyte distribution width (RBC) [Ratio] 13.5 % 11.6-14.6 [facility] MCH (RBC) [Entitic mass] 31.7 pg 27.0-32.0 [facility] MCHC Auto (RBC) [Mass/Vol]Or dered By: Thierry Pepe on 06-12-2023 MCHC (RBC) [Mass/Vol] 33.0 g/dL 32-36 [facility] No Panel InformationOrdered By: Thierry Pepe on 06-12-2023 Estimated GFR (MDRD) Amer 72 mL/min >60 [facility] Comment on above: GFR Calc Estimated GFR (MDRD) Non-Af Amer 60 mL/min >60 [facility] Comment on above: Non- GFR Calc No Panel InformationOrdered By: Kamaljit Ingram on 06-12-2023 Thyroid Stimulating Hormone (TSH) 3.00 uIU/mL 0.358-3.74 [facility] Platelets bldOrdered By: Jose Roberto Pepe on 06-12-2023 Platelets (Bld) [#/Vol] 216 10*3/uL 150-450 [facility] Serum or plasma calcium gm urement (mass/volume)Ordered By: Thierry Pepe on 06-12-2023 Calcium [Mass/Vol] 9.2 mg/dL 8.5-10.1 [facility] Serum or plasma creatinine m easurement (mass/volume)Ordered By: Thierry Pepe on 06-12-2023 Creatinine [Mass/Vol] 1.26 mg/dL 0.70-1.30 [facility] Comment on above: The validity of the calculated GFR & GFRAA in patients over 70 years has not been determined. Clinical correlation is essential. Serum or plasma urea nitroge n measurement (mass/volume)Ordered By: Thierry Pepe on 06-12-2023 Urea nitrogen [Mass/Vol] 20 mg/dL 7-18 [facility] Thin prep Papanicolaou smear with manual screeningOrdered By: Thierry Pepe on 06-12-2023 Thin prep Papanicolaou smear with manual screening 4 5-15 [facility] Laboratory - Chemistry and C hemistry - challengeOrdered By: Paresh Carranza on 05-19-2023 Free T4 [Mass/Vol] 0.98 ng/dL 0.76-1.46 [facility] No Panel InformationOrdered By: Paresh Carranza on 05-19-2023 Free Triiodothyronine (T3) pg/dL 2.4 pg/mL 2.18-3.98 [facility] Thyroid Stimulating Hormone (TSH) 3.00 uIU/mL 0.358-3.74 [facility] CNPNon 05-05-2023 CNPN Telephone (AGCARDPOB ) ----- BRIGETTE HOLGUIN ([id number]) 1950 M Date Time Provider Department 05/05/23 VIKTORIYA MARCIALHAGCARDPOIsaac During your visit today, we recorded the following information about you: Jr Smith 05/05/2023 10:44 AM Signed Patient is scheduled for an RV extraction/replacement on 06/[address] Marcial. The hospital will call the day before between 2-5pm with your arrival time. You should not eat or drink after midnight the day before the procedure. You will need a entry driver operator when released from the hospital and you will stay overnight for observation. You should continue to take medications as prescribed the morning of the procedure with just a sip of water unless otherwise instructed. HANDP update on 06/16 at 11am with Lonnie Mercer [address] [facility] [address] [place] [address] Spoke with Brigette Holguin on May 05, [...] Encounter Status:Closed by JR SMITH on 05/05/23 [facility] Yary 04-23-2023 CNOV Office Visit (BREONNA PADILLA) ----- BRIGETTE HOLGUIN ([id number]) 1950 M Date Time Provider Department 04/23/23 11:00 AM VIKTORIYA MARCIALHAGCARDPOB During your visit today, we recorded the following information about you: Pulse Blood pressure Weight Height 60/minute 124/70 70.3 kg 1.753 m Adriane Cuellar LPN 04/23/2023 10:54 AM Signed Patient denies any cardiac complaints or symptoms. LINDA Arevalo Sergey Aleksandrovich, MD 04/23/2023 11:57 AM Signed [facility] [place] [facility] SECTION OF CARDIAC PACING and ELECTROPHYSIOLOGY OUTPATIENT VISIT DATE April 23, 2023 OUTPATIENT VISIT TYPE NEW PRIMARY CARE PHYSICIAN: Paresh Carranza [address] [place] [address] HISTORY OF PRESENT ILLNESS: 72-year-old male with history of essential hypertension, coronary disease, status post remote PCI, paroxysmal atrial fibrillation, on rate control strategy, not anticoagulated due to severe bruising, sinus node dysfunction, status post dual-chamber pacemaker implantation at [facility] in 2012. Device now is approaching MADDY. [...] Asthma with chronic obstructive pulmonary disease (COPD) ([facility]) 03/01/2015 Atrial fibrillation ([facility]) 09/22/2012 Benign hypertension 2015 CAD (coronary artery disease) Diverticulosis of colon (without mention of hemorrhage) Hemiplegia, nondominant side S/P CVA (cerebrovascular accident) 08/07/2012 HTN (hypertension) Hypercholesterolemia Hyperlipidemia LDL goal <100 2015 Presence of cardiac pacemaker 03/01/2015 Spinal stenosis of lumbar region without neurogenic claudication 03/01/2015 Stroke ([facility]) 08/07/2012 right posterior frontal lobe, left hand [...] Size: Regular Adult) Pulse 60 Ht 5' 9 (1.753 m) Wt 155 lb (70.3 k (more content not included)... Normal [facility] Absolute lymphocyte countOrd ered By: Uma Israel on 03-12-2023 Lymphocytes Auto (Unsp spec) [#/Vol] 1.57 10*3/uL 0.83-4.51 [facility] Basophil percentageOrdered B y: Uma Israel on 03-12-2023 Basophils/100 WBC (Bld) 0.9 % 0-1 [facility] Eosinophils/100 WBC (Bld) 1.2 % 0-5 [facility] Neutrophils (Bld) [#/Vol] 3.4 10*3/uL 2.0-7.7 [facility] Neutrophils/100 WBC (Bld) 59.9 % 47-70 [facility] WBC (Bld) [#/Vol] 5.7 10*3/uL 4.4-11.0 [facility] Blood erythrocytes count (nu mber/volume)Ordered By: Uma Israel on 03-12-2023 RBC (Bld) [#/Vol] 4.56 10*6/uL 4.6-6.2 [facility] Blood hemoglobin measurement (mass/volume)Ordered By: Uma Israel on 03-12-2023 Hemoglobin (Bld) [Mass/Vol] 14.1 g/dL 13.0-16.5 [facility] Blood lymphocytes/100 leukoc ytesOrdered By: Uma Israel on 03-12-2023 Lymphocytes/100 WBC (Bld) 27.7 % 19-41 [facility] Blood monocytes/100 leukocyt esOrdered By: Uma Israel on 03-12-2023 Monocytes/100 WBC (Bld) 10.1 % 0-10 [facility] Blood platelet mean volumeOr dered By: Uma Israel on 03-12-2023 Platelet mean volume (Bld) [Entitic vol] 9.9 fL 6.2-12.0 [facility] Determination of erythrocyte mean corpuscular volume (MCV)Ordered By: Uma Israel on 03-12-2023 MCV (RBC) [Entitic vol] 93.4 fL 80-94 [facility] Erythrocyte sedimentation ra teOrdered By: Uma Israel on 03-12-2023 ESR (Bld) [Velocity] 5 mm/h 0-20 [facility] Hematocrit Auto (Bld) [Volum e fraction]Ordered By: Uam Israel on 03-12-2023 Hematocrit (Bld) [Volume fraction] 42.6 % 40-54 [facility] Laboratory - Hematology and Cell countsOrdered By: Uma Israel on 03-12-2023 Erythrocyte distribution width (RBC) [Entitic vol] 51.8 fL 35.1-43.9 [facility] Erythrocyte distribution width (RBC) [Ratio] 15.0 % 11.6-14.6 [facility] Immature granulocytes/100 WBC (Bld) 0.200 % 0.0-0.9 [facility] Comment on above: IG% - Immature Granu locytes (promyelocytes, myelocytes and metamyelocytes) > 1% indicates that a LEFT SHIFT is Present. MCH (RBC) [Entitic mass] 30.9 pg 27.0-32.0 [facility] Nucleated RBC/100 WBC (Bld) [Ratio] 0 % 0-5 [facility] MCHC Auto (RBC) [Mass/Vol]Or dered By: Uma Israel on 03-12-2023 MCHC (RBC) [Mass/Vol] 33.1 g/dL 32-36 [facility] Platelets bldOrdered By: Alfonso Israel on 03-12-2023 Platelets (Bld) [#/Vol] 215 10*3/uL 150-450 [facility] Serum or plasma C reactive p rotein measurement (mass/volume)Ordered By: Uma Israel on 03-12-2023 CRP [Mass/Vol] mg/L 0.0-3.0 [facility] Comment on above: C-Reactive Protein ( CRP) provides useful information for thediagnosis, therapy and monitoring of inflammatory processesand associated diseases. For the evaluation of Relative Riskfor Cardiovascular Disease, a High Sensitivity CRP (HSCRP)should be ordered. Basophil percentageOrdered B y: Dr. Carranza on 11-18-2022 Chloride [Moles/Vol] 107 mmol/L 98-107 [facility] Glucose [Mass/Vol] 101 mg/dL 74-106 [facility] Comment on above: Fasting Glucose resu lt from 100 to 125 mg/dL suggests IMPAIRED HOMEOSTASIS per A.D.A. criteria. Potassium [Moles/Vol] 5.2 mmol/L 3.5-5.1 [facility] Sodium [Moles/Vol] 137 mmol/L 136-145 [facility] Laboratory - Chemistry and C hemistry - challengeOrdered By: Dr. Carranza on 11-18-2022 CO2 [Moles/Vol] 27.0 mmol/L 21.0-32.0 [facility] Free T4 [Mass/Vol] 0.97 ng/dL 0.76-1.46 [facility] Urea nitrogen/Creatinine [Mass ratio] 16.0 mg/mg 10-20 [facility] No Panel InformationOrdered By: Dr. Carranza on 11-18-2022 Estimated GFR (MDRD) Amer 59 mL/min >60 [facility] Comment on above: GFR Calc Estimated GFR (MDRD) Non-Af Amer 49 mL/min >60 [facility] Comment on above: Non- GFR Calc Free Triiodothyronine (T3) pg/dL 1.9 pg/mL 2.18-3.98 [facility] Thyroid Stimulating Hormone (TSH) 8.31 uIU/mL 0.358-3.74 [facility] Serum or plasma calcium gm urement (mass/volume)Ordered By: Dr. Carranza on 11-18-2022 Calcium [Mass/Vol] 9.0 mg/dL 8.5-10.1 [facility] Serum or plasma creatinine m easurement (mass/volume)Ordered By: Dr. Carranza on 11-18-2022 Creatinine [Mass/Vol] 1.50 mg/dL 0.70-1.30 [facility] Comment on above: The validity of the calculated GFR & GFRAA in patients over 70 years has not been determined. Clinical correlation is essential. Serum or plasma urea nitroge n measurement (mass/volume)Ordered By: Dr. Carranza on 11-18-2022 Urea nitrogen [Mass/Vol] 24 mg/dL 7-18 [facility] Thin prep Papanicolaou smear with manual screeningOrdered By: Dr. Carranza on 11-18-2022 Thin prep Papanicolaou smear with manual screening 3 5-15 [facility] No Panel InformationOrdered By: Jairo Grande on 10-03-2022 Thyroid Stimulating Hormone (TSH) 3.13 uIU/mL 0.358-3.74 [facility] Basophil percentageOrdered B y: Jairo Grande on 09-09-2022 Bilirubin [Mass/Vol] 0.40 mg/dL 0.20-1.00 [facility] Comment on above: For patients on eltr ombopag therapy, use of Dimension [place] TBIL is not recommended. Chloride [Moles/Vol] 111 mmol/L 98-107 [facility] Glucose [Mass/Vol] 88 mg/dL 74-106 [facility] Potassium [Moles/Vol] 5.0 mmol/L 3.5-5.1 [facility] Protein [Mass/Vol] 6.9 g/dL 6.4-8.2 [facility] Sodium [Moles/Vol] 144 mmol/L 136-145 [facility] Direct bilirubinOrdered By: Jairo Grande on 09-09-2022 Bilirubin.direct [Mass/Vol] 0.11 mg/dL 0.00-0.30 [facility] Laboratory - Chemistry and C hemistry - challengeOrdered By: Jairo Grnade on 09-09-2022 ALP [Catalytic activity/Vol] 76 U/L 45-117 [facility] ALT [Catalytic activity/Vol] 21 U/L 16-61 [facility] CO2 [Moles/Vol] 28.0 mmol/L 21.0-32.0 [facility] Free T4 [Mass/Vol] 1.07 ng/dL 0.76-1.46 [facility] Globulin (S) [Mass/Vol] 2.9 g/dL 2.2-4.2 [facility] Magnesium [Mass/Vol] 2.3 mg/dL 1.6-2.6 [facility] Urea nitrogen/Creatinine [Mass ratio] 20.4 mg/mg 10-20 [facility] No Panel InformationOrdered By: Jairo Grande on 09-09-2022 Estimated GFR (MDRD) Amer 66 mL/min >60 [facility] Comment on above: GFR Calc Estimated GFR (MDRD) Non-Af Amer 54 mL/min >60 [facility] Comment on above: Non- GFR Calc Thyroid Stimulating Hormone (TSH) 6.62 uIU/mL 0.358-3.74 [facility] Serum or plasma albumin gm urement (mass/volume)Ordered By: Jairo Grande on 09-09-2022 Albumin [Mass/Vol] 4.0 g/dL 3.2-5.0 [facility] Serum or plasma calcium gm urement (mass/volume)Ordered By: Jairo Grande on 09-09-2022 Calcium [Mass/Vol] 9.2 mg/dL 8.5-10.1 [facility] Serum or plasma creatinine m easurement (mass/volume)Ordered By: Jairo Grande on 09-09-2022 Creatinine [Mass/Vol] 1.37 mg/dL 0.70-1.30 [facility] Comment on above: The validity of the calculated GFR & GFRAA in patients over 70 years has not been determined. Clinical correlation is essential. Serum or plasma urea nitroge n measurement (mass/volume)Ordered By: Jairo Grande on 09-09-2022 Urea nitrogen [Mass/Vol] 28 mg/dL 7-18 [facility] Thin prep Papanicolaou smear with manual screeningOrdered By: Jairo Grande on 09-09-2022 Thin prep Papanicolaou smear with manual screening 23 U/L 15-37 [facility] Thin prep Papanicolaou smear with manual screening 5 5-15 [facility] Laboratory - Chemistry and C hemistry - challengeon 05-20-2022 Cobalamin (Vitamin B12) [Mass/Vol] 191 pg/mL 211-911 [facility] Work Phone: Basophil percentageon 2021 Chloride [Moles/Vol] 106 mmol/L 98-107 [facility] Work Phone: Glucose [Mass/Vol] 86 mg/dL 74-106 [facility] Work Phone: [phone] Potassium [Moles/Vol] 4.8 mmol/L 3.5-5.1 [facility] Work Phone: Sodium [Moles/Vol] 138 mmol/L 136-145 [facility] Work Phone: [phone] Laboratory - Chemistry and C hemistry - challengeon 01-31-2022 CO2 [Moles/Vol] 28.0 mmol/L 21.0-32.0 [facility] Work Phone: Urea nitrogen/Creatinine [Mass ratio] 14.3 mg/mg 10-20 [facility] Work Phone: No Panel Informationon 01-31 Estimated GFR (MDRD) Amer 68 mL/min >60 [facility] Work Phone: Comment on above: GFR Calc Estimated GFR (MDRD) Non-Af Amer 56 mL/min >60 [facility] Work Phone: Comment on above: Non- GFR Calc Serum or plasma calcium gm urement (mass/volume)on 01-31-2022 Calcium [Mass/Vol] 9.8 mg/dL 8.5-10.1 [facility] Work Phone: [phone] Serum or plasma creatinine m easurement (mass/volume)on 01-31-2022 Creatinine [Mass/Vol] 1.33 mg/dL 0.70-1.30 [facility] Work Phone: Comment on above: The validity of the calculated GFR & GFRAA in patients over 70 years has not been determined. Clinical correlation is essential. Serum or plasma urea nitroge n measurement (mass/volume)on 01-31-2022 Urea nitrogen [Mass/Vol] 19 mg/dL 7-18 [facility] Work Phone: Thin prep Papanicolaou smear with manual screeningon 01-31-2022 Thin prep Papanicolaou smear with manual screening 4 5-15 [facility] Work Phone: Laboratory - Microbiology an d Antimicrobial susceptibilityon 01-09-2022 SARS-CoV-2 (COVID-19) RNA ALESHA+probe Ql (Unsp spec) Detected Not Detect [facility] Work Phone: Comment on above: Normal Reference Ran ge: Not DetectedMethod:(RT-PCR) real-time reverse transcriptase PCRLuminex JEROD Instrument*The Food and Drug Administration (FDA) has issued an Emergency Use Authorization (EAU) for the Volvant SARS-CoV-2 Assay for the rapid detection of [...] Vitamin B12 Level > 2000 pg/mL 211-911 [facility] Work Phone: Basophil percentageon 2021 Bilirubin [Mass/Vol] 0.60 mg/dL 0.20-1.00 [facility] Work Phone: [phone] Comment on above: For patients on eltr ombopag therapy, use of Dimension [place] TBIL is not recommended. Cholesterol [Mass/Vol] 117 mg/dL <200 [facility] Work Phone: [phone] Comment on above: <200 mg/dL Desirable 200-240 mg/dL Borderline >240 mg/dL High Risk Protein [Mass/Vol] 6.8 g/dL 6.4-8.2 [facility] Work Phone: [phone] Triglyceride [Mass/Vol] 53 mg/dL <199 [facility] Work Phone: [phone] Comment on above: The drugs N-Acetylcy steine and Metamizole may falsely depress this assay.Serum Triglycerides Reference Interval Normal <150 mg/dL Borderline high 150 - 199 mg/dL High 200 - 499 mg/dL Very High > or = 500 mg/dL Direct bilirubinon Bilirubin.direct [Mass/Vol] 0.18 mg/dL 0.00-0.30 [facility] Work Phone: Laboratory - Chemistry and C hemistry - challengeon 11-22-2021 Free T4 [Mass/Vol] 1.19 ng/dL 0.76-1.46 [facility] Work Phone: [phone] ALP [Catalytic activity/Vol] 87 U/L 45-117 [facility] Work Phone: [phone] ALT [Catalytic activity/Vol] 29 U/L 16-61 [facility] Work Phone: Globulin (S) [Mass/Vol] 3.2 g/dL 2.2-4.2 [facility] Work Phone: No Panel Informationon 11-22 Thyroid Stimulating Hormone (TSH) 3.69 uIU/mL 0.358-3.74 [facility] Work Phone: Serum or plasma albumin gm urement (mass/volume)on 11-22-2021 Albumin [Mass/Vol] 3.6 g/dL 3.2-5.0 [facility] Work Phone: [phone] Serum or plasma cholesterol in HDL measurement (mass/volume)on 11-22-2021 Cholesterol in HDL [Mass/Vol] 59 mg/dL >40 [facility] Work Phone: [phone] Comment on above: The drugs N-Acetylcy steine and Metamizole may falsely depress this assay. Reference Range HDL <40 mg/dL Low HDL Cholesterol HDL >or= 60 mg/dL High HDL Cholesterol Serum or plasma cholesterol in VLDL measurement (mass/volume)on 11-22-2021 Cholesterol in VLDL [Mass/Vol] 11 mg/dL 5-40 [facility] Work Phone: [phone] Serum or plasma low density lipoprotein (LDL) cholesterol measurement (mass/volume)on 11-22-2021 Cholesterol in LDL [Mass/Vol] 47 mg/dL 0-130 [facility] Work Phone: Thin prep Papanicolaou smear with manual screeningon 11-22-2021 Thin prep Papanicolaou smear with manual screening 22 U/L 15-37 [facility] Work Phone: Absolute lymphocyte counton 10-11-2021 Lymphocytes Auto (Unsp spec) [#/Vol] 1.21 10*3/uL 0.83-4.51 [facility] Work Phone: Basophil percentageon 2021 Basophils/100 WBC (Bld) 0.7 % 0-1 [facility] Work Phone: Chloride [Moles/Vol] 106 mmol/L 98-107 [facility] Work Phone: Eosinophils/100 WBC (Bld) 0.4 % 0-5 [facility] Work Phone: Glucose [Mass/Vol] 103 mg/dL 74-106 [facility] Work Phone: Comment on above: Fasting Glucose resu lt from 100 to 125 mg/dL suggests IMPAIRED HOMEOSTASIS per A.D.A. criteria. Neutrophils (Bld) [#/Vol] 6.8 10*3/uL 2.0-7.7 [facility] Work Phone: Neutrophils/100 WBC (Bld) 74.6 % 47-70 [facility] Work Phone: Potassium [Moles/Vol] 4.4 mmol/L 3.5-5.1 [facility] Work Phone: Sodium [Moles/Vol] 139 mmol/L 136-145 [facility] Work Phone: WBC (Bld) [#/Vol] 9.1 10*3/uL 4.4-11.0 [facility] Work Phone: [phone] Blood erythrocytes count (nu mber/volume)on 10-11-2021 RBC (Bld) [#/Vol] 4.38 10*6/uL 4.6-6.2 [facility] Work Phone: Blood hemoglobin measurement (mass/volume)on 10-11-2021 Hemoglobin (Bld) [Mass/Vol] 12.4 g/dL 13.0-16.5 [facility] Work Phone: Blood lymphocytes/100 leukoc yteson 10-11-2021 Lymphocytes/100 WBC (Bld) 13.4 % 19-41 [facility] Work Phone: Blood monocytes/100 leukocyt eson 10-11-2021 Monocytes/100 WBC (Bld) 10.3 % 0-10 [facility] Work Phone: Blood platelet mean volumeon 10-11-2021 Platelet mean volume (Bld) [Entitic vol] 9.4 fL 6.2-12.0 [facility] Work Phone: Determination of erythrocyte mean corpuscular volume (MCV)on 10-11-2021 MCV (RBC) [Entitic vol] 87.2 fL 80-94 [facility] Work Phone: Hematocrit Auto (Bld) [Volum e fraction]on 10-11-2021 Hematocrit (Bld) [Volume fraction] 38.2 % 40-54 [facility] Work Phone: Laboratory - Chemistry and C hemistry - challengeon 10-11-2021 CO2 [Moles/Vol] 30.0 mmol/L 21.0-32.0 [facility] Work Phone: Free T4 [Mass/Vol] 1.20 ng/dL 0.76-1.46 [facility] Work Phone: Natriuretic peptide B (Bld) [Mass/Vol] 17.9 pg/mL 0-100 [facility] Work Phone: Urea nitrogen/Creatinine [Mass ratio] 18.2 mg/mg 10-20 [facility] Work Phone: [phone] Laboratory - Hematology and Cell countson 10-11-2021 Erythrocyte distribution width (RBC) [Entitic vol] 53.8 fL 35.1-43.9 [facility] Work Phone: [phone] Erythrocyte distribution width (RBC) [Ratio] 16.9 % 11.6-14.6 [facility] Work Phone: [phone] Immature granulocytes/100 WBC (Bld) 0.600 % 0.0-0.9 [facility] Work Phone: [phone] Comment on above: IG% - Immature Granu locytes (promyelocytes, myelocytes and metamyelocytes) > 1% indicates that a LEFT SHIFT is Present. MCH (RBC) [Entitic mass] 28.3 pg 27.0-32.0 [facility] Work Phone: [phone] Nucleated RBC/100 WBC (Bld) [Ratio] 0 % 0-5 [facility] Work Phone: [phone] MCHC Auto (RBC) [Mass/Vol]on 10-11-2021 MCHC (RBC) [Mass/Vol] 32.5 g/dL 32-36 [facility] Work Phone: No Panel Informationon 10-11 Estimated GFR (MDRD) Amer 60 mL/min >60 [facility] Work Phone: Comment on above: GFR Calc Estimated GFR (MDRD) Non-Af Amer 50 mL/min >60 [facility] Work Phone: Comment on above: Non- GFR Calc Thyroid Stimulating Hormone (TSH) 4.35 uIU/mL 0.358-3.74 [facility] Work Phone: Platelets bldon 10-11-2021 Platelets (Bld) [#/Vol] 310 10*3/uL 150-450 [facility] Work Phone: [phone] Serum or plasma calcium gm urement (mass/volume)on 10-11-2021 Calcium [Mass/Vol] 9.1 mg/dL 8.5-10.1 [facility] Work Phone: [phone] Serum or plasma creatinine m easurement (mass/volume)on 10-11-2021 Creatinine [Mass/Vol] 1.48 mg/dL 0.70-1.30 [facility] Work Phone: Comment on above: The validity of the calculated GFR & GFRAA in patients over 70 years has not been determined. Clinical correlation is essential. Serum or plasma urea nitroge n measurement (mass/volume)on 10-11-2021 Urea nitrogen [Mass/Vol] 27 mg/dL 7-18 [facility] Work Phone: Thin prep Papanicolaou smear with manual screeningon 10-11-2021 Thin prep Papanicolaou smear with manual screening 3 5-15 [facility] Work Phone: .Auto Diffon 03-30-2021 Basophil, Absolute 0.10 10 3/mcL Normal 0.00-0.19 [facility] ([place]) Comment on above: Performed By: #### C MICHELLE CHRISTIAN ANEU, BMP #### [place] [address] #### GFR #### [address] [address] Basophils/100 WBC (Bld) 0.6 % Normal 0.0-2.5 [facility] ([place]) Comment on above: Performed By: #### C MICHELLE CHRISTIAN ANEU, BMP #### [place] [address] #### GFR #### [address] [address] Eosinophil, Absolute 0.00 10 3/mcL Normal 0.00-0.40 [facility] ([place]) Comment on above: Performed By: #### C BC ADJARRELL ANEU, BMP #### [place] [address] #### GFR #### [address] [address] Eosinophils/100 WBC (Bld) 0.0 % Normal 0.0-7.0 [facility] ([place]) Comment on above: Performed By: #### C BC ADIFF ANEU, BMP #### [place] [address] #### GFR #### [address] [address] Lymphocyte, Absolute 0.20 10 3/mcL Low 0.77-3.85 [facility] ([place]) Comment on above: Performed By: #### C BC, ADIFF, ANEU, BMP #### [address] [address] #### GFR #### [address] [address] Lymphocytes/100 WBC (Bld) 1.9 % Low 10.0-50.0 [facility] ([place]) Comment on above: Performed By: #### C BC, ADIFF, ANEU, BMP #### [place] [address] #### GFR #### [address] [address] Monocyte, Absolute 0.60 10 3/mcL Normal 0.15-1.00 [facility] ([place]) Comment on above: Performed By: #### C BC, ADIFF, ANEU, BMP #### [place] [address] #### GFR #### [address] [address] Monocytes/100 WBC (Bld) 4.8 % Normal 1.7-13.0 [facility] ([place]) Comment on above: Performed By: #### C BC, ADIFF, ANEU, BMP #### [place] [address] #### GFR #### [address] [address] Neutrophils/100 WBC (Bld) 92.7 % High 37.0-80.0 [facility] ([place]) Comment on above: Performed By: #### C BC, ADIFF, ANEU, BMP #### [place] [address] #### GFR #### [address] [address] .GFRon 03-30-2021 GFR 60 ml/min/1.73sqm Normal [facility] ([place]) Comment on above: Result Comment: GFR Population [...] #### C BC, ADIFF, ANEU, BMP #### [address] [address] #### GFR #### [address] [address] GFR Non- 49 ml/min/1.73sqm Normal [facility] ([place]) Comment on above: Result Comment: GFR Population [...] #### C BC, ADIFF, ANEU, BMP #### [address] [address] #### GFR #### [address] [address] .NEUABSon 03-30-2021 Neutrophil, Absolute 11.50 10 3/mcL High 2.85-6.16 [facility] ([place]) Comment on above: Performed By: #### C BC, ADIFF, ANEU, BMP #### [address] [address] #### GFR #### [address] [address] BMPon 03-30-2021 BUN/Creatinine Ratio 12 ratio Normal 02-27 [facility] ([place]) Comment on above: Performed By: #### C BC, ADIFF, ANEU, BMP #### [address] [address] #### GFR #### [address] [address] Calcium [Mass/Vol] 8.7 mg/dL Normal 8.4-10.2 [facility] ([place]) Comment on above: Performed By: #### C BC, ADIFF, ANEU, BMP #### [address] [address] #### GFR #### [address] [address] Chloride [Moles/Vol] 101 mmol/L Normal 98-107 [facility] ([place]) Comment on above: Performed By: #### C BC, ADIFF, ANEU, BMP #### [address] [address] #### GFR #### [address] [address] CO2 [Moles/Vol] 31 mmol/L Normal 23-31 [facility] ([place]) Comment on above: Performed By: #### C BC, ADIFF, ANEU, BMP #### [address] [address] #### GFR #### [address] [address] Creatinine [Mass/Vol] 1.42 mg/dL High 0.70-1.30 [facility] ([place]) Comment on above: Performed By: #### C BC, ADIFF, ANEU, BMP #### [address] [address] #### GFR #### [address] [address] Electrolyte Balance 7.0 mEq/L Normal [facility] ([place]) Comment on above: Performed By: #### C BCMICHELLE ANEU, BMP #### [address] [address] #### GFR #### [address] [address] Glucose [Mass/Vol] 126 mg/dL High 83-110 [facility] ([place]) Comment on above: Performed By: #### C MICHELLE CHRISTIAN ANEU, BMP #### [place] [address] #### GFR #### [address] [address] Potassium [Moles/Vol] 4.6 mmol/L Normal 3.5-5.1 [facility] ([place]) Comment on above: Performed By: #### C MICHELLE CHRISTIAN ANEU, BMP #### [address] [address] #### GFR #### [address] [address] Sodium [Moles/Vol] 139 mmol/L Normal 136-145 [facility] ([place]) Comment on above: Performed By: #### C MICHELLE CHRISTIAN ANEU, BMP #### [address] [address] #### GFR #### [address] [address] Urea nitrogen [Mass/Vol] 17 mg/dL Normal 7-18 [facility] ([place]) Comment on above: Performed By: #### C MICHELLE CHRISTIAN ANEU, BMP #### [address] [address] #### GFR #### [address] [address] CBCon 03-30-2021 Erythrocyte distribution width (RBC) [Ratio] 14.7 % High 11.5-14.5 [facility] ([place]) Comment on above: Performed By: #### C BC, ADIFF, ANEU, BMP ####[place] [address]#### GFR ####[place] [address] Hematocrit (Bld) [Volume fraction] 34.8 % Low 42.0-52.0 [facility] ([place]) Comment on above: Performed By: #### C BC, ADIFF, ANEU, BMP ####[place] [address]#### GFR ####[place] [address] Hgb 11.6 G/dL Low 14.0-18.0 [facility] ([place]) Comment on above: Performed By: #### C BC, ADIFF, ANEU, BMP ####[place] [address]#### GFR ####[place] [address] MCH (RBC) [Entitic mass] 31.1 pg Normal 27.0-31.2 [facility] ([place]) Comment on above: Performed By: #### C BC, ADIFF, ANEU, BMP ####[place] [address]#### GFR ####[place] [address] MCHC 33.3 G/dL Normal 31.8-35.4 [facility] ([place]) Comment on above: Performed By: #### C BC, ADIFF, ANEU, BMP ####[facility] [place] [address]#### GFR ####[place] [address] MCV (RBC) [Entitic vol] 93.3 fL Normal 80.0-94.0 [facility] ([place]) Comment on above: Performed By: #### C BC, ADIFF, ANEU, BMP ####[place] [address]#### GFR ####[place] [address] Platelet 259 10 3/mcL Normal 130-400 [facility] ([place]) Comment on above: Performed By: #### C BC ADJARRELL, ANEU, BMP ####[place] [address]#### GFR ####[place] [address] Platelet mean volume (Bld) [Entitic vol] 7.8 fL Normal 7.4-10.4 [facility] ([place]) Comment on above: Performed By: #### C MICHELLE CHRISTIAN, ANEU, BMP ####[place] [address]#### GFR ####[place] [address] RBC 3.72 10 6/mcL Low 4.04-6.13 [facility] ([place]) Comment on above: Performed By: #### C BC ADJARRELL, ANEU, BMP ####[place] [address]#### GFR ####[place] [address] WBC 12.50 10 3/mcL High 4.60-10.80 [facility] ([place]) Comment on above: Performed By: #### C BC ADJARRELL, ANEU, BMP ####[place] [address]#### GFR ####[place] [address] .Auto Diffon 03-29-2021 Basophil, Absolute 0.00 10 3/mcL Normal 0.00-0.19 [facility] ([place]) Comment on above: Performed By: #### C BC, ADIFF, ANEU ####[place] [address]#### BMP, GFR ####[place] [address] Basophils/100 WBC (Bld) 0.3 % Normal 0.0-2.5 [facility] ([place]) Comment on above: Performed By: #### C BC, ADIFF, ANEU ####[place] [address]#### BMP, GFR ####[address] [address] Eosinophil, Absolute 0.00 10 3/mcL Normal 0.00-0.40 [facility] ([place]) Comment on above: Performed By: #### C BC, ADIFF, ANEU ####[place] [address]#### BMP, GFR ####[address] [address] Eosinophils/100 WBC (Bld) 0.2 % Normal 0.0-7.0 [facility] ([place]) Comment on above: Performed By: #### C BC, ADIFF, ANEU ####[place] [address]#### BMP, GFR ####[address] [address] Lymphocyte, Absolute 1.00 10 3/mcL Normal 0.77-3.85 [facility] ([place]) Comment on above: Performed By: #### C BC, ADIFF, ANEU ####[place] [address]#### BMP, GFR ####[address] [address] Lymphocytes/100 WBC (Bld) 9.4 % Low 10.0-50.0 [facility] ([place]) Comment on above: Performed By: #### C BC, ADIFF, ANEU ####[place] [address]#### BMP, GFR ####[address] [address] Monocyte, Absolute 1.20 10 3/mcL High 0.15-1.00 [facility] ([place]) Comment on above: Performed By: #### C BC, ADIFF, ANEU ####[place] [address] [place], [place] [address]#### BMP, GFR ####[facility] [place] [address] Monocytes/100 WBC (Bld) 12.0 % Normal 1.7-13.0 [facility] ([place]) Comment on above: Performed By: #### C BC, ADIFF, ANEU ####[place] [address] [place], [place] [address]#### BMP, GFR ####[address] [address] Neutrophils/100 WBC (Bld) 78.1 % Normal 37.0-80.0 [facility] ([place]) Comment on above: Performed By: #### C BC ADIFF, ANEU ####[place] [address] [place], [place] [address]#### BMP, GFR ####[address] [address] .GFRon 03-29-2021 GFR 58 ml/min/1.73sqm Normal [facility] ([place]) Comment on above: Result Comment: GFR Population [...] By: #### C BC, ADIFF, ANEU ####[place] [address] [place], [place] [address]#### BMP, GFR ####[place] [address] [address] [place] [address] GFR Non- 48 ml/min/1.73sqm Normal [facility] ([place]) Comment on above: Result Comment: GFR Population [...] meters Performed By: #### C MICHELLE CHRISTIAN, ANEU ####[place] [address] [place] [address]#### BMP, GFR ####[address] [address] .NEUABSon 03-29-2021 Neutrophil, Absolute 8.10 10 3/mcL High 2.85-6.16 [facility] ([place]) Comment on above: Performed By: #### C MICHELLE CHRISTIAN, ANEU ####[place] [address] [place] [address]#### BMP, GFR ####[address] [address] BMPon 03-29-2021 BUN/Creatinine Ratio 14 ratio Normal 7-27 [facility] ([place]) Comment on above: Performed By: #### MICHELLE TATE, ANEU ####[place] [address] [place] [address]#### BMP, GFR ####[address] [address] Calcium [Mass/Vol] 8.9 mg/dL Normal 8.4-10.2 [facility] ([place]) Comment on above: Performed By: #### C BCVADIMIFF, ANEU ####[place] [address] [place] [address]#### BMP, GFR ####[address] [address] Chloride [Moles/Vol] 104 mmol/L Normal 98-107 [facility] ([place]) Comment on above: Performed By: #### C BC, ADIFF, ANEU ####[place] [address] [place], [place] [address]#### BMP, GFR ####[address] [address] CO2 [Moles/Vol] 30 mmol/L Normal 23-31 [facility] ([place]) Comment on above: Performed By: #### C BC, ADIFF, ANEU ####[facility] [place] [address]#### BMP, GFR ####[address] [address] Creatinine [Mass/Vol] 1.45 mg/dL High 0.70-1.30 [facility] ([place]) Comment on above: Performed By: #### VADIM TATEIFF, ANEU ####[place] [address]#### BMP, GFR ####[address] [address] Electrolyte Balance 6.0 mEq/L Normal [facility] ([place]) Comment on above: Performed By: #### C VADIM CHRISTIANIFF, ANEU ####[place]amiles [address] [place], [place] [address]#### BMP, GFR ####[address] [address] Glucose [Mass/Vol] 98 mg/dL Normal 83-110 [facility] ([place]) Comment on above: Performed By: #### C BC, ADIFF, ANEU ####[place] [address] [place], [place] [address]#### BMP, GFR ####[address] [address] Potassium [Moles/Vol] 4.3 mmol/L Normal 3.5-5.1 [facility] ([place]) Comment on above: Performed By: #### C BC, ADIFF, ANEU ####[place] [address] [place], [place] [address]#### BMP, GFR ####[address] [address] Sodium [Moles/Vol] 140 mmol/L Normal 136-145 [facility] ([place]) Comment on above: Performed By: #### C BC, ADIFF, ANEU ####[place]ina [address] [address]#### BMP, GFR ####[address] [address] Urea nitrogen [Mass/Vol] 20 mg/dL High 7-18 [facility] ([place]) Comment on above: Performed By: #### C BC, ADIFF, ANEU ####[place] [address]#### BMP, GFR ####[address] [address] CBCon 03-29-2021 Erythrocyte distribution width (RBC) [Ratio] 14.7 % High 11.5-14.5 [facility] ([place]) Comment on above: Performed By: #### C BC, MICHELLE, ANEU ####[place] [address]#### BMP, GFR ####[address] [address] Hematocrit (Bld) [Volume fraction] 35.7 % Low 42.0-52.0 [facility] ([place]) Comment on above: Performed By: #### C BC, ADIFF, ANEU ####[place] [address] [address]#### BMP, GFR ####[address] [address] Hgb 12.1 G/dL Low 14.0-18.0 [facility] ([place]) Comment on above: Performed By: #### C BC, ADIFF, ANEU ####[place] [address] [place] [address]#### BMP, GFR ####[address] [address] MCH (RBC) [Entitic mass] 31.3 pg High 27.0-31.2 [facility] ([place]) Comment on above: Performed By: #### MICHELLE TATE, ANEU ####[place] [address]#### BMP, GFR ####[place] [address] MCHC 33.7 G/dL Normal 31.8-35.4 [facility] ([place]) Comment on above: Performed By: #### C MICHELLE CHRISTIAN, ANEU ####[place] [address]#### BMP, GFR ####[place] [address] MCV (RBC) [Entitic vol] 92.7 fL Normal 80.0-94.0 [facility] ([place]) Comment on above: Performed By: #### C MICHELLE CHRISTIAN, ANEU ####[place] [address]#### BMP, GFR ####[place] [address] Platelet 248 10 3/mcL Normal 130-400 [facility] ([place]) Comment on above: Performed By: #### C MICHELLE CHRISTIAN, ANEU ####[place] [address]#### BMP, GFR ####[place] [address] Platelet mean volume (Bld) [Entitic vol] 7.4 fL Normal 7.4-10.4 [facility] ([place]) Comment on above: Performed By: #### C MICHELLE CHRISTIAN, ANEU ####[place] [address]#### BMP, GFR ####[place] [address] RBC 3.85 10 6/mcL Low 4.04-6.13 [facility] ([place]) Comment on above: Performed By: #### C BCMICHELLE, ANEU ####[facility] [place], [place] [address]#### BMP, GFR ####[address] [address] WBC 10.30 10 3/mcL Normal 4.60-10.80 [facility] ([place]) Comment on above: Performed By: #### C BC, ADIFF, ANEU ####[place] [address] [place], [place] [address]#### BMP, GFR ####[address] [address] XR SHOULDER MINIMUM 2 VIEWS RIGHTon 03-29-2021 [...] 03/29/2021 6:10:54 PM Ordering Provider: UMA Kang [facility] ([place]) .Auto Diffon 01-31-2021 Basophil, Absolute 0.00 10 3/mcL Normal 0.00-0.19 [facility] ([place]) Comment on above: Performed By: #### C BC, ADIFF, ANEU, BMP #### [address] [address] #### GFR #### [address] [address] Basophils/100 WBC (Bld) 0.1 % Normal 0.0-2.5 [facility] ([place]) Comment on above: Performed By: #### C BC, ADIFF, ANEU, BMP #### [place] [address] #### GFR #### [address] [address] Eosinophil, Absolute 0.00 10 3/mcL Normal 0.00-0.40 [facility] ([place]) Comment on above: Performed By: #### C BC, ADIFF, ANEU, BMP #### [place] [address] #### GFR #### [address] [address] Eosinophils/100 WBC (Bld) 0.0 % Normal 0.0-7.0 [facility] ([place]) Comment on above: Performed By: #### C BC, ADIFF, ANEU, BMP #### [place] [address] #### GFR #### [address] [address] Lymphocyte, Absolute 0.20 10 3/mcL Low 0.77-3.85 [facility] ([place]) Comment on above: Performed By: #### C BC, ADIFF, ANEU, BMP #### [place] [address] #### GFR #### [address] [address] Lymphocytes/100 WBC (Bld) 1.4 % Low 10.0-50.0 [facility] ([place]) Comment on above: Performed By: #### C BC, ADIFF, ANEU, BMP #### [place] [address] #### GFR #### [address] [address] Monocyte, Absolute 0.90 10 3/mcL Normal 0.15-1.00 [facility] ([place]) Comment on above: Performed By: #### C BC, ADIFF, ANEU, BMP #### [address] [address] #### GFR #### [address] [address] Monocytes/100 WBC (Bld) 6.5 % Normal 1.7-13.0 [facility] ([place]) Comment on above: Performed By: #### C BC, ADIFF, ANEU, BMP #### [address] [address] #### GFR #### [address] [address] Neutrophils/100 WBC (Bld) 92.0 % High 37.0-80.0 [facility] ([place]) Comment on above: Performed By: #### C BC, ADIFF, ANEU, BMP #### [address] [address] #### GFR #### [address] [address] .GFRon 01-31-2021 GFR 59 ml/min/1.73sqm Normal [facility] ([place]) Comment on above: Result Comment: GFR Population [...] By: #### C BC, ADIFF, ANEU, BMP ####[address] [address]#### GFR ####[address] [address] GFR Non- 49 ml/min/1.73sqm Normal [facility] ([place]) Comment on above: Result Comment: GFR Population [...] mL/min/1.73 square meters Performed By: #### C BCMICHELLE ANEU, BMP ####[place] [id number] [place] [address]#### GFR ####[place] [address] .NEUABSon 01-31-2021 Neutrophil, Absolute 12.90 10 3/mcL High 2.85-6.16 [facility] ([place]) Comment on above: Performed By: #### C BCMICHELLE ANEU, BMP ####[place] [address] [place] [id number]#### GFR ####[place] [address] BMPon 01-31-2021 BUN/Creatinine Ratio 15 ratio Normal 7-27 [facility] ([place]) Comment on above: Performed By: #### C BC ADIFF, ANEU, BMP ####[place] [id number] [place] [address]#### GFR ####[place] [address] Calcium [Mass/Vol] 8.5 mg/dL Normal 8.4-10.2 [facility] ([place]) Comment on above: Performed By: #### C BC, ADIFF, ANEU, BMP ####[place] [address]#### GFR ####[address] [address] Chloride [Moles/Vol] 106 mmol/L Normal 98-107 [facility] ([place]) Comment on above: Performed By: #### C BCMICHELLE ANEU, BMP ####[address] [address]#### GFR ####[address] [address] CO2 [Moles/Vol] 26 mmol/L Normal 23-31 [facility] ([place] Comment on above: Performed By: #### C MICHELLE CHRISTIAN ANEU, BMP ####[place] [address]#### GFR ####[address] [address] Creatinine [Mass/Vol] 1.43 mg/dL High 0.70-1.30 [facility] ([place]) Comment on above: Performed By: #### C MICHELLE CHRISTIAN ANEU, BMP ####[place] [address]#### GFR ####[address] [address] Electrolyte Balance 9.0 mEq/L Normal [facility] ([place]) Comment on above: Performed By: #### C MICHELLE CHRISTIAN ANEU, BMP ####[place] [address]#### GFR ####[address] [address] Glucose [Mass/Vol] 125 mg/dL High 83-110 [facility] ([place]) Comment on above: Performed By: #### C MICHELLE CHRISTIAN, ANEU, BMP ####[place] [id number]#### GFR ####[address] [address] Potassium [Moles/Vol] 4.7 mmol/L Normal 3.5-5.1 [facility] ([place] Comment on above: Performed By: #### C BC, ADIFF, ANEU, BMP ####[address] [address]#### GFR ####[address] [address] Sodium [Moles/Vol] 141 mmol/L Normal 136-145 [facility] ([place] Comment on above: Performed By: #### C BC, ADIFF, ANEU, BMP ####[address] [address]#### GFR ####[address] [address] Urea nitrogen [Mass/Vol] 21 mg/dL High - [facility] ([place]) Comment on above: Performed By: #### C BC, ADIFF, ANEU, BMP ####[place] [address]#### GFR ####[address] [address] CBCon 01-31-2021 Erythrocyte distribution width (RBC) [Ratio] 15.2 % High 11.5-14.5 [facility] ([place]) Comment on above: Performed By: #### C BC, ADIFF, ANEU, BMP #### [address] [address] #### GFR #### [address] [address] Hematocrit (Bld) [Volume fraction] 34.8 % Low 42.0-52.0 [facility] ([place]) Comment on above: Performed By: #### C BC, ADIFF, ANEU, BMP #### [address] [address] #### GFR #### [address] [address] Hgb 11.8 G/dL Low 14.0-18.0 [facility] ([place]) Comment on above: Performed By: #### C BC, ADIFF, ANEU, BMP #### [address] [address] #### GFR #### [address] [address] MCH (RBC) [Entitic mass] 32.0 pg High 27.0-31.2 [facility] ([place]) Comment on above: Performed By: #### C BCMICHELLE ANEU, BMP #### [place] [address] #### GFR #### [place] [address] MCHC 34.0 G/dL Normal 31.8-35.4 [facility] ([place]) Comment on above: Performed By: #### C MICHELLE CHRISTIAN, ANEU, BMP #### [place] [address] #### GFR #### [place] [address] MCV (RBC) [Entitic vol] 94.0 fL Normal 80.0-94.0 [facility] ([place]) Comment on above: Performed By: #### C MICHELLE CHRISTIAN, ANEU, BMP #### [place] [address] #### GFR #### [place] [address] Platelet 228 10 3/mcL Normal 130-400 [facility] ([place]) Comment on above: Performed By: #### C MICHELLE CHRISTIAN ANEU, BMP #### [place] [address] #### GFR #### [place] [address] Platelet mean volume (Bld) [Entitic vol] 8.0 fL Normal 7.4-10.4 [facility] ([place] Comment on above: Performed By: #### C BC, ADJARRELL, ANEU, BMP #### [place] [address] #### GFR #### [place] [address] RBC 3.70 10 6/mcL Low 4.04-6.13 [facility] ([place] Comment on above: Performed By: #### C BC, ADIFF, ANEU, BMP #### [address] [address] #### GFR #### [address] [address] WBC 14.00 10 3/mcL High 4.60-10.80 [facility] ([place]) Comment on above: Performed By: #### C BC, ADIFF, ANEU, BMP #### [address] [address] #### GFR #### [address] [address] XR SHOULDER MINIMUM 2 VIEWS RIGHTon 01-30-2021 [...] Date: 01/30/2021 12:32:31 PM Ordering Provider:Uma Kang [facility] ([place]) .Auto Diffon 01-15-2021 Basophil, Absolute 0.00 10 3/mcL Normal 0.00-0.19 [facility] ([place]) Comment on above: Performed By: #### C BC, ADIFF, ANEU, BMP #### [address] [address] #### GFR #### [address] [address] Basophils/100 WBC (Bld) 0.5 % Normal 0.0-2.5 [facility] ([place]) Comment on above: Performed By: #### C BC, ADIFF, ANEU, BMP #### [place] [address] #### GFR #### [address] [address] Eosinophil, Absolute 0.00 10 3/mcL Normal 0.00-0.40 [facility] ([place]) Comment on above: Performed By: #### C BC, ADIFF, ANEU, BMP #### [place] [address] #### GFR #### [address] [address] Eosinophils/100 WBC (Bld) 0.0 % Normal 0.0-7.0 [facility] ([place]) Comment on above: Performed By: #### C BC, ADIFF, ANEU, BMP #### [place] [address] #### GFR #### [address] [address] Lymphocyte, Absolute 0.70 10 3/mcL Low 0.77-3.85 [facility] ([place]) Comment on above: Performed By: #### C BC, ADIFF, ANEU, BMP #### [place] [address] #### GFR #### [address] [address] Lymphocytes/100 WBC (Bld) 10.4 % Normal 10.0-50.0 [facility] ([place]) Comment on above: Performed By: #### C BC, ADIFF, ANEU, BMP #### [place] [address] #### GFR #### [address] [address] Monocyte, Absolute 0.60 10 3/mcL Normal 0.15-1.00 [facility] ([place]) Comment on above: Performed By: #### C BC, ADIFF, ANEU, BMP #### [place] [address] #### GFR #### [address] [address] Monocytes/100 WBC (Bld) 9.3 % Normal 1.7-13.0 [facility] ([place]) Comment on above: Performed By: #### C BC, ADIFF, ANEU, BMP #### [address] [address] #### GFR #### [address] [address] Neutrophils/100 WBC (Bld) 79.8 % Normal 37.0-80.0 [facility] ([place] Comment on above: Performed By: #### C BC, ADIFF, ANEU, BMP #### [address] [address] #### GFR #### [address] [address] .GFRon 01-15-2021 GFR Non- 47 ml/min/1.73sqm Normal [facility] ([place]) Comment on above: Result Comment: GFR Population [...] #### C BC, ADIFF, ANEU, BMP #### [address] [address] #### GFR #### [address] [address] GFR 57 ml/min/1.73sqm Normal [facility] ([place]) Comment on above: Result Comment: GFR Population [...] #### C BC, ADIFF, ANEU, BMP #### [place] [address] #### GFR #### [address] [address] .NEUABSon 01-15-2021 Neutrophil, Absolute 5.10 10 3/mcL Normal 2.85-6.16 [facility] ([place]) Comment on above: Performed By: #### C BC, ADIFF, ANEU, BMP #### [place] [address] #### GFR #### [address] [address] BMPon 01-15-2021 BUN/Creatinine Ratio 20 ratio Normal 7-27 [facility] ([place]) Comment on above: Performed By: #### C BC, ADIFF, ANEU, BMP #### [place] [address] #### GFR #### [place] [id number] Calcium [Mass/Vol] 9.0 mg/dL Normal 8.4-10.2 [facility] ([place]) Comment on above: Performed By: #### C BC, ADIFF, ANEU, BMP #### [place] [address] #### GFR #### [place] [address] Chloride [Moles/Vol] 105 mmol/L Normal 98-107 [facility] ([place] Comment on above: Performed By: #### C BC, ADIFF, ANEU, BMP #### [address] [address] #### GFR #### [address] [address] CO2 [Moles/Vol] 29 mmol/L Normal 23-31 [facility] ([place]) Comment on above: Performed By: #### C BC, ADIFF, ANEU, BMP #### [address] [address] #### GFR #### [address] [address] Creatinine [Mass/Vol] 1.48 mg/dL High 0.70-1.30 [facility] ([place] Comment on above: Performed By: #### C BC ADJARRELL, ANEU, BMP #### [address] [address] #### GFR #### [address] [address] Electrolyte Balance 8.0 mEq/L Normal [facility] ([place]) Comment on above: Performed By: #### C BC, ADIFF, ANEU, BMP #### [address] [address] #### GFR #### [address] [address] Glucose [Mass/Vol] 81 mg/dL Low 83-110 [facility] ([place]) Comment on above: Performed By: #### C BC, ADIFF, ANEU, BMP #### [address] [address] #### GFR #### [address] [address] Potassium [Moles/Vol] 4.3 mmol/L Normal 3.5-5.1 [facility] ([place] Comment on above: Performed By: #### C BC, ADIFF, ANEU, BMP #### [address] [address] #### GFR #### [address] [address] Sodium [Moles/Vol] 142 mmol/L Normal 136-145 [facility] ([place] Comment on above: Performed By: #### C BCMICHELLE ANEU, BMP #### [address] [address] #### GFR #### [address] [address] Urea nitrogen [Mass/Vol] 29 mg/dL High 7-18 [facility] ([place]) Comment on above: Performed By: #### C BCMICHELLE ANEU, BMP #### [place] [address] #### GFR #### [place] [address] CBCon 01-15-2021 Erythrocyte distribution width (RBC) [Ratio] 15.3 % High 11.5-14.5 [facility] ([place]) Comment on above: Order Comment: Pre-A dmission Testing Performed By: #### C BCMICHELLE ANEU, BMP #### [place] [address] #### GFR #### [address] [address] Hematocrit (Bld) [Volume fraction] 38.0 % Low 42.0-52.0 [facility] ([place]) Comment on above: Order Comment: Pre-A dmission Testing Performed By: #### C MICHELLE CHRISTIAN ANEU, BMP #### [place] [address] #### GFR #### [place] [address] Hgb 13.0 G/dL Low 14.0-18.0 [facility] ([place]) Comment on above: Order Comment: Pre-A dmission Testing Performed By: #### C BCMICHELLE ANEU, BMP #### [place] [address] #### GFR #### [address] [address] MCH (RBC) [Entitic mass] 32.7 pg High 27.0-31.2 [facility] ([place] Comment on above: Order Comment: Pre-A dmission Testing Performed By: #### C BC, ADIFF, ANEU, BMP #### [place] [address] #### GFR #### [place] [address] MCHC 34.3 G/dL Normal 31.8-35.4 [facility] ([place] Comment on above: Order Comment: Pre-A dmission Testing Performed By: #### C BC, ADIFF, ANEU, BMP #### [place] [address] #### GFR #### [place] [address] MCV (RBC) [Entitic vol] 95.3 fL High 80.0-94.0 [facility] ([place]) Comment on above: Order Comment: Pre-A dmission Testing Performed By: #### C BC, ADIFF, ANEU, BMP #### [place] [address] #### GFR #### [place] [address] Platelet 229 10 3/mcL Normal 130-400 [facility] ([place]) Comment on above: Order Comment: Pre-A dmission Testing Performed By: #### C BC, ADIFF, ANEU, BMP #### [place] [address] #### GFR #### [place] [address] Platelet mean volume (Bld) [Entitic vol] 7.9 fL Normal 7.4-10.4 [facility] ([place]) Comment on above: Order Comment: Pre-A dmission Testing Performed By: #### C BC, ADIFF, ANEU, BMP #### [place] [address] #### GFR #### [place] [address] RBC 3.98 10 6/mcL Low 4.04-6.13 [facility] ([place]) Comment on above: Order Comment: Pre-A dmission Testing Performed By: #### C BC, ADIFF, ANEU, BMP #### [address] [address] #### GFR #### [address] [address] WBC 6.40 10 3/mcL Normal 4.60-10.80 [facility]) Comment on above: Order Comment: Pre-A dmission Testing Performed By: #### C BC, ADIFF, ANEU, BMP #### [place] [id number] [place], [place] [address] #### GFR #### [address] [address] XR CHEST 2 VIEWSon 1 XR CHEST 2 VIEWS ORIGINAL XR CHEST [...] Sign Date: 01/15/2021 1:00:26 PM Ordering Provider:Uma Kang [facility] ([place]) US EXTREMITY NON-VASCULAR JOVANI Rachel 11-27-2020 US EXTREMITY NON-VASCULAR RIGHT ORIGINAL US [...] the infraspinatus tendon is seen. There is [id number] fluid in the subacromial and subdeltoid bursa. [...] Date: 11/27/2020 11:54:04 AM Ordering Provider:Justin Kang [facility] ([place]) Therapy Communicationon 03- Erythrocyte distribution width (RBC) [Ratio] Message BRIGETTE CHELSIE was (D/C)- last seen: 06/01/20. Patient was placed on hold from PT until he finished his vision therapy-no return to therapy and therefore discharged d/t greater than 30 day lapse in PT services. Signatures Electronically signed by : Fartun Mendoza PT; Oct 17 2020 10:06AM EST (Author) Normal [employer] HIP, UNILATERAL W/PELVIS WHE N PERFORMED 2-3 VIEWSon 12-16-2019 HIP, UNILATERAL W/PELVIS WHEN PERFORMED 2-3 VIEWS Patient Name: BRIGETTE HOLGUIN STUDY: LeftHIP, UNILATERAL W/PELVIS WHEN PERFORMED 2-3 VIEWS; 12/16/2019 1:28 pm INDICATION: PAIN IN LEFT HIP. COMPARISON: None. ACCESSION NUMBER(S): [id number] ORDERING CLINICIAN: ARGENIS SHARP FINDINGS: Bony structures: [...] Electronically signed by: PARESH FLETCHER MD Normal [facility] Otheron 12-16-2019 Interpreted by: PARESH FLETCHER12/16/19 13:32MRN: [id number] Name: BRIGETTE HOLGUIN STUDY:LeftHIP, UNILATERAL W/PELVIS WHEN [...] by: PARESH FLETCHER 12/16/19 13:32 Normal [facility] Work Phone: Comment on above: Ordering Provider: Virgie SHARP [id number] ECG B/O W INTERP (MED OFFICE ) [facility] Vital Signs Date Time Vital Sign Value Performing Clinician Faci lity 05-10-2025 08:33-0400 Body height 175.[address] Paresh Carranza MD Work Phone: [facility] 05-10-2025 08:33-0400 Body mass index (BMI) [Ratio] 24.2 kg/m2 Dr. Paresh Carranza MD Work Phone: [facility] 05-10-2025 08:33-0400 Body weight 74.[address] Paresh Carranza MD Work Phone: [facility] 05-10-2025 08:33-0400 Diastolic blood pressure 83 mm[Hg] Dr. Paresh Carranza MD Work Phone: 0(840)861-158464 [place] [address] 05-10-2025 08:33-0400 Heart rate 75 /min Dr. Paresh Carranza MD Work Phone: 1(688)446-147364 [place] [address] 05-10-2025 08:33-0400 Respiratory rate 18 /min Dr. Paresh Carranza MD Work Phone: 7(128)394-970372 [place] [address] 05-10-2025 08:33-0400 SaO2% (BldA) [Mass fraction] 98 % Dr. Paresh Carranza MD Work Phone: 1(663)564-002872 [place] [address] 05-10-2025 08:33-0400 Systolic blood pressure 123 mm[Hg] Dr. Paresh Carranza MD Work Phone: 3(839)104-397172 [place] [address] 04-15-2025 15:10-0400 Diastolic blood pressure 70 mm[Hg] Dr. Paresh Carranza MD Work Phone: 5(269)791-347772 [place] [address] 04-15-2025 15:10-0400 Heart rate 115 /min Dr. Paresh Carranza MD Work Phone: 1(573)609-283272 [place] [address] 04-15-2025 15:10-0400 Respiratory rate 16 /min Dr. Paresh Carranza MD Work Phone: 1(839)999-940672 [place] [address] 04-15-2025 15:10-0400 SaO2% (BldA) [Mass fraction] 97 % Dr. Paresh Carranza MD Work Phone: 3(263)626-822472 [place] [address] 04-15-2025 15:10-0400 Systolic blood pressure 113 mm[Hg] Dr. Paresh Carranza MD Work Phone: 5(161)771-055564 [place] [address] 01-05-2025 09:23-0400 Body height 175.[address] Paresh Carranza MD Work Phone: 6(526)824-638272 [place] [address] 01-05-2025 09:23-0400 Body mass index (BMI) [Ratio] 25.2 kg/m2 Dr. Paresh Carranza MD Work Phone: 9(204)481-636372 [place] [address] 01-05-2025 09:23-0400 Body weight 77.[address] Paresh Carranza MD Work Phone: 7(020)367-448872 [place] [address] 01-05-2025 09:23-0400 Diastolic blood pressure 71 mm[Hg] Dr. Paresh Carranza MD Work Phone: [facility] 01-05-2025 09:23-0400 Heart rate 59 /min Dr. Paresh Craranza MD Work Phone: 1(700)921-460564 [place] [address] 01-05-2025 09:23-0400 Respiratory rate 14 /min Dr. Paresh Carranza MD Work Phone: 9(218)416-605764 [place] [address] 01-05-2025 09:23-0400 Systolic blood pressure 152 mm[Hg] Dr. Paresh Carranza MD Work Phone: 2(810)917-585172 [place] [address] 12-31-2024 09:32-0400 Body height 175.[address] Paresh Carranza MD Work Phone: 9(995)634-004972 [place] [address] 12-31-2024 09:32-0400 Body mass index (BMI) [Ratio] 25.7 kg/m2 Dr. Paresh Carranza MD Work Phone: 1(536)764-604872 [place] [address] 12-31-2024 09:32-0400 Body weight 79.[address] Paresh Carranza MD Work Phone: 3(725)094-524572 [place] [address] 11-08-2024 10:42-0400 Body height 175.[address] Paresh Carranza MD Work Phone: 8(114)338-016572 [place] [address] 11-08-2024 10:40-0400 Body mass index (BMI) [Ratio] 25.9 kg/m2 Dr. Paresh Carranza MD Work Phone: 5(672)130-449864 [place] [address] 11-08-2024 10:40-0400 Body weight 79.[address] Paresh Carranza MD Work Phone: 1(672)571-873464 [place] [address] 11-08-2024 10:40-0400 Diastolic blood pressure 82 mm[Hg] Dr. Paresh Carranza MD Work Phone: 5(450)131-923364 [place] [address] 11-08-2024 10:40-0400 Heart rate 70 /min Dr. Paresh Carranza MD Work Phone: 5(827)689-258764 [place] [address] 11-08-2024 10:40-0400 Respiratory rate 18 /min Dr. Paresh Carranza MD Work Phone: [facility] 11-08-2024 10:40-0400 SaO2% (BldA) [Mass fraction] 99 % Dr. Paresh Carranza MD Work Phone: [facility] 11-08-2024 10:40-0400 Systolic blood pressure 125 mm[Hg] Dr. Paresh Carranza MD Work Phone: [facility] 10-28-2023 15:47-0400 Body height 175.[address] Paresh Carranza Work Phone: [facility] 10-28-2023 15:47-0400 Body mass index (BMI) [Ratio] 25.5 kg/m2 Dr. Paresh Carranza Work Phone: [facility] 10-28-2023 15:47-0400 Body weight 78.[address] Paresh Carranza Work Phone: [facility] 10-28-2023 15:47-0400 Diastolic blood pressure 83 mm[Hg] Dr. Paresh Carranza Work Phone: [facility] 10-28-2023 15:47-0400 Heart rate 60 /min Dr. Paresh Carranza Work Phone: [facility] 10-28-2023 15:47-0400 Respiratory rate 16 /min Dr. Paresh Carranza Work Phone: [facility] 10-28-2023 15:47-0400 Systolic blood pressure 153 mm[Hg] Dr. Paresh Carranza Work Phone: [facility] 06-23-2023 17:17-0500 Body temperature 97.3 [degF] Dr. Paresh Carranza Work Phone: [facility] 06-23-2023 17:17-0500 Diastolic blood pressure 77 mm[Hg] Dr. Paresh Carranza Work Phone: [facility] 06-23-2023 17:17-0500 Heart rate 75 /min Dr. Paresh Carranza Work Phone: [facility] 06-23-2023 17:17-0500 Respiratory rate 16 /min Dr. Paresh Carranza Work Phone: [facility] 06-23-2023 17:17-0500 SaO2% (BldA) [Mass fraction] 97 % Dr. Paresh Carranza Work Phone: [facility] 06-23-2023 17:17-0500 Systolic blood pressure 159 mm[Hg] Dr. Paresh Carranza Work Phone: [facility] 06-23-2023 13:31-0500 Body height 175.[address] Paresh Carranza Work Phone: [facility] 06-23-2023 13:31-0500 Body mass index (BMI) [Ratio] 22.8 kg/m2 Dr. Paresh Carranza Work Phone: [facility] 06-23-2023 13:31-0500 Body weight [address] Paresh Carranza Work Phone: [facility] 04-23-2023 10:51-0400 Body height 175.3 cm Viktoriya Marcial MD Work Phone: [facility] 04-23-2023 10:51-0400 Body weight 70.31 kg Viktoriya Marcial MD Work Phone: [facility] 04-23-2023 10:51-0400 Diastolic blood pressure 70 mm[Hg] Viktoriya Marcial MD Work Phone: [facility] 04-23-2023 10:51-0400 Heart rate 60 /min Viktoriya Marcial MD Work Phone: [facility] 04-23-2023 10:51-0400 SaO2% (BldA) [Mass fraction] 96 % Viktoriya Marcial MD Work Phone: [facility] 04-23-2023 10:51-0400 Systolic blood pressure 124 mm[Hg] Viktoriya Marcial MD Work Phone: [facility] 03-31-2023 15:59-0400 Body weight 70.[address] Paresh Carranza Work Phone: [facility] 03-31-2023 15:59-0400 Diastolic blood pressure 83 mm[Hg] Dr. Paresh Carranza Work Phone: [facility] 03-31-2023 15:59-0400 Heart rate 59 /min Dr. Paresh Carranza Work Phone: [facility] 03-31-2023 15:59-0400 Respiratory rate 16 /min Dr. Paresh Carranza Work Phone: [facility] 03-31-2023 15:59-0400 Systolic blood pressure 142 mm[Hg] Dr. Paresh Carranza Work Phone: [facility] 03-31-2023 15:57-0400 Body height 175.[address] Paresh Carranza Work Phone: [facility] 09-09-2022 16:04-0500 Body height 175.[address] Paresh Carranza Work Phone: [facility] 09-09-2022 15:44-0500 Body mass index (BMI) [Ratio] 24.3 kg/m2 Dr. Paresh Carranza Work Phone: [facility] 09-09-2022 15:44-0500 Body weight 74.[address] Paresh Carranza Work Phone: [facility] 09-09-2022 15:44-0500 Diastolic blood pressure 85 mm[Hg] Dr. Paresh Carranza Work Phone: [facility] 09-09-2022 15:44-0500 Heart rate 60 /min Dr. Paresh Carranza Work Phone: [facility] 09-09-2022 15:44-0500 Respiratory rate 18 /min Dr. Paresh Carranza Work Phone: [facility] 09-09-2022 15:44-0500 SaO2% (BldA) [Mass fraction] 99 % Dr. Paresh Carranza Work Phone: [facility] 09-09-2022 15:44-0500 Systolic blood pressure 154 mm[Hg] Dr. Paresh Carranza Work Phone: [facility] 06-03-2022 15:41-0400 Body mass index (BMI) [Ratio] 23.6 kg/m2 Dr. Paresh Carranza Work Phone: [facility] 06-03-2022 15:41-0400 Body weight 72.[address] Paresh Carranza Work Phone: [facility] 06-03-2022 15:41-0400 Diastolic blood pressure 78 mm[Hg] Dr. Paresh Carranza Work Phone: [facility] 06-03-2022 15:41-0400 Heart rate 60 /min Dr. Paresh Carranza Work Phone: [facility] 06-03-2022 15:41-0400 Respiratory rate 14 /min Dr. Paresh Carranza Work Phone: [facility] 06-03-2022 15:41-0400 Systolic blood pressure 159 mm[Hg] Dr. Paresh Carranza Work Phone: [facility] 01-09-2022 08:34-0400 Body height 175.[address] Reshma Arreola Work Phone: [facility] Work Phone: 01-09-2022 08:34-0400 Body mass index (BMI) [Ratio] 23.7 kg/m2 Dr. Reshma Arreola Work Phone: [facility] Work Phone: 01-09-2022 08:34-0400 Body temperature 98.7 [degF] Dr. Reshma Arreola Work Phone: [facility] Work Phone: 01-09-2022 08:34-0400 Body weight 72.[address] Reshma Arreola Work Phone: [facility] Work Phone: 01-09-2022 08:34-0400 Diastolic blood pressure 80 mm[Hg] Dr. Reshma Arreola Work Phone: [facility] Work Phone: 01-09-2022 08:34-0400 Heart rate 60 /min Dr. Reshma Arreola Work Phone: [facility] Work Phone: 01-09-2022 08:34-0400 Respiratory rate 16 /min Dr. Reshma Arreola Work Phone: [facility] Work Phone: 01-09-2022 08:34-0400 SaO2% (BldA) [Mass fraction] 99 % Dr. Reshma Arreola Work Phone: [facility] Work Phone: 01-09-2022 08:34-0400 Systolic blood pressure 138 mm[Hg] Dr. Reshma Arreola Work Phone: [facility] Work Phone: 01-02-2022 10:05-0400 Body mass index (BMI) [Ratio] 24.7 kg/m2 Dr. Reshma Arreola Work Phone: [facility] Work Phone: 01-02-2022 10:05-0400 Body temperature 97.8 [degF] Dr. Reshma Arreola Work Phone: [facility] Work Phone: 01-02-2022 10:05-0400 Body weight 76.[address] Reshma Arreola Work Phone: [facility] Work Phone: 01-02-2022 10:05-0400 Diastolic blood pressure 82 mm[Hg] Dr. Reshma Arreola Work Phone: [facility] Work Phone: 01-02-2022 10:05-0400 Heart rate 61 /min Dr. Reshma Arreola Work Phone: [facility] Work Phone: 01-02-2022 10:05-0400 Respiratory rate 14 /min Dr. Reshma Arreola Work Phone: [facility] Work Phone: 01-02-2022 10:05-0400 SaO2% (BldA) [Mass fraction] 99 % Dr. Reshma Arreola Work Phone: [facility] Work Phone: 01-02-2022 10:05-0400 Systolic blood pressure 138 mm[Hg] Dr. Reshma Arreoal Work Phone: [facility] Work Phone: 01-02-2022 10:05-0400 Body height 175.[address] Reshma Arreola Work Phone: [facility] Work Phone: 01-02-2022 10:05-0400 Body mass index (BMI) [Ratio] 24.7 kg/m2 Dr. Reshma Arreola Work Phone: [facility] Work Phone: 01-02-2022 10:05-0400 Body temperature 97.8 [degF] Dr. Reshma Arreola Work Phone: [facility] Work Phone: 01-02-2022 10:05-0400 Body weight 76.[address] Reshma Arreola Work Phone: [facility] Work Phone: 01-02-2022 10:05-0400 Diastolic blood pressure 82 mm[Hg] Dr. Reshma Arreola Work Phone: [facility] Work Phone: 01-02-2022 10:05-0400 Heart rate 61 /min Dr. Reshma Arreola Work Phone: [facility] Work Phone: 01-02-2022 10:05-0400 Respiratory rate 14 /min Dr. Reshma Arreola Work Phone: [facility] Work Phone: 01-02-2022 10:05-0400 SaO2% (BldA) [Mass fraction] 99 % Dr. Reshma Arreola Work Phone: [facility] Work Phone: 01-02-2022 10:05-0400 Systolic blood pressure 138 mm[Hg] Dr. Reshma Arreola Work Phone: [facility] Work Phone: 11-27-2021 21:02-0400 Heart rate 78 /min Dr. Reshma Arreola Work Phone: [facility] Work Phone: 11-27-2021 21:02-0400 Respiratory rate 17 /min Dr. Reshma Arreola Work Phone: [facility] Work Phone: 11-27-2021 21:02-0400 SaO2% (BldA) [Mass fraction] 99 % Dr. Reshma Arreola Work Phone: [facility] Work Phone: 11-27-2021 20:23-0400 Body height 175.[address] Reshma Arreola Work Phone: [facility] Work Phone: 11-27-2021 20:23-0400 Body mass index (BMI) [Ratio] 24.3 kg/m2 Dr. Reshma Arreola Work Phone: [facility] Work Phone: 11-27-2021 20:23-0400 Body temperature 96.3 [degF] Dr. Reshma Arreola Work Phone: [facility] Work Phone: 11-27-2021 20:23-0400 Body weight 74.[address] Reshma Arreola Work Phone: [facility] Work Phone: 11-27-2021 20:23-0400 Diastolic blood pressure 89 mm[Hg] Dr. Reshma Arreola Work Phone: [facility] Work Phone: 11-27-2021 20:23-0400 Systolic blood pressure 166 mm[Hg] Dr. Reshma Arreola Work Phone: [facility] Work Phone: 10-11-2021 13:57-0500 Body mass index (BMI) [Ratio] 25.2 kg/m2 Dr. Reshma Arreola Work Phone: [facility] Work Phone: 10-11-2021 13:57-0500 Body weight 77.[address] Reshma Arreola Work Phone: [facility] Work Phone: 10-11-2021 13:57-0500 Diastolic blood pressure 76 mm[Hg] Dr. Reshma Arreola Work Phone: [facility] Work Phone: 10-11-2021 13:57-0500 Heart rate 80 /min Dr. Reshma Arreola Work Phone: [facility] Work Phone: 10-11-2021 13:57-0500 Respiratory rate 18 /min Dr. Reshma Arreola Work Phone: [facility] Work Phone: 10-11-2021 13:57-0500 SaO2% (BldA) [Mass fraction] 100 % Dr. Reshma Arreola Work Phone: [facility] Work Phone: 10-11-2021 13:57-0500 Systolic blood pressure 138 mm[Hg] Dr. Reshma Arreola Work Phone: [facility] Work Phone: 10-11-2021 12:57-0500 Body height 175.[address] Reshma Arreola Work Phone: [facility] Work Phone: 10-11-2021 12:57-0500 Body mass index (BMI) [Ratio] 25.2 kg/m2 Dr. Reshma Arreola Work Phone: [facility] Work Phone: 10-11-2021 12:57-0500 Body weight 77.[address] Reshma Arreola Work Phone: [facility] Work Phone: 10-11-2021 12:57-0500 Diastolic blood pressure 76 mm[Hg] Dr. Reshma Arreola Work Phone: [facility] Work Phone: 10-11-2021 12:57-0500 Heart rate 80 /min Dr. Reshma Arreola Work Phone: [facility] Work Phone: 10-11-2021 12:57-0500 Respiratory rate 18 /min Dr. Reshma Arreola Work Phone: [facility] Work Phone: 10-11-2021 12:57-0500 SaO2% (BldA) [Mass fraction] 100 % Dr. Reshma Arreola Work Phone: [facility] Work Phone: 10-11-2021 12:57-0500 Systolic blood pressure 138 mm[Hg] Dr. Reshma Arreola Work Phone: [facility] Work Phone: 09-19-2021 08:42-0500 Body mass index (BMI) [Ratio] 25.1 kg/m2 Dr. Reshma Arreola Work Phone: [facility] Work Phone: 09-19-2021 08:42-0500 Body temperature 98.6 [degF] Dr. Reshma Arreola Work Phone: [facility] Work Phone: 09-19-2021 08:42-0500 Body weight 77.[address] Reshma Arreola Work Phone: [facility] Work Phone: 09-19-2021 08:42-0500 Diastolic blood pressure 73 mm[Hg] Dr. Reshma Arreola Work Phone: [facility] Work Phone: 09-19-2021 08:42-0500 Heart rate 61 /min Dr. Reshma Arreola Work Phone: [facility] Work Phone: 09-19-2021 08:42-0500 Respiratory rate 16 /min Dr. Reshma Arreola Work Phone: [facility] Work Phone: 09-19-2021 08:42-0500 SaO2% (BldA) [Mass fraction] 99 % Dr. Reshma Arreola Work Phone: [facility] Work Phone: 09-19-2021 08:42-0500 Systolic blood pressure 124 mm[Hg] Dr. Reshma Arreola Work Phone: [facility] Work Phone: 09-03-2021 07:58-0500 Body mass index (BMI) [Ratio] 25.4 kg/m2 Dr. Reshma Arreola Work Phone: [facility] Work Phone: 09-03-2021 07:58-0500 Body temperature 97.4 [degF] Dr. Reshma Arreola Work Phone: [facility] Work Phone: 09-03-2021 07:58-0500 Body weight 78.[address] Reshma Arreola Work Phone: [facility] Work Phone: 09-03-2021 07:58-0500 Diastolic blood pressure 70 mm[Hg] Dr. Reshma Arreola Work Phone: [facility] Work Phone: 09-03-2021 07:58-0500 Heart rate 71 /min Dr. Reshma Arreola Work Phone: [facility] Work Phone: 09-03-2021 07:58-0500 Respiratory rate 16 /min Dr. Reshma Arreola Work Phone: [facility] Work Phone: 09-03-2021 07:58-0500 SaO2% (BldA) [Mass fraction] 99 % Dr. Reshma Arreola Work Phone: [facility] Work Phone: 09-03-2021 07:58-0500 Systolic blood pressure 124 mm[Hg] Dr. Reshma Arreola Work Phone: [facility] Work Phone: 08-15-2021 13:39-0500 Body temperature 96.7 [degF] Dr. Reshma Arreola Work Phone: [facility] Work Phone: 08-15-2021 13:39-0500 Body weight 81.[address] Reshma Arreola Work Phone: [facility] Work Phone: 08-15-2021 13:39-0500 Diastolic blood pressure 78 mm[Hg] Dr. Reshma Arreola Work Phone: [facility] Work Phone: 08-15-2021 13:39-0500 Heart rate 69 /min Dr. Reshma Arreola Work Phone: [facility] Work Phone: 08-15-2021 13:39-0500 Respiratory rate 16 /min Dr. Reshma Arreola Work Phone: [facility] Work Phone: 08-15-2021 13:39-0500 SaO2% (BldA) [Mass fraction] 99 % Dr. Reshma Arreola Work Phone: [facility] Work Phone: 08-15-2021 13:39-0500 Systolic blood pressure 150 mm[Hg] Dr. Reshma Arreola Work Phone: [facility] Work Phone: Encounters Encounter Date Encounter Type Care Provider Facility Start: 07-08-2025 ambulatory Paresh Tere Facility:[facility] Start: 07-05-2025 ambulatory Va Hospitalelsen Facility:[facility] Start: 06-13-2025 Encounter for other preprocedural examination Paresh Carranza [facility] Start: 06-13-2025 ambulatory Va Hospitalelsen Facility:[facility] Start: 06-01-2025 ambulatory PARESH CARRANZA Facility :[facility] Start: 05-24-2025 End: 05-24-2025 ambulatory Va Hospitalelsen Facility:[facility] Start: 05-19-2025 End: 05-19-2025 ambulatory Jairon Strickland Facility:[facility] Start: 05-10-[address] Paresh Carranza MD Work Phone: [facility] Start: 05-10-2025 Patient encounter procedure Jairo LITTLE -Laboratory Work Phone: Start: 05-10-2025 End: 05-10-2025 Patient encounter procedure Jairo LITTLE -[facility] Work Phone: Start: 05-10-2025 End: 05-10-2025 Patient encounter status Jairo HUSTONC [facility] Start: 05-10-2025 End: 05-10-[address] Paresh Carranza MD Work Phone: -[facility] Start: 05-10-2025 End: 05-10-2025 ambulatory Jairo Grande Facility:[facility] Start: 04-20-2025 End: 04-20-[address] Deangelo Rojas DO -[facility] Work Phone: Start: 04-20-2025 End: 04-20-[address] Paresh Carranza MD Work Phone: [facility] Start: 04-15-2025 End: 04-15-[address] Paresh Carranza MD Work Phone: -[facility] Start: 04-15-2025 End: 04-15-[address] Deangelo Rojas DO [facility] Work Phone: Start: 04-15-2025 End: 04-15-2025 ambulatory Paresh Carranza Facility:[facility] Start: 04-11-2025 End: 04-11-[address] Deangelo Rojas DO -[facility] Work Phone: Start: 04-11-2025 End: 04-11-[address] Paresh Carranza MD Work Phone: [facility] Start: 02-02-2025 End: 02-02-[address] Paresh Carranza MD Work Phone: -Physical Therapy Start: 02-02-2025 End: 02-02-[address] Deangelo Rojas DO -Physical Therapy Work Phone: Start: 01-05-2025 End: 01-05-2025 Patient encounter procedure Jairo Grande IT APPLICATIONS ANALYST-C -[facility] Work Phone: Start: 01-05-2025 End: 01-05-[address] Paresh Carranza MD Work Phone: [facility] Work Phone: Start: 12-31-2024 End: 12-31-[address] Chevy Rooney MD -[facility] Start: 12-31-2024 End: 12-31-[address] Paresh Carranza MD Work Phone: [facility] Work Phone: Start: 11-16-2024 ambulatory Chevy Rooney Facility:[facility] Start: 11-16-2024 Non-patient / Non-visit Dr. Stephanie AMBROSIO -[facility] Start: 11-16-2024 End: 11-16-[address] Paresh Carranza MD Work Phone: [facility] Work Phone: Start: 11-16-2024 End: 11-16-2024 Patient encounter procedure Jairo Grande IT APPLICATIONS ANALYST-C -Cardiovascular Services Work Phone: Start: 11-16-2024 End: 11-16-2024 ambulatory Jairo Serrato Christiane Facility:[facility] Start: 11-08-2024 End: 11-08-2024 Patient encounter procedure Jairo Grande IT APPLICATIONS ANALYST-C -Laboratory Work Phone: Start: 11-08-2024 End: 11-08-2024 ambulatory Chevy Rooney Facility:[facility] Start: 11-08-2024 End: 11-08-[address] Paresh Carranza MD Work Phone: [facility] Work Phone: Start: 11-08-2024 End: 11-08-2024 Patient encounter procedure Argenis Mcgee [facility] Work Phone: Start: 11-08-2024 End: 11-08-2024 ambulatory Jairo Grande Facility:[facility] Start: 10-21-2024 End: 10-21-[address] Paresh Carranza MD Work Phone: [facility] Work Phone: Start: 10-21-2024 End: 10-21-[address] Paresh Carranza MD -Outpatient [facility] Densitometry Work Phone: Start: 10-21-2024 End: 10-21-2024 ambulatory Paresh Carranza Facility:[facility] Start: 11-25-2023 End: 11-25-2023 Transcribe Orders Gladys Han Work Phone: [facility] Comment on above: Dyspnea, unspecified type Start: 11-20-2023 End: 11-20-[address] Paresh Carranza Work Phone: [facility] Work Phone: Start: 11-20-2023 End: 11-20-[address] Paresh Carranza Work Phone: [facility]-Laboratory Work Phone: Start: 10-28-2023 End: 10-28-[address] Paresh Carranza Work Phone: [facility] Work Phone: Start: 09-15-2023 End: 09-15-[address] Paresh Carranza Work Phone: [facility] Work Phone: Start: 09-15-2023 End: 09-15-[address] Paresh Carranza Work Phone: [facility]-Laboratory Work Phone: Start: 08-07-2023 End: 08-07-[address] Paresh Carranza Work Phone: [facility] Work Phone: Start: 07-09-2023 End: 07-09-[address] Paresh Carranza Work Phone: [facility] Work Phone: Start: 06-23-2023 End: 06-23-2023 Admission to same day surgery center Dr. Paresh Carranza Work Phone: [facility]-Surgical Day Care Start: 06-23-2023 End: 06-23-[address] Paresh Carranza Work Phone: [facility] Work Phone: Start: 06-20-2023 Follow-up encounter Viktoriya Marcial MD Work Phone: [facility] Start: 06-20-2023 Patient encounter procedure Viktoriya Marcial MD Work Phone: [facility] Start: 06-19-2023 End: 06-20-2023 Evaluation and management of inpatient PARESH CARRANZA Facility:[facility] Start: 06-16-2023 End: 06-16-2023 ambulatory PARESH CARRANZA Facility:[facility] Start: 06-12-2023 End: 06-12-2023 Non-patient / Non-visit Dr. Paresh Carranza Work Phone: [facility] Work Phone: Start: 05-19-2023 End: 05-19-[address] Paresh Carranza Work Phone: [facility] Work Phone: Start: 05-19-2023 End: 05-19-[address] Paresh Carranza Work Phone: [facility] Start: 04-23-2023 End: 04-23-2023 ambulatory VIKTORIYA MARCIAL Facility:[facility] Start: 04-23-2023 End: 04-23-2023 Patient encounter procedure Viktoriya Marcial MD Work Phone: [facility] Card[facility] [place] Comment on above: Pacemaker lead malfu nction, initial encounter (Primary Dx); Presence of cardiac pacemaker; Sinus node dysfunction (HCC); Paroxysmal atrial fibrillation (HCC) Start: 03-31-2023 End: 03-31-[address] Paresh Carranza Work Phone: [facility] Work Phone: Start: 03-31-2023 End: 03-31-[address] Paresh Carranza Work Phone: [facility]-Radiology, [facility] Work Phone: Start: 03-31-2023 End: 03-31-[address] Paresh Carranza Work Phone: [facility] Work Phone: Start: 03-12-2023 End: 03-12-[address] Paresh Carranza Work Phone: [facility] Work Phone: Start: 03-12-2023 End: 03-12-[address] Paresh Carranza Work Phone: [facility] Start: 03-05-2023 End: 03-05-[address] Paresh Carranza Work Phone: [facility] Work Phone: Start: 03-05-2023 End: 03-05-[address] Paresh Carranza Work Phone: [facility]-Cat Scan, [facility] Work Phone: Start: 12-26-2022 End: 12-26-[address] Paresh Carranza Work Phone: [facility] Work Phone: Start: 12-26-2022 End: 12-26-[address] Paresh Carranza Work Phone: [facility]-Radiology, [facility] Work Phone: Start: 12-16-2022 End: 12-16-[address] Paresh Carranza Work Phone: [facility] Work Phone: Start: 11-18-2022 End: 11-18-[address] Paresh Carranza Work Phone: [facility] Work Phone: Start: 11-18-2022 End: 11-18-[address] Paresh Carranza Work Phone: [facility] Start: 10-03-2022 End: 10-03-[address] Paresh Carranza Work Phone: [facility] Work Phone: Start: 10-03-2022 End: 10-03-[address] Paresh Carranza Work Phone: [facility] Start: 09-09-2022 End: 09-09-[address] Paresh Carranza Work Phone: [facility] Work Phone: Start: 09-09-2022 End: 09-09-[address] Paresh Carranza Work Phone: [facility] Start: 09-09-2022 End: 09-09-[address] Paresh Carranza Work Phone: [facility] Start: 06-03-2022 End: 06-03-[address] Paresh Carranza Work Phone: [facility] Start: 05-20-2022 End: 05-20-2022 ambulatory [facility] Work Phone: Start: 05-20-2022 End: 05-20-2022 Patient encounter procedure [facility] Start: 01-31-2022 End: 01-31-[address] Reshma Arreola Work Phone: [facility] Start: 01-09-2022 End: 01-09-[address] Reshma Arreola Work Phone: [facility], Spec[facility] Start: 01-09-2022 End: 01-09-[address] Reshma Arreola Work Phone: [facility] Start: 01-02-2022 End: 01-02-[address] Reshma Arreola Work Phone: [facility]-Laboratory, [facility] Start: 01-02-2022 End: 01-02-[address] Reshma Arreola Work Phone: [facility] Start: 12-07-2021 End: 12-07-[address] Reshma Arreola Work Phone: [facility] Start: 11-27-2021 End: 11-27-2021 Emergency department patient visit Dr. Reshma Arreola Work Phone: [facility]-Emergency Department Start: 11-22-2021 End: 11-22-[address] Reshma Arreola Work Phone: [facility] Start: 11-22-2021 End: 11-22-[address] [facility] Start: 11-08-2021 Non-patient / Non-visit Dr. Kaya Arreola Work Phone: [facility] Start: 11-08-2021 End: 11-08-[address] Reshma Arreola Work Phone: [facility]-Cardiovascul ar Services Start: 10-30-2021 Non-patient / Non-visit Dr. Kaya Arreola Work Phone: [facility] Start: 10-29-2021 End: 10-29-[address] Reshma Arreola Work Phone: [facility]-Cardiovascul ar Services Start: 10-11-2021 End: 10-11-[address] Reshma Arreola [facility] Start: 10-11-2021 End: 10-11-[address] Reshma Arreola Work Phone: [facility] Start: 10-08-2021 End: 10-08-[address] Reshma Arreola Work Phone: [facility] Start: 09-19-2021 End: 09-19-[address] Reshma Arreola [facility] Start: 09-10-2021 End: 09-10-[address] Reshma Arreola Work Phone: [facility] Start: 09-03-2021 End: 09-03-[address] Reshma Arreola Work Phone: [facility]iology Start: 09-03-2021 End: 09-03-[address] Reshma Arreola Work Phone: [facility] Start: 08-15-2021 Non-patient / Non-visit Dr. Kaya Arreola Work Phone: [facility] Start: 08-15-2021 End: 08-15-[address] Reshma Arreola Work Phone: [facility]-Cardiovascul ar Services Start: 08-10-2021 End: 08-10-[address] Reshma Arreola Work Phone: [facility] Start: 08-31-2020 Patient encounter procedure HARINDER ROSENBAUM Facility:[facility] Start: 08-16-2020 Patient encounter procedure HARINDER ROSENBAUM Facility:[facility] Start: 06-16-2020 Patient encounter procedure HARINDER CHOWDHURYCHETANOrin Facility:[facility] Start: 05-22-2020 Patient encounter procedure Odalys [facility] Work Phone: Start: 05-19-2020 Patient encounter procedure Odalys [facility] Work Phone: Start: 05-17-2020 Patient encounter procedure Gladys Quach [facility] Work Phone: Start: 05-16-2020 Patient encounter procedure HARINDER CHOWDHURYCHETANOrin Facility:[facility] Start: 05-15-2020 Patient encounter procedure Gladys Quach [facility] Work Phone: Start: 05-12-2020 Patient encounter procedure Gladys Quach [facility] Work Phone: Start: 05-10-2020 Patient encounter procedure Gladys Quach [facility] Work Phone: Start: 05-08-2020 Patient encounter procedure Gladys Quach [facility] Work Phone: Start: 05-04-2020 Patient encounter procedure Gladys Quach [facility] Work Phone: Start: 04-03-2020 Patient encounter procedure HARINDER CHOWDHURYCHETANOrin Facility:[facility] Start: 03-01-2020 Patient encounter procedure HARINDER CHOWDHURYCHETANOrin Facility:[facility] Start: 02-29-2020 Patient encounter procedure Gladys Quach [facility] Work Phone: Start: 02-25-2020 Patient encounter procedure Gladys Quach [facility] Work Phone: Start: 02-23-2020 Patient encounter procedure Gladys Quach [facility] Work Phone: Start: 02-17-2020 Patient encounter procedure Gladys Quach [facility] Work Phone: Start: 02-15-2020 Patient encounter procedure Gladys Quach [facility] Work Phone: Start: 02-10-2020 Patient encounter procedure Gladys Quach [facility] Work Phone: Start: 02-08-2020 Patient encounter procedure Gladys Quach [facility] Work Phone: Start: 02-03-2020 Patient encounter procedure Gladys Quach [facility] Work Phone: Start: 02-02-2020 Patient encounter procedure HARINDER ROSENBAUM Facility:[facility] Start: 02-01-2020 Patient encounter procedure Gladys Quach [facility] Work Phone: Start: 01-25-2020 Patient encounter procedure Fartun Mendoza [facility] Work Phone: Start: 01-20-2020 Patient encounter procedure Fartun Mednoza [facility] Work Phone: Start: 01-17-2020 Patient encounter procedure Fartun Mendoza [facility] Work Phone: Start: 01-14-2020 Patient encounter procedure Fartun Mendoza [facility] Work Phone: Start: 01-12-2020 Patient encounter procedure Fartun Mendoza [facility] Work Phone: Start: 01-10-2020 Patient encounter procedure Fartun [facility] Work Phone: Start: 01-07-2020 Patient encounter procedure Fartun [facility] Work Phone: Start: 01-06-2020 Patient encounter procedure Fartun [facility] Work Phone: Start: 01-03-2020 Patient encounter procedure Fartun [facility] Work Phone: Start: 12-31-2019 Patient encounter procedure Yaa [facility] Work Phone: Start: 12-30-2019 Patient encounter procedure Yaa [facility] Work Phone: Procedures Date Procedure Procedure Detail [...] Radiologic exam ches t 2 views Gladys Han Work Phone: Start: 09-15-2023 Plain chest X-ray Dr. Tanner Carranza Work Phone: Start: 06-23-[address] Tanner Carranza Work Phone: Start: 06-20-2023 PACEMAKER CLINIC CHECK Viktoriya Marcial MD Work Phone: Start: 06-19-2023 Antibody screen PARESH MATHEW Comment on above: Order Comment: Speci men Type: BLOOD SPECIMENOrdering Facility: [facility] Address: [address] [place] [address] Performed By: #### T SCR ####[facility] BLOOD BANKCLIA [id number] [place] [address] [place] Start: 04-23-2023 Ecg [...] DTaP,Tdap,Td Vaccine (2 - Td or Tdap) [facility] Start: 06-20-2026 Diabetes Screening Diabetes Screenin g [facility] Start: 12-26-2025 Lipid 1996 panel - Serum or Plasma Lipid Screening [facility] Start: 12-26-2025 Lipid panel [facility] Start: 05-24-2025 MRI of lower extremity Extremi ty Lower without Contra [facility] Start: 05-24-2025 Patient encounter procedure Registered Clinical -Cat Scan [facility] Work Phone: Start: 05-19-2025 Patient encounter procedure Registered Clinical -Laboratory [place] Work Phone: Start: 05-10-2025 Hepatic function panel [facility] Start: 05-10-2025 Thyroid stimulating hormone measurement [facility] Start: 12-31-[address] [facility] Work Phone: Start: 12-31-2024 Plain x-ray of pelvi s and lower extremity HIP, UNI W/ Pelvis 2-3 Views [facility] Start: 12-31-2024 X-ray of lumbar spin e, two or three views Lumbar Spine 2 or 3 Views [facility] Start: 12-31-2024 XR Lumbar spine 2 or 3 Views [facility] Start: 12-31-2024 XR Pelvis and Hip Views [facility] Start: 04-23-2024 BP Controlled (<130/80) BP Controlled (<130/80) [facility] Start: 12-27-2023 Diabetes Screening Diabetes Screenin g [facility] Start: 06-23-2023 Patient discharge [facility] Start: 06-23-2023 Ambulation without limitation [facility] Start: 06-23-2023 Elevation of head of bed [facility] Start: 06-23-2023 Medical regimen orde rs management [facility] Start: 06-23-2023 Procedure discontinued [facility] Start: 06-23-2023 Taking patient vital signs [facility] Start: 06-23-2023 Vital signs measurements [facility] Start: 06-23-2023 Anesthesia nose & accessory sinuses nos ANESTH NOSE/SINUS SURGERY [facility] Start: 06-23-2023 Septoplasty/submucou s resecj w/wo cartilage grf REPAIR OF NASAL SEPTUM [facility] Start: 06-23-2023 Submucous rescj inferior turbinate prtl/compl RESECT INFERIOR TURBINATE [facility] Start: 06-23-2023 Medication education [facility] Start: 04-04-2023 Influenza vaccination Influenza Vacc ine (#1) [facility] Start: 04-01-2023 Patient referral [facility] Work Phone: Start: 08-04-2022 Advance Directive Discussion Advance Directive Discussion [facility] Start: 08-04-2022 Depression Assessment Depression Ass essment [facility] Start: 12-26-2021 Hepatitis B surface antibody level LDL Cholesterol [facility] Start: 09-15-2019 Colonoscopy Colonoscopy [facility] Start: 09-15-2019 Colorectal Cancer Screening Colorectal Cancer Screening [facility] Start: 2016 Pneumococcal vaccination Pneumococcal Vaccine(s) (65+ yrs) (2 of 2 - PPSV23 or PCV20) [facility] Start: 11-20-2015 Pneumococcal Vaccine : 65+ (2 - PPSV23 or PCV20) Pneumococcal Vaccine: 65+ (2 - PPSV23 or PCV20) [facility] Start: 2015 Pneumococcal vaccination Pneumococcal Vaccine(s) (65+ yrs) (1 of 1 - PCV) [facility] Start: 2010 Hepatitis B (HBV) Vaccine (optional start 60+ years) Hepatitis B (HBV) Vaccine (optional start 60+ years) [facility] Start: 2010 RSV Vaccine (1 - 1-dose 60+ series) RSV Vaccine (1 - 1-dose 60+ series) [facility] Start: 2010 RSV vaccine (optiona l 60+ years) RSV vaccine (optional 60+ years) [facility] Start: 2000 Shingles (RZV) Vacci ne (1 of 2) Shingles (RZV) Vaccine (1 of 2) [facility] Start: 2000 Shingrix Vaccine (1 of 2) Shingrix Vaccine (1 of 2) [facility] Start: 1995 Cologuard (FIT-DNA) Cologuard (FIT-D NA) [facility] Start: [address] COLONOGRAPHY [facility] Start: 1995 Fecal Occult Blood Fecal Occult Bloo d [facility] Start: 1995 Screening for malignant neoplasm of colon [facility] Start: 1995 [facility] Start: 1985 Lipid panel Cholesterol [facility] Start: 1980 Zoledronic acid therapy Alpha-1 Antitrypsin Deficiency Screening [facility] Start: 1969 Hepatitis A (HAV) Vaccine (optional start 19+ years) Hepatitis A (HAV) Vaccine (optional start 19+ years) [facility] Start: 1969 Shingrix Vaccine (1 of 2) Shingrix Vaccine (1 of 2) [facility] Start: 1969 Tetanus vaccination Tetanus (T d or Tdap) Booster [facility] Start: 1969 Urine microalbumin profile DTaP,Tdap,Td Vaccine (1 - Tdap) [facility] Start: 1968 Annual PCP Team Chronic Disease Visit Annual PCP Team Chronic Disease Visit [facility] Start: 1968 BP Controlled (<130/80) BP Controlled (<130/80) [facility] Start: 1968 Hepatitis C screening Hepatitis C An tibody [facility] Start: 1968 Spirometry Spirometry [facility] Start: 1968 Tetanus + diphtheria + acellular pertussis vaccine (product) Tdap Booster [facility] Start: 1955 Covid-19 Vaccine (#1) Covid-19 Vacci ne (#1) [facility] Start: 03-25-1951 Covid-19 Vaccine (#1) Covid-19 Vacci ne (#1) [facility] Start: 1950 Abdominal Aortic Aneurysm Screening Abdominal Aortic Aneurysm Screening [facility] Start: 1950 Screening for malignant neoplasm of colon Colonoscopy [facility] Basic metabolic 2008 panel with ionized calcium - Serum or Plasma [facility] CBC W Auto Differential panel - Blood [facility] Work Phone: CBC W Auto Differential panel - Blood [facility] Lipid 1996 panel - Serum or Plasma [facility] MR Lower Extremity Joint [facility] NM Heart Views W stress and W radionuclide IV [facility] Patient Education ED Contact Dermatitis [facility] Work Phone: Patient referral [facility] Work Phone: Thyroid stimulating hormone measurement [facility] Work Phone: US Heart [facility] Vitamin D, 25-hydrox y measurement [facility] Work Phone: [facility] Work Phone: [place] EP LAB NEGATED: Highlighted row has been ruled out! Planned Goals not documented [facility] Work Phone: Immunizations Immunization Date Immunization Notes Care Provider Fa cility 12-11-2019 tetanus toxoid, redu oliver diphtheria toxoid, and acellular pertussis vaccine, adsorbed Dr. Reshma Arreola Work Phone: [facility] 08-30-2016 influenza virus vaccine, unspecified formulation Viktoriya Marcial MD Work Phone: [facility] 2015 pneumococcal conjuga te vaccine, 13 valent Viktoriya Marcial MD Work Phone: [facility] Payers Date Payer Category Payer Self-pay [id number] 2020 Unknown MMO MMO MEDICARE SUPPLEMENT [id number] 2020-Present [phone] [address] [place] [address] Indemnity [id number] 2020 Unknown [id number] 2020 Unknown [id number] 2016 Unknown [id number] 2015 Medicare MEDICARE MEDICAR E A AND B [id number] 2015-Present [phone] [address] [address] [place] [address] Medicare [id number] 2015 Medicare [id number] 1950 Unknown [id number] 2..840.1.711801.3.579.2.594 1950 Unknown [id number] 2..840.1.525049.3.579.2.594 1950 Unknown [id number] 2.16.840.1.823235.3.579.2.594 1950 Unknown [id number] 2.840.1.776306.3.579.2.594 1950 Unknown [id number] 2.840.1.214219.3.579.2.594 1950 Unknown [id number] 2.840.1.480855.3.579.2.594 1950 Unknown [id number] 2.840.1.999147.3.579.2.594 Unknown [id number] Unknown [id number] 2.840.1.662485.3.579.2.462 Unknown [id number] 2.840.1.496723.3.579.2.462 Unknown [id number] 2.840.1.042493.3.579.2.462 Unknown [id number] 2.840.1.769786.3.579.2.462 Unknown [id number] 2.840.1.721653.3.579.2.462 Unknown [id number] 2.840.1.380223.3.579.2.462 Unknown [id number] 2.840.1.381074.3.579.2.462 Unknown [id number] 2.16.840.1.316322.3.579.2.462 Unknown [id number] 2.16.840.1.352048.3.579.2.462 Unknown [id number] 2.16.840.1.133135.3.579.2.462 Unknown [id number] 2.16.840.1.118826.3.579.2.462 Unknown [id number] 2.16.840.1.288001.3.579.2.462 Unknown [id number] 2.16.840.1.401771.3.579.2.462 Unknown [id number] 2.16.840.1.120666.3.579.2.462 Unknown [id number] 2.16.840.1.809063.3.579.2.462 Unknown [id number] 2.16.840.1.739523.3.579.2.462 Unknown [id number] 2.16.840.1.125726.3.579.2.462 Unknown [id number] 2.16.840.1.358308.3.579.2.462 Unknown [id number] 2.16.840.1.432667.3.579.2.462 Unknown [id number] 2.16.840.1.502188.3.579.2.462 Unknown [id number] 2.16.840.1.082468.3.579.2.462 Unknown [id number] 2.16.840.1.494858.3.579.2.462 Unknown [id number] 2.16.840.1.345495.3.579.2.462 Unknown [id number] 2.16.840.1.037258.3.579.2.462 Social History Date Type Detail Facility Assertion Tobacco smoking consumption unknown (finding) [facility] Work Phone: Start: 11-08-2021 End: 10-28-2023 Tobacco smoking status NHIS Unknown if ever smoked [facility] Start: 12-12-2020 None [facility] Start: 07-29-2019 Spouse/ Signif icant Other [facility] Start: 12-24-2020 Non-smoker [facility] Start: 1950 Sex Assigned At Male W [facility] Start: 05-01-2011 End: 06-16-2023 Tobacco smoking status NHIS Ex-smoker [facility] History of tobacco use Current smoker [facility] Start: 05-01-2011 End: 06-16-2023 Tobacco use and exposure Smokeless tobacco non-user [facility] Start: 04-23-2023 End: 06-20-2023 Alcohol intake Current drinker of alcohol (finding) [facility] Start: 04-23-2023 End: 06-20-2023 History of Social function [facility] Start: 04-23-2023 End: 06-20-2023 Tobacco use panel [facility] National Score (1-100), lower number is lower risk 69 [facility] Start: 09-13-2008 End: 06-16-2023 Tobacco Comment 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, quit early 1969 [facility] Start: 1950 Sex Assigned At Not on file C [facility] Start: 10-28-2023 Tobacco smoking stat us KYIS Never smoked tobacco (finding) [facility] Start: 10-29-2024 End: 11-19-2024 Sex Male (finding) [facility] Medical Equipment Procedure Code Equipment Code Equipment Origin al Text Equipment Identifier Dates Septoplasty, nose Plant polysacc haride haemostatic agent, bioabsorbable ([id number] FDA Start: 06-23-2023 Goals Date Patient Goal Desired Activity /State Functional Status Date Assessment Result Facility NEGATED: Highlighted row Functional performance Functional status health issues are not documented Disease [facility] Work Phone: Mental Status Date Assessment Result Facility 06-23-2023 Cognitive function Voice/Name [facility] Work Phone: 06-23-2023 Cognitive function Patient Orien tation Person;Place;Time [facility] Work Phone: 11-27-2021 Cognitive function Level Of Cons ciousness Awake;Alert;Appropriate ;Follows Commands [facility] Work Phone: NEGATED: Highlighted row Cognitive function [Interpretation] Cognitive status health issues are not documented [facility] Work Phone: Clinical Notes 12-08-2012 to 06-01-2025 Note Date & Type Note Facility 06-01-2025 Note HNO ID: [id number] Author: JAZMINE SWARTZ RT(R) Service: ? Author Type: Health Center Associate Type: Progress Notes Filed: 06/01/2025 15:55 Note Text: Radiology Service Progress Note PATIENT NAME: Brigette Holguin DATE OF SERVICE: June 01, 2025 TIME: 3:54 PM PATIENT IDENTITY VERIFICATION COMPLETED USING TWO (2) IDENTIFIERS: Name and Date of confirmed by patient verbally. FALL SCREENING: Has the patient had 2 falls in the last year or 1 fall with injury or currently using an Ambulatory Assistive Device (Walker, Cane, Wheelchair, Crutches, etc.)? No PATIENT GENDER DATA: Assigned male at PATIENT RELEVANT IMPLANT DATA REVIEWED: Not Applicable PATIENT PRESENTS WITH AN IMPLANTABLE OR ATTACHED POINT OF CARE TECHNICIAN: No RADIOLOGY DEPARTMENT: CT; Exam(s) Completed: Chest. Anesthesia: No PERIPHERAL IV DATA: Not applicable SIGNED BY: RT Abhilash(R) June 01, 2025 3:54 PM [facility] 04-20-2025 Progress note [facility] 04-20-2025 Progress note Note Date/Time April 20, 2025 3:55pm [facility] [address] [place] [address] OFFICE VISIT Date of Service: 04/20/25 MR#: [id number] Acct: [id number] Name: BRIGETTE HOLGUIN Rep #: [id number] : 1950 Provider: Dr. Grzegorz Rojas DO Age/Sex: 74/M Location: [facility] Status: Signed Intake Vital Signs 01/05/25 09:23 [...] tablet 25 mg PO DAILY #90 tabs 12/11/2504/20/25 Rx nitroglycerin 0.4 mg sublingual 0.4 mg [...] Carotid artery stenosis HLD (hyperlipidemia) Sinus bradycardia Kzqqr-Crjuvgxnu-Hqtgz (WPW) syndrome Sick sinus syndrome Old myocardial infarction BPH (benign prostatic hyperplasia) Atherosclerosis of coronary artery of [place] heart without angina pectoris Segmental and somatic [...] to ambulate. Dr. Landeros did prescribe him [place] but he doesn't like to take it [...] we will have to chevk with the smt operator and the MRI department to see if [...] fusion of L4-[address] Philip at [facility] who is now retiredover 10 years ago. He did have an intra-articular injection in the right hip by anterior approach by Dr. Israel at [facility] 11/25/24 which helped with his hip/groin pain [...] Xarelto. Plan:Patient is here today for right hip pain. I obtained and reviewed xrays today [...] bending over the hip or bending to bead picker anything heavy. I would need medical [...] fallen in the past year?: No 04/20/25 6472 <Electronically signed by Deangelo singh DO> Date _ Deangelo Rojas DO Cosigner Signature: Date (if applicable) CC: Dr. Paresh Carranza MD ~ [facility] Work Phone: 1(197) 126-479609-08-2025 Evaluation note* Diagnosis Onset Date Resolution Status [...] pacemaker 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, 2012 acute [facility] 2024 8:20am Pre-employment health screening examination acute May 8:20am Atherosclerosis of coronary artery of [place] heart without angina pectoris chronic May 10, 2025 8:20am History of coronary artery stent placement July 23, 2013 chronic May 10, 2025 8:20am Sick sinus syndrome chronic Octob er 2024 8:20am [facility] Work Phone: 1(346) 435-791109-08-2025 Evaluation note* Diagnosis Onset Date Resolution Status [...] sinus syndrome chronic Octob er 2024 8:20am Vmprz-Xmouzfwoz-Vtnvz (WPW) syndrome chronic May 10 8:20am History [...] sinus syndrome chronic Octob er 2024 8:20am [facility] Work Phone: 1([phone]) 390-102107-07-2025 Discharge summary Author Rosa Maria Davies [facility] Note Date/Time February 07, 2025 3:44p m [facility] Physical Therapy [facility] [place] [address] / REHABILITATION SERVICES DISCHARGE SUMMARY MR#: [id number] Acct: [id number] Name: BRIGETTE HOLGUIN Rep #: [id number] : 1950 74 From: Rosa Maria Guevara Referring Dr.: Dr. Deangelo Rojas, DO Status: REG RCR Insurance: MEDICARE PART A B [facility] Patient Information Patient Information: BRIGETTE HOLGUIN [...] DO; Dr. Paresh Carranza MD ~ Signed [facility] Work Phone: 1(710) 287-100107-07-2025 Discharge summary [facility] Physical Therapy [address] [place] [address] / REHABILITATION SERVICES DISCHARGE SUMMARY MR#: [id number] Acct: [id number] Name: BRIGETTE HOLGUIN Rep #: [id number] : 1950 74 From: Rosa Maria Davies MP T Referring Dr.: Dr. Deangelo Rojas DO Status: REG RCR Insurance: MEDICARE PART A B [facility] Patient Information Patient Information: BRIGETTE HOLGUIN [...] the physician. Thank you! Rosa Maria Davies, MPT Balance/Gait/Functional tests Balance/Special Test Scores Lower Extremity Functional Score: 26 02/07/25 1544 CC: Dr. Deangelo Rojas DO; Dr. Paresh Carranza MD ~ Signed [facility]06-04-2025 Progress [facility] Heart [facility] [address] [place] [address] OFFICE VISIT Date of Service: 01/05/25 MR#: [id number] Acct: [id number] Name: BRIGETTE HOLGUIN Rep #: [id number] : 1950 Provider: ANABEL Grande Age/Sex: 74/M Location: [facility] Status: Signed HPI HPI History of Present Illness Details: Mr. Holguin is a 74-year-old white male, who presents today for outpatient cardiovascular followup. As you know, he has a history of hypertension, hypercholesterolemia, paroxysmal atrial fibrillation, coronary artery disease status post angioplasty and drug-eluting stenting to the LAD at [facility] on 07/23/13. At that time he received [...] NIBP Intake Visit Reasons: 2-3 M FU [employer] Licensee Required: No Accompanied by: Is patient in [...] tablet 25 mg PO DAILY #90 tabs 11/2501/05/25 Rx nitroglycerin 0.4 mg sublingual 0.4 [...] Carotid artery stenosis HLD (hyperlipidemia) Sinus bradycardia Stoqj-Ntvhacgfy-Uhrut (WPW) syndrome Sick sinus syndrome Old myocardial infarction BPH (benign prostatic hyperplasia) Atherosclerosis of coronary artery of [place] heart without angina pectoris Segmental and somatic [...] Paroxysmal atrial fibrillation: Status: Chronic Plan: His FZT2JY0-RZLs score is 6/7. He was asked to [...] lumbar surgery Follow Up: Keep as is (EMPLOYEE RELATIONS SPECIALIST) 05/12/25 (IT APPLICATIONS ANALYST/PA with Jazlyn) Coding Level of Care Code [...] Ejection fraction %: 65 01/05/25 1003 P IT APPLICATIONS ANALYST-C> Date _ Jairo H Roof IT APPLICATIONS ANALYST IT APPLICATIONS ANALYST-C Cosigner Signature: Date (if applicable) CC: Dr. Paresh Carranza MD ~ [facility]05-30-2025 Evaluation note* Diagnosis Onset Date Resolution Status [...] atrial fibrillation chronic January 05, 2025 9:18am [facility] Work Phone: [phone]) [phone] Evaluation note* Diagnosis Onset Date Resolution Status [...] of coronary artery stent placement July 23, 2013January 05, 2025 9:18am HLD (hyperlipidemia) chronic January 05, 2025 9:18am Paroxysmal atrial fibrillation chronic January 05, 2025 9 :18am Degenerative joint disease of right hip acute April 112024 3:46pm Greater trochanteric bursitis of right hip acute April 11, 2025 3:46pm Lumbar radiculopathy acute Apr 3:46pm Right lumbar radiculitis acute April 11, 2025 3:46pm Degenerative joint disease of right hip acute April 042024 3:32pm [facility] Work Phone: [phone]) 614-188411-20-2023 Discharge summary Author Thierry Pepe [facility] June 23, 2023 3:09pm Note Date/Time June 23, 2023 3:09pm [facility] Medical Records Department [address] [place] [address] Discharge Summary 06/23/23 1508 MR#: [id number] Acct: [id number] Name: BRIGETTE HOLGUIN Rep #:[id number] : 1950 72 From: Thierry Pepe MD PCP: Dr. Paresh Carranza MD Status:REG S [place] Location: [place] [address] Providers Primary Care Physician: Dr. Paresh Carranza [...] Pepe MD; Dr. Paresh Carranza MD~ Signed [facility] Work Phone: [phone]) 116-387711-20-2023 Procedure [facility] 06-20-2023 NoteHNO ID: [id number] Author: Maribel Pretty RN Service: Care Management [...] the process utilized to ensure compliance with [facility] policy regarding Inpatient Admission and Observation Services. [...] treating physician's order as documented evidence of concurrence.[facility]11-17-2023 Note HNO ID: [id number] Author: Iva Perez, RN Service: Electrophysiology Author Type: Registered Nurse Type: Progress Notes Filed: 06/20/2023 2:57 PM Note Text: Stable PM function. Teaching completed. To have follow up in [place] [facility]. Jaswant [facility]11-16-2023 NoteHNO ID: [id number] Author: Emilio ([employer])Mariza Service: Pharmacy Author Type: Health Center Associate Type: Plan of Care Filed: 06/19/2023 3:20 PM Note Text: PHARMACY MEDICATION REVIEW Patient Name: Brigette Holguin : 1950 The following medications were updated within the MEDICAL DEVICE medication list: Medications ADDED to MEDICAL DEVICE medication list Medications CHANGED on MEDICAL DEVICE medication list Medications REMOVED from MEDICAL DEVICE medication list meloxicam (MOBIC) 15 mg tablet [...] medication history: Yes Medication history completed by: Health Center Associate: Mariza Jhaveri ([employer]) Source of history: Patient: Reliability of source: Appears reliable, clearly identified: Medication name, Medication dose, Medication route, and Medication frequency, Pharmacy records: e-scripts/dispense report, and [facility] records Medication nonadherence identified: No barriers noted Reconciliation completed: No, pharmacist not yet reviewed Patient interested in Bedside Delivery Services or using CC OP Pharmacy at discharge? Unable to assess Preferred outpatient pharmacy: [facility] [address] [place] [address] - [address] - [phone] Allergies: Oxybutynin Shortness of Breath Sulfasalazine Rash [...] mouth once daily. Facility-Administered Medications: None Mariza Jhaveri (Queen Producer)[id number] 06/19/2023[facility]11-16-2023 NoteHNO ID: [id number] Author: Nic Chu MD Service: Anesthesiology Author [...] well with no complications SIGNATURE: Ange Crouch APRN.CRNA PATIENT NAME: Brigette Holguin DATE: June 19, 2023 TIME: 9:16 AM [facility]: [id number] NoteHNO ID: [id number] Author: Ange Crouch APRN.CRNA Service: Anesthesiology Author Type: Nurse Mental Hygiene Consultant Type: Anesthesia Procedure Notes Filed: 06/19/2023 9:16 AM Note Text: ANESTHESIOLOGY PROCEDURE NOTE Airway General Information Procedure Start Time/Medication Administration: 06/19/2023 8:54 AM Staffing FRAME POLISHER: Ange Crouch APRN.FRAME POLISHER Performed by: JARRETT Indications and Patient Condition Indications for airway [...] 1 Airway not difficult SIGNATURE: Ange Crouch APRN.FRAME POLISHER PATIENT NAME: Brigette Holguin DATE: June 19, 2023 TIME: 9:15 AM CSN: [id number]-2023 NoteHNO ID: [id number] Author: Lonnie Mercer APRN.CNP Service: ? Author Type: Nurse Practitioner Type: Progress Notes Filed: 06/16/2023 12:20 PM Note Text: [facility] Cardiology Electrophysiology PRIMARY CARE PHYSICIAN: Paresh Carranza [address] [facility] [address] [place] [address] CHIEF COMPLAINT: History and physical update prior [...] dysfunction, status post dual-chamber pacemaker implantation at [facility] in 2012. Device now is approaching MADDY. [...] WHEN PFRMD 09/15/2009 Colonoscopy PACEMAKER IMPLANT 12/03/2012 [facility] PACEMAKER IMPLANT 01/04/2013 re-implanted due to [...] electrodes MEDICATIONS: losartan ( (more content not included)...[facility]09-20-2023 NoteHNO ID: [id number] Author: Viktoriya Marcial MD Service: ? Author Type: Physician Type: Progress Notes Filed: 04/23/2023 11:57 AM Note Text: Heart and Vascular [facility] SECTION OF CARDIAC PACING and ELECTROPHYSIOLOGY OUTPATIENT VISIT DATE April 23, 2023 OUTPATIENT VISIT TYPE NEW PRIMARY CARE PHYSICIAN: Paresh Carranza [address] [place] [address] HISTORY OF PRESENT ILLNESS: 72-year-old male with history of essential hypertension, coronary disease, status post remote PCI, paroxysmal atrial fibrillation, on rate control strategy, not anticoagulated due to severe bruising, sinus node dysfunction, status post dual-chamber pacemaker implantation at [facility] in 2012. Device now is approaching MADDY. [...] Asthma with chronic obstructive pulmonary disease (COPD) ([facility]) 03/01/2015 Atrial fibrillation ([facility]) 09/22/2012 Benign hypertension 2015 CAD (coronary artery disease) Diverticulosis of colon (without mention of hemorrhage) Hemiplegia, nondominant side S/P CVA (cerebrovascular accident) 08/07/2012 HTN (hypertension) Hypercholesterolemia Hyperlipidemia LDL goal <100 2015 Presence of cardiac pacemaker 03/01/2015 Spinal stenosis of lumbar region without neurogenic claudication 03/01/2015 Stroke ([facility]) 08/07/2012 right posterior frontal lobe, left hand [...] Size: Regular Adult) Pulse 60 Ht 5' 9 (1.753 m) Wt 155 lb (70.3 kg) [...] General: No scleral icte (more content not included)...[facility]09-20-[facility]23 History of Present illness Narrative* Viktoriya Marcial MD - 04/23/2023 11:50 AM EDT Images from the original note were not included. Heart and Vascular [facility] SECTION OF CARDIAC PACING and ELECTROPHYSIOLOGY OUTPATIENT VISIT DATE April 23, 2023 OUTPATIENT VISIT TYPE NEW PRIMARY CARE PHYSICIAN: Paresh Carranza [address] [place] [address] HISTORY OF PRESENT ILLNESS: 72-year-old male with history of essential hypertension, coronary disease, status post remote PCI, paroxysmal atrial fibrillation, on rate control strategy, not anticoagulated due to severe bruising,sinus node dysfunction, status post dual-chamber pacemaker implantation at [facility] in 2012. Device now is approaching MADDY. [...] Asthma with chronic obstructive pulmonary disease (COPD) ([facility]) 03/01/2015 Atrial fibrillation ([facility]) 09/22/2012 Benign hypertension 2015 CAD (coronary artery disease) Diverticulosis of colon (without mention of hemorrhage) Hemiplegia, nondominant side S/P CVA (cerebrovascular accident) 08/07/2012 HTN (hypertension) Hypercholesterolemia Hyperlipidemia LDL goal <100 2015 Presence of cardiac pacemaker 03/01/2015 Spinal stenosis of lumbar region without neurogenic claudication 03/01/2015 Stroke ([facility]) 08/07/2012 right posterior frontal lobe, left hand [...] Cuff Size: Regular Adult) Pulse 60 Ht 5'9 (1.753 m) Wt 155 lb (70.3 kg) [...] INFORMATION: Viktoriya Marcial [facility]* Adriane Cuellar LPN - 04/23/2023 10:49 AM EDT Patient denies any cardiac complaints or symptoms. Adriane Cuellar LPN [facility] History of Past illness Narrative* Problem [...] of this encounter (statuses as of 04/23/2023) [facility] History of Past illness Narrative* Problem [...] of this encounter (statuses as of 06/20/2023) [facility] Evaluation note* Diagnosis Onset Date Resolution Status B12 deficiency acute Asthma chronic Chest pain acute DOMÍNGUEZ (dyspnea on exertion) ac nome History of permanent cardiac pacemaker 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, 2012 acute senior care current use of amiodarone acute Essential (primary) hypertension chronic History of coronary artery stent placement July 232012 chronic HLD (hyperlipidemia) chronic Paroxysmal atrial fibrillation chronic Sick sinus syndrome chronic History of permanent cardiac pacemaker 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, 2012 acute Paroxysmal atrial fibrillation chronic Sick sinus syndrome chronic Sinus bradycardia chronic Ipzzq-Znixtetna-Bjqym (WPW) syndrome chronic B12 deficiency acute B12 deficiency acute Current use of supervisor intermediates anticoagulation acute senior care current use of amiodarone acute Asthma chronic Chronic kidney disease (CKD) chronic Essential (primary) hypertension chronic HLD (hyperlipidemia) chronic Paroxysmal atrial fibrillation [facility] Work Phone: 1([phone]) 311-337705-07-2013 Evaluation note* Diagnosis Onset Date Resolution Status Asthma chronic Chest pain acute DOMÍNGUEZ (dyspnea on exertion) ac nome History of permanent cardiac pacemaker 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, 2012 acute senior care current use of amiodarone acute Essential (primary) hypertension chronic History of coronary artery stent placement July 232012 chronic HLD (hyperlipidemia) chronic Paroxysmal atrial fibrillation chronic Sick sinus syndrome chronic History of permanent cardiac pacemaker 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, 2012 acute Paroxysmal atrial fibrillation chronic Sick sinus syndrome chronic Sinus bradycardia chronic Vpzsp-Avptqxbev-Nhjbd (WPW) syndrome chronic B12 deficiency acute B12 deficiency acute Current use of supervisor intermediates anticoagulation acute senior care current use of amiodarone acute Asthma chronic Chronic kidney disease (CKD) chronic Essential (primary) hypertension chronic HLD (hyperlipidemia) chronic Paroxysmal atrial fibrillation chronic Acute URI acute [facility] Work Phone: [phone]) 778-470205-07-2013 Evaluation note* Diagnosis Onset Date Resolution Status Chest pain acute DOMÍNGUEZ (dyspnea on exertion) ac nome History of permanent cardiac pacemaker 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, 2012 acute senior care current use of amiodarone acute Essential (primary) hypertension chronic History of coronary artery stent placement July 232012 chronic HLD (hyperlipidemia) chronic Paroxysmal atrial fibrillation chronic Sick sinus syndrome chronic History of permanent cardiac pacemaker 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, 2012 acute Paroxysmal atrial fibrillation chronic Sick sinus syndrome chronic Sinus bradycardia chronic Eibdd-Wjzlobsla-Ixytk (WPW) syndrome chronic B12 deficiency acute B12 deficiency acute Current use of supervisor intermediates anticoagulation acute senior care current use of amiodarone acute Asthma chronic Chronic kidney disease (CKD) chronic Essential (primary) hypertension chronic HLD (hyperlipidemia) chronic Paroxysmal atrial fibrillation chronic Acute URI acute [facility] Work Phone: 1([phone] 121-583705-07-2013 Evaluation note* Diagnosis Onset Date Resolution Status History of permanent cardiac pacemaker 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, 2012 acute Paroxysmal atrial fibrillation chronic Sick sinus syndrome chronic Dqzlb-Atecvlyyf-Csano (WPW) syndrome chronic History of permanent cardiac pacemaker 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, 2012 acute Essential (primary) hypertension chronic History of coronary artery stent placement July 232012 chronic HLD (hyperlipidemia) chronic senior care current use of amiodarone chronic Paroxysmal atrial fibrillation chronic Sick sinus syndrome chronic History of permanent cardiac pacemaker 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, 2012 acute Paroxysmal atrial fibrillation chronic Sick sinus syndrome chronic Tpmac-Wzputkfst-Efhpu (WPW) syndrome chronic History of permanent cardiac pacemaker 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, 2012 acute Essential (primary) hypertension chronic History of coronary artery stent placement July 232012 chronic HLD (hyperlipidemia) chronic supervisor intermediates current use of amiodarone chronic Paroxysmal atrial fibrillation chronic Sick sinus syndrome [facility] Work Phone: 1(506) 713-620405-07-2013 Evaluation note* Diagnosis Onset Date Resolution Status History of permanent cardiac pacemaker 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, 2012 acute Paroxysmal atrial fibrillation chronic Sick sinus syndrome chronic Pczgk-Bwxzdbfda-Gteru (WPW) syndrome chronic History of permanent cardiac pacemaker 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, 2012 acute Essential (primary) hypertension chronic History of coronary artery stent placement July 232012 chronic HLD (hyperlipidemia) chronic supervisor intermediates current use of amiodarone chronic Paroxysmal atrial fibrillation chronic Sick sinus syndrome [facility] Work Phone: 1(222) 479-976705-07-2013 Evaluation note* Diagnosis Onset Date Resolution Status History of permanent cardiac pacemaker 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2012 acute Paroxysmal atrial fibrillation chronic Sick sinus syndrome chronic Majsx-Rkqotpvtc-Czbrf (WPW) syndrome [facility] Work Phone: 1([phone] 979-749605-07-2013 Evaluation note* Diagnosis Onset Date Resolution Status History of permanent cardiac pacemaker 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, 2012 acute Paroxysmal atrial fibrillation chronic Sick sinus syndrome chronic Iqvey-Gunrzbfqo-Npqxn (WPW) syndrome chronic History of permanent cardiac pacemaker 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, 2012 acute Paroxysmal atrial fibrillation chronic Sick sinus syndrome chronic Evdaf-Cuychsqpt-Iumvc (WPW) syndrome chronic History of permanent cardiac pacemaker 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, 2012 acute Essential (primary) hypertension chronic History of coronary artery stent placement July 232012 chronic HLD (hyperlipidemia) chronic Paroxysmal atrial fibrillation chronic Sick sinus syndrome [facility] Work Phone: 1(137) 781-357905-07-2013 Evaluation note* Diagnosis Onset Date Resolution Status History of permanent cardiac pacemaker 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, 2012 acute Paroxysmal atrial fibrillation chronic Sick sinus syndrome chronic Zuzca-Ouqrihmmz-Thxuq (WPW) syndrome chronic History of permanent cardiac pacemaker 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, 2012 acute Essential (primary) hypertension chronic History of coronary artery stent placement July 232012 chronic HLD (hyperlipidemia) chronic Paroxysmal atrial fibrillation chronic Sick sinus syndrome [facility] Work Phone: 1([phone]) 260-235405-07-2013 Evaluation note* Diagnosis Onset Date Resolution Status History of permanent cardiac pacemaker 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2012 acute Paroxysmal atrial fibrillation chronic Sick sinus syndrome chronic Sinus bradycardia chronic Sockp-Slmqsfrax-Ooxlv (WPW) syndrome chronic History of permanent cardiac pacemaker 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2012 acute Sick sinus syndrome chronic Sinus bradycardia chronic Jmpsb-Dqrwhbbkj-Pdldf (WPW) syndrome [facility] Work Phone: 1(153) 360-945305-07-2013 Evaluation note* Diagnosis Onset Date Resolution Status History of permanent cardiac pacemaker 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, 2012 acute Sick sinus syndrome chronic Sinus bradycardia chronic Hftoy-Ukbigxoff-Ircly (WPW) syndrome chronic History of permanent cardiac pacemaker 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, 2012 acute Essential (primary) hypertension chronic History of coronary artery stent placement July 232012 chronic HLD (hyperlipidemia) chronic Paroxysmal atrial fibrillation [facility] Work Phone: 1(425) 686-299405-07-2013 Evaluation note* Diagnosis Onset Date Resolution Status Admit Date History of permanent cardiac pacemaker 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, 2012 acute Apri l 2024 10:15am Essential (primary) hypertension chronic November 08, 2024 10:15am History of coronary artery stent placement July 23, 2013 chronic November 08 10:15am HLD (hyperlipidemia) chronic Novi 2024 10:15am Paroxysmal atrial fibrillation chronic November 08, 2024 10:15am History of permanent cardiac pacemaker 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, 2012 acute Apri l 2024 10:15am Sick sinus syndrome chronic November 08, 2024 10:15am Sinus bradycardia chronic November 082024 10:15am Txlpu-Digtxahfl-Edfkm (WPW) syndrome chronic November 08, 2024 10:15am [facility] Work Phone: [phone] 353-778405-07-2013 Evaluation note* Diagnosis Onset Date Resolution Status Admit Date History of permanent cardiac pacemaker 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, 2012 acute Novi 2024 10:15am Essential (primary) hypertension chronic November 08, 2024 10:15am History of coronary artery stent placement July 23, 2013November 08 10:15am HLD (hyperlipidemia) chronic 2024 10:15am Paroxysmal atrial fibrillation chronic November 08, 2024 10:15am History of permanent cardiac pacemaker 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, 2012 acute 2024 10:15am Sick sinus syndrome chronic November 08, 2024 10:15am Sinus bradycardia chronic November 082024 10:15am Cuoiq-Qkjekryjv-Ndwdy (WPW) syndrome chronic November 08, 2024 10:15am Greater trochanteric bursitis of right hip acute December 31, 2024 9:24am IT band syndrome acute December 9:24am Lumbar radiculopathy acute December 31, 2024 9:24am [facility] Work Phone: [phone] Evaluation note* Diagnosis Onset Date Resolution Status Admit Date History of permanent cardiac pacemaker 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, 2012 acute Apri l 2024 10:15am Essential (primary) hypertension chronic November 08, 2024 10:15am History of coronary artery stent placement July 23, 2013November 08 10:15am HLD (hyperlipidemia) chronic Novi 2024 10:15am Paroxysmal atrial fibrillation chronic November 08, 2024 10:15am History of permanent cardiac pacemaker 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, 2012 acute Apri l 2024 10:15am Sick sinus syndrome chronic November 08, 2024 10:15am Sinus bradycardia chronic November 082024 10:15am Ekpyi-Bjplpzsli-Ehxdx (WPW) syndrome chronic November 08, 2024 10:15am [...] atrial fibrillation chronic January 05, 2025 9:18am [facility] Work Phone: [phone] 613-734405-07-2013 Evaluation note* Diagnosis Onset Date Resolution Status [...] of right hip acute April 042024 3:32pm [facility] Work Phone: Evaluation note* Diagnosis Onset Date Resolution Status Current use of fdc anticoagulation acute Leg pain acute Leg swelling acute Essential (primary) hypertension chronic Paroxysmal atrial fibrillation chronic Current use of fdc anticoagulation acute Left anterior knee pain acut e Leg pain acute Leg swelling acute Chronic back pain chronic Essential (primary) hypertension chronic Paroxysmal atrial fibrillation chronic B12 deficiency acute Asthma chronic Chest pain acute DOMÍNGUEZ (dyspnea on exertion) ac nome History of permanent cardiac pacemaker 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, 2012 acute supervisor intermediates current use of amiodarone acute Essential (primary) hypertension chronic History of coronary artery stent placement July 232012 chronic HLD (hyperlipidemia) chronic Paroxysmal atrial fibrillation chronic Sick sinus syndrome chronic [facility] Work Phone: Evaluation note* Diagnosis Onset Date Resolution Status Current use of supervisor intermediates anticoagulation acute Leg pain acute Leg swelling acute Essential (primary) hypertension chronic Paroxysmal atrial fibrillation chronic Current use of fdc anticoagulation acute Left anterior knee pain acut e Leg pain acute Leg swelling acute Chronic back pain chronic Essential (primary) hypertension chronic Paroxysmal atrial fibrillation chronic B12 deficiency acute Asthma chronic Chest pain acute DOMÍNGUEZ (dyspnea on exertion) ac nome History of permanent cardiac pacemaker 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, 2012 acute supervisor intermediates current use of amiodarone acute Essential (primary) hypertension chronic History of coronary artery stent placement July 232012 chronic HLD (hyperlipidemia) chronic Paroxysmal atrial fibrillation chronic Sick sinus syndrome chronic History of permanent cardiac pacemaker 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, 2012 acute Paroxysmal atrial fibrillation chronic Sick sinus syndrome chronic Sinus bradycardia chronic Ycrrb-Zwrvqdklw-Xghzv (WPW) syndrome chronic [facility] Work Phone: Evaluation noteNo assessment information available [facility] Work Phone: Evaluation note* Diagnosis Pacemaker lead malfunction, initial encounter- Primary Presence of cardiac pacemaker Cardiac pacemaker in situ Sinus node dysfunction (HCC) Sinoatrial node dysfunction Paroxysmal atrial fibrillation (HCC) Atrial fibrillation [facility] Diagnosis Dyspnea, unspecified type- Primary Dyspnea, unspecified type [facility] Diagnosis Dyspnea, unspecified type [facility] Additional Instructions [facility] Used?: [facility] Work Phone: Progress note Author Jairo Grande [facility] Note Date/Time January 05, 2025 10:03 am [facility] [address] [place] [address] OFFICE VISIT Date of Service: 01/05/25 MR#: [id number] Acct: [id number] Name: BRIGETTE HOLGUIN Rep #: [id number] : 1950 Provider: ANABEL Grande Age/Sex: 74/M Location: [facility] Status: Signed HPI HPI History of Present Illness Details: Mr. Holguin is a 74-year-old white male, who presents today for outpatient cardiovascular followup. As you know, he has a history of hypertension, hypercholesterolemia, paroxysmal atrial fibrillation, coronary artery disease status post angioplasty and drug-eluting stenting [facility] 07[facility]. At that time he received [...] NIBP Intake Visit Reasons: 2-3 M FU [employer] Licensee Required: No Accompanied by: Is patient in [...] Carotid artery stenosis HLD (hyperlipidemia) Sinus bradycardia Aulot-Vkxpozkjg-Uzjip (WPW) syndrome Sick sinus syndrome Old myocardial infarction BPH (benign prostatic hyperplasia) Atherosclerosis of coronary artery of [place] heart without angina pectoris Segmental and somatic [...] Paroxysmal atrial fibrillation: Status: Chronic Plan: His [id number] score is 6/7. 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 Paresh Carranza MD ~ [facility] Work Phone: Reason for referral (narrative)No reason for referral information availableWHolzer [facility] Work Phone: Summary Purpose Family History No Family History Records Found Relationship Condition Age at Onset Recorded Date/T ricky brother Cerebrovascular accident (CVA) Unknown Stenosis of carotid artery Unknown father Cerebrovascular accident (CVA) Unknown mother Malignant neoplasm of stomach Unknown Advance Directives No Advanced Directives Records Found Advance Directive Response Recorded Date/ Time Advance Directives No May 11th, 202 1 9:18am Living Will Yes February 03, 2021 1 1:10am Power of Gauge And Weigh Machine Operator Yes February 03, 2021 11:10am Advance Directive Response Recorded Date/ Time Advance Directives No December 12 9:18am Living Will No November 27, 2021 9:03pm Power of Gauge And Weigh Machine Operator No November 27 9:03pm Advance Directive Response Recorded Date/ Time Advance Directives No January 09 8:34am Living Will No January 09, 2022 8 :34am Power of Gauge And Weigh Machine Operator No January 09, 2022 8:34am Advance Directive Response Recorded Date/ Time Advance Directives No January 09 7:34am Living Will No January 09, 2022 7 :34am Power of Gauge And Weigh Machine Operator No January 09, 2022 7:34am Latest Code Status on File Code Status Date Activated Date Inactivated Comments Full Code 12/25/2020 11:50 PM 12/27/2020 6:00 PM Question Answer Comments Full Code Order Discussed With: Patient Advance Directive Response Recorded Date/ Time Advance Directives No January 09 7:34am Living Will No June 11 10:15am Power of Gauge And Weigh Machine Operator No June 11, 2023 10:15am Advance Directive Response Recorded Date/ Time Advance Directives No January 09 8:34am Living Will No June 11 11:15am Power of Gauge And Weigh Machine Operator No June 11, 2023 11:15am Advance Directive Response Recorded Date/ Time Advance Directives No January 09 8:34am Advance Directive Response Recorded Date/ Time Living Will No June 11 11:15am Do you have a Healthcare Power of Gauge And Weigh Machine Operator? No June 11, 2023 11:15am Advance Directives No January 09 8:34am Chief Complaint and Reason for Visit Chief Complaint B12 INJ L LEG RED AND SWOLLEN RIGHT LEG SWELLING LEFT LEG xray B12 INJ discuss inhalers B12 INJ PER MSG FROM NURSE & PMW EORDERS CP *NEVIN* CP *NEVIN* B12 INJ CP, DYSPNEA *NEVIN* Reason for Visit Current use of supervisor intermediates anticoagulation Leg pain Leg swelling Essential (primary) hypertension Paroxysmal atrial fibrillation Current use of supervisor intermediates anticoagulation Left anterior knee pain Leg pain Leg swelling Chronic back pain Essential (primary) hypertension Paroxysmal atrial fibrillation B12 deficiency Asthma Chest pain DOMÍNGUEZ (dyspnea on exertion) History of permanent cardiac pacemaker placement supervisor intermediates current use of amiodarone Essential (primary) hypertension History of coronary artery stent placement HLD (hyperlipidemia) Paroxysmal atrial fibrillation Sick sinus syndrome Chief Complaint B12 INJ L LEG RED AND SWOLLEN RIGHT LEG SWELLING LEFT LEG xray B12 INJ discuss inhalers B12 INJ PER MSG FROM NURSE & PMW EORDERS CP *NEVIN* CP *NEVIN* B12 INJ CP, DYSPNEA *NEVIN* INT LABS/ TWO ORDERING 'S 6 mos PPM f/u FACIAL EDEMA Reason for Visit Current use of fdc anticoagulation Leg pain Leg swelling Essential (primary) hypertension Paroxysmal atrial fibrillation Current use of fdc anticoagulation Left anterior knee pain Leg pain Leg swelling Chronic back pain Essential (primary) hypertension Paroxysmal atrial fibrillation B12 deficiency Asthma Chest pain DOMÍNGUEZ (dyspnea on exertion) History of permanent cardiac pacemaker placement supervisor intermediates current use of amiodarone Essential (primary) hypertension History of coronary artery stent placement HLD (hyperlipidemia) Paroxysmal atrial fibrillation Sick sinus syndrome History of permanent cardiac pacemaker placement Paroxysmal atrial fibrillation Sick sinus syndrome Sinus bradycardia Rosfy-Amxjevcax-Zrlwk (WPW) syndrome Chief Complaint B12 INJ discuss inhalers B12 INJ PER MSG FROM NURSE & PMW EORDERS CP *NEVIN* CP *NEVIN* B12 INJ CP, DYSPNEA *NEVIN* INT LABS/ TWO ORDERING 'Virgie 6 mos PPM f/u FACIAL EDEMA B12 INJ 6 M FU & B12 INJ Reason for Visit B12 deficiency Asthma Chest pain DOMÍNGUEZ (dyspnea on exertion) History of permanent cardiac pacemaker placement supervisor intermediates current use of amiodarone Essential (primary) hypertension History of coronary artery stent placement HLD (hyperlipidemia) Paroxysmal atrial fibrillation Sick sinus syndrome History of permanent cardiac pacemaker placement Paroxysmal atrial fibrillation Sick sinus syndrome Sinus bradycardia Pexmv-Nzxyofxwy-Ngyfc (WPW) syndrome B12 deficiency B12 deficiency Current use of supervisor intermediates anticoagulation senior care current use of amiodarone Asthma Chronic kidney [...] exertion) History of permanent cardiac pacemaker placement senior care current use of amiodarone Essential (primary) hypertension History of coronary artery stent placement HLD (hyperlipidemia) Paroxysmal atrial fibrillation Sick sinus syndrome History of permanent cardiac pacemaker placement Paroxysmal atrial fibrillation Sick sinus syndrome Sinus bradycardia Tkyvo-Mmvwtkpqt-Acqoh (WPW) syndrome B12 deficiency B12 deficiency Current use of fdc anticoagulation supervisor intermediates current use of amiodarone Asthma Chronic kidney disease (CKD) Essential (primary) hypertension HLD (hyperlipidemia) Paroxysmal atrial fibrillation Acute URI Chief Complaint PER MSG FROM NURSE & PMW EORDERS CP *NEVIN* CP *NEVNI* B12 INJ CP, DYSPNEA *NEVIN* INT LABS/ TWO ORDERING DR'S 6 mos PPM f/u FACIAL EDEMA B12 INJ 6 M FU & B12 INJ CHEST COLD Reason for Visit Chest pain DOMÍNGUEZ (dyspnea on exertion) History of permanent cardiac pacemaker placement senior care current use of amiodarone Essential (primary) hypertension History of coronary artery stent placement HLD (hyperlipidemia) Paroxysmal atrial fibrillation Sick sinus syndrome History of permanent cardiac pacemaker placement Paroxysmal atrial fibrillation Sick sinus syndrome Sinus bradycardia Etjkp-Armjsitsy-Ckana (WPW) syndrome B12 deficiency B12 deficiency Current use of supervisor intermediates anticoagulation senior care current use of amiodarone Asthma Chronic kidney disease (CKD) Essential (primary) hypertension HLD (hyperlipidemia) Paroxysmal atrial fibrillation Acute URI Chief Complaint 6 mos PPM f/u / JHR 3:30 F/U / JAZLYN 3:00 approaching MADDY/JOHN4:00 6 m fu (per pt request)[id number] EORDER Reason for Visit History of permanent cardiac pacemaker placement Paroxysmal atrial fibrillation Sick sinus syndrome Bpuow-Gjocrawmf-Zsoov (WPW) syndrome History of permanent cardiac pacemaker placement Essential (primary) hypertension History of coronary artery stent placement HLD (hyperlipidemia) supervisor intermediates current use of amiodarone Paroxysmal atrial fibrillation Sick sinus syndrome History of permanent cardiac pacemaker placement Paroxysmal atrial fibrillation Sick sinus syndrome Qynlq-Hrrqqocgr-Jpoml (WPW) syndrome History of permanent cardiac pacemaker placement Essential (primary) hypertension History of coronary artery stent placement HLD (hyperlipidemia) supervisor intermediates current use of amiodarone Paroxysmal atrial fibrillation Sick sinus syndrome Chief Complaint approaching MADDY/JAIRO 4:00 6 m fu (per pt request)[id number] EORDER Reason for Visit History of permanent cardiac pacemaker placement Paroxysmal atrial fibrillation Sick sinus syndrome Dqlbh-Udvgsgygp-Nmvkf (WPW) syndrome History of permanent cardiac pacemaker placement Essential (primary) hypertension History of coronary artery stent placement HLD (hyperlipidemia) senior care current use of amiodarone Paroxysmal atrial fibrillation Sick sinus syndrome Chief Complaint 3 M FU Spondylosis without myelopathy or radiculopathy, l Reason for Visit History of permanent cardiac pacemaker placement Paroxysmal atrial fibrillation Sick sinus syndrome Bsicf-Cvvtatlqo-Jlwwa (WPW) syndrome Chief Complaint 3 M FU Spondylosis without myelopathy or radiculopathy, l PRESENCE OF RIGHT ARTIFICIAL SHOULDER JOINT Reason for Visit History of permanent cardiac pacemaker placement Paroxysmal atrial fibrillation Sick sinus syndrome Ovhip-Adbxxyoxw-Weqau (WPW) syndrome Chief Complaint 3 M FU Spondylosis without myelopathy or radiculopathy, l PRESENCE OF RIGHT ARTIFICIAL SHOULDER JOINT 6 MO F/U / JAZLYN 3:30 EORDER Reason for Visit History of permanent cardiac pacemaker placement Paroxysmal atrial fibrillation Sick sinus syndrome Ayflq-Rbffcjuce-Fyuhk (WPW) syndrome History of permanent cardiac pacemaker placement Paroxysmal atrial fibrillation Sick sinus syndrome Uokkl-Xlhathokz-Cpvhl (WPW) syndrome History of permanent cardiac pacemaker placement Essential (primary) hypertension History of coronary artery stent placement HLD (hyperlipidemia) Paroxysmal atrial fibrillation Sick sinus syndrome Chief Complaint PRESENCE OF RIGHT AR TIFICIAL SHOULDER JOINT 6 MO F/U / JAZLYN 3:30 EORDER Reason for Visit History of permanent cardiac pacemaker placement Paroxysmal atrial fibrillation Sick sinus syndrome Zihqa-Rljvkckdz-Qgjmm (WPW) syndrome History of permanent cardiac pacemaker placement Essential (primary) hypertension History of coronary artery stent placement HLD (hyperlipidemia) Paroxysmal atrial fibrillation Sick sinus syndrome Chief Complaint PRESENCE OF RIGHT AR TIFICIAL SHOULDER JOINT 6 MO F/U / JAZLYN 3:30 EORDER PREOP Septoplasty,Resect/inferior turbina Reason for Visit History of permanent cardiac pacemaker placement Paroxysmal atrial fibrillation Sick sinus syndrome Hlovl-Sswiijsve-Obzaf (WPW) syndrome History of permanent cardiac pacemaker placement Essential (primary) hypertension History of coronary artery stent placement HLD (hyperlipidemia) Paroxysmal atrial fibrillation Sick sinus syndrome Chief Complaint PREOP Septoplasty,Resect/inferior turbina wound check/PPM f/u s/p lead revision [facility] Pacer Check Remote Pacer Check Remote 6 wk post RV lead revision E ORDERS Reason for Visit History of permanent cardiac pacemaker placement Paroxysmal atrial fibrillation Sick sinus syndrome Sinus bradycardia Zqgic-Qhnweqgem-Iqyku (WPW) syndrome History of permanent cardiac pacemaker placement Sick sinus syndrome Sinus bradycardia Hjuks-Ibdqallce-Yapwf (WPW) syndrome Chief Complaint Pacer Check Remote 6 wk post RV lead revision E ORDERS 1 YR / NEEDS 4PM Reason for Visit History of permanent cardiac pacemaker placement Sick sinus syndrome Sinus bradycardia Yfbbk-Vhraikbxs-Ftygb (WPW) syndrome History of permanent cardiac pacemaker placement Essential (primary) hypertension History of coronary artery stent placement HLD (hyperlipidemia) Paroxysmal atrial fibrillation Chief Complaint Admit Date SCREENING October 21, 2024 9:0 9am Chief Complaint Admit Date SCREENING October 21, 2024 9:0 9am 6 mos PPM f/u. Sees R @ 10:30am November 08, 2024 10:15am Reason [...] Sinus bradycardia November 08, 2024 10:1 5am Dlrxg-Whjohbnxr-Mtfnx (WPW) syndrome Apr 2024 10:15am Chief Complaint Admit Date SCREENING October 21, 2024 9:0 9am Pacer Check Remote November 08, 2024 9:00 am 6 mos PPM f/u. Sees R @ 10:30am November 08, 2024 10:15am DYSPNEA November 16, 2024 5:5 6am Chief Complaint Admit Date SCREENING October 21, 2024 9:0 9am Pacer Check Remote November 08, 2024 9:00 am 6 mos PPM f/u. Sees R @ 10:30am November 08, 2024 10:15am DYSPNEA [...] Sinus bradycardia November 08, 2024 10:1 5am Ykcwa-Bskpdeyvh-Axahe (WPW) syndrome Nov 10:15am Greater trochanteric bursitis [...] Sinus bradycardia November 08, 2024 10:1 5am Xoejp-Ngvthdyay-Kkikv (WPW) syndrome Nov 10:15am Degenerative joint disease [...] 2024 9:00 am 6 mos PPM f/u. Ruthie R @ 10:30am November 08, 2024 10:15am DYSPNEA [...] 2025 8:20am Atherosclerosis of coronary artery of [place] heart without angina pectoris May 10, 2025 [...] sinus syndrome May 10, 2025 8: 20am Siprs-Hhffldacr-Ehtec (WPW) syndrome Oct bill2024 8:20am Preoperative cardiovascular examination May 10, 2025 8:20am Essential (primary) hypertension May 10, 2025 8:20am History of coronary artery stent placeme nt May 10, 2025 8:20am HLD (hyperlipidemia) May 10, 2025 8 :20am Paroxysmal atrial fibrillation May 102024 8:20am Chief Complaint Admit Date RT HIP BURSITIS/RADIC LUMBAR REGIO/RX HE RE February 02, 2025 10:00am RIGHT HIP April 11, 2025 3:46pm RT HIP DJD, PAIN, OA April 15 2:06pm right hip April 20, 2025 3:32pm 4 M FU/JAZLYN @ 8:30 May 10, 2025 8: 20am Pacer Check Remote May 10, 2025 9: 00am EORDERS May 10, 2025 9: 55am LABS May 19, 2025 3 :49pm RT HIP, TEMPLATING FOR RT GERMAN May 242024 3:57pm Reason for Referral Specialty Diagnoses / Procedures Referred By Contac t Referred To Contact Radiology Diagnoses Dyspnea, unspecified type Procedures XR CHEST PA+LAT 2 VIEWS Gladys Han [address] [place] [address] [facility] [address] [place] [address] [place] [address] Referral ID Status Reason Start Date Expiration Date V isits Requested Visits Authorized [id number] Pending Review 11/25/2023 11/24/2024 1 1 Additional Source Comments (unrecognized sect ion and content) No Status Records FoundNo Status Records FoundNo Status Records FoundNo Status Records FoundNo Status Records FoundNo Status Records FoundNo Status Records FoundNo Status Records Found INFORMATION SOURCE (unrecogn ized section and content) DATE CREATED AUTHOR 06/03/2020 [facility] DATE CREATED AUTHOR AUTHOR'S ORGANIZ ATION 09/01/2020 [facility] DATE CREATED AUTHOR AUTHOR'S ORGANIZ ATION 10/18/2020 [employer] [facility] DATE CREATED AUTHOR AUTHOR'S ORGANIZ ATION 04/01/2021 [facility] DATE CREATED AUTHOR AUTHOR'S ORGANIZ ATION 07/15/2023 [facility] DATE CREATED AUTHOR AUTHOR'S ORGANIZ ATION 11/26/2023 [employer] [facility] DATE CREATED AUTHOR AUTHOR'S ORGANIZ ATION 06/07/2025 [facility] DATE CREATED AUTHOR AUTHOR'S ORGANIZ ATION 06/13/2025 [facility] (unrecognized sec tion and content) [...] Arreola MD Referring Provider Active [place] IT APPLICATIONS ANALYST, IT APPLICATIONS ANALYST-C Attending Provider Active Dr. Paresh Carranza MD Primary Care Provider Active Team Status: Inactive Member Role Status Dates Dr. Paresh Carranza MD Primary Care Provider, Referring Provider Active Argenis Mcgee Attending Provider Active Team Status: Inactive Member Role Status Dates Dr. Paresh Carranza MD Primary Care Provider, Referring Provider Active [place] IT APPLICATIONS ANALYST, IT APPLICATIONS ANALYST-C Attending Provider Active Team Status: Inactive Member Role Status Dates Dr. Paresh Carranza MD Primary Care Provider Active [place] IT APPLICATIONS ANALYST, IT APPLICATIONS ANALYST-C Attending Provider, Referring Pro vider Active Team [...] Dr. Uma Israel MD Attending Provider Active Big Data Software Engineer Relationship Specialty Start Date End Date Paresh Carranza MD [address] [place] [address] [address] [place] [address] PCP - General Family Medicine 04/22/23 Big Data Software Engineer Relationship Specialty Start Date End Date Paresh Carranza MD [address] [facility] [address] [place] [address] PCP - General Family Medicine 04/22/23 Team Status: Active Member Role Status Dates Dr. Paresh Carranza MD Primary Care Provider Active Dr. Joao Dominguez MD Attending Provider Activ e Dr. Thierry Pepe MD Referring Provider Active Team Status: Inactive Member Role Status Dates Dr. Paresh Carranza MD Primary Care Provider Active Dr. Thierry Pepe MD Attending Provider, Referring Pr belle Active Team Status: Inactive Member Role Status Dates Dr. Paresh Carranza MD Primary Care Provider Active Dr. Chevy Rooney MD Attending Provider Active Team Status: Inactive Member Role Status Dates Dr. Paresh Carranza MD Primary Care Provider Active Kerry Hilliard IT APPLICATIONS ANALYST, IT APPLICATIONS ANALYST-C Attending Provider, Referring P naveen Active Team Status: Inactive Member Role Status [...] 2024 End: November 08, 2024 [place] IT APPLICATIONS ANALYST, IT APPLICATIONS ANALYST-C Attending Provider Active S tart: November 08, 2024 End: November 08, 2024 [place] IT APPLICATIONS ANALYST, IT APPLICATIONS ANALYST-C Referring Provider Active S tart: November 08, [...] 2024 End: November 16, 2024 [place] IT APPLICATIONS ANALYST, IT APPLICATIONS ANALYST-C Attending Provider Active S tart: November 16, 2024 End: November 16, 2024 [place] IT APPLICATIONS ANALYST, IT APPLICATIONS ANALYST-C Referring Provider Active S tart: November 16, [...] 2025 End: January 05, 2025 [place] IT APPLICATIONS ANALYST, IT APPLICATIONS ANALYST-C Attending Provider Active S tart: January 05, [...] 2024 End: November 08, 2024 [place] IT APPLICATIONS ANALYST, IT APPLICATIONS ANALYST-C Attending Provider Active S tart: November 08, 2024 End: November 08, 2024 [place] IT APPLICATIONS ANALYST, IT APPLICATIONS ANALYST-C Referring Provider Active S tart: November 08, 2024 End: November 08, 2024 Team Status: Inactive Member Role/Relationship Status Dates Dr. Paresh Carranza MD Primary Care Provider Active Start: November 16, 2024 End: November 16, 2024 [place] IT APPLICATIONS ANALYST, IT APPLICATIONS ANALYST-C Attending Provider Active S tart: November 16, 2024 End: November 16, 2024 [place] IT APPLICATIONS ANALYST, IT APPLICATIONS ANALYST-C Referring Provider Active S tart: November 16, [...] 2025 End: January 05, 2025 [place] IT APPLICATIONS ANALYST, IT APPLICATIONS ANALYST-C Attending Provider Active S tart: January 05, [...] 2025 End: January 05, 2025 [place] IT APPLICATIONS ANALYST, IT APPLICATIONS ANALYST-C Attending Provider Active S tart: January 05, [...] 2025 End: January 05, 2025 [place] IT APPLICATIONS ANALYST, IT APPLICATIONS ANALYST-C Attending physician Active Start: January 05, 2025 [...] 2025 End: January 05, 2025 [place] IT APPLICATIONS ANALYST, IT APPLICATIONS ANALYST-C Attending physician Active Start: January 05, 2025 [...] 2025 End: May 10, 2025 [place] IT APPLICATIONS ANALYST, IT APPLICATIONS ANALYST-C Attending physician Active Start: May 10, 2025 End: May 10, 2025 Team Status: Active Member Role/Relationship Status Dates Dr. Paresh Carranza MD Primary care physician Active Start: May 10, 2025 [place] IT APPLICATIONS ANALYST, IT APPLICATIONS ANALYST-C Attending physician Active Start: May 10, 2025 [place] IT APPLICATIONS ANALYST, IT APPLICATIONS ANALYST-C Referring Provider Active S tart: May 10, 2025 Team Status: Inactive Member Role/Relationship Status Dates Dr. Paresh Carranza MD Primary care physician Active Start: May 10, 2025 End: May 10, 2025 Dr. Chevy Rooney MD Attending physician Active Start: May 10, 2025 End: May 10, 2025 Team Status: Active Member Role/Relationship Status Dates Dr. Paresh Carranza MD Primary care physician Active Start: May 10, 2025 [place] IT APPLICATIONS ANALYST, IT APPLICATIONS ANALYST-C Attending physician Active Start: May 10, 2025 [place] IT APPLICATIONS ANALYST, IT APPLICATIONS ANALYST-C Referring Provider Active S tart: May 10, 2025 Team Status: Active Member Role/Relationship Status Dates Dr. Paresh Carranza MD Primary care physician Active Start: May 19, 2025 Dr. Jairon Strickland MD Attending physician Active Start: May 19, 2025 Dr. Jairon Strickland MD Referring Provider Active Start: May 19, 2025 Team Status: Active Member Role/Relationship Status Dates Dr. Paresh Carranza MD Primary care physician Active Start: May 24, 2025 Dr. Deangelo Rojas DO Attending physician Active Start: May 24, 2025 Dr. Deangelo Rojas DO Referring Provider Active Start: May 24, 2025 Source Comments (unrecognize d section and content) In the event this informatio n is protected by the Federal Confidentiality of Alcohol and Drug Abuse Patient Records regulations: The Federal rules restrict any use of the information to criminally investigate or prosecute any alcohol or drug abuse patient.[facility] the event this information is protected by the Federal Confidentiality of Alcohol and Drug Abuse Patient Records regulations: The Federal rules restrict any use of the information to criminally investigate or prosecute any alcohol or drug abuse patient.[facility] Reason for Visit (unrecogniz ed section and content) Reason Comments Cardiology Follow Up Possible broken RV lead, gen change Specialty Diagnoses / Procedures Referred By Contac t Referred To Contact Radiology Diagnoses Dyspnea, unspecified type Procedures XR CHEST PA+LAT 2 VIEWS Gladys Han [address] [place] [address] [facility] [address] [place] [address] [place] [address] Referral ID Status Reason Start Date Expiration Date V isits Requested Visits Authorized [id number] Pending Review 11/25/2023 11/24/2024 1 1 FOR [...] BE BASED ON THE PRIMARY CLINICAL RECORDS. [facility]. provides no warranty or guarantee of the accuracy or completeness of information in this document.
[2025-07-05] MEDS: LR 1,000 ML - BOLUS PREOP 999 ML IV (06:00)
[2025-07-05] MEDS: Scopolamine 1mg/72hr Patch 1 PATCH TD (06:36)
--- NOTE | 2025-07-05 06:56 | PRE.ANES_ITS ---
ASA Classification* ASA Classification ASA Classification: 3 Assessment & Plan Anesthesia* Anesthesia Assessment Anesthesia Assessment: Discussed sedation and/or anesthesia options, risks, benefits, and alternatives with patient/parents/legal guardian/POA. Questions invited. The patient/parents/legal guardian/POA seems to understand and agrees to proceed with anesthesia plan. Reviewed the physical assessment, medical history, allergy history and patient home medications list prior to surgery/procedure/anesthetic and documented any changes. Performed airway and anesthesia risk assessments. Anesthesia Type Anesthesia Type: Spinal (General as a backup.) History Source History Obtained from:: Patient and Chart Anesthesia Focused Assessment* Temperature: 97.0 F Pulse Rate: 101 Blood Pressure: 116/73 Respiratory Rate: 18 Pulse Ox: 99 Oxygen Delivery Method: Room Air Airway Assessment Mouth opens: >3 cm Mallampati Score: III Teeth Condition: Intact Neck Range of motion (ROM): Full ROM (Somewhat Decreased) Labs Anesthesia Preop lab: CBC WBC, (4.4-11.0) 5.5 K/mm3 06/13/25, 09:52 RBC, (4.6-6.2) 4.37 M/mm3 L 06/13/25, 09:52 Hgb, (13.0-16.5) 13.8 g/dL 06/13/25, 09:52 Hct, (40-54) 41.3 % 06/13/25, 09:52 Plt Count, (150-450) 297 K/mm3 06/13/25, 09:52 CHEMISTRY Potassium, (3.3-5.1) 4.0 mmol/L 06/13/25, 09:52 Sodium, (133-145) 142 mmol/L 06/13/25, 09:52 Magnesium, (1.5-2.2) 2.6 mg/dL H 06/22/25, 09:03 Phosphorus, (2.5-4.9) 3.7 mg/dL 07/30/19, 05:48 BUN, (4-19) 21 mg/dL H 06/13/25, 09:52 Creatinine, (0.70-1.20) 1.39 mg/dL H 06/13/25, 09:52 Glucose, (70-99) 86 mg/dL 06/13/25, 09:52 POC Glucose, (70-110) 90 mg/dL 08/07/12, 16:08 TSH, (0.300-4.200) 1.760 uIU/mL 05/10/25, 09:59 COAG PT, (11.7-14.9) 20.8 SECONDS H 06/22/25, 09:04 Pre-Assessment Diagnosis/Proposed Procedure Planned Operative Procedure(s): ERAS RIGHT TOTAL HIP ARTHROPLASTY Anesthesia History Anesthesia History - technical delivery manager: Anesthesia History - technical delivery manager Hx Hospitalization No 06/20/25 09:20 Any Problems With Anesthesia No 06/20/25 09:20 Cholinesterase deficiency No 06/20/25 09:20 You/Your Family Experience No 06/20/25 09:20 fever (hyperthermia) with Relationship Recent Exposure to Contagious No 07/05/25 06:00 Disease Does patient have nerve No 06/20/25 09:20 stimulator Patient instructed to have device shut off --Does patient have Pacemaker No 07/05/25 06:00 or ICD? When Was Last Pacemaker Check QUESTION #4 FULL TEXT: You/Your Family Experience fever (hyperthermia) with Anesthesia Last Oral Intake Last Oral intake: Last Oral Intake NPO since 03:30 07/05/25 06:00 Meds taken in AM with sips of Yes 07/05/25 06:00 water? Meds patient instructed to see medlist 07/05/25 06:00 take am of surgery PONV PONV - technical delivery manager: PONV - technical delivery manager Female No 06/20/25 09:20 HX of Motion Sickness No 06/20/25 09:20 HX of N/V After Surgery No 06/20/25 09:20 Non-Smoker Yes 06/20/25 09:20 Duration of Surgery greater Yes 06/20/25 09:20 than 60 minutes Number of Risk Factors 2 06/20/25 09:20 PONV Score Moderate Risk 06/20/25 09:20 Height & Weight Height & Weight: Anesthesia: Height & Weight Height 5 ft 9 in 07/05/25 06:00 Weight: 74 kg 07/05/25 06:00 Body Mass Index (BMI) 24.0 07/05/25 06:00 Respiratory Assessment Respiratory Assessment - technical delivery manager: Respiratory Tract Infection Hx - technical delivery manager Hx Respiratory Tract Infection No 06/20/25 09:20 STOP Sleep Apnea STOP Sleep Apnea - technical delivery manager: STOP Sleep Apnea - technical delivery manager Hx Hypertension Yes: CONTROLLED WITH MED 06/20/25 09:20 Hx Sleep Apnea Yes 06/20/25 09:20 CPAP Yes 06/20/25 09:20 BIPAP No 06/20/25 09:20 Do you snore loudly (louder than talking or can be heard Do you often feel tired/ fatigued/ sleepy during daytime? Has anyone observed you stop breathing during sleep? STOP Results Positive 06/20/25 09:20 QUESTION #5 FULL TEXT : Do you snore loudly (louder than talking or can be heard through closed doors)? 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 Specify any problems Hx of Preganancy in last 3 N/A 06/20/25 09:20 Months Nurse Filling Out Transfusion DSCHRIBER 06/20/25 09:20 & Questions: Date: 06/20/25 06/20/25 09:20 Time: :24 06/20/25 09:20 Patient unable to answer at this time (ie. confused, unrespo /Reproduction History /Reproductive History - technical delivery manager: /Reproductive Hx- technical delivery manager Hx Now No 06/20/25 09:20 Gestational Age (in weeks): EDC: Hx Hx Para Hx Section SAB No 06/20/25 09:20 Does the father of the baby or his family experience fever w Father of the baby Malignant Hypertension history comment Active Medications Active Medications: Current Medications Generic Name Dose Route Start Last Admin Trade Name Freq PRN Reason Stop Dose Admin Acetaminophen 1,000 mg 07/05/25 07:30 07/05/25 06:36 Acetaminophen 500 Mg Tablet PO 07/05/25 07:31 1,000 mg PREOP ONE Administration Dexamethasone Sodium Phosphate 10 mg 07/05/25 07:30 Dexamethasone 10 Mg/Ml Vial IV 07/05/25 07:31 INTRAOP ONE Gabapentin 600 mg 07/05/25 07:30 07/05/25 06:36 Gabapentin 600 Mg Tablet PO 07/05/25 07:31 600 mg PREOP ONE Administration Lactated Ringer's 1,000 mls @ 999 mls/hr 07/05/25 07:30 07/05/25 06:00 IV 07/05/25 08:30 999 mls/hr .Q1H1M ARMANI Administration Cefazolin Sodium 2 gm/ Sodium 110 mls @ 150 mls/hr 07/05/25 07:30 Chloride IV 07/05/25 08:13 INTRAOP ONE Tranexamic Acid 2,000 mg/ 120 mls @ 280 mls/hr 07/05/25 07:30 Sodium Chloride IV 07/05/25 07:55 INTRAOP ONE Lactated Ringer's 1,000 mls @ 100 mls/hr 07/05/25 07:30 IV 07/05/25 17:29 .Q10H ARMANI Lactated Ringer's 1,000 mls @ 125 mls/hr 07/05/25 07:30 IV 07/05/25 15:29 .Q8H ARMANI Insulin Human Lispro 1 - 6 unit 07/05/25 10:00 Insulin Lispro 100 Unit/Ml Insuln.Pen SC Q4H PRN PRN BG>/= 180, SEE PROTOCOL Protocol Scopolamine HBr 1 patch 07/05/25 07:30 07/05/25 06:36 Scopolamine 1mg/72hr Patch TD 07/05/25 07:31 1 patch PREOP ONE Administration PFSH Medical History Wears hearing aid Thyroid disease Ambulates with cane Arthritis History of renal disease Restless legs Back pain CPAP (continuous positive airway pressure) dependence COPD (chronic obstructive pulmonary disease) History of pain when walking History of atrial fibrillation Wears glasses History of echocardiogram History of stress test Hypertension Cardiology follow-up encounter History of CVA (cerebrovascular accident) (08/2012) Non-smoker Rheumatoid arthritis Carotid artery stenosis Auhsr-Sdesucwos-Dahmk (WPW) syndrome Sick sinus syndrome Atherosclerosis of coronary artery of [place] heart without angina pectoris Segmental and somatic dysfunction of cervical region Segmental and somatic dysfunction of thoracic region Segmental and somatic dysfunction of lumbar region 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 Home Medications ?Medication ?Instructions ?Recorded ?Last Taken ?Type albuterol sulfate 90 mcg/actuation 2 puff inhalation Q 4H PRN 02/19/24 Unknown Rx aerosol inhaler (Ventolin HFA) shortness of breath or wheezing #18 grams levothyroxine 25 mcg tablet 25 mcg PO QDAY Filling as 07/07/24 07/05/25 Rx courtesy, pt needs to get from Primary #90 tabs nitroglycerin 0.4 mg sublingual 0.4 mg sublingual Q5M PRN Chest 10/27/24 Unknown Rx tablet Pain #25 tabs budesonide 160 mcg-glycopyr 9 2 inh inhalation BID AST HMA 01/05/25 07/05/25 History mcg-formot 4.8 mcg/actuation HFA inhaler tiotropium bromide 2.5 2 inh inhalation DAILY Breat edi 01/05/25 07/05/25 History mcg/actuation mist for inhalation problems (Spiriva Respimat) diltiazem HCl 240 mg 240 mg PO QDAY BP #90 caps 0 01/07/25 07/05/25 Rx capsule,extended release 24 hr (Cartia XT) tramadol 50 mg tablet 50 mg PO Q8H PRN pain #21 ta bs 05/27/25 06/27/25 Rx guaifenesin 600 mg tablet,extended 600 mg PO BID COPD 06/20/25 07/05/25 History release losartan 25 mg tablet 25 mg PO QHS BP 06/20/2508/28 History rivaroxaban 20 mg tablet (Xarelto) 20 mg PO QHS BLOOD THINNER 06/20/25 06/30/25 History Allergy/AdvReac Type Severity Reaction Status Date / Time Sulfa (Sulfonamide Allergy Mild Rash Verified 07/05/25 05:59 Antibiotics) clopidogrel (From Plavix) AdvReac Severe Other - Verified 07/05/25 05:59 genetic nonresponder, needs brillinta oxybutynin AdvReac Severe short of Verified 07/05/25 05:59 breath, very dry mouth metoprolol (From Lopressor) AdvReac Mild - Verified 07/05/25 05:59 bronchospasm nystatin AdvReac Unknown Unknown Verified 07/05/25 05:59 adhesive tape AdvReac Itching Verified 07/05/25 05:59 Family History Brother CVA (cerebral vascular accident) Carotid artery stenosis Father CVA (cerebral vascular accident) Carotid artery stenosis Mother Stomach cancer Surgical History History of cardiac catheterization History of nasal septoplasty History of shoulder surgery (01/2021) History of permanent cardiac pacemaker placement (12/08/12) History of spinal surgery History of herniorrhaphy History of left heart catheterization (08/02/19) History of coronary artery stent placement (07/23/13) Social History household members: spouse Smoking Status: Never smoker alcohol intake: never substance use type: does not use what type of physical activity do you participate in: walking Review of Systems (Anesthesia) ROS Narrative System reviewed and no additional complaints, except as documented.
--- NOTE | 2025-07-05 07:30 | HIP_PTH ---
PATIENT: BRIGETTE HOLGUIN LOC: [facility]3 U#:[id number] AGE/SX: 74/M ROOM: LA312 RE07/05/[address]: Dr. Deangelo Rojas DO : 1950 BED: 1 DIS: 07/07/2025 SPEC #: [id number] RECD: 07/05/25 10:21 STATUS: EMELY BUCK #: [id number] LEYDI: 07/05/25 07:[address]: Deangelo Rojas DEPT: SURGICAL PATHOLOGY RECD BY: Alpesh Amos ENTERED: 07/05/25 10:46 SP TYPE: TOTAL HIP OTHR DR: Dr. Paresh Carranza MD Tissues: A - Hip, NOS Procedures: Decalcification bone/plaque Surgery Specimen Level III HEADER OPERATION: ERAS, right total hip replacement robotic arm assisted PRE-OP DIAGNOSIS: Osteoarthritis right hip TISSUE SUBMITTED: A- Bone of right hip MICROSCOPIC DIAGNOSIS A. Bone, right hip, total arthroplasty: - Severe degenerative osteoarthritis MICROSCOPIC DESCRIPTION Slides are reviewed. GROSS DESCRIPTION A. Received in formalin labeled with the patient's name and date of . Designated as bone right hip is a 4.8 x 4.8 x 3.9 cm slightly irregular, ovoid femoral head with an attached portion of femoral neck, 1.4 cm in length by 2.4 cm in diameter. The articular cartilage is warner and granular with eburnation and mild osteophyte formation. Sectioning reveals within the container are numerous bone and soft tissue fragments. Sectioning reveals warner-yellow trabeculated bone and ill-defined, pale somewhat wedge-shaped area underlying the eburnation, 3.0 x 2.7 cm. [employer] Installer sections of the articular cartilage with eburnation and underlying pale area are submitted in 2 cassettes, following decalcification. AR 07/05/2025 CPT:28192,50426
[2025-07-05] MEDS: Cefazolin 1 GM/5 ML Vial 2 GM IV (07:44)
--- NOTE | 2025-07-05 07:46 | PCM.HP.BLA ---
History and Physical Date of Admission: 07/05/25 [facility] [address] [place] [address] OFFICE VISIT Date of Service: 04/20/25 MR#: [id number] Acct: [id number] Name: BRIGETTE HOLGUIN Rep #: [id number] : 1950 Provider: Dr. Deangelo Rojas DO Age/Sex: 74/M Location: [facility] [place] Status: Signed Intake Vital Signs 01/05/2509:23 Height 5 ft 9 in Intake Visit Reasons: right hip Allergies Sulfa (Sulfonamide Antibiotics) Allergy (Mild, Verified 04/20/25 15:36) Rash clopidogrel (From Plavix) Adverse Reaction (Severe, Verified 04/20/25 15:36) Other - genetic nonresponder, needs brillinta oxybutynin Adverse Reaction (Severe, Verified 04/20/25 15:36) short of breath, very dry mouth metoprolol (From Lopressor) Adverse Reaction (Mild, Verified 04/20/25 15:36) - bronchospasm nystatin Adverse Reaction (Unknown, Verified 04/20/25 15:36) Unknown adhesive tape Adverse Reaction (Verified 04/20/25 15:36) Itching Medications ?Medication ?Instructions ?Recorded ?Confirmed ?Type albuterol sulfate 90 mcg/actuation 2 puff inhalation Q4H PRN 02/19/24 04/20/25 Rx aerosol inhaler (Ventolin HFA) shortness of breath or wheezing #18 grams rivaroxaban 20 mg tablet (Xarelto) 20 mg PO DAILY #90 tabs 05/05/24 04/20/25 Rx levothyroxine 25 mcg tablet 25 mcg PO QDAY Filling as 07/07/24 04/20/25 Rx courtesy, pt needs to get from Primary #90 tabs losartan 25 mg tablet 25 mg PO DAILY #90 tabs 07/07/24 04/20/25 Rx nitroglycerin 0.4 mg sublingual 0.4 mg sublingual Q5M PRN Chest 10/27/24 04/20/25 Rx tablet Pain #25 tabs budesonide 160 mcg-glycopyr 9 inh inhalation lunges 01/05/25 04/20/25 History mcg-formot 4.8 mcg/actuation HFA inhaler tiotropium bromide 2.5 inhalation Breathing problems 01/05/25 04/20/25 History mcg/actuation mist for inhalation (Spiriva Respimat) diltiazem HCl 240 mg 240 mg PO QDAY #90 caps 01/07/25 04/20/25 Rx capsule,extended release 24 hr (Cartia XT) Have you fallen in the past year?: No PFSH Medical History Wears glasses Thyroid disease Blood disorder History of echocardiogram History of stress test Hypertension Cardiology follow-up encounter Knee pain with internal derangement determined by x-ray History of CVA (cerebrovascular accident) (08/2012) Chronic kidney disease (CKD) Essential (primary) hypertension B12 deficiency Complex partial seizure Non-smoker TIA (transient ischemic attack) Urinary retention Segmental and somatic dysfunction of pelvic region Candidiasis of mouth Rheumatoid arthritis BRANDON (obstructive sleep apnea) Carotid artery stenosis HLD (hyperlipidemia) Sinus bradycardia Xnfvc-Sdsktvzxm-Xtdmh (WPW) syndrome Sick sinus syndrome Old myocardial infarction BPH (benign prostatic hyperplasia) Atherosclerosis of coronary artery of [place] heart without angina pectoris Segmental and somatic dysfunction of cervical region Segmental and somatic dysfunction of thoracic region Segmental and somatic dysfunction of lumbar region 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 Surgical History History of shoulder surgery (01/2021) History of permanent cardiac pacemaker placement (12/08/12) History of spinal surgery History of herniorrhaphy History of left heart catheterization (08/02/19) History of coronary artery stent placement (07/23/13) Family History Brother CVA (cerebral vascular accident) Carotid artery stenosis Father CVA (cerebral vascular accident) Carotid artery stenosis Mother Stomach cancer Social History household members: spouse Smoking Status: Never smoker alcohol intake: never substance use type: does not use what type of physical activity do you participate in: walking HPI right hip Details: This documentation accurately reflects the service provided and the decisions made by me, Dr. Deangelo Rojas, DO 04/20/25 1153. Part of today?s visit was documented by Meche HAMLIN, acting as scribe. BRIGETTE HOLGUIN is a 74 year old M here today for MRI review of the right hip. Patient denies any changes to his symptoms. 04/11/2025 visit:74 year old M here today for follow-up on right hip pain. His states that Dr. Landeros states that he thinks the hip is getting worse and needs re-evaluated. His last injection for the hip was 03/30/2025. he does still get relief from the injections but only gets about 3 weeks of relief. He does use a cane to ambulate. Dr. Landeros did prescribe him Mir[place] but he doesn't like to take it unless he is having severe pain. He does use Voltaren gel for the hip. He has done PT and does exercises at home for the hip. The worst of his pain is in the groin that extends down the medial thigh and stops at the knee. Plan:Patient is here today for continued right hip pain. I spoke with patient that his recent xrays did not seem significant enough to warrant the amount of pain that he is having. However clinically his pain does seem to be originating from the hip. I would like to get an MRI of the hip to rule out AVN or something else we might be missing. Patient does have a pacemaker so we will have to chevk with the sprinkler fitter and the MRI department to see if his is MRI compatible or not. If it is not compatible we can get a CT of the hip however would get MAKOplasty protocol at the same time with anticipation of possible future replacement, as he did get significant relief from intra-articular steroid injection although short-lived does favor positive prognosis for hip replacement. Follow up after MRI 12/31/2024 visit:74 year old M with a medical history significant for but not limited to chronic low back pain, hypothyroidism, atrial fibrillation on anticoagulation Xarelto 20 mg daily, history of CVA, history of cardiac stenting, history of cardiac pacemaker placement, chronic kidney disease, obstructive sleep apnea, WPW here today for right hip pain that he has been having for 3 months. He states that he has pain on the lateral side, posterior, and groin. His pain does radiated down the leg but stops at the knee. He does have low back pain and had a fusion of L4-[address] Philip at [facility] who is now retired over 10 years ago. He did have an intra-articular injection in the right hip by anterior approach by Dr. Israel at [facility] 11/25/24 which helped with his hip/groin pain but not radiating pain and numbness. Since the injection he has intermittent groin pain but it is much better. If he applies pressure to his greater sciatic notch it helps relieve the pain. he does have numbness/tingling in the right leg which also stops at the knee. He denies previous injury or surgery to the hip. He denies physical therapy. He does take Tylenol for the pain as he is unable to take NSAIDs secondary to his Xarelto. Plan:Patient is here today for right hip pain. I obtained and reviewed xrays today of his right hip and lumbar spine. I spoke with patient that his hip xrays do show some mild joint space narrowing of the hip as well as degenerative changes below his previous lumbar fusion . Clinically he has right trochanteric bursitis which can be recurrent secondary to stiffness of the lumbar spine. In addition he has lumbar radiculitis on the right side . I spoke with patient that the pain in the anterior thigh is likely coming from his lumbar spine. His groin pain is doing better after his injection with Dr. Israel . I discussed trochanteric bursal injection as well as physical therapy for the IT band, trochanteric bursitis, and lumbar radiculitis. Patient wishes to proceed with the injection and referral to physical therapy today. Physical therapy referral has been placed and injection was given today without complication. Ortho Exam General General: Yes no acute distress and Yes well groomed Neurologic: Yes alert and Yes oriented x3 Psychologic: Yes reasonable and appropriate Right Hip Skin: No Ecchymosis, No soft tissue swelling and No Erythema internal rotation @90 degree flexion: 5 degrees external rotation @90 degree extension: 70 degrees HIP: IR with immediate groin pain ER w/o groin pain pain with resisted hip flexion There is no bulges in his groin area there is no erythema there is no induration or signs of infection or DVT Constitutional: Well-developed; well-nourished; in no acute distress Eyes: No jaundice ENT: Nares patent; no obvious deformity Cardiovascular: No cyanosis; clubbing; or edema Lymphatic: No adenopathy in area of examination Skin: No rashes or lesions in the area of examination and intact Neurologic: Alert and oriented x 3 Psychiatric: Mood and affect appropriate Supplemental Info 04/15/2025 MRI right hip:There is a 1.7 by 1.2 cm subcortical focus of marrow edema in the superior right femoral head consistent with a developing osteochondral defect, with adjacent marrow edema, with no visible free fragment. There is severe joint space narrowing. 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 There is degeneration throughout the labrum with a 0.8 x 0.6 cm paralabral cyst at the anterior superior labrum, axial PD image 04/02. There is a large joint effusion. There is moderate distal iliopsoas tendinopathy with increased T2 signal and attenuation. 12/31/2024 x-ray right hip: There is mild joint space narrowing 12/31/2024 x-ray lumbar spine: There is pedicle screw within the L4-L5 vertebral bodies there is facet arthrosis L5-S1 Coding Level of Care Code Off vis,est,level 4 Diagnoses Primary osteoarthritis of right hip M16.11 Osteoarthritis type: primary Assessment and Plan Assessment and Plan (1) Degenerative joint disease of right hip: Status: Acute Qualifiers: Osteoarthritis type: primary Qualified Code(s): M16.11 - Unilateral primary osteoarthritis, right hip Plan Patient is here today for MRI review of the right hip. I spoke with patient that his MRI does show severe arthritis of the right hip. I spoke with patient that his treatment would be a total hip arthroplasty. Risks, benefits and alternatives of surgery reviewed including but not limited to bleeding, infection, nerve, foot drop, artery and/or tissue damage, fracture, VTE, leg length discrepancy, dislocation, need for hip precautions, continued pain and expected post-operative course. I do recommend doing PT after surgery. He should also avoid bending over the hip or bending to mixing picker tender anything heavy. I would need medical clearance from his PCP and clearance to stop his Xarelto 4 days prior to surgery secondary to his chronic kidney disease and inability to use a tourniquet during hip surgery. I would also like to get a cardiac clearance. I would recommend him being an admit secondary to his advanced age blood thinner usage and cardiac comorbidities. He does have 2 steps to get into his house. I advised patient that we do have to wait 3 months from his last hip injection which was 03/30/25 but he can continue to get injections for his lumbar spine. Patient does wish to proceed with surgery tentative surgery date July 05, 2025 admission. Follow up at 2 weeks post-op or sooner if pain, swelling, numbness or associated symptoms, or concerns develop. All questions answered. Patient in agreement of plan. Plan Details Goals & Barriers: Goals Decrease pain Decrease inflammation Improve ROM Barriers cervical disc herniation previous lumbar surgery Clinical Quality Measures Falls Risk Screening/Assistive Devices Have you fallen in the past year?: No 04/20/25 1555 <Electronically signed by Deangelo Rojas DO> Date Deangelo Rojas DO I have examined the patient and the H&P has been reviewed. There are no clinical changes since date of exam.
[2025-07-05] MEDS: Midazolam 2 MG/2 ML Syringe IV (07:49)
[2025-07-05] MEDS: Lidocaine 1% (5 ml sdv) 5 ML Vial 6 ML IV (07:57)
[2025-07-05] MEDS: fentaNYL 100 MCG/2 ML Ampul IV (09:35)
--- NOTE | 2025-07-05 10:02 | PCM.POST.ANE ---
Anesthesia: Postop Eval I Current Vital Signs Temperature: 97.1 F Pulse Rate: 84 Blood Pressure: 95/58 Respiratory Rate: 16 Pulse Ox: 98 Assessment Airway patent: Yes Spontaneous unlabored respirations: Yes nausea: No Vomiting: No Anesthesia Complication: No Fluid Hydration Crystalloid volume administer (ml): 2,100 Total IV fluid infused: 2,100 Progress Note Anesthesia document: Postop Eval 1 completed: Yes
--- NOTE | 2025-07-05 10:11 | OP.PCM_ITS ---
Operative Report (Standard) Operative Information Date of Procedure: 07/05/25 Pre-Operative Diagnosis: Right hip DJD Post-Operative Diagnosis: Same Surgery/Procedure Performed: Right total hip arthroplasty r and d lab technician: Yes Kiln Car Unloader: Aguila Helton Tasks completed by surgical first assistant: Opening & closing and Implanting device Type of Anesthesia: Spinal RN Documented Start/Stop Times: Operation Date: 07/05/25 07:30 Case Time Into Pre-Op 07/05/25 05:30 Anesthesia Start 07/05/25 07:44 Into Room 07/05/25 07:44 Procedure Start 07/05/25 08:14 Procedure End 07/05/25 09:50 Anesthesia End 07/05/25 09:56 Out of Room 07/05/25 09:56 Procedure Start Time: 08:14 Procedure Stop Time: 09:50 Select all DRAINS/GRAFTS/IMPLANTS that apply: Implanted device Implanted device details: celestine Estimated Blood Loss: 175 Specimen collected: Yes Description of specimen(s) removed: Femoral head Description of surgery: Preoperative diagnosis: Right hip DJD Postoperative diagnosis: Same Procedure: CT-guided Makoplasty assisted right total hip arthroplasty Implants: Celestine Accolade II stem size 5, 127 degree neck angle -5 head neck length 54 mm Trident II acetabular shell with 40 mm cancellous screw and 35 mm cancellous screw 36 mm ceramic head, 10 degree Trident X3 polyethylene insert. Anesthesia: Spinal EBL: 175 cc Complications: None Condition: Stable to PACU Water Resources Program Director Aguila Helton. My physician vector control assistant was a vital part of this case. He was important in appropriate retraction during the case, and protection of so ft tissues during procedure. His intimate knowledge of the case and my steps aided in safe and expedient completion of the procedure as well as appropriate position of the extremity during the case. He was also vital in assisting with closure under my direct supervision. Indication for procedure: This is a 74-year-old male who has had long-standing arthrosis of the hip who has failed conservative treatment and wished to undergo total hip arthroplasty. We did discuss operative versus nonoperative intervention including risks of bleeding, infection , nerve artery tissue damage, need for further surgery, fracture, leg length discrepancy dislocation blood clot and need for postoperative physical therapy and postoperative expectations. An informed consent was signed. Procedure: Patient was met in the preoperative holding area once again the operative extremity was identified by both patient and physician and was marked. Patient was met by anesthesia . Anesthesia was started. patient was then positioned in the lateral decubitus position on a well-padded pegboard with an axillary roll. All bony prominences were checked and padded. The patient was prepped and draped in the usual sterile fashion. A timeout was called to ensure the proper patient procedure and extremity were being contemplated. Anatomic landmarks were palpated and marked for a standard posterior lateral approach. Prior to this the ASIS was palpated and 3 fingerbreadths proximal to this 3 pins were placed at a 45 degree angle into the iliac crest with good purchase, stab incisions were made with a 15 blade into the skin prior to placement. The Makoplasty array was then secured. A 10 blade scalpel was used to make a posterior incision through the skin and subcutaneous tissue. retractors were used and electrocautery was used to maintain meticulous hemostasis and dissect full-thickness flaps until the gluteal fascia was reached. The gluteal fascia was incised in line with the gluteal fibers. The bursal tissue was then freed from the underside and a Charnley retractor was placed. The femoral trochanteric checkpoint was placed and leg length was assessed using the trochanteric checkpoint and an EKG lead that was placed on the knee prior to prepping the leg .the fat pad was then elevated off of the external rotators with electrocautery and the external rotators were dissected off of the greater trochanter including the piriformis and were tagged with #1 Ethibond for later repair. The joint capsule opened with posterior trapdoor technique. The hip was surgically dislocated. The measurement on the preoperative CT from the top of the lesser trochanter to the femoral neck cut was marked Sloanhmann was placed around the lesser trochanter. A neck cutting guide was used to sav the neck with a Bovie and an oscillating saw was used complete the femoral neck cut. The femoral head was then removed and sized. We then turned our attention to the acetabulum. A Bovie was used to make a perforation in the anterior joint capsule and a Byers retractor was placed this was repeated in the 6 o'clock position and a wide denise was placed there. With a long handled knife the labral and pulvinar tissue were removed. We then registered the acetabulum with the pointing array and confirmed our landmarks. Once the socket was thoroughly prepared and labral tissue and pulvinar was removed we single reamed with the robotic arm. We then used the robotic arm to position the acetabular implant and impacted it into place under robotic guidance. We then proceeded to place a posterior superior screw by drilling first measuring and inserting the screw. We then inserted a trial liner. And turned our attention back to the femur at this point a femoral elevator was used. As well as a pointed wide Hohmann around the lesser trochanter and a Hohmann to help retract the gluteus medius. A box chisel was used to remove excess lateral neck followed by a canal finder and a lateralizing reamer. This was followed by sequential broaches. Attention was made of the version within the canal based on preoperative templating. Once the final broach was seated we then trialed reduced the hip it was determined that a 127 degree neck angle with a -5 neck length was the appropriate size. We then checked stability with shuck testing as well as flexion and internal rotation. then proceeded with hip extension and checked leg lengths at the knees and heels as well as with the trochanteric checkpoint and knee EKG lead. At this point trials were removed. A liner was inserted to the cup. The femoral stem was inserted. We re-trialed and then proceeded to impact the femoral head onto the Hai taper. We then surgically reduce the hip check stability again and leg lengths and were satisfied. Betadine rinse was allowed to sit for 5 minutes while everyone changed their gloves. Thorough irrigation was performed. Followed by closure of the external rotators with #2 FiberWire followed by closure of gluteal fascia with #1 Ethibond. 0 Vicryl fat stitches and 2-0 Vicryl subcutaneous stitches and bradley in the skin. [place] were placed in the skin pin sites over the iliac crest and dressed with a Mepilex dressing. The main incision was dressed with a Mepilex ag dressing and an abduction pillow was placed. Patient tolerated the procedure well there was no intraoperative complications all counts were correct and the patient was brought back to the PACU in stable condition Surgical Findings: As above Complications Complications: No
--- NOTE | 2025-07-05 10:18 | RAD_ITS ---
PROCEDURE: HIP MIN 2 VIEWS (PORTABLE) 07/05/2025 REASON FOR EXAM: POST OP TECHNIQUE: Procedure Code: RADH_P Modality: DX Procedure: HIP MIN 2 VIEWS (PORTABLE) Laterality: Right FINDINGS: A total right hip arthroplasty is noted, without radiographic evidence of hardware complication. No acute fracture or dislocation. Skin bradley are noted. RAD/Hip Min 2 Views (Portable) IMPRESSION: As above. Reading Location: [place]
[2025-07-05] MEDS: Lactated Ringers 1,000 ML 125 ML IV ×2 (13:15→21:53)
[2025-07-05] MEDS: Cefazolin 2 GM in 0.9% Normal Saline (100mL Bag) 100 ML IV ×2 (13:49→21:37)
[2025-07-05] MEDS: 0.9% Saline Lock 10 ML Syringe IV (16:29)
[2025-07-05] MEDS: Ensure Surgery 237 ML LIQUID PO (17:11)
[2025-07-05] MEDS: Budesonide Respules 0.5 MG/2 ML AMPUL.NEB. INHALATION (19:15)
--- NOTE | 2025-07-05 20:36 | POSTOPAN2_ITS ---
Anesthesia Postop Eval I Sum Postop Eval Completion status Anesthesia document: Postop Eval 1 completed: Yes Anesthesia Postop Eval I Summary Anesthesia Postop Eval I Summary: Anesthesia Postop Eval I: Assessment Summary Airway patent Yes 07/05/25 10:02 [email or web address] Spontaneous unlabored Yes 07/05/25 10:02 [email or web address] respirations Mental status nausea No 07/05/25 10:02 [email or web address] Vomiting No 07/05/25 10:02 [email or web address] Anesthesia Postop Eval I: Fluid Summary Crystalloid volume administer 2,100 07/05/25 10:02 [email or web address] (ml) Colloids volume administered ( ml) Blood Product volume administered (ml) Total IV fluid infused 2,100 07/05/25 10:02 [email or web address] Anesthesia Postop Eval I: Summary Notes Anesthesia Complication No 07/05/25 10:02 [email or web address] Anesthesia Complication Comment: Post-operative progress note Anesthesia: Postop Eval II Evaluation Mental status: Awake and Calm Pain Level: 1 nausea: No Vomiting: No Complications Anesthesia Complication: No
--- NOTE | 2025-07-05 20:36 | PCM.POSTANE2 ---
Anesthesia Postop Eval I Sum Postop Eval Completion status Anesthesia document: Postop Eval 1 completed: Yes Anesthesia Postop Eval I Summary Anesthesia Postop Eval I Summary: Anesthesia Postop Eval I: Assessment Summary Airway patent Yes 07/05/25 10:02 [email or web address] Spontaneous unlabored Yes 07/05/25 10:02 [email or web address] [email or web address] respirations Mental status nausea No 07/05/25 10:02 [email or web address] Vomiting No 07/05/25 10:02 [email or web address] Anesthesia Postop Eval I: Fluid Summary Crystalloid volume administer 2,100 07/05/25 10:02 [email or web address] (ml) Colloids volume administered ( ml) Blood Product volume administered (ml) Total IV fluid infused 2,100 07/05/25 10:02 [email or web address] Anesthesia Postop Eval I: Summary Notes Anesthesia Complication No 07/05/25 10:02 [email or web address] Anesthesia Complication Comment: Post-operative progress note Anesthesia: Postop Eval II Evaluation Mental status: Awake and Calm Pain Level: 1 nausea: No Vomiting: No Complications Anesthesia Complication: No
[2025-07-05] MEDS: Senna/Docusate Sodium 1 Tablet 2 TABLET PO (21:51)
[2025-07-06 04:36] VITALS: BP 135/72; PULSE 105; RESP 15; TEMP 36.9; O2SAT 95
[2025-07-06] MEDS: Cefazolin 2 GM in 0.9% Normal Saline (100mL Bag) 100 ML IV (04:49)
[2025-07-06 06:10] LABS: Hematocrit 35.0 % (40-54); Hemoglobin 12.0 g/dL (13.0-16.5); Immature Granulocytes Count 0.050 X10^3/uL (0.0-0.0); Mean Corp Hgb Conc 34.3 g/dL (32-36); Mean Corpuscular Volume 92.3 fL (80-94); Mean Platelet Vol. 9.5 fl (6.2-12.0); NRBC Flagged by Analyzer 0 % (0-5); POSITIVE DIFFERENTIAL YES; Platelet Count 209 K/mm3 (150-450); RBC Distribution Width CV 13.2 % (11.6-14.6); RBC Distribution Width SD 44.7 fl (35.1-43.9); Red Blood Count 3.79 M/mm3 (4.6-6.2); White Blood Count 15.6 K/mm3 (4.4-11.0)
[2025-07-06 06:50] LABS: Anion Gap 13 (5-15); BUN 17 mg/dL (4-19); BUN/Creat Ratio 12.8 RATIO (10-20); Calcium,Total 9.2 mg/dL (7.6-11.0); Carbon Dioxide 21.1 mmol/L (21.0-32.0); Chloride 104 mmol/L (98-108); Estimated Creatinine Clearance 50.24 ml/min (50-250); Glucose 151 mg/dL (70-99); Potassium 4.7 mmol/L (3.3-5.1)
[2025-07-06 07:18] VITALS: PULSE 95; RESP 16
[2025-07-06] MEDS: Budesonide Respules 0.5 MG/2 ML AMPUL.NEB. INHALATION ×2 (07:18→19:50)
[2025-07-06] MEDS: Ensure Surgery 237 ML LIQUID PO ×3 (09:17→18:03)
[2025-07-06] MEDS: Senna/Docusate Sodium 1 Tablet 2 TABLET PO ×2 (09:17→22:02)
[2025-07-06 09:24] VITALS: BP 108/63; PULSE 104; RESP 18; TEMP 37.5; O2SAT 95
--- NOTE | 2025-07-06 11:32 | CASEMGMT ---
SW Assessment: Face to Face with pt for initial transition planning/care coordination assessment. SW introduced self and role at [facility], pt voices understanding and consents to assessment. Pt is A&O x4 and answers all questions appropriately at this time. Care providers, pharmacy, and demographics verified/updated. Admitting Dx: R total hip replacement PCP:Galdino Specialists:Nevin, cardiology Preferred Pharmacy: [facility], but would like any meds ordered here delivered to bedside Insurance: [facility] Prescription Benefit: yes- [employer] LNOK: [place], Living Arrangements: Pt lives in a one story home with 2 steps to enter with [place]. Pt son lives in finished basement. Pt reports being fully independent with all ADL and IADL at baseline. Pt has walk-in shower and no concerns regarding accessibility or function in home. Pt reports support with care from and son if needed, but does not anticipate needing regular assistance based on performance with therapy today. Transportation: Pt drives self and denies concerns with transportation. DME: C-pap, shower chair, BSC, raised toilet seat, cane, walker, grab bars, padder cushion HHC/SNF: None Pt states no concerns with going home at time of dc. Pt adamantly denies need for RU or SNF. Pt denies any additional dizziness and reports that he feels confident in d/c with OP therapy. Pt states no further concerns/needs. Pt reports that he has an appointment at [facility] at 4PM on Sunday 07/08. SW to follow. Advised pt to ask SW if any further questions/concerns/needs arise, voices understanding. Pt Goal: Home, prior level of function Plan: Home with OP therapy at [facility] [place]
--- NOTE | 2025-07-06 12:57 | PCM.PN.ORT ---
Subjective Subjective Seen and examined. Last night patient was on the commode and fell off landing onto his right hip and right forearm he did sustain a abrasion of his right forearm which was wrapped with a Kerlix. He did sustain an abrasion to his right hip he did not feel like his hip pain was any worse after the fall and he was able to continue to ambulate without difficulty afterwards. He denies any dizziness lightheadedness now denies fevers chills nausea vomit shortness of breath or chest pain. He feels he is ready for discharge. Objective Data Objective Data Vital Signs: Vital Signs Temp Pulse Resp BP Pulse Ox O2 Del Method O2 Flow Rate 99.5 F H 104 H 18 108/63 95 Room Air 4 07/06/25 09:24 07/06/25 09:24 07/06/25 09:24 07/06/25 09:24 07/06/25 09:24 07/06/25 09:27 07/05/25 11:30 Oxygen Flow Rate (L/min) 4 Oxygen Delivery Method Room Air Weight: 163 lb 2.273 oz Body Mass Index (BMI) 24.0 Intake & Output: Intake and Output for Last 24 Hours 07/04/25 07/05/25 07/06/25 23:59 23:59 23:59 Intake Total 2220.00 / 2220.00 1110 / 1110 Output Total 175 / 175 Balance 2045.00 / 2045.00 1110 / 1110 Lab / Micro Data 07/06/25 05:50 07/06/25 05:50 Labs: Laboratory Results - last 24 hr 07/05/25 23:17: POC Glucose 139 H 07/06/25 05:50: WBC 15.6 H, RBC 3.79 L, Hgb 12.0 L, Hct 35.0 L, MCV 92.3, MCH 31.7, MCHC 34.3, RDW Std Deviation 44.7 H, RDW Coeff of Jessica 13.2, Plt Count 209, MPV 9.5, Immature Gran % (Auto) 0.300, Neut % (Auto) 89.8 H, Lymph % (Auto) 3.3 L, [place] % (Auto) 6.5, Eos % (Auto) 0.0, Baso % (Auto) 0.1, Absolute Neuts (auto) 14.0 H, Absolute Lymphs (auto) 0.52 L, Nucleated RBC % 0, Sodium 138, Potassium 4.7, Chloride 104, Carbon Dioxide 21.1, Anion Gap 13, BUN 17, Creatinine 1.29 H, Estim Creat Clear Calc 50.24, Est GFR (MDRD) Non-Af 58 L, BUN/Creatinine Ratio 12.8, Glucose 151 H, Calcium 9.2 Micro: Microbiology 06/29/25 08:53 Swab (Method) Nasal Screen MRSA/MSSA - Final Physical Exam Const alert, oriented x3 and no apparent distress General Appearance: cooperative Extremity Extremity Narrative: Right hip dressing clean dry intact he does have an abrasion over the posterior glutes his compartments are soft he has neurovascular intact right lower extremity. Assessment & Plan Assessment/Plan (1) S/P total right hip arthroplasty: (2) Fall: QUALIFIERS: Encounter type: initial encounter Qualified Code(s): W19.XXXA - Unspecified fall, initial encounter PLAN: Plan I would like to go ahead and get an x-ray of his right hip since he did have a follow-up with direct impact and abrasion to the right hip although low likelihood of bony pathology, Patient feels like he is ready for discharge home after discussion with him we agreed to keep him 1 more night to make sure there is no balance issues and he is ambulating safely he does have a son who lives in the basement. PT OT weightbearing as tolerated with hip or cautions DVT prophylaxis SCDs LYNDON hose he resumes his preoperative Xarelto. Pain control Tylenol and oxycodone. Plans for discharge home tomorrow.
--- NOTE | 2025-07-06 13:02 | DCINST_ITS ---
Discharge Instructions DC O2, CPAP, BIPAP needs Home O2 Discharge instructions: No Dressing / Incision Weight Bearing Status: Full weight bearing Dressing / Incision Call your doctor if you observe: Shortness of breath and Chest pain Additional Dressing/Incision Instructions:: Do not shower for 72hrs. May Begin daily showering with warm water antibacterial soap postop day #3( 72hrs Post- operatively) and then daily. Leave the dressing on for 72 hours postoperatively then remove prior to first shower and change dressing daily after this until no drainage for 2 consecutive days then may leave open to air. If you decide not shower on Friday and wish to sponge bath only, then may leave dressing undisturbed for up to 1 week, but must remove prior to first shower. Do not submerge for 3 weeks. If not showering daily after the initial dressing is removed you must clean incision and change dressing daily after the dressing comes off, must come off by 7 days postop. Do not allow animals near the incision area. Keep clean. Follow hip precautions that were reviewed in hospital. Wear compression stockings, may remove at night. Start physical therapy as directed in hospital. Follow prescriptions instructions do not take any other pain medication or differ dosing without consulting your physician. Do not take oral NSAIDs until blood thinner has been completed , then may begin the day after completion if needed . Call Dr. Rojas's office with any concerns. Follow Up Care Please Follow Up With: Deangelo Rojas DO When: 2 weeks Test Results: Test results from this visit will be discussed in further detail at your follow- up appointment, if applicable. Discharge Plan Admission Admit Date/Time: 07/05/25 05:31 Primary Reason for Your Visit: Right total hip arthroplasty Attending Provider: Deangelo Rojas Primary Care Provider: Paresh Carranza Discharge Orders/Prescriptions Prescriptions: New acetaminophen 500 mg tablet 1,000 mg PO Q6H Qty: 100 0RF oxycodone 5 mg tablet 5 - 10 mg PO Q6H PRN (Reason: pain) 7 Days Qty: 60 0RF Continued albuterol sulfate [Ventolin HFA] 90 mcg/actuation HFA aerosol inhaler 2 puff inhalation Q4H PRN (Reason: shortness of breath or wheezing) Qty: 18 6RF [id number]-iitturie-pfjutpyrhb 160-9-4.8 mcg/actuation HFA aerosol inhaler 2 inh inhalation BID Spiriva Respimat 2.5 mcg/actuation mist 2 inh inhalation DAILY diltiazem HCl [Cartia XT] 240 mg capsule,extended release 24hr 240 mg PO QDAY Qty: 90 3RF losartan 25 mg tablet 25 mg PO QHS Xarelto 20 mg tablet 20 mg PO QHS Rx Instructions: must administer with evening meal guaifenesin 600 mg tablet extended release 600 mg PO BID levothyroxine 25 mcg tablet 25 mcg PO QDAY Qty: 90 0RF nitroglycerin 0.4 mg tablet, sublingual 0.4 mg SUBLINGUAL Q5M PRN (Reason: Chest Pain) Qty: 25 3RF Patient Comments: CHEST PAIN Held tramadol 50 mg tablet 50 mg PO Q8H PRN (Reason: pain) Qty: 21 0RF Hold Instructions: Do not take in conjunction with other narcotics; postoperative pain medication was prescribed Referrals / Follow Up: Paresh Carranza MD [Primary Care Provider, Family Practice] Disposition Disposition (needs filled in before D/C Order can be placed): Home, Self Care
--- NOTE | 2025-07-06 13:24 | RAD_ITS ---
PROCEDURE: HIP, UNI W/ PELVIS 2-3 VIEWS 07/06/2025 REASON FOR EXAM: FALL IN HOSPITAL S/P TOTAL HIP ARTHROPLASTY. TECHNIQUE: Procedure Code: RADHP Modality: DX Procedure: HIP, UNI W/ PELVIS 2-3 VIEWS Laterality: Right hip COMPARISON: December 31, 2024. FINDINGS: Status post right total hip replacement. There is good alignment. Postoperative soft tissue changes. RAD/HIP, UNI W/ Pelvis 2-3 Views IMPRESSION: Status post right total hip replacement. There is good alignment. Postoperative soft tissue changes. Reading Location: [place] [id number]
[2025-07-06 15:00] VITALS: BP 107/57; PULSE 92; RESP 16; TEMP 36.8; O2SAT 96
[2025-07-06 19:50] VITALS: PULSE 88; RESP 16
[2025-07-06 20:29] VITALS: BP 128/69; PULSE 93; RESP 15; TEMP 37.2; O2SAT 96
[2025-07-07 03:05] VITALS: BP 136/78; PULSE 84; RESP 15; TEMP 36.9; O2SAT 94
[2025-07-07] MEDS: Budesonide Respules 0.5 MG/2 ML AMPUL.NEB. INHALATION (06:58)
[2025-07-07 06:59] VITALS: PULSE 17; RESP 14
[2025-07-07 07:42] VITALS: BP 127/63; PULSE 87; RESP 16; TEMP 37; O2SAT 93
[2025-07-07] MEDS: Ensure Surgery 237 ML LIQUID PO ×2 (07:53→11:17)
[2025-07-07] MEDS: Senna/Docusate Sodium 1 Tablet 2 TABLET PO (09:58)
--- NOTE | 2025-07-07 11:19 | PN.ORTHO_ITS ---
Subjective Subjective Marques is a pleasant 74-year-old gentleman postop day 2 status post GERMAN [address] Dr[address] Rojas on 07/05/2025. Patient did have a fall yesterday and sustained abrasions to the right mid to lower back region and a skin tear to the right forearm, states symptoms are improving and no aggravation of right hip pain after this occurrence. Patient states his right hip pain is well-controlled with as needed medications. He has worked with PT and OT including steps this morning. Feels ready for discharge home today. Objective Data Objective Data Vital Signs: Vital Signs Temp Pulse Resp BP Pulse Ox O2 Del Method O2 Flow Rate 98.6 F 87 16 127/63 H 93 Room Air 4 07/07/25 07:42 07/07/25 07:42 07/07/25 07:42 07/07/25 07:42 07/07/25 07:42 07/07/25 07:42 07/05/25 11:30 Oxygen Flow Rate (L/min) 4 Oxygen Delivery Method Room Air Weight: 163 lb 2.273 oz Body Mass Index (BMI) 24.0 Intake & Output: Intake and Output for Last 24 Hours 07/05/25 07/06/25 07/07/25 23:59 23:59 23:59 Intake Total 2220.00 / 2220.00 1110 / 1110 600 / 600 Output Total 175 / 175 500 / 500 Balance 2045.00 / 2045.00 1110 / 1110 100 / 100 Lab / Micro Data Attestation: I reviewed the patient's lab results. 07/06/25 05:50 07/06/25 05:50 Micro: Microbiology 06/29/25 08:53 Swab (Method) Nasal Screen MRSA/MSSA - Final Radiography Diagnostic Testing: Radiology Impression Hip/Pelvis X-Ray 07/06/25 13:24 IMPRESSION: Status post right total hip replacement. There is good alignment. Postoperative soft tissue changes. Reading [facility] [place] Physical Exam Const alert, oriented x3 and no apparent distress General Appearance: cooperative and well developed HEENT normocephalic Resp normal respiratory effort Extremity Extremity Narrative: Lateral right hip dressing clean dry intact he does have an abrasion over the right lower back/posterior glute with no surrounding erythema, drainage or oozing, mildly tender to palpation.and skin tear with Steri-Strips to the right forearm are dry and intact, mild bruising is present, no drainage, swelling. with no surrounding erythema, drainage or oozing, mildly tender to palpation. Right anterior iliac crest incision with dressing dry and intact with scant amount Betadine at distal edge of dressing. Bilateral lower extremities are soft, nontender, Homans negative. Distal sensation is intact with brisk cap refill at 2 seconds. Distal neurovascular intact. General Extremity: Negative for calf tenderness or edema Assessment & Plan Assessment/Plan (1) S/P total right hip arthroplasty: PLAN: We discussed pain control with [id number] Tylenol, as needed oxycodone for moderate to severe pain. We discussed home safety and slow transitions of positions, use assistive devices and assistance at home May continue with weightbearing as tolerating using walker Continue with DVT prophylaxis of LYNDON hose and may resume preop Xarelto dosing May Begin daily showering with warm water antibacterial soap postop day #3 (72hrs Post-operatively) and then daily. Leave the dressing on for 72 hours postoperatively then remove prior to first shower and change dressing daily after this until no drainage for 2 consecutive days then may leave open to air. If you decide not shower on Friday and wish to sponge bath only, then may leave dressing undisturbed for up to 1 week, but must remove prior to first shower. Do not submerge for 3 weeks. If not showering daily after the initial dressing is removed you must clean incision and change dressing daily after the dressing comes off, must come off by 7 days postop. Do not allow animals near the incision area. Keep clean. Reviewed hip precautions, take sign home for frequent review Plan for DC home today with family Follow-up in Ortho clinic in 2 weeks, sooner for changes or concerns In agreement with plan of care (2) Fall: QUALIFIERS: Encounter type: initial encounter Qualified Code(s): W19.XXXA - Unspecified fall, initial encounter (3) Abrasions of multiple sites: PLAN: We discussed daily and as needed antibacterial soap and water cleansing of abrasions to right lower back and gluteal region and right forearm. Steri-Strip care instructed to allow Steri-Strips to fall off on their own. May trim edges as they work their way off the skin. Do not pull. Reviewed signs and symptoms of infection and to seek evaluation for any redness, swelling, pain, drainage, streaking, fever, chills or other concerns PLAN: Plan Same as above
--- NOTE | 2025-07-07 13:20 | PHA.DC_ITS ---
Pharmacy [facility] has performed discharge medication counseling for this patient. The patient was counseled on the following discharge medications and changes in medications for homegoing review. - Oxycodone 5 mg tablet, Acetaminophen 500 mg tablet The Reason for Use, instructions for use, and potential side effects were reviewed for all new medications. The patient's questions regarding all of their medications were answered. The patient was able to verbally demonstrate an understanding of their discharge medications. Medications at Discharge Home Medications albuterol sulfate 90 mcg/actuation aerosol inhaler (Ventolin HFA) 2 puff inhalation Q4H PRN shortness of breath or wheezing #18 grams 02/19/24 levothyroxine 25 mcg tablet 25 mcg PO QDAY Filling as courtesy, pt needs to get from Primary #90 tabs 07/07/24 nitroglycerin 0.4 mg sublingual tablet 0.4 mg sublingual Q5M PRN Chest Pain #25 tabs 10/27/24 budesonide 160 mcg-glycopyr 9 mcg-formot 4.8 mcg/actuation HFA inhaler 2 inh inhalation BID ASTHMA 01/05/25 tiotropium bromide 2.5 mcg/actuation mist for inhalation (Spiriva Respimat) 2 inh inhalation DAILY Breathing problems 01/05/25 diltiazem HCl 240 mg capsule,extended release 24 hr (Cartia XT) 240 mg PO QDAY BP #90 caps 01/07/25 tramadol 50 mg tablet 50 mg PO Q8H PRN pain #21 tabs 05/27/25 Held on 07/06/25. Instructions: Do not take in conjunction with other narcotics; postoperative pain medication was prescribed guaifenesin 600 mg tablet,extended release 600 mg PO BID COPD 06/20/25 losartan 25 mg tablet 25 mg PO QHS BP 06/20/25 rivaroxaban 20 mg tablet (Xarelto) 20 mg PO QHS BLOOD THINNER 06/20/25 acetaminophen 500 mg tablet 1,000 mg (2 x 500 mg) PO Q6H #100 tabs 07/06/25 oxycodone 5 mg tablet 5 - 10 mg (1 - 2 x 5 mg) PO Q6H PRN pain 7 days #60 tabs 07/06/25
--- NOTE | 2025-07-08 09:02 | DS.PCM_ITS ---
Providers Date of Admission: 07/05/25 Primary Care Physician: Dr. Paresh Carranza MD Reason For Visit: ERAS, Right Total Hip Replacement [employer] Diagnosis Discharge Diagnosis (1) S/P total right hip arthroplasty: Status: Acute Code(s): Z96.641 - Presence of right artificial hip joint (2) Fall: Status: Acute Code(s): W19.XXXA - Unspecified fall, initial encounter Qualifiers: Encounter type: initial encounter Qualified Code(s): W19.XXXA - Unspecified fall, initial encounter (3) Abrasions of multiple sites: Status: Inactive Code(s): T07.XXXA - Unspecified multiple injuries, initial encounter Plan I would like to go ahead and get an x-ray of his right hip since he did have a follow-up with direct impact and abrasion to the right hip although low likelihood of bony pathology, Patient feels like he is ready for discharge home after discussion with him we agreed to keep him 1 more night to make sure there is no balance issues and he is ambulating safely he does have a son who lives in the basement. PT OT weightbearing as tolerated with hip or cautions DVT prophylaxis SCDs LYNDON hose he resumes his preoperative Xarelto. Pain control Tylenol and oxycodone. Plans for discharge home tomorrow. Medications at Discharge Home Medications albuterol sulfate 90 mcg/actuation aerosol inhaler (Ventolin HFA) 2 puff inhalation Q4H PRN shortness of breath or wheezing #18 grams 02/19/24 levothyroxine 25 mcg tablet 25 mcg PO QDAY Filling as courtesy, pt needs to get from Primary #90 tabs 07/07/24 nitroglycerin 0.4 mg sublingual tablet 0.4 mg sublingual Q5M PRN Chest Pain #25 tabs 10/27/24 budesonide 160 mcg-glycopyr 9 mcg-formot 4.8 mcg/actuation HFA inhaler 2 inh inhalation BID ASTHMA 01/05/25 tiotropium bromide 2.5 mcg/actuation mist for inhalation (Spiriva Respimat) 2 inh inhalation DAILY Breathing problems 01/05/25 diltiazem HCl 240 mg capsule,extended release 24 hr (Cartia XT) 240 mg PO QDAY BP #90 caps 01/07/25 tramadol 50 mg tablet 50 mg PO Q8H PRN pain #21 tabs 05/27/25 Held on 07/06/25. Instructions: Do not take in conjunction with other narcotics; postoperative pain medication was prescribed guaifenesin 600 mg tablet,extended release 600 mg PO BID COPD 06/20/25 losartan 25 mg tablet 25 mg PO QHS BP 06/20/25 rivaroxaban 20 mg tablet (Xarelto) 20 mg PO QHS BLOOD THINNER 06/20/25 acetaminophen 500 mg tablet 1,000 mg (2 x 500 mg) PO Q6H #100 tabs 07/06/25 oxycodone 5 mg tablet 5 - 10 mg (1 - 2 x 5 mg) PO Q6H PRN pain 7 days #60 tabs 07/06/25 Hospital Course Operations total hip replacement Summary of Care Provided Hospital Course: Patient with long-standing history of severe right hip DJD who is failed conservative treatment. Patient underwent total hip arthroplasty day of admission. Patient did receive pre-and postoperative antibiotics which were discontinued within 23 hours postoperatively. Patient did receive spinal anesthesia and postoperatively pain was controlled with both IV and p.o. pain medication. Patient did receive 2 g of tranexamic acid. hemoglobin and hematocrit were monitored postoperatively as well as vital signs and the patient did not require any blood transfusion. Dressing will be changed daily beginning postop day #3 before shower will be removed and replaced after. Pt was started on Xarelto 10 mg postop day #1 which was increased to his 20 mg preoperative dose on postop day #2 and he will continue upon discharge . Patient was seen by physical therapy was ambulating the halls well. On evening of postop day #0 patient did have a fall off of the commode landing onto his right hip and right forearm he did have a contusion to both and a laceration to his forearm that was superficial. He did have a x-ray of the hip there was no bony pathology or implant complication he did not have any significant increase in his pain and was able to continue to ambulate without difficulty. He was discharged on postop day #2 will follow-up in the office in 2 weeks. He will start outpatient physical therapy. Weight / BMI Weight Weight: 163 lb 2.273 oz Body Mass Index (BMI) 24.0 ABG / Lab / Microbiology Data 07/06/25 05:50 07/06/25 05:50 Microbiology: Microbiology 06/29/25 08:53 Swab (Method) Nasal Screen MRSA/MSSA - Final D/C Instructions Weight Bearing Status: Full weight bearing Call your doctor if you observe: Shortness of breath and Chest pain Additional Dressing/Incision Instructions: Do not shower for 72hrs. May Begin daily showering with warm water antibacterial soap postop day #3( 72hrs Post- operatively) and then daily. Leave the dressing on for 72 hours postoperatively then remove prior to first shower and change dressing daily after this until no drainage for 2 consecutive days then may leave open to air. If you decide not shower on Friday and wish to sponge bath only, then may leave dressing undisturbed for up to 1 week, but must remove prior to first shower. Do not submerge for 3 weeks. If not showering daily after the initial dressing is removed you must clean incision and change dressing daily after the dressing comes off, must come off by 7 days postop. Do not allow animals near the incision area. Keep clean. Follow hip precautions that were reviewed in hospital. Wear compression stockings, may remove at night. Start physical therapy as directed in hospital. Follow prescriptions instructions do not take any other pain medication or differ dosing without consulting your physician. Do not take oral NSAIDs until blood thinner has been completed , then may begin the day after completion if needed . Call Dr. Rojas's office with any concerns. DC O2, CPAP, BIPAP Needs Home O2 Discharge instructions: No Please Follow Up With: Deangelo Rojas DO When: 2 weeks Meaningful Use Info Meaningful Use Meaningful Use Diagnoses (Choose all that apply): None applicable Discharge Plan Admission Admit Date/Time: 07/05/25 05:31 Primary Reason for Your Visit: Right total hip arthroplasty Attending Provider: Deangelo Rojas Primary Care Provider: Paresh Carranza Discharge Orders/Prescriptions Prescriptions: New acetaminophen 500 mg tablet 1,000 mg PO Q6H Qty: 100 0RF oxycodone 5 mg tablet 5 - 10 mg PO Q6H PRN (Reason: pain) 7 Days Qty: 60 0RF Continued albuterol sulfate [Ventolin HFA] 90 mcg/actuation HFA aerosol inhaler 2 puff inhalation Q4H PRN (Reason: shortness of breath or wheezing) Qty: 18 6RF [id number] 160-9-4.8 mcg/actuation HFA aerosol inhaler 2 inh inhalation BID Spiriva Respimat 2.5 mcg/actuation mist 2 inh inhalation DAILY diltiazem HCl [Cartia XT] 240 mg capsule,extended release 24hr 240 mg PO QDAY Qty: 90 3RF losartan 25 mg tablet 25 mg PO QHS Xarelto 20 mg tablet 20 mg PO QHS Rx Instructions: must administer with evening meal guaifenesin 600 mg tablet extended release 600 mg PO BID levothyroxine 25 mcg tablet 25 mcg PO QDAY Qty: 90 0RF nitroglycerin 0.4 mg tablet, sublingual 0.4 mg SUBLINGUAL Q5M PRN (Reason: Chest Pain) Qty: 25 3RF Patient Comments: CHEST PAIN Held tramadol 50 mg tablet 50 mg PO Q8H PRN (Reason: pain) Qty: 21 0RF Hold Instructions: Do not take in conjunction with other narcotics; postoperative pain medication was prescribed Referrals / Follow Up: Paresh Carranza MD [Primary Care Provider, Family Practice] Disposition Disposition (needs filled in before D/C Order can be placed): Home, Self Care
--- NOTE | 2025-07-10 09:50 | NURSING ---
received a phone call from a Devon Martinez- Devon was attempting to get ahold of the staff member whom wheeled his father to the car- states she mentioned something they should do but could not remember what it was. Devon stated he could not remember what it was in regards to as well. Instructed Devon I could not definitely states who wheeled his father out but most likely would have been a PMO MANAGER and all instructions regarding discharge would have been directed from the RN. Devon denies any questions regarding discharge instructions. Instructed Devon that we are uable review or to give him any staff member's schedule. Devon insisted we write down his phone number as [phone] incase we find out who wheeled his father down and could ask them to call him.
== END 2025-07-07 14:00 | disposition home or self-care (01) | DRG 470 ==
LOC: ACINP 05:31 → MS3 12:49
PROVIDERS: Anesthesiology; Admitting Provider Orthopaedic Surgery; PCP Family Medicine; Referring Provider Orthopaedic Surgery; Visit Provider Orthopaedic Surgery
PROC: 8E0Y0CZ Robotic Assisted Procedure of Lower Extremity, Open Approach (ICD-10-PCS; CPT 27130; principal; 2025-07-05 07:00)
DX: M16.11 Unilateral primary osteoarthritis, right hip (principal); E78.5 Hyperlipidemia, unspecified; I12.9 Hypertensive chronic kidney disease with stage 1 through stage 4 chronic kidney disease, or unspecified chronic kidney disease; N18.9 Chronic kidney disease, unspecified; I25.10 Atherosclerotic heart disease of native coronary artery without angina pectoris; M54.16 Radiculopathy, lumbar region; M70.61 Trochanteric bursitis, right hip; S70.211A Abrasion, right hip, initial encounter; S51.819A Laceration without foreign body of unspecified forearm, initial encounter; S50.11XA Contusion of right forearm, initial encounter; W18.11XA Fall from or off toilet without subsequent striking against object, initial encounter; Z79.899 Other long term (current) drug therapy; Z95.5 Presence of coronary angioplasty implant and graft; Z79.01 Long term (current) use of anticoagulants; Y92.231 Patient bathroom in hospital as the place of occurrence of the external cause
CPT/HCPCS: 36415; 73502; 80048; 82962; 82985; 83036; 83735; 85025; 85610; 85730; 86850; 86900; 86901; 87081; 88304; 88305; 88311; 93005; 94640; 94668; 97116; 97162; 97165; 97530; 97535; C1776; A4216; J2405

== ENCOUNTER 2025-07-13 16:40 | Emergency (ER) | payer MEDICARE, OTHER, SELFPAY ==
[2025-07-13 16:40] VITALS: BP 137/74; PULSE 76; RESP 16; TEMP 37; O2SAT 99; BMI 26.4
--- NOTE | 2025-07-13 17:19 | EX.ED.DYSGE1 ---
HPI History of Present Illness Chief Complaint: Lower Extremity Injury [facility] Medical History Wears hearing aid Thyroid disease Ambulates with cane Arthritis History of renal disease Restless legs Back pain CPAP (continuous positive airway pressure) dependence COPD (chronic obstructive pulmonary disease) History of pain when walking History of atrial fibrillation Wears glasses History of echocardiogram History of stress test Hypertension Cardiology follow-up encounter History of CVA (cerebrovascular accident) (08/2012) Non-smoker Rheumatoid arthritis Carotid artery stenosis Pdkjj-Eagxvjkdy-Chzvw (WPW) syndrome Sick sinus syndrome Atherosclerosis of coronary artery of [place] heart without angina pectoris Segmental and somatic dysfunction of cervical region Segmental and somatic dysfunction of thoracic region Segmental and somatic dysfunction of lumbar region 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5 2 inh inhalation DAILY Breathing 01/05/25 07/05/25 History mcg/actuation mist for inhalation problems (Spiriva Respimat) diltiazem HCl 240 mg 240 mg PO QDAY BP #90 caps 01/07/25 07/05/25 Rx capsule,extended release 24 hr (Cartia XT) guaifenesin 600 mg tablet,extended 600 mg PO BID COPD 06/20/25 07/05/25 History release losartan 25 mg tablet 25 mg PO QHS BP 06/20/25 07/04/25 History rivaroxaban 20 mg tablet (Xarelto) 20 mg PO QHS BLOOD THINNER 06/20/25 06/30/25 History acetaminophen 500 mg tablet 1,000 mg (2 x 500 mg) PO Q6H #100 07/06/25 Unknown Rx tabs oxycodone 5 mg tablet 5 - 10 mg (1 - 2 x 5 mg) PO Q6H 07/06/25 Unknown Rx PRN pain 7 days #60 tabs Allergy/AdvReac Type Severity Reaction Status Date / Time Sulfa (Sulfonamide Allergy Mild Rash Verified 07/13/25 16:44 Antibiotics) clopidogrel (From Plavix) AdvReac Severe Other - Verified 07/13/25 16:44 genetic nonresponder, needs brillinta oxybutynin AdvReac Severe short of Verified 07/13/25 16:44 breath, very dry mouth metoprolol (From Lopressor) AdvReac Mild - Verified 07/13/25 16:44 bronchospasm nystatin AdvReac Unknown Unknown Verified 07/13/25 16:44 adhesive tape AdvReac Itching Verified 07/13/25 16:44 Family History Brother CVA (cerebral vascular accident) Carotid artery stenosis Father CVA (cerebral vascular accident) Carotid artery stenosis Mother Stomach cancer Surgical History History of cardiac catheterization History of nasal septoplasty History of shoulder surgery (01/2021) History of permanent cardiac pacemaker placement (12/08/12) History of spinal surgery History of herniorrhaphy History of left heart catheterization (08/02/19) History of coronary artery stent placement (07/23/13) Social History household members: spouse Smoking Status: Never smoker alcohol intake: never substance use type: does not use what type of physical activity do you participate in: walking EXAM Physical Exam Const Vital Signs: 07/13/25 16:40 Temperature 98.6 F Temperature Source Oral Pulse Rate 76 Respiratory Rate 16 Blood Pressure 137/74 H Blood Pressure Mean 95 Pulse Ox 99 Oxygen Delivery Method Room Air MDM MDM MDM Narrative Medical decision making narrative: HISTORY OF PRESENT ILLNESS: Chief complaint: Leg pain 74-year-old male history of DVT, A-fib on Xarelto presents with concern for DVT in right leg. Notes he had hip replacement done on 07/05/2025. States he developed swelling 4 days ago. Notes compliance with Xarelto. No missed doses. No bleeding diathesis noted. He does note a fall right after surgery however he noted he had negative x-rays at that time. REVIEW OF SYSTEMS: Pertinent positives: Leg pain/swelling Pertinent negatives: Chest pain, shortness of breath PHYSICAL EXAM: Nursing triage notes reviewed, Vital signs reviewed Constitutional: please see [facility] Extremities: 1-2+ pitting edema noted on left lower extremity. 2-3+ pitting edema in right lower extremity. Intact logroll with no pain with palpation. Surgical scar in the right lower abdomen and right hip are clean dry intact with no erythema or purulent discharge. Neuro: Intact sensation L1-S1 dermatomal distributions. Intact 5/5 strength in hip flexion (T12-L3). Knee extension (L2-L4). Ankle dorsiflexion (L4-L5). Ankle plantar flexion (S1). Great toe extension (L5). 2+ patellar and Achilles DTRs. Skin: Small red petechiae noted in the right lower extremity no cellulitic changes. No warmth. No palpable abscesses. MEDICAL DECISION MAKING: Chief Complaint: please see HPI External records reviewed: Reviewed medications. Patient is on Xarelto 20 mg daily. Reviewed prior imaging. Reviewed x-ray of the hip from 07/05/2025 as well as 07/06/2025. These were both read as negative for acute fracture or dislocation Factors affecting care: Recent hip surgery Social determinants of health: none History obtained from others: Orthopedic surgeon, , son Consults: orthopedic surgery (Dr. Kan) -discussed clinical concern for blood clot [facility] Narrative: The patient was initially hemodynamically stable, afebrile and nontoxic-appearing. Saturating 98% room air. Not tachycardic. He had no cardiopulmonary symptoms initially. Exam with right greater than left edema. Calf tenderness noted on the right side. I considered the following differential diagnosis: DVT, postop swelling I obtained duplex ultrasound to further determine if the patient was suffering from a life-threatening etiology. Gave oxycodone for pain control ALL IMAGES (IF OBTAINED) HAVE BEEN PERSONALLY REVIEWED AND INTERPRETED BY MYSELF. DVT ultrasound negative The synthesis of the patient's history, physical exam, imaging studies suggest likely postop swelling. No sign of DVT and as such no medication changes recommended this time. Outpatient follow-up with orthopedic surgeon recommended. Strict return precautions were discussed The patient and/or family, caregivers express understanding. The patient and/or family, caregivers agrees with the plan. Shared decision making: I will have a discussion with the patient and or visitors regarding risk/benefits of further testing or admission. They will be made aware of of the risk/benefits inherent in this decision they will be given the opportunity to voice understanding. Total critical care time today provided was at least 0 minutes. This excludes separately billable procedures. Critical care time (if documented) is secondary to the patient having high probability of clinically significant/life threatening deterioration in the patient's condition which required my urgent intervention. Impression: 1. Right leg swelling 2. History of DVT Dispo: Discharge home This note was generated with [employer] dictation software. It may contain incorrect words, spelling, and punctuation that were not noted in review of the chart prior to signing. Radiography Diagnostic Testing: Clinical Impression(s) from Imaging Studies Venous Duplex 07/13/25 17:23 IMPRESSION: No DVT. Reading [facility] Discharge Plan Triage Chief Complaint: Lower Extremity Injury ED Provider: Bigg Muñoz Dx/Rx/DC Orders Clinical Impression: Right leg swelling Instructions: ED Peripheral Edema, Unilateral Prescriptions: No Action albuterol sulfate [Ventolin HFA] 90 mcg/actuation HFA aerosol inhaler 2 puff inhalation Q4H PRN (Reason: shortness of breath or wheezing) Qty: 18 6RF [id number]-qnmrelks-yttrqcccgy 160-9-4.8 mcg/actuation HFA aerosol inhaler 2 inh inhalation BID Spiriva Respimat 2.5 mcg/actuation mist 2 inh inhalation DAILY diltiazem HCl [Cartia XT] 240 mg capsule,extended release 24hr 240 mg PO QDAY Qty: 90 3RF losartan 25 mg tablet 25 mg PO QHS Xarelto 20 mg tablet 20 mg PO QHS Rx Instructions: must administer with evening meal guaifenesin 600 mg tablet extended release 600 mg PO BID acetaminophen 500 mg tablet 1,000 mg PO Q6H Qty: 100 0RF oxycodone 5 mg tablet 5 - 10 mg PO Q6H PRN (Reason: pain) 7 Days Qty: 60 0RF levothyroxine 25 mcg tablet 25 mcg PO QDAY Qty: 90 0RF nitroglycerin 0.4 mg tablet, sublingual 0.4 mg SUBLINGUAL Q5M PRN (Reason: Chest Pain) Qty: 25 3RF Patient Comments: CHEST PAIN Primary Care Provider: Paresh Carranza Referrals: Deangelo Rojas DO [Med Staff - Active Staff, Orthopedics] Paresh Carranza MD [Primary Care Provider, Family Practice] Activity Restrictions/Additional Instructions: Thank you for trusting us with your care today! The ultrasound of your right leg was negative for a DVT. There was no sign of the deep vein thrombosis in your right leg Please take Tylenol (2 pills, 650 mg), and prescribed narcotic every 6 hours as needed for pain and fever control. Please return to the emergency department if your symptoms change or worsen. Please follow with your orthopedic surgeon for further outpatient evaluation and management. Print Language: Mongolian Disposition Disposition: Home, Self Care
--- NOTE | 2025-07-13 17:23 | US_ITS ---
PROCEDURE: VENOUS DUPLEX IMAG/LIMITED/UNI 07/13/2025 REASON FOR EXAM: M 74 y/o TECHNIQUE: Procedure Code: USVDUL Modality: US Procedure: VENOUS DUPLEX IMAG/LIMITED/UNI FINDINGS: There is no intraluminal echogenicity to suggest the presence of a deep venous thrombosis. Appropriate respiratory variation, augmentation and venous compression is noted. US/Venous Duplex Imag/Limited/Uni IMPRESSION: No DVT. Reading Location: [facility]
--- OUTSIDE RECORDS SUMMARY | 2025-07-13 17:59 | XMS RPT_ITS | CCD ---
Author Organization [facility] ion [facility] Care Team Providers Care Family Preservation Officer Name Role Phone Yaa Rosales Unavailable Unavailable [...] Referring Provider Dr. Jairon Dimas Attending Provider [phone] Dr. Chevy Rooney Attending Provider Nikita SHUTTLE FINAL INSPECTOR, SHUTTLE FINAL INSPECTOR-C Kathie Attending Provider Nikita SHUTTLE FINAL INSPECTOR, SHUTTLE FINAL INSPECTOR-C Kathie Referring Provider Babak MEDINA, SHUTTLE FINAL INSPECTOR-C Kerry Attending Provider Babak MEDINA, SHUTTLE FINAL INSPECTOR-C Kerry Referring Provider Babak MEDINA, SHUTTLE FINAL INSPECTOR-C Kerry Other Provider Argenis Mcgee Attending Provider [...] Dr. Reshma Arreola Referring Provider [phone] Roof SHUTTLE FINAL INSPECTOR, SHUTTLE FINAL INSPECTOR-C Jairo Serrato Attending Provider Dr. Paresh Carranza Referring Provider Argenis Mcgee Attending Provider Unavailable Dr. Paresh Carranza Primary Care Provider Roof SHUTTLE FINAL INSPECTOR, SHUTTLE FINAL INSPECTOR-C Jairo Serrato Attending Provider Dr. Paresh Carranza Primary Care Provider Dr. Paresh Carranza Referring Provider Argenis Mcgee Attending Provider Unavailable Roof SHUTTLE FINAL INSPECTOR, SHUTTLE FINAL INSPECTOR-C Jairo Serrato Attending Provider Dr. Paresh Carranza Primary Care Provider Dr. Chevy Rooney Attending Provider [phone] Chevy Rooney Referring Provider [phone] Paresh Carranza Referring Provider Roof SHUTTLE FINAL INSPECTOR, SHUTTLE FINAL INSPECTOR-C Jairo Serrato Attending Provider Paresh Carranza MD Primary Care Provider Dr. Paresh Carranza Primary Care Provider Dr. Paresh Carranza Primary Care Provider Dr. Paresh Carranza Referring Provider Roof SHUTTLE FINAL INSPECTOR, SHUTTLE FINAL INSPECTOR-C Jairo H Attending Provider Dr. Joao Dominguez [...] Provider Argenis Mcgee Attending Provider Unavailable Roof SHUTTLE FINAL INSPECTOR-C, Jairo H Attending Provider Roof SHUTTLE FINAL INSPECTOR-C, Jairo H Referring Provider Dr. Chevy Rooney MD Attending Provider Dr. Sj Rooney MDril Referring Provider Bob VALENCIA, Dr. Bright Attending Provider Bob VALENCIA, Dr. Bright Referring Provider Tere AMBROSIO, Dr. Yoder Primary Care Provider Tere AMBROSIO, Dr. Yoder Referring Provider Nevin AMBROSIO, Dr. Reece Attending Provider Roof SHUTTLE FINAL INSPECTOR-C, Jairo Serrato Attending Provider Tere AMBROSIO, Dr. Yoder Primary Care Physician Bob VALENCIA, Dr. Bright Attending Physician Nevin AMBROSIO, Dr. Reece Attending Physician Roof SHUTTLE FINAL INSPECTOR-C, Jairo Serrato Attending Physician Tere AMBROSIO, Dr. Yoder Primary Care Physician Tere AMBROSIO, Dr. Yoder Referring Provider Bob VALENCIA, Dr. Bright Attending Physician Tere AMBROSIO, Dr. Yoder Primary Care Physician Tere AMBROSIO, Dr. Yoder Referring Provider Roof SHUTTLE FINAL INSPECTOR-C, Jairo Serrato Attending Physician Roof SHUTTLE FINAL INSPECTOR-C, Jairo Serrato Referring Provider Nevin AMBROSIO, Dr. [...] Primary Care Unavailable BorruDeangelo gifford Attending Unavailable Carranza, Paresh Referring Unavailable Carranza, [...] sources) clopidogrel; Translations: [CLOPIDOGREL] Drug Allergy 1 [facility] (20 sources) Metoprolol; Translations: [METOPROLOL] Drug Allergy 1 [facility] (20 sources) Nystatin; Translations: [NYSTATIN] Drug Allergy 9 Other: See Comments [facility] (20 sources) oxybutynin; Translations: [OXYBUTYNIN] Drug Allergy 1 Shortness of Breath [facility] (20 sources) Sulfonamides (Antibiotic); Translations: [SULFA (SULFONAMIDE ANTIBIOTICS)] Allergy to substance 7 Hives, Shortness of Breath [facility] (6 sources) MEDICAL TAPE Propensity to adverse reactions 2 Itching [facility] Work Phone: (20 sources) Adhesive Tape; Translations: [adhesive tape] Propensity to adverse reactions 2 Itching [facility] Comment on above: MEDICAL TAPE (4 sources) Adhesive Tape; Translations: [ADHESIVE TAPE (ROSINS)] Propensity to adverse reactions to substance 4 [facility] (4 sources) sulfaSALAzine; Translations: [SULFASALAZINE] Drug Allergy 3 [facility] (1 source) clopidogrel Drug Allergy 5 [facility] Repository (1 source) Metoprolol Drug Allergy 5 [facility] (1 source) Nystatin Drug Allergy 5 [facility] (1 source) oxybutynin Drug Allergy 5 [facility] Rep[facility] Medications Current Medications Medication Drug Class(es) Dates Sig (Normalized) Sig (Original) [id number] 200 actuat albuterol 0.09 mg/actuat metered dose [...] 28, 2017 12:00am June 24, 2018 9:18am Xhavuegklb-Htexbimv-Xkvqcdvb ol (20 sources) Corticosteroid, beta2-Adrenergic Agonist Start: [...] 05, 2025 12:00am Start: 04-06-2024 End: 05-05-2024 Fwgusbvnau-Gcbxjzcd-Qkienthm ol (Breztri Aerosphere) 160-9-4.8 mcg/actuation HFA aerosol inhaler Discontinued NMA INHALATION April 06, 2024 12:00am May 05, 2024 2:11pm COPD Start: 04-06-2024 End: 05-05-2024 Ulhfnwurab-Tuybfxuw-Pfrdxfxz ol (Breztri Aerosphere) 160-9-4.8 mcg/actuation HFA aerosol [...] 12, 2022 1:00am take 1 capsule by [facility] once daily before breakfast levothyroxine 75 mcg [...] 3 mg/ml oral solution (20 sources) Uncompetitive C-jhhhzo-I-aspartate Receptor Antagonist, Sigma-1 Agonist Start: 2017 End: [...] SL Q5M February 11, 2019 10:00am nystatin [id number] unt/ml oral suspension (20 sources) Polyene Antifungal [...] 06-19-2023 04-23-2023 Episodic Conduction disorders (20 sources) Ewsji-Syrqdydin-Hggx e pattern; 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 [...] sources) Long-term current use of anticoagulant; Translations: [FDC (current) use of anticoagulants] Onset: 08-23-2013 08-15-2021 Episodic Other aftercare (20 sources) Drug therapy finding; Translations: [Other fci (current) drug therapy] 06-03-2022 Episodic Other aftercare (13 sources) Other 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 (current) drug therapy; Translations: [Long-term (current) use of other medications] Episodic Other aftercare (11 sources) Long-term current use of amiodarone; Translations: [Other 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 (current) drug therapy] 06-03-2022 Episodic Other bone [...] Onset: 06-19-2023 Episodic Other aftercare (10 sources) 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 (current) use of anticoagulants; Translations: [Long-term (current) [...] Absolute Lymph 1.61 X10 3/uL Normal 0.83-4.51 [facility] Comment on above: Performed By: #### L 100.0100, L500.4050 ####[facility] [address] [place], [address] Absolute Neut 3.3 X10 3/uL Normal 2.0-7.7 [facility] Comment on above: Performed By: #### L 100.0100, L500.4050 ####[facility] [address] [place], [address] Basophils/100 WBC (Bld) 0.9 % Normal 0-1 [facility] Comment on above: Performed By: #### L 100.0100, L500.4050 ####[facility] [address] [place], [address] Eosinophils/100 WBC (Bld) 0.4 % Normal 0-5 [facility] Comment on above: Performed By: #### L 100.0100, L500.4050 ####[facility] [address] [place], [address] Erythrocyte distribution width (RBC) [Ratio] 13.2 % Normal 11.6-14.6 [facility] Comment on above: Performed By: #### L 100.0100, L500.4050 ####[facility] [address] [place], [address] Hematocrit (Bld) [Volume fraction] 41.3 % Normal 40-54 [facility] Comment on above: Performed By: #### L 100.0100, L500.4050 ####[facility] [address] [place], [address] Hemoglobin (Bld) [Mass/Vol] 13.8 g/dL Normal 13.0-16.5 [facility] Comment on above: Performed By: #### L 100.0100, L500.4050 ####[facility] [address] [place], [address] IG% 0.200 Normal 0.0-0.9 [facility] Comment on above: Result Comment: IG% - Immature Granulocytes (promyelocytes, myelocytes and metamyelocytes) > 1% indicates that a LEFT SHIFT is Present. Performed By: #### L 100.0100, L500.4050 ####[facility] [address] [place], [address] Lymphocytes/100 WBC (Bld) 29.2 % Normal 19-41 [facility] Comment on above: Performed By: #### L 100.0100, L500.4050 ####[facility] [address] [place], [address] MCH (RBC) [Entitic mass] 31.6 pg Normal 27.0-32.0 [facility] Comment on above: Performed By: #### L 100.0100, L500.4050 ####[facility] [address] [place], [address] MCHC (RBC) [Mass/Vol] 33.4 g/dL Normal 32-36 [facility] Comment on above: Performed By: #### L 100.0100, L500.4050 ####[facility] [address] [place], [address] MCV (RBC) [Entitic vol] 94.5 fL High 80-94 [facility] Comment on above: Performed By: #### L 100.0100, L500.4050 ####[facility] [address] [place], [address] Monocytes/100 WBC (Bld) 10.3 % High 0-10 [facility] Comment on above: Performed By: #### L 100.0100, L500.4050 ####[facility] [address] [place], [address] Neutrophils/100 WBC (Bld) 59.0 % Normal 47-70 [facility] Comment on above: Performed By: #### L 100.0100, L500.4050 ####[facility] [address] [place], [address] Nucleated RBC (Bld) [#/Vol] 0 10*3/uL Normal 0-5 [facility] Comment on above: Performed By: #### L 100.0100, L500.4050 ####[facility] [address] [place], [address] Platelet mean volume (Bld) [Entitic vol] 9.2 fL Normal 6.2-12.0 [facility] Comment on above: Performed By: #### L 100.0100, L500.4050 ####[facility] [address] [place], [address] Platelets (Bld) [#/Vol] 297 10*3/uL Normal 150-450 [facility] Comment on above: Performed By: #### L 100.0100, L500.4050 ####[facility] [address] [place], [address] RBC (Bld) [#/Vol] 4.37 10*6/uL Low 4.6-6.[address] [facility] Comment on above: Performed By: #### L 100.0100, L500.4050 ####[facility] [address] [place], [address] RDW SD 46.0 fl High 35.1-43.9 [facility] Comment on above: Performed By: #### L 100.0100, L500.4050 ####[facility] [address] [place], [address] WBC (Bld) [#/Vol] 5.5 10*3/uL Normal 4.4-11.0 [facility] Comment on above: Performed By: #### L 100.0100, L500.4050 ####[facility] [address] [place], [address] Comprehensive Metabolic Prof ilon 06-13-2025 Albumin [Mass/Vol] 3.7 g/dL Normal 3.4-4.8 [facility] Comment on above: Performed By: #### L 100.0100, L500.4050 ####[facility] [address] [place], [address] Albumin/Globulin [Mass ratio] 1.8 {ratio} Normal 0.9-2.4 [facility] Comment on above: Performed By: #### L 100.0100, L500.4050 ####[facility] [address] [place], [address] ALK PHOS 73 U/L Normal 40-129 [facility] Comment on above: Performed By: #### L 100.0100, L500.4050 ####[facility] [address] [place], [address] ALT [Catalytic activity/Vol] 14 U/L Normal <=46 [facility] Comment on above: Performed By: #### L 100.0100, L500.4050 ####[facility] [address] [place], [address] AST [Catalytic activity/Vol] 20 U/L Normal <=37 [facility] Comment on above: Performed By: #### L 100.0100, L500.4050 ####[facility] [address] [place], [address] Bilirubin [Mass/Vol] 0.56 mg/dL Normal 0.00-1.30 [facility] Comment on above: Performed By: #### L 100.0100, L500.4050 ####[facility] [address] [place], [address] BUN/CRE 15.3 RATIO Normal 10-20 [facility] Comment on above: Performed By: #### L 100.0100, L500.4050 ####[facility] [address] [place], [address] Calcium [Mass/Vol] 9.7 mg/dL Normal 7.6-11.0 [facility] Comment on above: Performed By: #### L 100.0100, L500.4050 ####[facility] [address] [place], [address] Chloride [Moles/Vol] 105 mmol/L Normal 98-108 [facility] Comment on above: Performed By: #### L 100.0100, L500.4050 ####[facility] [address] [place], [address] CO2 [Moles/Vol] 21.6 mmol/L Normal 21.0-32.0 [facility] Comment on above: Performed By: #### L 100.0100, L500.4050 ####[facility] [address] [place], [address] Creatinine [Mass/Vol] 1.39 mg/dL High 0.70-1.20 [facility] Comment on above: Performed By: #### L 100.0100, L500.4050 ####[facility] [address] [place], [address] GAP 15 Normal 5-15 [facility] Comment on above: Performed By: #### L 100.0100, L500.4050 ####[facility] [address] [place], [address] GFR/1.73 sq M.predicted among non-blacks MDRD (S/P/Bld) [Vol rate/Area] 53 mL/min/{1.73_m2} Low >60 [facility] Comment on above: Result Comment: mL/m in/1.73m2 CKD-EPI Creatinine Equation (2020) Performed By: #### L 100.0100, L500.4050 ####[facility] [address] [place], [address] Globulin (S) [Mass/Vol] 2.1 g/dL Low 2.2-4.2 [facility] Comment on above: Performed By: #### L 100.0100, L500.4050 ####[facility] [address] [place], [address] Glucose [Mass/Vol] 86 mg/dL Normal 70-99 [facility] Comment on above: Performed By: #### L 100.0100, L500.4050 ####[facility] [address] [place], [address] Potassium [Moles/Vol] 4.0 mmol/L Normal 3.3-5.1 [facility] Comment on above: Performed By: #### L 100.0100, L500.4050 ####[facility] [address] [place], [address] Sodium [Moles/Vol] 142 mmol/L Normal 133-145 [facility] Comment on above: Performed By: #### L 100.0100, L500.4050 ####[facility] [address] [place], [address] T PROT 5.9 g/dL Normal 5.9-8.4 [facility] Comment on above: Performed By: #### L 100.0100, L500.4050 ####[facility] [address] [place], [address] Urea nitrogen [Mass/Vol] 21 mg/dL High 4-19 [facility] Comment on above: Performed By: #### L 100.0100, L500.4050 ####[facility] [address] [place], [address] CT CHEST WO IVCONon 06-01-20 CT CHEST WO IVCON * * *Final Report* * * DATE OF EXAM: Jun 01 2025 3:44PM [facility] 0541 - CT CHEST WO IVCON [...] obtained in 12 months --END OF FINDING-- [employer]: YOVANA Transcribe Date/Time: Jun 06 2025 9:13A Dictated by : DAMI PEREZ MD This examination was interpreted and the report reviewed and electronically signed by: CARLOS MANUEL ZELAYA MD on Jun 06 2025 11:52AM EST [id number] ACTIONABLE Invalid Interpretation Code [facility] Extremity Lower without Cont raon 05-24-2025 Extremity Lower without Contra [facility] [address] [place] [address] Extremity Lower without Contra MR#: [id number] Acct: [id number] Name: BRIGETTE HOLGUIN Rep #: [id number] : 1950 M 74 From: [place] MD PCP: Dr. Paresh Carranza MD Status: REG CLI Study: Extremity Lower without Contra Date of Exam: Exam# [id number] Ordering Dr: Deangelo Rojas DO PROCEDURE: EXTREMITY [...] cyst formation, and marginal osteophytes. Reading Location: [facility] CC: Dr. Deangelo Rojas DO; Dr. Paresh Carranza MD [employer]: Signed Normal [facility] Absolute lymphocyte countOrd ered By: Jairon Strickland on 05-19-2025 Lymphocytes Auto (Unsp spec) [#/Vol] 1.69 10*3/uL 0.83-4.51 [facility] Absolute neutrophil countOrd ered By: Jairon Strickland on 05-19-2025 Neutrophils (Bld) [#/Vol] 4.3 10*3/uL 2.0-7.7 [facility] Automated lymphocyte count a s percentage of total leukocytesOrdered By: Jairon Strickland on 05-19-2025 Lymphocytes/100 WBC Auto (Unsp spec) 25.2 % 19-41 [facility] Basophil percentageOrdered B y: Jairon Strickland on 05-19-2025 Basophils/100 WBC (Bld) 0.6 % 0-1 [facility] CBC W/Diff, Automatedon 05-04 Absolute Lymph 1.69 X10 3/uL Normal 0.83-4.51 [facility] Comment on above: Performed By: #### L 100.0100 ####[facility] [address] [place], [address] Absolute Neut 4.3 X10 3/uL Normal 2.0-7.7 [facility] Comment on above: Performed By: #### L 100.0100 ####[facility] [address] [place], [address] Basophils/100 WBC (Bld) 0.6 % Normal 0-1 [facility] Comment on above: Performed By: #### L 100.0100 ####[facility] [address] [place], [address] Eosinophils/100 WBC (Bld) 0.1 % Normal 0-5 [facility] Comment on above: Performed By: #### L 100.0100 ####[facility] [address] [place], [address] Erythrocyte distribution width (RBC) [Ratio] 13.3 % Normal 11.6-14.6 [facility] Comment on above: Performed By: #### L 100.0100 ####[facility] [address] [place], [address] Hematocrit (Bld) [Volume fraction] 37.4 % Low 40-54 [facility] Comment on above: Performed By: #### L 100.0100 ####[facility] [address] [place], [address] Hemoglobin (Bld) [Mass/Vol] 12.5 g/dL Low 13.0-16.5 [facility] Comment on above: Performed By: #### L 100.0100 ####[facility] [address] [place], [address] IG% 0.300 Normal 0.0-0.9 [facility] Comment on above: Result Comment: IG% - Immature Granulocytes (promyelocytes, myelocytes and metamyelocytes) > 1% indicates that a LEFT SHIFT is Present. Performed By: #### L 100.0100 ####[facility] [address] [place], [address] Lymphocytes/100 WBC (Bld) 25.2 % Normal 19-41 [facility] Comment on above: Performed By: #### L 100.0100 ####[facility] [address] [place], [address] MCH (RBC) [Entitic mass] 31.6 pg Normal 27.0-32.0 [facility] Comment on above: Performed By: #### L 100.0100 ####[facility] [address] [place], [address] MCHC (RBC) [Mass/Vol] 33.4 g/dL Normal 32-36 [facility] Comment on above: Performed By: #### L 100.0100 ####[facility] [address] [place], [address] MCV (RBC) [Entitic vol] 94.7 fL High 80-94 [facility] Comment on above: Performed By: #### L 100.0100 ####[facility] [address] [place], [address] Monocytes/100 WBC (Bld) 10.1 % High 0-10 [facility] Comment on above: Performed By: #### L 100.0100 ####[facility] [address] [place], [address] Neutrophils/100 WBC (Bld) 63.7 % Normal 47-70 [facility] Comment on above: Performed By: #### L 100.0100 ####[facility] [address] [place], [address] Nucleated RBC (Bld) [#/Vol] 0 10*3/uL Normal 0-5 [facility] Comment on above: Performed By: #### L 100.0100 ####[facility] [address] [place], [address] Platelet mean volume (Bld) [Entitic vol] 9.6 fL Normal 6.2-12.0 [facility] Comment on above: Performed By: #### L 100.0100 ####[facility] [address] [place], [address] Platelets (Bld) [#/Vol] 269 10*3/uL Normal 150-450 [facility] Comment on above: Performed By: #### L 100.0100 ####[facility] [address] [place], [address] RBC (Bld) [#/Vol] 3.95 10*6/uL Low 4.6-6.[address] [facility] Comment on above: Performed By: #### L 100.0100 ####[facility] [address] [place], [address] RDW SD 47.2 fl High 35.1-43.9 [facility] Comment on above: Performed By: #### L 100.0100 ####[facility] [address] [place], [address] WBC (Bld) [#/Vol] 6.7 10*3/uL Normal 4.4-11.0 [facility] Comment on above: Performed By: #### L 100.0100 ####[facility] [address] [place], [address] Eosinophil percentageOrdered By: Jairon Strickland on 05-19-2025 Eosinophils/100 WBC (Bld) 0.1 % 0-5 [facility] Erythrocyte distribution wid th ratioOrdered By: Jairon Strickland on 05-19-2025 Erythrocyte distribution width (RBC) [Ratio] 13.3 % 11.6-14.6 [facility] Erythrocyte distribution wid th standard deviationOrdered By: Jairon Strickland on 05-19-2025 Erythrocyte distribution width (RBC) [Ratio] 47.2 fl High 35.1-43.9 [facility] Hematocrit Auto (Bld) [Volum e fraction]Ordered By: Jairon Strickland on 05-19-2025 Hematocrit (Bld) [Volume fraction] 37.4 % Low 40-54 [facility] Hemoglobin measurementOrdere d By: Jairon Strickland on 05-19-2025 Hemoglobin (Bld) [Mass/Vol] 12.5 g/dL Low 13.0-16.5 [facility] Immature granulocytes/100 WB C Auto (Bld)Ordered By: Jairon Strickland on 05-19-2025 Immature granulocytes/100 WBC (Bld) 0.300 % 0.0-0.9 [facility] Comment on above: IG% - Immature Granu locytes (promyelocytes, myelocytes and metamyelocytes) > 1% indicates that a LEFT SHIFT is Present. MCV (mean corpuscular volume ) determinationOrdered By: Jairon Strickland on 05-19-2025 MCV (RBC) [Entitic vol] 94.7 fL High 80-94 [facility] Mean corpuscular hemoglobin (MCH) determinationOrdered By: Jairon Strickland on 05-19-2025 MCH (RBC) [Entitic mass] 31.6 pg 27.0-32.0 [facility] Mean corpuscular hemoglobin concentration (MCHC) determinationOrdered By: Jairon Strickland on 05-19-2025 MCHC (RBC) [Mass/Vol] 33.4 g/dL 32-36 [facility] Mean platelet volume determi nationOrdered By: Jairon Strickland on 05-19-2025 Platelet mean volume (Bld) [Entitic vol] 9.6 fL 6.2-12.0 [facility] Monocyte percentageOrdered B y: Jairon Strickland on 05-19-2025 Monocytes/100 WBC (Bld) 10.1 % High 0-10 [facility] Neutrophil percentageOrdered By: Jairon Strickland on 05-19-2025 Neutrophils/100 WBC (Bld) 63.7 % 47-70 [facility] Nucleated red blood cell per centageOrdered By: Jairon Strickland on 05-19-2025 Nucleated RBC/100 WBC (Bld) [Ratio] 0 % 0-5 [facility] Platelet countOrdered By: Amee Strickland on 05-19-2025 Platelets (Bld) [#/Vol] 269 10*3/uL 150-450 [facility] RBC Auto (Bld) [#/Vol]Ordere d By: Jairon Strickland on 05-19-2025 RBC (Bld) [#/Vol] 3.95 10*6/uL Low 4.6-6.[address] [facility] White blood cell (WBC) count Ordered By: Jairon Strickland on 05-19-2025 WBC (Bld) [#/Vol] 6.7 10*3/uL 4.4-11.0 [facility] Absolute lymphocyte countOrd ered By: Jairo Grande on 05-10-2025 Lymphocytes Auto (Unsp spec) [#/Vol] 1.49 10*3/uL 0.83-4.51 [facility] Absolute neutrophil countOrd ered By: Jairo Grande on 05-10-2025 Neutrophils (Bld) [#/Vol] 4.8 10*3/uL 2.0-7.7 [facility] Anion gap in Serum or Plasma Ordered By: Jairo Grande on 05-10-2025 Anion gap [Moles/Vol] 12 mmol/L 5- [facility] Automated lymphocyte count a s percentage of total leukocytesOrdered By: Jairo Grande on 05-10-2025 Lymphocytes/100 WBC Auto (Unsp spec) 20.9 % [facility] BUN/creatinine ratioOrdered By: Jairo Grande on 05-10-2025 Urea nitrogen/Creatinine [Mass ratio] 14.8 mg/mg 05-23 [facility] Basic Metabolic Profile (BMP )on 05-10-2025 BUN/CRE 14.8 RATIO Normal 05-23 [facility] Comment on above: Performed By: #### L 501.9520, L100.0100, L500.2500, L500.4100, L500.3400 ####[facility] [address] [place], [address] Calcium [Mass/Vol] 10.1 mg/dL Normal 7.6-11.0 [facility] Comment on above: Performed By: #### L 501.9520, L100.0100, L500.2500, L500.4100, L500.3400 ####[facility] [address] [place], [address] Chloride [Moles/Vol] 106 mmol/L Normal 98-108 [facility] Comment on above: Performed By: #### L 501.9520, L100.0100, L500.2500, L500.4100, L500.3400 ####[facility] [address] [place], [address] CO2 [Moles/Vol] 23.4 mmol/L Normal 21.0-32.0 [facility] Comment on above: Performed By: #### L 501.9520, L100.0100, L500.2500, L500.4100, L500.3400 ####[facility] [address] [place], [address] Creatinine [Mass/Vol] 1.28 mg/dL High 0.70-1.20 [facility] Comment on above: Performed By: #### L 501.9520, L100.0100, L500.2500, L500.4100, L500.3400 ####[facility] [address] [place], [address] GAP 12 Normal 5-15 [facility] Comment on above: Performed By: #### L 501.9520, L100.0100, L500.2500, L500.4100, L500.3400 ####[facility] [address] [place], [address] GFR/1.73 sq M.predicted among non-blacks MDRD (S/P/Bld) [Vol rate/Area] 59 mL/min/{1.73_m2} Low >60 [facility] Comment on above: Result Comment: mL/m in/1.73m2 CKD-EPI Creatinine Equation (2020) Performed By: #### L 501.9520, L100.0100, L500.2500, L500.4100, L500.3400 ####[facility] [address] [place], [address] Glucose [Mass/Vol] 99 mg/dL Normal 70-99 [facility] Comment on above: Performed By: #### L 501.9520, L100.0100, L500.2500, L500.4100, L500.3400 ####[facility] [address] [place], [address] Potassium [Moles/Vol] 4.5 mmol/L Normal 3.3-5.1 [facility] Comment on above: Performed By: #### L 501.9520, L100.0100, L500.2500, L500.4100, L500.3400 ####[facility] [address] [place], [address] Sodium [Moles/Vol] 142 mmol/L Normal 133-145 [facility] Comment on above: Performed By: #### L 501.9520, L100.0100, L500.2500, L500.4100, L500.3400 ####[facility] [address] [place], [address] Urea nitrogen [Mass/Vol] 19 mg/dL Normal 4-19 [facility] Comment on above: Performed By: #### L 501.9520, L100.0100, L500.2500, L500.4100, L500.3400 ####[facility] [address] [place], [address] Basophil percentageOrdered B y: Jairo Grande on 05-10-2025 Basophils/100 WBC (Bld) 0.6 % 0-1 [facility] Bilirubin directOrdered By: Jairo Grande on 05-10-2025 Bilirubin.direct [Mass/Vol] 0.24 mg/dL 0.00-0.30 [facility] Bilirubin, totalOrdered By: Jairo Grande on 05-10-2025 Bilirubin [Mass/Vol] 0.56 mg/dL 0.00-1.30 [facility] CBC W/Diff, Automatedon Absolute Lymph 1.49 X10 3/uL Normal 0.83-4.51 [facility] Comment on above: Performed By: #### L 501.9520, L100.0100, L500.2500, L500.4100, L500.3400 ####[facility] [address] [place], [address] Absolute Neut 4.8 X10 3/uL Normal 2.0-7.7 [facility] Comment on above: Performed By: #### L 501.9520, L100.0100, L500.2500, L500.4100, L500.3400 ####[facility] [address] [place], [address] Basophils/100 WBC (Bld) 0.6 % Normal 0-1 [facility] Comment on above: Performed By: #### L 501.9520, L100.0100, L500.2500, L500.4100, L500.3400 ####[facility] [address] [place], [address] Eosinophils/100 WBC (Bld) 0.1 % Normal 0-5 [facility] Comment on above: Performed By: #### L 501.9520, L100.0100, L500.2500, L500.4100, L500.3400 ####[facility] [address] [place], [address] Erythrocyte distribution width (RBC) [Ratio] 13.8 % Normal 11.6-14.6 [facility] Comment on above: Performed By: #### L 501.9520, L100.0100, L500.2500, L500.4100, L500.3400 ####[facility] [address] [place], [address] Hematocrit (Bld) [Volume fraction] 39.9 % Low 40-54 [facility] Comment on above: Performed By: #### L 501.9520, L100.0100, L500.2500, L500.4100, L500.3400 ####[facility] [address] [place], [address] Hemoglobin (Bld) [Mass/Vol] 13.5 g/dL Normal 13.0-16.5 [facility] Comment on above: Performed By: #### L 501.9520, L100.0100, L500.2500, L500.4100, L500.3400 ####[facility] [address] [place], [address] IG% 0.400 Normal 0.0-0.9 [facility] Comment on above: Result Comment: IG% - Immature Granulocytes (promyelocytes, myelocytes and metamyelocytes) > 1% indicates that a LEFT SHIFT is Present. Performed By: #### L 501.9520, L100.0100, L500.2500, L500.4100, L500.3400 ####[facility] [address] [place], [address] Lymphocytes/100 WBC (Bld) 20.9 % Normal 19-41 [facility] Comment on above: Performed By: #### L 501.9520, L100.0100, L500.2500, L500.4100, L500.3400 ####[facility] [address] [place], [address] MCH (RBC) [Entitic mass] 32.1 pg High 27.0-32.0 [facility] Comment on above: Performed By: #### L 501.9520, L100.0100, L500.2500, L500.4100, L500.3400 ####[facility] [address] [place], [address] MCHC (RBC) [Mass/Vol] 33.8 g/dL Normal 32-36 [facility] Comment on above: Performed By: #### L 501.9520, L100.0100, L500.2500, L500.4100, L500.3400 ####[facility] [address] [place], [address] MCV (RBC) [Entitic vol] 95.0 fL High 80-94 [facility] Comment on above: Performed By: #### L 501.9520, L100.0100, L500.2500, L500.4100, L500.3400 ####[facility] [address] [place], [address] Monocytes/100 WBC (Bld) 10.6 % High 0-10 [facility] Comment on above: Performed By: #### L 501.9520, L100.0100, L500.2500, L500.4100, L500.3400 ####[facility] [address] [place], [address] Neutrophils/100 WBC (Bld) 67.4 % Normal 47-70 [facility] Comment on above: Performed By: #### L 501.9520, L100.0100, L500.2500, L500.4100, L500.3400 ####[facility] [address] [place], [address] Nucleated RBC (Bld) [#/Vol] 0 10*3/uL Normal 0-5 [facility] Comment on above: Performed By: #### L 501.9520, L100.0100, L500.2500, L500.4100, L500.3400 ####[facility] [address] [place], [address] Platelet mean volume (Bld) [Entitic vol] 9.1 fL Normal 6.2-12.0 [facility] Comment on above: Performed By: #### L 501.9520, L100.0100, L500.2500, L500.4100, L500.3400 ####[facility] [address] [place], [address] Platelets (Bld) [#/Vol] 268 10*3/uL Normal 150-450 [facility] Comment on above: Performed By: #### L 501.9520, L100.0100, L500.2500, L500.4100, L500.3400 ####[facility] [address] [place], [address] RBC (Bld) [#/Vol] 4.20 10*6/uL Low 4.6-6.[address] [facility] Comment on above: Performed By: #### L 501.9520, L100.0100, L500.2500, L500.4100, L500.3400 ####[facility] [address] [place], [address] RDW SD 48.4 fl High 35.1-43.9 [facility] Comment on above: Performed By: #### L 501.9520, L100.0100, L500.2500, L500.4100, L500.3400 ####[facility] [address] [place], [address] WBC (Bld) [#/Vol] 7.1 10*3/uL Normal 4.4-11.0 [facility] Comment on above: Performed By: #### L 501.9520, L100.0100, L500.2500, L500.4100, L500.3400 ####[facility] [address] [place], [address] Calculated very low density lipoprotein (VLDL) cholesterol measurementOrdered By: Jairo Grande on 05-10-2025 Calculated very low density lipoprotein (VLDL) cholesterol measurement 17 mg/dL 5-40 [facility] Carbon dioxide, total [Moles /volume] in Central venous bloodOrdered By: Jairo Grande on 05-10-2025 CO2 [Moles/Vol] 23.4 mmol/L 21.0-32.0 [facility] Cardiology Visit Reporton Cardiology Visit Report [facility] [address] [place], [place] [address] OFFICE VISIT Date of Service: 05/10/25 MR#: [id number] Acct: [id number] Name: BRIGETTE HOLGUIN Rep #: [id number] : 1950 Provider: ANABEL palmer Age/Sex: 74/M [place] [facility] [place] Status: Signed HPI HPI History of Present Illness Details: Mr. Holguin is a 74-year-old white male, who presents today for outpatient cardiovascular followup. As you know, he has a history of hypertension, hypercholesterolemia, paroxysmal atrial fibrillation, coronary artery disease status post angioplasty and drug-eluting stenting to the LAD at [facility] on 07/23/13. 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 Normal [facility] Chloride assayOrdered By: Charlotte Grande on 05-10-2025 Chloride [Moles/Vol] 106 mmol/L 98-108 [facility] Eosinophil percentageOrdered By: Jairo Grande on 05-10-2025 Eosinophils/100 WBC (Bld) 0.1 % 0-5 [facility] Erythrocyte distribution wid th ratioOrdered By: Jairo Grande on 05-10-2025 Erythrocyte distribution width (RBC) [Ratio] 13.8 % 11.6-14.6 [facility] Erythrocyte distribution wid th standard deviationOrdered By: Jairo Grande on 05-10-2025 Erythrocyte distribution width (RBC) [Ratio] 48.4 fl High 35.1-43.9 [facility] Glomerular filtration rate ( GFR) estimation/1.73 sq m using serum, plasma, or whole bOrdered By: Jairo Grande on 05-10-2025 GFR/1.73 sq M.predicted among non-blacks MDRD (S/P/Bld) [Vol rate/Area] 59 mL/min/{1.73_m2} Low >60 [facility] Comment on above: mL/min/1.73m2 CKD-EP I Creatinine Equation (2020) Hematocrit Auto (Bld) [Volum e fraction]Ordered By: Jairo Grande on 05-10-2025 Hematocrit (Bld) [Volume fraction] 39.9 % Low 40-54 [facility] Hemoglobin measurementOrdere d By: Jairo Grande on 05-10-2025 Hemoglobin (Bld) [Mass/Vol] 13.5 g/dL 13.0-16.5 [facility] Immature granulocytes/100 WB C Auto (Bld)Ordered By: Jairo Grande on 05-10-2025 Immature granulocytes/100 WBC (Bld) 0.400 % 0.0-0.9 [facility] Comment on above: IG% - Immature Granu locytes (promyelocytes, myelocytes and metamyelocytes) > 1% indicates that a LEFT SHIFT is Present. LDL calc ser/plasOrdered By: Jairo Grande on 05-10-2025 Cholesterol in LDL [Mass/Vol] 105 mg/dL [facility] Comment on above: Soakynfsqg=913-702 m g/dL & Higher Eobw=979 mg/dL or greaterFriedwald Equation for LDL-C Laboratory - Chemistry and C hemistry - challengeOrdered By: Jairo Grande on 05-10-2025 AST [Catalytic activity/Vol] 23 U/L <38 [facility] Lipid Profileon 05-10-2025 CHOL:HDL 3.15 Normal [facility] Comment on above: Performed By: #### L 501.9520, L100.0100, L500.2500, L500.4100, L500.3400 ####[facility] [address] [place], [address] Cholesterol [Mass/Vol] 179 mg/dL Normal <=200 [facility] Comment on above: Result Comment: Chol esterol level, Desirable <200 mg/dL Borderline high cholesterol 200-239 mg/dL High cholesterol >=240 mg/dL Recommendations of the NCEP Adult Treatment Panel for the following risk-cutoff thresholds for the [place] population. Performed By: #### L 501.9520, L100.0100, L500.2500, L500.4100, L500.3400 ####[facility] [address] [place], [address] Cholesterol in HDL [Mass/Vol] 57 mg/dL Normal [facility] Comment on above: Result Comment: Ivy onal Cholesterol Education Program (NCEP) guidelines: <40 mg/dL: Low HDL-cholesterol (major risk factor for CHD) >= 60 mg/dL: High HDL-cholesterol (negative risk factor for CHD) HDL-cholesterol is affected by a number of factors, e.g. smoking, exercise, hormones, sex and age. Performed By: #### L 501.9520, L100.0100, L500.2500, L500.4100, L500.3400 ####[facility] [address] [place], [address] Cholesterol in LDL [Mass/Vol] 105 mg/dL Normal [facility] Comment on above: Result Comment: Bord kpaxtq=073-052 mg/dL Higher Epdi=439 mg/dL or greater [place] Equation for LDL-C Performed By: #### L 501.9520, L100.0100, L500.2500, L500.4100, L500.3400 ####[facility] [address] [place], [address] Cholesterol in VLDL [Mass/Vol] 17 mg/dL Normal 5-40 [facility] Comment on above: Performed By: #### L 501.9520, L100.0100, L500.2500, L500.4100, L500.3400 ####[facility] [address] [place], [address] Triglyceride [Mass/Vol] 86 mg/dL Normal [facility] Comment on above: Result Comment: The drugs N-Acetylcysteine and Metamizole may falsely depress this assay. Normal range: <150 mg/dL Borderline High: 150-199 mg/dL High: 200-499 mg/dL Very High: >500 mg/dL Performed By: #### L 501.9520, L100.0100, L500.2500, L500.4100, L500.3400 ####[facility] [address] [place], [address] Liver Profileon 05-10-2025 Albumin [Mass/Vol] 4.2 g/dL Normal 3.4-4.8 [facility] Comment on above: Performed By: #### L 501.9520, L100.0100, L500.2500, L500.4100, L500.3400 ####[facility] [address] [place], [address] ALK PHOS 70 U/L Normal 40-129 [facility] Comment on above: Performed By: #### L 501.9520, L100.0100, L500.2500, L500.4100, L500.3400 ####[facility] [address] [place], [address] ALT [Catalytic activity/Vol] 17 U/L Normal <=46 [facility] Comment on above: Performed By: #### L 501.9520, L100.0100, L500.2500, L500.4100, L500.3400 ####[facility] [address] [place], [address] AST [Catalytic activity/Vol] 23 U/L Normal <=37 [facility] Comment on above: Performed By: #### L 501.9520, L100.0100, L500.2500, L500.4100, L500.3400 ####[facility] [address] [place], [address] Bilirubin [Mass/Vol] 0.56 mg/dL Normal 0.00-1.30 [facility] Comment on above: Performed By: #### L 501.9520, L100.0100, L500.2500, L500.4100, L500.3400 ####[facility] [address] [place], [address] Bilirubin.direct [Mass/Vol] 0.24 mg/dL Normal 0.00-0.30 [facility] Comment on above: Performed By: #### L 501.9520, L100.0100, L500.2500, L500.4100, L500.3400 ####[facility] [address] [place], [address] Globulin (S) [Mass/Vol] 2.4 g/dL Normal 2.2-4.2 [facility] Comment on above: Performed By: #### L 501.9520, L100.0100, L500.2500, L500.4100, L500.3400 ####[facility] [address] [place], [address] T PROT 6.5 g/dL Normal 5.9-8.4 [facility] Comment on above: Performed By: #### L 501.9520, L100.0100, L500.2500, L500.4100, L500.3400 ####[facility] [address] [place], [address] MCV (mean corpuscular volume ) determinationOrdered By: Jairo Grande on 05-10-2025 MCV (RBC) [Entitic vol] 95.0 fL High 80-94 [facility] Mean corpuscular hemoglobin (MCH) determinationOrdered By: Jairo Grande on 05-10-2025 MCH (RBC) [Entitic mass] 32.1 pg High 27.0-32.0 [facility] Mean corpuscular hemoglobin concentration (MCHC) determinationOrdered By: Jairo Grande on 05-10-2025 MCHC (RBC) [Mass/Vol] 33.8 g/dL 32-36 [facility] Mean platelet volume determi nationOrdered By: Jairo Grande on 05-10-2025 Platelet mean volume (Bld) [Entitic vol] 9.1 fL 6.2-12.0 [facility] Monocyte percentageOrdered B y: Jairo Grande on 05-10-2025 Monocytes/100 WBC (Bld) 10.6 % High 0-10 [facility] Neutrophil percentageOrdered By: Jairo Grande on 05-10-2025 Neutrophils/100 WBC (Bld) 67.4 % 47-70 [facility] Nucleated red blood cell per centageOrdered By: Jairo Grande on 05-10-2025 Nucleated RBC/100 WBC (Bld) [Ratio] 0 % 0-5 [facility] Pacemaker Checkon 05-10-2025 Pacemaker Check [facility] [address] [place], [place] [address] Pacemaker Check Date of Service: 05/10/25 1607 MR#: [id number] Acct: [id number] Name: BRIGETTE HOLGUIN Rep #: [id number] : 1950 From: Argenis Mcgee Age/Sex: 74/M Location: [facility] [place] Status: Signed Billing Codes PM Device Codes: 85737 PM Dev Prog Eval, Dual Assessment and Plan Assessment and Plan (1) History of permanent cardiac pacemaker placement: Status: Acute Comment: 06/2023 (2) Sick sinus syndrome: Status: Chronic (3) Hudgb-Llyzsbkqz-Uumcf (WPW) syndrome: Status: Chronic Plan Details Goals Barriers: Goals Decrease pain Decrease inflammation Improve ROM Barriers cervical disc herniation previous lumbar surgery 05/10/25 1608 Date Argenis Pulido Signature: Date (if applicable) CC: Normal [facility] Platelet countOrdered By: Charlotte Grande on 05-10-2025 Platelets (Bld) [#/Vol] 268 10*3/uL 150-450 [facility] Potassium measurement (mass/ volume)Ordered By: Jairo Grande on 05-10-2025 Potassium (Unsp spec) [Mass/Vol] 4.5 mmol/L 3.3-5.1 [facility] RBC Auto (Bld) [#/Vol]Ordere d By: Jairo Grande on 05-10-2025 RBC (Bld) [#/Vol] 4.20 10*6/uL Low 4.6-6.[address] [facility] Screening total cholesterol/ high density lipoprotein (HDL) cholesterol ratioOrdered By: Jairo Grande on 05-10-2025 Cholesterol.total/Chol esterol in HDL [Mass ratio] 3.15 {ratio} [facility] Serum creatinine measurement (mass/volume)Ordered By: Jairo Grande on 05-10-2025 Creatinine [Mass/Vol] 1.28 mg/dL High 0.70-1.20 [facility] Serum globulin measurementOr dered By: Jairo Grande on 05-10-2025 Globulin (S) [Mass/Vol] 2.4 g/dL 2.2-4.2 [facility] Serum glucose measurement (m ass/volume)Ordered By: Jairo Grande on 05-10-2025 Glucose [Mass/Vol] 99 mg/dL 70-99 [facility] Serum or plasma alanine chavez otransferase (ALT) measurementOrdered By: Jairo Grande on 10-07-2025 ALT [Catalytic activity/Vol] 17 U/L <47 [facility] Serum or plasma albumin gm urement (mass/volume)Ordered By: Jairo Grande on 05-10-2025 Albumin [Mass/Vol] 4.2 g/dL 3.4-4.8 [facility] Serum or plasma alkaline lynn sphatase measurementOrdered By: Jairo Grande on 05-10-2025 ALP [Catalytic activity/Vol] 70 U/L 40-129 [facility] Serum or plasma calcium gm urement (mass/volume)Ordered By: Jairo Grande on 05-10-2025 Calcium [Mass/Vol] 10.1 mg/dL 7.6-11.0 [facility] Serum or plasma cholesterol in HDL measurement (mass/volume)Ordered By: Jairo Grande on 05-10-2025 Cholesterol in HDL [Mass/Vol] 57 mg/dL >40 [facility] Comment on above: National Cholesterol Education Program (NCEP) guidelines:<40 mg/dL: Low HDL-cholesterol (major risk factor for CHD)>= 60 mg/dL: High HDL-cholesterol (negative risk factor for CHD)HDL-cholesterol is affected by a number of factors, e.g. smoking, exercise, hormones, sex and age. Serum or plasma cholesterol measurement (mass/volume)Ordered By: Jairo Grande on 05-10-2025 Cholesterol [Mass/Vol] 179 mg/dL <201 [facility] Comment on above: Cholesterol level, D esirable <200 mg/dLBorderline high cholesterol 200-239 mg/dLHigh cholesterol >=240 mg/dLRecommendations of the NCEP Adult Treatment Panel for the following risk-cutoff thresholds for the [place] population. Serum or plasma urea nitroge n measurement (mass/volume)Ordered By: Jairo Grande on 05-10-2025 Urea nitrogen [Mass/Vol] 19 mg/dL 4-19 [facility] Sodium levelOrdered By: Jairo Grande on 05-10-2025 Sodium [Moles/Vol] 142 mmol/L 133-145 [facility] TSH DL <= 0.005 mIU/L QnOrde red By: Jairo Grande on 05-10-2025 TSH Qn 1.760 uIU/mL 0.300-4.20 0 [facility] Thyroid Stim Hormone (TSH)on 05-10-2025 TSH 1.760 uIU/mL Normal 0.300-4.20 0 [facility] Comment on above: Performed By: #### L 501.9520, L100.0100, L500.2500, L500.4100, L500.3400 ####[facility] [address] [place], [address] Total proteinOrdered By: Suman Grande on 05-10-2025 Protein [Mass/Vol] 6.5 g/dL 5.9-8.4 [facility] Triglycerides measurementOrd ered By: Jairo Grande on 05-10-2025 Triglyceride [Mass/Vol] 86 mg/dL <199 [facility] Comment on above: The drugs N-Acetylcy steine and Metamizole may falsely depress this assay. Normal range: <150 mg/dLBorderline High: 150-199 mg/dLHigh: 200-499 mg/dLVery High: >500 mg/dL White blood cell (WBC) count Ordered By: Jairo Grande on 05-10-2025 WBC (Bld) [#/Vol] 7.1 10*3/uL 4.4-11.0 [facility] Orthopedic Visit Reporton Orthopedic Visit Report [facility] [address] [place] [address] 5 [place] [address] OFFICE VISIT Date of Service: 04/20/25 MR#: [id number] Acct: [id number] Name: BRIGETTE HOLGUIN Rep #: [id number] : 1950 Provider: Dr. Deangelo Virgen so, DO Age/Sex: 74/M [place] [facility] Status: Signed Intake Vital Signs 01/05/25 09:23 [...] Carotid artery stenosis HLD (hyperlipidemia) Sinus bradycardia Pwbtt-Ejtgijidj-Czqrt (WPW) syndrome Sick sinus syndrome Old myocardial infarction BPH (benign prostatic hyperplasia) Atherosclerosis of coronary artery of [place] heart without angina pectoris Segmental and somatic [...] to ambulate. Dr. Landeros did prescribe him [place] but he doesn't like to take it unless he is having severe pain. He does use Voltaren gel for the hip. He has done PT and does exercises (more content not included)... Normal [facility] Magnetic resonance imaging r eportOrdered By: Washington Holley on 04-18-2025 Study report [facility] [address] [place] [address] Lower Ext Joint Only (Routine) MR#: [id number] Acct: [id number] Name: BRIGETTE HOLGUIN Rep #: [id number] : 1950 M 74 From: Anna Marie Holley MD PCP: Dr. Paresh Carranza MD Status: REG C LI Study:Lower Ext Joint Only (Routine) Date of Exam: 04/15/25 Exam# [id number] Ordering Dr: Deangelo Rojas DO PROCEDURE: LOWER [...] Rojas DO; Dr. Paresh Carranza MD ~ [employer]: Signed [facility] Lower Ext Joint Only (Routin e)on 04-15-2025 Lower Ext Joint Only (Routine) [facility] [address] [place], [place] [id number] Lower Ext Joint Only (Routine) MR#: [id number] Acct: [id number] Name: BRIGETTE HOLGUIN Rep #: [id number] : 1950 M 74 From: Washington Holley MD PCP: Dr. Paresh Carranza MD Status: REG CLI Study: Lower Ext Joint Only (Routine) Date of Exam: 0 04/15/25 Exam# [id number] Ordering Dr: Deangelo Rojas DO PROCEDURE: LOWER [...] Deangelo Rojas DO; Dr. Paresh Carranza MD [employer]: Signed Normal [facility] Orthopedic Visit Reporton Orthopedic Visit Report [facility] [address] [place] [address] [address] [place] [address] OFFICE VISIT Date of Service: 04/11/25 MR#: [id number] Acct: [id number] Name: BRIGETTE HOLGUIN Rep #: [id number] : 1950 Provider: Dr. Deangelo gifford DO Age/Sex: 74/M [place] [facility] [place] Status: Signed Intake Vital Signs 01/05/25 09:23 [...] Carotid artery stenosis HLD (hyperlipidemia) Sinus bradycardia Osmnm-Ovvshhrpz-Bxjno (WPW) syndrome Sick sinus syndrome Old myocardial infarction BPH (benign prostatic hyperplasia) Atherosclerosis of coronary artery of [place] heart without angina pectoris Segmental and somatic [...] to ambulate. Dr. Landeros did prescribe him [place] but he doesn't like to take it unless he is having severe pain. He does use (more content not included)... Normal [facility] Inital Evaluation (1) - PTon 02-01-2025 Inital Evaluation (1) - PT [facility] [address] [place] [address]. [address] [place] [address] / REHABILITATION SERVICES INITIAL EVALUATION MR#: [id number] Acct: [id number] Name: BRIGETTE HOLGUIN Rep #: [id number] : 1950 74 From: Rosa Maria MCGINNIS Referring Dr.: Dr. Deangelo Rojas DO Status: R EG RCR Insurance: MEDICARE PART A B [facility] Patient's Visit Information Visit Information Visit [...] To improve (more content not included)... Normal [facility] Cardiology Visit Reporton Cardiology Visit Report [facility] [address] [place] [address] OFFICE VISIT Date of Service: 01/05/25 MR#: [id number] Acct: [id number] Name: BRIGETTE HOLGUIN Rep #: [id number] : 1950 Provider: ANABEL palmer Age/Sex: 74/M Location: [facility] Status: Signed HPI HPI History of Present Illness Details: Mr. Holguin is a 74-year-old white male, who presents today for outpatient cardiovascular followup. As you know, he has a history of hypertension, hypercholesterolemia, paroxysmal atrial fibrillation, coronary artery disease status post angioplasty and drug-eluting stenting to the LAD at [facility] on 07/23/13. At that time [...] NIBP Intake Visit Reasons: 2-3 M FU [employer] Hand Required: No Accompanied by: Is patient in [...] you fallen in the past year?: No [facility] Medical History Wears glasses Thyroid disease Blood disorder History of echocardiogram History of stress test Hypertension Cardiology follow-up encounter Knee pain with internal derangement determined by x-ray History of CVA (cerebrovascular accident) (08/2012) Chronic kidney disease (CKD) Essential (primary) hypertension B12 deficiency Complex partial seizure Non-smoker TIA (transient ischemic attack) Urinary retention Segment (more content not included)... Normal [facility] HIP, UNI W/ Pelvis 2-3 Views on 12-31-2024 HIP, UNI W/ Pelvis 2-3 Views [facility] [address] [place] [address] HIP, UNI W/ Pelvis 2-3 Views MR#: [id number] Acct: [id number] Name: BRIGETTE HOLGUIN Rep #: [id number] : 1950 M 74 From: Jairon Salinas MD PCP: Dr. Paresh Carranza MD Status: DEP AMB Study: HIP, UNI W/ Pelvis 2-3 Views Date of Exam: Exam# [id number] Ordering Dr: Deangelo Rojas DO PROCEDURE: HIP, UNI W/ PELVIS 2-3 VIEWS 12/31/2024 REASON FOR EXAM: CHRONIC PAIN, TECHNIQUE: AP pelvis and two views right hip, 3 total images COMPARISON: None available FINDINGS: Yoni-zb-afmfwutm lateral joint space narrowing right hip with some acetabular sclerotic change. No significant osteophyte formation identified. No fracture or dislocation. Symmetric appearing SI joints and pubic symphysis appear within limits. Lower lumbar hardware and degenerative changes. Possible exostosis left ilium. RAD/HIP, UNI W/ Pelvis 2-3 Views IMPRESSION: Fkbm-xg-hijgrdei appearing osteoarthrosis right hip. Reading Location: [facility] CC: Dr. Deangelo Rojas DO; Dr. Paresh Carranza MD [employer]: Signed Normal [facility] Lumbar Spine 2 or 3 Viewson 12-31-2024 Lumbar Spine 2 or 3 Views [facility] [address] [place] [address] Lumbar Spine 2 or 3 Views MR#: [id number] Acct: [id number] Name: BRIGETTE HOLGUIN Rep #: [id number] : 1950 M 74 From: Jairon Salinas MD PCP: Dr. Paresh Carranza MD Status: DEP AMB Study: Lumbar Spine 2 or 3 Views Date of Exam: Exam# [id number] Ordering Dr: Deangelo Rojas DO PROCEDURE: LUMBAR [...] appearing interval change as above. Reading Location: [facility] CC: Dr. Deangelo Rojas DO; Dr. Paresh Carranza MD [employer]: Signed Normal [facility] Orthopedic Visit Reporton Orthopedic Visit Report [facility] [address] [place] [address] [address] [place], [place] [id number] OFFICE VISIT Date of Service: 12/31/24 MR#: [id number] Acct: [id number] Name: BRIGETTE HOLGUIN Rep #: [id number] : 1950 Provider: Dr. Deangelo Virgen so, DO Age/Sex: 74/M [place] [facility] [place] Status: Signed Intake Vital Signs 11/08/24 10:42 [...] Carotid artery stenosis HLD (hyperlipidemia) Sinus bradycardia Mpfbr-Erwcsvzht-Umehz (WPW) syndrome Sick sinus syndrome Old myocardial infarction BPH (benign prostatic hyperplasia) Atherosclerosis of coronary artery of [place] heart without angina pectoris Segmental and somatic [...] but stops (more content not included)... Normal [facility] Cardiovascular stress test r eportOrdered By: Chevy Rooney on 11-16-2024 Study report [facility] [address] [place] [address] MR#: [id number] Acct: [id number] Name: BRIGETTE HOLGUIN Rep #: [id number] : 1950 74 From: Chevy Rooney MD Primary Care: Dr. Paresh Carranza MD Status : REG CLI Referring Dr: Jairo Grande NP SHUTTLE FINAL INSPECTOR-C Sex: M C Stress Test Report Pharmacologic [...] 1226 Date _ Chevy Rooney MD CC: SHUTTLE FINAL INSPECTOR-C Jairo Grande; Dr. Paresh Carranza MD ~ Date Dictated: 11/16/241224 Date Transcribed: 11/16/241224 [employer]: CO Signed [facility] Work Phone: Echo Completeon 11-16-2024 Echo Complete [facility] [address] [facility] [place] [address] Echo Complete 11/16/24 0741 MR#: [id number] Acct: [id number] Name: BRIGETTE HOLGUIN Rep #: [id number] : 1950 74 From: Chevy Rooney MD Attending Dr: ANABEL Murray Status: REG CLI Ordering Dr: Jairo Grande NP, NP-C Date: 11/16/24 Location: [facility] Sex: M C Admitted: Reason For [...] RDCS 11/16/24921 Date Chevy Rooney MD CC: SHUTTLE FINAL INSPECTOR-C Jairo Grande; Dr. Paresh Carranza MD Date Dictated: 11/16/24740 Date Transcribed: 11/16/24921 [employer]: Signed Normal [facility] Echocardiogram study reportO rdered By: Chevy Rooney on 11-16-2024 Study report [facility] [place] [address] Echo Complete 11/16/24 0741 MR#: [id number] Acct: [id number] Name: BRIGETTE HOLGUIN Rep #:[id number] : 1950 74 From: Chevy Dunn Attending Dr: Jairo Grande, SHUTTLE FINAL INSPECTOR-C Sta tus: REG CLI Ordering Dr: Jairo Grande NP SHUTTLE FINAL INSPECTOR-C Date: 11/16/24 Location: [facility] Sex: M C Admitted: Reason For [...] 11/16/24921 Date _ Chevy Rooney MD CC: SHUTTLE FINAL INSPECTOR-C Jairo Grande; Dr. Paresh Carranza MD ~ Date Dictated: 11/16/24740 Date Transcribed: 11/16/24921 [employer]: Signed [facility] Work Phone: Stress Reporton 11-16-2024 Stress Report [facility] [address] [place] [address] MR#: [id number] Acct: [id number] Name: BRIGETTE HOLGUIN Rep #: [id number] : 1950 74 From: Chevy Rooney MD Primary Care: Dr. 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 Sex: M C Stress Test Report Pharmacologic [...] MD Date Dictated: 11/16/241224 Date Transcribed: 11/16/241224 [employer]: CO Signed Normal [facility] Absolute lymphocyte countOrd ered By: Jairo Grande on 11-08-2024 Lymphocytes Auto (Unsp spec) [#/Vol] 1.69 10*3/uL 0.83-4.51 [facility] Absolute neutrophil countOrd ered By: Jairo Grande on 11-08-2024 Neutrophils (Bld) [#/Vol] 4.3 10*3/uL 2.0-7.7 [facility] Anion gap in Serum or Plasma Ordered By: Jairo Grande on 11-08-2024 Anion gap [Moles/Vol] 12 mmol/L - [facility] Automated lymphocyte count a s percentage of total leukocytesOrdered By: Jairo Grande on 11-08-2024 Lymphocytes/100 WBC Auto (Unsp spec) 25.1 % 19- [facility] BUN/creatinine ratioOrdered By: Jairo Grande on 11-08-2024 Urea nitrogen/Creatinine [Mass ratio] 16.9 mg/mg 10-20 [facility] Basophil percentageOrdered B y: Jairo Grande on 11-08-2024 Basophils/100 WBC (Bld) 0.6 % 0-1 [facility] Bilirubin, totalOrdered By: Jairo Grande on 11-08-2024 Bilirubin [Mass/Vol] 0.62 mg/dL 0.00-1.30 [facility] CBC W/Diff, Automatedon Absolute Lymph 1.69 X10 3/uL Normal 0.83-4.51 [facility] Comment on above: Performed By: #### L 503.7505, L500.4050, L100.0100, L501.9520, L506.0400 #### [facility] [address] [place], [address] Absolute Neut 4.3 X10 3/uL Normal 2.0-7.7 [facility] Comment on above: Performed By: #### L 503.7505, L500.4050, L100.0100, L501.9520, L506.0400 #### [facility] [address] [place], [address] Basophils/100 WBC (Bld) 0.6 % Normal 0-1 [facility] Comment on above: Performed By: #### L 503.7505, L500.4050, L100.0100, L501.9520, L506.0400 #### [facility] [address] [place], [address] Eosinophils/100 WBC (Bld) 0.3 % Normal 0-5 [facility] Comment on above: Performed By: #### L 503.7505, L500.4050, L100.0100, L501.9520, L506.0400 #### [facility] [address] [place], [address] Erythrocyte distribution width (RBC) [Ratio] 14.0 % Normal 11.6-14.6 [facility] Comment on above: Performed By: #### L 503.7505, L500.4050, L100.0100, L501.9520, L506.0400 #### [facility] [address] [place], [address] Hematocrit (Bld) [Volume fraction] 39.5 % Low 40-54 [facility] Comment on above: Performed By: #### L 503.7505, L500.4050, L100.0100, L501.9520, L506.0400 #### [facility] [address] [place], [address] Hemoglobin (Bld) [Mass/Vol] 13.3 g/dL Normal 13.0-16.5 [facility] Comment on above: Performed By: #### L 503.7505, L500.4050, L100.0100, L501.9520, L506.0400 #### [facility] [address] [place], [address] IG% 0.300 Normal 0.0-0.9 [facility] Comment on above: Result Comment: IG% - Immature Granulocytes (promyelocytes, myelocytes and metamyelocytes) > 1% indicates that a LEFT SHIFT is Present. Performed By: #### L 503.7505, L500.4050, L100.0100, L501.9520, L506.0400 #### [facility] [address] [place], [address] Lymphocytes/100 WBC (Bld) 25.1 % Normal 19-41 [facility] Comment on above: Performed By: #### L 503.7505, L500.4050, L100.0100, L501.9520, L506.0400 #### [facility] [address] [place], [address] MCH (RBC) [Entitic mass] 31.1 pg Normal 27.0-32.0 [facility] Comment on above: Performed By: #### L 503.7505, L500.4050, L100.0100, L501.9520, L506.0400 #### [facility] [address] [place], [address] MCHC (RBC) [Mass/Vol] 33.7 g/dL Normal 32-36 [facility] Comment on above: Performed By: #### L 503.7505, L500.4050, L100.0100, L501.9520, L506.0400 #### [facility] [address] [place], [address] MCV (RBC) [Entitic vol] 92.5 fL Normal 80-94 [facility] Comment on above: Performed By: #### L 503.7505, L500.4050, L100.0100, L501.9520, L506.0400 #### [facility] [address] [place], [address] Monocytes/100 WBC (Bld) 9.6 % Normal 0-10 [facility] Comment on above: Performed By: #### L 503.7505, L500.4050, L100.0100, L501.9520, L506.0400 #### [facility] [address] [place], [address] Neutrophils/100 WBC (Bld) 64.1 % Normal 47-70 [facility] Comment on above: Performed By: #### L 503.7505, L500.4050, L100.0100, L501.9520, L506.0400 #### [facility] [address] [place], [address] Nucleated RBC (Bld) [#/Vol] 0 10*3/uL Normal 0-5 [facility] Comment on above: Performed By: #### L 503.7505, L500.4050, L100.0100, L501.9520, L506.0400 #### [facility] [address] [place], [address] Platelet mean volume (Bld) [Entitic vol] 9.8 fL Normal 6.2-12.0 [facility] Comment on above: Performed By: #### L 503.7505, L500.4050, L100.0100, L501.9520, L506.0400 #### [facility] [address] [place], [address] Platelets (Bld) [#/Vol] 229 10*3/uL Normal 150-450 [facility] Comment on above: Performed By: #### L 503.7505, L500.4050, L100.0100, L501.9520, L506.0400 #### [facility] [address] [place], [address] RBC (Bld) [#/Vol] 4.27 10*6/uL Low 4.6-6.[address] [facility] Comment on above: Performed By: #### L 503.7505, L500.4050, L100.0100, L501.9520, L506.0400 #### [facility] [address] [place], [address] RDW SD 47.5 fl High 35.1-43.9 [facility] Comment on above: Performed By: #### L 503.7505, L500.4050, L100.0100, L501.9520, L506.0400 #### [facility] [address] [place], [address] WBC (Bld) [#/Vol] 6.7 10*3/uL Normal 4.4-11.0 [facility] Comment on above: Performed By: #### L 503.1255, L500.4050, L100.0100, L501.9520, L506.0400 #### [facility] [address] [place], [address] Carbon dioxide, total [Moles /volume] in Central venous bloodOrdered By: Jairo Grande on 11-08-2024 CO2 [Moles/Vol] 23.9 mmol/L 21.0-32.0 [facility] Cardiology Visit Reporton Cardiology Visit Report [facility] [address] [place] [address] OFFICE VISIT Date of Service: 11/08/24 MR#: [id number] Acct: [id number] Name: BRIGETTE HOLGUIN Rep #: [id number] : 1950 Provider: ANABEL palmer Age/Sex: 74/M Location: [facility] Status: Signed HPI HPI History of Present Illness Details: Mr. Holguin is a 73-year-old white male, who presents today for outpatient cardiovascular followup. As you know, he has a history of hypertension, hypercholesterolemia, paroxysmal atrial fibrillation, coronary artery disease status post angioplasty and drug-eluting stenting to the LAD at [facility] on 07/23/13. At that time [...] Reasons: 6 M FU/ See Jazlyn @ [employer] Hand Required: No Is patient in pain?: No [...] dosages of vit k2 and vit d3 [facility] Medical History Wears glasses Thyroid disease Blood disorder History of echocardiogram History of stress test Hypertension Cardiology follow-up encounter Knee pain with internal derangement determined by x-ray History of CVA (cerebrovascular accident) (08/2012) Chronic kidney disease (CKD) Essential (primary) hypertension B12 deficiency Complex partial seizure Non-s (more content not included)... Normal [facility] Chloride assayOrdered By: Charlotte Grande on 11-08-2024 Chloride [Moles/Vol] 107 mmol/L 98-108 [facility] Comprehensive Metabolic Prof ilon 11-08-2024 Albumin [Mass/Vol] 4.2 g/dL Normal 3.4-4.8 [facility] Comment on above: Performed By: #### L 503.7505, L500.4050, L100.0100, L501.9520, L506.0400 #### [facility] [address] [place], [address] Albumin/Globulin [Mass ratio] 1.7 {ratio} Normal 0.9-2.4 [facility] Comment on above: Performed By: #### L 503.7505, L500.4050, L100.0100, L501.9520, L506.0400 #### [facility] [address] [place], [address] ALK PHOS 78 U/L Normal 40-129 [facility] Comment on above: Performed By: #### L 503.7505, L500.4050, L100.0100, L501.9520, L506.0400 #### [facility] [address] [place], [address] ALT [Catalytic activity/Vol] 16 U/L Normal <=46 [facility] Comment on above: Performed By: #### L 503.7505, L500.4050, L100.0100, L501.9520, L506.0400 #### [facility] [address] [place], [address] AST [Catalytic activity/Vol] 21 U/L Normal <=37 [facility] Comment on above: Performed By: #### L 503.7505, L500.4050, L100.0100, L501.9520, L506.0400 #### [facility] [address] [place], [address] Bilirubin [Mass/Vol] 0.62 mg/dL Normal 0.00-1.30 [facility] Comment on above: Performed By: #### L 503.7505, L500.4050, L100.0100, L501.9520, L506.0400 #### [facility] [address] [place], [address] BUN/CRE 16.9 RATIO Normal 10-20 [facility] Comment on above: Performed By: #### L 503.7505, L500.4050, L100.0100, L501.9520, L506.0400 #### [facility] [address] [place], [address] Calcium [Mass/Vol] 9.9 mg/dL Normal 7.6-11.0 [facility] Comment on above: Performed By: #### L 503.7505, L500.4050, L100.0100, L501.9520, L506.0400 #### [facility] [address] [place], [address] Chloride [Moles/Vol] 107 mmol/L Normal 98-108 [facility] Comment on above: Performed By: #### L 503.7505, L500.4050, L100.0100, L501.9520, L506.0400 #### [facility] [address] [place], [address] CO2 [Moles/Vol] 23.9 mmol/L Normal 21.0-32.0 [facility] Comment on above: Performed By: #### L 503.7505, L500.4050, L100.0100, L501.9520, L506.0400 #### [facility] [address] [place], [address] Creatinine [Mass/Vol] 1.42 mg/dL High 0.70-1.20 [facility] Comment on above: Performed By: #### L 503.7505, L500.4050, L100.0100, L501.9520, L506.0400 #### [facility] [address] [place], [address] GAP 12 Normal 5-15 [facility] Comment on above: Performed By: #### L 503.7505, L500.4050, L100.0100, L501.9520, L506.0400 #### [facility] [address] [place], [address] GFR/1.73 sq M.predicted among non-blacks MDRD (S/P/Bld) [Vol rate/Area] 52 mL/min/{1.73_m2} Low >60 [facility] Comment on above: Result Comment: mL/m in/1.73m2 CKD-EPI Creatinine Equation (2020) Performed By: #### L 503.7505, L500.4050, L100.0100, L501.9520, L506.0400 #### [facility] [address] [place], [address] Globulin (S) [Mass/Vol] 2.4 g/dL Normal 2.2-4.2 [facility] Comment on above: Performed By: #### L 503.7505, L500.4050, L100.0100, L501.9520, L506.0400 #### [facility] [address] [place], [address] Glucose [Mass/Vol] 95 mg/dL Normal 70-99 [facility] Comment on above: Performed By: #### L 503.7505, L500.4050, L100.0100, L501.9520, L506.0400 #### [facility] [address] [place], [address] Potassium [Moles/Vol] 4.4 mmol/L Normal 3.3-5.1 [facility] Comment on above: Performed By: #### L 503.7505, L500.4050, L100.0100, L501.9520, L506.0400 #### [facility] [address] [place], [address] Sodium [Moles/Vol] 143 mmol/L Normal 133-145 [facility] Comment on above: Performed By: #### L 503.7505, L500.4050, L100.0100, L501.9520, L506.0400 #### [facility] [address] [place], [address] T PROT 6.6 g/dL Normal 5.9-8.4 [facility] Comment on above: Performed By: #### L 503.7505, L500.4050, L100.0100, L501.9520, L506.0400 #### [facility] [address] [place], [address] Urea nitrogen [Mass/Vol] 24 mg/dL High 4-19 [facility] Comment on above: Performed By: #### L 503.7505, L500.4050, L100.0100, L501.9520, L506.0400 #### [facility] [address] [place], [address] Eosinophil percentageOrdered By: Jairo Grande on 11-08-2024 Eosinophils/100 WBC (Bld) 0.3 % 0-5 [facility] Erythrocyte distribution wid th (RBC) [Ratio]Ordered By: Jairo Grande on 11-08-2024 Erythrocyte distribution width (RBC) [Entitic vol] 47.5 fL High 35.1-43.9 [facility] Erythrocyte distribution wid th ratioOrdered By: Jairo Grande on 11-08-2024 Erythrocyte distribution width (RBC) [Ratio] 14.0 % 11.6-14.6 [facility] Erythrocyte distribution wid th standard deviationOrdered By: Jairo Grande on 11-08-2024 Erythrocyte distribution width (RBC) [Ratio] 47.5 fl High 35.1-43.9 [facility] GFR/1.73 sq M.predicted brigitte g non-blacks MDRD (S/P/Bld) [Vol rate/Area]Ordered By: Jairo Grande on 11-08-2024 Estimated GFR (MDRD) Non-Af Amer 52 Low >60 [facility] Comment on above: mL/min/1.73m2 CKD-EP I Creatinine Equation (2020) Glomerular filtration rate ( GFR) estimation/1.73 sq m using serum, plasma, or whole bOrdered By: Jairo Grande on 11-08-2024 GFR/1.73 sq M.predicted among non-blacks MDRD (S/P/Bld) [Vol rate/Area] 52 mL/min/{1.73_m2} Low >60 [facility] Comment on above: mL/min/1.73m2 CKD-EP I Creatinine Equation (2020) Hematocrit Auto (Bld) [Volum e fraction]Ordered By: Jairo Grande on 11-08-2024 Hematocrit (Bld) [Volume fraction] 39.5 % Low 40-54 [facility] Hemoglobin measurementOrdere d By: Jairo Grande on 11-08-2024 Hemoglobin (Bld) [Mass/Vol] 13.3 g/dL 13.0-16.5 [facility] Immature granulocytes/100 WB C Auto (Bld)Ordered By: Jairo Grande on 11-08-2024 Immature granulocytes/100 WBC (Bld) 0.300 % 0.0-0.9 [facility] Comment on above: IG% - Immature Granu locytes (promyelocytes, myelocytes and metamyelocytes) > 1% indicates that a LEFT SHIFT is Present. L503.7505on 11-08-2024 Natriuretic peptide B (Bld) [Mass/Vol] 487 pg/mL Normal <=900 [facility] Comment on above: Result Comment: Hear t Failure Unlikely: < 300 pg/mL Heart Failure Likely < 50 Years: > 450 pg/mL 50-75 Years: > 900 pg/mL >75 Years: > 1800 pg/mL Performed By: #### L 503.7505, L500.4050, L100.0100, L501.9520, L506.0400 ####[facility] [address] [place], [place], [id number] Laboratory - Chemistry and C hemistry - challengeOrdered By: Jairo Grande on 11-08-2024 AST [Catalytic activity/Vol] 21 U/L <38 [facility] Lymphocytes Auto (Unsp spec) [#/Vol]Ordered By: Jairo Grande on 11-08-2024 Lymphocytes (Bld) [#/Vol] 1.69 10*3/uL 0.83-4.51 [facility] Lymphocytes/100 WBC Auto (Un sp spec)Ordered By: Jairo Grande on 11-08-2024 Lymphocytes/100 WBC (Bld) 25.1 % 19-41 [facility] MCV (mean corpuscular volume ) determinationOrdered By: Jairo Grande on 11-08-2024 MCV (RBC) [Entitic vol] 92.5 fL 80-94 [facility] Mean corpuscular hemoglobin (MCH) determinationOrdered By: Jairo Grande on 11-08-2024 MCH (RBC) [Entitic mass] 31.1 pg 27.0-32.0 [facility] Mean corpuscular hemoglobin concentration (MCHC) determinationOrdered By: Jairo Grande on 11-08-2024 MCHC (RBC) [Mass/Vol] 33.7 g/dL 32-36 [facility] Mean platelet volume determi nationOrdered By: Jairo Grande on 11-08-2024 Platelet mean volume (Bld) [Entitic vol] 9.8 fL 6.2-12.0 [facility] Monocyte percentageOrdered B y: Jairo Grande on 11-08-2024 Monocytes/100 WBC (Bld) 9.6 % 0-10 [facility] Natriuretic peptide.B prohor man N-Terminal [Mass/Vol]Ordered By: Jairo Grande on 11-08-2024 Natriuretic peptide B (Bld) [Mass/Vol] 487 pg/mL <900 [facility] Comment on above: Heart Failure Unlike ly: < 300 pg/mLHeart Failure Likely< 50 Years: > 450 pg/mL50-75 Years: > 900 pg/mL>75 Years: > 1800 pg/mL Natriuretic peptide.B prohor man N-Terminal [Mass/volume] in Serum or PlasmaOrdered By: Jairo Grande on 11-08-2024 Natriuretic peptide.B prohormone N-Terminal [Mass/Vol] 487 pg/mL <900 [facility] Comment on above: Heart Failure Unlike ly: < 300 pg/mLHeart Failure Likely< 50 Years: > 450 pg/mL50-75 Years: > 900 pg/mL>75 Years: > 1800 pg/mL Neutrophil percentageOrdered By: Jairo Grande on 11-08-2024 Neutrophils/100 WBC (Bld) 64.1 % 47-70 [facility] Nucleated red blood cell per centageOrdered By: Jairo Grande on 11-08-2024 Nucleated RBC/100 WBC (Bld) [Ratio] 0 % 0-5 [facility] Pacemaker Checkon 11-08-2024 Pacemaker Check [facility] [address] [place] [address] Pacemaker Check Date of Service: 11/08/24 1538 MR#: [id number] Acct: [id number] Name: BRIGETTE HOLGUIN Rep #: [id number] : 1950 From: Argenis Mcgee Age/Sex: 74/M Location: [facility] Status: Signed Billing Codes PM Device Codes: 76066 PM Dev Prog Eval, Dual Assessment and Plan Assessment and Plan (1) Sick sinus syndrome: Status: Chronic (2) Tyuvh-Cckshdziz-Carbf (WPW) syndrome: Status: Chronic (3) Sinus bradycardia: Status: Chronic (4) History of permanent cardiac pacemaker placement: Status: Acute Comment: 06/2023 Plan Details Goals Barriers: Goals Decrease pain Decrease inflammation Improve ROM Barriers cervical disc herniation previous lumbar surgery 11/08/24 1539 Date Argenis Davidsonignlonny Signature: Date (if applicable) CC: Normal [facility] Platelet countOrdered By: Charlotte Grande on 11-08-2024 Platelets (Bld) [#/Vol] 229 10*3/uL 150-450 [facility] Potassium (Unsp spec) [Mass/ Vol]Ordered By: Jairo Grande on 11-08-2024 Potassium [Moles/Vol] 4.4 mmol/L 3.3-5.1 [facility] Potassium measurement (mass/ volume)Ordered By: Jairo Grande on 11-08-2024 Potassium (Unsp spec) [Mass/Vol] 4.4 mmol/L 3.3-5.1 [facility] RBC Auto (Bld) [#/Vol]Ordere d By: Jairo Grande on 11-08-2024 RBC (Bld) [#/Vol] 4.27 10*6/uL Low 4.6-6.[address] [facility] Serum creatinine measurement (mass/volume)Ordered By: Jairo Grande on 11-08-2024 Creatinine [Mass/Vol] 1.42 mg/dL High 0.70-1.20 [facility] Serum globulin measurementOr dered By: Jairo Grande on 11-08-2024 Globulin (S) [Mass/Vol] 2.4 g/dL 2.2-4.2 [facility] Serum glucose measurement (m ass/volume)Ordered By: Jairo Grande on 11-08-2024 Glucose [Mass/Vol] 95 mg/dL 70-99 [facility] Serum or plasma alanine chavez otransferase (ALT) measurementOrdered By: Jairo Grande on 11-08-2024 ALT [Catalytic activity/Vol] 16 U/L <47 [facility] Serum or plasma albumin gm urement (mass/volume)Ordered By: Jairo Grande on 11-08-2024 Albumin [Mass/Vol] 4.2 g/dL 3.4-4.8 [facility] Serum or plasma albumin/glob ulin mass ratioOrdered By: Jairo Grande on 11-08-2024 Albumin/Globulin [Mass ratio] 1.7 {ratio} 0.9-2.4 [facility] Serum or plasma alkaline lynn sphatase measurementOrdered By: Jairo Grande on 11-08-2024 ALP [Catalytic activity/Vol] 78 U/L 40-129 [facility] Serum or plasma calcium gm urement (mass/volume)Ordered By: Jairo Grande on 11-08-2024 Calcium [Mass/Vol] 9.9 mg/dL 7.6-11.0 [facility] Serum or plasma urea nitroge n measurement (mass/volume)Ordered By: Jairo Grande on 11-08-2024 Urea nitrogen [Mass/Vol] 24 mg/dL High 4-19 [facility] Sodium levelOrdered By: Jairo Grande on 11-08-2024 Sodium [Moles/Vol] 143 mmol/L 133-145 [facility] T4 Free Directon 04-07-2025 T4 FREE DIRECT 1.50 ng/dL High 0.76-1.46 [facility] Comment on above: Performed By: #### L 503.7505, L500.4050, L100.0100, L501.9520, L506.0400 ####[facility] [address] [place], [address] T4 freeOrdered By: Jairo Grande on 11-08-2024 Free T4 [Mass/Vol] 1.50 ng/dL High 0.76-1.46 [facility] TSH DL <= 0.005 mIU/L QnOrde red By: Jairo Grande on 11-08-2024 Thyroid Stimulating Hormone (TSH) 2.540 uIU/mL 0.300-4.20 0 [facility] TSH Qn 2.540 uIU/mL 0.300-4.20 0 [facility] Thyroid Stim Hormone (TSH)on 11-08-2024 TSH 2.540 uIU/mL Normal 0.300-4.20 0 [facility] Comment on above: Performed By: #### L 503.7505, L500.4050, L100.0100, L501.9520, L506.0400 ####[facility] [address] [place], [address] Total proteinOrdered By: Suman Grande on 11-08-2024 Protein [Mass/Vol] 6.6 g/dL 5.9-8.4 [facility] White blood cell (WBC) count Ordered By: Jairo Grande on 11-08-2024 WBC (Bld) [#/Vol] 6.7 10*3/uL 4.4-11.0 [facility] Bone density reportOrdered B y: José Mcfadden on 10-21-2024 Study report Skeletal system DXA [facility] [address] [place], [place] [id number] Dexa Bone Density Study MR#: [id number] Acct: [id number] Name: BRIGETTE HOLGUIN Rep #: [id number] : 1950 M 74 From: Cheo Mcfadden MD PCP: Dr. Paresh Carranza MD Status: MISAEL STEPHENSON Study:Dexa Bone Density Study Date of Exam: 10/21/24 Exam# [id number] Ordering Dr: Paresh Carranza MD PROCEDURE: DEXA [...] osteopenic as outlined below according to World Ebrt Organization (WHO) criteria with a moderate fracture risk. Reading Location: [facility]--1 CC: Dr. Paresh Carranza MD ~ [employer]: Signed [facility] Dexa Bone Density Studyon Dexa Bone Density Study [facility] Services [address] [place] [address] Dexa Bone Density Study MR#: [id number] Acct: [id number] Name: BRIGETTE HOLGUIN Rep #: [id number] : 1950 M 74 From: José benites MD PCP: Dr. Paresh Carranza MD Status: [facility] CLI Study: Dexa Bone Density Study Date of Exam: 10/21/24 Exam# [id number] Ordering Dr: Paresh Carranza MD PROCEDURE: DEXA [...] with a moderate fracture risk. Reading Location: [place] [address] CC: Dr. Paresh Carranza MD [employer]: Signed [facility] XR CHEST PA+LAT 2 VIEWSon XR [...] artery endovascular stent. MACRO: None Normal [facility] XR Chest PA and Lateralon EXAMINATION: [...] 3. Coronary artery endovascular stent. MACRO: None [facility] Study observation (narrative) [facility] XR Chest PA and LateralOrder ed By: Rashad Alvarez on 11-25-2023 [facility] Work Phone: Basophil percentageOrdered B y: Paresh Carranza on 11-20-2023 Bilirubin [Mass/Vol] 0.90 mg/dL 0.20-1.00 [facility] Comment on above: For patients on eltr ombopag therapy, use of Dimension [place] TBIL is not recommended. Chloride [Moles/Vol] 110 mmol/L 98-107 [facility] Cholesterol [Mass/Vol] 180 mg/dL <200 [facility] Comment on above: <200 mg/dL Desirable 200-240 mg/dL Borderline >240 mg/dL High Risk Glucose [Mass/Vol] 95 mg/dL 74-106 [facility] Potassium [Moles/Vol] 4.4 mmol/L 3.5-5.1 [facility] Protein [Mass/Vol] 6.5 g/dL 6.4-8.2 [facility] Sodium [Moles/Vol] 140 mmol/L 136-145 [facility] Triglyceride [Mass/Vol] 84 mg/dL <199 [facility] Comment on above: The drugs N-Acetylcy steine and Metamizole may falsely depress this assay.Serum Triglycerides Reference Interval Normal <150 mg/dL Borderline high 150 - 199 mg/dL High 200 - 499 mg/dL Very High > or = 500 mg/dL Laboratory - Chemistry and C hemistry - challengeOrdered By: Paresh Carranza on 11-20-2023 Albumin/Globulin [Mass ratio] 1.3 {ratio} 0.9-2.4 [facility] ALP [Catalytic activity/Vol] 84 U/L 45-117 [facility] ALT [Catalytic activity/Vol] 17 U/L 16-61 [facility] Cholesterol in HDL [Mass/Vol] 53 mg/dL >40 [facility] Comment on above: The drugs N-Acetylcy steine and Metamizole may falsely depress this assay. Reference Range HDL <40 mg/dL Low HDL Cholesterol HDL >or= 60 mg/dL High HDL Cholesterol Cholesterol in LDL [Mass/Vol] 110 mg/dL 0-130 [facility] CO2 [Moles/Vol] 27.0 mmol/L 21.0-32.0 [facility] Globulin (S) [Mass/Vol] 2.8 g/dL 2.2-4.2 [facility] Urea nitrogen/Creatinine [Mass ratio] 21.9 mg/mg 10-20 [facility] No Panel InformationOrdered By: Paresh Carranza on 11-20-2023 Estimated GFR (MDRD) Amer 71 mL/min >60 [facility] Comment on above: GFR Calc Estimated GFR (MDRD) Non-Af Amer 59 mL/min >60 [facility] Comment on above: Non- GFR Calc Free Triiodothyronine (T3) pg/dL 2.5 pg/mL 2.18-3.98 [facility] VLDL Cholesterol 17 mg/dL 5-40 [facility] Serum or plasma calcium gm urement (mass/volume)Ordered By: Paresh Carranza on 11-20-2023 Calcium [Mass/Vol] 9.1 mg/dL 8.5-10.1 [facility] Serum or plasma creatinine m easurement (mass/volume)Ordered By: Paresh Carranza on 11-20-2023 Creatinine [Mass/Vol] 1.28 mg/dL 0.70-1.30 [facility] Comment on above: The validity of the calculated GFR & GFRAA in patients over 70 years has not been determined. Clinical correlation is essential. Serum or plasma thyroid stim ulating hormone (TSH) measurement (units/volume)Ordered By: Paresh Carranza on 11-20-2023 TSH Qn 4.42 uIU/mL 0.358-3.74 [facility] Serum or plasma urea nitroge n measurement (mass/volume)Ordered By: Paresh Carranza on 11-20-2023 Urea nitrogen [Mass/Vol] 28 mg/dL 7-18 [facility] Thin prep Papanicolaou smear with manual screeningOrdered By: Paresh Carranza on 11-20-2023 Thin prep Papanicolaou smear with manual screening 3.7 g/dL 3.2-5.0 [facility] Thin prep Papanicolaou smear with manual screening 18 U/L 15-37 [facility] Thin prep Papanicolaou smear with manual screening 3 5-15 [facility] Thin prep Papanicolaou smear with manual screening 1.07 ng/dL 0.76-1.46 [facility] Absolute lymphocyte countOrd ered By: Kerry Hilliard on 09-15-2023 Lymphocytes Auto (Unsp spec) [#/Vol] 1.48 10*3/uL 0.83-4.51 [facility] Automated lymphocyte count a s percentage of total leukocytesOrdered By: Kerry Hilliard on 09-15-2023 Lymphocytes/100 WBC Auto (Unsp spec) 25.4 % 19-41 [facility] Basophil percentageOrdered B y: Kerry Hilliard on 09-15-2023 Basophils/100 WBC (Bld) 0.9 % 0-1 [facility] Bilirubin [Mass/Vol] 0.60 mg/dL 0.20-1.00 [facility] Comment on above: For patients on eltr ombopag therapy, use of Dimension [place] TBIL is not recommended. Chloride [Moles/Vol] 112 mmol/L 98-107 [facility] Eosinophils/100 WBC (Bld) 1.0 % 0-5 [facility] Glucose [Mass/Vol] 91 mg/dL 74-106 [facility] Hemoglobin (Bld) [Mass/Vol] 13.5 g/dL 13.0-16.5 [facility] Monocytes/100 WBC (Bld) 11.9 % 0-10 [facility] Neutrophils (Bld) [#/Vol] 3.5 10*3/uL 2.0-7.7 [facility] Neutrophils/100 WBC (Bld) 60.6 % 47-70 [facility] Potassium [Moles/Vol] 4.3 mmol/L 3.5-5.1 [facility] Protein [Mass/Vol] 6.6 g/dL 6.4-8.2 [facility] Sodium [Moles/Vol] 144 mmol/L 136-145 [facility] WBC (Bld) [#/Vol] 5.8 10*3/uL 4.4-11.0 [facility] Determination of erythrocyte mean corpuscular volume (MCV)Ordered By: Kerry Hilliard on 09-15-2023 MCV (RBC) [Entitic vol] 91.6 fL 80-94 [facility] Erythrocyte distribution wid th ratioOrdered By: Kerry Hilliard on 09-15-2023 Erythrocyte distribution width (RBC) [Ratio] 13.5 % 11.6-14.6 [facility] Erythrocyte distribution wid th standard deviationOrdered By: Kerry Hilliard on 09-15-2023 Erythrocyte distribution width (RBC) [Entitic vol] 45.5 fL 35.1-43.9 [facility] Hematocrit Auto (Bld) [Volum e fraction]Ordered By: Kerry Hilliard on 09-15-2023 Hematocrit (Bld) [Volume fraction] 41.5 % 40-54 [facility] Immature granulocytes/100 WB C Auto (Bld)Ordered By: Kerry Hilliard on 09-15-2023 Immature granulocytes/100 WBC (Bld) 0.200 % 0.0-0.9 [facility] Comment on above: IG% - Immature Granu locytes (promyelocytes, myelocytes and metamyelocytes) > 1% indicates that a LEFT SHIFT is Present. Laboratory - Chemistry and C hemistry - challengeOrdered By: Kerry Hilliard on 09-15-2023 Albumin/Globulin [Mass ratio] 1.3 {ratio} 0.9-2.4 [facility] ALP [Catalytic activity/Vol] 84 U/L 45-117 [facility] ALT [Catalytic activity/Vol] 23 U/L 16-61 [facility] CO2 [Moles/Vol] 28.0 mmol/L 21.0-32.0 [facility] Globulin (S) [Mass/Vol] 2.9 g/dL 2.2-4.2 [facility] Natriuretic peptide B (Bld) [Mass/Vol] 27.3 pg/mL 0-100 [facility] Urea nitrogen/Creatinine [Mass ratio] 26.7 mg/mg 10-20 [facility] Laboratory - Hematology and Cell countsOrdered By: Kerry Hilliard on 09-15-2023 MCH (RBC) [Entitic mass] 29.8 pg 27.0-32.0 [facility] MCHC (RBC) [Mass/Vol] 32.5 g/dL 32-36 [facility] Nucleated RBC/100 WBC (Bld) [Ratio] 0 % 0-5 [facility] Platelet mean volume (Bld) [Entitic vol] 9.8 fL 6.2-12.0 [facility] Platelets (Bld) [#/Vol] 245 10*3/uL 150-450 [facility] No Panel InformationOrdered By: Kerry Hilliard on 09-15-2023 Estimated GFR (MDRD) Amer 69 mL/min >60 [facility] Comment on above: GFR Calc Estimated GFR (MDRD) Non-Af Amer 57 mL/min >60 [facility] Comment on above: Non- GFR Calc RBC Auto (Bld) [#/Vol]Ordere d By: Kerry Hilliard on 09-15-2023 RBC (Bld) [#/Vol] 4.53 10*6/uL 4.6-6.[address] [facility] Serum or plasma calcium gm urement (mass/volume)Ordered By: Kerry Hilliard on 09-15-2023 Calcium [Mass/Vol] 9.1 mg/dL 8.5-10.1 [facility] Serum or plasma creatinine m easurement (mass/volume)Ordered By: Kerry Hilliard on 09-15-2023 Creatinine [Mass/Vol] 1.31 mg/dL 0.70-1.30 [facility] Comment on above: The validity of the calculated GFR & GFRAA in patients over 70 years has not been determined. Clinical correlation is essential. Serum or plasma urea nitroge n measurement (mass/volume)Ordered By: Kerry Hilliard on 09-15-2023 Urea nitrogen [Mass/Vol] 35 mg/dL 7-18 [facility] Thin prep Papanicolaou smear with manual screeningOrdered By: Kerry Hilliard on 09-15-2023 Thin prep Papanicolaou smear with manual screening 3.7 g/dL 3.2-5.0 [facility] Thin prep Papanicolaou smear with manual screening 15 U/L 15-37 [facility] Thin prep Papanicolaou smear with manual screening 4 5-15 [facility] ANES POSTPROC EVALon 023 ANES POSTPROC EVAL HNO ID: [id number] Author: Alan Patel MD Service: Anesthesiology Author Type: Anesthesiologist Type: Anesthesia Postprocedure Evaluation Filed: 06/20/2023 10:18 AM Note Text: POST ANESTHESIA EVALUATION NOTE : 1950 Procedure Summary Date: 06/19/23 Room / Location: [place] [address] / [place] [facility] Anesthesia Start: 0836 Anesthesia Stop: [...] June 20, 2023 TIME: 10:16 AM CSN: [id number] Normal [facility] Basic metabolic 2000 panelon 06-20-2023 Anion gap [Moles/Vol] 8 mmol/L Low 9-18 [facility] Comment on above: Order Comment: Spectoshia lowe Type: BLOOD SPECIMEN Ordering Facility: [facility] Address: [address] [place] [address] Performed By: #### 2 4321-2 #### [facility] CLIA [id number] [address] [place] [address] [place] Calcium [Mass/Vol] 9.1 mg/dL Normal 8.5-10.2 [facility] Comment on above: Order Comment: Carie lowe Type: BLOOD SPECIMEN Ordering Facility: [facility] Address: [address] [place] [address] Performed By: #### 2 4321-2 #### [facility] CLIA [id number] 1 [place] [address] [place] Chloride [Moles/Vol] 103 mmol/L Normal 97-105 [facility] Comment on above: Order Comment: Speci men Type: BLOOD SPECIMEN Ordering Facility: [facility] Address: [address] [place] [address] Performed By: #### 2 4321-2 #### [facility] CLIA [id number] [address] [place] CO2 [Moles/Vol] 27 mmol/L Normal 22-30 [facility] Comment on above: Order Comment: Speci men Type: BLOOD SPECIMEN Ordering Facility: [facility] Address: [address] [place] [address] Performed By: #### 2 4321-2 #### [facility] CLIA [id number] [address] [place] Creatinine [Mass/Vol] 1.43 mg/dL High 0.73-1.22 [facility] Comment on above: Order Comment: Speci men Type: BLOOD SPECIMEN Ordering Facility: [facility] Address: [address] [place] [address] Performed By: #### 2 4321-2 #### [facility] CLIA [id number] [address] Creatinine and Glomerular filtration rate.predicted panel (S/P/Bld) 52 mL/min/1.73m??? Low >=60 [facility] Comment on above: Order Comment: Speci men Type: BLOOD SPECIMEN Ordering Facility: [facility] Address: [address] [place] [address] Result Comment: Danay mated Glomerular Filtration Rate [...] GFR. Performed By: #### 2 4321-2 #### [facility] CLIA [id number] [address] [place] Glucose [Mass/Vol] 102 mg/dL High 74-99 [facility] Comment on above: Order Comment: Amnai men Type: BLOOD SPECIMEN Ordering Facility: [facility] Address: [address] [place] [address] Result Comment: The [place] Diabetes Association (ADA) provides guidance for cutoff [...] Standards of Medical Care in Diabetes 2016, [place] Diabetes Association. Diabetes Care. 2016.39(Suppl 1). Performed By: #### 2 4321-2 #### [facility] CLIA [id number] [address] [place] [address] [place] Potassium [Moles/Vol] 4.3 mmol/L Normal 3.7-5.1 [facility] Comment on above: Order Comment: Carie men Type: BLOOD SPECIMEN Ordering Facility: [facility] Address: [address] [place] [address] Performed By: #### 2 4321-2 #### [facility] CLIA [id number] [address] [place] Sodium [Moles/Vol] 138 mmol/L Normal 136-144 [facility] Comment on above: Order Comment: Speci men Type: BLOOD SPECIMEN Ordering Facility: [facility] Address: [address] [place] [address] Performed By: #### 2 4321-2 #### [facility] CLIA [id number] [address] [place] [address] [place] Urea nitrogen [Mass/Vol] 23 mg/dL Normal 9-24 [facility] Comment on above: Order Comment: Amnai men Type: BLOOD SPECIMEN Ordering Facility: [facility] Address: [address] [place] [address] Performed By: #### 2 4321-2 #### [facility] CLIA [id number] [address] CBC panel Auto (Bld)on 06-20 Erythrocyte distribution width (RBC) [Ratio] 13.3 % Normal 11.5-15.0 [facility] Comment on above: Order Comment: Speci men Type: BLOOD SPECIMEN Ordering Facility: [facility] Address: [address] [place] [address] Performed By: #### 5 8410-2 #### [facility] CLIA [id number] [address] Hematocrit (Bld) [Volume fraction] 38.7 % Low 39.0-51.0 [facility] Comment on above: Order Comment: Speci men Type: BLOOD SPECIMEN Ordering Facility: [facility] Address: [address] [place] [address] Performed By: #### 5 8410-2 #### [facility] CLIA [id number] [address] Hemoglobin (Bld) [Mass/Vol] 12.8 g/dL Low 13.0-17.0 [facility] Comment on above: Order Comment: Speci men Type: BLOOD SPECIMEN Ordering Facility: [facility] Address: [address] [place] [address] Performed By: #### 5 8410-2 #### [facility] CLIA [id number] [address] MCH (RBC) [Entitic mass] 30.7 pg Normal 26.0-34.0 [facility] Comment on above: Order Comment: Speci men Type: BLOOD SPECIMEN Ordering Facility: [facility] Address: [address] [place] [address] Performed By: #### 5 8410-2 #### [facility] CLIA [id number] [address] [place] MCHC (RBC) [Mass/Vol] 33.1 g/dL Normal 30.5-36.0 [facility] Comment on above: Order Comment: Speci men Type: BLOOD SPECIMEN Ordering Facility: [facility] Address: [address] [place] [address] Performed By: #### 5 8410-2 #### [facility] CLIA [id number] [address] MCV (RBC) [Entitic vol] 92.8 fL Normal 80.0-100.0 [facility] Comment on above: Order Comment: Speci men Type: BLOOD SPECIMEN Ordering Facility: [facility] Address: [address] [place] [address] Performed By: #### 5 8410-2 #### [facility] CLIA [id number] [address] Nucleated RBC (Bld) [#/Vol] 10*3/uL Normal <0.01 [facility] Comment on above: Order Comment: Speci men Type: BLOOD SPECIMEN Ordering Facility: [facility] Address: [address] [place] [address] Performed By: #### 5 8410-2 #### [facility] CLIA [id number] [address] [place] Platelet mean volume (Bld) [Entitic vol] 9.5 fL Normal 9.0-12.7 [facility] Comment on above: Order Comment: Speci men Type: BLOOD SPECIMEN Ordering Facility: [facility] Address: [address] [place] [address] Performed By: #### 5 8410-2 #### [facility] CLIA [id number] [address] [place] Platelets (Bld) [#/Vol] 161 10*3/uL Normal 150-400 [facility] Comment on above: Order Comment: Speci men Type: BLOOD SPECIMEN Ordering Facility: [facility] Address: [address] [place] [address] Performed By: #### 5 8410-2 #### [facility] CLIA [id number] [address] [place] RBC (Bld) [#/Vol] 4.17 10*6/uL Low 4.20-6.00 [facility] Comment on above: Order Comment: Carie lowe Type: BLOOD SPECIMEN Ordering Facility: [facility] Address: [address] [place] [address] Performed By: #### 5 8410-2 #### [facility] CLIA [id number] [address] OF [facility] WBC (Bld) [#/Vol] 14.01 10*3/uL High 3.70-11.00 [facility] Comment on above: Order Comment: Carie lowe Type: BLOOD SPECIMEN Ordering Facility: [facility] Address: [address] [place] [address] Performed By: #### 5 8410-2 #### [facility] CLIA [id number] [address] CNDSon 06-20-2023 [facility] HNO ID: [id number] Author: Jazmine Zepeda APRN.MECHANICAL LABORATORY TECHNICIAN Service: Electrophysiology Author Type: Nurse Practitioner Type: [...] check in 1 week, he follows in [place] with Dr. Rooney, and will need a [...] heavy bl (more content not included)... Normal [facility] No Panel Informationon 06-20 BLANK _ [facility] Implant Date 06/19/2023 [facility] CHECKon AMS Fallback Rate (bpm) 70 {beats}/min [facility] AV Delay Adaptive Paced Minimum (ms) 200 ms [facility] AV Delay Adaptive Rate Maximum (bpm) 130 {beats}/min [facility] AV Delay Adaptive Rate Minimum (bpm) 90 {beats}/min [facility] AV Delay Adaptive Sensed Minimum (ms) 180 ms [facility] AV Delay Adaptive Status DISABLED [facility] Battery Voltage (volts) 3.02 V [facility] Leon RA Pacing Amplitude (volts) 2.0 V [facility] Leon RA Pacing Polarity BI [facility] Leon RA Pacing Pulse Width (ms) 0.5 ms [facility] Leon RA Sensing Blanking Period (ms) 150 ms [facility] Leon RA Sensing Polarity BI [facility] Leon RA Sensing Refractory Period (ms) 190 ms [facility] Leon RV Pacing Amplitude (volts) 3.25 V [facility] Leon RV Pacing Polarity BI [facility] Leon RV Pacing Pulse Width (ms) 0.5 ms [facility] Leon RV Sensing Amplitude (mvolts) 2.0 mV [facility] Leon RV Sensing Blanking Period (ms) 44 ms [facility] Leon RV Sensing Polarity BI [facility] Leon RV Sensing Refractory Period (ms) 250 ms [facility] Hysteresis Rate (bpm) Off [facility] Implant Date 01/04/2013 [facility] Lead1 Mfg SJM [facility] Lead2 Mfg SJM [facility] Location RV [facility] Location RA [facility] Lower Rate (bpm) 60 {beats}/min [facility] Max Sensor Rate (bmp) 130 {beats}/min [facility] Model 2272 Assurity MRI [facility] Model 2088TC/52 [facility] Model 2088TC Tendril STS O ptim IS [facility] Pacing Mode DDDR [facility] PM-Device Mfg STJ [facility] PM-Percent Pacing (A) 6.1 % [facility] PM-Percent Pacing (V) 0.01 % [facility] PM-PMT Intervention Atrial Pace [facility] PM-PVC Intervention Atrial Pace [facility] PM-Rate Modulation Acceleration Reaction Fast [facility] PM-Rate Modulation Deceleration Medium [facility] PM-Rate Modulation Rowan Auto (+0) [facility] PM-Rate Modulation Threshold Auto (+0.0) [facility] Rhythm NSR at 62 BPM. [facility] Serial Number [id number] [facility] Serial Number [id number] [facility] Serial Number [id number] [facility] Thresh RA Capture Amplitude (volts) 0.5 V [facility] Thresh RA Capture Duration (ms) 0.5 ms [facility] Thresh RA Sensing Amplitude (mvolts) 3.4 mV [facility] Thresh RV Capture Amplitude (volts) 0.5 V [facility] Thresh RV Capture Duration (ms) 0.5 ms [facility] Thresh RV Sensing Amplitude (mvolts) 12.0 mV [facility] Tracking Rate (bpm) 130 {beats}/min [facility] XR CHEST 2V FRONTAL/LATon XR CHEST [...] IMPRESSION: Trace bilateral pleural effusions. No pneumothorax. [employer]: PSCB Transcribe Date/Time: Jun 20 2023 10:02A Dictated by : BRITTNEY WALDEN MD This examination was interpreted and the report reviewed and electronically signed by: BRITTNEY WALDEN MD on Jun 20 2023 10:03AM EST [id number] Normal [facility] ALLIED HEALTHon 06-19-2023 ALLIED HEALTH HNO ID: [id number] Author: Lucrecia Viramontes RT(R) Service: Radiology Author [...] (R) June 19, 2023 2:40 PM Normal [facility] ANES PRE-OPon 06-19-2023 ANES PRE-OP HNO ID: [id number] Author: Nic Chu MD Service: Anesthesiology Author Type: Physician Type: Anesthesia Preprocedure Evaluation Filed: 06/19/2023 8:41 AM Note Text: ANESTHESIOLOGY DAY OF SURGERY NOTE : 1950 Procedure Information Anesthesia Start Date/Time: 06/19/23835 Procedure: REMOVAL ELECTRODE(S) IMPLANTABLE DEFIBRILLATOR TRANSVENOUS EXTRACTION (Right) - SJM, right sided, RV extraction/replacement, PPG replacement. [place] covering hANDp on 06/16 by Lonnie BRADLEY PACU/[place] [facility] Surgeons: Viktoriya Marcial MD Estimated [...] and consent discussed: yes. Patient / Responsible Constitution Party agrees to proceed: yes Patient / Surrogate [...] June 19, 2023 TIME: 8:41 AM CSN: [id number] Normal [facility] Basic metabolic 2000 panelon 06-19-2023 Anion gap [Moles/Vol] 9 mmol/L Normal 9-18 [facility] Comment on above: Order Comment: Carie lowe Type: BLOOD SPECIMEN Ordering Facility: [facility] Address: [address] [place] [address] Performed By: #### 2 4321-2 #### [facility] CLIA [id number] [address] [place] [address] [place] Calcium [Mass/Vol] 9.0 mg/dL Normal 8.5-10.2 [facility] Comment on above: Order Comment: Carie lowe Type: BLOOD SPECIMEN Ordering Facility: [facility] Address: [address] [place] [address] Performed By: #### 2 4321-2 #### [facility] CLIA [id number] [address] [place] [address] [place] Chloride [Moles/Vol] 105 mmol/L Normal 97-105 [facility] Comment on above: Order Comment: Speci men Type: BLOOD SPECIMEN Ordering Facility: [facility] Address: [address] [place] [address] Performed By: #### 2 4321-2 #### [facility] CLIA [id number] [address] [place] CO2 [Moles/Vol] 27 mmol/L Normal 22-30 [facility] Comment on above: Order Comment: Speci men Type: BLOOD SPECIMEN Ordering Facility: [facility] Address: [address] [place] [address] Performed By: #### 2 4321-2 #### [facility] CLIA [id number] [address] [place] Creatinine [Mass/Vol] 1.24 mg/dL High 0.73-1.22 [facility] Comment on above: Order Comment: Speci men Type: BLOOD SPECIMEN Ordering Facility: [facility] Address: [address] [place] [address] Performed By: #### 2 4321-2 #### [facility] CLIA [id number] [address] Creatinine and Glomerular filtration rate.predicted panel (S/P/Bld) 62 mL/min/1.73m??? Normal >=60 [facility] Comment on above: Order Comment: Speci men Type: BLOOD SPECIMEN Ordering Facility: [facility] Address: [address] [place] [address] Result Comment: Danay mated Glomerular Filtration Rate [...] Performed By: #### 2 4321-2 #### [facility] CLIA [id number] [address] [place] Glucose [Mass/Vol] 94 mg/dL Normal 74-99 [facility] Comment on above: Order Comment: Carie men Type: BLOOD SPECIMEN Ordering Facility: [facility] Address: [address] [place] [address] Result Comment: The [place] Diabetes Association (ADA) provides guidance for cutoff [...] Standards of Medical Care in Diabetes 2016, [place] Diabetes Association. Diabetes Care. 2016.39(Suppl 1). Performed By: #### 2 4321-2 #### [facility] CLIA [id number] [address] [place] [address] [place] Potassium [Moles/Vol] 4.3 mmol/L Normal 3.7-5.1 [facility] Comment on above: Order Comment: Carie lowe Type: BLOOD SPECIMEN Ordering Facility: [facility] Address: [address] [place] [address] Performed By: #### 2 4321-2 #### [facility] CLIA [id number] [address] [place] [address] [place] Sodium [Moles/Vol] 141 mmol/L Normal 136-144 [facility] Comment on above: Order Comment: Amnai men Type: BLOOD SPECIMEN Ordering Facility: [facility] Address: [address] [place] [address] Performed By: #### 2 4321-2 #### [facility] CLIA [id number] [address] [place] [address] [place] Urea nitrogen [Mass/Vol] 22 mg/dL Normal 9-24 [facility] Comment on above: Order Comment: Amnai men Type: BLOOD SPECIMEN Ordering Facility: [facility] Address: [address] [place] [address] Performed By: #### 2 4321-2 #### [facility] CLIA [id number] [address] CBC panel Auto (Bld)on 06-19 Erythrocyte distribution width (RBC) [Ratio] 13.2 % Normal 11.5-15.0 [facility] Comment on above: Order Comment: Speci men Type: BLOOD SPECIMEN Ordering Facility: [facility] Address: [address] [place] [address] Performed By: #### 5 8410-2 #### [facility] CLIA [id number] [address] Hematocrit (Bld) [Volume fraction] 41.4 % Normal 39.0-51.0 [facility] Comment on above: Order Comment: Speci men Type: BLOOD SPECIMEN Ordering Facility: [facility] Address: [address] [place] [address] Performed By: #### 5 8410-2 #### [facility] CLIA [id number] [address] Hemoglobin (Bld) [Mass/Vol] 14.0 g/dL Normal 13.0-17.0 [facility] Comment on above: Order Comment: Speci men Type: BLOOD SPECIMEN Ordering Facility: [facility] Address: [address] [place] [address] Performed By: #### 5 8410-2 #### [facility] CLIA [id number] [address] MCH (RBC) [Entitic mass] 31.7 pg Normal 26.0-34.0 [facility] Comment on above: Order Comment: Speci men Type: BLOOD SPECIMEN Ordering Facility: [facility] Address: [address] [place] [address] Performed By: #### 5 8410-2 #### [facility] CLIA [id number] [address] [place] MCHC (RBC) [Mass/Vol] 33.8 g/dL Normal 30.5-36.0 [facility] Comment on above: Order Comment: Speci men Type: BLOOD SPECIMEN Ordering Facility: [facility] Address: [address] [place] [address] Performed By: #### 5 8410-2 #### [facility] CLIA [id number] [address] [place] MCV (RBC) [Entitic vol] 93.9 fL Normal 80.0-100.0 [facility] Comment on above: Order Comment: Speci men Type: BLOOD SPECIMEN Ordering Facility: [facility] Address: [address] [place] [address] Performed By: #### 5 8410-2 #### [facility] CLIA [id number] [address] [place] Nucleated RBC (Bld) [#/Vol] 10*3/uL Normal <0.01 [facility] Comment on above: Order Comment: Speci men Type: BLOOD SPECIMEN Ordering Facility: [facility] Address: [address] [place] [address] Performed By: #### 5 8410-2 #### [facility] CLIA [id number] [address] [place] Platelet mean volume (Bld) [Entitic vol] 9.4 fL Normal 9.0-12.7 [facility] Comment on above: Order Comment: Speci men Type: BLOOD SPECIMEN Ordering Facility: [facility] Address: [address] [place] [address] Performed By: #### 5 8410-2 #### [facility] CLIA [id number] [address] [place] Platelets (Bld) [#/Vol] 200 10*3/uL Normal 150-400 [facility] Comment on above: Order Comment: Speci men Type: BLOOD SPECIMEN Ordering Facility: [facility] Address: [address] [place] [address] Performed By: #### 5 8410-2 #### [facility] CLIA [id number] [address] [place] RBC (Bld) [#/Vol] 4.41 10*6/uL Normal 4.20-6.00 [facility] Comment on above: Order Comment: Speci men Type: BLOOD SPECIMEN Ordering Facility: [facility] Address: [address] [place] [address] Performed By: #### 5 8410-2 #### [facility] CLIA [id number] [address] WBC (Bld) [#/Vol] 5.17 10*3/uL Normal 3.70-11.00 [facility] Comment on above: Order Comment: Speci men Type: BLOOD SPECIMEN Ordering Facility: [facility] Address: [address] [place] [address] Performed By: #### 5 8410-2 #### [facility] CLIA [id number] [address] CONFIRM BLOOD TYPEon 023 ABO A Normal [facility] Comment on above: Order Comment: Speci men Type: BLOOD SPECIMEN Ordering Facility: [facility] Address: [address] [place] [address] Performed By: #### C ONABO #### [facility] CLIA [id number] [address] Rh Nom (Bld) Negative Normal [facility] Comment on above: Order Comment: Speci men Type: BLOOD SPECIMEN Ordering Facility: [facility] Address: [address] [place] [address] Performed By: #### C ONABO #### [facility] CLIA [id number] [address] HISTORY PHYSICALon HISTORY PHYSICAL HNO ID: [id number] Author: Viktoriya Marcial MD Service: Electrophysiology Author [...] June 19, 2023 TIME: 8:30 AM Normal [facility] TYPE + SCREENon 06-19-2023 ABO A Normal [facility] Comment on above: Order Comment: Speci men Type: BLOOD SPECIMENOrdering Facility: [facility] Address: [address] [place] [address] Performed By: #### T SCR ####[facility] [id number] [address] HISTORICAL AB SCR STATUS Negative [facility] Comment on above: Order Comment: Speci men Type: BLOOD SPECIMENOrdering Facility: [facility] Address: [address] [place] [address] Performed By: #### T SCR ####[facility] [id number] [address] Rh Nom (Bld) Negative [facility] Comment on above: Order Comment: Speci men Type: BLOOD SPECIMENOrdering Facility: [facility] Address: [address] [place] [address] Performed By: #### T SCR ####[facility] [id number] [address] TYPE AND SCREEN EXPIRATION 06/22/2023 23:59 Normal [facility] Comment on above: Order Comment: Speci men Type: BLOOD SPECIMENOrdering Facility: [facility] Address: [address] [place] [address] Performed By: #### T SCR ####[facility] [id number] [place] [address] [place] XR CHEST 1V [...] lead in right ventricle stable position Overlying security monitor leads. Right shoulder replacement. Lungs and pleura: Clear. No infiltrates or effusions. Cardiomediastinal silhouette: Normal cardiomediastinal silhouette. Other: No significant additional findings. IMPRESSION: No acute radiographic abnormality. [employer]: YOVANA Transcribe Date/Time: Jun 19 2023 2:59P Dictated by : BRITTNEY WALDEN MD This examination was interpreted and the report reviewed and electronically signed by: BRITTNEY WALDEN MD on Jun 19 2023 3:01PM EST [id number] Normal [facility] CNOVon 06-16-2023 CNOV Office Visit (BREONNA PADILLA) ----- BRIGETTE HOLGUIN ([id number]) 1950 M Date Time Provider Department 06/16/23 11:00 AM LONNIE MERCER During your visit today, we recorded the following information about you: Temperature Blood pressure Weight Height 67 degrees 148/74 71.2 kg 1.753 m Shahida Lugo MA 06/16/2023 10:43 AM Signed No cardiac complaints today. JOHN Escobar Drew, APRN.MECHANICAL LABORATORY TECHNICIAN 06/16/2023 12:20 PM Signed [facility] Cardiology Electrophysiology PRIMARY CARE PHYSICIAN: Paresh Carranza [address] [facility] [address] [place] [address] CHIEF COMPLAINT: History and physical update prior [...] dysfunction, status post dual-chamber pacemaker implantation at [facility] in 2012. Device now is approaching [...] general anesthesia, CTS backup, overnight stay in [facility], risk/benefits, and follow-up. Benefit being replacement of [...] WHEN PFRMD 09/15/2009 Colonoscopy PACEMAKER IMPLANT 12/03/2012 [facility] PACEMAKER IMPLANT 01/04/2013 re-implanted due to [...] coroted art (more content not included)... Normal [facility] Basophil percentageOrdered B y: Thierry Pepe on 06-12-2023 Chloride [Moles/Vol] 107 mmol[facility]L 98-107 [facility] Glucose [Mass/Vol] 96 mg/dL 74-106 [facility] Potassium [Moles/Vol] 4.0 mmol/L 3.5-5.1 [facility] Sodium [Moles/Vol] 141 mmol/L 136-145 [facility] WBC (Bld) [#/Vol] 5.8 10*3/uL 4.4-11.0 [facility] Blood erythrocytes count (nu mber/volume)Ordered By: Thierry Pepe on 06-12-2023 RBC (Bld) [#/Vol] 4.64 10*6/uL 4.6-6.[address] [facility] Blood hemoglobin measurement (mass/volume)Ordered By: Thierry Pepe on 06-12-2023 Hemoglobin (Bld) [Mass/Vol] 14.7 g/dL 13.0-16.5 [facility] Blood platelet mean volumeOr dered By: Thierry Pepe on 06-12-2023 Platelet mean volume (Bld) [Entitic vol] 9.5 fL 6.2-12.0 [facility] Determination of erythrocyte mean corpuscular volume (MCV)Ordered By: Thierry Pepe on 06-12-2023 MCV (RBC) [Entitic vol] 95.9 fL 80-94 [facility] Hematocrit Auto (Bld) [Volum e fraction]Ordered By: Thierry Pepe on 06-12-2023 Hematocrit (Bld) [Volume fraction] 44.5 % 40-54 [facility] - Chemistry and C hemistry - challengeOrdered By: Thierry Pepe on 06-12-2023 CO2 [Moles/Vol] 30.0 mmol/L 21.0-32.0 [facility] Urea nitrogen/Creatinine [Mass ratio] 15.9 mg/mg 10-20 [facility] - Hematology and Cell countsOrdered By: Thierry Pepe on 06-12-2023 Erythrocyte distribution width (RBC) [Entitic vol] 47.9 fL 35.1-43.9 [facility] Erythrocyte distribution width (RBC) [Ratio] 13.5 % 11.6-14.6 [facility] MCH (RBC) [Entitic mass] 31.7 pg 27.0-32.0 [facility] MCHC Auto (RBC) [Mass/Vol]Or dered By: Thierry Pepe on 06-12-2023 MCHC (RBC) [Mass/Vol] 33.0 g/dL 32-36 [facility] No Panel InformationOrdered By: Thierry Pepe on 06-12-2023 Estimated GFR (MDRD) Amer 72 mL/min >60 [facility] Comment on above: GFR Calc Estimated GFR (MDRD) Non-Af Amer 60 mL/min >60 [facility] Comment on above: Non- GFR Calc No Panel InformationOrdered By: Kamaljit Ingram on 06-12-2023 Thyroid Stimulating Hormone (TSH) 3.00 uIU/mL 0.358-3.74 [facility] Platelets bldOrdered By: Jose Roberto Pepe on 06-12-2023 Platelets (Bld) [#/Vol] 216 10*3/uL 150-450 [facility] Serum or plasma calcium gm urement (mass/volume)Ordered By: Thierry Pepe on 06-12-2023 Calcium [Mass/Vol] 9.2 mg/dL 8.5-10.1 [facility] Serum or plasma creatinine m easurement (mass/volume)Ordered By: Thierry Pepe on 06-12-2023 Creatinine [Mass/Vol] 1.26 mg/dL 0.70-1.30 [facility] Comment on above: The validity of the calculated GFR & GFRAA in patients over 70 years has not been determined. Clinical correlation is essential. Serum or plasma urea nitroge n measurement (mass/volume)Ordered By: Thierry Pepe on 06-12-2023 Urea nitrogen [Mass/Vol] 20 mg/dL 7-18 [facility] Thin prep Papanicolaou smear with manual screeningOrdered By: Thierry Pepe on 06-12-2023 Thin prep Papanicolaou smear with manual screening 4 5-15 [facility] - Chemistry and C hemistry - challengeOrdered By: Paresh Carranza on 05-19-2023 Free T4 [Mass/Vol] 0.98 ng/dL 0.76-1.46 [facility] No Panel InformationOrdered By: Paresh Carranza on 05-19-2023 Free Triiodothyronine (T3) pg/dL 2.4 pg/mL 2.18-3.98 [facility] Thyroid Stimulating Hormone (TSH) 3.00 uIU/mL 0.358-3.74 [facility] CNPNon 05-05-2023 CNPN Telephone (AGCARDPOB ) ----- BRIGETTE HOLGUIN ([id number]) 1950 M Date Time Provider Department 05/05/23 [...] before the procedure. You will need a motorcycle delivery driver when released from the hospital and you will stay overnight for observation. You should continue to take medications as prescribed the morning of the procedure with just a sip of water unless otherwise instructed. HANDP update on 06/16 at 11am with Lonnie Mercer [address] [facility] [address] [place] [address] Spoke with Brigette Holguin on May 05, [...] Encounter Status:Closed by JR SMITH on 05/05/23 [facility] Yary 04-23-2023 CNOV Office Visit (BREONNA PADILLA) ----- BRIGETTE HOLGUIN ([id number]) 1950 M Date Time Provider Department 04/23/23 11:00 AM VIKTORIYA MARCIALHAGCARDPOB During your visit today, we recorded the following information about you: Pulse Blood pressure Weight Height 60/minute 124/70 70.3 kg 1.753 m Adriane Cuellar LPN 04/23/2023 10:54 AM Signed Patient denies any cardiac complaints or symptoms. LINDA Arevalo Sergey Aleksandrovich, MD 04/23/2023 11:57 AM Signed [facility] SECTION OF CARDIAC PACING and ELECTROPHYSIOLOGY OUTPATIENT VISIT DATE April 23, 2023 OUTPATIENT VISIT TYPE NEW PRIMARY CARE PHYSICIAN: Paresh Carranza [address] [place] [address] HISTORY OF PRESENT ILLNESS: 72-year-old male with history of essential hypertension, coronary disease, status post remote PCI, paroxysmal atrial fibrillation, on rate control strategy, not anticoagulated due to severe bruising, sinus node dysfunction, status post dual-chamber pacemaker implantation at [facility] in 2012. Device now is approaching [...] Asthma with chronic obstructive pulmonary disease (COPD) ([facility]) 03/01/2015 Atrial fibrillation ([facility]) 09/22/2012 Benign hypertension 2015 CAD (coronary artery disease) Diverticulosis of colon (without mention of hemorrhage) Hemiplegia, nondominant side S/P CVA (cerebrovascular accident) 08/07/2012 HTN (hypertension) Hypercholesterolemia Hyperlipidemia LDL goal <100 2015 Presence of cardiac pacemaker 03/01/2015 Spinal stenosis of lumbar region without neurogenic claudication 03/01/2015 Stroke ([facility]) 08/07/2012 right posterior frontal lobe, left hand [...] (70.3 k (more content not included)... Normal [facility] Absolute lymphocyte countOrd ered By: Uma Israel on 03-12-2023 Lymphocytes Auto (Unsp spec) [#/Vol] 1.57 10*3/uL 0.83-4.51 [facility] Basophil percentageOrdered B y: Uma Israel on 03-12-2023 Basophils/100 WBC (Bld) 0.9 % 0-1 [facility] Eosinophils/100 WBC (Bld) 1.2 % 0-5 [facility] Neutrophils (Bld) [#/Vol] 3.4 10*3/uL 2.0-7.7 [facility] Neutrophils/100 WBC (Bld) 59.9 % 47-70 [facility] WBC (Bld) [#/Vol] 5.7 10*3/uL 4.4-11.0 [facility] Blood erythrocytes count (nu mber/volume)Ordered By: Uma Israel on 03-12-2023 RBC (Bld) [#/Vol] 4.56 10*6/uL 4.6-6.[address] [facility] Blood hemoglobin measurement (mass/volume)Ordered By: Uma Israel on 03-12-2023 Hemoglobin (Bld) [Mass/Vol] 14.1 g/dL 13.0-16.5 [facility] Blood lymphocytes/100 leukoc ytesOrdered By: Uma Israel on 03-12-2023 Lymphocytes/100 WBC (Bld) 27.7 % 19-41 [facility] Blood monocytes/100 leukocyt esOrdered By: Uma Israel on 03-12-2023 Monocytes/100 WBC (Bld) 10.1 % 0-10 [facility] Blood platelet mean volumeOr dered By: Uma Israel on 03-12-2023 Platelet mean volume (Bld) [Entitic vol] 9.9 fL 6.2-12.0 [facility] Determination of erythrocyte mean corpuscular volume (MCV)Ordered By: Uma Israel on 03-12-2023 MCV (RBC) [Entitic vol] 93.4 fL 80-94 [facility] Erythrocyte sedimentation ra teOrdered By: Uma Israel on 03-12-2023 ESR (Bld) [Velocity] 5 mm/h 0-20 [facility] Hematocrit Auto (Bld) [Volum e fraction]Ordered By: Uma Israel on 03-12-2023 Hematocrit (Bld) [Volume fraction] 42.6 % 40-54 [facility] - Hematology and Cell countsOrdered By: Uma Israel on 03-12-2023 Erythrocyte distribution width (RBC) [Entitic vol] 51.8 fL 35.1-43.9 [facility] Erythrocyte distribution width (RBC) [Ratio] 15.0 % 11.6-14.6 [facility] Immature granulocytes/100 WBC (Bld) 0.200 % 0.0-0.9 [facility] Comment on above: IG% - Immature Granu locytes (promyelocytes, myelocytes and metamyelocytes) > 1% indicates that a LEFT SHIFT is Present. MCH (RBC) [Entitic mass] 30.9 pg 27.0-32.0 [facility] Nucleated RBC/100 WBC (Bld) [Ratio] 0 % 0-5 [facility] MCHC Auto (RBC) [Mass/Vol]Or dered By: Uma Israel on 03-12-2023 MCHC (RBC) [Mass/Vol] 33.1 g/dL 32-36 [facility] Platelets bldOrdered By: Alfonso Israel on 03-12-2023 Platelets (Bld) [#/Vol] 215 10*3/uL 150-450 [facility] Serum or plasma C reactive p rotein measurement (mass/volume)Ordered By: Uma Israel on 03-12-2023 CRP [Mass/Vol] mg/L 0.0-3.0 [facility] Comment on above: C-Reactive Protein ( CRP) provides useful information for thediagnosis, therapy and monitoring of inflammatory processesand associated diseases. For the evaluation of Relative Riskfor Cardiovascular Disease, a High Sensitivity CRP (HSCRP)should be ordered. Basophil percentageOrdered B y: Dr. Carranza on 11-18-2022 Chloride [Moles/Vol] 107 mmol/L 98-107 [facility] Glucose [Mass/Vol] 101 mg/dL 74-106 [facility] Comment on above: Fasting Glucose resu lt from 100 to 125 mg/dL suggests IMPAIRED HOMEOSTASIS per A.D.A. criteria. Potassium [Moles/Vol] 5.2 mmol/L 3.5-5.1 [facility] Sodium [Moles/Vol] 137 mmol/L 136-145 [facility] - Chemistry and C hemistry - challengeOrdered By: Dr. Carranza on 11-18-2022 CO2 [Moles/Vol] 27.0 mmol/L 21.0-32.0 [facility] Free T4 [Mass/Vol] 0.97 ng/dL 0.76-1.46 [facility] Urea nitrogen/Creatinine [Mass ratio] 16.0 mg/mg 10-20 [facility] No Panel InformationOrdered By: Dr. Carranza on 11-18-2022 Estimated GFR (MDRD) Amer 59 mL/min >60 [facility] Comment on above: GFR Calc Estimated GFR (MDRD) Non-Af Amer 49 mL/min >60 [facility] Comment on above: Non- GFR Calc Free Triiodothyronine (T3) pg/dL 1.9 pg/mL 2.18-3.98 [facility] Thyroid Stimulating Hormone (TSH) 8.31 uIU/mL 0.358-3.74 [facility] Serum or plasma calcium gm urement (mass/volume)Ordered By: Dr. Carranza on 11-18-2022 Calcium [Mass/Vol] 9.0 mg/dL 8.5-10.1 [facility] Serum or plasma creatinine m easurement (mass/volume)Ordered By: Dr. Carranza on 11-18-2022 Creatinine [Mass/Vol] 1.50 mg/dL 0.70-1.30 [facility] Comment on above: The validity of the calculated GFR & GFRAA in patients over 70 years has not been determined. Clinical correlation is essential. Serum or plasma urea nitroge n measurement (mass/volume)Ordered By: Dr. Carranza on 11-18-2022 Urea nitrogen [Mass/Vol] 24 mg/dL 7-18 [facility] Thin prep Papanicolaou smear with manual screeningOrdered By: Dr. Carranza on 11-18-2022 Thin prep Papanicolaou smear with manual screening 3 5-15 [facility] No Panel InformationOrdered By: Jairo Grande on 10-03-2022 Thyroid Stimulating Hormone (TSH) 3.13 uIU/mL 0.358-3.74 [facility] Basophil percentageOrdered B y: Jairo Grande on 09-09-2022 Bilirubin [Mass/Vol] 0.40 mg/dL 0.20-1.00 [facility] Comment on above: For patients on eltr ombopag therapy, use of Dimension [place] TBIL is not recommended. Chloride [Moles/Vol] 111 mmol/L 98-107 [facility] Glucose [Mass/Vol] 88 mg/dL 74-106 [facility] Potassium [Moles/Vol] 5.0 mmol/L 3.5-5.1 [facility] Protein [Mass/Vol] 6.9 g/dL 6.4-8.2 [facility] Sodium [Moles/Vol] 144 mmol/L 136-145 [facility] Direct bilirubinOrdered By: Jairo Grande on 09-09-2022 Bilirubin.direct [Mass/Vol] 0.11 mg/dL 0.00-0.30 [facility] Laboratory - Chemistry and C hemistry - challengeOrdered By: Jairo Grande on 09-09-2022 ALP [Catalytic activity/Vol] 76 U/L 45-117 [facility] ALT [Catalytic activity/Vol] 21 U/L 16-61 [facility] CO2 [Moles/Vol] 28.0 mmol/L 21.0-32.0 [facility] Free T4 [Mass/Vol] 1.07 ng/dL 0.76-1.46 [facility] Globulin (S) [Mass/Vol] 2.9 g/dL 2.2-4.2 [facility] Magnesium [Mass/Vol] 2.3 mg/dL 1.6-2.6 [facility] Urea nitrogen/Creatinine [Mass ratio] 20.4 mg/mg 10-20 [facility] No Panel InformationOrdered By: Jairo Grande on 09-09-2022 Estimated GFR (MDRD) Amer 66 mL/min >60 [facility] Comment on above: GFR Calc Estimated GFR (MDRD) Non-Af Amer 54 mL/min >60 [facility] Comment on above: Non- GFR Calc Thyroid Stimulating Hormone (TSH) 6.62 uIU/mL 0.358-3.74 [facility] Serum or plasma albumin gm urement (mass/volume)Ordered By: Jairo Grande on 09-09-2022 Albumin [Mass/Vol] 4.0 g/dL 3.2-5.0 [facility] Serum or plasma calcium gm urement (mass/volume)Ordered By: Jairo Grande on 09-09-2022 Calcium [Mass/Vol] 9.2 mg/dL 8.5-10.1 [facility] Serum or plasma creatinine m easurement (mass/volume)Ordered By: Jairo Grande on 09-09-2022 Creatinine [Mass/Vol] 1.37 mg/dL 0.70-1.30 [facility] Comment on above: The validity of the calculated GFR & GFRAA in patients over 70 years has not been determined. Clinical correlation is essential. Serum or plasma urea nitroge n measurement (mass/volume)Ordered By: Jairo Grande on 09-09-2022 Urea nitrogen [Mass/Vol] 28 mg/dL 7-18 [facility] Thin prep Papanicolaou smear with manual screeningOrdered By: Jairo Grande on 09-09-2022 Thin prep Papanicolaou smear with manual screening 23 U/L 15-37 [facility] Thin prep Papanicolaou smear with manual screening 5 5-15 [facility] Laboratory - Chemistry and C hemistry - challengeon 05-20-2022 Cobalamin (Vitamin B12) [Mass/Vol] 191 pg/mL 211-911 [facility] Work Phone: Basophil percentageon 2021 Chloride [Moles/Vol] 106 mmol/L 98-107 [facility] Work Phone: Glucose [Mass/Vol] 86 mg/dL 74-106 [facility] Work Phone: [phone] Potassium [Moles/Vol] 4.8 mmol/L 3.5-5.1 [facility] Work Phone: Sodium [Moles/Vol] 138 mmol/L 136-145 [facility] Work Phone: [phone] Laboratory - Chemistry and C hemistry - challengeon 01-31-2022 CO2 [Moles/Vol] 28.0 mmol/L 21.0-32.0 [facility] Work Phone: Urea nitrogen/Creatinine [Mass ratio] 14.3 mg/mg 10-20 [facility] Work Phone: No Panel Informationon 01-31 Estimated GFR (MDRD) Amer 68 mL/min >60 [facility] Work Phone: Comment on above: GFR Calc Estimated GFR (MDRD) Non-Af Amer 56 mL/min >60 [facility] Work Phone: Comment on above: Non- GFR Calc Serum or plasma calcium gm urement (mass/volume)on 01-31-2022 Calcium [Mass/Vol] 9.8 mg/dL 8.5-10.1 [facility] Work Phone: [phone] Serum or plasma creatinine m easurement (mass/volume)on 01-31-2022 Creatinine [Mass/Vol] 1.33 mg/dL 0.70-1.30 [facility] Work Phone: Comment on above: The validity of the calculated GFR & GFRAA in patients over 70 years has not been determined. Clinical correlation is essential. Serum or plasma urea nitroge n measurement (mass/volume)on 01-31-2022 Urea nitrogen [Mass/Vol] 19 mg/dL 7-18 [facility] Work Phone: Thin prep Papanicolaou smear with manual screeningon 01-31-2022 Thin prep Papanicolaou smear with manual screening 4 5-15 [facility] Work Phone: Laboratory - Microbiology an d Antimicrobial susceptibilityon 01-09-2022 SARS-CoV-2 (COVID-19) RNA ALESHA+probe Ql (Unsp spec) Detected Not Detect [facility] Work Phone: Comment on above: Normal Reference Ran ge: Not DetectedMethod:(RT-PCR) real-time reverse transcriptase PCRLuminex JEROD Instrument*The Food and Drug Administration (FDA) has issued an Emergency Use Authorization (EAU) for the [facility] SARS-CoV-2 Assay for the rapid detection of [...] Vitamin B12 Level > 2000 pg/mL 211-[address] [facility] Work Phone: Basophil percentageon 2021 Bilirubin [Mass/Vol] 0.60 mg/dL 0.20-1.00 [facility] Work Phone: [phone] Comment on above: For patients on eltr ombopag therapy, use of Dimension [place] TBIL is not recommended. Cholesterol [Mass/Vol] 117 mg/dL <200 [facility] Work Phone: [phone] Comment on above: <200 mg/dL Desirable 200-240 mg/dL Borderline >240 mg/dL High Risk Protein [Mass/Vol] 6.8 g/dL 6.4-8.2 [facility] Work Phone: [phone] Triglyceride [Mass/Vol] 53 mg/dL <199 [facility] Work Phone: [phone] Comment on above: The drugs N-Acetylcy steine and Metamizole may falsely depress this assay.Serum Triglycerides Reference Interval Normal <150 mg/dL Borderline high 150 - 199 mg/dL High 200 - 499 mg/dL Very High > or = 500 mg/dL Direct bilirubinon Bilirubin.direct [Mass/Vol] 0.18 mg/dL 0.00-0.30 [facility] Work Phone: Laboratory - Chemistry and C hemistry - challengeon 11-22-2021 Free T4 [Mass/Vol] 1.19 ng/dL 0.76-1.46 [facility] Work Phone: [phone] ALP [Catalytic activity/Vol] 87 U/L 45-117 [facility] Work Phone: [phone] ALT [Catalytic activity/Vol] 29 U/L 16-61 [facility] Work Phone: Globulin (S) [Mass/Vol] 3.2 g/dL 2.2-4.2 [facility] Work Phone: No Panel Informationon 11-22 Thyroid Stimulating Hormone (TSH) 3.69 uIU/mL 0.358-3.74 [facility] Work Phone: Serum or plasma albumin gm urement (mass/volume)on 11-22-2021 Albumin [Mass/Vol] 3.6 g/dL 3.2-5.0 [facility] Work Phone: [phone] Serum or plasma cholesterol in HDL measurement (mass/volume)on 11-22-2021 Cholesterol in HDL [Mass/Vol] 59 mg/dL >40 [facility] Work Phone: [phone] Comment on above: The drugs N-Acetylcy steine and Metamizole may falsely depress this assay. Reference Range HDL <40 mg/dL Low HDL Cholesterol HDL >or= 60 mg/dL High HDL Cholesterol Serum or plasma cholesterol in VLDL measurement (mass/volume)on 11-22-2021 Cholesterol in VLDL [Mass/Vol] 11 mg/dL 5-40 [facility] Work Phone: [phone] Serum or plasma low density lipoprotein (LDL) cholesterol measurement (mass/volume)on 11-22-2021 Cholesterol in LDL [Mass/Vol] 47 mg/dL 0-130 [facility] Work Phone: Thin prep Papanicolaou smear with manual screeningon 11-22-2021 Thin prep Papanicolaou smear with manual screening 22 U/L 15-37 [facility] Work Phone: Absolute lymphocyte counton 10-11-2021 Lymphocytes Auto (Unsp spec) [#/Vol] 1.21 10*3/uL 0.83-4.51 [facility] Work Phone: Basophil percentageon 2021 Basophils/100 WBC (Bld) 0.7 % 0-1 [facility] Work Phone: Chloride [Moles/Vol] 106 mmol/L 98-107 [facility] Work Phone: Eosinophils/100 WBC (Bld) 0.4 % 0-5 [facility] Work Phone: Glucose [Mass/Vol] 103 mg/dL 74-106 [facility] Work Phone: Comment on above: Fasting Glucose resu lt from 100 to 125 mg/dL suggests IMPAIRED HOMEOSTASIS per A.D.A. criteria. Neutrophils (Bld) [#/Vol] 6.8 10*3/uL 2.0-7.7 [facility] Work Phone: Neutrophils/100 WBC (Bld) 74.6 % 47-70 [facility] Work Phone: Potassium [Moles/Vol] 4.4 mmol/L 3.5-5.1 [facility] Work Phone: Sodium [Moles/Vol] 139 mmol/L 136-145 [facility] Work Phone: WBC (Bld) [#/Vol] 9.1 10*3/uL 4.4-11.0 [facility] Work Phone: Blood erythrocytes count (nu mber/volume)on 10-11-2021 RBC (Bld) [#/Vol] 4.38 10*6/uL 4.6-6.[address] [facility] Work Phone: Blood hemoglobin measurement (mass/volume)on 10-11-2021 Hemoglobin (Bld) [Mass/Vol] 12.4 g/dL 13.0-16.5 [facility] Work Phone: Blood lymphocytes/100 leukoc yteson 10-11-2021 Lymphocytes/100 WBC (Bld) 13.4 % 19-41 [facility] Work Phone: Blood monocytes/100 leukocyt eson 10-11-2021 Monocytes/100 WBC (Bld) 10.3 % 0-10 [facility] Work Phone: Blood platelet mean volumeon 10-11-2021 Platelet mean volume (Bld) [Entitic vol] 9.4 fL 6.2-12.0 [facility] Work Phone: Determination of erythrocyte mean corpuscular volume (MCV)on 10-11-2021 MCV (RBC) [Entitic vol] 87.2 fL 80-94 [facility] Work Phone: Hematocrit Auto (Bld) [Volum e fraction]on 10-11-2021 Hematocrit (Bld) [Volume fraction] 38.2 % 40-54 [facility] Work Phone: Laboratory - Chemistry and C hemistry - challengeon 10-11-2021 CO2 [Moles/Vol] 30.0 mmol/L 21.0-32.0 [facility] Work Phone: Free T4 [Mass/Vol] 1.20 ng/dL 0.76-1.46 [facility] Work Phone: Natriuretic peptide B (Bld) [Mass/Vol] 17.9 pg/mL 0-100 [facility] Work Phone: Urea nitrogen/Creatinine [Mass ratio] 18.2 mg/mg 10-20 [facility] Work Phone: [phone] Laboratory - Hematology and Cell countson 10-11-2021 Erythrocyte distribution width (RBC) [Entitic vol] 53.8 fL 35.1-43.9 [facility] Work Phone: [phone] Erythrocyte distribution width (RBC) [Ratio] 16.9 % 11.6-14.6 [facility] Work Phone: [phone] Immature granulocytes/100 WBC (Bld) 0.600 % 0.0-0.9 [facility] Work Phone: [phone] Comment on above: IG% - Immature Granu locytes (promyelocytes, myelocytes and metamyelocytes) > 1% indicates that a LEFT SHIFT is Present. MCH (RBC) [Entitic mass] 28.3 pg 27.0-32.0 [facility] Work Phone: [phone] Nucleated RBC/100 WBC (Bld) [Ratio] 0 % 0-5 [facility] Work Phone: [phone] MCHC Auto (RBC) [Mass/Vol]on 10-11-2021 MCHC (RBC) [Mass/Vol] 32.5 g/dL 32-36 [facility] Work Phone: No Panel Informationon 10-11 Estimated GFR (MDRD) Amer 60 mL/min >60 [facility] Work Phone: Comment on above: GFR Calc Estimated GFR (MDRD) Non-Af Amer 50 mL/min >60 [facility] Work Phone: Comment on above: Non- GFR Calc Thyroid Stimulating Hormone (TSH) 4.35 uIU/mL 0.358-3.74 [facility] Work Phone: Platelets bldon 10-11-2021 Platelets (Bld) [#/Vol] 310 10*3/uL 150-450 [facility] Work Phone: [phone] Serum or plasma calcium gm urement (mass/volume)on 10-11-2021 Calcium [Mass/Vol] 9.1 mg/dL 8.5-10.1 [facility] Work Phone: [phone] Serum or plasma creatinine m easurement (mass/volume)on 10-11-2021 Creatinine [Mass/Vol] 1.48 mg/dL 0.70-1.30 [facility] Work Phone: Comment on above: The validity of the calculated GFR & GFRAA in patients over 70 years has not been determined. Clinical correlation is essential. Serum or plasma urea nitroge n measurement (mass/volume)on 10-11-2021 Urea nitrogen [Mass/Vol] 27 mg/dL 7-18 [facility] Work Phone: Thin prep Papanicolaou smear with manual screeningon 10-11-2021 Thin prep Papanicolaou smear with manual screening 3 5-15 [facility] Work Phone: .Auto Diffon 03-30-2021 Basophil, Absolute 0.10 10 3/mcL Normal 0.00-0.19 [facility] ([place] Comment on above: Performed By: #### C MICHELLE CHRISTIAN ANEU, BMP #### [place] [address] #### GFR #### [address] [address] Basophils/100 WBC (Bld) 0.6 % Normal 0.0-2.5 [facility] ([place]) Comment on above: Performed By: #### C MICHELLE CHRISTIAN ANEU, BMP #### [place] [address] #### GFR #### [address] [address] Eosinophil, Absolute 0.00 10 3/mcL Normal 0.00-0.40 A [facility] ([place] Comment on above: Performed By: #### C BC ADJARRELL ANEU, BMP #### [place] [address] #### GFR #### [address] [address] Eosinophils/100 WBC (Bld) 0.0 % Normal 0.0-7.0 [facility] ([place] Comment on above: Performed By: #### C BC ADIFF ANEU, BMP #### [place] [address] #### GFR #### [address] [address] Lymphocyte, Absolute 0.20 10 3/mcL Low 0.77-3.85 A [facility] ([place] Comment on above: Performed By: #### C BC, ADIFF, ANEU, BMP #### [address] [address] #### GFR #### [address] [address] Lymphocytes/100 WBC (Bld) 1.9 % Low 10.0-50.0 [facility] ([place]) Comment on above: Performed By: #### C BC, ADIFF, ANEU, BMP #### [place] [address] #### GFR #### [address] [address] Monocyte, Absolute 0.60 10 3/mcL Normal 0.15-1.00 [facility] ([place] Comment on above: Performed By: #### C BC, ADIFF, ANEU, BMP #### [place] [address] #### GFR #### [address] [address] Monocytes/100 WBC (Bld) 4.8 % Normal 1.7-13.0 [facility] ([place] Comment on above: Performed By: #### C BC, ADIFF, ANEU, BMP #### [place] [address] #### GFR #### [address] [address] Neutrophils/100 WBC (Bld) 92.7 % High 37.0-80.0 [facility] ([place] Comment on above: Performed By: #### C BC, ADIFF, ANEU, BMP #### [place] [address] #### GFR #### [address] [address] .GFRon 03-30-2021 GFR 60 ml/min/1.73sqm Normal [facility] ([place] Comment on above: Result Comment: GFR Population [...] #### C BC, ADIFF, ANEU, BMP #### [address] [address] #### GFR #### [address] [address] GFR Non- 49 ml/min/1.73sqm Normal [facility] ([place] Comment on above: Result Comment: GFR Population [...] #### C BC, ADIFF, ANEU, BMP #### [address] [address] #### GFR #### [address] [address] .NEUABSon 03-30-2021 Neutrophil, Absolute 11.50 10 3/mcL High 2.85-6.16 [facility] ([place] Comment on above: Performed By: #### C BC, ADIFF, ANEU, BMP #### [address] [address] #### GFR #### [address] [address] BMPon 03-30-2021 BUN/Creatinine Ratio 12 ratio Normal 02-27 [facility] ([place] Comment on above: Performed By: #### C BC, ADIFF, ANEU, BMP #### [address] [address] #### GFR #### [address] [address] Calcium [Mass/Vol] 8.7 mg/dL Normal 8.4-10.2 [facility] to [facility] ([place] Comment on above: Performed By: #### C BC, ADIFF, ANEU, BMP #### [address] [address] #### GFR #### [address] [address] Chloride [Moles/Vol] 101 mmol/L Normal 98-107 [facility] ([place] Comment on above: Performed By: #### C BC, ADIFF, ANEU, BMP #### [address] [address] #### GFR #### [address] [address] CO2 [Moles/Vol] 31 mmol/L Normal 23-31 [facility] ([place] Comment on above: Performed By: #### C BC, ADIFF, ANEU, BMP #### [address] [address] #### GFR #### [address] [address] Creatinine [Mass/Vol] 1.42 mg/dL High 0.70-1.30 [facility] ([place] Comment on above: Performed By: #### C BC, ADIFF, ANEU, BMP #### [address] [address] #### GFR #### [address] [address] Electrolyte Balance 7.0 mEq/L Normal [facility] ([place] Comment on above: Performed By: #### C BCMICHELLE ANEU, BMP #### [address] [address] #### GFR #### [address] [address] Glucose [Mass/Vol] 126 mg/dL High 83-110 [facility] ([place] Comment on above: Performed By: #### C MICHELLE CHRISTIAN ANEU, BMP #### [place] [address] #### GFR #### [address] [address] Potassium [Moles/Vol] 4.6 mmol/L Normal 3.5-5.1 [facility] ([place] Comment on above: Performed By: #### C MICHELLE CHRISTIAN ANEU, BMP #### [address] [address] #### GFR #### [address] [address] Sodium [Moles/Vol] 139 mmol/L Normal 136-145 [facility] ([place] Comment on above: Performed By: #### C MICHELLE CHRISTIAN ANEU, BMP #### [address] [address] #### GFR #### [address] [address] Urea nitrogen [Mass/Vol] 17 mg/dL Normal 7-18 [facility] ([place] Comment on above: Performed By: #### C MICHELLE CHRISTIAN ANEU, BMP #### [address] [address] #### GFR #### [address] [address] CBCon 03-30-2021 Erythrocyte distribution width (RBC) [Ratio] 14.7 % High 11.5-14.5 [facility] ([place] Comment on above: Performed By: #### C BC, ADIFF, ANEU, BMP ####[place] [address]#### GFR ####[place] [address] Hematocrit (Bld) [Volume fraction] 34.8 % Low 42.0-52.0 [facility] ([place] Comment on above: Performed By: #### C BC, ADIFF, ANEU, BMP ####[place] [address]#### GFR ####[place] [address] Hgb 11.6 G/dL Low 14.0-18.0 [facility] ([place] Comment on above: Performed By: #### C BC, ADIFF, ANEU, BMP ####[place] [address]#### GFR ####[place] [address] MCH (RBC) [Entitic mass] 31.1 pg Normal 27.0-31.2 [facility] ([place] Comment on above: Performed By: #### C BC, ADIFF, ANEU, BMP ####[place] [address]#### GFR ####[place] [address] MCHC 33.3 G/dL Normal 31.8-35.4 [facility] ([place] Comment on above: Performed By: #### C BC, ADIFF, ANEU, BMP ####[facility] [place] [address]#### GFR ####[place] [address] MCV (RBC) [Entitic vol] 93.3 fL Normal 80.0-94.0 [facility] ([place] Comment on above: Performed By: #### C BC, ADIFF, ANEU, BMP ####[place] [address]#### GFR ####[place] [address] Platelet 259 10 3/mcL Normal 130-400 [facility] ([place] Comment on above: Performed By: #### C BC ADJARRELL, ANEU, BMP ####[place] [address]#### GFR ####[place] [address] Platelet mean volume (Bld) [Entitic vol] 7.8 fL Normal 7.4-10.4 [facility] ([place] Comment on above: Performed By: #### C MICHELLE CHRISTIAN, ANEU, BMP ####[place] [address]#### GFR ####[place] [address] RBC 3.72 10 6/mcL Low 4.04-6.13 [facility] ([place] Comment on above: Performed By: #### C BC ADJARRELL, ANEU, BMP ####[place] [address]#### GFR ####[place] [address] WBC 12.50 10 3/mcL High 4.60-10.80 [facility] ([place] Comment on above: Performed By: #### C BC ADJARRELL, ANEU, BMP ####[place] [address]#### GFR ####[place] [address] .Auto Diffon 03-29-2021 Basophil, Absolute 0.00 10 3/mcL Normal 0.00-0.19 [facility] ([place] Comment on above: Performed By: #### C BC, ADIFF, ANEU ####[place] [address] [address]#### BMP, GFR ####[place] [address] Basophils/100 WBC (Bld) 0.3 % Normal 0.0-2.5 [facility] ([place] Comment on above: Performed By: #### C BC, ADIFF, ANEU ####[place] [address]#### BMP, GFR ####[address] [address] Eosinophil, Absolute 0.00 10 3/mcL Normal 0.00-0.40 A [facility] ([place] Comment on above: Performed By: #### C BC, ADIFF, ANEU ####[place] [address]#### BMP, GFR ####[address] [address] Eosinophils/100 WBC (Bld) 0.2 % Normal 0.0-7.0 [facility] ([place] Comment on above: Performed By: #### C BC, ADIFF, ANEU ####[place] [address]#### BMP, GFR ####[address] [address] Lymphocyte, Absolute 1.00 10 3/mcL Normal 0.77-3.85 A [facility] ([place] Comment on above: Performed By: #### C BC, ADIFF, ANEU ####[place] [address]#### BMP, GFR ####[address] [address] Lymphocytes/100 WBC (Bld) 9.4 % Low 10.0-50.0 [facility] ([place] Comment on above: Performed By: #### C BC, ADIFF, ANEU ####[place] [address]#### BMP, GFR ####[address] [address] Monocyte, Absolute 1.20 10 3/mcL High 0.15-1.00 [facility] ([place] Comment on above: Performed By: #### C BC, ADIFF, ANEU ####[place] [place], [place] [address]#### BMP, GFR ####[facility] [place] [address] Monocytes/100 WBC (Bld) 12.0 % Normal 1.7-13.0 [facility] ([place]) Comment on above: Performed By: #### C BC, ADIFF, ANEU ####[place] [address] [place], [place] [address]#### BMP, GFR ####[address] [address] Neutrophils/100 WBC (Bld) 78.1 % Normal 37.0-80.0 [facility] ([place]) Comment on above: Performed By: #### C BC ADIFF, ANEU ####[place] [address] [place], [place] [address]#### BMP, GFR ####[address] [address] .GFRon 03-29-2021 GFR 58 ml/min/1.73sqm Normal [facility] ([place]) Comment on above: Result Comment: GFR [...] By: #### C BC, ADIFF, ANEU ####[place] [address] [place], [place] [address]#### BMP, GFR ####[place] [address] [address] [place] [address] GFR Non- 48 ml/min/1.73sqm Normal [facility] ([place] Comment on above: Result Comment: GFR Population [...] #### C MICHELLE CHRISTIAN, ANEU ####[place] [place] [address]#### BMP, GFR ####[address] [address] .NEUABSon 03-29-2021 Neutrophil, Absolute 8.10 10 3/mcL High 2.85-6.16 A [facility] ([place] Comment on above: Performed By: #### C MICHELLE CHRISTIAN, ANEU ####[place] [address] [place] [address]#### BMP, GFR ####[address] [address] BMPon 03-29-2021 BUN/Creatinine Ratio 14 ratio Normal 7-27 [facility] ([place] Comment on above: Performed By: #### MICHELLE TATE, ANEU ####[place] [place] [address]#### BMP, GFR ####[address] [address] Calcium [Mass/Vol] 8.9 mg/dL Normal 8.4-10.2 [facility] to [facility] ([place] Comment on above: Performed By: #### C BCVADIMIFF, ANEU ####[place] [place] [address]#### BMP, GFR ####[address] [address] Chloride [Moles/Vol] 104 mmol/L Normal 98-107 [facility] ([place] Comment on above: Performed By: #### C BC, ADIFF, ANEU ####Marina [address] [place], [place] [address]#### BMP, GFR ####[address] [address] CO2 [Moles/Vol] 30 mmol/L Normal 23-31 [facility] ([place] Comment on above: Performed By: #### C BC, ADIFF, ANEU ####[facility] [place] [address]#### BMP, GFR ####[address] [address] Creatinine [Mass/Vol] 1.45 mg/dL High 0.70-1.30 [facility] ([place] Comment on above: Performed By: #### VADIM TATEIFF, ANEU ####[place] [address]#### BMP, GFR ####[address] [address] Electrolyte Balance 6.0 mEq/L Normal [facility] ([place] Comment on above: Performed By: #### C VADIM CHRISTIANIFF, ANEU ####[place] [place], [place] [address]#### BMP, GFR ####[address] [address] Glucose [Mass/Vol] 98 mg/dL Normal 83-110 [facility] to [facility] ([place] Comment on above: Performed By: #### C BC, ADIFF, ANEU ####[address] [place], [place] [address]#### BMP, GFR ####[address] [address] Potassium [Moles/Vol] 4.3 mmol/L Normal 3.5-5.1 [facility] ([place] Comment on above: Performed By: #### C BC, ADIFF, ANEU ####[place] [address] [place], [place] [address]#### BMP, GFR ####[address] [address] Sodium [Moles/Vol] 140 mmol/L Normal 136-145 [facility] to [facility] ([place] Comment on above: Performed By: #### C BC, ADIFF, ANEU ####Marina [address] [address]#### BMP, GFR ####[address] [address] Urea nitrogen [Mass/Vol] 20 mg/dL High 7-18 [facility] ([place] Comment on above: Performed By: #### C BC, ADIFF, ANEU ####[place] [address]#### BMP, GFR ####[address] [address] CBCon 03-29-2021 Erythrocyte distribution width (RBC) [Ratio] 14.7 % High 11.5-14.5 [facility] ([place] Comment on above: Performed By: #### C BC, MICHELLE, ANEU ####[place] [address]#### BMP, GFR ####[address] [address] Hematocrit (Bld) [Volume fraction] 35.7 % Low 42.0-52.0 [facility] ([place] Comment on above: Performed By: #### C BC, ADIFF, ANEU ####Marina [address] [address]#### BMP, GFR ####[address] [address] Hgb 12.1 G/dL Low 14.0-18.0 [facility] ([place]) Comment on above: Performed By: #### C BC, ADIFF, ANEU ####Marina [address] [place] [address]#### BMP, GFR ####[address] [address] MCH (RBC) [Entitic mass] 31.3 pg High 27.0-31.2 [facility] ([place] Comment on above: Performed By: #### MICHELLE TATE, ANEU ####[place] [address]#### BMP, GFR ####[place] [address] MCHC 33.7 G/dL Normal 31.8-35.4 [facility] ([place] Comment on above: Performed By: #### C MICHELLE CHRISTIAN, ANEU ####[place] [address]#### BMP, GFR ####[place] [address] MCV (RBC) [Entitic vol] 92.7 fL Normal 80.0-94.0 [facility] [place] Comment on above: Performed By: #### C MICHELLE CHRISTIAN, ANEU ####[place] [address]#### BMP, GFR ####[place] [address] Platelet 248 10 3/mcL Normal 130-400 [facility] [place] Comment on above: Performed By: #### C MICHELLE CHRISTIAN, ANEU ####[place] [address]#### BMP, GFR ####[place] [address] Platelet mean volume (Bld) [Entitic vol] 7.4 fL Normal 7.4-10.4 [facility] [place] Comment on above: Performed By: #### C MICHELLE CHRISTIAN, ANEU ####[place] [address]#### BMP, GFR ####[place] [address] RBC 3.85 10 6/mcL Low 4.04-6.13 [facility] ([place] Comment on above: Performed By: #### C BCMICHELLE, ANEU ####[facility] [place], [place] [address]#### BMP, GFR ####[address] [address] WBC 10.30 10 3/mcL Normal 4.60-10.80 [facility] ([place] Comment on above: Performed By: #### C BC, ADIFF, ANEU ####[place] [address] [place], [place] [address]#### BMP, GFR ####[address] [address] XR SHOULDER MINIMUM 2 VIEWS RIGHTon 03-29-2021 [...] 03/29/2021 6:10:54 PM Ordering Provider: UMA Kang [facility] ([place]) .Auto Diffon 01-31-2021 Basophil, Absolute 0.00 10 3/mcL Normal 0.00-0.19 [facility] ([place]) Comment on above: Performed By: #### C BC, ADIFF, ANEU, BMP #### [address] [address] #### GFR #### [address] [address] Basophils/100 WBC (Bld) 0.1 % Normal 0.0-2.5 [facility] ([place] Comment on above: Performed By: #### C BC, ADIFF, ANEU, BMP #### [place] [address] #### GFR #### [address] [address] Eosinophil, Absolute 0.00 10 3/mcL Normal 0.00-0.40 A [facility] ([place]) Comment on above: Performed By: #### C BC, ADIFF, ANEU, BMP #### [place] [address] #### GFR #### [address] [address] Eosinophils/100 WBC (Bld) 0.0 % Normal 0.0-7.0 [facility] [place] Comment on above: Performed By: #### C BC, ADIFF, ANEU, BMP #### [place] [address] #### GFR #### [address] [address] Lymphocyte, Absolute 0.20 10 3/mcL Low 0.77-3.85 A [facility] ([place] Comment on above: Performed By: #### C BC, ADIFF, ANEU, BMP #### [place] [address] #### GFR #### [address] [address] Lymphocytes/100 WBC (Bld) 1.4 % Low 10.0-50.0 [facility] ([place] Comment on above: Performed By: #### C BC, ADIFF, ANEU, BMP #### [place] [address] #### GFR #### [address] [address] Monocyte, Absolute 0.90 10 3/mcL Normal 0.15-1.00 [facility] ([place] Comment on above: Performed By: #### C BC, ADIFF, ANEU, BMP #### [address] [address] #### GFR #### [address] [address] Monocytes/100 WBC (Bld) 6.5 % Normal 1.7-13.0 [facility] ([place] Comment on above: Performed By: #### C BC, ADIFF, ANEU, BMP #### [address] [address] #### GFR #### [address] [address] Neutrophils/100 WBC (Bld) 92.0 % High 37.0-80.0 [facility] ([place] Comment on above: Performed By: #### C BC, ADIFF, ANEU, BMP #### [address] [address] #### GFR #### [address] [address] .GFRon 01-31-2021 GFR 59 ml/min/1.73sqm Normal [facility] ([place] Comment on above: Result Comment: GFR Population [...] By: #### C BC, ADIFF, ANEU, BMP ####[address] [address]#### GFR ####Marina[address] [address] GFR Non- 49 ml/min/1.73sqm Normal [facility] ([place] Comment on above: Result Comment: GFR Population [...] Performed By: #### C BCMICHELLE ANEU, BMP ####[address] [place] [address]#### GFR ####[place] [address] .NEUABSon 01-31-2021 Neutrophil, Absolute 12.90 10 3/mcL High 2.85-6.16 [facility] [place] Comment on above: Performed By: #### C BCMICHELLE ANEU, BMP ####Marina [address] [place] [id number]#### GFR ####[place] [address] BMPon 01-31-2021 BUN/Creatinine Ratio 15 ratio Normal 7-27 [facility] ([place] Comment on above: Performed By: #### C BC ADIFF, ANEU, BMP ####Marina [address] [place] [address]#### GFR ####[place] [address] Calcium [Mass/Vol] 8.5 mg/dL Normal 8.4-10.2 [facility] to [facility] ([place]) Comment on above: Performed By: #### C BC, ADIFF, ANEU, BMP ####[place] [address]#### GFR ####[address] [address] Chloride [Moles/Vol] 106 mmol/L Normal 98-107 [facility] ([place] Comment on above: Performed By: #### C BCMICHELLE ANEU, BMP ####[address] [address]#### GFR ####[address] [address] CO2 [Moles/Vol] 26 mmol/L Normal 23-31 [facility] [place] Comment on above: Performed By: #### C MICHELLE CHRISTIAN ANEU, BMP ####[place] [address]#### GFR ####[address] [address] Creatinine [Mass/Vol] 1.43 mg/dL High 0.70-1.30 [facility] ([place] Comment on above: Performed By: #### C MICHELLE CHRISTIAN ANEU, BMP ####[place] [address]#### GFR ####[address] [address] Electrolyte Balance 9.0 mEq/L Normal [facility] ([place]) Comment on above: Performed By: #### C MICHELLE CHRISTIAN ANEU, BMP ####[place] [address]#### GFR ####[address] [address] Glucose [Mass/Vol] 125 mg/dL High 83-110 [facility] ([place] Comment on above: Performed By: #### C MICHELLE CHRISTIAN, ANEU, BMP ####[place] [id number]#### GFR ####[address] [address] Potassium [Moles/Vol] 4.7 mmol/L Normal 3.5-5.1 [facility] ([place] Comment on above: Performed By: #### C BC, ADIFF, ANEU, BMP ####[address] [address]#### GFR ####[address] [address] Sodium [Moles/Vol] 141 mmol/L Normal 136-145 [facility] [place] Comment on above: Performed By: #### C BC, ADIFF, ANEU, BMP ####[address] [address]#### GFR ####[address] [address] Urea nitrogen [Mass/Vol] 21 mg/dL High - [facility] ([place] Comment on above: Performed By: #### C BC, ADIFF, ANEU, BMP ####[place] [address]#### GFR ####[address] [address] CBCon 01-31-2021 Erythrocyte distribution width (RBC) [Ratio] 15.2 % High 11.5-14.5 [facility] ([place] Comment on above: Performed By: #### C BC, ADIFF, ANEU, BMP #### [address] [address] #### GFR #### [address] [address] Hematocrit (Bld) [Volume fraction] 34.8 % Low 42.0-52.0 [facility] ([place] Comment on above: Performed By: #### C BC, ADIFF, ANEU, BMP #### [address] [address] #### GFR #### [address] [address] Hgb 11.8 G/dL Low 14.0-18.0 [facility] ([place] Comment on above: Performed By: #### C BC, ADIFF, ANEU, BMP #### [address] [address] #### GFR #### [address] [address] MCH (RBC) [Entitic mass] 32.0 pg High 27.0-31.2 [facility] [place] Comment on above: Performed By: #### C BCMICHELLE ANEU, BMP #### [place] [address] #### GFR #### [place] [address] MCHC 34.0 G/dL Normal 31.8-35.4 [facility] ([place]) Comment on above: Performed By: #### C MICHELLE CHRISTIAN, ANEU, BMP #### [place] [address] #### GFR #### [place] [address] MCV (RBC) [Entitic vol] 94.0 fL Normal 80.0-94.0 [facility] [place] Comment on above: Performed By: #### C MICHELLE CHRISTIAN, ANEU, BMP #### [place] [address] #### GFR #### [place] [address] Platelet 228 10 3/mcL Normal 130-400 [facility] [place] Comment on above: Performed By: #### C MICHELLE CHRISTIAN ANEU, BMP #### [place] [address] #### GFR #### [place] [address] Platelet mean volume (Bld) [Entitic vol] 8.0 fL Normal 7.4-10.4 [facility] [place] Comment on above: Performed By: #### C BC, ADJARRELL, ANEU, BMP #### [place] [address] #### GFR #### [place] [address] RBC 3.70 10 6/mcL Low 4.04-6.13 [facility] ([place] Comment on above: Performed By: #### C BC, ADIFF, ANEU, BMP #### [address] [address] #### GFR #### [address] [address] WBC 14.00 10 3/mcL High 4.60-10.80 [facility] ([place] Comment on above: Performed By: #### C BC, ADIFF, ANEU, BMP #### [address] [address] #### GFR #### [address] [address] XR SHOULDER MINIMUM 2 VIEWS RIGHTon 01-30-2021 [...] Date: 01/30/2021 12:32:31 PM Ordering Provider:Uma Kang [facility] [place] .Auto Diffon 01-15-2021 Basophil, Absolute 0.00 10 3/mcL Normal 0.00-0.19 [facility] ([place] Comment on above: Performed By: #### C BC, ADIFF, ANEU, BMP #### [address] [address] #### GFR #### [address] [address] Basophils/100 WBC (Bld) 0.5 % Normal 0.0-2.5 [facility] ([place] Comment on above: Performed By: #### C BC, ADIFF, ANEU, BMP #### [place] [address] #### GFR #### [address] [address] Eosinophil, Absolute 0.00 10 3/mcL Normal 0.00-0.40 A [facility] ([place]) Comment on above: Performed By: #### C BC, ADIFF, ANEU, BMP #### [place] [address] #### GFR #### [address] [address] Eosinophils/100 WBC (Bld) 0.0 % Normal 0.0-7.0 [facility] ([place]) Comment on above: Performed By: #### C BC, ADIFF, ANEU, BMP #### [place] [address] #### GFR #### [address] [address] Lymphocyte, Absolute 0.70 10 3/mcL Low 0.77-3.85 A [facility] ([place]) Comment on above: Performed By: #### C BC, ADIFF, ANEU, BMP #### [place] [address] #### GFR #### [address] [address] Lymphocytes/100 WBC (Bld) 10.4 % Normal 10.0-50.0 [facility] ([place]) Comment on above: Performed By: #### C BC, ADIFF, ANEU, BMP #### [place] [address] #### GFR #### [address] [address] Monocyte, Absolute 0.60 10 3/mcL Normal 0.15-1.00 [facility] ([place]) Comment on above: Performed By: #### C BC, ADIFF, ANEU, BMP #### [place] [address] #### GFR #### [address] [address] Monocytes/100 WBC (Bld) 9.3 % Normal 1.7-13.0 [facility] ([place] Comment on above: Performed By: #### C BC, ADIFF, ANEU, BMP #### [address] [address] #### GFR #### [address] [address] Neutrophils/100 WBC (Bld) 79.8 % Normal 37.0-80.0 [facility] ([place] Comment on above: Performed By: #### C BC, ADIFF, ANEU, BMP #### [address] [address] #### GFR #### [address] [address] .GFRon 01-15-2021 GFR Non- 47 ml/min/1.73sqm Normal [facility] ([place] Comment on above: Result Comment: GFR Population [...] #### C BC, ADIFF, ANEU, BMP #### [address] [address] #### GFR #### [address] [address] GFR 57 ml/min/1.73sqm Normal [facility] ([place] Comment on above: Result Comment: GFR Population [...] #### C BC, ADIFF, ANEU, BMP #### [place] [address] #### GFR #### [address] [address] .NEUABSon 01-15-2021 Neutrophil, Absolute 5.10 10 3/mcL Normal 2.85-6.16 A [facility] ([place] Comment on above: Performed By: #### C BC, ADIFF, ANEU, BMP #### [place] [address] #### GFR #### [address] [address] BMPon 01-15-2021 BUN/Creatinine Ratio 20 ratio Normal 7-27 [facility] [place] Comment on above: Performed By: #### C BC, ADIFF, ANEU, BMP #### [place] [address] #### GFR #### [place] [id number] Calcium [Mass/Vol] 9.0 mg/dL Normal 8.4-10.2 [facility] to [facility] ([place] Comment on above: Performed By: #### C BC, ADIFF, ANEU, BMP #### [place] [address] #### GFR #### [place] [address] Chloride [Moles/Vol] 105 mmol/L Normal 98-107 [facility] ([place] Comment on above: Performed By: #### C BC, ADIFF, ANEU, BMP #### [address] [address] #### GFR #### [address] [address] CO2 [Moles/Vol] 29 mmol/L Normal 23-31 [facility] ([place] Comment on above: Performed By: #### C BC, ADIFF, ANEU, BMP #### [address] [address] #### GFR #### [address] [address] Creatinine [Mass/Vol] 1.48 mg/dL High 0.70-1.30 [facility] ([place] Comment on above: Performed By: #### C BC ADJARRELL, ANEU, BMP #### [address] [address] #### GFR #### [address] [address] Electrolyte Balance 8.0 mEq/L Normal [facility] ([place] Comment on above: Performed By: #### C BC, ADIFF, ANEU, BMP #### [address] [address] #### GFR #### [address] [address] Glucose [Mass/Vol] 81 mg/dL Low 83-110 P[facility] ([place] Comment on above: Performed By: #### C BC, ADIFF, ANEU, BMP #### [address] [address] #### GFR #### [address] [address] Potassium [Moles/Vol] 4.3 mmol/L Normal 3.5-5.1 [facility] ([place] Comment on above: Performed By: #### C BC, ADIFF, ANEU, BMP #### [address] [address] #### GFR #### [address] [address] Sodium [Moles/Vol] 142 mmol/L Normal 136-145 P[facility] to [facility] ([place] Comment on above: Performed By: #### C BCMICHELLE ANEU, BMP #### [address] [address] #### GFR #### [address] [address] Urea nitrogen [Mass/Vol] 29 mg/dL High 7-18 [facility] ([place] Comment on above: Performed By: #### C BCMICHELLE ANEU, BMP #### [place] [address] #### GFR #### [place] [address] CBCon 01-15-2021 Erythrocyte distribution width (RBC) [Ratio] 15.3 % High 11.5-14.5 [facility] [place] Comment on above: Order Comment: Pre-A dmission Testing Performed By: #### C BCMICHELLE ANEU, BMP #### [place] [address] #### GFR #### [address] [address] Hematocrit (Bld) [Volume fraction] 38.0 % Low 42.0-52.0 [facility] [place] Comment on above: Order Comment: Pre-A dmission Testing Performed By: #### C MICHELLE CHRISTIAN ANEU, BMP #### [place] [address] #### GFR #### [place] [address] Hgb 13.0 G/dL Low 14.0-18.0 [facility] [place] Comment on above: Order Comment: Pre-A dmission Testing Performed By: #### C BCMICHELLE ANEU, BMP #### [place] [address] #### GFR #### [address] [address] MCH (RBC) [Entitic mass] 32.7 pg High 27.0-31.2 [facility] [place] Comment on above: Order Comment: Pre-A dmission Testing Performed By: #### C BC, ADIFF, ANEU, BMP #### [place] [address] #### GFR #### [place] [address] MCHC 34.3 G/dL Normal 31.8-35.4 [facility] ([place] Comment on above: Order Comment: Pre-A dmission Testing Performed By: #### C BC, ADIFF, ANEU, BMP #### [place] [address] #### GFR #### [place] [address] MCV (RBC) [Entitic vol] 95.3 fL High 80.0-94.0 [facility] ([place] Comment on above: Order Comment: Pre-A dmission Testing Performed By: #### C BC, ADIFF, ANEU, BMP #### [place] [address] #### GFR #### [place] [address] Platelet 229 10 3/mcL Normal 130-400 [facility] ([place] Comment on above: Order Comment: Pre-A dmission Testing Performed By: #### C BC, ADIFF, ANEU, BMP #### [place] [address] #### GFR #### [place] [address] Platelet mean volume (Bld) [Entitic vol] 7.9 fL Normal 7.4-10.4 [facility] ([place] Comment on above: Order Comment: Pre-A dmission Testing Performed By: #### C BC, ADIFF, ANEU, BMP #### [place] [address] #### GFR #### [place] [address] RBC 3.98 10 6/mcL Low 4.04-6.13 [facility] ([place] Comment on above: Order Comment: Pre-A dmission Testing Performed By: #### C BC, ADIFF, ANEU, BMP #### [address] [address] #### GFR #### [address] [address] WBC 6.40 10 3/mcL Normal 4.60-10.80 Count includes the [facility]) Comment on above: Order Comment: Pre-A dmission Testing Performed By: #### C BC, ADIFF, ANEU, BMP #### [place] [address] [place], [place] [address] #### GFR #### [address] [address] XR CHEST 2 VIEWSon 1 XR CHEST [...] Date: 01/15/2021 1:00:26 PM Ordering Provider:Uma Kang [facility] [place] US EXTREMITY NON-VASCULAR JOVANI Rachel 11-27-2020 US [...] the infraspinatus tendon is seen. There is [id number] fluid in the subacromial and subdeltoid bursa. [...] Date: 11/27/2020 11:54:04 AM Ordering Provider:Justin Kang [facility] [place] Therapy Communicationon 03- Erythrocyte distribution width (RBC) [...] IN LEFT HIP. COMPARISON: None. ACCESSION NUMBER(S): [id number] ORDERING CLINICIAN: ARGENIS SHARP FINDINGS: Bony structures: [...] Electronically signed by: PARESH FLETCHER MD Normal [facility] Otheron 12-16-2019 Interpreted by: PARESH FLETCHER12/16/19 13:32MRN: [id number] Name: BRIGETTE HOLGUIN STUDY:LeftHIP, UNILATERAL W/PELVIS WHEN [...] by: PARESH FLETCHER 12/16/19 13:32 Normal [facility] Work Phone: Comment on above: Ordering Provider: Virgie SHARP [id number] ECG B/O W INTERP (MED OFFICE ) [facility] Vital Signs Date Time Vital Sign Value Performing Clinician Faci lity 05-10-2025 08:33-0400 Body height 175.[address] Paresh Carranza MD Work Phone: [facility] 05-10-2025 08:33-0400 Body mass index (BMI) [Ratio] 24.2 kg/m2 Dr. Paresh Carranza MD Work Phone: [facility] 05-10-2025 08:33-0400 Body weight 74.[address] Paresh Carranza MD Work Phone: [facility] 05-10-2025 08:33-0400 Diastolic blood pressure 83 mm[Hg] Dr. Paresh Carranza MD Work Phone: 9(641)729-687750 [place] [address] 05-10-2025 08:33-0400 Heart rate 75 /min Dr. Paresh Carranza MD Work Phone: 2(491)438-129550 [place] [address] 05-10-2025 08:33-0400 Respiratory rate 18 /min Dr. Paresh Carranza MD Work Phone: 1(459)557-735723 [place] [address] 05-10-2025 08:33-0400 SaO2% (BldA) [Mass fraction] 98 % Dr. Paresh Carranza MD Work Phone: 4(245)340-993823 [place] [address] 05-10-2025 08:33-0400 Systolic blood pressure 123 mm[Hg] Dr. Paresh Carranza MD Work Phone: 0(627)208-559623 [place] [address] 04-15-2025 15:10-0400 Diastolic blood pressure 70 mm[Hg] Dr. Paresh Carranza MD Work Phone: 0(508)159-455823 [place] [address] 04-15-2025 15:10-0400 Heart rate 115 /min Dr. Paresh Carranza MD Work Phone: 5(499)063-365623 [place] [address] 04-15-2025 15:10-0400 Respiratory rate 16 /min Dr. Paresh Carranza MD Work Phone: 1(238)971-472623 [place] [address] 04-15-2025 15:10-0400 SaO2% (BldA) [Mass fraction] 97 % Dr. Paresh Carranza MD Work Phone: 1(878)661-754323 [place] [address] 04-15-2025 15:10-0400 Systolic blood pressure 113 mm[Hg] Dr. Paresh Carranza MD Work Phone: 1(471)235-556650 [place] [address] 01-05-2025 09:23-0400 Body height 175.[address] Paresh Carranza MD Work Phone: 3(071)823-304423 [place] [address] 01-05-2025 09:23-0400 Body mass index (BMI) [Ratio] 25.2 kg/m2 Dr. Paresh Carranza MD Work Phone: 7(694)431-796523 [place] [address] 01-05-2025 09:23-0400 Body weight 77.[address] Paresh Carranza MD Work Phone: 7(419)431-459323 [place] [address] 01-05-2025 09:23-0400 Diastolic blood pressure 71 mm[Hg] Dr. Paresh Carranza MD Work Phone: [facility] 01-05-2025 09:23-0400 Heart rate 59 /min Dr. Paresh Carranza MD Work Phone: 1(092)129-327550 [place] [address] 01-05-2025 09:23-0400 Respiratory rate 14 /min Dr. Paresh Carranza MD Work Phone: 6(513)733-480450 [place] [address] 01-05-2025 09:23-0400 Systolic blood pressure 152 mm[Hg] Dr. Paresh Carranza MD Work Phone: 3(714)797-089123 [place] [address] 12-31-2024 09:32-0400 Body height 175.[address] Paresh Carranza MD Work Phone: 6(652)967-106923 [place] [address] 12-31-2024 09:32-0400 Body mass index (BMI) [Ratio] 25.7 kg/m2 Dr. Paresh Carranza MD Work Phone: 2(419)008-638423 [place] [address] 12-31-2024 09:32-0400 Body weight 79.[address] Paresh Carranza MD Work Phone: 7(081)670-614723 [place] [address] 11-08-2024 10:42-0400 Body height 175.[address] Paresh Carranza MD Work Phone: 3(403)707-462823 [place] [address] 11-08-2024 10:40-0400 Body mass index (BMI) [Ratio] 25.9 kg/m2 Dr. Paresh Carranza MD Work Phone: 2(485)573-112250 [place] [address] 11-08-2024 10:40-0400 Body weight 79.[address] Paresh Carranza MD Work Phone: 3(907)767-706350 [place] [address] 11-08-2024 10:40-0400 Diastolic blood pressure 82 mm[Hg] Dr. Paresh Carranza MD Work Phone: 6(632)629-116850 [place] [address] 11-08-2024 10:40-0400 Heart rate 70 /min Dr. Paresh Carranza MD Work Phone: 4(770)510-702850 [place] [address] 11-08-2024 10:40-0400 Respiratory rate 18 /min Dr. Paresh Carranza MD Work Phone: [facility] 11-08-2024 10:40-0400 SaO2% (BldA) [Mass fraction] 99 % Dr. Paresh Carranza MD Work Phone: [facility] 11-08-2024 10:40-0400 Systolic blood pressure 125 mm[Hg] Dr. Paresh Carranza MD Work Phone: [facility] 10-28-2023 15:47-0400 Body height 175.[address] Paresh Carranza Work Phone: [facility] 10-28-2023 15:47-0400 Body mass index (BMI) [Ratio] 25.5 kg/m2 Dr. Paresh Carranza Work Phone: [facility] 10-28-2023 15:47-0400 Body weight 78.[address] Paresh Carranza Work Phone: [facility] 10-28-2023 15:47-0400 Diastolic blood pressure 83 mm[Hg] Dr. Paresh Carranza Work Phone: [facility] 10-28-2023 15:47-0400 Heart rate 60 /min Dr. Paresh Carranza Work Phone: [facility] 10-28-2023 15:47-0400 Respiratory rate 16 /min Dr. Paresh Carranza Work Phone: [facility] 10-28-2023 15:47-0400 Systolic blood pressure 153 mm[Hg] Dr. Paresh Carranza Work Phone: [facility] 06-23-2023 17:17-0500 Body temperature 97.3 [degF] Dr. Paresh Carranza Work Phone: [facility] 06-23-2023 17:17-0500 Diastolic blood pressure 77 mm[Hg] Dr. Paresh Carranza Work Phone: [facility] 06-23-2023 17:17-0500 Heart rate 75 /min Dr. Paresh Carranza Work Phone: [facility] 06-23-2023 17:17-0500 Respiratory rate 16 /min Dr. Paresh Carranza Work Phone: [facility] 06-23-2023 17:17-0500 SaO2% (BldA) [Mass fraction] 97 % Dr. Paresh Carranza Work Phone: [facility] 06-23-2023 17:17-0500 Systolic blood pressure 159 mm[Hg] Dr. Paresh Carranza Work Phone: [facility] 06-23-2023 13:31-0500 Body height 175.[address] Paresh Carranza Work Phone: [facility] 06-23-2023 13:31-0500 Body mass index (BMI) [Ratio] 22.8 kg/m2 Dr. Paresh Carranza Work Phone: [facility] 06-23-2023 13:31-0500 Body weight [address] Paresh Carranza Work Phone: [facility] 04-23-2023 10:51-0400 Body height 175.3 cm Viktoriya Marcial MD Work Phone: [facility] 04-23-2023 10:51-0400 Body weight 70.31 kg Viktoriya Marcial MD Work Phone: [facility] 04-23-2023 10:51-0400 Diastolic blood pressure 70 mm[Hg] Viktoriya Marcial MD Work Phone: [facility] 04-23-2023 10:51-0400 Heart rate 60 /min Viktoriya Marcial MD Work Phone: [facility] 04-23-2023 10:51-0400 SaO2% (BldA) [Mass fraction] 96 % Viktoriya Marcial MD Work Phone: [facility] 04-23-2023 10:51-0400 Systolic blood pressure 124 mm[Hg] Viktoriya Marcial MD Work Phone: [facility] 03-31-2023 15:59-0400 Body weight 70.[address] Paresh Carranza Work Phone: [facility] 03-31-2023 15:59-0400 Diastolic blood pressure 83 mm[Hg] Dr. Paresh Carranza Work Phone: [facility] 03-31-2023 15:59-0400 Heart rate 59 /min Dr. Paresh Carranza Work Phone: [facility] 03-31-2023 15:59-0400 Respiratory rate 16 /min Dr. Paresh Carranza Work Phone: [facility] 03-31-2023 15:59-0400 Systolic blood pressure 142 mm[Hg] Dr. Paresh Carranza Work Phone: [facility] 03-31-2023 15:57-0400 Body height 175.[address] Paresh Carranza Work Phone: [facility] 09-09-2022 16:04-0500 Body height 175.[address] Paresh Carranza Work Phone: [facility] 09-09-2022 15:44-0500 Body mass index (BMI) [Ratio] 24.3 kg/m2 Dr. Paresh Carranza Work Phone: [facility] 09-09-2022 15:44-0500 Body weight 74.[address] Paresh Carranza Work Phone: [facility] 09-09-2022 15:44-0500 Diastolic blood pressure 85 mm[Hg] Dr. Paresh Carranza Work Phone: [facility] 09-09-2022 15:44-0500 Heart rate 60 /min Dr. Paresh Carranza Work Phone: [facility] 09-09-2022 15:44-0500 Respiratory rate 18 /min Dr. Paresh Carranza Work Phone: [facility] 09-09-2022 15:44-0500 SaO2% (BldA) [Mass fraction] 99 % Dr. Paresh Carranza Work Phone: [facility] 09-09-2022 15:44-0500 Systolic blood pressure 154 mm[Hg] Dr. Paresh Carranza Work Phone: [facility] 06-03-2022 15:41-0400 Body mass index (BMI) [Ratio] 23.6 kg/m2 Dr. Paresh Carranza Work Phone: [facility] 06-03-2022 15:41-0400 Body weight 72.[address] Paresh Carranza Work Phone: [facility] 06-03-2022 15:41-0400 Diastolic blood pressure 78 mm[Hg] Dr. Paresh Carranza Work Phone: [facility] 06-03-2022 15:41-0400 Heart rate 60 /min Dr. Paresh Carranza Work Phone: [facility] 06-03-2022 15:41-0400 Respiratory rate 14 /min Dr. Paresh Carranza Work Phone: [facility] 06-03-2022 15:41-0400 Systolic blood pressure 159 mm[Hg] Dr. Paresh Carranza Work Phone: [facility] 01-09-2022 08:34-0400 Body height 175.[address] Reshma Arreola Work Phone: [facility] Work Phone: 01-09-2022 08:34-0400 Body mass index (BMI) [Ratio] 23.7 kg/m2 Dr. Reshma Arreola Work Phone: [facility] Work Phone: 01-09-2022 08:34-0400 Body temperature 98.7 [degF] Dr. Reshma Arreola Work Phone: [facility] Work Phone: 01-09-2022 08:34-0400 Body weight 72.[address] Reshma Arreola Work Phone: [facility] Work Phone: 01-09-2022 08:34-0400 Diastolic blood pressure 80 mm[Hg] Dr. Reshma Arreola Work Phone: [facility] Work Phone: 01-09-2022 08:34-0400 Heart rate 60 /min Dr. Reshma Arreola Work Phone: [facility] Work Phone: 01-09-2022 08:34-0400 Respiratory rate 16 /min Dr. Reshma Arreola Work Phone: [facility] Work Phone: 01-09-2022 08:34-0400 SaO2% (BldA) [Mass fraction] 99 % Dr. Reshma Arreola Work Phone: [facility] Work Phone: 01-09-2022 08:34-0400 Systolic blood pressure 138 mm[Hg] Dr. Reshma Arreola Work Phone: [facility] Work Phone: 01-02-2022 10:05-0400 Body mass index (BMI) [Ratio] 24.7 kg/m2 Dr. Reshma Arreola Work Phone: [facility] Work Phone: 01-02-2022 10:05-0400 Body temperature 97.8 [degF] Dr. Reshma Arreola Work Phone: [facility] Work Phone: 01-02-2022 10:05-0400 Body weight 76.[address] Reshma Arreola Work Phone: [facility] Work Phone: 01-02-2022 10:05-0400 Diastolic blood pressure 82 mm[Hg] Dr. Reshma Arreola Work Phone: [facility] Work Phone: 01-02-2022 10:05-0400 Heart rate 61 /min Dr. Reshma Arreola Work Phone: [facility] Work Phone: 01-02-2022 10:05-0400 Respiratory rate 14 /min Dr. Reshma Arreola Work Phone: [facility] Work Phone: 01-02-2022 10:05-0400 SaO2% (BldA) [Mass fraction] 99 % Dr. Reshma Arreola Work Phone: [facility] Work Phone: 01-02-2022 10:05-0400 Systolic blood pressure 138 mm[Hg] Dr. Reshma Arreola Work Phone: [facility] Work Phone: 01-02-2022 10:05-0400 Body height 175.[address] Reshma Arreola Work Phone: [facility] Work Phone: 01-02-2022 10:05-0400 Body mass index (BMI) [Ratio] 24.7 kg/m2 Dr. Reshma Arreola Work Phone: [facility] Work Phone: 01-02-2022 10:05-0400 Body temperature 97.8 [degF] Dr. Reshma Arreola Work Phone: [facility] Work Phone: 01-02-2022 10:05-0400 Body weight 76.[address] Reshma Arreola Work Phone: [facility] Work Phone: 01-02-2022 10:05-0400 Diastolic blood pressure 82 mm[Hg] Dr. Reshma Arreola Work Phone: [facility] Work Phone: 01-02-2022 10:05-0400 Heart rate 61 /min Dr. Reshma Arreola Work Phone: [facility] Work Phone: 01-02-2022 10:05-0400 Respiratory rate 14 /min Dr. Reshma Arreola Work Phone: [facility] Work Phone: 01-02-2022 10:05-0400 SaO2% (BldA) [Mass fraction] 99 % Dr. Reshma Arreola Work Phone: [facility] Work Phone: 01-02-2022 10:05-0400 Systolic blood pressure 138 mm[Hg] Dr. Reshma Arreola Work Phone: [facility] Work Phone: 11-27-2021 21:02-0400 Heart rate 78 /min Dr. Reshma Arreola Work Phone: [facility] Work Phone: 11-27-2021 21:02-0400 Respiratory rate 17 /min Dr. Reshma Arreola Work Phone: [facility] Work Phone: 11-27-2021 21:02-0400 SaO2% (BldA) [Mass fraction] 99 % Dr. Reshma Arreola Work Phone: [facility] Work Phone: 11-27-2021 20:23-0400 Body height 175.[address] Reshma Arreola Work Phone: [facility] Work Phone: 11-27-2021 20:23-0400 Body mass index (BMI) [Ratio] 24.3 kg/m2 Dr. Reshma Arreola Work Phone: [facility] Work Phone: 11-27-2021 20:23-0400 Body temperature 96.3 [degF] Dr. Reshma Arreola Work Phone: [facility] Work Phone: 11-27-2021 20:23-0400 Body weight 74.[address] Reshma Arreola Work Phone: [facility] Work Phone: 11-27-2021 20:23-0400 Diastolic blood pressure 89 mm[Hg] Dr. Reshma Arreola Work Phone: [facility] Work Phone: 11-27-2021 20:23-0400 Systolic blood pressure 166 mm[Hg] Dr. Reshma Arreola Work Phone: [facility] Work Phone: 10-11-2021 13:57-0500 Body mass index (BMI) [Ratio] 25.2 kg/m2 Dr. Reshma Arreola Work Phone: [facility] Work Phone: 10-11-2021 13:57-0500 Body weight 77.[address] Reshma Arreola Work Phone: [facility] Work Phone: 10-11-2021 13:57-0500 Diastolic blood pressure 76 mm[Hg] Dr. Reshma Arreola Work Phone: [facility] Work Phone: 10-11-2021 13:57-0500 Heart rate 80 /min Dr. Reshma Arreola Work Phone: [facility] Work Phone: 10-11-2021 13:57-0500 Respiratory rate 18 /min Dr. Reshma Arreola Work Phone: [facility] Work Phone: 10-11-2021 13:57-0500 SaO2% (BldA) [Mass fraction] 100 % Dr. Reshma Arreola Work Phone: [facility] Work Phone: 10-11-2021 13:57-0500 Systolic blood pressure 138 mm[Hg] Dr. Reshma Arreola Work Phone: [facility] Work Phone: 10-11-2021 12:57-0500 Body height 175.[address] Reshma Arreola Work Phone: [facility] Work Phone: 10-11-2021 12:57-0500 Body mass index (BMI) [Ratio] 25.2 kg/m2 Dr. Reshma Arreola Work Phone: [facility] Work Phone: 10-11-2021 12:57-0500 Body weight 77.[address] Reshma Arreola Work Phone: [facility] Work Phone: 10-11-2021 12:57-0500 Diastolic blood pressure 76 mm[Hg] Dr. Reshma Arreola Work Phone: [facility] Work Phone: 10-11-2021 12:57-0500 Heart rate 80 /min Dr. Reshma Arreola Work Phone: [facility] Work Phone: 10-11-2021 12:57-0500 Respiratory rate 18 /min Dr. Reshma Arreola Work Phone: [facility] Work Phone: 10-11-2021 12:57-0500 SaO2% (BldA) [Mass fraction] 100 % Dr. Reshma Arreola Work Phone: [facility] Work Phone: 10-11-2021 12:57-0500 Systolic blood pressure 138 mm[Hg] Dr. Reshma Arreola Work Phone: [facility] Work Phone: 09-19-2021 08:42-0500 Body mass index (BMI) [Ratio] 25.1 kg/m2 Dr. Reshma Arreola Work Phone: [facility] Work Phone: 09-19-2021 08:42-0500 Body temperature 98.6 [degF] Dr. Reshma Arreola Work Phone: [facility] Work Phone: 09-19-2021 08:42-0500 Body weight 77.[address] Reshma Arreola Work Phone: [facility] Work Phone: 09-19-2021 08:42-0500 Diastolic blood pressure 73 mm[Hg] Dr. Reshma Arreola Work Phone: [facility] Work Phone: 09-19-2021 08:42-0500 Heart rate 61 /min Dr. Reshma Arreola Work Phone: [facility] Work Phone: 09-19-2021 08:42-0500 Respiratory rate 16 /min Dr. Reshma Arreola Work Phone: [facility] Work Phone: 09-19-2021 08:42-0500 SaO2% (BldA) [Mass fraction] 99 % Dr. Reshma Arreola Work Phone: [facility] Work Phone: 09-19-2021 08:42-0500 Systolic blood pressure 124 mm[Hg] Dr. eRshma Arreola Work Phone: [facility] Work Phone: 09-03-2021 07:58-0500 Body mass index (BMI) [Ratio] 25.4 kg/m2 Dr. Reshma Arreola Work Phone: [facility] Work Phone: 09-03-2021 07:58-0500 Body temperature 97.4 [degF] Dr. Reshma Arreola Work Phone: [facility] Work Phone: 09-03-2021 07:58-0500 Body weight 78.[address] Reshma Arreola Work Phone: [facility] Work Phone: 09-03-2021 07:58-0500 Diastolic blood pressure 70 mm[Hg] Dr. Reshma Arreola Work Phone: [facility] Work Phone: 09-03-2021 07:58-0500 Heart rate 71 /min Dr. Reshma Arreola Work Phone: [facility] Work Phone: 09-03-2021 07:58-0500 Respiratory rate 16 /min Dr. Reshma Arreola Work Phone: [facility] Work Phone: 09-03-2021 07:58-0500 SaO2% (BldA) [Mass fraction] 99 % Dr. Reshma Arreola Work Phone: [facility] Work Phone: 09-03-2021 07:58-0500 Systolic blood pressure 124 mm[Hg] Dr. Reshma Arreola Work Phone: [facility] Work Phone: 08-15-2021 13:39-0500 Body temperature 96.7 [degF] Dr. Reshma Arreola Work Phone: [facility] Work Phone: 08-15-2021 13:39-0500 Body weight 81.[address] Reshma Arreola Work Phone: [facility] Work Phone: 08-15-2021 13:39-0500 Diastolic blood pressure 78 mm[Hg] Dr. Reshma Arreola Work Phone: [facility] Work Phone: 08-15-2021 13:39-0500 Heart rate 69 /min Dr. Reshma Arreola Work Phone: [facility] Work Phone: 08-15-2021 13:39-0500 Respiratory rate 16 /min Dr. Reshma Arreola Work Phone: [facility] Work Phone: 08-15-2021 13:39-0500 SaO2% (BldA) [Mass fraction] 99 % Dr. Reshma Arreola Work Phone: [facility] Work Phone: 08-15-2021 13:39-0500 Systolic blood pressure 150 mm[Hg] Dr. Reshma Arreola Work Phone: [facility] Work Phone: Encounters Encounter Date Encounter Type Care Provider Facility Start: 07-08-2025 ambulatory Paresh Tere Facility:[facility] Start: 07-05-20[facility] Start: 06-13-2025 Encounter for other preprocedural examination Paresh Carranza [facility] Start: 06-13-2025 [facility] Start: 06-01-2025 ambulatory PARESH CARRANZA Facility :[facility] Start: 05-24-2025 End: 05-24-2025 [facility] Start: 05-19-2025 End: 05-19-2025 ambulatory Jairon Strickland Facility:[facility] Start: 05-10-[address] Paresh Carranza MD Work Phone: [facility] Start: 05-10-2025 Patient encounter procedure Jairo LITTLE -Laboratory Work Phone: Start: 05-10-2025 End: 05-10-2025 Patient encounter procedure Jairo LITTLE -[facility] Work Phone: Start: 05-10-2025 End: 05-10-2025 Patient encounter status Jairo HUSTONC [facility] Start: 05-10-2025 End: 05-10-[address] Paresh Carranza MD Work Phone: -[facility] Start: 05-10-2025 End: 05-10-2025 ambulatory Jairo Grande Facility:[facility] Start: 04-20-2025 End: 04-20-[address] Deangelo Rojas DO -[facility] Work Phone: Start: 04-20-2025 End: 04-20-[address] Paresh Carranza MD Work Phone: [facility] Start: 04-15-2025 End: 04-15-[address] Paresh Carranza MD Work Phone: -[facility] Start: 04-15-2025 End: 04-15-[address] Deangelo Rojas DO [facility] Work Phone: Start: 04-15-2025 End: 04-15-2025 ambulatory Paresh Carranza Facility:[facility] Start: 04-11-2025 End: 04-11-[address] Deangelo Rojas DO -[facility] Work Phone: Start: 04-11-2025 End: 04-11-[address] Paresh Carranza MD Work Phone: [facility] Start: 02-02-2025 End: 02-02-[address] Paresh Carranza MD Work Phone: -Physical Therapy Start: 02-02-2025 End: 02-02-[address] Deangelo Rojas DO -Physical Therapy Work Phone: Start: 01-05-2025 End: 01-05-2025 Patient encounter procedure Jairo Grande [employer]TLE FINAL INSPECTOR-C -[facility] Work Phone: Start: 01-05-2025 End: 01-05-[address] Paresh Carranza MD Work Phone: [facility] Work Phone: Start: 12-31-2024 End: 12-31-[address] Chevy Rooney MD -[facility] Start: 12-31-2024 End: 12-31-[address] Paresh Carranza MD Work Phone: [facility] Work Phone: Start: 11-16-2024 ambulatory Chevy Rooney Facility:[facility] Start: 11-16-2024 Non-patient / Non-visit Dr. Stephanie AMBROSIO -[facility] Start: 11-16-2024 End: 11-16-[address] Paresh Carranza MD Work Phone: [facility] Work Phone: Start: 11-16-2024 End: 11-16-2024 Patient encounter procedure Jairo Grande SHUTTLE FINAL INSPECTOR-C -Cardiovascular Services Work Phone: Start: 11-16-2024 End: 11-16-2024 ambulatory Jairo Serrato Christiane Facility:[facility] Start: 11-08-2024 End: 11-08-2024 Patient encounter procedure Jairo Grande SHUTTLE FINAL INSPECTOR-C -Laboratory Work Phone: Start: 11-08-2024 End: 11-08-2024 ambulatory Chevy Rooney Facility:[facility] Start: 11-08-2024 End: 11-08-[address] Paresh Carranza MD Work Phone: [facility] Work Phone: Start: 11-08-2024 End: 11-08-2024 Patient encounter procedure Argenis Mcgee [facility] Work Phone: Start: 11-08-2024 End: 11-08-2024 ambulatory Jairo Grande Facility:[facility] Start: 10-21-2024 End: 10-21-[address] Paresh Carranza MD Work Phone: [facility] Work Phone: Start: 10-21-2024 End: 10-21-[address] Paresh Carranza MD -Outpatient Bone Densitometry Work Phone: Start: 10-21-2024 End: 10-21-2024 ambulatory Paresh Carranza Facility:[facility] Start: 11-25-2023 End: 11-25-2023 Transcribe Orders Gladys Han Work Phone: [facility] Comment on above: Dyspnea, unspecified type Start: 11-20-2023 End: 11-20-[address] Paresh Carranza Work Phone: [facility] Work Phone: Start: 11-20-2023 End: 11-20-[address] Paresh Carranza Work Phone: [facility]-Laboratory Work Phone: Start: 10-28-2023 End: 10-28-[address] Paresh Carranza Work Phone: [facility] Work Phone: Start: 09-15-2023 End: 09-15-[address] Paresh Carranza Work Phone: [facility] Work Phone: Start: 09-15-2023 End: 09-15-[address] Paresh Carranza Work Phone: [facility]-Laboratory Work Phone: Start: 08-07-2023 End: 08-07-[address] Paresh Carranza Work Phone: [facility] Work Phone: Start: 07-09-2023 End: 07-09-[address] Paresh Carranza Work Phone: [facility] Work Phone: Start: 06-23-2023 End: 06-23-2023 Admission to same day surgery center Dr. Paresh Carranza Work Phone: [facility]-S[facility] Day [facility] Start: 06-23-2023 End: 06-23-[address] Paresh Carranza Work Phone: [facility] Work Phone: Start: 06-20-2023 Follow-up encounter Viktoriya Marcial MD Work Phone: [facility] Start: 06-20-2023 Patient encounter procedure Viktoriya Marcial MD Work Phone: [facility] Start: 06-19-2023 End: 06-20-2023 Evaluation and management of inpatient PARESH CARRANZA Facility:[facility] Start: 06-16-2023 End: 06-16-2023 ambulatory PARESH CARRANZA Facility:[facility] Start: 06-12-2023 End: 06-12-2023 Non-patient / Non-visit Dr. Paresh Carranza Work Phone: [facility] Work Phone: Start: 05-19-2023 End: 05-19-[address] Paresh Carranza Work Phone: [facility] Work Phone: Start: 05-19-2023 End: 05-19-[address] Paresh Carranza Work Phone: [facility] Start: 04-23-2023 End: 04-23-2023 ambulatory VIKTORIYA MARCIAL Facility:[facility] Start: 04-23-2023 End: 04-23-2023 Patient encounter procedure Viktoriya Marcial MD Work Phone: [facility] [place] Comment on above: Pacemaker lead malfu nction, initial encounter (Primary Dx); Presence of cardiac pacemaker; Sinus node dysfunction (HCC); Paroxysmal atrial fibrillation (HCC) Start: 03-31-2023 End: 03-31-[address] Paresh Carranza Work Phone: [facility] Work Phone: Start: 03-31-2023 End: 03-31-[address] Paresh Carranza Work Phone: [facility]-Radiology, [facility] Work Phone: Start: 03-31-2023 End: 03-31-[address] Paresh Carranza Work Phone: [facility] Work Phone: Start: 03-12-2023 End: 03-12-[address] Paresh Carranza Work Phone: [facility] Work Phone: Start: 03-12-2023 End: 03-12-[address] Paresh Carranza Work Phone: [facility] Start: 03-05-2023 End: 03-05-[address] Paresh Carranza Work Phone: [facility] Work Phone: Start: 03-05-2023 End: 03-05-[address] Paresh Carranza Work Phone: [facility]-Cat Scan, [facility] Work Phone: Start: 12-26-2022 End: 12-26-[address] Paresh Carranza Work Phone: [facility] Work Phone: Start: 12-26-2022 End: 12-26-[address] Paresh Carranza Work Phone: [facility]-Radiology, [facility] Work Phone: Start: 12-16-2022 End: 12-16-[address] Paresh Carranza Work Phone: [facility] Work Phone: Start: 11-18-2022 End: 11-18-[address] Paresh Carranza Work Phone: [facility] Work Phone: Start: 11-18-2022 End: 11-18-[address] Paresh Carranza Work Phone: [facility] Start: 10-03-2022 End: 10-03-[address] Paresh Carranza Work Phone: [facility] Work Phone: Start: 10-03-2022 End: 10-03-[address] Paresh Carranza Work Phone: [facility] Start: 09-09-2022 End: 09-09-[address] Paresh Carranza Work Phone: [facility] Work Phone: Start: 09-09-2022 End: 09-09-[address] Paresh Carranza Work Phone: [facility] Start: 09-09-2022 End: 09-09-[address] Paresh Carranza Work Phone: [facility] Start: 06-03-2022 End: 06-03-[address] Paresh Carranza Work Phone: [facility] Start: 05-20-2022 End: 05-20-2022 ambulatory [facility] Work Phone: Start: 05-20-2022 End: 05-20-2022 Patient encounter procedure [facility] Start: 01-31-2022 End: 01-31-[address] Reshma Arreola Work Phone: [facility] Start: 01-09-2022 End: 01-09-[address] Reshma Arreola Work Phone: [facility], Specimen Start: 01-09-2022 End: 01-09-[address] Reshma Arreola Work Phone: [facility] Start: 01-02-2022 End: 01-02-[address] Reshma Arreola Work Phone: [facility]-Laboratory, [facility] Start: 01-02-2022 End: 01-02-[address] Reshma Arreola Work Phone: [facility] Start: 12-07-2021 End: 12-07-[address] Reshma Arreola Work Phone: [facility] Start: 11-27-2021 End: 11-27-2021 Emergency department patient visit Dr. Reshma Arreola Work Phone: [facility]-Emergency Department Start: 11-22-2021 End: 11-22-[address] Reshma Arreola Work Phone: [facility] Start: 11-22-2021 End: 11-22-[address] [facility] Start: 11-08-2021 Non-patient / Non-visit Dr. Kaya Arreola Work Phone: [facility] Start: 11-08-2021 End: 11-08-[address] Reshma Arreola Work Phone: [facility]-Cardiovascul [facility] Services Start: 10-30-2021 Non-patient / Non-visit Dr. Kaya Arreola Work Phone: [facility] Start: 10-29-2021 End: 10-29-[address] Reshma Arreola Work Phone: [facility]-Cardiov[facility] Start: 10-11-2021 End: 10-11-[address] [facility] Start: 10-11-2021 End: 10-11-[address] Reshma Arreola Work Phone: [facility] Start: 10-08-2021 End: 10-08-[address] Reshma Arreola Work Phone: [facility] Internal Medicine Start: 09-19-2021 End: 09-19-[address] Res[facility] Start: 09-10-2021 End: 09-10-[address] Reshma Arreola Work Phone: [facility] Start: 09-03-2021 End: 09-03-[address] Reshma Arreola Work Phone: [facility] Radiology Start: 09-03-2021 End: 09-03-[address] Reshma Arreola Work Phone: [facility] Start: 08-15-2021 Non-patient / Non-visit Dr. Kaya Arreola Work Phone: [facility] Start: 08-15-2021 End: 08-15-[address] Reshma Arreola Work Phone: [facility]-Cardiov[facility] Services Start: 08-10-2021 End: 08-10-[address] Reshma Arreola Work Phone: [facility] Start: 08-31-2020 Patient encounter procedure HARINDER ROSENBAUM Facility:[facility] Start: 08-16-2020 Patient encounter procedure HARINDER ROSENBAUM Facility:[facility] Start: 06-16-2020 Patient encounter procedure HARINDER CHOWDHURYCHETANOrin Facility:[facility] Start: 05-22-2020 Patient encounter procedure [facility] Work Phone: Start: 05-19-2020 Patient encounter procedure [facility] Work Phone: Start: 05-17-2020 Patient encounter procedure [facility] [place] Work Phone: Start: 05-16-2020 Patient encounter procedure HARINDER CHOWDHURYCHETANOrin Facility:[facility] Start: 05-15-2020 Patient encounter procedure [facility] [place] Work Phone: Start: 05-12-2020 Patient encounter procedure [facility] [place] Work Phone: Start: 05-10-2020 Patient encounter procedure [facility] [place] Work Phone: Start: 05-08-2020 Patient encounter procedure [facility] [place] Work Phone: Start: 05-04-2020 Patient encounter procedure [facility] [place] Work Phone: Start: 04-03-2020 Patient encounter procedure HARINDER CHOWDHURYCHETANOrin Facility:[facility] Start: 03-01-2020 Patient encounter procedure HARINDER CHOWDHURYCHETANOrin Facility:[facility] Start: 02-29-2020 Patient encounter procedure [facility] [place] Work Phone: Start: 02-25-2020 Patient encounter procedure [facility]ys [facility] Work Phone: Start: 02-23-2020 Patient encounter procedure Gladys [facility] Work Phone: Start: 02-17-2020 Patient encounter procedure Gladys [facility] Work Phone: Start: 02-15-2020 Patient encounter procedure Gladys [facility] Work Phone: Start: 02-10-2020 Patient encounter procedure Gladys [facility] Work Phone: Start: 02-08-2020 Patient encounter procedure Gladys [facility] Work Phone: Start: 02-03-2020 Patient encounter procedure Gladys [facility] Work Phone: Start: 02-02-2020 Patient encounter procedure HARINDER ROSENBAUM Facility:[facility] Start: 02-01-2020 Patient encounter procedure Gladys Quach [facility] Work Phone: Start: 01-25-2020 Patient encounter procedure Fartun Mendoza [facility] Work Phone: Start: 01-20-2020 Patient encounter procedure Fartun Mendoza [facility] Work Phone: Start: 01-17-2020 Patient encounter procedure Fartun Mendoza [facility] Work Phone: Start: 01-14-2020 Patient encounter procedure Fartun Mendoza [facility] Work Phone: Start: 01-12-2020 Patient encounter procedure Fartun Mendoza [facility] Work Phone: Start: 01-10-2020 Patient encounter procedure Fartun Mendoza [facility] Work Phone: Start: 01-07-2020 Patient encounter procedure Fartun Mendoza [facility] Work Phone: Start: 01-06-2020 Patient encounter procedure Fartun Mendoza [facility] Work Phone: Start: 01-03-2020 Patient encounter procedure Fartun Mendoza [facility] Work Phone: Start: 12-31-2019 Patient encounter procedure Yaa Rosales [facility] Work Phone: Start: 12-30-2019 Patient encounter procedure Yaa Rosales [facility] Work Phone: Procedures Date Procedure Procedure Detail [...] Comment: Speci men Type: BLOOD SPECIMENOrdering Facility: [facility] Address: [address] [place] [address] Performed By: #### T SCR ####[facility] B[facility] BANKCLIA [id number] [place] [address] [place] Start: 04-23-2023 Ecg [...] DTaP,Tdap,Td Vaccine (2 - Td or Tdap) [facility] Start: 06-20-2026 Diabetes Screening Diabetes Screenin g [facility] Start: 12-26-2025 Lipid 1996 panel - Serum or Plasma Lipid Screening [facility] Start: 12-26-2025 Lipid panel Cholesterol [facility] Start: 05-24-2025 MRI of lower extremity Extremi ty Lower without Contra [facility] Start: 05-24-2025 Patient encounter procedure Registered Clinical -Cat Scan [facility] Work Phone: Start: 05-19-2025 Patient encounter procedure Registered Clinical -Laboratory [place] Work Phone: Start: 05-10-2025 Hepatic function panel [facility] Start: 05-10-2025 Thyroid stimulating hormone measurement [facility] Start: 12-31-2024 Patient referral [facility] Work Phone: Start: 12-31-2024 Plain x-ray of pelvi s and lower extremity HIP, UNI W/ Pelvis 2-3 Views [facility] Start: 12-31-2024 X-ray of lumbar spin e, two or three views Lumbar Spine 2 or 3 Views [facility] Start: 12-31-2024 XR Lumbar spine 2 or 3 Views [facility] Start: 12-31-2024 XR Pelvis and Hip Views [facility] Start: 04-23-2024 BP Controlled (<130/80) BP Controlled (<130/80) [facility] Start: 12-27-2023 Diabetes Screening Diabetes Screenin g [facility] Start: 06-23-2023 Patient discharge [facility] Start: 06-23-2023 Ambulation without limitation [facility] Start: 06-23-2023 Elevation of head of bed [facility] Start: 06-23-2023 Medical regimen orde rs management [facility] Start: 06-23-2023 Procedure discontinued [facility] Start: 06-23-2023 Taking patient vital signs [facility] Start: 06-23-2023 Vital signs measurements [facility] Start: 06-23-2023 Anesthesia nose & accessory sinuses nos ANESTH NOSE/SINUS SURGERY [facility] Start: 06-23-2023 Septoplasty/submucou s resecj w/wo cartilage grf REPAIR OF NASAL SEPTUM [facility] Start: 06-23-2023 Submucous rescj inferior turbinate prtl/compl RESECT INFERIOR TURBINATE [facility] Start: 06-23-2023 Medication education [facility] Start: 04-04-2023 Influenza vaccination Influenza Vacc ine (#1) [facility] Start: 04-01-2023 Patient referral [facility] Work Phone: Start: 08-04-2022 Advance Directive Discussion Advance Directive Discussion [facility] Start: 08-04-2022 Depression Assessment Depression Ass essment [facility] Start: 12-26-2021 Hepatitis B surface antibody level LDL Cholesterol [facility] Start: 09-15-2019 Colonoscopy Colonoscopy [facility] Start: 09-15-2019 Colorectal Cancer Screening Colorectal Cancer Screening [facility] Start: 2016 Pneumococcal vaccination Pneumococcal Vaccine(s) (65+ yrs) (2 of 2 - PPSV23 or PCV20) [facility] Start: 11-20-2015 Pneumococcal Vaccine : 65+ (2 - PPSV23 or PCV20) Pneumococcal Vaccine: 65+ (2 - PPSV23 or PCV20) [facility] Start: 2015 Pneumococcal vaccination Pneumococcal Vaccine(s) (65+ yrs) (1 of 1 - PCV) [facility] Start: 2010 Hepatitis B (HBV) Vaccine (optional start 60+ years) Hepatitis B (HBV) Vaccine (optional start 60+ years) [facility] Start: 2010 RSV Vaccine (1 - 1-dose 60+ series) RSV Vaccine (1 - 1-dose 60+ series) [facility] Start: 2010 RSV vaccine (optiona l 60+ years) RSV vaccine (optional 60+ years) [facility] Start: 2000 Shingles (RZV) Vacci ne (1 of 2) Shingles (RZV) Vaccine (1 of 2) [facility] Start: 2000 Shingrix Vaccine (1 of 2) Shingrix Vaccine (1 of 2) [facility] Start: 1995 Cologuard (FIT-DNA) Cologuard (FIT-D NA) [facility] Start: [address] COLONOGRAPHY [facility] Start: 1995 Fecal Occult Blood Fecal Occult Bloo d [facility] Start: 1995 Screening for malignant neoplasm of [facility] Start: 1995 [facility] Start: 1985 Lipid panel Cholesterol [facility] Start: 1980 Zoledronic acid therapy Alpha-1 Antitrypsin Deficiency Screening [facility] Start: 1969 Hepatitis A (HAV) Vaccine (optional start 19+ years) Hepatitis A (HAV) Vaccine (optional start 19+ years) [facility] Start: 1969 Shingrix Vaccine (1 of 2) Shingrix Vaccine (1 of 2) [facility] Start: 1969 Tetanus vaccination Tetanus (T d or Tdap) Booster [facility] Start: 1969 Urine microalbumin profile DTaP,Tdap,Td Vaccine (1 - Tdap) [facility] Start: 1968 Annual PCP Team Chronic Disease Visit Annual PCP Team Chronic Disease Visit [facility] Start: 1968 BP Controlled (<130/80) BP Controlled (<130/80) [facility] Start: 1968 Hepatitis C screening Hepatitis C An tibody [facility] Start: 1968 Spirometry Spirometry [facility] Start: 1968 Tetanus + diphtheria + acellular pertussis vaccine (product) Tdap Booster [facility] Start: 1955 Covid-19 Vaccine (#1) Covid-19 Vacci ne (#1) [facility] Start: 03-25-1951 Covid-19 Vaccine (#1) Covid-19 Vacci ne (#1) [facility] Start: 1950 Abdominal Aortic Aneurysm Screening Abdominal Aortic Aneurysm Screening [facility] Start: 1950 Screening for malignant neoplasm of colon Colonoscopy [facility] Basic metabolic 2008 panel with ionized calcium - Serum or Plasma [facility] CBC W Auto Differential panel - Blood [facility] Work Phone: CBC W Auto Differential panel - Blood [facility] Lipid 1996 panel - Serum or Plasma [facility] MR Lower Extremity Joint [facility] NM Heart Views W stress and W radionuclide IV [facility] Patient Education ED Contact Dermatitis [facility] Work Phone: Patient referral [facility] Work Phone: Thyroid stimulating hormone measurement [facility] Work Phone: US Heart [facility] Vitamin D, 25-hydrox y measurement [facility] Work Phone: [facility] Work Phone: [place] EP LAB NEGATED: Highlighted row has been ruled out! Planned Goals not documented [facility] Work Phone: Immunizations Immunization Date Immunization Notes Care Provider Fa cility 12-11-2019 tetanus toxoid, redu oliver diphtheria toxoid, and acellular pertussis vaccine, adsorbed Dr. Reshma Arreola Work Phone: [facility] 08-30-2016 influenza virus vaccine, unspecified formulation Viktoriya Marcial MD Work Phone: [facility] 2015 pneumococcal conjuga te vaccine, 13 valent Viktoriya Marcial MD Work Phone: [facility] Payers Date Payer Category Payer Self-pay [id number] 2020 Unknown MMO MMO MEDICARE SUPPLEMENT [id number] 2020-Present [phone] [address] [place] [address] Indemnity [id number] 2020 Unknown [id number] 2020 Unknown [id number] 2016 Unknown [id number] 2015 Medicare MEDICARE MEDICAR E A AND B [id number] 2015-Present [phone] [address] [address] [place] [address] Medicare [id number] 2015 Medicare [id number] 1950 Unknown [id number] 2..840.1.681666.3.579.2.594 1950 Unknown [id number] 2..840.1.375966.3.579.2.594 1950 Unknown [id number] 2.16.840.1.930099.3.579.2.594 1950 Unknown [id number] 2.840.1.279191.3.579.2.594 1950 Unknown [id number] 2.840.1.255885.3.579.2.594 1950 Unknown [id number] 2.840.1.161431.3.579.2.594 1950 Unknown [id number] 2.840.1.937043.3.579.2.594 Unknown [id number] Unknown [id number] 2.840.1.723357.3.579.2.462 Unknown [id number] 2.840.1.806980.3.579.2.462 Unknown [id number] 2.840.1.608134.3.579.2.462 Unknown [id number] 2.840.1.990229.3.579.2.462 Unknown [id number] 2.840.1.736758.3.579.2.462 Unknown [id number] 2.840.1.570753.3.579.2.462 Unknown [id number] 2.840.1.308356.3.579.2.462 Unknown [id number] 2.16.840.1.768496.3.579.2.462 Unknown [id number] 2.16.840.1.994123.3.579.2.462 Unknown [id number] 2.16.840.1.301432.3.579.2.462 Unknown [id number] 2.16.840.1.987875.3.579.2.462 Unknown [id number] 2.16.840.1.063081.3.579.2.462 Unknown [id number] 2.16.840.1.908489.3.579.2.462 Unknown [id number] 2.16.840.1.532358.3.579.2.462 Unknown [id number] 2.16.840.1.646954.3.579.2.462 Unknown [id number] 2.16.840.1.103338.3.579.2.462 Unknown [id number] 2.16.840.1.538088.3.579.2.462 Unknown [id number] 2.16.840.1.539004.3.579.2.462 Unknown [id number] 2.16.840.1.940207.3.579.2.462 Unknown [id number] 2.16.840.1.265676.3.579.2.462 Unknown [id number] 2.16.840.1.478182.3.579.2.462 Unknown [id number] 2.16.840.1.029528.3.579.2.462 Unknown [id number] 2.16.840.1.973978.3.579.2.462 Unknown [id number] 2.16.840.1.856672.3.579.2.462 Social History Date Type Detail Facility Assertion Tobacco smoking consumption unknown (finding) [facility] Work Phone: Start: 11-08-2021 End: 10-28-2023 Tobacco smoking status NHIS Unknown if ever smoked [facility] Start: 12-12-2020 None [facility] Start: 07-29-2019 Spouse/ Signif icant Other [facility] Start: 12-24-2020 Non-smoker [facility] Start: 1950 Sex Assigned At Male [facility] Start: 05-01-2011 End: 06-16-2023 Tobacco smoking status NHIS Ex-smoker [facility] History of tobacco use Current smoker [facility] Start: 05-01-2011 End: 06-16-2023 Tobacco use and exposure Smokeless tobacco non-user [facility] Start: 04-23-2023 End: 06-20-2023 Alcohol intake Current drinker of alcohol (finding) [facility] Start: 04-23-2023 End: 06-20-2023 History of Social function [facility] Start: 04-23-2023 End: 06-20-2023 Tobacco use panel [facility] National Score (1-100), lower number is lower risk 69 [facility] Start: 09-13-2008 End: 06-16-2023 Tobacco Comment 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, quit early 1969 [facility] Start: 1950 Sex Assigned At Not on file C [facility] Start: 10-28-2023 Tobacco smoking stat us FLIS Never smoked tobacco (finding) [facility] Start: 10-29-2024 End: 11-19-2024 Sex Male (finding) [facility] Medical Equipment Procedure Code Equipment Code Equipment Origin al Text Equipment Identifier Dates Septoplasty, nose Plant polysacc haride haemostatic agent, bioabsorbable ([id number] FDA Start: 06-23-2023 Goals Date Patient Goal Desired Activity /State Functional Status Date Assessment Result Facility NEGATED: Highlighted row Functional performance Functional status health issues are not documented Disease [facility] Work Phone: Mental Status Date Assessment Result Facility 06-23-2023 Cognitive function Voice/Name [facility] Work Phone: 06-23-2023 Cognitive function Patient Orien tation Person;Place;Time [facility] Work Phone: 11-27-2021 Cognitive function Level Of Cons ciousness Awake;Alert;Appropriate ;Follows Commands [facility] Work Phone: NEGATED: Highlighted row Cognitive function [Interpretation] Cognitive status health issues are not documented Disease [facility] Work Phone: Clinical Notes 12-08-2012 to 06-01-2025 Note Date & Type Note Facility 06-01-2025 Note HNO ID: [id number] Author: JAZMINE SWARTZ RT(R) Service: ? 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 Anesthesia: No PERIPHERAL IV DATA: Not applicable SIGNED BY: RT Abhilash(R) June 01, 2025 3:54 PM [facility] 04-20-2025 Progress note [facility] 04-20-2025 Progress note Note Date/Time April 20, 2025 3:55pm [facility] [address] [place] [address] OFFICE VISIT Date of Service: 04/20/25 MR#: [id number] Acct: [id number] Name: BRIGETTE HOLGUIN Rep #: [id number] : 1950 Provider: Dr. Grzegorz Rojas DO Age/Sex: 74/M [place] [facility] [place] Status: Signed Intake Vital Signs 01/05/25 09:23 [...] Carotid artery stenosis HLD (hyperlipidemia) Sinus bradycardia Gqhys-Sijtrxxjg-Fpqah (WPW) syndrome Sick sinus syndrome Old myocardial infarction BPH (benign prostatic hyperplasia) Atherosclerosis of coronary artery of [place] heart without angina pectoris Segmental and somatic [...] to ambulate. Dr. 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 Philip at [facility] who is now retiredover 10 years ago. He did have an intra-articular injection in the right hip by anterior approach by Dr. 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 I would need medical [...] fallen in the past year?: No 04/20/25 0398 <Electronically signed by Deangelo singh DO> Date _ Deangelo Rojas DO Cosigner Signature: Date (if applicable) CC: Dr. Paresh Carranza MD ~ [facility] Work Phone: 1(724) 541-840409-08-2025 Evaluation note* Diagnosis Onset Date Resolution Status [...] May 8:20am Atherosclerosis of coronary artery of conf[place] heart without angina pectoris chronic May 10, 2025 8:20am History of coronary artery stent placement July 23, 2013 chronic May 10, 2025 8:20am Sick sinus syndrome chronic Octob er 2024 8:20am [facility] Work Phone: 1(381) 981-966809-08-2025 Evaluation note* Diagnosis Onset Date Resolution Status [...] sinus syndrome chronic Octob er 2024 8:20am Ypfaq-Vualzwdfp-Zclkr (WPW) syndrome chronic May 10 8:20am History [...] sinus syndrome chronic Octob er 2024 8:20am [facility] Work Phone: 1(720) 592-913507-07-2025 Discharge summary Author Rosa Maria Davies [facility] Note Date/Time February 07, 2025 3:44p m [facility] Physical Therapy [facility] [place] [address] / REHABILITATION SERVICES DISCHARGE SUMMARY MR#: [id number] Acct: [id number] Name: BRIGETTE HOLGUIN Rep #: [id number] : 1950 74 From: Rosa Maria Guevara Referring Dr.: Dr. Deangelo Rojas, DO Status: REG RCR Insurance: MEDICARE PART A B [facility] Patient Information Patient Information: BRIGETTE HOLGUIN [...] DO; Dr. Paresh Carranza MD ~ Signed [facility] Work Phone: 1(152) 341-910107-07-2025 Discharge summary [facility] Physical Therapy [address] [place] [address] / REHABILITATION SERVICES DISCHARGE SUMMARY MR#: [id number] Acct: [id number] Name: BRIGETTE HOLGUIN Rep #: [id number] : 1950 74 From: Rosa Maria Davies MP T Referring Dr.: Dr. Deangelo Rojas DO Status: REG RCR Insurance: MEDICARE PART A B [facility] Patient Information Patient Information: BRIGETTE HOLGUIN [...] DO; Dr. Paresh Carranza MD ~ Signed [facility]06-04-2025 Progress [facility] [address] [place] [address] OFFICE VISIT Date of Service: 01/05/25 MR#: [id number] Acct: [id number] Name: BRIGETTE HOLGUIN Rep #: [id number] : 1950 Provider: ANABEL Grande Age/Sex: 74/M Location: [facility] Status: Signed HPI HPI History of Present Illness Details: Mr. Holguin is a 74-year-old white male, who presents today for outpatient cardiovascular followup. As you know, he has a history of hypertension, hypercholesterolemia, paroxysmal atrial fibrillation, coronary artery disease status post angioplasty and drug-eluting stenting to the LAD at [facility] on 07/23/13. 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 Paresh Carranza MD ~ [facility]05-30-2025 Evaluation note* Diagnosis Onset Date Resolution [...] atrial fibrillation chronic January 05, 2025 9:18am [facility] Work Phone: [phone]) 876-1404654155-07-8082 Evaluation note* Diagnosis Onset Date Resolution Status [...] of right hip acute April 042024 3:32pm [facility] Work Phone: 1(351) 659-807911-20-2023 Discharge summary Author Thierry Pepe [facility] June 23, 2023 3:09pm Note Date/Time June 23, 2023 3:09pm [facility] Medical Records Department [address] [place] [address] Discharge Summary 06/23/23 1508 MR#: [id number] Acct: [id number] Name: BRIGETTE HOLGUIN Rep #:[id number] : 1950 72 From: Thierry Pepe MD PCP: Dr. Paresh Carranza MD Status:REG S AL Location: [place] [address] Providers Primary Care Physician: Dr. Paresh Carranza [...] Pepe MD; Dr. Paresh Carranza MD~ Signed [facility] Work Phone: 1(269) 816-645511-20-2023 Procedure [facility] 06-20-2023 NoteHNO ID: [id number] Author: Maribel Pretty RN Service: Care Management [...] the process utilized to ensure compliance with [facility] policy regarding Inpatient Admission and Observation Services. [...] treating physician's order as documented evidence of concurrence.[facility]11-17-2023 Note HNO ID: [id number] Author: Iva Perez, RN Service: Electrophysiology Author Type: Registered Nurse Type: Progress Notes Filed: 06/20/2023 2:57 PM Note Text: Stable PM function. Teaching completed. To have follow up in [place] device clinic. Jas[facility]11-16-2023 NoteHNO ID: [id number] Author: Emilio ([email or web address])Mariza Service: Pharmacy Author Type: Pbx Manager Type: Plan of Care Filed: 06/19/2023 3:20 PM Note Text: PHARMACY MEDICATION REVIEW Patient Name: Brigette Holguin : 1950 The following medications were updated within the REMOTE SENSING ANALYST medication list: Medications ADDED to REMOTE SENSING ANALYST medication list Medications CHANGED on REMOTE SENSING ANALYST medication list Medications REMOVED from REMOTE SENSING ANALYST medication list meloxicam (MOBIC) 15 mg tablet [...] medication history: Yes Medication history completed by: Pbx Manager: Mariza Jhaveri ([email or web address]) Source of history: Patient: Reliability of source: Appears reliable, clearly identified: Medication name, Medication dose, Medication route, and Medication frequency, Pharmacy records: e-scripts/dispense report, and [facility] records Medication nonadherence identified: No barriers noted Reconciliation completed: No, pharmacist not yet reviewed Patient interested in Bedside Delivery Services or using CC OP Pharmacy at discharge? Unable to assess Preferred outpatient pharmacy: [facility] [address] [place] [address] - [address] - [phone] Allergies: Oxybutynin Shortness of Breath Sulfasalazine Rash [...] once daily. Facility-Administered Medications: None Mariza Jhaveri (Supervisor [employer])[id number] 06/19/2023[facility]11-16-2023 NoteHNO ID: [id number] Author: Nic Chu MD Service: Anesthesiology Author [...] June 19, 2023 TIME: 9:16 AM CSN: [id number]11-[facility]-2023 NoteHNO ID: [id number] Author: Ange Crouch APRN.CRNA Service: Anesthesiology Author Type: Nurse Manager Recovery Type: Anesthesia Procedure Notes Filed: 06/19/2023 9:16 AM Note Text: ANESTHESIOLOGY PROCEDURE NOTE Airway General Information Procedure Start Time/Medication Administration: 06/19/2023 8:54 AM Staffing TAXI CAB DRIVER: Ange Crouch APRN.TAXI CAB DRIVER Performed by: JARRETT Indications and Patient Condition [...] 1 Airway not difficult SIGNATURE: Ange Crouch APRN.TAXI CAB DRIVER PATIENT NAME: Brigette Holguin DATE: June 19, 2023 TIME: 9:15 AM CSN: [id number] [facility] Center11-13-2023 NoteHNO ID: [id number] Author: Lonnie Mercer APRN.CNP Service: ? Author Type: Nurse Practitioner Type: Progress Notes Filed: 06/16/2023 12:20 PM Note Text: [facility] Cardiology Electrophysiology PRIMARY CARE PHYSICIAN: Paresh Carranza [address] [facility] [address] [place] [address] CHIEF COMPLAINT: History and physical update prior [...] dysfunction, status post dual-chamber pacemaker implantation at [facility] in 2012. Device now is approaching [...] WHEN PFRMD 09/15/2009 Colonoscopy PACEMAKER IMPLANT 12/03/2012 [facility] PACEMAKER IMPLANT 01/04/2013 re-implanted due to [...] electrodes MEDICATIONS: losartan ( (more content not included)...[facility]09-20-2023 NoteHNO ID: [id number] Author: Viktoriya Marcial MD Service: ? Author Type: Physician Type: Progress Notes Filed: 04/23/2023 11:57 AM Note Text: [facility] SECTION OF CARDIAC PACING and ELECTROPHYSIOLOGY OUTPATIENT VISIT DATE April 23, 2023 OUTPATIENT VISIT TYPE NEW PRIMARY CARE PHYSICIAN: Paresh Carranza [address] [place] [address] HISTORY OF PRESENT ILLNESS: 72-year-old male with history of essential hypertension, coronary disease, status post remote PCI, paroxysmal atrial fibrillation, on rate control strategy, not anticoagulated due to severe bruising, sinus node dysfunction, status post dual-chamber pacemaker implantation at [facility] in 2012. Device now is approaching [...] Asthma with chronic obstructive pulmonary disease (COPD) ([facility]) 03/01/2015 Atrial fibrillation ([facility]) 09/22/2012 Benign hypertension 2015 CAD (coronary artery disease) Diverticulosis of colon (without mention of hemorrhage) Hemiplegia, nondominant side S/P CVA (cerebrovascular accident) 08/07/2012 HTN (hypertension) Hypercholesterolemia Hyperlipidemia LDL goal <100 2015 Presence of cardiac pacemaker 03/01/2015 Spinal stenosis of lumbar region without neurogenic claudication 03/01/2015 Stroke ([facility]) 08/07/2012 right posterior frontal lobe, left hand [...] General: No scleral icte (more content not included)...[facility]09-20-2023 History of Present illness Narrative* Viktoriya Marcial MD - 04/23/2023 11:50 AM EDT Images from the original note were not included. [facility] SECTION OF CARDIAC PACING and ELECTROPHYSIOLOGY OUTPATIENT VISIT DATE April 23, 2023 OUTPATIENT VISIT TYPE NEW PRIMARY CARE PHYSICIAN: Paresh Carranza [address] [place] [address] HISTORY OF PRESENT ILLNESS: 72-year-old male with history of essential hypertension, coronary disease, status post remote PCI, paroxysmal atrial fibrillation, on rate control strategy, not anticoagulated due to severe bruising,sinus node dysfunction, status post dual-chamber pacemaker implantation at [facility] in 2012. Device now is approaching [...] Asthma with chronic obstructive pulmonary disease (COPD) ([facility]) 03/01/2015 Atrial fibrillation ([facility]) 09/22/2012 Benign hypertension 2015 CAD (coronary artery disease) Diverticulosis of colon (without mention of hemorrhage) Hemiplegia, nondominant side S/P CVA (cerebrovascular accident) 08/07/2012 HTN (hypertension) Hypercholesterolemia Hyperlipidemia LDL goal <100 2015 Presence of cardiac pacemaker 03/01/2015 Spinal stenosis of lumbar region without neurogenic claudication 03/01/2015 Stroke ([facility]) 08/07/2012 right posterior frontal lobe, left hand [...] INFORMATION: Vik[facility]oriya Marcial [facility]* Adriane Cuellar LPN - 04/23/2023 10:49 AM EDT Patient denies any cardiac complaints or symptoms. 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 Essential (primary) hypertension chronic History of coronary artery stent placement July 232012 chronic HLD (hyperlipidemia) chronic Paroxysmal atrial fibrillation chronic Sick sinus syndrome chronic History of permanent cardiac pacemaker 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, 2012 acute Paroxysmal atrial fibrillation chronic Sick sinus syndrome chronic Sinus bradycardia chronic Cbsvb-Rxjgivhea-Bchob (WPW) syndrome chronic B12 deficiency acute B12 deficiency acute Current use of fci anticoagulation acute FDC current use of amiodarone acute Asthma chronic Chronic kidney disease (CKD) chronic Essential (primary) hypertension chronic HLD (hyperlipidemia) chronic Paroxysmal atrial fibrillation [facility] Work Phone: 1([phone] 720-895905-07-2013 Evaluation note* Diagnosis Onset Date Resolution Status Asthma chronic Chest pain acute DOMÍNGUEZ (dyspnea on exertion) [place] History of permanent cardiac pacemaker 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, 2012 acute FDC current use of amiodarone acute Essential (primary) hypertension chronic History of coronary artery stent placement July 232012 chronic HLD (hyperlipidemia) chronic Paroxysmal atrial fibrillation chronic Sick sinus syndrome chronic History of permanent cardiac pacemaker 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, 2012 acute Paroxysmal atrial fibrillation chronic Sick sinus syndrome chronic Sinus bradycardia chronic Luqtz-Zeginxyot-Bpeiv (WPW) syndrome chronic B12 deficiency acute B12 deficiency acute Current use of fci anticoagulation acute 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 current use of amiodarone acute Asthma chronic Chronic kidney disease (CKD) chronic Essential (primary) hypertension chronic HLD (hyperlipidemia) chronic Paroxysmal atrial fibrillation chronic Acute URI acute [facility] Work Phone: [phone] 245-152305-07-2013 Evaluation note* Diagnosis Onset Date Resolution Status Chest pain acute DOMÍNGUEZ (dyspnea on exertion) [place] History of permanent cardiac pacemaker 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, 2012 acute FDC current use of amiodarone acute Essential (primary) hypertension chronic History of coronary artery stent placement July 232012 chronic HLD (hyperlipidemia) chronic Paroxysmal atrial fibrillation chronic Sick sinus syndrome chronic History of permanent cardiac pacemaker 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, 2012 acute Paroxysmal atrial fibrillation chronic Sick sinus syndrome chronic Sinus bradycardia chronic Mephj-Rkydryvtp-Xflza (WPW) syndrome chronic B12 deficiency acute B12 deficiency acute Current use of 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 anticoagulation acute 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 current use of amiodarone acute Asthma chronic Chronic kidney disease (CKD) chronic Essential (primary) hypertension chronic HLD (hyperlipidemia) chronic Paroxysmal atrial fibrillation chronic Acute URI acute [facility] Work Phone: [phone]) 762-909605-07-2013 Evaluation note* Diagnosis Onset Date Resolution Status History of permanent cardiac pacemaker 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, 2012 acute Paroxysmal atrial fibrillation chronic Sick sinus syndrome chronic Vvofy-Wrlvkhhum-Kmdfe (WPW) syndrome chronic History of permanent cardiac pacemaker 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, 2012 acute Essential (primary) hypertension chronic History of coronary artery stent placement July 232012 chronic HLD (hyperlipidemia) chronic FDC current use of amiodarone chronic Paroxysmal atrial fibrillation chronic Sick sinus syndrome chronic History of permanent cardiac pacemaker 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, 2012 acute Paroxysmal atrial fibrillation chronic Sick sinus syndrome chronic Erxva-Reqfxyool-Qxjxh (WPW) syndrome chronic History of permanent cardiac pacemaker 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, 2012 acute Essential (primary) hypertension chronic History of coronary artery stent placement July 232012 chronic HLD (hyperlipidemia) chronic FDC current use of amiodarone chronic Paroxysmal atrial fibrillation chronic Sick sinus syndrome [facility] Work Phone: 1([phone]) 306-119205-07-2013 Evaluation note* Diagnosis Onset Date Resolution Status History of permanent cardiac pacemaker 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, 2012 acute Paroxysmal atrial fibrillation chronic Sick sinus syndrome chronic Dmwhc-Osagpfuny-Bfzgv (WPW) syndrome chronic History of permanent cardiac pacemaker 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, 2012 acute Essential (primary) hypertension chronic History of coronary artery stent placement July 232012 chronic HLD (hyperlipidemia) chronic 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 current use of amiodarone chronic Paroxysmal atrial fibrillation chronic Sick sinus syndrome [facility] Work Phone: 1([phone]) 913-134105-07-2013 Evaluation note* Diagnosis Onset Date Resolution Status History of permanent cardiac pacemaker 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2012 acute Paroxysmal atrial fibrillation chronic Sick sinus syndrome chronic Mufnl-Fyfdhzmxe-Twxrb (WPW) syndrome [facility] Work Phone: [phone] Evaluation note* Diagnosis Onset Date Resolution Status History of permanent cardiac pacemaker 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, 2012 acute Paroxysmal atrial fibrillation chronic Sick sinus syndrome chronic Piqqm-Dsojfwiyb-Tiiiu (WPW) syndrome chronic History of permanent cardiac pacemaker 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, 2012 acute Paroxysmal atrial fibrillation chronic Sick sinus syndrome chronic Efowp-Reokjmmau-Dvlal (WPW) syndrome chronic History of permanent cardiac pacemaker 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, 2012 acute Essential (primary) hypertension chronic History of coronary artery stent placement July 232012 chronic HLD (hyperlipidemia) chronic Paroxysmal atrial fibrillation chronic Sick sinus syndrome [facility] Work Phone: 1([phone]) 816-459205-07-2013 Evaluation note* Diagnosis Onset Date Resolution Status History of permanent cardiac pacemaker 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, 2012 acute Paroxysmal atrial fibrillation chronic Sick sinus syndrome chronic Bwmpz-Sbdriksnk-Cysjr (WPW) syndrome chronic History of permanent cardiac pacemaker 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, 2012 acute Essential (primary) hypertension chronic History of coronary artery stent placement July 232012 chronic HLD (hyperlipidemia) chronic Paroxysmal atrial fibrillation chronic Sick sinus syndrome [facility] Work Phone: 1([phone]) 170-819305-07-2013 Evaluation note* Diagnosis Onset Date Resolution Status History of permanent cardiac pacemaker 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2012 acute Paroxysmal atrial fibrillation chronic Sick sinus syndrome chronic Sinus bradycardia chronic Odepw-Cmmgvftcn-Icwlx (WPW) syndrome chronic History of permanent cardiac pacemaker 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2012 acute Sick sinus syndrome chronic Sinus bradycardia chronic Kxwnu-Upqiwgdsr-Cxuzz (WPW) syndrome [facility] Work Phone: [phone] Evaluation note* Diagnosis Onset Date Resolution Status History of permanent cardiac pacemaker 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, 2012 acute Sick sinus syndrome chronic Sinus bradycardia chronic Mkdlh-Xhwsparzp-Pmzqe (WPW) syndrome chronic History of permanent cardiac pacemaker 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, 2012 acute Essential (primary) hypertension chronic History of coronary artery stent placement July 232012 chronic HLD (hyperlipidemia) chronic Paroxysmal atrial fibrillation [facility] Work Phone: 1([phone] 506-622005-07-2013 Evaluation note* Diagnosis Onset Date Resolution Status [...] 10:15am Sinus bradycardia chronic November 082024 10:15am Fhbmo-Trkjenymp-Jynoz (WPW) syndrome chronic November 08, 2024 10:15am [facility] Work Phone: 1([phone] 391-561005-07-2013 Evaluation note* Diagnosis Onset Date Resolution Status [...] 10:15am Sinus bradycardia chronic November 082024 10:15am Yijzl-Sxukacehi-Ydlrw (WPW) syndrome chronic November 08, 2024 10:15am Greater trochanteric bursitis of right hip acute December 31, 2024 9:24am IT band syndrome acute December 9:24am Lumbar radiculopathy acute December 31, 2024 9:24am [facility] Work Phone: [phone] 272-680405-07-2013 Evaluation note* Diagnosis Onset Date Resolution Status [...] 10:15am Sinus bradycardia chronic November 082024 10:15am Ulzjn-Qzlrgtpbg-Vmpbq (WPW) syndrome chronic November 08, 2024 10:15am [...] atrial fibrillation chronic January 05, 2025 9:18am [facility] Work Phone: 1([phone] 801-495205-07-2013 Evaluation note* Diagnosis Onset Date Resolution Status [...] of right hip acute April 042024 3:32pm [facility] Work Phone: Evaluation note* Diagnosis Onset Date Resolution Status Current use of 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 anticoagulation acute Leg pain acute Leg swelling acute Essential (primary) hypertension chronic Paroxysmal atrial fibrillation chronic Current use of fci anticoagulation acute Left anterior knee pain acut e Leg pain acute Leg swelling acute Chronic back pain chronic Essential (primary) hypertension chronic Paroxysmal atrial fibrillation chronic B12 deficiency acute Asthma chronic Chest pain acute DOMÍNGUEZ (dyspnea on exertion) [place] History of permanent cardiac pacemaker 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, 2012 acute FDC current use of amiodarone acute Essential (primary) hypertension chronic History of coronary artery stent placement July 232012 chronic HLD (hyperlipidemia) chronic Paroxysmal atrial fibrillation chronic Sick sinus syndrome chronic [facility] Work Phone: Evaluation note* Diagnosis Onset Date Resolution Status Current use of 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 anticoagulation acute Leg pain acute Leg swelling acute Essential (primary) hypertension chronic Paroxysmal atrial fibrillation chronic Current use of 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 anticoagulation acute Left anterior knee pain acut e Leg pain acute Leg swelling acute Chronic back pain chronic Essential (primary) hypertension chronic Paroxysmal atrial fibrillation chronic B12 deficiency acute Asthma chronic Chest pain acute DOMÍNGUEZ (dyspnea on exertion) [place] History of permanent cardiac pacemaker 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, 2012 acute FDC current use of amiodarone acute Essential (primary) hypertension chronic History of coronary artery stent placement July 232012 chronic HLD (hyperlipidemia) chronic Paroxysmal atrial fibrillation chronic Sick sinus syndrome chronic History of permanent cardiac pacemaker 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, 2012 acute Paroxysmal atrial fibrillation chronic Sick sinus syndrome chronic Sinus bradycardia chronic Zsjqp-Ocirhiyhi-Jkztx (WPW) syndrome chronic [facility] Work Phone: Evaluation noteNo assessment information available [facility] Work Phone: Evaluation note* Diagnosis Pacemaker lead malfunction, initial encounter- Primary Presence of cardiac pacemaker Cardiac pacemaker in situ Sinus node dysfunction (HCC) Sinoatrial node dysfunction Paroxysmal atrial fibrillation (HCC) Atrial fibrillation [facility] Diagnosis Dyspnea, unspecified type- Primary Dyspnea, unspecified type [facility] Dyspnea, unspecified type [facility] Additional Instructions [facility] Used?: [facility] Work Phone: Progress note Author [facility] Note Date/Time January 05, 2025 10:[address] [facility] [address] [place] [address] OFFICE VISIT Date of Service: 01/05/25 MR#: [id number] Acct: [id number] Name: BRIGETTE HOLGUIN Rep #: [id number] : 1950 Provider: ANABEL Grande Age/Sex: 74/M Location: [facility] Status: Signed HPI HPI History of Present Illness Details: Mr. Holguin is a 74-year-old white male, who presents today for outpatient cardiovascular followup. As you know, he has a history of hypertension, hypercholesterolemia, paroxysmal atrial fibrillation, coronary artery disease status post angioplasty and drug-eluting stenting to the LAD at [facility] on 07/23/13. 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 Paresh Carranza MD ~ [facility] [employer] Work Phone: Reason for referral (narrative)No reason for referral information [facility]WKn[facility] Work Phone: Summary Purpose Family History [...] February 03, 2021 1 1:10am Power of Lockstitch Machine Operator Yes February 03, 2021 11:10am Advance Directive Response Recorded Date/ Time Advance Directives No December 12 9:18am Living Will No November 27, 2021 9:03pm Power of Lockstitch Machine Operator No November 27 9:03pm Advance Directive Response Recorded Date/ Time Advance Directives No January 09 8:34am Living Will No January 09, 2022 8 :34am Power of Lockstitch Machine Operator No January 09, 2022 8:34am Advance Directive Response Recorded Date/ Time Advance Directives No January 09 7:34am Living Will No January 09, 2022 7 :34am Power of Lockstitch Machine Operator No January 09, 2022 7:34am Latest Code Status on File Code Status Date Activated Date Inactivated Comments Full Code 12/25/2020 11:50 PM 12/27/2020 6:00 PM Question Answer Comments Full Code Order Discussed With: Patient Advance Directive Response Recorded Date/ Time Advance Directives No January 09 7:34am Living Will No June 11 10:15am Power of Lockstitch Machine Operator No June 11, 2023 10:15am Advance Directive Response Recorded Date/ Time Advance Directives No January 09 8:34am Living Will No June 11 11:15am Power of Lockstitch Machine Operator No June 11, 2023 11:15am Advance Directive Response Recorded Date/ Time Advance Directives No January 09 8:34am Advance Directive Response Recorded Date/ Time Living Will No June 11 11:15am Do you have a Healthcare Power of Lockstitch Machine Operator? No June 11, 2023 11:15am Advance Directives No January 09 8:34am Chief Complaint and Reason for Visit Chief Complaint B12 INJ L LEG RED AND SWOLLEN RIGHT LEG SWELLING LEFT LEG xray B12 INJ discuss inhalers B12 INJ PER MSG FROM NURSE & PMW EORDERS CP *NEVIN* CP *NEVIN* B12 INJ CP, DYSPNEA *NEVIN* Reason for Visit Current use of 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 anticoagulation Leg pain Leg swelling Essential (primary) hypertension Paroxysmal atrial fibrillation Current use of fci anticoagulation Left anterior knee pain Leg pain Leg swelling Chronic back pain Essential (primary) hypertension Paroxysmal atrial fibrillation B12 deficiency Asthma Chest pain DOMÍNGUEZ (dyspnea on exertion) History of permanent cardiac pacemaker placement 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 current use of amiodarone Essential (primary) hypertension [...] EDEMA Reason for Visit Current use of fci anticoagulation Leg pain Leg swelling Essential (primary) hypertension Paroxysmal atrial fibrillation Current use of fci anticoagulation Left anterior knee pain Leg pain Leg swelling Chronic back pain Essential (primary) hypertension Paroxysmal atrial fibrillation B12 deficiency Asthma Chest pain DOMÍNGUEZ (dyspnea on exertion) History of permanent cardiac pacemaker placement FDC current use of amiodarone Essential (primary) hypertension History of coronary artery stent placement HLD (hyperlipidemia) Paroxysmal atrial fibrillation Sick sinus syndrome History of permanent cardiac pacemaker placement Paroxysmal atrial fibrillation Sick sinus syndrome Sinus bradycardia Bmjdy-Wjjwlnkob-Pvryp (WPW) syndrome Chief Complaint B12 INJ discuss inhalers B12 INJ PER MSG FROM NURSE & PMW EORDERS CP *NEVIN* CP *NEVIN* B12 INJ CP, DYSPNEA *NEVIN* INT LABS/ TWO ORDERING 'Virgie 6 mos PPM f/u FACIAL EDEMA B12 INJ 6 M FU & B12 INJ Reason for Visit B12 deficiency Asthma Chest pain DOMÍNGUEZ (dyspnea on exertion) History of permanent cardiac pacemaker placement 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 current use of amiodarone Essential (primary) hypertension History of coronary artery stent placement HLD (hyperlipidemia) Paroxysmal atrial fibrillation Sick sinus syndrome History of permanent cardiac pacemaker placement Paroxysmal atrial fibrillation Sick sinus syndrome Sinus bradycardia Wbhdi-Oppywsgyy-Pzvpc (WPW) syndrome B12 deficiency B12 deficiency Current use of fci anticoagulation FDC current use of amiodarone Asthma Chronic kidney [...] exertion) History of permanent cardiac pacemaker placement FDC current use of amiodarone Essential (primary) hypertension History of coronary artery stent placement HLD (hyperlipidemia) Paroxysmal atrial fibrillation Sick sinus syndrome History of permanent cardiac pacemaker placement Paroxysmal atrial fibrillation Sick sinus syndrome Sinus bradycardia Vezey-Keivuomzl-Xijwf (WPW) syndrome B12 deficiency B12 deficiency Current use of fci anticoagulation FDC current use of amiodarone Asthma Chronic kidney [...] exertion) History of permanent cardiac pacemaker placement 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 current use of amiodarone Essential (primary) hypertension History of coronary artery stent placement HLD (hyperlipidemia) Paroxysmal atrial fibrillation Sick sinus syndrome History of permanent cardiac pacemaker placement Paroxysmal atrial fibrillation Sick sinus syndrome Sinus bradycardia Mfrzk-Ihbtemwxr-Rxfxe (WPW) syndrome B12 deficiency B12 deficiency Current use of fci anticoagulation FDC current use of amiodarone Asthma Chronic kidney disease (CKD) Essential (primary) hypertension HLD (hyperlipidemia) Paroxysmal atrial fibrillation Acute URI Chief Complaint 6 mos PPM f/u / JHR 3:30 F/U / JAZLYN 3:00 approaching MADDY/JOHN4:00 6 m fu (per pt request)[id number] EORDER Reason for Visit History of permanent cardiac pacemaker placement Paroxysmal atrial fibrillation Sick sinus syndrome Vnnnq-Zicsbwfbv-Vrimd (WPW) syndrome History of permanent cardiac pacemaker placement Essential (primary) hypertension History of coronary artery stent placement HLD (hyperlipidemia) 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 current use of amiodarone Paroxysmal atrial fibrillation Sick sinus syndrome History of permanent cardiac pacemaker placement Paroxysmal atrial fibrillation Sick sinus syndrome Ouotg-Lpeqzjnku-Elvnb (WPW) syndrome History of permanent cardiac pacemaker placement Essential (primary) hypertension History of coronary artery stent placement HLD (hyperlipidemia) 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 current use of amiodarone Paroxysmal atrial fibrillation Sick sinus syndrome Chief Complaint approaching MADDY/JAIRO 4:00 6 m fu (per pt request)[id number] EORDER Reason for Visit History of permanent cardiac pacemaker placement Paroxysmal atrial fibrillation Sick sinus syndrome Cigiw-Ejhuwphdu-Otsak (WPW) syndrome History of permanent cardiac pacemaker placement Essential (primary) hypertension History of coronary artery stent placement HLD (hyperlipidemia) 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 current use of amiodarone Paroxysmal atrial fibrillation Sick sinus syndrome Chief Complaint 3 M FU Spondylosis without myelopathy or radiculopathy, l Reason for Visit History of permanent cardiac pacemaker placement Paroxysmal atrial fibrillation Sick sinus syndrome Coeee-Twpjlwtrn-Shpkc (WPW) syndrome Chief Complaint 3 M FU Spondylosis without myelopathy or radiculopathy, l PRESENCE OF RIGHT ARTIFICIAL SHOULDER JOINT Reason for Visit History of permanent cardiac pacemaker placement Paroxysmal atrial fibrillation Sick sinus syndrome Lnhcp-Fkujmwuxs-Bytzm (WPW) syndrome Chief Complaint 3 M FU Spondylosis without myelopathy or radiculopathy, l PRESENCE OF RIGHT ARTIFICIAL SHOULDER JOINT 6 MO F/U / JAZLYN 3:30 EORDER Reason for Visit History of permanent cardiac pacemaker placement Paroxysmal atrial fibrillation Sick sinus syndrome Nmnej-Hqgxzfrjz-Cirmp (WPW) syndrome History of permanent cardiac pacemaker placement Paroxysmal atrial fibrillation Sick sinus syndrome Thysr-Xvfgfjnxo-Wuyfd (WPW) syndrome History of permanent cardiac pacemaker placement Essential (primary) hypertension History of coronary artery stent placement HLD (hyperlipidemia) Paroxysmal atrial fibrillation Sick sinus syndrome Chief Complaint PRESENCE OF RIGHT AR TIFICIAL SHOULDER JOINT 6 MO F/U / JAZLYN 3:30 EORDER Reason for Visit History of permanent cardiac pacemaker placement Paroxysmal atrial fibrillation Sick sinus syndrome Zbgvl-Rtkfqtbhe-Sjeug (WPW) syndrome History of permanent cardiac pacemaker placement Essential (primary) hypertension History of coronary artery stent placement HLD (hyperlipidemia) Paroxysmal atrial fibrillation Sick sinus syndrome Chief Complaint PRESENCE OF RIGHT AR TIFICIAL SHOULDER JOINT 6 MO F/U / JAZLYN 3:30 EORDER PREOP Septoplasty,Resect/inferior turbina Reason for Visit History of permanent cardiac pacemaker placement Paroxysmal atrial fibrillation Sick sinus syndrome Ekobn-Ujtfvqtew-Eawvf (WPW) syndrome History of permanent cardiac pacemaker placement Essential (primary) hypertension History of coronary artery stent placement HLD (hyperlipidemia) Paroxysmal atrial fibrillation Sick sinus syndrome Chief Complaint PREOP Septoplasty,Resect/inferior turbina wound check/PPM f/u s/p lead revision [facility] Pacer Check Remote Pacer Check Remote 6 wk post RV lead revision E ORDERS Reason for Visit History of permanent cardiac pacemaker placement Paroxysmal atrial fibrillation Sick sinus syndrome Sinus bradycardia Mkhpt-Osvlqspem-Qcekq (WPW) syndrome History of permanent cardiac pacemaker placement Sick sinus syndrome Sinus bradycardia Deejk-Wmqyukvwl-Dirwj (WPW) syndrome Chief Complaint Pacer Check Remote 6 wk post RV lead revision E ORDERS 1 YR / NEEDS 4PM Reason for Visit History of permanent cardiac pacemaker placement Sick sinus syndrome Sinus bradycardia Wqbyt-Cxscyzgmh-Mtxcr (WPW) syndrome History of permanent cardiac pacemaker [...] Sinus bradycardia November 08, 2024 10:1 5am Jqpnq-Dxdonolob-Pombh (WPW) syndrome Apr 2024 10:15am Chief Complaint [...] Sinus bradycardia November 08, 2024 10:1 5am Hhqnx-Yieahyfir-Bhtbh (WPW) syndrome Nov 10:15am Greater trochanteric bursitis [...] Sinus bradycardia November 08, 2024 10:1 5am Spfgj-Caltiovlt-Ccxox (WPW) syndrome Nov 10:15am Degenerative joint disease [...] 2025 8:20am Atherosclerosis of coronary artery of [place] heart without angina pectoris May 10, 2025 [...] sinus syndrome May 10, 2025 8: 20am Mnrte-Lfjarspec-Eloey (WPW) syndrome Oct bill2024 8:20am Preoperative cardiovascular [...] VIEWS Gladys Han [address] [place] [address] [facility] [address] [place] [address] [place] [address] Referral ID Status Reason Start Date Expiration Date V isits Requested Visits Authorized [id number] Pending Review 11/25/2023 11/24/2024 1 1 Additional Source Comments (unrecognized sect ion and content) No Status Records FoundNo Status Records FoundNo Status Records FoundNo Status Records FoundNo Status Records FoundNo Status Records FoundNo Status Records FoundNo Status Records Found INFORMATION SOURCE (unrecogn ized section and content) DATE CREATED AUTHOR 06/03/2020 [facility] DATE CREATED AUTHOR AUTHOR'S ORGANIZ ATION 09/01/2020 [facility] DATE CREATED AUTHOR AUTHOR'S ORGANIZ ATION 10/18/2020 [employer] DATE CREATED AUTHOR AUTHOR'S ORGANIZ ATION 04/01/2021 [facility] DATE CREATED AUTHOR AUTHOR'S ORGANIZ ATION 07/15/2023 [facility] DATE CREATED AUTHOR AUTHOR'S ORGANIZ ATION 11/26/2023 [facility] [facility] DATE CREATED AUTHOR AUTHOR'S ORGANIZ ATION 06/07/2025 [facility] DATE CREATED AUTHOR AUTHOR'S ORGANIZ ATION 06/13/2025 [facility] Care Teams (unrecognized sec tion and content) [...] Arreola MD Referring Provider Active Jairo Grande SHUTTLE FINAL INSPECTOR, SHUTTLE FINAL INSPECTOR-C Attending Provider Active Dr. Paresh Carranza MD Primary Care Provider Active Team Status: Inactive Member Role Status Dates Dr. Paresh Carranza MD Primary Care Provider, Referring Provider Active Argenis Mcgee Attending Provider Active Team Status: Inactive Member Role Status Dates Dr. Paresh Carranza MD Primary Care Provider, Referring Provider Active Jairo Grande SHUTTLE FINAL INSPECTOR, SHUTTLE FINAL INSPECTOR-C Attending Provider Active Team Status: Inactive Member Role Status Dates Dr. Paresh Carranza MD Primary Care Provider Active Jairo Grande SHUTTLE FINAL INSPECTOR, SHUTTLE FINAL INSPECTOR-C Attending Provider, Referring Pro vider Active Team [...] Dr. Uma Israel MD Attending Provider Active Family Preservation Officer Relationship Specialty Start Date End Date Paresh Carranza MD [address] [place] [address] [address] [place] [address] PCP - General Family Medicine 04/22/23 Family Preservation Officer Relationship Specialty Start Date End Date Paresh Carranza MD [address] [facility] [address] [place] [address] PCP - General Family Medicine 04/22/23 Team [...] MD Primary Care Provider Active Kerry Hilliard SHUTTLE FINAL INSPECTOR, SHUTTLE FINAL INSPECTOR-C Attending Provider, Referring P naveen Active Team [...] 2024 End: November 08, 2024 Jairo Grande SHUTTLE FINAL INSPECTOR, SHUTTLE FINAL INSPECTOR-C Attending Provider Active S tart: November 08, 2024 End: November 08, 2024 Jairo Grande SHUTTLE FINAL INSPECTOR, SHUTTLE FINAL INSPECTOR-C Referring Provider Active S tart: November 08, [...] 2024 End: November 16, 2024 Jairo Grande SHUTTLE FINAL INSPECTOR, SHUTTLE FINAL INSPECTOR-C Attending Provider Active S tart: November 16, 2024 End: November 16, 2024 Jairo Grande SHUTTLE FINAL INSPECTOR, SHUTTLE FINAL INSPECTOR-C Referring Provider Active S tart: November 16, [...] 2024 End: December 31, 2024 Dr. Paresh Carrazna MD Referring Provider Active Start: December 31, [...] 2025 End: January 05, 2025 Jairo Grande SHUTTLE FINAL INSPECTOR, SHUTTLE FINAL INSPECTOR-C Attending Provider Active S tart: January 05, [...] 2024 End: November 08, 2024 Jairo Grande SHUTTLE FINAL INSPECTOR, SHUTTLE FINAL INSPECTOR-C Attending Provider Active S tart: November 08, 2024 End: November 08, 2024 Jairo Grande SHUTTLE FINAL INSPECTOR, SHUTTLE FINAL INSPECTOR-C Referring Provider Active S tart: November 08, 2024 End: November 08, 2024 Team Status: Inactive Member Role/Relationship Status Dates Dr. Paresh Carranza MD Primary Care Provider Active Start: November 16, 2024 End: November 16, 2024 Jairo Grande SHUTTLE FINAL INSPECTOR, SHUTTLE FINAL INSPECTOR-C Attending Provider Active S tart: November 16, 2024 End: November 16, 2024 Jairo Grande SHUTTLE FINAL INSPECTOR, SHUTTLE FINAL INSPECTOR-C Referring Provider Active S tart: November 16, [...] 2025 End: January 05, 2025 Jairo Grande SHUTTLE FINAL INSPECTOR, SHUTTLE FINAL INSPECTOR-C Attending Provider Active S tart: January 05, [...] 2025 End: January 05, 2025 Jairo Grande SHUTTLE FINAL INSPECTOR, SHUTTLE FINAL INSPECTOR-C Attending Provider Active S tart: January 05, [...] 2025 End: January 05, 2025 Jairo Grande SHUTTLE FINAL INSPECTOR, SHUTTLE FINAL INSPECTOR-C Attending physician Active Start: January 05, 2025 [...] 2025 End: January 05, 2025 Jairo Grande SHUTTLE FINAL INSPECTOR, SHUTTLE FINAL INSPECTOR-C Attending physician Active Start: January 05, 2025 [...] 2025 End: May 10, 2025 Jairo Grande SHUTTLE FINAL INSPECTOR, SHUTTLE FINAL INSPECTOR-C Attending physician Active Start: May 10, 2025 End: May 10, 2025 Team Status: Active Member Role/Relationship Status Dates Dr. Paresh Carranza MD Primary care physician Active Start: May 10, 2025 Jairo Grande SHUTTLE FINAL INSPECTOR, SHUTTLE FINAL INSPECTOR-C Attending physician Active Start: May 10, 2025 Jairo Grande SHUTTLE FINAL INSPECTOR, SHUTTLE FINAL INSPECTOR-C Referring Provider Active S tart: May 10, [...] Active Start: May 10, 2025 Jairo Grande SHUTTLE FINAL INSPECTOR, SHUTTLE FINAL INSPECTOR-C Attending physician Active Start: May 10, 2025 Jairo Grande SHUTTLE FINAL INSPECTOR, SHUTTLE FINAL INSPECTOR-C Referring Provider Active S tart: May 10, [...] or prosecute any alcohol or drug abuse patient.[facility] the event this information is protected by the Federal Confidentiality of Alcohol and Drug Abuse Patient Records regulations: The Federal rules restrict any use of the information to criminally investigate or prosecute any alcohol or drug abuse patient.[facility] Reason for Visit (unrecogniz ed section and content) Reason Comments Cardiology Follow Up Possible broken RV lead, gen change Specialty Diagnoses / Procedures Referred By Contac t Referred To Contact Radiology Diagnoses Dyspnea, unspecified type Procedures XR CHEST PA+LAT 2 VIEWS Gladys Han [address] [place] [address] [facility] [address] [place] [address] [place] [address] Referral ID Status Reason Start Date Expiration Date V isits Requested Visits Authorized [id number] Pending Review 11/25/2023 11/24/2024 1 1 FOR [...] BE BASED ON THE PRIMARY CLINICAL RECORDS. [facility]. provides no warranty or guarantee of the accuracy or completeness of information in this document.
[2025-07-13 18:58] VITALS: BP 137/74; PULSE 76; RESP 16; TEMP 37; O2SAT 99
== END 2025-07-13 19:05 | disposition home or self-care (01) ==
PROVIDERS: Emergency Provider Emergency Medicine; PCP Family Medicine; Visit Provider Emergency Medicine
DX: M79.89 Other specified soft tissue disorders (principal); J44.9 Chronic obstructive pulmonary disease, unspecified; I25.10 Atherosclerotic heart disease of native coronary artery without angina pectoris; Z86.718 Personal history of other venous thrombosis and embolism; I10 Essential (primary) hypertension; Z99.89 Dependence on other enabling machines and devices; Z86.73 Personal history of transient ischemic attack (TIA), and cerebral infarction without residual deficits; Z95.0 Presence of cardiac pacemaker; Z95.5 Presence of coronary angioplasty implant and graft; Z79.01 Long term (current) use of anticoagulants
CPT/HCPCS: 93971; 99282

== ENCOUNTER → 2025-07-15 | Outpatient (CLI) | payer MEDICARE, OTHER, SELFPAY ==
[2025-07-15 15:14] LABS: Hematocrit 38.1 % (40-54); Hemoglobin 12.2 g/dL (13.0-16.5); Immature Granulocytes Count 0.050 X10^3/uL (0.0-0.0); Mean Corp Hgb Conc 32.0 g/dL (32-36); Mean Corpuscular Volume 96.7 fL (80-94); Mean Platelet Vol. 9.1 fl (6.2-12.0); NRBC Flagged by Analyzer 0 % (0-5); Platelet Count 373 K/mm3 (150-450); RBC Distribution Width CV 13.4 % (11.6-14.6); RBC Distribution Width SD 47.7 fl (35.1-43.9); Red Blood Count 3.94 M/mm3 (4.6-6.2); White Blood Count 8.9 K/mm3 (4.4-11.0)
[2025-07-15 15:40] LABS: Anion Gap 10 (5-15); BUN 21 mg/dL (4-19); BUN/Creat Ratio 18.1 RATIO (10-20); Calcium,Total 9.3 mg/dL (7.6-11.0); Carbon Dioxide 24.6 mmol/L (21.0-32.0); Chloride 106 mmol/L (98-108); Glucose 83 mg/dL (70-99); Potassium 4.5 mmol/L (3.3-5.1)
== END | disposition home or self-care (01) ==
LOC: MTLAB 12:38
PROVIDERS: PCP Family Medicine; Referring Provider Family Medicine; Visit Provider Family Medicine
DX: Z91.81 History of falling (principal)
CPT/HCPCS: 36415; 80048; 85025